=== PATIENT | female | born 1960 | race Hispanic/Latino ===

== ENCOUNTER 2018-08-13 17:45 | Emergency (ER) | payer MEDICAID, SELFPAY ==
[2018-08-13 17:45] VITALS: BP 135/81; PULSE 94; RESP 16; TEMP 36.8; O2SAT 97; BMI 43.4
[2018-08-13] MEDS: Mag Hydrox/Al Hydrox/Simeth 30 ML UDC PO (18:25)
[2018-08-13] MEDS: 0.9% Normal Saline 1,000 ML 1000 ML IV (18:25)
[2018-08-13] MEDS: Ondansetron 4 MG/2 ML Vial IV (18:25)
[2018-08-13 19:02] LABS: Absolute Lymphocyte Count 2.85 X10^3/ul (0.83-4.51); Absolute Neutrophil Count 4.1 X10^3/uL (2.0-7.7); Basophil# 0.02 X10^3/uL; Basophil% 0.3 % (0-1); Eosinophil# 0.27 X10^3/uL; Eosinophils% 3.4 % (0-5); Hemoglobin 14.2 g/dl (12.0-15.0); Lymphocyte # 2.85 X10^3/ul (4.0); Lymphocyte % 35.7 % (19-41); Mean Corp Hgb Conc 33.8 g/gl (32-36); Mean Corpuscular Hgb 29.7 pg (27.0-32.0); Mean Corpuscular Volume 87.9 fL (81-99); Mean Platelet Vol. 11.2 fl (6.2-12.0); Monocyte# 0.73 X10^3/uL; Monocyte% 9.1 % (0-10); Neutrophil % 51.2 % (47-70); Platelet Count 224 K/mm3 (150-450); RBC Distribution Width CV 13.9 % (11.6-14.6); RBC Distribution Width SD 44.6 fl (35.1-43.9); Red Blood Count 4.78 M/mm3 (4.2-5.4)
[2018-08-13 19:07] LABS: POSITIVE COUNT NO; POSITIVE DIFFERENTIAL NO; POSITIVE MORPHOLOGY NO
[2018-08-13 19:09] LABS: ALB/GLOB Ratio 0.8 RATIO (0.9-2.4); AST(SGOT) 16 U/L (15-37); Alanine Aminotransfer ALT/SGPT 21 U/L (13-56); Albumin, Serum 3.2 g/dL (3.2-5.0); Alkaline Phosphatase 148 U/L (45-117); Anion Gap 7 (5-15); BUN 11 mg/dL (7-18); BUN/Creat Ratio 10.3 RATIO (10-20); Calcium,Total 8.5 mg/dL (8.5-10.1); Chloride 110 mmol/L (98-107); Creatinine, Serum 1.07 mg/dL (0.55-1.02); EST Glomerular Filtration Rate 56 mL/min (>60); Est Glom Filt Rate - Afr Amer 68 mL/min (>60); Estimated Creatinine Clearance 42.67 ml/min; Globulin 4.1 g/dL (2.2-4.2); Glucose 97 mg/dL (74-106); Lipase 33 U/L (73-393); Potassium 3.8 mmol/L (3.5-5.1); Protein, Total 7.3 g/dL (6.4-8.2); Sodium Level 143 mmol/L (136-145)
[2018-08-13 19:56] VITALS: BP 120/68; PULSE 61; RESP 18; O2SAT 98
--- NOTE | 2018-09-17 06:56 | ED.DCSUM_ITS ---
- ER Visit Summary Date of Service: 08/13/18 Chief Complaint: Abdominal pain History of Present Illness: The patient is a 57 F with 3-month history of nausea vomiting, worse with foods and coffee. No fever or chills. No diarrhea or constipation. Physical Examination: She does not appear in significant distress, she has no respiratory distress with a regular rate. She has epigastric tenderness without any guarding or rebound no right upper quadrant pain. No CVA tenderness. Emergency Department Course and Treatment: Patient has an unremarkable work-up including CBC CMP. She received omeprazole and GI cocktail she is improved. We will discharge in stable condition. Disposition: Discharge stable condition Impression: [Gastritis] This note was generated with [facility] dictation software. It may contain incorrect words, spelling, and punctuation that were not noted in review of the chart prior to signing ED Disposition - Plan for ED Patient: Disposition: Home or Assisted Living Instructions: GASTRITIS (Adult) Prescriptions: Omeprazole 40 mg PO DAILY #30 capsule. Prescription Printed Referrals: Micki Seth MD [Primary Care Provider] - 3-5 Days
== END 2018-08-13 20:18 | disposition home or self-care (01) ==
PROVIDERS: Emergency Provider Emergency Medicine; Family Provider Internal Medicine; PCP Internal Medicine
DX: K29.70 Gastritis, unspecified, without bleeding (principal); R73.03 Prediabetes; F32.9 Major depressive disorder, single episode, unspecified; Z72.0 Tobacco use; Z79.899 Other long term (current) drug therapy
CPT/HCPCS: 80053; 83690; 85025; 96361; 96374; 99284; J7030; A4216; J2405

== ENCOUNTER → 2019-02-11 20:10 | Outpatient (CLI) | payer MEDICAID, SELFPAY | PROVIDERS: Family Provider Internal Medicine; PCP Internal Medicine | DX: G47.33 Obstructive sleep apnea (adult) (pediatric) (principal) | CPT/HCPCS: 95810 ==

== ENCOUNTER → 2019-04-09 20:00 | Outpatient (CLI) | payer MEDICAID, SELFPAY | PROVIDERS: Family Provider Internal Medicine; PCP Internal Medicine | DX: G47.33 Obstructive sleep apnea (adult) (pediatric) (principal) | CPT/HCPCS: 95811 ==

== ENCOUNTER 2019-04-10 08:23 | Emergency (ER) | payer MEDICAID, SELFPAY ==
[2019-04-10 08:24] VITALS: BP 128/80; PULSE 78; RESP 19; TEMP 36.6; O2SAT 97; BMI 46.8
--- NOTE | 2019-04-10 08:41 | CT_ITS ---
STUDY: CT ABDOMEN AND PELVIS WITHOUT CONTRAST REASON FOR EXAM: Female, 58 years old. Left flank pain, fever x 4 days. Prior hysterectomy, appendectomy, cholecystectomy. RADIATION DOSAGE (If Supplied By Facility): CTDIvol = ( 22.85 ) mGy, DLP = ( 1170.40 ) mGycm TECHNIQUE: Transaxial images were obtained from the dome of the diaphragm to the symphysis pubis without oral contrast, and without intravenous contrast. Sagittal and coronal images were reconstructed. Individualized dose optimization techniques were used for this CT. COMPARISON: Comparison is made with prior study dated March 24, 2015. FINDINGS: Calcified granuloma in the right lower lobe. Stable mild increased linear markings at the lung bases suggestive of linear atelectasis and/or scarring. The visualized portions of the heart are within normal limits. Normal liver. There are surgical clips in the gallbladder fossa consistent with a prior cholecystectomy. Normal spleen. Normal pancreas. Normal bilateral adrenal glands. Normal right kidney. Normal left kidney. Normal visualized stomach. Normal small intestine. There are multiple colonic diverticula consistent with diverticulosis. There are surgical clips in the region of the appendix consistent with a prior appendectomy. There is scattered atherosclerotic calcification of the abdominal aorta, without a demonstrated aneurysm. Normal inferior vena cava. Normal retroperitoneum. Normal urinary bladder. There is absence of the uterus consistent with a prior hysterectomy. There is evidence of prior anterior abdominal wall hernia repair utilizing mesh material. Mild degree of disc space narrowing at the L5-S1 level. CT/Abdomen/Pelvis without Cont IMPRESSION: No acute abnormality is seen. Electronically Signed: Kofi Venegas, at 9:58 EST , Service support ,
--- NOTE | 2019-04-10 08:42 | VDLE_ITS ---
Reason For Study: Pain Procedure LEFT Exam performed portable in ED. GSV is normal. A preliminary report was called and/or faxed CFV is compressible, spontaneous, phasic, to Fauzia. competent, and demonstrates normal augmentation. FV is compressible, spontaneous, phasic, competent and demonstrates normal augmentation. POP V is compressible, spontaneous, phasic, competent and demonstrates normal augmentation. T/P Trunk is compressible. PTV is compressible. LT PerV is compressible. Interpretation Summary There is no evidence of left lower extremity deep vein thrombosis. Left great saphenous vein appears patent and compressible segmentally. Ordering Physician: Dewey Cage Referring Physician: Leonid Rice M.D. Performed By: Delisa Jeong RVT
[2019-04-10 09:12] LABS: Absolute Lymphocyte Count 3.07 X10^3/uL (0.83-4.51); Basophil# 0.02 X10^3/uL; Basophil% 0.2 % (0-1); Eosinophil# 0.23 X10^3/uL; Eosinophils% 2.6 % (0-5); Hematocrit 43.4 % (37-47); Lymphocyte # 3.07 X10^3/ul (4.0); Lymphocyte % 34.3 % (19-41); Mean Corp Hgb Conc 32.3 g/dL (32-36); Mean Corpuscular Hgb 28.9 pg (27.0-32.0); Mean Corpuscular Volume 89.5 fL (81-99); Mean Platelet Vol. 10.7 fl (6.2-12.0); Monocyte# 0.61 X10^3/uL; Monocyte% 6.8 % (0-10); NRBC Flagged by Analyzer 0 % (0-5); Neutrophil # 4.96 X10^3/uL (2.7-7.7); Neutrophil % 55.5 % (47-70); Platelet Count 229 K/mm3 (150-450); RBC Distribution Width CV 13.4 % (11.6-14.6); RBC Distribution Width SD 43.8 fl (35.1-43.9); Red Blood Count 4.85 M/mm3 (4.2-5.4); White Blood Count 8.9 K/mm3 (4.4-11.0)
[2019-04-10 09:15] LABS: Glucose, Dipstick Normal (Normal); Ketone-Dipstick 5 mg/dl (Negative); Leukocyte Esterase-Dipstick 25 /ul (Negative); Nitrite-Dipstick Negative (Negative); Occult Blood-Urine Negative /ul (Negative); Protein-Dipstick 30 mg/dl (Negative); Specific Gravity, Urine 1.025 (1.002-1.030); Urine Urobilinogen 4 mg/dl (Normal)
[2019-04-10 09:16] LABS: Color, Urine Yellow (Yellow); Urine Bilirubin Dipstick 1 mg/dL (Negative); Urine Clarity Sl Cloudy (Clear)
[2019-04-10 09:21] LABS: Red Blood Cells-Urine 0-5 SEEN /hpf (0-5); Squamous Epithelial Cells - UA 0-5 SEEN /hpf (5-10); White Blood Cells 0-5 SEEN /hpf (0-5)
[2019-04-10 09:22] LABS: Bacteria RARE /hpf (None Seen); Calcium Oxalate Crystals Ur 1+ /hpf (<or=2+); Mucous, Urine 1+ /hpf (<or=2+)
[2019-04-10 09:24] LABS: Anion Gap 4 (5-15); BUN 12 mg/dL (7-18); BUN/Creat Ratio 11.2 RATIO (10-20); Calcium,Total 8.5 mg/dL (8.5-10.1); Chloride 111 mmol/L (98-107); Creatinine, Serum 1.07 mg/dL (0.55-1.02); EST Glomerular Filtration Rate 56 mL/min (>60); Est Glom Filt Rate - Afr Amer 68 mL/min (>60); Estimated Creatinine Clearance 42.17 ml/min; Glucose 124 mg/dL (74-106); Potassium 3.7 mmol/L (3.5-5.1); Sodium Level 139 mmol/L (136-145)
[2019-04-10] MEDS: 0.9% Normal Saline 1,000 ML 150 ML IV (09:59)
--- NOTE | 2019-04-10 10:23 | ED.DCSUM_ITS ---
- ER Visit Summary Date of Service: 04/10/19 Chief Complaint: [Left flank pain and left ankle pain] History of Present Illness: The patient is a 58 F [presents the emergency department complaint of left leg pain for about a week that she describes as painful and rates it a 9 out of 10. Patient states the pain is worse with movement. She denies any injury to her back. She denies any pain radiating down her legs. She denies any change in bowel or bladder function. Patient also complains of left ankle pain for about 5 days without any injury. She has had some chills at home and subjective fever. She denies any cough. She denies vomiting or diarrhea. She denies recent travel or surgery. Patient states that she had some blood work done on the of the month and was told that she had some kidney problems. Patient has history of asthma and history of being prediabetic. Patient has history of depression. Patient's had prior appendectomy, cholecystectomy, and hysterectomy.] Physical Examination: [HEENT-PERRLA, EOMI. Cranial nerves II through XII grossly intact. TMs clear. Mucous membranes moist. No adenopathy. Cardiovascular-regular rate and rhythm without murmur or ectopy Lungs-clear to auscultation, chest wall stable without crepitus or subcu emphysema Abdomen-normoactive bowel sounds, soft, nontender, no rebound or rigidity, no peritoneal signs. Patient does have some mild CVA tenderness on the left. Back exam-patient has no tenderness over the thoracic or lumbar spine. She has negative straight leg raises. Deep tendon reflexes are plus 2 out of 4 bilaterally at the patella and Achilles. Patient has normal 5 extension. Extremities-intact ?4, normal range of motion, normal pulses, atraumatic. Left ankle-there is no erythema or warmth. There is no ecchymosis or bruising. Patient has normal range of motion flexion extension of the ankle. She has some mild tenderness over the left calf with a positive Homans sign. No ropes or cords palpated.] Test Results: [CBC with differential obtained was normal. Chemistries unremarkable. Her BUN was 12 and creatinine 1.07. Urinalysis was normal. Patient had a venous duplex of the left lower extremity which showed no evidence for DVT. Patient is CT scan of the abdomen pelvis without contrast that showed nothing acute.] Emergency Department Course and Treatment: [] Treatment Plan: [She will be given a prescription for few [place] for severe pain. Patient advised to follow-up with her primary care physician in 5 to 7 days.] Disposition: [Discharged home in stable condition.] Impression: [Left flank pain-suspect musculoskeletal etiology Left ankle pain-etiology uncertain] This note was generated with [employer] dictation software. It may contain incorrect words, spelling, and punctuation that were not noted in review of the chart prior to signing ED Disposition - Plan for ED Patient: Referrals: Leonid Rice MD [Primary Care Provider] -
--- NOTE | 2019-04-10 10:26 | DCINST.ED_ITS ---
ED Disposition - Plan for ED Patient: Instructions: FLANK PAIN, Uncertain Cause Prescriptions: Hydrocodone Bitart/Apap 5-325 [[place] 5MG-325MG] 1 tablet PO Q4H PRN PRN 2 Days #10 tablet PRN Reason: Pain Transmission Status: Received by [facility] Referrals: Leonid Rice MD [Primary Care Provider] - 5-7 Days
--- NOTE | 2019-04-10 10:26 | ED.DEP ---
ED Disposition - Plan for ED Patient: Instructions: FLANK PAIN, Uncertain Cause Prescriptions: Hydrocodone Bitart/Apap 5-325 [[place] 5MG-325MG] 1 tablet PO Q4H PRN PRN 2 Days #10 tablet PRN Reason: Pain Transmission Status: Received by [facility] Referrals: Leonid Rice MD [Primary Care Provider] - 5-7 Days
[2019-04-10 10:31] VITALS: BP 122/70; O2SAT 98
== END 2019-04-10 10:38 | disposition home or self-care (01) ==
LOC: ED 09:11
PROVIDERS: Emergency Provider Emergency Medicine; PCP Internal Medicine
DX: R10.9 Unspecified abdominal pain (principal); M25.572 Pain in left ankle and joints of left foot; J45.909 Unspecified asthma, uncomplicated; R73.03 Prediabetes; F32.9 Major depressive disorder, single episode, unspecified; Z72.0 Tobacco use; Z79.899 Other long term (current) drug therapy; Z90.49 Acquired absence of other specified parts of digestive tract; Z90.710 Acquired absence of both cervix and uterus
CPT/HCPCS: 74176; 80048; 81001; 85025; 93971; 96360; 99284; J7030

== ENCOUNTER → 2019-04-25 10:48 | Outpatient (CLI) | payer MEDICAID, SELFPAY ==
[2019-04-10 08:24] VITALS: BMI 46.8
== END ==
PROVIDERS: PCP Internal Medicine
DX: Z46.89 Encounter for fitting and adjustment of other specified devices (principal)

== ENCOUNTER 2019-09-12 09:55 | Emergency (ER) | payer MEDICAID, SELFPAY ==
[2019-09-12 09:57] VITALS: BP 165/123; PULSE 121; RESP 18; TEMP 36.6; O2SAT 96; BMI 47.5
--- NOTE | 2019-09-12 10:27 | CT_ITS ---
STUDY: CT ABDOMEN AND PELVIS WITHOUT CONTRAST REASON FOR EXAM: Female, 58 years old. RECTAL PAIN/PRESSURE RADIATION DOSAGE (If Supplied By Facility): CTDIvol = ( 22.05 ) mGy, DLP = ( 1514.77 ) mGycm TECHNIQUE: Transaxial images were obtained from the dome of the diaphragm to the symphysis pubis without oral contrast, and without intravenous contrast. Sagittal and coronal images were reconstructed. Individualized dose optimization techniques were used for this CT. COMPARISON: Comparison is made with prior study dated April 10, 2019. FINDINGS: The visualized lung bases are unremarkable. The visualized portions of the heart are within normal limits. There is decreased attenuation of the liver consistent with steatosis. There are surgical clips in the gallbladder fossa consistent with a prior cholecystectomy. Normal spleen. Normal pancreas. Normal bilateral adrenal glands. Normal right kidney. Normal left kidney. Normal visualized stomach. Normal small intestine. There are scattered colonic diverticula consistent with diverticulosis. There are surgical clips in the region of the appendix consistent with a prior appendectomy. There is scattered atherosclerotic calcification of the abdominal aorta, without a demonstrated aneurysm. Normal inferior vena cava. Normal retroperitoneum. Normal urinary bladder. There is absence of the uterus consistent with a prior hysterectomy. Evidence of prior ventral hernia repair. Mild degree of disc space narrowing at the L5-S1 level. CT/Abdomen/Pelvis W IV Cont ONLY IMPRESSION: Fatty infiltration of the liver. Status post cholecystectomy and appendectomy. Electronically Signed: Kofi Venegas, at 12:35 EDT , Service support ,
[2019-09-12] MEDS: Morphine 4 MG/ML Syringe IV (10:46)
[2019-09-12] MEDS: Ondansetron 4 MG/2 ML Vial IV (10:46)
[2019-09-12 10:58] LABS: Mucous, Urine 0 SEEN /hpf (<or=2+)
[2019-09-12 11:02] LABS: Absolute Lymphocyte Count 3.12 X10^3/uL (0.83-4.51); Absolute Neutrophil Count 5.7 X10^3/uL (2.0-7.7); Basophil# 0.03 X10^3/uL; Basophil% 0.3 % (0-1); Eosinophil# 0.22 X10^3/uL; Eosinophils% 2.2 % (0-5); Hemoglobin 14.5 g/dL (12.0-15.0); Lymphocyte # 3.12 X10^3/ul (4.0); Lymphocyte % 31.5 % (19-41); Mean Corp Hgb Conc 32.2 g/dL (32-36); Mean Corpuscular Hgb 29.4 pg (27.0-32.0); Mean Corpuscular Volume 91.3 fL (81-99); Monocyte# 0.78 X10^3/uL; Monocyte% 7.9 % (0-10); NRBC Flagged by Analyzer 0 % (0-5); Neutrophil % 57.6 % (47-70); Platelet Count 237 K/mm3 (150-450); RBC Distribution Width CV 13.3 % (11.6-14.6); RBC Distribution Width SD 45.3 fl (35.1-43.9); Red Blood Count 4.93 M/mm3 (4.2-5.4); White Blood Count 9.9 K/mm3 (4.4-11.0)
[2019-09-12 11:24] LABS: Color, Urine Yellow (Yellow); Glucose, Dipstick Normal (Normal); Ketone-Dipstick 5 mg/dl (Negative); Leukocyte Esterase-Dipstick Negative /ul (Negative); Nitrite-Dipstick Negative (Negative); Occult Blood-Urine 10 /ul (Negative); Protein-Dipstick 15 mg/dl (Negative); Specific Gravity, Urine 1.025 (1.002-1.030); Urine Bilirubin Dipstick Negative (Negative); Urine Clarity Clear (Clear); Urine Urobilinogen 1 mg/dl (Normal)
[2019-09-12 11:28] LABS: ALB/GLOB Ratio 0.8 RATIO (0.9-2.4); AST(SGOT) 25 U/L (15-37); Alanine Aminotransfer ALT/SGPT 24 U/L (13-56); Albumin, Serum 3.4 g/dL (3.2-5.0); Alkaline Phosphatase 153 U/L (45-117); Anion Gap 5 (5-15); BUN 10 mg/dL (7-18); BUN/Creat Ratio 9.2 RATIO (10-20); Calcium,Total 8.8 mg/dL (8.5-10.1); Chloride 112 mmol/L (98-107); Creatinine, Serum 1.09 mg/dL (0.55-1.02); EST Glomerular Filtration Rate 55 mL/min (>60); Est Glom Filt Rate - Afr Amer 67 mL/min (>60); Globulin 4.2 g/dL (2.2-4.2); Glucose 146 mg/dL (74-106); Potassium 4.1 mmol/L (3.5-5.1); Protein, Total 7.6 g/dL (6.4-8.2); Sodium Level 141 mmol/L (136-145)
--- NOTE | 2019-09-12 11:48 | ED.VIS.GEN ---
History of Present Illness Chief Complaint: Other, Pain/Inj Detail of Chief Complaint: Rectal Pain Narrative: 58-year-old female with past medical history of COPD and GERD presents with concern for rectal pain. States is been present over the past 2 days. States has been sharp in nature. Denies any significant abdominal pain, nausea, vomiting. Having regular bowel movements as taking laxatives. Denies any hematochezia or melena. Denies any fever or chills. Denies any urinary symptoms or vaginal bleeding or discharge. Past Medical History - Allergies and Home Meds Allergies/Adverse Reactions: Allergies latex Allergy (Verified 09/12/19 09:59) Rash Primary Care Physician: Leonid Rice MD [Primary Care Provider] - Prior records reviewed: Yes Past Medical History: - - GERD and COPD Surgical History: appendectomy, cholecystectomy, hysterectomy Lives: With Family Smoking Status: Current every day smoker Alcohol: None Drugs: None Review of Systems General: Denies: Chills, Fever, Sweats Eyes: Denies: Visual changes - bilaterally, Diplopia ENT: Denies: Rhinorrhea, Sore throat Cardiovascular: Denies: Chest pain, Palpitations Respiratory: Denies: Dyspnea, Cough, Dyspnea on exertion Gastrointestinal: Reports: - - rectal pain. Denies: Abdominal pain, Nausea, Vomiting, Diarrhea, Melena, Hematochezia Genitourinary: Denies: Dysuria, Hematuria, Frequency Musculoskeletal: Denies: Back pain, Extremity Pain Skin: Denies: Rash, Wounds Neurological: Denies: Headache, Weakness, Numbness Physical Exam Vital Signs/Narrative: Vital Signs Temp Pulse Resp BP Pulse Ox 09/12/19 09:57 97.9 F 121 H 18 165/123 H 96 Inital Vital Signs reviewed: Yes General: Well nourished, Well developed, No Acute Distress Head: Normocephalic, Atraumatic Eyes: Perrl, EOMI ENT: Moist mucous membranes, No rhinorrhea Neck: Supple, Nontender Cardiovascular: Regular rate, Regular rhythm, No murmurs Respiratory: No distress, CTA bilaterally, Chest nontender Abdomen: Soft, Nontender, Nondistended, Normal bowel sounds Rectal: - - Tenderness to the perirectal area with multiple non-thrombosed hemmorhoids. No drainage or surrounding erythema. No rectal prolapse. Back: Nontender, Normal Inspection Extremities: Nontender, No edema Skin: Normal color, No rash Neurological: Alert, Oriented x3, Cranial nerves II-XII grossly intact, Normal Strength, Normal Sensation Psychological: Normal affect, Normal Mood Diagnostic/Tx/Re-eval Clinical Impression(s) from Imaging Studies Abdomen/Pelvis CT 09/12/19 10:27 IMPRESSION: Fatty infiltration of the liver. Status post cholecystectomy and appendectomy. Electronically Signed: Kofi Venegas, at 12:35 EDT , Service support , Laboratory Data 09/12/19 09/12/19 09/12/19 10:45 10:45 10:45 WBC 9.9 RBC 4.93 Hgb 14.5 Hct 45.0 MCV 91.3 MCH 29.4 MCHC 32.2 RDW Std Deviation 45.3 H RDW Coeff of Bhupendra 13.3 Plt Count 237 MPV 11.0 Immature Gran % (Auto) 0.500 Neut % (Auto) 57.6 Lymph % (Auto) 31.5 Coleman % (Auto) 7.9 Eos % (Auto) 2.2 Baso % (Auto) 0.3 Absolute Neuts (auto) 5.7 Absolute Lymphs (auto) 3.12 Nucleated RBC % 0 Sodium 141 Potassium 4.1 Chloride 112 H Carbon Dioxide 24.0 Anion Gap 5 BUN 10 Creatinine 1.09 H Estim Creat Clear Calc 41.40 Est GFR (MDRD) Af Amer 67 Est GFR (MDRD) Non-Af 55 L BUN/Creatinine Ratio 9.2 L Glucose 146 H Calcium 8.8 Total Bilirubin 0.30 AST 25 ALT 24 Alkaline Phosphatase 153 H Total Protein 7.6 Albumin 3.4 Globulin 4.2 Albumin/Globulin Ratio 0.8 L Urine Color Yellow Urine Clarity Clear Urine pH 5.0 Ur Specific [place] 1.025 Urine Protein 15 H Urine Glucose (UA) Normal Urine Ketones 5 H Urine Occult Blood 10 H Urine Nitrite Negative Urine Bilirubin Negative Urine Urobilinogen 1 H Ur Leukocyte Esterase Negative Urine RBC 0-5 SEEN Urine WBC 0-5 SEEN Ur Squamous Epith Cells 0-5 SEEN Urine Bacteria 2+ Urine Mucus 0 SEEN - Medical Decision Making Having mild to moderate rectal pain. On palpation of the area there is evidence of external hemorrhoids. Patient's lab work is fairly unremarkable. CT shows no acute process. Patient does follow with a medication administration professional. Patient's daughter arrived who was able to act as an intermediary helping with language barrier. They are working on whether to repeat a anoscopy or evaluate different surgical intervention. Patient will be given Anusol. She also be switched to Pepcid from Protonix given concern that this is constipating her. Advised to continue her stool softener. Asked to return for new or worsening symptoms. Patient voiced understanding as well as daughter. Discharged home in stable condition. ED Disposition - Plan for ED Patient: Disposition: Home or Assisted Living Diagnosis: Acute hemorrhoid Instructions: ED Hemorrhoids Prescriptions: Hydrocortisone Acetate Cream [Anusol Hc] 1 applic TOPICAL TID PRN PRN #1 tube PRN Reason: Rectal Discomfort Transmission Status: Pending to [facility] [address] Famotidine [Pepcid] 20 mg PO BID #20 tab Transmission Status: Pending to BRU[facility] Referrals: Leonid Rice MD [Primary Care Provider] -
[2019-09-12 11:49] LABS: Bacteria 2+ /hpf (None Seen); Red Blood Cells-Urine 0-5 SEEN /hpf (0-5); Squamous Epithelial Cells - UA 0-5 SEEN /hpf (5-10); White Blood Cells 0-5 SEEN /hpf (0-5)
[2019-09-12 12:49] VITALS: BP 126/84; PULSE 73; RESP 16; O2SAT 96
== END 2019-09-12 12:54 | disposition home or self-care (01) ==
PROVIDERS: Emergency Provider Emergency Medicine; PCP Internal Medicine
DX: K64.4 Residual hemorrhoidal skin tags (principal); J44.9 Chronic obstructive pulmonary disease, unspecified; K21.9 Gastro-esophageal reflux disease without esophagitis; F17.200 Nicotine dependence, unspecified, uncomplicated; Z91.040 Latex allergy status; Z79.899 Other long term (current) drug therapy
CPT/HCPCS: 74177; 80053; 81001; 85025; 96374; 96375; 99283; Q9967; J2405

== ENCOUNTER 2019-09-28 16:38 | Emergency (ER) | payer MEDICAID, SELFPAY ==
[2019-09-28 16:41] VITALS: BP 135/96; PULSE 92; RESP 18; TEMP 36.6; O2SAT 96; BMI 48.4
--- NOTE | 2019-09-28 16:50 | EKG12_ITS ---
Test Reason : LEFT-SIDED PAIN Blood Pressure : / mmHG Vent. Rate : 084 BPM Atrial Rate : 084 BPM P-R Int : 162 ms QRS Dur : 086 ms QT Int : 380 ms P-R-T Axes : 039 000 041 degrees QTc Int : 449 ms Normal sinus rhythm Normal ECG Confirmed by EULALIA MCCOY, DARRION ([id number]), video news editor FABIENNE PINEDA ([id number]) on 10/01/2019 9:27:26 AM Referred By: FREDRICK Confirmed By:DARRION ESTEBAN MD
--- NOTE | 2019-09-28 16:52 | ED.VIS.GEN ---
History of Present Illness Chief Complaint: Chest Pain Detail of Chief Complaint: Left arm pain, left lateral chest pain Informant: Patient Onset: Days - 3 to 4 days Context: Gradual Onset Timing: Waxes and wanes Current Severity: Moderate Maximum Severity: Moderate Narrative: Patient presents with a 3 to 4-day history of pain throughout her left arm and on the left lateral side of her chest. She denies any known injury. She denies shortness of breath or cough. She is right-hand dominant. No fevers or chills. - Past Medical History (1) Asthma Status: Chronic (2) Anxiety and depression Status: Chronic Past Medical History - Allergies and Home Meds Allergies/Adverse Reactions: Allergies latex Allergy (Verified 09/28/19 16:43) Rash Primary Care Physician: Leonid Rice MD [Primary Care Provider] - Surgical History: appendectomy, cholecystectomy, hysterectomy Lives: Alone Smoking Status: Current every day smoker Review of Systems General: Denies: Chills, Fever Eyes: Denies: Visual changes - bilaterally ENT: Denies: Bilateral ear pain Cardiovascular: Reports: Chest pain Respiratory: Denies: Dyspnea, Cough Gastrointestinal: Denies: Abdominal pain, Nausea, Vomiting, Diarrhea Genitourinary: Denies: Dysuria Musculoskeletal: Reports: Extremity Pain. Denies: Swelling Skin: Denies: Rash Neurological: Denies: Weakness, Parasthesia, Numbness Hematologic: Denies: Easy bruising, Easy bleeding Allergy: Denies: Uticaria Physical Exam Vital Signs/Narrative: Vital Signs Temp Pulse Resp BP Pulse Ox 09/28/19 16:41 97.9 F 92 18 135/96 H 96 Inital Vital Signs reviewed: Yes General: Well nourished, Well developed Head: Normocephalic ENT: Moist mucous membranes Neck: Supple Cardiovascular: Regular rate, Regular rhythm Respiratory: No distress, CTA bilaterally, Chest tenderness - Reproducible chest wall tenderness of the left lateral chest wall. No overlying skin changes. No crepitus. Abdomen: Soft, Nontender Extremities: - - Diffuse muscular tenderness throughout the left upper extremity. No significant edema. Strong distal pulses. Strong hand grasp. No erythema or overlying skin change. Skin: Normal color Neurological: Alert, Oriented x3, Normal Strength, Normal Sensation Psychological: Normal affect Diagnostic/Tx/Re-eval Impressions Chest X-Ray 09/28/19 17:50 IMPRESSION: Mild bilateral lower lobe pulmonary edema Electronically Signed: Mendel Hickey MD at 18:32 EDT , Service support , Forearm X-Ray 09/28/19 17:50 IMPRESSION: 1. small cortical spur of the olecranon process Electronically Signed: Mendel Hickey MD at 18:34 EDT , Service support , Humerus X-Ray 09/28/19 17:50 IMPRESSION: 1. Normal x-ray examination of the humerus. 2. The glenohumeral articulation is moderate narrowed. Electronically Signed: Mendel Hickey MD at 18:33 EDT , Service support , 09/28/19 17:50 Chest 1 View (Portable) [RAD] Stat Forearm 2 Views [RAD] Stat Humerus min 2 Views [RAD] Stat Laboratory Results 09/28/19 09/28/19 09/28/19 16:57 16:57 16:57 WBC 9.9 RBC 4.49 Hgb 13.4 Hct 40.9 MCV 91.1 MCH 29.8 MCHC 32.8 RDW Std Deviation 44.3 H RDW Coeff of Bhupendra 13.5 Plt Count 214 MPV 10.5 Immature Gran % (Auto) 0.500 Neut % (Auto) 57.9 Lymph % (Auto) 29.8 [place] % (Auto) 8.5 Eos % (Auto) 2.9 Baso % (Auto) 0.4 Absolute Neuts (auto) 5.8 Absolute Lymphs (auto) 2.96 Nucleated RBC % 0 D-Dimer Quant (PE/DVT) Sodium 141 Potassium 3.5 Chloride 110 H Carbon Dioxide 24.0 Anion Gap 7 BUN 12 Creatinine 1.13 H Estim Creat Clear Calc 39.93 Est GFR (MDRD) Af Amer 64 Est GFR (MDRD) Non-Af 53 L BUN/Creatinine Ratio 10.6 Glucose 131 H Calcium 8.5 Total Creatine Kinase 84 Troponin I < 0.015 09/28/19 17:15 WBC RBC Hgb Hct MCV MCH MCHC RDW Std Deviation RDW Coeff of Bhupendra Plt Count MPV Immature Gran % (Auto) Neut % (Auto) Lymph % (Auto) [place] % (Auto) Eos % (Auto) Baso % (Auto) Absolute Neuts (auto) Absolute Lymphs (auto) Nucleated RBC % D-Dimer Quant (PE/DVT) 0.38 Sodium Potassium Chloride Carbon Dioxide Anion Gap BUN Creatinine Estim Creat Clear Calc Est GFR (MDRD) Af Amer Est GFR (MDRD) Non-Af BUN/Creatinine Ratio Glucose Calcium Total Creatine Kinase Troponin I - EKG Initial EKG Interpretation: Sinus Rhythm - Sinus 84 with no acute ischemia. - Medical Decision Making Patient was given morphine and Zofran on arrival for pain. On repeat evaluation she is resting comfortably. Test results are discussed with her. Patient has reproducible tenderness over the left lateral chest and throughout her left arm. My suspicion is this is musculoskeletal in nature. Cardiac enzymes and d-dimer are both negative despite 3 to 4 days of pain. She be given anti-inflammatories will follow-up with her doctor on Monday as scheduled. ED Disposition - Plan for ED Patient: Disposition: Home or Assisted Living Diagnosis: Chest wall pain, Musculoskeletal arm pain Instructions: ED Strain Chest Wall Prescriptions: Naproxen [Naprosyn] 500 mg PO BID PRN #14 tab PRN Reason: Pain Score 4-10/10 Transmission Status: Pending to [facility] Referrals: Leonid Rice MD [Primary Care Provider] - Keep Sangeeta appointment
[2019-09-28 17:13] LABS: Absolute Lymphocyte Count 2.96 X10^3/uL (0.83-4.51); Absolute Neutrophil Count 5.8 X10^3/uL (2.0-7.7); Basophil# 0.04 X10^3/uL; Basophil% 0.4 % (0-1); Eosinophil# 0.29 X10^3/uL; Eosinophils% 2.9 % (0-5); Hematocrit 40.9 % (37-47); Hemoglobin 13.4 g/dL (12.0-15.0); Lymphocyte # 2.96 X10^3/ul (4.0); Lymphocyte % 29.8 % (19-41); Mean Corp Hgb Conc 32.8 g/dL (32-36); Mean Corpuscular Hgb 29.8 pg (27.0-32.0); Mean Corpuscular Volume 91.1 fL (81-99); Mean Platelet Vol. 10.5 fl (6.2-12.0); Monocyte# 0.84 X10^3/uL; Monocyte% 8.5 % (0-10); NRBC Flagged by Analyzer 0 % (0-5); Neutrophil # 5.76 X10^3/uL (2.7-7.7); Neutrophil % 57.9 % (47-70); Platelet Count 214 K/mm3 (150-450); RBC Distribution Width CV 13.5 % (11.6-14.6); RBC Distribution Width SD 44.3 fl (35.1-43.9); Red Blood Count 4.49 M/mm3 (4.2-5.4); White Blood Count 9.9 K/mm3 (4.4-11.0)
[2019-09-28 17:31] LABS: Anion Gap 7 (5-15); BUN 12 mg/dL (7-18); BUN/Creat Ratio 10.6 RATIO (10-20); Calcium,Total 8.5 mg/dL (8.5-10.1); Chloride 110 mmol/L (98-107); Creatinine, Serum 1.13 mg/dL (0.55-1.02); EST Glomerular Filtration Rate 53 mL/min (>60); Est Glom Filt Rate - Afr Amer 64 mL/min (>60); Estimated Creatinine Clearance 39.93 ml/min; Glucose 131 mg/dL (74-106); Potassium 3.5 mmol/L (3.5-5.1); Sodium Level 141 mmol/L (136-145)
[2019-09-28] MEDS: Ondansetron 4 MG/2 ML Vial IV (17:33)
[2019-09-28] MEDS: 0.9% Normal Saline 1,000 ML 150 ML IV (17:33)
[2019-09-28] MEDS: Morphine 4 MG/ML Syringe IV (17:33)
[2019-09-28 17:36] LABS: CPK Total, Creatine Kinase 84 U/L (26-192)
[2019-09-28 17:41] LABS: D-Dimer Quantitative (DVT/PE) 0.38 FEU/ug/m (0.27-0.49)
--- NOTE | 2019-09-28 17:50 | RAD_ITS ---
STUDY: X-RAY - LEFT HUMERUS REASON FOR EXAM: Female, 58 years old. Left arm pain x 4 days. Denies injury. TECHNIQUE: 2 view(s) of the humerus. COMPARISON: None. FINDINGS: Normal visualized humerus. There is no demonstrated fracture or osseous destructive process. The glenohumeral articulation is moderately narrowed. There is no demonstrated soft tissue abnormality. RAD/Humerus min 2 Views IMPRESSION: 1. Normal x-ray examination of the humerus. 2. The glenohumeral articulation is moderate narrowed. Electronically Signed: Mendel Hickey MD at 18:33 EDT , Service support ,
--- NOTE | 2019-09-28 17:50 | RAD_ITS ---
STUDY: X-RAY CHEST REASON FOR EXAM: Female, 58 years old. Left arm and breast pain x 4 days. Denies injury. TECHNIQUE: Single AP portable view of the chest. COMPARISON: March 24, 2015 FINDINGS: Mild pulmonary edema is seen in the bilateral lower lobes. No visualized consolidation. There is no demonstrated pleural abnormality. Normal size heart. Stable visualized osseous structures. RAD/Chest 1 View (Portable) IMPRESSION: Mild bilateral lower lobe pulmonary edema Electronically Signed: Mendel Hickey MD at 18:32 EDT , Service support ,
--- NOTE | 2019-09-28 17:50 | RAD_ITS ---
STUDY: X-RAY - LEFT RADIUS AND ULNA REASON FOR EXAM: Female, 58 years old. Left arm pain x 4 days. Denies injury. TECHNIQUE: 2 view(s) of the forearm. COMPARISON: None. FINDINGS: There is no demonstrated soft tissue swelling. Normal visualized radius. Normal visualized ulna. There is no demonstrated acute fracture. A small cortical spur of the olecranon process is present. RAD/Forearm 2 Views IMPRESSION: 1. small cortical spur of the olecranon process Electronically Signed: Mendel Hickey MD at 18:34 EDT , Service support ,
[2019-09-28 18:46] VITALS: BP 118/83; PULSE 69; PULSE 72; RESP 15; RESP 18; O2SAT 95
== END 2019-09-28 18:49 | disposition home or self-care (01) ==
PROVIDERS: Emergency Provider Emergency Medicine; PCP Internal Medicine
DX: R07.89 Other chest pain (principal); M79.602 Pain in left arm; J45.909 Unspecified asthma, uncomplicated; F32.9 Major depressive disorder, single episode, unspecified; F41.9 Anxiety disorder, unspecified; F17.200 Nicotine dependence, unspecified, uncomplicated; Z79.899 Other long term (current) drug therapy; Z90.49 Acquired absence of other specified parts of digestive tract; Z90.710 Acquired absence of both cervix and uterus
CPT/HCPCS: 36415; 71045; 73060; 73090; 80048; 82550; 84484; 85025; 85379; 93005; 96361; 96374; 96375; 99284; J7030; A4216; J2405

== ENCOUNTER 2020-07-28 14:51 | Emergency (ER) | payer MEDICAID, SELFPAY ==
[2020-07-28 14:51] VITALS: BP 147/82; PULSE 106; RESP 15; TEMP 35.7; O2SAT 96; BMI 46.8
--- NOTE | 2020-07-28 14:54 | RAD_ITS ---
STUDY: X-RAY - LEFT SCAPULA REASON FOR EXAM: Female, 59 years old. INJURY TECHNIQUE: 3 view(s) of the scapula were obtained. COMPARISON: None. FINDINGS: Unusual appearance to the body the scapula possibly from fracture. Correlation with CT would be useful Normal glenohumeral articulation. Normal acromioclavicular joint. Normal visualized humeral head. Normal visualized pulmonary apex. RAD/Scapula IMPRESSION: Questional fracture the body the scapula and correlation with CT would be useful. Electronically Signed: Kentrell Altman MD at 15:52 EDT Tel , Service support ,
--- NOTE | 2020-07-28 15:40 | EDS_ITS ---
HPI History of Present Illness Chief Complaint: Upper Extremity Injury Narrative Narrative: 59-year-old female presents with left posterior shoulder pain that is been present for approximately 1 month. States that she is visiting her daughter in [place] when she slipped off a step and went to catch herself. States she felt like she strained the back of her shoulder. Has been seen at [facility] with a negative x-ray. Has been taking Tylenol at home without relief. Denies any other injury to this area. Has an appointment with her primary care physician in 2 days. [facility] Medical History Anxiety Asthma Depression GERD (gastroesophageal reflux disease) Home Medications alprazolam [Xanax] 1 mg PO QHS 06/06/14 [History Last Taken 03/23/15] fluoxetine 40 mg PO QHS 03/24/15 [History Last Taken 03/23/15] topiramate [Topamax] 25 mg PO QHS 03/24/15 [History Last Taken 03/23/15] trazodone 200 mg PO QHS 03/24/15 [History Last Taken 03/23/15] albuterol sulfate [ProAir HFA] 2 puff INHALATION Q4H PRN PRN #1 inhaler 03/25/15 [Rx Last Taken Unknown] budesonide [Pulmicort Flexhaler] 1 puff INHALATION BID #1 inhaler 03/25/15 [Rx Last Taken Unknown] omeprazole 20 mg PO DAILY #30 capsule 03/25/15 [Rx Last Taken Unknown] omeprazole 40 mg PO DAILY #30 capsule. 08/13/18 [Rx Last Taken Unknown] famotidine 20 mg PO BID #20 tab 09/12/19 [Rx Last Taken Unknown] hydrocortisone 1 applic TOPICAL TID PRN PRN #1 tube 09/12/19 [Rx Last Taken Unknown] naproxen 500 mg PO BID PRN #14 tab 09/28/19 [Rx Last Taken Unknown] lidocaine [Lidoderm] 1 patch TOPICAL DAILY #7 ea 07/28/20 [Rx Last Taken Unknown] naproxen 500 mg PO BID PRN #14 tab 07/28/20 [Rx Last Taken Unknown] Allergy/AdvReac Type Severity Reaction Status Date / Time latex Allergy Rash Verified 09/28/19 16:43 Social History Smoking Status: Former smoker ROS ROS ED Constitutional Constitutional ED: Denies chills, fever(s) or sweats Eyes Eyes: Denies blurry vision, change in vision or diplopia ENT ENT ED: Denies rhinorrhea or sore throat Cardiovascular Cardiovascular: Denies chest pain, orthopnea, palpitations or racing heartbeat Respiratory/Chest Respiratory/Chest: Denies cough, dyspnea, dyspnea on exertion, orthopnea or sputum Gastrointestinal Gastrointestinal: Denies abdominal pain, constipation, diarrhea, melena, nausea or vomiting Genitourinary Genitourinary ED: Denies dysuria, hematuria or urinary frequency Musculoskeletal Musculoskeletal: Reports other Details: left shoulder pain ; Denies arthralgias, myalgias or neck pain Integumentary Denies rash Neurologic Neurologic: Denies headache(s), paresthesias or weakness Psychiatric Psychiatric: Denies anxiety or depression Hematologic/Lymphatic Hematologic/Lymphatic: Denies easy bleeding or easy bruising Allergic/Immunologic Allergic/Immunologic ED: Denies mouth swelling or tongue swelling EXAM Physical Exam Const Vital Signs: 07/28/20 14:51 Temperature 96.3 F L Temperature Source Temporal Pulse Rate 106 H Respiratory Rate 15 Blood Pressure 147/82 H Blood Pressure Mean 103 Pulse Ox 96 Oxygen Delivery Method Room Air Positive well nourished and well developed General Appearance ED: well developed HEENT Reports TM's clear and moist mucous membranes normocephalic and atraumatic Tympanic Membrane ED: Yes TM's clear Eyes PERRL and EOMs intact bilaterally Neck no lymphadenopathy, supple and no JVD Chest Wall inspection of chest normal Resp normal respiratory effort and clear to auscultation bilaterally Cardio regular rate, S1 normal heart sound, S2 normal heart sound and no murmurs Peripheral Pulses: pulses 2+ throughout GI soft to palpation, non-tender and non-distended Back/Spine no CVA tenderness and no thoracic nor lumbar tenderness Extremity normal to inspection Extremity Narrative: Tenderness to palpation over the posterior shoulder including the scapular region. No overlying skin changes. Strong and palpable radial and brachial pulses. Sensation intact. General Extremety ED: Negative for edema or tenderness General Extremity: Negative for edema Neuro oriented x3, CN's II-XII intact bilaterally and no sensory deficits noted Sensorium / Orientation: alert Motor Exam: strength 5/5 throughout Psych mental status grossly normal Skin no rashes or lesions noted MDM MDM MDM Narrative Medical decision making narrative: Patient appears well nontoxic. Given Toradol and Lidoderm patch for her pain. Scapular x-ray ordered in triage which showed a questionable fracture. CT of the chest was done which confirms no fracture. Patient be given Lidoderm and Naprosyn for home. Patient has appointment in 2 days with her primary care physician. Advised on possible PT as an outpatient. Stable at time of discharge. Lab Data Attestation: I reviewed the patient's lab results. Discharge Plan Triage Chief Complaint: Upper Extremity Injury ED Provider: Dread Hall Dx/Rx/DC Orders Clinical Impression: Left shoulder strain Instructions: ED Shoulder Pain, Uncertain Cause Prescriptions: New naproxen 500 mg tablet 500 mg PO BID PRN Qty: 14 RF: 0 lidocaine [Lidoderm] 5 % adhesive patch,medicated 1 patch topical DAILY Qty: 7 RF: 0 No Action alprazolam [Xanax] 2 MG tablet 1 mg PO QHS RF: 0 topiramate [Topamax] 25 MG tablet 25 mg PO QHS RF: 0 fluoxetine 20 MG capsule 40 mg PO QHS RF: 0 trazodone 100 MG tablet 200 mg PO QHS RF: 0 budesonide [Pulmicort Flexhaler] 1 PUFF inhaler 1 puff inhalation BID Qty: 1 RF: 0 omeprazole 20 MG capsule 20 mg PO DAILY Qty: 30 RF: 0 albuterol sulfate [ProAir HFA] 1 PUFF inhaler 2 puff inhalation Q4H PRN PRN (Reason: Sob &/Or Wheezing) Qty: 1 RF: 0 omeprazole 40 MG capsule,delayed release(DR/EC) 40 mg PO DAILY Qty: 30 RF: 0 hydrocortisone 1 APPLIC cream with perineal applicator 1 applic topical TID PRN PRN (Reason: Rectal Discomfort) Qty: 1 RF: 0 famotidine 20 MG tablet 20 mg PO BID Qty: 20 RF: 0 naproxen 500 MG tablet 500 mg PO BID PRN (Reason: Pain Score 4-10/10) Qty: 14 RF: 0 Primary Care Provider: Leonid Rice Referrals: Leonid Rice MD [Primary Care Provider] - 2 Days Disposition Disposition: Home, self care
[2020-07-28] MEDS: Lidocaine 5% Patch 1 PATCH TOPICAL (16:08)
[2020-07-28] MEDS: Ketorolac 15 MG/ML Vial IM (16:08)
--- NOTE | 2020-07-28 16:28 | CT_ITS ---
STUDY: CT CHEST WITHOUT CONTRAST REASON FOR EXAM: Female, 59 years old. left scapula pain RADIATION DOSAGE (If Supplied By Facility): CTDIvol = ( 19.65 ) mGy, DLP = ( 633.48 ) mGycm TECHNIQUE: Transaxial imaging was performed without the administration of intravenous contrast material. Individualized dose optimization techniques were used for this CT. COMPARISON: None. FINDINGS: The lungs are normal. There is no demonstrated pleural abnormality. Normal heart and pericardium. Normal mediastinum. Normal hilar regions. Normal unenhanced pulmonary arteries. Normal aorta arch and descending thoracic aorta. Normal osseous structures. There is no demonstrated abnormality of the visualized upper abdomen. CT/Chest without Contrast IMPRESSION: Normal unenhanced CT Chest examination. No left scapular fracture. Electronically Signed: Kentrell Altman MD at 17:03 EDT Tel , Service support ,
[2020-07-28 17:36] VITALS: BP 133/74; PULSE 86; RESP 16; O2SAT 95
== END 2020-07-28 17:37 | disposition home or self-care (01) ==
PROVIDERS: Emergency Provider Emergency Medicine; PCP Internal Medicine
DX: S46.912A Strain of unspecified muscle, fascia and tendon at shoulder and upper arm level, left arm, initial encounter (principal); W18.40XA Slipping, tripping and stumbling without falling, unspecified, initial encounter; Y93.9 Activity, unspecified; Y92.9 Unspecified place or not applicable; Y99.9 Unspecified external cause status; J45.909 Unspecified asthma, uncomplicated; K21.9 Gastro-esophageal reflux disease without esophagitis; F32.9 Major depressive disorder, single episode, unspecified; F41.9 Anxiety disorder, unspecified; Z79.51 Long term (current) use of inhaled steroids; Z79.899 Other long term (current) drug therapy; Z87.891 Personal history of nicotine dependence
CPT/HCPCS: 71250; 73010; 96372; 99282

== ENCOUNTER 2020-09-02 21:53 | Emergency (ER) | payer MEDICAID, SELFPAY ==
[2020-09-02 21:54] VITALS: BP 135/69; PULSE 84; RESP 18; TEMP 36.2; O2SAT 96; BMI 40.7
--- NOTE | 2020-09-02 21:57 | RAD_ITS ---
HISTORY: PAIN EXAMINATION/TECHNIQUE: XR Shoulder Min 2 Views: COMPARISON: None FINDINGS: BONES/JOINTS: No acute fracture or dislocation. Mild degenerative changes at the acromioclavicular joint. No sclerotic or destructive changes observed. SOFT TISSUES: No soft tissue swelling or gas. No radiopaque foreign body. RAD/Shoulder min 2 Views IMPRESSION: Degenerative changes without acute bony abnormality. at 2307 Reported and signed by: Ha Patel MD Electronically Signed: Ha Patel MD at 23:06 EDT Tel , Service support ,
--- NOTE | 2020-09-02 21:58 | RAD_ITS ---
HISTORY: PAIN COMPARISON: None FINDINGS: # of images incl. paperwork: 3 XR Elbow 2 Views: 3 views SOFT TISSUES: There is no displacement of the anterior or posterior fat pads. No radiopaque foreign body. BONES: No acute fracture or subluxation. Small osteophytes at the olecranon process and lateral radial head. JOINTS: Preservation of the joint spaces. RAD/Elbow min 3 Views IMPRESSION: No acute bony injury. at 2305 Reported and signed by: Ha Patel MD Electronically Signed: Ha Patel MD at 23:04 EDT Tel , Service support ,
--- NOTE | 2020-09-02 23:30 | EDS_ITS ---
HPI History of Present Illness HPI Narrative: [id number] presents with left shoulder and elbow pain for the past couple months. States that injury while she is in [place] when she was pulling stuff out of a dryer. Here with her friend that is translating. Patient does speak Citizen [place] also. Denies any new injuries. States all her PCP Dr. Rice was placed on the medication that she cannot recall however she stopped taking it. She is going through physical therapy due to pain she stopped going. She has a follow-up with the nurse practitioner in 5 days. She was not referred to orthopedics. Denies any previous similar incidents in the past. Denies history of gastric ulcers or kidney injury. Chief Complaint: Upper Extremity Injury Informant: patient and friend Narrative Prior similar symptoms: No PFSH PFSH Medical History Anxiety Asthma Depression GERD (gastroesophageal reflux disease) Home Medications alprazolam [Xanax] 1 mg PO QHS 06/06/14 [History Last Taken 03/23/15] fluoxetine 40 mg PO QHS 03/24/15 [History Last Taken 03/23/15] topiramate [Topamax] 25 mg PO QHS 03/24/15 [History Last Taken 03/23/15] trazodone 200 mg PO QHS 03/24/15 [History Last Taken 03/23/15] albuterol sulfate [ProAir HFA] 2 puff INHALATION Q4H PRN PRN #1 inhaler 03/25/15 [Rx Last Taken Unknown] budesonide [Pulmicort Flexhaler] 1 puff INHALATION BID #1 inhaler 03/25/15 [Rx Last Taken Unknown] omeprazole 20 mg PO DAILY #30 capsule 03/25/15 [Rx Last Taken Unknown] omeprazole 40 mg PO DAILY #30 capsule. 08/13/18 [Rx Last Taken Unknown] famotidine 20 mg PO BID #20 tab 09/12/19 [Rx Last Taken Unknown] hydrocortisone 1 applic TOPICAL TID PRN PRN #1 tube 09/12/19 [Rx Last Taken Unknown] naproxen 500 mg PO BID PRN #14 tab 09/28/19 [Rx Last Taken Unknown] lidocaine [Lidoderm] 1 patch TOPICAL DAILY #7 ea 07/28/20 [Rx Last Taken Unknown] naproxen 500 mg PO BID PRN #14 tab 07/28/20 [Rx Last Taken Unknown] ibuprofen 600 mg PO Q6H PRN PRN #20 tab 09/02/20 [Rx Last Taken Unknown] Allergy/AdvReac Type Severity Reaction Status Date / Time latex Allergy Rash Verified 09/02/20 21:56 Social History Smoking Status: Current every day smoker tobacco type: cigarettes ROS ROS ED Constitutional Constitutional ED: Denies chills, fever(s) or sweats Eyes Eyes: Denies change in vision ENT ENT ED: Denies dysphagia or sore throat Cardiovascular Cardiovascular: Denies chest pain, leg edema, palpitations or racing heartbeat Respiratory/Chest Respiratory/Chest: Denies cough, dyspnea or dyspnea on exertion Gastrointestinal Gastrointestinal: Denies abdominal pain, diarrhea, nausea or vomiting Genitourinary Genitourinary ED: Denies dysuria, hematuria or urinary frequency Musculoskeletal Musculoskeletal: Reports other Details: Left shoulder and elbow pain ; Denies back pain, extremity pain or neck pain Integumentary Denies rash or wounds Neurologic Neurologic: Denies headache(s), paresthesias or weakness EXAM Physical Exam Const Vital Signs: 09/02/20 21:54 Temperature 97.1 F L Temperature Source Temporal Pulse Rate 84 Respiratory Rate 18 Blood Pressure 135/69 H Blood Pressure Mean 91 Pulse Ox 96 Oxygen Delivery Method Room Air Positive well nourished and well developed General Appearance ED: well developed and NAD HEENT Reports moist mucous membranes normocephalic and atraumatic Eyes PERRL, EOMs intact bilaterally and conjunctivae normal General Eye ED: Yes normal appearance of both eyes Neck no lymphadenopathy and supple General: Negative for tenderness Chest Wall Chest: Negative for tenderness Resp normal respiratory effort and normal air movement Effort and Inspection: symmetric chest movement; Negative for respiratory distress Cardio regular rate, regular rhythm and no murmurs Peripheral Pulses: pulses 2+ throughout GI normal to inspection, nondistended, normoactive bowel sounds and non-tender Palpation: Negative for guarding or rebound tenderness present Back/Spine no CVA tenderness and no thoracic nor lumbar tenderness Extremity Extremity Narrative: Left upper extremity: Patient had active range of motion however pain with movement of the shoulder and the elbow. There is no redness or swelling. No deformities. Skin intact. Neurovascular intact distally. General Extremety ED: Negative for edema or tenderness General Extremity: Negative for edema Neuro oriented x3 and no sensory deficits noted Sensorium / Orientation: awake and alert Skin no rashes or lesions noted and no wounds MDM MDM MDM Narrative Medical decision making narrative: Triage orders obtain a shoulder and elbow film reviewed by myself also read by radiology with no acute fracture dislocation. Degenerative changes noted of the shoulder olecranon spur noted at the elbow. 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 Correlate with arthritic type pain. Discussed with her she did have an injury while pulling things out of the laundry possible rotator cuff injury. She will be given injection of NSAIDs in the ED along with the prescription for NSAIDs. She is given orthopedic follow-up. All questions were answered. Radiography Diagnostic Testing: Radiology Impression Shoulder X-Ray 09/02/20 21:57 IMPRESSION: Degenerative changes without acute bony abnormality. at 2307 Reported and signed by: Ha Patel MD Electronically Signed: Ha Patel MD at 23:06 EDT Tel , Service support , Elbow X-Ray 09/02/20 21:58 IMPRESSION: No acute bony injury. at 2305 Reported and signed by: Ha Patel MD Electronically Signed: Ha Patel MD at 23:04 EDT Tel , Service support , Discharge Plan Triage Chief Complaint: Upper Extremity Injury ED Provider: Ronak Marte Dx/Rx/DC Orders Clinical Impression: Left shoulder strain, Elbow pain, left Instructions: ED Arthralgia, ED Shoulder Pain, Uncertain Cause Prescriptions: New ibuprofen 600 mg tablet 600 mg PO Q6H PRN PRN (Reason: pain) Qty: 20 RF: 0 No Action alprazolam [Xanax] 2 MG tablet 1 mg PO QHS RF: 0 topiramate [Topamax] 25 MG tablet 25 mg PO QHS RF: 0 fluoxetine 20 MG capsule 40 mg PO QHS RF: 0 trazodone 100 MG tablet 200 mg PO QHS RF: 0 budesonide [Pulmicort Flexhaler] 1 PUFF inhaler 1 puff inhalation BID Qty: 1 RF: 0 omeprazole 20 MG capsule 20 mg PO DAILY Qty: 30 RF: 0 albuterol sulfate [ProAir HFA] 1 PUFF inhaler 2 puff inhalation Q4H PRN PRN (Reason: Sob &/Or Wheezing) Qty: 1 RF: 0 omeprazole 40 MG capsule,delayed release(DR/EC) 40 mg PO DAILY Qty: 30 RF: 0 hydrocortisone 1 APPLIC cream with perineal applicator 1 applic topical TID PRN PRN (Reason: Rectal Discomfort) Qty: 1 RF: 0 famotidine 20 MG tablet 20 mg PO BID Qty: 20 RF: 0 naproxen 500 MG tablet 500 mg PO BID PRN (Reason: Pain Score 4-10/10) Qty: 14 RF: 0 naproxen 500 mg tablet 500 mg PO BID PRN Qty: 14 RF: 0 lidocaine [Lidoderm] 5 % adhesive patch,medicated 1 patch topical DAILY Qty: 7 RF: 0 Primary Care Provider: Leonid Rice Referrals: Andreas Loya DO [STAFF PHYSICIAN] - 1 Week Leonid Rice MD [Primary Care Provider] - [facility] appointment Disposition Disposition: Home, Self Care
[2020-09-02] MEDS: Ketorolac 30 MG/ML Syringe IM (23:43)
[2020-09-02 23:52] VITALS: RESP 16
== END 2020-09-02 23:53 | disposition home or self-care (01) ==
PROVIDERS: Emergency Provider Emergency Medicine; PCP Internal Medicine
DX: S46.912A Strain of unspecified muscle, fascia and tendon at shoulder and upper arm level, left arm, initial encounter (principal); M25.522 Pain in left elbow; J45.909 Unspecified asthma, uncomplicated; K21.9 Gastro-esophageal reflux disease without esophagitis; F32.9 Major depressive disorder, single episode, unspecified; F41.9 Anxiety disorder, unspecified; F17.210 Nicotine dependence, cigarettes, uncomplicated; Z79.1 Long term (current) use of non-steroidal anti-inflammatories (NSAID); Z79.51 Long term (current) use of inhaled steroids; Z79.899 Other long term (current) drug therapy
CPT/HCPCS: 73030; 73070; 73080; 96372; 99282

== ENCOUNTER 2020-10-25 14:15 | Emergency (ER) | payer MEDICAID, SELFPAY ==
[2020-09-23 09:59] VITALS: BMI 45.7
[2020-10-25 14:16] VITALS: BP 140/81; PULSE 85; RESP 16; TEMP 36.2; O2SAT 99; BMI 39.0
[2020-10-25] MEDS: Clindamycin HCl 150 MG Capsule 300 MG PO (15:51)
[2020-10-25] MEDS: Lidocaine 2% /Epi 1:100 (20ml) 20 ML VIAL 10 ML INFILT (15:52)
--- NOTE | 2020-10-25 16:22 | EDS_ITS ---
HPI History of Present Illness Chief Complaint: Abscess Narrative Narrative: Patient is a 59-year-old female who presents with complaint of left gluteal abscess. She states she recently found out she is diabetic and has had redness swelling and pain to the area for approximately 1 week. She states her daughter was able to open and squeeze some of the material out but the area still swollen and painful and secondary to this presents for evaluation. [facility] Medical History Anxiety Asthma Depression GERD (gastroesophageal reflux disease) Home Medications alprazolam [Xanax] 1 mg PO QHS 06/06/14 [History Last Taken 03/23/15] fluoxetine 40 mg PO QHS 03/24/15 [History Last Taken 03/23/15] topiramate [Topamax] 25 mg PO QHS 03/24/15 [History Last Taken 03/23/15] trazodone 200 mg PO QHS 03/24/15 [History Last Taken 03/23/15] albuterol sulfate [ProAir HFA] 2 puff INHALATION Q4H PRN PRN #1 inhaler 03/25/15 [Rx Last Taken Unknown] budesonide [Pulmicort Flexhaler] 1 puff INHALATION BID #1 inhaler 03/25/15 [Rx Last Taken Unknown] omeprazole 40 mg PO DAILY #30 capsule. 08/13/18 [Rx Last Taken Unknown] famotidine 20 mg PO BID #20 tab 09/12/19 [Rx Last Taken Unknown] naproxen 500 mg PO BID PRN #14 tab 07/28/20 [Rx Last Taken Unknown] ibuprofen 600 mg PO Q6H PRN PRN #20 tab 09/02/20 [Rx Last Taken Unknown] methylprednisolone 4 mg tablets in a dose pack See Rx Instructions PO PER PKG DIR #21 tab 09/23/20 [Rx Last Taken Unknown] clindamycin HCl 300 mg PO .qid 10 Days #40 cap 10/25/20 [Rx Last Taken Unknown] Allergy/AdvReac Type Severity Reaction Status Date / Time latex Allergy Rash Verified 10/25/20 14:19 Family History (Updated 09/23/20 @ 10:04 by Celia Oliveros) Mother Myocardial infarction CVA (cerebral vascular accident) Diabetes Brother Asthma Myocardial infarction Father Hypertension Surgical History History of appendectomy History of cholecystectomy History of umbilical hernia repair Social History (Updated 09/23/20 @ 10:03 by Celia Oliveros) household members: none housing: house Smoking Status: Current every day smoker tobacco type: cigarettes alcohol intake: never what type of physical activity do you participate in: none do you feel safe at home: Yes ROS ROS ED Constitutional Constitutional ED: Denies chills or fever(s) ENT ENT ED: Denies sore throat Cardiovascular Cardiovascular: Denies chest pain Respiratory/Chest Respiratory/Chest: Denies cough Gastrointestinal Gastrointestinal: Denies nausea or vomiting Genitourinary Genitourinary ED: Denies dysuria Musculoskeletal Musculoskeletal: Reports other Details: Positive left gluteal pain Integumentary Reports abscess Neurologic Neurologic: Denies headache(s) Hematologic/Lymphatic Hematologic/Lymphatic: Denies easy bleeding or easy bruising EXAM Physical Exam Const Vital Signs: 10/25/20 14:16 Temperature 97.1 F L Temperature Source Temporal Pulse Rate 85 Respiratory Rate 16 Blood Pressure 140/81 H Blood Pressure Mean 100 Pulse Ox 99 Oxygen Delivery Method Room Air Positive well nourished and well developed General Appearance ED: well developed Eyes PERRL Neck supple Chest Wall inspection of chest normal Resp normal respiratory effort and clear to auscultation bilaterally Cardio regular rate, regular rhythm and no murmurs Extremity Extremity Narrative: Patient has area of erythema and mild induration to the left gluteal region with a open center area draining purulent material. No lymphangitic streaking Neuro oriented x3 and CN's II-XII intact bilaterally Sensorium / Orientation: alert Psych mental status grossly normal Skin Skin Narrative: Soft tissue changes to the left gluteal region consistent with abscess as documented above General Skin Exam: other MDM MDM MDM Narrative Medical decision making narrative: Patient presented afebrile and she did have soft tissue changes to the gluteal region consistent with abscess. The area was already open and draining but as its been there persistently for the past 5 to 7 days I did elect to perform an incision and drainage as documented in procedure section. Following this patient replaced on antibiotics and as she has no signs of systemic infection is safe for discharge Procedures Other Procedures Procedure(s): Patient had the left gluteal region cleaned with chlorhexidine. The wound was then anesthetized using 8 mL of 2% lidocaine with epinephrine local fashion. A #11 blade was used to make a 1 cm incision over top the area of induration. A small amount of purulent material was expressed. Loculations were dissected with a needle salazar. The wound was copiously irrigated with normal saline then 1 inch iodoform gauze was placed. Patient tolerated the procedure well without complication Discharge Plan Triage Chief Complaint: Abscess ED Provider: Lauri Fisher Dx/Rx/DC Orders Clinical Impression: Abscess Instructions: Abscess Drainage, ED Abscess Incision And Drainage Prescriptions: New clindamycin HCl 300 mg capsule 300 mg PO .qid 10 Days Qty: 40 RF: 0 No Action methylprednisolone [Medrol (Foreign)] 4 mg tablets,dose pack See Rx Instructions PO PER PKG DIR Qty: 21 RF: 0 alprazolam [Xanax] 2 MG tablet 1 mg PO QHS RF: 0 topiramate [Topamax] 25 MG tablet 25 mg PO QHS RF: 0 fluoxetine 20 MG capsule 40 mg PO QHS RF: 0 trazodone 100 MG tablet 200 mg PO QHS RF: 0 budesonide [Pulmicort Flexhaler] 1 PUFF inhaler 1 puff inhalation BID Qty: 1 RF: 0 albuterol sulfate [ProAir HFA] 1 PUFF inhaler 2 puff inhalation Q4H PRN PRN (Reason: Sob &/Or Wheezing) Qty: 1 RF: 0 omeprazole 40 MG capsule,delayed release(DR/EC) 40 mg PO DAILY Qty: 30 RF: 0 famotidine 20 MG tablet 20 mg PO BID Qty: 20 RF: 0 naproxen 500 mg tablet 500 mg PO BID PRN Qty: 14 RF: 0 ibuprofen 600 mg tablet 600 mg PO Q6H PRN PRN (Reason: pain) Qty: 20 RF: 0 Primary Care Provider: Leonid Rice Referrals: Leonid Rice MD [Primary Care Provider] - 3-5 Days Activity Restrictions/Additional Instructions: Please remove your packing in 48 to 72 hours Disposition Disposition: Home, Self Care
[2020-10-25 16:35] VITALS: BP 129/71; PULSE 75; RESP 16
== END 2020-10-25 16:42 | disposition home or self-care (01) ==
PROVIDERS: Emergency Provider Emergency Medicine; PCP Internal Medicine
DX: L02.31 Cutaneous abscess of buttock (principal); E11.9 Type 2 diabetes mellitus without complications; F41.9 Anxiety disorder, unspecified; F32.9 Major depressive disorder, single episode, unspecified; J45.909 Unspecified asthma, uncomplicated; K21.9 Gastro-esophageal reflux disease without esophagitis; Z79.51 Long term (current) use of inhaled steroids; Z79.899 Other long term (current) drug therapy; F17.210 Nicotine dependence, cigarettes, uncomplicated
CPT/HCPCS: 10060; 99283

== ENCOUNTER → 2020-11-30 11:51 | Outpatient (CLI) | payer MEDICAID, SELFPAY ==
[2020-09-23 09:59] VITALS: BMI 45.7
--- NOTE | 2020-11-30 13:38 | NEURO ---
NCS and/or EMG Patient Report Ordering Doctor: Houston Barrios DATE OF SERVICE: 11/30/20 Indication: Left elbow pain with intermittent radiation down the extremity. No significant neck pain. Limb is very sensitive to cold temperatures. Evaluate for nerve injury. Findings: Nerve conduction studies were performed in the left upper extremity. Some comparison studies were made on the right. The left median motor study recording the abductor pollicis brevis showed a normal amplitude, normal distal latency and normal conduction velocity. The left ulnar motor study recording the abductor digiti minimi showed a normal amplitude, normal distal latency and normal conduction velocity in the forearm segment. Across the elbow, no conduction block or focal slowing was present. The left median sensory response recording digit two showed a normal amplitude, latency and conduction velocity. The left ulnar sensory response recording digit five showed a reduced amplitude, normal latency and normal conduction velocity. The right ulnar sensory response recording digit five showed a normal amplitude, normal latency and normal conduction velocity. Comparing the left and right ulnar sensory amplitudes, they were significantly asymmetric. The left radial sensory response recording over the extensor snuff box showed a normal amplitude, latency and conduction velocity. Needle EMG of the left upper extremity muscles was performed. The cervical paraspinal muscles were not sampled due to the common presence of fibrillations in the diabetic population. No active denervation was present in any sampled muscle. A complex repetitive discharge was seen in the biceps. Motor units were long, large with reduced recruitment in the deltoid. Motor units were slightly large amplitude with normal recruitment in the biceps and first dorsal interosseous muscles. Impression: This is an abnormal study. 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 There was no focal slowing or conduction block across the elbow to localize the ulnar neuropathy to the elbow. A neuromuscular ultrasound of the ulnar nerve could be considered for further localization and characterization of the lesion. In addition, there was electrophysiologic evidence suggestive, but not diagnostic, of a mild, chronic, left C5/6 radiculopathy. No active denervation was present to suggest ongoing motor axon loss. Duc Wright D.O. Multi Select Codes Neurology Neurology Interp Codes: 40768-48 Musc test done w/n test comp (interp) and 52402-81 Nrv cndj test 9-10 studies (interp)
== END ==
PROVIDERS: PCP Internal Medicine; Referring Provider Physician Assistant; Visit Provider Physician Assistant
DX: R20.2 Paresthesia of skin (principal); M79.602 Pain in left arm
CPT/HCPCS: 95886; 95910

== ENCOUNTER 2022-02-14 15:25 | Emergency (ER) | payer MEDICAID, SELFPAY ==
[2022-02-14 15:26] VITALS: BP 152/128; PULSE 66; RESP 15; TEMP 36.8; O2SAT 98; BMI 43.1
--- NOTE | 2022-02-14 15:55 | CT_ITS ---
STUDY: CT Abdomen And Pelvis W/ Contrast Injection 02/14/2022 5:55 PM REASON FOR EXAM: Female, 61 years old. Umbilical PAIN abdominal pain TECHNIQUE: Transaxial images were obtained without oral contrast, and with IV 100mL Isovue-370 intravenous contrast. Individualized dose optimization techniques were used for this CT. COMPARISON: 7.2 FINDINGS: The visualized lung bases are unremarkable. The visualized portions of the heart are within normal limits. Unremarkable liver. There are surgical clips in the gallbladder fossa consistent with a prior cholecystectomy. Unremarkable spleen. Unremarkable pancreas. Unremarkable bilateral adrenal glands. No acute findings of the right kidney. No acute findings of the left kidney. Unremarkable visualized stomach. Unremarkable small intestine. Unremarkable colon. There is non-visualization of the appendix. There are no acute findings of the abdominal aorta. Unremarkable inferior vena cava. Subcentimeter mesenteric lymph nodes. Unremarkable urinary bladder. There is absence of the uterus consistent with a prior hysterectomy. There is an umbilical hernia containing fat. There are diffuse degenerative changes of the visualized lumbar spine. There is bilateral neural foraminal stenosis at L4-5 and L5-S1. CT/Abdomen/Pelvis W IV Cont ONLY IMPRESSION: (NOT LISTED IN ORDER OF SIGNIFICANCE) There is an umbilical hernia containing fat. There is no bowel involvement. There is no incarceration. There is no findings suggesting that this is causing a bowel obstruction. Other findings as above. Electronically Signed: Danny Hernadez MD at 18:05 EST ,
--- NOTE | 2022-02-14 15:56 | ED.VIS.GI ---
HPI HPI - GI History of Present Illness Chief Complaint: Abd Pain Narrative Narrative: 61-year-old female presenting with abdominal pain. She states she has had a hysterectomy, appendectomy, cholecystectomy, umbilical hernia repair. She reports pain just around her umbilicus. She states she has a small area that has drained intermittently for years. It currently is not draining. Seen as an outpatient by her primary care physician and is trying to get referred for surgery. She has not been able to get a surgeon yet. Patient does not have a history of bowel obstruction she states. She has not had a fever, nausea, vomiting, constipation, diarrhea. She denies urinary complaints. [facility] Medical History Anxiety Asthma Depression GERD (gastroesophageal reflux disease) Home Medications alprazolam 2 mg tablet (Xanax) 1 mg PO QHS 06/06/14 [History Last Taken 03/23/15] fluoxetine 20 mg capsule 40 mg PO QHS 03/24/15 [History Last Taken 03/23/15] topiramate 25 mg tablet (Topamax) 25 mg PO QHS 03/24/15 [History Last Taken 03/23/15] trazodone 100 mg tablet 200 mg PO QHS 03/24/15 [History Last Taken 03/23/15] albuterol sulfate 90 mcg/actuation aerosol inhaler (ProAir HFA) 2 puff inhalation Q4H PRN PRN Sob &/Or Wheezing ##1 03/25/15 [Rx Last Taken Unknown] budesonide 180 mcg/actuation breath activated powder inhaler (Pulmicort Flexhaler) 1 puff inhalation BID ##1 03/25/15 [Rx Last Taken Unknown] omeprazole 40 mg capsule,delayed release 40 mg PO DAILY ##30 08/13/18 [Rx Last Taken Unknown] famotidine 20 mg tablet 20 mg PO BID #20 tabs 09/12/19 [Rx Last Taken Unknown] naproxen 500 mg tablet 500 mg PO BID PRN #14 tabs 07/28/20 [Rx Last Taken Unknown] ibuprofen 600 mg tablet 600 mg PO Q6H PRN PRN pain #20 tabs 09/02/20 [Rx Last Taken Unknown] methylprednisolone 4 mg tablets in a dose pack (Medrol (Foreign)) See Rx Instructions PO PER PKG DIR #21 tabs 09/23/20 [Rx Last Taken Unknown] clindamycin HCl 300 mg capsule 300 mg PO .qid 10 days #40 caps 10/25/20 [Rx Last Taken Unknown] Allergy/AdvReac Type Severity Reaction Status Date / Time latex Allergy Rash Verified 10/25/20 14:19 Family History (Updated 09/23/20 @ 10:04 by Celia Oliveros) Mother Myocardial infarction CVA (cerebral vascular accident) Diabetes Brother Asthma Myocardial infarction Father Hypertension Surgical History History of appendectomy History of cholecystectomy History of umbilical hernia repair Social History (Updated 09/23/20 @ 10:03 by Celia Oliveros) household members: none housing: house Smoking Status: Current every day smoker tobacco type: cigarettes alcohol intake: never what type of physical activity do you participate in: none do you feel safe at home: Yes ROS ROS ED Constitutional Constitutional ED: Denies chills or fever(s) ENT ENT ED: Denies rhinorrhea or sore throat Cardiovascular Cardiovascular: Denies chest pain or palpitations Respiratory/Chest Respiratory/Chest: Denies cough or dyspnea Gastrointestinal Gastrointestinal: Reports abdominal pain; Denies constipation, diarrhea, melena, nausea or vomiting Genitourinary Genitourinary ED: Denies dysuria or hematuria Musculoskeletal Musculoskeletal: Denies arthralgias or back pain Integumentary Denies abscess or Abrasions Neurologic Neurologic: Denies headache(s) or paresthesias Psychiatric Psychiatric: Denies anxiety or depression EXAM Physical Exam Const Vital Signs: 02/14/22 15:26 Temperature 98.2 F Temperature Source Temporal Pulse Rate 66 Respiratory Rate 15 Blood Pressure 152/128 H Blood Pressure Mean 136 Pulse Ox 98 Oxygen Delivery Method Room Air Positive well nourished General Appearance ED: NAD; Negative for pallor HEENT Reports moist mucous membranes normocephalic Eyes PERRL and EOMs intact bilaterally Neck no lymphadenopathy Resp normal respiratory effort Cardio regular rate and regular rhythm GI GI Narrative: Diffusely tender. Small superficial excoriation below the umbilicus. No fluctuance. Extremity full ROM Neuro CN's II-XII intact bilaterally Sensorium / Orientation: alert Skin General Skin Exam: Negative for jaundice or pallor MDM MDM MDM Narrative Medical decision making narrative: Worsened.61-year-old female presenting with abdominal pain. This is a chronic condition which she is Faroese-speaking but her family interprets for her. She had multiple abdominal surgeries. There is some concern she might have developed an abscess on her abdomen however I do not see this on examination. She also has a history of hernia. Patient was medicated with morphine and Zofran. CBC and CMP are unremarkable. Lipase normal. Urinalysis was negative for infection. Obtained a CT of the abdomen pelvis with IV contrast shows a fat-containing umbilical hernia. There is no bowel involvement. There is no evidence of incarceration. There is no evidence of bowel obstruction. Given ultimately normal work-up I feel she is stable for discharge home. I counseled her to follow-up with her PCP who is going to refer her to general surgery. She is discharged home in stable condition. Impression: 1. Abdominal pain 2. Fat-containing umbilical hernia. Lab Data Attestation: I reviewed the patient's lab results. Labs: Laboratory Results - last 24 hr 02/14/22 02/14/22 02/14/22 15:58 15:58 16:50 WBC 10.0 RBC 4.95 Hgb 14.4 Hct 43.7 MCV 88.3 MCH 29.1 MCHC 33.0 RDW Std Deviation 42.4 RDW Coeff of Bhupendra 13.2 Plt Count 221 MPV 11.2 Immature Gran % (Auto) 0.600 Neut % (Auto) 52.7 Lymph % (Auto) 36.4 [place] % (Auto) 6.8 Eos % (Auto) 3.1 Baso % (Auto) 0.4 Absolute Neuts (auto) 5.3 Absolute Lymphs (auto) 3.64 Nucleated RBC % 0 Sodium 140 Potassium 3.8 Chloride 109 H Carbon Dioxide 27.0 Anion Gap 4 L BUN 10 Creatinine 0.96 Estim Creat Clear Calc 45.32 Est GFR (MDRD) Af Amer 76 Est GFR (MDRD) Non-Af 63 BUN/Creatinine Ratio 10.4 Glucose 118 H Calcium 9.1 Total Bilirubin 0.20 AST 15 ALT 21 Alkaline Phosphatase 132 H Total Protein 7.1 Albumin 3.1 L Globulin 4.0 Albumin/Globulin Ratio 0.8 L Lipase 38 L Urine Color Yellow Urine Clarity Clear Urine pH 6.5 Ur Specific [place] 1.020 Urine Protein Negative Urine Glucose (UA) Normal Urine Ketones Negative Urine Occult Blood Negative Urine Nitrite Negative Urine Bilirubin Negative Urine Urobilinogen Normal Ur Leukocyte Esterase Negative Urine RBC 0 SEEN Urine WBC 0 SEEN Ur Squamous Epith Cells 0-5 SEEN Amorphous Sediment 1+ Urine Bacteria 0 SEEN Urine Mucus 0 SEEN Radiography Diagnostic Testing: Clinical Impression(s) from Imaging Studies Abdomen/Pelvis CT 02/14/22 15:55 IMPRESSION: (NOT LISTED IN ORDER OF SIGNIFICANCE) There is an umbilical hernia containing fat. There is no bowel involvement. There is no incarceration. There is no findings suggesting that this is causing a bowel obstruction. Other findings as above. Electronically Signed: Danny Hernadez MD at 18:05 EST , Discharge Plan Triage Chief Complaint: Abd Pain ED Provider: Kavon Wells Dx/Rx/DC Orders Instructions: ED Abdominal Pain Unkn Cause Fem Prescriptions: No Action methylprednisolone [Medrol (Foreign)] 4 mg tablets,dose pack See Rx Instructions PO PER PKG DIR Qty: 21 0RF Rx Instructions: PO PER PKG DIR alprazolam [Xanax] 2 MG tablet 1 mg PO QHS Label Comments: anxiety topiramate [Topamax] 25 MG tablet 25 mg PO QHS Label Comments: seizures fluoxetine 20 MG capsule 40 mg PO QHS Label Comments: depression trazodone 100 MG tablet 200 mg PO QHS Label Comments: depression budesonide [Pulmicort Flexhaler] 1 PUFF inhaler 1 puff inhalation BID Qty: 1 0RF Label Comments: shortness of breath albuterol sulfate [ProAir HFA] 1 PUFF inhaler 2 puff inhalation Q4H PRN PRN (Reason: Sob &/Or Wheezing) Qty: 1 0RF Label Comments: shortness of breath omeprazole 40 MG capsule,delayed release(DR/EC) 40 mg PO DAILY Qty: 30 0RF famotidine 20 MG tablet 20 mg PO BID Qty: 20 0RF naproxen 500 mg tablet 500 mg PO BID PRN Qty: 14 0RF ibuprofen 600 mg tablet 600 mg PO Q6H PRN PRN (Reason: pain) Qty: 20 0RF clindamycin HCl 300 mg capsule 300 mg PO .qid 10 Days Qty: 40 0RF Primary Care Provider: Leonid Rice Referrals: Leonid Rice MD [Primary Care Provider] - Disposition Disposition: Home, Self Care
[2022-02-14 16:07] LABS: Absolute Lymphocyte Count 3.64 X10^3/uL (0.83-4.51); Absolute Neutrophil Count 5.3 X10^3/uL (2.0-7.7); Basophil# 0.04 X10^3/uL; Basophil% 0.4 % (0-1); Eosinophil# 0.31 X10^3/uL; Eosinophils% 3.1 % (0-5); Hematocrit 43.7 % (37-47); Hemoglobin 14.4 g/dL (12.0-15.0); Lymphocyte # 3.64 X10^3/ul (0.83-4.51); Lymphocyte % 36.4 % (19-41); Mean Corpuscular Hgb 29.1 pg (27.0-32.0); Mean Corpuscular Volume 88.3 fL (81-99); Mean Platelet Vol. 11.2 fl (6.2-12.0); Monocyte# 0.68 X10^3/uL; Monocyte% 6.8 % (0-10); NRBC Flagged by Analyzer 0 % (0-5); Neutrophil # 5.26 X10^3/uL (2.7-7.7); Neutrophil % 52.7 % (47-70); Platelet Count 221 K/mm3 (150-450); RBC Distribution Width CV 13.2 % (11.6-14.6); RBC Distribution Width SD 42.4 fl (35.1-43.9); Red Blood Count 4.95 M/mm3 (4.2-5.4)
[2022-02-14] MEDS: Ondansetron 4 MG/2 ML Vial IV (16:07)
[2022-02-14] MEDS: Morphine 4 MG/ML Syringe IV (16:08)
[2022-02-14 16:24] LABS: ALB/GLOB Ratio 0.8 RATIO (0.9-2.4); AST(SGOT) 15 U/L (15-37); Alanine Aminotransfer ALT/SGPT 21 U/L (13-56); Albumin, Serum 3.1 g/dL (3.2-5.0); Alkaline Phosphatase 132 U/L (45-117); Anion Gap 4 (5-15); BUN 10 mg/dL (7-18); BUN/Creat Ratio 10.4 RATIO (10-20); Calcium,Total 9.1 mg/dL (8.5-10.1); Chloride 109 mmol/L (98-107); Creatinine, Serum 0.96 mg/dL (0.55-1.02); EST Glomerular Filtration Rate 63 mL/min (>60); Est Glom Filt Rate - Afr Amer 76 mL/min (>60); Estimated Creatinine Clearance 45.32 ml/min; Glucose 118 mg/dL (74-106); Lipase 38 U/L (73-393); Potassium 3.8 mmol/L (3.5-5.1); Protein, Total 7.1 g/dL (6.4-8.2); Sodium Level 140 mmol/L (136-145)
[2022-02-14 16:59] LABS: Bacteria 0 SEEN /hpf (None Seen); Mucous, Urine 0 SEEN /hpf (<or=2+); Red Blood Cells-Urine 0 SEEN /hpf (0-5); White Blood Cells 0 SEEN /hpf (0-5)
[2022-02-14 17:42] LABS: Color, Urine Yellow (Yellow); Glucose, Dipstick Normal (Normal); Ketone-Dipstick Negative (Negative); Leukocyte Esterase-Dipstick Negative /ul (Negative); Nitrite-Dipstick Negative (Negative); Occult Blood-Urine Negative /ul (Negative); Protein-Dipstick Negative (Negative); Urine Bilirubin Dipstick Negative (Negative); Urine Clarity Clear (Clear); Urine Urobilinogen Normal (Normal); Urine pH 6.5 (5.0 - 8.0)
[2022-02-14 17:51] LABS: Amorphous Sediment 1+; Squamous Epithelial Cells - UA 0-5 SEEN /hpf (5-10)
[2022-02-14 18:33] VITALS: BP 132/74; PULSE 74; RESP 15; TEMP 36.7; O2SAT 99
== END 2022-02-14 18:40 | disposition home or self-care (01) ==
PROVIDERS: Emergency Provider Student in an Organized Health Care Education/Training Program; PCP Internal Medicine; Visit Provider Student in an Organized Health Care Education/Training Program
DX: K42.9 Umbilical hernia without obstruction or gangrene (principal); F17.210 Nicotine dependence, cigarettes, uncomplicated
CPT/HCPCS: 74177; 80053; 81001; 83690; 85025; 96374; 96375; 99284; Q9967; A4216; J2405

== ENCOUNTER 2023-01-26 11:19 | Emergency (ER) | payer MEDICAID, SELFPAY ==
[2023-01-26 11:20] VITALS: BP 122/73; PULSE 61; RESP 21; TEMP 36; O2SAT 97; BMI 42.4
--- NOTE | 2023-01-26 11:45 | EKG12_ITS ---
Test Reason : SOB Blood Pressure : / mmHG Vent. Rate : 056 BPM Atrial Rate : 056 BPM P-R Int : 162 ms QRS Dur : 078 ms QT Int : 454 ms P-R-T Axes : 030 021 048 degrees QTc Int : 438 ms Sinus bradycardia Otherwise normal ECG Confirmed by EULALIA MCCOY, DARRION ([id number]), development editor FABIENNE PINEDA ([id number]) on 02/01/2023 11:55:45 AM Referred By: Confirmed By:DARRION ESTEBAN MD
--- NOTE | 2023-01-26 11:45 | RAD_ITS ---
STUDY: X-RAY CHEST REASON FOR EXAM: Female, 62 years old. Chest pain TECHNIQUE: Single AP portable view of the chest. COMPARISON: Comparison is made with prior study dated September 28, 2019. FINDINGS: EKG electrodes are seen. The lungs are clear and expanded. There is no demonstrated pleural abnormality. Normal size heart. Normal mediastinum and janel. Normal visualized pulmonary arteries. Normal visualized aortic arch and descending thoracic aorta. Normal visualized thoracic spine. Normal visualized ribs, clavicles, and shoulders. There is no demonstrated abnormality of the visualized soft tissue structures of the upper abdomen. RAD/Chest 1 View (Portable) IMPRESSION: Normal x-ray examination of the chest. Electronically Signed: Kofi Venegas MD at 12:15 EST ,
--- NOTE | 2023-01-26 11:45 | ED.VIS.CHEST ---
HPI History of Present Illness Chief Complaint: Chest Pain Informant: patient Narrative Narrative: Brought in by EMS from home after patient called EMS with chest pressure. She states intermittent similar symptoms over the last 2 weeks with, last for few hours. No radicular symptoms. No recent cough. No recent travel. No history of PE or DVT. History of diabetes and hypertension. Quarter pack per day smoker. Denies any heart disease history no history of stress test or heart cath. EMS gave 324 mg aspirin went 1 nitroglycerin states initially helped however pain coming back. States pain currently a 9 out of 10. Prior Similar Symptoms: Yes CVD Risk Factors: Positive for Hypertension, Diabetes and Smoking PE Risk Factors: Negative for Recent Travel/Surgery, Recent Immobilization or Prior DVT or PE [facility] Medical History Anxiety Asthma Depression GERD (gastroesophageal reflux disease) Home Medications alprazolam 2 mg tablet (Xanax) 1 mg PO QHS 06/06/14 [History Last Taken 03/23/15] fluoxetine 20 mg capsule 20 mg PO QHS 03/24/15 [History Last Taken 03/23/15] topiramate 25 mg tablet (Topamax) 25 mg PO QHS 03/24/15 [History Last Taken 03/23/15] trazodone 100 mg tablet 200 mg PO QHS 03/24/15 [History Last Taken 03/23/15] albuterol sulfate 90 mcg/actuation aerosol inhaler (ProAir HFA) 2 puff inhalation Q4H PRN PRN Sob &/Or Wheezing ##1 03/25/15 [Rx Last Taken Unknown] budesonide 180 mcg/actuation breath activated powder inhaler (Pulmicort Flexhaler) 1 puff inhalation BID ##1 03/25/15 [Rx Last Taken Unknown] Allergy/AdvReac Type Severity Reaction Status Date / Time latex Allergy Rash Verified 01/26/23 11:23 Family History (Updated 09/23/20 @ 10:04 by Celia Oliveros) Mother Myocardial infarction CVA (cerebral vascular accident) Diabetes Brother Asthma Myocardial infarction Father Hypertension Surgical History History of appendectomy History of cholecystectomy History of umbilical hernia repair Social History (Updated 09/23/20 @ 10:03 by Celia Oliveros) household members: none housing: house Smoking Status: Current every day smoker tobacco type: cigarettes alcohol intake: never what type of physical activity do you participate in: none do you feel safe at home: Yes ROS ROS ED Constitutional Constitutional ED: Denies chills, fever(s) or sweats Eyes Eyes: Denies change in vision ENT ENT ED: Denies dysphagia or sore throat Cardiovascular Cardiovascular: Reports chest pain; Denies leg edema, palpitations or racing heartbeat Respiratory/Chest Respiratory/Chest: Denies cough, dyspnea or dyspnea on exertion Gastrointestinal Gastrointestinal: Denies abdominal pain, diarrhea, nausea or vomiting Genitourinary Genitourinary ED: Denies dysuria, hematuria or urinary frequency Musculoskeletal Musculoskeletal: Denies back pain, extremity pain or neck pain Integumentary Denies rash or wounds Neurologic Neurologic: Denies headache(s), paresthesias or weakness EXAM Physical Exam Const Vital Signs: 01/26/23 11:20 01/26/23 11:25 01/26/23 11:53 Temperature 96.8 F L Temperature Source Temporal Pulse Rate 61 Respiratory Rate 21 H Respiratory Effort Normal Non-Labored Blood Pressure 122/73 H Blood Pressure Mean 89 Pulse Ox 97 Oxygen Delivery Method Room Air Room Air 01/26/23 13:19 01/26/23 15:00 01/26/23 16:11 Temperature Temperature Source Pulse Rate 64 55 L 58 L Respiratory Rate 21 H 20 H 19 H Respiratory Effort Blood Pressure 149/84 H 127/62 H 124/89 H Blood Pressure Mean 105 83 100 Pulse Ox 96 97 97 Oxygen Delivery Method Room Air Room Air Positive well nourished and well developed General Appearance ED: well developed and NAD HEENT Reports moist mucous membranes normocephalic and atraumatic Eyes PERRL, EOMs intact bilaterally and conjunctivae normal General Eye ED: Yes normal appearance of both eyes Neck no lymphadenopathy and supple General: Negative for tenderness Chest Wall Chest: Negative for tenderness Resp normal respiratory effort and normal air movement Effort and Inspection: symmetric chest movement; Negative for respiratory distress Cardio regular rate, regular rhythm and no murmurs Peripheral Pulses: pulses 2+ throughout GI normal to inspection, nondistended, normoactive bowel sounds and non-tender Palpation: Negative for guarding or rebound tenderness present Back/Spine no CVA tenderness and no thoracic nor lumbar tenderness Extremity normal to inspection General Extremety ED: Negative for edema or tenderness General Extremity: Negative for edema Neuro oriented x3 and no sensory deficits noted Sensorium / Orientation: awake and alert Skin no rashes or lesions noted and no wounds Heart Score History: Slightly/Non-Suspicious ECG: Normal Age: >45 - <65 years Risk Factors: >/= 3 Risk Factors or History of CAD Troponin: </= Normal Limit Score: 3 MDM MDM MDM Narrative Medical decision making narrative: Interventions / MDM: Differential diagnosis: Diagnosis considered but do not suspect: N/A My EKG interpretation: Sinus rhythm 56, no ST or T wave changes. EKG #2 at 1359: Sinus rate of 52, no ST changes changes. Imaging independently reviewed and interpreted by myself: 1 view chest x-ray: No acute process. CTA chest: No PE or acute chest pathology. External documents reviewed: N/A Test considered but not ordered:N/A ED course: Presenting chest pains reporting transient improvement with 1 nitro. EKG with no acute findings. Cardiac work-up initiated, additional nitro series ordered for symptom control. Patient was reevaluated, reports pain is not improved with the nitroglycerin. Repeat EKG unchanged. Morphine ordered. CT angiogram ordered for further. 1545: CTA negative. Repeat troponin negative. Daughter currently present in the room. She had some improvement of symptoms. I discussed no clear etiology for symptoms at this time. She will follow-up with PCP for further testing with strict return precautions. All questions were answered. Re-evaluation: stable Disposition discussed with patient/family/significant other: Patient and daughter Case discussed with consulting clinician: N/A This note was generated with War[employer] dictation software. It may contain incorrect words, spelling, and punctuation that were not noted in checking the note before signing. Lab Data Attestation: I reviewed the patient's lab results. Labs: Laboratory Results - last 24 hr 01/26/23 01/26/23 11:10 14:00 WBC 7.9 RBC 4.96 Hgb 14.8 Hct 44.9 MCV 90.5 MCH 29.8 MCHC 33.0 RDW Std Deviation 43.3 RDW Coeff of Bhupendra 13.1 Plt Count 215 MPV 11.6 Immature Gran % (Auto) 0.300 Neut % (Auto) 50.0 Lymph % (Auto) 39.4 [place] % (Auto) 7.5 Eos % (Auto) 2.4 Baso % (Auto) 0.4 Absolute Neuts (auto) 3.9 Absolute Lymphs (auto) 3.09 Nucleated RBC % 0 Sodium 141 Potassium 3.6 Chloride 111 H Carbon Dioxide 26.0 Anion Gap 4 L BUN 12 Creatinine 1.11 H Estim Creat Clear Calc 38.71 Est GFR (MDRD) Af Amer 64 Est GFR (MDRD) Non-Af 53 L BUN/Creatinine Ratio 10.8 Glucose 147 H Calcium 9.2 Troponin I High Sens 6 5 Radiography Diagnostic Testing: Clinical Impression(s) from Imaging Studies Chest X-Ray 01/26/23 11:45 IMPRESSION: Normal x-ray examination of the chest. Electronically Signed: Kofi Venegas MD at 12:15 EST , Chest CTA 01/26/23 13:52 IMPRESSION: Normal CTA chest examination, without a demonstrated pulmonary embolism or arterial dissection. Electronically Signed: Kofi Venegas MD at 14:49 EST , Discharge Plan Triage Chief Complaint: Chest Pain ED Provider: Ronak Marte Dx/Rx/DC Orders Clinical Impression: Tobacco dependence, History of hypertension, Chest pain Instructions: ED Chest Pain, Uncertain Cause Prescriptions: No Action alprazolam [Xanax] 2 MG tablet 1 mg PO QHS Patient Comments: anxiety topiramate [Topamax] 25 MG tablet 25 mg PO QHS Patient Comments: seizures fluoxetine 20 MG capsule 20 mg PO QHS Patient Comments: depression trazodone 100 MG tablet 200 mg PO QHS Patient Comments: depression Pulmicort Flexhaler 1 PUFF inhaler 1 puff inhalation BID Qty: 1 0RF Patient Comments: shortness of breath albuterol sulfate [ProAir HFA] 1 PUFF inhaler 2 puff inhalation Q4H PRN PRN (Reason: Sob &/Or Wheezing) Qty: 1 0RF Patient Comments: shortness of breath Primary Care Provider: Leonid Rice Referrals: Leonid Rice MD [Primary Care Provider] - 3-5 Days Activity Restrictions/Additional Instructions: EKG x2 negative. Troponin negative x2. CTA chest negative for any PE or dissection. Follow-up with your doctor for further testing. Return if any worsening symptoms. Disposition Disposition: Home, Self Care Discharge Date/Time: 01/26/23 16:12
[2023-01-26 12:06] LABS: Absolute Lymphocyte Count 3.09 X10^3/uL (0.83-4.51); Absolute Neutrophil Count 3.9 X10^3/uL (2.0-7.7); Basophil# 0.03 X10^3/uL; Basophil% 0.4 % (0-1); Eosinophil# 0.19 X10^3/uL; Eosinophils% 2.4 % (0-5); Hematocrit 44.9 % (37-47); Hemoglobin 14.8 g/dL (12.0-15.0); Lymphocyte # 3.09 X10^3/ul (0.83-4.51); Lymphocyte % 39.4 % (19-41); Mean Corpuscular Hgb 29.8 pg (27.0-32.0); Mean Corpuscular Volume 90.5 fL (81-99); Mean Platelet Vol. 11.6 fl (6.2-12.0); Monocyte# 0.59 X10^3/uL; Monocyte% 7.5 % (0-10); NRBC Flagged by Analyzer 0 % (0-5); Neutrophil # 3.93 X10^3/uL (2.7-7.7); Platelet Count 215 K/mm3 (150-450); RBC Distribution Width CV 13.1 % (11.6-14.6); RBC Distribution Width SD 43.3 fl (35.1-43.9); Red Blood Count 4.96 M/mm3 (4.2-5.4); White Blood Count 7.9 K/mm3 (4.4-11.0)
[2023-01-26 12:13] LABS: Anion Gap 4 (5-15); BUN 12 mg/dL (7-18); BUN/Creat Ratio 10.8 RATIO (10-20); Calcium,Total 9.2 mg/dL (8.5-10.1); Chloride 111 mmol/L (98-107); Creatinine, Serum 1.11 mg/dL (0.55-1.02); EST Glomerular Filtration Rate 53 mL/min (>60); Est Glom Filt Rate - Afr Amer 64 mL/min (>60); Estimated Creatinine Clearance 38.71 ml/min; Glucose 147 mg/dL (74-106); Potassium 3.6 mmol/L (3.5-5.1); Sodium Level 141 mmol/L (136-145); Troponin-I HS (w/2H Reflex) 6 pg/mL (3.0-54.0)
[2023-01-26 13:19] VITALS: BP 149/84; PULSE 64; RESP 21; O2SAT 96
--- NOTE | 2023-01-26 13:51 | EKG12_ITS ---
Test Reason : REPEAT DR ORD Blood Pressure : / mmHG Vent. Rate : 052 BPM Atrial Rate : 052 BPM P-R Int : 182 ms QRS Dur : 084 ms QT Int : 466 ms P-R-T Axes : 030 015 037 degrees QTc Int : 433 ms Sinus bradycardia Otherwise normal ECG Confirmed by EULALIA MCCOY, DARRION ([id number]), photo editor FABIENNE PINEDA ([id number]) on 02/01/2023 11:55:56 AM Referred By: Confirmed By:DARRION ESTEBAN MD
--- NOTE | 2023-01-26 13:52 | CT_ITS ---
STUDY: CTA CHEST REASON FOR EXAM: Female, 62 years old. Chest pain. RADIATION DOSAGE (If Supplied By Facility): CTDIvol = ( 13.82 ) mGy, DLP = ( 423.70 ) mGycm TECHNIQUE: The examination was performed with the intravenous administration of IV 100mL Isovue-370. Post-processing of the angiographic images was performed, with multiplanar reformation and 3D reconstruction. Individualized dose optimization techniques were used for this CT. COMPARISON: Comparison is made with prior chest radiograph done earlier in the day as well as CT scan of the chest dated July 28, 2020. FINDINGS: Normal enhancement of the main pulmonary artery and right and left pulmonary arteries. Normal enhancement of the bilateral peripheral pulmonary arteries. There is no demonstrated pulmonary embolism. Normal thoracic aorta and visualized great vessels. There is no demonstrated aortic dissection. Normal heart and pericardium. Normal mediastinum. Normal hilar regions. Normal visualized trachea and bronchi. The lungs are well expanded. Normal pulmonary parenchyma. Calcified granuloma in the right lower lobe. Normal pleura. Normal chest wall structures. There are degenerative changes of thoracic spine. Normal visualized upper abdomen. CT/CTA Chest W/WO Contrast IMPRESSION: Normal CTA chest examination, without a demonstrated pulmonary embolism or arterial dissection. Electronically Signed: Kofi Venegas MD at 14:49 EST ,
[2023-01-26 13:53] LABS: Reflex Troponin-HS? (from REC) Y
[2023-01-26] MEDS: Morphine 4 MG/ML Syringe IV (13:59)
[2023-01-26] MEDS: 0.9% Normal Saline (500mL Bag) 500 ML 999 ML IV (14:00)
[2023-01-26 14:21] LABS: Troponin-I HS 5 pg/mL (3.0-54.0)
[2023-01-26 15:00] VITALS: BP 127/62; PULSE 55; RESP 20; O2SAT 97
[2023-01-26 16:11] VITALS: BP 124/89; PULSE 58; RESP 19; O2SAT 97
== END 2023-01-26 16:12 | disposition home or self-care (01) ==
PROVIDERS: Emergency Provider Emergency Medicine; PCP Internal Medicine; Visit Provider Emergency Medicine
DX: R07.89 Other chest pain (principal); E11.9 Type 2 diabetes mellitus without complications; I10 Essential (primary) hypertension; M54.9 Dorsalgia, unspecified; F17.210 Nicotine dependence, cigarettes, uncomplicated; Z79.899 Other long term (current) drug therapy
CPT/HCPCS: 71045; 71275; 80048; 84484; 85025; 93005; 96361; 96374; 99285; J7030; Q9967; A4216

== ENCOUNTER 2024-08-25 15:36 | Observation (INO) | payer MEDICAID, SELFPAY ==
[2024-08-25] VITALS (15 sets, daily range): BP systolic 127–163; BP diastolic 56–97; PULSE 60–103; RESP 16–32; TEMP 36.7–37.6; O2SAT 93–98; BMI 41.1; BMI 41.0
--- NOTE | 2024-08-25 16:00 | ED.RN ---
PT STATES THAT SHE HAS BEEN IN THE [facility] FOR 3 MONTHS D/T FAMILY . WHILE SHE WAS THERE SHE RAN OUT OF HER HOME MEDICATIONS, BELIEVES SHE HAS BEEN OUT OF MEDS FOR ABOUT 1 MONTH.
--- OUTSIDE RECORDS SUMMARY | 2024-08-25 16:34 | XMS RPT_ITS | CCD ---
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 unspecified; Translations: [Chest wall pain] Onset: 06-06-2017 Episodic Other circulatory disease (1 source) H/O: hypertension; Translations: [Personal history of other diseases of the circulatory system] 01-26-2023 Episodic Other connective tissue disease (2 sources) Pain in left arm; Translations: [Pain in left arm] 09-23-2020 Episodic Other connective tissue disease (2 sources) Pain in upper limb; Translations: [Pain in arm, unspecified] 09-29-2019 Episodic Other connective tissue disease (4 sources) Pain of left hand; Translations: [Pain in left hand] 11-18-2022 Episodic Other fractures (2 sources) Closed fracture of sternum; Translations: [Fracture of manubrium, initial encounter for closed fracture] Onset: 02-21-2023 Episodic Other injuries and conditions due to external causes (1 source) History of falling; Translations: [History of falling] Onset: 07-12-2020 Episodic Other injuries and conditions due to external causes (1 source) Contusion; Translations: [Unspecified multiple injuries, initial encounter] 12-01-2023 Episodic Other lower respiratory disease (1 source) Nodule of lung; Translations: [Solitary pulmonary nodule] 12-29-2023 Episodic Other nervous system disorders (20 sources) Chronic pain; Translations: [Other chronic pain] Onset: 07-31-2015 Resolved: 08-17-2018 08-17-2018 Chronic Other nervous system disorders (1 source) Other chronic pain; Translations: [Chronic pain of left knee] Onset: 12-27-2023 Chronic Other nervous system disorders (1 source) Taste sense altered; Translations: [Parageusia] Episodic Other nervous system disorders (2 sources) Paresthesia of upper limb; Translations: [Paresthesia of skin] 09-23-2020 Episodic Other non-traumatic joint disorders (10 sources) Pain in left knee; Translations: [Pain in joint, lower leg] Onset: 06-26-2018 12-01-2023 Episodic Other non-traumatic joint disorders (2 sources) Pain in elbow; Translations: [Pain in left elbow] 09-02-2020 Episodic Other non-traumatic joint disorders (2 sources) Chronic pain of left upper limb; Translations: [Pain in left shoulder] Episodic Other nutritional; endocrine; and metabolic disorders (20 sources) Body mass index 40+ - severely obese; Translations: [Morbid (severe) obesity due to excess calories] Onset: 04-03-2019 04-03-2019 Chronic Other nutritional; endocrine; and metabolic disorders (1 source) Morbid (severe) obesity due to excess calories; Translations: [Obesity, Class III, BMI 40-49.9 (morbid obesity) ([facility])] Onset: 04-03-2019 Chronic Other screening for suspected conditions (not mental disorders or infectious disease) (20 sources) Encounter for screening mammogram for malignant neoplasm of breast; Translations: [Patient encounter status] Onset: 11-20-2017 Episodic Other skin disorders (1 source) Sebaceous cyst of skin; Translations: [Sebaceous cyst] Episodic Residual codes; unclassified (20 sources) Obstructive sleep apnea syndrome; Translations: [Obstructive sleep apnea (adult) (pediatric)] Onset: 02-25-2019 02-25-2019 Chronic Residual codes; unclassified (1 source) Acquired absence of other genital organ(s); Translations: [Acquired absence of other genital organ(s)] Onset: 07-12-2020 Episodic Residual codes; unclassified (1 source) Acquired absence of other specified parts of digestive tract; Translations: [Acquired absence of other specified parts of digestive tract] Onset: 07-12-2020 Episodic Residual codes; unclassified (20 sources) Tobacco use and exposure - finding; Translations: [Tobacco use] 04-09-2014 Episodic Residual codes; unclassified (2 sources) History of repair of umbilical hernia; Translations: [Other specified postprocedural states] 09-23-2020 Episodic Skin and subcutaneous tissue infections (3 sources) Abscess; Translations: [Cutaneous abscess, unspecified] Episodic Spondylosis; intervertebral disc disorders; other back problems (20 sources) Degeneration of lumbar intervertebral disc; Translations: [Other intervertebral disc degeneration, lumbar region] Onset: 05-27-2014 06-06-2014 Chronic Sprains and strains (4 sources) Strain of muscle, fascia and tendon of lower back, initial encounter; Translations: [Sprain of unspecified site of left knee, initial encounter] Onset: 07-18-2017 09-02-2020 Episodic Substance-related disorders (8 sources) Nicotine dependence, unspecified, uncomplicated; Translations: [Smoker] Onset: 07-12-2020 Chronic Syncope (1 source) Syncope; Translations: [Syncope and collapse] Episodic Unclassified (2 sources) Oth fracture of left patella, init for clos fx / S82.092A(ICD-9) Onset: 07-11-2017 Unclassified (2 sources) Chest pain, unspecified / R07.9(ICD-9) Onset: 06-06-2017 Unclassified (1 source) Nicotine dependence, unspecified, uncomplicated / F17.200(ICD-9) Onset: 06-06-2017 Unclassified (1 source) Family hx of ischem heart dis and oth dis of the circ sys / Z82.49(ICD-9) Onset: 06-06-2017 Unclassified (1 source) Other specified anxiety disorders / F41.8(ICD-9) Onset: 06-06-2017 Unclassified (1 source) Morbid (severe) obesity due to excess calories / E66.01(ICD-9) Onset: 06-06-2017 Unclassified (2 sources) NAUSEA, EPIGASTRIC PAIN R11.0, R10.13 (CPT 81065); Translations: [NAUSEA, EPIGASTRIC PAIN R11.0, R10.13 (CPT 28265)] Onset: 04-10-2018 Unclassified (2 sources) LOSS OF APPETITIE, COLON CA SCREENING R63.0, Z12.11 (CPT G0121, 75091); Translations: [LOSS OF APPETITIE, COLON CA SCREENING R63.0, Z12.11 (CPT G0121, 71365)] Onset: 01-09-2018 Past or Other Problems Problem Classification Problem Date Documented Da te Episodic/Chronic Abdominal hernia (20 sources) Irreducible hernia of anterior abdominal wall; Translations: [Other and unspecified ventral hernia with obstruction, without gangrene] Onset: 03-02-2011 Resolved: 08-17-2018 08-17-2018 Episodic Abdominal pain (20 sources) Unspecified abdominal pain; Translations: [Epigastric pain] Onset: 01-28-2014 01-28-2014 Episodic Complications of surgical procedures or medical care (20 sources) Wound pain ; Translations: [Other postprocedural complications of skin and subcutaneous tissue] Onset: 02-06-2015 Resolved: 08-17-2018 03-08-2021 Episodic Diabetes mellitus without complication (20 sources) Prediabetes; Translations: [Hyperglycemia] Onset: 04-08-2019 Resolved: 10-28-2020 12-15-2018 Episodic Headache; including migraine (20 sources) Headache; Translations: [Posttraumatic headache] Onset: 01-16-2014 08-17-2018 Episodic Immunizations and screening for infectious disease (6 sources) Patient encounter status; Translations: [Encounter for immunization] Onset: 08-23-2023 Episodic Intestinal infection (20 sources) Infection caused by Helicobacter pylori; Translations: [Other specified bacterial intestinal infections] Onset: 09-12-2016 Resolved: 08-17-2018 08-17-2018 Episodic Other connective tissue disease (20 sources) Myofascial pain; Translations: [Myalgia, other site] Onset: 10-17-2014 Resolved: 08-17-2018 08-17-2018 Episodic Other connective tissue disease (1 source) Pain in left hand; Translations: [Left hand pain] Onset: 08-23-2023 Episodic Other gastrointestinal disorders (20 sources) Constipation; Translations: [Constipation, unspecified] Onset: 06-06-2014 Episodic Other nervous system disorders (20 sources) Abnormal gait; Translations: [Unspecified abnormalities of gait and mobility] Onset: 01-28-2014 Resolved: 04-02-2021 04-02-2021 Episodic Other non-traumatic joint disorders (20 sources) Pain in left shoulder; Translations: [Pain in joint, shoulder region] Onset: 07-12-2020 Resolved: 04-02-2021 04-02-2021 Episodic Other non-traumatic joint disorders (20 sources) Pain in unspecified knee; Translations: [Pain in joint, lower leg] Onset: 05-27-2014 Resolved: 08-17-2018 08-17-2018 Episodic Residual codes; unclassified (20 sources) Family history of cancer of colon; Translations: [Family history of malignant neoplasm of digestive organs] Onset: 01-28-2014 01-28-2014 Episodic Spondylosis; intervertebral disc disorders; other back problems (20 sources) Chronic low back pain; Translations: [Chronic low back pain] Onset: 04-09-2014 Resolved: 08-17-2018 05-27-2014 Episodic Unclassified (1 source) Oth fracture of left patella, init for clos fx; Translations: [Oth fracture of left patella, init for clos fx] Onset: 07-11-2017 Unclassified (20 sources) Intervertebral disc disorder; Translations: [Disc] Resolved: 08-17-2018 03-08-2021 Unclassified (20 sources) NEGATIVE MEDICAL HISTORY Resolved: 08-17-2018 03-08-2021 Results Test Name Value Interpretation Reference Range Facility [id number] 01-18-2024 [id number] HNO ID: [id number] Author: AMIRA WIGGINS RN Service: ? Author Type: Registered Nurse Type: [id number] Filed: 01/18/2024 09:27 Note Text: The patient received a copy of EGD discharge instructions that contain information for how to contact the physician who performed the procedure and when to seek medical care. Normal [facility] EGD Study observation [place] 01-18-2024 Vas[place] [facility] Gastrointestinal Endoscopy Patient Name: Jennifer Mcmullen Procedure Date: 01/18/2024 8:55 AM Date of : 1960 Admit Type: Outpatient Age: 63 Gender: Female Note Status: Finalized Procedure: Upper GI endoscopy Indications: Epigastric abdominal pain, Nausea Providers: Zachery Toussaint MD Patient Profile: This is a 63 year old female. Refer to note in patient chart for documentation of history and physical. Referring Physician: Zachery Toussaint MD (Referring MD), Marianna costello) Kaushal (Referring MD) Medicines: Fentanyl 50 micrograms IV, Midazolam 4 mg IV, Propofol per Anesthesia, Benzocaine spray Complications: No immediate complications. Estimated blood loss: Minimal. Requesting Provider: Procedure: Pre-Anesthesia Assessment: - Prior to the procedure, a History and Physical was performed, and patient medications and allergies were reviewed. The patient's tolerance of previous anesthesia was also reviewed. The risks and benefits of the procedure and the sedation options and risks were discussed with the patient. All questions were answered, and informed consent was obtained. Prior Anticoagulants: The patient has taken no anticoagulant or antiplatelet agents. ASA Grade Assessment: III - A patient with severe systemic disease. After reviewing the risks and benefits, the patient was deemed in satisfactory condition to undergo the procedure. After obtaining informed consent, the endoscope was passed under direct vision. Throughout the procedure, the patient's blood pressure, pulse, and oxygen saturations were monitored continuously. The Endosonoscope was introduced through the mouth, and advanced to the second part of duodenum. The upper GI endoscopy was accomplished without difficulty. The patient tolerated the procedure well. Moderate Sedation: The administration of moderate sedation was initiated at 09:03 AM. Moderate (conscious) sedation was personally administered by the endoscopist. The following parameters were monitored: oxygen saturation, heart rate, blood pressure, respiratory rate, EKG, adequacy of pulmonary ventilation, and response to care. Total physician intraservice time was 8 minutes. Findings: The Z-line was regular and was found 38 cm from the incisors. Biopsies were taken with a cold forceps for histology. The entire examined stomach was normal. Biopsies were taken with a cold forceps for Helicobacter pylori testing. The examined duodenum was normal. Biopsies for histology were taken with a cold forceps for evaluation of celiac disease. Impression: - Z-line regular, 38 cm from the incisors. Biopsied. - Normal stomach. Biopsied. - Normal examined duodenum. Biopsied. Recommendation: - Patient has a contact number available for emergencies. The signs and symptoms of potential delayed complications were discussed with the patient. Return to normal activities tomorrow. Written discharge instructions were provided to the patient. - Resume previous diet. - Continue present medications. - Await pathology results. - Repeat upper endoscopy PRN for surveillance. - Return to nurse practitioner at appointment to be scheduled. Procedure Code(s): --- Professional --- 66627, Esophagogastroduodenos copy, flexible, transoral; with biopsy, single or multiple Diagnosis Code(s): --- Professional --- R10.13, Epigastric pain R11.0, Nausea CPT copyright 2020 [employer]. All rights reserved. The codes documented in this report are preliminary and upon auto club travel counselor review may be revised to meet current compliance requirements. Attending Participation: I personally performed the entire procedure. Scope In: 9:07:47 AM Scope Out: 9:11:18 AM MD Zachery Lund MD 01/18/2024 9:15:51 AM This report has been sign (more content not included)... PROVATION [facility] Radiology Study observation (narrative) [facility] HISTORY PHYSICALon HISTORY PHYSICAL HNO ID: [id number] Author: ZACHERY TOUSSAINT MD Service: General Surgery Author Type: Physician Type: H&P Filed: 01/18/2024 09:12 Note Text: HISTORY AND PHYSICAL Jennifer Mcmullen 1960 REFERRING PHYSICIAN: Marianna Yap, APR* CHIEF COMPLAINT: New Patient HPI: The patient is a 63 year old female referred for endoscopy. Jennifer Mcmullen is a 63 year old female who presents today for above. She is here today for follow-up. She was last seen about one month ago, reported chronic left knee pain. She saw orthopedics 12/26 and will be starting PT. Taking naproxen as needed with minor relief. She reports chronic nausea, reflux, epigastric abdominal discomfort that is getting worse. States it is because of her hernia but no record of this. She was on Prilosec but felt it made her symptoms worse so she stopped taking. Jennifer has not undergone prior endoscopy. The patient is being seen by me today at the request of Dr. Yap for my opinion and advice regarding Epigastric abdominal pain Nausea. PAST MEDICAL HISTORY PAST MEDICAL HISTORY Diagnosis Date Arthritis Asthma Chronic low back pain 05/27/2014 Work injury 2006 Depression [facility] Diabetes mellitus (HCC) Disc slipped disc in back Fracture of right ankle Head injury Helicobacter pylori infection 09/12/2016 Hernia, hiatal Hyperglycemia 2010 Insomnia JOSSELIN (obstructive sleep apnea) 02/25/2019 Post-traumatic headache 01/16/2014 Postmenopausal Prediabetes 04/08/2019 PTSD (post-traumatic stress disorder) Tobacco use PAST SURGICAL HISTORY PAST SURGICAL HISTORY Procedure Laterality Date APPENDECTOMY 2012 Nydia SECTION HX 1980 x 2 CHOLECYSTECTOMY 1989 COLONOSCOPY 01/10/2018 Random bx neg. internal hemorrhoids. lax anal tone. [facility] COLONOSCOPY FLX DX W/COLLJ SPEC WHEN PFRMD 06/12/2014 Colonoscopy out pt [facility] EGD 04/10/2018 Hpylori negative - [facility] ESOPHAGOGASTRODUODENOS COPY TRANSORAL DIAGNOSTIC 06/12/2014 EGD outpt [facility] HERNIA REPAIR HX 12/01/2011 TOTAL ABDOMINAL HYSTERECT W/WO RMVL TUBE OVARY 1980 fibroid CURRENT MEDICATIONS Current Outpatient Medications Medication Sig topiramate (TOPAMAX) 50 mg tablet Take 1 tablet by mouth two times a day. albuterol HFA (PROVENTIL HFA, VENTOLIN HFA) 90 mcg/actuation inhaler Inhale 2 Puffs as instructed every 4 hours as needed for wheezing/shortness of breath. fluticasone-vilanterol (BREO ELLIPTA) 200-25 mcg/dose inhaler inhale 1 puff by mouth and INTO THE LUNGS once daily albuterol (PROVENTIL) 2.5 mg /3 mL (0.083 %) nebulizer solution Use 3 mL via nebulizer every 4 hours as needed for wheezing/shortness of breath. traZODone (DESYREL) 100 mg tablet Take 2 tablets by mouth daily at bedtime. Noble Gilbert CNP, [facility]. tiotropium bromide (SPIRIVA RESPIMAT) 2.5 mcg/actuation inhaler Inhale 2 Puffs as instructed once daily. naproxen (NAPROSYN) 500 mg tablet Take 1 tablet by mouth two times a day as needed for pain (for pain/inflammation). Take with food. (Patient not taking: Reported on 01/08/2024) blood sugar diagnostic (BLOOD GLUCOSE TEST) test strip Test blood sugar(s) 1 times daily. Dx: Type 2 DM - Controlled E11.9 Insulin: No Lancets Test blood sugar(s) 1 times daily. Dx: Type 2 DM - Controlled E11.9 Insulin: No FLUoxetine (PROZAC) 40 mg capsule Take 1 capsule by mouth once daily. Noble Gilbert CNP at [facility]. (Patient not taking: Reported on 01/08/2024) Nebulizer NEBULIZER FOR HOME USE. DX: J45.41. Nebulizer and supplies. Face mask preferred. No current facility-administered medications for this visit. ALLERGIES: Latex and Voltaren [Diclofenac Sodium] PERSONAL HISTORY: SOCIAL HISTORY Social History Tobacco Use Smoking status: Every Day Current packs/day: 0.50 Average packs/day: 0.5 packs/day for 43.8 years (21.9 ttl pk-yrs) Types: Cigarettes Start date: 03/1980 Smokeless tobacco: Never Vaping Use Vaping status: Never Used Substance Use Topics Alcohol use: No Drug use: No FAMILY HISTORY: FAMILY HISTORY FAMILY HISTORY Problem Relation Age of Onset Heart Mother 70 Diabetes Mother Hypertension Mother Asthma Mother Hypertension Father Diabetes Father Colon Cancer Father in his seventies Asthma Sister Asthma Brother Seizures Brother Coronary Artery Disease Brother [place] REVIEW OF SYMPTOMS: The review of systems data was entered by the nurse and reviewed by me There are no exam notes on file for this visit. PHYSICAL EXAMINATION: General: The patient is 63 year old female, well nourished, well hydrated in no acute distress. The patient is oriented to time, place, and person. VITALS: Blood pressure 116/72, pulse 80, resp. rate 16, height 152.4 cm (5'), weight 98.4 kg (217 lb), SpO2 97%. Body mass index is 42.38 kg/m?. HEENT: Normal cephalic, ataumatic, pupils are equally round, sclera are an (more content not included)... Normal [facility] NURSING PROGon 01-18-2024 NURSING PROG HNO ID: [id number] Author: AMIRA WIGGINS RN Service: ? Author Type: Registered Nurse Type: Nursing Progress Note Filed: 01/18/2024 09:25 Note Text: pt arrived to phase 2 resting on left side. Daughter at bedside. SR up x 2, call light in reach. Amira Wiggins RN Normal [facility] SURGICAL PATHOLOGYon 024 ADDENDUM 1: Normal [facility] Comment on above: Order Comment: Speci men Type: TISSUE SPECIMENOrdering Facility: [facility] Address: [address] [place] [address] Result Comment: Give n the background of chronic gastritis a Helicobacter pylori immunostain was performed on block A1 and is negative for Helicobacter pylori organisms. Laboratory Developed Test (LDT) Disclaimer: Performance characteristics of immunohistochemical, immunofluorescent and chromogenic in-situ hybridization tests have been determined by the performing laboratory within [facility]???s [facility] Pathology and Laboratory Medicine Department ([facility], [facility], [facility], [facility], [facility], [facility], or [facility]) in a manner consistent with CLIA requirements. One or more of these tests have not been cleared or approved by the FDA. [facility] is regulated under CLIA as qualified to perform high-complexity testing. These tests are used for clinical purposes. They should not be regarded as investigational or for research. Positive and negative controls stain appropriately. Addendum electronically signed by Sunshine Burdick MD on 01/23/2024 at 5:41 PM Performed By: #### S ####[facility] LABCLIA [id number] [address] LABCLIA [id number] [address] CASE REPORT Normal [facility] Comment on above: Order Comment: Speci men Type: TISSUE SPECIMENOrdering Facility: [facility] Address: [address] [place] [address] Result Comment: Surg [facility] Pathology Report Case: [id number] Authorizing Provider: aZchery Toussaint MD Collected: 01/18/2024 09:09 AM Ordering Location: Ambulatory Surgery Received: 01/18/2024 01:10 PM Pathologist: Sunshine Burdick MD Specimens: A) - Stomach, Antrum, Biopsy, Antral bx for H/H B) - Esophagogastric Junction, Biopsy C) - Esophagus, Mid, Biopsy D) - Small Bowel, Duodenum, Biopsy Performed By: #### S ####[facility] LABCLIA [id number] [address] LABCLIA [id number] [address] FINAL DIAGNOSIS Normal [facility] Comment on above: Order Comment: Speci men Type: TISSUE SPECIMENOrdering Facility: [facility] Address: [address] [place] [address] Result Comment: A. S tomach, antrum, biopsy: - Antral and oxyntic-type gastric mucosa with changes of chronic inactive gastritis. - An H. pylori immunohistochemical stain will be performed and reported as an addendum. B. Esophagogastric junction, biopsy: - Mildly inflamed cardiac type gastric mucosa and squamous mucosa with reactive epithelial changes. - No prominence in eosinophils or lymphocytes and no intestinal metaplasia. C. Esophagus, mid, biopsy: - Squamous mucosa with no diagnostic abnormalities. - No prominence in eosinophils or lymphocytes and no intestinal metaplasia. D. Small bowel, duodenum, biopsy: - Duodenal mucosa with no diagnostic abnormalities. Performed By: #### S ####[facility] LABCLIA [id number] [address] LABCLIA [id number] [address] FINAL PERFORMING LAB Normal [facility] Comment on above: Order Comment: Speci men Type: TISSUE SPECIMENOrdering Facility: [facility] Address: [address] [place] [address] Result Comment: Diag nostic interpretation performed at [facility], [address] [place] [address] CLIA# [id number] Chainman: Yimi Rossi M.D. Performed By: #### S ####[facility] LABCLIA [id number] [address] LABCLIA [id number] [address] GROSS DESCRIPTION Normal [facility] Comment on above: Order Comment: Speci men Type: TISSUE SPECIMENOrdering Facility: [facility] Address: [address] [place] [address] Result Comment: A. S tomach, Antrum, Biopsy Received in formalin is one piece of benito, soft tissue measuring 0.5 x 0.4 x 0.2 cm. Totally submitted in one cassette. B. Esophagogastric Junction, Biopsy Received in formalin are multiple pieces of benito-white, soft tissue aggregating to 1.4 x 0.3 x 0.2 cm. Totally submitted in one cassette. C. Esophagus, Mid, Biopsy Received in formalin is one piece of benito-white, soft tissue measuring 0.4 x 0.3 x 0.1 cm. Totally submitted in one cassette. D. Small Bowel, Duodenum, Biopsy Received in formalin are two pieces of bentio, soft tissue aggregating to 1.0 x 0.3 x 0.2 cm. Totally submitted in one cassette. Gross examination performed at [facility], [address] [place] [address] JT 01/18/2024 11:15 PM Performed By: #### S ####[facility] LABCLIA [id number] [address] LABCLIA [id number] [address] Upper GI endoscopyon 11-07-2 024 Upper GI endoscopy [place] [facility] Gastrointestinal Endoscopy Patient Name: Jennifer Mcmullen Procedure Date: 01/18/2024 8:55 AM Date of : 1960 Admit Type: Outpatient Age: 63 Gender: Female Note Status: Finalized Procedure: Upper GI endoscopy Indications: Epigastric abdominal pain, Nausea Providers: Zachery Toussaint MD Patient Profile: This is a 63 year old female. Refer to note in patient chart for documentation of history and physical. Referring Physician: Zachery Toussaint MD (Referring MD), Marianna Easley (Referring MD) Medicines: Fentanyl 50 micrograms IV, Midazolam 4 mg IV, Propofol per Anesthesia, Benzocaine spray Complications: No immediate complications. Estimated blood loss: Minimal. Requesting Provider: Procedure: Pre-Anesthesia Assessment: - Prior to the procedure, a History and Physical was performed, and patient medications and allergies were reviewed. The patient's tolerance of previous anesthesia was also reviewed. The risks and benefits of the procedure and the sedation options and risks were discussed with the patient. All questions were answered, and informed consent was obtained. Prior Anticoagulants: The patient has taken no anticoagulant or antiplatelet agents. ASA Grade Assessment: III - A patient with severe systemic disease. After reviewing the risks and benefits, the patient was deemed in satisfactory condition to undergo the procedure. After obtaining informed consent, the endoscope was passed under direct vision. Throughout the procedure, the patient's blood pressure, pulse, and oxygen saturations were monitored continuously. The Endosonoscope was introduced through the mouth, and advanced to the second part of duodenum. The upper GI endoscopy was accomplished without difficulty. The patient tolerated the procedure well. Moderate Sedation: The administration of moderate sedation was initiated at 09:03 AM. Moderate (conscious) sedation was personally administered by the endoscopist. The following parameters were monitored: oxygen saturation, heart rate, blood pressure, respiratory rate, EKG, adequacy of pulmonary ventilation, and response to care. Total physician intraservice time was 8 minutes. Findings: The Z-line was regular and was found 38 cm from the incisors. Biopsies were taken with a cold forceps for histology. The entire examined stomach was normal. Biopsies were taken with a cold forceps for Helicobacter pylori testing. The examined duodenum was normal. Biopsies for histology were taken with a cold forceps for evaluation of celiac disease. Impression: - Z-line regular, 38 cm from the incisors. Biopsied. - Normal stomach. Biopsied. - Normal examined duodenum. Biopsied. Recommendation: - Patient has a contact number available for emergencies. The signs and symptoms of potential delayed complications were discussed with the patient. Return to normal activities tomorrow. Written discharge instructions were provided to the patient. - Resume previous diet. - Continue present medications. - Await pathology results. - Repeat upper endoscopy PRN for surveillance. - Return to nurse practitioner at appointment to be scheduled. Procedure Code(s): --- Professional --- 65731, Esophagogastroduodenos copy, flexible, transoral; with biopsy, single or multiple Diagnosis Code(s): --- Professional --- R10.13, Epigastric pain R11.0, Nausea CPT copyright 2020 [employer]. All rights reserved. The codes documented in this report are preliminary and upon auto club travel counselor review may be revised to meet current compliance requirements. Attending Participation: I personally performed the entire procedure. Scope In: 9:07:47 AM Scope Out: 9:11:18 AM MD Zachery Lund MD 01/18/2024 9:15:51 AM This report has been signed electronically by Zachery Toussaint MD Number of Addenda: 0 Note Initiated On: 01/18/2024 8:55 AM Estimated Blood Loss: Estimated blood loss was minimal. Normal [facility] [id number] 01-16-2024 [id number] HNO ID: [id number] Author: RUBY KIRKPATRICK PT Service: ? Author Type: Physical Therapist Type: [id number] Filed: 01/16/2024 18:00 Note Text: [facility] Physical Therapy Plan of Care Certification Patient Name: Jennifer Mcmullen : 1960 [facility] #: [id number] Date: 01/16/2024 To: Smiley De La Paz,* From Therapist: Ruby Kirkpatrick PT RE: Patient Certification/ Recertification Your review, approval and electronic signature are required in order to comply with Payor: [facility] MEDICAID / Plan: [facility] MEDICAID / Product Type: Medicaid / regulations. The identified Physical Therapy PLAN OF CARE for the patient is as follows: S83.242D Acute medial meniscus tear of left knee, subsequent encounter (primary encounter diagnosis) M25.562, G89.29 Chronic pain of left knee S83.242A Tear of medial meniscus of left knee, current, unspecified tear type, initial encounter PLAN OF CARE: Assessment: Jennifer Mcmullen presents with chief complaint of L knee pain that interferes with standing, walking, rising from a chair . The patient presents with impairments in ADL's, gait, independence in exercise, overall function, strength, symptom management, and tissue tenderness. PROMIS? (Patient-Reported Outcomes Measurement Information System) scores were reviewed and identified as a rehabilitation concern. Prognosis for therapy is Fair due to: chronic nature of impairments, clinical presentation. The patient will benefit from skilled therapy services to meet the goals established for this plan of care as noted below. Goals for Episode of Care: established 01/16/24 [place] in home exercise program. Patient will decrease pain to 0/10 with functional activities to allow patient to improve ambulation, transfers, and standing tolerance for ADLs. Patient will demonstrate increase in L LE strength to WFL during manual muscle testing in order to improve function for prior functional tasks. Perform standing and walking tasks with decreased report of symptoms/pain in 4 weeks. Decrease 5 time sit to stand to 11.4 seconds to improve rising. Patient Goals: decrease pain Time Frame for Goals and Treatment : 02/13/24 Planned Interventions, Frequency, and Duration: Current Frequency: 1x/week Duration: 4 weeks Total Number of Visits Planned: 4 Planned Treatment Interventions: Therapeutic exercise (23627), Neuromuscular re-education (20204), Manual therapy (96393), Therapeutic activities (34659), Self-penitentiary management (27515), Gait Training (34520), Patient/Family/Caregiv er Education, Body Mechanics Training, General Conditioning PLAN FOR NEXT VISIT: Review, correct and progress HEP to tolerance. Continue with strengthening therex to provide additional stability to L knee and decrease functional limitations. Patient demonstrates good understanding of plan of care and treatment. The above goals and plan of care were discussed and agreed upon by patient/family. For further details regarding this patient refer to the Physical Therapy electronically documented visit dated 01/16/2024. Provider Attestation I have reviewed the treatment plan for Jennifer Mcmullen, [facility]# [id number] for the period of 01/16/24 -- 02/13/24, established on 01/16/2024. Signature certifies the need for therapy services. Normal [facility] CNTHERAPYon 01-16-2024 CNTHERAPY OT/PT/Speech Visit (PTWS) JENNIFER RAMIREZ ([id number]) 1960 F Date Time Provider Department 01/16/24 1:15 PM RUBY KIRKPATRICK PTWS Date Time Provider Department Center 01/16/2024 1:15 PM [id number], BRENT PTWS Vasquez Powell Reason for Visit: PT Eval [747] Primary Visit Diagnosis:Acute medial meniscus tear of left knee, subsequent encounter [S83.242D] Other Visit Diagnoses:Chronic pain of left knee [M25.562, G89.29] Tear of medial meniscus of left knee, current, unspecified tear type, initial encounter [S83.242A] Allergies As of Date: 01/16/2024 Noted Allergy Reaction LATEX 10/10/2013 9 - Itching VOLTAREN (DICLOFENAC SODIUM) 07/31/2015 14 - Other: See Comments Comments: voltaren gel causes burning sensation to area in which it is applied Date Reviewed: 01/08/2024 Reviewed by: Joellen Dennison, HEIDE - Fully Assessed Prescriptions as of 01/16/2024 - topiramate (TOPAMAX) 50 mg tablet Take 1 tablet by mouth two times a day. - naproxen (NAPROSYN) 500 mg tablet Take 1 tablet by mouth two times a day as needed for pain (for pain/inflammation). Take with food. - blood sugar diagnostic (BLOOD GLUCOSE TEST) test strip Test blood sugar(s) 1 times daily. Dx: Type 2 DM - Controlled E11.9 Insulin: No - Lancets Test blood sugar(s) 1 times daily. Dx: Type 2 DM - Controlled E11.9 Insulin: No - albuterol HFA (PROVENTIL HFA, VENTOLIN HFA) 90 mcg/actuation inhaler Inhale 2 Puffs as instructed every 4 hours as needed for wheezing/shortness of breath. - fluticasone-vilanterol (BREO ELLIPTA) 200-25 mcg/dose inhaler inhale 1 puff by mouth and INTO THE LUNGS once daily - FLUoxetine (PROZAC) 40 mg capsule Take 1 capsule by mouth once daily. [facility]. - albuterol (PROVENTIL) 2.5 mg /3 mL (0.083 %) nebulizer solution Use 3 mL via nebulizer every 4 hours as needed for wheezing/shortness of breath. - traZODone (DESYREL) 100 mg tablet Take 2 tablets by mouth daily at bedtime. [facility]. - tiotropium bromide (SPIRIVA RESPIMAT) 2.5 mcg/actuation inhaler Inhale 2 Puffs as instructed once daily. - Nebulizer NEBULIZER FOR HOME USE. DX: J45.41. Nebulizer and supplies. Face mask preferred. Primer Inserting Machine Adjuster: Addendum Therapy (PT/OT/Speech/Resp) ID: [id number] 01/16/2024 5:50 PM Author: RUBY KIRKPATRICK Signed by RUBY KIRKPATRICK PT on 01/16/2024 at 5:51 PM * * * This document replaces document [id number] * * * Document text: Program_ID:[id number] Access Code: [email or web address] URL: [email or web address] Date: 01-16-2024 Prepared By: Ruby Kirkpatrick Program Notes Exercises - Straight Leg Raise - 2-3 x daily - 7 x weekly - 2 sets - 10 reps - Sidelying Hip Abduction - 2-3 x daily - 7 x weekly - 2 sets - 10 reps - Seated Long Arc Quad - 2-3 x daily - 7 x weekly - 2 sets - 10 reps -- Normal [facility] THERAPY NTon 01-16-2024 THERAPY NT HNO ID: [id number] Author: RUBY KIRKPATRICK PT Service: ? Author Type: Physical Therapist Type: Therapy (PT/OT/Speech/Resp) Filed: 01/16/2024 17:51 Note Text: Program_ID:[id number] Access Code: [email or web address] URL: [email or web address] Date: 01-16-2024 Prepared By: Ruby Kirkpatrick Program Notes Exercises - Straight Leg Raise - 2-3 x daily - 7 x weekly - 2 sets - 10 reps - Sidelying Hip Abduction - 2-3 x daily - 7 x weekly - 2 sets - 10 reps - Seated Long Arc Quad - 2-3 x daily - 7 x weekly - 2 sets - 10 reps Normal [facility] CNOVon 01-08-2024 CNOV Office Visit (GENSWS ) JENNIFER RAMIREZ ([id number]) 1960 F Date Time Provider Department 01/08/24 2:45 PM ZACHERY TOUSSAINT During your visit today, we recorded the following information about you: Pulse Respiration Blood pressure Weight 80/minute 16/minute 116/72 98.4 kg Height 1.524 m Zachery Toussaint MD 01/09/2024 8:41 AM Signed HISTORY AND PHYSICAL Jennifer Mcmullen 1960 REFERRING PHYSICIAN: Marianna Yap, APR* CHIEF COMPLAINT: New Patient HPI: The patient is a 63 year old female referred for endoscopy. Jennifer Mcmullen is a 63 year old female who presents today for above. She is here today for follow-up. She was last seen about one month ago, reported chronic left knee pain. She saw orthopedics 12/26 and will be starting PT. Taking naproxen as needed with minor relief. She reports chronic nausea, reflux, epigastric abdominal discomfort that is getting worse. States it is because of her hernia but no record of this. She was on Prilosec but felt it made her symptoms worse so she stopped taking. Jennifer has not undergone prior endoscopy. The patient is being seen by me today at the request of Dr. Yap for my opinion and advice regarding Epigastric abdominal pain Nausea. PAST MEDICAL HISTORY Diagnosis Date Arthritis Asthma Chronic low back pain 05/27/2014 Work injury 2006 Depression [facility] Diabetes mellitus (HCC) Disc slipped disc in back Fracture of right ankle Head injury Helicobacter pylori infection 09/12/2016 Hernia, hiatal Hyperglycemia 2010 Insomnia JOSSELIN (obstructive sleep apnea) 02/25/2019 Post-traumatic headache 01/16/2014 Postmenopausal Prediabetes 04/08/2019 PTSD (post-traumatic stress disorder) Tobacco use PAST SURGICAL HISTORY Procedure Laterality Date APPENDECTOMY 2012 [place] SECTION HX 1980 x 2 CHOLECYSTECTOMY 1989 COLONOSCOPY 01/10/2018 Random bx neg. internal hemorrhoids. lax anal tone. Giovanna [facility] COLONOSCOPY FLX DX W/COLLJ SPEC WHEN PFRMD 06/12/2014 Colonoscopy out pt [facility] EGD 04/10/2018 Hpylori negative - Giovanna in [facility] ESOPHAGOGASTRODUODENOS COPY TRANSORAL DIAGNOSTIC 06/12/2014 EGD outpt [facility] HERNIA REPAIR HX 12/01/2011 TOTAL ABDOMINAL HYSTERECT W/WO RMVL TUBE OVARY 1979 fibroid Current Outpatient Medications Medication Sig topiramate (TOPAMAX) 50 mg tablet Take 1 tablet by mouth two times a day. albuterol HFA (PROVENTIL HFA, VENTOLIN HFA) 90 mcg/actuation inhaler Inhale 2 Puffs as instructed every 4 hours as needed for wheezing/shortness of breath. fluticasone-vilanterol (BREO ELLIPTA) 200-25 mcg/dose inhaler inhale 1 puff by mouth and INTO THE LUNGS once daily albuterol (PROVENTIL) 2.5 mg /3 mL (0.083 %) nebulizer solution Use 3 mL via nebulizer every 4 hours as needed for wheezing/shortness of breath. traZODone (DESYREL) 100 mg tablet Take 2 tablets by mouth daily at bedtime. [facility]. tiotropium bromide (SPIRIVA RESPIMAT) 2.5 mcg/actuation inhaler Inhale 2 Puffs as instructed once daily. naproxen (NAPROSYN) 500 mg tablet Take 1 tablet by mouth two times a day as needed for pain (for pain/inflammation). Take with food. (Patient not taking: Reported on 01/08/2024) blood sugar diagnostic (BLOOD GLUCOSE TEST) test strip Test blood sugar(s) 1 times daily. Dx: Type 2 DM - Controlled E11.9 Insulin: No Lancets Test blood sugar(s) 1 times daily. Dx: Type 2 DM - Controlled E11.9 Insulin: No FLUoxetine (PROZAC) 40 mg capsule Take 1 capsule by mouth once daily. [facility]. (Patient not taking: Reported on 01/08/2024) Nebulizer NEBULIZER FOR HOME USE. DX: J45.41. Nebulizer and supplies. Face mask preferred. No current facility-administered medications for this visit. ALLERGIES: Latex and Voltaren [Diclofenac Sodium] PERSONAL HISTORY: Social History Tobacco Use Smoking status: Every Day Current packs/day: 0.50 Average packs/day: 0.5 packs/day for 43.8 years (21.9 ttl pk-yrs) Types: Cigarettes Start date: 03/1980 Smokeless tobacco: Never Vaping Use Vaping status: Never Used Substance Use Topics Alcohol use: No Drug use: No FAMILY HISTORY: FAMILY HISTORY Problem Relation Age of Onset Heart Mother 70 Diabetes Mother Hypertension Mother Asthma Mother Hypertension Father Diabetes Father Colon Cancer Father in his seventies Asthma Sister Asthma Brother Seizures Brother Coronary Artery Disease Brother [place] REVIEW OF SYMPTOMS: The review of systems data was entered by the nurse and reviewed by me There are no exam notes on file for this visit. PHYSICAL EXAMINATION: General: The patient is 63 year old female, well nourished, well hydrated in no acute distress. The patient is oriented to time, place, and person. VITALS: Blood pressure 116 (more content not included)... Normal [facility] CNOV Office Visit (INTMWS ) JENNIFER RAMIREZ ([id number]) 1960 F Date Time Provider Department 01/08/24 11:00 AM MARIANNA YAP INTMWS During your visit today, we recorded the following information about you: Pulse Respiration Blood pressure Weight 76/minute 14/minute 124/82 96.6 kg Marianna Yap, 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.[facility] 01/08/2024 11:34 AM Signed CC: Patient presents with: Follow Up: [facility] Jennifer Mcmullen is a 63 year old female who presents today for above. She is here today for follow-up. She was last seen about one month ago, reported chronic left knee pain. She saw orthopedics 12/26 and will be starting PT. Taking naproxen as needed with minor relief. She reports chronic nausea, reflux, epigastric abdominal discomfort that is getting worse. States it is because of her hernia but no record of this. She was on Prilosec but felt it made her symptoms worse so she stopped taking. Review of Systems Constitutional: Negative for appetite change, chills, diaphoresis, fatigue, fever and unexpected weight change. HENT: Negative for trouble swallowing. Respiratory: Negative for cough, shortness of breath and wheezing. Cardiovascular: Negative for chest pain, palpitations and leg swelling. Gastrointestinal: Negative for blood in stool, constipation, diarrhea and vomiting. PAST MEDICAL HISTORY Diagnosis Date Arthritis Asthma Chronic low back pain 05/27/2014 Work injury 2006 Depression [facility] Diabetes mellitus (HCC) Disc slipped disc in back Fracture of right ankle Head injury Helicobacter pylori infection 09/12/2016 Hernia, hiatal Hyperglycemia 2010 Insomnia JOSSELIN (obstructive sleep apnea) 02/25/2019 Post-traumatic headache 01/16/2014 Postmenopausal Prediabetes 04/08/2019 PTSD (post-traumatic stress disorder) Tobacco use PAST SURGICAL HISTORY Procedure Laterality Date APPENDECTOMY 2012 [place] SECTION HX 1980 x 2 CHOLECYSTECTOMY 1989 COLONOSCOPY 01/10/2018 Random bx neg. internal hemorrhoids. lax anal tone. Giovanna in [facility] COLONOSCOPY FLX DX W/COLLJ SPEC WHEN PFRMD 06/12/2014 Colonoscopy out pt [facility] EGD 04/10/2018 Hpylori negative - Joseliney in [facility] ESOPHAGOGASTRODUODENOS COPY TRANSORAL DIAGNOSTIC 06/12/2014 EGD outpt [facility] HERNIA REPAIR HX 12/01/2011 TOTAL ABDOMINAL HYSTERECT W/WO RMVL TUBE OVARY 1979 fibroid ALLERGIES Latex and Voltaren [Diclofenac Sodium] MEDICATIONS topiramate (TOPAMAX) 50 mg tablet Take 1 tablet by mouth two times a day. naproxen (NAPROSYN) 500 mg tablet Take 1 tablet by mouth two times a day as needed for pain (for pain/inflammation). Take with food. blood sugar diagnostic (BLOOD GLUCOSE TEST) test strip Test blood sugar(s) 1 times daily. Dx: Type 2 DM - Controlled E11.9 Insulin: No Lancets Test blood sugar(s) 1 times daily. Dx: Type 2 DM - Controlled E11.9 Insulin: No albuterol HFA (PROVENTIL HFA, VENTOLIN HFA) 90 mcg/actuation inhaler Inhale 2 Puffs as instructed every 4 hours as needed for wheezing/shortness of breath. fluticasone-vilanterol (BREO ELLIPTA) 200-25 mcg/dose inhaler inhale 1 puff by mouth and INTO THE LUNGS once daily FLUoxetine (PROZAC) 40 mg capsule Take 1 capsule by mouth once daily. [facility]. albuterol (PROVENTIL) 2.5 mg /3 mL (0.083 %) nebulizer solution Use 3 mL via nebulizer every 4 hours as needed for wheezing/shortness of breath. traZODone (DESYREL) 100 mg tablet Take 2 tablets by mouth daily at bedtime. [facility]. tiotropium bromide (SPIRIVA RESPIMAT) 2.5 mcg/actuation inhaler Inhale 2 Puffs as instructed once daily. Nebulizer NEBULIZER FOR HOME USE. DX: J45.41. Nebulizer and supplies. Face mask preferred. FAMILY HISTORY Problem Relation Age of Onset Heart Mother 70 Diabetes Mother Hypertension Mother Asthma Mother Hypertension Father Diabetes Father Colon Cancer Father in his seventies Asthma Sister Asthma Brother Seizures Brother Coronary Artery Disease Brother [place] Social History Tobacco Use Smoking status: Every Day Current packs/day: 0.50 Average packs/day: 0.5 packs/day for 43.8 years (21.9 ttl pk-yrs) Types: Cigarettes Start date: 03/1980 Smokeless tobacco: Never Vaping Use Vaping status: Never Used Substance Use Topics Alcohol use: No Drug use: No BP 124/82 Pulse 76 Resp 14 Wt 96.6 kg (212 lb 15.4 oz) SpO2 96% BMI 38.95 kg/m? Physical Exam Vitals reviewed. Constitutional: Appearance: Normal appearance. Cardiovascular: Rate and Rhythm: Normal rate and regular rhythm. Pulmonary: Effort: Pulmonary effort is normal. Breath sounds: Normal breath sounds. Abdominal: General: Bowel sounds are normal. There is no distension. Palpations: Abdomen is soft. Tenderness: There is abdominal tenderness (epigastric, mild). There is no guarding or (more content not included)... [facility] HNO ID: [id number] Author: MARYBETH TY CT Service: Radiology Author Type: Technologist Type: Allied Health Filed: 12/27/2023 14:36 Note Text: Radiology Service Progress Note PATIENT NAME: Jennifer Mcmullen DATE OF SERVICE: December 27, 2023 TIME: 2:36 PM PATIENT IDENTITY VERIFICATION COMPLETED USING TWO (2) IDENTIFIERS: Name and Date of confirmed by patient verbally and Name and Date of confirmed by identification band. FALL SCREENING: Has the patient had 2 falls in the last year or 1 fall with injury or currently using an Ambulatory Assistive Device (Walker, Cane, Wheelchair, Crutches, etc.)? No PATIENT GENDER DATA: Female. status: : No status: NO. PATIENT RELEVANT IMPLANT DATA REVIEWED: Not Applicable PATIENT PRESENTS WITH AN IMPLANTABLE OR ATTACHED ASSISTANT PROGRAM MANAGER: No RADIOLOGY DEPARTMENT: CT; Exam(s) Completed: Lung Screening PERIPHERAL IV DATA: Not applicable SIGNED BY: CAMILLE Harley December 27, 2023 2:36 PM [facility] CNOVon 12-27-2023 CNOV Office Visit ([facility] ) JENNIFER RAMIREZ ([id number]) 1960 F Date Time Provider Department 12/27/23 2:30 PM TERRENCE FLORES [facility] During your visit today, we recorded the following information about you: Pulse Blood pressure Weight 90/minute 116/76 97.6 kg Terrence Flores APRN.[facility] 12/29/2023 10:23 AM Signed LUNG SCREENING ANNUAL VISIT PRIMARY CARE PHYSICIAN: Leonid Rice MD PULMONARY PROVIDER: Saw Dr. Hensley in the past. Last visit 2021. Results will be communicated via letter or electronic record if applicable. Visit Delivery: In Person Patient Visit Type: established Current or Ex-smoker? [Current Exam Type: annual LDCT Number of Pack Years: 22 Current smoker (=0) The patient's smoking history is similar to prior year shared decision visit. The reason for the discrepancy is NA Chief Complaint: Established patient in lung cancer screening program here for annual follow-up. Impression / Recommendations Jennifer Mcmullen presents for annual lung cancer screening annual exam and nodule evaluation. Plan: Indeterminate pulmonary nodules: No new nodules of concern were seen on the exam. Low dose CT Scan to be repeated in one year. Plan subject to change pending final radiology report and recommendations. Nature of the lung nodule(s) and the options for further evaluation discussed in detail with patient. Jennifer Mcmullen expressed understanding and is in agreement with plan. 2. Encounter for screening for malignant neoplasm of respiratory organs I have determined that the patient is eligible for continued low dose CT screening based on age, absence of signs or symptoms of lung cancer, smoking history and total pack years. The patient was counseled on the importance of adherence to annual LDCT lung cancer screening, impact of comorbidities and ability or willingness to undergo diagnosis and treatment. The patient understands and feels comfortable with it: Yes. 3. Nicotine Dependence The patient was counseled on the importance of smoking cessation if current smoker and, if appropriate, offered additional tobacco cessation counseling services - Smoking Cessation Counseling. SMOKING CESSATION COUNSELING Smoking cessation methods including Behavior Modification were discussed with the patient and assistance offered. The medical conditions adversely affected by cigarette use include:COPD, Emphysema, and Lung Cancer. Daughter reports she has tried in the past and will go back to smoking. Counseled on benefits of quitting smoking, recommended cessation or reduction to prevent development and/or progression of emphysema. The patient is currently not ready to quit. I personally spent 2 minutes in counseling. The time spent in smoking cessation counseling is exclusive of any other counseling during this visit. I spent a total of 30 minutes on the date of the service which included preparing to see the patient, [id number] patient care, completing clinical documentation, performing a medically appropriate examination, counseling and educating the patient/family/caregiv er, ordering medications, tests, or procedures, communicating with other HCPs (not separately reported), independently interpreting results (not separately reported), communicating results to the patient/family/caregiv er, and care coordination (not separately reported). Terrence Flores APRN.[facility] December 27, 2023 12:08 PM History of Present Illness: Jennifer Mcmullen is a 63 year old female who is presenting today for annual lung cancer screening LDCT and nodule surveillance/managemen t. Patient has no lung nodules found on previous lung cancer screening LDCT. Last LDCT was performed on 03/31/2022 and was LUNG RADS Category 1. Previous potentially significant incidental findings on imaging: None. Accompanied by her daughter and she interprets some things for her. Patient is a current smoker with a 22 pack year history. Patient is currently still smoking 1/2 pack cigarettes daily. Patient will continue to be eligible for lung cancer screening until age 79. The patient does not have any symptoms or signs of lung cancer. Patient has SOB with their daily activity, with stairs. No wheezing or dyspnea. Patient denies feeling of chest tightness/congestion in the chest. Patient does not have a new or concerning cough, and denies hemoptysis. Patient does not have a chronic daily cough. Denies regular or recent fevers/chills. Patient does not have any significant unintentional weight loss. Patient denies having any respiratory infections or COVID-19 in the past few months. Taking Breo and spiriva daily. Modified Medical Research [place] Dyspnea Scale (MMRC) (more content not included)... Normal [facility] Office Visit (ORMDNA ) JENNIFER RAMIREZ ([id number]) 1960 F Date Time Provider Department 12/27/23 1:30 PM SMILEY DE LA PAZ During your visit today, we recorded the following information about you: Smiley De La Paz DO 12/27/2023 1:43 PM Signed Reason for Visit/Chief Complaint Jennifer Mcmullen is a 63 year old female who presents today for a new evaluation of following complaint: Patient presents with: Left Knee - Knee Pain, New History of Present Illness: PAIN EVALUATION 12/27/2023 1316 Pain Level: 2 increases with activity Description: Sore;Aching;Throbbing gives out Duration Units: Years Frequency: Intermittent Intervention/Comfort measure: -- tylenol, HPI: Jennifer Mcmullen is a 63 year old female presenting today with left knee pain. Patient has been having knee pain for years. Had an injury in 2000, placed on disability. She is now starting to have similar pains where her knee will give out and she sustains falls. Pain history is noted as above. Denies calf pain, numbness, tingling, fever, chills or other constitutional symptoms. Previous Treatments: Ice: No Heat: No Brace: No NSAIDs: Yes, tylenol Injections: No Surgeries: No Physical Therapy: No Review of Systems: Patient did not have, and does not currently have, any weight loss, malaise, fever, chills, headache, chest pain, chest pressure, palpitations, cough, shortness of breath, orthopnea, paroxsymal nocturnal dyspnea, nausea, vomiting, diarrhea, constipation, melena, hematochezia, urinary difficulties, prolonged bleeding, easily bruising, heat or cold intolerance, new onset joint pain or swelling, new onset extremity weakness or numbness, new onset auditory or visual disturbances, lightheadedness, dizziness, partial loss of consciousness or full loss of consciousness. Current Outpatient Medications on File Prior to Visit Medication Sig omeprazole (PRILOSEC) 40 mg capsule Take 1 capsule by mouth once daily. topiramate (TOPAMAX) 50 mg tablet Take 1 tablet by mouth two times a day. naproxen (NAPROSYN) 500 mg tablet Take 1 tablet by mouth two times a day as needed for pain (for pain/inflammation). Take with food. cyclobenzaprine (FLEXERIL) 10 mg tablet Take 1 tablet by mouth at bedtime as needed for muscle spasm. blood sugar diagnostic (BLOOD GLUCOSE TEST) test strip Test blood sugar(s) 1 times daily. Dx: Type 2 DM - Controlled E11.9 Insulin: No Lancets Test blood sugar(s) 1 times daily. Dx: Type 2 DM - Controlled E11.9 Insulin: No albuterol HFA (PROVENTIL HFA, VENTOLIN HFA) 90 mcg/actuation inhaler Inhale 2 Puffs as instructed every 4 hours as needed for wheezing/shortness of breath. fluticasone-vilanterol (BREO ELLIPTA) 200-25 mcg/dose inhaler inhale 1 puff by mouth and INTO THE LUNGS once daily FLUoxetine (PROZAC) 40 mg capsule Take 1 capsule by mouth once daily. Noble Gilbert CNP at the [facility]. albuterol (PROVENTIL) 2.5 mg /3 mL (0.083 %) nebulizer solution Use 3 mL via nebulizer every 4 hours as needed for wheezing/shortness of breath. polyethylene glycol 3350 (MIRALAX) 17 gram/dose powder Take 17 g by mouth once daily as needed for constipation. traZODone (DESYREL) 100 mg tablet Take 2 tablets by mouth daily at bedtime. Noble Gilbert, [facility]. tiotropium bromide (SPIRIVA RESPIMAT) 2.5 mcg/actuation inhaler Inhale 2 Puffs as instructed once daily. Nebulizer NEBULIZER FOR HOME USE. DX: J45.41. Nebulizer and supplies. Face mask preferred. No current facility-administered medications on file prior to visit. ALLERGIES Allergen Reactions Latex Itching Voltaren [Diclofena* Other: See Comments voltaren gel causes burning sensation to area in which it is applied Physical Exam: Vitals: There were no vitals taken for this visit. Psych: Pleasant, good affect and mood General Appearance: Well appearing, alert, in no acute distress, well-hydrated, well nourished.. Skin: Skin color, texture, turgor normal, no suspicious rashes or lesions. Peripheral Pulses: Normal. Neurologic: Gait normal. Reflexes normal and symmetric. Sensation grossly intact.. Lymph Nodes: No cervical lymphadenopathy, No supraclavicular lymphadenopathy, No axillary lymphadenopathy., and No inguinal lymphadenopathy.. Respiratory: No recent pulmonary infection, hemoptysis, chronic cough, or shortness of breath at rest Rheumatologic: Joint deformities: left knee pain Right Knee Exam Right knee exam is normal. Muscle Strength The patient has normal right knee strength. Tenderness The patient is experiencing no tenderness. Range of Motion Extension: normal Flexion: normal Tests Gina: Anterior - negative Posterior - negative Drawer: Anterior - negative Posterior - negative Other Erythema: absent Sensation: normal Pulse: present Swel (more content not included)... Normal [facility] CT Chest for screening WO co ntraston 12-27-2023 IMPRESSION: LungRADS category: 1 LungRADS modifier: None LungRADS 0 reason: n/a Recommendations: Continue annual screening with LDCT in 12 months. Other actionable findings: - ========= Reference: [employer]. Lung CT Screening Reporting and Data System (Lung-RADS). Available at: http://[email or web address]/Andrew [email or web address]/ LungRADS Operational Communication Chief: AMADO Transcribe Date/Time: Dec 27 2023 4:14P Dictated by : ILEANA MARQUEZ MD This examination was interpreted and the report reviewed and electronically signed by: ILEANA MARQUEZ MD on Dec 27 2023 4:28PM [facility] * * *Final Report* * * DATE OF EXAM: Dec 27 2023 2:44PM [facility] 0562 - CT LUNG SCREEN WO IVCON / PROCEDURE REASON: multiple diagnoses * * * * Physician Interpretation * * * * EXAMINATION: CHEST CT WITHOUT CONTRAST (LOW-DOSE CT LUNG CANCER SCREENING PROTOCOL) CLINICAL HISTORY: Lung cancer LDCT screening ? absence of signs or symptoms of lung cancer. Technique: Spiral CT acquisition of the chest from the thoracic inlet to the upper abdomen without contrast. MQ: CTLCS_6 Patient characteristics: * Tgnt-dx-Ssxkj: 1960; Age at exam: 63 years * Gender: Female * Lung Disease: Asymptomatic (no signs or symptoms of lung disease) * Number of Pack Years: 21.9 * Current smoker (=0) or Number of Years since Quit: 0 * Ordering provider and NPI: ARCELIA GARCIA [id number] * Interpreting radiologist and NPI: John [id number] Exam acquisition parameters: * Exam Date: 12/27/2023 2:44 PM * Site: [facility] * * CT System [employer] Principal: [employer] * CT System Model: Kapow Events * Tube Current-Time (mA-sec): 60 * Peak Voltage (kV): 120V * Scan Time (sec): 4.56 * Scan Volume (z-length, cm): 31.30 * Pitch: .984 * Slice Thickness (mm): 1.25 * CT Dose-Length Product: 2.65 mGy*cm * CT Dose Index: 2.65mGy * CT Dose Reduction Method: Iterative recon and mAs-kVp adjusted using patient size-age COMPARISON: 03/31/2022 RESULT: Are nodules present? Yes, 1-5 nodules If No, go to IMPRESSION. If yes, proceed with characterization of the FIVE largest nodules. Nodule 1: This Calcified nodule is located in the Right Lower Lobe on slice number 136 with an average diameter of 4.5 mm (5.4 mm x 3.5 mm). This calcified nodule is unchanged and is consistent with a granuloma. If this is an ANNUAL LDCT for LCS, please ensure nodule number is the same as in the prior evaluation. Other lung nodule comments: Other findings: Linear atelectasis/scarring is noted in the lingula and the left lower lobe. No consolidation is noted. Central airways are patent. No pleural effusion. The thyroid gland is unremarkable. Few subcentimeter mediastinal and bilateral axillary lymph nodes are nonspecific. The esophagus is nondistended. The thoracic aorta are normal in caliber. The arch vessel branching pattern is bovine (i.e., common trunk of the innominate and left common carotid artery). Central pulmonary arteries are normal in size. Cardiac chambers are normal in size. Trace pericardial fluid is noted. The patient is status post cholecystectomy. Surgical material is noted in the anterior abdominal wall. Mild degenerative changes are noted in the thoracic spine. Emphysema: None Coronary Artery Calcifications: Circumflex None; Left Anterior Descending None; Right Coronary None Localizer images: No additional findings. - [facility] Provider, [facility] - 12/27/2023 * * *Final Report* * * DATE OF EXAM: Dec 27 2023 2:44PM [facility] 0562 - CT LUNG SCREEN WO IVCON / PROCEDURE REASON: multiple diagnoses * * * * Physician Interpretation * * * * EXAMINATION: CHEST CT WITHOUT CONTRAST (LOW-DOSE CT LUNG CANCER SCREENING PROTOCOL) CLINICAL HISTORY: Lung cancer LDCT screening ? absence of signs or symptoms of lung cancer. Technique: Spiral CT acquisition of the chest from the thoracic inlet to the upper abdomen without contrast. MQ: CTLCS_6 Patient characteristics: * Ntpu-yz-Hxomc: 1960; Age at exam: 63 years * Gender: Female * Lung Disease: Asymptomatic (no signs or symptoms of lung disease) * Number of Pack Years: 21.9 * Current smoker (=0) or Number of Years since Quit: 0 * Ordering provider and NPI: ARCELIA GARCIA [id number] * Interpreting radiologist and NPI: John [id number] Exam acquisition parameters: * Exam Date: 12/27/2023 2:44 PM * Site: [facility] * * CT System [employer] Principal: [employer] * CT System Model: Kapow Events * Tube Current-Time (mA-sec): 60 * Peak Voltage (kV): 120V * Scan Time (sec): 4.56 * Scan Volume (z-length, cm): 31.30 * Pitch: .984 * Slice Thickness (mm): 1.25 * CT Dose-Length Product: 2.65 mGy*cm * CT Dose Index: 2.65mGy * CT Dose Reduction Method: Iterative recon and mAs-kVp adjusted using patient size-age COMPARISON: 03/31/2022 RESULT: Are nodules present? Yes, 1-5 nodules If No, go to IMPRESSION. If yes, proceed with characterization of the FIVE largest nodules. Nodule 1: This Calcified nodule is located in the Right Lower Lobe on slice number 136 with an average diameter of 4.5 mm (5.4 mm x 3.5 mm). This calcified nodule is unchanged and is consistent with a granuloma. If this is an ANNUAL LDCT for LCS, please ensure nodule number is the same as in the prior evaluation. Other lung nodule comments: Other findings: Linear atelectasis/scarring is noted in the lingula and the left lower lobe. No consolidation is noted. Central airways are patent. No pleural effusion. The thyroid gland is unremarkable. Few subcentimeter mediastinal and bilateral axillary lymph nodes are nonspecific. The esophagus is nondistended. The thoracic aorta are normal in caliber. The arch vessel branching pattern is bovine (i.e., common trunk of the innominate and left common carotid artery). Central pulmonary arteries are normal in size. Cardiac chambers are normal in size. Trace pericardial fluid is noted. The patient is status post cholecystectomy. Surgical material is noted in the anterior abdominal wall. Mild degenerative changes are noted in the thoracic spine. Emphysema: None Coronary Artery Calcifications: Circumflex None; Left Anterior Descending None; Right Coronary None Localizer images: No additional findings. - IMPRESSION IMPRESSION: LungRADS category: 1 LungRADS modifier: None LungRADS 0 reason: n/a Recommendations: Continue annual screening with LDCT in 12 months. Other actionable findings: - ========= Reference: [employer]. Lung CT Screening Reporting and Data System (Lung-RADS). Available at: http://[email or web address]/[email or web address] [email or web address]/ LungRADS Operational Communication Chief: AMADO Transcribe Date/Time: Dec 27 2023 4:14P Dictated by : ILEANA MARQUEZ MD This examination was interpreted and the report reviewed and electronically signed by: ILEANA MARQUEZ MD on Dec 27 2023 4:28PM EST [facility] Radiology Study observation (narrative) [facility] CT Chest for screening WO co ntrastOrdered By: [facility] Provider on 12-27-[address] [facility] [address] LUNG SCREEN WO IVCONon CT LUNG SCREEN WO IVCON * * *Final Report* * * DATE OF EXAM: Dec 27 2023 2:44PM [facility] 0562 - CT LUNG SCREEN WO IVCON / PROCEDURE REASON: multiple diagnoses * * * * Physician Interpretation * * * * EXAMINATION: CHEST CT WITHOUT CONTRAST (LOW-DOSE CT LUNG CANCER SCREENING PROTOCOL) CLINICAL HISTORY: Lung cancer LDCT screening ? absence of signs or symptoms of lung cancer. Technique: Spiral CT acquisition of the chest from the thoracic inlet to the upper abdomen without contrast. MQ: CTLCS_6 Patient characteristics: * Tdnc-vp-Dsojh: 1960; Age at exam: 63 years * Gender: Female * Lung Disease: Asymptomatic (no signs or symptoms of lung disease) * Number of Pack Years: 21.9 * Current smoker (=0) or Number of Years since Quit: 0 * Ordering provider and NPI: ARCELIA GARCIA [id number] * Interpreting radiologist and NPI: John [id number] Exam acquisition parameters: * Exam Date: 12/27/2023 2:44 PM * Site: [facility] * * CT System [employer] Principal: [employer] * CT System Model: [employer] * Tube Current-Time (mA-sec): 60 * Peak Voltage (kV): 120V * Scan Time (sec): 4.56 * Scan Volume (z-length, cm): 31.30 * Pitch: .984 * Slice Thickness (mm): 1.25 * CT Dose-Length Product: 2.65 mGy*cm * CT Dose Index: 2.65mGy * CT Dose Reduction Method: Iterative recon and mAs-kVp adjusted using patient size-age COMPARISON: 03/31/2022 RESULT: Are nodules present? Yes, 1-5 nodules If No, go to IMPRESSION. If yes, proceed with characterization of the FIVE largest nodules. Nodule 1: This Calcified nodule is located in the Right Lower Lobe on slice number 136 with an average diameter of 4.5 mm (5.4 mm x 3.5 mm). This calcified nodule is unchanged and is consistent with a granuloma. If this is an ANNUAL LDCT for LCS, please ensure nodule number is the same as in the prior evaluation. Other lung nodule comments: Other findings: Linear atelectasis/scarring is noted in the lingula and the left lower lobe. No consolidation is noted. Central airways are patent. No pleural effusion. The thyroid gland is unremarkable. Few subcentimeter mediastinal and bilateral axillary lymph nodes are nonspecific. The esophagus is nondistended. The thoracic aorta are normal in caliber. The arch vessel branching pattern is bovine (i.e., common trunk of the innominate and left common carotid artery). Central pulmonary arteries are normal in size. Cardiac chambers are normal in size. Trace pericardial fluid is noted. The patient is status post cholecystectomy. Surgical material is noted in the anterior abdominal wall. Mild degenerative changes are noted in the thoracic spine. Emphysema: None Coronary Artery Calcifications: Circumflex None; Left Anterior Descending None; Right Coronary None Localizer images: No additional findings. - IMPRESSION: LungRADS category: 1 LungRADS modifier: None LungRADS 0 reason: n/a Recommendations: Continue annual screening with LDCT in 12 months. Other actionable findings: - ========= Reference: [employer]. Lung CT Screening Reporting and Data System (Lung-RADS). Available at: http://www.acr.org/Andrew lity-[email or web address]/ LungRADS Operational Communication Chief: AMADO Transcribe Date/Time: Dec 27 2023 4:14P Dictated by : ILEANA MARQUEZ MD This examination was interpreted and the report reviewed and electronically signed by: ILEANA MARQUEZ MD on Dec 27 2023 4:28PM EST [id number] [facility] 12-05-2023 CNP Telephone (INTMWS) JENNIFER RAMIREZ ([id number]) 1960 F Date Time Provider Department 12/05/23 EDDIE RODRÍGUEZ INTMWS During your visit today, we recorded the following information about you: Natividad Cortes LPN 12/05/2023 2:04 PM Signed ----- Message from Eddie Jarquin APRN.CNS sent at 12/05/2023 1:55 PM EDT ----- Please let her know that there is mild arthritic changes noted on knee x-ray. Mild medial compartment joint space narrowing. Natividad Cortes LPN 12/05/2023 2:08 PM Signed Phoned patient spoke to daughter Shanthi and went over results, notes from Eddie Rodríguez PRODUCTION CONSULTANT with understanding. Daughter asking what did PRODUCTION CONSULTANT want her to do next? See Ortho? Eddie Rodríguez APRN.CNS 12/05/2023 2:16 PM Signed Continue with current medicines, try walking a bit daily before bedtime. I placed a consult for orthopedics, she can make an appointment now if not noting improvement Faith Lanier LPN 12/05/2023 2:46 PM Signed Patients daughter notified of providers message and verbalized understanding. Nishi Maki would like to make an appointment with orthopedics. Encounter routed to PSS to assist patients daughter in scheduling [place] [facility], [place] 12/05/2023 3:37 PM Signed 1st attempt left daughter Shanthi message to return call to schedule ortho consult. Ligia Armijo LPN 12/07/2023 4:[address] Ligia Armijo LPN Allergies As of Date: 12/05/2023 Noted Allergy Reaction LATEX 10/10/2013 9 - Itching VOLTAREN (DICLOFENAC SODIUM) 07/31/2015 14 - Other: See Comments Comments: voltaren gel causes burning sensation to area in which it is applied Date Reviewed: 12/01/2023 Reviewed by: Willis Jacobo MA - Fully Assessed Reason for Visit: Results [95] Primary Visit Diagnosis:Chronic pain of left knee [M25.562, G89.29] Order(s):CONSULT TO ORTHOPAEDICS [9026] Order #: [id number]: 1 FUTURE Prescriptions as of 12/07/2023 - omeprazole (PRILOSEC) 40 mg capsule Take 1 capsule by mouth once daily. - topiramate (TOPAMAX) 50 mg tablet Take 1 tablet by mouth two times a day. - naproxen (NAPROSYN) 500 mg tablet Take 1 tablet by mouth two times a day as needed for pain (for pain/inflammation). Take with food. - cyclobenzaprine (FLEXERIL) 10 mg tablet Take 1 tablet by mouth at bedtime as needed for muscle spasm. - blood sugar diagnostic (BLOOD GLUCOSE TEST) test strip Test blood sugar(s) 1 times daily. Dx: Type 2 DM - Controlled E11.9 Insulin: No - Lancets Test blood sugar(s) 1 times daily. Dx: Type 2 DM - Controlled E11.9 Insulin: No - albuterol HFA (PROVENTIL HFA, VENTOLIN HFA) 90 mcg/actuation inhaler Inhale 2 Puffs as instructed every 4 hours as needed for wheezing/shortness of breath. - fluticasone-vilanterol (BREO ELLIPTA) 200-25 mcg/dose inhaler inhale 1 puff by mouth and INTO THE LUNGS once daily - FLUoxetine (PROZAC) 40 mg capsule Take 1 capsule by mouth once daily. Noble Gilbert CNP at the [facility]. - albuterol (PROVENTIL) 2.5 mg /3 mL (0.083 %) nebulizer solution Use 3 mL via nebulizer every 4 hours as needed for wheezing/shortness of breath. - polyethylene glycol 3350 (MIRALAX) 17 gram/dose powder Take 17 g by mouth once daily as needed for constipation. - traZODone (DESYREL) 100 mg tablet Take 2 tablets by mouth daily at bedtime. Noble Gilbert, [facility]. - tiotropium bromide (SPIRIVA RESPIMAT) 2.5 mcg/actuation inhaler Inhale 2 Puffs as instructed once daily. - Nebulizer NEBULIZER FOR HOME USE. DX: J45.41. Nebulizer and supplies. Face mask preferred. Problem List As Of Date 12/05/2023 Noted Resolved Irreducible ventral hernia [K43.6] 03/02/2011 08/17/2018 Depression [F32.A] Disc [MXG6020] 08/17/2018 Hyperglycemia [R73.9] 12/15/2018 NEGATIVE MEDICAL HISTORY [V999.96] 08/17/2018 Tobacco use [Z72.0] Family history of colon cancer [Z80.0] 01/28/2014 Epigastric abdominal pain [R10.13] 01/28/2014 Abnormality of gait [R26.9] 01/28/2014 04/02/2021 Anxiety [F41.9] 04/09/2014 Back ache [M54.9] 04/09/2014 08/17/2018 Knee pain [M25.569] 05/27/2014 08/17/2018 DDD (degenerative disc disease), lumbar [M51.36]05/27/2014 Chronic low back pain [M54.50, G89.29] 05/27/2014 Constipation [K59.00] 06/06/2014 Myofascial pain [M79.18] 10/17/2014 08/17/2018 Asthma [J45.909] 01/15/2015 Incisional pain [L76.82] 02/06/2015 08/17/2018 Bilateral low back pain without sciatica [M54.5*02/16/2015 08/17/2018 Chronic pain [G89.29] 07/31/2015 08/17/2018 Helicobacter pylori infection [A04.8] 09/12/2016 08/17/2018 Post-traumatic headache [G44.309] 01/16/2014 JOSSELIN (obstructive sleep apnea) [G47.33] 02/25/2019 Obesity, Class III, BMI >= 40 [E66.01] 04/03/2019 Prediabetes [R73.03] 04/08/2019 10/28/2020 Acute pain of left shoulder [M25.512] 08/06/2020 04/02/2021 Type 2 diabetes mellitus without complication, *09/30/2020 Screening for colon cancer [Z12 (more content not included)... Normal [facility] CNPN Telephone (INTMWS) JENNIFER RAMIREZ ([id number]) 1960 F Date Time Provider Department 12/05/23 EDDIE RODRÍGUEZ During your visit today, we recorded the following information about you: Faith Lanier LPN 12/05/2023 11:04 AM Signed ----- Message from Eddie Jarquin APRN.CNS sent at 12/05/2023 10:44 AM EDT ----- Please let her know that labs overall in acceptable range. .There are some arthritic changes noted on lumbar spine x-ray. X-ray knee result is still pending. She has not yet scheduled follow-up visit. Rejuliannad a 1 mo recheck DM, labs, pain with PCP or [facility]. Faith Lanier LPN 12/05/2023 11:05 AM Signed Patients daughter notified of providers message and verbalized understanding. Appointment scheduled with PRODUCTION CONSULTANT Allergies As of Date: 12/05/2023 Noted Allergy Reaction LATEX 10/10/2013 9 - Itching VOLTAREN (DICLOFENAC SODIUM) 07/31/2015 14 - Other: See Comments Comments: voltaren gel causes burning sensation to area in which it is applied Date Reviewed: 12/01/2023 Reviewed by: Donnell, Willis, MA - Fully Assessed Reason for Visit: Results [95] Prescriptions as of 12/05/2023 - omeprazole (PRILOSEC) 40 mg capsule Take 1 capsule by mouth once daily. - topiramate (TOPAMAX) 50 mg tablet Take 1 tablet by mouth two times a day. - naproxen (NAPROSYN) 500 mg tablet Take 1 tablet by mouth two times a day as needed for pain (for pain/inflammation). Take with food. - cyclobenzaprine (FLEXERIL) 10 mg tablet Take 1 tablet by mouth at bedtime as needed for muscle spasm. - blood sugar diagnostic (BLOOD GLUCOSE TEST) test strip Test blood sugar(s) 1 times daily. Dx: Type 2 DM - Controlled E11.9 Insulin: No - Lancets Test blood sugar(s) 1 times daily. Dx: Type 2 DM - Controlled E11.9 Insulin: No - albuterol HFA (PROVENTIL HFA, VENTOLIN HFA) 90 mcg/actuation inhaler Inhale 2 Puffs as instructed every 4 hours as needed for wheezing/shortness of breath. - fluticasone-vilanterol (BREO ELLIPTA) 200-25 mcg/dose inhaler inhale 1 puff by mouth and INTO THE LUNGS once daily - FLUoxetine (PROZAC) 40 mg capsule Take 1 capsule by mouth once daily. [facility]. - albuterol (PROVENTIL) 2.5 mg /3 mL (0.083 %) nebulizer solution Use 3 mL via nebulizer every 4 hours as needed for wheezing/shortness of breath. - polyethylene glycol 3350 (MIRALAX) 17 gram/dose powder Take 17 g by mouth once daily as needed for constipation. - traZODone (DESYREL) 100 mg tablet Take 2 tablets by mouth daily at bedtime. [facility] C[facility]. - tiotropium bromide (SPIRIVA RESPIMAT) 2.5 mcg/actuation inhaler Inhale 2 Puffs as instructed once daily. - Nebulizer NEBULIZER FOR HOME USE. DX: J45.41. Nebulizer and supplies. Face mask preferred. Problem List As Of Date 12/05/2023 Noted Resolved Irreducible ventral hernia [K43.6] 03/02/2011 08/17/2018 Depression [F32.A] Disc [VFP4649] 08/17/2018 Hyperglycemia [R73.9] 12/15/2018 NEGATIVE MEDICAL HISTORY [V999.96] 08/17/2018 Tobacco use [Z72.0] Family history of colon cancer [Z80.0] 01/28/2014 Epigastric abdominal pain [R10.13] 01/28/2014 Abnormality of gait [R26.9] 01/28/2014 04/02/2021 Anxiety [F41.9] 04/09/2014 Back ache [M54.9] 04/09/2014 08/17/2018 Knee pain [M25.569] 05/27/2014 08/17/2018 DDD (degenerative disc disease), lumbar [M51.36]05/27/2014 Chronic low back pain [M54.50, G89.29] 05/27/2014 Constipation [K59.00] 06/06/2014 Myofascial pain [M79.18] 10/17/2014 08/17/2018 Asthma [J45.909] 01/15/2015 Incisional pain [L76.82] 02/06/2015 08/17/2018 Bilateral low back pain without sciatica [M54.5*02/16/2015 08/17/2018 Chronic pain [G89.29] 07/31/2015 08/17/2018 Helicobacter pylori infection [A04.8] 09/12/2016 08/17/2018 Post-traumatic headache [G44.309] 01/16/2014 JOSSELIN (obstructive sleep apnea) [G47.33] 02/25/2019 Obesity, Class III, BMI >= 40 [E66.01] 04/03/2019 Prediabetes [R73.03] 04/08/2019 10/28/2020 Acute pain of left shoulder [M25.512] 08/06/2020 04/02/2021 Type 2 diabetes mellitus without complication, *09/30/2020 Screening for colon cancer [Z12.11] 09/13/2023 Encounter Status:Closed by FAITH LANIER on 12/05/23 Normal [facility] ALBUMIN/CREATININE RATIO, UR INEon 12-01-2023 Albumin DL <= 20 mg/L (U) [Mass/Vol] mg/dL Normal [facility] Comment on above: Order Comment: Speci men Type: URINE SPECIMENOrdering Facility: [facility] Address: [address] [place] [address] Performed By: #### U ACR ####[facility] LABCL[facility] [id number] [place] [address] [place] Albumin/Creatinine (U) [Mass ratio] <6 Normal <30 [facility] Comment on above: Order Comment: Speci men Type: URINE SPECIMENOrdering Facility: [facility] Address: [address] [place] [address] Result Comment: Adul t Male and Female Nephrotic Criteria: <30 mg/g is considered normal to mildly increased 30-300 mg/g is considered moderately increased >300 mg/g is considered severely increased KDIGO. (2013). KDIGO 2012 Clinical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 carefully reviewed the data and reached the following consensus: 1) All women should engage in shared decision-making with their providers to decide when to start and how often to screen; 2) All women should have the opportunity to start screening mammography at age 40; 3) For women ages 45-55, we recommend annual screening mammograms; 4) For women ages 55 and over, we support both the transition from an annual to a biennial interval if this aligns more with patient's values and preferences, or continuation with annual screening; 5) All women should discuss with their providers when to stop screening mammograms. [employer] Sales [employer] Service Rep(s): Haley Howard, [facility]; Naima Kowalski RT(R)(M), [facility] OVERALL STUDY BIRADS: PROBABLY BENIGN Operational Communication Chief: Aristides Transcribe Date/Time: Oct 03 2023 2:20P Dictated by : EVELIA IVERSON MD This examination was interpreted and the report reviewed and electronically signed by: EVELIA IVERSON MD on Oct 03 2023 3:16PM EST [facility] [id number] 09-13-2023 [id number] HNO ID: [id number] Author: CHARLEEN KRAMER RN Service: ? Author Type: Registered Nurse Type: [id number] Filed: 09/13/2023 08:13 Note Text: The patient received a copy of Colonoscopy discharge instructions that contain information for how to contact the physician who performed the procedure and when to seek medical care. Normal [facility] Colonoscopyon 09-13-2023 Colonoscopy [facility] Gastrointestinal Endoscopy Patient Name: Jennifer Mcmullen Procedure Date: 09/13/2023 7:18 AM Date of : 1960 Admit Type: Outpatient Age: 62 Gender: Female Note Status: Finalized Procedure: Colonoscopy Indications: Screening for colorectal malignant neoplasm Providers: Zachery Toussaint MD Patient Profile: This is a 62 year old female. Refer to note in patient chart for documentation of history and physical. Last Colonoscopy: 2017. Referring Physician: Marianna costello) Kaushal (Referring MD) Medicines: Fentanyl 75 micrograms IV, Midazolam 4 mg IV, Diphenhydramine 50 mg IV Complications: No immediate complications. Estimated blood loss: Minimal. Requesting Provider: Procedure: Pre-Anesthesia Assessment: - Prior to the procedure, a History and Physical was performed, and patient medications and allergies were reviewed. The patient's tolerance of previous anesthesia was also reviewed. The risks and benefits of the procedure and the sedation options and risks were discussed with the patient. All questions were answered, and informed consent was obtained. Prior Anticoagulants: The patient has taken no anticoagulant or antiplatelet agents. ASA Grade Assessment: III - A patient with severe systemic disease. After reviewing the risks and benefits, the patient was deemed in satisfactory condition to undergo the procedure. After I obtained informed consent, the scope was passed under direct vision. Throughout the procedure, the patient's blood pressure, pulse, and oxygen saturations were monitored continuously. The Colonoscope was introduced through the anus and advanced to the cecum, identified by appendiceal orifice and ileocecal valve. The colonoscopy was performed without difficulty. The patient tolerated the procedure well. The quality of the bowel preparation was poor. The ileocecal valve, appendiceal orifice, and rectum were photographed. Moderate Sedation: The administration of moderate sedation was initiated at 07:38 AM. Moderate (conscious) sedation was personally administered by the endoscopist. The following parameters were monitored: oxygen saturation, heart rate, blood pressure, respiratory rate, EKG, adequacy of pulmonary ventilation, and response to care. Total physician intraservice time was 22 minutes. Findings: The perianal and digital rectal examinations were normal. A small polyp was found in the ascending colon. The polyp was sessile. The polyp was removed with a jumbo cold forceps. Resection and retrieval were complete. Copious quantities of semi-liquid semi-solid stool was found in the entire colon, precluding visualization. Lavage of the area was performed using a large amount of normal saline, resulting in incomplete clearance with continued poor visualization. The colon (entire examined portion) appeared normal. Biopsies for histology were taken with a cold forceps from the entire colon for evaluation of microscopic colitis. The exam was otherwise without abnormality on direct and retroflexion views. Impression: - Preparation of the colon was poor. - One small polyp in the ascending colon, removed with a jumbo cold forceps. Resected and retrieved. - Stool in the entire examined colon. - The entire examined colon is normal. Biopsied. - The examination was otherwise normal on direct and retroflexion views. Recommendation: - Patient has a contact number available for emergencies. The signs and symptoms of potential delayed complications were discussed with the patient. Return to normal activities tomorrow. Written discharge instructions were provided to the patient. - Resume previous diet. - Continue present medications. - Await pathology results. - Repeat colonoscopy in 3 years for surveillance. Secondary to poor bowel prep! - Return to referring physician at appointment to be scheduled. Procedure Code(s): --- Professional --- 58852, Colonoscopy, flexible; with biopsy, single or multiple G0500, Moderate sedation services provided by the same physician or other qualified health personal caregiver performing a gastrointestinal endoscopic service that sedation supports, requiring the presence of an independent trained observer to assist in the monitoring of the patient's level of consciousness and physiological status; initial 15 minutes of intra-service time; patient age 5 years or older (additional time may be reported with 72262, as appropriate) Diagnosis Code(s): --- Professional --- Z12.11, Encounter for screening for malignant neoplasm of colon D12.2, Benign neoplasm of ascending colon CPT copyright 2020 [employer]. All rights reserved. The codes documented in this report are preliminary and upon auto club travel counselor review may be revised to meet current compliance requirements. Attending Participation: I personally performed the entire procedure. (more content not included)... Normal [facility] Colonoscopy Study observatio non 09-13-2023 [facility] Gastrointestinal Endoscopy Patient Name: Jennifer Mcmullen Procedure Date: 09/13/2023 7:18 AM Date of : 1960 Admit Type: Outpatient Age: 62 Gender: Female Note Status: Finalized Procedure: Colonoscopy Indications: Screening for colorectal malignant neoplasm Providers: Zachery Toussaint MD Patient Profile: This is a 62 year old female. Refer to note in patient chart for documentation of history and physical. Last Colonoscopy: 2017. Referring Physician: Marianna Easley (Referring MD) Medicines: Fentanyl 75 micrograms IV, Midazolam 4 mg IV, Diphenhydramine 50 mg IV Complications: No immediate complications. Estimated blood loss: Minimal. Requesting Provider: Procedure: Pre-Anesthesia Assessment: - Prior to the procedure, a History and Physical was performed, and patient medications and allergies were reviewed. The patient's tolerance of previous anesthesia was also reviewed. The risks and benefits of the procedure and the sedation options and risks were discussed with the patient. All questions were answered, and informed consent was obtained. Prior Anticoagulants: The patient has taken no anticoagulant or antiplatelet agents. ASA Grade Assessment: III - A patient with severe systemic disease. After reviewing the risks and benefits, the patient was deemed in satisfactory condition to undergo the procedure. After I obtained informed consent, the scope was passed under direct vision. Throughout the procedure, the patient's blood pressure, pulse, and oxygen saturations were monitored continuously. The Colonoscope was introduced through the anus and advanced to the cecum, identified by appendiceal orifice and ileocecal valve. The colonoscopy was performed without difficulty. The patient tolerated the procedure well. The quality of the bowel preparation was poor. The ileocecal valve, appendiceal orifice, and rectum were photographed. Moderate Sedation: The administration of moderate sedation was initiated at 07:38 AM. Moderate (conscious) sedation was personally administered by the endoscopist. The following parameters were monitored: oxygen saturation, heart rate, blood pressure, respiratory rate, EKG, adequacy of pulmonary ventilation, and response to care. Total physician intraservice time was 22 minutes. Findings: The perianal and digital rectal examinations were normal. A small polyp was found in the ascending colon. The polyp was sessile. The polyp was removed with a jumbo cold forceps. Resection and retrieval were complete. Copious quantities of semi-liquid semi-solid stool was found in the entire colon, precluding visualization. Lavage of the area was performed using a large amount of normal saline, resulting in incomplete clearance with continued poor visualization. The colon (entire examined portion) appeared normal. Biopsies for histology were taken with a cold forceps from the entire colon for evaluation of microscopic colitis. The exam was otherwise without abnormality on direct and retroflexion views. Impression: - Preparation of the colon was poor. - One small polyp in the ascending colon, removed with a jumbo cold forceps. Resected and retrieved. - Stool in the entire examined colon. - The entire examined colon is normal. Biopsied. - The examination was otherwise normal on direct and retroflexion views. Recommendation: - Patient has a contact number available for emergencies. The signs and symptoms of potential delayed complications were discussed with the patient. Return to normal activities tomorrow. Written discharge instructions were provided to the patient. - Resume previous diet. - Continue present medications. - Await pathology results. - Repeat colonoscopy in 3 years for surveillance. (more content not included)... [employer] Radiology Study observation (narrative) [facility] HISTORY PHYSICALon HISTORY PHYSICAL HNO ID: [id number] Author: ZACHERY TOUSSAINT MD Service: General Surgery Author Type: Physician Type: H&P Filed: 09/13/2023 07:21 Note Text: CC: Patient presents with: Physical: wants referral for left hand - cyst with decreased mobility x 7 months HPI Jennifer Mcmullen is a 62 year old female who presents today for above. Diabetes: Home blood sugar readings: fasting around 110 daily Hypoglycemia: No She is compliant with medication(s) and is tolerating med(s) without any side effects. Increased thirst: No Urinary frequency: No Nocturia: No Fatigue: No Unintentional weight loss: No Blurred vision: No Numbness, tingling or pain in extremities: No Ulcers or sores on feet: No Last Ophthalmology exam: over two years ago Patient's last HgA1C : Hemoglobin A1C (%) Date Value 05/31/2022 6.3 09/30/2021 6.3 08/21/2020 6.7 04/03/2019 6.4 Hemoglobin A1C (POCT) (%) Date Value 04/02/2021 6.5 GERD- Symptoms include nausea and sour taste in her mouth Symptoms are precipitated with nothing she can think of Alleviated with taking antacids. Denies epigastric abdominal pain, weight loss, dysphagia, black stools, diarrhea, constipation, and bloating. Alcohol, tobacco, significant amounts of caffeine or NSAIDS: No Previous studies include EGD in 2017 indicating hiatal hernia, otherwise normal. Left hand pain: since February. She has two small hard nodules in the palm of the hand that are very tender. She is unable to make a fist due to pain and stiffness in the 2nd through 4th fingers. Review of Systems Constitutional: Negative for chills, diaphoresis, fatigue and fever. HENT: Negative for sore throat. Respiratory: Negative for cough and wheezing. Genitourinary: Negative for decreased urine volume and dysuria. Neurological: Negative for dizziness, syncope, weakness and light-headedness. PAST MEDICAL HISTORY PAST MEDICAL HISTORY Diagnosis Date Asthma Chronic low back pain 05/27/2014 Work injury 2006 Depression [facility] Diabetes mellitus (HCC) Disc slipped disc in back Fracture of right ankle Head injury Helicobacter pylori infection 09/12/2016 Hernia, hiatal Hyperglycemia 2010 Insomnia JOSSELIN (obstructive sleep apnea) 02/25/2019 Post-traumatic headache 01/16/2014 Postmenopausal Prediabetes 04/08/2019 PTSD (post-traumatic stress disorder) Tobacco use PAST SURGICAL HISTORY PAST SURGICAL HISTORY Procedure Laterality Date APPENDECTOMY 2012 [facility] SECTION HX 1980 x 2 CHOLECYSTECTOMY 1989 COLONOSCOPY 01/10/2018 Random bx neg. internal hemorrhoids. lax anal tone. [facility] COLONOSCOPY FLX DX W/COLLJ SPEC WHEN PFRMD 06/12/2014 Colonoscopy out pt [facility] EGD 04/10/2018 Hpylori negative - [facility] ESOPHAGOGASTRODUODENOS COPY TRANSORAL DIAGNOSTIC 06/12/2014 EGD outpt [facility] HERNIA REPAIR HX 12/01/2011 TOTAL ABDOMINAL HYSTERECT W/WO RMVL TUBE OVARY 1979 fibroid ALLERGIES Latex and Voltaren [Diclofenac Sodium] MEDICATIONS CURRENT MEDICATIONS topiramate (TOPAMAX) 50 mg tablet Take 1 tablet by mouth two times a day. albuterol HFA (PROVENTIL HFA, VENTOLIN HFA) 90 mcg/actuation inhaler Inhale 2 Puffs as instructed every 4 hours as needed for wheezing/shortness of breath. fluticasone-vilanterol (BREO ELLIPTA) 200-25 mcg/dose inhaler inhale 1 puff by mouth and INTO THE LUNGS once daily naproxen (NAPROSYN) 500 mg tablet Take 1 tablet by mouth two times a day as needed for pain (for pain/inflammation). Take with food. FLUoxetine (PROZAC) 40 mg capsule Take 1 capsule by mouth once daily. Noble [facility]bert C[facility]. albuterol (PROVENTIL) 2.5 mg /3 mL (0.083 %) nebulizer solution Use 3 mL via nebulizer every 4 hours as needed for wheezing/shortness of breath. Lancets lancets Test blood sugar(s) 1 times daily. Dx: Type 2 DM - Controlled E11.9 Insulin: No blood sugar diagnostic (BLOOD GLUCOSE TEST) test strip Test blood sugar(s) 1 times daily. Dx: Type 2 DM - Controlled E11.9 Insulin: No polyethylene glycol 3350 (MIRALAX) 17 gram/dose powder Take 17 g by mouth once daily as needed for constipation. traZODone (DESYREL) 100 mg tablet Take 2 tablets by mouth daily at bedtime. Noble Gilbert CNP, [facility]. tiotropium bromide (SPIRIVA RESPIMAT) 2.5 mcg/actuation inhaler Inhale 2 Puffs as instructed once daily. Nebulizer NEBULIZER FOR HOME USE. DX: J45.41. Nebulizer and supplies. Face mask preferred. FAMILY HISTORY FAMILY HISTORY Problem Relation Age of Onset Heart Mother 70 Diabetes Mother Hypertension Mother Asthma Mother Hypertension Father Diabetes Father Colon Cancer Father in his seventies Asthma Sister Asthma Brother Seizures Brother Coronary Artery Disease Brother [place] SOCIAL HISTORY Social History Tobacco Use Smoking status: Every Day Packs/day: 1.50 Years: 50.00 Additional pack years: 0.00 Total pack years: 75.00 Types: C (more content not included)... Normal [facility] NURSING PROGon 09-13-2023 NURSING PROG HNO ID: [id number] Author: CHARLEEN KRAMER RN Service: ? Author Type: Registered Nurse Type: Nursing Progress Note Filed: 09/13/2023 08:31 Note Text: Spoke to patient and her eyes opened immediately, not ready to sit up and eat yet, will continue to let her rest for now. Daughter remains at bedside. Normal [facility] NURSING PROG HNO ID: [id number] Author: CHARLEEN KRAMER RN Service: ? Author Type: Registered Nurse Type: Nursing Progress Note Filed: 09/13/2023 08:12 Note Text: Patient received in phase II via cart in left lateral position, eyes closed but open to verbal stimuli, skin warm and dry , respirations regular and unlabored, abdomen soft and non distended. No grimacing with light palpation of abdomen. Resting comfortably on left side. Daughter, Wilfredo, brought to bedside to speak to Dr Toussaint, remains seated at bedside at this time. Normal [facility] SURGICAL PATHOLOGYon 024 CASE REPORT Normal [facility] Comment on above: Order Comment: Speci men Type: TISSUE SPECIMENOrdering Facility: [facility] Address: [address] [place] [address] Result Comment: Surg ica Pathology Report Case: [id number] Authorizing Provider: Zachery Toussaint MD Collected: 09/13/2023 07:48 AM Ordering Location: Ambulatory Surgery Received: 09/13/2023 01:51 PM Pathologist: Mohsen Bateman MD Specimens: A) - Colon, Biopsy, RANDOM bx of the colon B) - Colon, Ascending Polyp Performed By: #### S ####[facility] LABCLIA [id number] [address] [place] FINAL DIAGNOSIS Normal [facility] Comment on above: Order Comment: Speci herb Type: TISSUE SPECIMENOrdering Facility: [facility] Address: [address] [place] [address] Result Comment: A. R andom colon, biopsy: - Colonic mucosa with no significant diagnostic alteration. - No evidence of colitis. B. Ascending colon polyp, biopsy: - Tubular adenoma. Performed By: #### S ####[facility] [id number] [address] [place] FINAL PERFORMING LAB Normal [facility] Comment on above: Order Comment: Speci herb Type: TISSUE SPECIMENOrdering Facility: [facility] Address: [address] [place] [address] Result Comment: Diag nostic interpretation performed at [facility], [address] [place] [address] CLIA# [id number] Chainman: Reinaldo Zurita M.D. Performed By: #### S ####[facility] LABIA [id number] [place] [address] [place] GROSS DESCRIPTION [facility] Comment on above: Order Comment: Speci men Type: TISSUE SPECIMENOrdering Facility: [facility] Address: [address] [place] [address] Result Comment: A. C olon, Biopsy Received in formalin are multiple pieces of benito, soft tissue aggregating to 1.4 x 0.6 x 0.2 cm. Totally submitted in two cassettes. B. Colon, Ascending Polyp Received in formalin is one piece of benito, soft tissue measuring 0.3 x 0.3 x 0.2 cm. Totally submitted in one cassette. SS September 14, 2023 1:42 AM Gross examination performed at [facility], [address] [place] [address] Performed By: #### S ####[facility] LABIA [id number] [address] [place] CNPNon 09-11-2023 CNPN Telephone (INTMWS) JENNIFER RAMIREZ ([id number]) 1960 F Date Time Provider Department 09/11/23 LEONID RICE INTWS During your visit today, we recorded the following information about you: Ligia Armijo LPN 09/11/2023 1:59 PM Signed ----- Message from Leonid Rice MD sent at 09/11/2023 8:06 AM EDT ----- Abnormal mammogram left. Additional views ordered. Ligia Armijo LPN 09/11/2023 2:03 PM Signed Spoke Wilfredo, daughter and message below given. [place] number [phone] given. Ligia Armijo LPN Allergies As of Date: 09/11/2023 Noted Allergy Reaction LATEX 10/10/2013 9 - Itching VOLTAREN (DICLOFENAC SODIUM) 07/31/2015 14 - Other: See Comments Comments: voltaren gel causes burning sensation to area in which it is applied Date Reviewed: 09/07/2023 Reviewed by: Charleen Kramer RN - Fully Assessed Reason for Visit: Results [95] Prescriptions as of 09/11/2023 - blood sugar diagnostic (BLOOD GLUCOSE TEST) test strip Test blood sugar(s) 1 times daily. Dx: Type 2 DM - Controlled E11.9 Insulin: No - Lancets Test blood sugar(s) 1 times daily. Dx: Type 2 DM - Controlled E11.9 Insulin: No - omeprazole (PRILOSEC) 40 mg capsule Take 1 capsule by mouth once daily. - topiramate (TOPAMAX) 50 mg tablet Take 1 tablet by mouth two times a day. - albuterol HFA (PROVENTIL HFA, VENTOLIN HFA) 90 mcg/actuation inhaler Inhale 2 Puffs as instructed every 4 hours as needed for wheezing/shortness of breath. - fluticasone-vilanterol (BREO ELLIPTA) 200-25 mcg/dose inhaler inhale 1 puff by mouth and INTO THE LUNGS once daily - naproxen (NAPROSYN) 500 mg tablet Take 1 tablet by mouth two times a day as needed for pain (for pain/inflammation). Take with food. - FLUoxetine (PROZAC) 40 mg capsule Take 1 capsule by mouth once daily. [facility]. - albuterol (PROVENTIL) 2.5 mg /3 mL (0.083 %) nebulizer solution Use 3 mL via nebulizer every 4 hours as needed for wheezing/shortness of breath. - polyethylene glycol 3350 (MIRALAX) 17 gram/dose powder Take 17 g by mouth once daily as needed for constipation. - traZODone (DESYREL) 100 mg tablet Take 2 tablets by mouth daily at bedtime. [facility]. - tiotropium bromide (SPIRIVA RESPIMAT) 2.5 mcg/actuation inhaler Inhale 2 Puffs as instructed once daily. - Nebulizer NEBULIZER FOR HOME USE. DX: J45.41. Nebulizer and supplies. Face mask preferred. Problem List As Of Date 09/11/2023 Noted Resolved Irreducible ventral hernia [K43.6] 03/02/2011 08/17/2018 Depression [F32.A] Disc [ZTY6969] 08/17/2018 Hyperglycemia [R73.9] 12/15/2018 NEGATIVE MEDICAL HISTORY [V999.96] 08/17/2018 Tobacco use [Z72.0] Family history of colon cancer [Z80.0] 01/28/2014 Epigastric abdominal pain [R10.13] 01/28/2014 Abnormality of gait [R26.9] 01/28/2014 04/02/2021 Anxiety [F41.9] 04/09/2014 Back ache [M54.9] 04/09/2014 08/17/2018 Knee pain [M25.569] 05/27/2014 08/17/2018 DDD (degenerative disc disease), lumbar [M51.36]05/27/2014 Chronic low back pain [M54.50, G89.29] 05/27/2014 Constipation [K59.00] 06/06/2014 Myofascial pain [M79.18] 10/17/2014 08/17/2018 Asthma [J45.909] 01/15/2015 Incisional pain [L76.82] 02/06/2015 08/17/2018 Bilateral low back pain without sciatica [M54.5*02/16/2015 08/17/2018 Chronic pain [G89.29] 07/31/2015 08/17/2018 Helicobacter pylori infection [A04.8] 09/12/2016 08/17/2018 Post-traumatic headache [G44.309] 01/16/2014 JOSSELIN (obstructive sleep apnea) [G47.33] 02/25/2019 Obesity, Class III, BMI >= 40 [E66.01] 04/03/2019 Prediabetes [R73.03] 04/08/2019 10/28/2020 Acute pain of left shoulder [M25.512] 08/06/2020 04/02/2021 Type 2 diabetes mellitus without complication, *09/30/2020 Encounter Status:Closed by JAGDEEP LIGIA MER on 09/11/23 Normal [facility] NURSING PROGon 09-07-2023 NURSING PROG HNO ID: [id number] Author: CHARLEEN KRAMER, HEIDE Service: ? Author Type: Registered Nurse Type: Nursing Progress Note Filed: 09/07/2023 11:13 Note Text: Advanced call completed, has prescription for golytely per PCP but patient reports she is not able to take this, says she is 'allergic' to 'big jug'. Does not have access to [employer] at this time, will mail directions for Miralax/dulcolax prep to patient today, reviewed with her verbally as well 2 days of clear liquids 2 days prior to procedure. Normal [facility] CNCOon 08-30-2023 CNCO HNO ID: [id number] Author: COORDINATOR, MAMMOGRAPHY, ? Service: ? Author Type: Physician Type: Letter Filed: 08/30/2023 10:09 Note Text: August 30, 2023 PID: [id number] Jennifer Mcmullen [address] [place] [address] Dear Ms. Yajaira Mcmullen, Your recent breast imaging exam on 08/29/2023 showed a possible finding that requires additional imaging studies for a complete evaluation. Most such findings are probably benign (not cancer). If you have a healthcare provider who ordered/prescribed your screening mammogram: Please call [phone] or [phone]: [phone] to schedule an appointment for your additional imaging (if you have not already done so). If you DO NOT have a healthcare provider (ie you did not have an order/prescription for your screening mammogram): Please call to schedule an appointment for your additional imaging (if you have not already done so). You must have an order/prescription from your physician when calling to schedule your appointment. If your order/prescription is not electronic, you must bring the hard copy with you on the day of your exam to avoid delays. Your imaging studies and reports are kept on file at [facility] as part of your permanent medical record, and are available for your continuing care. Thank you for allowing us to help in meeting your health care needs. Sincerely, Dr. Yoon Interpreting Radiologist [facility] (Additional imaging) Normal [facility] CNPNon 08-30-2023 CNPN Telephone (GENSWS) JENNIFER RAMIREZ ([id number]) 1960 F Date Time Provider Department 08/30/23 ZACHERY TOUSSAINT During your visit today, we recorded the following information about you: Ligia Rondon MA 08/30/2023 3:23 PM Signed Pt calling to inform of previous allergic reaction to Golytely. She states that she had to cantu to the hospital with a rash last time she tried to take it. Asking for alternative. Has 09/[address] Toussaint Uses [facility]. Please review and advise. EUNICE Delarosa Kathy 08/30/2023 4:09 PM Signed Patient us allergic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 last for few hours. No radicular symptoms. No recent cough. No recent travel. No history of PE or DVT. History of diabetes and hypertension. Quarter pack per day smoker. Denies any heart disease history no history of stress test or heart cath. EMS gave 324 mg aspirin went 1 nitroglycerin states initially helped however pain coming back. States pain currently a 9 out of 10. Prior Similar Symptoms: Yes CVD Risk Factors: Positive for Hypertension, Diabetes and Smoking PE Risk Factors: Negative for Recent Travel/Surgery, Recent Immobilization or Prior DVT or PE PFSH [facility] Medical History Anxiety Asthma Depression GERD (gastroesophageal reflux disease) Home Medications alprazolam 2 mg tablet (Xanax) 1 mg PO QHS 06/06/14 [History Last Taken 03/23/15] fluoxetine 20 mg capsule 20 mg PO QHS 03/24/15 [History Last Taken 03/23/15] topiramate 25 mg tablet (Topamax) 25 mg PO QHS 03/24/15 [History Last Taken 03/23/15] trazodone 100 mg tablet 200 mg PO QHS 03/24/15 [History Last Taken 03/23/15] albuterol sulfate 90 mcg/actuation aerosol inhaler (ProAir HFA) 2 puff inhalation Q4H PRN PRN Sob /Or Wheezing ##1 03/25/15 [Rx Last Taken Unknown] budesonide 180 mcg/actuation breath activated powder inhaler (Pulmicort Flexhaler) 1 puff inhalation BID ##1 03/25/15 [Rx Last Taken Unknown] Allergy/AdvReac Type Severity Reaction Status Date / Time latex Allergy Rash Verified 01/26/23 11:23 Family History (Updated 09/23/20 @ 10:04 by Celia Oliveros) Mother Myocardial infarction CVA (cerebral vascular accident) Diabetes Brother Asthma Myocardial infarction Father Hypertension Surgical History History of appendectomy History of cholecystectomy History of umbilical hernia repair Social History (Updated 09/23/20 @ 10:03 by Celia Oliveros) household members: none housing: house Smoking Status: Current every day smoker tobacco type: cigarettes alcohol intake: never what type of physical activity do you participate in: none do you feel safe at home: Yes ROS ROS ED Constitutional Constitutional ED: Denies chills, fever(s) or sweats Eyes Eyes: Denies change in vision ENT ENT ED: Denies dysphagia or sore throat Cardiovascular Cardiovascular: Reports chest pain; Denies leg edema, palpitations or racing heartbeat Respiratory/Chest Respiratory/Chest: Denies cough, dyspnea or dyspnea on exertion Gastrointestinal Gastrointestinal: Denies abdominal pain, diarrhea, nausea or vomiting Genitourinary Genitourinary ED: Denies dysuria, hematuria or urinary frequency Musculoskeletal Musculoskeletal: Denies back pain, extremity pain or neck pain Integumentary Denies rash or wounds Neurologic Neurologic: Denies headache(s), paresthesias or weakness EXAM Physical Exam Const Vital Signs: 01/26/23 11:20 01/26/23 11:25 01/26/23 11:53 Temperature 96.8 F L Temperature Source Temporal Pulse Rate 61 Respiratory Rate 21 H Respiratory Effort Normal Non-Labored Blood Pressure 122/73 H Blood Pressure Mean 89 Pulse Ox 97 Oxygen Delivery Method Room Air Room Air 01/26/23 13:19 01/26/23 15:00 01/26/23 16:11 Temperature Temperature Source Pulse Rate 64 55 L 58 L Respiratory Rate 21 H 20 H 19 H Respiratory Effort Blood Pressure 149/84 H 127/62 H 124/89 H Blood Pressure Mean 105 83 100 Pulse Ox 96 97 97 Oxygen Delivery Method Room Air Room Air Positive well nourished and well developed General Appearance ED: well developed and NAD HEENT Reports moist mucous membranes normocephalic and atraumatic Eyes PERRL, EOMs intact bilaterally and conjunctivae normal General Eye ED: Yes normal appearance of both eyes Neck no lymphadenopathy and supple General: Negative for tenderness Chest Wall Chest: Negative for tenderness Resp normal respiratory effort and normal air movement Effort and Inspection: symmetric chest movement; Negative for respiratory distress Cardio regular rate, regular rhythm and no murmurs Peripheral Pulses: pulses 2+ throughout GI normal to inspection, nondistended, normoactive bowel sounds and non-tender Palpation: Negative f (more content not included)... Normal [facility] Hematocrit Auto (Bld) [Volum e fraction]Ordered By: Ronak Marte on 01-26-2023 Hematocrit (Bld) [Volume fraction] 44.9 % 37-47 [facility] L501.4020on 01-26-2023 TROPONIN-I HS 5 pg/mL Normal 3.0-54.0 [facility] Comment on above: Result Comment: Plea se Note: New Test Units and Gender Specific Reference Ranges. For more information see Policy Stat Procedure [place] High Sensitivity Troponin (TNIH) and attachments. Performed By: #### L 501.4020 ####[facility] [id number] [facility] [place], [place], [address] L501.5458on 01-26-2023 TROPONIN-I HS 6 pg/mL Normal 3.0-54.0 [facility] Comment on above: Order Comment: 1 Y Result Comment: Plea se Note: New Test Units and Gender Specific Reference Ranges. For more information see Policy Stat Procedure [place] High Sensitivity Troponin (TNIH) and attachments. Performed By: #### L 501.5425, L100.0100, L500.2500 #### [facility] [address] [facility] [place], [address] Laboratory - Chemistry and C hemistry - challengeOrdered By: Ronak Marte on 01-26-2023 CO2 [Moles/Vol] 26.0 mmol/L 21.0-32.0 [facility] Urea nitrogen/Creatinine [Mass ratio] 10.8 mg/mg 10-20 [facility] - Hematology and Cell countsOrdered By: Ronak Marte on 01-26-2023 Erythrocyte distribution width (RBC) [Entitic vol] 43.3 fL 35.1-43.9 [facility] Erythrocyte distribution width (RBC) [Ratio] 13.1 % 11.6-14.6 [facility] Immature granulocytes/100 WBC (Bld) 0.300 % 0.0-0.9 [facility] Comment on above: IG% - Immature Granu locytes (promyelocytes, myelocytes and metamyelocytes) > 1% indicates that a LEFT SHIFT is Present. MCH (RBC) [Entitic mass] 29.8 pg 27.0-32.0 [facility] Nucleated RBC/100 WBC (Bld) [Ratio] 0 % 0-5 [facility] MCHC Auto (RBC) [Mass/Vol]Or dered By: Rnoak Marte on 01-26-2023 MCHC (RBC) [Mass/Vol] 33.0 g/dL 32-36 [facility] No Panel InformationOrdered By: Ronak Marte on 01-26-2023 Troponin I High Sensitivity 5 pg/mL 3.0-54.0 [facility] Comment on above: Please Note: New Julianne t Units and Gender Specific Reference Ranges. For more information see Policy Stat Procedure [place] High Sensitivity Troponin (TNIH) and attachments. Estimated Creatinine Clearance Calc 38.71 ml/min [facility] Estimated GFR (MDRD) Amer 64 mL/min >60 [facility] Comment on above: GFR Calc Estimated GFR (MDRD) Non-Af Amer 53 mL/min >60 [facility] Comment on above: Non- GFR Calc Platelets bldOrdered By: Philip Marte on 01-26-2023 Platelets (Bld) [#/Vol] 215 10*3/uL 150-450 [facility] Serum or plasma calcium enedelia urement (mass/volume)Ordered By: Ronak Marte on 01-26-2023 Calcium [Mass/Vol] 9.2 mg/dL 8.5-10.1 [facility] Serum or plasma creatinine m easurement (mass/volume)Ordered By: Ronak Marte on 01-26-2023 Creatinine [Mass/Vol] 1.11 mg/dL 0.55-1.02 [facility] Comment on above: The validity of the calculated GFR & GFRAA in patients over 70 years has not been determined. Clinical correlation is essential. Serum or plasma urea nitroge n measurement (mass/volume)Ordered By: Ronak Marte on 01-26-2023 Urea nitrogen [Mass/Vol] 12 mg/dL 7-18 [facility] Thin prep Papanicolaou smear with manual screeningOrdered By: Ronak Marte on 01-26-2023 Thin prep Papanicolaou smear with manual screening 4 5-15 [facility] XR Hand - left PA and Latera l and Obliqueon 11-23-2022 IMPRESSION: No acute osseous findings. Operational Communication Chief: PSCBritton Transcribe Date/Time: Nov 23 2022 7:56A Dictated by : SUNSHINE VARGAS MD This examination was interpreted and the report reviewed and electronically signed by: SUNSHINE VARGAS MD on Nov 23 2022 7:57AM [facility] DIVISION OF RADIOLOGY * * *Final Report* * * DATE OF EXAM: Nov 18 2022 2:08PM WOX [id number] - XR HAND 3V PA/LAT/OBL LT / PROCEDURE REASON: Left hand pain * * * * Physician Interpretation * * * * EXAMINATION: XR HAND 3V PA/LAT/OBL LT HISTORY: Left hand pain with limited flexion x 2-3 weeks after a jamming injury. Left hand pain . TECHNIQUE: XR HAND 3V PA/LAT/OBL LT Laterality: LEFT Number of different views (projections): 3 M: XB_1 COMPARISON: RESULT: Scattered mild interphalangeal degenerative changes in the fingers and thumb and minimal first and second MCP degenerative change. Mild soft tissue swelling of the index finger and ring finger to a lesser extent. Carpal rows appear maintained. No acute fracture or dislocation. There are no bony erosions. DIVISION OF RADIOLOGY Provider, Brenna Hastings - 11/23/2022 * * *Final Report* * * DATE OF EXAM: Nov 18 2022 2:08PM WOX [id number] - XR HAND 3V PA/LAT/OBL LT / PROCEDURE REASON: Left hand pain * * * * Physician Interpretation * * * * EXAMINATION: XR HAND 3V PA/LAT/OBL LT HISTORY: Left hand pain with limited flexion x 2-3 weeks after a jamming injury. Left hand pain . TECHNIQUE: XR HAND 3V PA/LAT/OBL LT Laterality: LEFT Number of different views (projections): 3 M: XB_1 COMPARISON: RESULT: Scattered mild interphalangeal degenerative changes in the fingers and thumb and minimal first and second MCP degenerative change. Mild soft tissue swelling of the index finger and ring finger to a lesser extent. Carpal rows appear maintained. No acute fracture or dislocation. There are no bony erosions. IMPRESSION IMPRESSION: No acute osseous findings. Operational Communication Chief: PSCB Transcribe Date/Time: Nov 23 2022 7:56A Dictated by : SUNSHINE VARGAS MD This examination was interpreted and the report reviewed and electronically signed by: SUNSHINE VARGAS MD on Nov 23 2022 7:57AM EST [facility] XR Hand - left PA and Latera l and ObliqueOrdered By: [facility] Provider on 11-23-2022 [facility] CBC panel Auto (Bld)on 11-18 Erythrocyte distribution width (RBC) [Ratio] 13.0 % 11.5 - 15.0 % [facility] Hematocrit (Bld) [Volume fraction] 44.9 % 36.0 - 46.0 % [facility] Hemoglobin (Bld) [Mass/Vol] 15.0 g/dL 11.5 - 15.5 g/dL [facility] MCH (RBC) [Entitic mass] 30.1 pg 26.0 - 34.0 pg [facility] MCHC (RBC) [Mass/Vol] 33.4 g/dL 30.5 - 36.0 g/dL [facility] MCV (RBC) [Entitic vol] 90.0 fL 80.0 - 100.0 fL [facility] Nucleated RBC (Bld) [#/Vol] <0.01 k/uL [facility] Platelet mean volume (Bld) [Entitic vol] 11.3 fL 9.0 - 12.7 fL [facility] Platelets (Bld) [#/Vol] 214 10*3/uL 150 - 400 k/uL [facility] RBC (Bld) [#/Vol] 4.99 10*6/uL 3.90 - 5.2 0 m/uL [facility] WBC (Bld) [#/Vol] 10.10 10*3/uL 3.70 - 11 .00 k/uL [facility] ESR Westergren method (Bld) [Velocity]on 11-18-2022 ESR (Bld) [Velocity] 17 mm/h 0 - 20 mm/hr Cl [facility] XR Hand - left PA and Latera l and Obliqueon 11-18-2022 Radiology Study observation (narrative) [facility] CALVIN SCREENINGon 06-03-2022 [facility] XR Shoulder - left 3 Viewson 06-03-2022 IMPRESSION: No acute osseous abnormality Operational Communication Chief: AMADO Transcribe Date/Time: Jun 03 2022 3:21P Dictated by : MARCIA PURVIS MD This examination was interpreted and the report reviewed and electronically signed by: MARCIA PURVIS MD on Jun 03 2022 3:22PM [facility] DIVISION OF RADIOLOGY * * *Final Report* * * DATE OF EXAM: May 31 2022 11:46AM WOX 5252 - XR SHLDR >/=3V AP/AMADA AP/OTHR LT / PROCEDURE REASON: multiple diagnoses * * * * Physician Interpretation * * * * EXAMINATION: XR SHLDR >/=3V AP/AMADA AP/OTHR LT CLINICAL HISTORY: Chronic left shoulder pain Technique: XR SHLDR >/=3V AP/AMADA AP/OTHR LT -- LEFT with 3 views on 3 images Comparison: None RESULT: No acute fracture or dislocation. Left acromioclavicular degenerative disease. DIVISION OF RADIOLOGY Provider, [facility] - 06/03/2022 * * *Final Report* * * DATE OF EXAM: May 31 2022 11:46AM WOX 5252 - XR SHLDR >/=3V AP/AMADA AP/OTHR LT / PROCEDURE REASON: multiple diagnoses * * * * Physician Interpretation * * * * EXAMINATION: XR SHLDR >/=3V AP/AMADA AP/OTHR LT CLINICAL HISTORY: Chronic left shoulder pain Technique: XR SHLDR >/=3V AP/AMADA AP/OTHR LT -- LEFT with 3 views on 3 images Comparison: None RESULT: No acute fracture or dislocation. Left acromioclavicular degenerative disease. IMPRESSION IMPRESSION: No acute osseous abnormality Operational Communication Chief: AMADO Transcribe Date/Time: Jun 03 2022 3:21P Dictated by : MARCIA PURVIS MD This examination was interpreted and the report reviewed and electronically signed by: MARCIA PURVIS MD on Jun 03 2022 3:22PM EST [facility] XR Shoulder - left 3 ViewsOr dered By: [facility] Provider on 06-03-2022 [facility] XR SHOULDER GENERAL 3V OR MO RE AP/TRUE AP/OTHER LEFTon 05-31-2022 [facility] XR Shoulder - left 3 Viewson 05-31-2022 Radiology Study observation (narrative) [facility] CT LUNG SCREEN WO IVCONon [facility] Abdomen/Pelvis W IV Cont ONL Yon 02-14-2022 Abdomen/Pelvis W IV Cont ONLY [facility] Imaging Services [address] [place] [address] Abdomen/Pelvis W IV Cont ONLY MR#: [id number] Acct: [id number] Name: JENNIFER RAMIREZ Rep #: [id number] : 1960 F 61 From: Danny Stephens PCP: Dr. Leonid Rice MD Status: REG ER Study: Abdomen/Pelvis W IV Cont ONLY Date of Exam: Exam# [id number] Ordering Dr: Kavon Wells DO STUDY: CT Abdomen And Pelvis W/ Contrast Injection 02/14/2022 5:55 PM REASON FOR EXAM: Female, 61 years old. Umbilical PAIN abdominal pain TECHNIQUE: Transaxial images were obtained without oral contrast, and with IV 100mL Isovue-370 intravenous contrast. Individualized dose optimization techniques were used for this CT. COMPARISON: 7.2.20 FINDINGS: The visualized lung bases are unremarkable. The visualized portions of the heart are within normal limits. Unremarkable liver. There are surgical clips in the gallbladder fossa consistent with a prior cholecystectomy. Unremarkable spleen. Unremarkable pancreas. Unremarkable bilateral adrenal glands. No acute findings of the right kidney. No acute findings of the left kidney. Unremarkable visualized stomach. Unremarkable small intestine. Unremarkable colon. There is non-visualization of the appendix. There are no acute findings of the abdominal aorta. Unremarkable inferior vena cava. Subcentimeter mesenteric lymph nodes. Unremarkable urinary bladder. There is absence of the uterus consistent with a prior hysterectomy. There is an umbilical hernia containing fat. There are diffuse degenerative changes of the visualized lumbar spine. There is bilateral neural foraminal stenosis at L4-5 and L5-S1. CT/Abdomen/Pelvis W IV Cont ONLY IMPRESSION: (NOT LISTED IN ORDER OF SIGNIFICANCE) There is an umbilical hernia containing fat. There is no bowel involvement. There is no incarceration. There is no findings suggesting that this is causing a bowel obstruction. Other findings as above. Electronically Signed: Danny Hernadez MD at 18:05 EST Reading Location ID and State: [facility] / [place] , Service support , CC: Dr. Kavon Wells, DO; Dr. Leonid Rice MD Operational Communication Chief: Signed Normal [facility] Absolute lymphocyte counton 02-14-2022 Lymphocytes Auto (Unsp spec) [#/Vol] 3.64 10*3/uL 0.83-4.51 [facility] Work Phone: Amorphous sediment detection in urine sediment by light microscopyon 02-14-2022 Amorphous sediment LM Ql (Urine sed) 1+ [facility] Work Phone: Basophil percentageon 2021 Basophil percentage 0 SEEN /hpf 0-5 [facility] Work Phone: Basophils/100 WBC (Bld) 0.4 % 0-1 [facility] Work Phone: Bilirubin [Mass/Vol] 0.20 mg/dL 0.20-1.00 [facility] Work Phone: Comment on above: For patients on eltr ombopag therapy, use of Dimension [place] TBIL is not recommended. Chloride [Moles/Vol] 109 mmol/L 98-107 [facility] Work Phone: [phone] Eosinophils/100 WBC (Bld) 3.1 % 0-5 [facility] Work Phone: Glucose [Mass/Vol] 118 mg/dL 74-106 [facility] Work Phone: [phone] Comment on above: Fasting Glucose resu lt from 100 to 125 mg/dL suggests IMPAIRED HOMEOSTASIS per A.D.A. criteria. Neutrophils (Bld) [#/Vol] 5.3 10*3/uL 2.0-7.7 [facility] Work Phone: [phone] Neutrophils/100 WBC (Bld) 52.7 % 47-70 [facility] Work Phone: [phone] Potassium [Moles/Vol] 3.8 mmol/L 3.5-5.1 [facility] Work Phone: [phone] Protein [Mass/Vol] 7.1 g/dL 6.4-8.2 [facility] Work Phone: Sodium [Moles/Vol] 140 mmol/L 136-145 [facility] Work Phone: WBC (Bld) [#/Vol] 10.0 10*3/uL 4.4-11.0 [facility] Work Phone: Bilirubin Test strip Ql (U)o n 02-14-2022 Bilirubin Ql (U) Negative Negative [facility] Work Phone: Blood erythrocytes count (nu mber/volume)on 02-14-2022 RBC (Bld) [#/Vol] 4.95 10*6/uL 4.2-5.4 [facility] Work Phone: Blood hemoglobin measurement (mass/volume)on 02-14-2022 Hemoglobin (Bld) [Mass/Vol] 14.4 g/dL 12.0-15.0 [facility] Work Phone: Blood lymphocytes/100 leukoc yteson 02-14-2022 Lymphocytes/100 WBC (Bld) 36.4 % 19-41 [facility] Work Phone: Blood monocytes/100 leukocyt eson 02-14-2022 Monocytes/100 WBC (Bld) 6.8 % 0-10 [facility] Work Phone: Blood platelet mean volumeon 02-14-2022 Platelet mean volume (Bld) [Entitic vol] 11.2 fL 6.2-12.0 [facility] Work Phone: [phone] CBC W/Diff, Automatedon 0 Absolute Lymph 3.64 X10 3/uL Normal 0.83-4.51 [facility] Comment on above: Performed By: #### L 500.4050, L100.0100, L501.2450 ####[facility] [address] [place], [address] Absolute Neut 5.3 X10 3/uL Normal 2.0-7.7 [facility] Comment on above: Performed By: #### L 500.4050, L100.0100, L501.2450 ####[facility] [address] [place], [address] Basophils/100 WBC (Bld) 0.4 % Normal 0-1 [facility] Comment on above: Performed By: #### L 500.4050, L100.0100, L501.2450 ####[facility] [address] [place], [address] Eosinophils/100 WBC (Bld) 3.1 % Normal 0-5 [facility] Comment on above: Performed By: #### L 500.4050, L100.0100, L501.2450 ####[facility] [address] [place], [address] Erythrocyte distribution width (RBC) [Ratio] 13.2 % Normal 11.6-14.6 [facility] Comment on above: Performed By: #### L 500.4050, L100.0100, L501.2450 ####[facility] [address] [place], [address] Hematocrit (Bld) [Volume fraction] 43.7 % Normal 37-47 [facility] Comment on above: Performed By: #### L 500.4050, L100.0100, L501.2450 ####[facility] [address] [place], [address] Hemoglobin (Bld) [Mass/Vol] 14.4 g/dL Normal 12.0-15.0 [facility] Comment on above: Performed By: #### L 500.4050, L100.0100, L501.2450 ####[facility] [address] [place], [address] IG% 0.600 Normal 0.0-0.9 [facility] Comment on above: Result Comment: IG% - Immature Granulocytes (promyelocytes, myelocytes and metamyelocytes) > 1% indicates that a LEFT SHIFT is Present. Performed By: #### L 500.4050, L100.0100, L501.2450 ####[facility] [address] [place], [address] Lymphocytes/100 WBC (Bld) 36.4 % Normal 19-41 [facility] Comment on above: Performed By: #### L 500.4050, L100.0100, L501.2450 ####[facility] [address] [place], [address] MCH (RBC) [Entitic mass] 29.1 pg Normal 27.0-32.0 [facility] Comment on above: Performed By: #### L 500.4050, L100.0100, L501.2450 ####[facility] [address] [place], [address] MCHC (RBC) [Mass/Vol] 33.0 g/dL Normal 32-36 [facility] Comment on above: Performed By: #### L 500.4050, L100.0100, L501.2450 ####[facility] [address] [place], [id number] MCV (RBC) [Entitic vol] 88.3 fL Normal 81-99 [facility] Comment on above: Performed By: #### L 500.4050, L100.0100, L501.2450 ####[facility] [address] [place], [address] Monocytes/100 WBC (Bld) 6.8 % Normal 0-10 [facility] Comment on above: Performed By: #### L 500.4050, L100.0100, L501.2450 ####[facility] [address] [place], [address] Neutrophils/100 WBC (Bld) 52.7 % Normal 47-70 [facility] Comment on above: Performed By: #### L 500.4050, L100.0100, L501.2450 ####[facility] [address] [place], [address] Nucleated RBC (Bld) [#/Vol] 0 10*3/uL Normal 0-5 [facility] Comment on above: Performed By: #### L 500.4050, L100.0100, L501.2450 ####[facility] [address] [place], [address] Platelet mean volume (Bld) [Entitic vol] 11.2 fL Normal 6.2-12.0 [facility] Comment on above: Performed By: #### L 500.4050, L100.0100, L501.2450 ####[facility] [address] [place], [address] Platelets (Bld) [#/Vol] 221 10*3/uL Normal 150-450 [facility] Comment on above: Performed By: #### L 500.4050, L100.0100, L501.2450 ####[facility] [address] [place], [address] RBC (Bld) [#/Vol] 4.95 10*6/uL Normal 4.2-5.4 [facility] Comment on above: Performed By: #### L 500.4050, L100.0100, L501.2450 ####[facility] [address] [place], [address] RDW SD 42.4 fl Normal 35.1-43.9 [facility] Comment on above: Performed By: #### L 500.4050, L100.0100, L501.2450 ####[facility] [address] [place], [id number] WBC (Bld) [#/Vol] 10.0 10*3/uL Normal 4.4-11.0 [facility] Comment on above: Performed By: #### L 500.4050, L100.0100, L501.2450 ####[facility] [address] [place], [address] Comprehensive Metabolic Prof [facility] 02-14-2022 Albumin [Mass/Vol] 3.1 g/dL Low 3.2-5.0 [facility] Comment on above: Performed By: #### L 500.4050, L100.0100, L501.2450 ####[facility] [address] [place], [address] Albumin/Globulin [Mass ratio] 0.8 {ratio} Low 0.9-2.4 [facility] Comment on above: Performed By: #### L 500.4050, L100.0100, L501.2450 ####[facility] [address] [place], [address] ALK P 132 U/L High 45-117 [facility] Comment on above: Performed By: #### L 500.4050, L100.0100, L501.2450 ####[facility] [address] [place], [address] ALT [Catalytic activity/Vol] 21 U/L Normal 13-56 [facility] Comment on above: Performed By: #### L 500.4050, L100.0100, L501.2450 ####[facility] [address] [place], [address] AST [Catalytic activity/Vol] 15 U/L Normal 15-37 [facility] Comment on above: Performed By: #### L 500.4050, L100.0100, L5.2450 ####[facility] [address] [place], [address] Bilirubin [Mass/Vol] 0.20 mg/dL Normal 0.20-1.00 [facility] Comment on above: Result Comment: For patients on eltrombopag therapy, use of Dimension [place] TBIL is not recommended. Performed By: #### L 500.4050, L100.0100, L5.2450 ####[facility] [address] [place], [address] BUN/CRE 10.4 RATIO Normal 10-20 [facility] Comment on above: Performed By: #### L 500.4050, L100.0100, L5.2450 ####[facility] [address] [place], [address] CA,Total 9.1 mg/dL Normal 8.5-10.1 [facility] Comment on above: Performed By: #### L 500.4050, L100.0100, L501.2450 ####[facility] [address] [place], [address] Chloride [Moles/Vol] 109 mmol/L High 98-107 [facility] Comment on above: Performed By: #### L 500.4050, L100.0100, L501.2450 ####[facility] [address] [place], [address] CO2 [Moles/Vol] 27.0 mmol/L Normal 21.0-32.0 [facility] Comment on above: Performed By: #### L 500.4050, L100.0100, L501.2450 ####[facility] [address] [place], [address] Creatinine [Mass/Vol] 0.96 mg/dL Normal 0.55-1.02 [facility] Comment on above: Result Comment: The validity of the calculated GFR GFRAA in patients over 70 years has not been determined. Clinical correlation is essential. Performed By: #### L 500.4050, L100.0100, L501.2450 ####[facility] [address] [place], [address] ECRCL 45.32 ml/min Normal [facility] Comment on above: Performed By: #### L 500.4050, L100.0100, L501.2450 ####[facility] [address] [place], [address] EST GFR - AA 76 mL/min Normal >60 [facility] Comment on above: Result Comment: Afri can Togolese GFR Calc Performed By: #### L 500.4050, L100.0100, L501.2450 ####[facility] [address] [place], [address] GAP 4 Low 5-15 [facility] Comment on above: Performed By: #### L 500.4050, L100.0100, L501.2450 ####[facility] [address] [place], [address] GFR/1.73 sq M.predicted among non-blacks MDRD (S/P/Bld) [Vol rate/Area] 63 mL/min/{1.73_m2} Normal >60 [facility] Comment on above: Result Comment: Non- GFR Calc Performed By: #### L 500.4050, L100.0100, L501.2450 ####[facility] [address] [place], [address] Globulin (S) [Mass/Vol] 4.0 g/dL Normal 2.2-4.2 [facility] Comment on above: Performed By: #### L 500.4050, L100.0100, L501.2450 ####[facility] [address] [place], [address] Glucose [Mass/Vol] 118 mg/dL High 74-106 [facility] Comment on above: Result Comment: Fast ing Glucose result from 100 to 125 mg/dL suggests IMPAIRED HOMEOSTASIS per A.D.A. criteria. Performed By: #### L 500.4050, L100.0100, L501.2450 ####[facility] [address] [place], [address] Potassium [Moles/Vol] 3.8 mmol/L Normal 3.5-5.1 [facility] Comment on above: Performed By: #### L 500.4050, L100.0100, L501.2450 ####[facility] [address] [place], [address] Sodium [Moles/Vol] 140 mmol/L Normal 136-145 [facility] Comment on above: Performed By: #### L 500.4050, L100.0100, L501.2450 ####[facility] [address] [place], [address] T PROT 7.1 g/dL Normal 6.4-8.2 [facility] Comment on above: Performed By: #### L 500.4050, L100.0100, L501.2450 ####[facility] [address] [place], [address] Urea nitrogen [Mass/Vol] 10 mg/dL Normal 7-18 [facility] Comment on above: Performed By: #### L 500.4050, L100.0100, L501.2450 ####[facility] [address] [place], [address] Determination of erythrocyte mean corpuscular volume (MCV)on 02-14-2022 MCV (RBC) [Entitic vol] 88.3 fL 81-99 [facility] Work Phone: Emergency Department Summary on 02-14-2022 Emergency Department Summary [facility] Medical Records Department [address] [place] [address] Emergency Department Summary 02/14/22 MR#: [id number] Acct: [id number] Name: JENNIFER RAMIREZ Rep #: [id number] : 1960 61 From: Kavon Wells DO PCP: Dr. Leonid Rice MD Status:REG ER Location: ED HPI HPI - GI History of Present Illness Chief Complaint: Abd Pain Narrative Narrative: 61-year-old female presenting with abdominal pain. She states she has had a hysterectomy, appendectomy, cholecystectomy, umbilical hernia repair. She reports pain just around her umbilicus. She states she has a small area that has drained intermittently for years. It currently is not draining. Seen as an outpatient by her primary care physician and is trying to get referred for surgery. She has not been able to get a surgeon yet. Patient does not have a history of bowel obstruction she states. She has not had a fever, nausea, vomiting, constipation, diarrhea. She denies urinary complaints. [facility] Medical History Anxiety Asthma Depression GERD (gastroesophageal reflux disease) Home Medications alprazolam 2 mg tablet (Xanax) 1 mg PO QHS 06/06/14 [History Last Taken 03/23/15] fluoxetine 20 mg capsule 40 mg PO QHS 03/24/15 [History Last Taken 03/23/15] topiramate 25 mg tablet (Topamax) 25 mg PO QHS 03/24/15 [History Last Taken 03/23/15] trazodone 100 mg tablet 200 mg PO QHS 03/24/15 [History Last Taken 03/23/15] albuterol sulfate 90 mcg/actuation aerosol inhaler (ProAir HFA) 2 puff inhalation Q4H PRN PRN Sob /Or Wheezing ##1 03/25/15 [Rx Last Taken Unknown] budesonide 180 mcg/actuation breath activated powder inhaler (Pulmicort Flexhaler) 1 puff inhalation BID ##1 03/25/15 [Rx Last Taken Unknown] omeprazole 40 mg capsule,delayed release 40 mg PO DAILY ##30 08/13/18 [Rx Last Taken Unknown] famotidine 20 mg tablet 20 mg PO BID #20 tabs 09/12/19 [Rx Last Taken Unknown] naproxen 500 mg tablet 500 mg PO BID PRN #14 tabs 07/28/20 [Rx Last Taken Unknown] ibuprofen 600 mg tablet 600 mg PO Q6H PRN PRN pain #20 tabs 09/02/20 [Rx Last Taken Unknown] methylprednisolone 4 mg tablets in a dose pack (Medrol (Foreign)) See Rx Instructions PO PER PKG DIR #21 tabs 09/23/20 [Rx Last Taken Unknown] clindamycin HCl 300 mg capsule 300 mg PO .qid 10 days #40 caps 10/25/20 [Rx Last Taken Unknown] Allergy/AdvReac Type Severity Reaction Status Date / Time latex Allergy Rash Verified 10/25/20 14:19 Family History (Updated 09/23/20 @ 10:04 by Celia Oliveros) Mother Myocardial infarction CVA (cerebral vascular accident) Diabetes Brother Asthma Myocardial infarction Father Hypertension Surgical History History of appendectomy History of cholecystectomy History of umbilical hernia repair Social History (Updated 09/23/20 @ 10:03 by Celia Oliveros) household members: none housing: house Smoking Status: Current every day smoker tobacco type: cigarettes alcohol intake: never what type of physical activity do you participate in: none do you feel safe at home: Yes ROS ROS ED Constitutional Constitutional ED: Denies chills or fever(s) ENT ENT ED: Denies rhinorrhea or sore throat Cardiovascular Cardiovascular: Denies chest pain or palpitations Respiratory/Chest Respiratory/Chest: Denies cough or dyspnea Gastrointestinal Gastrointestinal: Reports abdominal pain; Denies constipation, diarrhea, melena, nausea or vomiting Genitourinary Genitourinary ED: Denies dysuria or hematuria Musculoskeletal Musculoskeletal: Denies arthralgias or back pain Integumentary Denies abscess or Abrasions Neurologic Neurologic: Denies headache(s) or paresthesias Psychiatric Psychiatric: Denies anxiety or depression EXAM Physical Exam Const Vital Signs: 02/14/22 15:26 Temperature 98.2 F Temperature Source Temporal Pulse Rate 66 Respiratory Rate 15 Blood Pressure 152/128 H Blood Pressure Mean 136 Pulse Ox 98 Oxygen Delivery Method Room Air Positive well nourished General Appearance ED: NAD; Negative for pallor HEENT Reports moist mucous membranes normocephalic Eyes PERRL and EOMs intact bilaterally Neck no lymphadenopathy Resp normal respiratory effort Cardio regular rate and regular rhythm GI GI Narrative: Diffusely tender. Small superficial excoriation below the umbilicus. No fluctuance. Extremity full ROM Neuro CN's II-XII intact bilaterally Sensorium / Orientation: alert Skin General Skin Exam: Negative for jaundice or pallor MDM MDM MDM Narrative Medical decision making narrative: Worsened.61-year-old female presenting with abdominal pain. This is a chronic condition which she is Welsh-speaking but her family (more content not included)... Normal [facility] Hematocrit Auto (Bld) [Volum e fraction]on 02-14-2022 Hematocrit (Bld) [Volume fraction] 43.7 % 37-47 [facility] Work Phone: Ketones Test strip Ql (U)on 02-14-2022 Ketones Ql (U) Negative Negative [facility] Work Phone: Laboratory - Chemistry and C hemistry - challengeon 02-14-2022 ALP [Catalytic activity/Vol] 132 U/L 45-117 [facility] Work Phone: ALT [Catalytic activity/Vol] 21 U/L 13-56 [facility] Work Phone: CO2 [Moles/Vol] 27.0 mmol/L 21.0-32.0 [facility] Work Phone: Globulin (S) [Mass/Vol] 4.0 g/dL 2.2-4.2 [facility] Work Phone: Lipase [Catalytic activity/Vol] 38 U/L 73-393 [facility] Work Phone: [phone] Urea nitrogen/Creatinine [Mass ratio] 10.4 mg/mg 10-20 [facility] Work Phone: Laboratory - Hematology and Cell countson 02-14-2022 Erythrocyte distribution width (RBC) [Entitic vol] 42.4 fL 35.1-43.9 [facility] Work Phone: Erythrocyte distribution width (RBC) [Ratio] 13.2 % 11.6-14.6 [facility] Work Phone: [phone] Immature granulocytes/100 WBC (Bld) 0.600 % 0.0-0.9 [facility] Work Phone: Comment on above: IG% - Immature Granu locytes (promyelocytes, myelocytes and metamyelocytes) > 1% indicates that a LEFT SHIFT is Present. MCH (RBC) [Entitic mass] 29.1 pg 27.0-32.0 [facility] Work Phone: Nucleated RBC/100 WBC (Bld) [Ratio] 0 % 0-5 [facility] Work Phone: Lipaseon 02-14-2022 Lipase [Catalytic activity/Vol] 38 U/L Low 73-393 [facility] Comment on above: Performed By: #### L 500.4050, L100.0100, L501.2450 ####[facility] [address] [place], [place], [id number] MCHC Auto (RBC) [Mass/Vol]on 02-14-2022 MCHC (RBC) [Mass/Vol] 33.0 g/dL 32-36 [facility] Work Phone: Mucus LM Ql (Urine sed)on Mucus Ql (Urine sed) 0 SEEN /hpf [facility] Work Phone: Nitrite Test strip Ql (U)on 02-14-2022 Nitrite Ql (U) Negative Negative [facility] Work Phone: No Panel Informationon 02-14 Estimated Creatinine Clearance Calc 45.32 ml/min [facility] Work Phone: Estimated GFR (MDRD) Amer 76 mL/min >60 [facility] Work Phone: Comment on above: GFR Calc Estimated GFR (MDRD) Non-Af Amer 63 mL/min >60 [facility] Work Phone: Comment on above: Non- GFR Calc Platelets bldon 02-14-2022 Platelets (Bld) [#/Vol] 221 10*3/uL 150-450 [facility] Work Phone: Protein Test strip Ql (U)on 02-14-2022 Protein Ql (U) Negative Negative [facility] Work Phone: Serum or plasma albumin enedelia urement (mass/volume)on 02-14-2022 Albumin [Mass/Vol] 3.1 g/dL 3.2-5.0 [facility] Work Phone: Serum or plasma albumin/glob ulin mass ratioon 02-14-2022 Albumin/Globulin [Mass ratio] 0.8 {ratio} 0.9-2.4 [facility] Work Phone: Serum or plasma calcium enedelia urement (mass/volume)on 02-14-2022 Calcium [Mass/Vol] 9.1 mg/dL 8.5-10.1 [facility] Work Phone: Serum or plasma creatinine m easurement (mass/volume)on 02-14-2022 Creatinine [Mass/Vol] 0.96 mg/dL 0.55-1.02 [facility] Work Phone: Comment on above: The validity of the calculated GFR & GFRAA in patients over 70 years has not been determined. Clinical correlation is essential. Serum or plasma urea nitroge n measurement (mass/volume)on 02-14-2022 Urea nitrogen [Mass/Vol] 10 mg/dL 7-18 [facility] Work Phone: Squamous epithelial cells de tection in urine sediment by light microscopyon 02-14-2022 Epithelial cells.squamous LM Ql (Urine sed) 0-5 SEEN /hpf 5-10 [facility] Work Phone: Thin prep Papanicolaou smear with manual screeningon 02-14-2022 Thin prep Papanicolaou smear with manual screening 15 U/L 15-37 [facility] Work Phone: Thin prep Papanicolaou smear with manual screening 4 5-15 [facility] Work Phone: Urinalysis, Completeon 02-14 AMORPHOUS 1+ Normal [facility] Comment on above: Order Comment: CLEAN CATCH Performed By: #### L 400.0001 #### [facility] [address] [place], [address] EPI,SQUAMOUS 0-5 SEEN Normal 5-10 [facility] Comment on above: Order Comment: CLEAN CATCH Performed By: #### L 400.0001 #### [facility] [address] [place], [address] BACTERIA 0 SEEN Normal None Seen [facility] Comment on above: Order Comment: CLEAN CATCH Performed By: #### L 400.0001 #### [facility] [address] [place], [address] Mucus Ql (Urine sed) 0 SEEN Normal [facility] Comment on above: Order Comment: CLEAN CATCH Performed By: #### L 400.0001 #### [facility] [address] [place], [address] RBC 0 SEEN Normal 0-5 [facility] Comment on above: Order Comment: CLEAN CATCH Performed By: #### L 400.0001 #### [facility] [address] [place], [address] WBC 0 SEEN Normal 0-5 [facility] Comment on above: Order Comment: CLEAN CATCH Performed By: #### L 400.0001 #### [facility] [place], [address] Urine blood detectionon - RBC Ql (U) Negative Negative [facility] Work Phone: RBC Ql (U) 0 SEEN /hpf 0-5 [facility] Work Phone: Urine clarityon 02-14-2022 Clarity (U) Clear Clear [facility] Work Phone: Urine color determinationon 02-14-2022 Color (U) Yellow Yellow [facility] Work Phone: Urine glucose detectionon Glucose Ql (U) Normal mg/dl Normal [facility] Work Phone: Urine leukocyte esterase det ection by dipstickon 02-14-2022 Leukocyte esterase Test strip Ql (U) Negative Negative [facility] Work Phone: Urine pHon 02-14-2022 pH (U) 6.5 [pH] 5.0 - 8.0 [facility] Work Phone: Urine sediment bacteria coun t by microscopy (number/high power field)on 02-14-2022 Bacteria LM.HPF (Urine sed) [#/Area] 0 /[HPF] None Seen [facility] Work Phone: Urine specific gravity measu rementon 02-14-2022 Specific gravity (U) [Rel density] 1.020 1.002-1.030 [facility] Work Phone: Urobilinogen Auto test strip Ql (U)on 02-14-2022 Urobilinogen Ql (U) Normal mg/dl Normal [facility] Work Phone: XR ABDOMEN 2V ROUTINE SUPINE W UPRIGHT/DECUB/CTLon 11-29-2021 [facility] XR Abdomen Supine and Uprigh ton 11-29-2021 IMPRESSION: Nonobstructive bowel gas pattern. Operational Communication Chief: AMADO Transcribe Date/Time: Nov 29 2021 2:59P Dictated by : DESMOND PÉREZ MD This examination was interpreted and the report reviewed and electronically signed by: DESMOND PÉREZ MD on Nov 29 2021 3:00PM EST DIVISION OF RADIOLOGY * * *Final Report* * * DATE OF EXAM: Nov 29 2021 2:45PM WOX 5356 - XR ABD 2V SUPINE W UPR/DECUB/CTL / PROCEDURE REASON: multiple diagnoses * * * * Physician Interpretation * * * * CLINICAL INDICATION: Lower abdominal pain and constipation TECHNIQUE: Upright and supine frontal radiographs of the abdomen COMPARISON: Correlation made to CT abdomen dated July 15, 2020 FINDINGS: Right upper and lower quadrant surgical clips. Nonobstructive bowel gas pattern. No gross pneumoperitoneum. Mesh seen projecting over the upper abdomen. Small stool burden. Degenerative changes in the lower lumbar spine. DIVISION OF RADIOLOGY Provider, [facility] Cher [facility] - 11/29/2021 * * *Final Report* * * DATE OF EXAM: Nov 29 2021 2:45PM WOX 5356 - XR ABD 2V SUPINE W UPR/DECUB/CTL / PROCEDURE REASON: multiple diagnoses * * * * Physician Interpretation * * * * CLINICAL INDICATION: Lower abdominal pain and constipation TECHNIQUE: Upright and supine frontal radiographs of the abdomen COMPARISON: Correlation made to CT abdomen dated July 15, 2020 FINDINGS: Right upper and lower quadrant surgical clips. Nonobstructive bowel gas pattern. No gross pneumoperitoneum. Mesh seen projecting over the upper abdomen. Small stool burden. Degenerative changes in the lower lumbar spine. IMPRESSION IMPRESSION: Nonobstructive bowel gas pattern. Operational Communication Chief: [facility] Transcribe Date/Time: Nov 29 2021 2:59P Dictated by : DESMOND PÉREZ MD This examination was interpreted and the report reviewed and electronically signed by: DESMOND PÉREZ MD on Nov 29 2021 3:00PM EST [facility] Radiology Study observation (narrative) [facility] XR Abdomen Supine and Uprigh tOrdered By: [facility] Provider on 11-29-2021 [facility] No Panel Informationon 10-06 [facility] EMERGENCY REPORTon 05-09-202 1 EMERGENCY REPORT [facility] EMERGENCY ROOM REPORT NAME ACCOUNT SEX AGE ADMIT DISCHARGE PT MED. RECORD# NUMBER DATE DATE TYPE YAJAIRA [id number] F 59 07/12/20 07/12/20 3 FRANCNEWTONJENNIFER [id number] ROOM: ER DATE OF : 1960 DICTATING PHYSICIAN: Mikael Pelletier HISTORY OF PRESENT ILLNESS: The patient fell 2 weeks ago. She was on a step, and then when she fell she fell into a dryer, and she has been getting pain on the left side of her chest/shoulder area. She says it is a 10 out of 10. It is better with Tylenol. It is worse when she sleeps and puts pressure on it. It is a constant pressure, and she presents to the emergency department. She denies any shortness of breath. She is here with her daughter. PAST MEDICAL HISTORY: She also has prediabetes, obesity. PAST SURGICAL HISTORY: She has had an appendectomy, cholecystectomy, and hysterectomy. SOCIAL HISTORY: She is a smoker, and was counseled to stop. She denies alcohol use. REVIEW OF SYSTEMS: Ten systems reviewed and negative except as mentioned above. PHYSICAL EXAMINATION: She is afebrile. Blood pressure 148/88, pulse 87, respirations 20, and pulse ox 93% on room air. Head is normocephalic and atraumatic. Eyes: Pupils are equal, round, and reactive to light. Extraocular muscles are intact. Nares are patent. Throat has adequate oral moisture. Uvula is midline. Neck is supple without petechiae or rash. Heart is regular rate and rhythm without murmur. S1 equals S2. No S3 or S4 appreciated. Lungs are clear to auscultation bilaterally. No rales, rhonchi, or retractions. Abdomen is soft, nontender, and nondistended. Skin is warm and dry. DIAGNOSTIC DATA: She had an EKG, which showed a normal sinus rhythm at a rate of 64. Normal axis. No obvious ST elevation or depression. The patient's white count was normal, H&H normal. The patient had an x-ray of the ribs, which were unremarkable per my interpretation. Her CAT scan was unremarkable other than she has atelectasis on the left side. Page 1 of 2 YAJAIRA MCMULLEN, Emergency Room Report JENNIEFR OLVERA : 1960 EMERGENCY DEPARTMENT COURSE AND TREATMENT: The patient did have tenderness with palpation along the chest wall. There is no discoloration. I do not suspect necrotizing fasciitis. She does have an inhaler, and she is told to take breaths. DIAGNOSES: 1. Right-sided chest pain. 2. Status post fall. 3. Pulmonary embolism ruled out. PLAN/DISPOSITION: I will write her for 3 Percocet for severe pain to take at night; otherwise, take Tylenol and Motrin for pain. She will be discharged in stable condition. Dictated By: Mikael Pelletier DO 07/12/20 12:25 JOB #: [id number] Transcribed By: am 07/12/20 18:16 Electronically signed by: JONO Pelletier D.O. 07/19/20 07:16 Page 2 of 2 YAJAIRA MCMULLEN, Emergency Room Report JENNIFER Normal [facility] CBC + DIFFon 07-12-2020 Baso # 0.00 x10EE3/UL Normal 0.00 - 0.10 [facility] Comment on above: Performed By: #### 2 68005 #### [facility],[address] [place] [address] Basophils/100 WBC (Bld) 0.7 % Normal 0.0 - 2.0 [facility] Comment on above: Performed By: #### 2 30841 #### [facility],[address] [place] [address]129 CBC + DIFF Normal [facility] Comment on above: Result Comment: CBC- COMPLETE BLOOD COUNT Performed By: #### 2 04113 #### [facility],[address] [place] [address] 33694 EO # 0.40 x10EE3/UL Normal 0.00 - 0.50 [facility] Comment on above: Performed By: #### 2 89154 #### [facility],[address] [place] [address]68 Eosinophils/100 WBC (Bld) 5.1 % Normal 0.0 - 7.0 [facility] Comment on above: Performed By: #### 2 61848 #### [facility],[address] [place] [address] Erythrocyte distribution width (RBC) [Ratio] 13.6 % Normal 12.0 - 15.6 [facility] Comment on above: Performed By: #### 2 99763 #### [facility],[address] [place] [address] Hematocrit (Bld) [Volume fraction] 42.2 % Normal 34.0 - 46.0 [facility] Comment on above: Performed By: #### 2 36140 #### [facility],[address] [place] [address] Hemoglobin (Bld) [Mass/Vol] 14.5 g/dL Normal 12.0 - 16.0 [facility] Comment on above: Performed By: #### 2 75968 #### [facility],[address] [place] [address] Lymph # 2.20 x10EE3/UL Normal 0.80 - 2.80 [facility] Comment on above: Performed By: #### 2 44321 #### [facility],[address] [place] [address] Lymphocytes/100 WBC (Bld) 29.0 % Normal 20.0 - 45.0 [facility] Comment on above: Performed By: #### 2 81110 #### [facility],[address] [place], [place] [id number] MANUAL DIFF N/A Normal [facility] Comment on above: Performed By: #### 2 64922 #### [facility],[address] [place], [place] [address] MCH (RBC) [Entitic mass] 30 pg Normal 27 - 33 [facility] Comment on above: Performed By: #### 2 88312 #### [place] [address] MCHC 34 X10 3 Normal 32 - 36 [facility] Comment on above: Performed By: #### 2 47834 #### [facility],[address] [place] [address] 40593 MCV (RBC) [Entitic vol] 87 fL Normal 80 - 99 [facility] Comment on above: Performed By: #### 2 21092 #### [facility],[address] [place] [address]58 [place] # 0.60 x10EE3/UL Normal 0.20 - 1.00 [facility] Comment on above: Performed By: #### 2 22641 #### [facility],[address] [place] [address] 36809 MONOS % 7.9 % Normal 0.0 - 10.0 [facility] Comment on above: Performed By: #### 2 62613 #### [facility],[address] [place] [address] 58427 Morphology Torres (Bld) [Interp] N/A Normal [facility] Comment on above: Result Comment: {CD] Performed By: #### 2 56231 #### [facility],[address] [place] [address] 20140 Neut # 4.30 x10EE3/UL Normal 1.50 - 7.10 [facility] Comment on above: Performed By: #### 2 01155 #### [facility],[address] [place] [address] 57643 Neutrophils/100 WBC (Bld) 57.3 % Normal 46.0 - 76.0 [facility] Comment on above: Performed By: #### 2 66656 #### [facility],[address] [place] [address] 97296 PLATELET 219 x10EE3/UL Normal 150 - 450 [facility] Comment on above: Performed By: #### 2 40760 #### [facility],[address] [place] [address] 30579 Platelet mean volume (Bld) [Entitic vol] 9.4 fL Normal 6.6 - 10.5 [facility] Comment on above: Result Comment: AUTO MATED DIFFERENTIAL Performed By: #### 2 10030 #### [facility],[address] [place] [address] 19725 RBC 4.86 x 10EE6/UL Normal 4.10 - 5.30 [facility] Comment on above: Performed By: #### 2 03811 #### [facility],[address] [place] [address] 55453 WBC 7.5 x 10EE3/UL Normal 4.5 - 10.8 [facility] Comment on above: Performed By: #### 2 68855 #### [facility],[address] [place] [address]1409 CMP with eGFRon 07-12-2020 AGE 59 years Normal [facility] Comment on above: Performed By: #### 2 11315 #### [facility],[address] [place] [address] 48414 Albumin [Mass/Vol] 3.2 g/dL Low 3.4 - 5.0 [facility] Comment on above: Performed By: #### 2 81938 #### [facility],[address] [place] [address] 79788 Albumin/Globulin [Mass ratio] 0.8 {ratio} Low 0.9 - 1.6 [facility] Comment on above: Performed By: #### 2 08480 #### [facility],[address] [place] [address] 08729 ALK PHOS 148 U/L High 46 - 116 [facility] Comment on above: Performed By: #### 2 66400 #### [address] [address] ALT [Catalytic activity/Vol] 29 U/L Normal 14 - 59 [facility] Comment on above: Performed By: #### 2 63081 #### [facility],[address] [place] [address] 58946 Anion gap [Moles/Vol] 15 mmol/L Normal 10 - 20 [facility] Comment on above: Performed By: #### 2 33606 #### [facility],[address] [place], [place] [address] AST [Catalytic activity/Vol] 16 U/L Normal 13 - 39 [facility] Comment on above: Performed By: #### 2 74070 #### [facility],[address] [place] [address] B/C RATIO 11 ratio Normal 0 - 30 [facility] Comment on above: Performed By: #### 2 64355 #### [facility],[address] [place] [address] Bilirubin [Mass/Vol] 0.4 mg/dL Normal 0.2 - 1.0 [facility] Comment on above: Performed By: #### 2 24178 #### [facility],[address] [place], [place] [address] Calcium [Mass/Vol] 8.8 mg/dL Normal 8.5 - 10.1 [facility] Comment on above: Performed By: #### 2 23050 #### [facility],[address] [place], [place] [address] Chloride [Moles/Vol] 104 mmol/L Normal 98 - 107 [facility] Comment on above: Performed By: #### 2 18665 #### [facility],[address] [place] [address] 79774 CMP with eGFR Normal [facility] Comment on above: Result Comment: COMP REHENSIVE METABOLIC PANEL Performed By: #### 2 75699 #### [facility],[address] [place] [address] 34378 CO2 [Moles/Vol] 24.6 mmol/L Normal 21.0 - 32.0 [facility] Comment on above: Performed By: #### 2 60545 #### [facility],[address] [place], [place] [address] Creatinine [Mass/Vol] 0.9 mg/dL Normal 0.5 - 1.0 [facility] Comment on above: Performed By: #### 2 80783 #### [facility],[address] [place], [place] [address] GFR/1.73 sq M.predicted among non-blacks MDRD (S/P/Bld) [Vol rate/Area] mL/min/{1.73_m2} Normal 60 - 999 [facility] Comment on above: Performed By: #### 2 32184 #### [facility],[address] [place] [address] Result Comment: ACCO RDING TO THE NATIONAL KIDNEY DISEASE EDUCATION PROGRAM(NKDE), A NORMAL eGFR IS A VALUE GREATER THAN OR EQUAL TO 60 ML/MIN/1.73 SQ METERS. CHRONIC KIDNEY DISEASE: <60mL/MIN/1.73 SQ METERS KIDNEY FAILURE: <15mL/MIN/1.73 SQ METERS THIS TEST SHOULD ONLY BE USED FOR PATIENTS 18 YEARS OF AGE AND OLDER. Globulin (S) [Mass/Vol] 4.1 g/dL High 1.5 - 3.8 [facility] Comment on above: Performed By: #### 2 57529 #### [facility],[address] [place] [address] 86592 Glucose [Mass/Vol] 168 mg/dL High 74 - 106 [facility] Comment on above: Performed By: #### 2 11443 #### [facility],[address] [place] [address] 26072 Potassium [Moles/Vol] 3.5 mmol/L Normal 3.5 - 5.1 [facility] Comment on above: Performed By: #### 2 00965 #### [facility],[address] [place] [address] 88132 Protein [Mass/Vol] 7.3 g/dL Normal 6.4 - 8.2 [facility] Comment on above: Performed By: #### 2 45988 #### [facility],[address] [place] [address] 52687 Sodium [Moles/Vol] 140 mmol/L Normal 136 - 145 [facility] Comment on above: Performed By: #### 2 82363 #### [facility],[address] [place] [address] 04160 Urea nitrogen [Mass/Vol] 10 mg/dL Normal 7 - 18 [facility] Comment on above: Performed By: #### 2 92437 #### [facility],[address] [place] [address] CHEST (PE PROTOCOL)on CT CHEST (PE PROTOCOL) [place] [address] Patient: JENNIFER RAMIREZ Phone#: : 1960 Age: 59 Gender: F Pt. Type: ER Account: [id number] Location: [facility] Ordering: MIKAEL PELLETIER Exam Date: 07/12/2020/11:09 Family Phys: Charge Code: [id number] Physician: Roberts Order #: [id number] DLP Dose#: PROCEDURE: CT CHEST WITH CONTRAST FOR PE COMPARISON: [facility], CT, CHEST PE W CON, 10/06/2018, 12:49. INDICATIONS: Chest pain. TECHNIQUE: After obtaining the patient's consent, CT images were obtained with non-ionic intravenous contrast material. Multi-planar images were created to optimize visualization of vascular anatomy with MPR/MIPS and 3D imaging. All CT scans at this facility use dose modulation, iterative reconstruction, and/or weight based dosing when appropriate to reduce radiation dose to as low as reasonably achievable. IV CONTRAST: Omnipaque 350,100ml TOTAL DOSE: 9.9 CTDIvol(mGy) FINDINGS: VASCULATURE: Normal. No visible pulmonary arterial thrombus or attenuation. AORTA: Normal. No aneurysm or dissection. LUNGS: Normal. No visible pulmonary disease. JANEL: Normal. No mass or adenopathy. MEDIASTINUM: Normal. No mass or adenopathy. CARDIAC: Normal. No enlargement, pericardial thickening, or significant calcification. PLEURA: Minimal bilateral pleural effusions are present. CHEST WALL: Normal. No mass or axillary adenopathy. LIMITED ABDOMEN: Anterior abdominal hernia repair is noted. Limited images of the upper abdomen are unremarkable. BONES: Degenerative changes of the spine are present. OTHER: Negative. CONCLUSION: 1. There is no evidence of pulmonary embolus. [address] [address] Patient: JENNIFER RAMIREZ Phone#: : 1960 Age: 59 Gender: F Pt. Type: ER Account: [id number] Location: 052 Ordering: [facility] Exam Date: 07/12/2020/11:09 Family Phys: Charge Code: [id number] Physician: Roberts Order #: [id number] DLP Dose#: Dictated by: Sheryl Sorensen MD on 07/12/2020 at 19:13 Approved by: Sheryl Sorensen MD on 07/12/2020 at 19:15 Normal [facility] RIBS LT UNILAT W/CHEST EXPIR ATIONon 07-12-2020 RIBS LT UNILAT W/CHEST EXPIRATION [address] [address] Patient: JENNIFER RAMIREZ Phone#: : 1960 Age: 59 Gender: F Pt. Type: ER Account: [id number] Location: 052 Ordering: [facility] Exam Date: 07/12/2020/9:58 Family Phys: Charge Code: [id number] Physician: Roberts Order #: [id number] DLP Dose#: PROCEDURE: X-RAY RIBS LT UNILAT WITH EXPIRATION CHEST COMPARISON: None. INDICATIONS: Trauma. FINDINGS: LUNGS: Degenerative changes are present at the acromioclavicular joint. There is no evidence of acute bone abnormality. There are no rib fractures identified. Degenerative changes of the spine are present. VASCULATURE: Normal. Unremarkable pulmonary vasculature. CARDIAC: Normal. No cardiac silhouette abnormality or cardiomegaly. MEDIASTINUM: Normal. No visible mass or adenopathy. PLEURA: Normal. No effusion or pleural thickening. BONES: Normal. No fracture or visible bony lesion. OTHER: Negative. CONCLUSION: No acute disease. Dictated by: Sheryl Sorensen MD on 07/12/2020 at 18:26 Approved by: Sheryl Sorensen MD on 07/12/2020 at 18:27 Normal [facility] TROPONIN I, HIGH SENSITIVITY on 07-12-2020 HS TROPONIN 6.1 pg/mL Normal 0.0 - 51.4 [facility] Comment on above: Performed By: #### 2 45514 #### [facility],[address] [place] [address] XR KNEE LEFT (3 VIEWS)on XR KNEE LEFT (3 VIEWS) EXAMINATION: XR KNEE LEFT (4 VIEWS) CLINICAL HISTORY: pain falling injuries last March and February COMPARISONS: 02/22/2018 FINDINGS: There is no fracture, periosteal reaction, or osteochondral defect. There are very minimal early degenerative changes. The joint spaces are maintained. There is no definite plain radiographic evidence of joint effusion. There is enthesophytosis of the lower pole of the patella. IMPRESSION: ESSENTIALLY NEGATIVE LEFT KNEE RADIOGRAPHS. Interpreted by: Imtiaz Aceves MD Signed by: Imtiaz Aceves MD 06/26/18 Final result Normal [facility] XR ABDOMEN (KUB) (SINGLE AP VIEW)on 04-25-2018 XR ABDOMEN (KUB) (SINGLE AP VIEW) EXAMINATION: KUB CLINICAL HISTORY: Abdominal pain COMPARISON : January 30, 2018 FINDINGS: Single view of the abdomen submitted. Surgical shubham in the rectal quadrant and right lower quadrant. Single view of the abdomen shows bowel gas in both large and small bowel. Bowel gas seen to the level of the rectum. The bowel gas pattern is nonspecific nonobstructive. There is stool scattered throughout the large bowel. IMPRESSION: NONSPECIFIC BOWEL GAS PATTERN Interpreted by: Juan Aguayo MD Signed by: Juan Aguayo MD 04/25/18 Final result Normal [facility] XR KNEE LEFT (3 VIEWS)on XR KNEE LEFT (3 VIEWS) EXAMINATION: XR KNEE LEFT (3 VIEWS) CLINICAL HISTORY: Jennifer Gates?is a 57 y.o.?female?who presents to the Emergency Department with L posterior knee pain after missing a step and landing on her L side [employer]. ?She denies any other injury. ?She is able to ambulate but it is painful to extend her L leg COMPARISONS: None available. FINDINGS: 4 views left knee were obtained. There is spurring along the inferior, lateral margin of the patella. There is no joint effusion. There is no soft tissue swelling. Contour of the femoral and tibial condyles is normal. CONCLUSION: NO ACUTE FRACTURE. NO DISLOCATION. NO JOINT EFFUSION. Interpreted by: Faiza Abrams MD Signed by: Faiza Abrams MD 02/22/18 Final result Normal [facility] CBC With Platelet and Differ entialon 01-30-2018 Basophils Auto #/vol (Bld) 0.0 10*3/uL Normal 0.0-0.2 [facility] Basophils/100 WBC Auto (Bld) 0.6 % Normal [facility] Eosinophils Auto #/vol (Bld) 0.2 10*3/uL Normal 0.0-0.7 [facility] Eosinophils/100 WBC Auto (Bld) 2.5 % Normal [facility] Erythrocyte distribution width Auto Ratio (RBC) 14.6 % Critically high 11.5-14.5 [facility] Hematocrit Auto Volume Fraction (Bld) 41.3 % Normal 37.0-47.0 [facility] Hemoglobin mass conc (Bld) 14.1 g/dL Normal 12.0-16.0 [facility] Lymphocytes Auto #/vol (Bld) 2.5 10*3/uL Normal 1.0-4.8 [facility] Lymphocytes/100 WBC Auto (Bld) 31.6 % Normal [facility] MCH Auto Entitic mass (RBC) 30.4 pg Normal 27.0-31.3 [facility] MCHC Auto mass conc (RBC) 34.1 % Normal 33.0-37.0 [facility] MCV Auto Entitic volume (RBC) 89.1 fL Normal 82.0-100.0 [facility] Monocytes Auto #/vol (Bld) 0.4 10*3/uL Normal 0.2-0.8 [facility] Monocytes/100 WBC Auto (Bld) 5.3 % Normal [facility] Neutrophils Auto #/vol (Bld) 4.8 10*3/uL Normal 1.4-6.5 [facility] Neutrophils/100 WBC Auto (Bld) 60.0 % Normal [facility] Platelets Auto #/vol (Bld) 211 10*3/uL Normal 130-400 [facility] RBC Auto #/vol (Bld) 4.64 10*6/uL Normal 4.20-5.40 [facility] WBC Auto #/vol (Bld) 7.9 10*3/uL Normal 4.8-10.8 [facility] Pane tina 01-30-2018 Albumin mass conc 3.9 g/dL Normal 3.9-4.9 [facility] ALP enzyme act/vol 137 U/L Critically high 40-130 [facility] ALT enzyme act/vol 15 U/L Normal 0-33 [facility] Comment on above: Result Comment: Spec imen hemolysis has exceeded the interference as definedby Prince. Result may be affected. Suggest recollection ifclinically indicated. Anion gap 3 molar conc 16 mmol/L Critically high 7-13 [facility] AST enzyme act/vol 18 U/L Normal 0-35 [facility] Comment on above: Result Comment: Spec imen hemolysis has exceeded the interference as definedby Prince. Value may be falsely increased. Suggestrecollection if clinically indicated. Bilirubin mass conc mg/dL Normal 0.0-1.2 [facility] Calcium mass conc 9.5 mg/dL Normal 8.6-10.2 [facility] Chloride molar conc 106 mmol/L Normal 98-107 [facility] CO2 molar conc 19 mmol/L Low 22-29 [facility] Creatinine mass conc 0.87 mg/dL Normal 0.50-0.90 [facility] GFR/1.73 sq M predicted among blacks MDRD vol rate/area (S/P/Bld) mL/min/{1.73_m2} Normal >60 [facility] Comment on above: Result Comment: >60 mL/min/1.73m2 EGFR, calc. for ages 18 and older using theMDRD formula (not corrected for weight), is valid for stablerenal function. GFR/1.73 sq M.predicted MDRD vol rate/area mL/min/{1.73_m2} Normal >60 [facility] Comment on above: Result Comment: >60 mL/min/1.73m2 EGFR, calc. for ages 18 and older using theMDRD formula (not corrected for weight), is valid for stablerenal function. Globulin Calculated mass conc (S) 3.5 g/dL Normal 2.3-3.5 [facility] Glucose mass conc 177 mg/dL Critically high 74-109 [facility] Potassium molar conc 4.0 mmol/L Normal 3.5-5.1 [facility] Comment on above: Result Comment: Spec imen hemolysis has exceeded the interference as definedby Prince. Value may be falsely increased. Suggestrecollection if clinically indicated. Protein mass conc 7.4 g/dL Normal 6.4-8.1 [facility] Sodium molar conc 141 mmol/L Normal 132-144 [facility] Urea nitrogen mass conc 15 mg/dL Normal 6-20 [facility] Urinalysis, reflex to micros copicon 01-30-2018 Bilirubin Ql (U) Negative Normal Negative [facility] Color Nom (U) Yellow Normal Straw/Schuyler [facility] Glucose Ql (U) Negative Normal Negative [facility] Hemoglobin Test strip Ql (U) Negative Normal Negative [facility] Ketones Ql (U) Negative Normal Negative [facility] Leukocyte esterase Test strip Ql (U) Negative Normal Negative [facility] Nitrite Test strip Ql (U) Negative Normal Negative [facility] pH Test strip (U) 5.0 [pH] Normal 5.0-9.0 [facility] Protein Test strip Ql (U) Negative Normal Negative [facility] Specific gravity Relative Density (U) 1.025 Normal 1.005-1.03 [facility] Urobilinogen Test strip Qn (U) 0.2 {Kieran'U}/dL Normal < 2.0 [facility] Clarity Nom (U) Clear Normal Clear [facility] XR ACUTE ABD SERIES CHEST 1 VWon 01-30-2018 XR ACUTE ABD SERIES CHEST 1 VW EXAMINATION: XR ACUTE ABD SERIES CHEST 1 VIEW: DATE AND TIME: 01/30/2018 at 9:33 AM. CLINICAL HISTORY: ABDOMINAL PAIN, UNSPECIFIED ABDOMINAL LOCATION. COMPARISONS: None. FINDINGS: Heart and mediastinum appear normal. Lung hernandez clear. Pleural surface is smooth. Bones intact. There is no sign of free air beneath the diaphragm. There are nondilated loops of large and small bowel identified, with normal solid organ outlines. There is no evidence of free air or significant air-fluid levels on the upright view. No signs of bowel obstruction. Clips in the gallbladder fossa as evidence of previous cholecystectomy noted. IMPRESSION: NORMAL GAS DISTRIBUTION IN A NONOBSTRUCTIVE PATTERN, DISCUSSED ABOVE. Interpreted by: Hola Alexandra MD Signed by: Hola Alexandra MD 01/30/18 Final result Normal [facility] Surgical Specimenon 01-11-20 Surgical Specimen Invalid Interpretation Code [facility] Comment on above: Result Comment: [place] [id number] [phone] SURGICAL PATHOLOGY REPORTPatient Name: JENNIFER GATES Accession No: [id number] Age Sex: 1960 Location: [facility] No: [id number] Collected: 01/10/2018[facility] Rec No: [id number] Received: 01/11/2018Attend Phys: FELIPA SHORT Completed: 01/12/2018Perform Phys: FELIPA HINESINFINAL DIAGNOSIS:A. RANDOM COLON BIOPSIES-COLONIC MUCOSAL FRAGMENTS WITH SMALL TUBULAR GLANDS SHOWING MILD CHRONIC,NONSPECIFIC INFLAMMATION IN THE LAMINA PROPRIA WITH FOCAL LYMPHOID CELLAGGREGATE.NOT SUGGESTIVE OF MICROSCOPIC COLITIS.NO EVIDENCE OF GRANULOMAS. SIVES/SIVESCLINICAL INFORMATION:Random colon bx.SPECIMEN:Random Colon BiopsiesGROSS DESCRIPTION:Specimen container is labeled with the patient's name and designatedrandom colon bx. In formalin are four fragments of benito tissue rangingfrom 0.2 to 0.4 cm in greatest dimension. Filtered, in toto, onecassette. OTTO/DEMARCUST: [id number] HOUSE M.D. 01/12/2018 Electronically signed out by Page 1 of 1 CBC With Platelet and Differ entialon 12-19-2017 Basophils #/vol (Bld) 0.1 10*3/uL Normal 0.0-0.2 [facility] Basophils/100 WBC (Bld) 0.6 % Normal [facility] Eosinophils #/vol (Bld) 0.1 10*3/uL Normal 0.0-0.7 [facility] Eosinophils/100 WBC (Bld) 1.4 % Normal [facility] Erythrocyte distribution width Ratio (RBC) 13.8 % Normal 11.5-14.5 [facility] Hematocrit Volume Fraction (Bld) 40.1 % Normal 37.0-47.0 [facility] Hemoglobin mass conc (Bld) 13.4 g/dL Normal 12.0-16.0 [facility] Lymphocytes #/vol (Bld) 2.7 10*3/uL Normal 1.0-4.8 [facility] Lymphocytes/100 WBC (Bld) 29.4 % Normal [facility] MCH Entitic mass (RBC) 29.8 pg Normal 27.0-31.3 [facility] MCHC mass conc (RBC) 33.5 % Normal 33.0-37.0 [facility] MCV Entitic volume (RBC) 89.1 fL Normal 82.0-100.0 [facility] Monocytes #/vol (Bld) 0.6 10*3/uL Normal 0.2-0.8 [facility] Monocytes/100 WBC (Bld) 6.6 % Normal [facility] Neutrophils #/vol (Bld) 5.7 10*3/uL Normal 1.4-6.5 [facility] Neutrophils/100 WBC (Bld) 62.0 % Normal [facility] Platelets #/vol (Bld) 214 10*3/uL Normal 130-400 [facility] RBC #/vol (Bld) 4.50 10*6/uL Normal 4.20-5.40 [facility] WBC #/vol (Bld) 9.3 10*3/uL Normal 4.8-10.[address] [facility] [address] ABDOMEN PELVIS WO CONTRAS Ton 12-19-2017 CT ABDOMEN PELVIS WO CONTRAST Examination: CT ABDOMEN PELVIS WO CONTRAST Indication: ABDOMINAL PAIN Technique: Multiple serial axial images was performed through the abdomen and pelvis without intravenous or oral administration contrast. Images were reconstructed in the axial and coronal and sagittal planes. Comparison: October 10, 2016 Findings: The visualized basal lungs show small areas of dependent atelectasis. There is a small calcified granuloma within the right lower lobe. The liver, spleen, pancreas, adrenals, kidneys are unremarkable. The gallbladder surgically absent. Large and small bowel show no sign of obstruction. The appendix is surgically absent.. No diverticulitis. There is a small umbilical hernia containing mesenteric fat. There is surgical mesh from prior herniorrhaphy in the upper abdomen. Correlate with patient surgical history. Uterus surgically absent. No free air. No free fluid. The visualized abdominal aorta is of normal size and caliber. No significant retroperitoneal adenopathy. Visualized osseous structures are grossly unremarkable. IMPRESSION: Impression: UNREMARKABLE CT SCAN OF THE ABDOMEN AND PELVIS All CT scans at this facility use dose modulation, iterative reconstruction, and/or weight based dosing when appropriate to reduce radiation dose to as low as reasonably achievable. Interpreted by: Juan Aguayo MD Signed by: Juan Aguayo MD 12/19/17 Final result Normal [facility] Comprehensive Metabolic Pane tina 12-19-2017 Albumin mass conc 4.0 g/dL Normal 3.9-4.9 [facility] ALP enzyme act/vol 129 U/L Normal 40-130 [facility] Comment on above: Result Comment: Spec imen hemolysis has exceeded the interference as defined by Prince. Value may be falsely decreased. Suggest recollection if clinically indicated. ALT enzyme act/vol 18 U/L Normal 0-33 [facility] Comment on above: Result Comment: Spec imen hemolysis has exceeded the interference as defined by Prince. Result may be affected. Suggest recollection if clinically indicated. Anion gap molar conc 13 mmol/L Normal 7-13 [facility] AST enzyme act/vol 25 U/L Normal 0-35 [facility] Comment on above: Result Comment: Spec imen hemolysis has exceeded the interference as defined by Prince. Value may be falsely increased. Suggest recollection if clinically indicated. Bilirubin mass conc mg/dL Normal 0.0-1.2 [facility] Calcium mass conc 9.1 mg/dL Normal 8.6-10.2 [facility] Chloride molar conc 108 mmol/L Critically high 98-107 [facility] CO2 molar conc 20 mmol/L Low 22-29 [facility] Creatinine mass conc 0.81 mg/dL Normal 0.50-0.90 [facility] GFR/1.73 sq M predicted among blacks MDRD vol rate/area (S/P/Bld) mL/min/{1.73_m2} Normal >60 [facility] Comment on above: Result Comment: >60 mL/min/1.73m2 EGFR, calc. for ages 18 and older using the MDRD formula (not corrected for weight), is valid for stable renal function. GFR/1.73 sq M.predicted MDRD vol rate/area mL/min/{1.73_m2} Normal >60 [facility] Comment on above: Result Comment: >60 mL/min/1.73m2 EGFR, calc. for ages 18 and older using the MDRD formula (not corrected for weight), is valid for stable renal function. Globulin mass conc (S) 3.6 g/dL Critically high 2.3-3.5 [facility] Glucose mass conc 80 mg/dL Normal 74-109 [facility] Potassium molar conc 4.4 mmol/L Normal 3.5-5.1 [facility] Comment on above: Result Comment: Spec imen hemolysis has exceeded the interference as defined by Prince. Value may be falsely increased. Suggest recollection if clinically indicated. Protein mass conc 7.6 g/dL Normal 6.4-8.1 [facility] Sodium molar conc 141 mmol/L Normal 132-144 [facility] Urea nitrogen mass conc 12 mg/dL Normal 6-20 [facility] Rejection Notificationon Rejected Test CBCWD Normal [facility] Urinalysis, reflex to micros copicon 12-19-2017 Bilirubin Ql (U) Negative Normal Negative [facility] Color Nom (U) Yellow Normal Straw/Schuyler [facility] Glucose Ql (U) Negative Normal Negative [facility] Hemoglobin Ql (U) Negative Normal Negative [facility] Ketones Ql (U) Negative Normal Negative [facility] Leukocyte esterase Test strip Ql (U) Negative Normal Negative [facility] Nitrite Ql (U) Negative Normal Negative [facility] pH (U) 6.5 [pH] Normal 5.0-9.0 [facility] Protein Ql (U) Negative Normal Negative [facility] Specific gravity Relative Density (U) 1.022 Normal 1.005-1.03 [facility] Urobilinogen Qn (U) 0.2 {Kieran'U}/dL Normal < 2.0 [facility] Clarity Nom (U) Clear Normal Clear [facility] CALVIN DIGITAL SCREEN W OR WO C AD BILATERALon 11-20-2017 CALVIN DIGITAL SCREEN W OR WO CAD BILATERAL BILATERAL DIGITAL SCREENING MAMMOGRAM: COMPARISONS: Dating back to 07/08/2011. CLINICAL HISTORY: Screening. FINDINGS: Routine two view mammography was performed and compared to previous study. No additional images were obtained There are scattered fibroglandular densities. No new masses, focal asymmetries, or suspicious microcalcifications are visualized to suggest malignancy. There are stable areas of asymmetry in both breasts. There are stable benign appearing calcifications in the left breast. No evidence of skin thickening. CAD analysis was performed and used in the interpretation. IMPRESSION: BI-RADS 2: BENIGN FINDINGS. Board Certified Radiologists. Accredited by the ACR and FDA. MAMMOGRAPHY IS VERY IMPORTANT TO YOUR HEALTH. THE [employer] [employer] GUIDELINES RECOMMEND THAT WOMEN 40 YEARS OF AGE AND OLDER SHOULD HAVE A MAMMOGRAM EVERY YEAR. A REMINDER LETTER WILL BE SENT AT THE APPROPRIATE TIME. Interpreted by: Negrita Aldridge MD Signed by: Negrita Aldridge MD 11/21/17 Final result Normal [facility] MRI BRAIN W WO CONTRASTon MRI BRAIN W WO CONTRAST MRI BRAIN WITH AND WITHOUT CONTRAST: COMPARISONS: NONE CLINICAL HISTORY: HISTORY OF TRAUMA IN 2012. FREQUENT FALLS. HEADACHES, SLURRED SPEECH, COGNITIVE IMPAIRMENT. DIZZINESS. TECHNIQUE: Multiplanar, multi-sequence MRI was performed on a 1.[employer]. 20 mL of of ProHance contrast was given intravenously. FINDINGS: There are no abnormal sites of restricted diffusion. The ventricles are normal in position and configuration. There is no evidence for intraaxial or extraaxial hemorrhage. There is no evidence for mass effect. There are no abnormal sites of enhancement. There is no shift of the midline structures. There are no definite areas of demyelination within the white matter Flow-voids in the major intracranial blood vessels are identified and are patent by spin-echo criteria. There is no significant atrophy. There is mucosal thickening and small retention cyst within the inferior left maxillary sinus. Mastoid air cells are clear. The corpus callosum has a normal appearance. The cerebellar tonsils are not ectopic . The seventh eighth nerve complexes are symmetrical. No evidence for mass in the cerebellopontine angle. There is hypertrophy of nasal turbinates, consistent with rhinitis. Optic nerves appear symmetrical. The calvarium and dura are unremarkable. IMPRESSION: NO EVIDENCE OF ACUTE CVA, HEMORRHAGE OR MASS EFFECT. MILD MUCOSAL THICKENING AND SMALL RETENTION CYST WITHIN THE INFERIOR LEFT MAXILLARY SINUS. RHINITIS. Interpreted by: Negrita Aldridge MD Signed by: Negrita Aldridge MD 09/14/17 Final result Normal [facility] CBC With Platelet and Differ entialon 09-09-2017 Basophils #/vol (Bld) 0.1 10*3/uL Normal 0.0-0.2 [facility] Basophils/100 WBC (Bld) 0.6 % Normal [facility] Eosinophils #/vol (Bld) 0.2 10*3/uL Normal 0.0-0.7 [facility] Eosinophils/100 WBC (Bld) 2.1 % Normal [facility] Erythrocyte distribution width Ratio (RBC) 14.3 % Normal 11.5-14.5 [facility] Hematocrit Volume Fraction (Bld) 42.0 % Normal 37.0-47.0 [facility] Hemoglobin mass conc (Bld) 14.4 g/dL Normal 12.0-16.0 [facility] Lymphocytes #/vol (Bld) 3.5 10*3/uL Normal 1.0-4.8 [facility] Lymphocytes/100 WBC (Bld) 34.2 % Normal [facility] MCH Entitic mass (RBC) 30.2 pg Normal 27.0-31.3 [facility] MCHC mass conc (RBC) 34.1 % Normal 33.0-37.0 [facility] MCV Entitic volume (RBC) 88.5 fL Normal 82.0-100.0 [facility] Monocytes #/vol (Bld) 0.7 10*3/uL Normal 0.2-0.8 [facility] Monocytes/100 WBC (Bld) 7.3 % Normal [facility] Neutrophils #/vol (Bld) 5.7 10*3/uL Normal 1.4-6.5 [facility] Neutrophils/100 WBC (Bld) 55.8 % Normal [facility] Platelets #/vol (Bld) 226 10*3/uL Normal 130-400 [facility] RBC #/vol (Bld) 4.75 10*6/uL Normal 4.20-5.40 [facility] WBC #/vol (Bld) 10.3 10*3/uL Normal 4.8-10.[address] [facility] [address] HEAD WO CONTRASTon 2017 CT HEAD WO CONTRAST EXAMINATION: CT BRAI N WITHOUT CONTRAST CLINICAL HISTORY: CONCUSSION MILD OR MODERATE ACUTE, NO NEUROLOGICAL DEFICIT Headache COMPARISONS: 08/13/2015 TECHNIQUE: Spiral scans without contrast. Multiplanar 2-D reconstructions. All CT scans at this facility use dose modulation, iterative reconstruction, and/or weight based dosing when appropriate to reduce radiation dose to as low as reasonably achievable. FINDINGS: The brain appears normal. There are no fractures or other skull lesions. The mastoids and middle ears are clear. The orbits and paranasal sinuses show no significant pathology. IMPRESSION: NORMAL CT BRAIN WITHOUT CONTRAST. Interpreted by: Imtiaz Aceves MD Signed by: Imtiaz Aceves MD 09/09/17 Final result Normal [facility] Comprehensive Metabolic Pane tina 09-09-2017 Albumin mass conc 4.0 g/dL Normal 3.9-4.9 [facility] ALP enzyme act/vol 128 U/L Normal 40-130 [facility] Comment on above: Result Comment: Spec imen hemolysis has exceeded the interference as defined by Prince. Value may be falsely decreased. Suggest recollection if clinically indicated. ALT enzyme act/vol 21 U/L Normal 0-33 [facility] Comment on above: Result Comment: Spec imen hemolysis has exceeded the interference as defined by Prince. Result may be affected. Suggest recollection if clinically indicated. Anion gap molar conc 17 mmol/L Critically high 7-13 [facility] AST enzyme act/vol 30 U/L Normal 0-35 [facility] Comment on above: Result Comment: Spec imen hemolysis has exceeded the interference as defined by Prince. Value may be falsely increased. Suggest recollection if clinically indicated. Bilirubin mass conc 0.6 mg/dL Normal 0.0-1.2 [facility] Calcium mass conc 8.8 mg/dL Normal 8.6-10.2 [facility] Chloride molar conc 101 mmol/L Normal 98-107 [facility] CO2 molar conc 22 mmol/L Normal 22-29 [facility] Creatinine mass conc 0.81 mg/dL Normal 0.50-0.90 [facility] GFR/1.73 sq M predicted among blacks MDRD vol rate/area (S/P/Bld) mL/min/{1.73_m2} Normal >60 [facility] Comment on above: Result Comment: >60 mL/min/1.73m2 EGFR, calc. for ages 18 and older using the MDRD formula (not corrected for weight), is valid for stable renal function. GFR/1.73 sq M.predicted MDRD vol rate/area mL/min/{1.73_m2} Normal >60 [facility] Comment on above: Result Comment: >60 mL/min/1.73m2 EGFR, calc. for ages 18 and older using the MDRD formula (not corrected for weight), is valid for stable renal function. Globulin mass conc (S) 3.4 g/dL Normal 2.3-3.5 [facility] Glucose mass conc 172 mg/dL Critically high 74-109 [facility] Potassium molar conc 4.1 mmol/L Normal 3.5-5.1 [facility] Comment on above: Result Comment: Spec imen hemolysis has exceeded the interference as defined by Prince. Value may be falsely increased. Suggest recollection if clinically indicated. Protein mass conc 7.4 g/dL Normal 6.4-8.1 [facility] Sodium molar conc 140 mmol/L Normal 132-144 [facility] Urea nitrogen mass conc 9 mg/dL Normal 6-20 [facility] Magnesiumon 09-09-2017 Magnesium mass conc 2.1 mg/dL Normal 1.7-2.3 [facility] Troponinon 09-09-2017 Troponin I.cardiac mass conc ng/mL Normal 0.000-0.01 [facility] Comment on above: Result Comment: Meth odology by Troponin T. Urinalysis, reflex to micros copicon 07-18-2017 Bilirubin Ql (U) Negative Normal Negative [facility] Clarity Nom (U) Clear Normal Clear [facility] Color Nom (U) Yellow Normal Straw/Schuyler [facility] Glucose Ql (U) Negative Normal Negative [facility] Hemoglobin Ql (U) Negative Normal Negative [facility] Ketones Ql (U) Negative Normal Negative [facility] Leukocyte esterase Test strip Ql (U) Negative Normal Negative [facility] Nitrite Ql (U) Negative Normal Negative [facility] pH (U) 6.5 [pH] Normal 5.0-9.0 [facility] Protein Ql (U) Negative Normal Negative [facility] Specific gravity Relative Density (U) 1.020 Normal 1.005-1.03 [facility] Urobilinogen Qn (U) 0.2 {Kieran'U}/dL Normal < 2.0 [facility] XR LUMBAR SPINE (MIN 4 VIEWS )on 07-18-2017 XR LUMBAR SPINE (MIN 4 VIEWS) EXAMINATION: XR LUMBAR SPINE (MIN 4 VIEWS) CLINICAL HISTORY: Back pain no history of trauma reported COMPARISON: none FINDINGS: Six views of the lumbar spine including oblique views are submitted. There are 5 lumbar type vertebrae. There is a diffuse generalized osteopenia No acute fractures. Disk spaces are narrowed at the L5-S1 disc space. No significant spondylolisthesis. There is multilevel degenerative changes of posterior facets of lower lumbar spine. The SI joints are unremarkable. IMPRESSION NO ACUTE FRACTURE. Interpreted by: Juan Aguayo MD Signed by: Juan Aguayo MD 07/18/17 Final result Normal [facility] VITAMIN Don 10-14-2016 VITAMIN D 25.3 ng/mL Low 30.0-100.0 [facility] Comment on above: Order Comment: adive d pt we only do H pylori for breathe or fecal. Gave her info AND shesaid she will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 Dx); Type 2 diabetes mellitus without complication, without long-term current use of insulin (HCC); Tobacco use Start: 12-31-2021 End: 12-31-2021 Patient encounter procedure Marianna Easley APRN.[employer] Work Phone: [facility] [place] Comment on above: Asthma with COPD (HC C) (Primary Dx); Type 2 diabetes mellitus without complication, without long-term current use of insulin (HCC); JOSSELIN (obstructive sleep apnea); Encounter for immunization; Tobacco use; Obesity, Class III, BMI >= 40; Severe episode of recurrent major depressive disorder, without psychotic features (HCC); Anxiety Start: 11-29-2021 End: 11-29-2021 Subsequent hospital visit by physician [facility] [place] Work Phone: Radiology Comment on above: Lower abdominal pain [R10.30] Start: 11-29-2021 End: 11-29-2021 Patient encounter procedure Marianna Kaushal NOVA Work Phone: Internal Medicine [place] Comment on above: Lower abdominal pain (Primary Dx); Constipation, unspecified constipation type; Type 2 diabetes mellitus without complication, without long-term current use of insulin (HCC) Start: 11-13-2021 End: 11-13-2021 Patient encounter procedure Terell Joseph MD Work Phone: [facility] Comment on above: Syncope, unspecified syncope type (Primary Dx) Start: 11-01-2021 Refill Leonid gonzalez MD Work Phone: [facility] [place] Comment on above: Refill Request Start: 10-14-2021 Telephone encounter Leonid mchugh MD Work Phone: [facility] [place] Comment on above: Results Start: 10-06-2021 End: 10-06-2021 Subsequent hospital visit by physician [facility] Work Phone: Radiology Comment on above: Epigastric abdominal pain [R10.13] Start: 09-30-2021 End: 09-30-2021 Patient encounter procedure Leonid Rice MD Work Phone: [facility] [place] Comment on above: Malaise (Primary Dx) ; Epigastric abdominal pain; Dysgeusia; Type 2 diabetes mellitus without complication, without long-term current use of insulin (HCC); Severe episode of recurrent major depressive disorder, without psychotic features (HCC) Start: 08-31-2021 Telephone encounter Dana Hensley MD Work Phone: Pulmonary Medicine Comment on above: FYI-No Action Needed Start: 08-09-2021 Refill Dana hickman MD Work Phone: Pulmonary Medicine Comment on above: Refill Request Start: 07-12-2020 End: 07-12-2020 Emergency department patient visit DR MIKAEL PELLETIER [facility] Start: 06-26-2018 End: 06-26-2018 Emergency department patient visit CHAYO Poon [facility] Start: 04-25-2018 End: 04-28-2018 Patient encounter procedure CHAYO Poon [facility] Start: 04-10-2018 End: 04-10-2018 Patient encounter procedure FELIPA K [facility] Start: 02-22-2018 End: 02-22-2018 Emergency department patient visit CHAYO L [facility] Start: 01-30-2018 End: 02-02-2018 Patient encounter procedure CHAYO L [facility] Start: 01-09-2018 End: 01-09-2018 Patient encounter procedure FELIPA K [facility] Start: 12-19-2017 End: 12-19-2017 [facility] Start: 11-20-2017 End: 11-23-2017 Patient encounter procedure JOSEMANUEL ROJAS [facility] Start: 09-14-2017 End: 09-17-2017 Patient encounter procedure CATA MCCARTHY [facility] Start: 09-09-2017 End: 09-09-2017 Emergency department patient visit [facility] Start: 08-29-2017 Ambulatory YANELIS A DOTTIE Facility :8 Start: 07-20-2017 End: 07-20-2017 Ambulatory YANELIS A DOTTIE Facility:8 Start: 07-18-2017 End: 07-18-2017 Emergency department patient visit [facility] Start: 07-11-2017 Ambulatory YANELIS A DOTTIE Facility :8 Start: 06-08-2017 Ambulatory KIARRA GARCIA Facility:1 [id number] Start: 06-06-2017 Ambulatory KIARRA GARCIA Facility:1 [id number] Start: 06-06-2017 Ambulatory Facility:9 [id number] Procedures Date Procedure Procedure Detail Performing Clinician Start: 01-18-2024 Esophagogastroduodenoscopy transoral diagnostic Zachery Toussaint MD Work Phone: Start: 12-27-2023 CT LUNG SCREEN WO BRAYDEN Lincoln Bossman Garcia 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.[employer] Work Phone: Start: 10-03-2023 Us breast uni real time with image limited Leonid Rice MD Work Phone: Start: 10-03-2023 Digital breast tomosynthesis unilateral Leonid Rice MD Work Phone: Start: 09-13-2023 Colonoscopy flx dx w/collj spec when pfrmd Mariannanarciso Yap 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.[employer] Work Phone: Start: 09-13-2023 Colonoscopy Zachery Toussaint MD Work Phone: Start: 01-26-2023 CT angiography of chest with contrast Start: 01-26-2023 Plain chest X-ray Start: 11-28-2022 INFLUENZA VACCINE, AGE 6 MO - 64 YR, QUADRIVALENT (AFLURIA, FLULAVAL, FLUZONE) Marianna Older 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.[employer] Work Phone: Start: 11-18-2022 Radex hand minimum 3 views Marianna loza 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.[employer] Work Phone: Start: 06-03-2022 End: 06-03-2022 Mammography Leonid Rice MD Work Phone: Start: 05-31-2022 Radex shoulder complete minimum 2 views Leonid Rice MD Work Phone: Start: 03-31-2022 CT LUNG SCREEN WO BRAYDEN Arcelia Garcia 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.[employer] Work Phone: Start: 02-16-2022 Cul bact xcpt urine blood/stool aerobic isol Fabienne Howard PA-C Work Phone: Start: 02-14-2022 Computed tomography of abdomen and pelvis with intravenous contrast Start: 11-29-2021 Radiologic exam abdomen 2 views Marianna norwood 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.[employer] Work Phone: Start: 10-06-2021 Us abdominal real time w/image limited Leonid Rice MD Work Phone: Start: 04-22-2021 Mammography Dana Hensley MD Work Phone: Start: 06-26-2018 Radiologic examination knee 3 views ESTELA SPRINGER Start: 04-25-2018 Radiologic exam abdomen 1 view ESTELA R EVELYN Start: 04-10-2018 INITIATE OXYGEN THERAPY PROTOCOL ESTELA SPRINGER Start: 04-10-2018 NOTIFY PHYSICIAN (SPECIFY) ESTELA SPRINGER Start: 04-10-2018 PULSE OXIMETRY SPOT CHECK ESTELA SPRINGER Start: 04-10-2018 VITAL SIGNS ESTELA SPRINGER Start: 02-22-2018 APPLY SHERIF WRAP ESTELA SPRINGER Start: 02-22-2018 Radiologic examination knee 3 views ESTELA SPRINGER Start: 01-30-2018 Radex abd compl aqt abd w/s/e/d views 1 view ch ESTELA SPRINGER Start: 01-09-2018 DISCHARGE PATIENT ESTELA SPRINGER Start: 01-09-2018 BEDREST ESTELA SPRINGER Start: 01-09-2018 Continuous pulse oximetry ESTELA SPRINGER Start: 01-09-2018 ENCOURAGE DEEP BREATHING AND COUGHING ESTELA SPRINGER Start: 01-09-2018 NURSING COMMUNICATION ESTELA SPRINGER Start: 01-09-2018 INITIATE OXYGEN THERAPY PROTOCOL ESTELA SPRINGER Start: 01-09-2018 NOTIFY PHYSICIAN (SPECIFY) ESTELA SPRINGER Start: 01-09-2018 PULSE OXIMETRY SPOT CHECK ESTELA SPRINGER Start: 01-09-2018 VITAL SIGNS ESTELA SPRINGER Start: 01-02-2018 Colonoscopy Dana Hensley MD Work Phone: Start: 12-19-2017 Blood count complete auto&auto difrntl wbc ESTELA SPRINGER Start: 12-19-2017 Ct abdomen & pelvis w/o contrast material ESTELA SPRINGER Start: 12-19-2017 Drug tst prsmv instrmnt chem analyzers pr date ESTELA SPRINGER Start: 12-19-2017 Comprehensive metabolic panel ESTELA RA MOS Start: 12-19-2017 Urnls dip stick/tablet rgnt auto w/o microscopy ESTELA SPRINGER Start: 11-20-2017 Screening mammography bi 2-view breast inc cad ESTELA SPRINGER Start: 09-14-2017 Mri brain brain stem w/o w/contrast material ESTELA SPRINGER Start: 09-09-2017 Ct head/brain w/o contrast material ESTELA SPRINGER Start: 09-09-2017 EKG 12-LEAD ESTELA SPRINGER Start: 09-09-2017 Assay of magnesium ESTELA SPRINGER Start: 09-09-2017 Blood count complete auto&auto difrntl wbc ESTELA HOODOS Start: 09-09-2017 Comprehensive metabolic panel ESTELA RA MOS Start: 09-09-2017 Troponin I.cardiac mass conc ESTELA ERWIN OS Start: 07-18-2017 Radex spine lumbosacral minimum 4 views ESTELA SPRINGER Start: 07-18-2017 Urnls dip stick/tablet rgnt auto w/o microscopy ESTELA SPRINGER History of appendectomy History of appendectomy History of cholecystectomy Histo ry of cholecystectomy Plan of Treatment Date Care Activity Detail Author Start: 05-06-2029 Urine microalbumin profile [facility] Start: 09-12-2028 Screening for malign ant neoplasm of colon [facility] Start: 01-07-2025 Annual PCP Team [facility] Care [facility] Director zeeshan Disease Visit Annual PCP Team Chronic Disease Visit [facility] Start: 01-07-2025 Covid-19 Vaccine ( season) Covid-19 Vaccine ( season) [facility] Comment on above: Postponed from 11/11 (Declined at this time) Start: 01-07-2025 RSV Vaccine (1 - Ris k 60-74 years 1-dose series) RSV Vaccine (1 - Risk 60-74 years 1-dose series) [facility] Comment on above: Postponed from 11/11 (Declined at this time) Start: 12-30-2024 End: 12-30-2024 Patient encounter procedure Cat Scan Comment on above: Encounter for screen ing for lung cancer [Z12.2] Start: 12-26-2024 Screening for malign ant neoplasm of lung Lung Cancer Screening [facility] Start: 11-30-2024 Hepatitis B screening Urine Albumin:Creatinine Ratio [facility] Start: 11-30-2024 Hepatitis B surface antibody level LDL Cholesterol [facility] Start: 08-28-2024 Screening for malign ant neoplasm of breast Mammogram Screening [facility] Start: 08-22-2024 Annual PCP Team Day Care Center Director zeeshan Disease Visit Annual PCP Team Chronic Disease Visit [facility] Start: 08-22-2024 Diabetic foot examination Diabetic Foot Exam [facility] Start: 07-08-2024 End: 07-08-2024 Patient encounter procedure 07/08/2024 11:00 AM EDT Office Visit [facility] [address] [place] [address] Marianna Yap, 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.[employer] [address] [place] [address] 6 month follow up [facility] Comment on above: 6 month follow up Start: 05-30-2024 Hemoglobin A1c measurement HbA1C [facility] Start: 03-02-2024 Annual PCP Team Day Care Center Director zeeshan Disease Visit Annual PCP Team Chronic Disease Visit [facility] Start: 02-15-2024 End: 02-15-2024 Patient encounter procedure 02/15/2024 10:00 AM EST Office Visit Orthopaedics [address] [place] [address] Smiley De La Paz DO [address] [place] [address] 4-6 week follow up Orthopaedics Comment on above: 4-6 week follow up Start: 01-30-2024 End: 01-30-2024 Patient encounter procedure 01/30/2024 9:30 AM EST Office Visit General Surgery [address] [place] [address] Jadyn Hough, MEÑO.[employer] [address] [place] [address] 01-17 EGD follow up General Surgery Comment on above: 01-17 EGD follow up Start: 01-18-2024 End: 01-18-2024 Patient encounter procedure Ambulatory Surgery Comment on above: call daughter wilfredo Start: 01-16-2024 End: 01-16-2024 ambulatory 01/16/2024 1:15 PM EST OT/PT/Speech Visit [facility] [address] [place] [address] Ruby Kirkpatrick, PT [address] [place] [address] Chronic pain of left knee [M25.562, G89.29] [facility] Comment on above: Chronic pain of left knee [M25.562, G89.29] Start: 01-08-2024 End: 01-08-2024 Patient encounter procedure 01/08/2024 11:00 AM EDT Office Visit [facility] [place] [address] [place] [address] Marianna Yap, 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.[employer] [address] [place] [address] follow up [facility] Comment on above: follow up Start: 01-04-2024 End: 11-02-2024 MG Breast - left Diagnostic for implant [facility] DIAGNOSTIC LEFT Radiology Routine Abnormal mammogram of left breast Expected: 01/04/2024, Expires: 11/02/2024 [facility] Work Phone: Comment on above: Expected: 01/04/2024 , Expires: 11/02/2024 Start: 12-27-2023 End: 12-27-2023 Patient encounter procedure Radiology Comment on above: Smoker [F17.200] Type 2 diabetes bear itus without complication, without long-term current use of insulin (HCC) [E11.9] Start: 12-04-2023 End: 12-04-2023 Patient encounter procedure 12/04/2023 9:30 AM EDT Office Visit Orthopaedics [address] [place] [address] Miranda Milner PA-C [address] [place] [address] Left hand pain [M79.642] Orthopaedics Comment on above: Left hand pain [M79. 642] Start: 12-01-2023 End: 03-01-2024 Comprehensive metabolic 2000 panel - Serum or Plasma [facility] Comment on above: Expected: 12/01/2023 , Expires: 03/01/2024 Start: 12-01-2023 End: 03-01-2024 Hemoglobin A1c in Blood [facility] Comment on above: Expected: 12/01/2023 , Expires: 03/01/2024 Start: 12-01-2023 End: 03-01-2024 Lipid 1996 panel - Serum or Plasma [facility] Comment on above: Expected: 12/01/2023 , Expires: 03/01/2024 Start: 12-01-2023 End: 03-01-2024 Microalbumin/Creatinine [Mass Ratio] in Urine [facility] Work Phone: Comment on above: Expected: 12/01/2023 , Expires: 03/01/2024 Start: 11-29-2023 Annual PCP Team Day Care Center Director zeeshan Disease Visit Annual PCP Team Chronic Disease Visit [facility] Start: 11-19-2023 ANNUAL PCP TEAM WARP STARTER ZEESHAN DISEASE VISIT ANNUAL PCP TEAM CHRONIC DISEASE VISIT [facility] Start: 11-12-2023 Covid-19 Vaccine ( season) Covid-19 Vaccine ( season) [facility] Start: 11-12-2023 Covid-19 Vaccine ( season) Covid-19 Vaccine ( season) [facility] Start: 11-12-2023 Influenza vaccination Influenza Vacc ine (#1) [facility] Start: 10-18-2023 Shingrix Vaccine (2 of 2) Shingrix Vaccine (2 of 2) [facility] Start: 10-03-2023 End: 10-03-2023 Patient encounter procedure Mammogram Comment on above: LEFT DIAGNOSTIC MAMM OGRAM CALLBACK COMP CB LT Start: 09-13-2023 End: 09-13-2023 Patient encounter procedure 09/13/2023 7:30 AM EDT Appointment Ambulatory Surgery [address] [place] [address] Zachery Toussaint MD [address] [place] [address] Screening for colon cancer [Z12.11] Ambulatory Surgery Comment on above: Screening for colon cancer [Z12.11] Start: 08-29-2023 End: 08-29-2023 Patient encounter procedure 08/29/2023 1:10 PM EDT Appointment [facility] [address] [facility] [address] CALVIN SCREENING W SUE Mammogram Comment on above: CALVIN SCREENING W SUE Start: 08-23-2023 End: 08-23-2023 Patient encounter procedure 08/23/2023 5:40 PM EDT Office Visit [facility] [address] [facility] [place] [id number] Marianna Yap, 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.[employer] [address] [facility] [place] [id number] Yearly w/3 month follow-up. patient overdue for colonoscopy [facility] Comment on above: Yearly w/3 month fol low-up. patient overdue for colonoscopy Start: 08-23-2023 End: 11-22-2023 Comprehensive metabolic 2000 panel - Serum or Plasma COMPREHENSIVE METABOLIC PANEL Lab Routine Type 2 diabetes mellitus without complication, without long-term current use of insulin (HCC) Expected: 08/23/2023, Expires: 11/22/2023 [facility] Work Phone: Comment on above: Expected: 08/23/2023 , Expires: 11/22/2023 Start: 08-23-2023 End: 11-22-2023 Hemoglobin A1c in Blood HEMOGLOBIN A1C Lab Routine Type 2 diabetes mellitus without complication, without long-term current use of insulin (HCC) Expected: 08/23/2023, Expires: 11/22/2023 [facility] Comment on above: Expected: 08/23/2023 , Expires: 11/22/2023 Start: 08-23-2023 End: 11-22-2023 Lipid 1996 panel - Serum or Plasma LIPID PANEL BASIC Lab Routine Type 2 diabetes mellitus without complication, without long-term current use of insulin (HCC) Expected: 08/23/2023, Expires: 11/22/2023 [facility] Comment on above: Expected: 08/23/2023 , Expires: 11/22/2023 Start: 08-23-2023 End: 11-22-2023 Microalbumin/Creatinine [Mass Ratio] in Urine ALBUMIN/CREATININE RATIO, URINE Lab Routine Type 2 diabetes mellitus without complication, without long-term current use of insulin (HCC) Expected: 08/23/2023, Expires: 11/22/2023 [facility] Comment on above: Expected: 08/23/2023 , Expires: 11/22/2023 Start: 08-12-2023 Glaucoma screening Dilated Retinal E xam [facility] Start: 08-12-2023 Hepatitis C antibody , confirmatory test DILATED RETINAL EXAM [facility] Start: 06-04-2023 Mammography [facility] Start: 06-04-2023 Screening for malign ant neoplasm of breast Mammogram Screening [facility] Start: 06-01-2023 ANNUAL PCP TEAM WARP STARTER ZEESHAN DISEASE VISIT ANNUAL PCP TEAM CHRONIC DISEASE VISIT [facility] Start: 03-31-2023 Influenza vaccination LUNG CANCER SC REENING [facility] Start: 03-31-2023 Screening for malign ant neoplasm of lung Lung Cancer Screening [facility] Start: 02-11-2023 ANNUAL PCP TEAM WARP STARTER ZEESHAN DISEASE VISIT ANNUAL PCP TEAM CHRONIC DISEASE VISIT [facility] Start: 01-26-2023 [facility] Start: 01-26-2023 [facility] Start: 01-02-2023 Colonoscopy COLONOSCOPY [facility] Start: 01-02-2023 COLORECTAL CANCER SCREENING COLORECTAL CANCER SCREENING [facility] Start: 01-02-2023 Screening for malign ant neoplasm of colon [facility] Start: 12-31-2022 ANNUAL PCP TEAM WARP STARTER ZEESHAN DISEASE VISIT ANNUAL PCP TEAM CHRONIC DISEASE VISIT [facility] Start: 12-31-2022 COVID-19 VACCINE (3 - Booster for Moderna series) COVID-19 VACCINE (3 - Booster for Moderna series) [facility] Comment on above: Postponed from 09/02 (Declined at this time) Start: 12-31-2022 COVID-19 VACCINE (3 - Moderna series) COVID-19 VACCINE (3 - Moderna series) [facility] Comment on above: Postponed from 09/02 (Declined at this time) Start: 12-31-2022 SHINGRIX VACCINE (1 of 2) SHINGRIX VACCINE (1 of 2) [facility] Comment on above: Postponed from 11/11 (Declined at this time) Start: 12-01-2022 Hemoglobin A1c measurement HbA1C [facility] Start: 12-01-2022 Hemoglobin A1c/Hemoglobin.total in Blood HBA1C [facility] Start: 11-29-2022 ANNUAL PCP TEAM WARP STARTER ZEESHAN DISEASE VISIT ANNUAL PCP TEAM CHRONIC DISEASE VISIT [facility] Start: 11-18-2022 End: 01-18-2023 C reactive protein [Mass/volume] in Serum or Plasma [facility] Work Phone: Comment on above: Expected: 11/18/2022 , Expires: 01/18/2023 Start: 11-18-2022 End: 01-18-2023 Urate [Mass/volume] in Serum or Plasma [facility] Work Phone: Comment on above: Expected: 11/18/2022 , Expires: 01/18/2023 Start: 2022 Covid-19 Vaccine (2022- season) Covid-19 Vaccine (2022- season) [facility] Start: 2022 Hepatitis B Vaccine (1 of 3 - Risk 3-dose series) Hepatitis B Vaccine (1 of 3 - Risk 3-dose series) [facility] Start: 2022 Influenza vaccination C [facility] Start: 2022 RSV Vaccine (1 - 1-d ose 60+ series) RSV Vaccine (1 - 1-dose 60+ series) [facility] Start: 2022 RSV Vaccine (1 - Ris k 60-74 years 1-dose series) RSV Vaccine (1 - Risk 60-74 years 1-dose series) [facility] Start: 09-30-2022 3 comp foot exam completed DIABETIC FOOT EXAM [facility] Start: 09-30-2022 ANNUAL PCP TEAM WARP STARTER ZEESHAN DISEASE VISIT ANNUAL PCP TEAM CHRONIC DISEASE VISIT [facility] Start: 09-30-2022 Diabetic foot examination Diabetic Foot Exam [facility] Start: 09-30-2022 Hepatitis B screening URINE ALBUMIN:CREATININE RATIO [facility] Start: 09-30-2022 Hepatitis B surface antibody level LDL CHOLESTEROL [facility] Start: 09-09-2022 Influenza vaccination INFLUENZA (#1) [facility] Comment on above: Postponed from 11/11 (Declined at this time) Start: 07-27-2022 End: 09-26-2022 Basic metabolic 2000 panel - Serum or Plasma BASIC METABOLIC PNL Lab Routine Hyperkalemia Expected: 07/27/2022, Expires: 09/26/2022 [facility] Work Phone: Comment on above: Expected: 07/27/2022 , Expires: 09/26/2022 Start: 06-18-2022 Hepatitis C antibody , confirmatory test DILATED RETINAL EXAM [facility] Start: 05-12-2022 End: 07-12-2022 Basic metabolic 2000 panel - Serum or Plasma BASIC METABOLIC PNL Lab Routine Type 2 diabetes mellitus without complication, without long-term current use of insulin (HCC) Expected: 05/12/2022, Expires: 07/12/2022 [facility] Work Phone: Comment on above: Expected: 05/12/2022 , Expires: 07/12/2022 Start: 05-12-2022 End: 07-12-2022 Hemoglobin A1c in Blood HGB A1C Lab Routine Type 2 diabetes mellitus without complication, without long-term current use of insulin (HCC) Expected: 05/12/2022, Expires: 07/12/2022 [facility] Work Phone: Comment on above: Expected: 05/12/2022 , Expires: 07/12/2022 Start: 04-22-2022 Mammography MAMMOGRAM [facility] Start: 04-02-2022 ANNUAL PCP TEAM WARP STARTER ZEESHAN DISEASE VISIT ANNUAL PCP TEAM CHRONIC DISEASE VISIT [facility] Start: 04-02-2022 Hemoglobin A1c/Hemoglobin.total in Blood HBA1C [facility] Start: 2021 Influenza vaccination INFLUENZA (#1) [facility] Start: 10-17-2021 Hepatitis B screening URINE ALBUMIN:CREATININE RATIO [facility] Start: 10-17-2021 Hepatitis B surface antibody level LDL CHOLESTEROL [facility] Start: 09-30-2021 3 comp foot exam completed DIABETIC FOOT EXAM [facility] Start: 07-21-2022 Hemoglobin A1c/Hemoglobin.total in Blood HBA1C [facility] Start: 05-20-2021 Influenza vaccination LUNG CANCER SC REENING [facility] Start: 12-08-2020 COVID-19 VACCINE (3 - Booster for Moderna series) COVID-19 VACCINE (3 - Booster for Moderna series) [facility] Start: 05-06-2020 PNEUMOCOCCAL (2 - PCV) PNEUMOCOCCAL (2 - PCV) [facility] Start: 2012 SHINGRIX VACCINE (1 of 2) SHINGRIX VACCINE (1 of 2) [facility] Start: 11-24-2011 FECAL OCCULT BLOOD FECAL OCCULT BLOO D [facility] Start: 11-24-2011 Screening for malign ant neoplasm of colon Fecal Occult Blood [facility] Start: 11-12-2007 COLOGUARD (FIT-DNA) COLOGUARD (FIT-D NA) [facility] Start: 11-12-[address] COLONOGRAPHY [facility] Start: 11-12-2007 Screening for malign ant neoplasm of colon [facility] Start: 11-12-2007 SIGMOIDOSCOPY SIGMOIDOSCOPY [facility] Start: 1981 HEPATITIS B (1 of 3 - Risk 3-dose series) HEPATITIS B (1 of 3 - Risk 3-dose series) [facility] Start: 1962 HEPATITIS B (1 of 3 - 3-dose series) HEPATITIS B (1 of 3 - 3-dose series) [facility] Bacteria identified in Wound by Culture WOUND CULTURE AND GRAM STAIN Microbiology Routine Abscess of skin of abdomen 02/16/2022 9:02 AM EST [facility] Work Phone: End: 10-16-2024 CT Chest for screening WO contrast CT LUNG SCREEN WO IVCON Radiology Routine Smoker Encounter for screening for malignant neoplasm of lung 1 Occurrences starting 12/05/2023 until 10/16/2024 [facility] Work Phone: Comment on above: 1 Occurrences starti ng 12/05/2023 until 10/16/2024 End: 01-25-2025 CT Chest for screening WO contrast CT LUNG SCREEN WO IVCON Radiology Routine Encounter for screening for lung cancer Smoker 1 Occurrences starting 12/27/2023 until 01/25/2025 [facility] Work Phone: Comment on above: 1 Occurrences starti ng 12/27/2023 until 01/25/2025 End: 03-17-2023 CT LUNG SCREEN WO IVCON CT LUNG SCREEN WO IVCON Radiology Routine Smoker Encounter for screening for lung cancer 1 Occurrences starting 02/15/2022 until 03/17/2023 [facility] Work Phone: Comment on above: 1 Occurrences starti ng 02/15/2022 until 03/17/2023 End: 07-02-2024 DBT Breast - bilateral screening CALVIN SCREENING W SUE Radiology Routine Encounter for screening mammogram for malignant neoplasm of breast 1 Occurrences starting 06/03/2023 until 07/02/2024 [facility] [facility] Work Phone: Comment on above: 1 Occurrences starti ng 06/03/2023 until 07/02/2024 DBT Breast - bilater al screening CALVIN SCREENING W SUE Radiology Routine Encounter for screening mammogram for malignant neoplasm of breast 08/29/2023 1:12 PM EDT [facility] Work Phone: End: 01-07-2025 EGD DIAGNOSTIC EGD DIAGNOSTIC Endoscopy Routine Epigastric abdominal pain Nausea 1 Occurrences starting 01/08/2024 until 01/07/2025 [facility] Work Phone: Comment on above: 1 Occurrences starti ng 01/08/2024 until 01/07/2025 End: 06-30-2023 CALVIN SCREENING CALVIN SCREENING Radiology Routine Encounter for screening mammogram for malignant neoplasm of breast 1 Occurrences starting 05/31/2022 until 06/30/2023 [facility] Work Phone: Comment on above: 1 Occurrences starti ng 05/31/2022 until 06/30/2023 End: 10-10-2024 MG Breast - left Diagnostic for implant CALVIN DIAGNOSTIC LEFT Radiology Routine Abnormal mammogram of left breast 1 Occurrences starting 09/11/2023 until 10/10/2024 [facility] Work Phone: Comment on above: 1 Occurrences starti ng 09/11/2023 until 10/10/2024 Patient Education [facility] Work Phone: Patient referral [facility] Work Phone: End: 08-22-2024 Screening colonoscopy COLONOSCOPY SCREENING Endoscopy Routine Screening for colon cancer 1 Occurrences starting 08/23/2023 until 08/22/2024 [facility] Comment on above: 1 Occurrences starti ng 08/23/2023 until 08/22/2024 SURGICAL PATHOLOGY [facility] Work Phone: Comment on above: Release Upon Orderin g for 1 Occurrences starting 09/13/2023, 1 completed SURGICAL PATHOLOGY [facility] Work Phone: Comment on above: Release Upon Orderin g for 1 Occurrences starting 01/18/2024, 1 completed End: 10-10-2024 US Breast - left limited US BREAST LTD LEFT Radiology Routine Abnormal mammogram of left breast 1 Occurrences starting 09/11/2023 until 10/10/2024 [facility] Comment on above: 1 Occurrences starti ng 09/11/2023 until 10/10/2024 End: 12-18-2023 XR HAND GENERAL 3V PA/LAT/OBL LEFT XR HAND GENERAL 3V PA/LAT/OBL LEFT Radiology Routine Left hand pain 1 Occurrences starting 11/18/2022 until 12/18/2023 [facility] Work Phone: Comment on above: 1 Occurrences starti ng 11/18/2022 until 12/18/2023 XR HAND GENERAL 3V PA/LAT/OBL LEFT XR HAND GENERAL 3V PA/LAT/OBL LEFT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 TOTAL ABDOMINAL HYSTERECT W/WO RMVL TUBE OVARY 1979 fibroid ALLERGIES Latex and Voltaren [Diclofenac Sodium] MEDICATIONS topiramate (TOPAMAX) 50 mg tablet Take 1 tablet by mouth two times a day. naproxen (NAPROSYN) 500 mg tablet Take 1 tablet by mouth two times a day as needed for pain (for pain/inflammation). Take with food. blood sugar diagnostic (BLOOD GLUCOSE TEST) test strip Test blood sugar(s) 1 times daily. Dx: Type 2 DM - Controlled E11.9 Insulin: No Lancets Test blood sugar(s) 1 times daily. Dx: Type 2 DM - Controlled E11.9 Insulin: No albuterol HFA (PROVENTIL HFA, VENTOLIN HFA) 90 mcg/actuation inhaler Inhale 2 Puffs as instructed every 4 hours as needed for wheezing/shortness of breath. fluticasone-vilanterol (BREO ELLIPTA) 200-25 mcg/dose inhaler inhale 1 puff by mouth and INTO THE LUNGS once daily FLUoxetine (PROZAC) 40 mg capsule Take 1 capsule by mouth once daily. [facility]. albuterol (PROVENTIL) 2.5 mg /3 mL (0.083 %) nebulizer solution Use 3 mL via nebulizer every 4 hours as needed for wheezing/shortness of breath. traZODone (DESYREL) 100 mg tablet Take 2 tablets by mouth daily at bedtime. Noble [facility] C[facility]. tiotropium bromide (SPIRIVA RESPIMAT) 2.5 mcg/actuation inhaler Inhale 2 Puffs as instructed once daily. Nebulizer NEBULIZER FOR HOME USE. DX: J45.41. Nebulizer and supplies. Face mask preferred. FAMILY HISTORY Problem Relation Age of Onset Heart Mother 70 Diabetes Mother Hypertension Mother Asthma Mother Hypertension Father Diabetes Father Colon Cancer Father in his seventies Asthma Sister Asthma Brother Seizures Brother Coronary Artery Disease Brother [place] Social History Tobacco Use Smoking status: Every Day Current packs/day: 0.50 Average packs/day: 0.5 packs/day for 43.8 years (21.9 ttl pk-yrs) Types: Cigarettes Start date: 03/1980 Smokeless tobacco: Never Vaping Use Vaping status: Never Used Substance Use Topics Alcohol use: No Drug use: No BP 124/82 Pulse 76 Resp 14 Wt 96.6 kg (212 lb 15.4 oz) SpO2 96% BMI 38.95 kg/m? Physical Exam Vitals reviewed. Constitutional: Appearance: Normal appearance. Cardiovascular: Rate and Rhythm: Normal rate and regular rhythm. Pulmonary: Effort: Pulmonary effort is normal. Breath sounds: Normal breath sounds. Abdominal: General: Bowel sounds are normal. There is no distension. Palpations: Abdomen is soft. Tenderness: There is abdominal tenderness (epigastric, mild). There is no guarding or rebound. Comments: Difficult exam due to body habitus Skin: General: Skin is warm and dry. Neurological: Mental Status: She is alert. Health maintenance reviewed with patient: Dilated Retinal Exam due on 08/12/2023 Shingrix Vaccine(2 of 2) due on 10/18/2023 RSV (more content not included)... [facility] 01-08-2024 History of Present illness Narrative CC: Patient presents with: Follow Up: JONAS Jennifer Mcmullen is a 63 year old female who presents today for above. She is here today for follow-up. She was last seen about one month ago, reported chronic left knee pain. She saw orthopedics 12/26 and will be starting PT. Taking naproxen as needed with minor relief. She reports chronic nausea, reflux, epigastric abdominal discomfort that is getting worse. States it is because of her hernia but no record of this. She was on Prilosec but felt it made her symptoms worse so she stopped taking. Review of Systems Constitutional: Negative for appetite change, chills, diaphoresis, fatigue, fever and unexpected weight change. HENT: Negative for trouble swallowing. Respiratory: Negative for cough, shortness of breath and wheezing. Cardiovascular: Negative for chest pain, palpitations and leg swelling. Gastrointestinal: Negative for blood in stool, constipation, diarrhea and vomiting. PAST MEDICAL HISTORY Diagnosis Date Arthritis Asthma Chronic low back pain 05/27/2014 Work injury 2006 Depression [facility] Diabetes mellitus (HCC) Disc slipped disc in back Fracture of right ankle Head injury Helicobacter pylori infection 09/12/2016 Hernia, hiatal Hyperglycemia 2010 Insomnia JOSSELIN (obstructive sleep apnea) 02/25/2019 Post-traumatic headache 01/16/2014 Postmenopausal Prediabetes 04/08/2019 PTSD (post-traumatic stress disorder) Tobacco use PAST SURGICAL HISTORY Procedure Laterality Date APPENDECTOMY 2012 [place] SECTION HX 1980 x 2 CHOLECYSTECTOMY 1989 COLONOSCOPY 01/10/2018 Random bx neg. internal hemorrhoids. lax anal tone. [facility] in [facility] COLONOSCOPY FLX DX W/COLLJ SPEC WHEN PFRMD 06/12/2014 Colonoscopy out pt [facility] EGD 04/10/2018 Hpylori negative - [facility] in [facility] ESOPHAGOGASTRODUODENOSCOPY TRANSORAL DIAGNOSTIC 06/12/2014 EGD outpt [facility] HERNIA REPAIR HX 12/01/2011 TOTAL ABDOMINAL HYSTERECT W/WO RMVL TUBE OVARY 1979 fibroid ALLERGIES Latex and Voltaren [Diclofenac Sodium] MEDICATIONS topiramate (TOPAMAX) 50 mg tablet Take 1 tablet by mouth two times a day. naproxen (NAPROSYN) 500 mg tablet Take 1 tablet by mouth two times a day as needed for pain (for pain/inflammation). Take with food. blood sugar diagnostic (BLOOD GLUCOSE TEST) test strip Test blood sugar(s) 1 times daily. Dx: Type 2 DM - Controlled E11.9 Insulin: No Lancets Test blood sugar(s) 1 times daily. Dx: Type 2 DM - Controlled E11.9 Insulin: No albuterol HFA (PROVENTIL HFA, VENTOLIN HFA) 90 mcg/actuation inhaler Inhale 2 Puffs as instructed every 4 hours as needed for wheezing/shortness of breath. fluticasone-vilanterol (BREO ELLIPTA) 200-25 mcg/dose inhaler inhale 1 puff by mouth and INTO THE LUNGS once daily FLUoxetine (PROZAC) 40 mg capsule Take 1 capsule by mouth once daily. [facility]. albuterol (PROVENTIL) 2.5 mg /3 mL (0.083 %) nebulizer solution Use 3 mL via nebulizer every 4 hours as needed for wheezing/shortness of breath. traZODone (DESYREL) 100 mg tablet Take 2 tablets by mouth daily at bedtime. Noble Gilbert C[facility], [facility]. tiotropium bromide (SPIRIVA RESPIMAT) 2.5 mcg/actuation inhaler Inhale 2 Puffs as instructed once daily. Nebulizer NEBULIZER FOR HOME USE. DX: J45.41. Nebulizer and supplies. Face mask preferred. FAMILY HISTORY Problem Relation Age of Onset Heart Mother 70 Diabetes Mother Hypertension Mother Asthma Mother Hypertension Father Diabetes Father Colon Cancer Father in his seventies Asthma Sister Asthma Brother Seizures Brother Coronary Artery Disease Brother [place] Social History Tobacco Use Smoking status: Every Day Current packs/day: 0.50 Average packs/day: 0.5 packs/day for 43.8 years (21.9 ttl pk-yrs) Types: Cigarettes Start date: 03/1980 Smokeless tobacco: Never Vaping Use Vaping status: Never Used Substance Use Topics Alcohol use: No Drug use: No BP 124/82 Pulse 76 Resp 14 Wt 96.6 kg (212 lb 15.4 oz) SpO2 96% BMI 38.95 kg/m Physical Exam Vitals reviewed. Constitutional: Appearance: Normal appearance. Cardiovascular: Rate and Rhythm: Normal rate and regular rhythm. Pulmonary: Effort: Pulmonary effort is normal. Breath sounds: Normal breath sounds. Abdominal: General: Bowel sounds are normal. There is no distension. Palpations: Abdomen is soft. Tenderness: There is abdominal tenderness (epigastric, mild). There is no guarding or rebound. Comments: Difficult exam due to body habitus Skin: General: Skin is warm and dry. Neurological: Mental Status: She is alert. Health maintenance reviewed with patient: Dilated Retinal Exam due on 08/12/2023 Shingrix Vaccine(2 of 2) due on 10/18/2023 RSV Vaccine(1 - Risk 60-74 years 1-dose series) due on 01/07/2025 Covid-19 Vaccine(3 - 2023- season) due on 01/07/2025 HbA1C due on 05/30/2024 Diabetic Foot Exam due on 08/22/2024 Mammogram Screening due on 08/28/2024 Urine Albumin:Creatinine Ratio due on 11/30/2024 LDL Cholesterol due on 11/30/2024 Lung Cancer Screening due on 12/26/2024 Annual PCP Team Chronic Disease Visit due on 01/07/2025 Colorectal Cancer Screening due on 09/12/2028 DTaP,Tdap,Td Vaccine(3 - Td or Tdap) due on 05/06/2029 Spirometry Completed Influenza Vaccine Completed Hepatitis C Screening Completed HIV Screening Completed Pneumococcal Vaccine Completed Cervical Cancer Screening Discontinued DATA REVIEWED: Most recent labs ASSESSMENT/PLAN: 1. Epigastric abdominal pain - ICD9: 789.06, ICD10: R10.13 (primary diagnosis) Differential Diagnosis includes GERD, PUD, and hernia - Discussed lifestyle modifications including losing weight, limiting caffeine, no meals three hours before sleep, and head of bed elevation - recommend switching to Protonix, patient declined. Does not wish to start any medications - CONSULT TO GENERAL SURGERY for further evaluation and recommendations, may need EGD 2. Nausea - ICD9: 787.02, ICD10: R11.0 As above - CONSULT TO GENERAL SURGERY 3. Encounter for immunization - ICD9: V03.89, ICD10: Z23 - ZOSTER VACCINE, RECOMBINANT (SHINGRIX) 4. Chronic pain of left knee - ICD9: 719.46, 338.29, ICD10: M25.562, G89.29 PT and orthopedics follow-up as instructed Prescription instructions reviewed with patient as applicable. Potential red flag symptoms discussed with the patient. Reviewed appropriate action plan to take if red flag symptoms occur. Patient agreeable to treatment plan. Marianna Yap APRN.RIGO documented in this encounter [facility] 12-27-2023 Instructions Terrence Flores APRN.CNP - 12/27/2023 3:34 PM EDT Lung nodule/s: no new nodules of concern. Please return in one year for the following 2 visits on the same day: Annual low-dose CT chest Lung cancer screening Provider visit. This recommendation is subject to change pending the final report from radiology. I will notify you of the final radiology report recommendations when available by Netaplanhart message, letter, or phone call. We will also notify your referring provider/PCP of the results and recommendations. If you didn t schedule this before you left the office or need to reschedule, you can call in to schedule it anytime: [facility] [place] [phone] [facility] [phone] All other [facility] locations [phone] Feel free to reach out for any questions or concerns, Terrence Flores APRN.CNP Lung Cancer Screening [phone] documented in this encounter [facility] 12-27-2023 History of Present illness Narrative Images from the original note were not included. LUNG SCREENING ANNUAL VISIT PRIMARY CARE PHYSICIAN: Leonid Rice MD PULMONARY PROVIDER: Saw Dr. Hensley in the past. Last visit 2021. Results will be communicated via letter or electronic record if applicable. Visit Delivery: In Person Patient Visit Type: established Current or Ex-smoker? [Current Exam Type: annual LDCT Number of Pack Years: 22 Current smoker (=0) The patient's smoking history is similar to prior year shared decision visit. The reason for the discrepancy is NA Chief Complaint: Established patient in lung cancer screening program here for annual follow-up. Impression / Recommendations Jennifer Mcmullen presents for annual lung cancer screening annual exam and nodule evaluation. Plan: Indeterminate pulmonary nodules: No new nodules of concern were seen on the exam. Low dose CT Scan to be repeated in one year. Plan subject to change pending final radiology report and recommendations. Nature of the lung nodule(s) and the options for further evaluation discussed in detail with patient. Jennifer Mcmullen expressed understanding and is in agreement with plan. 2. Encounter for screening for malignant neoplasm of respiratory organs I have determined that the patient is eligible for continued low dose CT screening based on age, absence of signs or symptoms of lung cancer, smoking history and total pack years. The patient was counseled on the importance of adherence to annual LDCT lung cancer screening, impact of comorbidities and ability or willingness to undergo diagnosis and treatment. The patient understands and feels comfortable with it: Yes. 3. Nicotine Dependence The patient was counseled on the importance of smoking cessation if current smoker and, if appropriate, offered additional tobacco cessation counseling services - Smoking Cessation Counseling. SMOKING CESSATION COUNSELING Smoking cessation methods including Behavior Modification were discussed with the patient and assistance offered. The medical conditions adversely affected by cigarette use include:COPD, Emphysema, and Lung Cancer. Daughter reports she has tried in the past and will go back to smoking. Counseled on benefits of quitting smoking, recommended cessation or reduction to prevent development and/or progression of emphysema. The patient is currently not ready to quit. I personally spent 2 minutes in counseling. The time spent in smoking cessation counseling is exclusive of any other counseling during this visit. I spent a total of 30 minutes on the date of the service which included preparing to see the patient, [id number] patient care, completing clinical documentation, performing a medically appropriate examination, counseling and educating the patient/family/caregiver, ordering medications, tests, or procedures, communicating with other HCPs (not separately reported), independently interpreting results (not separately reported), communicating results to the patient/family/caregiver, and care coordination (not separately reported). Terrence Flores APRN.[facility] December 27, 2023 12:08 PM History of Present Illness: Jennifer Mcmullen is a 63 year old female who is presenting today for annual lung cancer screening LDCT and nodule surveillance/management. Patient has no lung nodules found on previous lung cancer screening LDCT. Last LDCT was performed on 03/31/2022 and was LUNG RADS Category 1. Previous potentially significant incidental findings on imaging: None. Accompanied by her daughter and she interprets some things for her. Patient is a current smoker with a 22 pack year history. Patient is currently still smoking 1/2 pack cigarettes daily. Patient will continue to be eligible for lung cancer screening until age 79. The patient does not have any symptoms or signs of lung cancer. Patient has SOB with their daily activity, with stairs. No wheezing or dyspnea. Patient denies feeling of chest tightness/congestion in the chest. Patient does not have a new or concerning cough, and denies hemoptysis. Patient does not have a chronic daily cough. Denies regular or recent fevers/chills. Patient does not have any significant unintentional weight loss. Patient denies having any respiratory infections or COVID-19 in the past few months. Taking Breo and spiriva daily. Modified Medical Research [place] Dyspnea Scale (MMRC) I only get breathless with strenous exercise 0 Last 12 Encounter Wt Readings: Date: Wt: 12/01/2023 97.3 kg (214 lb 8.1 oz) 08/23/2023 97.1 kg (214 lb) 03/20/2023 95.2 kg (209 lb 12.8 oz) 03/02/2023 95.7 kg (211 lb) 12/15/2022 97.1 kg (214 lb) 11/28/2022 95.7 kg (211 lb) 11/18/2022 97.1 kg (214 lb) 05/31/2022 97.1 kg (214 lb) 02/16/2022 100.2 kg (221 lb) 02/15/2022 100.2 kg (221 lb) 02/11/2022 100.2 kg (220 lb 14.4 oz) 12/31/2021 100.2 kg (221 lb) Social History Tobacco Use: Types: Cigarettes Past Medical History: PAST MEDICAL HISTORY Diagnosis Date Arthritis Asthma Chronic low back pain 05/27/2014 Work injury 2006 Depression [facility] Diabetes mellitus (HCC) Disc slipped disc in back Fracture of right ankle Head injury Helicobacter pylori infection 09/12/2016 Hernia, hiatal Hyperglycemia 2010 Insomnia JOSSELIN (obstructive sleep apnea) 02/25/2019 Post-traumatic headache 01/16/2014 Postmenopausal Prediabetes 04/08/2019 PTSD (post-traumatic stress disorder) Tobacco use Family Hx: FAMILY HISTORY Problem Relation Age of Onset Heart Mother 70 Diabetes Mother Hypertension Mother Asthma Mother Hypertension Father Diabetes Father Colon Cancer Father in his seventies Asthma Sister Asthma Brother Seizures Brother Coronary Artery Disease Brother [place] Surgical Hx: PAST SURGICAL HISTORY Procedure Laterality Date APPENDECTOMY 2012 [facility] SECTION HX 1980 x 2 CHOLECYSTECTOMY 1989 COLONOSCOPY 01/10/2018 Random bx neg. internal hemorrhoids. lax anal tone. [facility] in [facility] COLONOSCOPY FLX DX W/COLLJ SPEC WHEN PFRMD 06/12/2014 Colonoscopy out pt [facility] EGD 04/10/2018 Hpylori negative - [facility] in [facility] ESOPHAGOGASTRODUODENOSCOPY TRANSORAL DIAGNOSTIC 06/12/2014 EGD outpt [facility] HERNIA REPAIR HX 12/01/2011 TOTAL ABDOMINAL HYSTERECT W/WO RMVL TUBE OVARY 1980 fibroid Allergies: ALLERGIES Allergen Reactions Latex Itching Voltaren [Diclofena* Other: See Comments voltaren gel causes burning sensation to area in which it is applied Review Of Systems: See HPI for ROS All of the remainder systems were reviewed and negative. PHYSICAL EXAMINATION: BP 116/76 Pulse 90 Wt 215 lb 2.7 oz (97.6kg) SpO2 98% General appearance: well appearing, in no acute distress, and alert Skin: skin color, texture, turgor normal, no rashes or lesions Neck: Supple, no adenopathy; thyroid symmetric, normal size, no bruits Respiratory: lungs clear to auscultation no wheezing or rhonchi Cardiovascular: Negative. RRR without murmur, gallop, or rubs. No ectopy Musculoskeletal: Extremities normal. No deformities, edema, or skin discoloration. Neuro: Oriented X 3 Data Review I have visually reviewed imaging and testing below CT imaging done today was reviewed and analyzed independently and compared to prior CT chest imaging by practitioner and awaiting radiology review. No lung nodules of concern noted. Imaging Last CT/CTA Chest/Lungs CT LUNG SCREEN WO IVCON Exam End: 03/31/2022 2:03 PM (Final result) Narrative: * * *Final Report* * * DATE OF EXAM: Mar 31 2022 2:03PM [facility] [id number] - CT LUNG SCREEN WO IVCON / PROCEDURE REASON: multiple diagnoses * * * * Physician Interpretation * * * * EXAMINATION: CHEST CT WITHOUT CONTRAST (LOW-DOSE CT LUNG CANCER SCREENING PROTOCOL) CLINICAL HISTORY: Lung cancer LDCT screening ? absence of signs or symptoms of lung cancer. Nicotine dependence (cigarettes). Subsequent (annual) Technique: Spiral CT acquisition of the chest from the thoracic inlet to the upper abdomen without contrast. MQ: [id number] Patient characteristics: * Sduh-oh-Lezgr: 1960; Age at exam: 61 years * Gender: Female * Lung Disease: Asymptomatic (no signs or symptoms of lung disease) * Number of Pack Years: 75 * Current smoker (=0) or Number of Years since Quit: 0 * Ordering provider and NPI: ARCELIA GARCIA [id number] * Interpreting radiologist and NPI: Jarad [id number] Exam acquisition parameters: * Exam Date: 03/31/2022 2:03 PM * Site: [facility] * * CT System [employer] Principal: [employer] * CT System Model: [employer] * Tube Current-Time (mA-sec): 60 * Peak Voltage (kV): 120V * Scan Time (sec): 5 * Scan Volume (z-length, cm): 28.00 * Pitch: 0.984 * Slice Thickness (mm): 1.25 * CT Dose-Length Product: 83.76 mGy*cm * CT Dose Index: 2.65mGy * CT Dose Reduction Method: mAs-kVp adjusted based on patient size-age COMPARISON: Chest CT dated 05/20/2020 RESULT: Are nodules present? Yes, 1-5 nodules Nodule 1: This Calcified nodule is located in the Right Lower Lobe on slice number 126 with an average diameter of 4.5 mm (5.4 mm x 3.5 mm). This calcified nodule is unchanged and is consistent with a granuloma. Other lung nodule comments: Other findings: Bronchial wall thickening is present bilaterally. Unchanged linear density in the left lower lobe, image 26, likely atelectasis or scar. No focal consolidation. No enlarged thoracic lymph nodes. No distinct coronary artery atherosclerotic calcifications however, this exam is not optimized for coronary artery assessment. Cholecystectomy clips are noted. No abnormality identified within the imaged solid abdominal organs on this noncontrast exam. Surgical material is present in the anterior abdominal wall. No destructive lytic or blastic bone lesion. Multilevel mild degenerative changes are present throughout the thoracic spine. Emphysema: None Coronary Artery Calcifications: Circumflex None; Left Anterior Descending None; Right Coronary None Procurement Intern (topogram) images: No additional findings. Impression: IMPRESSION: LungRADS category: 1 LungRADS modifier: None LungRADS 0 reason: n/a Recommendations: Continue annual screening with LDCT in 12 months. Other actionable findings: ======= Reference: [employer]. Lung CT Screening Reporting and Data System (Lung-RADS). Available at: http://www.acr.org/Quality-Safety/ Resources/LungRADS Operational Communication Chief: AMADO Transcribe Date/Time: Mar 31 2022 10:29P Dictated by : RENALDO ONEILL MD This examination was interpreted and the report reviewed and electronically signed by: RENALDO ONEILL MD on Mar 31 2022 10:49PM EST Last CT Chest - Impression Only No resulted procedures found. Last XR Chest - Impression Only XR CHEST 2V FRONTAL/LAT Exam End: 03/17/2017 1:22 PM (Final result) Impression: No acute cardiopulmonary disease. Pulmonary Function Testing: SPIROMETRY WITH DILATOR IF OBSTRUCTED ([id number]) - ordered on 10/18/18 [facility] [address] [place] [id number] Test Date: 2018-10-18 Pat Name: JENNIFER CAPUTOENTIN Department: Room: Gender: Female Residential Finish Carpenter: : 1960 Requested By: Order Number: [id number] Reading MD: Zack Walker Interpretive Statements ATS repeatability standards for spirometry met. Time to peak flow higher than lab standard, FEV1 may not be valid. ATS acceptability and repeatability standards for DLCO met. DLCO is not hemoglobin corrected. IMPRESSION: Spirometry shows no obstruction. The reduced FVC suggests moderate restriction. Recommend lung volumes if clinically indicated. The diffusi ng capacity is normal. Electronically Signed On 10-19-2018 7:37:30 EDT by Zack Walker [facility] [address] [place], [place] [address] PFT Lab Report Name: JENNIFER RAMIREZ ID: [id number] Date: 10/18/18 Physician: Genaro JACK Age: 57 Height(in): 60.0 Weight(lb): 234 Gender: Female Race: Diagnosis: Medication Set 1: Dyspnea Rest: No Dyspnea Exercise: No Cough: No Persistent: No Productive (cc): Smoker: No How Long: Stopped: Cigarettes: No Residential Finish Carpenter: Suha Dodson RCP Temp: 26 PBar: 734 PF Reference: ######## Spirometry Hb: gm/dL Ref Pre Pre Post Post Post Enedelia % Ref Enedelia % Ref % Chg FVC Liters 2.94 1.64 56 FEV1 Liters 2.30 1.33 58 FEV1/FVC % 79 81 TGJ19-91% L/sec 2.33 1.49 64 RapVZW50-44 L/sec 2.50 1.49 60 PEF L/sec 5.92 4.11 69 URM263% Sec 6.26 MVV L/min 92 f BPM Lung Volumes TLC Liters 4.43 VC Liters 2.94 IC Liters 1.77 FRC N2 Liters 2.46 ERV Liters 0.89 RV Liters 1.68 RV/TLC % 37 Diffusing Capacity DLCO mL/mmHg/min 20.5 15.7 77 DL Adj mL/mmHg/min 20.5 15.7 77 DLCO/VA mL/mHg/min/L 4.71 6.11 130 DL/VA Adj mL/mHg/min/L 4.71 6.11 130 VA Liters 4.36 2.58 59 IVC Liters 1.70 103 BHT Sec 10.65 Resistance Raw cmH2O/L/sec 2.68 sGaw L/s/cmH2O/L 0.240 Respiratory Muscle Force PI max cmH2O 76 PE max cmH2O 141 null documented in this encounter [facility] 12-27-2023 Note HNO ID: [id number] Author: TERRENCE FLORES APRN.CNP Service: ? Author Type: Nurse Practitioner Type: Progress Notes Filed: 12/29/2023 10:23 Note Text: LUNG SCREENING ANNUAL VISIT PRIMARY CARE PHYSICIAN: Leonid Rice MD PULMONARY PROVIDER: Saw Dr. Hensley in the past. Last visit 2021. Results will be communicated via letter or electronic record if applicable. Visit Delivery: In Person Patient Visit Type: established Current or Ex-smoker? [Current Exam Type: annual LDCT Number of Pack Years: 22 Current smoker (=0) The patient's smoking history is similar to prior year shared decision visit. The reason for the discrepancy is NA Chief Complaint: Established patient in lung cancer screening program here for annual follow-up. Impression / Recommendations Jennifer Mcmullen presents for annual lung cancer screening annual exam and nodule evaluation. Plan: Indeterminate pulmonary nodules: No new nodules of concern were seen on the exam. Low dose CT Scan to be repeated in one year. Plan subject to change pending final radiology report and recommendations. Nature of the lung nodule(s) and the options for further evaluation discussed in detail with patient. Jennifer Mcmullen expressed understanding and is in agreement with plan. 2. Encounter for screening for malignant neoplasm of respiratory organs I have determined that the patient is eligible for continued low dose CT screening based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 03/31/2023 Mammogram Screening due on 06/04/2023 Dilated Retinal Exam due on 08/12/2023 Annual PCP Team Chronic Disease Visit due on 08/22/2024 DTaP,Tdap,Td Vaccine(3 - Td or Tdap) due on 05/06/2029 Spirometry Completed Influenza Vaccine Completed Hepatitis C Screening Completed HIV Screening Completed Pneumococcal Vaccine Completed Alpha-1 Antitrypsin Deficiency Screening Discontinued Cervical Cancer Screening Discontinued DATA REVIEWED: Most recent labs ASSESSMENT/PLAN: 1. Type 2 diabetes mellitus without complication, without long-term current use of insulin (HCC) - ICD9: 250.00, ICD10: E11.9 (primary diagnosis) - Control undetermined, due for labs - Continue current medications - BLOOD SUGAR DIAGNOSTIC STRIPS - LANCETS - COMPREHENSIVE METABOLIC PANEL - HEMOGLOBIN A1C - LIPID PANEL BASIC - ALBUMIN/CREATININE RATIO, URINE - CONSULT TO OPHTHALMOLOGY 2. Left hand pain - ICD9: 729.5, ICD10: M79.642 Suspect dupuytren's contracture - CONSULT TO ORTHOPAEDICS 3. Moderate persistent asthma, unspecified whether complicated - ICD9: 493.90, ICD10: J45.40 stable 4. Obesity, Class III, BMI >= 40 - ICD9: 278.01, ICD10: E66.01 Weight increasing 5. Screening for colon cancer - ICD9: V76.51, ICD10: Z12.11 - PEG 3350-ELECTROLYTES 236 GRAM-22.74 GRAM-6.74 GRAM-5.86 GRAM SOLUTION - COLONOSCOPY SCREENING 6. Encounter for immunization - ICD9: V03.89, ICD10: Z23 - ZOSTER VACCINE, RECOMBINANT (SHINGRIX) Prescription instructions reviewed with patient as applicable. Potential red flag symptoms discussed with the patient. Reviewed appropriate action plan to take if red flag symptoms occur. Patient agreeable to treatment plan. Marianna Yap APRN.[facility] UPDATED HISTORY AND PHYSICAL EXAMINATION SERVICE DATE: 09/13/2023 SERVICE TIME: 7:20 AM PHYSICAL EXAM MUST BE COMPLETED ON ADMISSION The History and Physical (completed in the past 30 days) has been reviewed and the patient has been examined. The contents accurately reflect the patient's condition with the following additions or revisions since the H&P was completed. Examination indicates no changes. This H&P can be found in the attached. SIGNATURE: Zachery Toussaint III, MD PATIENT NAME: Jennifer Mcmullen DATE: September 13, 2023 TIME: 7:20 AM [facility] 09-13-2023 History and physical note CC: Patient presents with: Physical: wants referral for left hand - cyst with decreased mobility x 7 months HPI Jennifer Mcmullen is a 62 year old female who presents today for above. Diabetes: Home blood sugar readings: fasting around 110 daily Hypoglycemia: No She is compliant with medication(s) and is tolerating med(s) without any side effects. Increased thirst: No Urinary frequency: No Nocturia: No Fatigue: No Unintentional weight loss: No Blurred vision: No Numbness, tingling or pain in extremities: No Ulcers or sores on feet: No Last Ophthalmology exam: over two years ago Patient's last HgA1C : Hemoglobin A1C (%) Date Value 05/31/2022 6.3 09/30/2021 6.3 08/21/2020 6.7 04/03/2019 6.4 Hemoglobin A1C (POCT) (%) Date Value 04/02/2021 6.5 GERD- Symptoms include nausea and sour taste in her mouth Symptoms are precipitated with nothing she can think of Alleviated with taking antacids. Denies epigastric abdominal pain, weight loss, dysphagia, black stools, diarrhea, constipation, and bloating. Alcohol, tobacco, significant amounts of caffeine or NSAIDS: No Previous studies include EGD in 2017 indicating hiatal hernia, otherwise normal. Left hand pain: since February. She has two small hard nodules in the palm of the hand that are very tender. She is unable to make a fist due to pain and stiffness in the 2nd through 4th fingers. Review of Systems Constitutional: Negative for chills, diaphoresis, fatigue and fever. HENT: Negative for sore throat. Respiratory: Negative for cough and wheezing. Genitourinary: Negative for decreased urine volume and dysuria. Neurological: Negative for dizziness, syncope, weakness and light-headedness. PAST MEDICAL HISTORY PAST MEDICAL HISTORY Diagnosis Date Asthma Chronic low back pain 05/27/2014 Work injury 2006 Depression [facility] Diabetes mellitus (HCC) Disc slipped disc in back Fracture of right ankle Head injury Helicobacter pylori infection 09/12/2016 Hernia, hiatal Hyperglycemia 2010 Insomnia JOSSELIN (obstructive sleep apnea) 02/25/2019 Post-traumatic headache 01/16/2014 Postmenopausal Prediabetes 04/08/2019 PTSD (post-traumatic stress disorder) Tobacco use PAST SURGICAL HISTORY PAST SURGICAL HISTORY Procedure Laterality Date APPENDECTOMY 2012 [place] SECTION HX 1979 x 2 CHOLECYSTECTOMY 1989 COLONOSCOPY 01/10/2018 Random bx neg. internal hemorrhoids. lax anal tone. [facility] COLONOSCOPY FLX DX W/COLLJ SPEC WHEN PFRMD 06/12/2014 Colonoscopy out pt [facility] EGD 04/10/2018 Hpylori negative - [facility] ESOPHAGOGASTRODUODENOSCOPY TRANSORAL DIAGNOSTIC 06/12/2014 EGD outpt [facility] HERNIA REPAIR HX 12/01/2011 TOTAL ABDOMINAL HYSTERECT W/WO RMVL TUBE OVARY 1979 fibroid ALLERGIES Latex and Voltaren [Diclofenac Sodium] MEDICATIONS CURRENT MEDICATIONS topiramate (TOPAMAX) 50 mg tablet Take 1 tablet by mouth two times a day. albuterol HFA (PROVENTIL HFA, VENTOLIN HFA) 90 mcg/actuation inhaler Inhale 2 Puffs as instructed every 4 hours as needed for wheezing/shortness of breath. fluticasone-vilanterol (BREO ELLIPTA) 200-25 mcg/dose inhaler inhale 1 puff by mouth and INTO THE LUNGS once daily naproxen (NAPROSYN) 500 mg tablet Take 1 tablet by mouth two times a day as needed for pain (for pain/inflammation). Take with food. FLUoxetine (PROZAC) 40 mg capsule Take 1 capsule by mouth once daily. [facility] C[facility]. albuterol (PROVENTIL) 2.5 mg /3 mL (0.083 %) nebulizer solution Use 3 mL via nebulizer every 4 hours as needed for wheezing/shortness of breath. Lancets lancets Test blood sugar(s) 1 times daily. Dx: Type 2 DM - Controlled E11.9 Insulin: No blood sugar diagnostic (BLOOD GLUCOSE TEST) test strip Test blood sugar(s) 1 times daily. Dx: Type 2 DM - Controlled E11.9 Insulin: No polyethylene glycol 3350 (MIRALAX) 17 gram/dose powder Take 17 g by mouth once daily as needed for constipation. traZODone (DESYREL) 100 mg tablet Take 2 tablets by mouth daily at bedtime. Noble Gilbert CNP, [facility]. tiotropium bromide (SPIRIVA RESPIMAT) 2.5 mcg/actuation inhaler Inhale 2 Puffs as instructed once daily. Nebulizer NEBULIZER FOR HOME USE. DX: J45.41. Nebulizer and supplies. Face mask preferred. FAMILY HISTORY FAMILY HISTORY Problem Relation Age of Onset Heart Mother 70 Diabetes Mother Hypertension Mother Asthma Mother Hypertension Father Diabetes Father Colon Cancer Father in his seventies Asthma Sister Asthma Brother Seizures Brother Coronary Artery Disease Brother [place] SOCIAL HISTORY Social History Tobacco Use Smoking status: Every Day Packs/day: 1.50 Years: 50.00 Additional pack years: 0.00 Total pack years: 75.00 Types: Cigarettes Smokeless tobacco: Never Tobacco comments: Started as a teenager, can't remember. Down to about 1 pack every 3 days lately Vaping Use Vaping Use: Never used Substance Use Topics Alcohol use: No Drug use: No BP 134/74 (BP Site: Left Arm, BP Position: Sitting, BP Cuff Size: Large Adult) Pulse 86 Temp 37.2 C (98.9 F) Resp 14 Ht 157.5 cm (5' 2) Wt 97.1 kg (214 lb) SpO2 98% BMI 39.14 kg/m Physical Exam Vitals reviewed. Constitutional: Appearance: Normal appearance. Eyes: Conjunctiva/sclera: Conjunctivae normal. Neck: Thyroid: No thyroid mass, thyromegaly or thyroid tenderness. Cardiovascular: Rate and Rhythm: Normal rate and regular rhythm. Pulses: Normal pulses. Heart sounds: Normal heart sounds. No murmur heard. Pulmonary: Effort: Pulmonary effort is normal. Breath sounds: Normal breath sounds. No wheezing, rhonchi or rales. Musculoskeletal: Right hand: Normal. Left hand: No swelling or deformity. Normal capillary refill. Normal pulse. Comments: Left hand- palmar surface below 2nd and 3rd fingers- hard nodules x 2, very tender with palpation. Unable to curl fingers or make a fist with left hand Feet: Comments: Shoes and socks removed, No deformities, ulcers, calluses, normal distal pulses, sensitive to 10 gm monofilament, vibratory perception normal, and no edema. Skin to the bottom of both feet- dry and flaky Lymphadenopathy: Cervical: No cervical adenopathy. Upper Body: Right upper body: No supraclavicular adenopathy. Left upper body: No supraclavicular adenopathy. Skin: General: Skin is warm and dry. Neurological: Mental Status: She is alert. Psychiatric: Mood and Affect: Mood normal. Health maintenance reviewed with patient: Shingrix Vaccine(1 of 2) Never done Urine Albumin:Creatinine Ratio due on 09/30/2022 LDL Cholesterol due on 09/30/2022 Diabetic Foot Exam due on 09/30/2022 RSV Vaccine(1 - 1-dose 60+ series) Never done Covid-19 Vaccine( - season) due on 2022 HbA1C due on 12/01/2022 Colorectal Cancer Screening due on 01/02/2023 Lung Cancer Screening due on 03/31/2023 Mammogram Screening due on 06/04/2023 Dilated Retinal Exam due on 08/12/2023 Annual PCP Team Chronic Disease Visit due on 08/22/2024 DTaP,Tdap,Td Vaccine(3 - Td or Tdap) due on 05/06/2029 Spirometry Completed Influenza Vaccine Completed Hepatitis C Screening Completed HIV Screening Completed Pneumococcal Vaccine Completed Alpha-1 Antitrypsin Deficiency Screening Discontinued Cervical Cancer Screening Discontinued DATA REVIEWED: Most recent labs ASSESSMENT/PLAN: 1. Type 2 diabetes mellitus without complication, without long-term current use of insulin (HCC) - ICD9: 250.00, ICD10: E11.9 (primary diagnosis) - Control undetermined, due for labs - Continue current medications - BLOOD SUGAR DIAGNOSTIC STRIPS - LANCETS - COMPREHENSIVE METABOLIC PANEL - HEMOGLOBIN A1C - LIPID PANEL BASIC - ALBUMIN/CREATININE RATIO, URINE - CONSULT TO OPHTHALMOLOGY 2. Left hand pain - ICD9: 729.5, ICD10: M79.642 Suspect dupuytren's contracture - CONSULT TO ORTHOPAEDICS 3. Moderate persistent asthma, unspecified whether complicated - ICD9: 493.90, ICD10: J45.40 stable 4. Obesity, Class III, BMI >= 40 - ICD9: 278.01, ICD10: E66.01 Weight increasing 5. Screening for colon cancer - ICD9: V76.51, ICD10: Z12.11 - PEG 3350-ELECTROLYTES 236 GRAM-22.74 GRAM-6.74 GRAM-5.86 GRAM SOLUTION - COLONOSCOPY SCREENING 6. Encounter for immunization - ICD9: V03.89, ICD10: Z23 - ZOSTER VACCINE, RECOMBINANT (SHINGRIX) Prescription instructions reviewed with patient as applicable. Potential red flag symptoms discussed with the patient. Reviewed appropriate action plan to take if red flag symptoms occur. Patient agreeable to treatment plan. Marianna Yap, MEÑO.[facility] UPDATED HISTORY AND PHYSICAL EXAMINATION SERVICE DATE: 09/13/2023 SERVICE TIME: 7:20 AM PHYSICAL EXAM MUST BE COMPLETED ON ADMISSION The History and Physical (completed in the past 30 days) has been reviewed and the patient has been examined. The contents accurately reflect the patient's condition with the following additions or revisions since the H&P was completed. Examination indicates no changes. This H&P can be found in the attached. SIGNATURE: Zachery Toussaint III, MD PATIENT NAME: Jennifer Mcmullen DATE: September 13, 2023 TIME: 7:20 AM documented in this encounter [facility] 09-11-2023 Telephone encounter Note Spoke Wilfredo, daughter and message below given. [facility] number [phone] given. Ligia Armijo LPN [facility] 09-11-2023 Telephone encounter Note ----- Message from Leonid Rice MD sent at 09/11/2023 8:06 AM EDT ----- Abnormal mammogram left. Additional views ordered. [facility] 09-11-2023 Miscellaneous Notes Spoke Wilfredo, daughter and message below given. [facility] number [phone] given. Ligia Armijo LPN ----- Message from Leonid Rice MD sent at 09/11/2023 8:06 AM EDT ----- Abnormal mammogram left. Additional views ordered. documented in this encounter [facility] 08-31-2023 Telephone encounter Note Left message & mailed instructions for new prep [facility] 08-31-2023 Miscellaneous Notes Left message & mailed instructions for new prep yes Patient us allergic to Golytley, Miralax/Ducolax ok with you Dr Toussaint? Pt calling to inform of previous allergic reaction to Golytely. She states that she had to cantu to the hospital with a rash last time she tried to take it. Asking for alternative. Has 7/[address] Toussaint Uses [facility]. Please review and advise. Ligia Rondon MA documented in this encounter [facility] 08-31-2023 Telephone encounter Note yes [facility] Work Phone: 08-30-2023 Telephone encounter Note Patient us allergic to Golytley, Miralax/Ducolax ok with you Dr Toussaint? [facility] 08-30-2023 Telephone encounter Note Pt calling to inform of previous allergic reaction to Golytely. She states that she had to cantu to the hospital with a rash last time she tried to take it. Asking for alternative. Has 7/[address] Toussaint Uses [facility]. Please review and advise. Ligia Rondon MA [facility] 08-30-2023 Note Formatting of this n ote might be different from the original. August 30, 2023 PID: [id number] Jennifer Mcmullen [address] [place] [address] Dear Ms. Yajaira Franc, Your recent breast imaging exam on 08/29/2023 showed a possible finding that requires additional imaging studies for a complete evaluation. Most such findings are probably benign (not cancer). If you have a healthcare provider who ordered/prescribed your screening mammogram: Please call [phone] or EXT: [phone] to schedule an appointment for your additional imaging (if you have not already done so). If you DO NOT have a healthcare provider (ie you did not have an order/prescription for your screening mammogram): Please call to schedule an appointment for your additional imaging (if you have not already done so). You must have an order/prescription from your physician when calling to schedule your appointment. If your order/prescription is not electronic, you must bring the hard copy with you on the day of your exam to avoid delays. Your imaging studies and reports are kept on file at [facility] as part of your permanent medical record, and are available for your continuing care. Thank you for allowing us to help in meeting your health care needs. Sincerely, Dr. Yoon Interpreting Radiologist [facility] (Additional imaging) [facility] 08-30-2023 Miscellaneous Notes August 30, 2023 PID: [id number] Jennifer Mcmullen [address] [place] [address] Dear Ms. Yajaira Mcmullen, Your recent breast imaging exam on 08/29/2023 showed a possible finding that requires additional imaging studies for a complete evaluation. Most such findings are probably benign (not cancer). If you have a healthcare provider who ordered/prescribed your screening mammogram: Please call [phone] or EXT: [phone] to schedule an appointment for your additional imaging (if you have not already done so). If you DO NOT have a healthcare provider (ie you did not have an order/prescription for your screening mammogram): Please call to schedule an appointment for your additional imaging (if you have not already done so). You must have an order/prescription from your physician when calling to schedule your appointment. If your order/prescription is not electronic, you must bring the hard copy with you on the day of your exam to avoid delays. Your imaging studies and reports are kept on file at [facility] as part of your permanent medical record, and are available for your continuing care. Thank you for allowing us to help in meeting your health care needs. Sincerely, Dr. Yoon Interpreting Radiologist [facility] (Additional imaging) documented in this encounter [facility] 08-29-2023 History of Present illness Narrative Radiology Service Progress Note PATIENT NAME: Jennifer Mcmullen DATE OF SERVICE: August 29, 2023 TIME: 12:57 PM PATIENT IDENTITY VERIFICATION COMPLETED USING TWO (2) IDENTIFIERS: Name and Date of confirmed by patient verbally. FALL SCREENING: Has the patient had 2 falls in the last year or 1 fall with injury or currently using an Ambulatory Assistive Device (Walker, Cane, Wheelchair, Crutches, etc.)? No PATIENT GENDER DATA: Female. status: : No status: NO. PATIENT RELEVANT IMPLANT DATA REVIEWED: Not Applicable PATIENT PRESENTS WITH AN IMPLANTABLE OR ATTACHED ASSISTANT PROGRAM MANAGER: No RADIOLOGY DEPARTMENT: Mammography PERIPHERAL IV DATA: Not applicable SIGNED BY: RT Karlene(Axel) August 29, 2023 12:57 PM documented in this encounter [facility] 08-29-2023 Note HNO ID: [id number] Author: CLAUDIA CABALLERO RT(R) Service: ? Author Type: Technologist Type: Progress Notes Filed: 08/29/2023 12:57 Note Text: Radiology Service Progress Note PATIENT NAME: Jennifer Mcmullen DATE OF SERVICE: August 29, 2023 TIME: 12:57 PM PATIENT IDENTITY VERIFICATION COMPLETED USING TWO (2) IDENTIFIERS: Name and Date of confirmed by patient verbally. FALL SCREENING: Has the patient had 2 falls in the last year or 1 fall with injury or currently using an Ambulatory Assistive Device (Walker, Cane, Wheelchair, Crutches, etc.)? No PATIENT GENDER DATA: Female. status: : No status: NO. PATIENT RELEVANT IMPLANT DATA REVIEWED: Not Applicable PATIENT PRESENTS WITH AN IMPLANTABLE OR ATTACHED ASSISTANT PROGRAM MANAGER: No RADIOLOGY DEPARTMENT: Mammography PERIPHERAL IV DATA: Not applicable SIGNED BY: RT Karlene(R) August 29, 2023 12:57 PM [facility] 08-23-2023 Instructions Marianna Yap, MEÑO.[facility] - 08/23/2023 5:49 PM EDT Images from the original note were not included. I referred you to orthopedics for the hand pain and cysts. Please have your daughter call to schedule appointment Nausea and sour taste in mouth are likely due to gastric reflux: 1. start omeprazole 40 mg daily. Take once a day in the morning on an empty stomach and wait at least 30 minutes before eating 2. Eat 6 small meals a day instead of 2 or 3 big ones. This is to keep some food in your stomach so the acid has something to work on. Eat slowly. Don't lie down for 2 to 3 hours after eating. Avoid eating or drinking anything right before going to bed. 3. Elevate head of bed on blocks approximately 4-6 inches. It is not sufficient to just use a wedge pillow. Bending at waist increases intra-abdominal pressure, which will increase reflux. 4. Minimize/eliminate chocolate, coffee, peppermint, fruit juices, tomatoes, greasy and spicy foods. All of these either stimulate stomach acid production, or are acidic themselves. 5. Weight loss is always beneficial. Abdominal weight increases intra-abdominal pressure, which increases gastroesophageal reflux symptoms. 6. Don't smoke. This causes the stomach to make more acid. 7. Follow-up in 4 week(s) if symptoms do not improve or sooner if worsening For dry feet: start using a diabetic foot lotion such as Eucerin at least twice a day to prevent skin breakdown and infection Bowel Preparation Instructions for: Golytely, Nulytely, Trilyte or Colyte (polyethylene glycol 3350 and electrolytes) IF YOU DO NOT FOLLOW THESE DIRECTIONS, YOUR COLONOSCOPY WILL BE CANCELLED. Weir Instructions: Your bowel must be empty so that your doctor can clearly view your colon. Follow all of the instructions in this handout EXACTLY as they are written. Do NOT eat any solid food the ENTIRE day before your colonoscopy. Drink only clear liquids. Buy your bowel preparation at least 5 days before your colonoscopy. TRANSPORTATION on the Day of Your Exam A responsible person MUST be present with you at Check In prior to your colonoscopy and REMAIN in the endoscopy area until you are discharged. You are NOT ALLOWED to drive, take a taxi or bus, or leave the Endoscopy Center ALONE. If you do not have a responsible driver service technician (family member or friend) with you to take you home, your exam cannot be done with sedation and will be cancelled. Please bring a list of all of your current medications, including any Over-the Counter medications with you. Medications If you take insulin, diabetic medications or blood thinners such as Coumadin (warfarin), Plavix (clopidogrel), Ticlid (ticlopidine hydrochloride), Agrylin (anagrelide), Xarelto (Rivaroxaban), Pradaxa (Dabigatran), Eliquis (Apixaban), and Effient (Prasugrel). You MUST call the doctors who orders those medicines for instructions on altering the dosage before your colonoscopy. All other medications should be taken the day of the exam with a sip of water including ASPIRIN. Five (5) Days Before Your Colonoscopy Do NOT take medicines that stop diarrhea - such as Imodium, Kaopectate, or Pepto Bismol. Do NOT take fiber supplements - such as Metamucil, Citrucel, or Perdiem. Do NOT take products that contain iron - such as multi-vitamins (the label lists what is in the products). Do NOT take Vitamin E. Buy the prescription bowel preparation solution at your local pharmacy or drugstore pharmacy. 02/2019 Bowel Preparation Instructions for: Golytely, Nulytely, Trilyte or Colyte (polyethylene glycol 3350 and electrolytes) Three (3) Days Before Your Colonoscopy Do NOT eat high-fiber foods - such as popcorn, beans, seeds (flax, sunflower, quinoa), multigrain bread, nuts, salad/vegetables, or fresh and dried fruit. One (1) Day Before Your Colonoscopy Only drink clear liquids the ENTIRE DAY before your colonoscopy. Do NOT eat any solid foods. Drink at least 8 ounces of clear liquids every hour after waking up. The clear liquids you can drink include: Clear Liquid (NO RED LIQUIDS) DO NOT DRINK Gatorade, Pedialyte or Powerade Clear broth or bouillon Coffee or tea (no milk or non-dairy creamer) Carbonated and non-carbonated soft drinks Rene-Aid or other fruit flavored drinks Strained fruit juices (no pulp) Jell-O, popsicles, hard candy Water Alcohol Milk or non-dairy creamers Noodles or vegetables in soup Juice with pulp Liquid you cannot see through Do not use tobacco/vaping products The bowel preparation solution will be consumed in two parts. Mix the solution the evening before your colonoscopy and refrigerate before drinking. You may add the flavor pack that came with the bowel preparation. Do NOT add ice, sugar or any other flavorings to the solution. Part 1 At 6:00 PM - Evening before your colonoscopy Drink an 8-oz glass of bowel preparation every 10 minutes for a total of 8 glasses. You may continue to drink clear liquids until midnight. Part 2 On the day of your colonoscopy you may drink clear liquids up to (three) 3 hours before your procedure. 4 1/2 hours before your colonoscopy Drink an 8-oz glass of bowel preparation every 10 minutes for a total of 8 glasses. Fifteen (15) minutes later, drink an 8-oz glass of clear liquids every 15 minutes for a total of 2 glasses. You may continue to drink clear liquids up to (three) 3 hours before your exam. 2 02/2019 documented in this encounter [facility] 08-23-2023 Note HNO ID: [id number] Author: MARIANNA YAP APRN.RIGO Service: ? Author Type: Nurse Practitioner Type: Progress Notes Filed: 08/23/2023 18:15 Note Text: CC: Patient presents with: Physical: wants referral for left hand - cyst with decreased mobility x 7 months HPI Jennifer Mcmullen is a 62 year old female who presents today for above. Diabetes: Home blood sugar readings: fasting around 110 daily Hypoglycemia: No She is compliant with medication(s) and is tolerating med(s) without any side effects. Increased thirst: No Urinary frequency: No Nocturia: No Fatigue: No Unintentional weight loss: No Blurred vision: No Numbness, tingling or pain in extremities: No Ulcers or sores on feet: No Last Ophthalmology exam: over two years ago Patient's last HgA1C : Hemoglobin A1C (%) Date Value 05/31/2022 6.3 09/30/2021 6.3 08/21/2020 6.7 04/03/2019 6.4 Hemoglobin A1C (POCT) (%) Date Value 04/02/2021 6.5 GERD- Symptoms include nausea and sour taste in her mouth Symptoms are precipitated with nothing she can think of Alleviated with taking antacids. Denies epigastric abdominal pain, weight loss, dysphagia, black stools, diarrhea, constipation, and bloating. Alcohol, tobacco, significant amounts of caffeine or NSAIDS: No Previous studies include EGD in 2017 indicating hiatal hernia, otherwise normal. Left hand pain: since February. She has two small hard nodules in the palm of the hand that are very tender. She is unable to make a fist due to pain and stiffness in the 2nd through 4th fingers. Review of Systems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 MD Electronically signed By Marcello Benson MD Dictated Date: 02/21/2023 1:08:32 PM Prelim Date: 02/21/2023 1:12:11 PM Sign Date: 02/21/2023 1:12:11 PM Ordering Provider: [facility] 02-21-2023 Note ORIGINAL EXAMINATION: TWO XRAY VIEWS OF THE LEFT HUMERUS 02/21/2023 12:51 pm COMPARISON: None. HISTORY: ORDERING SYSTEM PROVIDED HISTORY: Reason for Exam: pain FINDINGS: There are minor degenerative changes present at the AC joint. There is minimal spurring at the triceps insertion. No fracture, dislocation, or other acute abnormality seen. IMPRESSION: No acute fracture seen. Interpreted by: Sunshine Masters MD Preliminary Report By: Sunshine Masters MD Electronically signed By Sunshine Masters MD Dictated Date: 02/21/2023 12:53:33 PM Prelim Date: 02/21/2023 12:54:24 PM Sign Date: 02/21/2023 12:54:24 PM Ordering Provider: [facility] 02-21-2023 Note ORIGINAL EXAMINATION: TWO XRAY VIEWS OF THE LEFT SHOULDER 02/21/2023 12:49 pm COMPARISON: None. HISTORY: ORDERING SYSTEM PROVIDED HISTORY: Reason for Exam: pain FINDINGS: Minor degenerative changes are present at the AC joint. No fracture, dislocation, or other acute finding seen. IMPRESSION: No acute fracture. Interpreted by: Sunshine Masters MD Preliminary Report By: Sunshine Masters MD Electronically signed By Sunshine Masters MD Dictated Date: 02/21/2023 12:52:57 PM Prelim Date: 02/21/2023 12:53:20 PM Sign Date: 02/21/2023 12:53:20 PM Ordering Provider: [facility] 02-21-2023 Note ORIGINAL EXAMINATION: ONE XRAY VIEW OF THE PELVIS 02/21/2023 12:48 pm COMPARISON: None. HISTORY: ORDERING SYSTEM PROVIDED HISTORY: Reason for Exam: pain; trauma patient FINDINGS: The film is difficult due to patient body habitus. There is no definite pelvic fracture identified. The hips are grossly intact. Degenerative changes are seen at the lower lumbar spine. IMPRESSION: No definite fracture seen. Interpreted by: Sunshine Masters MD Preliminary Report By: Sunshine Masters MD Electronically signed By Sunshine Masters MD Dictated Date: 02/21/2023 12:52:07 PM Prelim Date: 02/21/2023 12:52:43 PM Sign Date: 02/21/2023 12:52:43 PM Ordering Provider: [facility] 02-21-2023 Note ORIGINAL EXAMINATION: ONE XRAY VIEW OF THE CHEST 02/21/2023 12:46 pm COMPARISON: None. HISTORY: ORDERING SYSTEM PROVIDED HISTORY: Reason for Exam: pain; trauma patient FINDINGS: The projection is lordotic. Allowing for this, the heart and pulmonary vessels are unremarkable. No definite infiltrate or pleural fluid seen. No acute osseous abnormality seen. IMPRESSION: No acute finding seen. Interpreted by: Sunshine Masters MD Preliminary Report By: Sunshine Masters MD Electronically signed By Sunshine Masters MD Dictated Date: 02/21/2023 12:51:27 PM Prelim Date: 02/21/2023 12:51:57 PM Sign Date: 02/21/2023 12:51:57 PM Ordering Provider: [facility] 01-26-2023 Miscellaneous Notes Protocol recommends call 911 now. Pt is agreeable to plan, states she will be going to [facility] ER. Care plan reviewed with patient. Patient voices understanding. Pt reports she doesn't have any Aspirin at home to take. Reason for Disposition [1] Chest pain lasts > 5 minutes AND [2] age > 44 Answer Assessment - Initial Assessment Questions 1. LOCATION: It hurts from the sternum to the left side of the chest, all over. 2. RADIATION: The pain does not radiate into the neck, jaw, arms, or back. 3. ONSET: The chest pain began 2 weeks ago, but came and went. Now the pain is 8-9/10 and is constant. 4. PATTERN: The pain came and went at the beginning, but has it been constant since it started getting worse now. 5. DURATION: It is constant. 6. SEVERITY: - MILD (1-3): doesn't interfere with normal activities - MODERATE (4-7): interferes with normal activities or awakens from sleep - SEVERE (8-10): excruciating pain, unable to do any normal activities The pain is a constant sharp 8-9/10. 7. CARDIAC RISK FACTORS: Pt reports a history of diabetes, smoker, and maternal history of heart disease. 8. PULMONARY RISK FACTORS: Pt reports she has asthma. 9. CAUSE: Pt does not know what is causing the chest pain. 10. OTHER SYMPTOMS: Pt denies dizziness, nausea, vomiting, sweating, fever, difficulty breathing, or cough. 11. : Postmenopausal Protocols used: Chest [id number] documented in this encounter [facility] 12-15-2022 Instructions Meredith Jimenez APRN.RIGO - 12/15/2022 10:37 AM EDT Use the prescription cream twice a day to the affected area and also use coconut oil twice a day in between use of the prescription cream documented in this encounter [facility] 12-15-2022 History of Present illness Narrative Resident Care Associate offered: Patient declines. Jennifer Mcmullen is a 62 year old female who presents for problem visit irritation to the lower abd HPI: Patient states that in her lower abdomen/abdominal fold and groin area are very itchy and irritated. She states that this has been going on for several months, she has tried some other powders and creams that have not helped much. She does wear a depends day and night is the area covered by the depends that is irritated. OB History T3 L3 SAB1 IAB0 Ectopic0 Multiple0 Live Births0 Comment: lost during a TRAVIS performed in [place] per pt. [employer] History LMP: Hysterectomy Age at Menarche: Age at First : Age at Menopause: [employer] History Comments: Sexual Activity: Not Currently; No partner data on record Contraception: No contraception data on record PAST MEDICAL HISTORY Diagnosis Date Asthma Chronic low back pain 05/27/2014 Work injury 2006 Depression [facility] Diabetes mellitus (HCC) Disc slipped disc in back Fracture of right ankle Head injury Helicobacter pylori infection 09/12/2016 Hernia, hiatal Hyperglycemia 2010 Insomnia JOSSELIN (obstructive sleep apnea) 02/25/2019 Post-traumatic headache 01/16/2014 Postmenopausal Prediabetes 04/08/2019 PTSD (post-traumatic stress disorder) Tobacco use PAST SURGICAL HISTORY Procedure Laterality Date APPENDECTOMY 2012 Nydia SECTION HX 1980 x 2 CHOLECYSTECTOMY 1989 COLONOSCOPY 01/10/2018 Random bx neg. internal hemorrhoids. lax anal tone. Giovanna in [facility] COLONOSCOPY FLX DX W/COLLJ SPEC WHEN PFRMD 06/12/2014 Colonoscopy out pt [facility] EGD 04/10/2018 Hpylori negative - Giovanna in [facility] ESOPHAGOGASTRODUODENOSCOPY TRANSORAL DIAGNOSTIC 06/12/2014 EGD outpt [facility] HERNIA REPAIR HX 12/01/2011 TOTAL ABDOMINAL HYSTERECT W/WO RMVL TUBE OVARY 1980 fibroid FAMILY HISTORY Problem Relation Age of Onset Heart Mother 70 Diabetes Mother Hypertension Mother Asthma Mother Hypertension Father Diabetes Father Colon Cancer Father in his seventies Asthma Sister Asthma Brother Seizures Brother Coronary Artery Disease Brother [place] Social History Tobacco Use Smoking status: Every Day Packs/day: 1.50 Years: 50.00 Additional pack years: 0.00 Total pack years: 75.00 Types: Cigarettes Smokeless tobacco: Never Tobacco comments: Started as a teenager, can't remember. Down to about 1 pack every 3 days lately Vaping Use Vaping Use: Never used Substance Use Topics Alcohol use: No Drug use: No Current Outpatient Medications Medication Sig fluticasone-vilanterol (BREO ELLIPTA) 200-25 mcg/dose inhaler inhale 1 puff by mouth and INTO THE LUNGS once daily topiramate (TOPAMAX) 50 mg tablet Take 1 tablet by mouth twice daily. albuterol (PROVENTIL) 2.5 mg /3 mL (0.083 %) nebulizer solution Use 3 mL via nebulizer every 4 hours as needed for wheezing/shortness of breath. Lancets lancets Test blood sugar(s) 1 times daily. Dx: Type 2 DM - Controlled E11.9 Insulin: No blood sugar diagnostic (BLOOD GLUCOSE TEST) test strip Test blood sugar(s) 1 times daily. Dx: Type 2 DM - Controlled E11.9 Insulin: No polyethylene glycol 3350 (MIRALAX) 17 gram/dose powder Take 17 g by mouth once daily as needed for constipation. traZODone (DESYREL) 100 mg tablet Take 2 tablets by mouth daily at bedtime. Noble [facility] CNP[facility]. FLUoxetine (PROZAC) 20 mg capsule Take 20 mg by mouth once daily. tiotropium bromide (SPIRIVA RESPIMAT) 2.5 mcg/actuation inhaler Inhale 2 Puffs as instructed once daily. albuterol HFA (PROVENTIL HFA, VENTOLIN HFA) 90 mcg/actuation inhaler Inhale 2 Puffs as instructed every 4 hours as needed for wheezing/shortness of breath. Nebulizer NEBULIZER FOR HOME USE. DX: J45.41. Nebulizer and supplies. Face mask preferred. No current facility-administered medications for this visit. Allergies As of Date: 12/15/2022 Allergen Noted Reaction LATEX 10/10/2013 Itching VOLTAREN [DICLOFENAC SODIUM] 07/31/2015 Other: See Comments Fully Assessed 11/28/2022 REVIEW OF SYSTEMS Expanded ROS: N/A Allergies and current medication updated:Yes EXAM: There were no vitals taken for this visit. GENERAL: pleasant, female in no apparent distress HEENT: Normocephalic, atraumatic, mucus membranes moist, and no lesions CHEST: Normal inspiratory effort ABDOMEN: soft, non-tender, no masses, and discolor skin under abd fold with some slight redness PELVIC: external genitalia normal, normal Bartholin's glands, urethra, [place]'s glands, no vulvar lesions, physiologic discharge present, normal appearing perineal body and perianal region, skin discoloration to the groin area with some slight redness and extremely dry skin NEURO: alert and oriented x3,exam grossly non-focal EXTREMITIES: normal ASSESSMENT/PLAN: 1. Skin yeast infection - ICD9: 112.3, ICD10: B37.2 Lotrisone ordered Pt to also use coconut oil twice a day Follow up as needed Meredith Jimenez APRN.RIGO Medical Decision Making: Problems: Low: Acute, uncomplicated illness or injury Risk: Moderate: Drug management Medical Decision Making Level: 3 - Low documented in this encounter [facility] 12-04-2022 Miscellaneous Notes I will refill with one inhaler to give her time to find another doctor to refill her inhaler. JOJO 08/25/21, not on schedule, pended w/o refills, pt needs appt Pharmacy faxed requesting the following refill. Requested Prescriptions Pending Prescriptions Disp Refills fluticasone-vilanterol (BREO ELLIPTA) 200-25 mcg/dose inhaler 1 Each 0 Sig: inhale 1 puff by mouth and INTO THE LUNGS once daily Patient Phone numbers: [phone] (home) Request is for script(s) to be escript to pharmacy. Danielle Melendez documented in this encounter [facility] 11-28-2022 History of Present illness Narrative CC: Patient presents with: Follow Up Immunizations: Flu vaccination HPI Jennifer Mcmullen is a 62 year old female who presents today for above. She was seen 11/18 for sudden onset acute left hand pain. Sed rate, CRP and uric acid levels normal. X-ray showing arthritis otherwise normal. She was started on prednisone burst with taper. She reports no improvement in pain. There are no new or worsening symptoms. She is taking tylenol as needed which is not helping. States she is unable to tolerate topical medications. Review of Systems See HPI PAST MEDICAL HISTORY Diagnosis Date Asthma Chronic low back pain 05/27/2014 Work injury 2006 Depression [facility] Diabetes mellitus (HCC) Disc slipped disc in back Fracture of right ankle Head injury Helicobacter pylori infection 09/12/2016 Hernia, hiatal Hyperglycemia 2010 Insomnia JOSSELIN (obstructive sleep apnea) 02/25/2019 Post-traumatic headache 01/16/2014 Postmenopausal Prediabetes 04/08/2019 PTSD (post-traumatic stress disorder) Tobacco use PAST SURGICAL HISTORY Procedure Laterality Date APPENDECTOMY 2013 Goodell SECTION HX 1980 x 2 CHOLECYSTECTOMY 1990 COLONOSCOPY 01/10/2018 Random bx neg. internal hemorrhoids. lax anal tone. Giovanna in [facility] COLONOSCOPY FLX DX W/COLLJ SPEC WHEN PFRMD 06/12/2014 Colonoscopy out pt [facility] EGD 04/10/2018 Hpylori negative - Giovanna in [facility] ESOPHAGOGASTRODUODENOSCOPY TRANSORAL DIAGNOSTIC 06/12/2014 EGD outpt [facility] HERNIA REPAIR HX 12/01/2011 TOTAL ABDOMINAL HYSTERECT W/WO RMVL TUBE OVARY 1979 fibroid ALLERGIES Latex and Voltaren [Diclofenac Sodium] MEDICATIONS topiramate (TOPAMAX) 50 mg tablet Take 1 tablet by mouth twice daily. albuterol (PROVENTIL) 2.5 mg /3 mL (0.083 %) nebulizer solution Use 3 mL via nebulizer every 4 hours as needed for wheezing/shortness of breath. Lancets lancets Test blood sugar(s) 1 times daily. Dx: Type 2 DM - Controlled E11.9 Insulin: No blood sugar diagnostic (BLOOD GLUCOSE TEST) test strip Test blood sugar(s) 1 times daily. Dx: Type 2 DM - Controlled E11.9 Insulin: No polyethylene glycol 3350 (MIRALAX) 17 gram/dose powder Take 17 g by mouth once daily as needed for constipation. BREO ELLIPTA 200-25 mcg/dose inhaler inhale 1 puff by mouth and INTO THE LUNGS once daily traZODone (DESYREL) 100 mg tablet Take 2 tablets by mouth daily at bedtime. Noble Gilbert, [facility]. FLUoxetine (PROZAC) 20 mg capsule Take 20 mg by mouth once daily. tiotropium bromide (SPIRIVA RESPIMAT) 2.5 mcg/actuation inhaler Inhale 2 Puffs as instructed once daily. albuterol HFA (PROVENTIL HFA, VENTOLIN HFA) 90 mcg/actuation inhaler Inhale 2 Puffs as instructed every 4 hours as needed for wheezing/shortness of breath. Nebulizer NEBULIZER FOR HOME USE. DX: J45.41. Nebulizer and supplies. Face mask preferred. FAMILY HISTORY Problem Relation Age of Onset Heart Mother 70 Diabetes Mother Hypertension Mother Asthma Mother Hypertension Father Diabetes Father Colon Cancer Father in his seventies Asthma Sister Asthma Brother Seizures Brother Coronary Artery Disease Brother [place] Social History Tobacco Use Smoking status: Every Day Packs/day: 1.50 Years: 50.00 Additional pack years: 0.00 Total pack years: 75.00 Types: Cigarettes Smokeless tobacco: Never Tobacco comments: Started as a teenager, can't remember. Down to about 1 pack every 3 days lately Vaping Use Vaping Use: Never used Substance Use Topics Alcohol use: No Drug use: No BP 105/56 (BP Site: Right Arm, BP Position: Sitting, BP Cuff Size: Large Adult) Pulse 76 Temp 36.4 C (97.5 F) (Temporal) Wt 95.7 kg (211 lb) BMI 38.59 kg/m Physical Exam Constitutional: Appearance: She is not ill-appearing. Musculoskeletal: Left hand: Swelling and tenderness present. No deformity. Normal capillary refill. Normal pulse. Comments: Comfort hand/wrist splint applied. Patient reports mild improvement in pain with application. Neurological: Mental Status: She is alert. DATA REVIEWED: Most recent labs and imaging results. 11/18/22 EXAMINATION: XR HAND 3V PA/LAT/OBL LT HISTORY: Left hand pain with limited flexion x 2-3 weeks TECHNIQUE: XR HAND 3V PA/LAT/OBL LT Laterality: LEFT Number of different views (projections): 3 M: XB_1 COMPARISON: RESULT: Scattered mild interphalangeal degenerative changes in the fingers and thumb and minimal first and second MCP degenerative change. Mild soft tissue swelling of the index finger and ring finger to a lesser extent. Carpal rows appear maintained. No acute fracture or dislocation. There are no bony erosions. Component Latest Ref Rng & Units 11/18/2022 WBC 3.70 - 11.00 k/uL 10.10 RBC 3.90 - 5.20 m/uL 4.99 Hemoglobin 11.5 - 15.5 g/dL 15.0 Hematocrit 36.0 - 46.0 % 44.9 MCV 80.0 - 100.0 fL 90.0 MCH 26.0 - 34.0 pg 30.1 MCHC 30.5 - 36.0 g/dL 33.4 RDW-CV 11.5 - 15.0 % 13.0 Platelet Count 150 - 400 k/uL 214 MPV 9.0 - 12.7 fL 11.3 Absolute nRBC <0.01 k/uL <0.01 WSR 0 - 20 mm/hr 17 CRP <0.9 mg/dL 0.5 Uric Acid 2.5 - 6.6 mg/dL 5.3 ASSESSMENT/PLAN: 1. Left hand pain - ICD9: 729.5, ICD10: M79.642 (primary diagnosis) Suspect osteoarthritis. Labs and imaging normal. Instructed on use of hand/wrist splint Okay to continue with Tylenol as needed Follow-up if pain persists or worsening, will need to see orthopedics 2. Need for influenza vaccination - ICD9: V04.81, ICD10: Z23 - INFLUENZA VACCINE, AGE 6 MO - 64 YR, QUADRIVALENT (AFLURIA, FLULAVAL, FLUZONE) Prescription instructions reviewed with patient as applicable. Potential red flag symptoms discussed with the patient. Reviewed appropriate action plan to take if red flag symptoms occur. Patient agreeable to treatment plan. Marianna Easley APRN.CNP documented in this encounter [facility] 11-28-2022 Instructions Marianna Easley APRN.CNP - 11/28/2022 11:28 AM EDT Artrosis De [place] - Osteoarthritis La artritis (que literalmente significa articulaci n inflamada ) puede afectar cualquier articulaci n del cuerpo, incluidas las articulaciones entre los 29 huesos de la mu eca, la mano y los dedos. La artritis de la mano puede doler e impedirle hacer lo que desea o necesita. Las formas m s comunes de artritis en la mano son la artrosis, la artritis postraum neymar (despu s de kb lesi n) y la artritis reumatoide. La artrosis es kb enfermedad articular degenerativa en la que el cart rogelio liso que cubre las superficies seas de la articulaci n se lesionan o desgastan con el tiempo. [place] Kb articulaci n normal est compuesta de dos superficies seas cubiertas de cart rogelio liso que calzan chad entre s de modo marylou que se deslizan cuando los huesos se mueven. Si las superficies lisas se desgastan, ya no calzan y se desarrolla kb artrosis. Entras las afecciones que tambi n pueden causar artrosis en la mano se pueden citar lesiones, infecciones, gota, psoriasis, y otras Signos y s ntomas Los xena sitios m s comunes donde aparece la artrosis en la mano son (v ase la Figura 1): En la base del pulgar, donde se unen el pulgar y la mu eca (la articulaci n trapeciometacarpiana o basal) En la articulaci n m s cercana a la punta del dedo (la articulaci n distal interfal ngica o DIF [siglas en ingl s de distal interphalangeal]) En la articulaci n media de un dedo (la articulaci n proximal interfal ngica o PIF [siglas en ingl s de proximal interphalangeal]) Todas las formas de artrosis de la mano pueden causar rigidez, inflamaci n, dolor y deformidad. A veces, la artrosis causa n dulos seos en la articulaci n media de los dedos (n dulos de Norm) o en la articulaci n de la punta de los dedos (n dulos de [place]) (v ase la Figura 2). La artrosis en la articulaci n basal puede causar inflamaci n, un bulto y un dolor profundo y punzante en la base del pulgar. La debilidad al agarrar y pinzar pueden hacer que sea dif cil abrir un frasco o armani vuelta kb llave. Diagn stico Arredondo m dico le ylnda preguntas sobre las amos y otras articulaciones. Explique c mo afectan taqueria s ntomas lo que usted hace. Arredondo m dico entonces revisar el aspecto y el funcionamiento de las amos. Las radiograf as de las articulaciones con artrosis pueden revelar p rdida de espacio articular normal, espolones seos u otros cambios. Tratamiento Los objetivos del tratamiento son aliviar el dolor y restituir el funcionamiento. Un reposo breve, ya sea cambiando las actividades o usando un entablillado, puede ayudar. El uso de manguitos suaves y ajustados pueden ayudar a sostener kb articulaci n cuando los entablillados r gidos son demasiado restrictivos. El calor (por ejemplo ba os de parafina y compresas tibias) pueden aliviar las articulaciones y ayudar a mantener arredondo capacidad de movimiento. Es importante mantener tanto movimiento y funcionamiento en el dedo wilver sea posible. Los terapeutas de la mano pueden ense arle ejercicios de protecci n articular y modificaci n de actividad para ayudar a proteger las articulaciones. Los medicamentos antiinflamatorios o kb inyecci n de esteroides en la articulaci n pueden reducir el dolor, willis ninguna de estas opciones melba la artritis. La cirug a se considera cuando las opciones no quir rgicas antemencionadas no dieron resultado. En la mayor a de los casos debe informar a arredondo m dico cuando est listo para la cirug a. El objetivo es restituir tanto funcionamiento wilver sea posible y minimizar arredondo dolor. Un tipo de cirug a es la fusi n articular. Se extirpa el cart rogelio desgastado y se fusionan los huesos de cada lado de la articulaci n, lo que significa que la articulaci n no se house mover , willis tampoco doler . Otra opci n es la reconstrucci n articular, donde la superficie articular spera se extirpa y se reemplaza por arredondo propio tejido blando o por un implante. El tipo de cirug a depende de las articulaciones afectadas, arredondo anatom a y taqueria actividades. El cirujano especialista en la mano puede ayudarle a decidir qu tipo de cirug a es el mejor para usted. documented in this encounter [facility] 11-25-2022 Miscellaneous Notes Scheduled. Schedule follow-up for next week Marianna Easley APRN.CNP Phoned patient and went over results, notes from Marianna Easley PRODUCTION CONSULTANT with understanding. Patient said no improvement, her hands hurt a lot all the time. ----- Message from Marianna Easley APRN.CNP sent at 11/23/2022 2:12 PM EDT ----- Please let the patient know her labs were normal. 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 Has there been any improvement in pain? Marianna Easley APRN.CNP documented in this encounter [facility] 11-18-2022 History of Present illness Narrative Radiology Service Progress Note PATIENT NAME: Jennifer Mcmullen DATE OF SERVICE: November 18, 2022 TIME: 1:59 PM PATIENT IDENTITY VERIFICATION COMPLETED USING TWO (2) IDENTIFIERS: Name and Date of confirmed by patient verbally. FALL SCREENING: Has the patient had 2 falls in the last year or 1 fall with injury or currently using an Ambulatory Assistive Device (Walker, Cane, Wheelchair, Crutches, etc.)? No PATIENT GENDER DATA: Female. status: : No status: NO. PATIENT RELEVANT IMPLANT DATA REVIEWED: Yes RADIOLOGY DEPARTMENT: General X-ray: Exam(s) Completed: Upper Extremity X-Ray(s): Hand, left PERIPHERAL IV DATA: Not applicable SIGNED BY: RT Nadeem(R) November 18, 2022 1:59 PM documented in this encounter [facility] 11-18-2022 Instructions Marianna Easley APRN.CNP - 11/18/2022 1:37 PM EDT For hand pain: start prednisone, follow prescription instructions. This may cause your blood sugars to be higher than usual. Please call the office if your blood sugar is over 300. documented in this encounter [facility] 11-18-2022 History of Present illness Narrative CC: Patient presents with: left hand pain x 2 weeks HPI Jennifer Mcmullen is a 62 year old female who presents today for above. Patient reports acute onset left hand pain a few weeks ago. Pain is located mostly in the fingers of her hand but radiates down to her wrist. Unable to make a fist because of the pain. Denies swelling, redness, increased warmth, numbness, tingling, injury, history of gout, morning stiffness that improves with activity. She is right handed. She has not taken anything for the pain. Never had hand pain like this before. Denies any other joint pains except for chronic low back pain. REVIEW OF SYSTEMS See HPI PAST MEDICAL HISTORY Diagnosis Date Asthma Chronic low back pain 05/27/2014 Work injury 2006 Depression [facility] Diabetes mellitus (HCC) Disc slipped disc in back Fracture of right ankle Head injury Helicobacter pylori infection 09/12/2016 Hernia, hiatal Hyperglycemia 2010 Insomnia JOSSELIN (obstructive sleep apnea) 02/25/2019 Post-traumatic headache 01/16/2014 Postmenopausal Prediabetes 04/08/2019 PTSD (post-traumatic stress disorder) Tobacco use PAST SURGICAL HISTORY Procedure Laterality Date APPENDECTOMY 2012 [facility] SECTION HX 1979 x 2 CHOLECYSTECTOMY 1989 COLONOSCOPY 01/10/2018 Random bx neg. internal hemorrhoids. lax anal tone. Giovanna in [facility] COLONOSCOPY FLX DX W/COLLJ SPEC WHEN PFRMD 06/12/2014 Colonoscopy out pt [facility] EGD 04/10/2018 Hpylori negative - Giovanna in [facility] ESOPHAGOGASTRODUODENOSCOPY TRANSORAL DIAGNOSTIC 06/12/2014 EGD outpt [facility] HERNIA REPAIR HX 12/01/2011 TOTAL ABDOMINAL HYSTERECT W/WO RMVL TUBE OVARY 1979 fibroid ALLERGIES Latex and Voltaren [Diclofenac Sodium] MEDICATIONS topiramate (TOPAMAX) 50 mg tablet Take 1 tablet by mouth twice daily. albuterol (PROVENTIL) 2.5 mg /3 mL (0.083 %) nebulizer solution Use 3 mL via nebulizer every 4 hours as needed for wheezing/shortness of breath. Lancets lancets Test blood sugar(s) 1 times daily. Dx: Type 2 DM - Controlled E11.9 Insulin: No blood sugar diagnostic (BLOOD GLUCOSE TEST) test strip Test blood sugar(s) 1 times daily. Dx: Type 2 DM - Controlled E11.9 Insulin: No polyethylene glycol 3350 (MIRALAX) 17 gram/dose powder Take 17 g by mouth once daily as needed for constipation. meloxicam (MOBIC) 15 mg tablet Take 1 tablet by mouth once daily. With food. BREO ELLIPTA 200-25 mcg/dose inhaler inhale 1 puff by mouth and INTO THE LUNGS once daily traZODone (DESYREL) 100 mg tablet Take 2 tablets by mouth daily at bedtime. [facility], [facility]. FLUoxetine (PROZAC) 20 mg capsule Take 20 mg by mouth once daily. tiotropium bromide (SPIRIVA RESPIMAT) 2.5 mcg/actuation inhaler Inhale 2 Puffs as instructed once daily. albuterol HFA (PROVENTIL HFA, VENTOLIN HFA) 90 mcg/actuation inhaler Inhale 2 Puffs as instructed every 4 hours as needed for wheezing/shortness of breath. Nebulizer NEBULIZER FOR HOME USE. DX: J45.41. Nebulizer and supplies. Face mask preferred. FAMILY HISTORY Problem Relation Age of Onset Heart Mother 70 Diabetes Mother Hypertension Mother Asthma Mother Hypertension Father Diabetes Father Colon Cancer Father in his seventies Asthma Sister Asthma Brother Seizures Brother Coronary Artery Disease Brother [place] Social History Tobacco Use Smoking status: Every Day Packs/day: 1.50 Years: 50.00 Additional pack years: 0.00 Total pack years: 75.00 Types: Cigarettes Smokeless tobacco: Never Tobacco comments: Started as a teenager, can't remember. Down to about 1 pack every 3 days lately Vaping Use Vaping Use: Never used Substance Use Topics Alcohol use: No Drug use: No BP 110/64 Pulse 81 Resp 16 Wt 97.1 kg (214 lb) SpO2 97% BMI 39.14 kg/m Physical Exam Constitutional: General: She is not in acute distress. Appearance: She is not ill-appearing. Musculoskeletal: Left wrist: No swelling, deformity or tenderness. Normal range of motion. Left hand: No swelling or deformity. Normal sensation. Normal capillary refill. Normal pulse. Comments: Left hand- fingers tender with palpation and ROM. No locking or catching with ROM. Patient is unable to make a fist due to pain. No tenderness with palpation of thenar eminence. No erythema. Neurological: Mental Status: She is alert. ASSESSMENT/PLAN: 1. Left hand pain - ICD9: 729.5, ICD10: M79.642 Acute onset left hand pain. Differentials include osteoarthritis, gout, infection, tendonitis Evaluate further with: - XR HAND GENERAL 3V PA/LAT/OBL LEFT - SED RATE WESTERGREN - C-REACTIVE PROTEIN (CRP) - CBC - URIC ACID BLOOD Patient is unable to take NSAID's due to GI side effects. Start treatment with prednisone burst with taper. She is diabetic, cautioned about potential for hyperglycemia. Check blood sugars 1-2 times a day and call office for readings over 300 Prescription instructions reviewed with patient as applicable. Potential red flag symptoms discussed with the patient. Reviewed appropriate action plan to take if red flag symptoms occur. Patient agreeable to treatment plan. Marianna Easley APRN.CNP documented in this encounter [facility] 07-27-2022 Miscellaneous Notes Pt called and is notified of providers results and instructions. Pt voices understanding. Fabienne Babulski, RN Please let the patient know I reviewed her lab results from 05/31. HgbA1c 6.3, diabetes well controlled. Kidney function was stable. Potassium slightly elevated, recheck at her earliest convenience Marianna Easley APRN.[employer] documented in this encounter [facility] 06-13-2022 Miscellaneous Notes Patient notified of below results/recommendation, verbalized understanding. Sanam Aragon LPN ----- Message from Leonid Rice MD sent at 06/12/2022 12:11 PM EDT ----- Shoulder xray mild arthritis of acromioclavicular joint. Continue meloxicam. documented in this encounter [facility] 06-06-2022 Miscellaneous Notes June 07, 2022 PID: [id number] Jennifer Mcmullen [address] [place] [address] Dear Ms. Yajaira Mcmullen, We are pleased to inform you that the results of your recent breast imaging exam on 06/03/2022 are normal. Early detection of cancer is very important. We also understand recommendations regarding breast cancer screening are controversial. Please discuss with your primary care provider which strategy is best for you and whether a mammogram is right for you. Your imaging studies and report will be kept on file at [facility] as part of your permanent medical record and are available for your continuing care. Thank you for allowing us to help in meeting your health care needs. Sincerely, Dr. Mitchell Interpreting Radiologist [facility] (Normal over 40) documented in this encounter [facility] 06-03-2022 History of Present illness Narrative Radiology Service Progress Note PATIENT NAME: Jennifer Mcmullen DATE OF SERVICE: June 03, 2022 TIME: 12:33 PM PATIENT IDENTITY VERIFICATION COMPLETED USING TWO (2) IDENTIFIERS: Name and Date of confirmed by patient verbally. FALL SCREENING: Has the patient had 2 falls in the last year or 1 fall with injury or currently using an Ambulatory Assistive Device (Walker, Cane, Wheelchair, Crutches, etc.)? No PATIENT GENDER DATA: Female. status: : No status: NO. PATIENT RELEVANT IMPLANT DATA REVIEWED: Yes RADIOLOGY DEPARTMENT: Mammography PERIPHERAL IV DATA: Not applicable SIGNED BY: RT Sandor(R) June 03, 2022 12:33 PM documented in this encounter [facility] 05-31-2022 Instructions Leonid Rice MD - 05/31/2022 10:43 AM EDT BLOOD WORK TODAY. documented in this encounter [facility] 05-31-2022 History of Present illness Narrative This note was created using CGTraderter. Subjective Jennifer Mcmullen is a 61 year old female. She was doing well and had only concern about her left shoulder. She had left shoulder injury a few years ago, when she fell on her left arm. She was sent for physical therapy back then (07/2020) with worsening symptoms so she stopped the therapy and shoulder pain resolved. 1 month ago, her left shoulder started acting up, specially when driving and lifting her cigarrette out the window. No medications were taken for shoulder pain. Review of Systems Constitutional: Negative. Respiratory: Negative. Cardiovascular: Negative. Gastrointestinal: Negative. Genitourinary: Negative. Neurological: Negative. ACTIVE PROBLEM LIST Depression Tobacco Use Family History of Colon Cancer Epigastric Abdominal Pain Anxiety Ddd (Degenerative Disc Disease), Lumbar Chronic Low Back Pain Asthma Post-Traumatic Headache Josselin (Obstructive Sleep Apnea) Obesity, Class III, BMI >= 40 Type 2 Diabetes Mellitus Without Complication, Without Long-Term Current Use of Insulin ([facility]) Social History Tobacco Use Smoking status: Every Day Packs/day: 1.50 Years: 50.00 Pack years: 75.00 Types: Cigarettes Smokeless tobacco: Never Tobacco comments: Started as a teenager, can't remember. Down to about 1 pack every 3 days lately Vaping Use Vaping Use: Never used Substance Use Topics Alcohol use: No Drug use: No Current Outpatient Medications Medication Sig topiramate (TOPAMAX) 50 mg tablet Take 1 tablet by mouth twice daily. albuterol (PROVENTIL) 2.5 mg /3 mL (0.083 %) nebulizer solution Use 3 mL via nebulizer every 4 hours as needed for wheezing/shortness of breath. Lancets lancets Test blood sugar(s) 1 times daily. Dx: Type 2 DM - Controlled E11.9 Insulin: No blood sugar diagnostic (BLOOD GLUCOSE TEST) test strip Test blood sugar(s) 1 times daily. Dx: Type 2 DM - Controlled E11.9 Insulin: No polyethylene glycol 3350 (MIRALAX) 17 gram/dose powder Take once daily, mix in 4 to 8 ounces of water BREO ELLIPTA 200-25 mcg/dose inhaler inhale 1 puff by mouth and INTO THE LUNGS once daily traZODone (DESYREL) 100 mg tablet Take 2 tablets by mouth daily at bedtime. Noble Gilbert, [facility], [facility]. FLUoxetine (PROZAC) 20 mg capsule Take 20 mg by mouth once daily. tiotropium bromide (SPIRIVA RESPIMAT) 2.5 mcg/actuation inhaler Inhale 2 Puffs as instructed once daily. albuterol HFA (PROVENTIL HFA, VENTOLIN HFA) 90 mcg/actuation inhaler Inhale 2 Puffs as instructed every 4 hours as needed for wheezing/shortness of breath. Nebulizer NEBULIZER FOR HOME USE. DX: J45.41. Nebulizer and supplies. Face mask preferred. No current facility-administered medications for this visit. Objective BP 120/80 (BP Site: Left Arm, BP Position: Sitting, BP Cuff Size: Large Adult) Pulse 92 Temp 36.9 C (98.4 F) (Temporal) Resp 18 Wt 97.1 kg (214 lb) BMI 39.14 kg/m Physical Exam Constitutional: General: She is not in acute distress. Appearance: She is not ill-appearing. Cardiovascular: Rate and Rhythm: Normal rate and regular rhythm. Heart sounds: No murmur heard. No gallop. Pulmonary: Breath sounds: Normal breath sounds. Musculoskeletal: Right shoulder: Normal. Left shoulder: Tenderness and crepitus present. No swelling, deformity or bony tenderness. Normal range of motion. Normal strength. Right lower leg: No edema. Left lower leg: No edema. Neurological: Mental Status: She is alert. Assessment and Plan 1. Chronic left shoulder pain - ICD9: 719.41, 338.29, ICD10: M25.512, G89.29 (primary diagnosis) Rotator cuff syndrome. - XR SHOULDER GENERAL 3V OR MORE AP/TRUE AP/OTHER LEFT - MELOXICAM 15 MG TABLET - If not better, refer to orthopedics. 2. Asthma with COPD (HCC) - ICD9: 493.20, ICD10: J44.9 Stable. - ALBUTEROL SULFATE 2.5 MG/3 ML (0.083 %) SOLUTION FOR NEBULIZATION 3. Type 2 diabetes mellitus without complication, without long-term current use of insulin (HCC) - ICD9: 250.00, ICD10: E11.9 - Controlled - Continue current medications - LANCETS - BLOOD GLUCOSE TEST STRIPS - Do non fasting labs today. 4. Encounter for screening mammogram for malignant neoplasm of breast - ICD9: V76.12, ICD10: Z12.31 - CALVIN SCREENING 5. Constipation, unspecified constipation type - ICD9: 564.00, ICD10: K59.00 Controlled, refilled. - POLYETHYLENE GLYCOL 3350 17 GRAM/DOSE ORAL POWDER Leonid Rice MD documented in this encounter [facility] 05-25-2022 Miscellaneous Notes Patient has been identified by name and date of : Yes, Patient phones for refill(s): Requested Prescriptions Pending Prescriptions Disp Refills topiramate (TOPAMAX) 50 mg tablet 60 tablet 5 Sig: Take 1 tablet by mouth twice daily. Date of last office visit in primary care: 02/11/2022 8 month follow-up: 05/31/2022 Last 2 Encounter Wt Readings: Date: Wt: 02/16/2022 100.2 kg (221 lb) 02/15/2022 100.2 kg (221 lb) Previous labs/tests for medication: Not applicable Please advise. Thank you. Sanam Aragon LPN Patient has been identified by name and date of : Yes Requested Prescriptions Pending Prescriptions Disp Refills topiramate (TOPAMAX) 50 mg tablet 60 tablet 5 Sig: Take 1 tablet by mouth twice daily. RX INSTRUCTIONS: Patient aware RX will be sent to pharmacy. No need to notify patient. Christina Jeong Pss documented in this encounter [facility] 04-07-2022 Miscellaneous Notes All faxed to number on the form. Signed. Hever Cabral's note re: JOSSELIN. Fax rec'd for CPAP nasal mask and CPAP heated tubing. Sugar with [employer] called and reports she is going to fax a form for provider to sign and fax back for Pts Cpap and supplies. Faxing last OV note reporting Pt is using a Cpap to [phone]. documented in this encounter [facility] 04-01-2022 Miscellaneous Notes Spoke with patient's daughter listed as emergency contact lens curve grinder) regarding LDCT category 1 results with follow-up recommended in one year for annual LCS. She comprehend and agreeable with plan. Arcelia Garcia APRN.[facility] documented in this encounter [facility] 03-31-2022 Miscellaneous Notes Radiology Service Progress Note PATIENT NAME: Jennifer Mcmullen DATE OF SERVICE: March 31, 2022 TIME: 1:59 PM PATIENT IDENTITY VERIFICATION COMPLETED USING TWO (2) IDENTIFIERS: Name and Date of confirmed by patient verbally and Name and Date of confirmed by identification band. FALL SCREENING: Has the patient had 2 falls in the last year or 1 fall with injury or currently using an Ambulatory Assistive Device (Walker, Cane, Wheelchair, Crutches, etc.)? No PATIENT GENDER DATA: Female. status: : No status: NO. PATIENT RELEVANT IMPLANT DATA REVIEWED: Yes RADIOLOGY DEPARTMENT: CT; Exam(s) Completed: Chest PERIPHERAL IV DATA: Not applicable SIGNED BY: Leonor Santiago March 31, 2022 1:59 PM documented in this encounter [facility] 02-16-2022 Instructions Lakeisha Silva LPN - 02/16/2022 9:11 AM EST Instructions After I & D You are instructed to remove the packing in 1 day. If the dressing becomes soaked or had significant drainage, the dressing should be changed. If there is minor bleeding from this skin edge, you should hold pressure on the incision. If there is continued bleeding, you should contact our office immediately. Wash the wound with gentle soap and water. Keep bandage on wound until completely healed. You may shower, us a soap that does not have scent to it, scent is alcohol and it will burn. The wound should not be immersed in a pool, bathtub, or even hot tub. You may take Tylenol or Ibuprofen as needed for pain. If the wound shows signs of redness, inflammation, or purulent drainage, you should contact our office immediately. Call our office with any questions or concerns at and ask for General Surgery department. documented in this encounter [facility] 02-16-2022 History of Present illness Narrative UNIVERSAL PROTOCOL / SAFETY CHECKLIST Procedure to be Performed: Incision and drainage of abscess on mid abdomen Sign In: A Moment of CARE was completed. Personnel directly involved with the procedure wore the appropriate PPE (Personal Protective Equipment). No special equipment needed. Patient/Surrogate Stated/Verified: PATIENT VERIFIED(optional for EMERGENT procedures): Patient name, Date of , Relevant allergies, and The intended procedure Time Out Communication: Intended patient and procedure match the source documents. Consent documented and matches the intended procedure. No relevant labs, photos, and/or imaging studies were applicable for review. Correct side/site marked and visible. Medications required for procedure verified. No fire risk assessment and interventions applicable. No implant(s) inserted. Sign Out: SIGN OUT (optional for EMERGENT procedures): All specimen containers correctly labeled. No instruments, equipment or retained foreign bodies applicable. Post-procedure follow-up management communicated and Plan of Care Visit completed when applicable. Lakeisha Silva LPN HISTORY AND PHYSICAL Jennifer Mcmullen 1960 REFERRING PHYSICIAN: Leonid Rice MD CHIEF COMPLAINT: abscess/possible cyst HPI: Jennifer is a 61 year old female with a complaint of a painful reddened area on her lower abdomen x a few days. Denies noticing any previous nodule in this area. Denies fever, chills or drainage from the site. she denies a history of diabetes. The patient was seen by primary care and was referred for surgical evaluation. SIGNIFICANT MEDICAL PROBLEMS: PAST MEDICAL HISTORY Diagnosis Date Asthma Chronic low back pain 05/27/2014 Work injury 2006 Depression [facility] Diabetes mellitus (HCC) Disc slipped disc in back Fracture of right ankle Head injury Helicobacter pylori infection 09/12/2016 Hernia, hiatal Hyperglycemia 2010 Insomnia JOSSELIN (obstructive sleep apnea) 02/25/2019 Post-traumatic headache 01/16/2014 Postmenopausal Prediabetes 04/08/2019 PTSD (post-traumatic stress disorder) Tobacco use OPERATIONS: PAST SURGICAL HISTORY Procedure Laterality Date APPENDECTOMY 2012 [facility] SECTION HX 1980 x 2 CHOLECYSTECTOMY 1989 COLONOSCOPY 01/10/2018 Random bx neg. internal hemorrhoids. lax anal tone. Giovanna in [facility] COLONOSCOPY FLX DX W/COLLJ SPEC WHEN PFRMD 06/12/2014 Colonoscopy out pt [facility] EGD 04/10/2018 Hpylori negative - Giovanna in [facility] ESOPHAGOGASTRODUODENOSCOPY TRANSORAL DIAGNOSTIC 06/12/2014 EGD outpt [facility] HERNIA REPAIR HX 12/01/2011 TOTAL ABDOMINAL HYSTERECT W/WO RMVL TUBE OVARY 1980 fibroid CURRENT MEDICATIONS: Current Outpatient Medications Medication Sig Dispense Refill albuterol (PROVENTIL) 2.5 mg /3 mL (0.083 %) nebulizer solution Use 3 mL via nebulizer every 4 hours as needed for wheezing/shortness of breath. 3000 mL 5 Lancets lancets Test blood sugar(s) 1 times daily. Dx: Type 2 DM - Controlled E11.9 Insulin: No 100 Each 11 blood sugar diagnostic (BLOOD GLUCOSE TEST) test strip Test blood sugar(s) 1 times daily. Dx: Type 2 DM - Controlled E11.9 Insulin: No 50 Strip 11 polyethylene glycol 3350 (MIRALAX) 17 gram/dose powder Take once daily, mix in 4 to 8 ounces of water 235 g 2 BREO ELLIPTA 200-25 mcg/dose inhaler inhale 1 puff by mouth and INTO THE LUNGS once daily 1 Each 11 topiramate (TOPAMAX) 50 mg tablet Take 1 tablet by mouth twice daily. 60 tablet 5 traZODone (DESYREL) 100 mg tablet Take 2 tablets by mouth daily at bedtime. [facility], [facility]. FLUoxetine (PROZAC) 20 mg capsule Take 20 mg by mouth once daily. tiotropium bromide (SPIRIVA RESPIMAT) 2.5 mcg/actuation inhaler Inhale 2 Puffs as instructed once daily. 1 Each 5 albuterol HFA (PROVENTIL HFA, VENTOLIN HFA) 90 mcg/actuation inhaler Inhale 2 Puffs as instructed every 4 hours as needed for wheezing/shortness of breath. 1 Each 5 Nebulizer NEBULIZER FOR HOME USE. DX: J45.41. Nebulizer and supplies. Face mask preferred. 1 Each 0 No current facility-administered medications for this visit. ALLERGIES: Latex and Voltaren [Diclofenac Sodium] PERSONAL HISTORY: Social History Tobacco Use Smoking status: Every Day Packs/day: 1.50 Years: 50.00 Pack years: 75.00 Types: Cigarettes Smokeless tobacco: Never Tobacco comments: Started as a teenager, can't remember. Down to about 1 pack every 3 days lately Vaping Use Vaping Use: Never used Substance Use Topics Alcohol use: No Drug use: No FAMILY HISTORY: FAMILY HISTORY Problem Relation Age of Onset Heart Mother 70 Diabetes Mother Hypertension Mother Asthma Mother Hypertension Father Diabetes Father Colon Cancer Father in his seventies Asthma Sister Asthma Brother Seizures Brother Coronary Artery Disease Brother [place] REVIEW OF SYMPTOMS: The review of systems data was entered by the nurse and reviewed by dc Nursing Notes: Va Padilla LPN 02/16/2022 8:06 AM Signed REVIEW OF SYSTEMS: General: The patient notes fatigue, denies weight loss, denies weight gain, denies feeling hot, and denies feelings of cold. Eyes: The patient denies glaucoma, notes eye injury/surgery, does not wear glasses or contacts. Ear/Nose/Throat: The patient notes allergies, denies hayfever, denies ear infections, and denies bloody noses. Cardiovascular: The patient denies chest pain, denies heart disease, denies high blood pressure,denies cardiac stent, denies prior heart attack, denies irregular heart beat, denies high cholesterol, denies poor circulation, denies heart failure, other cardiac issues, denies claudication, denies cold feet, denies peripheral arterial stent. Respiratory: The patient denies tuberculosis, denies pneumonia, denies frequent cough, denies pulmonary embolism, notes shortness of breath, and denies coughing up blood. Gastrointestinal: The patient denies difficulty swallowing, denies acid reflux, denies ulcers, denies vomiting, denies jaundice/hepatitis, denies gallbladder problems, denies black or tarry stools, denies hemorrhoids, denies bleeding from rectum, denies diverticulitis, denies constipation, denies diarrhea, denies loss of stool control, and notes hernias. Kidney/Bladder: The patient denies kidney stones, denies urine infections, and denies bloody urine. Skin: The patient denies a history of skin cancer, denies bleeding/changing moles, and denies a history of skin rash. Neurologic: The patient denies a history of epilepsy/convulsions, denies headaches, denies head/spinal injuries, and denies stroke/TIA. Psychiatric: The patient denies psychiatric medications, notes depression, and denies voices, denies substance abuse. Endocrine: The patient denies thyroid disorders, denies diabetes, and denies hormonal problems. Hematologic: The patient denies a history of bruising, denies bleeding, and denies anemia, denies blood clots. Infections: The patient denies a history of measles and mumps, denies rheumatic fever, and denies sexually transmitted diseases. Musculoskeletal: The patient denies back pain/injury, notes back problems, denies sciatica, denies knee/foot trouble, notes arthritis, or denies gout. When was patient's last Mammogram screening? 04/2021 Last Colonoscopy: 2014 Va Padilla LPN I have confirmed and edited as necessary, the PFSH and ROS obtained by others. Fabienne Howard PA-C PHYSICAL EXAMINATION: General: The patient is 61 year old female, well nourished, well hydrated in no acute distress. The patient is oriented to time, place, and person. VITALS: Blood pressure 108/82, pulse 113, temperature 36.4 C (97.6 F), height 157.5 cm (5' 2), weight 100.2 kg (221 lb), SpO2 95 %. Body mass index is 40.42 kg/m . HEENT: exam deferred Extremities: no clubbing, cyanosis or edema. No adenopathy. Other: lower abdomen 1.5 cm area of fluctuance with overlying erythema and tenderness The skin overlying the point of maximal fluctance is viable. LABORATORY VALUES: As Noted RADIOLOGIC STUDIES: As Noted PROCEDURE: INCISION AND DRAINAGE OF abdominal skin ABSCESS After consent was obtained and the site, person, and procedure verified, the patient`s skin was prepped and draped in the usual fashion. A combination of Lidocaine and Marcaine was injected into the skin. A linear incision was made over the point of maximal fluctuance. A small amount of purulent material was drained. The abscess was then unroofed. The cavity was packed with plain gauze. The patient tolerated the procedure well. Assessment IMPRESSION: STATUS POST INCISION AND DRAINAGE OF abdominal skin ABSCESS PLAN: Jennifer is instructed to remove packing tomorrow and cover with bandaid. If the dressing becomes soaked or had significant drainage, the dressing should be changed. If there is minor bleeding from this skin edge, the patient should hold pressure on the incision. If there is continued bleeding, the patient should contact our office immediately. The patient should wash the wound with gentle soap and water. she may shower. The wound should not be immersed in a pool, bathtub, or even hot tub. Diagnoses: (L02.211) Abscess of skin of abdomen (primary encounter diagnosis) Return to Clinic: The patient is instructed to follow-up with me as needed. The patient verbalized understanding of all above and agreed with the plan Fabienne Howard PA-C documented in this encounter [facility] 02-16-2022 Nurse Note REVIEW OF SYSTEMS: General: The patient notes fatigue, denies weight loss, denies weight gain, denies feeling hot, and denies feelings of cold. Eyes: The patient denies glaucoma, notes eye injury/surgery, does not wear glasses or contacts. Ear/Nose/Throat: The patient notes allergies, denies hayfever, denies ear infections, and denies bloody noses. Cardiovascular: The patient denies chest pain, denies heart disease, denies high blood pressure,denies cardiac stent, denies prior heart attack, denies irregular heart beat, denies high cholesterol, denies poor circulation, denies heart failure, other cardiac issues, denies claudication, denies cold feet, denies peripheral arterial stent. Respiratory: The patient denies tuberculosis, denies pneumonia, denies frequent cough, denies pulmonary embolism, notes shortness of breath, and denies coughing up blood. Gastrointestinal: The patient denies difficulty swallowing, denies acid reflux, denies ulcers, denies vomiting, denies jaundice/hepatitis, denies gallbladder problems, denies black or tarry stools, denies hemorrhoids, denies bleeding from rectum, denies diverticulitis, denies constipation, denies diarrhea, denies loss of stool control, and notes hernias. Kidney/Bladder: The patient denies kidney stones, denies urine infections, and denies bloody urine. Skin: The patient denies a history of skin cancer, denies bleeding/changing moles, and denies a history of skin rash. Neurologic: The patient denies a history of epilepsy/convulsions, denies headaches, denies head/spinal injuries, and denies stroke/TIA. Psychiatric: The patient denies psychiatric medications, notes depression, and denies voices, denies substance abuse. Endocrine: The patient denies thyroid disorders, denies diabetes, and denies hormonal problems. Hematologic: The patient denies a history of bruising, denies bleeding, and denies anemia, denies blood clots. Infections: The patient denies a history of measles and mumps, denies rheumatic fever, and denies sexually transmitted diseases. Musculoskeletal: The patient denies back pain/injury, notes back problems, denies sciatica, denies knee/foot trouble, notes arthritis, or denies gout. When was patient's last Mammogram screening? 04/2021 Last Colonoscopy: 2014 Va Padilla LPN documented in this encounter [facility] 02-15-2022 Instructions Arcelia Garcia APRN.[facility] - 02/15/2022 11:[address] Lung Screen Results The CT scan that you will have done today will show if you have any nodules (small spots) in your lungs that are suspicious for cancer. Around 90% of the patients who have this scan done are found to have at least one nodule. Most nodules are benign (not cancer) and of no harm to you at all. A specialist will make a scientific evaluation about whether or not a nodule is worrisome based on its size and shape. The radiologist who will read your scan will put it into one of four categories: LUNG-RADS Category Description Overall Probability of Malignancy Recommended Follow-Up 1 Negative No nodules and definitely benign (non-cancerous nodules) Essentially 0. 1 Year - Follow-up Low dose CT 2 Benign Appearance or Behavior Nodules with a very low likelihood of becoming cancer due to size or lack of growth Less than 1% 1 Year - Follow-up Low dose CT 3 Probably Benign (new 4mm to 6mm nodule) Probably benign finding, short term follow-up recommended 1 to 2% 6 Months - Follow-up Low dose CT 4 Suspicious (new nodule >6mm, or a nodule that has grown by 1.5mm) Findings for which additional diagnostic testing and/or biopsy is recommended Will be calculated based on nodule characteristics. Dependent on what is seen on the exam. At times, we may see something outside of the lungs on the scan that could be a health concern. These will be indicated on the radiology report with an S modifier. S Clinically Significant or Potentially Clinically Significant Findings (non lung cancer) Referral or additional imaging/labs depending on result. Approximately 10% of people receive this result. Lung Cancer Screening hotline: [phone] Lung Cancer Screening [phone] Billing Questions: or [email or web address] Lung Cancer Screening Team: Fabienne Mcnair CNP; Bossman Garcia CNP; Colette Cornejo CNP; Elisa Lord CNP, SELVIN LevinC: [phone] Josemanuel Swanson PA-C Cigarette Logs : Record every single smoked cigarette on a cigarette log (either on their smartphone or with paper and pencil) contiguous to the smoking. Logging your smoked cigarettes in real-time (while smoking) helps quantify consumption accurately and helps you and your act of smoking become more mindful versus automatically, habitually without thought or cognizance. You can't change something if you can't measure the change. We discussed behavioral modification methods in order to unpair certain habits of smoking with specific activities and to help wean down the patient's smoking over time in order to minimize withdrawal effects of reduction in nicotine intake. Patient was instructed to smoke every hour on the hour during waking hours and not pair the cigarette with a normal activity such as coffee or driving as he or she normally would have. Patient was instructed to do this for a week and then cut back to smoking one cigarette every other hour for the second week, then cut back to smoking a cigarette every third hour on the third week, and quit on week 4. I instructed patient when starting this method to not smoke any more cigarettes than they normally would have smoked in a day and if they smoke less than 6 cigarettes per day to set those cigarettes out ahead of time and space them out evenly throughout the day to ensure they aren't increasing their cigarette consumption. Oral Substitutes/Hydration Drinking water is a superb coping technique. Snacking on crunchy, nutrient dense, low calorie foods such as chopped peppers, celery, or carrots can be extremely helpful. Using cinnamon sticks, plastic straws, and sugarless gum/ candy are also excellent oral substitutes. Phone [phone]-UWS ([phone]) as additional resource. documented in this encounter [facility] 02-15-2022 History of Present illness Narrative Images from the original note were not included. LUNG SCREENING VISIT PRIMARY CARE PHYSICIAN: Leonid Rice MD PULMONARY PROVIDER: Shellie Thompson MD Results will be communicated via letter or electronic record if applicable. Visit Delivery: In Person Patient Visit Type: Established Current Exam Type:annual LDCT Number of Pack Years: 75 pack years Current smoker (=0) The patient's smoking history is not similar to prior year shared decision visit. The reason for the discrepancy is packs/day used for the majority time of smoking was 1.5 Results will be communicated via letter or electronic record. REQUESTER: The referring provider advised the patient to have screening. HISTORY OF PRESENT ILLNESS: Jennifer Mcmullen is a 61 year old active smoker who presents for lung screening. Here with daughter who assisted with uzbek translation Respiratory symptoms include: SOB: Yes with ambulating < 0.5 mile, with bending. Has to take her time with routine ADLs. Has to take short frequent breaks between activities. Ongoing, unchanged. Chest tightness: Yes ongoing since 6 months. Coughing: Yes: With mucus Yellow and Thick at time greenish. Hemoptysis: No Wheezing: Yes on daily Bero Ellipta (advised to rinse mouth after each use) Spiriva resipmat and prn albuterol neb/rescue inhaler. Follows with general pulmonology at [facility]. Fever/Chills: No Recent Respiratory Infection: No Unintentional weight loss: No Appetite is fair since > 2 years. Last 6 Encounter Wt Readings: Date: Wt: 02/15/2022 100.2 kg (221 lb) 02/11/2022 100.2 kg (220 lb 14.4 oz) 12/31/2021 100.2 kg (221 lb) 11/29/2021 99.3 kg (219 lb) 11/13/2021 99.6 kg (219 lb 9.6 oz) 09/30/2021 95.7 kg (211 lb) ECOG PERFORMANCE STATUS: 2- Ambulatory and capable of all selfcare; unable to carry out work activities. Up and about > 50% of waking hrs. Modified Medical Research [place] Dyspnea Scale (MMRC) On level ground I walk slower than people of the same age because of breathlessness, or have to stop for breath when walking at my own pace 2 Lung Cancer Risk Factors: 1.Tobacco Use: Start Age 11, Quit Age N/A , Average packs per day 1.5, has cut down since past 2 years) now smokes 6 cigarettes, Pack Years 77. 2. Passive Smoke Exposure: Yes as an adult. 3. Personal hx of malignancy: No. 4. Significant exposures (1 year or more of exposure): None. 5. Race: . 6. Education:Less than highschool 7. BMI:Body mass index is 43.16 kg/m . 8. COPD: No 9. Pneumonia in the past 5 years: No 10. Is there a history of lung cancer in a first degree relative? No. 11. Is there a history of lung cancer in a non first degree relative? No 12. Is there a history of any other cancer in a first degree relative? Yes. Father colon cancer PAST MEDICAL HISTORY Diagnosis Date Asthma Chronic low back pain 05/27/2014 Work injury 2006 Depression [facility] Diabetes mellitus (HCC) Disc slipped disc in back Fracture of right ankle Head injury Helicobacter pylori infection 09/12/2016 Hernia, hiatal Hyperglycemia 2010 Insomnia JOSSELIN (obstructive sleep apnea) 02/25/2019 Post-traumatic headache 01/16/2014 Postmenopausal Prediabetes 04/08/2019 PTSD (post-traumatic stress disorder) Tobacco use PAST SURGICAL HISTORY Procedure Laterality Date APPENDECTOMY 2012 [facility] SECTION HX 1980 x 2 CHOLECYSTECTOMY 1989 COLONOSCOPY 01/10/2018 Random bx neg. internal hemorrhoids. lax anal tone. Giovanna in [facility] COLONOSCOPY FLX DX W/COLLJ SPEC WHEN PFRMD 06/12/2014 Colonoscopy out pt [facility] EGD 04/10/2018 Hpylori negative - Giovanna in [facility] ESOPHAGOGASTRODUODENOSCOPY TRANSORAL DIAGNOSTIC 06/12/2014 EGD outpt [facility] HERNIA REPAIR HX 12/01/2011 TOTAL ABDOMINAL HYSTERECT W/WO RMVL TUBE OVARY 1980 fibroid FAMILY HISTORY Problem Relation Age of Onset Heart Mother 70 Diabetes Mother Hypertension Mother Asthma Mother Hypertension Father Diabetes Father Colon Cancer Father in his seventies Asthma Sister Asthma Brother Seizures Brother Coronary Artery Disease Brother [place] albuterol (PROVENTIL) 2.5 mg /3 mL (0.083 %) nebulizer solution Use 3 mL via nebulizer every 4 hours as needed for wheezing/shortness of breath. Lancets lancets Test blood sugar(s) 1 times daily. Dx: Type 2 DM - Controlled E11.9 Insulin: No blood sugar diagnostic (BLOOD GLUCOSE TEST) test strip Test blood sugar(s) 1 times daily. Dx: Type 2 DM - Controlled E11.9 Insulin: No polyethylene glycol 3350 (MIRALAX) 17 gram/dose powder Take once daily, mix in 4 to 8 ounces of water BREO ELLIPTA 200-25 mcg/dose inhaler inhale 1 puff by mouth and INTO THE LUNGS once daily topiramate (TOPAMAX) 50 mg tablet Take 1 tablet by mouth twice daily. traZODone (DESYREL) 100 mg tablet Take 2 tablets by mouth daily at bedtime. [facility], [facility]. FLUoxetine (PROZAC) 20 mg capsule Take 20 mg by mouth once daily. tiotropium bromide (SPIRIVA RESPIMAT) 2.5 mcg/actuation inhaler Inhale 2 Puffs as instructed once daily. albuterol HFA (PROVENTIL HFA, VENTOLIN HFA) 90 mcg/actuation inhaler Inhale 2 Puffs as instructed every 4 hours as needed for wheezing/shortness of breath. Nebulizer NEBULIZER FOR HOME USE. DX: J45.41. Nebulizer and supplies. Face mask preferred. ALLERGIES Allergen Reactions Latex Itching Voltaren [Diclofena* Other: See Comments voltaren gel causes burning sensation to area in which it is applied The medications and allergies were reviewed and reconciled for this patient and deemed current. Health Maintenance Immunization History Administered Date(s) Administered COVID-19 original vaccine, full dose, monovalent (MODERNA) 05/28/2020 07/08/2020 Influenza 03/15/2016 Influenza Nasal, unspecified formulation 12/22/1995 Influenza Seasonal Inj Quad Age 6 Mo - 64 Yrs 12/15/2018 04/01/2020 04/02/2021 Influenza Seasonal Inj Quad Age 6 Mo-64 Yrs Pres Free 12/12/2013 05/06/2019 Influenza Seasonal Trivalent Inj Pres Free 01/11/2015 Influenza Vaccine, Split-Non Spec 12/31/2014 Pneumovax 02/16/2015 05/06/2019 Tdap (Age 7+) 11/02/2017 05/06/2019 influenza (ccIIV4) vaccine, age 6+ mo, quadrivalent (FLUCELVAX) 01/24/2018 pneumococcal (PCV20) vaccine, 20 valent (PREVNAR 20) 12/31/2021 Colonoscopy: 11/24/2010 Mammogram: 04/22/2021 DATA REVIEW I have directly visualized the testing documented: Prior Imaging: CT Chest 07/2020; pending images LDCT 05/2020 LungRADS category: 1 LungRADS modifier: None LungRADS 0 reason: n/a Recommendations: Continue annual screening with LDCT in 12 months. Other actionable findings: Nodule 1: This Calcified nodule is located in the Right Lower Lobe on slice number 170 with an average diameter of 5.0 mm (5.4 mm x 4.6 mm). Other lung nodule comments: None. Other findings: Linear atelectasis is present in the lingula and bilateral lower lobes. No focal consolidation is present. Mild diffuse bronchial wall thickening is noted. No thoracic lymphadenopathy. The thoracic aorta and main pulmonary artery are normal in caliber. The cardiac chambers are normal in size. No distinct coronary artery calcifications. Status post cholecystectomy. The imaged upper abdomen is otherwise stable without acute abnormality. There are degenerative changes of the thoracic spine. Last CT Chest - Impression Only No resulted procedures found. Last XR Chest - Impression Only No resulted procedures found. Pulmonary Function Testing: SPIROMETRY WITH DILATOR IF OBSTRUCTED ([id number]) - ordered on 10/18/18 [facility] [address] [place] [address] Test Date: 2018-10-18 Pat Name: JENNIFER MCMULLEN Department: Room: Gender: Female Residential Finish Carpenter: : 1960 Requested By: Order Number: [id number] Reading MD: Zack Walker Interpretive Statements ATS repeatability standards for spirometry met. Time to peak flow higher than lab standard, FEV1 may not be valid. ATS acceptability and repeatability standards for DLCO met. DLCO is not hemoglobin corrected. IMPRESSION: Spirometry shows no obstruction. The reduced FVC suggests moderate restriction. Recommend lung volumes if clinically indicated. The diffusi ng capacity is normal. Electronically Signed On 10-19-2018 7:37:30 EDT by Zack Walker [facility] [address] [place], [place] [address] PFT Lab Report Name: JENNIFER RAMIREZ ID: [id number] Date: 10/18/18 Physician: Genaro JACK Age: 57 Height(in): 60.0 Weight(lb): 234 Gender: Female Race: Diagnosis: Medication Set 1: Dyspnea Rest: No Dyspnea Exercise: No Cough: No Persistent: No Productive (cc): Smoker: No How Long: Stopped: Cigarettes: No Residential Finish Carpenter: Suha Dodson RCP Temp: 26 PBar: 734 PF Reference: ######## Spirometry Hb: gm/dL Ref Pre Pre Post Post Post Enedelia % Ref Enedelia % Ref % Chg FVC Liters 2.94 1.64 56 FEV1 Liters 2.30 1.33 58 FEV1/FVC % 79 81 LDU48-71% L/sec 2.33 1.49 64 [id number] L/sec 2.50 1.49 60 PEF L/sec 5.92 4.11 69 LAJ668% Sec 6.26 MVV L/min 92 f BPM Lung Volumes TLC Liters 4.43 VC Liters 2.94 IC Liters 1.77 FRC N2 Liters 2.46 ERV Liters 0.89 RV Liters 1.68 RV/TLC % 37 Diffusing Capacity DLCO mL/mmHg/min 20.5 15.7 77 DL Adj mL/mmHg/min 20.5 15.7 77 DLCO/VA mL/mHg/min/L 4.71 6.11 130 DL/VA Adj mL/mHg/min/L 4.71 6.11 130 VA Liters 4.36 2.58 59 IVC Liters 1.70 103 BHT Sec 10.65 Resistance Raw cmH2O/L/sec 2.68 sGaw L/s/cmH2O/L 0.240 Respiratory Muscle Force PI max cmH2O 76 PE max cmH2O 141 null PHYSICAL EXAM: BP 113/69 (BP Site: Left Arm, BP Position: Sitting, BP Cuff Size: Large Adult) Pulse 64 Wt 100.2 kg (221 lb) SpO2 98% BMI 43.16 kg/m Deferred ASSESSMENT and RECOMMENDATIONS: 1. Screening for lung cancer: Six year risk for lung cancer: 1.4 Source: [employer] [email or web address] I have determined that the patient is eligible for a low dose CT based on age, absence of signs or symptoms of lung cancer, and total pack years: Yes. The patient and I engaged in shared decision making, including the use of one or more decision aids, to include benefits, harms, follow-up diagnostic testing, over-diagnosis, false positive rate, and total radiation exposure. The patient understands and feels comfortable with it: Yes. The patient was counseled on the importance of adherence to annual LDCT lung cancer screening, impact of comorbidities and ability or willingness to undergo diagnosis and treatment. The patient understands and feels comfortable with it:Yes. 2. Nicotine dependence: The patient was counseled on the importance of smoking cessation if current smoker and, if appropriate, offered additional tobacco cessation counseling services - Smoking Cessation Counseling. SMOKING CESSATION COUNSELING Smoking cessation methods including Nicotine Replacement Therapies and Behavior Modification were discussed with the patient and assistance offered. Advised to set a quit date. now smokes 6 cigarettes, since past 2 years. Discussed NRTs nicotine lozenges/nicotine patch, side effects, dosage and administration. Declined Declined smoking cessation referral Was using Wellbutrin she later stop taking (per daughter). Not interested to resume. Cigarette Logs : Record every single smoked cigarette on a cigarette log (either on their smartphone or with paper and pencil) contiguous to the smoking. Logging your smoked cigarettes in real-time (while smoking) helps quantify consumption accurately and helps you and your act of smoking become more mindful versus automatically, habitually without thought or cognizance. You can't change something if you can't measure the change. Oral Substitutes/Hydration Drinking water is a superb coping technique. Snacking on crunchy, nutrient dense, low calorie foods such as chopped peppers, celery, or carrots can be extremely helpful. Using cinnamon sticks, plastic straws, and sugarless gum/ candy are also excellent oral substitutes. Phone [phone] ([phone]) as additional resource. The medical conditions adversely affected by cigarette use include:Diabetes. The patient is currently not ready to quit. I personally spent 6 minutes in counseling. The time spent in smoking cessation counseling is exclusive of any other counseling during this visit. I spent a total of 30 minutes on the date of the service which included preparing to see the patient, [id number] patient care, completing clinical documentation, obtaining and/or reviewing separately obtained history, counseling and educating the patient/family/caregiver, ordering medications, tests, or procedures, and communicating results to the patient/family/caregiver. Arcelia Garcia APRN.RIGO NPI #: February [id number] 11:11 AM documented in this encounter [facility] 02-11-2022 History of Present illness Narrative This note was created using [employer]. Subjective Jennifer Mcmullen is a 61 year old female. She noted a sore lump on her lower mid abdomen 5 days ago. This was tender, but with no drainage. She was planning to travel for [place] and was interested in having this drained or excised. She had no other symptoms. Her diabetes mellitus was controlled. She requested referral again to the Lung Cancer Screening program since she dropped out last year. Review of Systems Constitutional: Negative for fever. Respiratory: Negative. Gastrointestinal: Negative for abdominal pain, diarrhea, nausea and vomiting. ACTIVE PROBLEM LIST Depression Tobacco Use Family History of Colon Cancer Epigastric Abdominal Pain Anxiety Ddd (Degenerative Disc Disease), Lumbar Chronic Low Back Pain Asthma Post-Traumatic Headache Josselin (Obstructive Sleep Apnea) Obesity, Class III, BMI >= 40 Type 2 Diabetes Mellitus Without Complication, Without Long-Term Current Use of Insulin (Hcc) Current Outpatient Medications Medication Sig albuterol (PROVENTIL) 2.5 mg /3 mL (0.083 %) nebulizer solution Use 3 mL via nebulizer every 4 hours as needed for wheezing/shortness of breath. Lancets lancets Test blood sugar(s) 1 times daily. Dx: Type 2 DM - Controlled E11.9 Insulin: No blood sugar diagnostic (BLOOD GLUCOSE TEST) test strip Test blood sugar(s) 1 times daily. Dx: Type 2 DM - Controlled E11.9 Insulin: No polyethylene glycol 3350 (MIRALAX) 17 gram/dose powder Take once daily, mix in 4 to 8 ounces of water BREO ELLIPTA 200-25 mcg/dose inhaler inhale 1 puff by mouth and INTO THE LUNGS once daily topiramate (TOPAMAX) 50 mg tablet Take 1 tablet by mouth twice daily. traZODone (DESYREL) 100 mg tablet Take 2 tablets by mouth daily at bedtime. [facility] CNP[facility]. FLUoxetine (PROZAC) 20 mg capsule Take 20 mg by mouth once daily. tiotropium bromide (SPIRIVA RESPIMAT) 2.5 mcg/actuation inhaler Inhale 2 Puffs as instructed once daily. albuterol HFA (PROVENTIL HFA, VENTOLIN HFA) 90 mcg/actuation inhaler Inhale 2 Puffs as instructed every 4 hours as needed for wheezing/shortness of breath. Nebulizer NEBULIZER FOR HOME USE. DX: J45.41. Nebulizer and supplies. Face mask preferred. No current facility-administered medications for this visit. Objective BP 128/86 Pulse 80 Resp 16 Wt 100.2 kg (220 lb 14.4 oz) SpO2 97% BMI 43.14 kg/m Physical Exam Constitutional: Appearance: She is not ill-appearing. Abdominal: Palpations: Abdomen is soft. Comments: Tender 1.5 cm cyst infraumbilical area w/ no redness or pointing, along the previous midline incision scar. Neurological: Mental Status: She is alert. Assessment and Plan 1. Sebaceous cyst - ICD9: 706.2, ICD10: L72.3 (primary diagnosis) - CONSULT TO GENERAL SURGERY 2. Type 2 diabetes mellitus without complication, without long-term current use of insulin (HCC) - ICD9: 250.00, ICD10: E11.9 Controlled. - Continue current medications - BASIC METABOLIC PNL - HGB A1C 3. Tobacco use - ICD9: 305.1, ICD10: Z72.0 - CONSULT LUNG CANCER SCREENING CLINIC Leonid Rice MD documented in this encounter [facility] 12-31-2021 History of Present illness Narrative CC: Patient presents with: Follow Up HPI Jennifer Mcmullen is a 61 year old female who presents today for above. Asthma Patient currently using Spiriva, Breo Ellipta and albuterol as needed. Needs a new nebulizer machine. Denies frequent cough, wheezing or SOB. Tobacco use She was prescribed Wellbutrin in August for smoking cessation. Patient states she never had filled. She has decreased amount to about 1/2 PPD Type 2 diabetes mellitus without complication, without long-term current use of insulin ([facility]) Home blood sugar readings: daily, average around 120-140 Hypoglycemia: No She is compliant with medication(s) and is tolerating med(s) without any side effects. Denies increased thirst, urinary frequency, nocturia, fatigue, unintentional weight loss, blurred vision, numbness, tingling or pain in extremities, ulcers or sores on feet Patient's last HgA1C was Hemoglobin A1C (%) Date Value 09/30/2021 6.3 08/21/2020 6.7 04/03/2019 6.4 Hemoglobin A1C (POCT) (%) Date Value 04/02/2021 6.5 JOSSELIN (obstructive sleep apnea) Is compliant with CPAP. No changes in settings. Denies issues with mask. Denies snoring, un-refreshed sleep, insomnia, excessive daytime drowsiness. Depression/anxiety Medications managed by psychiatry at [facility]. Currently treated with Prozac, Topamax and Trazodone. REVIEW OF SYSTEMS See HPI PAST MEDICAL HISTORY Diagnosis Date Asthma Chronic low back pain 05/27/2014 Work injury 2006 Depression [facility] Diabetes mellitus (HCC) Disc slipped disc in back Fracture of right ankle Head injury Helicobacter pylori infection 09/12/2016 Hernia, hiatal Hyperglycemia 2010 Insomnia JOSSELIN (obstructive sleep apnea) 02/25/2019 Post-traumatic headache 01/16/2014 Postmenopausal Prediabetes 04/08/2019 PTSD (post-traumatic stress disorder) Tobacco use PAST SURGICAL HISTORY Procedure Laterality Date APPENDECTOMY 2012 Nydia SECTION HX 1980 x 2 CHOLECYSTECTOMY 1989 COLONOSCOPY 01/10/2018 Random bx neg. internal hemorrhoids. lax anal tone. [facility] in [facility] COLONOSCOPY FLX DX W/COLLJ SPEC WHEN PFRMD 06/12/2014 Colonoscopy out pt [facility] EGD 04/10/2018 Hpylori negative - [facility] in [facility] ESOPHAGOGASTRODUODENOSCOPY TRANSORAL DIAGNOSTIC 06/12/2014 EGD outpt [facility] HERNIA REPAIR HX 12/01/2011 TOTAL ABDOMINAL HYSTERECT W/WO RMVL TUBE OVARY 1980 fibroid ALLERGIES Latex and Voltaren [Diclofenac Sodium] MEDICATIONS Lancets lancets Test blood sugar(s) 1 times daily. Dx: Type 2 DM - Controlled E11.9 Insulin: No blood sugar diagnostic (BLOOD GLUCOSE TEST) test strip Test blood sugar(s) 1 times daily. Dx: Type 2 DM - Controlled E11.9 Insulin: No polyethylene glycol 3350 (MIRALAX) 17 gram/dose powder Take once daily, mix in 4 to 8 ounces of water BREO ELLIPTA 200-25 mcg/dose inhaler inhale 1 puff by mouth and INTO THE LUNGS once daily topiramate (TOPAMAX) 50 mg tablet Take 1 tablet by mouth twice daily. budesonide-formoterol (SYMBICORT) 160-4.5 mcg/actuation inhaler Inhale 2 Puffs as instructed twice daily. buPROPion SR (WELLBUTRIN SR) 150 mg 12 hr tablet Take 1 tablet by mouth twice daily. traZODone (DESYREL) 100 mg tablet Take 2 tablets by mouth daily at bedtime. Noble Gilbert, [facility]. FLUoxetine (PROZAC) 20 mg capsule Take 20 mg by mouth once daily. tiotropium bromide (SPIRIVA RESPIMAT) 2.5 mcg/actuation inhaler Inhale 2 Puffs as instructed once daily. albuterol (PROVENTIL) 2.5 mg /3 mL (0.083 %) nebulizer solution Use 3 mL via nebulizer every 4 hours as needed for wheezing/shortness of breath. albuterol HFA (PROVENTIL HFA, VENTOLIN HFA) 90 mcg/actuation inhaler Inhale 2 Puffs as instructed every 4 hours as needed for wheezing/shortness of breath. Nebulizer NEBULIZER FOR HOME USE. DX: J45.41. Nebulizer and supplies. Face mask preferred. FAMILY HISTORY Problem Relation Age of Onset Heart Mother 70 Diabetes Mother Hypertension Mother Asthma Mother Hypertension Father Diabetes Father Colon Cancer Father in his seventies Asthma Sister Asthma Brother Seizures Brother Coronary Artery Disease Brother [place] Social History Tobacco Use Smoking status: Every Day Packs/day: 1.00 Years: 50.00 Pack years: 50.00 Types: Cigarettes Smokeless tobacco: Never Tobacco comments: smokes one pack in a week Vaping Use Vaping Use: Never used Substance Use Topics Alcohol use: No Drug use: No PHYSICAL EXAM BP 106/72 Pulse 92 Resp 16 Wt 100.2 kg (221 lb) BMI 43.16 kg/m General Appearance: well appearing, in no acute distress, alert Pysch: mood and affect broad and appropriate Lungs: Lungs clear to auscultation. No wheezing, rhonchi, rales. Heart: RRR without murmur, gallop, or rubs. No ectopy Health maintenance reviewed with patient: SHINGRIX VACCINE(1 of 2) Never done PNEUMOCOCCAL(2 - PCV) due on 05/06/2020 LUNG CANCER SCREENING due on 05/20/2021 INFLUENZA(1) due on 09/09/2022 COVID-19 VACCINE(3 - Booster for Moderna series) due on 12/31/2022 HBA1C due on 04/02/2022 MAMMOGRAM due on 04/22/2022 DILATED RETINAL EXAM due on 06/18/2022 URINE ALBUMIN:CREATININE RATIO due on 09/30/2022 LDL CHOLESTEROL due on 09/30/2022 DIABETIC FOOT EXAM due on 09/30/2022 ANNUAL PCP TEAM CHRONIC DISEASE VISIT due on 11/29/2022 COLORECTAL CANCER SCREENING due on 01/02/2023 DTAP,TDAP,TD(3 - Td or Tdap) due on 05/06/2029 SPIROMETRY Completed HEPATITIS C SCREENING Completed HIV SCREENING Completed PAP TESTING Discontinued HPV TESTING Discontinued DATA REVIEWED: Most recent labs ASSESSMENT/PLAN: 1. Asthma with COPD (HCC) - ICD9: 493.20, ICD10: J44.9 (primary diagnosis) Stable Follow-up with pulmonology as advised - ALBUTEROL SULFATE 2.5 MG/3 ML (0.083 %) SOLUTION FOR NEBULIZATION - NEBULIZER 2. Type 2 diabetes mellitus without complication, without long-term current use of insulin (HCC) - ICD9: 250.00, ICD10: E11.9 Diet controlled 3. JOSSELIN (obstructive sleep apnea) - ICD9: 327.23, ICD10: G47.33 Compliant with CPAP 4. Tobacco use - ICD9: 305.1, ICD10: Z72.0 - Cessation encouraged. - Physiologic and physical aspects of tobacco addiction as well as strategies for quitting were discussed. - Counseling was given focusing on the harmful effects of this addiction especially given the patient's medical condition(s) which will be worsened because of the chemicals in tobacco. - declined assistance 7. Obesity, Class III, BMI >= 40 - ICD9: 278.01, ICD10: E66.01 Stable 8. Severe episode of recurrent major depressive disorder, without psychotic features (HCC) - ICD9: 296.33, ICD10: F33.2 Stable on medications 9. Anxiety - ICD9: 300.00, ICD10: F41.9 Stable on medications Prescription instructions reviewed with patient as applicable. Potential red flag symptoms discussed with the patient. Reviewed appropriate action plan to take if red flag symptoms occur. Patient agreeable to treatment plan. Marianna Easley APRN.CNP documented in this encounter [facility] 11-29-2021 History of Present illness Narrative Radiology Service Progress Note PATIENT NAME: Jennifer Mcmullen DATE OF SERVICE: November 29, 2021 TIME: 2:42 PM PATIENT IDENTITY VERIFICATION COMPLETED USING TWO (2) IDENTIFIERS: Name and Date of confirmed by patient verbally. FALL SCREENING: Has the patient had 2 falls in the last year or 1 fall with injury or currently using an Ambulatory Assistive Device (Walker, Cane, Wheelchair, Crutches, etc.)? No PATIENT GENDER DATA: Female. status: : No status: NO. PATIENT RELEVANT IMPLANT DATA REVIEWED: Not Applicable RADIOLOGY DEPARTMENT: General X-ray: Exam(s) Completed: Abdomen X-Ray: Abdomen PERIPHERAL IV DATA: Not applicable SIGNED BY: RT Nilda(R) November 29, 2021 2:42 PM documented in this encounter [facility] 11-29-2021 Instructions Marianna Easley APRN.CNP - 11/29/2021 2:34 PM EDT HOME INSTRUCTIONS FOR MANAGEMENT OF CONSTIPATION NON-MEDICATION MEASURES: 1. Increase your intake of fluids daily. Try to include 8 - 8 ounce glasses per day. Sip on fluids throughout the day. 2. Add more fiber to your diet. The recommended daily amount of fiber is 20 to 35 grams. If you are increasing your fiber intake do so slowly to avoid bloating and discomfort. The best source of fiber comes from foods. Examples of high fiber foods include whole grain breads and cereals, fruits (berries, prunes, oranges, etc) and vegetables (lettuce, broccoli, potato with skins, etc.). There are also fiber supplements available over the counter such as Metamucil or Benefiber 3. Increase your daily activity (walking, moving from bed to chair, or exercise in bed) 4. Set aside a time preferably around the same time each day (example: right after breakfast) to move bowels. MEDICATION MEASURES: (DO NOT START UNTIL INSTRUCTED) 1. Start Miralax This is a daily medication, can adjust how much you need over time depending on your stools. For example, decrease dose to half or every other day or so if stools become too loose. 2. Other treatments include using Milk of Magnesia 3 tablespoons at bedtime along with 8 ounces of water if above measures tried and no results. Call office if constipation does not resolve with above measures Go to ER if you develop severe abdominal pain, vomiting that won't stop, fever above 100.5, rigid/hard abdomen. documented in this encounter [facility] 11-29-2021 History of Present illness Narrative CC: Patient presents with: Abdominal Pain Constipation HPI Jennifer Mcmullen is a 61 year old female who presents today for above States she has been having lower abdominal pain with constipation for about a week now. Pain is constant and rated as an 8/10, pressure feeling. She has not attempted any medications to help her symptoms and nothing aggravates the pain. She has tried a heating pad with very little symptom relief. She reports straining with BM's. Small amount of blood on the toilet paper a couple times but resolved quickly. Last bowel movement was this morning. It was described as butterfield, hard, and small. States she last passed gas last night. She denies any difficulty in urinating, burning, frequency, or blood in her urine. No recent fever, chills, nausea or vomiting. Does endorse a foul taste in her mouth when she eats. No recent sick contacts. No change in eating habits and eats fairly healthy. States she drinks a cup of coffee in the morning and some water throughout the day. REVIEW OF SYSTEMS General: no fevers, no chills, no night sweats, no recurrent infections, no change in appetite, no change in energy, and no significant changes in weight Respiratory: no cough, no wheezing, no shortness of breath, no hemoptysis Cardiovascular: no chest pain, no chest pressure, no palpitations, and no swelling GI: See HPI : See HPI PAST MEDICAL HISTORY Diagnosis Date Asthma Chronic low back pain 05/27/2014 Work injury 2006 Diabetes mellitus (HCC) Disc slipped disc in back Fracture of right ankle Head injury Helicobacter pylori infection 09/12/2016 Hernia, hiatal Hyperglycemia 2010 Insomnia JOSSELIN (obstructive sleep apnea) 02/25/2019 Post-traumatic headache 01/16/2014 Postmenopausal Prediabetes 04/08/2019 PTSD (post-traumatic stress disorder) Tobacco use PAST SURGICAL HISTORY Procedure Laterality Date APPENDECTOMY 2012 Nydia SECTION HX 1979 x 2 CHOLECYSTECTOMY 1989 COLONOSCOPY 01/10/2018 Random bx neg. internal hemorrhoids. lax anal tone. Giovanna in [facility] COLONOSCOPY FLX DX W/COLLJ SPEC WHEN PFRMD 06/12/2014 Colonoscopy out pt [facility] EGD 04/10/2018 Hpylori negative - Gi[facility]anna in [facility] ESOPHAGOGASTRODUODENOSCOPY TRANSORAL DIAGNOSTIC 06/12/2014 EGD outpt [facility] HERNIA REPAIR HX 12/01/2011 TOTAL ABDOMINAL HYSTERECT W/WO RMVL TUBE OVARY 1979 fibroid ALLERGIES Latex and Voltaren [Diclofenac Sodium] MEDICATIONS BREO ELLIPTA 200-25 mcg/dose inhaler inhale 1 puff by mouth and INTO THE LUNGS once daily topiramate (TOPAMAX) 50 mg tablet Take 1 tablet by mouth twice daily. budesonide-formoterol (SYMBICORT) 160-4.5 mcg/actuation inhaler Inhale 2 Puffs as instructed twice daily. buPROPion SR (WELLBUTRIN SR) 150 mg 12 hr tablet Take 1 tablet by mouth twice daily. traZODone (DESYREL) 100 mg tablet Take 2 tablets by mouth daily at bedtime. Noble Gilbert, [facility], [facility]. FLUoxetine (PROZAC) 20 mg capsule Take 20 mg by mouth once daily. tiotropium bromide (SPIRIVA RESPIMAT) 2.5 mcg/actuation inhaler Inhale 2 Puffs as instructed once daily. albuterol (PROVENTIL) 2.5 mg /3 mL (0.083 %) nebulizer solution Use 3 mL via nebulizer every 4 hours as needed for wheezing/shortness of breath. albuterol HFA (PROVENTIL HFA, VENTOLIN HFA) 90 mcg/actuation inhaler Inhale 2 Puffs as instructed every 4 hours as needed for wheezing/shortness of breath. blood sugar diagnostic (BLOOD GLUCOSE TEST) test strip Test blood sugar(s) 1 times daily. Dx: Type 2 DM - Controlled E11.9 Insulin: No Lancets lancets Test blood sugar(s) 1 times daily. Dx: Type 2 DM - Controlled E11.9 Insulin: No Nebulizer NEBULIZER FOR HOME USE. DX: J45.41. Nebulizer and supplies. Face mask preferred. FAMILY HISTORY Problem Relation Age of Onset Heart Mother 70 Diabetes Mother Hypertension Mother Asthma Mother Hypertension Father Diabetes Father Colon Cancer Father in his seventies Asthma Sister Asthma Brother Seizures Brother Coronary Artery Disease Brother [place] Social History Tobacco Use Smoking status: Every Day Packs/day: 1.00 Years: 50.00 Pack years: 50.00 Types: Cigarettes Smokeless tobacco: Never Tobacco comments: smokes one pack in a week Vaping Use Vaping Use: Never used Substance Use Topics Alcohol use: No Drug use: No PHYSICAL EXAM BP 142/80 Pulse 80 Resp 16 Wt 99.3 kg (219 lb) BMI 42.77 kg/m General Appearance: well appearing, in no acute distress, alert Lungs: Lungs clear to auscultation. No wheezing, rhonchi, rales. Heart: RRR without murmur, gallop, or rubs. No ectopy Abdomen: Abdomen soft, non-tender. No masses, organomegaly. Positive findings: hypoactive bowel sounds ASSESSMENT/PLAN: 1. Lower abdominal pain - ICD9: 789.09, ICD10: R10.30 (primary diagnosis) Differential Diagnosis includes Constipation - XR ABDOMEN 2V ROUTINE SUPINE W UPRIGHT/DECUB/CTL rule out obstruction - Treatment for constipation discussed, see patient instructions. Instructed to wait to start Miralax until notified of x-ray results - follow-up on Monday if constipation or abdominal pain do not resolve 2. Constipation, unspecified constipation type - ICD9: 564.00, ICD10: K59.00 As above - XR ABDOMEN 2V ROUTINE SUPINE W UPRIGHT/DECUB/CTL 3. Type 2 diabetes mellitus without complication, without long-term current use of insulin ([facility]) - ICD9: 250.00, ICD10: E11.9 - LANCETS refilled - BLOOD GLUCOSE TEST STRIPS refilled Prescription instructions reviewed with patient as applicable. Potential red flag symptoms discussed with the patient. Reviewed appropriate action plan to take if red flag symptoms occur. Patient agreeable to treatment plan. Marianna Easley APRN.CNP documented in this encounter [facility] 11-13-2021 History of Present illness Narrative Patient presents with: Fatigue: Weak, dizziness, fatigue x 3 days HPI: Feeling bad for 3 days. Blood sugar feels low but was over 100 when checked. Positive symptoms: Weakness, dizziness, fatigue, sour taste in throat, syncope, ears hurt Negative symptoms: Cough, Shortness of breath, Chest pain, Sore throat, Nasal Congestion, Rhinorrhea, Fever, Chills, Headache, Nausea, Vomiting, Diarrhea, palpitations, OTC: none. Had second dose of Moderna COVID-19 vaccine June 2020. PAST MEDICAL HISTORY Diagnosis Date Asthma Chronic low back pain 05/27/2014 Work injury 2006 Depression [facility] Diabetes mellitus (HCC) Disc slipped disc in back Fracture of right ankle Head injury Helicobacter pylori infection 09/12/2016 Hernia, hiatal Hyperglycemia 2010 Insomnia JOSSELIN (obstructive sleep apnea) 02/25/2019 Post-traumatic headache 01/16/2014 Postmenopausal Prediabetes 04/08/2019 PTSD (post-traumatic stress disorder) Tobacco use MEDICATIONS: Current Outpatient Medications Medication Sig BREO ELLIPTA 200-25 mcg/dose inhaler inhale 1 puff by mouth and INTO THE LUNGS once daily topiramate (TOPAMAX) 50 mg tablet Take 1 tablet by mouth twice daily. budesonide-formoterol (SYMBICORT) 160-4.5 mcg/actuation inhaler Inhale 2 Puffs as instructed twice daily. buPROPion SR (WELLBUTRIN SR) 150 mg 12 hr tablet Take 1 tablet by mouth twice daily. traZODone (DESYREL) 100 mg tablet Take 2 tablets by mouth daily at bedtime. Noble Gilbert, [facility], [facility]. FLUoxetine (PROZAC) 20 mg capsule Take 20 mg by mouth once daily. tiotropium bromide (SPIRIVA RESPIMAT) 2.5 mcg/actuation inhaler Inhale 2 Puffs as instructed once daily. albuterol (PROVENTIL) 2.5 mg /3 mL (0.083 %) nebulizer solution Use 3 mL via nebulizer every 4 hours as needed for wheezing/shortness of breath. albuterol HFA (PROVENTIL HFA, VENTOLIN HFA) 90 mcg/actuation inhaler Inhale 2 Puffs as instructed every 4 hours as needed for wheezing/shortness of breath. blood sugar diagnostic (BLOOD GLUCOSE TEST) test strip Test blood sugar(s) 1 times daily. Dx: Type 2 DM - Controlled E11.9 Insulin: No Lancets lancets Test blood sugar(s) 1 times daily. Dx: Type 2 DM - Controlled E11.9 Insulin: No Nebulizer NEBULIZER FOR HOME USE. DX: J45.41. Nebulizer and supplies. Face mask preferred. No current facility-administered medications for this visit. ALLERGIES: ALLERGIES Allergen Reactions Latex Itching Voltaren [Diclofena* Other: See Comments voltaren gel causes burning sensation to area in which it is applied VITALS: BP 146/76 Pulse 73 Temp 36.8 C (98.2 F) Resp 18 Wt 99.6 kg (219 lb 9.6 oz) SpO2 97% BMI 42.89 kg/m PHYSICAL EXAM: GEN: Pleasant, in no acute distress. HEENT: PERRL, EOMI, conjunctiva clear Ears: canals clear. TMs without erythema, bulge, or effusion Sinuses: non-tender frontal sinus, non-tender maxillary sinuses Throat: moist mucous membranes, no erythema, no exudate Neck: supple, no thyromegaly, no lymphadenopathy HEART: regular rate and rhythm, no murmurs LUNGS: clear to auscultation, no wheezes or crackles, no increased WOB NEURO: Alert and oriented to person, place, and time. CN II-XII intact. DTR 2+/4. Normal strength. Normal gait. No tremor. ASSESSMENT/PLAN: 1. Syncope, unspecified syncope type - ICD9: 780.2, ICD10: R55 Patient admits she has passed out multiple times this week. Further evaluation recommended in the emergency room. Report sent to [facility] by ER passport. Terell Joseph MD documented in this encounter [facility] 11-01-2021 Miscellaneous Notes Patient has been identified by name and date of : Yes Patient phones for refill(s): Requested Prescriptions Pending Prescriptions Disp Refills topiramate (TOPAMAX) 50 mg tablet 60 tablet 5 Sig: Take 1 tablet by mouth twice daily. Date of last office visit in primary care: 09/30/2021 3 month follow-up: 12/31/2021 Last 2 Encounter Wt Readings: Date: Wt: 09/30/2021 95.7 kg (211 lb) 08/25/2021 98.2 kg (216 lb 6.4 oz) Previous labs/tests for medication: Not applicable Please advise. Thank you. Sanam Aragon LPN Pharmacy verified in [facility] Patient has been identified by name and date of : Yes Patient aware RX will be sent to pharmacy. No need to notify patient. Patient phones for refill(s): Requested Prescriptions Pending Prescriptions Disp Refills topiramate (TOPAMAX) 50 mg tablet 60 tablet 5 Sig: Take 1 tablet by mouth twice daily. Date of last office visit : 09/30/2021 Date of next office visit : 12/31/2021 Last 2 Encounter Wt Readings: Date: Wt: 09/30/2021 95.7 kg (211 lb) 08/25/2021 98.2 kg (216 lb 6.4 oz) Please advise. Chayo M Sim Pss documented in this encounter [facility] 10-14-2021 Miscellaneous Notes Patient returned call and given provider's message below and patient verbalized understanding. Nena Zuñiga RN Daughter/Shanthi Thompson notified of below results/recommendations. Sanam Aragon LPN ----- Message from Leonid Rice MD sent at 10/13/2021 11:36 PM EDT ----- Labs are okay. Diabetes and lipids controlled. Mild elevation of one liver enzyme consistent with fatty liver noted on ultrasound. Low carb diet and weight loss recommended for fatty liver. documented in this encounter [facility] 10-06-2021 History of Present illness Narrative Radiology Service Progress Note PATIENT NAME: Jennifer Mcmullen DATE OF SERVICE: October 06, 2021 TIME: 2:06 PM PATIENT IDENTITY VERIFICATION COMPLETED USING TWO (2) IDENTIFIERS: Name and Date of confirmed by patient verbally. FALL SCREENING: Has the patient had 2 falls in the last year or 1 fall with injury or currently using an Ambulatory Assistive Device (Walker, Cane, Wheelchair, Crutches, etc.)? Yes PATIENT GENDER DATA: Female. status: : No status: NO. PATIENT RELEVANT IMPLANT DATA REVIEWED: Not Applicable RADIOLOGY DEPARTMENT: Ultrasound PERIPHERAL IV DATA: Not applicable SIGNED BY: RT Jabier(R) October 06, 2021 2:06 PM documented in this encounter [facility] 09-30-2021 Instructions Leonid Rice MD - 09/30/2021 2:20 PM EDT DO ALL LABS TODAY. PATIENT FASTING. (CBC, CMP, LIPIDS, A1C, URINE ALBUMIN) SCHEDULE ULTRASOUND RIGHT UPPER QUADRANT ORDERED IN March. documented in this encounter [facility] 09-30-2021 History of Present illness Narrative This note was created using [employer]. Subjective Jennifer Mcmullen is a 60 year old female. She continued with malaise, poor appetite, upper abdominal pain, left flank pain. Somehow, she did not do her labs ordered for March or for today. She was not scheduled for the ultrasound, and she did not call back to schedule. She saw Dr. Hensley for pulmonary last month. She was scheduled to see her mental health provider next month. She stopped metformin months ago due to the large size of the tablet. Review of Systems Constitutional: Positive for appetite change. Negative for fever and unexpected weight change. HENT: Negative. Respiratory: Negative. Cardiovascular: Negative. Gastrointestinal: Positive for abdominal pain. Negative for constipation, diarrhea, nausea and vomiting. Genitourinary: Positive for flank pain. Negative for difficulty urinating and dysuria. Neurological: Negative. Psychiatric/Behavioral: Positive for dysphoric mood. ACTIVE PROBLEM LIST Depression Tobacco Use Family History of Colon Cancer Epigastric Abdominal Pain Anxiety Ddd (Degenerative Disc Disease), Lumbar Chronic Low Back Pain Asthma Post-Traumatic Headache Josselin (Obstructive Sleep Apnea) Obesity, Class III, BMI >= 40 Type 2 Diabetes Mellitus Without Complication, Without Long-Term Current Use of Insulin ([facility]) Current Outpatient Medications Medication Sig budesonide-formoterol (SYMBICORT) 160-4.5 mcg/actuation inhaler Inhale 2 Puffs as instructed twice daily. buPROPion SR (WELLBUTRIN SR) 150 mg 12 hr tablet Take 1 tablet by mouth twice daily. topiramate (TOPAMAX) 50 mg tablet Take 1 tablet by mouth twice daily. traZODone (DESYREL) 100 mg tablet Take 2 tablets by mouth daily at bedtime. Nbole Gilbert CNP, [facility]. FLUoxetine (PROZAC) 20 mg capsule Take 20 mg by mouth once daily. tiotropium bromide (SPIRIVA RESPIMAT) 2.5 mcg/actuation inhaler Inhale 2 Puffs as instructed once daily. albuterol (PROVENTIL) 2.5 mg /3 mL (0.083 %) nebulizer solution Use 3 mL via nebulizer every 4 hours as needed for wheezing/shortness of breath. albuterol HFA (PROVENTIL HFA, VENTOLIN HFA) 90 mcg/actuation inhaler Inhale 2 Puffs as instructed every 4 hours as needed for wheezing/shortness of breath. blood sugar diagnostic (BLOOD GLUCOSE TEST) test strip Test blood sugar(s) 1 times daily. Dx: Type 2 DM - Controlled E11.9 Insulin: No Lancets lancets Test blood sugar(s) 1 times daily. Dx: Type 2 DM - Controlled E11.9 Insulin: No montelukast (SINGULAIR) 10 mg tablet Take 1 tablet by mouth once daily. Nebulizer NEBULIZER FOR HOME USE. DX: J45.41. Nebulizer and supplies. Face mask preferred. metFORMIN ER (GLUCOPHAGE XR) 500 mg 24 hr tablet Take 1 tablet by mouth twice daily before meals. (Patient not taking: Reported on 09/30/2021 ) No current facility-administered medications for this visit. Objective BP 128/78 (BP Site: Right Arm, BP Position: Sitting, BP Cuff Size: Large Adult) Pulse 80 Temp 36.5 C (97.7 F) (Temporal Artery) Resp 24 Wt 95.7 kg (211 lb) BMI 41.21 kg/m Physical Exam Constitutional: General: She is not in acute distress. Appearance: She is not ill-appearing. HENT: Head: Normocephalic. Eyes: General: No scleral icterus. Conjunctiva/sclera: Conjunctivae normal. Cardiovascular: Rate and Rhythm: Normal rate and regular rhythm. Heart sounds: No murmur heard. No gallop. Pulmonary: Effort: Pulmonary effort is normal. Breath sounds: Normal breath sounds. Abdominal: Palpations: Abdomen is soft. There is no mass. Tenderness: There is abdominal tenderness in the epigastric area and left lower quadrant. There is no guarding or rebound. Musculoskeletal: Right lower leg: No edema. Left lower leg: No edema. Neurological: Mental Status: She is alert. Feet:Shoes and socks removed, No deformities, ulcers, calluses, normal distal pulses, sensitive to 10 gm monofilament and dry skin. Assessment and Plan 1. Malaise - ICD9: 780.79, ICD10: R53.81 (primary diagnosis) 2. Epigastric abdominal pain - ICD9: 789.06, ICD10: R10.13 Etiology unclear - Schedule US. 3. Dysgeusia - ICD9: 781.1, ICD10: R43.2 Do labs. 4. Type 2 diabetes mellitus without complication, without long-term current use of insulin (HCC) - ICD9: 250.00, ICD10: E11.9 Poor adherence to plan of care. Do labs. 5. Severe episode of recurrent major depressive disorder, without psychotic features (HCC) - ICD9: 296.33, ICD10: F33.2 See Noble Gilbert CNP next week. She declined vaccinations. Leonid Rice MD documented in this encounter [facility] 08-31-2021 Miscellaneous Notes Order for PAP supplies faxed to [employer]. Dionna Cervantes Adm Asst documented in this encounter [facility] 08-10-2021 Miscellaneous Notes I last Jennifer Mar 2019. Please let pt know refill requests should go to her dermatology procedural physician that she now sees in [place]. She saw Dr Colette Quarles. documented in this encounter [facility] 08-06-2020 History of Past i llness Narrative Problem Noted Date Resolved Date Acute pain of left shoulder 08/06/202003/14 Prediabetes 04/08/2019 10/28/2020 Helicobacter pylori infection 09/12/2016 Chronic pain 07/31/2015 08/17/2018 Bilateral low back pain without sciatica 015 08/17/2018 Incisional pain 02/06/2015 08/17/2018 Overview: Pain at the incisional hernia repair site. We had a CT scan done and sent to surgery, recommended pain management Last Assessment & Plan: Pain at the incisional hernia repair site. We had a CT scan done and sent to surgery, recommended pain management. She has an appointment. Myofascial pain 10/17/2014 08/17/2018 Constipation 06/06/2014 08/17/2018 Last Assessment & Plan: The patient has severe constipation, Is taking dulcolax and enema and it helps her some bit. But she is not evacuating completely. She is going for a colonoscopy on Monday. Knee pain 05/27/2014 08/17/2018 Back ache 04/09/2014 08/17/2018 Overview: She had a back injury at work, in 2005, She had not been able to work. It was a work related injury She is on disability. For her mental and back issues. Last Assessment & Plan: She had a back injury at work, in 2005, She had not been able to work. It was a work related injury She is on disability. For her mental and back issues. Abnormality of gait 01/28/2014 04/02/2021 Irreducible ventral hernia 03/02/201108/17 Disc 08/17/2018 Overview: slipped disc in back Hyperglycemia 12/15/2018 NEGATIVE MEDICAL HISTORY 019 Overview: PN, TB, HD, DM, CA documented as of this encounter (statuses as of 08/10/2021) [facility] History of Past illness Narrative* Problem Noted Date Resolved Date Acute pain of left shoulder 08/06/202003/14 Prediabetes 04/08/2019 10/28/2020 Helicobacter pylori infection 09/12/2016 Chronic pain 07/31/2015 08/17/2018 Bilateral low back pain without sciatica 015 08/17/2018 Incisional pain 02/06/2015 08/17/2018 Overview: Pain at the incisional hernia repair site. We had a CT scan done and sent to surgery, recommended pain management Last Assessment & Plan: Pain at the incisional hernia repair site. We had a CT scan done and sent to surgery, recommended pain management. She has an appointment. Myofascial pain 10/17/2014 08/17/2018 Constipation 06/06/2014 08/17/2018 Last Assessment & Plan: The patient has severe constipation, Is taking dulcolax and enema and it helps her some bit. But she is not evacuating completely. She is going for a colonoscopy on Monday. Knee pain 05/27/2014 08/17/2018 Back ache 04/09/2014 08/17/2018 Overview: She had a back injury at work, in 2005, She had not been able to work. It was a work related injury She is on disability. For her mental and back issues. Last Assessment & Plan: She had a back injury at work, in 2005, She had not been able to work. It was a work related injury She is on disability. For her mental and back issues. Abnormality of gait 01/28/2014 04/02/2021 Irreducible ventral hernia 03/02/201108/17 Disc 08/17/2018 Overview: slipped disc in back Hyperglycemia 12/15/2018 NEGATIVE MEDICAL HISTORY 019 Overview: PN, TB, HD, DM, CA documented as of this encounter (statuses as of 08/31/2021) [facility] History of Past illness Narrative* Problem Noted Date Resolved Date Acute pain of left shoulder 08/06/202003/14 Prediabetes 04/08/2019 10/28/2020 Helicobacter pylori infection 09/12/2016 Chronic pain 07/31/2015 08/17/2018 Bilateral low back pain without sciatica 015 08/17/2018 Incisional pain 02/06/2015 08/17/2018 Overview: Pain at the incisional hernia repair site. We had a CT scan done and sent to surgery, recommended pain management Last Assessment & Plan: Pain at the incisional hernia repair site. We had a CT scan done and sent to surgery, recommended pain management. She has an appointment. Myofascial pain 10/17/2014 08/17/2018 Constipation 06/06/2014 08/17/2018 Last Assessment & Plan: The patient has severe constipation, Is taking dulcolax and enema and it helps her some bit. But she is not evacuating completely. She is going for a colonoscopy on Monday. Knee pain 05/27/2014 08/17/2018 Back ache 04/09/2014 08/17/2018 Overview: She had a back injury at work, in 2005, She had not been able to work. It was a work related injury She is on disability. For her mental and back issues. Last Assessment & Plan: She had a back injury at work, in 2005, She had not been able to work. It was a work related injury She is on disability. For her mental and back issues. Abnormality of gait 01/28/2014 04/02/2021 Irreducible ventral hernia 03/02/201108/17 Disc 08/17/2018 Overview: slipped disc in back Hyperglycemia 12/15/2018 NEGATIVE MEDICAL HISTORY 019 Overview: PN, TB, HD, DM, CA documented as of this encounter (statuses as of 09/30/2021) [facility] History of Past illness Narrative* Problem Noted Date Resolved Date Acute pain of left shoulder 08/06/202003/14 Prediabetes 04/08/2019 10/28/2020 Helicobacter pylori infection 09/12/2016 Chronic pain 07/31/2015 08/17/2018 Bilateral low back pain without sciatica 015 08/17/2018 Incisional pain 02/06/2015 08/17/2018 Overview: Pain at the incisional hernia repair site. We had a CT scan done and sent to surgery, recommended pain management Last Assessment & Plan: Pain at the incisional hernia repair site. We had a CT scan done and sent to surgery, recommended pain management. She has an appointment. Myofascial pain 10/17/2014 08/17/2018 Constipation 06/06/2014 08/17/2018 Last Assessment & Plan: The patient has severe constipation, Is taking dulcolax and enema and it helps her some bit. But she is not evacuating completely. She is going for a colonoscopy on Monday. Knee pain 05/27/2014 08/17/2018 Back ache 04/09/2014 08/17/2018 Overview: She had a back injury at work, in 2005, She had not been able to work. It was a work related injury She is on disability. For her mental and back issues. Last Assessment & Plan: She had a back injury at work, in 2005, She had not been able to work. It was a work related injury She is on disability. For her mental and back issues. Abnormality of gait 01/28/2014 04/02/2021 Irreducible ventral hernia 03/02/201108/17 Disc 08/17/2018 Overview: slipped disc in back Hyperglycemia 12/15/2018 NEGATIVE MEDICAL HISTORY 019 Overview: PN, TB, HD, DM, CA documented as of this encounter (statuses as of 10/07/2021) [facility] History of Past illness Narrative* Problem Noted Date Resolved Date Acute pain of left shoulder 08/06/202003/14 Prediabetes 04/08/2019 10/28/2020 Helicobacter pylori infection 09/12/2016 Chronic pain 07/31/2015 08/17/2018 Bilateral low back pain without sciatica 015 08/17/2018 Incisional pain 02/06/2015 08/17/2018 Overview: Pain at the incisional hernia repair site. We had a CT scan done and sent to surgery, recommended pain management Last Assessment & Plan: Pain at the incisional hernia repair site. We had a CT scan done and sent to surgery, recommended pain management. She has an appointment. Myofascial pain 10/17/2014 08/17/2018 Constipation 06/06/2014 08/17/2018 Last Assessment & Plan: The patient has severe constipation, Is taking dulcolax and enema and it helps her some bit. But she is not evacuating completely. She is going for a colonoscopy on Monday. Knee pain 05/27/2014 08/17/2018 Back ache 04/09/2014 08/17/2018 Overview: She had a back injury at work, in 2005, She had not been able to work. It was a work related injury She is on disability. For her mental and back issues. Last Assessment & Plan: She had a back injury at work, in 2005, She had not been able to work. It was a work related injury She is on disability. For her mental and back issues. Abnormality of gait 01/28/2014 04/02/2021 Irreducible ventral hernia 03/02/201108/17 Disc 08/17/2018 Overview: slipped disc in back Hyperglycemia 12/15/2018 NEGATIVE MEDICAL HISTORY 019 Overview: PN, TB, HD, DM, CA documented as of this encounter (statuses as of 10/14/2021) [facility] History of Past illness Narrative* Problem Noted Date Resolved Date Acute pain of left shoulder 08/06/202003/14 Prediabetes 04/08/2019 10/28/2020 Helicobacter pylori infection 09/12/2016 Chronic pain 07/31/2015 08/17/2018 Bilateral low back pain without sciatica 015 08/17/2018 Incisional pain 02/06/2015 08/17/2018 Overview: Pain at the incisional hernia repair site. We had a CT scan done and sent to surgery, recommended pain management Last Assessment & Plan: Pain at the incisional hernia repair site. We had a CT scan done and sent to surgery, recommended pain management. She has an appointment. Myofascial pain 10/17/2014 08/17/2018 Constipation 06/06/2014 08/17/2018 Last Assessment & Plan: The patient has severe constipation, Is taking dulcolax and enema and it helps her some bit. But she is not evacuating completely. She is going for a colonoscopy on Monday. Knee pain 05/27/2014 08/17/2018 Back ache 04/09/2014 08/17/2018 Overview: She had a back injury at work, in 2005, She had not been able to work. It was a work related injury She is on disability. For her mental and back issues. Last Assessment & Plan: She had a back injury at work, in 2005, She had not been able to work. It was a work related injury She is on disability. For her mental and back issues. Abnormality of gait 01/28/2014 04/02/2021 Irreducible ventral hernia 03/02/201108/17 Disc 08/17/2018 Overview: slipped disc in back Hyperglycemia 12/15/2018 NEGATIVE MEDICAL HISTORY 019 Overview: PN, TB, HD, DM, CA documented as of this encounter (statuses as of 11/01/2021) [facility] History of Past illness Narrative* Problem Noted Date Resolved Date Acute pain of left shoulder 08/06/202003/14 Prediabetes 04/08/2019 10/28/2020 Helicobacter pylori infection 09/12/2016 Chronic pain 07/31/2015 08/17/2018 Bilateral low back pain without sciatica 015 08/17/2018 Incisional pain 02/06/2015 08/17/2018 Overview: Pain at the incisional hernia repair site. We had a CT scan done and sent to surgery, recommended pain management Last Assessment & Plan: Pain at the incisional hernia repair site. We had a CT scan done and sent to surgery, recommended pain management. She has an appointment. Myofascial pain 10/17/2014 08/17/2018 Constipation 06/06/2014 08/17/2018 Last Assessment & Plan: The patient has severe constipation, Is taking dulcolax and enema and it helps her some bit. But she is not evacuating completely. She is going for a colonoscopy on Monday. Knee pain 05/27/2014 08/17/2018 Back ache 04/09/2014 08/17/2018 Overview: She had a back injury at work, in 2005, She had not been able to work. It was a work related injury She is on disability. For her mental and back issues. Last Assessment & Plan: She had a back injury at work, in 2005, She had not been able to work. It was a work related injury She is on disability. For her mental and back issues. Abnormality of gait 01/28/2014 04/02/2021 Irreducible ventral hernia 03/02/201108/17 Disc 08/17/2018 Overview: slipped disc in back Hyperglycemia 12/15/2018 NEGATIVE MEDICAL HISTORY 019 Overview: PN, TB, HD, DM, CA documented as of this encounter (statuses as of 11/13/2021) [facility] History of Past illness Narrative* Problem Noted Date Resolved Date Acute pain of left shoulder 08/06/202003/14 Prediabetes 04/08/2019 10/28/2020 Helicobacter pylori infection 09/12/2016 Chronic pain 07/31/2015 08/17/2018 Bilateral low back pain without sciatica 015 08/17/2018 Incisional pain 02/06/2015 08/17/2018 Overview: Pain at the incisional hernia repair site. We had a CT scan done and sent to surgery, recommended pain management Last Assessment & Plan: Pain at the incisional hernia repair site. We had a CT scan done and sent to surgery, recommended pain management. She has an appointment. Myofascial pain 10/17/2014 08/17/2018 Constipation 06/06/2014 08/17/2018 Last Assessment & Plan: The patient has severe constipation, Is taking dulcolax and enema and it helps her some bit. But she is not evacuating completely. She is going for a colonoscopy on Monday. Knee pain 05/27/2014 08/17/2018 Back ache 04/09/2014 08/17/2018 Overview: She had a back injury at work, in 2005, She had not been able to work. It was a work related injury She is on disability. For her mental and back issues. Last Assessment & Plan: She had a back injury at work, in 2005, She had not been able to work. It was a work related injury She is on disability. For her mental and back issues. Abnormality of gait 01/28/2014 04/02/2021 Irreducible ventral hernia 03/02/201108/17 Disc 08/17/2018 Overview: slipped disc in back Hyperglycemia 12/15/2018 NEGATIVE MEDICAL HISTORY 019 Overview: PN, TB, HD, DM, CA documented as of this encounter (statuses as of 11/29/2021) [place] [address]-27-2021 History of Past illness Narrative* Problem Noted Date Resolved Date Acute pain of left shoulder 08/06/202003/14 Prediabetes 04/08/2019 10/28/2020 Helicobacter pylori infection 09/12/2016 Chronic pain 07/31/2015 08/17/2018 Bilateral low back pain without sciatica 015 08/17/2018 Incisional pain 02/06/2015 08/17/2018 Overview: Pain at the incisional hernia repair site. We had a CT scan done and sent to surgery, recommended pain management Last Assessment & Plan: Pain at the incisional hernia repair site. We had a CT scan done and sent to surgery, recommended pain management. She has an appointment. Myofascial pain 10/17/2014 08/17/2018 Constipation 06/06/2014 08/17/2018 Last Assessment & Plan: The patient has severe constipation, Is taking dulcolax and enema and it helps her some bit. But she is not evacuating completely. She is going for a colonoscopy on Monday. Knee pain 05/27/2014 08/17/2018 Back ache 04/09/2014 08/17/2018 Overview: She had a back injury at work, in 2005, She had not been able to work. It was a work related injury She is on disability. For her mental and back issues. Last Assessment & Plan: She had a back injury at work, in 2005, She had not been able to work. It was a work related injury She is on disability. For her mental and back issues. Abnormality of gait 01/28/2014 04/02/2021 Irreducible ventral hernia 03/02/201108/17 Disc 08/17/2018 Overview: slipped disc in back Hyperglycemia 12/15/2018 NEGATIVE MEDICAL HISTORY 019 Overview: PN, TB, HD, DM, CA documented as of this encounter (statuses as of 12/31/2021) [facility] of Past illness Narrative* Problem Noted Date Resolved Date Acute pain of left shoulder 08/06/202003/14 Prediabetes 04/08/2019 10/28/2020 Helicobacter pylori infection 09/12/2016 Chronic pain 07/31/2015 08/17/2018 Bilateral low back pain without sciatica 015 08/17/2018 Incisional pain 02/06/2015 08/17/2018 Overview: Pain at the incisional hernia repair site. We had a CT scan done and sent to surgery, recommended pain management Last Assessment & Plan: Pain at the incisional hernia repair site. We had a CT scan done and sent to surgery, recommended pain management. She has an appointment. Myofascial pain 10/17/2014 08/17/2018 Constipation 06/06/2014 08/17/2018 Last Assessment & Plan: The patient has severe constipation, Is taking dulcolax and enema and it helps her some bit. But she is not evacuating completely. She is going for a colonoscopy on Monday. Knee pain 05/27/2014 08/17/2018 Back ache 04/09/2014 08/17/2018 Overview: She had a back injury at work, in 2005, She had not been able to work. It was a work related injury She is on disability. For her mental and back issues. Last Assessment & Plan: She had a back injury at work, in 2005, She had not been able to work. It was a work related injury She is on disability. For her mental and back issues. Abnormality of gait 01/28/2014 04/02/2021 Irreducible ventral hernia 03/02/201108/17 Disc 08/17/2018 Overview: slipped disc in back Hyperglycemia 12/15/2018 NEGATIVE MEDICAL HISTORY 019 Overview: PN, TB, HD, DM, CA documented as of this encounter (statuses as of 02/12/2022) [facility] History of Past illness Narrative* Problem Noted Date Resolved Date Acute pain of left shoulder 08/06/202003/14 Prediabetes 04/08/2019 10/28/2020 Helicobacter pylori infection 09/12/2016 Chronic pain 07/31/2015 08/17/2018 Bilateral low back pain without sciatica 015 08/17/2018 Incisional pain 02/06/2015 08/17/2018 Overview: Pain at the incisional hernia repair site. We had a CT scan done and sent to surgery, recommended pain management Last Assessment & Plan: Pain at the incisional hernia repair site. We had a CT scan done and sent to surgery, recommended pain management. She has an appointment. Myofascial pain 10/17/2014 08/17/2018 Constipation 06/06/2014 08/17/2018 Last Assessment & Plan: The patient has severe constipation, Is taking dulcolax and enema and it helps her some bit. But she is not evacuating completely. She is going for a colonoscopy on Monday. Knee pain 05/27/2014 08/17/2018 Back ache 04/09/2014 08/17/2018 Overview: She had a back injury at work, in 2005, She had not been able to work. It was a work related injury She is on disability. For her mental and back issues. Last Assessment & Plan: She had a back injury at work, in 2005, She had not been able to work. It was a work related injury She is on disability. For her mental and back issues. Abnormality of gait 01/28/2014 04/02/2021 Irreducible ventral hernia 03/02/201108/17 Disc 08/17/2018 Overview: slipped disc in back Hyperglycemia 12/15/2018 NEGATIVE MEDICAL HISTORY 019 Overview: PN, TB, HD, DM, CA documented as of this encounter (statuses as of 02/15/2022) [facility] of Past illness Narrative* Problem Noted Date Resolved Date Acute pain of left shoulder 08/06/202003/14 Prediabetes 04/08/2019 10/28/2020 Helicobacter pylori infection 09/12/2016 Chronic pain 07/31/2015 08/17/2018 Bilateral low back pain without sciatica 015 08/17/2018 Incisional pain 02/06/2015 08/17/2018 Overview: Pain at the incisional hernia repair site. We had a CT scan done and sent to surgery, recommended pain management Last Assessment & Plan: Pain at the incisional hernia repair site. We had a CT scan done and sent to surgery, recommended pain management. She has an appointment. Myofascial pain 10/17/2014 08/17/2018 Constipation 06/06/2014 08/17/2018 Last Assessment & Plan: The patient has severe constipation, Is taking dulcolax and enema and it helps her some bit. But she is not evacuating completely. She is going for a colonoscopy on Monday. Knee pain 05/27/2014 08/17/2018 Back ache 04/09/2014 08/17/2018 Overview: She had a back injury at work, in 2005, She had not been able to work. It was a work related injury She is on disability. For her mental and back issues. Last Assessment & Plan: She had a back injury at work, in 2005, She had not been able to work. It was a work related injury She is on disability. For her mental and back issues. Abnormality of gait 01/28/2014 04/02/2021 Irreducible ventral hernia 03/02/201108/17 Disc 08/17/2018 Overview: slipped disc in back Hyperglycemia 12/15/2018 NEGATIVE MEDICAL HISTORY 019 Overview: PN, TB, HD, DM, CA documented as of this encounter (statuses as of 02/19/2022) [facility]05-27-2021 History of Past illness Narrative* Problem Noted Date Resolved Date Acute pain of left shoulder 08/06/202003/14 Prediabetes 04/08/2019 10/28/2020 Helicobacter pylori infection 09/12/2016 Chronic pain 07/31/2015 08/17/2018 Bilateral low back pain without sciatica 015 08/17/2018 Incisional pain 02/06/2015 08/17/2018 Overview: Pain at the incisional hernia repair site. We had a CT scan done and sent to surgery, recommended pain management Last Assessment & Plan: Pain at the incisional hernia repair site. We had a CT scan done and sent to surgery, recommended pain management. She has an appointment. Myofascial pain 10/17/2014 08/17/2018 Constipation 06/06/2014 08/17/2018 Last Assessment & Plan: The patient has severe constipation, Is taking dulcolax and enema and it helps her some bit. But she is not evacuating completely. She is going for a colonoscopy on Monday. Knee pain 05/27/2014 08/17/2018 Back ache 04/09/2014 08/17/2018 Overview: She had a back injury at work, in 2005, She had not been able to work. It was a work related injury She is on disability. For her mental and back issues. Last Assessment & Plan: She had a back injury at work, in 2005, She had not been able to work. It was a work related injury She is on disability. For her mental and back issues. Abnormality of gait 01/28/2014 04/02/2021 Irreducible ventral hernia 03/02/201108/17 Disc 08/17/2018 Overview: slipped disc in back Hyperglycemia 12/15/2018 NEGATIVE MEDICAL HISTORY 019 Overview: PN, TB, HD, DM, CA documented as of this encounter (statuses as of 04/01/2022) [facility]21 History of Past illness Narrative* Problem Noted Date Resolved Date Acute pain of left shoulder 08/06/202003/14 Prediabetes 04/08/2019 10/28/2020 Helicobacter pylori infection 09/12/2016 Chronic pain 07/31/2015 08/17/2018 Bilateral low back pain without sciatica 015 08/17/2018 Incisional pain 02/06/2015 08/17/2018 Overview: Pain at the incisional hernia repair site. We had a CT scan done and sent to surgery, recommended pain management Last Assessment & Plan: Pain at the incisional hernia repair site. We had a CT scan done and sent to surgery, recommended pain management. She has an appointment. Myofascial pain 10/17/2014 08/17/2018 Constipation 06/06/2014 08/17/2018 Last Assessment & Plan: The patient has severe constipation, Is taking dulcolax and enema and it helps her some bit. But she is not evacuating completely. She is going for a colonoscopy on Monday. Knee pain 05/27/2014 08/17/2018 Back ache 04/09/2014 08/17/2018 Overview: She had a back injury at work, in 2005, She had not been able to work. It was a work related injury She is on disability. For her mental and back issues. Last Assessment & Plan: She had a back injury at work, in 2005, She had not been able to work. It was a work related injury She is on disability. For her mental and back issues. Abnormality of gait 01/28/2014 04/02/2021 Irreducible ventral hernia 03/02/201108/17 Disc 08/17/2018 Overview: slipped disc in back Hyperglycemia 12/15/2018 NEGATIVE MEDICAL HISTORY 019 Overview: PN, TB, HD, DM, CA documented as of this encounter (statuses as of 04/01/2022) [facility] History of Past illness Narrative* Problem Noted Date Resolved Date Acute pain of left shoulder 08/06/202003/14 Prediabetes 04/08/2019 10/28/2020 Helicobacter pylori infection 09/12/2016 Chronic pain 07/31/2015 08/17/2018 Bilateral low back pain without sciatica 015 08/17/2018 Incisional pain 02/06/2015 08/17/2018 Overview: Pain at the incisional hernia repair site. We had a CT scan done and sent to surgery, recommended pain management Last Assessment & Plan: Pain at the incisional hernia repair site. We had a CT scan done and sent to surgery, recommended pain management. She has an appointment. Myofascial pain 10/17/2014 08/17/2018 Constipation 06/06/2014 08/17/2018 Last Assessment & Plan: The patient has severe constipation, Is taking dulcolax and enema and it helps her some bit. But she is not evacuating completely. She is going for a colonoscopy on Monday. Knee pain 05/27/2014 08/17/2018 Back ache 04/09/2014 08/17/2018 Overview: She had a back injury at work, in 2005, She had not been able to work. It was a work related injury She is on disability. For her mental and back issues. Last Assessment & Plan: She had a back injury at work, in 2005, She had not been able to work. It was a work related injury She is on disability. For her mental and back issues. Abnormality of gait 01/28/2014 04/02/2021 Irreducible ventral hernia 03/02/201108/17 Disc 08/17/2018 Overview: slipped disc in back Hyperglycemia 12/15/2018 NEGATIVE MEDICAL HISTORY 019 Overview: PN, TB, HD, DM, CA documented as of this encounter (statuses as of 04/07/2022) [facility] History of Past illness Narrative* Problem Noted Date Resolved Date Acute pain of left shoulder 08/06/202003/14 Prediabetes 04/08/2019 10/28/2020 Helicobacter pylori infection 09/12/2016 Chronic pain 07/31/2015 08/17/2018 Bilateral low back pain without sciatica 015 08/17/2018 Incisional pain 02/06/2015 08/17/2018 Overview: Pain at the incisional hernia repair site. We had a CT scan done and sent to surgery, recommended pain management Last Assessment & Plan: Pain at the incisional hernia repair site. We had a CT scan done and sent to surgery, recommended pain management. She has an appointment. Myofascial pain 10/17/2014 08/17/2018 Constipation 06/06/2014 08/17/2018 Last Assessment & Plan: The patient has severe constipation, Is taking dulcolax and enema and it helps her some bit. But she is not evacuating completely. She is going for a colonoscopy on Monday. Knee pain 05/27/2014 08/17/2018 Back ache 04/09/2014 08/17/2018 Overview: She had a back injury at work, in 2005, She had not been able to work. It was a work related injury She is on disability. For her mental and back issues. Last Assessment & Plan: She had a back injury at work, in 2005, She had not been able to work. It was a work related injury She is on disability. For her mental and back issues. Abnormality of gait 01/28/2014 04/02/2021 Irreducible ventral hernia 03/02/201108/17 Disc 08/17/2018 Overview: slipped disc in back Hyperglycemia 12/15/2018 NEGATIVE MEDICAL HISTORY 019 Overview: PN, TB, HD, DM, CA documented as of this encounter (statuses as of 05/25/2022) [facility] History of Past illness Narrative* Problem Noted Date Resolved Date Acute pain of left shoulder 08/06/202003/14 Prediabetes 04/08/2019 10/28/2020 Helicobacter pylori infection 09/12/2016 Chronic pain 07/31/2015 08/17/2018 Bilateral low back pain without sciatica 015 08/17/2018 Incisional pain 02/06/2015 08/17/2018 Overview: Pain at the incisional hernia repair site. We had a CT scan done and sent to surgery, recommended pain management Last Assessment & Plan: Pain at the incisional hernia repair site. We had a CT scan done and sent to surgery, recommended pain management. She has an appointment. Myofascial pain 10/17/2014 08/17/2018 Knee pain 05/27/2014 08/17/2018 Back ache 04/09/2014 08/17/2018 Overview: She had a back injury at work, in 2005, She had not been able to work. It was a work related injury She is on disability. For her mental and back issues. Last Assessment & Plan: She had a back injury at work, in 2005, She had not been able to work. It was a work related injury She is on disability. For her mental and back issues. Abnormality of gait 01/28/2014 04/02/2021 Irreducible ventral hernia 03/02/201108/17 Disc 08/17/2018 Overview: slipped disc in back Hyperglycemia 12/15/2018 NEGATIVE MEDICAL HISTORY 019 Overview: PN, TB, HD, DM, CA documented as of this encounter (statuses as of 05/31/2022) [facility] History of Past illness Narrative* Problem Noted Date Resolved Date Acute pain of left shoulder 08/06/202003/14 Prediabetes 04/08/2019 10/28/2020 Helicobacter pylori infection 09/12/2016 Chronic pain 07/31/2015 08/17/2018 Bilateral low back pain without sciatica 015 08/17/2018 Incisional pain 02/06/2015 08/17/2018 Overview: Pain at the incisional hernia repair site. We had a CT scan done and sent to surgery, recommended pain management Last Assessment & Plan: Pain at the incisional hernia repair site. We had a CT scan done and sent to surgery, recommended pain management. She has an appointment. Myofascial pain 10/17/2014 08/17/2018 Knee pain 05/27/2014 08/17/2018 Back ache 04/09/2014 08/17/2018 Overview: She had a back injury at work, in 2005, She had not been able to work. It was a work related injury She is on disability. For her mental and back issues. Last Assessment & Plan: She had a back injury at work, in 2005, She had not been able to work. It was a work related injury She is on disability. For her mental and back issues. Abnormality of gait 01/28/2014 04/02/2021 Irreducible ventral hernia 03/02/201108/17 Disc 08/17/2018 Overview: slipped disc in back Hyperglycemia 12/15/2018 NEGATIVE MEDICAL HISTORY 019 Overview: PN, TB, HD, DM, CA documented as of this encounter (statuses as of 06/08/2022) [facility] History of Past illness Narrative* Problem Noted Date Resolved Date Acute pain of left shoulder 08/06/202003/14 Prediabetes 04/08/2019 10/28/2020 Helicobacter pylori infection 09/12/2016 Chronic pain 07/31/2015 08/17/2018 Bilateral low back pain without sciatica 015 08/17/2018 Incisional pain 02/06/2015 08/17/2018 Overview: Pain at the incisional hernia repair site. We had a CT scan done and sent to surgery, recommended pain management Last Assessment & Plan: Pain at the incisional hernia repair site. We had a CT scan done and sent to surgery, recommended pain management. She has an appointment. Myofascial pain 10/17/2014 08/17/2018 Knee pain 05/27/2014 08/17/2018 Back ache 04/09/2014 08/17/2018 Overview: She had a back injury at work, in 2005, She had not been able to work. It was a work related injury She is on disability. For her mental and back issues. Last Assessment & Plan: She had a back injury at work, in 2005, She had not been able to work. It was a work related injury She is on disability. For her mental and back issues. Abnormality of gait 01/28/2014 04/02/2021 Irreducible ventral hernia 03/02/201108/17 Disc 08/17/2018 Overview: slipped disc in back Hyperglycemia 12/15/2018 NEGATIVE MEDICAL HISTORY 019 Overview: PN, TB, HD, DM, CA documented as of this encounter (statuses as of 06/13/2022) [facility] History of Past illness Narrative* Problem Noted Date Resolved Date Acute pain of left shoulder 08/06/202003/14 Prediabetes 04/08/2019 10/28/2020 Helicobacter pylori infection 09/12/2016 Chronic pain 07/31/2015 08/17/2018 Bilateral low back pain without sciatica 015 08/17/2018 Incisional pain 02/06/2015 08/17/2018 Overview: Pain at the incisional hernia repair site. We had a CT scan done and sent to surgery, recommended pain management Last Assessment & Plan: Pain at the incisional hernia repair site. We had a CT scan done and sent to surgery, recommended pain management. She has an appointment. Myofascial pain 10/17/2014 08/17/2018 Knee pain 05/27/2014 08/17/2018 Back ache 04/09/2014 08/17/2018 Overview: She had a back injury at work, in 2005, She had not been able to work. It was a work related injury She is on disability. For her mental and back issues. Last Assessment & Plan: She had a back injury at work, in 2005, She had not been able to work. It was a work related injury She is on disability. For her mental and back issues. Abnormality of gait 01/28/2014 04/02/2021 Irreducible ventral hernia 03/02/201108/17 Disc 08/17/2018 Overview: slipped disc in back Hyperglycemia 12/15/2018 NEGATIVE MEDICAL HISTORY 019 Overview: PN, TB, HD, DM, CA documented as of this encounter (statuses as of 07/27/2022) [facility] History of Past illness Narrative* Problem Noted Date Diagnosed Date Resolved Date Acute pain of left shoulder 08/06/2020 04/02/2021 Prediabetes 04/08/2019 10/28/2020 Helicobacter pylori infection 09/12/2016 08/17/2018 Chronic pain 07/31/2015 08/17/2018 Bilateral low back pain without sciatica 02/16/2015 08/17/2018 Incisional pain 02/06/2015 08/17/2018 Overview: Pain at the incisional hernia repair site. We had a CT scan done and sent to surgery, recommended pain management Last Assessment & Plan: Pain at the incisional hernia repair site. We had a CT scan done and sent to surgery, recommended pain management. She has an appointment. Myofascial pain 10/17/2014 08/17/2018 Knee pain 05/27/2014 08/17/2018 Back ache 04/09/2014 08/17/2018 Overview: She had a back injury at work, in 2005, She had not been able to work. It was a work related injury She is on disability. For her mental and back issues. Last Assessment & Plan: She had a back injury at work, in 2005, She had not been able to work. It was a work related injury She is on disability. For her mental and back issues. Abnormality of gait 01/28/2014 04/02/19 22 Irreducible ventral hernia 03/02/2011 0 08/17/2018 Disc 08/17/2018 Overview: slipped disc in back Hyperglycemia 12/15/2018 NEGATIVE MEDICAL HISTORY 09/2018 Overview: PN, TB, HD, DM, CA documented as of this encounter (statuses as of 11/18/2022) [facility] History of Past illness Narrative* Problem Noted Date Diagnosed Date Resolved Date Acute pain of left shoulder 08/06/2020 04/02/2021 Prediabetes 04/08/2019 10/28/2020 Helicobacter pylori infection 09/12/2016 08/17/2018 Chronic pain 07/31/2015 08/17/2018 Bilateral low back pain without sciatica 02/16/2015 08/17/2018 Incisional pain 02/06/2015 08/17/2018 Overview: Pain at the incisional hernia repair site. We had a CT scan done and sent to surgery, recommended pain management Last Assessment & Plan: Pain at the incisional hernia repair site. We had a CT scan done and sent to surgery, recommended pain management. She has an appointment. Myofascial pain 10/17/2014 08/17/2018 Knee pain 05/27/2014 08/17/2018 Back ache 04/09/2014 08/17/2018 Overview: She had a back injury at work, in 2005, She had not been able to work. It was a work related injury She is on disability. For her mental and back issues. Last Assessment & Plan: She had a back injury at work, in 2005, She had not been able to work. It was a work related injury She is on disability. For her mental and back issues. Abnormality of gait 01/28/2014 04/02/19 22 Irreducible ventral hernia 03/02/2011 0 08/17/2018 Disc 08/17/2018 Overview: slipped disc in back Hyperglycemia 12/15/2018 NEGATIVE MEDICAL HISTORY 09/2018 Overview: PN, TB, HD, DM, CA documented as of this encounter (statuses as of 11/25/2022) [facility] History of Past illness Narrative* Problem Noted Date Diagnosed Date Resolved Date Acute pain of left shoulder 08/06/2020 04/02/2021 Prediabetes 04/08/2019 10/28/2020 Helicobacter pylori infection 09/12/2016 08/17/2018 Chronic pain 07/31/2015 08/17/2018 Bilateral low back pain without sciatica 02/16/2015 08/17/2018 Incisional pain 02/06/2015 08/17/2018 Overview: Pain at the incisional hernia repair site. We had a CT scan done and sent to surgery, recommended pain management Last Assessment & Plan: Pain at the incisional hernia repair site. We had a CT scan done and sent to surgery, recommended pain management. She has an appointment. Myofascial pain 10/17/2014 08/17/2018 Knee pain 05/27/2014 08/17/2018 Back ache 04/09/2014 08/17/2018 Overview: She had a back injury at work, in 2005, She had not been able to work. It was a work related injury She is on disability. For her mental and back issues. Last Assessment & Plan: She had a back injury at work, in 2005, She had not been able to work. It was a work related injury She is on disability. For her mental and back issues. Abnormality of gait 01/28/2014 04/02/19 22 Irreducible ventral hernia 03/02/2011 0 08/17/2018 Disc 08/17/2018 Overview: slipped disc in back Hyperglycemia 12/15/2018 NEGATIVE MEDICAL HISTORY 09/2018 Overview: PN, TB, HD, DM, CA documented as of this encounter (statuses as of 11/28/2022) [facility] History of Past illness Narrative* Problem Noted Date Diagnosed Date Resolved Date Acute pain of left shoulder 08/06/2020 04/02/2021 Prediabetes 04/08/2019 10/28/2020 Helicobacter pylori infection 09/12/2016 08/17/2018 Chronic pain 07/31/2015 08/17/2018 Bilateral low back pain without sciatica 02/16/2015 08/17/2018 Incisional pain 02/06/2015 08/17/2018 Overview: Pain at the incisional hernia repair site. We had a CT scan done and sent to surgery, recommended pain management Last Assessment & Plan: Pain at the incisional hernia repair site. We had a CT scan done and sent to surgery, recommended pain management. She has an appointment. Myofascial pain 10/17/2014 08/17/2018 Knee pain 05/27/2014 08/17/2018 Back ache 04/09/2014 08/17/2018 Overview: She had a back injury at work, in 2005, She had not been able to work. It was a work related injury She is on disability. For her mental and back issues. Last Assessment & Plan: She had a back injury at work, in 2005, She had not been able to work. It was a work related injury She is on disability. For her mental and back issues. Abnormality of gait 01/28/2014 04/02/19 22 Irreducible ventral hernia 03/02/2011 0 08/17/2018 Disc 08/17/2018 Overview: slipped disc in back Hyperglycemia 12/15/2018 NEGATIVE MEDICAL HISTORY 09/2018 Overview: PN, TB, HD, DM, CA documented as of this encounter (statuses as of 12/04/2022) [facility] History of Past illness Narrative* Problem Noted Date Diagnosed Date Resolved Date Acute pain of left shoulder 08/06/2020 04/02/2021 Prediabetes 04/08/2019 10/28/2020 Helicobacter pylori infection 09/12/2016 08/17/2018 Chronic pain 07/31/2015 08/17/2018 Bilateral low back pain without sciatica 02/16/2015 08/17/2018 Incisional pain 02/06/2015 08/17/2018 Overview: Pain at the incisional hernia repair site. We had a CT scan done and sent to surgery, recommended pain management Last Assessment & Plan: Pain at the incisional hernia repair site. We had a CT scan done and sent to surgery, recommended pain management. She has an appointment. Myofascial pain 10/17/2014 08/17/2018 Knee pain 05/27/2014 08/17/2018 Back ache 04/09/2014 08/17/2018 Overview: She had a back injury at work, in 2005, She had not been able to work. It was a work related injury She is on disability. For her mental and back issues. Last Assessment & Plan: She had a back injury at work, in 2005, She had not been able to work. It was a work related injury She is on disability. For her mental and back issues. Abnormality of gait 01/28/2014 04/02/19 22 Irreducible ventral hernia 03/02/2011 0 08/17/2018 Disc 08/17/2018 Overview: slipped disc in back Hyperglycemia 12/15/2018 NEGATIVE MEDICAL HISTORY 09/2018 Overview: PN, TB, HD, DM, CA documented as of this encounter (statuses as of 12/16/2022) [facility] History of Past illness Narrative* Problem Noted Date Diagnosed Date Resolved Date Acute pain of left shoulder 08/06/2020 04/02/2021 Prediabetes 04/08/2019 10/28/2020 Helicobacter pylori infection 09/12/2016 08/17/2018 Chronic pain 07/31/2015 08/17/2018 Bilateral low back pain without sciatica 02/16/2015 08/17/2018 Incisional pain 02/06/2015 08/17/2018 Overview: Pain at the incisional hernia repair site. We had a CT scan done and sent to surgery, recommended pain management Last Assessment & Plan: Pain at the incisional hernia repair site. We had a CT scan done and sent to surgery, recommended pain management. She has an appointment. Myofascial pain 10/17/2014 08/17/2018 Knee pain 05/27/2014 08/17/2018 Back ache 04/09/2014 08/17/2018 Overview: She had a back injury at work, in 2005, She had not been able to work. It was a work related injury She is on disability. For her mental and back issues. Last Assessment & Plan: She had a back injury at work, in 2005, She had not been able to work. It was a work related injury She is on disability. For her mental and back issues. Abnormality of gait 01/28/2014 04/02/19 22 Irreducible ventral hernia 03/02/2011 0 08/17/2018 Disc 08/17/2018 Overview: slipped disc in back Hyperglycemia 12/15/2018 NEGATIVE MEDICAL HISTORY 09/2018 Overview: PN, TB, HD, DM, CA documented as of this encounter (statuses as of 01/16/2023) [facility] of Past illness Narrative* Problem Noted Date Diagnosed Date Resolved Date Acute pain of left shoulder 08/06/2020 04/02/2021 Prediabetes 04/08/2019 10/28/2020 Helicobacter pylori infection 09/12/2016 08/17/2018 Chronic pain 07/31/2015 08/17/2018 Bilateral low back pain without sciatica 02/16/2015 08/17/2018 Incisional pain 02/06/2015 08/17/2018 Overview: Pain at the incisional hernia repair site. We had a CT scan done and sent to surgery, recommended pain management Last Assessment & Plan: Pain at the incisional hernia repair site. We had a CT scan done and sent to surgery, recommended pain management. She has an appointment. Myofascial pain 10/17/2014 08/17/2018 Knee pain 05/27/2014 08/17/2018 Back ache 04/09/2014 08/17/2018 Overview: She had a back injury at work, in 2005, She had not been able to work. It was a work related injury She is on disability. For her mental and back issues. Last Assessment & Plan: She had a back injury at work, in 2005, She had not been able to work. It was a work related injury She is on disability. For her mental and back issues. Abnormality of gait 01/28/2014 04/02/19 22 Irreducible ventral hernia 03/02/2011 0 08/17/2018 Disc 08/17/2018 Overview: slipped disc in back Hyperglycemia 12/15/2018 NEGATIVE MEDICAL HISTORY 09/2018 Overview: PN, TB, HD, DM, CA documented as of this encounter (statuses as of 01/27/2023) [facility] of Past illness Narrative* Problem Noted Date Diagnosed Date Resolved Date Acute pain of left shoulder 08/06/2020 04/02/2021 Prediabetes 04/08/2019 10/28/2020 Helicobacter pylori infection 09/12/2016 08/17/2018 Chronic pain 07/31/2015 08/17/2018 Bilateral low back pain without sciatica 02/16/2015 08/17/2018 Incisional pain 02/06/2015 08/17/2018 Overview: Pain at the incisional hernia repair site. We had a CT scan done and sent to surgery, recommended pain management Last Assessment & Plan: Pain at the incisional hernia repair site. We had a CT scan done and sent to surgery, recommended pain management. She has an appointment. Myofascial pain 10/17/2014 08/17/2018 Knee pain 05/27/2014 08/17/2018 Back ache 04/09/2014 08/17/2018 Overview: She had a back injury at work, in 2005, She had not been able to work. It was a work related injury She is on disability. For her mental and back issues. Last Assessment & Plan: She had a back injury at work, in 2005, She had not been able to work. It was a work related injury She is on disability. For her mental and back issues. Abnormality of gait 01/28/2014 04/02/19 22 Irreducible ventral hernia 03/02/2011 0 08/17/2018 Disc 08/17/2018 Overview: slipped disc in back Hyperglycemia 12/15/2018 NEGATIVE MEDICAL HISTORY 09/2018 Overview: PN, TB, HD, DM, CA documented as of this encounter (statuses as of 06/02/2023) [facility] of Past illness Narrative* Problem Noted Date Diagnosed Date Resolved Date Acute pain of left shoulder 08/06/2020 04/02/2021 Prediabetes 04/08/2019 10/28/2020 Helicobacter pylori infection 09/12/2016 08/17/2018 Chronic pain 07/31/2015 08/17/2018 Bilateral low back pain without sciatica 02/16/2015 08/17/2018 Incisional pain 02/06/2015 08/17/2018 Overview: Pain at the incisional hernia repair site. We had a CT scan done and sent to surgery, recommended pain management Last Assessment & Plan: Pain at the incisional hernia repair site. We had a CT scan done and sent to surgery, recommended pain management. She has an appointment. Myofascial pain 10/17/2014 08/17/2018 Knee pain 05/27/2014 08/17/2018 Back ache 04/09/2014 08/17/2018 Overview: She had a back injury at work, in 2005, She had not been able to work. It was a work related injury She is on disability. For her mental and back issues. Last Assessment & Plan: She had a back injury at work, in 2005, She had not been able to work. It was a work related injury She is on disability. For her mental and back issues. Abnormality of gait 01/28/2014 04/02/19 22 Irreducible ventral hernia 03/02/2011 0 08/17/2018 Disc 08/17/2018 Overview: slipped disc in back Hyperglycemia 12/15/2018 NEGATIVE MEDICAL HISTORY 09/2018 Overview: PN, TB, HD, DM, CA documented as of this encounter (statuses as of 06/03/2023) [facility] No data available for this section Evaluation note* Diagnosis Moderate persistent asthma, unspecified whether complicated [facility] Diagnosis Malaise- Primary Other malaise and fatigue Epigastric abdominal pain Abdominal pain, epigastric Dysgeusia Disturbances of sensation of smell and taste Type 2 diabetes mellitus without complication, without long-term current use of insulin (HCC) Severe episode of recurrent major depressive disorder, without psychotic features (HCC) [facility] Diagnosis Epigastric abdominal pain Abdominal pain, epigastric [facility] Diagnosis Chronic post-traumatic headache, not intractable Chronic post-traumatic headache [facility]* Diagnosis Syncope, unspecified syncope type- Primary [facility]* Diagnosis Lower abdominal pain- Primary Abdominal pain, other specified site Constipation, unspecified constipation type Type 2 diabetes mellitus without complication, without long-term current use of insulin (HCC) [facility]* Diagnosis Asthma with COPD (HCC)- Primary Chronic obstructive asthma, unspecified Type 2 diabetes mellitus without complication, without long-term current use of insulin (HCC) JOSSELIN (obstructive sleep apnea) Obstructive sleep apnea (adult) (pediatric) Encounter for immunization Need for other specified prophylactic vaccination against single bacterial disease Tobacco use Tobacco use disorder Obesity, Class III, BMI >= 40 Morbid obesity Severe episode of recurrent major depressive disorder, without psychotic features (HCC) Anxiety Anxiety state, unspecified [facility]* Diagnosis Sebaceous cyst- Primary Type 2 diabetes mellitus without complication, without long-term current use of insulin (HCC) Tobacco use Tobacco use disorder [facility] noteNo assessment information availableWWright-[facility] Work Phone: Evaluation note* Diagnosis Encounter for screening for lung cancer- Primary Smoker Tobacco use disorder [facility] Diagnosis Abscess of skin of abdomen- Primary Cellulitis and abscess of trunk [facility]* Diagnosis Smoker Tobacco use disorder Encounter for screening for lung cancer [facility]* Diagnosis Chronic post-traumatic headache, not intractable Chronic post-traumatic headache [facility]* Diagnosis Chronic left shoulder pain- Primary Pain in joint, shoulder region Asthma with COPD (HCC) Chronic obstructive asthma, unspecified Type 2 diabetes mellitus without complication, without long-term current use of insulin (HCC) Encounter for screening mammogram for malignant neoplasm of breast Other screening mammogram Constipation, unspecified constipation type [facility] Diagnosis Hyperkalemia- Primary Hyperpotassemia [facility] Left hand pain- Primary Pain in limb [facility] Diagnosis Left hand pain- Primary Pain in limb Need for influenza vaccination Need for prophylactic vaccination and inoculation against influenza [facility] Diagnosis Moderate persistent asthma, unspecified whether complicated [facility]* Diagnosis Skin yeast infection- Primary Candidiasis of skin and nails [facility]* Diagnosis Encounter for screening mammogram for malignant neoplasm of breast Other screening mammogram [facility] Diagnosis Chronic left shoulder pain Pain in joint, shoulder region [facility]* Diagnosis Chronic post-traumatic headache, not intractable Chronic post-traumatic headache [facility]* Diagnosis Encounter for screening mammogram for malignant neoplasm of breast- Primary Other screening mammogram [facility]* Diagnosis Type 2 diabetes mellitus without complication, without long-term current use of insulin (HCC)- Primary Left hand pain Pain in limb Moderate persistent asthma, unspecified whether complicated Obesity, Class III, BMI >= 40 Morbid obesity Screening for colon cancer Special screening for malignant neoplasms, colon Encounter for immunization Need for other specified prophylactic vaccination against single bacterial disease [facility]* Diagnosis Encounter for screening mammogram for malignant neoplasm of breast Other screening mammogram [facility] Diagnosis Abnormal mammogram of left breast- Primary [facility] Diagnosis Encounter for screening colonoscopy- Primary Special screening for malignant neoplasms, colon Screening for colon cancer Special screening for malignant neoplasms, colon [facility] Diagnosis Abnormal mammogram of left breast- Primary [facility] Diagnosis Abnormal mammogram of left breast [facility]* Diagnosis Abnormal mammogram of left breast [facility] Diagnosis Anxiety- Primary Anxiety state, unspecified Depression Depressive disorder, not elsewhere classified Back ache Backache, unspecified Tobacco use Tobacco use disorder Routine health maintenance Routine general medical examination at a health care facility Constipation- Primary Unspecified constipation DDD (degenerative disc disease), lumbar Degeneration of lumbar or lumbosacral intervertebral disc Depression Depressive disorder, not elsewhere classified Anxiety Anxiety state, unspecified Palpitation Palpitations Mild persistent asthma without complication- Primary Unspecified asthma Other specified abdominal hernia with obstruction and without gangrene DDD (degenerative disc disease), lumbar Degeneration of lumbar or lumbosacral intervertebral disc Gastroesophageal reflux disease without esophagitis Esophageal reflux Epigastric pain Abdominal pain, epigastric Need for prophylactic vaccination against Streptococcus pneumoniae (pneumococcus)- Primary Need for prophylactic vaccination against streptococcus pneumoniae (pneumococcus) Incisional pain Disturbance of skin sensation Tobacco use Tobacco use disorder Left knee pain Pain in joint, lower leg Bilateral low back pain without sciatica Severe episode of recurrent major depressive disorder, without psychotic features (HCC)- Primary Anxiety Anxiety state, unspecified Gastroesophageal reflux disease without esophagitis Esophageal reflux Migraine without aura and without status migrainosus, not intractable Migraine without aura, without mention of intractable migraine without mention of status migrainosus Asthma with COPD (HCC)- Primary Chronic obstructive asthma, unspecified Type 2 diabetes mellitus without complication, without long-term current use of insulin (HCC) JOSSELIN (obstructive sleep apnea) Obstructive sleep apnea (adult) (pediatric) Encounter for immunization Need for other specified prophylactic vaccination against single bacterial disease Tobacco use Tobacco use disorder Obesity, Class III, BMI >= 40 Morbid obesity Severe episode of recurrent major depressive disorder, without psychotic features (HCC) Anxiety Anxiety state, unspecified Left hand pain Pain in limb [facility] Diagnosis Anxiety- Primary Anxiety state, unspecified Depression Depressive disorder, not elsewhere classified Back ache Backache, unspecified Tobacco use Tobacco use disorder Routine health maintenance Routine general medical examination at a health care facility Constipation- Primary Unspecified constipation DDD (degenerative disc disease), lumbar Degeneration of lumbar or lumbosacral intervertebral disc Depression Depressive disorder, not elsewhere classified Anxiety Anxiety state, unspecified Palpitation Palpitations Mild persistent asthma without complication- Primary Unspecified asthma Other specified abdominal hernia with obstruction and without gangrene DDD (degenerative disc disease), lumbar Degeneration of lumbar or lumbosacral intervertebral disc Gastroesophageal reflux disease without esophagitis Esophageal reflux Epigastric pain Abdominal pain, epigastric Need for prophylactic vaccination against Streptococcus pneumoniae (pneumococcus)- Primary Need for prophylactic vaccination against streptococcus pneumoniae (pneumococcus) Incisional pain Disturbance of skin sensation Tobacco use Tobacco use disorder Left knee pain Pain in joint, lower leg Bilateral low back pain without sciatica Severe episode of recurrent major depressive disorder, without psychotic features (HCC)- Primary Anxiety Anxiety state, unspecified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 Reason Start Date Expiration Date V isits Requested Visits Authorized [id number] Closed Auto-Generate d Referral 12/13/2023 02/11/2024 1 1 Specialty Diagnoses / Procedures Referred By Contac t Referred To Contact CT IMAGING Diagnoses Encounter for screening for lung cancer Smoker Procedures CT LUNG SCREEN WO IVCON COMPUTED TOMOGRAPHY THORAX LW DOSE LNG CA SCR Melony- Terrence Flores, 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.[employer] [address] [place] [address] [place] [id number] Referral ID Status Reason Start Date Expiration Date Visits Requested Visits Authorized [id number] Pending Review Auto-Generat ed Referral 01/25/2025 1 1 Specialty Diagnoses / Procedures Referred By Contac t Referred To Contact General Surgery Diagnoses Epigastric abdominal pain Nausea Procedures CONSULT TO GENERAL SURGERY OFFICE/OUTPATIENT [facility] 60 MINUTES Marianna Yap, 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.[employer] [address] [place] [address] Referral ID Status Reason Start Date Expiration Date V isits Requested Visits Authorized [id number] Closed PCP Requested Referral 01/08/2024 01/07/2025 1 1 Chief Complaint and Reason for Visit Chief Complaint abd pain Chief Complaint chest pain Additional Source Comments INFORMATION SOURCE (unrecogn ized section and content) DATE CREATED AUTHOR 08/30/2017 [facility] DATE CREATED AUTHOR AUTHOR'S ORGANIZ ATION 09/01/2017 [facility] DATE CREATED AUTHOR AUTHOR'S ORGANIZ ATION 09/06/2017 [facility] DATE CREATED AUTHOR AUTHOR'S ORGANIZ ATION 02/19/2018 [facility] DATE CREATED AUTHOR AUTHOR'S ORGANIZ ATION 06/27/2018 [facility] DATE CREATED AUTHOR AUTHOR'S ORGANIZ ATION 07/20/2020 [facility] DATE CREATED AUTHOR AUTHOR'S ORGANIZ ATION 02/03/2023 [facility] DATE CREATED AUTHOR AUTHOR'S ORGANIZ ATION 03/05/2023 [facility] ([facility]) DATE CREATED AUTHOR AUTHOR'S ORGANIZ ATION 12/30/2023 [facility] DATE CREATED AUTHOR AUTHOR'S ORGANIZ ATION 01/26/2024 [facility] Source Comments (unrecognize d section and content) In the event this informatio n is protected by the Federal Confidentiality of Alcohol and Drug Abuse Patient Records regulations: The Federal rules restrict any use of the information to criminally investigate or prosecute any alcohol or drug abuse patient.[facility] the event this information is protected by the Federal Confidentiality of Alcohol and Drug Abuse Patient Records regulations: The Federal rules restrict any use of the information to criminally investigate or prosecute any alcohol or drug abuse patient.[facility] CenterIn the event this information is protected by the Federal Confidentiality of Alcohol and Drug Abuse Patient Records regulations: The Federal rules restrict any use of the information to criminally investigate or prosecute any alcohol or drug abuse patient.[facility] CenterIn the event this information is protected by the Federal Confidentiality of Alcohol and Drug Abuse Patient Records regulations: The Federal rules restrict any use of the information to criminally investigate or prosecute any alcohol or drug abuse patient.[facility] CenterIn the event this information is protected by the Federal Confidentiality of Alcohol and Drug Abuse Patient Records regulations: The Federal rules restrict any use of the information to criminally investigate or prosecute any alcohol or drug abuse patient.[facility] CenterIn the event this information is protected by the Federal Confidentiality of Alcohol and Drug Abuse Patient Records regulations: The Federal rules restrict any use of the information to criminally investigate or prosecute any alcohol or drug abuse patient.[facility] CenterIn the event this information is protected by the Federal Confidentiality of Alcohol and Drug Abuse Patient Records regulations: The Federal rules restrict any use of the information to criminally investigate or prosecute any alcohol or drug abuse patient.[facility] CenterIn the event this information is protected by the Federal Confidentiality of Alcohol and Drug Abuse Patient Records regulations: The Federal rules restrict any use of the information to criminally investigate or prosecute any alcohol or drug abuse patient.[facility] CenterIn the event this information is protected by the Federal Confidentiality of Alcohol and Drug Abuse Patient Records regulations: The Federal rules restrict any use of the information to criminally investigate or prosecute any alcohol or drug abuse patient.[facility] CenterIn the event this information is protected by the Federal Confidentiality of Alcohol and Drug Abuse Patient Records regulations: The Federal rules restrict any use of the information to criminally investigate or prosecute any alcohol or drug abuse patient.[facility] CenterIn the event this information is protected by the Federal Confidentiality of Alcohol and Drug Abuse Patient Records regulations: The Federal rules restrict any use of the information to criminally investigate or prosecute any alcohol or drug abuse patient.[facility] CenterIn the event this information is protected by the Federal Confidentiality of Alcohol and Drug Abuse Patient Records regulations: The Federal rules restrict any use of the information to criminally investigate or prosecute any alcohol or drug abuse patient.[facility] CenterIn the event this information is protected by the Federal Confidentiality of Alcohol and Drug Abuse Patient Records regulations: The Federal rules restrict any use of the information to criminally investigate or prosecute any alcohol or drug abuse patient.[facility] CenterIn the event this information is protected by the Federal Confidentiality of Alcohol and Drug Abuse Patient Records regulations: The Federal rules restrict any use of the information to criminally investigate or prosecute any alcohol or drug abuse patient.[facility] CenterIn the event this information is protected by the Federal Confidentiality of Alcohol and Drug Abuse Patient Records regulations: The Federal rules restrict any use of the information to criminally investigate or prosecute any alcohol or drug abuse patient.[facility] CenterIn the event this information is protected by the Federal Confidentiality of Alcohol and Drug Abuse Patient Records regulations: The Federal rules restrict any use of the information to criminally investigate or prosecute any alcohol or drug abuse patient.[facility] CenterIn the event this information is protected by the Federal Confidentiality of Alcohol and Drug Abuse Patient Records regulations: The Federal rules restrict any use of the information to criminally investigate or prosecute any alcohol or drug abuse patient.[facility] CenterIn the event this information is protected by the Federal Confidentiality of Alcohol and Drug Abuse Patient Records regulations: The Federal rules restrict any use of the information to criminally investigate or prosecute any alcohol or drug abuse patient.[facility] CenterIn the event this information is protected by the Federal Confidentiality of Alcohol and Drug Abuse Patient Records regulations: The Federal rules restrict any use of the information to criminally investigate or prosecute any alcohol or drug abuse patient.[facility] CenterIn the event this information is protected by the Federal Confidentiality of Alcohol and Drug Abuse Patient Records regulations: The Federal rules restrict any use of the information to criminally investigate or prosecute any alcohol or drug abuse patient.[facility] CenterIn the event this information is protected by the Federal Confidentiality of Alcohol and Drug Abuse Patient Records regulations: The Federal rules restrict any use of the information to criminally investigate or prosecute any alcohol or drug abuse patient.[facility] CenterIn the event this information is protected by the Federal Confidentiality of Alcohol and Drug Abuse Patient Records regulations: The Federal rules restrict any use of the information to criminally investigate or prosecute any alcohol or drug abuse patient.[facility] CenterIn the event this information is protected by the Federal Confidentiality of Alcohol and Drug Abuse Patient Records regulations: The Federal rules restrict any use of the information to criminally investigate or prosecute any alcohol or drug abuse patient.[facility] CenterIn the event this information is protected by the Federal Confidentiality of Alcohol and Drug Abuse Patient Records regulations: The Federal rules restrict any use of the information to criminally investigate or prosecute any alcohol or drug abuse patient.[facility] CenterIn the event this information is protected by the Federal Confidentiality of Alcohol and Drug Abuse Patient Records regulations: The Federal rules restrict any use of the information to criminally investigate or prosecute any alcohol or drug abuse patient.[facility] CenterIn the event this information is protected by the Federal Confidentiality of Alcohol and Drug Abuse Patient Records regulations: The Federal rules restrict any use of the information to criminally investigate or prosecute any alcohol or drug abuse patient.[facility] CenterIn the event this information is protected by the Federal Confidentiality of Alcohol and Drug Abuse Patient Records regulations: The Federal rules restrict any use of the information to criminally investigate or prosecute any alcohol or drug abuse patient.[facility] CenterIn the event this information is protected by the Federal Confidentiality of Alcohol and Drug Abuse Patient Records regulations: The Federal rules restrict any use of the information to criminally investigate or prosecute any alcohol or drug abuse patient.[facility] CenterIn the event this information is protected by the Federal Confidentiality of Alcohol and Drug Abuse Patient Records regulations: The Federal rules restrict any use of the information to criminally investigate or prosecute any alcohol or drug abuse patient.[facility] CenterIn the event this information is protected by the Federal Confidentiality of Alcohol and Drug Abuse Patient Records regulations: The Federal rules restrict any use of the information to criminally investigate or prosecute any alcohol or drug abuse patient.[facility] CenterIn the event this information is protected by the Federal Confidentiality of Alcohol and Drug Abuse Patient Records regulations: The Federal rules restrict any use of the information to criminally investigate or prosecute any alcohol or drug abuse patient.[facility] CenterIn the event this information is protected by the Federal Confidentiality of Alcohol and Drug Abuse Patient Records regulations: The Federal rules restrict any use of the information to criminally investigate or prosecute any alcohol or drug abuse patient.[facility] CenterIn the event this information is protected by the Federal Confidentiality of Alcohol and Drug Abuse Patient Records regulations: The Federal rules restrict any use of the information to criminally investigate or prosecute any alcohol or drug abuse patient.[facility] CenterIn the event this information is protected by the Federal Confidentiality of Alcohol and Drug Abuse Patient Records regulations: The Federal rules restrict any use of the information to criminally investigate or prosecute any alcohol or drug abuse patient.[facility] CenterIn the event this information is protected by the Federal Confidentiality of Alcohol and Drug Abuse Patient Records regulations: The Federal rules restrict any use of the information to criminally investigate or prosecute any alcohol or drug abuse patient.[facility] CenterIn the event this information is protected by the Federal Confidentiality of Alcohol and Drug Abuse Patient Records regulations: The Federal rules restrict any use of the information to criminally investigate or prosecute any alcohol or drug abuse patient.[facility] CenterIn the event this information is protected by the Federal Confidentiality of Alcohol and Drug Abuse Patient Records regulations: The Federal rules restrict any use of the information to criminally investigate or prosecute any alcohol or drug abuse patient.[facility] CenterIn the event this information is protected by the Federal Confidentiality of Alcohol and Drug Abuse Patient Records regulations: The Federal rules restrict any use of the information to criminally investigate or prosecute any alcohol or drug abuse patient.[facility] CenterIn the event this information is protected by the Federal Confidentiality of Alcohol and Drug Abuse Patient Records regulations: The Federal rules restrict any use of the information to criminally investigate or prosecute any alcohol or drug abuse patient.[facility] CenterIn the event this information is protected by the Federal Confidentiality of Alcohol and Drug Abuse Patient Records regulations: The Federal rules restrict any use of the information to criminally investigate or prosecute any alcohol or drug abuse patient.[facility] CenterIn the event this information is protected by the Federal Confidentiality of Alcohol and Drug Abuse Patient Records regulations: The Federal rules restrict any use of the information to criminally investigate or prosecute any alcohol or drug abuse patient.[facility] CenterIn the event this information is protected by the Federal Confidentiality of Alcohol and Drug Abuse Patient Records regulations: The Federal rules restrict any use of the information to criminally investigate or prosecute any alcohol or drug abuse patient.[facility] CenterIn the event this information is protected by the Federal Confidentiality of Alcohol and Drug Abuse Patient Records regulations: The Federal rules restrict any use of the information to criminally investigate or prosecute any alcohol or drug abuse patient.[facility] CenterIn the event this information is protected by the Federal Confidentiality of Alcohol and Drug Abuse Patient Records regulations: The Federal rules restrict any use of the information to criminally investigate or prosecute any alcohol or drug abuse patient.[facility] CenterIn the event this information is protected by the Federal Confidentiality of Alcohol and Drug Abuse Patient Records regulations: The Federal rules restrict any use of the information to criminally investigate or prosecute any alcohol or drug abuse patient.[facility] CenterIn the event this information is protected by the Federal Confidentiality of Alcohol and Drug Abuse Patient Records regulations: The Federal rules restrict any use of the information to criminally investigate or prosecute any alcohol or drug abuse patient.[facility] CenterIn the event this information is protected by the Federal Confidentiality of Alcohol and Drug Abuse Patient Records regulations: The Federal rules restrict any use of the information to criminally investigate or prosecute any alcohol or drug abuse patient.[facility] CenterIn the event this information is protected by the Federal Confidentiality of Alcohol and Drug Abuse Patient Records regulations: The Federal rules restrict any use of the information to criminally investigate or prosecute any alcohol or drug abuse patient.[facility] CenterIn the event this information is protected by the Federal Confidentiality of Alcohol and Drug Abuse Patient Records regulations: The Federal rules restrict any use of the information to criminally investigate or prosecute any alcohol or drug abuse patient.[facility] CenterIn the event this information is protected by the Federal Confidentiality of Alcohol and Drug Abuse Patient Records regulations: The Federal rules restrict any use of the information to criminally investigate or prosecute any alcohol or drug abuse patient.[facility] CenterIn the event this information is protected by the Federal Confidentiality of Alcohol and Drug Abuse Patient Records regulations: The Federal rules restrict any use of the information to criminally investigate or prosecute any alcohol or drug abuse patient.[facility] CenterIn the event this information is protected by the Federal Confidentiality of Alcohol and Drug Abuse Patient Records regulations: The Federal rules restrict any use of the information to criminally investigate or prosecute any alcohol or drug abuse patient.[facility] CenterIn the event this information is protected by the Federal Confidentiality of Alcohol and Drug Abuse Patient Records regulations: The Federal rules restrict any use of the information to criminally investigate or prosecute any alcohol or drug abuse patient.[facility] CenterIn the event this information is protected by the Federal Confidentiality of Alcohol and Drug Abuse Patient Records regulations: The Federal rules restrict any use of the information to criminally investigate or prosecute any alcohol or drug abuse patient.[facility] CenterIn the event this information is protected by the Federal Confidentiality of Alcohol and Drug Abuse Patient Records regulations: The Federal rules restrict any use of the information to criminally investigate or prosecute any alcohol or drug abuse patient.[facility] CenterIn the event this information is protected by the Federal Confidentiality of Alcohol and Drug Abuse Patient Records regulations: The Federal rules restrict any use of the information to criminally investigate or prosecute any alcohol or drug abuse patient.[facility] CenterIn the event this information is protected by the Federal Confidentiality of Alcohol and Drug Abuse Patient Records regulations: The Federal rules restrict any use of the information to criminally investigate or prosecute any alcohol or drug abuse patient.[facility] Reason for Visit (unrecogniz ed section and content) Reason Comments Radiology US Specialty Diagnoses / Procedures Referred By Contac t Referred To Contact BR IMAGING Diagnoses Abnormal mammogram of left breast Procedures US BREAST LTD LEFT US BREAST UNI REAL TIME WITH IMAGE LIMITED Leonid Rice MD [address] [place] [address] Br Imaging [address] [place] [address] Referral ID Status Reason Start Date Expiration Date V isits Requested Visits Authorized [id number] Closed Auto-Generate d Referral 09/11/2023 10/10/2024 1 1 Reason Comments Refill Request Reason Comments FYI-No Action Needed Reason Comments F/U 6 months Specialty Diagnoses / Procedures Referred By Contac t Referred To Contact US IMAGING Diagnoses Epigastric abdominal pain Procedures US ABD RT UPPER QUADRANT US ABDOMINAL REAL TIME W/IMAGE LIMITED Leonid Rice MD [address] [place] [address] Us Imaging Referral ID Status Reason Start Date Expiration Date V isits Requested Visits Authorized [id number] Closed Auto-Generate d Referral 04/02/2021 05/02/2022 1 1 Reason Comments Results Reason Onset Date Comments Refill Request 11/01/2021 Reason Comments Fatigue Weak, dizziness, fat igue x 3 days Reason Comments Abdominal Pain Constipation Reason Comments Follow Up Reason Comments Derm Problem Irritation along yoselin gical line of abdomen from hysterectomy Reason Comments Counseling Reason Comments Consult Cyst on abdomen Specialty Diagnoses / Procedures Referred By Contac t Referred To Contact General Surgery Diagnoses Sebaceous cyst Procedures CONSULT TO GENERAL SURGERY OFFICE/OUTPATIENT [facility] 60-74 MINUTES Leonid Rice MD [address] [place] [address] Referral ID Status Reason Start Date Expiration Date V isits Requested Visits Authorized [id number] Closed PCP Requested Referral 02/11/2022 02/11/2023 1 1 Specialty Diagnoses / Procedures Referred By Contac t Referred To Contact CT IMAGING Diagnoses Smoker Encounter for screening for lung cancer Procedures CT LUNG SCREEN WO IVCON COMPUTED TOMOGRAPHY THORAX LW DOSE LNG CA SCR C- RadhaArcelia de la cruz, 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.[employer] [address] [place] [address] Ct Imaging Referral ID Status Reason Start Date Expiration Date V isits Requested Visits Authorized [id number] Closed Auto-Generate d Referral 02/28/2022 04/29/2022 1 1 Reason Comments Results LDCT Reason Comments Cpap Form Lat OV note Reason Onset Date Comments Refill Request 05/25/2022 Reason Comments 8 month follow-up Reason Comments left hand pain x 2 weeks Reason Onset Date Comments Follow Up Immunizations 11/28/2022 Flu vaccination Reason Onset Date Comments Refill Request 12/02/2022 Reason Comments Vaginal pain RLQ pain Reason Comments Chest Pain Reason Comments Orders Mammogram order mail ed to her home; I verified address as well. Reason Comments Physical wants referral for l eft hand - cyst with decreased mobility x 7 months Reason Comments Orders Patient Question Reason Comments Blood Pressure Reason Comments Results Reason Comments Knee Pain New Specialty Diagnoses / Procedures Referred By Contac t Referred To Contact Orthopedics Diagnoses Chronic pain of left knee Procedures CONSULT TO ORTHOPAEDICS OFFICE/OUTPATIENT NEW HIGH MDM 60 MINUTES Eddie Rodríguez, 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.[employer]PLICATION PACKAGER [address] [place] [address] Referral ID Status Reason Start Date Expiration Date V isits Requested Visits Authorized [id number] Closed PCP Requested Referral 12/05/2023 12/04/2024 1 1 Specialty Diagnoses / Procedures Referred By Contac t Referred To Contact CT IMAGING Diagnoses Smoker Encounter for screening for malignant neoplasm of lung Procedures CT LUNG SCREEN WO IVCON COMPUTED TOMOGRAPHY THORAX LW DOSE LNG CA SCR Melony- Arcelia Garcia, 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[employer] [address] [place] [address] [place] [id number] Referral ID Status Reason Start Date Expiration Date V isits Requested Visits Authorized [id number] Closed Auto-Generate d Referral 12/13/2023 02/11/2024 1 1 Reason Comments Follow Up ct scan Reason Comments Follow Up Reason Comments New Patient Specialty Diagnoses / Procedures Referred By Contac t Referred To Contact General Surgery Diagnoses Epigastric abdominal pain Nausea Procedures CONSULT TO GENERAL SURGERY OFFICE/OUTPATIENT NEW HIGH MDM 60 MINUTES Marianna Yap, 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.[employer] [address] [place] [address] Referral ID Status Reason Start Date Expiration Date V isits Requested Visits Authorized [id number] Closed PCP Requested Referral 01/08/2024 01/07/2025 1 1 Reason Comments PT Eval Specialty Diagnoses / Procedures Referred By Contac t Referred To Contact Physical Therapy / PHYSICAL THERAPY Diagnoses Chronic pain of left knee [M25.562, G89.29] Tear of medial meniscus of left knee, current, unspecified tear type, initial encounter [S83.242A] Procedures NEW RS PT ORTH MSK Smiley De La Paz, DO [address] [place] [address] Ruby Kirkpatrick, PT [address] [place] [address] Referral ID Status Reason Start Date Expiration Date V isits Requested Visits Authorized [id number] Authorized 03/13/2023 03/12/2024 99 99 Care Teams (unrecognized sec tion and content) Marking Clerk Relationship Specialty Start Date End Date Leonid Rice MD [address] [place] [address] PCP - General Internal Medicine 10/09/18 [facility] [address] [place] [address] Pharmacist Pharmacy 10/22/20 Marking Clerk Relationship Specialty Start Date End Date Leonid Rice MD [address] [place] [address] PCP - General Internal Medicine 10/09/18 [facility] [address] [place] [address] Pharmacist Pharmacy 10/22/20 Marking Clerk Relationship Specialty Start Date End Date Leonid Rice MD [address] [place] [address] PCP - General Internal Medicine 10/09/18 Devens Erica, [facility] [address] [place] [address] Pharmacist Pharmacy 10/22/20 Marking Clerk Relationship Specialty Start Date End Date Leonid Rice MD [address] [facility] [place] [address] PCP - General Internal Medicine 10/09/18 DevensAriaErica, [facility] [address] [facility] [place] [address] Pharmacist Pharmacy 10/22/20 Marking Clerk Relationship Specialty Start Date End Date Leonid Rice MD [address] [facility] [place] [address] PCP - General Internal Medicine 10/09/18 DevensAriaErica, [facility] [address] [facility] [place] [address] Pharmacist Pharmacy 10/22/20 Marking Clerk Relationship Specialty Start Date End Date Leonid Rice MD [address] [facility] [place] [address] PCP - General Internal Medicine 10/09/18 DevensErica, [facility] [address] [facility] [place] [address] Pharmacist Pharmacy 10/22/20 Marking Clerk Relationship Specialty Start Date End Date Leonid Rice MD [address] [facility] [place] [address] PCP - General Internal Medicine 10/09/18 DevensErica, [facility] [address] [facility] [place] [address] Pharmacist Pharmacy 10/22/20 Marking Clerk Relationship Specialty Start Date End Date Leonid Rice MD [address] [facility] [place] [address] PCP - General Internal Medicine 10/09/18 Devens, Erica, [facility] [address] [facility] [address] Pharmacist Pharmacy 10/22/20 Marking Clerk Relationship Specialty Start Date End Date Leonid Rice MD [address] [facility] [place] [address] PCP - General Internal Medicine 10/09/18 Erica Vicente, [facility] [address] [facility] [place] [address] Pharmacist Pharmacy 10/22/20 Marking Clerk Relationship Specialty Start Date End Date Leonid Rice MD [address] [facility] [place] [address] PCP - General Internal Medicine 10/09/18 DevensAriaErica, [facility] [address] [facility] [place] [address] Pharmacist Pharmacy 10/22/20 Marking Clerk Relationship Specialty Start Date End Date Leonid Rice MD [address] [facility] [place] [address] PCP - General Internal Medicine 10/09/18 Erica Vicente, [facility] [address] [facility] [place] [address] Pharmacist Pharmacy 10/22/20 Marking Clerk Relationship Specialty Start Date End Date Leonid Rice MD [address] [facility] [place] [address] PCP - General Internal Medicine 10/09/18 DevensErica, [facility] [address] [facility] [place] [address] Pharmacist Pharmacy 10/22/20 Marking Clerk Relationship Specialty Start Date End Date Leonid Rice MD [address] [facility] [place] [address] PCP - General Internal Medicine 10/09/18 DevensErica, [facility] [address] [place] [address] Pharmacist Pharmacy 10/22/20 Marking Clerk Relationship Specialty Start Date End Date Leonid Rice MD [address] [facility] [place] [address] PCP - General Internal Medicine 10/09/18 DevensErica, [facility] [address] [facility] [address] Pharmacist Pharmacy 10/22/20 Marking Clerk Relationship Specialty Start Date End Date Leonid Rice MD [address] [facility] [address] PCP - General Internal Medicine 10/09/18 DevensErica, [facility] [address] [place] [address] Pharmacist Pharmacy 10/22/20 Marking Clerk Relationship Specialty Start Date End Date Leonid Rice MD [address] [facility] [address] PCP - General Internal Medicine 10/09/18 Devens Erica, [facility] [address] [facility] [address] Pharmacist Pharmacy 10/22/20 Marking Clerk Relationship Specialty Start Date End Date Leonid Rice MD [address] [facility] [address] PCP - General Internal Medicine 10/09/18 Erica Vicente, [facility] [address] [place] [address] Pharmacist Pharmacy 10/22/20 Marking Clerk Relationship Specialty Start Date End Date Leonid Rice MD [address] [place] [address] PCP - General Internal Medicine 10/09/18 Devens Erica, [facility] [address] [place] [address] Pharmacist Pharmacy 10/22/20 Marking Clerk Relationship Specialty Start Date End Date Leonid Rice MD [address] [place] [address] PCP - General Internal Medicine 10/09/18 Devens Erica, [facility] [address] [place] [address] Pharmacist Pharmacy 10/22/20 Marking Clerk Relationship Specialty Start Date End Date Leonid Rice MD [address] [place] [address] PCP - General Internal Medicine 10/09/18 Devens Erica, [facility] [address] [place] [address] Pharmacist Pharmacy 10/22/20 Marking Clerk Relationship Specialty Start Date End Date Leonid Rice MD [address] [place] [address] PCP - General Internal Medicine 10/09/18 Devens Erica, [facility] [address] [place] [address] Pharmacist Pharmacy 10/22/20 Marking Clerk Relationship Specialty Start Date End Date Leonid Rice MD [address] [place] [address] PCP - General Internal Medicine 10/09/18 Jules Erica, [facility] [address] [place] [address] Pharmacist Pharmacy 10/22/20 Marking Clerk Relationship Specialty Start Date End Date Leonid Rice MD [address] [place] [address] PCP - General Internal Medicine 10/09/18 DevensErica, [facility] [address] [place] [address] Pharmacist Pharmacy 10/22/20 Team Status: Active Member Role Status Dates Dr. Micki Seth MD Family Provider Active Dr. Leonid Rice MD Primary Care Provider Active Team Status: Inactive Member Role Status Dates Dr. Leonid Rice MD Primary Care Provider Active Dr. Ronak Marte DO Emergency Provider Active Marking Clerk Relationship Specialty Start Date End Date Leonid Rice MD [address] [place] [address] PCP - General Internal Medicine 10/09/18 JulesAria roqueily, [facility] [address] [place] [address] Pharmacist Pharmacy 10/22/20 Marking Clerk Relationship Specialty Start Date End Date Leonid Rice MD [address] [place] [address] PCP - General Internal Medicine 10/09/18 Devens Erica, [facility] [address] [place] [address] Pharmacist Pharmacy 10/22/20 Marking Clerk Relationship Specialty Start Date End Date Leonid Rice MD [address] [place] [address] PCP - General Internal Medicine 10/09/18 Devens Erica, [facility] [address] [place] [address] Pharmacist Pharmacy 10/22/20 Marking Clerk Relationship Specialty Start Date End Date Leonid Rice MD [address] [place] [address] PCP - General Internal Medicine 10/09/18 DevensErica, [facility] [address] [place] [address] Pharmacist Pharmacy 10/22/20 Marking Clerk Relationship Specialty Start Date End Date Leonid Rice MD [address] [place] [address] PCP - General Internal Medicine 10/09/18 DevensErica, [facility] [address] [place] [address] Pharmacist Pharmacy 10/22/20 Marking Clerk Relationship Specialty Start Date End Date Leonid Rice MD [address] [place] [address] PCP - General Internal Medicine 10/09/18 DevensErica, [facility] [address] [place] [address] Pharmacist Pharmacy 10/22/20 Marking Clerk Relationship Specialty Start Date End Date Leonid Rice MD [address] [place] [address] PCP - General Internal Medicine 10/09/18 DevensErica, [facility] [address] [place] [address] Pharmacist Pharmacy 10/22/20 Marking Clerk Relationship Specialty Start Date End Date Leonid Rice MD [address] [place] [address] PCP - General Internal Medicine 10/09/18 DevensErica, [facility] [address] [place] [address] Pharmacist Pharmacy 10/22/20 Marking Clerk Relationship Specialty Start Date End Date Leonid Rice MD [address] [place] [address] PCP - General Internal Medicine 10/09/18 DevensAriaErica, [facility] [address] [place] [address] Pharmacist Pharmacy 10/22/20 Marking Clerk Relationship Specialty Start Date End Date Leonid Rice MD [address] [place] [address] PCP - General Internal Medicine 10/09/18 DevensErica, [facility] [address] [place] [address] Pharmacist Pharmacy 10/22/20 Marking Clerk Relationship Specialty Start Date End Date Leonid Rice MD [address] [place] [address] PCP - General Internal Medicine 10/09/18 DevensErica, [facility] [address] [place] [address] Pharmacist Pharmacy 10/22/20 Marking Clerk Relationship Specialty Start Date End Date Leonid Rice MD [address] [place] [address] PCP - General Internal Medicine 10/09/18 Devens Erica, [facility] [address] [place] [address] Pharmacist Pharmacy 10/22/20 Marking Clerk Relationship Specialty Start Date End Date Leonid Rice MD [address] [place] [address] PCP - General Internal Medicine 10/09/18 Devens Erica, [facility] [address] [place] [address] Pharmacist Pharmacy 10/22/20 Marking Clerk Relationship Specialty Start Date End Date Leonid Rice MD [address] [place] [address] PCP - General Internal Medicine 10/09/18 Devens Erica, [facility] [address] [place] [address] Pharmacist Pharmacy 10/22/20 Marking Clerk Relationship Specialty Start Date End Date Leonid Rice MD [address] [place] [address] PCP - General Internal Medicine 10/09/18 Devens Erica, [facility] [address] [place] [address] Pharmacist Pharmacy 10/22/20 Marking Clerk Relationship Specialty Start Date End Date Leonid Rice MD [address] [place] [address] PCP - General Internal Medicine 10/09/18 JulesErica, [facility] [address] [place] [address] Pharmacist Pharmacy 10/22/20 Marking Clerk Relationship Specialty Start Date End Date Leonid Rice MD [address] [place] [address] PCP - General Internal Medicine 10/09/18 Devens Erica, [facility] [address] [facility] [place] [address] Pharmacist Pharmacy 10/22/20 Marking Clerk Relationship Specialty Start Date End Date Leonid Rice MD [address] [place] [address] PCP - General Internal Medicine 10/09/18 Devens Erica, [facility] [address] [place] [address] Pharmacist Pharmacy 10/22/20 Marking Clerk Relationship Specialty Start Date End Date Leonid Rice MD [address] [place] [address] PCP - General Internal Medicine 10/09/18 Devens Erica, [facility] [address] [place] [address] Pharmacist Pharmacy 10/22/20 Marking Clerk Relationship Specialty Start Date End Date Leonid Rice MD [address] [place] [address] PCP - General Internal Medicine 10/09/18 Devens Erica, [facility] [address] [place] [address] Pharmacist Pharmacy 10/22/20 Marking Clerk Relationship Specialty Start Date End Date Leonid Rice MD [address] [place] [address] PCP - General Internal Medicine 10/09/18 DevensErica, [facility] [address] [place] [address] Pharmacist Pharmacy 10/22/20 Marking Clerk Relationship Specialty Start Date End Date Leonid Rice MD [address] [place] [address] PCP - General Internal Medicine 10/09/18 DevensErica, [facility] [address] [place] [address] Pharmacist Pharmacy 10/22/20 Marking Clerk Relationship Specialty Start Date End Date Leonid Rice MD [address] [place] [address] PCP - General Internal Medicine 10/09/18 DevensErica, [facility] [address] [place] [address] Pharmacist Pharmacy 10/22/20 Marking Clerk Relationship Specialty Start Date End Date Leonid Rice MD [address] [place] [address] PCP - General Internal Medicine 10/09/18 DevensErica, [facility] [address] [place] [address] Pharmacist Pharmacy 10/22/20 Goals (unrecognized section and content) Goals may be documented in a n alternate sectionGoals may be documented in an alternate section No data available for this section FOR RECORDS PERTAINING TO PATIENTS WHO ARE OR HAVE BEEN ENROLLED IN A CHEMICAL DEPENDENCY/SUBSTANCEABUSE PROGRAM, SOME INFORMATION MAY BE OMITTED. This clinical summary was aggregated from multiple sources. Caution should be exercised in using it in the provision of clinical care. This summary normalizes information from multiple sources, and as a consequence, information in this document may materially change the coding, format and clinical context of patient data. In addition, data may be omitted in some cases. CLINICAL DECISIONS SHOULD BE BASED ON THE PRIMARY CLINICAL RECORDS. [facility]. provides no warranty or guarantee of the accuracy or completeness of information in this document.
--- NOTE | 2024-08-25 16:47 | EKG12_ITS ---
Test Reason : SOB Blood Pressure : */* mmHG Vent. Rate : 80 BPM Atrial Rate : 80 BPM P-R Int : 158 ms QRS Dur : 78 ms QT Int : 378 ms P-R-T Axes : 56 22 47 degrees QTcB Int : 435 ms Normal sinus rhythm Normal ECG Confirmed by EULALIA MCCOY, DARRION ([id number]), script editor FABIENNE PINEDA ([id number]) on 08/27/2024 7:45:08 AM Referred By: Confirmed By: DARRION ESTEBAN MD
[2024-08-25 16:55] LABS: Absolute Lymphocyte Count 2.45 X10^3/uL (0.83-4.51); Absolute Neutrophil Count 5.1 X10^3/uL (2.0-7.7); Basophil# 0.04 X10^3/uL; Basophil% 0.5 % (0-1); Eosinophil# 0.31 X10^3/uL; Eosinophils% 3.5 % (0-5); Hematocrit 44.2 % (37-47); Hemoglobin 14.4 g/dL (12.0-15.0); Lymphocyte # 2.45 X10^3/ul (0.83-4.51); Lymphocyte % 27.7 % (19-41); Mean Corp Hgb Conc 32.6 g/dL (32-36); Mean Corpuscular Hgb 29.2 pg (27.0-32.0); Mean Corpuscular Volume 89.7 fL (81-99); Mean Platelet Vol. 11.8 fl (6.2-12.0); Monocyte# 0.95 X10^3/uL; Monocyte% 10.7 % (0-10); NRBC Flagged by Analyzer 0 % (0-5); Neutrophil # 5.06 X10^3/uL (2.7-7.7); Neutrophil % 57.1 % (47-70); Platelet Count 223 K/mm3 (150-450); RBC Distribution Width CV 13.2 % (11.6-14.6); RBC Distribution Width SD 43.5 fl (35.1-43.9); Red Blood Count 4.93 M/mm3 (4.2-5.4); White Blood Count 8.9 K/mm3 (4.4-11.0)
--- NOTE | 2024-08-25 16:55 | RAD_ITS ---
PROCEDURE: CHEST 1 VIEW (PORTABLE) 08/25/2024 REASON FOR EXAM: DYSPNEA TECHNIQUE: Frontal view of the chest. COMPARISON: 01/26/2023 FINDINGS: Mild pulmonary vascular congestion. No focal consolidations. No pleural effusion or pneumothorax. Cardiac silhouette is unchanged. No acute fractures. RAD/Chest 1 View (Portable) IMPRESSION: Mild pulmonary vascular congestion. No focal consolidations. Reading Location: [id number]
[2024-08-25] MEDS: MethylPREDNISolone 125 MG/2 ML Vial IV (17:01)
[2024-08-25] MEDS: Ipratropium/Albuterol Sulfate 3 ML AMPUL.NEB INHALATION ×2 (17:06→20:30)
[2024-08-25] MEDS: Albuterol 2.5 MG/3 ML VIAL.NEB. INHALATION ×3 (17:06→17:15)
[2024-08-25 17:10] LABS: AST(SGOT) 25 U/L (<=31); Alanine Aminotransfer ALT/SGPT 16 U/L (<=34); Alkaline Phosphatase 148 U/L (35-104); Anion Gap 13 (5-15); BUN 10 mg/dL (4-19); BUN/Creat Ratio 12.6 RATIO (10-20); Calcium,Total 9.4 mg/dL (7.6-11.0); Carbon Dioxide 22.2 mmol/L (21.0-32.0); Chloride 106 mmol/L (98-108); Creatinine, Serum 0.83 mg/dL (0.70-1.20); EST Glomerular Filtration Rate 80 (>60); Estimated Creatinine Clearance 73.59 ml/min (50-250); Globulin 3.3 g/dL (2.2-4.2); Glucose 107 mg/dL (70-99); Lipase 8 U/L (13-75); Potassium 3.8 mmol/L (3.3-5.1); Protein, Total 7.3 g/dL (5.9-8.4); Sodium Level 142 mmol/L (133-145); Total Bilirubin 0.34 mg/dL (0.00-1.30)
--- NOTE | 2024-08-25 17:17 | ED.VIS.DYS ---
HPI History of Present Illness Chief Complaint: Abd Pain Informant: patient Narrative Narrative: 63-year-old female presenting to the emergency room with chief complaint of shortness of breath. Patient states she has a history of asthma. She states she is not currently on any medications. She states that her father and then her brother was found in the home. She had to travel to [place] where she has been taking care of family affairs and the . She states that for the past week she has had a progressive worsening shortness of breath and intermittent fevers cough with occasional sputum production. She also notes an epigastric discomfort particularly with eating. She states that the hot weather in [place] does not agree with her health. She returned home today and came to the emergency department. She does not wear supplemental oxygen at home. She denies history of coronary artery disease or congestive heart failure. She is a smoker. [facility] Medical History Tobacco abuse GERD (gastroesophageal reflux disease) Asthma Depression Anxiety Home Medications ?Medication ?Instructions ?Recorded ?Last Taken ?Type fluoxetine 20 mg capsule 20 mg PO QHS 03/24/15 03/23/15 History topiramate 25 mg tablet (Topamax) 25 mg PO QHS 03/24/15 03/23/15 History trazodone 100 mg tablet 200 mg PO QHS 03/24/15 03/23/15 History albuterol sulfate 90 mcg/actuation 2 puff inhalation Q4H PRN PRN Sob 03/25/15 Unknown Rx aerosol inhaler (ProAir HFA) &/Or Wheezing ##1 budesonide 180 mcg/actuation 1 puff inhalation BID ##1 03/25/15 Unknown Rx breath activated powder inhaler (Pulmicort Flexhaler) Allergy/AdvReac Type Severity Reaction Status Date / Time latex Allergy Rash Verified 08/25/24 15:40 chocolate AdvReac Shortness Verified 08/25/24 22:52 of breath Family History Mother Myocardial infarction CVA (cerebral vascular accident) Diabetes Brother Asthma Myocardial infarction Father Hypertension Surgical History History of umbilical hernia repair History of cholecystectomy History of appendectomy Social History household members: none housing: house Smoking Status: Current every day smoker tobacco type: cigarettes alcohol intake: never what type of physical activity do you participate in: none do you feel safe at home: Yes ROS ROS ED Constitutional Constitutional ED: Reports chills and fever(s); Denies sweats or weight loss Eyes Eyes: Denies change in vision or diplopia ENT ENT ED: Denies ear pain, rhinorrhea or sore throat Cardiovascular Cardiovascular: Denies chest pain, orthopnea, palpitations or racing heartbeat Respiratory/Chest Respiratory/Chest: Reports cough, dyspnea and dyspnea on exertion; Denies orthopnea Gastrointestinal Gastrointestinal: Reports abdominal pain; Denies diarrhea, nausea or vomiting Genitourinary Genitourinary ED: Denies dysuria, hematuria or urinary frequency Musculoskeletal Musculoskeletal: Denies arthralgias or myalgias Integumentary Denies abscess or rash Neurologic Neurologic: Denies headache(s) or weakness Psychiatric Psychiatric: Denies anxiety, depression, suicidal ideation or suicidal thoughts Endocrine Endocrinology: Denies polydipsia, polyphagia or polyuria Allergic/Immunologic Allergic/Immunologic ED: Denies mouth swelling, tongue swelling or urticaria EXAM Physical Exam Const Vital Signs: 08/25/24 15:37 08/25/24 15:40 08/25/24 15:55 Temperature 99.7 F H 99.7 F H Temperature Source Oral Oral Pulse Rate 100 100 Respiratory Rate 22 H 22 H Respiratory Effort Short of Breath Labored Respiratory Depth Shallow Respiratory Pattern Tachypnea Blood Pressure 149/97 H 149/97 H Blood Pressure Mean 114 114 Pulse Ox 98 98 Oxygen Delivery Method Room Air Room Air Room Air 08/25/24 16:41 08/25/24 17:00 08/25/24 17:06 Temperature 99.7 F H 99.2 F H Temperature Source Oral Oral Pulse Rate 86 87 88 Respiratory Rate 25 H 26 H 28 H Respiratory Effort Respiratory Depth Respiratory Pattern Tachypnea Blood Pressure 163/86 H 148/93 H Blood Pressure Mean 111 111 Pulse Ox 96 95 Oxygen Delivery Method Room Air Room Air 08/25/24 17:45 08/25/24 18:00 08/25/24 19:00 Temperature 99.2 F H 99.3 F H Temperature Source Oral Oral Pulse Rate 89 98 99 Respiratory Rate 16 22 H 22 H Respiratory Effort Respiratory Depth Respiratory Pattern Blood Pressure 135/79 H 152/73 H 142/56 H Blood Pressure Mean 97 99 84 Pulse Ox 94 95 96 Oxygen Delivery Method Room Air Room Air Room Air 08/25/24 19:00 08/25/24 20:29 08/25/24 20:30 Temperature 99.3 F H Temperature Source Pulse Rate 99 93 102 H Respiratory Rate 21 H 25 H 24 H Respiratory Effort Respiratory Depth Respiratory Pattern Tachypnea Blood Pressure 142/56 H 156/63 H Blood Pressure Mean 84 94 Pulse Ox 97 95 Oxygen Delivery Method Room Air Positive well nourished, well developed and obese General Appearance ED: well developed Nutritional Appearance: obese HEENT Reports normocephalic, head/scalp atraumatic and moist mucous membranes Eyes PERRL and EOMs intact bilaterally Neck no lymphadenopathy, supple and no JVD Resp Resp Narrative: Mild conversational dyspnea. Patient has inspiratory expiratory wheezing. Rhonchi at the bases. Cardio regular rate, regular rhythm and no murmurs Rate: tachycardic GI normal to inspection, nondistended, normoactive bowel sounds and non-tender Palpation: soft Back/Spine no CVA tenderness and normal ROM Extremity normal to inspection General Extremety ED: Negative for edema General Extremity: Negative for edema Neuro oriented x3 and CN's II-XII intact bilaterally Sensorium / Orientation: alert Motor Exam: strength 5/5 throughout Psych mental status grossly normal Mood & Affect: Negative for depressed or tearful Skin no rashes or lesions noted and no wounds MDM MDM MDM Narrative Medical decision making narrative: Differential diagnosis includes but not limited to asthma exacerbation pulmonary embolism viral syndrome pneumonia pleural effusion pancreatitis biliary colic My independent interpretation of the chest x-ray is no acute process. A CTA of the chest was negative for pulmonary embolism or infiltrate. White count is 8.9 hemoglobin 14.4 platelet count of 223. Lipase is 8 alkaline phosphatase 148 glucose 107. Patient received breathing treatments. She also received a dose of Solu-Medrol. Repeat examination she still looks tachypneic around 25 to 30 breaths/min. She however is not hypoxic. We gave her additional DuoNeb and she continues to have expiratory wheezing and increased work of breathing. I spoke with the patient using shared decision making we will observe her in the hospital tonight for asthma exacerbation. Hospitalist was contacted for admission History & Record Review Discussion w/independent historian: Patient Additional record(s) reviewed:: Prior outpatient record, Prior ED visit and Prior labs Lab Data Attestation: I reviewed the patient's lab results. Labs: Laboratory Results - last 24 hr 08/25/24 15:53 WBC 8.9 RBC 4.93 Hgb 14.4 Hct 44.2 MCV 89.7 MCH 29.2 MCHC 32.6 RDW Std Deviation 43.5 RDW Coeff of Bhupendra 13.2 Plt Count 223 MPV 11.8 Immature Gran % (Auto) 0.500 Neut % (Auto) 57.1 Lymph % (Auto) 27.7 Dickenson % (Auto) 10.7 H Eos % (Auto) 3.5 Baso % (Auto) 0.5 Absolute Neuts (auto) 5.1 Absolute Lymphs (auto) 2.45 Nucleated RBC % 0 Sodium 142 Potassium 3.8 Chloride 106 Carbon Dioxide 22.2 Anion Gap 13 BUN 10 Creatinine 0.83 Estim Creat Clear Calc 73.59 Est GFR (MDRD) Non-Af 80 BUN/Creatinine Ratio 12.6 Glucose 107 H Calcium 9.4 Total Bilirubin 0.34 Direct Bilirubin 0.10 AST 25 ALT 16 Alkaline Phosphatase 148 H Total Protein 7.3 Albumin 4.0 Globulin 3.3 Lipase 8 L Radiography Diagnostic Testing: Clinical Impression(s) from Imaging Studies Chest X-Ray 08/25/24 16:55 IMPRESSION: Mild pulmonary vascular congestion. No focal consolidations. Reading Location: [facility] Chest CTA 08/25/24 17:40 IMPRESSION: No acute process. Reading Location: [facility] EKG Initial EKG: Attestation: I personally reviewed and interpreted this EKG as follows: Comments: Normal sinus rhythm ventricular rate of 80 bpm Management Discussion w/another healthcare provider: Hospitalist (Dr. Caro) Discharge Plan Dx/Rx/DC Orders Clinical Impression: Asthma exacerbation, Acute dyspnea Disposition Disposition: Acute Care Hospital [facility] Discharge Date/Time: 08/25/24 21:43
--- NOTE | 2024-08-25 17:40 | CT_ITS ---
PROCEDURE: CTA CHEST W/WO CONTRAST 08/25/2024 REASON FOR EXAM: PULMONARY EMBOLISM TECHNIQUE: CTA CHEST W/WO CONTRAST Multiplanar and multisequence images were obtained. One or more dose reduction techniques were used (e.g., Automated exposure control, adjustment of the mA and/or kV according to patient size, use of iterative reconstruction technique). COMPARISON: 01/26/2023 FINDINGS: Heart size is within normal limits. No significant pericardial effusion or coronary artery calcifications. Normal caliber thoracic aorta without dissection. Normal caliber pulmonary arteries without filling defects. No bulky adenopathy. No acute findings in the upper abdomen. Superficial soft tissues are within normal limits. Central airways are patent. No acute infiltrates, pleural effusion or pneumothorax. No pulmonary mass. No acute osseous abnormality. CT/CTA Chest W/WO Contrast IMPRESSION: No acute process. [facility]
--- NOTE | 2024-08-25 19:28 | ED.RN ---
Called CT regarding pt's CT scan results. Was informed they are in another chart and reading scans slow tonight
--- NOTE | 2024-08-25 20:32 | PCM.HP.STD ---
HPI - General General Date of Admission: 08/25/24 Date of Service: 08/25/24 Chief Complaint: Cough and shortness of breath HPI Narrative JENNIFER BRUNER, is a 63 F who presented to the emergency department at [facility] on 08/25/2024 due to chief complaint of cough and shortness of breath. Patient has a history of COPD and asthma and currently still smokes tobacco. She states her father and then her brother was found in his home. She has been traveling back and forth from [place] taking care of family affairs and the . She reported that for about a week prior to presentation she has had progressively worsening shortness of breath and intermittent fevers, cough, and intermittent clear sputum production. Given the fact that she has not been clinically improving she came to the emergency department. She does not wear oxygen at baseline but is on multiple inhalers consistent with COPD diagnosis. Patient states she is still having some congestion, decreased p.o. intake due to lack of appetite, and myalgias. Vital signs on presentation showed a temperature of 99.7, heart rate was 100, respiratory rate was 22, blood pressure was 149/97 and pulse ox is 98% on room air. CBC is unremarkable other than a monocytosis at 10.7%. Chemistry panel is unremarkable. Lipase is negative at 8. Chest x-ray showed mild pulmonary vascular congestion but no focal infiltrates and CTA of the chest was performed and shows no acute processes. She was given several rounds of nebulizers and IV Solu-Medrol in the emergency department however she remained tachypneic, mildly tachycardic, and dyspneic. She did not require oxygen at rest or with exertion but given her symptoms she will be admitted as observation with anticipated hospitalization less than 2 midnights. [facility] Medical History Tobacco abuse GERD (gastroesophageal reflux disease) Asthma Depression Anxiety Home Medications ?Medication ?Instructions ?Recorded ?Last Taken ?Type fluoxetine 20 mg capsule 20 mg PO QHS 03/24/15 03/23/15 History topiramate 25 mg tablet (Topamax) 25 mg PO QHS 03/24/15 03/23/15 History trazodone 100 mg tablet 200 mg PO QHS 03/24/15 03/23/15 History albuterol sulfate 90 mcg/actuation 2 puff inhalation Q4H PRN PRN Sob 03/25/15 Unknown Rx aerosol inhaler (ProAir HFA) &/Or Wheezing ##1 budesonide 180 mcg/actuation 1 puff inhalation BID ##1 03/25/15 Unknown Rx breath activated powder inhaler (Pulmicort Flexhaler) Allergy/AdvReac Type Severity Reaction Status Date / Time latex Allergy Rash Verified 08/25/24 15:40 Family History Mother Myocardial infarction CVA (cerebral vascular accident) Diabetes Brother Asthma Myocardial infarction Father Hypertension Surgical History History of umbilical hernia repair History of cholecystectomy History of appendectomy Social History household members: none housing: house Smoking Status: Current every day smoker tobacco type: cigarettes alcohol intake: never what type of physical activity do you participate in: none do you feel safe at home: Yes ROS Constitutional Constitutional: Reports anorexia, chills, fatigue and malaise; Denies change in weight, fever(s), night sweats, weakness or other Eyes Eyes: Reports other Details: Eye redness ; Denies blurry vision, change in eye color, change in vision, discharge from eye(s), double vision, erythema, eye pain or loss of vision ENT HEENT: Reports nasal congestion; Denies abnormal hearing, dysphagia, ear pain, epistaxis, headache(s), hearing loss, nasal discharge, post nasal drip, sinus pressure, sore throat or other Cardiovascular Cardiovascular: Reports dyspnea on exertion; Denies chest pain, claudication, edema, lightheadedness, orthopnea, palpitations, paroxysmal nocturnal dyspnea, rapid heart rate, syncope or other Respiratory/Chest Respiratory/Chest: Reports cough, dyspnea, shortness of breath at rest, shortness of breath with exertion and wheezing; Denies excessive phlegm production, hemoptysis, productive cough or other Gastrointestinal Gastrointestinal: Denies abdominal pain, coffee ground emesis, constipation, diarrhea, dyspepsia, hematemesis, hematochezia, loose stools, melena, nausea, vomiting or other Genitourinary Genitourinary: Denies burning urination, difficulty urinating, dysuria, hematuria, nocturia, urinary frequency, urinary hesitancy, urinary incontinence, urinary urgency or other Musculoskeletal Musculoskeletal: Reports myalgias; Denies arthralgias, back pain, joint pain, joint stiffness, joint swelling, neck pain or other Neurologic Neurologic: Denies abnormal gait, abnormal speech, confusion, disequilibrium, dizziness, focal weakness, headache(s), numbness, paresthesias, seizure-like activity, seizures, syncope, tingling, tremor(s) or other Psychiatric Psychiatric: Reports anxiety and depression; Denies homicidal ideation, suicidal ideation or other Endocrine Endocrinology: Denies change in body appearance, cold intolerance, excessive sweating, heat intolerance, polydipsia, polyuria or other Hematologic/Lymphatic Hematologic/Lymphatic: Denies anemia, easy bleeding, easy bruising, lymphadenopathy or other Allergic/Immunologic Allergic/Immunologic: Reports asthma; Denies rhinitis, hives, eczemia or other Vital Signs Vital Signs Vital Signs: 08/25/24 15:37 08/25/24 15:40 08/25/24 15:55 Temperature 99.7 F H 99.7 F H Temperature Source Oral Oral Pulse Rate 100 100 Respiratory Rate 22 H 22 H Respiratory Effort Short of Breath Labored Respiratory Depth Shallow Respiratory Pattern Tachypnea Blood Pressure 149/97 H 149/97 H Blood Pressure Mean 114 114 Pulse Ox 98 98 Oxygen Delivery Method Room Air Room Air Room Air 08/25/24 16:41 08/25/24 17:00 08/25/24 17:06 Temperature 99.7 F H 99.2 F H Temperature Source Oral Oral Pulse Rate 86 87 88 Respiratory Rate 25 H 26 H 28 H Respiratory Effort Respiratory Depth Respiratory Pattern Tachypnea Blood Pressure 163/86 H 148/93 H Blood Pressure Mean 111 111 Pulse Ox 96 95 Oxygen Delivery Method Room Air Room Air 08/25/24 17:45 08/25/24 18:00 08/25/24 19:00 Temperature 99.2 F H 99.3 F H Temperature Source Oral Oral Pulse Rate 89 98 99 Respiratory Rate 16 22 H 22 H Respiratory Effort Respiratory Depth Respiratory Pattern Blood Pressure 135/79 H 152/73 H 142/56 H Blood Pressure Mean 97 99 84 Pulse Ox 94 95 96 Oxygen Delivery Method Room Air Room Air Room Air 08/25/24 19:00 08/25/24 20:29 Temperature 99.3 F H Temperature Source Pulse Rate 99 93 Respiratory Rate 21 H 25 H Respiratory Effort Respiratory Depth Respiratory Pattern Blood Pressure 142/56 H 156/63 H Blood Pressure Mean 84 94 Pulse Ox 97 95 Oxygen Delivery Method Room Air Weight Weight: 95.481 kg Body Mass Index (BMI) 41.1 Physical Exam Const alert, oriented x3, no apparent distress and well nourished; Negative for average body habitus or healthy appearing Constitutional Narrative: Obese, upper middle-aged, female, lying in bed, appears comfortable, no signs of respiratory distress but she is a bit tachypneic, does not appear toxic General Appearance: cooperative HEENT normocephalic, head/scalp atraumatic, hearing grossly normal bilaterally and moist oral mucous membranes HEENT Narrative: Mallampati 3, no thrush Eyes conjunctivae normal Eyes Narrative: Injected sclera bilaterally Neck no lymphadenopathy and supple Neck Narrative: Trachea midline, neck is short and thick Resp No normal respiratory effort, no retractions, no use of accessory muscles and No clear to auscultation bilaterally Resp Narrative: Very coarse diffuse scattered end expiratory wheezes, tachypnea with no retractions or accessory muscle use Auscultation: wheezes; Negative for crackles or rhonchi Cardio regular rhythm, S1 normal heart sound, S2 normal heart sound, no rub, no gallops and no clicks; Negative for regular rate or no murmurs Cardio Narrative: Mild tachycardia, 3 out of 6 systolic murmur loudest at right upper sternal border GI normal to inspection, nondistended, normoactive bowel sounds, soft to palpation and non-tender GI Narrative: Protuberant abdomen Extremity no clubbing, cyanosis or edema Extremity Narrative: 2+ pedal and radial pulses Neuro oriented x3, moves all extremities and no focal motor deficits Speech: speech normal Psych Psych Narrative: Affect is flat mood seems depressed Results Lab / Micro Data 08/25/24 15:53 08/25/24 15:53 Labs: Laboratory Results - last 24 hr 08/25/24 15:53: WBC 8.9, RBC 4.93, Hgb 14.4, Hct 44.2, MCV 89.7, MCH 29.2, MCHC 32.6, RDW Std Deviation 43.5, RDW Coeff of Bhupendra 13.2, Plt Count 223, MPV 11.8, Immature Gran % (Auto) 0.500, Neut % (Auto) 57.1, Lymph % (Auto) 27.7, Bureau % (Auto) 10.7 H, Eos % (Auto) 3.5, Baso % (Auto) 0.5, Absolute Neuts (auto) 5.1, Absolute Lymphs (auto) 2.45, Nucleated RBC % 0, Sodium 142, Potassium 3.8, Chloride 106, Carbon Dioxide 22.2, Anion Gap 13, BUN 10, Creatinine 0.83, Estim Creat Clear Calc 73.59, Est GFR (MDRD) Non-Af 80, BUN/Creatinine Ratio 12.6, Glucose 107 H, Calcium 9.4, Total Bilirubin 0.34, Direct Bilirubin 0.10, AST 25, ALT 16, Alkaline Phosphatase 148 H, Total Protein 7.3, Albumin 4.0, Globulin 3.3, Lipase 8 L Micro: Microbiology 08/25/24 17:48 Mucosa - Nose SARS-CoV-2, Influenza & RSV (PCR) - Final Imaging Radiology Impression Chest X-Ray 08/25/24 16:55 IMPRESSION: Mild pulmonary vascular congestion. No focal consolidations. Reading Location: [id number] Chest CTA 08/25/24 17:40 IMPRESSION: No acute process. Reading Location: [facility] Assessment & Plan Assessment/Plan (1) Acute dyspnea: (2) Viral pneumonia: (3) Tachypnea: (4) Tobacco abuse: (5) COPD with acute exacerbation: PLAN: Plan Dyspnea, tachypnea, and Wheezing with COPD exacerbation 2/2 Viral Pneumonia - Patient not hypoxic and requiring oxygen at this point but is markedly tachypneic and having considerable wheezing therefore will admit as observation -Imaging is relatively unremarkable - Continue to monitor oxygen needs and would obtain ambulatory pulse ox prior to discharge - Check respiratory viral panel - COVID/flu/RSV is negative -While also getting give her check sputum culture - Start Solu-Medrol 40 every 8 - Scheduled and as needed nebulizers - Mucinex 1200 p.o. twice daily - I-S - Acapella COPD - Patient is not oxygen dependent at baseline - Will hold outpatient inhalers and restart at discharge - Recommend outpatient follow-up with pulmonary medicine - Patient would benefit from outpatient PFTs and 6-minute walk test GERD - Patient is currently not on any medication for acid reflux next-monitor for symptoms specially with steroid use Seizures -continue topamax Depression/anxiety - Continue home fluoxetine - Continue home trazodone next-continue as needed Xanax Morbid obesity - Recommend weight loss - Will monitor nocturnal pulse ox secondary to concern the patient may have obstructive sleep apnea baseline - BMI is 41.1 - Complicates treatment, prognosis, outcomes Tobacco abuse - Nicotine replacement therapy 21 mcg patch - Recommend cessation DVT prophylaxis - Subcu Lovenox 40 twice daily due to BMI greater than 40 CODE STATUS - Full code as verified prior to admission Charges/Coding Visit Charges Inpatient E&M: 47905 Init Hosp L2
--- OUTSIDE RECORDS SUMMARY | 2024-08-25 20:58 | XMS RPT_ITS | CCD ---
Author Organization [facility] Care Team Providers Care Motor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 Name Role Phone GARCIA, KIARRA Unavailable Unavailable NO FAMILY DOCTOR, NO FAMILY DOCTOR Unavailable Unavailable GARCIA, KIARRA Unavailable Unavailable NO FAMILY DOCTOR, NO FAMILY DOCTOR Unavailable Unavailable DOTTIE, YANELIS A Unavailable Unavailable MHNCKD-VU-PHVWTL-AND-DENTISTRY, DOCTOR Unavailab le Unavailable DOTTIE, YANELIS A Unavailable Unavailable FNRRCP-GI-IEHLQX-AND-DENTISTRY, DOCTOR Unavailab le Unavailable DOTTIE, YANELIS A Unavailable Unavailable ZGOSXD-IN-YEFTXG-AND-DENTISTRY, DOCTOR Unavailab le Unavailable SPRINGER, ESTELA Primary [...] Rice MD, Leonid Umaña Primary Care Provider [facility], Erica Unavailable Dwayne MCCOY, Leonid Umaña Primary Care Provider [facility], Erica Unavailable [facility], Erica Unavailable Dwayne MCCOY, Leonid Umaña Primary Care Provider [facility], Erica Unavailable Dwayne, Leonid Primary Care Unavailable [...] Latex; Translations: [LATEX] Substance Allergy 4 Itching [facility] Repository NSAIDs (4 sources) Diclofenac Drug Allergy 6 Other: See Comments [facility] (20 sources) Diclofenac; Translations: [DICLOFENAC SODIUM] Drug Allergy 6 Other: See Comments [facility] Work Phone: (20 sources) Latex; Translations: [LATEX] Drug Allergy 4 Itching [facility] (1 source) Latex Drug allergy (disorder) 3 [facility] Repository (1 source) Contrast media; Translations: [iodinated radiocontrast agents] Drug allergy [facility] Medications Current Medications Medication Drug Class(es) Dates Sig (Normalized) Sig (Original) [id number] 200 actuat albuterol 0.09 mg/actuat metered dose [...] once daily. Noble Gilbert CNP at the [facility]. 03/02/2023 Active Start: 03-24-2015 End: 03-02-2023 take [...] once daily. Noble Gilbert CNP at the [facility]. 30 actuat fluticasone furoate 0.2 mg/actuat / [...] on above: Take 2 tablets by mo [facility] daily at bedtime. Noble Gilbert CNP, Counseling [...] Chemical Allergen Start: 01-18-2024 End: 01-18-2024 1 Carlin, TOPICAL, DIRECTED, Starting on Divina 01/18/24 at [...] Comment on above: Take 1 tablet by [facility] twice daily. calcium chloride 0.0014 meq/ml / [...] on above: Take 1 capsule by mo [facility] daily before breakfast. polyethylene glycol 3350 87494 mg powder for oral solution (20 sources) Osmotic Laxative Start: 05-31-2022 End: 01-08-2024 polyethylene glycol 3350 (MIRALAX) 17 gram/dose powder Indications: Constipation, unspecified constipation type Take 17 g by mouth once daily as needed for constipation. 850 g 2 05/31/2022 01/08/2024 Discontinued (Discontinued by Patient) Start: 11-29-2021 End: 05-31-2022 polyethylene glycol 3350 ([place] RALAX) 17 gram/dose powder Take once daily, mix in 4 to 8 ounces of water 235 g 2 11/29/2021 05/31/2022 Discontinued Comment on above: Take once daily, mix in 4 to 8 ounces of water Take 17 g by mouth o nce daily as needed for constipation. polyethylene glycol 3350 292192 mg / potassium chloride 2970 mg / sodium bicarbonate 6740 mg / sodium chloride 5860 mg / sodium sulfate 48435 mg powder for oral solution (1 source) [...] [Obesity, Class III, BMI 40-49.9 (morbid obesity) ([facility])] Onset: 04-03-2019 Chronic Other screening for suspected [...] sources) NAUSEA, EPIGASTRIC PAIN R11.0, R10.13 (CPT 46658); Translations: [NAUSEA, EPIGASTRIC PAIN R11.0, R10.13 (CPT 40028)] Onset: 04-10-2018 Unclassified (2 sources) LOSS OF APPETITIE, COLON CA SCREENING R63.0, Z12.11 (CPT G0121, 24202); Translations: [LOSS OF APPETITIE, COLON CA SCREENING R63.0, Z12.11 (CPT G0121, 42862)] Onset: 01-09-2018 Past or Other Problems Problem [...] Test Name Value Interpretation Reference Range Facility [id number] 01-18-2024 [id number] HNO ID: [id number] Author: AMIRA WIGGINS RN Service: ? Author Type: Registered Nurse Type: [id number] Filed: 01/18/2024 09:27 Note Text: The patient received a copy of EGD discharge instructions that contain information for how to contact the physician who performed the procedure and when to seek medical care. Normal [facility] EGD Study observation [place] 01-18-2024 [facility] Gastrointestinal Endoscopy Patient Name: Jennifer Mcmullen Procedure [...] be scheduled. Procedure Code(s): --- Professional --- 10237, Esophagogastroduodenos copy, flexible, transoral; with biopsy, single or multiple Diagnosis Code(s): --- Professional --- R10.13, Epigastric pain R11.0, Nausea CPT copyright 2020 [employer]. All rights reserved. The codes documented in this report are preliminary and upon package collector review may be revised to meet current compliance requirements. Attending Participation: I personally performed the entire procedure. Scope In: 9:07:47 AM Scope Out: 9:11:18 AM MD Zachery Lund MD 01/18/2024 9:15:51 AM This report has been sign (more content not included)... PROVATION [facility] Radiology Study observation (narrative) [facility] HISTORY PHYSICALon HISTORY PHYSICAL HNO ID: [id number] Author: ZACHERY TOUSSAINT MD Service: General Surgery [...] back pain 05/27/2014 Work injury 2006 Depression [facility] Diabetes mellitus (HCC) Disc slipped disc in [...] neg. internal hemorrhoids. lax anal tone. Gi[facility]anna [facility] COLONOSCOPY FLX DX W/COLLJ SPEC WHEN PFRMD 06/12/2014 Colonoscopy out pt [facility] EGD 04/10/2018 Hpylori negative - Gi[facility]anna [facility] ESOPHAGOGASTRODUODENOS COPY TRANSORAL DIAGNOSTIC 06/12/2014 EGD outpt [facility] HERNIA REPAIR HX 12/01/2011 TOTAL ABDOMINAL [...] Brother Seizures Brother Coronary Artery Disease Brother [place] REVIEW OF SYMPTOMS: The review of systems [...] are an (more content not included)... Normal [facility] NURSING PROGon 01-18-2024 NURSING PROG HNO ID: [id number] Author: AMIRA WIGGINS RN Service: ? Author Type: Registered Nurse Type: Nursing Progress Note Filed: 01/18/2024 09:25 Note Text: pt arrived to phase 2 resting on left side. Daughter at bedside. SR up x 2, call light in reach. Amira Wiggins RN Normal [facility] SURGICAL PATHOLOGYon 024 ADDENDUM 1: Normal [facility] Comment on above: Order Comment: Speci men Type: TISSUE SPECIMENOrdering Facility: [facility] Address: [address] [place] [address] Result Comment: Give n the background of chronic gastritis a Helicobacter pylori immunostain was performed on block A1 and is negative for Helicobacter pylori organisms. Laboratory Developed Test (LDT) Disclaimer: Performance characteristics of immunohistochemical, immunofluorescent and chromogenic in-situ hybridization tests have been determined by the performing laboratory within [facility]???s Marcello Clark Pathology and Laboratory Medicine Department ([facility], [facility], [facility], [facility], [facility], or [facility]) in a manner consistent with CLIA requirements. [...] at 5:41 PM Performed By: #### S ####[facility] LABCLIA [id number] [address] LABCLIA [id number] [address] CASE REPORT Normal [facility] Comment on above: Order Comment: Speci men Type: TISSUE SPECIMENOrdering Facility: [facility] Address: [address] [place] [address] Result Comment: Surg [facility] Pathology Report Case: [id number] Authorizing Provider: Zachery Toussaint MD Collected: 01/18/2024 09:09 AM Ordering Location: Ambulatory Surgery Received: 01/18/2024 01:10 PM Pathologist: Sunshine Burdick MD Specimens: A) - Stomach, Antrum, Biopsy, Antral bx for H/H B) - Esophagogastric Junction, Biopsy C) - Esophagus, Mid, Biopsy D) - Small Bowel, Duodenum, Biopsy Performed By: #### S ####[facility] LABCLIA [id number] [address] LABCLIA [id number] [address] FINAL DIAGNOSIS Normal [facility] Comment on above: Order Comment: Speci men Type: TISSUE SPECIMENOrdering Facility: [facility] Address: [address] [place] [address] Result Comment: A. S tomach, antrum, biopsy: [...] no diagnostic abnormalities. Performed By: #### S ####[facility] LABCLIA [id number] [address] LABCLIA [id number] [address] FINAL PERFORMING LAB Normal [facility] Comment on above: Order Comment: Speci men Type: TISSUE SPECIMENOrdering Facility: [facility] Address: [address] [place] [address] Result Comment: Diag nostic interpretation performed at [facility], [address] [place] [address] CLIA# [id number] Supervisor Machining: Yimi Rossi M.D. Performed By: #### S ####[facility] LABCLIA [id number] [address] LABCLIA [id number] [address] GROSS DESCRIPTION Normal [facility] Comment on above: Order Comment: Speci men Type: TISSUE SPECIMENOrdering Facility: [facility] Address: [address] [place] [address] Result Comment: A. S tomach, Antrum, Biopsy [...] Received in formalin are two pieces of benito, soft tissue aggregating to 1.0 x 0.3 x 0.2 cm. Totally submitted in one cassette. Gross examination performed at [facility], [address] [place] [address] JT 01/18/2024 11:15 PM Performed By: #### S ####[facility] LABCLIA [id number] [address] LABCLIA [id number] [address] Upper GI endoscopyon 11-07-2 024 Upper GI endoscopy [place] [facility] Gastrointestinal Endoscopy Patient Name: Jennifer Mcmullen Procedure [...] be scheduled. Procedure Code(s): --- Professional --- 54025, Esophagogastroduodenos copy, flexible, transoral; with biopsy, single or multiple Diagnosis Code(s): --- Professional --- R10.13, Epigastric pain R11.0, Nausea CPT copyright 2020 [employer]. All rights reserved. The codes documented in this report are preliminary and upon package collector review may be revised to meet current compliance requirements. Attending Participation: I personally performed the entire procedure. Scope In: 9:07:47 AM Scope Out: 9:11:18 AM MD Zachery Lund MD 01/18/2024 9:15:51 AM This report has been signed electronically by Zachery Toussaint MD Number of Addenda: 0 Note Initiated On: 01/18/2024 8:55 AM Estimated Blood Loss: Estimated blood loss was minimal. Normal [facility] [id number] 01-16-2024 [id number] HNO ID: [id number] Author: RUBY KIRKPATRICK PT Service: ? Author Type: Physical Therapist Type: [id number] Filed: 01/16/2024 18:00 Note Text: [facility] Rehabilitation and Sports Therapy Physical Therapy Plan of Care Certification Patient Name: Jennifer Mcmullen : 1960 [facility] #: [id number] Date: 01/16/2024 To: Smiley De La Paz,* From Therapist: Ruby Kirkpatrick PT RE: Patient Certification/ Recertification Your review, approval and electronic signature are required in order to comply with Payor: [facility] MEDICAID / Plan: [facility] MEDICAID / Product Type: Medicaid / [...] Goals for Episode of Care: established 01/16/24 [place] in home exercise program. Patient will decrease [...] Planned: 4 Planned Treatment Interventions: Therapeutic exercise (67341), Neuromuscular re-education (54714), Manual therapy (62473), Therapeutic activities (42328), Self-senior care management (98279), Gait Training (86877), Patient/Family/Caregiv er Education, Body Mechanics Training, General [...] reviewed the treatment plan for Jennifer Mcmullen, [facility]# [id number] for the period of 01/16/24 -- 02/13/24, established on 01/16/2024. Signature certifies the need for therapy services. Normal [facility] CNTHERAPYon 01-16-2024 CNTHERAPY OT/PT/Speech Visit (PTWS) JENNIFER RAMIREZ ([id number]) 1960 F Date Time Provider Department 01/16/24 1:15 PM RUBY KIRKPATRICK PTWS Date Time Provider Department Center 01/16/2024 1:15 PM [id number], BRENT PTWS [facility] Reason for Visit: [...] J45.41. Nebulizer and supplies. Face mask preferred. Rn Surgical Pcu: Addendum Therapy (PT/OT/Speech/Resp) ID: [id number] 01/16/2024 5:50 PM Author: RUBY KIRKPATRICK Signed by RUBY KIRKPATRICK PT on 01/16/2024 at 5:51 PM * * * This document replaces document [id number] * * * Document text: Program_ID:[id number] Access Code: [email or web address] URL: [email or web address]/ Date: 01-16-2024 Prepared By: Ruby Kirkpatrick Program [...] 2 sets - 10 reps -- Normal [facility] THERAPY NTon 01-16-2024 THERAPY NT HNO ID: [id number] Author: RUBY KIRKPATRICK PT Service: ? Author Type: Physical Therapist Type: Therapy (PT/OT/Speech/Resp) Filed: 01/16/2024 17:51 Note Text: Program_ID:[id number] Access Code: [email or web address] URL: [email or web address] Date: 01-16-2024 Prepared By: Ruby Kirkpatrick Program [...] - 2 sets - 10 reps Normal [facility] CNOVon 01-08-2024 CNOV Office Visit (GENSWS ) JENNIFER RAMIREZ ([id number]) 1960 F Date Time Provider Department 01/08/24 [...] back pain 05/27/2014 Work injury 2006 Depression [facility] Diabetes mellitus (HCC) Disc slipped disc in [...] neg. internal hemorrhoids. lax anal tone. [facility] COLONOSCOPY FLX DX W/COLLJ SPEC WHEN PFRMD 06/12/2014 Colonoscopy out pt [facility] EGD 04/10/2018 Hpylori negative - Giovanna in [facility] ESOPHAGOGASTRODUODENOS COPY TRANSORAL DIAGNOSTIC 06/12/2014 EGD outpt [facility] HERNIA REPAIR HX 12/01/2011 TOTAL ABDOMINAL [...] Brother Seizures Brother Coronary Artery Disease Brother [place] REVIEW OF SYMPTOMS: The review of systems data was entered by the nurse and reviewed by me There are no exam notes on file for this visit. PHYSICAL EXAMINATION: General: The patient is 63 year old female, well nourished, well hydrated in no acute distress. The patient is oriented to time, place, and person. VITALS: Blood pressure 116 (more content not included)... Normal [facility] CNOV Office Visit (INTMWS ) JENNIFER RAMIREZ ([id number]) 1960 F Date Time Provider Department 01/08/24 11:00 AM MARIANNA YAP INTMWS During your visit today, we recorded the following information about you: Pulse Respiration Blood pressure Weight 76/minute 14/minute 124/82 96.6 kg Marianna Yap, FILTER WASHER AND PRESSER.BARREL INSPECTOR 01/08/2024 11:34 AM Signed CC: Patient presents with: Follow Up: [facility] Jennifer Mcmullen is a 63 year [...] back pain 05/27/2014 Work injury 2006 Depression [facility] Diabetes mellitus (HCC) Disc slipped disc in back Fracture of right ankle Head injury Helicobacter pylori infection 09/12/2016 Hernia, hiatal Hyperglycemia 2010 Insomnia JOSSELIN (obstructive sleep apnea) 02/25/2019 Post-traumatic headache 01/16/2014 Postmenopausal Prediabetes 04/08/2019 PTSD (post-traumatic stress disorder) Tobacco use PAST SURGICAL HISTORY Procedure Laterality Date APPENDECTOMY 2012 Home SECTION HX 1980 x 2 CHOLECYSTECTOMY 1989 COLONOSCOPY 01/10/2018 Random bx neg. internal hemorrhoids. lax anal tone. Giovanna in [facility] COLONOSCOPY FLX DX W/COLLJ SPEC WHEN PFRMD 06/12/2014 Colonoscopy out pt [facility] EGD 04/10/2018 Hpylori negative - Joseliney in [facility] ESOPHAGOGASTRODUODENOS COPY TRANSORAL DIAGNOSTIC 06/12/2014 EGD outpt [facility] HERNIA REPAIR HX 12/01/2011 TOTAL ABDOMINAL [...] Brother Seizures Brother Coronary Artery Disease Brother [place] Social History Tobacco Use Smoking status: Every [...] guarding or (more content not included)... [facility] [facility] HNO ID: [id number] Author: MARYBETH TY CT Service: Radiology Author [...] PATIENT PRESENTS WITH AN IMPLANTABLE OR ATTACHED LIBRARY CONSULTANT: No RADIOLOGY DEPARTMENT: CT; Exam(s) Completed: Lung Screening PERIPHERAL IV DATA: Not applicable SIGNED BY: CAMILLE Harley December 27, 2023 2:[address] [facility] CNOVon 12-27-2023 CNOV Office Visit ([facility] ) JENNIFER RAMIREZ ([id number]) 1960 F Date Time Provider Department 12/27/23 2:30 PM TERRENCE FLORES [facility] During your visit today, we recorded the following information about you: Pulse Blood pressure Weight 90/minute 116/76 97.6 kg Terrence Flores APRN.BARREL INSPECTOR 12/29/2023 10:23 AM Signed LUNG SCREENING ANNUAL [...] which included preparing to see the patient, [id number] patient care, completing clinical documentation, performing a medically appropriate examination, counseling and educating the patient/family/caregiv er, ordering medications, tests, or procedures, communicating with other HCPs (not separately reported), independently interpreting results (not separately reported), communicating results to the patient/family/caregiv er, and care coordination (not separately reported). Terrence Flores APRN.[facility] December 27, 2023 12:08 PM History [...] Breo and spiriva daily. Modified Medical Research [place] Dyspnea Scale (MMRC) (more content not included)... Normal [facility] Office Visit (ORMDNA ) JENNIFER RAMIREZ ([id number]) 1960 F Date Time Provider Department 12/27/23 [...] once daily. Noble Gilbert CNP at the [facility]. albuterol (PROVENTIL) 2.5 mg /3 mL (0.083 %) nebulizer solution Use 3 mL via nebulizer every 4 hours as needed for wheezing/shortness of breath. polyethylene glycol 3350 (MIRALAX) 17 gram/dose powder Take 17 g by mouth once daily as needed for constipation. traZODone (DESYREL) 100 mg tablet Take 2 tablets by mouth daily at bedtime. Noble Gilbert, BARREL INSPECTOR, [facility]. tiotropium bromide (SPIRIVA RESPIMAT) 2.5 [...] present Swel (more content not included)... Normal [facility] CT Chest for screening WO co ntraston 12-27-2023 IMPRESSION: LungRADS category: 1 LungRADS modifier: None LungRADS 0 reason: n/a Recommendations: Continue annual screening with LDCT in 12 months. Other actionable findings: - ========= Reference: [employer]. Lung CT Screening Reporting and Data System (Lung-RADS). Available at: http://www.acr.org/Andrew lity-Safety/Resources/ LungRADS Safety Glass Installer: AMADO Transcribe Date/Time: Dec 27 2023 4:14P Dictated by : ILEANA MARQUEZ MD This examination was interpreted and the report reviewed and electronically signed by: ILEANA MARQUEZ MD on Dec 27 2023 4:28PM [facility] RADIOLOGY * * *Final Report* * * DATE OF EXAM: Dec 27 2023 2:44PM [facility] [place] LUNG SCREEN WO IVCON [...] without contrast. MQ: CTLCS_6 Patient characteristics: * Qsxt-pg-Gmpvy: 1960; Age at exam: 63 years * Gender: Female * Lung Disease: Asymptomatic (no signs or symptoms of lung disease) * Number of Pack Years: 21.9 * Current smoker (=0) or Number of Years since Quit: 0 * Ordering provider and NPI: ARCELIA GARCIA [id number] * Interpreting radiologist and NPI: John [id number] Exam acquisition parameters: * Exam Date: 12/27/2023 2:44 PM * Site: [facility] * * CT System Milieu Therapist: 2 Minutes * CT System Model: Footbalistic * Tube Current-Time (mA-sec): 60 * Peak [...] None Localizer images: No additional findings. - [facility] Provider, [facility] - 12/27/2023 * * *Final Report* * * DATE OF EXAM: Dec 27 2023 2:44PM [facility] [place] LUNG SCREEN WO IVCON [...] without contrast. MQ: CTLCS_6 Patient characteristics: * Orkg-ob-Mdpcr: 1960; Age at exam: 63 years * Gender: Female * Lung Disease: Asymptomatic (no signs or symptoms of lung disease) * Number of Pack Years: 21.9 * Current smoker (=0) or Number of Years since Quit: 0 * Ordering provider and NPI: ARCELIA GARCIA [id number] * Interpreting radiologist and NPI: John [id number] Exam acquisition parameters: * Exam Date: 12/27/2023 2:44 PM * Site: [facility] * * CT System Milieu Therapist: 2 Minutes * CT System Model: Footbalistic * Tube Current-Time (mA-sec): 60 * Peak [...] months. Other actionable findings: - ========= Reference: [employer]. Lung CT Screening Reporting and Data System (Lung-RADS). Available at: http://www.acr.org/Andrew lity-Safety/Resources/ LungRADS Safety Glass Installer: AMADO Transcribe Date/Time: Dec 27 2023 4:14P Dictated by : ILEANA MARQUEZ MD This examination was interpreted and the report reviewed and electronically signed by: ILEANA MARQUEZ MD on Dec 27 2023 4:28PM EST [facility] Radiology Study observation (narrative) [facility] CT Chest for screening WO co ntrastOrdered By: [facility] Provider on 12-27-[address] [facility] [address] LUNG SCREEN WO IVCONon CT LUNG SCREEN WO IVCON * * *Final Report* * * DATE OF EXAM: Dec 27 2023 2:44PM [facility] [place] CT LUNG SCREEN WO IVCON [...] without contrast. MQ: CTLCS_6 Patient characteristics: * Gdjq-fu-Lpcvy: 1960; Age at exam: 63 years * Gender: Female * Lung Disease: Asymptomatic (no signs or symptoms of lung disease) * Number of Pack Years: 21.9 * Current smoker (=0) or Number of Years since Quit: 0 * Ordering provider and NPI: ARCELIA GARCIA [id number] * Interpreting radiologist and NPI: John [id number] Exam acquisition parameters: * Exam Date: 12/27/2023 2:44 PM * Site: [facility] * * CT System Milieu Therapist: 2 Minutes * CT System Model: [employer] Emmanuel * Tube Current-Time (mA-sec): 60 * [...] months. Other actionable findings: - ========= Reference: [employer]. Lung CT Screening Reporting and Data System (Lung-RADS). Available at: http://www.acr.org/Andrew lity-Safety/Resources/ LungRADS Safety Glass Installer: AMADO Transcribe Date/Time: Dec 27 2023 4:14P Dictated by : ILEANA MARQUEZ MD This examination was interpreted and the report reviewed and electronically signed by: ILEANA MARQUEZ MD on Dec 27 2023 4:28PM EST [id number] [facility] 12-05-2023 CNP Telephone (INTMWS) JENNIFER RAMIREZ ([id number]) 1960 F Date Time Provider Department 12/05/23 [...] went over results, notes from Eddie Rodríguez BACK SHOE WORKER with understanding. Daughter asking what did BACK SHOE WORKER want her to do next? See Ortho? [...] G89.29] Order(s):CONSULT TO ORTHOPAEDICS [9026] Order #: [id number]: 1 FUTURE Prescriptions as of 12/07/2023 - [...] once daily. Noble Gilbert CNP at the [facility]. - albuterol (PROVENTIL) 2.5 mg /3 mL (0.083 %) nebulizer solution Use 3 mL via nebulizer every 4 hours as needed for wheezing/shortness of breath. - polyethylene glycol 3350 (MIRALAX) 17 gram/dose powder Take 17 g by mouth once daily as needed for constipation. - traZODone (DESYREL) 100 mg tablet Take 2 tablets by mouth daily at bedtime. Noble Gilbert, [facility], [facility]. - tiotropium bromide (SPIRIVA RESPIMAT) 2.5 mcg/actuation inhaler Inhale 2 Puffs as instructed once daily. - Nebulizer NEBULIZER FOR HOME USE. DX: J45.41. Nebulizer and supplies. Face mask preferred. Problem List As Of Date 12/05/2023 Noted Resolved Irreducible ventral hernia [K43.6] 03/02/2011 08/17/2018 Depression [F32.A] Disc [VRF5650] 08/17/2018 Hyperglycemia [R73.9] 12/15/2018 NEGATIVE MEDICAL HISTORY [...] cancer [Z12 (more content not included)... Normal [facility] CNPN Telephone (INTMWS) JENNIFER RAMIREZ ([id number]) 1960 F Date Time Provider Department 12/05/23 [...] message and verbalized understanding. Appointment scheduled with BACK SHOE WORKER Allergies As of Date: 12/05/2023 Noted Allergy [...] hernia [K43.6] 03/02/2011 08/17/2018 Depression [F32.A] Disc [UBQ0397] 08/17/2018 Hyperglycemia [R73.9] 12/15/2018 NEGATIVE MEDICAL HISTORY [...] Status:Closed by FAITH LANIER on 12/05/23 Normal [facility] ALBUMIN/CREATININE RATIO, UR INEon 12-01-2023 Albumin DL <= 20 mg/L (U) [Mass/Vol] mg/dL Normal [facility] Comment on above: Order Comment: Speci men Type: URINE SPECIMENOrdering Facility: [facility] Address: [address] [place] [address] Performed By: #### U ACR ####[facility] [id number] [place] [address] [place] Albumin/Creatinine (U) [Mass ratio] <6 Normal <30 [facility] Comment on above: Order Comment: Speci men Type: URINE SPECIMENOrdering Facility: [facility] Address: [address] [place] [address] Result Comment: Adul t Male and Female Nephrotic Criteria: <30 mg/g is considered normal to mildly increased 30-300 mg/g is considered moderately increased >300 mg/g is considered severely increased KDIGO. (2013). KDIGO 2012 Clinical Practice Guideline for the Evaluation and Management of Chronic Kidney Disease. Official Journal of the International Society of Nephrology, 3(1), 1-150. Performed By: #### U ACR ####[facility] [id number] [place] [address] [place] Creatinine (U) [Mass/Vol] 189.3 mg/dL Normal 20.0-300.0 [facility] Comment on above: Order Comment: Speci men Type: URINE SPECIMENOrdering Facility: [facility] Address: [address] [place] [address] Performed By: #### U ACR ####[facility] [id number] [place] [address] [place] CBC W Auto Differential pane l (Bld)on 12-01-2023 Basophils (Bld) [#/Vol] 0.04 10*3/uL [facility] Basophils/100 WBC (Bld) 0.4 % [facility] Differential cell count method Nom (Bld) Auto [facility] Eosinophils (Bld) [#/Vol] 0.21 10*3/uL [facility] Eosinophils/100 WBC (Bld) 2.3 % [facility] Erythrocyte distribution width (RBC) [Ratio] 13.0 % 11.5 - 15.0 % [facility] Hematocrit (Bld) [Volume fraction] 45.8 % 36.0 - 46.0 % [facility] Hemoglobin (Bld)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 criteria. Neutrophils (Bld) [#/Vol] 3.9 10*3/uL 2.0-7.7 [facility] Neutrophils/100 WBC (Bld) 50.0 % 47-70 [facility] Potassium [Moles/Vol] 3.6 mmol/L 3.5-5.1 [facility] Sodium [Moles/Vol] 141 mmol/L 136-145 [facility] WBC (Bld) [#/Vol] 7.9 10*3/uL 4.4-11.0 [facility] Blood erythrocytes count (nu mber/volume)Ordered By: Ronak Marte on 01-26-2023 RBC (Bld) [#/Vol] 4.96 10*6/uL 4.2-5.4 [facility] Blood hemoglobin measurement (mass/volume)Ordered By: Ronak Marte on 01-26-2023 Hemoglobin (Bld) [Mass/Vol] 14.8 g/dL 12.0-15.0 [facility] Blood lymphocytes/100 leukoc ytesOrdered By: Ronak Marte on 01-26-2023 Lymphocytes/100 WBC (Bld) 39.4 % 19-41 [facility] Blood monocytes/100 leukocyt esOrdered By: Ronak Marte on 01-26-2023 Monocytes/100 WBC (Bld) 7.5 % 0-10 [facility] Blood platelet mean volumeOr dered By: Ronak Marte on 01-26-2023 Platelet mean volume (Bld) [Entitic vol] 11.6 fL 6.2-12.0 [facility] CBC W/Diff, Automatedon - Absolute Lymph 3.09 X10 3/uL Normal 0.83-4.51 [facility] Comment on above: Performed By: #### L 501.5425, L100.0100, L500.2500 #### [facility] Laboratory [address] [place], [address] Absolute Neut 3.9 X10 3/uL Normal 2.0-7.7 [facility] Comment on above: Performed By: #### L 501.5425, L100.0100, L500.2500 #### [facility] Laboratory [address] [place], [address] Basophils/100 WBC (Bld) 0.4 % Normal 0-1 [facility] Comment on above: Performed By: #### L 501.5425, L100.0100, L500.2500 #### [facility] Laboratory [address] [place], [address] Eosinophils/100 WBC (Bld) 2.4 % Normal 0-5 [facility] Comment on above: Performed By: #### L 501.5425, L100.0100, L500.2500 #### [facility] [address] [place], [address] Erythrocyte distribution width (RBC) [Ratio] 13.1 % Normal 11.6-14.6 [facility] Comment on above: Performed By: #### L 501.5425, L100.0100, L500.2500 #### [facility] Laboratory [address] [facility] [place], [address] Hematocrit (Bld) [Volume fraction] 44.9 % Normal 37-47 [facility] Comment on above: Performed By: #### L 501.5425, L100.0100, L500.2500 #### [facility] Laboratory [address] [place], [address] Hemoglobin (Bld) [Mass/Vol] 14.8 g/dL Normal 12.0-15.0 [facility] Comment on above: Performed By: #### L 501.5425, L100.0100, L500.2500 #### [facility] Laboratory [address] [place], [address] IG% 0.300 Normal 0.0-0.9 [facility] Comment on above: Result Comment: IG% - Immature Granulocytes (promyelocytes, myelocytes and metamyelocytes) > 1% indicates that a LEFT SHIFT is Present. Performed By: #### L 501.5425, L100.0100, L500.2500 #### [facility] [address] [place], [address] Lymphocytes/100 WBC (Bld) 39.4 % Normal 19-41 [facility] Comment on above: Performed By: #### L 501.5425, L100.0100, L500.2500 #### [facility] Laboratory [address] [place], [address] MCH (RBC) [Entitic mass] 29.8 pg Normal 27.0-32.0 [facility] Comment on above: Performed By: #### L 501.5425, L100.0100, L500.2500 #### [facility] Laboratory [address] [place], [address] MCHC (RBC) [Mass/Vol] 33.0 g/dL Normal 32-36 [facility] Comment on above: Performed By: #### L 501.5425, L100.0100, L500.2500 #### [facility] Laboratory [address] [place], [address] MCV (RBC) [Entitic vol] 90.5 fL Normal 81-99 [facility] Comment on above: Performed By: #### L 501.5425, L100.0100, L500.2500 #### [facility] Laboratory [address] [place], [address] Monocytes/100 WBC (Bld) 7.5 % Normal 0-10 [facility] Comment on above: Performed By: #### L 501.5425, L100.0100, L500.2500 #### [facility] Laboratory [address] [place], [address] Neutrophils/100 WBC (Bld) 50.0 % Normal 47-70 [facility] Comment on above: Performed By: #### L 501.5425, L100.0100, L500.2500 #### [facility] Laboratory [address] [place], [address] Nucleated RBC (Bld) [#/Vol] 0 10*3/uL Normal 0-5 [facility] Comment on above: Performed By: #### L 501.5425, L100.0100, L500.2500 #### [facility] Laboratory [address] [place], [address] Platelet mean volume (Bld) [Entitic vol] 11.6 fL Normal 6.2-12.0 [facility] Comment on above: Performed By: #### L 501.5425, L100.0100, L500.2500 #### [facility] Laboratory [address] [place], [address] Platelets (Bld) [#/Vol] 215 10*3/uL Normal 150-450 [facility] Comment on above: Performed By: #### L 501.5425, L100.0100, L500.2500 #### [facility] Laboratory [address] [place], [address] RBC (Bld) [#/Vol] 4.96 10*6/uL Normal 4.2-5.4 [facility] Comment on above: Performed By: #### L 501.5425, L100.0100, L500.2500 #### [facility] Laboratory [address] [place], [address] RDW SD 43.3 fl Normal 35.1-43.9 [facility] Comment on above: Performed By: #### L 501.5425, L100.0100, L500.2500 #### [facility] Laboratory [address] [place], [address] WBC (Bld) [#/Vol] 7.9 10*3/uL Normal 4.4-11.0 [facility] Comment on above: Performed By: #### L 501.5425, L100.0100, L500.2500 #### [facility] Laboratory [address] [place], [address] CTA Chest W/WO Contraston CTA Chest W/WO Contrast [facility] Imaging Services [address] [place] [address] CTA Chest W/WO Contrast MR#: [id number] Acct: [id number] Name: JENNIFER RAMIREZ Rep #: [id number] : 1960 F 62 From: Kofi padilla MD PCP: Dr. Leonid Rice MD Status: REG ER Study: CTA Chest W/WO Contrast Date of Exam: 01/26/23 Exam# [id number] Ordering Dr: Ronak Marte DO [id number] STUDY: CTA CHEST REASON FOR EXAM: Female, [...] Ronak Marte DO; Dr. Leonid Rice MD Safety Glass Installer: Signed Normal [facility] Chest 1 View (Portable)on Chest 1 View (Portable) [facility] Imaging Services [address] [place] [address] Chest 1 View (Portable) MR#: [id number] Acct: [id number] Name: JENNIFER RAMIREZ Rep #: [id number] : 1960 F 62 From: Kofi padilla MD PCP: Dr. Leonid Rice MD Status: REG ER Study: Chest 1 View (Portable) Date of Exam: 01/26/23 Exam# [id number] Ordering Dr: Ronak Marte DO [id number] STUDY: X-RAY CHEST REASON FOR EXAM: Female, [...] Ronak Marte DO; Dr. Leonid Rice MD Safety Glass Installer: Signed Normal [facility] Determination of erythrocyte mean corpuscular volume (MCV)Ordered By: Ronak Marte on 01-26-2023 MCV (RBC) [Entitic vol] 90.5 fL 81-99 [facility] Emergency Department Summary on 01-26-2023 Emergency Department Summary [facility] Medical Records Department [address] [place] [address] Emergency Department Summary 01/26/23 MR#: [id number] Acct: [id number] Name: JENNIFER RAMIREZ Rep #: [id number] : 1960 62 From: Ronak Anguiano PCP: [...] Immobilization or Prior DVT or PE [facility] Medical History Anxiety Asthma Depression GERD (gastroesophageal [...] Negative f (more content not included)... Normal [facility] Hematocrit Auto (Bld) [Volum e fraction]Ordered By: Ronak Marte on 01-26-2023 Hematocrit (Bld) [Volume fraction] 44.9 % 37-47 [facility] L501.4020on 01-26-2023 TROPONIN-I HS 5 pg/mL Normal 3.0-54.0 [facility] Comment on above: Result Comment: Plea se Note: New Test Units and Gender Specific Reference Ranges. For more information see Policy Stat Procedure [facility] High Sensitivity Troponin (TNIH) and attachments. Performed By: #### L 501.4020 ####[facility] [address] [facility] [place], [place], [address] L501.54on 01-26-2023 TROPONIN-I HS 6 pg/mL Normal 3.0-54.0 [facility] Comment on above: Order Comment: 1 Y Result Comment: Plea se Note: New Test Units and Gender Specific Reference Ranges. For more information see Policy Stat Procedure [facility] High Sensitivity Troponin (TNIH) and attachments. Performed By: #### L 501.5425, L100.0100, L500.2500 #### [facility] Laboratory [address] [facility] [place], [address] Laboratory - Chemistry and C hemistry - challengeOrdered By: Ronak Marte on 01-26-2023 CO2 [Moles/Vol] 26.0 mmol/L 21.0-32.0 [facility] Urea nitrogen/Creatinine [Mass ratio] 10.8 mg/mg 10-20 [facility] Laboratory - Hematology and Cell countsOrdered By: Ronak Marte on 01-26-2023 Erythrocyte distribution width (RBC) [Entitic vol] 43.3 fL 35.1-43.9 [facility] Erythrocyte distribution width (RBC) [Ratio] 13.1 % 11.6-14.6 [facility] Immature granulocytes/100 WBC (Bld) 0.300 % 0.0-0.9 [facility] Comment on above: IG% - Immature Granu locytes (promyelocytes, myelocytes and metamyelocytes) > 1% indicates that a LEFT SHIFT is Present. MCH (RBC) [Entitic mass] 29.8 pg 27.0-32.0 [facility] Nucleated RBC/100 WBC (Bld) [Ratio] 0 % 0-5 [facility] MCHC Auto (RBC) [Mass/Vol]Or dered By: Ronak Marte on 01-26-2023 MCHC (RBC) [Mass/Vol] 33.0 g/dL 32-36 [facility] No Panel InformationOrdered By: Ronak Marte on 01-26-2023 Troponin I High Sensitivity 5 pg/mL 3.0-54.0 [facility] Comment on above: Please Note: New Julianne t Units and Gender Specific Reference Ranges. For more information see Policy Stat Procedure [facility] High Sensitivity Troponin (TNIH) and attachments. Estimated Creatinine Clearance Calc 38.71 ml/min [facility] Estimated GFR (MDRD) Amer 64 mL/min >60 [facility] Comment on above: GFR Calc Estimated GFR (MDRD) Non-Af Amer 53 mL/min >60 [facility] Comment on above: Non- GFR Calc Platelets bldOrdered By: Philip Marte on 01-26-2023 Platelets (Bld) [#/Vol] 215 10*3/uL 150-450 [facility] Serum or plasma calcium enedelia urement (mass/volume)Ordered By: Ronak Marte on 01-26-2023 Calcium [Mass/Vol] 9.2 mg/dL 8.5-10.1 [facility] Serum or plasma creatinine m easurement (mass/volume)Ordered By: Ronak Marte on 01-26-2023 Creatinine [Mass/Vol] 1.11 mg/dL 0.55-1.02 [facility] Comment on above: The validity of the calculated GFR & GFRAA in patients over 70 years has not been determined. Clinical correlation is essential. Serum or plasma urea nitroge n measurement (mass/volume)Ordered By: Ronak Marte on 01-26-2023 Urea nitrogen [Mass/Vol] 12 mg/dL 7-18 [facility] Thin prep Papanicolaou smear with manual screeningOrdered By: Ronak Marte on 01-26-2023 Thin prep Papanicolaou smear with manual screening 4 5-15 [facility] XR Hand - left PA and Latera l and Obliqueon 11-23-2022 IMPRESSION: No acute osseous findings. Safety Glass Installer: PSCBritton Transcribe Date/Time: Nov 23 2022 7:56A Dictated by : SUNSHINE VARGAS MD This examination was interpreted and the report reviewed and electronically signed by: SUNSHINE VARGAS MD on Nov 23 2022 7:57AM [facility] DIV[facility] OF RADIOLOGY * * *Final [...] erosions. IMPRESSION IMPRESSION: No acute osseous findings. Safety Glass Installer: PSCB Transcribe Date/Time: Nov 23 2022 7:56A Dictated by : SUNSHINE VARGAS MD This examination was interpreted and the report reviewed and electronically signed by: SUNSHINE VARGAS MD on Nov 23 2022 7:57AM EST [facility] XR Hand - left PA and Latera l and ObliqueOrdered By: Ccf Provider on 11-23-2022 [facility] CBC panel Auto (Bld)on 11-18 Erythrocyte distribution width (RBC) [Ratio] 13.0 % 11.5 - 15.0 % [facility] Hematocrit (Bld) [Volume fraction] 44.9 % 36.0 - 46.0 % [facility] Hemoglobin (Bld) [Mass/Vol] 15.0 g/dL 11.5 - 15.5 g/dL [facility] MCH (RBC) [Entitic mass] 30.1 pg 26.0 - 34.0 pg [facility] MCHC (RBC) [Mass/Vol] 33.4 g/dL 30.5 - 36.0 g/dL [facility] MCV (RBC) [Entitic vol] 90.0 fL 80.0 - 100.0 fL [facility] Nucleated RBC (Bld) [#/Vol] <0.01 k/uL [facility] Platelet mean volume (Bld) [Entitic vol] 11.3 fL 9.0 - 12.7 fL [facility] Platelets (Bld) [#/Vol] 214 10*3/uL 150 - 400 k/uL [facility] [facility] RBC (Bld) [#/Vol] 4.99 10*6/uL 3.90 - 5.2 0 m/uL [facility] WBC (Bld) [#/Vol] 10.10 10*3/uL 3.70 - 11 .00 k/uL [facility] ESR Westergren method (Bld) [Velocity]on 11-18-2022 ESR (Bld) [Velocity] 17 mm/h 0 - 20 mm/hr Cl [facility] XR Hand - left PA and Latera l and Obliqueon 11-18-2022 Radiology Study observation (narrative) [facility] CALVIN SCREENINGon 06-03-2022 [facility] XR Shoulder - left 3 Viewson 06-03-2022 IMPRESSION: No acute osseous abnormality Safety Glass Installer: AMADO Transcribe Date/Time: Jun 03 2022 3:21P Dictated by : MARCIA PURVIS MD This examination was interpreted and the report reviewed and electronically signed by: MARCIA PURVIS MD on Jun 03 2022 3:22PM [facility] DIVISION OF RADIOLOGY * * *Final [...] acromioclavicular degenerative disease. DIVISION OF RADIOLOGY Provider, [facility] - 06/03/2022 * * *Final Report* * [...] disease. IMPRESSION IMPRESSION: No acute osseous abnormality Safety Glass Installer: AMADO Transcribe Date/Time: Jun 03 2022 3:21P Dictated by : MARCIA PURVIS MD This examination was interpreted and the report reviewed and electronically signed by: MARCIA PURVIS MD on Jun 03 2022 3:22PM EST [facility] XR Shoulder - left 3 ViewsOr dered By: [facility] Provider on 06-03-2022 [facility] XR SHOULDER GENERAL 3V OR MO RE AP/TRUE AP/OTHER LEFTon 05-31-2022 [facility] XR Shoulder - left 3 Viewson 05-31-2022 Radiology Study observation (narrative) [facility] CT LUNG SCREEN WO IVCONon [facility] Abdomen/Pelvis W IV Cont ONL Yon 02-14-2022 Abdomen/Pelvis W IV Cont ONLY [facility] Imaging Services [address] [place] [address] Abdomen/Pelvis W IV Cont ONLY MR#: [id number] Acct: [id number] Name: JENNIFER RAMIREZ Rep #: [id number] : 1960 F 61 From: Danny Stephens PCP: Dr. Leonid Rice MD Status: REG ER Study: Abdomen/Pelvis W IV Cont ONLY Date of Exam: Exam# [id number] Ordering Dr: Kavon Wells DO STUDY: CT [...] 18:05 EST Reading Location ID and State: [facility] / [place] , Service support , CC: Dr. Kavon Wells, DO; Dr. Leonid Rice MD Safety Glass Installer: Signed Normal [facility] Absolute lymphocyte counton 02-14-2022 Lymphocytes Auto (Unsp spec) [#/Vol] 3.64 10*3/uL 0.83-4.51 [facility] Work Phone: Amorphous sediment detection in urine sediment by light microscopyon 02-14-2022 Amorphous sediment LM Ql (Urine sed) 1+ [facility] Work Phone: Basophil percentageon 2021 Basophil percentage 0 SEEN /hpf 0-5 [facility] Work Phone: Basophils/100 WBC (Bld) 0.4 % 0-1 [facility] Work Phone: Bilirubin [Mass/Vol] 0.20 mg/dL 0.20-1.00 [facility] Work Phone: Comment on above: For patients on eltr ombopag therapy, use of Dimension [facility] TBIL is not recommended. Chloride [Moles/Vol] 109 mmol/L 98-107 [facility] Work Phone: [phone] Eosinophils/100 WBC (Bld) 3.1 % 0-5 [facility] Work Phone: Glucose [Mass/Vol] 118 mg/dL 74-106 [facility] Work Phone: [phone] Comment on above: Fasting Glucose resu lt from 100 to 125 mg/dL suggests IMPAIRED HOMEOSTASIS per A.D.A. criteria. Neutrophils (Bld) [#/Vol] 5.3 10*3/uL 2.0-7.7 [facility] Work Phone: [phone] Neutrophils/100 WBC (Bld) 52.7 % 47-70 [facility] Work Phone: [phone] Potassium [Moles/Vol] 3.8 mmol/L 3.5-5.1 [facility] Work Phone: [phone] Protein [Mass/Vol] 7.1 g/dL 6.4-8.2 [facility] Work Phone: Sodium [Moles/Vol] 140 mmol/L 136-145 [facility] Work Phone: WBC (Bld) [#/Vol] 10.0 10*3/uL 4.4-11.0 [facility] Work Phone: Bilirubin Test strip Ql (U)o n 02-14-2022 Bilirubin Ql (U) Negative Negative [facility] Work Phone: Blood erythrocytes count (nu mber/volume)on 02-14-2022 RBC (Bld) [#/Vol] 4.95 10*6/uL 4.2-5.4 [facility] Work Phone: Blood hemoglobin measurement (mass/volume)on 02-14-2022 Hemoglobin (Bld) [Mass/Vol] 14.4 g/dL 12.0-15.0 [facility] Work Phone: Blood lymphocytes/100 leukoc yteson 02-14-2022 Lymphocytes/100 WBC (Bld) 36.4 % 19-41 [facility] Work Phone: Blood monocytes/100 leukocyt eson 02-14-2022 Monocytes/100 WBC (Bld) 6.8 % 0-10 [facility] Work Phone: Blood platelet mean volumeon 02-14-2022 Platelet mean volume (Bld) [Entitic vol] 11.2 fL 6.2-12.0 [facility] Work Phone: [phone] CBC W/Diff, Automatedon 0 Absolute Lymph 3.64 X10 3/uL Normal 0.83-4.51 [facility] Comment on above: Performed By: #### L 500.4050, L100.0100, L501.2450 ####[facility] [address] [place], [address] Absolute Neut 5.3 X10 3/uL Normal 2.0-7.7 [facility] Comment on above: Performed By: #### L 500.4050, L100.0100, L501.2450 ####[facility] [address] [place], [address] Basophils/100 WBC (Bld) 0.4 % Normal 0-1 [facility] Comment on above: Performed By: #### L 500.4050, L100.0100, [id number] ####[facility] [address] [place], [address] Eosinophils/100 WBC (Bld) 3.1 % Normal 0-5 [facility] Comment on above: Performed By: #### L 500.4050, L100.0100, L501.2450 ####[facility] [address] [place], [address] Erythrocyte distribution width (RBC) [Ratio] 13.2 % Normal 11.6-14.6 [facility] Comment on above: Performed By: #### L 500.4050, L100.0100, [id number] ####[facility] [address] [place], [address] Hematocrit (Bld) [Volume fraction] 43.7 % Normal 37-47 [facility] Comment on above: Performed By: #### L 500.4050, L100.0100, [id number] ####[facility] [address] [place], [address] Hemoglobin (Bld) [Mass/Vol] 14.4 g/dL Normal 12.0-15.0 [facility] Comment on above: Performed By: #### L 500.4050, L100.0100, L501.2450 ####[facility] [address] [place], [address] IG% 0.600 Normal 0.0-0.9 [facility] Comment on above: Result Comment: IG% - Immature Granulocytes (promyelocytes, myelocytes and metamyelocytes) > 1% indicates that a LEFT SHIFT is Present. Performed By: #### L 500.4050, L100.0100, L501.2450 ####[facility] [address] [place], [address] Lymphocytes/100 WBC (Bld) 36.4 % Normal 19-41 [facility] Comment on above: Performed By: #### L 500.4050, L100.0100, L501.2450 ####[facility] [address] [place], [address] MCH (RBC) [Entitic mass] 29.1 pg Normal 27.0-32.0 [facility] Comment on above: Performed By: #### L 500.4050, L100.0100, L501.2450 ####[facility] [address] [place], [address] MCHC (RBC) [Mass/Vol] 33.0 g/dL Normal 32-36 [facility] Comment on above: Performed By: #### L 500.4050, L100.0100, L501.2450 ####[facility] [address] [place], [address] MCV (RBC) [Entitic vol] 88.3 fL Normal 81-99 [facility] Comment on above: Performed By: #### L 500.4050, L100.0100, L501.2450 ####[facility] [address] [place], [address] Monocytes/100 WBC (Bld) 6.8 % Normal 0-10 [facility] Comment on above: Performed By: #### L 500.4050, L100.0100, L501.2450 ####[facility] [address] [place], [address] Neutrophils/100 WBC (Bld) 52.7 % Normal 47-70 [facility] Comment on above: Performed By: #### L 500.4050, L100.0100, L501.2450 ####[facility] [address] [place], [address] Nucleated RBC (Bld) [#/Vol] 0 10*3/uL Normal 0-5 [facility] Comment on above: Performed By: #### L 500.4050, L100.0100, L501.2450 ####[facility] [address] [place], [address] Platelet mean volume (Bld) [Entitic vol] 11.2 fL Normal 6.2-12.0 [facility] Comment on above: Performed By: #### L 500.4050, L100.0100, L501.2450 ####[facility] [address] [place], [address] Platelets (Bld) [#/Vol] 221 10*3/uL Normal 150-450 [facility] Comment on above: Performed By: #### L 500.4050, L100.0100, L501.2450 ####[facility] [address] [place], [address] RBC (Bld) [#/Vol] 4.95 10*6/uL Normal 4.2-5.4 [facility] Comment on above: Performed By: #### L 500.4050, L100.0100, L501.2450 ####[facility] [address] [place], [address] RDW SD 42.4 fl Normal 35.1-43.9 [facility] Comment on above: Performed By: #### L 500.4050, L100.0100, L501.2450 ####[facility] [address] [place], [address] WBC (Bld) [#/Vol] 10.0 10*3/uL Normal 4.4-11.0 [facility] Comment on above: Performed By: #### L 500.4050, L100.0100, L501.2450 ####[facility] [address] [place], [address] Comprehensive Metabolic Prof [facility] 02-14-2022 Albumin [Mass/Vol] 3.1 g/dL Low 3.2-5.0 [facility] Comment on above: Performed By: #### L 500.4050, L100.0100, L501.2450 ####[facility] [address] [place], [address] Albumin/Globulin [Mass ratio] 0.8 {ratio} Low 0.9-2.4 [facility] Comment on above: Performed By: #### L 500.4050, L100.0100, L501.2450 ####[facility] [address] [place], [address] ALK P 132 U/L High 45-117 [facility] Comment on above: Performed By: #### L 500.4050, L100.0100, [id number] ####[facility] [address] [place], [address] ALT [Catalytic activity/Vol] 21 U/L Normal 13-56 [facility] Comment on above: Performed By: #### L 500.4050, L100.0100, L501.2450 ####[facility] [address] [place], [address] AST [Catalytic activity/Vol] 15 U/L Normal 15-37 [facility] Comment on above: Performed By: #### L 500.4050, L100.0100, L5.2450 ####[facility] [address] [place], [address] Bilirubin [Mass/Vol] 0.20 mg/dL Normal 0.20-1.00 [facility] Comment on above: Result Comment: For patients on eltrombopag therapy, use of Dimension [facility] TBIL is not recommended. Performed By: #### L 500.4050, L100.0100, L5.2450 ####[facility] [address] [place], [address] BUN/CRE 10.4 RATIO Normal 10-20 [facility] Comment on above: Performed By: #### L 500.4050, L100.0100, L5.2450 ####[facility] [address] [place], [address] CA,Total 9.1 mg/dL Normal 8.5-10.1 [facility] Comment on above: Performed By: #### L 500.4050, L100.0100, L501.2450 ####[facility] [address] [place], [address] Chloride [Moles/Vol] 109 mmol/L High 98-107 [facility] Comment on above: Performed By: #### L 500.4050, L100.0100, L501.2450 ####[facility] [address] [place], [address] CO2 [Moles/Vol] 27.0 mmol/L Normal 21.0-32.0 [facility] Comment on above: Performed By: #### L 500.4050, L100.0100, L501.2450 ####[facility] [address] [place], [address] Creatinine [Mass/Vol] 0.96 mg/dL Normal 0.55-1.02 [facility] Comment on above: Result Comment: The validity of the calculated GFR GFRAA in patients over 70 years has not been determined. Clinical correlation is essential. Performed By: #### L 500.4050, L100.0100, L501.2450 ####[facility] [address] [place], [address] ECRCL 45.32 ml/min Normal [facility] Comment on above: Performed By: #### L 500.4050, L100.0100, L501.2450 ####[facility] [address] [place], [address] EST GFR - AA 76 mL/min Normal >60 [facility] Comment on above: Result Comment: Afri can Ecuadorean GFR Calc Performed By: #### L 500.4050, L100.0100, L501.2450 ####[facility] [address] [place], [address] GAP 4 Low 5-15 [facility] Comment on above: Performed By: #### L 500.4050, L100.0100, L501.2450 ####[facility] [address] [place], [address] GFR/1.73 sq M.predicted among non-blacks MDRD (S/P/Bld) [Vol rate/Area] 63 mL/min/{1.73_m2} Normal >60 [facility] Comment on above: Result Comment: Non- GFR Calc Performed By: #### L 500.4050, L100.0100, L501.2450 ####[facility] [address] [place], [address] Globulin (S) [Mass/Vol] 4.0 g/dL Normal 2.2-4.2 [facility] Comment on above: Performed By: #### L 500.4050, L100.0100, L501.2450 ####[facility] [address] [place], [address] Glucose [Mass/Vol] 118 mg/dL High 74-106 [facility] Comment on above: Result Comment: Fast ing Glucose result from 100 to 125 mg/dL suggests IMPAIRED HOMEOSTASIS per A.D.A. criteria. Performed By: #### L 500.4050, L100.0100, L501.2450 ####[facility] [address] [place], [address] Potassium [Moles/Vol] 3.8 mmol/L Normal 3.5-5.1 [facility] Comment on above: Performed By: #### L 500.4050, L100.0100, L501.2450 ####[facility] [address] [place], [address] Sodium [Moles/Vol] 140 mmol/L Normal 136-145 [facility] Comment on above: Performed By: #### L 500.4050, L100.0100, L501.2450 ####[facility] [address] [place], [address] T PROT 7.1 g/dL Normal 6.4-8.2 [facility] Comment on above: Performed By: #### L 500.4050, L100.0100, L501.2450 ####[facility] [address] [place], [address] Urea nitrogen [Mass/Vol] 10 mg/dL Normal 7-18 [facility] Comment on above: Performed By: #### L 500.4050, L100.0100, L501.2450 ####[facility] [address] [place], [address] Determination of erythrocyte mean corpuscular volume (MCV)on 02-14-2022 MCV (RBC) [Entitic vol] 88.3 fL 81-99 [facility] Work Phone: Emergency Department Summary on 02-14-2022 Emergency Department Summary [facility] Medical Records Department [address] [place] [address] Emergency Department Summary 02/14/22 MR#: [id number] Acct: [id number] Name: JENNIFER RAMIREZ Rep #: [id number] : 1960 61 From: Kavon Wells DO [...] vomiting, constipation, diarrhea. She denies urinary complaints. [facility] Medical History Anxiety Asthma Depression GERD (gastroesophageal [...] is a chronic condition which she is Ukrainian-speaking but her family (more content not included)... Normal [facility] Hematocrit Auto (Bld) [Volum e fraction]on 02-14-2022 Hematocrit (Bld) [Volume fraction] 43.7 % 37-47 [facility] Work Phone: Ketones Test strip Ql (U)on 02-14-2022 Ketones Ql (U) Negative Negative [facility] Work Phone: Laboratory - Chemistry and C hemistry - challengeon 02-14-2022 ALP [Catalytic activity/Vol] 132 U/L 45-117 [facility] Work Phone: ALT [Catalytic activity/Vol] 21 U/L 13-56 [facility] Work Phone: CO2 [Moles/Vol] 27.0 mmol/L 21.0-32.0 [facility] Work Phone: Globulin (S) [Mass/Vol] 4.0 g/dL 2.2-4.2 [facility] Work Phone: Lipase [Catalytic activity/Vol] 38 U/L 73-393 [facility] Work Phone: [phone] Urea nitrogen/Creatinine [Mass ratio] 10.4 mg/mg 10-20 [facility] Work Phone: Laboratory - Hematology and Cell countson 02-14-2022 Erythrocyte distribution width (RBC) [Entitic vol] 42.4 fL 35.1-43.9 [facility] Work Phone: Erythrocyte distribution width (RBC) [Ratio] 13.2 % 11.6-14.6 [facility] Work Phone: [phone] Immature granulocytes/100 WBC (Bld) 0.600 % 0.0-0.9 [facility] Work Phone: Comment on above: IG% - Immature Granu locytes (promyelocytes, myelocytes and metamyelocytes) > 1% indicates that a LEFT SHIFT is Present. MCH (RBC) [Entitic mass] 29.1 pg 27.0-32.0 [facility] Work Phone: Nucleated RBC/100 WBC (Bld) [Ratio] 0 % 0-5 [facility] Work Phone: Lipaseon 02-14-2022 Lipase [Catalytic activity/Vol] 38 U/L Low 73-393 [facility] Comment on above: Performed By: #### L 500.4050, L100.0100, L501.2450 ####[facility] [address] [place], [place], [address] MCHC Auto (RBC) [Mass/Vol]on 02-14-2022 MCHC (RBC) [Mass/Vol] 33.0 g/dL 32-36 [facility] Work Phone: [phone] Mucus LM Ql (Urine sed)on Mucus Ql (Urine sed) 0 SEEN /hpf [facility] Work Phone: Nitrite Test strip Ql (U)on 02-14-2022 Nitrite Ql (U) Negative Negative [facility] Work Phone: No Panel Informationon 02-14 Estimated Creatinine Clearance Calc 45.32 ml/min [facility] Work Phone: Estimated GFR (MDRD) Amer 76 mL/min >60 [facility] Work Phone: Comment on above: GFR Calc Estimated GFR (MDRD) Non-Af Amer 63 mL/min >60 [facility] Work Phone: Comment on above: Non- GFR Calc Platelets bldon 02-14-2022 Platelets (Bld) [#/Vol] 221 10*3/uL 150-450 [facility] Work Phone: Protein Test strip Ql (U)on 02-14-2022 Protein Ql (U) Negative Negative [facility] Work Phone: Serum or plasma albumin enedelia urement (mass/volume)on 02-14-2022 Albumin [Mass/Vol] 3.1 g/dL 3.2-5.0 [facility] Work Phone: Serum or plasma albumin/glob ulin mass ratioon 02-14-2022 Albumin/Globulin [Mass ratio] 0.8 {ratio} 0.9-2.4 [facility] Work Phone: Serum or plasma calcium enedelia urement (mass/volume)on 02-14-2022 Calcium [Mass/Vol] 9.1 mg/dL 8.5-10.1 [facility] Work Phone: Serum or plasma creatinine m easurement (mass/volume)on 02-14-2022 Creatinine [Mass/Vol] 0.96 mg/dL 0.55-1.02 [facility] Work Phone: Comment on above: The validity of the calculated GFR & GFRAA in patients over 70 years has not been determined. Clinical correlation is essential. Serum or plasma urea nitroge n measurement (mass/volume)on 02-14-2022 Urea nitrogen [Mass/Vol] 10 mg/dL 7-18 [facility] Work Phone: Squamous epithelial cells de tection in urine sediment by light microscopyon 02-14-2022 Epithelial cells.squamous LM Ql (Urine sed) 0-5 SEEN /hpf 5-10 [facility] Work Phone: [phone] Thin prep Papanicolaou smear with manual screeningon 02-14-2022 Thin prep Papanicolaou smear with manual screening 15 U/L 15-37 [facility] Work Phone: Thin prep Papanicolaou smear with manual screening 4 5-15 [facility] Work Phone: Urinalysis, Completeon 02-14 AMORPHOUS 1+ Normal [facility] Comment on above: Order Comment: CLEAN CATCH Performed By: #### L 400.0001 #### [facility] Laboratory [address] [place], [address] EPI,SQUAMOUS 0-5 SEEN Normal 5-10 [facility] Comment on above: Order Comment: CLEAN CATCH Performed By: #### L 400.0001 #### [facility] [address] [place], [address] BACTERIA 0 SEEN Normal None Seen [facility] Comment on above: Order Comment: CLEAN CATCH Performed By: #### L 400.0001 #### [facility] [address] [place], [address] Mucus Ql (Urine sed) 0 SEEN Normal [facility] Comment on above: Order Comment: CLEAN CATCH Performed By: #### L 400.0001 #### [facility] [address] [place], [address] RBC 0 SEEN Normal 0-5 [facility] Comment on above: Order Comment: CLEAN CATCH Performed By: #### L 400.0001 #### [facility] [address] [place], [address] WBC 0 SEEN Normal 0-5 [facility] Comment on above: Order Comment: CLEAN CATCH Performed By: #### L 400.0001 #### [facility] [place], [address] Urine blood detectionon - RBC Ql (U) Negative Negative [facility] Work Phone: RBC Ql (U) 0 SEEN /hpf 0-5 [facility] Work Phone: Urine clarityon 02-14-2022 Clarity (U) Clear Clear [facility] Work Phone: Urine color determinationon 02-14-2022 Color (U) Yellow Yellow [facility] Work Phone: Urine glucose detectionon Glucose Ql (U) Normal mg/dl Normal [facility] Work Phone: Urine leukocyte esterase det ection by dipstickon 02-14-2022 Leukocyte esterase Test strip Ql (U) Negative Negative [facility] Work Phone: Urine pHon 02-14-2022 pH (U) 6.5 [pH] 5.0 - 8.0 [facility] Work Phone: Urine sediment bacteria coun t by microscopy (number/high power field)on 02-14-2022 Bacteria LM.HPF (Urine sed) [#/Area] 0 /[HPF] None Seen [facility] Work Phone: Urine specific gravity measu rementon 02-14-2022 Specific gravity (U) [Rel density] 1.020 1.002-1.030 [facility] Work Phone: Urobilinogen Auto test strip Ql (U)on 02-14-2022 Urobilinogen Ql (U) Normal mg/dl Normal [facility] Work Phone: XR ABDOMEN 2V ROUTINE SUPINE W UPRIGHT/DECUB/CTLon 11-29-2021 [facility] XR Abdomen Supine and Uprigh ton 11-29-2021 IMPRESSION: Nonobstructive bowel gas pattern. Safety Glass Installer: AMADO Transcribe Date/Time: Nov 29 2021 2:59P [...] lower lumbar spine. DIVISION OF RADIOLOGY Provider, [facility] - 11/29/2021 * * *Final Report* * [...] spine. IMPRESSION IMPRESSION: Nonobstructive bowel gas pattern. Safety Glass Install[facility]: [facility] Transcribe Date/Time: Nov 29 2021 2:59P Dictated by : DESMOND PÉREZ MD This examination was interpreted and the report reviewed and electronically signed by: DESMOND PÉREZ MD on Nov 29 2021 3:00PM EST [facility] Radiology Study observation (narrative) [facility] XR Abdomen Supine and Uprigh tOrdered By: [facility] Provider on 11-29-2021 [facility] No Panel Informationon 10-06 [facility] EMERGENCY REPORTon 05-09-[address] [facility] EMERGENCY ROOM REPORT NAME ACCOUNT SEX AGE ADMIT DISCHARGE PT MED. RECORD# NUMBER DATE DATE TYPE YAJAIRA [id number] F 59 07/12/20 07/12/20 3 FRANCNEWTONJENNIFER [id number] ROOM: ER DATE OF : 1960 DICTATING [...] 2 YAJAIRA MCMULLEN, Emergency Room Report JENNIFER OLVERA : 1960 EMERGENCY DEPARTMENT COURSE AND [...] Mikael Pelletier DO 07/12/20 12:25 JOB #: [id number] Transcribed By: am 07/12/20 18:16 Electronically signed by: JONO Pelletier D.O. 07/19/20 07:16 Page 2 of 2 YAJAIRA MCMULLEN, Emergency Room Report JENNIFER Normal [facility] CBC + DIFFon 07-12-2020 Baso # 0.00 x10EE3/UL Normal 0.00 - 0.10 [facility] Comment on above: Performed By: #### 2 [id number] #### [facility],[address] [place] [address] 24632 Basophils/100 WBC (Bld) 0.7 % Normal 0.0 - 2.0 [facility] Comment on above: Performed By: #### 2 72457 #### [facility],[address] [place] [address] 07124 CBC + DIFF Normal [facility] Comment on above: Result Comment: CBC- COMPLETE BLOOD COUNT Performed By: #### 2 03451 #### [facility],[address] [place] [address] 46934 EO # 0.40 x10EE3/UL Normal 0.00 - 0.50 [facility] Comment on above: Performed By: #### 2 99241 #### [facility],[address] [place] [address] 70896 Eosinophils/100 WBC (Bld) 5.1 % Normal 0.0 - 7.0 [facility] Comment on above: Performed By: #### 2 59205 #### [facility],[address] [place] [address] Erythrocyte distribution width (RBC) [Ratio] 13.6 % Normal 12.0 - 15.6 [facility] Comment on above: Performed By: #### 2 57377 #### [facility],[address] [place] [address] Hematocrit (Bld) [Volume fraction] 42.2 % Normal 34.0 - 46.0 [facility] Comment on above: Performed By: #### 2 58476 #### [facility],[address] [place] [address] Hemoglobin (Bld) [Mass/Vol] 14.5 g/dL Normal 12.0 - 16.0 [facility] Comment on above: Performed By: #### 2 58863 #### [facility],[address] [place] [address] Lymph # 2.20 x10EE3/UL Normal 0.80 - 2.80 [facility] Comment on above: Performed By: #### 2 78282 #### [facility],[address] [place] [address] Lymphocytes/100 WBC (Bld) 29.0 % Normal 20.0 - 45.0 [facility] Comment on above: Performed By: #### 2 84297 #### [facility],[address] [place], [place] [id number] MANUAL DIFF N/A Normal [facility] Comment on above: Performed By: #### 2 82110 #### [facility],[address] [place], [place] [id number] MCH (RBC) [Entitic mass] 30 pg Normal 27 - 33 [facility] Comment on above: Performed By: #### 2 51145 #### [place] [address] MCHC 34 X10 3 Normal 32 - 36 [facility] Comment on above: Performed By: #### 2 52194 #### [facility],[address] [place] [address] MCV (RBC) [Entitic vol] 87 fL Normal 80 - 99 [facility] Comment on above: Performed By: #### 2 90421 #### [facility],[address] [place] [address] 06367 [place] # 0.60 x10EE3/UL Normal 0.20 - 1.00 [facility] Comment on above: Performed By: #### 2 83554 #### [facility],[address] [place] [address] 01158 MONOS % 7.9 % Normal 0.0 - 10.0 [facility] Comment on above: Performed By: #### 2 08647 #### [facility],[address] [place] [address] 47521 Morphology Torres (Bld) [Interp] N/A Normal [facility] Comment on above: Result Comment: {CD] Performed By: #### 2 61584 #### [facility],[address] [place] [address]956 Neut # 4.30 x10EE3/UL Normal 1.50 - 7.10 [facility] Comment on above: Performed By: #### 2 71503 #### [facility],[address] [place] [address] 37443 Neutrophils/100 WBC (Bld) 57.3 % Normal 46.0 - 76.0 [facility] Comment on above: Performed By: #### 2 23050 #### [facility],[address] [place] [address] 27972 PLATELET 219 x10EE3/UL Normal 150 - 450 [facility] Comment on above: Performed By: #### 2 54659 #### [facility],[address] [place] [address] 20302 Platelet mean volume (Bld) [Entitic vol] 9.4 fL Normal 6.6 - 10.5 [facility] Comment on above: Result Comment: AUTO MATED DIFFERENTIAL Performed By: #### 2 15302 #### [facility],[address] [place] [address] 09833 RBC 4.86 x 10EE6/UL Normal 4.10 - 5.30 [facility] Comment on above: Performed By: #### 2 48181 #### [facility],[address] [place] [address] 98859 WBC 7.5 x 10EE3/UL Normal 4.5 - 10.8 [facility] Comment on above: Performed By: #### 2 45724 #### [facility],[address] [place] [address] 35830 CMP with eGFRon 07-12-2020 AGE 59 years Normal [facility] Comment on above: Performed By: #### 2 21098 #### [facility],[address] [place] [address] 71119 Albumin [Mass/Vol] 3.2 g/dL Low 3.4 - 5.0 [facility] Comment on above: Performed By: #### 2 89487 #### [facility],[address] [place] [address] 71076 Albumin/Globulin [Mass ratio] 0.8 {ratio} Low 0.9 - 1.6 [facility] Comment on above: Performed By: #### 2 72461 #### [facility],[address] [place] [address] 17182 ALK PHOS 148 U/L High 46 - 116 [facility] Comment on above: Performed By: #### 2 96211 #### [address] [address] ALT [Catalytic activity/Vol] 29 U/L Normal 14 - 59 [facility] Comment on above: Performed By: #### 2 91710 #### [facility],[address] [place] [address] 52220 Anion gap [Moles/Vol] 15 mmol/L Normal 10 - 20 [facility] Comment on above: Performed By: #### 2 75981 #### [facility],[address] [place], [place] [id number] AST [Catalytic activity/Vol] 16 U/L Normal 13 - 39 [facility] Comment on above: Performed By: #### 2 70232 #### [facility],[address] [place] [address] B/C RATIO 11 ratio Normal 0 - 30 [facility] Comment on above: Performed By: #### 2 08043 #### [facility],[address] [place] [address] Bilirubin [Mass/Vol] 0.4 mg/dL Normal 0.2 - 1.0 [facility] Comment on above: Performed By: #### 2 44718 #### [facility],[address] [place], [place] [address] Calcium [Mass/Vol] 8.8 mg/dL Normal 8.5 - 10.1 [facility] Comment on above: Performed By: #### 2 22868 #### [facility],[address] [place], [place] [address] Chloride [Moles/Vol] 104 mmol/L Normal 98 - 107 [facility] Comment on above: Performed By: #### 2 98078 #### [facility],[address] [place] [address] 13542 CMP with eGFR Normal [facility] Comment on above: Result Comment: COMP REHENSIVE METABOLIC PANEL Performed By: #### 2 31718 #### [facility],[address] [place] [address] 14412 CO2 [Moles/Vol] 24.6 mmol/L Normal 21.0 - 32.0 [facility] Comment on above: Performed By: #### 2 92035 #### [facility],[address] [place], [place] [address] Creatinine [Mass/Vol] 0.9 mg/dL Normal 0.5 - 1.0 [facility] Comment on above: Performed By: #### 2 96891 #### [facility],[address] [place], [place] [address] GFR/1.73 sq M.predicted among non-blacks MDRD (S/P/Bld) [Vol rate/Area] mL/min/{1.73_m2} Normal 60 - 999 [facility] Comment on above: Performed By: #### 2 32441 #### [facility],[address] [place] [address] Result Comment: ACCO RDING TO THE NATIONAL KIDNEY DISEASE EDUCATION PROGRAM(NKDE), A NORMAL eGFR IS A VALUE GREATER THAN OR EQUAL TO 60 ML/MIN/1.73 SQ METERS. CHRONIC KIDNEY DISEASE: <60mL/MIN/1.73 SQ METERS KIDNEY FAILURE: <15mL/MIN/1.73 SQ METERS THIS TEST SHOULD ONLY BE USED FOR PATIENTS 18 YEARS OF AGE AND OLDER. Globulin (S) [Mass/Vol] 4.1 g/dL High 1.5 - 3.8 [facility] Comment on above: Performed By: #### 2 77219 #### [facility],[address] [place] [address] 61898 Glucose [Mass/Vol] 168 mg/dL High 74 - 106 [facility] Comment on above: Performed By: #### 2 48097 #### [facility],[address] [place] [address] 46135 Potassium [Moles/Vol] 3.5 mmol/L Normal 3.5 - 5.1 [facility] Comment on above: Performed By: #### 2 97147 #### [facility],[address] [place] [address] 23031 Protein [Mass/Vol] 7.3 g/dL Normal 6.4 - 8.2 [facility] Comment on above: Performed By: #### 2 46821 #### [facility],[address] [place] [address] 87859 Sodium [Moles/Vol] 140 mmol/L Normal 136 - 145 [facility] Comment on above: Performed By: #### 2 45033 #### [facility],[address] [place] [address] 53868 Urea nitrogen [Mass/Vol] 10 mg/dL Normal 7 - 18 [facility] Comment on above: Performed By: #### 2 09165 #### [facility],[address] [place] [address] CHEST (PE PROTOCOL)on CT CHEST (PE PROTOCOL) [place] [address] Patient: JENNIFER RAMIREZ Phone#: : 1960 Age: 59 Gender: F Pt. Type: ER Account: [id number] Location: [facility] Ordering: MIKAEL PELLETIER Exam Date: 07/12/2020/11:09 Family Phys: Charge Code: [id number] Physician: [place] Order #: [id number] DLP Dose#: PROCEDURE: CT CHEST WITH CONTRAST FOR PE COMPARISON: [facility], CT, CHEST PE W CON, 10/06/2018, 12:49. [...] There is no evidence of pulmonary embolus. [address] [address] Patient: JENNIFER RAMIREZ Phone#: : 1960 Age: 59 Gender: F Pt. Type: ER Account: [id number] Location: 052 Ordering: [facility] Exam Date: 07/12/2020/11:09 Family Phys: Charge Code: [id number] Physician: [place] Order #: [id number] DLP Dose#: Dictated by: Sheryl Sorensen MD on 07/12/2020 at 19:13 Approved by: Sheryl Sorensen MD on 07/12/2020 at 19:15 Normal [facility] RIBS LT UNILAT W/CHEST EXPIR ATIONon 07-12-2020 RIBS LT UNILAT W/CHEST EXPIRATION [address] [address] Patient: JENNIFER RAMIREZ Phone#: : 1960 Age: 59 Gender: F Pt. Type: ER Account: [id number] Location: 052 Ordering: [facility] Exam Date: 07/12/2020/9:58 Family Phys: Charge Code: [id number] Physician: [place] Order #: [id number] DLP Dose#: PROCEDURE: X-RAY RIBS LT UNILAT [...] Sorensen MD on 07/12/2020 at 18:27 Normal [facility] TROPONIN I, HIGH SENSITIVITY on 07-12-2020 HS TROPONIN 6.1 pg/mL Normal 0.0 - 51.4 [facility] Comment on above: Performed By: #### 2 67426 #### [facility],[address] [place] [address] XR KNEE LEFT (3 VIEWS)on XR KNEE [...] Imtiaz Aceves MD 06/26/18 Final result Normal [facility] XR ABDOMEN (KUB) (SINGLE AP VIEW)on 04-25-2018 [...] Juan Aguayo MD 04/25/18 Final result Normal [facility] XR KNEE LEFT (3 VIEWS)on XR KNEE LEFT (3 VIEWS) EXAMINATION: XR KNEE LEFT (3 VIEWS) CLINICAL HISTORY: Jennifer Gates?is a 57 y.o.?female?who presents to the Emergency Department with L posterior knee pain 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 ?She denies any other injury. ?She is [...] Faiza Abrams MD 02/22/18 Final result Normal [facility] CBC With Platelet and Differ entialon 01-30-2018 Basophils Auto #/vol (Bld) 0.0 10*3/uL Normal 0.0-0.2 [facility] Basophils/100 WBC Auto (Bld) 0.6 % Normal [facility] Eosinophils Auto #/vol (Bld) 0.2 10*3/uL Normal 0.0-0.7 [facility] Eosinophils/100 WBC Auto (Bld) 2.5 % Normal [facility] Erythrocyte distribution width Auto Ratio (RBC) 14.6 % Critically high 11.5-14.5 [facility] Hematocrit Auto Volume Fraction (Bld) 41.3 % Normal 37.0-47.0 [facility] Hemoglobin mass conc (Bld) 14.1 g/dL Normal 12.0-16.0 [facility] Lymphocytes Auto #/vol (Bld) 2.5 10*3/uL Normal 1.0-4.8 [facility] Lymphocytes/100 WBC Auto (Bld) 31.6 % Normal [facility] MCH Auto Entitic mass (RBC) 30.4 pg Normal 27.0-31.3 [facility] MCHC Auto mass conc (RBC) 34.1 % Normal 33.0-37.0 [facility] MCV Auto Entitic volume (RBC) 89.1 fL Normal 82.0-100.0 [facility] Monocytes Auto #/vol (Bld) 0.4 10*3/uL Normal 0.2-0.8 [facility] Monocytes/100 WBC Auto (Bld) 5.3 % Normal [facility] Neutrophils Auto #/vol (Bld) 4.8 10*3/uL Normal 1.4-6.5 [facility] Neutrophils/100 WBC Auto (Bld) 60.0 % Normal [facility] Platelets Auto #/vol (Bld) 211 10*3/uL Normal 130-400 [facility] RBC Auto #/vol (Bld) 4.64 10*6/uL Normal 4.20-5.40 [facility] WBC Auto #/vol (Bld) 7.9 10*3/uL Normal 4.8-10.8 [facility] Comprehensive Metabolic Pane tina 01-30-2018 Albumin mass conc 3.9 g/dL Normal 3.9-4.9 [facility] ALP enzyme act/vol 137 U/L Critically high 40-130 [facility] ALT enzyme act/vol 15 U/L Normal 0-33 [facility] Comment on above: Result Comment: Spec imen hemolysis has exceeded the interference as definedby Prince. Result may be affected. Suggest recollection ifclinically indicated. Anion gap 3 molar conc 16 mmol/L Critically high 7-13 [facility] AST enzyme act/vol 18 U/L Normal 0-35 [facility] Comment on above: Result Comment: Spec imen hemolysis has exceeded the interference as definedby Prince. Value may be falsely increased. Suggestrecollection if clinically indicated. Bilirubin mass conc mg/dL Normal 0.0-1.2 [facility] Calcium mass conc 9.5 mg/dL Normal 8.6-10.2 [facility] Chloride molar conc 106 mmol/L Normal 98-107 [facility] CO2 molar conc 19 mmol/L Low 22-29 [facility] Creatinine mass conc 0.87 mg/dL Normal 0.50-0.90 [facility] GFR/1.73 sq M predicted among blacks MDRD vol rate/area (S/P/Bld) mL/min/{1.73_m2} Normal >60 [facility] Comment on above: Result Comment: >60 mL/min/1.73m2 EGFR, calc. for ages 18 and older using theMDRD formula (not corrected for weight), is valid for stablerenal function. GFR/1.73 sq M.predicted MDRD vol rate/area mL/min/{1.73_m2} Normal >60 [facility] Comment on above: Result Comment: >60 mL/min/1.73m2 EGFR, calc. for ages 18 and older using theMDRD formula (not corrected for weight), is valid for stablerenal function. Globulin Calculated mass conc (S) 3.5 g/dL Normal 2.3-3.5 [facility] Glucose mass conc 177 mg/dL Critically high 74-109 [facility] Potassium molar conc 4.0 mmol/L Normal 3.5-5.1 [facility] Comment on above: Result Comment: Spec imen hemolysis has exceeded the interference as definedby Prince. Value may be falsely increased. Suggestrecollection if clinically indicated. Protein mass conc 7.4 g/dL Normal 6.4-8.1 [facility] Sodium molar conc 141 mmol/L Normal 132-144 [facility] Urea nitrogen mass conc 15 mg/dL Normal 6-20 [facility] Urinalysis, reflex to micros copicon 01-30-2018 Bilirubin Ql (U) Negative Normal Negative [facility] Color Nom (U) Yellow Normal Straw/Corozal [facility] Glucose Ql (U) Negative Normal Negative [facility] Hemoglobin Test strip Ql (U) Negative Normal Negative [facility] Ketones Ql (U) Negative Normal Negative [facility] Leukocyte esterase Test strip Ql (U) Negative Normal Negative [facility] Nitrite Test strip Ql (U) Negative Normal Negative [facility] pH Test strip (U) 5.0 [pH] Normal 5.0-9.0 [facility] Protein Test strip Ql (U) Negative Normal Negative [facility] Specific gravity Relative Density (U) 1.025 Normal 1.005-1.03 [facility] Urobilinogen Test strip Qn (U) 0.2 {Kieran'U}/dL Normal < 2.0 [facility] Clarity Nom (U) Clear Normal Clear [facility] XR ACUTE ABD SERIES CHEST 1 VWon [...] Hola Alexandra MD 01/30/18 Final result Normal [facility] Surgical Specimenon 01-11-20 Surgical Specimen Invalid Interpretation Code [facility] Comment on above: Result Comment: [place] [id number] [phone] SURGICAL PATHOLOGY REPORTPatient Name: JENNIFER GATES Accession No: [id number] Age Sex: 1960 Location: [facility] No: [id number] Collected: 01/10/2018[facility] Rec No: [id number] Received: 01/11/2018Attend Phys: FELIPA SHORT Completed: 01/12/2018Perform [...] greatest dimension. Filtered, in toto, onecassette. OTTO/DEMARCUST: [id number] HOUSE M.D. 01/12/2018 Electronically signed out by Page 1 of 1 CBC With Platelet and Differ entialon 12-19-2017 Basophils #/vol (Bld) 0.1 10*3/uL Normal 0.0-0.2 [facility] Basophils/100 WBC (Bld) 0.6 % Normal [facility] Eosinophils #/vol (Bld) 0.1 10*3/uL Normal 0.0-0.7 [facility] Eosinophils/100 WBC (Bld) 1.4 % Normal [facility] Erythrocyte distribution width Ratio (RBC) 13.8 % Normal 11.5-14.5 [facility] Hematocrit Volume Fraction (Bld) 40.1 % Normal 37.0-47.0 [facility] Hemoglobin mass conc (Bld) 13.4 g/dL Normal 12.0-16.0 [facility] Lymphocytes #/vol (Bld) 2.7 10*3/uL Normal 1.0-4.8 [facility] Lymphocytes/100 WBC (Bld) 29.4 % Normal [facility] MCH Entitic mass (RBC) 29.8 pg Normal 27.0-31.3 [facility] MCHC mass conc (RBC) 33.5 % Normal 33.0-37.0 [facility] MCV Entitic volume (RBC) 89.1 fL Normal 82.0-100.0 [facility] Monocytes #/vol (Bld) 0.6 10*3/uL Normal 0.2-0.8 [facility] Monocytes/100 WBC (Bld) 6.6 % Normal [facility] Neutrophils #/vol (Bld) 5.7 10*3/uL Normal 1.4-6.5 [facility] Neutrophils/100 WBC (Bld) 62.0 % Normal [facility] Platelets #/vol (Bld) 214 10*3/uL Normal 130-400 [facility] RBC #/vol (Bld) 4.50 10*6/uL Normal 4.20-5.40 [facility] WBC #/vol (Bld) 9.3 10*3/uL Normal 4.8-10.[address] [facility] [address] ABDOMEN PELVIS WO CONTRAS Ton 12-19-2017 [...] Juan Aguayo MD 12/19/17 Final result Normal [facility] Comprehensive Metabolic Pane tina 12-19-2017 Albumin mass conc 4.0 g/dL Normal 3.9-4.9 [facility] ALP enzyme act/vol 129 U/L Normal 40-130 [facility] Comment on above: Result Comment: Spec imen hemolysis has exceeded the interference as defined by Prince. Value may be falsely decreased. Suggest recollection if clinically indicated. ALT enzyme act/vol 18 U/L Normal 0-33 [facility] Comment on above: Result Comment: Spec imen hemolysis has exceeded the interference as defined by Prince. Result may be affected. Suggest recollection if clinically indicated. Anion gap molar conc 13 mmol/L Normal 7-13 [facility] AST enzyme act/vol 25 U/L Normal 0-35 [facility] Comment on above: Result Comment: Spec imen hemolysis has exceeded the interference as defined by Prince. Value may be falsely increased. Suggest recollection if clinically indicated. Bilirubin mass conc mg/dL Normal 0.0-1.2 [facility] Calcium mass conc 9.1 mg/dL Normal 8.6-10.2 [facility] Chloride molar conc 108 mmol/L Critically high 98-107 [facility] CO2 molar conc 20 mmol/L Low 22-29 [facility] Creatinine mass conc 0.81 mg/dL Normal 0.50-0.90 [facility] GFR/1.73 sq M predicted among blacks MDRD vol rate/area (S/P/Bld) mL/min/{1.73_m2} Normal >60 [facility] Comment on above: Result Comment: >60 mL/min/1.73m2 EGFR, calc. for ages 18 and older using the MDRD formula (not corrected for weight), is valid for stable renal function. GFR/1.73 sq M.predicted MDRD vol rate/area mL/min/{1.73_m2} Normal >60 [facility] Comment on above: Result Comment: >60 mL/min/1.73m2 EGFR, calc. for ages 18 and older using the MDRD formula (not corrected for weight), is valid for stable renal function. Globulin mass conc (S) 3.6 g/dL Critically high 2.3-3.5 [facility] Glucose mass conc 80 mg/dL Normal 74-109 [facility] Potassium molar conc 4.4 mmol/L Normal 3.5-5.1 [facility] Comment on above: Result Comment: Spec imen hemolysis has exceeded the interference as defined by Prince. Value may be falsely increased. Suggest recollection if clinically indicated. Protein mass conc 7.6 g/dL Normal 6.4-8.1 [facility] Sodium molar conc 141 mmol/L Normal 132-144 [facility] Urea nitrogen mass conc 12 mg/dL Normal 6-20 [facility] Rejection Notificationon Rejected Test CBCWD Normal [facility] Urinalysis, reflex to micros copicon 12-19-2017 Bilirubin Ql (U) Negative Normal Negative [facility] Color Nom (U) Yellow Normal Straw/Corozal [facility] Glucose Ql (U) Negative Normal Negative [facility] Hemoglobin Ql (U) Negative Normal Negative [facility] Ketones Ql (U) Negative Normal Negative [facility] Leukocyte esterase Test strip Ql (U) Negative Normal Negative [facility] Nitrite Ql (U) Negative Normal Negative [facility] pH (U) 6.5 [pH] Normal 5.0-9.0 [facility] Protein Ql (U) Negative Normal Negative [facility] Specific gravity Relative Density (U) 1.022 Normal 1.005-1.03 [facility] Urobilinogen Qn (U) 0.2 {Kieran'U}/dL Normal < 2.0 [facility] Clarity Nom (U) Clear Normal Clear [facility] CALVIN DIGITAL SCREEN W OR WO C [...] IS VERY IMPORTANT TO YOUR HEALTH. THE [employer] GUIDELINES RECOMMEND THAT WOMEN 40 YEARS OF AGE AND OLDER SHOULD HAVE A MAMMOGRAM EVERY YEAR. A REMINDER LETTER WILL BE SENT AT THE APPROPRIATE TIME. Interpreted by: Negrita Aldridge MD Signed by: Negrita Aldridge MD 11/21/17 Final result Normal [facility] MRI BRAIN W WO CONTRASTon MRI BRAIN W WO CONTRAST MRI BRAIN WITH AND WITHOUT CONTRAST: COMPARISONS: NONE CLINICAL HISTORY: HISTORY OF TRAUMA IN 2012. FREQUENT FALLS. HEADACHES, SLURRED SPEECH, COGNITIVE IMPAIRMENT. DIZZINESS. TECHNIQUE: Multiplanar, multi-sequence MRI was performed on a 1[employer] [facility] magnet. 20 mL of of ProHance contrast [...] Negrita Aldridge MD 09/14/17 Final result Normal [facility] CBC With Platelet and Differ entialon 09-09-2017 Basophils #/vol (Bld) 0.1 10*3/uL Normal 0.0-0.2 [facility] Basophils/100 WBC (Bld) 0.6 % Normal [facility] Eosinophils #/vol (Bld) 0.2 10*3/uL Normal 0.0-0.7 [facility] Eosinophils/100 WBC (Bld) 2.1 % Normal [facility] Erythrocyte distribution width Ratio (RBC) 14.3 % Normal 11.5-14.5 [facility] Hematocrit Volume Fraction (Bld) 42.0 % Normal 37.0-47.0 [facility] Hemoglobin mass conc (Bld) 14.4 g/dL Normal 12.0-16.0 [facility] Lymphocytes #/vol (Bld) 3.5 10*3/uL Normal 1.0-4.8 [facility] Lymphocytes/100 WBC (Bld) 34.2 % Normal [facility] MCH Entitic mass (RBC) 30.2 pg Normal 27.0-31.3 [facility] MCHC mass conc (RBC) 34.1 % Normal 33.0-37.0 [facility] MCV Entitic volume (RBC) 88.5 fL Normal 82.0-100.0 [facility] Monocytes #/vol (Bld) 0.7 10*3/uL Normal 0.2-0.8 [facility] Monocytes/100 WBC (Bld) 7.3 % Normal [facility] Neutrophils #/vol (Bld) 5.7 10*3/uL Normal 1.4-6.5 [facility] Neutrophils/100 WBC (Bld) 55.8 % Normal [facility] Platelets #/vol (Bld) 226 10*3/uL Normal 130-400 [facility] RBC #/vol (Bld) 4.75 10*6/uL Normal 4.20-5.40 [facility] WBC #/vol (Bld) 10.3 10*3/uL Normal 4.8-10.[address] [facility] [address] HEAD WO CONTRASTon 2017 CT HEAD [...] Imtiaz Aceves MD 09/09/17 Final result Normal [facility] Comprehensive Metabolic Pane tina 09-09-2017 Albumin mass conc 4.0 g/dL Normal 3.9-4.9 [facility] ALP enzyme act/vol 128 U/L Normal 40-130 [facility] Comment on above: Result Comment: Spec imen hemolysis has exceeded the interference as defined by Prince. Value may be falsely decreased. Suggest recollection if clinically indicated. ALT enzyme act/vol 21 U/L Normal 0-33 [facility] Comment on above: Result Comment: Spec imen hemolysis has exceeded the interference as defined by Prince. Result may be affected. Suggest recollection if clinically indicated. Anion gap molar conc 17 mmol/L Critically high 7-13 [facility] AST enzyme act/vol 30 U/L Normal 0-35 [facility] Comment on above: Result Comment: Spec imen hemolysis has exceeded the interference as defined by Prince. Value may be falsely increased. Suggest recollection if clinically indicated. Bilirubin mass conc 0.6 mg/dL Normal 0.0-1.2 [facility] Calcium mass conc 8.8 mg/dL Normal 8.6-10.2 [facility] Chloride molar conc 101 mmol/L Normal 98-107 [facility] CO2 molar conc 22 mmol/L Normal 22-29 [facility] Creatinine mass conc 0.81 mg/dL Normal 0.50-0.90 [facility] GFR/1.73 sq M predicted among blacks MDRD vol rate/area (S/P/Bld) mL/min/{1.73_m2} Normal >60 [facility] Comment on above: Result Comment: >60 mL/min/1.73m2 EGFR, calc. for ages 18 and older using the MDRD formula (not corrected for weight), is valid for stable renal function. GFR/1.73 sq M.predicted MDRD vol rate/area mL/min/{1.73_m2} Normal >60 [facility] Comment on above: Result Comment: >60 mL/min/1.73m2 EGFR, calc. for ages 18 and older using the MDRD formula (not corrected for weight), is valid for stable renal function. Globulin mass conc (S) 3.4 g/dL Normal 2.3-3.5 [facility] Glucose mass conc 172 mg/dL Critically high 74-109 [facility] Potassium molar conc 4.1 mmol/L Normal 3.5-5.1 [facility] Comment on above: Result Comment: Spec imen hemolysis has exceeded the interference as defined by [facility]. Value may be falsely increased. Suggest recollection if clinically indicated. Protein mass conc 7.4 g/dL Normal 6.4-8.1 [facility] Sodium molar conc 140 mmol/L Normal 132-144 [facility] Urea nitrogen mass conc 9 mg/dL Normal 6-20 [facility] Magnesiumon 09-09-2017 Magnesium mass conc 2.1 mg/dL Normal 1.7-2.3 [facility] Troponinon 09-09-2017 Troponin I.cardiac mass conc ng/mL Normal 0.000-0.01 [facility] Comment on above: Result Comment: Meth odology by Troponin T. Urinalysis, reflex to micros copicon 07-18-2017 Bilirubin Ql (U) Negative Normal Negative [facility] Clarity Nom (U) Clear Normal Clear [facility] Color Nom (U) Yellow Normal Straw/[place] [facility] Glucose Ql (U) Negative Normal Negative [facility] Hemoglobin Ql (U) Negative Normal Negative [facility] Ketones Ql (U) Negative Normal Negative [facility] Leukocyte esterase Test strip Ql (U) Negative Normal Negative [facility] Nitrite Ql (U) Negative Normal Negative [facility] pH (U) 6.5 [pH] Normal 5.0-9.0 [facility] Protein Ql (U) Negative Normal Negative [facility] Specific gravity Relative Density (U) 1.020 Normal 1.005-1.03 [facility] Urobilinogen Qn (U) 0.2 {Kieran'U}/dL Normal < 2.0 [facility] XR LUMBAR SPINE (MIN 4 VIEWS )on [...] Juan Aguayo MD 07/18/17 Final result Normal [facility] VITAMIN Don 10-14-2016 VITAMIN D 25.3 ng/mL Low 30.0-100.0 [facility] Comment on above: Order Comment: adive d pt we only do H pylori for breathe or fecal. Gave her info AND shesaid she will advised the dr 10/10/2016 11:36 Result Comment: (20- 30 ng/mL) InsufficiencyThis assay accurately quantifies the sum of vitamin D3, 25-Hydroxy andvitamin D2, 25-Hyroxy. Thyroxine Freeon 10-11-2016 Thyroxine Free 0.89 ng/dL Low 0.93-1.70 [facility] Comment on above: Order Comment: adive d pt we only do H pylori for breathe or fecal. Gave her info AND shesaid she will advised the dr 10/10/2016 11:36 TSH w/out Reflexon 7 Thyroid stimulating hormone (TSH) 2.590 uIU/mL Normal 0.270-4.20 [facility] Comment on above: Order Comment: adive d pt we only do H pylori for breathe or fecal. Gave her info AND shesaid she will advised the dr 10/10/2016 11:36 Uric Acidon 10-10-2016 Urate 5.1 mg/dL Normal 2.4-5.7 [facility] Comment on above: Order Comment: adive d pt we only do H pylori for breathe or fecal. Gave her info AND shesaid she will advised the dr 10/10/2016 11:36 Vitamin B12 and Folateon Cobalamins (Vitamin B12) 224 pg/mL Normal 211-946 [facility] Comment on above: Order Comment: adive d pt we only do H pylori for breathe or fecal. Gave her info AND shesaid she will advised the dr 10/10/2016 11:36 Folate 11.6 ng/mL Normal 7.3-26.1 [facility] Comment on above: Order Comment: adive d [...] 57 mm[Hg] Zachery Toussaint MD Work Phone: [facility] 01-18-2024 09:48-0500 Heart rate 71 /min Zachery Toussaint MD Work Phone: [facility] 01-18-2024 09:48-0500 Respiratory rate 16 /min Zachery Toussaint MD Work Phone: [facility] 01-18-2024 09:48-0500 SaO2% (BldA) [Mass fraction] 97 % Zachery Toussaint MD Work Phone: [facility] 01-18-2024 09:48-0500 Systolic blood pressure 108 mm[Hg] Zachery Toussaint MD Work Phone: [facility] 01-18-2024 08:43-0500 Body mass index (BMI) [Ratio] 42.37 kg/m2 Zachery Toussaint MD Work Phone: [facility] 01-18-2024 08:43-0500 Body temperature 97.5 [degF] Zachery Toussaint MD Work Phone: [facility] 01-18-2024 08:43-0500 Body weight 98.4 kg Zachery Toussaint MD Work Phone: [facility] 01-16-2024 13:00-0500 Diastolic blood pressure 75 mm[Hg] Ruby Golias PT Work Phone: [facility] 01-16-2024 13:00-0500 Heart rate 77 /min Ruby Golias PT Work Phone: [facility] 01-16-2024 13:00-0500 Systolic blood pressure 123 mm[Hg] Ruby Golias PT Work Phone: [facility] 01-08-2024 14:44-0400 Body height 152.4 cm Zachery Toussaint MD Work Phone: [facility] 01-08-2024 14:44-0400 Body mass index (BMI) [Ratio] 42.38 kg/m2 Zachery Toussaint MD Work Phone: [facility] 01-08-2024 14:44-0400 Body weight 98.43 kg Zachery Toussaint MD Work Phone: [facility] 01-08-2024 14:44-0400 Diastolic blood pressure 72 mm[Hg] Zachery Toussaint MD Work Phone: [facility] 01-08-2024 14:44-0400 Heart rate 80 /min Zachery Toussaint MD Work Phone: [facility] 01-08-2024 14:44-0400 Respiratory rate 16 /min Zachery Toussaint MD Work Phone: [facility] 01-08-2024 14:44-0400 SaO2% (BldA) [Mass fraction] 97 % Zachery Toussaint MD Work Phone: [facility] 01-08-2024 14:44-0400 Systolic blood pressure 116 mm[Hg] Zachery Toussaint MD Work Phone: [facility] 01-08-2024 10:57-0400 Body mass index (BMI) [Ratio] 38.95 kg/m2 aMrianna Stef FILTER WASHER AND PRESSER.BARREL INSPECTOR Work Phone: [facility] 01-08-2024 10:57-0400 Body weight 96.6 kg Marianna AbrahamStef FILTER WASHER AND PRESSER.BARREL INSPECTOR Work Phone: [facility] 01-08-2024 10:57-0400 Diastolic blood pressure 82 mm[Hg] Marianna Stef FILTER WASHER AND PRESSER.BARREL INSPECTOR Work Phone: [facility] 01-08-2024 10:57-0400 Heart rate 76 /min Marianna EllisStef FILTER WASHER AND PRESSER.BARREL INSPECTOR Work Phone: [facility] 01-08-2024 10:57-0400 Respiratory rate 14 /min Marianna Stef FILTER WASHER AND PRESSER.BARREL INSPECTOR Work Phone: [facility] 01-08-2024 10:57-0400 SaO2% (BldA) [Mass fraction] 96 % Marianna EllisStef FILTER WASHER AND PRESSER.BARREL INSPECTOR Work Phone: [facility] 01-08-2024 10:57-0400 Systolic blood pressure 124 mm[Hg] Marianna EllisStef FILTER WASHER AND PRESSER.BARREL INSPECTOR Work Phone: [facility] 12-27-2023 14:58-0400 Body mass index (BMI) [Ratio] 39.35 kg/m2 Terrence Flores FIL[employer] WASHER [employer]ESSER.BARREL INSPECTOR Work Phone: [facility] 12-27-2023 14:58-0400 Body weight 97.6 kg Terrence Flores FILTER WASHER AND PRESSER.BARREL INSPECTOR Work Phone: [facility] 12-27-2023 14:58-0400 Diastolic blood pressure 76 mm[Hg] Terrence Grand Chenier FILTER WASHER AND PRESSER.BARREL INSPECTOR Work Phone: [facility] 12-27-2023 14:58-0400 Heart rate 90 /min Terrence Grand [place] FILTER WASHER AND PRESSER.BARREL INSPECTOR Work Phone: [facility] 12-27-2023 14:58-0400 SaO2% (BldA) [Mass fraction] 98 % Terrence Grand [place] FILTER WASHER AND PRESSER.BARREL INSPECTOR Work Phone: [facility] 12-27-2023 14:58-0400 Systolic blood pressure 116 mm[Hg] Terrence Grand [place] FILTER WASHER AND PRESSER.BARREL INSPECTOR Work Phone: [facility] 12-01-2023 09:49-0400 Body mass index (BMI) [Ratio] 39.23 kg/m2 Eddie Rodríguez FILTER WASHER AND PRESSER.ECONOMICS TEACHER Work Phone: [facility] 12-01-2023 09:49-0400 Body weight 97.3 kg Eddie Rodríguez FILTER WASHER AND PRESSER.ECONOMICS TEACHER Work Phone: [facility] 12-01-2023 09:49-0400 Diastolic blood pressure 83 mm[Hg] Eddie Rodríguez FILTER WASHER AND PRESSER.ECONOMICS TEACHER Work Phone: [facility] 12-01-2023 09:49-0400 Heart rate 71 /min Eddie Rodríguez FILTER WASHER AND PRESSER.ECONOMICS TEACHER Work Phone: [facility] 12-01-2023 09:49-0400 Respiratory rate 16 /min Eddie Rodríguez FILTER WASHER AND PRESSER.ECONOMICS TEACHER Work Phone: [facility] 12-01-2023 09:49-0400 Systolic blood pressure 135 mm[Hg] Eddie Rodríguez FILTER WASHER AND PRESSER.ECONOMICS TEACHER Work Phone: [facility] 09-13-2023 08:52-0400 Diastolic blood pressure 64 mm[Hg] Zachery Toussaint MD Work Phone: [facility] 09-13-2023 08:52-0400 Respiratory rate 16 /min Zachery Toussaint MD Work Phone: [facility] 09-13-2023 08:52-0400 SaO2% (BldA) [Mass fraction] 98 % Zachery Toussaint MD Work Phone: [facility] 09-13-2023 08:52-0400 Systolic blood pressure 92 mm[Hg] Zachery Toussaint MD Work Phone: [facility] 09-13-2023 08:42-0400 Heart rate 73 /min Zachery Toussaint MD Work Phone: [facility] 09-13-2023 07:15-0400 Body temperature 97.59 [degF] Zachery Toussaint MD Work Phone: [facility] 08-23-2023 17:01-0400 Body height 157.5 cm Marianna Yap APRN.BARREL INSPECTOR Work Phone: [facility] 08-23-2023 17:01-0400 Body mass index (BMI) [Ratio] 39.14 kg/m2 Marianna Yap APRN.BARREL INSPECTOR Work Phone: [facility] 08-23-2023 17:01-0400 Body temperature 98.91 [degF] Marianna Yap APRN.BARREL INSPECTOR Work Phone: [facility] 08-23-2023 17:01-0400 Body weight 97.07 kg Marianna Yap APRN.BARREL INSPECTOR Work Phone: [facility] 08-23-2023 17:01-0400 Diastolic blood pressure 74 mm[Hg] Marianna Yap APRN.BARREL INSPECTOR Work Phone: [facility] 08-23-2023 17:01-0400 Heart rate 86 /min aMrianna Yap APRN.BARREL INSPECTOR Work Phone: [facility] 08-23-2023 17:01-0400 Respiratory rate 14 /min Marianna Yap APRN.BARREL INSPECTOR Work Phone: [facility] 08-23-2023 17:01-0400 SaO2% (BldA) [Mass fraction] 98 % Marianna Yap APRN.BARREL INSPECTOR Work Phone: [facility] 08-23-2023 17:01-0400 Systolic blood pressure 134 mm[Hg] Marianna Yap APRN.BARREL INSPECTOR Work Phone: [facility] 02-21-2023 12:17-0500 Body temperature 96.98 [degF] MIKAEL PULIDO MD [facility] 02-21-2023 12:17-0500 Body weight 100.3 kg MIKAEL PULIDO MD [facility] 02-21-2023 12:17-0500 Diastolic Blood Pressure Non-Invasive 58 mm[Hg] MIKAEL PULIDO MD [facility] 02-21-2023 12:17-0500 Heart rate 73 /min MIKAEL PULIDO MD [facility] 02-21-2023 12:17-0500 Respiratory rate 16 /min MIKAEL PULIDO MD [facility] 02-21-2023 12:17-0500 Systolic Blood Pressure Non-Invasive 158 mm[Hg] MIKAEL PULIDO MD [facility] 01-26-2023 16:11-0500 Diastolic blood pressure 89 mm[Hg] [facility] 01-26-2023 16:11-0500 Heart rate 58 /min [facility] 01-26-2023 16:11-0500 Respiratory rate 19 /min [facility] 01-26-2023 16:11-0500 SaO2% (BldA) [Mass fraction] 97 % [facility] 01-26-2023 16:11-0500 Systolic blood pressure 124 mm[Hg] [facility] 01-26-2023 11:20-0500 Body height 152.4 cm [facility] 01-26-2023 11:20-0500 Body mass index (BMI) [Ratio] 42.4 kg/m2 [facility] 01-26-2023 11:20-0500 Body temperature 96.8 [degF] [facility] 01-26-2023 11:20-0500 Body weight 98.5 kg [facility] 12-15-2022 10:07-0400 Body weight 97.07 kg Meredith [place] FILTER WASHER AND PRESSER.BARREL INSPECTOR Work Phone: [facility] 12-15-2022 10:07-0400 Diastolic blood pressure 72 mm[Hg] Meredith Jeff FILTER WASHER AND PRESSER.BARREL INSPECTOR Work Phone: [facility] 12-15-2022 10:07-0400 Systolic blood pressure 106 mm[Hg] Meredith Jeff FILTER WASHER AND PRESSER.BARREL INSPECTOR Work Phone: [facility] 11-28-2022 11:00-0400 Body temperature 97.5 [degF] Marianna Older FILTER WASHER AND PRESSER.BARREL INSPECTOR Work Phone: [facility] 11-28-2022 11:00-0400 Body weight 95.71 kg Marianna Older FILTER WASHER AND PRESSER.BARREL INSPECTOR Work Phone: [facility] 11-28-2022 11:00-0400 Diastolic blood pressure 56 mm[Hg] Marianna Older FILTER WASHER AND PRESSER.BARREL INSPECTOR Work Phone: [facility] 11-28-2022 11:00-0400 Heart rate 76 /min Marianna Older FILTER WASHER AND PRESSER.BARREL INSPECTOR Work Phone: [facility] 11-28-2022 11:00-0400 Systolic blood pressure 105 mm[Hg] Marianna Older FILTER WASHER AND PRESSER.BARREL INSPECTOR Work Phone: [facility] 11-18-2022 13:12-0400 Body weight 97.07 kg Marianna Older FILTER WASHER AND PRESSER.BARREL INSPECTOR Work Phone: [facility] 11-18-2022 13:12-0400 Diastolic blood pressure 64 mm[Hg] Marianna Older FILTER WASHER AND PRESSER.BARREL INSPECTOR Work Phone: [facility] 11-18-2022 13:12-0400 Heart rate 81 /min Marianna Older FILTER WASHER AND PRESSER.BARREL INSPECTOR Work Phone: [facility] 11-18-2022 13:12-0400 Respiratory rate 16 /min Marianna Older FILTER WASHER AND PRESSER.BARREL INSPECTOR Work Phone: [facility] 11-18-2022 13:12-0400 SaO2% (BldA) [Mass fraction] 97 % Marianna Older FILTER WASHER AND PRESSER.BARREL INSPECTOR Work Phone: [facility] 11-18-2022 13:12-0400 Systolic blood pressure 110 mm[Hg] Marianna Older FILTER WASHER AND PRESSER.BARREL INSPECTOR Work Phone: [facility] 05-31-2022 10:14-0400 Body temperature 98.4 [degF] Leonid Rice MD Work Phone: [facility] 05-31-2022 10:14-0400 Body weight 97.07 kg Leonid Rice MD Work Phone: [facility] 05-31-2022 10:14-0400 Diastolic blood pressure 80 mm[Hg] Leonid Rice MD Work Phone: [facility] 05-31-2022 10:14-0400 Heart rate 92 /min Leonid Rice MD Work Phone: [facility] 05-31-2022 10:14-0400 Respiratory rate 18 /min Leonid Rice MD Work Phone: [facility] 05-31-2022 10:14-0400 Systolic blood pressure 120 mm[Hg] Leonid Rice MD Work Phone: [facility] 02-16-2022 08:02-0500 Body height 157.5 cm Fabiennesamreen Chenf PA-C Work Phone: [facility] 02-16-2022 08:02-0500 Body temperature 97.59 [degF] Fabienne [place] PA-C Work Phone: [facility] 02-16-2022 08:02-0500 Body weight 100.25 kg Fabienne Lee PA-C Work Phone: [facility] 02-16-2022 08:02-0500 Diastolic blood pressure 82 mm[Hg] Fabienne Lee PA-C Work Phone: [facility] 02-16-2022 08:02-0500 Heart rate 113 /min Fabienne Lee PA-C Work Phone: [facility] 02-16-2022 08:02-0500 SaO2% (BldA) [Mass fraction] 95 % Fabienne Chenf PA-C Work Phone: [facility] 02-16-2022 08:02-0500 Systolic blood pressure 108 mm[Hg] Fabienne Chenf PA-C Work Phone: [facility] 02-15-2022 11:03-0500 Body weight 100.25 kg Arcelia Garcia APRN.BARREL INSPECTOR Work Phone: [facility] 02-15-2022 11:03-0500 Diastolic blood pressure 69 mm[Hg] Arcelia Garcia APRN.BARREL INSPECTOR Work Phone: [facility] 02-15-2022 11:03-0500 Heart rate 64 /min Arcelia Garcia APRN.BARREL INSPECTOR Work Phone: [facility] 02-15-2022 11:03-0500 SaO2% (BldA) [Mass fraction] 98 % Arcelia Garcia APRN.BARREL INSPECTOR Work Phone: [facility] 02-15-2022 11:03-0500 Systolic blood pressure 113 mm[Hg] Arcelia Garcia APRN.BARREL INSPECTOR Work Phone: [facility] 02-14-2022 18:33-0500 Body temperature 98.1 [degF] [facility] Work Phone: 02-14-2022 18:33-0500 Diastolic blood pressure 74 mm[Hg] [facility] Work Phone: 02-14-2022 18:33-0500 Heart rate 74 /min [facility] Work Phone: 02-14-2022 18:33-0500 Respiratory rate 15 /min [facility] Work Phone: 02-14-2022 18:33-0500 SaO2% (BldA) [Mass fraction] 99 % [facility] Work Phone: 02-14-2022 18:33-0500 Systolic blood pressure 132 mm[Hg] [facility] Work Phone: 02-14-2022 15:26-0500 Body height 152.4 cm [facility] Work Phone: 02-14-2022 15:26-0500 Body mass index (BMI) [Ratio] 43.1 kg/m2 [facility] Work Phone: 02-14-2022 15:26-0500 Body weight 100.24 kg [facility] Work Phone: 02-11-2022 16:49-0500 Body weight 100.2 kg Leonid Rice MD Work Phone: [facility] 02-11-2022 16:49-0500 Diastolic blood pressure 86 mm[Hg] Leonid Rice MD Work Phone: [facility] 02-11-2022 16:49-0500 Heart rate 80 /min Leonid Rice MD Work Phone: [facility] 02-11-2022 16:49-0500 Respiratory rate 16 /min Leonid Rice MD Work Phone: [facility] 02-11-2022 16:49-0500 SaO2% (BldA) [Mass fraction] 97 % Leonid Rice MD Work Phone: [facility] 02-11-2022 16:49-0500 Systolic blood pressure 128 mm[Hg] Leonid Rice MD Work Phone: [facility] 12-31-2021 13:31-0400 Body weight 100.25 kg Marianna Older FILTER WASHER AND PRESSER.BARREL INSPECTOR Work Phone: [facility] 12-31-2021 13:31-0400 Diastolic blood pressure 72 mm[Hg] Marianna Older FILTER WASHER AND PRESSER.BARREL INSPECTOR Work Phone: [facility] 12-31-2021 13:31-0400 Heart rate 92 /min Marianna Older FILTER WASHER AND PRESSER.BARREL INSPECTOR Work Phone: [facility] 12-31-2021 13:31-0400 Respiratory rate 16 /min Marianna Older FILTER WASHER AND PRESSER.BARREL INSPECTOR Work Phone: [facility] 12-31-2021 13:31-0400 Systolic blood pressure 106 mm[Hg] Marianna Older FILTER WASHER AND PRESSER.BARREL INSPECTOR Work Phone: [facility] 11-29-2021 14:05-0400 Body weight 99.34 kg Marianna Older FILTER WASHER AND PRESSER.BARREL INSPECTOR Work Phone: [facility] 11-29-2021 14:05-0400 Diastolic blood pressure 80 mm[Hg] Marianna Older FILTER WASHER AND PRESSER.BARREL INSPECTOR Work Phone: [facility] 11-29-2021 14:05-0400 Heart rate 80 /min Marianna Older FILTER WASHER AND PRESSER.BARREL INSPECTOR Work Phone: [facility] 11-29-2021 14:05-0400 Respiratory rate 16 /min Marianna Older FILTER WASHER AND PRESSER.BARREL INSPECTOR Work Phone: [facility] 11-29-2021 14:05-0400 Systolic blood pressure 142 mm[Hg] Marianna Older FILTER WASHER AND PRESSER.BARREL INSPECTOR Work Phone: [facility] 11-13-2021 15:23-0400 Body temperature 98.2 [degF] Terell Joseph MD Work Phone: [facility] 11-13-2021 15:23-0400 Body weight 99.61 kg Terell Joseph MD Work Phone: [facility] 11-13-2021 15:23-0400 Diastolic blood pressure 76 mm[Hg] Terell Joseph MD Work Phone: [facility] 11-13-2021 15:23-0400 Heart rate 73 /min Terell Joseph MD Work Phone: [facility] 11-13-2021 15:23-0400 Respiratory rate 18 /min Terell Joseph MD Work Phone: [facility] 11-13-2021 15:23-0400 SaO2% (BldA) [Mass fraction] 97 % Terell Joseph MD Work Phone: [facility] 11-13-2021 15:23-0400 Systolic blood pressure 146 mm[Hg] Terell Joseph MD Work Phone: [facility] 09-30-2021 13:43-0400 Body temperature 97.7 [degF] Leonid Rice MD Work Phone: [facility] 09-30-2021 13:43-0400 Body weight 95.71 kg Leonid Rice MD Work Phone: [facility] 09-30-2021 13:43-0400 Diastolic blood pressure 78 mm[Hg] Leonid Rice MD Work Phone: [facility] 09-30-2021 13:43-0400 Heart rate 80 /min Leonid Rice MD Work Phone: [facility] 09-30-2021 13:43-0400 Respiratory rate 24 /min Leonid Rice MD Work Phone: [facility] 09-30-2021 13:43-0400 Systolic blood pressure 128 mm[Hg] Leonid Rice MD Work Phone: [facility] Encounters Encounter Date Encounter Type Care Provider Facility Start: 01-18-2024 End: 01-18-2024 ambulatory Zachery Toussaint Facility:[facility] Start: 01-18-2024 End: 01-18-2024 Subsequent hospital visit by physician Zachery Toussaint MD Work Phone: Ambulatory Surgery Comment on above: Epigastric abdominal pain [R10.13] Start: 01-16-2024 End: 01-16-2024 ambulatory Ruby Kirkpatrick PT Work Phone: [facility] Comment on above: Acute medial meniscu s tear of left knee, subsequent encounter (Primary Dx); Chronic pain of left knee; Tear of medial meniscus of left knee, current, unspecified tear type, initial encounter Start: 01-08-2024 End: 01-08-2024 ambulatory Zachery Toussaint Facility:[facility] Start: 01-08-2024 End: 01-08-2024 Patient encounter procedure Marianna Yap APRN.BARREL INSPECTOR Work Phone: Internal Medicine [place] Comment on above: Epigastric abdominal pain (Primary Dx); Nausea; Encounter for immunization; Chronic pain of left knee Epigastric abdominal pain; Nausea Start: 12-27-2023 End: 12-27-2023 Subsequent hospital visit by physician [facility] Radiology Comment on above: Smoker [F17.200] Start: 12-27-2023 End: 12-27-2023 ambulatory UNKNOWN PROVIDER Facility:[facility] Start: 12-27-2023 End: 12-27-2023 Patient encounter procedure Smiley Santosprinceabraham DO Work Phone: Orthopaedics Comment on above: Tear of medial menis cus of left knee, current, unspecified tear type, initial encounter (Primary Dx); Chronic pain of left knee Lung nodule (Primary Dx); Encounter for screening for lung cancer; Smoker Start: 12-05-2023 End: 12-07-2023 Orders Only Arcelia Garcia APRN.BARREL INSPECTOR Work Phone: Pulmonary Medicine Comment on above: Smoker (Primary Dx); Encounter for screening for malignant neoplasm of lung Results Start: 12-01-2023 End: 12-01-2023 Subsequent hospital visit by physician [facility] Work Phone: Radiology Comment on above: Chronic pain of left knee [M25.562, G89.29] Start: 12-01-2023 End: 12-01-2023 ambulatory LEONID RICE Facility:[facility] Start: 12-01-2023 End: 12-01-2023 Office outpatient visit 25 minutes Eddie Rodríguez APRN.ECONOMICS TEACHER Work Phone: [facility] [place] Comment on [...] Start: 10-03-2023 End: 10-03-2023 ambulatory LEONID RICE Facility:[facility] Start: 10-03-2023 End: 10-03-2023 Subsequent hospital visit by physician [facility] Work Phone: Radiology Comment on above: Abnormal mammogram o f left breast [R92.8] Start: 09-13-2023 End: 09-13-2023 ambulatory Zachery Toussaint Facility:[facility] Start: 09-13-2023 End: 09-13-2023 Subsequent hospital visit by physician Zachery Toussaint MD Work Phone: Ambulatory Surgery Comment on above: Screening for colon cancer [Z12.11] Start: 09-11-2023 Orders Only Leonid gonzalez MD Work Phone: Internal Medicine [place] Comment on above: Abnormal mammogram o f left breast (Primary Dx) Results Start: 08-30-2023 Documentation procedure Mammog mily Coordinator [facility] Department Start: 08-30-2023 Letter encounter Mammography Coordinator [facility] Department Start: 08-30-2023 Telephone encounter Zachery patton MD Work Phone: General Surgery Comment on above: Orders; Patient Ques tion Start: 08-29-2023 End: 08-29-2023 ambulatory LEONID RICE Facility:[facility] Start: 08-29-2023 End: 08-29-2023 Subsequent hospital visit by physician [facility] Comment on above: Encounter for screen ing mammogram for malignant neoplasm of breast [Z12.31] Start: 08-23-2023 End: 08-23-2023 Patient encounter procedure Marianna Yap APRN.CNP Work Phone: Internal Medicine [place] Comment on above: Type 2 diabetes bear itus without complication, without long- term current use of insulin (HCC) (Primary Dx); Left hand pain; Moderate persistent asthma, unspecified whether complicated; Obesity, Class III, BMI >= 40; Screening for colon cancer; Encounter for immunization Start: 08-23-2023 End: 08-23-2023 ambulatory LEONID RIEC Facility:[facility] Start: 07-12-2023 Admission to same day surgery center Leonid Rice MD Work Phone: Ambulatory Surgery Start: 07-12-2023 ambulatory Leonid gonzalez MD Work Phone: Ambulatory Surgery Start: 06-02-2023 Refill Leonid gonzalez MD Work Phone: Internal Medicine [place] Comment on above: Refill Request Orders (Mammogram or sharee mailed to her home; I verified address as well./) Start: 03-20-2023 End: 03-20-2023 ambulatory LEONID RICE Facility:[facility] Start: 03-02-2023 End: 03-02-2023 ambulatory LEONID RICE Facility:[facility] Start: 02-21-2023 End: 02-21-2023 Emergency department patient visit MIKAEL PULIDO MD Facility:A Start: 02-21-2023 End: 02-21-2023 Emergency department patient visit MIKAEL PULIDO MD [facility] Start: 01-26-2023 ambulatory Leonid gonzalez MD Work Phone: Internal Medicine [place] Comment on above: Chest Pain Start: 01-26-2023 End: 01-26-2023 Emergency department patient visit Leonid Rice Facility:[facility] Start: 01-26-2023 End: 01-26-2023 Emergency department patient visit [facility] Work Phone: Start: 12-15-2022 End: 12-15-2022 Patient encounter procedure Meredith Jimenez APRN.CNP Work Phone: OB/Gynecology Comment on above: Skin yeast infection (Primary Dx) Start: 12-02-2022 Refill Dana hickman MD Work Phone: Pulmonary Medicine Comment on above: Refill Request Start: 11-28-2022 End: 11-28-2022 Patient encounter procedure Marianna Older FILTER WASHER AND PRESSER.BARREL INSPECTOR Work Phone: [facility] [place] Comment on above: Left hand pain (Prim cheng Dx); Need for influenza vaccination Start: 11-23-2022 Telephone encounter Marianna Older FILTER WASHER AND PRESSER.BARREL INSPECTOR Work Phone: Internal Medicine [place] Comment on above: Results Start: 11-18-2022 End: 11-18-2022 Subsequent hospital visit by physician [facility] [place] Work Phone: Radiology Comment on above: Left hand pain [M79. 642] Start: 11-18-2022 End: 11-18-2022 Patient encounter procedure Marianna Older FILTER WASHER AND PRESSER.BARREL INSPECTOR Work Phone: Internal Medicine [place] Comment on above: Left hand pain (Prim cheng Dx) Start: 07-27-2022 Telephone encounter Marianna Older FILTER WASHER AND PRESSER.BARREL INSPECTOR Work Phone: [facility] [place] Comment on above: Results Start: 06-13-2022 Telephone encounter Leonid mchugh MD Work Phone: Internal Medicine [place] Comment on above: Results Start: 06-06-2022 Documentation procedure Mammog mily Coordinator [facility] Start: 06-06-2022 Letter encounter Mammography Coordinator [facility] Department Start: 06-03-2022 End: 06-03-2022 Subsequent hospital visit by physician [facility] Comment on above: Encounter for screen ing mammogram for malignant neoplasm of breast [Z12.31] Start: 05-31-2022 End: 05-31-2022 Subsequent hospital visit by physician [facility] Work Phone: Radiology Comment on above: Canceled (CC cx: Err or or Template Change) Chronic left shoulde r pain [M25.512, G89.29] Start: 05-31-2022 End: 05-31-2022 Patient encounter procedure Leonid Rice MD Work Phone: Internal Medicine [place] Comment on above: Chronic left shoulde r pain (Primary Dx); Asthma with COPD (HCC); Type 2 diabetes mellitus without complication, without long-term current use of insulin (HCC); Encounter for screening mammogram for malignant neoplasm of breast; Constipation, unspecified constipation type Start: 05-25-2022 Refill eLonid gonzalez MD Work Phone: Internal Medicine [place] Comment on above: Refill Request Start: 04-06-2022 Telephone encounter Leonid mchugh MD Work Phone: Internal Medicine [place] Comment on above: Cpap Form; Lat OV no te Start: 04-01-2022 Telephone encounter Arcelia Garcia APRN.BARREL INSPECTOR Work Phone: Pulmonary Medicine Comment on above: Results (LDCT ) Start: 03-31-2022 End: 03-31-2022 Subsequent hospital visit by physician [facility] Radiology Comment on above: Smoker [F17.200] Start: 02-16-2022 End: 02-16-2022 Patient encounter procedure Fabienne Howard PA-C Work Phone: General Surgery Comment on above: Abscess of skin of a bdomen (Primary Dx) Start: 02-15-2022 End: 02-15-2022 Patient encounter procedure Arcelia Garcia APRN.BARREL INSPECTOR Work Phone: Pulmonary Medicine Comment on above: Encounter for screen ing for lung cancer (Primary Dx); Smoker Start: 02-14-2022 End: 02-14-2022 Emergency department patient visit Leonid Rice Facility:[facility] Start: 02-14-2022 End: 02-14-2022 Emergency department patient visit [facility] Start: 02-11-2022 End: 02-11-2022 Patient encounter procedure Leonid Rice MD Work Phone: Internal Medicine [place] Comment on above: Sebaceous cyst (Prim cheng Dx); Type 2 diabetes mellitus without complication, without long-term current use of insulin (HCC); Tobacco use Start: 12-31-2021 End: 12-31-2021 Patient encounter procedure Marianna Easley APRN.BARREL INSPECTOR Work Phone: Internal Medicine [place] Comment on above: Asthma with COPD (HC C) (Primary Dx); Type 2 diabetes mellitus without complication, without long-term current use of insulin (HCC); JOSSELIN (obstructive sleep apnea); Encounter for immunization; Tobacco use; Obesity, Class III, BMI >= 40; Severe episode of recurrent major depressive disorder, without psychotic features (HCC); Anxiety Start: 11-29-2021 End: 11-29-2021 Subsequent hospital visit by physician [facility] Work Phone: Radiology Comment on above: [...] Leonid gonzalez MD Work Phone: Internal Medicine [place] Comment on above: Refill Request Start: 10-14-2021 Telephone encounter Leonid mchugh MD Work Phone: Internal Medicine [place] Comment on above: Results Start: 10-06-2021 End: 10-06-2021 Subsequent hospital visit by physician [facility] Work Phone: Radiology Comment on above: Epigastric abdominal pain [R10.13] Start: 09-30-2021 End: 09-30-2021 Patient encounter procedure Leonid Rice MD Work Phone: Internal Medicine [place] Comment on above: Malaise (Primary Dx) ; [...] Emergency department patient visit DR MIKAEL PELLETIER [facility] Start: 06-26-2018 End: 06-26-2018 Emergency department patient visit CHAYO Poon [facility] Start: 04-25-2018 End: 04-28-2018 Patient encounter procedure CHAYO Poon [facility] Start: 04-10-2018 End: 04-10-2018 Patient encounter procedure FELIPA K [facility] Start: 02-22-2018 End: 02-22-2018 Emergency department patient visit CHAYO L [facility] Start: 01-30-2018 End: 02-02-2018 Patient encounter procedure CHAYO L [facility] Start: 01-09-2018 End: 01-09-2018 Patient encounter procedure FELIPA K [facility] Start: 12-19-2017 End: 12-19-2017 [facility] Start: 11-20-2017 End: 11-23-2017 Patient encounter procedure JOSEMANUEL ROJAS [facility] Start: 09-14-2017 End: 09-17-2017 Patient encounter procedure CATA MCCARTHY [facility] Start: 09-09-2017 End: 09-09-2017 Emergency department patient visit [facility] Start: 08-29-2017 Ambulatory YANELIS A DOTTIE Facility :8 Start: 07-20-2017 End: 07-20-2017 Ambulatory YANELIS A DOTTIE Facility:8 Start: 07-18-2017 End: 07-18-2017 Emergency department patient visit [facility] Start: 07-11-2017 Ambulatory YANELIS A DOTTIE Facility :8 Start: 06-08-2017 Ambulatory KIARRA GARCIA Facility:1 [id number] Start: 06-06-2017 Ambulatory KIARRA GARCIA Facility:1 [id number] Start: 06-06-2017 Ambulatory Facility:9 [id number] Procedures Date Procedure Procedure Detail Performing Clinician Start: 01-18-2024 Esophagogastroduodenoscopy transoral diagnostic Zachery Toussaint MD Work Phone: Start: 12-27-2023 CT LUNG SCREEN WO BRAYDEN Linocln Bossman Garcia FILTER WASHER AND PRESSER.BARREL INSPECTOR Work Phone: Start: 10-03-2023 Us breast uni real time with image limited Leonid Rice MD Work Phone: Start: 10-03-2023 Digital breast tomosynthesis unilateral Leonid Rice MD Work Phone: Start: 09-13-2023 Colonoscopy flx dx w/collj spec when pfrmd Mariannanarciso Yap FILTER WASHER AND PRESSER.BARREL INSPECTOR Work Phone: Start: 09-13-2023 Colonoscopy Zachery Toussaint MD Work Phone: Start: 01-26-2023 CT angiography of chest with contrast Start: 01-26-2023 Plain chest X-ray Start: 11-28-2022 INFLUENZA VACCINE, AGE 6 MO - 64 YR, QUADRIVALENT (AFLURIA, FLULAVAL, FLUZONE) Marianna Older FILTER WASHER AND PRESSER.BARREL INSPECTOR Work Phone: Start: 11-18-2022 Radex hand minimum 3 views Marianna loza FILTER WASHER AND PRESSER.BARREL INSPECTOR Work Phone: Start: 06-03-2022 End: 06-03-2022 Mammography Leonid Rice MD Work Phone: Start: 05-31-2022 Radex shoulder complete minimum 2 views Leonid Rice MD Work Phone: Start: 03-31-2022 CT LUNG SCREEN WO BRAYDEN Arcelia Garcia FILTER WASHER AND PRESSER.BARREL INSPECTOR Work Phone: Start: 02-16-2022 Cul bact xcpt urine blood/stool aerobic isol Fabienne Howard PA-C Work Phone: Start: 02-14-2022 Computed tomography of abdomen and pelvis with intravenous contrast Start: 11-29-2021 Radiologic exam abdomen 2 views Marianna norwood FILTER WASHER AND PRESSER.BARREL INSPECTOR Work Phone: Start: 10-06-2021 Us abdominal real [...] Detail Author Start: 05-06-2029 Urine microalbumin profile [facility] Start: 09-12-2028 Screening for malign ant neoplasm of colon [facility] Start: 01-07-2025 Annual PCP Team Brass Reclaimer zeeshan Disease Visit Annual PCP Team Chronic Disease Visit [facility] Start: 01-07-2025 Covid-19 Vaccine ( season) Covid-19 Vaccine ( season) [facility] Comment on above: Postponed from 11/11 (Declined at this time) Start: 01-07-2025 RSV Vaccine (1 - Ris k 60-74 years 1-dose series) RSV Vaccine (1 - Risk 60-74 years 1-dose series) [facility] Comment on above: Postponed from 11/11 (Declined at this time) Start: 12-30-2024 End: 12-30-2024 Patient encounter procedure Cat Scan Comment on above: Encounter for screen ing for lung cancer [Z12.2] Start: 12-26-2024 Screening for malign ant neoplasm of lung Lung Cancer Screening [facility] Start: 11-30-2024 Hepatitis B screening Urine Albumin:Creatinine Ratio [facility] Start: 11-30-2024 Hepatitis B surface antibody level LDL Cholesterol [facility] Start: 08-28-2024 Screening for malign ant neoplasm of breast Mammogram Screening [facility] Start: 08-22-2024 Annual PCP Team Brass Reclaimer zeeshan Disease Visit Annual PCP Team Chronic Disease Visit [facility] Start: 08-22-2024 Diabetic foot examination Diabetic Foot Exam [facility] Start: 07-08-2024 End: 07-08-2024 Patient encounter procedure 07/08/2024 11:00 AM EDT Office Visit [facility] [address] [place] [address] Marianna Yap, FILTER WASHER AND PRESSER.BARREL INSPECTOR [address] [place] [address] 6 month follow up [facility] [place] Comment on above: 6 month follow up Start: 05-30-2024 Hemoglobin A1c measurement HbA1C [facility] Start: 03-02-2024 Annual PCP Team Brass Reclaimer zeeshan Disease Visit Annual PCP Team Chronic Disease Visit [facility] Start: 02-15-2024 End: 02-15-2024 Patient encounter procedure 02/15/2024 10:00 AM EST Office Visit Orthopaedics [address] [place] [address] Smiley De La Paz DO [address] [place] [address] 4-6 week follow up Orthopaedics Comment on above: 4-6 week follow up Start: 01-30-2024 End: 01-30-2024 Patient encounter procedure 01/30/2024 9:30 AM EST Office Visit General Surgery [address] [place] [address] Jadyn Hough, MEÑO.BARREL INSPECTOR [address] [place] [address] 01-17 EGD follow up General Surgery Comment on above: 01-17 EGD follow up Start: 01-18-2024 End: 01-18-2024 Patient encounter procedure Ambulatory Surgery Comment on above: call daughter wilfredo Start: 01-16-2024 End: 01-16-2024 ambulatory 01/16/2024 1:15 PM EST OT/PT/Speech Visit [facility] [address] [place] [address] Ruby Kirkpatrick, PT [address] [place] [place] [address] Chronic pain of left knee [M25.562, G89.29] [facility] Comment on above: Chronic pain of left knee [M25.562, G89.29] Start: 01-08-2024 End: 01-08-2024 Patient encounter procedure 01/08/2024 11:00 AM EDT Office Visit [facility] [place] [address] [place] [address] Marianna Yap, FILTER WASHER AND PRESSER.BARREL INSPECTOR [address] [place] [address] follow up [facility] [place] Comment on above: follow up Start: 01-04-2024 End: 11-02-2024 MG Breast - left Diagnostic for implant [facility] Radiology Routine Abnormal mammogram of left breast Expected: 01/04/2024, Expires: 11/02/2024 [facility] Work Phone: Comment on above: Expected: 01/04/2024 , Expires: 11/02/2024 Start: 12-27-2023 End: 12-27-2023 Patient encounter procedure Radiology Comment on above: Smoker [F17.200] Type 2 diabetes bear itus without complication, without long-term current use of insulin (HCC) [E11.9] Start: 12-04-2023 End: 12-04-2023 Patient encounter procedure 12/04/2023 9:30 AM EDT Office Visit Orthopaedics [address] [place] [address] Miranda Milner PA-C [address] [place] [address] Left hand pain [M79.642] Orthopaedics Comment on above: Left hand pain [M79. 642] Start: 12-01-2023 End: 03-01-2024 Comprehensive metabolic 2000 panel - Serum or Plasma [facility] Comment on above: Expected: 12/01/2023 , Expires: 03/01/2024 Start: 12-01-2023 End: 03-01-2024 Hemoglobin A1c in Blood [facility] Comment on above: Expected: 12/01/2023 , Expires: 03/01/2024 Start: 12-01-2023 End: 03-01-2024 Lipid 1996 panel - Serum or Plasma [facility] Comment on above: Expected: 12/01/2023 , Expires: 03/01/2024 Start: 12-01-2023 End: 03-01-2024 Microalbumin/Creatinine [Mass Ratio] in Urine [facility] Work Phone: Comment on above: Expected: 12/01/2023 , Expires: 03/01/2024 Start: 11-29-2023 Annual PCP Team Brass Reclaimer zeeshan Disease Visit Annual PCP Team Chronic Disease Visit [facility] Start: 11-19-2023 ANNUAL PCP TEAM INSPECTION ENGINEER ZEESHAN DISEASE VISIT ANNUAL PCP TEAM CHRONIC DISEASE VISIT [facility] Start: 11-12-2023 Covid-19 Vaccine ( season) Covid-19 Vaccine ( season) [facility] Start: 11-12-2023 Covid-19 Vaccine ( season) Covid-19 Vaccine ( season) [facility] Start: 11-12-2023 Influenza vaccination Influenza Vacc ine (#1) [facility] Start: 10-18-2023 Shingrix Vaccine (2 of 2) Shingrix Vaccine (2 of 2) [facility] Start: 10-03-2023 End: 10-03-2023 Patient encounter procedure Mammogram Comment on above: LEFT DIAGNOSTIC MAMM OGRAM CALLBACK COMP CB LT Start: 09-13-2023 End: 09-13-2023 Patient encounter procedure 09/13/2023 7:30 AM EDT Appointment Ambulatory Surgery [address] [place] [address] Zachery Toussaint MD [address] [place] [address] Screening for colon cancer [Z12.11] Ambulatory Surgery Comment on above: Screening for colon cancer [Z12.11] Start: 08-29-2023 End: 08-29-2023 Patient encounter procedure 08/29/2023 1:10 PM EDT Appointment [address] [address] [place] [address] CALVIN SCREENING W SUE Mammogram Comment on above: CALVIN SCREENING W SUE Start: 08-23-2023 End: 08-23-2023 Patient encounter procedure 08/23/2023 5:40 PM EDT Office Visit [facility] [place] [address] [facility] [place] [place] [address] Marianna Yap, FILTER WASHER AND PRESSER.BARREL INSPECTOR [address] [facility] [address] Yearly w/3 month follow-up. patient overdue for colonoscopy [facility] Comment on above: Yearly w/3 month fol low-up. patient overdue for colonoscopy Start: 08-23-2023 End: 11-22-2023 Comprehensive metabolic 2000 panel - Serum or Plasma COMPREHENSIVE METABOLIC PANEL Lab Routine Type 2 diabetes mellitus without complication, without long-term current use of insulin (HCC) Expected: 08/23/2023, Expires: 11/22/2023 [facility] Work Phone: Comment on above: Expected: 08/23/2023 , Expires: 11/22/2023 Start: 08-23-2023 End: 11-22-2023 Hemoglobin A1c in Blood HEMOGLOBIN A1C Lab Routine Type 2 diabetes mellitus without complication, without long-term current use of insulin (HCC) Expected: 08/23/2023, Expires: 11/22/2023 [facility] Comment on above: Expected: 08/23/2023 , Expires: 11/22/2023 Start: 08-23-2023 End: 11-22-2023 Lipid 1996 panel - Serum or Plasma LIPID PANEL BASIC Lab Routine Type 2 diabetes mellitus without complication, without long-term current use of insulin (HCC) Expected: 08/23/2023, Expires: 11/22/2023 [facility] Comment on above: Expected: 08/23/2023 , Expires: 11/22/2023 Start: 08-23-2023 End: 11-22-2023 Microalbumin/Creatinine [Mass Ratio] in Urine ALBUMIN/CREATININE RATIO, URINE Lab Routine Type 2 diabetes mellitus without complication, without long-term current use of insulin (HCC) Expected: 08/23/2023, Expires: 11/22/2023 [facility] Comment on above: Expected: 08/23/2023 , Expires: 11/22/2023 Start: 08-12-2023 Glaucoma screening Dilated Retinal E xam [facility] Start: 08-12-2023 Hepatitis C antibody , confirmatory test DILATED RETINAL EXAM [facility] Start: 06-04-2023 Mammography [facility] Start: 06-04-2023 Screening for malign ant neoplasm of breast Mammogram Screening [facility] Start: 06-01-2023 ANNUAL PCP TEAM INSPECTION ENGINEER ZEESHAN DISEASE VISIT ANNUAL PCP TEAM CHRONIC DISEASE VISIT [facility] Start: 03-31-2023 Influenza vaccination LUNG CANCER SC REENING [facility] Start: 03-31-2023 Screening for malign ant neoplasm of lung Lung Cancer Screening [facility] Start: 02-11-2023 ANNUAL PCP TEAM INSPECTION ENGINEER ZEESHAN DISEASE VISIT ANNUAL PCP TEAM CHRONIC DISEASE VISIT [facility] Start: 01-26-2023 [facility] Start: 01-26-2023 [facility] Start: 01-02-2023 Colonoscopy COLONOSCOPY [facility] Start: 01-02-2023 COLORECTAL CANCER SCREENING COLORECTAL CANCER SCREENING [facility] Start: 01-02-2023 Screening for malign ant neoplasm of colon [facility] Start: 12-31-2022 ANNUAL PCP TEAM INSPECTION ENGINEER ZEESHAN DISEASE VISIT ANNUAL PCP TEAM CHRONIC DISEASE VISIT [facility] Start: 12-31-2022 COVID-19 VACCINE (3 - Booster for Moderna series) COVID-19 VACCINE (3 - Booster for Moderna series) [facility] Comment on above: Postponed from 09/02 (Declined at this time) Start: 12-31-2022 COVID-19 VACCINE (3 - Moderna series) COVID-19 VACCINE (3 - Moderna series) [facility] Comment on above: Postponed from 09/02 (Declined at this time) Start: 12-31-2022 SHINGRIX VACCINE (1 of 2) SHINGRIX VACCINE (1 of 2) [facility] Comment on above: Postponed from 11/11 (Declined at this time) Start: 12-01-2022 Hemoglobin A1c measurement HbA1C [facility] Start: 12-01-2022 Hemoglobin A1c/Hemoglobin.total in Blood HBA1C [facility] Start: 11-29-2022 ANNUAL PCP TEAM INSPECTION ENGINEER ZEESHAN DISEASE VISIT ANNUAL PCP TEAM CHRONIC DISEASE VISIT [facility] Start: 11-18-2022 End: 01-18-2023 C reactive protein [Mass/volume] in Serum or Plasma [facility] Work Phone: Comment on above: Expected: 11/18/2022 , Expires: 01/18/2023 Start: 11-18-2022 End: 01-18-2023 Urate [Mass/volume] in Serum or Plasma [facility] Work Phone: Comment on above: Expected: 11/18/2022 , Expires: 01/18/2023 Start: 2022 Covid-19 Vaccine (2022- season) Covid-19 Vaccine (2022- season) [facility] Start: 2022 Hepatitis B Vaccine (1 of 3 - Risk 3-dose series) Hepatitis B Vaccine (1 of 3 - Risk 3-dose series) [facility] Start: 2022 Influenza vaccination [facility] Start: 2022 RSV Vaccine (1 - 1-d ose 60+ series) RSV Vaccine (1 - 1-dose 60+ series) [facility] Start: 2022 RSV Vaccine (1 - Ris k 60-74 years 1-dose series) RSV Vaccine (1 - Risk 60-74 years 1-dose series) [facility] Start: 09-30-2022 3 comp foot exam completed DIABETIC FOOT EXAM [facility] Start: 09-30-2022 ANNUAL PCP TEAM INSPECTION ENGINEER ZEESHAN DISEASE VISIT ANNUAL PCP TEAM CHRONIC DISEASE VISIT [facility] Start: 09-30-2022 Diabetic foot examination Diabetic Foot Exam [facility] Start: 09-30-2022 Hepatitis B screening URINE ALBUMIN:CREATININE RATIO [facility] Start: 09-30-2022 Hepatitis B surface antibody level LDL CHOLESTEROL [facility] Start: 09-09-2022 Influenza vaccination INFLUENZA (#1) [facility] Comment on above: Postponed from 11/11 (Declined at this time) Start: 07-27-2022 End: 09-26-2022 Basic metabolic 2000 panel - Serum or Plasma BASIC METABOLIC PNL Lab Routine Hyperkalemia Expected: 07/27/2022, Expires: 09/26/2022 [facility] Work Phone: Comment on above: Expected: 07/27/2022 , Expires: 09/26/2022 Start: 06-18-2022 Hepatitis C antibody , confirmatory test DILATED RETINAL EXAM [facility] Start: 05-12-2022 End: 07-12-2022 Basic metabolic 2000 panel - Serum or Plasma BASIC METABOLIC PNL Lab Routine Type 2 diabetes mellitus without complication, without long-term current use of insulin (HCC) Expected: 05/12/2022, Expires: 07/12/2022 [facility] Work Phone: Comment on above: Expected: 05/12/2022 , Expires: 07/12/2022 Start: 05-12-2022 End: 07-12-2022 Hemoglobin A1c in Blood HGB A1C Lab Routine Type 2 diabetes mellitus without complication, without long-term current use of insulin (HCC) Expected: 05/12/2022, Expires: 07/12/2022 [facility] Work Phone: Comment on above: Expected: 05/12/2022 , Expires: 07/12/2022 Start: 04-22-2022 Mammography MAMMOGRAM [facility] Start: 04-02-2022 ANNUAL PCP TEAM INSPECTION ENGINEER ZEESHAN DISEASE VISIT ANNUAL PCP TEAM CHRONIC DISEASE VISIT [facility] Start: 04-02-2022 Hemoglobin A1c/Hemoglobin.total in Blood HBA1C [facility] Start: 2021 Influenza vaccination INFLUENZA (#1) [facility] Start: 10-17-2021 Hepatitis B screening URINE ALBUMIN:CREATININE RATIO [facility] Start: 10-17-2021 Hepatitis B surface antibody level LDL CHOLESTEROL [facility] Start: 09-30-2021 3 comp foot exam completed DIABETIC FOOT EXAM [facility] Start: 07-21-2022 Hemoglobin A1c/Hemoglobin.total in Blood HBA1C [facility] Start: 05-20-2021 Influenza vaccination LUNG CANCER SC REENING [facility] Start: 12-08-2020 COVID-19 VACCINE (3 - Booster for Moderna series) COVID-19 VACCINE (3 - Booster for Moderna series) [facility] Start: 05-06-2020 PNEUMOCOCCAL (2 - PCV) PNEUMOCOCCAL (2 - PCV) [facility] Start: 2012 SHINGRIX VACCINE (1 of 2) SHINGRIX VACCINE (1 of 2) [facility] Start: 11-24-2011 FECAL OCCULT BLOOD FECAL OCCULT BLOO D [facility] Start: 11-24-2011 Screening for malign ant neoplasm of colon Fecal Occult Blood [facility] Start: 11-12-2007 COLOGUARD (FIT-DNA) COLOGUARD (FIT-D NA) [facility] Start: 11-12-[address] COLONOGRAPHY [facility] Start: 11-12-2007 Screening for malign ant neoplasm of colon [facility] Start: 11-12-2007 SIGMOIDOSCOPY SIGMOIDOSCOPY [facility] Start: 1981 HEPATITIS B (1 of 3 - Risk 3-dose series) HEPATITIS B (1 of 3 - Risk 3-dose series) [facility] Start: 1962 HEPATITIS B (1 of 3 - 3-dose series) HEPATITIS B (1 of 3 - 3-dose series) [facility] Bacteria identified in Wound by Culture WOUND CULTURE AND GRAM STAIN Microbiology Routine Abscess of skin of abdomen 02/16/2022 9:02 AM EST [facility] Work Phone: End: 10-16-2024 CT Chest for screening WO contrast CT LUNG SCREEN WO IVCON Radiology Routine Smoker Encounter for screening for malignant neoplasm of lung 1 Occurrences starting 12/05/2023 until 10/16/2024 [facility] Work Phone: Comment on above: 1 Occurrences starti ng 12/05/2023 until 10/16/2024 End: 01-25-2025 CT Chest for screening WO contrast CT LUNG SCREEN WO IVCON Radiology Routine Encounter for screening for lung cancer Smoker 1 Occurrences starting 12/27/2023 until 01/25/2025 [facility] Work Phone: Comment on above: 1 Occurrences starti ng 12/27/2023 until 01/25/2025 End: 03-17-2023 CT LUNG SCREEN WO IVCON CT LUNG SCREEN WO IVCON Radiology Routine Smoker Encounter for screening for lung cancer 1 Occurrences starting 02/15/2022 until 03/17/2023 [facility] Work Phone: Comment on above: 1 Occurrences starti ng 02/15/2022 until 03/17/2023 End: 07-02-2024 DBT Breast - bilateral screening CALVIN SCREENING W SUE Radiology Routine Encounter for screening mammogram for malignant neoplasm of breast 1 Occurrences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 Additional Information VACCINATE! IT SAVES LIVES! Members of the community who have not yet received the COVID-19 vaccine and would like to receive it can visit one of [facility] vaccine clinics. There are many vaccine clinic locations within the [facility]. For locations and available times, please visit [email or web address] It is important to note that some COVID mobile vaccine clinics are held outdoors and may be canceled in rainy or stormy conditions. To learn more about pediatric vaccinations (ages 5-11), we invite you to visit the [facility] webpage. [email or web address] To learn more about the COVID-19 vaccine, we invite you to visit the CDC website for a list of frequently asked questions. https://www.cdc.gov/coronavirus/-ncov/vaccines/faq.html [employer] Patient Portal Access Instructions: Stay connected with your healthcare team and access your personal medical information anytime with the [employer] Patient Portal. If you would like a full copy of your medical records please contact the [facility] Medical Records Department Monday through Monday between 8a.m. and 4:30p.m. Please follow the directions below to access the portal: 1.Access the email account you provided upon registration to the [facility].2.Look for an invitation email from [facility].3.Open the email and access the invitation link: Accept Invitation to [email or web address].Fill in the required hernandez to create your [...] you will allow to register on the [facility] Patient Portal for access to your information. You can also access the [email or web address] Patient Portal on the [employer] alisson. Simply click on Health Records under [...] Call your local pharmacy or go to [email or web address] to find one close to you.3.Make use of household items: Use cat litter or old coffee grounds to dispose medications if other options are not available. Mix your drugs with these household products, seal them in an airtight container and throw it into the garbage. Call [facility]: [phone] to be sure your drugs can be [...] aware that I should contact my doctor. 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 Signature: Date/Time: Relationship to Patient: ___ Witness Name/Signature: Date/Time: [facility] 02-21-2023 Note ORIGINAL EXAMINATION: CT OF [...] Sign Date: 02/21/2023 1:44:14 PM Ordering Provider: [facility] 02-21-2023 Note ORIGINAL EXAMINATION: CT OF THE CHEST WITH MRXUOFVH22/12/2023 1:18 pm TECHNIQUE: CT of the chest [...] Sign Date: 02/21/2023 1:39:30 PM Ordering Provider: [facility] 02-21-2023 Note ORIGINAL EXAMINATION: CT HEAD [...] Sign Date: 02/21/2023 1:12:11 PM Ordering Provider: [facility] 02-21-2023 Note ORIGINAL EXAMINATION: TWO XRAY [...] Sign Date: 02/21/2023 12:54:24 PM Ordering Provider: [facility] 02-21-2023 Note ORIGINAL EXAMINATION: TWO XRAY [...] Sign Date: 02/21/2023 12:53:20 PM Ordering Provider: [facility] 02-21-2023 Note ORIGINAL EXAMINATION: ONE XRAY [...] Sign Date: 02/21/2023 12:52:43 PM Ordering Provider: [facility] 02-21-2023 Note ORIGINAL EXAMINATION: ONE XRAY [...] Sign Date: 02/21/2023 12:51:57 PM Ordering Provider: [facility] 01-26-2023 Miscellaneous Notes Protocol recommends call 911 now. Pt is agreeable to plan, states she will be going to [facility] ER. Care plan reviewed with patient. [...] cough. 11. : Postmenopausal Protocols used: Chest [id number] documented in this encounter [facility] 12-15-2022 Instructions Meredith Jimenez APRN.RIGO - 12/15/2022 10:37 AM EDT Use the prescription cream twice a day to the affected area and also use coconut oil twice a day in between use of the prescription cream documented in this encounter [facility] 12-15-2022 History of Present illness Narrative Switchboard Manager offered: Patient declines. Jennifer Mcmullen is a [...] Comment: lost during a TRAVIS performed in [place] per pt. 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 lax anal tone. Giovanna in [facility] COLONOSCOPY FLX DX W/COLLJ SPEC WHEN PFRMD 06/12/2014 Colonoscopy out pt [facility] EGD 04/10/2018 Hpylori negative - Giovanna in [facility] ESOPHAGOGASTRODUODENOSCOPY TRANSORAL DIAGNOSTIC 06/12/2014 EGD outpt [facility] HERNIA REPAIR HX 12/01/2011 TOTAL ABDOMINAL HYSTERECT W/WO RMVL TUBE OVARY 1980 fibroid FAMILY HISTORY Problem Relation Age of Onset Heart Mother 70 Diabetes Mother Hypertension Mother Asthma Mother Hypertension Father Diabetes Father Colon Cancer Father in his seventies Asthma Sister Asthma Brother Seizures Brother Coronary Artery Disease Brother [place] Social History Tobacco Use Smoking status: Every [...] external genitalia normal, normal Bartholin's glands, urethra, Keefton's glands, no vulvar lesions, physiologic discharge present, [...] 3 - Low documented in this encounter [facility] 12-04-2022 Miscellaneous Notes I will refill with [...] THE LUNGS once daily Patient Phone numbers: [phone] (home) Request is for script(s) to be escript to pharmacy. Danielle Melendez documented in this encounter [facility] 11-28-2022 History of Present illness Narrative CC: [...] back pain 05/27/2014 Work injury 2006 Depression [facility] Diabetes mellitus (HCC) Disc slipped disc in back Fracture of right ankle Head injury Helicobacter pylori infection 09/12/2016 Hernia, hiatal Hyperglycemia 2010 Insomnia JOSSELIN (obstructive sleep apnea) 02/25/2019 Post-traumatic headache 01/16/2014 Postmenopausal Prediabetes 04/08/2019 PTSD (post-traumatic stress disorder) Tobacco use PAST SURGICAL HISTORY Procedure Laterality Date APPENDECTOMY 2013 Home SECTION HX 1980 x 2 CHOLECYSTECTOMY 1990 COLONOSCOPY 01/10/2018 Random bx neg. internal hemorrhoids. lax anal tone. Giovanna in [facility] COLONOSCOPY FLX DX W/COLLJ SPEC WHEN PFRMD 06/12/2014 Colonoscopy out pt [facility] EGD 04/10/2018 Hpylori negative - Giovanna in [facility] ESOPHAGOGASTRODUODENOSCOPY TRANSORAL DIAGNOSTIC 06/12/2014 EGD outpt [facility] HERNIA REPAIR HX 12/01/2011 TOTAL ABDOMINAL [...] by mouth daily at bedtime. Noble Gilbert, BARREL INSPECTOR[facility]. FLUoxetine (PROZAC) 20 mg capsule [...] Brother Seizures Brother Coronary Artery Disease Brother [place] Social History Tobacco Use Smoking status: Every [...] Marianna Easley APRN.CNP documented in this encounter [facility] 11-28-2022 Instructions Marianna Easley APRN.CNP - 11/28/2022 [...] llave. Diagn stico Arredondo m dico le lynda preguntas sobre las amos y otras articulaciones. [...] significa que la articulaci n no se grease maker head , willis tampoco doler . Otra opci [...] mejor para usted. documented in this encounter [facility] 11-25-2022 Miscellaneous Notes Scheduled. Schedule follow-up for next week Marianna Easley APRN.CNP Phoned patient and went over results, notes from Marianna Easley BACK SHOE WORKER with understanding. Patient said no improvement, her hands hurt a lot all the time. ----- Message from Marianna Easley APRN.CNP sent at 11/23/2022 2:12 PM EDT ----- Please let the patient know her labs were normal. 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 Has there been any improvement in pain? Marianna Easley APRN.CNP documented in this encounter [facility] 11-18-2022 History of Present illness Narrative Radiology [...] 2022 1:59 PM documented in this encounter [facility] 11-18-2022 Instructions Marianna Easley APRN.CNP - 11/18/2022 1:37 PM EDT For hand pain: start prednisone, follow prescription instructions. This may cause your blood sugars to be higher than usual. Please call the office if your blood sugar is over 300. documented in this encounter [facility] 11-18-2022 History of Present illness Narrative CC: [...] back pain 05/27/2014 Work injury 2006 Depression [facility] Diabetes mellitus (HCC) Disc slipped disc in back Fracture of right ankle Head injury Helicobacter pylori infection 09/12/2016 Hernia, hiatal Hyperglycemia 2010 Insomnia JOSSELIN (obstructive sleep apnea) 02/25/2019 Post-traumatic headache 01/16/2014 Postmenopausal Prediabetes 04/08/2019 PTSD (post-traumatic stress disorder) Tobacco use PAST SURGICAL HISTORY Procedure Laterality Date APPENDECTOMY 2012 Home SECTION HX 1979 x 2 CHOLECYSTECTOMY 1989 COLONOSCOPY 01/10/2018 Random bx neg. internal hemorrhoids. lax anal tone. Giovanna in [facility] COLONOSCOPY FLX DX W/COLLJ SPEC WHEN PFRMD 06/12/2014 Colonoscopy out pt [facility] EGD 04/10/2018 Hpylori negative - Giovanna in [facility] ESOPHAGOGASTRODUODENOSCOPY TRANSORAL DIAGNOSTIC 06/12/2014 EGD outpt [facility] HERNIA REPAIR HX 12/01/2011 TOTAL ABDOMINAL [...] Brother Seizures Brother Coronary Artery Disease Brother [place] Social History Tobacco Use Smoking status: Every [...] Marianna Easley APRN.CNP documented in this encounter [facility] 07-27-2022 Miscellaneous Notes Pt called and is notified of providers results and instructions. Pt voices understanding. Fabienne Babulski, RN Please let the patient know I reviewed her lab results from 05/31. HgbA1c 6.3, diabetes well controlled. Kidney function was stable. Potassium slightly elevated, recheck at her earliest convenience Marianna Easley APRN.BARREL INSPECTOR documented in this encounter [facility] 06-13-2022 Miscellaneous Notes Patient notified of below results/recommendation, verbalized understanding. Sanam Aragon LPN ----- Message from Leonid Rice MD sent at 06/12/2022 12:11 PM EDT ----- Shoulder xray mild arthritis of acromioclavicular joint. Continue meloxicam. documented in this encounter [facility] 06-06-2022 Miscellaneous Notes June 07, 2022 PID: [id number] Jennifer Mcmullen [address] [place] [address] Dear Ms. Yajaira Mcmullen, We are pleased [...] report will be kept on file at [facility] as part of your permanent medical record and are available for your continuing care. Thank you for allowing us to help in meeting your health care needs. Sincerely, Dr. Mitchell Interpreting Radiologist [facility] (Normal over 40) documented in this encounter [facility] 06-03-2022 History of Present illness Narrative Radiology [...] 2022 12:33 PM documented in this encounter [facility] 05-31-2022 Instructions Leonid Rice MD - 05/31/2022 10:43 AM EDT BLOOD WORK TODAY. documented in this encounter [facility] 05-31-2022 History of Present illness Narrative This note was created using [employer]. Subjective Jennifer Mcmullen is a 61 year [...] Complication, Without Long-Term Current Use of Insulin ([facility]) Social History Tobacco Use Smoking status: [...] by mouth daily at bedtime. Noble Gilbert, [facility], [facility]. FLUoxetine (PROZAC) 20 mg [...] Leonid Rice MD documented in this encounter [facility] 05-25-2022 Miscellaneous Notes Patient has been identified [...] Christina Jeong Pss documented in this encounter [facility] 04-07-2022 Miscellaneous Notes All faxed to number [...] reporting Pt is using a Cpap to [phone]. documented in this encounter [facility] 04-01-2022 Miscellaneous Notes Spoke with patient's daughter listed as emergency bus person dishwasher) regarding LDCT category 1 results with follow-up recommended in one year for annual LCS. She comprehend and agreeable with plan. Arcelia Garcia APRN.RIGO documented in this encounter [facility] 03-31-2022 Miscellaneous Notes Radiology Service Progress Note [...] 2022 1:59 PM documented in this encounter [facility] 02-16-2022 Instructions Lakeisha Silva LPN - 02/16/2022 [...] General Surgery department. documented in this encounter [facility] 02-16-2022 History of Present illness Narrative UNIVERSAL [...] back pain 05/27/2014 Work injury 2006 Depression [facility] Diabetes mellitus (HCC) Disc slipped disc in back Fracture of right ankle Head injury Helicobacter pylori infection 09/12/2016 Hernia, hiatal Hyperglycemia 2010 Insomnia JOSSELIN (obstructive sleep apnea) 02/25/2019 Post-traumatic headache 01/16/2014 Postmenopausal Prediabetes 04/08/2019 PTSD (post-traumatic stress disorder) Tobacco use OPERATIONS: PAST SURGICAL HISTORY Procedure Laterality Date APPENDECTOMY 2012 Home SECTION HX 1980 x 2 CHOLECYSTECTOMY 1989 COLONOSCOPY 01/10/2018 Random bx neg. internal hemorrhoids. lax anal tone. Giovanna in [facility] COLONOSCOPY FLX DX W/COLLJ SPEC WHEN PFRMD 06/12/2014 Colonoscopy out pt [facility] EGD 04/10/2018 Hpylori negative - Giovanna in [facility] ESOPHAGOGASTRODUODENOSCOPY TRANSORAL DIAGNOSTIC 06/12/2014 EGD outpt [facility] HERNIA REPAIR HX 12/01/2011 TOTAL ABDOMINAL [...] by mouth daily at bedtime. Noble Gilbert, [facility]. FLUoxetine (PROZAC) 20 mg capsule [...] Brother Seizures Brother Coronary Artery Disease Brother [place] REVIEW OF SYMPTOMS: The review of systems data was entered by the nurse and reviewed by md Nursing Notes: Va Padilla LPN 02/16/2022 8:06 [...] Fabienne Howard PA-C documented in this encounter [facility] 02-16-2022 Nurse Note REVIEW OF SYSTEMS: General: [...] Va Padilla LPN documented in this encounter [facility] 02-15-2022 Instructions Arcelia Garcia APRN.BARREL INSPECTOR - 02/15/2022 11:[address] Lung [...] receive this result. Lung Cancer Screening hotline: [phone] Lung Cancer Screening [phone] Billing Questions: or [email or web address] Lung Cancer Screening Team: Fabienne Mcnair CNP; Bossman Garcia CNP; Colette Cornejo CNP; Elisa Lord CNP, SELVIN LevinC: [phone] Josemanuel Swanson PA-C Cigarette Logs : Record [...] candy are also excellent oral substitutes. Phone [phone] ([phone]) as additional resource. documented in this encounter [facility] 02-15-2022 History of Present illness Narrative Images [...] screening. Here with daughter who assisted with polish translation Respiratory symptoms include: SOB: Yes with [...] neb/rescue inhaler. Follows with general pulmonology at [place]. Fever/Chills: No Recent Respiratory Infection: No Unintentional [...] 50% of waking hrs. Modified [employer] [place] Dyspnea Scale (MMRC) On level ground I [...] back pain 05/27/2014 Work injury 2006 Depression [facility] Diabetes mellitus (HCC) Disc slipped disc in back Fracture of right ankle Head injury Helicobacter pylori infection 09/12/2016 Hernia, hiatal Hyperglycemia 2010 Insomnia JOSSELIN (obstructive sleep apnea) 02/25/2019 Post-traumatic headache 01/16/2014 Postmenopausal Prediabetes 04/08/2019 PTSD (post-traumatic stress disorder) Tobacco use PAST SURGICAL HISTORY Procedure Laterality Date APPENDECTOMY 2012 Home SECTION HX 1980 x 2 CHOLECYSTECTOMY 1989 COLONOSCOPY 01/10/2018 Random bx neg. internal hemorrhoids. lax anal tone. Giovanna in [facility] COLONOSCOPY FLX DX W/COLLJ SPEC WHEN PFRMD 06/12/2014 Colonoscopy out pt [facility] EGD 04/10/2018 Hpylori negative - Giovanna in [facility] ESOPHAGOGASTRODUODENOSCOPY TRANSORAL DIAGNOSTIC 06/12/2014 EGD outpt [facility] HERNIA REPAIR HX 12/01/2011 TOTAL ABDOMINAL HYSTERECT W/WO RMVL TUBE OVARY 1980 fibroid FAMILY HISTORY Problem Relation Age of Onset Heart Mother 70 Diabetes Mother Hypertension Mother Asthma Mother Hypertension Father Diabetes Father Colon Cancer Father in his seventies Asthma Sister Asthma Brother Seizures Brother Coronary Artery Disease Brother [place] albuterol (PROVENTIL) 2.5 mg /3 mL (0.083 [...] by mouth daily at bedtime. Noble Gilbert, [facility]. FLUoxetine (PROZAC) 20 mg capsule [...] Function Testing: SPIROMETRY WITH DILATOR IF OBSTRUCTED ([id number]) - ordered on 10/18/18 [facility] [address] [facility] [place] [address] Test Date: 2018-10-18 Pat Name: JENNIFER MCMULLEN Department: Room: Gender: Female Consulting Utility Forester: : 1960 Requested By: Order Number: [id number] Reading MD: Zack Walker Interpretive Statements ATS [...] 7:37:30 EDT by Zack Walker [facility] [address] [place], [place] [address] PFT Lab Report Name: JENNIFER RAMIREZ ID: [id number] Date: 10/18/18 Physician: Genaro JACK Age: 57 Height(in): 60.0 Weight(lb): 234 Gender: Female Race: Diagnosis: Medication Set 1: Dyspnea Rest: No Dyspnea Exercise: No Cough: No Persistent: No Productive (cc): Smoker: No How Long: Stopped: Cigarettes: No Consulting Utility Forester: Suha Dodson RCP Temp: 26 PBar: 734 PF Reference: ######## Spirometry Hb: gm/dL Ref Pre Pre Post Post Post Enedelia % Ref Enedelia % Ref % Chg FVC Liters 2.94 1.64 56 FEV1 Liters 2.30 1.33 58 FEV1/FVC % 79 81 VYM42-33% L/sec 2.33 1.49 64 QldKNS67-63 L/sec 2.50 1.49 60 PEF L/sec 5.92 4.11 69 FEI888% Sec 6.26 MVV L/min 92 f BPM [...] year risk for lung cancer: 1.4 Source: SecureWaters [email or web address]://[email or web address]/ [email or web address] I have determined that the patient [...] candy are also excellent oral substitutes. Phone [phone] ([phone]) as additional resource. The medical conditions adversely affected by cigarette use include:Diabetes. The patient is currently not ready to quit. I personally spent 6 minutes in counseling. The time spent in smoking cessation counseling is exclusive of any other counseling during this visit. I spent a total of 30 minutes on the date of the service which included preparing to see the patient, [id number] patient care, completing clinical documentation, obtaining and/or reviewing separately obtained history, counseling and educating the patient/family/caregiver, ordering medications, tests, or procedures, and communicating results to the patient/family/caregiver. Arcelia Garcia APRN.RIGO NPI #: February 15, 2022 11:11 AM documented in this encounter [facility] 02-11-2022 History of Present illness Narrative This note was created using invi. Subjective Jennifer Mcmullen is a 61 year old female. She noted a sore lump on her lower mid abdomen 5 days ago. This was tender, but with no drainage. She was planning to travel for [place] and was interested in having this drained [...] Leonid Rice MD documented in this encounter [facility] 12-31-2021 History of Present illness Narrative CC: [...] complication, without long-term current use of insulin ([facility]) Home blood sugar readings: daily, average around [...] back pain 05/27/2014 Work injury 2006 Depression [facility] Diabetes mellitus (HCC) Disc slipped disc in [...] internal hemorrhoids. lax anal tone. Giovanna in [facility] COLONOSCOPY FLX DX W/COLLJ SPEC WHEN PFRMD 06/12/2014 Colonoscopy out pt [facility] EGD 04/10/2018 Hpylori negative - Giovanna in [facility] ESOPHAGOGASTRODUODENOSCOPY TRANSORAL DIAGNOSTIC 06/12/2014 EGD outpt [facility] HERNIA REPAIR HX 12/01/2011 TOTAL ABDOMINAL [...] by mouth daily at bedtime. Noble Gilbert, [facility]PECT[facility]. FLUoxetine (PROZAC) 20 mg capsule [...] Brother Seizures Brother Coronary Artery Disease Brother [place] Social History Tobacco Use Smoking status: Every [...] Marianna Easley APRN.CNP documented in this encounter [facility] 11-29-2021 History of Present illness Narrative Radiology [...] 2021 2:42 PM documented in this encounter [facility] 11-29-2021 Instructions Marianna Easley APRN.CNP - 11/29/2021 [...] 100.5, rigid/hard abdomen. documented in this encounter [facility] 11-29-2021 History of Present illness Narrative CC: [...] low back pain 05/27/2014 Work injury 2006 [facility] Diabetes mellitus (HCC) Disc slipped disc in [...] internal hemorrhoids. lax anal tone. Giovanna in [facility] COLONOSCOPY FLX DX W/COLLJ SPEC WHEN PFRMD 06/12/2014 Colonoscopy out pt [facility] EGD 04/10/2018 Hpylori negative - Giovanna in [facility] ESOPHAGOGASTRODUODENOSCOPY TRANSORAL DIAGNOSTIC 06/12/2014 EGD outpt [facility] HERNIA REPAIR HX 12/01/2011 TOTAL ABDOMINAL [...] by mouth daily at bedtime. Noble Gilbert, [facility], [facility]. FLUoxetine (PROZAC) 20 mg [...] Brother Seizures Brother Coronary Artery Disease Brother [place] Social History Tobacco Use Smoking status: Every [...] complication, without long-term current use of insulin ([facility]) - ICD9: 250.00, ICD10: E11.9 - LANCETS refilled - BLOOD GLUCOSE TEST STRIPS refilled Prescription instructions reviewed with patient as applicable. Potential red flag symptoms discussed with the patient. Reviewed appropriate action plan to take if red flag symptoms occur. Patient agreeable to treatment plan. Marianna Easley APRN.CNP documented in this encounter [facility] 11-13-2021 History of Present illness Narrative Patient [...] back pain 05/27/2014 Work injury 2006 Depression [facility] Diabetes mellitus (HCC) Disc slipped disc in [...] by mouth daily at bedtime. Noble Gilbert, [facility], [facility]. FLUoxetine (PROZAC) 20 mg capsule Take [...] in the emergency room. Report sent to [facility] by ER passport. Terell Joseph MD documented in this encounter [facility] 11-01-2021 Miscellaneous Notes Patient has been identified [...] you. Sanam Aragon LPN Pharmacy verified in [facility] Patient has been identified by name and [...] M Sim Pss documented in this encounter [facility] 10-14-2021 Miscellaneous Notes Patient returned call and [...] for fatty liver. documented in this encounter [facility] 10-06-2021 History of Present illness Narrative Radiology [...] 2021 2:06 PM documented in this encounter [facility] 09-30-2021 Instructions Leonid Rice MD - 09/30/2021 2:20 PM EDT DO ALL LABS TODAY. PATIENT FASTING. (CBC, CMP, LIPIDS, A1C, URINE ALBUMIN) SCHEDULE ULTRASOUND RIGHT UPPER QUADRANT ORDERED IN March. documented in this encounter [facility] 09-30-2021 History of Present illness Narrative This note was created using invi. Subjective Jennifer Mcmullen is a 60 year [...] Complication, Without Long-Term Current Use of Insulin ([facility]) Current Outpatient Medications Medication Sig budesonide-formoterol [...] Leonid Rice MD documented in this encounter [facility] 08-31-2021 Miscellaneous Notes Order for PAP supplies faxed to [employer]. Dionna Cervantes Adm Asst documented in this encounter [facility] 08-10-2021 Miscellaneous Notes I last Jennifer Mar 2019. Please let pt know refill requests should go to her jig and fixture repairer that she now sees in [place]. She saw Dr Colette Quarles. documented in this encounter [facility] 08-06-2020 History of Past i llness Narrative [...] of this encounter (statuses as of 08/10/2021) [facility] History of Past illness Narrative* Problem Noted [...] of this encounter (statuses as of 08/31/2021) [facility] History of Past illness Narrative* Problem Noted [...] of this encounter (statuses as of 09/30/2021) [facility] History of Past illness Narrative* Problem Noted [...] of this encounter (statuses as of 10/07/2021) [facility] History of Past illness Narrative* Problem Noted [...] of this encounter (statuses as of 10/14/2021) [facility] History of Past illness Narrative* Problem Noted [...] of this encounter (statuses as of 11/01/2021) [facility] of Past illness Narrative* Problem Noted [...] of this encounter (statuses as of 11/13/2021) [facility] History of Past illness Narrative* Problem Noted [...] of this encounter (statuses as of 11/29/2021) [place] [id number] History of Past illness Narrative* Problem Noted [...] of this encounter (statuses as of 12/31/2021) [facility] of Past illness Narrative* Problem Noted [...] of this encounter (statuses as of 02/12/2022) [facility] of Past illness Narrative* Problem Noted [...] of this encounter (statuses as of 02/15/2022) [facility] Narrative* Problem Noted [...] of this encounter (statuses as of 02/19/2022) [facility] Narrative* Problem Noted [...] of this encounter (statuses as of 04/01/2022) [facility] Narrative* Problem Noted [...] of this encounter (statuses as of 04/01/2022) [facility] Narrative* Problem Noted [...] of this encounter (statuses as of 04/07/2022) [facility] Narrative* Problem Noted [...] of this encounter (statuses as of 05/25/2022) [facility] Narrative* Problem Noted [...] of this encounter (statuses as of 05/31/2022) [facility] Narrative* Problem Noted [...] of this encounter (statuses as of 06/08/2022) [facility] Narrative* Problem Noted [...] of this encounter (statuses as of 06/13/2022) [facility] Narrative* Problem Noted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 60-74 MINUTES Leonid Rice MD [address] [place] [address] Referral ID Status Reason Start Date Expiration Date Visits Requested Visits Authorized [id number] Authorized PCP Requested Referral 02/11/2022 02/11/2023 1 1 Specialty Diagnoses / Procedures Referred By Contac t Referred To Contact CT IMAGING Diagnoses Smoker Encounter for screening for lung cancer Procedures CT LUNG SCREEN WO IVCON COMPUTED TOMOGRAPHY THORAX LW DOSE LNG CA SCR Arcelia Shah, FILTER WASHER AND PRESSER.BARREL INSPECTOR [address] [place] [address] Ct Imaging Referral ID Status Reason Start Date Expiration Date Visits Requested Visits Authorized [id number] Pending Review Auto-Generat ed Referral 02/15/2022 03/17/2023 1 1 Specialty Diagnoses / Procedures Referred By Contac t Referred To Contact CT IMAGING Diagnoses Smoker Encounter for screening for lung cancer Procedures CT LUNG SCREEN WO IVCON COMPUTED TOMOGRAPHY THORAX LW DOSE LNG CA SCR Arcelia Shah, FILTER WASHER AND PRESSER.BARREL INSPECTOR [address] [place] [address] Ct Imaging Referral ID Status Reason Start Date Expiration Date V isits Requested Visits Authorized [id number] Closed Auto-Generate d Referral 02/28/2022 04/29/2022 1 1 Specialty Diagnoses / Procedures Referred By Contac t Referred To Contact Diagnoses Moderate persistent asthma, unspecified whether complicated Dana Hensley MD [address] [place] [address] Referral ID Status Reason Start Date Expiration Date Visits Re quested Visits Authorized [id number] Closed 1 1 Specialty Diagnoses / Procedures Referred By Contac t Referred To Contact Orthopedics Diagnoses Left hand pain Procedures CONSULT TO ORTHOPAEDICS OFFICE/OUTPATIENT [facility] 60 MINUTES Marianna Yap, FILTER WASHER AND PRESSER.BARREL INSPECTOR [address] [place] [address] Referral ID Status Reason Start Date Expiration Date Visits Requested Visits Authorized [id number] Authorized PCP Requested Referral 08/23/2023 08/22/2024 1 1 Specialty Diagnoses / Procedures Referred By Contac t Referred To Contact [facility] Diagnoses Screening for colon cancer Procedures COLONOSCOPY SCREENING COLONOSCOPY FLX DX W/COLLJ SPEC WHEN PFRMD Marianna Yap FILTER WASHER AND PRESSER.BARREL INSPECTOR [address] [place] [address] [facility] [address] [place] [address] Referral ID Status Reason Start Date Expiration Date Visits Requested Visits Authorized [id number] Pending Review Auto-Generat ed Referral 08/23/2023 08/22/2024 1 1 Specialty Diagnoses / Procedures Referred By Contac t Referred To Contact Ophthalmology Diagnoses Type 2 diabetes mellitus without complication, without long-term current use of insulin (HCC) Procedures CONSULT TO OPHTHALMOLOGY OFFICE/OUTPATIENT [facility] 60 MINUTES Marianna Yap, FILTER WASHER AND PRESSER.BARREL INSPECTOR [address] [place] [address] Referral ID Status Reason Start Date Expiration Date Visits Requested Visits Authorized [id number] Authorized PCP Requested Referral 08/23/2023 08/22/2024 1 1 Specialty Diagnoses / Procedures Referred By Contac t Referred To Contact CT IMAGING Diagnoses Smoker Encounter for screening for malignant neoplasm of lung Procedures CT LUNG SCREEN WO IVCON COMPUTED TOMOGRAPHY THORAX LW DOSE LNG CA SCR Arcelia Shah, FILTER WASHER AND PRESSER.BARREL INSPECTOR [address] [place] [address] [place] [address] Referral ID Status Reason Start Date Expiration Date Visits Requested Visits Authorized [id number] Pending Review Auto-Generat ed Referral 12/05/2023 01/03/2025 1 1 Specialty Diagnoses / Procedures Referred By Contac t Referred To Contact Orthopedics Diagnoses Chronic pain of left knee Procedures CONSULT TO ORTHOPAEDICS OFFICE/OUTPATIENT [facility] 60 MINUTES Eddie Rodríguez, FILTER WASHER AND PRESSER.ECONOMICS TEACHER [address] [place] [address] Referral ID Status Reason Start Date Expiration Date Visits Requested Visits Authorized [id number] Authorized PCP Requested Referral 12/05/2023 12/04/2024 1 1 Specialty Diagnoses / Procedures Referred By Contac t Referred To Contact [facility] Diagnoses Chronic pain of left knee Tear of medial meniscus of left knee, current, unspecified tear type, initial encounter Procedures CONSULT TO PHYSICAL THERAPY PHYSICAL THERAPY EVALUATION HIGH COMPLEX 45 MINS Smiley De La Paz DO [address] [place] [address] [facility] [address] [place] [address] Referral ID Status Reason Start Date Expiration Date Visits Requested Visits Authorized [id number] Authorized Auto-Generat ed Referral 03/13/2023 03/12/2024 1 1 Referral ID Status Reason Start Date Expiration Date V isits Requested Visits Authorized [id number] Closed Auto-Generate d Referral 12/13/2023 02/11/2024 1 1 Specialty Diagnoses / Procedures Referred By Contac t Referred To Contact CT IMAGING Diagnoses Encounter for screening for lung cancer Smoker Procedures CT LUNG SCREEN WO IVCON COMPUTED TOMOGRAPHY THORAX LW DOSE LNG CA SCR Melony- Terrence Flores, FILTER WASHER AND PRESSER.BARREL INSPECTOR [address] [place] [address] [place] [address] Referral ID Status Reason Start Date Expiration Date Visits Requested Visits Authorized [id number] Pending Review Auto-Generat ed Referral 01/25/2025 1 1 Specialty Diagnoses / Procedures Referred By Contac t Referred To Contact General Surgery Diagnoses Epigastric abdominal pain Nausea Procedures CONSULT TO GENERAL SURGERY OFFICE/OUTPATIENT [facility] 60 MINUTES Marianna Yap, FILTER WASHER AND PRESSER.BARREL INSPECTOR [address] [place] [address] Referral ID Status Reason Start Date Expiration Date V isits Requested Visits Authorized [id number] Closed PCP Requested Referral 01/08/2024 01/07/2025 1 1 Chief Complaint and Reason for Visit Chief Complaint abd pain Chief Complaint chest pain Additional Source Comments INFORMATION SOURCE (unrecogn ized section and content) DATE CREATED AUTHOR 08/30/2017 [facility] DATE CREATED AUTHOR AUTHOR'S ORGANIZ ATION 09/01/2017 [facility] DATE CREATED AUTHOR AUTHOR'S ORGANIZ ATION [facility] DATE CREATED AUTHOR AUTHOR'S ORGANIZ ATION 02/19/2018 [facility] DATE CREATED AUTHOR AUTHOR'S ORGANIZ ATION 06/27/2018 [facility] DATE CREATED AUTHOR AUTHOR'S ORGANIZ ATION 07/20/2020 [facility] DATE CREATED AUTHOR AUTHOR'S ORGANIZ ATION 02/03/2023 [facility] DATE CREATED AUTHOR AUTHOR'S ORGANIZ ATION 03/05/2023 [facility] ([place]) DATE CREATED AUTHOR AUTHOR'S ORGANIZ ATION 12/30/2023 [facility] DATE CREATED AUTHOR AUTHOR'S ORGANIZ ATION 01/26/2024 [facility] Source Comments (unrecognize d section and content) In the event this informatio n is protected by the Federal Confidentiality of Alcohol and Drug Abuse Patient Records regulations: The Federal rules restrict any use of the information to criminally investigate or prosecute any alcohol or drug abuse patient.[facility] HospitalIn the event this information is protected by the Federal Confidentiality of Alcohol and Drug Abuse Patient Records regulations: The Federal rules restrict any use of the information to criminally investigate or prosecute any alcohol or drug abuse patient.[facility] HospitalIn the event this information is protected by the Federal Confidentiality of Alcohol and Drug Abuse Patient Records regulations: The Federal rules restrict any use of the information to criminally investigate or prosecute any alcohol or drug abuse patient.[facility] HospitalIn the event this information is protected by the Federal Confidentiality of Alcohol and Drug Abuse Patient Records regulations: The Federal rules restrict any use of the information to criminally investigate or prosecute any alcohol or drug abuse patient.[facility] HospitalIn the event this information is protected by the Federal Confidentiality of Alcohol and Drug Abuse Patient Records regulations: The Federal rules restrict any use of the information to criminally investigate or prosecute any alcohol or drug abuse patient.[facility] HospitalIn the event this information is protected by the Federal Confidentiality of Alcohol and Drug Abuse Patient Records regulations: The Federal rules restrict any use of the information to criminally investigate or prosecute any alcohol or drug abuse patient.[facility] HospitalIn the event this information is protected by the Federal Confidentiality of Alcohol and Drug Abuse Patient Records regulations: The Federal rules restrict any use of the information to criminally investigate or prosecute any alcohol or drug abuse patient.[facility] HospitalIn the event this information is protected by the Federal Confidentiality of Alcohol and Drug Abuse Patient Records regulations: The Federal rules restrict any use of the information to criminally investigate or prosecute any alcohol or drug abuse patient.[facility] HospitalIn the event this information is protected by the Federal Confidentiality of Alcohol and Drug Abuse Patient Records regulations: The Federal rules restrict any use of the information to criminally investigate or prosecute any alcohol or drug abuse patient.[facility] HospitalIn the event this information is protected by the Federal Confidentiality of Alcohol and Drug Abuse Patient Records regulations: The Federal rules restrict any use of the information to criminally investigate or prosecute any alcohol or drug abuse patient.[facility] HospitalIn the event this information is protected by the Federal Confidentiality of Alcohol and Drug Abuse Patient Records regulations: The Federal rules restrict any use of the information to criminally investigate or prosecute any alcohol or drug abuse patient.[facility] HospitalIn the event this information is protected by the Federal Confidentiality of Alcohol and Drug Abuse Patient Records regulations: The Federal rules restrict any use of the information to criminally investigate or prosecute any alcohol or drug abuse patient.[facility] HospitalIn the event this information is protected by the Federal Confidentiality of Alcohol and Drug Abuse Patient Records regulations: The Federal rules restrict any use of the information to criminally investigate or prosecute any alcohol or drug abuse patient.[facility] HospitalIn the event this information is protected by the Federal Confidentiality of Alcohol and Drug Abuse Patient Records regulations: The Federal rules restrict any use of the information to criminally investigate or prosecute any alcohol or drug abuse patient.[facility] HospitalIn the event this information is protected by the Federal Confidentiality of Alcohol and Drug Abuse Patient Records regulations: The Federal rules restrict any use of the information to criminally investigate or prosecute any alcohol or drug abuse patient.[facility] HospitalIn the event this information is protected by the Federal Confidentiality of Alcohol and Drug Abuse Patient Records regulations: The Federal rules restrict any use of the information to criminally investigate or prosecute any alcohol or drug abuse patient.[facility] HospitalIn the event this information is protected by the Federal Confidentiality of Alcohol and Drug Abuse Patient Records regulations: The Federal rules restrict any use of the information to criminally investigate or prosecute any alcohol or drug abuse patient.[facility] HospitalIn the event this information is protected by the Federal Confidentiality of Alcohol and Drug Abuse Patient Records regulations: The Federal rules restrict any use of the information to criminally investigate or prosecute any alcohol or drug abuse patient.[facility] HospitalIn the event this information is protected by the Federal Confidentiality of Alcohol and Drug Abuse Patient Records regulations: The Federal rules restrict any use of the information to criminally investigate or prosecute any alcohol or drug abuse patient.[facility] HospitalIn the event this information is protected by the Federal Confidentiality of Alcohol and Drug Abuse Patient Records regulations: The Federal rules restrict any use of the information to criminally investigate or prosecute any alcohol or drug abuse patient.[facility] HospitalIn the event this information is protected by the Federal Confidentiality of Alcohol and Drug Abuse Patient Records regulations: The Federal rules restrict any use of the information to criminally investigate or prosecute any alcohol or drug abuse patient.[facility] HospitalIn the event this information is protected by the Federal Confidentiality of Alcohol and Drug Abuse Patient Records regulations: The Federal rules restrict any use of the information to criminally investigate or prosecute any alcohol or drug abuse patient.[facility] HospitalIn the event this information is protected by the Federal Confidentiality of Alcohol and Drug Abuse Patient Records regulations: The Federal rules restrict any use of the information to criminally investigate or prosecute any alcohol or drug abuse patient.[facility] HospitalIn the event this information is protected by the Federal Confidentiality of Alcohol and Drug Abuse Patient Records regulations: The Federal rules restrict any use of the information to criminally investigate or prosecute any alcohol or drug abuse patient.[facility] HospitalIn the event this information is protected by the Federal Confidentiality of Alcohol and Drug Abuse Patient Records regulations: The Federal rules restrict any use of the information to criminally investigate or prosecute any alcohol or drug abuse patient.[facility] HospitalIn the event this information is protected by the Federal Confidentiality of Alcohol and Drug Abuse Patient Records regulations: The Federal rules restrict any use of the information to criminally investigate or prosecute any alcohol or drug abuse patient.[facility] HospitalIn the event this information is protected by the Federal Confidentiality of Alcohol and Drug Abuse Patient Records regulations: The Federal rules restrict any use of the information to criminally investigate or prosecute any alcohol or drug abuse patient.[facility] HospitalIn the event this information is protected by the Federal Confidentiality of Alcohol and Drug Abuse Patient Records regulations: The Federal rules restrict any use of the information to criminally investigate or prosecute any alcohol or drug abuse patient.[facility] HospitalIn the event this information is protected by the Federal Confidentiality of Alcohol and Drug Abuse Patient Records regulations: The Federal rules restrict any use of the information to criminally investigate or prosecute any alcohol or drug abuse patient.[facility] HospitalIn the event this information is protected by the Federal Confidentiality of Alcohol and Drug Abuse Patient Records regulations: The Federal rules restrict any use of the information to criminally investigate or prosecute any alcohol or drug abuse patient.[facility] HospitalIn the event this information is protected by the Federal Confidentiality of Alcohol and Drug Abuse Patient Records regulations: The Federal rules restrict any use of the information to criminally investigate or prosecute any alcohol or drug abuse patient.[facility] HospitalIn the event this information is protected by the Federal Confidentiality of Alcohol and Drug Abuse Patient Records regulations: The Federal rules restrict any use of the information to criminally investigate or prosecute any alcohol or drug abuse patient.[facility] HospitalIn the event this information is protected by the Federal Confidentiality of Alcohol and Drug Abuse Patient Records regulations: The Federal rules restrict any use of the information to criminally investigate or prosecute any alcohol or drug abuse patient.[facility] HospitalIn the event this information is protected by the Federal Confidentiality of Alcohol and Drug Abuse Patient Records regulations: The Federal rules restrict any use of the information to criminally investigate or prosecute any alcohol or drug abuse patient.[facility] HospitalIn the event this information is protected by the Federal Confidentiality of Alcohol and Drug Abuse Patient Records regulations: The Federal rules restrict any use of the information to criminally investigate or prosecute any alcohol or drug abuse patient.[facility] HospitalIn the event this information is protected by the Federal Confidentiality of Alcohol and Drug Abuse Patient Records regulations: The Federal rules restrict any use of the information to criminally investigate or prosecute any alcohol or drug abuse patient.[facility] HospitalIn the event this information is protected by the Federal Confidentiality of Alcohol and Drug Abuse Patient Records regulations: The Federal rules restrict any use of the information to criminally investigate or prosecute any alcohol or drug abuse patient.[facility] HospitalIn the event this information is protected by the Federal Confidentiality of Alcohol and Drug Abuse Patient Records regulations: The Federal rules restrict any use of the information to criminally investigate or prosecute any alcohol or drug abuse patient.[facility] HospitalIn the event this information is protected by the Federal Confidentiality of Alcohol and Drug Abuse Patient Records regulations: The Federal rules restrict any use of the information to criminally investigate or prosecute any alcohol or drug abuse patient.[facility] HospitalIn the event this information is protected by the Federal Confidentiality of Alcohol and Drug Abuse Patient Records regulations: The Federal rules restrict any use of the information to criminally investigate or prosecute any alcohol or drug abuse patient.[facility] HospitalIn the event this information is protected by the Federal Confidentiality of Alcohol and Drug Abuse Patient Records regulations: The Federal rules restrict any use of the information to criminally investigate or prosecute any alcohol or drug abuse patient.[facility] HospitalIn the event this information is protected by the Federal Confidentiality of Alcohol and Drug Abuse Patient Records regulations: The Federal rules restrict any use of the information to criminally investigate or prosecute any alcohol or drug abuse patient.[facility] HospitalIn the event this information is protected by the Federal Confidentiality of Alcohol and Drug Abuse Patient Records regulations: The Federal rules restrict any use of the information to criminally investigate or prosecute any alcohol or drug abuse patient.[facility] HospitalIn the event this information is protected by the Federal Confidentiality of Alcohol and Drug Abuse Patient Records regulations: The Federal rules restrict any use of the information to criminally investigate or prosecute any alcohol or drug abuse patient.[facility] HospitalIn the event this information is protected by the Federal Confidentiality of Alcohol and Drug Abuse Patient Records regulations: The Federal rules restrict any use of the information to criminally investigate or prosecute any alcohol or drug abuse patient.[facility] HospitalIn the event this information is protected by the Federal Confidentiality of Alcohol and Drug Abuse Patient Records regulations: The Federal rules restrict any use of the information to criminally investigate or prosecute any alcohol or drug abuse patient.[facility] HospitalIn the event this information is protected by the Federal Confidentiality of Alcohol and Drug Abuse Patient Records regulations: The Federal rules restrict any use of the information to criminally investigate or prosecute any alcohol or drug abuse patient.[facility] HospitalIn the event this information is protected by the Federal Confidentiality of Alcohol and Drug Abuse Patient Records regulations: The Federal rules restrict any use of the information to criminally investigate or prosecute any alcohol or drug abuse patient.[facility] HospitalIn the event this information is protected by the Federal Confidentiality of Alcohol and Drug Abuse Patient Records regulations: The Federal rules restrict any use of the information to criminally investigate or prosecute any alcohol or drug abuse patient.[facility] HospitalIn the event this information is protected by the Federal Confidentiality of Alcohol and Drug Abuse Patient Records regulations: The Federal rules restrict any use of the information to criminally investigate or prosecute any alcohol or drug abuse patient.[facility] HospitalIn the event this information is protected by the Federal Confidentiality of Alcohol and Drug Abuse Patient Records regulations: The Federal rules restrict any use of the information to criminally investigate or prosecute any alcohol or drug abuse patient.[facility] HospitalIn the event this information is protected by the Federal Confidentiality of Alcohol and Drug Abuse Patient Records regulations: The Federal rules restrict any use of the information to criminally investigate or prosecute any alcohol or drug abuse patient.[facility] HospitalIn the event this information is protected by the Federal Confidentiality of Alcohol and Drug Abuse Patient Records regulations: The Federal rules restrict any use of the information to criminally investigate or prosecute any alcohol or drug abuse patient.[facility] HospitalIn the event this information is protected by the Federal Confidentiality of Alcohol and Drug Abuse Patient Records regulations: The Federal rules restrict any use of the information to criminally investigate or prosecute any alcohol or drug abuse patient.[facility] HospitalIn the event this information is protected by the Federal Confidentiality of Alcohol and Drug Abuse Patient Records regulations: The Federal rules restrict any use of the information to criminally investigate or prosecute any alcohol or drug abuse patient.[facility] HospitalIn the event this information is protected by the Federal Confidentiality of Alcohol and Drug Abuse Patient Records regulations: The Federal rules restrict any use of the information to criminally investigate or prosecute any alcohol or drug abuse patient.[facility] HospitalIn the event this information is protected by the Federal Confidentiality of Alcohol and Drug Abuse Patient Records regulations: The Federal rules restrict any use of the information to criminally investigate or prosecute any alcohol or drug abuse patient.[facility] Reason for Visit (unrecogniz ed section and content) Reason Comments Radiology US Specialty Diagnoses / Procedures Referred By Contac t Referred To Contact [facility] Diagnoses Abnormal mammogram of left breast Procedures US BREAST LTD LEFT US BREAST UNI REAL TIME WITH IMAGE LIMITED Leonid Rice MD [address] [place] [address] [facility] [address] [place] [address] Referral ID Status Reason Start Date Expiration Date V isits Requested Visits Authorized [id number] Closed Auto-Generate d Referral 09/11/2023 10/10/2024 1 1 Reason Comments Refill Request Reason Comments FYI-No Action Needed Reason Comments F/U 6 months Specialty Diagnoses / Procedures Referred By Contac t Referred To Contact US IMAGING Diagnoses Epigastric abdominal pain Procedures US ABD RT UPPER QUADRANT US ABDOMINAL REAL TIME W/IMAGE LIMITED Leonid Rice MD [address] [place] [address] Us Imaging Referral ID Status Reason Start Date Expiration Date V isits Requested Visits Authorized [id number] Closed Auto-Generate d Referral 04/02/2021 05/02/2022 1 [...] cyst Procedures CONSULT TO GENERAL SURGERY OFFICE/OUTPATIENT [facility] 60-74 MINUTES Leonid Rice MD [address] [place] [address] Referral ID Status Reason Start Date Expiration Date V isits Requested Visits Authorized [id number] Closed PCP Requested Referral 02/11/2022 02/11/2023 1 1 Specialty Diagnoses / Procedures Referred By Contac t Referred To Contact CT IMAGING Diagnoses Smoker Encounter for screening for lung cancer Procedures CT LUNG SCREEN WO IVCON COMPUTED TOMOGRAPHY THORAX LW DOSE LNG CA SCR C- RadhaAcrelia de la cruz, FILTER WASHER AND PRESSER.BARREL INSPECTOR [address] [place] [address] Ct Imaging Referral ID Status Reason Start Date Expiration Date V isits Requested Visits Authorized [id number] Closed Auto-Generate d Referral 02/28/2022 04/29/2022 1 [...] NEW HIGH MDM 60 MINUTES Eddie Rodríguez, FILTER WASHER AND PRESSER.ECONOMICS TEACHER [address] [place] [address] Referral ID Status Reason Start Date Expiration Date V isits Requested Visits Authorized [id number] Closed PCP Requested Referral 12/05/2023 12/04/2024 1 1 Specialty Diagnoses / Procedures Referred By Contac t Referred To Contact CT IMAGING Diagnoses Smoker Encounter for screening for malignant neoplasm of lung Procedures CT LUNG SCREEN WO IVCON COMPUTED TOMOGRAPHY THORAX LW DOSE LNG CA SCR Melony- Arcelia Garcia, FILTER WASHER AND PRESSER.BARREL INSPECTOR [address] [place] [address] [place] [address] Referral ID Status Reason Start Date Expiration Date V isits Requested Visits Authorized [id number] Closed Auto-Generate d Referral 12/13/2023 02/11/2024 1 1 Reason Comments Follow Up ct scan Reason Comments Follow Up Reason Comments New Patient Specialty Diagnoses / Procedures Referred By Contac t Referred To Contact General Surgery Diagnoses Epigastric abdominal pain Nausea Procedures CONSULT TO GENERAL SURGERY OFFICE/OUTPATIENT NEW HIGH MDM 60 MINUTES Marianna Yap, FILTER WASHER AND PRESSER.BARREL INSPECTOR [address] [place] [address] Referral ID Status Reason Start Date Expiration Date V isits Requested Visits Authorized [id number] Closed PCP Requested Referral 01/08/2024 01/07/2025 1 1 Reason Comments PT Eval Specialty Diagnoses / Procedures Referred By Contac t Referred To Contact Physical Therapy / PHYSICAL THERAPY Diagnoses Chronic pain of left knee [M25.562, G89.29] Tear of medial meniscus of left knee, current, unspecified tear type, initial encounter [S83.242A] Procedures NEW RS PT ORTH MSK Smiley De La Paz, DO [address] [place] [address] Ruby Kirkpatrick, PT [address] [place] [address] Referral ID Status Reason Start Date Expiration Date V isits Requested Visits Authorized [id number] Authorized 03/13/2023 03/12/2024 99 99 Care Teams (unrecognized sec tion and content) 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 Start Date End Date Leonid Rice MD [address] [place] [address] PCP - General Internal Medicine 10/09/18 [facility] [address] [place] [address] 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 Start Date End Date Leonid Rice MD [address] [place] [address] PCP - General Internal Medicine 10/09/18 [facility] [address] [place] [address] 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 Start Date End Date Leonid Rice MD [address] [place] [address] PCP - General Internal Medicine 10/09/18 [place] [facility]a, [facility] [address] [place] [address] 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 Start Date End Date Leonid Rice MD [address] [facility] [place] [address] PCP - General Internal Medicine 10/09/18 [place], [facility] [address] [facility] [place] [address] 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 Start Date End Date Leonid Rice MD [address] [facility] [place] [address] PCP - General Internal Medicine 10/09/18 [place], [facility] [address] [facility] [place] [address] 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 Start Date End Date Leonid Rice MD [address] [facility] [place] [address] PCP - General Internal Medicine 10/09/18 [place], [facility] [address] [facility] [place] [address] 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 Start Date End Date Leonid Rice MD [address] [facility] [place] [address] PCP - General Internal Medicine 10/09/18 [place], [facility] [address] [facility] [place] [address] 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 Start Date End Date Leonid Rice MD [address] [facility] [place] [address] PCP - General Internal Medicine 10/09/18 [place], Erica, [facility] [address] [place] [address] 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 Start Date End Date Leonid Rice MD [address] [facility] [place] [address] PCP - General Internal Medicine 10/09/18 Erica Vicente, [facility] [address] [facility] [place] [address] 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 Start Date End Date Leonid Rice MD [address] [facility] [place] [address] PCP - General Internal Medicine 10/09/18 [place], [facility] [address] [facility] [place] [address] 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 Start Date End Date Leonid Rice MD [address] [facility] [place] [address] PCP - General Internal Medicine 10/09/18 Erica Vicente, [facility] [address] [facility] [place] [address] 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 Start Date End Date Leonid Rice MD [address] [facility] [place] [address] PCP - General Internal Medicine 10/09/18 [place], [facility] [address] [facility] [place] [address] 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 Start Date End Date Leonid Rice MD [address] [facility] [place] [address] PCP - General Internal Medicine 10/09/18 [place], [facility] [address] [place] [id number] 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 Start Date End Date Leonid Rice MD [address] [facility] [place] [address] PCP - General Internal Medicine 10/09/18 [facility] [address] [place] [address] 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 Start Date End Date Leonid Rice MD [address] [place] [address] PCP - General Internal Medicine 10/09/18 [facility] [address] [place] [address] 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 Start Date End Date Leonid Rice MD [address] [place] [address] PCP - General Internal Medicine 10/09/18 [facility] [address] [place] [address] 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 Start Date End Date Leonid Rice MD [address] [place] [address] PCP - General Internal Medicine 10/09/18 [facility], [facility] [address] [place] [address] 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 Start Date End Date Leonid Rice MD [address] [place] [address] PCP - General Internal Medicine 10/09/18 [facility] [address] [place] [address] 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 Start Date End Date Leonid Rice MD [address] [place] [address] PCP - General Internal Medicine 10/09/18 [facility] [address] [place] [address] 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 Start Date End Date Leonid Rice MD [address] [place] [address] PCP - General Internal Medicine 10/09/18 [facility] [address] [place] [address] 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 Start Date End Date Leonid Rice MD [address] [place] [address] PCP - General Internal Medicine 10/09/18 [facility] [place] [facility] [address] [place] [address] 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 Start Date End Date Leonid Rice MD [address] [place] [address] PCP - General Internal Medicine 10/09/18 [facility], [facility] [address] [place] [address] 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 Start Date End Date Leonid Rice MD [address] [place] [address] PCP - General Internal Medicine 10/09/18 [facility] [address] [place] [address] Pharmacist Pharmacy 10/22/20 Team Status: Active Member Role Status Dates Dr. Micki Seth MD Family Provider Active Dr. Leonid Rice MD Primary Care Provider Active Team Status: Inactive Member Role Status Dates Dr. Leonid Rice MD Primary Care Provider Active Dr. Ronak Marte DO Emergency Provider Active 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 Start Date End Date Leonid Rice MD [address] [place] [address] PCP - General Internal Medicine 10/09/18 [facility], [facility] [address] [place] [address] 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 Start Date End Date Leonid Rice MD [address] [place] [address] PCP - General Internal Medicine 10/09/18 [facility] [place] [facility] [address] [place] [address] 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 Start Date End Date Leonid Rice MD [address] [place] [address] PCP - General Internal Medicine 10/09/18 [facility] [place] [facility] [address] [place] [address] 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 Start Date End Date Leonid Rice MD [address] [place] [address] PCP - General Internal Medicine 10/09/18 [facility] [address] [place] [address] 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 Start Date End Date Leonid Rice MD [address] [place] [address] PCP - General Internal Medicine 10/09/18 [facility] [address] [place] [address] 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 Start Date End Date Leonid Rice MD [address] [place] [address] PCP - General Internal Medicine 10/09/18 [facility] [address] [place] [address] 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 Start Date End Date Leonid Rice MD [address] [place] [address] PCP - General Internal Medicine 10/09/18 [facility] [address] [place] [address] 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 Start Date End Date Leonid Rice MD [address] [place] [address] PCP - General Internal Medicine 10/09/18 [facility] [address] [place] [address] 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 Start Date End Date Leonid Rice MD [address] [place] [address] PCP - General Internal Medicine 10/09/18 [facility] [address] [place] [address] 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 Start Date End Date Leonid Rice MD [address] [place] [address] PCP - General Internal Medicine 10/09/18 [facility] [address] [place] [address] 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 Start Date End Date Leonid Rice MD [address] [place] [address] PCP - General Internal Medicine 10/09/18 [facility] [address] [place] [address] 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 Start Date End Date Leonid Rice MD [address] [place] [address] PCP - General Internal Medicine 10/09/18 [facility] [place] [facility] [address] [place] [address] 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 Start Date End Date Leonid Rice MD [address] [place] [address] PCP - General Internal Medicine 10/09/18 [place] [facility] [address] [place] [address] 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 Start Date End Date Leonid Rice MD [address] [place] [address] PCP - General Internal Medicine 10/09/18 [facility] [place] [facility] [address] [place] [address] 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 Start Date End Date Leonid Rice MD [address] [place] [address] PCP - General Internal Medicine 10/09/18 [facility] [place] [facility] [address] [place] [address] 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 Start Date End Date Leonid Rice MD [address] [place] [address] PCP - General Internal Medicine 10/09/18 [facility] [address] [place] [address] 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 Start Date End Date Leonid Rice MD [address] [place] [address] PCP - General Internal Medicine 10/09/18 [facility] [place] [facility] [address] [facility] [place] [address] 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 Start Date End Date Leonid Rice MD [address] [place] [address] PCP - General Internal Medicine 10/09/18 [facility] [place] [facility] [address] [place] [address] 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 Start Date End Date Leonid Rice MD [address] [place] [address] PCP - General Internal Medicine 10/09/18 [facility] [place] [facility] [address] [place] [address] 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 Start Date End Date Leonid Rice MD [address] [place] [address] PCP - General Internal Medicine 10/09/18 [place] [facility] [address] [place] [address] 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 Start Date End Date Leonid Rice MD [address] [place] [address] PCP - General Internal Medicine 10/09/18 [facility] [address] [place] [address] 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 Start Date End Date Leonid Rice MD [address] [place] [address] PCP - General Internal Medicine 10/09/18 [facility] [address] [place] [address] 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 Start Date End Date Leonid Rice MD [address] [place] [address] PCP - General Internal Medicine 10/09/18 [facility] [address] [place] [address] 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 Start Date End Date Leonid Rice MD [address] [place] [address] PCP - General Internal Medicine 10/09/18 [facility] [address] [place] [address] Pharmacist Pharmacy 10/22/20 Goals (unrecognized section and [...] BE BASED ON THE PRIMARY CLINICAL RECORDS. [facility] [employer] [facility]. provides no warranty or guarantee of the accuracy or completeness of information in this document.
--- OUTSIDE RECORDS SUMMARY | 2024-08-25 21:30 | XMS RPT_ITS | CCD ---
Author Organization [facility] Care Team Providers Care Vacuum System Tester Name Role Phone GARCIA, KIARRA Unavailable Unavailable NO FAMILY DOCTOR, NO FAMILY DOCTOR Unavailable Unavailable GARCIA, KIARRA Unavailable Unavailable NO FAMILY DOCTOR, NO FAMILY DOCTOR Unavailable Unavailable DOTTIE, YANELIS A Unavailable Unavailable [id number]-AND-DENTISTRY, DOCTOR Unavailab le Unavailable DOTTIE, YANELIS A Unavailable Unavailable [id number]-LI-JTHTOY-AND-DENTISTRY, DOCTOR Unavailab le Unavailable DOTTIE, YANELIS A Unavailable Unavailable [id number]-AU-[id number]-AND-DENTISTRY, DOCTOR Unavailab le Unavailable SPRINGER, ESTELA Primary [...] Rice MD, Leonid Umaña Primary Care Provider [facility], Erica Unavailable Dwayne MCCOY, Leonid Umaña Primary Care Provider [facility], Erica Unavailable [facility], Erica Unavailable Dwayne MCCOY, Leonid Umaña Primary Care Provider [facility], Erica Unavailable Dwayne, Leonid Primary Care Unavailable [...] SMILEY DE LA PAZ Attending Unavailab TERRENCE Priset Attending Unavailable ARCELIA GARCIA Referring Unavailabl e RICE, TONI Primary Care Unavailable KATTY, EDDIE Referring Unavailable OLDER, MARIANNA Attending Unavailable RICE, TONI Primary Care Unavailable RUBY KIRKPATRICK Attending Unavailable SMILEY DE LA PAZ Referring Unavailab le RICE, TONI Primary Care Unavailable Zachery Toussaint Attending Unavailable OLDER, MARIANNA Referring Unavailable RICE, TONI Primary Care Unavailable RIEC, TONI Primary Care Unavailable RICE, TONI Attending [...] Latex; Translations: [LATEX] Substance Allergy 4 Itching [facility] Repository NSAIDs (4 sources) Diclofenac Drug Allergy 6 Other: See Comments [facility] (20 sources) Diclofenac; Translations: [DICLOFENAC SODIUM] Drug Allergy 6 Other: See Comments [facility] Work Phone: (20 sources) Latex; Translations: [LATEX] Drug Allergy 4 Itching [facility] (1 source) Latex Drug allergy (disorder) 3 [facility] Repository (1 source) Contrast media; Translations: [iodinated radiocontrast agents] Drug allergy [facility] Medications Current Medications Medication Drug Class(es) Dates Sig (Normalized) Sig (Original) [id number] 200 actuat albuterol 0.09 mg/actuat metered dose [...] once daily. Noble Gilbert CNP at the [facility]. 03/02/2023 Active Start: 03-24-2015 End: 03-02-2023 [...] once daily. Noble Gilbert CNP at the [facility]. 30 actuat fluticasone furoate 0.2 mg/actuat [...] on above: Take 2 tablets by [facility] daily at bedtime. Noble Gilbert [...] Chemical Allergen Start: 01-18-2024 End: 01-18-2024 1 [place], TOPICAL, DIRECTED, Starting on Div[place] 01/18/24 at [...] Comment on above: Take 1 tablet by [facility] twice daily. calcium chloride 0.0014 meq/ml [...] on above: Take 1 capsule by mo [facility] daily before breakfast. polyethylene glycol 3350 23709 mg powder for oral solution (20 sources) Osmotic Laxative Start: 05-31-2022 End: 01-08-2024 polyethylene glycol 3350 (MIRALAX) 17 gram/dose powder Indications: Constipation, unspecified constipation type Take 17 g by mouth once daily as needed for constipation. 850 g 2 05/31/2022 01/08/2024 Discontinued (Discontinued by Patient) Start: 11-29-2021 End: 05-31-2022 polyethylene glycol 3350 (IN RALAX) 17 gram/dose powder Take once daily, mix in 4 to 8 ounces of water 235 g 2 11/29/2021 05/31/2022 Discontinued Comment on above: Take once daily, mix in 4 to 8 ounces of water Take 17 g by mouth o nce daily as needed for constipation. polyethylene glycol 3350 969205 mg / potassium chloride 2970 mg / sodium bicarbonate 6740 mg / sodium chloride 5860 mg / sodium sulfate 60667 mg powder for oral solution (1 source) [...] Class III, BMI 40-49.9 (morbid obesity) ([facility]LY [facility])] Onset: 04-03-2019 Chronic Other screening [...] sources) NAUSEA, EPIGASTRIC PAIN R11.0, R10.13 (CPT 20025); Translations: [NAUSEA, EPIGASTRIC PAIN R11.0, R10.13 (CPT 77209)] Onset: 04-10-2018 Unclassified (2 sources) LOSS OF APPETITIE, COLON CA SCREENING R63.0, Z12.11 (CPT G0121, 54057); Translations: [LOSS OF APPETITIE, COLON CA SCREENING R63.0, Z12.11 (CPT G0121, 11917)] Onset: 01-09-2018 Past or Other Problems Problem [...] Test Name Value Interpretation Reference Range Facility [id number] 01-18-2024 [id number] HNO ID: [id number] Author: AMIRA WIGGINS RN Service: ? Author Type: Registered Nurse Type: [id number] Filed: 01/18/2024 09:27 Note Text: The patient received a copy of EGD discharge instructions that contain information for how to contact the physician who performed the procedure and when to seek medical care. Normal [facility] EGD Study observation [place] 01-18-2024 Vas[facility] Gastrointestinal Endoscopy Patient Name: Jennifer Mcmullen Procedure [...] be scheduled. Procedure Code(s): --- Professional --- 26113, Esophagogastroduodenos copy, flexible, transoral; with biopsy, single or multiple Diagnosis Code(s): --- Professional --- R10.13, Epigastric pain R11.0, Nausea CPT copyright 2020 [employer]. All rights reserved. The codes documented in this report are preliminary and upon industrial editor review may be revised to meet current compliance requirements. Attending Participation: I personally performed the entire procedure. Scope In: 9:07:47 AM Scope Out: 9:11:18 AM MD Zachery Lund MD 01/18/2024 9:15:51 AM This report has been sign (more content not included)... PROVATION [facility] Radiology Study observation (narrative) [facility] HISTORY PHYSICALon HISTORY PHYSICAL HNO ID: [id number] Author: ZACHERY TOUSSAINT MD Service: General Surgery [...] back pain 05/27/2014 Work injury 2006 Depression [facility] Diabetes mellitus (HCC) Disc slipped disc in [...] neg. internal hemorrhoids. lax anal tone. [facility] COLONOSCOPY FLX DX W/COLLJ SPEC WHEN PFRMD 06/12/2014 Colonoscopy out pt [facility] EGD 04/10/2018 Hpylori negative - Gi[facility]anna [facility] ESOPHAGOGASTRODUODENOS COPY TRANSORAL DIAGNOSTIC 06/12/2014 EGD outpt [facility] HERNIA REPAIR HX 12/01/2011 TOTAL ABDOMINAL [...] Brother Seizures Brother Coronary Artery Disease Brother IN REVIEW OF SYMPTOMS: The review of systems [...] are an (more content not included)... Normal [facility] NURSING PROGon 01-18-2024 NURSING PROG HNO ID: [id number] Author: AMIRA WIGGINS RN Service: ? Author Type: Registered Nurse Type: Nursing Progress Note Filed: 01/18/2024 09:25 Note Text: pt arrived to phase 2 resting on left side. Daughter at bedside. SR up x 2, call light in reach. Amira Wiggins RN Normal [facility] SURGICAL PATHOLOGYon 024 ADDENDUM 1: Normal [facility] Comment on above: Order Comment: Speci men Type: TISSUE SPECIMENOrdering Facility: [facility] Address: [address] [place] [address] Result Comment: Give n the background of chronic gastritis a Helicobacter pylori immunostain was performed on block A1 and is negative for Helicobacter pylori organisms. Laboratory Developed Test (LDT) Disclaimer: Performance characteristics of immunohistochemical, immunofluorescent and chromogenic in-situ hybridization tests have been determined by the performing laboratory within [facility]???s Marcello Clark Pathology and Laboratory Medicine Department ([facility], [facility], [facility], [facility], [facility], [facility], or [facility]) in a manner consistent with CLIA [...] at 5:41 PM Performed By: #### S ####[facility] LABCLIA [id number] [address] LABCLIA [id number] [address] CASE REPORT Normal [facility] Comment on above: Order Comment: Speci men Type: TISSUE SPECIMENOrdering Facility: [facility] Address: [address] [place] [address] Result Comment: Surg [facility] Pathology Report Case: [id number] Authorizing Provider: Zachery Toussaint MD Collected: 01/18/2024 09:09 AM Ordering Location: Ambulatory Surgery Received: 01/18/2024 01:10 PM Pathologist: Sunshine Burdick MD Specimens: A) - Stomach, Antrum, Biopsy, Antral bx for H/H B) - Esophagogastric Junction, Biopsy C) - Esophagus, Mid, Biopsy D) - Small Bowel, Duodenum, Biopsy Performed By: #### S ####[facility] LABCLIA [id number] [address] LABCLIA [id number] [address] FINAL DIAGNOSIS Normal [facility] Comment on above: Order Comment: Speci men Type: TISSUE SPECIMENOrdering Facility: [facility] Address: [address] [place] [address] Result Comment: A. S tomach, antrum, biopsy: [...] no diagnostic abnormalities. Performed By: #### S ####[facility] LABCLIA [id number] [address] LABCLIA [id number] [address] FINAL PERFORMING LAB Normal [facility] Comment on above: Order Comment: Speci men Type: TISSUE SPECIMENOrdering Facility: [facility] Address: [address] [place] [address] Result Comment: Diag nostic interpretation performed at [facility], [address] [place] [address] CLIA# [id number] Frame Polisher: Yimi Rossi M.D. Performed By: #### S ####[facility] LABCLIA [id number] [address] LABCLIA [id number] [address] GROSS DESCRIPTION Normal [facility] Comment on above: Order Comment: Speci men Type: TISSUE SPECIMENOrdering Facility: [facility] Address: [address] [place] [address] Result Comment: A. S tomach, Antrum, Biopsy [...] in one cassette. Gross examination performed at [facility], [address] [place] [address] JT 01/18/2024 11:15 PM Performed By: #### S ####[facility] LABCLIA [id number] [address] LABCLIA [id number] [address] Upper GI endoscopyon 11-07-2 024 Upper GI endoscopy [place] [facility] Gastrointestinal Endoscopy Patient Name: Jennifer Mcmullen Procedure [...] be scheduled. Procedure Code(s): --- Professional --- 43444, Esophagogastroduodenos copy, flexible, transoral; with biopsy, single or multiple Diagnosis Code(s): --- Professional --- R10.13, Epigastric pain R11.0, Nausea CPT copyright 2020 [employer]. All rights reserved. The codes documented in this report are preliminary and upon industrial editor review may be revised to meet current compliance requirements. Attending Participation: I personally performed the entire procedure. Scope In: 9:07:47 AM Scope Out: 9:11:18 AM MD Zachery Lund MD 01/18/2024 9:15:51 AM This report has been signed electronically by Zachery Toussaint MD Number of Addenda: 0 Note Initiated On: 01/18/2024 8:55 AM Estimated Blood Loss: Estimated blood loss was minimal. Normal [facility] [id number] 01-16-2024 [id number] HNO ID: [id number] Author: RUBY KIRKPATRICK PT Service: ? Author Type: Physical Therapist Type: [id number] Filed: 01/16/2024 18:00 Note Text: [facility] Physical Therapy Plan of Care Certification Patient Name: Jennifer Mcmullen : 1960 [facility] #: [id number] Date: 01/16/2024 To: Smiley De La Paz,* From Therapist: Ruby Kirkpatrick PT RE: Patient Certification/ Recertification Your review, approval and electronic signature are required in order to comply with Payor: [facility] MEDICAID / Plan: [facility] MEDICAID / Product Type: Medicaid / [...] Goals for Episode of Care: established 01/16/24 [place] in home exercise program. Patient will decrease [...] Planned: 4 Planned Treatment Interventions: Therapeutic exercise (29349), Neuromuscular re-education (61484), Manual therapy (17627), Therapeutic activities (62234), Self-fpc management (78292), Gait Training (08671), Patient/Family/Caregiv er Education, Body Mechanics Training, General [...] reviewed the treatment plan for Jennifer Mcmullen, [facility]# [id number] for the period of 01/16/24 -- 02/13/24, established on 01/16/2024. Signature certifies the need for therapy services. Normal [facility] CNTHERAPYon 01-16-2024 CNTHERAPY OT/PT/Speech Visit (PTWS) JENNIFER RAMIREZ ([id number]) 1960 F Date Time Provider Department 01/16/24 1:15 PM RUBY KIRKPATRICK PTWS Date Time Provider Department Center 01/16/2024 1:15 PM [id number], BRENT PTWS [facility] Reason for Visit: [...] J45.41. Nebulizer and supplies. Face mask preferred. Extension Course Coordinator: Addendum Therapy (PT/OT/Speech/Resp) ID: [id number] 01/16/2024 5:50 PM Author: RUBY KIRKPATRICK Signed by RUBY KIRKPATRICK PT on 01/16/2024 at 5:51 PM * * * This document replaces document [id number] * * * Document text: Program_ID:[id number] Access Code: [email or web address] URL: [email or web address]/ Date: 01-16-2024 Prepared By: Ruby Kirkpatrick Program [...] 2 sets - 10 reps -- Normal [facility] THERAPY NTon 01-16-2024 THERAPY NT HNO ID: [id number] Author: RUBY KIRKPATRICK PT Service: ? Author Type: Physical Therapist Type: Therapy (PT/OT/Speech/Resp) Filed: 01/16/2024 17:51 Note Text: Program_ID:[id number] Access Code: [email or web address] URL: [email or web address] Date: 01-16-2024 Prepared By: Ruby Kirkpatrick Program [...] - 2 sets - 10 reps Normal [facility] CNOVon 01-08-2024 CNOV Office Visit (GENSWS ) JENNIFER RAMIREZ ([id number]) 1960 F Date Time Provider Department 01/08/24 [...] back pain 05/27/2014 Work injury 2006 Depression [facility] Diabetes mellitus (HCC) Disc slipped disc in [...] neg. internal hemorrhoids. lax anal tone. [facility] COLONOSCOPY FLX DX W/COLLJ SPEC WHEN PFRMD 06/12/2014 Colonoscopy out pt [facility] EGD 04/10/2018 Hpylori negative - Giovanna in [facility] ESOPHAGOGASTRODUODENOS COPY TRANSORAL DIAGNOSTIC 06/12/2014 EGD outpt [facility] HERNIA REPAIR HX 12/01/2011 TOTAL ABDOMINAL [...] Brother Seizures Brother Coronary Artery Disease Brother IN REVIEW OF SYMPTOMS: The review of systems data was entered by the nurse and reviewed by me There are no exam notes on file for this visit. PHYSICAL EXAMINATION: General: The patient is 63 year old female, well nourished, well hydrated in no acute distress. The patient is oriented to time, place, and person. VITALS: Blood pressure 116 (more content not included)... Normal [facility] CNOV Office Visit (INTMWS ) JENNIFER RAMIREZ ([id number]) 1960 F Date Time Provider Department 01/08/24 11:00 AM MARIANNA YAP INTMWS During your visit today, we recorded the following information about you: Pulse Respiration Blood pressure Weight 76/minute 14/minute 124/82 96.6 kg Marianna Yap, HOME SERVICE DEMONSTRATOR.TILE LAYER DRAINAGE 01/08/2024 11:34 AM Signed CC: Patient presents with: Follow Up: [facility] Jennifer Mcmullen is a 63 year [...] back pain 05/27/2014 Work injury 2006 Depression [facility] Diabetes mellitus (HCC) Disc slipped disc in back Fracture of right ankle Head injury Helicobacter pylori infection 09/12/2016 Hernia, hiatal Hyperglycemia 2010 Insomnia JOSSELIN (obstructive sleep apnea) 02/25/2019 Post-traumatic headache 01/16/2014 Postmenopausal Prediabetes 04/08/2019 PTSD (post-traumatic stress disorder) Tobacco use PAST SURGICAL HISTORY Procedure Laterality Date APPENDECTOMY 2012 [place] SECTION HX 1980 x 2 CHOLECYSTECTOMY 1989 COLONOSCOPY 01/10/2018 Random bx neg. internal hemorrhoids. lax anal tone. Giovanna in [facility] COLONOSCOPY FLX DX W/COLLJ SPEC WHEN PFRMD 06/12/2014 Colonoscopy out pt [facility] EGD 04/10/2018 Hpylori negative - Joseliney in [facility] ESOPHAGOGASTRODUODENOS COPY TRANSORAL DIAGNOSTIC 06/12/2014 EGD outpt [facility] HERNIA REPAIR HX 12/01/2011 TOTAL ABDOMINAL [...] Brother Seizures Brother Coronary Artery Disease Brother IN Social History Tobacco Use Smoking status: Every [...] guarding or (more content not included)... [facility] HNO ID: [id number] Author: MARYBETH TY CT Service: Radiology Author [...] PATIENT PRESENTS WITH AN IMPLANTABLE OR ATTACHED RICE CLEANING MACHINE TENDER: No RADIOLOGY DEPARTMENT: CT; Exam(s) Completed: Lung Screening PERIPHERAL IV DATA: Not applicable SIGNED BY: CAMILLE Harley December 27, 2023 2:36 PM [facility] CNOVon 12-27-2023 CNOV Office Visit ([facility] ) JENNIFER RAMIREZ ([id number]) 1960 F Date Time Provider Department 12/27/23 2:30 PM TERRENCE FLORES [facility] During your visit today, we recorded the following information about you: Pulse Blood pressure Weight 90/minute 116/76 97.6 kg Terrence Flores APRN.TILE LAYER DRAINAGE 12/29/2023 10:23 AM Signed LUNG SCREENING ANNUAL [...] which included preparing to see the patient, [id number] patient care, completing clinical documentation, performing a medically appropriate examination, counseling and educating the patient/family/caregiv er, ordering medications, tests, or procedures, communicating with other HCPs (not separately reported), independently interpreting results (not separately reported), communicating results to the patient/family/caregiv er, and care coordination (not separately reported). Terrence Flores APRN.[facility] December 27, 2023 12:08 PM History [...] Breo and spiriva daily. Modified Medical Research [place] Dyspnea Scale (MMRC) (more content not included)... Normal [facility] Office Visit ([facility] ) JENNIFER RAMIREZ ([id number]) 1960 F Date Time Provider Department 12/27/23 [...] once daily. Noble Gilbert CNP at the [facility]. albuterol (PROVENTIL) 2.5 mg /3 mL (0.083 %) nebulizer solution Use 3 mL via nebulizer every 4 hours as needed for wheezing/shortness of breath. polyethylene glycol 3350 (MIRALAX) 17 gram/dose powder Take 17 g by mouth once daily as needed for constipation. traZODone (DESYREL) 100 mg tablet Take 2 tablets by mouth daily at bedtime. Noble Gilbert, TILE LAYER DRAINAGE, [facility]. tiotropium bromide (SPIRIVA RESPIMAT) 2.5 [...] present [place] (more content not included)... Normal [facility] CT Chest for screening WO co ntraston 12-27-2023 IMPRESSION: LungRADS category: 1 LungRADS modifier: None LungRADS 0 reason: n/a Recommendations: Continue annual screening with LDCT in 12 months. Other actionable findings: - ========= Reference: [employer]. Lung CT Screening Reporting and Data System (Lung-RADS). Available at: http://www.acr.org/Andrew lity-Safety/Resources/ LungRADS Equities Analyst: AMADO Transcribe Date/Time: Dec 27 2023 4:14P Dictated by : ILEANA MARQUEZ MD This examination was interpreted and the report reviewed and electronically signed by: ILEANA MARQUEZ MD on Dec 27 2023 4:28PM [facility] RADIOLOG[facility] * * *Final Report* * * DATE OF EXAM: Dec 27 2023 2:44PM [place] [facility] - CT LUNG SCREEN WO IVCON [...] without contrast. MQ: CTLCS_6 Patient characteristics: * Cwdz-ov-Vtqkg: 1960; Age at exam: 63 years * Gender: Female * Lung Disease: Asymptomatic (no signs or symptoms of lung disease) * Number of Pack Years: 21.9 * Current smoker (=0) or Number of Years since Quit: 0 * Ordering provider and NPI: ARCELIA GARCIA [id number] * Interpreting radiologist and NPI: John [id number] Exam acquisition parameters: * Exam Date: 12/27/2023 2:44 PM * Site: [facility] * * CT System [employer] Salesperson: [employer] * CT System Model: [employer] (LGTmedical) * Tube Current-Time (mA-sec): 60 * Peak [...] None Localizer images: No additional findings. - [facility] Provider, [facility] - 12/27/2023 * * *Final Report* * * DATE OF EXAM: Dec 27 2023 2:44PM [place] [facility] - CT LUNG SCREEN WO IVCON [...] without contrast. MQ: CTLCS_6 Patient characteristics: * Uwbx-xo-Xfvgm: 1960; Age at exam: 63 years * Gender: Female * Lung Disease: Asymptomatic (no signs or symptoms of lung disease) * Number of Pack Years: 21.9 * Current smoker (=0) or Number of Years since Quit: 0 * Ordering provider and NPI: ARCELIA GARCIA [id number] * Interpreting radiologist and NPI: John [id number] Exam acquisition parameters: * Exam Date: 12/27/2023 2:44 PM * Site: [facility] * * CT System [employer] Salesperson: [employer] * CT System Model: [employer] (LGTmedical) * Tube Current-Time (mA-sec): 60 * Peak [...] months. Other actionable findings: - ========= Reference: [employer]. Lung CT Screening Reporting and Data System (Lung-RADS). Available at: http://www.acr.org/Andrew lity-Safety/Resources/ LungRADS Equities Analyst: AMADO Transcribe Date/Time: Dec 27 2023 4:14P Dictated by : ILEANA MARQUEZ MD This examination was interpreted and the report reviewed and electronically signed by: ILEANA MARQUEZ MD on Dec 27 2023 4:28PM EST [facility] Radiology Study observation (narrative) [facility] CT Chest for screening WO co ntrastOrdered By: [facility] Provider on 12-27-[address] [facility] [address] LUNG SCREEN WO IVCONon CT LUNG SCREEN WO IVCON * * *Final Report* * * DATE OF EXAM: Dec 27 2023 2:44PM [place] [facility] - CT LUNG SCREEN WO IVCON [...] without contrast. MQ: CTLCS_6 Patient characteristics: * Umwj-zb-Njhtm: 1960; Age at exam: 63 years * Gender: Female * Lung Disease: Asymptomatic (no signs or symptoms of lung disease) * Number of Pack Years: 21.9 * Current smoker (=0) or Number of Years since Quit: 0 * Ordering provider and NPI: ARCELIA GARCIA [id number] * Interpreting radiologist and NPI: John [id number] Exam acquisition parameters: * Exam Date: 12/27/2023 2:44 PM * Site: [facility] * * CT System [employer] Salesperson: [employer] * CT System Model: [employer] * Tube Current-Time (mA-sec): 60 * [...] months. Other actionable findings: - ========= Reference: [employer]. Lung CT Screening Reporting and Data System (Lung-RADS). Available at: http://www.acr.org/Andrew lity-Safety/Resources/ LungRADS Equities Analyst: AMADO Transcribe Date/Time: Dec 27 2023 4:14P Dictated by : ILEANA MARQUEZ MD This examination was interpreted and the report reviewed and electronically signed by: ILEANA MARQUEZ MD on Dec 27 2023 4:28PM EST [id number] [facility] 12-05-2023 CNP Telephone (INTMWS) JENNIFER RAMIREZ ([id number]) 1960 F Date Time Provider Department 12/05/23 [...] went over results, notes from Eddie Rodríguez JOURNEYMAN PIPEFITTER with understanding. Daughter asking what did JOURNEYMAN PIPEFITTER want her to do next? See Ortho? [...] LPN 12/07/2023 4:[address] Lgiia Armijo LPN Allergies As of Date: 12/05/2023 [...] G89.29] Order(s):CONSULT TO ORTHOPAEDICS [9026] Order #: [id number]: 1 FUTURE Prescriptions as of 12/07/2023 - [...] once daily. Noble Gilbert CNP at the [facility]. - albuterol (PROVENTIL) 2.5 mg /3 mL (0.083 %) nebulizer solution Use 3 mL via nebulizer every 4 hours as needed for wheezing/shortness of breath. - polyethylene glycol 3350 (MIRALAX) 17 gram/dose powder Take 17 g by mouth once daily as needed for constipation. - traZODone (DESYREL) 100 mg tablet Take 2 tablets by mouth daily at bedtime. Noble Gilbert, [facility]. - tiotropium bromide (SPIRIVA RESPIMAT) 2.5 mcg/actuation inhaler Inhale 2 Puffs as instructed once daily. - Nebulizer NEBULIZER FOR HOME USE. DX: J45.41. Nebulizer and supplies. Face mask preferred. Problem List As Of Date 12/05/2023 Noted Resolved Irreducible ventral hernia [K43.6] 03/02/2011 08/17/2018 Depression [F32.A] Disc [[id number]] 08/17/2018 Hyperglycemia [R73.9] 12/15/2018 NEGATIVE MEDICAL HISTORY [...] cancer [Z12 (more content not included)... Normal [facility] CNPN Telephone (INTMWS) JENNIFER RAMIREZ ([id number]) 1960 F Date Time Provider Department 12/05/23 [...] message and verbalized understanding. Appointment scheduled with JOURNEYMAN PIPEFITTER Allergies As of Date: 12/05/2023 Noted Allergy [...] hernia [K43.6] 03/02/2011 08/17/2018 Depression [F32.A] Disc [[id number]] 08/17/2018 Hyperglycemia [R73.9] 12/15/2018 NEGATIVE MEDICAL HISTORY [...] Status:Closed by FAITH LANIER on 12/05/23 Normal [facility] ALBUMIN/CREATININE RATIO, UR INEon 12-01-2023 Albumin DL <= 20 mg/L (U) [Mass/Vol] mg/dL Normal [facility] Comment on above: Order Comment: Speci men Type: URINE SPECIMENOrdering Facility: [facility] Address: [address] [place] [address] Performed By: #### U ACR ####[facility] LABCLIA [id number] [place] [address] [place] Albumin/Creatinine (U) [Mass ratio] <6 Normal <30 [facility] Comment on above: Order Comment: Speci men Type: URINE SPECIMENOrdering Facility: [facility] Address: [address] [place] [address] Result Comment: Adul t Male and Female Nephrotic Criteria: <30 mg/g is considered normal to mildly increased 30-300 mg/g is considered moderately increased >300 mg/g is considered severely increased KDIGO. (2013). KDIGO 2012 Clinical Practice Guideline for the Evaluation and Management of Chronic Kidney Disease. Official Journal of the International Society of Nephrology, 3(1), 1-150. Performed By: #### U ACR ####[facility] LABCLIA [id number] [place] [address] [place] Creatinine (U) [Mass/Vol] 189.3 mg/dL Normal 20.0-300.0 [facility] Comment on above: Order Comment: Speci men Type: URINE SPECIMENOrdering Facility: [facility] Address: [address] [place] [address]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 [address] Urea nitrogen [Mass/Vol] 12 mg/dL Normal 7-18 [facility] Comment on above: Order Comment: 1 Y Performed By: #### L 501.5425, L100.0100, L500.2500 #### [facility] [address] [place], [address] Basophil percentageOrdered B y: Ronak Marte on 01-26-2023 Basophils/100 WBC (Bld) 0.4 % 0-1 [facility] Chloride [Moles/Vol] 111 mmol/L 98-107 [facility] Eosinophils/100 WBC (Bld) 2.4 % 0-5 [facility] Glucose [Mass/Vol] 147 mg/dL 74-106 [facility] Comment on above: Fasting Glucose resu lt greater than or equal to 126 mg/dL suggests DIABETES MELLITUS per A.D.A. criteria. Neutrophils (Bld) [#/Vol] 3.9 10*3/uL 2.0-7.7 [facility] Neutrophils/100 WBC (Bld) 50.0 % 47-70 [facility] Potassium [Moles/Vol] 3.6 mmol/L 3.5-5.1 [facility] Sodium [Moles/Vol] 141 mmol/L 136-145 [facility] WBC (Bld) [#/Vol] 7.9 10*3/uL 4.4-11.0 [facility] Blood erythrocytes count (nu mber/volume)Ordered By: Ronak Marte on 01-26-2023 RBC (Bld) [#/Vol] 4.96 10*6/uL 4.2-5.4 [facility] Blood hemoglobin measurement (mass/volume)Ordered By: Ronak Marte on 01-26-2023 Hemoglobin (Bld) [Mass/Vol] 14.8 g/dL 12.0-15.0 [facility] Blood lymphocytes/100 leukoc ytesOrdered By: Ronak Marte on 01-26-2023 Lymphocytes/100 WBC (Bld) 39.4 % 19-41 [facility] Blood monocytes/100 leukocyt esOrdered By: Ronak Marte on 01-26-2023 Monocytes/100 WBC (Bld) 7.5 % 0-10 [facility] Blood platelet mean volumeOr dered By: Ronak Marte on 01-26-2023 Platelet mean volume (Bld) [Entitic vol] 11.6 fL 6.2-12.0 [facility] CBC W/Diff, Automatedon - Absolute Lymph 3.09 X10 3/uL Normal 0.83-4.51 [facility] Comment on above: Performed By: #### L 501.5425, L100.0100, L500.2500 #### [facility] [address] [place], [address] Absolute Neut 3.9 X10 3/uL Normal 2.0-7.7 [facility] Comment on above: Performed By: #### L 501.5425, L100.0100, L500.2500 #### [facility] [address] [place], [address] Basophils/100 WBC (Bld) 0.4 % Normal 0-1 [facility] Comment on above: Performed By: #### L 501.5425, L100.0100, L500.2500 #### [facility] [address] [place], [address] Eosinophils/100 WBC (Bld) 2.4 % Normal 0-5 [facility] Comment on above: Performed By: #### L 501.5425, L100.0100, L500.2500 #### [facility] [address] [place], [address] Erythrocyte distribution width (RBC) [Ratio] 13.1 % Normal 11.6-14.6 [facility] Comment on above: Performed By: #### L 501.5425, L100.0100, L500.2500 #### [facility] [address] [facility] [place], [address] Hematocrit (Bld) [Volume fraction] 44.9 % Normal 37-47 [facility] Comment on above: Performed By: #### L 501.5425, L100.0100, L500.2500 #### [facility] [address] [place], [address] Hemoglobin (Bld) [Mass/Vol] 14.8 g/dL Normal 12.0-15.0 [facility] Comment on above: Performed By: #### L 501.5425, L100.0100, L500.2500 #### [facility] [address] [place], [address] IG% 0.300 Normal 0.0-0.9 [facility] Comment on above: Result Comment: IG% - Immature Granulocytes (promyelocytes, myelocytes and metamyelocytes) > 1% indicates that a LEFT SHIFT is Present. Performed By: #### L 501.5425, L100.0100, L500.2500 #### [facility] [address] [place], [address] Lymphocytes/100 WBC (Bld) 39.4 % Normal 19-41 [facility] Comment on above: Performed By: #### L 501.5425, L100.0100, L500.2500 #### [facility] [address] [place], [address] MCH (RBC) [Entitic mass] 29.8 pg Normal 27.0-32.0 [facility] Comment on above: Performed By: #### L 501.5425, L100.0100, L500.2500 #### [facility] [address] [place], [address] MCHC (RBC) [Mass/Vol] 33.0 g/dL Normal 32-36 [facility] Comment on above: Performed By: #### L 501.5425, L100.0100, L500.2500 #### [facility] [address] [place], [address] MCV (RBC) [Entitic vol] 90.5 fL Normal 81-99 [facility] Comment on above: Performed By: #### L 501.5425, L100.0100, L500.2500 #### [facility] [address] [place], [address] Monocytes/100 WBC (Bld) 7.5 % Normal 0-10 [facility] Comment on above: Performed By: #### L 501.5425, L100.0100, L500.2500 #### [facility] [address] [place], [address] Neutrophils/100 WBC (Bld) 50.0 % Normal 47-70 [facility] Comment on above: Performed By: #### L 501.5425, L100.0100, L500.2500 #### [facility] [address] [place], [address] Nucleated RBC (Bld) [#/Vol] 0 10*3/uL Normal 0-5 [facility] Comment on above: Performed By: #### L 501.5425, L100.0100, L500.2500 #### [facility] [address] [place], [address] Platelet mean volume (Bld) [Entitic vol] 11.6 fL Normal 6.2-12.0 [facility] Comment on above: Performed By: #### L 501.5425, L100.0100, L500.2500 #### [facility] [address] [place], [address] Platelets (Bld) [#/Vol] 215 10*3/uL Normal 150-450 [facility] Comment on above: Performed By: #### L 501.5425, L100.0100, L500.2500 #### [facility] [address] [place], [address] RBC (Bld) [#/Vol] 4.96 10*6/uL Normal 4.2-5.4 [facility] Comment on above: Performed By: #### L 501.5425, L100.0100, L500.2500 #### [facility] [address] [place], [address] RDW SD 43.3 fl Normal 35.1-43.9 [facility] Comment on above: Performed By: #### L 501.5425, L100.0100, L500.2500 #### [facility] [address] [place], [address] WBC (Bld) [#/Vol] 7.9 10*3/uL Normal 4.4-11.0 [facility] Comment on above: Performed By: #### L 501.5425, L100.0100, L500.2500 #### [facility] [address] [place], [address] CTA Chest W/WO Contraston CTA Chest W/WO Contrast [facility] Imaging Services [address] [place] [address] CTA Chest W/WO Contrast MR#: [id number] Acct: [id number] Name: JENNIFER RAMIREZ Rep #: [id number] : 1960 F 62 From: Kofi padilla MD PCP: Dr. Leonid Rice MD Status: REG ER Study: CTA Chest W/WO Contrast Date of Exam: 01/26/23 Exam# [id number] Ordering Dr: Ronak Marte DO [id number] STUDY: CTA CHEST REASON FOR EXAM: Female, [...] Ronak Marte DO; Dr. Leonid Rice MD Equities Analyst: Signed Normal [facility] Chest 1 View (Portable)on Chest 1 View (Portable) [facility] Imaging Services [address] [place] [address] Chest 1 View (Portable) MR#: [id number] Acct: [id number] Name: JENNIFER RAMIREZ Rep #: [id number] : 1960 F 62 From: Kofi padilla MD PCP: Dr. Leonid Rice MD Status: REG ER Study: Chest 1 View (Portable) Date of Exam: 01/26/23 Exam# [id number] Ordering Dr: Ronak Marte DO [id number] STUDY: X-RAY CHEST REASON FOR EXAM: Female, [...] Ronak Marte DO; Dr. Leonid Rice MD Equities Analyst: Signed Normal [facility] Determination of erythrocyte mean corpuscular volume (MCV)Ordered By: Ronak Marte on 01-26-2023 MCV (RBC) [Entitic vol] 90.5 fL 81-99 [facility] Emergency Department Summary on 01-26-2023 Emergency Department Summary [facility] Medical Records Department [address] [place] [address] Emergency Department Summary 01/26/23 MR#: [id number] Acct: [id number] Name: JENNIFER RAMIREZ Rep #: [id number] : 1960 62 From: Ronak Anguiano PCP: [...] Immobilization or Prior DVT or PE PFSH [facility] Medical History Anxiety Asthma Depression GERD (gastroesophageal [...] Negative f (more content not included)... Normal [facility] Hematocrit Auto (Bld) [Volum e fraction]Ordered By: Ronak Marte on 01-26-2023 Hematocrit (Bld) [Volume fraction] 44.9 % 37-47 [facility] L501.4020on 01-26-2023 TROPONIN-I HS 5 pg/mL Normal 3.0-54.0 [facility] Comment on above: Result Comment: Plea se Note: New Test Units and Gender Specific Reference Ranges. For more information see Policy Stat Procedure [place] High Sensitivity Troponin (TNIH) and attachments. Performed By: #### L 501.4020 ####[facility] [address] [facility] [place], [place], [address] L501.5421on 01-26-2023 TROPONIN-I HS 6 pg/mL Normal 3.0-54.0 [facility] Comment on above: Order Comment: 1 Y Result Comment: Plea se Note: New Test Units and Gender Specific Reference Ranges. For more information see Policy Stat Procedure [place] High Sensitivity Troponin (TNIH) and attachments. Performed By: #### L 501.5425, L100.0100, L500.2500 #### [facility] [address] [place], [address] Laboratory - Chemistry and C hemistry - challengeOrdered By: Ronak Marte on 01-26-2023 CO2 [Moles/Vol] 26.0 mmol/L 21.0-32.0 [facility] Urea nitrogen/Creatinine [Mass ratio] 10.8 mg/mg 10-20 [facility] Laboratory - Hematology and Cell countsOrdered By: Ronak Marte on 01-26-2023 Erythrocyte distribution width (RBC) [Entitic vol] 43.3 fL 35.1-43.9 [facility] Erythrocyte distribution width (RBC) [Ratio] 13.1 % 11.6-14.6 [facility] Immature granulocytes/100 WBC (Bld) 0.300 % 0.0-0.9 [facility] Comment on above: IG% - Immature Granu locytes (promyelocytes, myelocytes and metamyelocytes) > 1% indicates that a LEFT SHIFT is Present. MCH (RBC) [Entitic mass] 29.8 pg 27.0-32.0 [facility] Nucleated RBC/100 WBC (Bld) [Ratio] 0 % 0-5 [facility] MCHC Auto (RBC) [Mass/Vol]Or dered By: Ronak Marte on 01-26-2023 MCHC (RBC) [Mass/Vol] 33.0 g/dL 32-36 [facility] No Panel InformationOrdered By: Ronak Marte on 01-26-2023 Troponin I High Sensitivity 5 pg/mL 3.0-54.0 [facility] Comment on above: Please Note: New Julianne t Units and Gender Specific Reference Ranges. For more information see Policy Stat Procedure [place] High Sensitivity Troponin (TNIH) and attachments. Estimated Creatinine Clearance Calc 38.71 ml/min [facility] Estimated GFR (MDRD) Amer 64 mL/min >60 [facility] Comment on above: GFR Calc Estimated GFR (MDRD) Non-Af Amer 53 mL/min >60 [facility] Comment on above: Non- GFR Calc Platelets bldOrdered By: Philip Marte on 01-26-2023 Platelets (Bld) [#/Vol] 215 10*3/uL 150-450 [facility] Serum or plasma calcium enedelia urement (mass/volume)Ordered By: Ronak Marte on 01-26-2023 Calcium [Mass/Vol] 9.2 mg/dL 8.5-10.1 [facility] Serum or plasma creatinine m easurement (mass/volume)Ordered By: Ronak Marte on 01-26-2023 Creatinine [Mass/Vol] 1.11 mg/dL 0.55-1.02 [facility] Comment on above: The validity of the calculated GFR & GFRAA in patients over 70 years has not been determined. Clinical correlation is essential. Serum or plasma urea nitroge n measurement (mass/volume)Ordered By: Ronak Marte on 01-26-2023 Urea nitrogen [Mass/Vol] 12 mg/dL 7-18 [facility] Thin prep Papanicolaou smear with manual screeningOrdered By: Ronak Marte on 01-26-2023 Thin prep Papanicolaou smear with manual screening 4 5-15 [facility] XR Hand - left PA and Latera l and Obliqueon 11-23-2022 IMPRESSION: No acute osseous findings. Equities Analyst: PSCBritton Transcribe Date/Time: Nov 23 2022 7:56A Dictated by : SUNSHINE VARGAS MD This examination was interpreted and the report reviewed and electronically signed by: SUNSHINE VARGAS MD on Nov 23 2022 7:57AM [facility] DIVISION OF RADIOLOGY * * [...] erosions. IMPRESSION IMPRESSION: No acute osseous findings. Equities Analyst: PSCB Transcribe Date/Time: Nov 23 2022 7:56A Dictated by : SUNSHINE VARGAS MD This examination was interpreted and the report reviewed and electronically signed by: SUNSHINE VARGAS MD on Nov 23 2022 7:57AM EST [facility] XR Hand - left PA and Latera l and ObliqueOrdered By: Ccf Provider on 11-23-2022 [facility] CBC panel Auto (Bld)on 11-18 Erythrocyte distribution width (RBC) [Ratio] 13.0 % 11.5 - 15.0 % [facility] Hematocrit (Bld) [Volume fraction] 44.9 % 36.0 - 46.0 % [facility] Hemoglobin (Bld) [Mass/Vol] 15.0 g/dL 11.5 - 15.5 g/dL [facility] MCH (RBC) [Entitic mass] 30.1 pg 26.0 - 34.0 pg [facility] MCHC (RBC) [Mass/Vol] 33.4 g/dL 30.5 - 36.0 g/dL [facility] MCV (RBC) [Entitic vol] 90.0 fL 80.0 - 100.0 fL [facility] Nucleated RBC (Bld) [#/Vol] <0.01 k/uL [facility] Platelet mean volume (Bld) [Entitic vol] 11.3 fL 9.0 - 12.7 fL [facility] Platelets (Bld) [#/Vol] 214 10*3/uL 150 - 400 k/uL [facility] RBC (Bld) [#/Vol] 4.99 10*6/uL 3.90 - 5.2 0 m/uL [facility] WBC (Bld) [#/Vol] 10.10 10*3/uL 3.70 - 11 .00 k/uL [facility] ESR Westergren method (Bld) [Velocity]on 11-18-2022 ESR (Bld) [Velocity] 17 mm/h 0 - 20 mm/hr Cl [facility] XR Hand - left PA and Latera l and Obliqueon 11-18-2022 Radiology Study observation (narrative) [facility] CALVIN SCREENINGon 06-03-2022 [facility] XR Shoulder - left 3 Viewson 06-03-2022 IMPRESSION: No acute osseous abnormality Equities Analyst: AMADO Transcribe Date/Time: Jun 03 2022 3:21P Dictated by : MARCIA PURVIS MD This examination was interpreted and the report reviewed and electronically signed by: MARCIA PURVIS MD on Jun 03 2022 3:22PM [facility] DIVISION OF RADIOLOGY * * [...] acromioclavicular degenerative disease. DIVISION OF RADIOLOGY Provider, [facility] - 06/03/2022 * * *Final Report* * [...] disease. IMPRESSION IMPRESSION: No acute osseous abnormality Equities Analyst: AMADO Transcribe Date/Time: Jun 03 2022 3:21P Dictated by : MARCIA PURVIS MD This examination was interpreted and the report reviewed and electronically signed by: MARCIA PURVIS MD on Jun 03 2022 3:22PM EST [facility] XR Shoulder - left 3 ViewsOr dered By: [facility] Provider on 06-03-2022 [facility] XR SHOULDER GENERAL 3V OR MO RE AP/TRUE AP/OTHER LEFTon 05-31-2022 [facility] XR Shoulder - left 3 Viewson 05-31-2022 Radiology Study observation (narrative) [facility] CT LUNG SCREEN WO IVCONon [facility] Abdomen/Pelvis W IV Cont ONL Yon 02-14-2022 Abdomen/Pelvis W IV Cont ONLY [facility] Imaging Services [address] [place] [address] Abdomen/Pelvis W IV Cont ONLY MR#: [id number] Acct: [id number] Name: JENNIFER RAMIREZ Rep #: [id number] : 1960 F 61 From: Danny Stephens PCP: Dr. Leonid Rice MD Status: REG ER Study: Abdomen/Pelvis W IV Cont ONLY Date of Exam: Exam# [id number] Ordering Dr: Kavon Wells DO STUDY: CT [...] 18:05 EST Reading Location ID and State: [facility] / [place] , Service support , CC: Dr. Kavon Wells, DO; Dr. Leonid Rice MD Equities Analyst: Signed Normal [facility] Absolute lymphocyte counton 02-14-2022 Lymphocytes Auto (Unsp spec) [#/Vol] 3.64 10*3/uL 0.83-4.51 [facility] Work Phone: Amorphous sediment detection in urine sediment by light microscopyon 02-14-2022 Amorphous sediment LM Ql (Urine sed) 1+ [facility] Work Phone: Basophil percentageon 2021 Basophil percentage 0 SEEN /hpf 0-5 [facility] Work Phone: Basophils/100 WBC (Bld) 0.4 % 0-1 [facility] Work Phone: Bilirubin [Mass/Vol] 0.20 mg/dL 0.20-1.00 [facility] Work Phone: Comment on above: For patients on eltr ombopag therapy, use of Dimension [place] TBIL is not recommended. Chloride [Moles/Vol] 109 mmol/L 98-107 [facility] Work Phone: [phone] Eosinophils/100 WBC (Bld) 3.1 % 0-5 [facility] Work Phone: Glucose [Mass/Vol] 118 mg/dL 74-106 [facility] Work Phone: [phone] Comment on above: Fasting Glucose resu lt from 100 to 125 mg/dL suggests IMPAIRED HOMEOSTASIS per A.D.A. criteria. Neutrophils (Bld) [#/Vol] 5.3 10*3/uL 2.0-7.7 [facility] Work Phone: [phone] Neutrophils/100 WBC (Bld) 52.7 % 47-70 [facility] Work Phone: [phone] Potassium [Moles/Vol] 3.8 mmol/L 3.5-5.1 [facility] Work Phone: [phone] Protein [Mass/Vol] 7.1 g/dL 6.4-8.2 [facility] Work Phone: Sodium [Moles/Vol] 140 mmol/L 136-145 [facility] Work Phone: WBC (Bld) [#/Vol] 10.0 10*3/uL 4.4-11.0 [facility] Work Phone: Bilirubin Test strip Ql (U)o n 02-14-2022 Bilirubin Ql (U) Negative Negative [facility] Work Phone: Blood erythrocytes count (nu mber/volume)on 02-14-2022 RBC (Bld) [#/Vol] 4.95 10*6/uL 4.2-5.4 [facility] Work Phone: Blood hemoglobin measurement (mass/volume)on 02-14-2022 Hemoglobin (Bld) [Mass/Vol] 14.4 g/dL 12.0-15.0 [facility] Work Phone: Blood lymphocytes/100 leukoc yteson 02-14-2022 Lymphocytes/100 WBC (Bld) 36.4 % 19-41 [facility] Work Phone: Blood monocytes/100 leukocyt eson 02-14-2022 Monocytes/100 WBC (Bld) 6.8 % 0-10 [facility] Work Phone: Blood platelet mean volumeon 02-14-2022 Platelet mean volume (Bld) [Entitic vol] 11.2 fL 6.2-12.0 [facility] Work Phone: [phone] CBC W/Diff, Automatedon 0 Absolute Lymph 3.64 X10 3/uL Normal 0.83-4.51 [facility] Comment on above: Performed By: #### L 500.4050, L100.0100, L501.2450 ####[facility] [address] [place], [address] Absolute Neut 5.3 X10 3/uL Normal 2.0-7.7 [facility] Comment on above: Performed By: #### L 500.4050, L100.0100, L501.2450 ####[facility] [address] [place], [address] Basophils/100 WBC (Bld) 0.4 % Normal 0-1 [facility] Comment on above: Performed By: #### L 500.4050, L100.0100, L501.2450 ####[facility] [address] [place], [address] Eosinophils/100 WBC (Bld) 3.1 % Normal 0-5 [facility] Comment on above: Performed By: #### L 500.4050, L100.0100, L501.2450 ####[facility] [address] [place], [address] Erythrocyte distribution width (RBC) [Ratio] 13.2 % Normal 11.6-14.6 [facility] Comment on above: Performed By: #### L 500.4050, L100.0100, L501.2450 ####[facility] [address] [place], [address] Hematocrit (Bld) [Volume fraction] 43.7 % Normal 37-47 [facility] Comment on above: Performed By: #### L 500.4050, L100.0100, L501.2450 ####[facility] [address] [place], [address] Hemoglobin (Bld) [Mass/Vol] 14.4 g/dL Normal 12.0-15.0 [facility] Comment on above: Performed By: #### L 500.4050, L100.0100, L501.2450 ####[facility] [address] [place], [address] IG% 0.600 Normal 0.0-0.9 [facility] Comment on above: Result Comment: IG% - Immature Granulocytes (promyelocytes, myelocytes and metamyelocytes) > 1% indicates that a LEFT SHIFT is Present. Performed By: #### L 500.4050, L100.0100, L501.2450 ####[facility] [address] [place], [address] Lymphocytes/100 WBC (Bld) 36.4 % Normal 19-41 [facility] Comment on above: Performed By: #### L 500.4050, L100.0100, L501.2450 ####[facility] [address] [place], [address] MCH (RBC) [Entitic mass] 29.1 pg Normal 27.0-32.0 [facility] Comment on above: Performed By: #### L 500.4050, L100.0100, L501.2450 ####[facility] [address] [place], [address] MCHC (RBC) [Mass/Vol] 33.0 g/dL Normal 32-36 [facility] Comment on above: Performed By: #### L 500.4050, L100.0100, L501.2450 ####[facility] [address] [place], [address] MCV (RBC) [Entitic vol] 88.3 fL Normal 81-99 [facility] Comment on above: Performed By: #### L 500.4050, L100.0100, L501.2450 ####[facility] [address] [place], [address] Monocytes/100 WBC (Bld) 6.8 % Normal 0-10 [facility] Comment on above: Performed By: #### L 500.4050, L100.0100, L501.2450 ####[facility] [address] [place], [address] Neutrophils/100 WBC (Bld) 52.7 % Normal 47-70 [facility] Comment on above: Performed By: #### L 500.4050, L100.0100, L501.2450 ####[facility] [address] [place], [address] Nucleated RBC (Bld) [#/Vol] 0 10*3/uL Normal 0-5 [facility] Comment on above: Performed By: #### L 500.4050, L100.0100, L501.2450 ####[facility] [address] [place], [address] Platelet mean volume (Bld) [Entitic vol] 11.2 fL Normal 6.2-12.0 [facility] Comment on above: Performed By: #### L 500.4050, L100.0100, L501.2450 ####[facility] [address] [place], [address] Platelets (Bld) [#/Vol] 221 10*3/uL Normal 150-450 [facility] Comment on above: Performed By: #### L 500.4050, L100.0100, L501.2450 ####[facility] [address] [place], [address] RBC (Bld) [#/Vol] 4.95 10*6/uL Normal 4.2-5.4 [facility] Comment on above: Performed By: #### L 500.4050, L100.0100, L501.2450 ####[facility] [address] [place], [address] RDW SD 42.4 fl Normal 35.1-43.9 [facility] Comment on above: Performed By: #### L 500.4050, L100.0100, L501.2450 ####[facility] [address] [place], [address] WBC (Bld) [#/Vol] 10.0 10*3/uL Normal 4.4-11.0 [facility] Comment on above: Performed By: #### L 500.4050, L100.0100, L501.2450 ####[facility] [address] [place], [address] Comprehensive Metabolic Prof [facility] 02-14-2022 Albumin [Mass/Vol] 3.1 g/dL Low 3.2-5.0 [facility] Comment on above: Performed By: #### L 500.4050, L100.0100, L501.2450 ####[facility] [address] [place], [address] Albumin/Globulin [Mass ratio] 0.8 {ratio} Low 0.9-2.4 [facility] Comment on above: Performed By: #### L 500.4050, L100.0100, L501.2450 ####[facility] [address] [place], [address] ALK P 132 U/L High 45-117 [facility] Comment on above: Performed By: #### L 500.4050, L100.0100, L501.2450 ####[facility] [address] [place], [address] ALT [Catalytic activity/Vol] 21 U/L Normal 13-56 [facility] Comment on above: Performed By: #### L 500.4050, L100.0100, L501.2450 ####[facility] [address] [place], [address] AST [Catalytic activity/Vol] 15 U/L Normal 15-37 [facility] Comment on above: Performed By: #### L 500.4050, L100.0100, L5.2450 ####[facility] [address] [place], [address] Bilirubin [Mass/Vol] 0.20 mg/dL Normal 0.20-1.00 [facility] Comment on above: Result Comment: For patients on eltrombopag therapy, use of Dimension [place] TBIL is not recommended. Performed By: #### L 500.4050, L100.0100, L5.2450 ####[facility] [address] [place], [address] BUN/CRE 10.4 RATIO Normal 10-20 [facility] Comment on above: Performed By: #### L 500.4050, L100.0100, L5.2450 ####[facility] [address] [place], [address] CA,Total 9.1 mg/dL Normal 8.5-10.1 [facility] Comment on above: Performed By: #### L 500.4050, L100.0100, L501.2450 ####[facility] [address] [place], [address] Chloride [Moles/Vol] 109 mmol/L High 98-107 [facility] Comment on above: Performed By: #### L 500.4050, L100.0100, L501.2450 ####[facility] [address] [place], [address] CO2 [Moles/Vol] 27.0 mmol/L Normal 21.0-32.0 [facility] Comment on above: Performed By: #### L 500.4050, L100.0100, L501.2450 ####[facility] [address] [place], [address] Creatinine [Mass/Vol] 0.96 mg/dL Normal 0.55-1.02 [facility] Comment on above: Result Comment: The validity of the calculated GFR GFRAA in patients over 70 years has not been determined. Clinical correlation is essential. Performed By: #### L 500.4050, L100.0100, L501.2450 ####[facility] [address] [place], [address] ECRCL 45.32 ml/min Normal [facility] Comment on above: Performed By: #### L 500.4050, L100.0100, L501.2450 ####[facility] [address] [place], [address] EST GFR - AA 76 mL/min Normal >60 [facility] Comment on above: Result Comment: Afri can Palestinian GFR Calc Performed By: #### L 500.4050, L100.0100, L501.2450 ####[facility] [address] [place], [address] GAP 4 Low 5-15 [facility] Comment on above: Performed By: #### L 500.4050, L100.0100, L501.2450 ####[facility] [address] [place], [address] GFR/1.73 sq M.predicted among non-blacks MDRD (S/P/Bld) [Vol rate/Area] 63 mL/min/{1.73_m2} Normal >60 [facility] Comment on above: Result Comment: Non- GFR Calc Performed By: #### L 500.4050, L100.0100, L501.2450 ####[facility] [address] [place], [address] Globulin (S) [Mass/Vol] 4.0 g/dL Normal 2.2-4.2 [facility] Comment on above: Performed By: #### L 500.4050, L100.0100, L501.2450 ####[facility] [address] [place], [address] Glucose [Mass/Vol] 118 mg/dL High 74-106 [facility] Comment on above: Result Comment: Fast ing Glucose result from 100 to 125 mg/dL suggests IMPAIRED HOMEOSTASIS per A.D.A. criteria. Performed By: #### L 500.4050, L100.0100, L501.2450 ####[facility] [address] [place], [address] Potassium [Moles/Vol] 3.8 mmol/L Normal 3.5-5.1 [facility] Comment on above: Performed By: #### L 500.4050, L100.0100, L501.2450 ####[facility] [address] [place], [address] Sodium [Moles/Vol] 140 mmol/L Normal 136-145 [facility] Comment on above: Performed By: #### L 500.4050, L100.0100, L501.2450 ####[facility] [address] [place], [address] T PROT 7.1 g/dL Normal 6.4-8.2 [facility] Comment on above: Performed By: #### L 500.4050, L100.0100, L501.2450 ####[facility] [address] [place], [address] Urea nitrogen [Mass/Vol] 10 mg/dL Normal 7-18 [facility] Comment on above: Performed By: #### L 500.4050, L100.0100, L501.2450 ####[facility] [address] [place], [address] Determination of erythrocyte mean corpuscular volume (MCV)on 02-14-2022 MCV (RBC) [Entitic vol] 88.3 fL 81-99 [facility] Work Phone: Emergency Department Summary on 02-14-2022 Emergency Department Summary [facility] Medical Records Department [address] [place] [address] Emergency Department Summary 02/14/22 MR#: [id number] Acct: [id number] Name: JENNIFER RAMIREZ Rep #: [id number] : 1960 61 From: Kavon Wells DO [...] vomiting, constipation, diarrhea. She denies urinary complaints. [facility] Medical History Anxiety Asthma Depression GERD (gastroesophageal [...] is a chronic condition which she is Kiswahili-speaking but her family (more content not included)... Normal [facility] Hematocrit Auto (Bld) [Volum e fraction]on 02-14-2022 Hematocrit (Bld) [Volume fraction] 43.7 % 37-47 [facility] Work Phone: Ketones Test strip Ql (U)on 02-14-2022 Ketones Ql (U) Negative Negative [facility] Work Phone: Laboratory - Chemistry and C hemistry - challengeon 02-14-2022 ALP [Catalytic activity/Vol] 132 U/L 45-117 [facility] Work Phone: ALT [Catalytic activity/Vol] 21 U/L 13-56 [facility] Work Phone: CO2 [Moles/Vol] 27.0 mmol/L 21.0-32.0 [facility] Work Phone: Globulin (S) [Mass/Vol] 4.0 g/dL 2.2-4.2 [facility] Work Phone: Lipase [Catalytic activity/Vol] 38 U/L 73-393 [facility] Work Phone: [phone] Urea nitrogen/Creatinine [Mass ratio] 10.4 mg/mg 10-20 [facility] Work Phone: [phone] Laboratory - Hematology and Cell countson 02-14-2022 Erythrocyte distribution width (RBC) [Entitic vol] 42.4 fL 35.1-43.9 [facility] Work Phone: Erythrocyte distribution width (RBC) [Ratio] 13.2 % 11.6-14.6 [facility] Work Phone: [phone] Immature granulocytes/100 WBC (Bld) 0.600 % 0.0-0.9 [facility] Work Phone: Comment on above: IG% - Immature Granu locytes (promyelocytes, myelocytes and metamyelocytes) > 1% indicates that a LEFT SHIFT is Present. MCH (RBC) [Entitic mass] 29.1 pg 27.0-32.0 [facility] Work Phone: Nucleated RBC/100 WBC (Bld) [Ratio] 0 % 0-5 [facility] Work Phone: Lipaseon 02-14-2022 Lipase [Catalytic activity/Vol] 38 U/L Low 73-393 [facility] Comment on above: Performed By: #### L 500.4050, L100.0100, L501.2450 ####[facility] [address] [place], [place], [address] MCHC Auto (RBC) [Mass/Vol]on 02-14-2022 MCHC (RBC) [Mass/Vol] 33.0 g/dL 32-36 [facility] Work Phone: Mucus LM Ql (Urine sed)on Mucus Ql (Urine sed) 0 SEEN /hpf [facility] Work Phone: Nitrite Test strip Ql (U)on 02-14-2022 Nitrite Ql (U) Negative Negative [facility] Work Phone: No Panel Informationon 02-14 Estimated Creatinine Clearance Calc 45.32 ml/min [facility] Work Phone: Estimated GFR (MDRD) Amer 76 mL/min >60 [facility] Work Phone: Comment on above: GFR Calc Estimated GFR (MDRD) Non-Af Amer 63 mL/min >60 [facility] Work Phone: Comment on above: Non- GFR Calc Platelets bldon 02-14-2022 Platelets (Bld) [#/Vol] 221 10*3/uL 150-450 [facility] Work Phone: Protein Test strip Ql (U)on 02-14-2022 Protein Ql (U) Negative Negative [facility] Work Phone: Serum or plasma albumin enedelia urement (mass/volume)on 02-14-2022 Albumin [Mass/Vol] 3.1 g/dL 3.2-5.0 [facility] Work Phone: Serum or plasma albumin/glob ulin mass ratioon 02-14-2022 Albumin/Globulin [Mass ratio] 0.8 {ratio} 0.9-2.4 [facility] Work Phone: Serum or plasma calcium enedelia urement (mass/volume)on 02-14-2022 Calcium [Mass/Vol] 9.1 mg/dL 8.5-10.1 [facility] Work Phone: Serum or plasma creatinine m easurement (mass/volume)on 02-14-2022 Creatinine [Mass/Vol] 0.96 mg/dL 0.55-1.02 [facility] Work Phone: Comment on above: The validity of the calculated GFR & GFRAA in patients over 70 years has not been determined. Clinical correlation is essential. Serum or plasma urea nitroge n measurement (mass/volume)on 02-14-2022 Urea nitrogen [Mass/Vol] 10 mg/dL 7-18 [facility] Work Phone: Squamous epithelial cells de tection in urine sediment by light microscopyon 02-14-2022 Epithelial cells.squamous LM Ql (Urine sed) 0-5 SEEN /hpf 5-10 [facility] Work Phone: Thin prep Papanicolaou smear with manual screeningon 02-14-2022 Thin prep Papanicolaou smear with manual screening 15 U/L 15-37 [facility] Work Phone: Thin prep Papanicolaou smear with manual screening 4 5-15 [facility] Work Phone: Urinalysis, Completeon 02-14 AMORPHOUS 1+ Normal [facility] Comment on above: Order Comment: CLEAN CATCH Performed By: #### L 400.0001 #### [facility] [address] [place], [address] EPI,SQUAMOUS 0-5 SEEN Normal 5-10 [facility] Comment on above: Order Comment: CLEAN CATCH Performed By: #### L 400.0001 #### [facility] [address] [place], [address] BACTERIA 0 SEEN Normal None Seen [facility] Comment on above: Order Comment: CLEAN CATCH Performed By: #### L 400.0001 #### [facility] [address] [place], [address] Mucus Ql (Urine sed) 0 SEEN Normal [facility] Comment on above: Order Comment: CLEAN CATCH Performed By: #### L 400.0001 #### [facility] [address] [place], [address] RBC 0 SEEN Normal 0-5 [facility] Comment on above: Order Comment: CLEAN CATCH Performed By: #### L 400.0001 #### [facility] [address] [place], [address] WBC 0 SEEN Normal 0-5 [facility] Comment on above: Order Comment: CLEAN CATCH Performed By: #### L 400.0001 #### [facility] [place], [address] Urine blood detectionon - RBC Ql (U) Negative Negative [facility] Work Phone: RBC Ql (U) 0 SEEN /hpf 0-5 [facility] Work Phone: Urine clarityon 02-14-2022 Clarity (U) Clear Clear [facility] Work Phone: Urine color determinationon 02-14-2022 Color (U) Yellow Yellow [facility] Work Phone: Urine glucose detectionon Glucose Ql (U) Normal mg/dl Normal [facility] Work Phone: Urine leukocyte esterase det ection by dipstickon 02-14-2022 Leukocyte esterase Test strip Ql (U) Negative Negative [facility] Work Phone: Urine pHon 02-14-2022 pH (U) 6.5 [pH] 5.0 - 8.0 [facility] Work Phone: Urine sediment bacteria coun t by microscopy (number/high power field)on 02-14-2022 Bacteria LM.HPF (Urine sed) [#/Area] 0 /[HPF] None Seen [facility] Work Phone: Urine specific gravity measu rementon 02-14-2022 Specific gravity (U) [Rel density] 1.020 1.002-1.030 [facility] Work Phone: Urobilinogen Auto test strip Ql (U)on 02-14-2022 Urobilinogen Ql (U) Normal mg/dl Normal [facility] Work Phone: XR ABDOMEN 2V ROUTINE SUPINE W UPRIGHT/DECUB/CTLon 11-29-2021 [facility] XR Abdomen Supine and Uprigh ton 11-29-2021 IMPRESSION: Nonobstructive bowel gas pattern. Equities Analyst: AMADO Transcribe Date/Time: Nov 29 2021 2:59P [...] lower lumbar spine. DIVISION OF RADIOLOGY Provider, [facility] - 11/29/2021 * * *Final Report* * [...] spine. IMPRESSION IMPRESSION: Nonobstructive bowel gas pattern. Equities Analyst: [facility] Transcribe Date/Time: Nov 29 2021 2:59P Dictated by : DESMOND PÉREZ MD This examination was interpreted and the report reviewed and electronically signed by: DESMOND PÉREZ MD on Nov 29 2021 3:00PM EST [facility] Radiology Study observation (narrative) [facility] XR Abdomen Supine and Uprigh tOrdered By: [facility] Provider on 11-29-2021 [facility] No Panel Informationon 10-06 [facility] EMERGENCY REPORTon 05-09-202 1 EMERGENCY REPORT [facility] EMERGENCY ROOM REPORT NAME ACCOUNT SEX AGE ADMIT DISCHARGE PT MED. RECORD# NUMBER DATE DATE TYPE YAJAIRA [id number] F 59 07/12/20 07/12/20 3 FRANCNEWTONJENNIFER [id number] ROOM: ER DATE OF : 1960 DICTATING [...] Mikael Pelletier DO 07/12/20 12:25 JOB #: [id number] Transcribed By: am 07/12/20 18:16 Electronically signed by: JONO Pelletier D.O. 07/19/20 07:16 Page 2 of 2 YAJAIRA MCMULLEN, Emergency Room Report JENNIFER Normal [facility] CBC + DIFFon 07-12-2020 Baso # 0.00 x10EE3/UL Normal 0.00 - 0.10 [facility] Comment on above: Performed By: #### 2 [id number] #### [facility],[address] [place] [address] Basophils/100 WBC (Bld) 0.7 % Normal 0.0 - 2.0 [facility] Comment on above: Performed By: #### 2 77629 #### [facility],[address] [place] [address] CBC + DIFF Normal [facility] Comment on above: Result Comment: CBC- COMPLETE BLOOD COUNT Performed By: #### 2 43679 #### [facility],[address] [place] [address] EO # 0.40 x10EE3/UL Normal 0.00 - 0.50 [facility] Comment on above: Performed By: #### 2 46105 #### [facility],[address] [place] [address] Eosinophils/100 WBC (Bld) 5.1 % Normal 0.0 - 7.0 [facility] Comment on above: Performed By: #### 2 72541 #### [facility],[address] [place] [address] Erythrocyte distribution width (RBC) [Ratio] 13.6 % Normal 12.0 - 15.6 [facility] Comment on above: Performed By: #### 2 96052 #### [facility],[address] [place] [address] Hematocrit (Bld) [Volume fraction] 42.2 % Normal 34.0 - 46.0 [facility] Comment on above: Performed By: #### 2 75473 #### [facility],[address] [place] [address] Hemoglobin (Bld) [Mass/Vol] 14.5 g/dL Normal 12.0 - 16.0 [facility] Comment on above: Performed By: #### 2 [id number] #### [facility],[address] [place] [address] Lymph # 2.20 x10EE3/UL Normal 0.80 - 2.80 [facility] Comment on above: Performed By: #### 2 76691 #### [facility],[address] [place] [address] Lymphocytes/100 WBC (Bld) 29.0 % Normal 20.0 - 45.0 [facility] Comment on above: Performed By: #### 2 77322 #### [facility],[address] [place], [place] [id number] MANUAL DIFF N/A Normal [facility] Comment on above: Performed By: #### 2 02509 #### [facility],[address] [place], [place] [id number] MCH (RBC) [Entitic mass] 30 pg Normal 27 - 33 [facility] Comment on above: Performed By: #### 2 77035 #### [place] [address] MCHC 34 X10 3 Normal 32 - 36 [facility] Comment on above: Performed By: #### 2 97821 #### [facility],[address] [place] [address] 24461 MCV (RBC) [Entitic vol] 87 fL Normal 80 - 99 [facility] Comment on above: Performed By: #### 2 92358 #### [facility],[address] [place] [address] 12770 Grimes # 0.60 x10EE3/UL Normal 0.20 - 1.00 [facility] Comment on above: Performed By: #### 2 67093 #### [facility],[address] [place] [address] 83080 MONOS % 7.9 % Normal 0.0 - 10.0 [facility] Comment on above: Performed By: #### 2 17580 #### [facility],[address] [place] [address] 32064 Morphology Torres (Bld) [Interp] N/A Normal [facility] Comment on above: Result Comment: {CD] Performed By: #### 2 96075 #### [facility],[address] [place] [address] 72979 Neut # 4.30 x10EE3/UL Normal 1.50 - 7.10 [facility] Comment on above: Performed By: #### 2 40243 #### [facility],[address] [place] [address] 23785 Neutrophils/100 WBC (Bld) 57.3 % Normal 46.0 - 76.0 [facility] Comment on above: Performed By: #### 2 96241 #### [facility],[address] [place] [address] 63920 PLATELET 219 x10EE3/UL Normal 150 - 450 [facility] Comment on above: Performed By: #### 2 66865 #### [facility],[address] [place] [address] 22397 Platelet mean volume (Bld) [Entitic vol] 9.4 fL Normal 6.6 - 10.5 [facility] Comment on above: Result Comment: AUTO MATED DIFFERENTIAL Performed By: #### 2 87586 #### [facility],[address] [place] [address] 43304 RBC 4.86 x 10EE6/UL Normal 4.10 - 5.30 [facility] Comment on above: Performed By: #### 2 64350 #### [facility],[address] [place] [address] 39217 WBC 7.5 x 10EE3/UL Normal 4.5 - 10.8 [facility] Comment on above: Performed By: #### 2 87314 #### [facility],[address] [place] [address] 62084 CMP with eGFRon 07-12-2020 AGE 59 years Normal [facility] Comment on above: Performed By: #### 2 15281 #### [facility],[address] [place] [address] 64715 Albumin [Mass/Vol] 3.2 g/dL Low 3.4 - 5.0 [facility] Comment on above: Performed By: #### 2 54523 #### [facility],[address] [place] [address] 63085 Albumin/Globulin [Mass ratio] 0.8 {ratio} Low 0.9 - 1.6 [facility] Comment on above: Performed By: #### 2 39590 #### [facility],[address] [place] [address] 08830 ALK PHOS 148 U/L High 46 - 116 [facility] Comment on above: Performed By: #### 2 89359 #### [address] [address] ALT [Catalytic activity/Vol] 29 U/L Normal 14 - 59 [facility] Comment on above: Performed By: #### 2 83384 #### [facility],[address] [place] [address] 16193 Anion gap [Moles/Vol] 15 mmol/L Normal 10 - 20 [facility] Comment on above: Performed By: #### 2 37286 #### [facility],[address] [place], [place] [id number] AST [Catalytic activity/Vol] 16 U/L Normal 13 - 39 [facility] Comment on above: Performed By: #### 2 73460 #### [facility],[address] [place] [address] B/C RATIO 11 ratio Normal 0 - 30 [facility] Comment on above: Performed By: #### 2 75958 #### [facility],[address] [place] [address] Bilirubin [Mass/Vol] 0.4 mg/dL Normal 0.2 - 1.0 [facility] Comment on above: Performed By: #### 2 11106 #### [facility],[address] [place], [place] [id number] Calcium [Mass/Vol] 8.8 mg/dL Normal 8.5 - 10.1 [facility] Comment on above: Performed By: #### 2 98726 #### [facility],[address] [place], [place] [address] Chloride [Moles/Vol] 104 mmol/L Normal 98 - 107 [facility] Comment on above: Performed By: #### 2 80601 #### [facility],[address] [place] [address] 58706 CMP with eGFR Normal [facility] Comment on above: Result Comment: COMP REHENSIVE METABOLIC PANEL Performed By: #### 2 92320 #### [facility],[address] [place] [address] 80469 CO2 [Moles/Vol] 24.6 mmol/L Normal 21.0 - 32.0 [facility] Comment on above: Performed By: #### 2 14595 #### [facility],[address] [place], [place] [address] Creatinine [Mass/Vol] 0.9 mg/dL Normal 0.5 - 1.0 [facility] Comment on above: Performed By: #### 2 00601 #### [facility],[address] [place], [place] [address] GFR/1.73 sq M.predicted among non-blacks MDRD (S/P/Bld) [Vol rate/Area] mL/min/{1.73_m2} Normal 60 - 999 [facility] Comment on above: Performed By: #### 2 12215 #### [facility],[address] [place] [address] Result Comment: ACCO RDING TO THE NATIONAL KIDNEY DISEASE EDUCATION PROGRAM(NKDE), A NORMAL eGFR IS A VALUE GREATER THAN OR EQUAL TO 60 ML/MIN/1.73 SQ METERS. CHRONIC KIDNEY DISEASE: <60mL/MIN/1.73 SQ METERS KIDNEY FAILURE: <15mL/MIN/1.73 SQ METERS THIS TEST SHOULD ONLY BE USED FOR PATIENTS 18 YEARS OF AGE AND OLDER. Globulin (S) [Mass/Vol] 4.1 g/dL High 1.5 - 3.8 [facility] Comment on above: Performed By: #### 2 47761 #### [facility],[address] [place] [address]106 Glucose [Mass/Vol] 168 mg/dL High 74 - 106 [facility] Comment on above: Performed By: #### 2 06467 #### [facility],[address] [place] [address] 02915 Potassium [Moles/Vol] 3.5 mmol/L Normal 3.5 - 5.1 [facility] Comment on above: Performed By: #### 2 33537 #### [facility],[address] [place] [address] 91096 Protein [Mass/Vol] 7.3 g/dL Normal 6.4 - 8.2 [facility] Comment on above: Performed By: #### 2 21172 #### [facility],[address] [place] [address] 08428 Sodium [Moles/Vol] 140 mmol/L Normal 136 - 145 [facility] Comment on above: Performed By: #### 2 39897 #### [facility],[address] [place] [address] 77947 Urea nitrogen [Mass/Vol] 10 mg/dL Normal 7 - 18 [facility] Comment on above: Performed By: #### 2 15835 #### [facility],[address] [place] [address] CHEST (PE PROTOCOL)on CT CHEST (PE PROTOCOL) [place] [address] Patient: JENNIFER RAMIREZ Phone#: : 1960 Age: 59 Gender: F Pt. Type: ER Account: [id number] Location: [facility] Ordering: MIKAEL PELLETIER Exam Date: 07/12/2020/11:09 Family Phys: Charge Code: [id number] Physician: [facility] Order #: [id number] DLP Dose#: PROCEDURE: CT CHEST WITH CONTRAST FOR PE COMPARISON: [facility], CT, CHEST PE W CON, [...] There is no evidence of pulmonary embolus. [address] [address] Patient: JENNIFER RAMIREZ Phone#: : 1960 Age: 59 Gender: F Pt. Type: ER Account: [id number] Location: 052 Ordering: [facility] Exam Date: 07/12/2020/11:09 Family Phys: Charge Code: [id number] Physician: [facility] Order #: [id number] DLP Dose#: Dictated by: Sheryl Sorensen MD on 07/12/2020 at 19:13 Approved by: Sheryl Sorensen MD on 07/12/2020 at 19:15 Normal [facility] RIBS LT UNILAT W/CHEST EXPIR ATIONon 07-12-2020 RIBS LT UNILAT W/CHEST EXPIRATION [address] [address] Patient: JENNIFER RAMIREZ Phone#: : 1960 Age: 59 Gender: F Pt. Type: ER Account: [id number] Location: 052 Ordering: [facility] Exam Date: 07/12/2020/9:58 Family Phys: Charge Code: [id number] Physician: [facility] Order #: [id number] DLP Dose#: PROCEDURE: X-RAY RIBS LT UNILAT [...] Sorensen MD on 07/12/2020 at 18:27 Normal [facility] TROPONIN I, HIGH SENSITIVITY on 07-12-2020 HS TROPONIN 6.1 pg/mL Normal 0.0 - 51.4 [facility] Comment on above: Performed By: #### 2 23261 #### [facility],[address] [place] [address] XR KNEE LEFT (3 VIEWS)on XR KNEE [...] Imtiaz Aceves MD 06/26/18 Final result Normal [facility] XR ABDOMEN (KUB) (SINGLE AP VIEW)on 04-25-2018 [...] Juan Aguayo MD 04/25/18 Final result Normal [facility] XR KNEE LEFT (3 VIEWS)on XR KNEE LEFT (3 VIEWS) EXAMINATION: XR KNEE LEFT (3 VIEWS) CLINICAL HISTORY: Jennifer Gates?is a 57 y.o.?female?who presents to the Emergency Department with L posterior knee pain after missing a step and landing on her L side [employer]. ?She denies any other injury. ?She is [...] Faiza Abrams MD 02/22/18 Final result Normal [facility] CBC With Platelet and Differ entialon 01-30-2018 Basophils Auto #/vol (Bld) 0.0 10*3/uL Normal 0.0-0.2 [facility] Basophils/100 WBC Auto (Bld) 0.6 % Normal [facility] Eosinophils Auto #/vol (Bld) 0.2 10*3/uL Normal 0.0-0.7 [facility] Eosinophils/100 WBC Auto (Bld) 2.5 % Normal [facility] Erythrocyte distribution width Auto Ratio (RBC) 14.6 % Critically high 11.5-14.5 [facility] Hematocrit Auto Volume Fraction (Bld) 41.3 % Normal 37.0-47.0 [facility] Hemoglobin mass conc (Bld) 14.1 g/dL Normal 12.0-16.0 [facility] Lymphocytes Auto #/vol (Bld) 2.5 10*3/uL Normal 1.0-4.8 [facility] Lymphocytes/100 WBC Auto (Bld) 31.6 % Normal [facility] MCH Auto Entitic mass (RBC) 30.4 pg Normal 27.0-31.3 [facility] MCHC Auto mass conc (RBC) 34.1 % Normal 33.0-37.0 [facility] MCV Auto Entitic volume (RBC) 89.1 fL Normal 82.0-100.0 [facility] Monocytes Auto #/vol (Bld) 0.4 10*3/uL Normal 0.2-0.8 [facility] Monocytes/100 WBC Auto (Bld) 5.3 % Normal [facility] Neutrophils Auto #/vol (Bld) 4.8 10*3/uL Normal 1.4-6.5 [facility] Neutrophils/100 WBC Auto (Bld) 60.0 % Normal [facility] Platelets Auto #/vol (Bld) 211 10*3/uL Normal 130-400 [facility] RBC Auto #/vol (Bld) 4.64 10*6/uL Normal 4.20-5.40 [facility] WBC Auto #/vol (Bld) 7.9 10*3/uL Normal 4.8-10.8 [facility] Comprehensive Metabolic Pane tina 01-30-2018 Albumin mass conc 3.9 g/dL Normal 3.9-4.9 [facility] ALP enzyme act/vol 137 U/L Critically high 40-130 [facility] ALT enzyme act/vol 15 U/L Normal 0-33 [facility] Comment on above: Result Comment: Spec imen hemolysis has exceeded the interference as definedby [facility]. Result may be affected. Suggest recollection ifclinically indicated. Anion gap 3 molar conc 16 mmol/L Critically high 7-13 [facility] AST enzyme act/vol 18 U/L Normal 0-35 [facility] Comment on above: Result Comment: Spec imen hemolysis has exceeded the interference as definedby [facility]. Value may be falsely increased. Suggestrecollection if clinically indicated. Bilirubin mass conc mg/dL Normal 0.0-1.2 [facility] Calcium mass conc 9.5 mg/dL Normal 8.6-10.2 [facility] Chloride molar conc 106 mmol/L Normal 98-107 [facility] CO2 molar conc 19 mmol/L Low 22-29 [facility] Creatinine mass conc 0.87 mg/dL Normal 0.50-0.90 [facility] GFR/1.73 sq M predicted among blacks MDRD vol rate/area (S/P/Bld) mL/min/{1.73_m2} Normal >60 [facility] Comment on above: Result Comment: >60 mL/min/1.73m2 EGFR, calc. for ages 18 and older using theMDRD formula (not corrected for weight), is valid for stablerenal function. GFR/1.73 sq M.predicted MDRD vol rate/area mL/min/{1.73_m2} Normal >60 [facility] Comment on above: Result Comment: >60 mL/min/1.73m2 EGFR, calc. for ages 18 and older using theMDRD formula (not corrected for weight), is valid for stablerenal function. Globulin Calculated mass conc (S) 3.5 g/dL Normal 2.3-3.5 [facility] Glucose mass conc 177 mg/dL Critically high 74-109 [facility] Potassium molar conc 4.0 mmol/L Normal 3.5-5.1 [facility] Comment on above: Result Comment: Spec imen hemolysis has exceeded the interference as definedby [facility]. Value may be falsely increased. Suggestrecollection if clinically indicated. Protein mass conc 7.4 g/dL Normal 6.4-8.1 [facility] Sodium molar conc 141 mmol/L Normal 132-144 [facility] Urea nitrogen mass conc 15 mg/dL Normal 6-20 [facility] Urinalysis, reflex to micros copicon 01-30-2018 Bilirubin Ql (U) Negative Normal Negative [facility] Color Nom (U) Yellow Normal Straw/Otter Tail [facility] Glucose Ql (U) Negative Normal Negative [facility] Hemoglobin Test strip Ql (U) Negative Normal Negative [facility] Ketones Ql (U) Negative Normal Negative [facility] Leukocyte esterase Test strip Ql (U) Negative Normal Negative [facility] Nitrite Test strip Ql (U) Negative Normal Negative [facility] pH Test strip (U) 5.0 [pH] Normal 5.0-9.0 [facility] Protein Test strip Ql (U) Negative Normal Negative [facility] Specific gravity Relative Density (U) 1.025 Normal 1.005-1.03 [facility] Urobilinogen Test strip Qn (U) 0.2 {Kieran'U}/dL Normal < 2.0 [facility] Clarity Nom (U) Clear Normal Clear [facility] XR ACUTE ABD SERIES CHEST 1 VWon [...] Hola Alexandra MD 01/30/18 Final result Normal [facility] Surgical Specimenon 01-11-20 Surgical Specimen Invalid Interpretation Code [facility] Comment on above: Result Comment: [place] [id number] [phone] SURGICAL PATHOLOGY REPORTPatient Name: JENNIFER GATES Accession No: [id number] Age Sex: 1960 Location: [facility] No: [id number] Collected: 01/10/2018[facility] Rec No: [id number] Received: 01/11/2018Attend Phys: FELIPA SHORT Completed: 01/12/2018Perform [...] greatest dimension. Filtered, in toto, onecassette. OTTO/DEMARCUST: [id number] HOUSE M.D. 01/12/2018 Electronically signed out by Page 1 of 1 CBC With Platelet and Differ entialon 12-19-2017 Basophils #/vol (Bld) 0.1 10*3/uL Normal 0.0-0.2 [facility] Basophils/100 WBC (Bld) 0.6 % Normal [facility] Eosinophils #/vol (Bld) 0.1 10*3/uL Normal 0.0-0.7 [facility] Eosinophils/100 WBC (Bld) 1.4 % Normal [facility] Erythrocyte distribution width Ratio (RBC) 13.8 % Normal 11.5-14.5 [facility] Hematocrit Volume Fraction (Bld) 40.1 % Normal 37.0-47.0 [facility] Hemoglobin mass conc (Bld) 13.4 g/dL Normal 12.0-16.0 [facility] Lymphocytes #/vol (Bld) 2.7 10*3/uL Normal 1.0-4.8 [facility] Lymphocytes/100 WBC (Bld) 29.4 % Normal [facility] MCH Entitic mass (RBC) 29.8 pg Normal 27.0-31.3 [facility] MCHC mass conc (RBC) 33.5 % Normal 33.0-37.0 [facility] MCV Entitic volume (RBC) 89.1 fL Normal 82.0-100.0 [facility] Monocytes #/vol (Bld) 0.6 10*3/uL Normal 0.2-0.8 [facility] Monocytes/100 WBC (Bld) 6.6 % Normal [facility] Neutrophils #/vol (Bld) 5.7 10*3/uL Normal 1.4-6.5 [facility] Neutrophils/100 WBC (Bld) 62.0 % Normal [facility] Platelets #/vol (Bld) 214 10*3/uL Normal 130-400 [facility] RBC #/vol (Bld) 4.50 10*6/uL Normal 4.20-5.40 [facility] WBC #/vol (Bld) 9.3 10*3/uL Normal 4.8-10.8 [facility] CT ABDOMEN PELVIS WO CONTRAS Ton 12-19-2017 [...] Juan Aguayo MD 12/19/17 Final result Normal [facility] Comprehensive Metabolic Pane tina 12-19-2017 Albumin mass conc 4.0 g/dL Normal 3.9-4.9 [facility] ALP enzyme act/vol 129 U/L Normal 40-130 [facility] Comment on above: Result Comment: Spec imen hemolysis has exceeded the interference as defined by [facility]. Value may be falsely decreased. Suggest recollection if clinically indicated. ALT enzyme act/vol 18 U/L Normal 0-33 [facility] Comment on above: Result Comment: Spec imen hemolysis has exceeded the interference as defined by [facility]. Result may be affected. Suggest recollection if clinically indicated. Anion gap molar conc 13 mmol/L Normal 7-13 [facility] AST enzyme act/vol 25 U/L Normal 0-35 [facility] Comment on above: Result Comment: Spec imen hemolysis has exceeded the interference as defined by [facility]. Value may be falsely increased. Suggest recollection if clinically indicated. Bilirubin mass conc mg/dL Normal 0.0-1.2 [facility] Calcium mass conc 9.1 mg/dL Normal 8.6-10.2 [facility] Chloride molar conc 108 mmol/L Critically high 98-107 [facility] CO2 molar conc 20 mmol/L Low 22-29 [facility] Creatinine mass conc 0.81 mg/dL Normal 0.50-0.90 [facility] GFR/1.73 sq M predicted among blacks MDRD vol rate/area (S/P/Bld) mL/min/{1.73_m2} Normal >60 [facility] Comment on above: Result Comment: >60 mL/min/1.73m2 EGFR, calc. for ages 18 and older using the MDRD formula (not corrected for weight), is valid for stable renal function. GFR/1.73 sq M.predicted MDRD vol rate/area mL/min/{1.73_m2} Normal >60 [facility] Comment on above: Result Comment: >60 mL/min/1.73m2 EGFR, calc. for ages 18 and older using the MDRD formula (not corrected for weight), is valid for stable renal function. Globulin mass conc (S) 3.6 g/dL Critically high 2.3-3.5 [facility] Glucose mass conc 80 mg/dL Normal 74-109 [facility] Potassium molar conc 4.4 mmol/L Normal 3.5-5.1 [facility] Comment on above: Result Comment: Spec imen hemolysis has exceeded the interference as defined by [facility]. Value may be falsely increased. Suggest recollection if clinically indicated. Protein mass conc 7.6 g/dL Normal 6.4-8.1 [facility] Sodium molar conc 141 mmol/L Normal 132-144 [facility] Urea nitrogen mass conc 12 mg/dL Normal 6-20 [facility] Rejection Notificationon Rejected Test CBCWD Normal [facility] Urinalysis, reflex to micros copicon 12-19-2017 Bilirubin Ql (U) Negative Normal Negative [facility] Color Nom (U) Yellow Normal Straw/Otter Tail [facility] Glucose Ql (U) Negative Normal Negative [facility] Hemoglobin Ql (U) Negative Normal Negative [facility] Ketones Ql (U) Negative Normal Negative [facility] Leukocyte esterase Test strip Ql (U) Negative Normal Negative [facility] Nitrite Ql (U) Negative Normal Negative [facility] pH (U) 6.5 [pH] Normal 5.0-9.0 [facility] Protein Ql (U) Negative Normal Negative [facility] Specific gravity Relative Density (U) 1.022 Normal 1.005-1.03 [facility] Urobilinogen Qn (U) 0.2 {Kieran'U}/dL Normal < 2.0 [facility] Clarity Nom (U) Clear Normal Clear [facility] CALVIN DIGITAL SCREEN W OR WO C [...] IS VERY IMPORTANT TO YOUR HEALTH. THE [employer] GUIDELINES RECOMMEND THAT WOMEN 40 YEARS OF AGE AND OLDER SHOULD HAVE A MAMMOGRAM EVERY YEAR. A REMINDER LETTER WILL BE SENT AT THE APPROPRIATE TIME. Interpreted by: Negrita Aldridge MD Signed by: Negrita Aldridge MD 11/21/17 Final result Normal [facility] MRI BRAIN W WO CONTRASTon MRI BRAIN W WO CONTRAST MRI BRAIN WITH AND WITHOUT CONTRAST: COMPARISONS: NONE CLINICAL HISTORY: HISTORY OF TRAUMA IN 2012. FREQUENT FALLS. HEADACHES, SLURRED SPEECH, COGNITIVE IMPAIRMENT. DIZZINESS. TECHNIQUE: Multiplanar, multi-sequence MRI was performed on a 1.[employer] magnet. 20 mL of of ProHance contrast [...] Negrita Aldridge MD 09/14/17 Final result Normal [facility] CBC With Platelet and Differ entialon 09-09-2017 Basophils #/vol (Bld) 0.1 10*3/uL Normal 0.0-0.2 [facility] Basophils/100 WBC (Bld) 0.6 % Normal [facility] Eosinophils #/vol (Bld) 0.2 10*3/uL Normal 0.0-0.7 [facility] Eosinophils/100 WBC (Bld) 2.1 % Normal [facility] Erythrocyte distribution width Ratio (RBC) 14.3 % Normal 11.5-14.5 [facility] Hematocrit Volume Fraction (Bld) 42.0 % Normal 37.0-47.0 [facility] [facility] Hem[facility] mass conc (Bld) 14.4 g/dL Normal 12.0-16.0 [facility] Lymphocytes #/vol (Bld) 3.5 10*3/uL Normal 1.0-4.8 [facility] Lymphocytes/100 WBC (Bld) 34.2 % Normal [facility] MCH Entitic mass (RBC) 30.2 pg Normal 27.0-31.3 [facility] MCHC mass conc (RBC) 34.1 % Normal 33.0-37.0 [facility] MCV Entitic volume (RBC) 88.5 fL Normal 82.0-100.0 [facility] Monocytes #/vol (Bld) 0.7 10*3/uL Normal 0.2-0.8 [facility] Monocytes/100 WBC (Bld) 7.3 % Normal [facility] Neutrophils #/vol (Bld) 5.7 10*3/uL Normal 1.4-6.5 [facility] Neutrophils/100 WBC (Bld) 55.8 % Normal [facility] Platelets #/vol (Bld) 226 10*3/uL Normal 130-400 [facility] RBC #/vol (Bld) 4.75 10*6/uL Normal 4.20-5.40 [facility] WBC #/vol (Bld) 10.3 10*3/uL Normal 4.8-10.8 [facility] CT HEAD WO CONTRASTon 2017 CT HEAD [...] Imtiaz Aceves MD 09/09/17 Final result Normal [facility] Comprehensive Metabolic Pane tina 09-09-2017 Albumin mass conc 4.0 g/dL Normal 3.9-4.9 [facility] ALP enzyme act/vol 128 U/L Normal 40-130 [facility] Comment on above: Result Comment: Spec imen hemolysis has exceeded the interference as defined by [facility]. Value may be falsely decreased. Suggest recollection if clinically indicated. ALT enzyme act/vol 21 U/L Normal 0-33 [facility] Comment on above: Result Comment: Spec imen hemolysis has exceeded the interference as defined by [facility]. Result may be affected. Suggest recollection if clinically indicated. Anion gap molar conc 17 mmol/L Critically high 7-13 [facility] AST enzyme act/vol 30 U/L Normal 0-35 [facility] Comment on above: Result Comment: Spec imen hemolysis has exceeded the interference as defined by Pric[facility]. Value may be falsely increased. Suggest recollection if clinically indicated. Bilirubin mass conc 0.6 mg/dL Normal 0.0-1.2 [facility] Calcium mass conc 8.8 mg/dL Normal 8.6-10.2 [facility] Chloride molar conc 101 mmol/L Normal 98-107 [facility] CO2 molar conc 22 mmol/L Normal 22-29 [facility] Creatinine mass conc 0.81 mg/dL Normal 0.50-0.90 [facility] GFR/1.73 sq M predicted among blacks MDRD vol rate/area (S/P/Bld) mL/min/{1.73_m2} Normal >60 [facility] Comment on above: Result Comment: >60 mL/min/1.73m2 EGFR, calc. for ages 18 and older using the MDRD formula (not corrected for weight), is valid for stable renal function. GFR/1.73 sq M.predicted MDRD vol rate/area mL/min/{1.73_m2} Normal >60 [facility] Comment on above: Result Comment: >60 mL/min/1.73m2 EGFR, calc. for ages 18 and older using the MDRD formula (not corrected for weight), is valid for stable renal function. Globulin mass conc (S) 3.4 g/dL Normal 2.3-3.5 [facility] Glucose mass conc 172 mg/dL Critically high 74-109 [facility] Potassium molar conc 4.1 mmol/L Normal 3.5-5.1 [facility] Comment on above: Result Comment: Spec imen hemolysis has exceeded the interference as defined by [facility]. Value may be falsely increased. Suggest recollection if clinically indicated. Protein mass conc 7.4 g/dL Normal 6.4-8.1 [facility] Sodium molar conc 140 mmol/L Normal 132-144 [facility] Urea nitrogen mass conc 9 mg/dL Normal 6-20 [facility] Magnesiumon 09-09-2017 Magnesium mass conc 2.1 mg/dL Normal 1.7-2.3 [facility] Troponinon 09-09-2017 Troponin I.cardiac mass conc ng/mL Normal 0.000-0.01 [facility] Comment on above: Result Comment: Meth odology by Troponin T. Urinalysis, reflex to micros copicon 07-18-2017 Bilirubin Ql (U) Negative Normal Negative [facility] Clarity Nom (U) Clear Normal Clear [facility] Color Nom (U) Yellow Normal Straw/Otter Tail [facility] Glucose Ql (U) Negative Normal Negative [facility] Hemoglobin Ql (U) Negative Normal Negative [facility] Ketones Ql (U) Negative Normal Negative [facility] Leukocyte esterase Test strip Ql (U) Negative Normal Negative [facility] Nitrite Ql (U) Negative Normal Negative [facility] pH (U) 6.5 [pH] Normal 5.0-9.0 [facility] Protein Ql (U) Negative Normal Negative [facility] Specific gravity Relative Density (U) 1.020 Normal 1.005-1.03 [facility] Urobilinogen Qn (U) 0.2 {Kieran'U}/dL Normal < 2.0 [facility] XR LUMBAR SPINE (MIN 4 VIEWS )on [...] Juan Aguayo MD 07/18/17 Final result Normal [facility] VITAMIN Don 10-14-2016 VITAMIN D 25.3 ng/mL Low 30.0-100.0 [facility] Comment on above: Order Comment: adive d pt we only do H pylori for breathe or fecal. Gave her info AND shesaid she will advised the dr 10/10/2016 11:36 Result Comment: (20- 30 ng/mL) InsufficiencyThis assay accurately quantifies the sum of vitamin D3, 25-Hydroxy andvitamin D2, 25-Hyroxy. Thyroxine Freeon 10-11-2016 Thyroxine Free 0.89 ng/dL Low 0.93-1.70 [facility] Comment on above: Order Comment: adive d pt we only do H pylori for breathe or fecal. Gave her info AND shesaid she will advised the dr 10/10/2016 11:36 TSH w/out Reflexon 7 Thyroid stimulating hormone (TSH) 2.590 uIU/mL Normal 0.270-4.20 [facility] Comment on above: Order Comment: adive d pt we only do H pylori for breathe or fecal. Gave her info AND shesaid she will advised the dr 10/10/2016 11:36 Uric Acidon 10-10-2016 Urate 5.1 mg/dL Normal 2.4-5.7 [facility] Comment on above: Order Comment: adive d pt we only do H pylori for breathe or fecal. Gave her info AND shesaid she will advised the dr 10/10/2016 11:36 Vitamin B12 and Folateon Cobalamins (Vitamin B12) 224 pg/mL Normal 211-946 [facility] Comment on above: Order Comment: adive d pt we only do H pylori for breathe or fecal. Gave her info AND shesaid she will advised the dr 10/10/2016 11:36 Folate 11.6 ng/mL Normal 7.3-26.1 [facility] Comment on above: Order Comment: adive d [...] 57 mm[Hg] Zachery Toussaint MD Work Phone: [facility] 01-18-2024 09:48-0500 Heart rate 71 /min Zachery Toussaint MD Work Phone: [facility] 01-18-2024 09:48-0500 Respiratory rate 16 /min Zachery Toussaint MD Work Phone: [facility] 01-18-2024 09:48-0500 SaO2% (BldA) [Mass fraction] 97 % Zachery Toussaint MD Work Phone: [facility] 01-18-2024 09:48-0500 Systolic blood pressure 108 mm[Hg] Zachery Toussaint MD Work Phone: [facility] 01-18-2024 08:43-0500 Body mass index (BMI) [Ratio] 42.37 kg/m2 Zachery Toussaint MD Work Phone: [facility] 01-18-2024 08:43-0500 Body temperature 97.5 [degF] Zachery Toussaint MD Work Phone: [facility] 01-18-2024 08:43-0500 Body weight 98.4 kg Zachery Toussaint MD Work Phone: [facility] 01-16-2024 13:00-0500 Diastolic blood pressure 75 mm[Hg] Ruby Golias PT Work Phone: [facility] 01-16-2024 13:00-0500 Heart rate 77 /min Ruby Golias PT Work Phone: [facility] 01-16-2024 13:00-0500 Systolic blood pressure 123 mm[Hg] Ruby Golias PT Work Phone: [facility] 01-08-2024 14:44-0400 Body height 152.4 cm Zachery Toussaint MD Work Phone: [facility] 01-08-2024 14:44-0400 Body mass index (BMI) [Ratio] 42.38 kg/m2 Zachery Toussaint MD Work Phone: [facility] 01-08-2024 14:44-0400 Body weight 98.43 kg Zachery Toussaint MD Work Phone: [facility] 01-08-2024 14:44-0400 Diastolic blood pressure 72 mm[Hg] Zachery Toussaint MD Work Phone: [facility] 01-08-2024 14:44-0400 Heart rate 80 /min Zachery Toussaint MD Work Phone: [facility] 01-08-2024 14:44-0400 Respiratory rate 16 /min Zachery Toussaint MD Work Phone: [facility] 01-08-2024 14:44-0400 SaO2% (BldA) [Mass fraction] 97 % Zachery Toussaint MD Work Phone: [facility] 01-08-2024 14:44-0400 Systolic blood pressure 116 mm[Hg] Zachery Toussaint MD Work Phone: [facility] 01-08-2024 10:57-0400 Body mass index (BMI) [Ratio] 38.95 kg/m2 Marianna Stef HOME SERVICE DEMONSTRATOR.[employer] Work Phone: [facility] 01-08-2024 10:57-0400 Body weight 96.6 kg Marianna AbrahamStef HOME SERVICE DEMONSTRATOR.[employer] Work Phone: [facility] 01-08-2024 10:57-0400 Diastolic blood pressure 82 mm[Hg] Marianna Stef HOME SERVICE DEMONSTRATOR.[employer] Work Phone: [facility] 01-08-2024 10:57-0400 Heart rate 76 /min Marianna EllisStef HOME SERVICE DEMONSTRATOR.[employer] Work Phone: [facility] 01-08-2024 10:57-0400 Respiratory rate 14 /min Marianna Stef HOME SERVICE DEMONSTRATOR.[employer] Work Phone: [facility] 01-08-2024 10:57-0400 SaO2% (BldA) [Mass fraction] 96 % Marianna EllisStef HOME SERVICE DEMONSTRATOR.[employer] Work Phone: [facility] 01-08-2024 10:57-0400 Systolic blood pressure 124 mm[Hg] Marianna EllisStef HOME SERVICE DEMONSTRATOR.[employer] Work Phone: [facility] 12-27-2023 14:58-0400 Body mass index (BMI) [Ratio] 39.35 kg/m2 Terrence Flores HOME SERVICE DEMONSTRATOR.[employer] Work Phone: [facility] 12-27-2023 14:58-0400 Body weight 97.6 kg Terrence Flores HOME SERVICE DEMONSTRATOR.[employer] Work Phone: [facility] 12-27-2023 14:58-0400 Diastolic blood pressure 76 mm[Hg] Terrence Capitola HOME SERVICE DEMONSTRATOR.[employer] Work Phone: [facility] 12-27-2023 14:58-0400 Heart rate 90 /min Terrence Capitola HOME SERVICE DEMONSTRATOR.[employer] Work Phone: [facility] 12-27-2023 14:58-0400 SaO2% (BldA) [Mass fraction] 98 % Terrence Capitola HOME SERVICE DEMONSTRATOR.[employer] Work Phone: [facility] 12-27-2023 14:58-0400 Systolic blood pressure 116 mm[Hg] Terrence Capitola HOME SERVICE DEMONSTRATOR.[employer] Work Phone: [facility] 12-01-2023 09:49-0400 Body mass index (BMI) [Ratio] 39.23 kg/m2 Eddie Rodríguez HOME SERVICE DEMONSTRATOR.[employer]OD [employer]EVERAGE ASSISTANT MANAGER Work Phone: [facility] 12-01-2023 09:49-0400 Body weight 97.3 kg Eddie Rodríguez HOME SERVICE DEMONSTRATOR.FOOD AND BEVERAGE ASSISTANT MANAGER Work Phone: [facility] 12-01-2023 09:49-0400 Diastolic blood pressure 83 mm[Hg] Eddie Rodríguez HOME SERVICE DEMONSTRATOR.FOOD AND BEVERAGE ASSISTANT MANAGER Work Phone: [facility] 12-01-2023 09:49-0400 Heart rate 71 /min Eddie Rodríguez HOME SERVICE DEMONSTRATOR.FOOD AND BEVERAGE ASSISTANT MANAGER Work Phone: [facility] 12-01-2023 09:49-0400 Respiratory rate 16 /min Eddie Rodríguez HOME SERVICE DEMONSTRATOR.FOOD AND BEVERAGE ASSISTANT MANAGER Work Phone: [facility] 12-01-2023 09:49-0400 Systolic blood pressure 135 mm[Hg] Eddie Rodríguez HOME SERVICE DEMONSTRATOR.FOOD AND BEVERAGE ASSISTANT MANAGER Work Phone: [facility] 09-13-2023 08:52-0400 Diastolic blood pressure 64 mm[Hg] Zachery Toussaint MD Work Phone: [facility] 09-13-2023 08:52-0400 Respiratory rate 16 /min Zachery Toussaint MD Work Phone: [facility] 09-13-2023 08:52-0400 SaO2% (BldA) [Mass fraction] 98 % Zachery Toussaint MD Work Phone: [facility] 09-13-2023 08:52-0400 Systolic blood pressure 92 mm[Hg] Zachery Toussaint MD Work Phone: [facility] 09-13-2023 08:42-0400 Heart rate 73 /min Zachery Toussaint MD Work Phone: [facility] 09-13-2023 07:15-0400 Body temperature 97.59 [degF] Zachery Toussaint MD Work Phone: [facility] 08-23-2023 17:01-0400 Body height 157.5 cm Marianna Yap APRN.[employer] Work Phone: [facility] 08-23-2023 17:01-0400 Body mass index (BMI) [Ratio] 39.14 kg/m2 Marianna Yap APRN.[employer] Work Phone: [facility] 08-23-2023 17:01-0400 Body temperature 98.91 [degF] Marianna Yap APRN.[employer] Work Phone: [facility] 08-23-2023 17:01-0400 Body weight 97.07 kg Marianna Yap APRN.[employer] Work Phone: [facility] 08-23-2023 17:01-0400 Diastolic blood pressure 74 mm[Hg] Marianna Yap APRN.[employer] Work Phone: [facility] 08-23-2023 17:01-0400 Heart rate 86 /min Marianna Yap APRN.[employer] Work Phone: [facility] 08-23-2023 17:01-0400 Respiratory rate 14 /min Marianna Yap APRN.[employer] Work Phone: [facility] 08-23-2023 17:01-0400 SaO2% (BldA) [Mass fraction] 98 % Marianna Yap APRN.[employer] Work Phone: [facility] 08-23-2023 17:01-0400 Systolic blood pressure 134 mm[Hg] Marianna Yap APRN.[employer] Work Phone: [facility] 02-21-2023 12:17-0500 Body temperature 96.98 [degF] MIKAEL PULIDO MD [facility] 02-21-2023 12:17-0500 Body weight 100.3 kg MIKAEL PULIDO MD [facility] 02-21-2023 12:17-0500 Diastolic Blood Pressure Non-Invasive 58 mm[Hg] MIKAEL PULIDO MD [facility] 02-21-2023 12:17-0500 Heart rate 73 /min MIKAEL PULIDO MD [facility] 02-21-2023 12:17-0500 Respiratory rate 16 /min MIKAEL PULIDO MD [facility] 02-21-2023 12:17-0500 Systolic Blood Pressure Non-Invasive 158 mm[Hg] MIKAEL PULIDO MD [facility] 01-26-2023 16:11-0500 Diastolic blood pressure 89 mm[Hg] [facility] 01-26-2023 16:11-0500 Heart rate 58 /min [facility] 01-26-2023 16:11-0500 Respiratory rate 19 /min [facility] 01-26-2023 16:11-0500 SaO2% (BldA) [Mass fraction] 97 % [facility] 01-26-2023 16:11-0500 Systolic blood pressure 124 mm[Hg] [facility] 01-26-2023 11:20-0500 Body height 152.4 cm [facility] 01-26-2023 11:20-0500 Body mass index (BMI) [Ratio] 42.4 kg/m2 [facility] 01-26-2023 11:20-0500 Body temperature 96.8 [degF] [facility] 01-26-2023 11:20-0500 Body weight 98.5 kg [facility] 12-15-2022 10:07-0400 Body weight 97.07 kg Meredith Littleton HOME SERVICE DEMONSTRATOR.[employer] Work Phone: [facility] 12-15-2022 10:07-0400 Diastolic blood pressure 72 mm[Hg] Meredith Jeff HOME SERVICE DEMONSTRATOR.[employer] Work Phone: [facility] 12-15-2022 10:07-0400 Systolic blood pressure 106 mm[Hg] Meredith Jeff HOME SERVICE DEMONSTRATOR.[employer] Work Phone: [facility] 11-28-2022 11:00-0400 Body temperature 97.5 [degF] Marianna Older HOME SERVICE DEMONSTRATOR.[employer] Work Phone: [facility] 11-28-2022 11:00-0400 Body weight 95.71 kg Marianna Older HOME SERVICE DEMONSTRATOR.[employer] Work Phone: [facility] 11-28-2022 11:00-0400 Diastolic blood pressure 56 mm[Hg] Marianna Older HOME SERVICE DEMONSTRATOR.[employer] Work Phone: [facility] 11-28-2022 11:00-0400 Heart rate 76 /min Marianna Older HOME SERVICE DEMONSTRATOR.[employer] Work Phone: [facility] 11-28-2022 11:00-0400 Systolic blood pressure 105 mm[Hg] Marianna Older HOME SERVICE DEMONSTRATOR.[employer] Work Phone: [facility] 11-18-2022 13:12-0400 Body weight 97.07 kg Marianna Older HOME SERVICE DEMONSTRATOR.[employer] Work Phone: [facility] 11-18-2022 13:12-0400 Diastolic blood pressure 64 mm[Hg] Marianna Older HOME SERVICE DEMONSTRATOR.[employer] Work Phone: [facility] 11-18-2022 13:12-0400 Heart rate 81 /min Marianna Older HOME SERVICE DEMONSTRATOR.[employer] Work Phone: [facility] 11-18-2022 13:12-0400 Respiratory rate 16 /min Marianna Older HOME SERVICE DEMONSTRATOR.[employer] Work Phone: [facility] 11-18-2022 13:12-0400 SaO2% (BldA) [Mass fraction] 97 % Marianna Older HOME SERVICE DEMONSTRATOR.[employer] Work Phone: [facility] 11-18-2022 13:12-0400 Systolic blood pressure 110 mm[Hg] Marianna Older HOME SERVICE DEMONSTRATOR.[employer] Work Phone: [facility] 05-31-2022 10:14-0400 Body temperature 98.4 [degF] Leonid Rice MD Work Phone: [facility] 05-31-2022 10:14-0400 Body weight 97.07 kg Leonid Rice MD Work Phone: [facility] 05-31-2022 10:14-0400 Diastolic blood pressure 80 mm[Hg] Leonid Rice MD Work Phone: [facility] 05-31-2022 10:14-0400 Heart rate 92 /min Leonid Rice MD Work Phone: [facility] 05-31-2022 10:14-0400 Respiratory rate 18 /min Leonid Rice MD Work Phone: [facility] 05-31-2022 10:14-0400 Systolic blood pressure 120 mm[Hg] Leonid Rice MD Work Phone: [facility] 02-16-2022 08:02-0500 Body height 157.5 cm Fabiennesamreen Chenf PA-C Work Phone: [facility] 02-16-2022 08:02-0500 Body temperature 97.59 [degF] Fabienne St. Bernice PA-C Work Phone: [facility] 02-16-2022 08:02-0500 Body weight 100.25 kg Fabienne Lee PA-C Work Phone: [facility] 02-16-2022 08:02-0500 Diastolic blood pressure 82 mm[Hg] Fabienne Lee PA-C Work Phone: [facility] 02-16-2022 08:02-0500 Heart rate 113 /min Fabienne Lee PA-C Work Phone: [facility] 02-16-2022 08:02-0500 SaO2% (BldA) [Mass fraction] 95 % Fabienne Chenf PA-C Work Phone: [facility] 02-16-2022 08:02-0500 Systolic blood pressure 108 mm[Hg] Fabienne Chenf PA-C Work Phone: [facility] 02-15-2022 11:03-0500 Body weight 100.25 kg Arcelia Garcia APRN.[employer] Work Phone: [facility] 02-15-2022 11:03-0500 Diastolic blood pressure 69 mm[Hg] Arcelia Garcia APRN.[employer] Work Phone: [facility] 02-15-2022 11:03-0500 Heart rate 64 /min Arcelia Garcia APRN.[employer] Work Phone: [facility] 02-15-2022 11:03-0500 SaO2% (BldA) [Mass fraction] 98 % Arcelia Garcia APRN.[employer] Work Phone: [facility] 02-15-2022 11:03-0500 Systolic blood pressure 113 mm[Hg] Arcelia Garcia APRN.[employer] Work Phone: [facility] 02-14-2022 18:33-0500 Body temperature 98.1 [degF] [facility] Work Phone: 02-14-2022 18:33-0500 Diastolic blood pressure 74 mm[Hg] [facility] Work Phone: 02-14-2022 18:33-0500 Heart rate 74 /min [facility] Work Phone: 02-14-2022 18:33-0500 Respiratory rate 15 /min [facility] Work Phone: 02-14-2022 18:33-0500 SaO2% (BldA) [Mass fraction] 99 % [facility] Work Phone: 02-14-2022 18:33-0500 Systolic blood pressure 132 mm[Hg] [facility] Work Phone: 02-14-2022 15:26-0500 Body height 152.4 cm [facility] Work Phone: 02-14-2022 15:26-0500 Body mass index (BMI) [Ratio] 43.1 kg/m2 [facility] Work Phone: 02-14-2022 15:26-0500 Body weight 100.24 kg [facility] Work Phone: 02-11-2022 16:49-0500 Body weight 100.2 kg Leonid Rice MD Work Phone: [facility] 02-11-2022 16:49-0500 Diastolic blood pressure 86 mm[Hg] Leonid Rice MD Work Phone: [facility] 02-11-2022 16:49-0500 Heart rate 80 /min Leonid Rice MD Work Phone: [facility] 02-11-2022 16:49-0500 Respiratory rate 16 /min Leonid Rice MD Work Phone: [facility] 02-11-2022 16:49-0500 SaO2% (BldA) [Mass fraction] 97 % Leonid Rice MD Work Phone: [facility] 02-11-2022 16:49-0500 Systolic blood pressure 128 mm[Hg] Leonid Rice MD Work Phone: [facility] 12-31-2021 13:31-0400 Body weight 100.25 kg Marianna Older HOME SERVICE DEMONSTRATOR.[employer] Work Phone: [facility] 12-31-2021 13:31-0400 Diastolic blood pressure 72 mm[Hg] Marianna Older HOME SERVICE DEMONSTRATOR.[employer] Work Phone: [facility] 12-31-2021 13:31-0400 Heart rate 92 /min Marianna Older HOME SERVICE DEMONSTRATOR.[employer] Work Phone: [facility] 12-31-2021 13:31-0400 Respiratory rate 16 /min Marianna Older HOME SERVICE DEMONSTRATOR.[employer] Work Phone: [facility] 12-31-2021 13:31-0400 Systolic blood pressure 106 mm[Hg] Marianna Older HOME SERVICE DEMONSTRATOR.[employer] Work Phone: [facility] 11-29-2021 14:05-0400 Body weight 99.34 kg Marianna Older HOME SERVICE DEMONSTRATOR.[employer] Work Phone: [facility] 11-29-2021 14:05-0400 Diastolic blood pressure 80 mm[Hg] Marianna Older HOME SERVICE DEMONSTRATOR.[employer] Work Phone: [facility] 11-29-2021 14:05-0400 Heart rate 80 /min Marianna Older HOME SERVICE DEMONSTRATOR.[employer] Work Phone: [facility] 11-29-2021 14:05-0400 Respiratory rate 16 /min Marianna Older HOME SERVICE DEMONSTRATOR.[employer] Work Phone: [facility] 11-29-2021 14:05-0400 Systolic blood pressure 142 mm[Hg] Marianna Older HOME SERVICE DEMONSTRATOR.[employer] Work Phone: [facility] 11-13-2021 15:23-0400 Body temperature 98.2 [degF] eTrell Joseph MD Work Phone: [facility] 11-13-2021 15:23-0400 Body weight 99.61 kg Terell Joseph MD Work Phone: [facility] 11-13-2021 15:23-0400 Diastolic blood pressure 76 mm[Hg] Terell Joseph MD Work Phone: [facility] 11-13-2021 15:23-0400 Heart rate 73 /min Terell Joseph MD Work Phone: [facility] 11-13-2021 15:23-0400 Respiratory rate 18 /min Terell Joseph MD Work Phone: [facility] 11-13-2021 15:23-0400 SaO2% (BldA) [Mass fraction] 97 % Terell Joseph MD Work Phone: [facility] 11-13-2021 15:23-0400 Systolic blood pressure 146 mm[Hg] Terell Joseph MD Work Phone: [facility] 09-30-2021 13:43-0400 Body temperature 97.7 [degF] Leoind Rice MD Work Phone: [facility] 09-30-2021 13:43-0400 Body weight 95.71 kg Leonid Rice MD Work Phone: [facility] 09-30-2021 13:43-0400 Diastolic blood pressure 78 mm[Hg] Leonid Rice MD Work Phone: [facility] 09-30-2021 13:43-0400 Heart rate 80 /min Leonid Rice MD Work Phone: [facility] 09-30-2021 13:43-0400 Respiratory rate 24 /min Leonid Rice MD Work Phone: [facility] 09-30-2021 13:43-0400 Systolic blood pressure 128 mm[Hg] Leonid Rice MD Work Phone: [facility] Encounters Encounter Date Encounter Type Care Provider Facility Start: 01-18-2024 End: 01-18-2024 ambulatory Zachery Toussaint Facility:[facility] Start: 01-18-2024 End: 01-18-2024 Subsequent hospital visit by physician Zachery Toussaint MD Work Phone: [facility] Comment on above: Epigastric abdominal pain [R10.13] Start: 01-16-2024 End: 01-16-2024 ambulatory Ruby Kirkpatrick PT Work Phone: [facility] Comment on above: Acute medial meniscu s tear of left knee, subsequent encounter (Primary Dx); Chronic pain of left knee; Tear of medial meniscus of left knee, current, unspecified tear type, initial encounter Start: 01-08-2024 End: 01-08-2024 ambulatory Zachery Toussaint Facility:[facility] Start: 01-08-2024 End: 01-08-2024 Patient encounter procedure Marianna Yap APRN.TILE LAYER DRAINAGE Work Phone: Internal Medicine [place] Comment on above: Epigastric abdominal pain (Primary Dx); Nausea; Encounter for immunization; Chronic pain of left knee Epigastric abdominal pain; Nausea Start: 12-27-2023 End: 12-27-2023 Subsequent hospital visit by physician [facility] Radiology Comment on above: Smoker [F17.200] Start: 12-27-2023 End: 12-27-2023 ambulatory UNKNOWN PROVIDER Facility:[facility] Start: 12-27-2023 End: 12-27-2023 Patient encounter procedure Smiley Santosprinceabraham DO Work Phone: Orthopaedics Comment on above: Tear of medial menis cus of left knee, current, unspecified tear type, initial encounter (Primary Dx); Chronic pain of left knee Lung nodule (Primary Dx); Encounter for screening for lung cancer; Smoker Start: 12-05-2023 End: 12-07-2023 Orders Only Arcelia Garcia APRN.TILE LAYER DRAINAGE Work Phone: Pulmonary Medicine Comment on above: Smoker (Primary Dx); Encounter for screening for malignant neoplasm of lung Results Start: 12-01-2023 End: 12-01-2023 Subsequent hospital visit by physician Bessie [facility] Work Phone: Radiology Comment on above: Chronic pain of left knee [M25.562, G89.29] Start: 12-01-2023 End: 12-01-2023 ambulatory LEONID RICE Facility:[facility] Start: 12-01-2023 End: 12-01-2023 Office outpatient visit 25 minutes Eddie Rodríguez APRN.FOOD AND BEVERAGE ASSISTANT MANAGER Work Phone: Internal Medicine [place] Comment on [...] Start: 10-03-2023 End: 10-03-2023 ambulatory LEONID RICE Facility:[facility] Start: 10-03-2023 End: 10-03-2023 Subsequent hospital visit by physician Us [facility] Work Phone: Radiology Comment on above: Abnormal mammogram o f left breast [R92.8] Start: 09-13-2023 End: 09-13-2023 ambulatory Zachery Toussaint Facility:[facility] Start: 09-13-2023 End: 09-13-2023 Subsequent hospital visit by physician Zachery Toussaint MD Work Phone: Ambulatory Surgery Comment on above: Screening for colon cancer [Z12.11] Start: 09-11-2023 Orders Only Leonid gonzalez MD Work Phone: Internal Medicine [place] Comment on above: Abnormal mammogram o f left breast (Primary Dx) Results Start: 08-30-2023 Documentation procedure Mammog mily Coordinator [facility] Department Start: 08-30-2023 Letter encounter Mammography Coordinator [facility] Department Start: 08-30-2023 Telephone encounter Zachery patton MD Work Phone: General Surgery Comment on above: Orders; Patient Ques tion Start: 08-29-2023 End: 08-29-2023 ambulatory LEONID RICE Facility:[facility] Start: 08-29-2023 End: 08-29-2023 Subsequent hospital visit by physician Screen Mammo [facility] Comment on above: Encounter for screen ing mammogram for malignant neoplasm of breast [Z12.31] Start: 08-23-2023 End: 08-23-2023 Patient encounter procedure Marianna Yap APRN.CNP Work Phone: Internal Medicine [place] Comment on above: Type 2 diabetes bear itus without complication, without long- term current use of insulin (HCC) (Primary Dx); Left hand pain; Moderate persistent asthma, unspecified whether complicated; Obesity, Class III, BMI >= 40; Screening for colon cancer; Encounter for immunization Start: 08-23-2023 End: 08-23-2023 ambulatory LEONID RICE Facility:[facility] Start: 07-12-2023 Admission to [facility] Leonid Rice MD Work Phone: Ambulatory Surgery Start: 07-12-2023 ambulatory Leonid gonzalez MD Work Phone: Ambulatory Surgery Start: 06-02-2023 Refill Leonid gonzalez MD Work Phone: Internal Medicine [place] Comment on above: Refill Request Orders (Mammogram or sharee mailed to her home; I verified address as well./) Start: 03-20-2023 End: 03-20-2023 ambulatory LEONID RICE Facility:[facility] Start: 03-02-2023 End: 03-02-2023 ambulatory LEONID RICE Facility:[facility] Start: 02-21-2023 End: 02-21-2023 Emergency department patient visit MIKAEL PULIDO MD Facility:A Start: 02-21-2023 End: 02-21-2023 Emergency department patient visit MIKAEL PULIDO MD [facility] Start: 01-26-2023 ambulatory Leonid gonzalez MD Work Phone: Internal Medicine [place] Comment on above: Chest Pain Start: 01-26-2023 End: 01-26-2023 Emergency department patient visit Leonid Rice Facility:[facility] Start: 01-26-2023 End: 01-26-2023 Emergency department patient visit [facility] Work Phone: Start: 12-15-2022 End: 12-15-2022 Patient encounter procedure Meredith Jimenez APRN.CNP Work Phone: OB/Gynecology Comment on above: Skin yeast infection (Primary Dx) Start: 12-02-2022 Refill Dana hickman MD Work Phone: Pulmonary Medicine Comment on above: Refill Request Start: 11-28-2022 End: 11-28-2022 Patient encounter procedure Marianna Older HOME SERVICE DEMONSTRATOR.TILE LAYER DRAINAGE Work Phone: [facility] [place] Comment on above: Left hand pain (Prim cheng Dx); Need for influenza vaccination Start: 11-23-2022 Telephone encounter Marianna Older HOME SERVICE DEMONSTRATOR.TILE LAYER DRAINAGE Work Phone: Internal Medicine [place] Comment on above: Results Start: 11-18-2022 End: 11-18-2022 Subsequent hospital visit by physician Xr [facility] [place] Work Phone: Radiology Comment on above: Left hand pain [M79. 642] Start: 11-18-2022 End: 11-18-2022 Patient encounter procedure Marianna Older HOME SERVICE DEMONSTRATOR.TILE LAYER DRAINAGE Work Phone: Internal Medicine [place] Comment on above: Left hand pain (Prim cheng Dx) Start: 07-27-2022 Telephone encounter Marianna Older HOME SERVICE DEMONSTRATOR.TILE LAYER DRAINAGE Work Phone: Internal Medicine [place] Comment on above: Results Start: 06-13-2022 Telephone encounter Leonid mchugh MD Work Phone: Internal Medicine [place] Comment on above: Results Start: 06-06-2022 Documentation procedure Mammog mily Coordinator [facility] Start: 06-06-2022 Letter encounter Mammography Coordinator [facility] Department Start: 06-03-2022 End: 06-03-2022 Subsequent hospital visit by physician Screen Mammo [facility] Comment on above: Encounter for screen ing mammogram for malignant neoplasm of breast [Z12.31] Start: 05-31-2022 End: 05-31-2022 Subsequent hospital visit by physician Bessie [facility] Work Phone: Radiology Comment on above: Canceled (CC cx: Err or or Template Change) Chronic left shoulde r pain [M25.512, G89.29] Start: 05-31-2022 End: 05-31-2022 Patient encounter procedure Leonid Rice MD Work Phone: Internal Medicine [place] Comment on above: Chronic left shoulde r pain (Primary Dx); Asthma with COPD (HCC); Type 2 diabetes mellitus without complication, without long-term current use of insulin (HCC); Encounter for screening mammogram for malignant neoplasm of breast; Constipation, unspecified constipation type Start: 05-25-2022 Refill Leonid gonzalez MD Work Phone: Internal Medicine [place] Comment on above: Refill Request Start: 04-06-2022 Telephone encounter Leonid mchugh MD Work Phone: Internal Medicine [place] Comment on above: Cpap Form; Lat OV no te Start: 04-01-2022 Telephone encounter Arcelia Garcia APRN.TILE LAYER DRAINAGE Work Phone: Pulmonary Medicine Comment on above: Results (LDCT ) Start: 03-31-2022 End: 03-31-2022 Subsequent hospital visit by physician [facility] Radiology Comment on above: Smoker [F17.200] Start: 02-16-2022 End: 02-16-2022 Patient encounter procedure Fabienne Howard PA-C Work Phone: General Surgery Comment on above: Abscess of skin of a bdomen (Primary Dx) Start: 02-15-2022 End: 02-15-2022 Patient encounter procedure Arcelia Garcia APRN.TILE LAYER DRAINAGE Work Phone: Pulmonary Medicine Comment on above: Encounter for screen ing for lung cancer (Primary Dx); Smoker Start: 02-14-2022 End: 02-14-2022 Emergency department patient visit Leonid Rice Facility:[facility] Start: 02-14-2022 End: 02-14-2022 Emergency department patient visit [facility] Start: 02-11-2022 End: 02-11-2022 Patient encounter procedure Leonid Rice MD Work Phone: Internal Medicine [place] Comment on above: Sebaceous cyst (Prim cheng Dx); Type 2 diabetes mellitus without complication, without long-term current use of insulin (HCC); Tobacco use Start: 12-31-2021 End: 12-31-2021 Patient encounter procedure Marianna Easley APRN.TILE LAYER DRAINAGE Work Phone: Internal Medicine [place] Comment on above: Asthma with COPD (HC C) (Primary Dx); Type 2 diabetes mellitus without complication, without long-term current use of insulin (HCC); JOSSELIN (obstructive sleep apnea); Encounter for immunization; Tobacco use; Obesity, Class III, BMI >= 40; Severe episode of recurrent major depressive disorder, without psychotic features (HCC); Anxiety Start: 11-29-2021 End: 11-29-2021 Subsequent hospital visit by physician [facility] Work Phone: Radiology Comment on [...] Leonid gonzalez MD Work Phone: Internal Medicine [place] Comment on above: Refill Request Start: 10-14-2021 Telephone encounter Leonid mchugh MD Work Phone: Internal Medicine [place] Comment on above: Results Start: 10-06-2021 End: 10-06-2021 Subsequent hospital visit by physician [facility] Work Phone: Radiology Comment on above: Epigastric abdominal pain [R10.13] Start: 09-30-2021 End: 09-30-2021 Patient encounter procedure Leonid Rice MD Work Phone: Internal Medicine [place] Comment on above: Malaise (Primary Dx) ; [...] Emergency department patient visit DR MIKAEL PELLETIER [facility] Start: 06-26-2018 End: 06-26-2018 Emergency department patient visit CHAYO Poon [facility] Start: 04-25-2018 End: 04-28-2018 Patient encounter procedure CHAYO Poon [facility] Start: 04-10-2018 End: 04-10-2018 Patient encounter procedure FELIPA K [facility] Start: 02-22-2018 End: 02-22-2018 Emergency department patient visit CHAYO L [facility] Start: 01-30-2018 End: 02-02-2018 Patient encounter procedure CHAYO L [facility] Start: 01-09-2018 End: 01-09-2018 Patient encounter procedure FELIPA K [facility] Start: 12-19-2017 End: 12-19-2017 [facility] Start: 11-20-2017 End: 11-23-2017 Patient encounter procedure JOSEMANUEL ROJAS [facility] Start: 09-14-2017 End: 09-17-2017 Patient encounter procedure CATA MCCARTHY [facility] Start: 09-09-2017 End: 09-09-2017 Emergency department patient visit [facility] Start: 08-29-2017 Ambulatory YANLEIS A DOTTIE Facility :8 Start: 07-20-2017 End: 07-20-2017 Ambulatory YANELIS A DOTTIE Facility:8 Start: 07-18-2017 End: 07-18-2017 Emergency department patient visit [facility] Start: 07-11-2017 Ambulatory YANELIS A DOTTIE Facility :8 Start: 06-08-2017 Ambulatory KIARRA GARCIA Facility:1 [id number] Start: 06-06-2017 Ambulatory KIARRA GARCIA Facility:1 [id number] Start: 06-06-2017 Ambulatory Facility:[id number] Procedures Date Procedure Procedure Detail Performing Clinician Start: 01-18-2024 Esophagogastroduodenoscopy transoral diagnostic Zachery Toussaint MD Work Phone: Start: 12-27-2023 CT LUNG SCREEN WO BRAYDEN Lincoln Bossman Garcia HOME SERVICE DEMONSTRATOR.TILE LAYER DRAINAGE Work Phone: Start: 10-03-2023 Us breast uni real time with image limited Leonid Rice MD Work Phone: Start: 10-03-2023 Digital breast tomosynthesis unilateral Leonid Rice MD Work Phone: Start: 09-13-2023 Colonoscopy flx dx w/collj spec when pfrmd Mariannanarciso Yap HOME SERVICE DEMONSTRATOR.TILE LAYER DRAINAGE Work Phone: Start: 09-13-2023 Colonoscopy Zachery Toussaint MD Work Phone: Start: 01-26-2023 CT angiography of chest with contrast Start: 01-26-2023 Plain chest X-ray Start: 11-28-2022 INFLUENZA VACCINE, AGE 6 MO - 64 YR, QUADRIVALENT (AFLURIA, FLULAVAL, FLUZONE) Marianna Older HOME SERVICE DEMONSTRATOR.TILE LAYER DRAINAGE Work Phone: Start: 11-18-2022 Radex hand minimum 3 views Marianna loza HOME SERVICE DEMONSTRATOR.TILE LAYER DRAINAGE Work Phone: Start: 06-03-2022 End: 06-03-2022 Mammography Leonid Rice MD Work Phone: Start: 05-31-2022 Radex shoulder complete minimum 2 views Leonid Rice MD Work Phone: Start: 03-31-2022 CT LUNG SCREEN WO BRAYDEN Arcelia Garcia HOME SERVICE DEMONSTRATOR.TILE LAYER DRAINAGE Work Phone: Start: 02-16-2022 Cul bact xcpt urine blood/stool aerobic isol Fabienne Howard PA-C Work Phone: Start: 02-14-2022 Computed tomography of abdomen and pelvis with intravenous contrast Start: 11-29-2021 Radiologic exam abdomen 2 views Marianna norwood HOME SERVICE DEMONSTRATOR.TILE LAYER DRAINAGE Work Phone: Start: 10-06-2021 Us abdominal real [...] Detail Author Start: 05-06-2029 Urine microalbumin profile [facility] Start: 09-12-2028 Screening for malign ant neoplasm of colon [facility] Start: 01-07-2025 Annual PCP Team Concrete Float Maker zeeshan Disease Visit Annual PCP Team Chronic Disease Visit [facility] Start: 01-07-2025 Covid-19 Vaccine ( season) Covid-19 Vaccine ( season) [facility] Comment on above: Postponed from 11/11 (Declined at this time) Start: 01-07-2025 RSV Vaccine (1 - Ris k 60-74 years 1-dose series) RSV Vaccine (1 - Risk 60-74 years 1-dose series) [facility] Comment on above: Postponed from 11/11 (Declined at this time) Start: 12-30-2024 End: 12-30-2024 Patient encounter procedure Cat Scan Comment on above: Encounter for screen ing for lung cancer [Z12.2] Start: 12-26-2024 Screening for malign ant neoplasm of lung Lung Cancer Screening [facility] Start: 11-30-2024 Hepatitis B screening Urine Albumin:Creatinine Ratio [facility] Start: 11-30-2024 Hepatitis B surface antibody level LDL Cholesterol [facility] Start: 08-28-2024 Screening for malign ant neoplasm of breast Mammogram Screening [facility] Start: 08-22-2024 Annual PCP Team Concrete Float Maker zeeshan Disease Visit Annual PCP Team Chronic Disease Visit [facility] Start: 08-22-2024 Diabetic foot examination Diabetic Foot Exam [facility] Start: 07-08-2024 End: 07-08-2024 Patient encounter procedure 07/08/2024 11:00 AM EDT Office Visit [facility] [address] [place] [address] Marianna Yap, HOME SERVICE DEMONSTRATOR.TILE LAYER DRAINAGE [address] [place] [address] 6 month follow up [facility] [place] Comment on above: 6 month follow up Start: 05-30-2024 Hemoglobin A1c measurement HbA1C [facility] Start: 03-02-2024 Annual PCP Team Concrete Float Maker zeeshan Disease Visit Annual PCP Team Chronic Disease Visit [facility] Start: 02-15-2024 End: 02-15-2024 Patient encounter procedure 02/15/2024 10:00 AM EST Office Visit Orthopaedics [address] [place] [address] Smiley De La Paz DO [address] [place] [address] 4-6 week follow up Orthopaedics Comment on above: 4-6 week follow up Start: 01-30-2024 End: 01-30-2024 Patient encounter procedure 01/30/2024 9:30 AM EST Office Visit General Surgery [address] [place] [address] Jadyn Hough, MEÑO.TILE LAYER DRAINAGE [address] [place] [address] 01-17 EGD follow up General Surgery Comment on above: 01-17 EGD follow up Start: 01-18-2024 End: 01-18-2024 Patient encounter procedure Ambulatory Surgery Comment on above: call daughter wilfredo Start: 01-16-2024 End: 01-16-2024 ambulatory 01/16/2024 1:15 PM EST OT/PT/Speech Visit [facility] [address] [place] [address] Ruby Kirkpatrick, PT [address] [place] [address] Chronic pain of left knee [M25.562, G89.29] [facility] Physical Therapy Comment on above: Chronic pain of left knee [M25.562, G89.29] Start: 01-08-2024 End: 01-08-2024 Patient encounter procedure 01/08/2024 11:00 AM EDT Office Visit [facility] [place] [address] [place] [address] Marianna Yap, HOME SERVICE DEMONSTRATOR.TILE LAYER DRAINAGE [address] [place] [address] follow up [facility] [place] Comment on above: follow up Start: 01-04-2024 End: 11-02-2024 MG Breast - left Diagnostic for implant [facility] Radiology Routine Abnormal mammogram of left breast Expected: 01/04/2024, Expires: 11/02/2024 [facility] Work Phone: Comment on above: Expected: 01/04/2024 , Expires: 11/02/2024 Start: 12-27-2023 End: 12-27-2023 Patient encounter procedure Radiology Comment on above: Smoker [F17.200] Type 2 diabetes bear itus without complication, without long-term current use of insulin (HCC) [E11.9] Start: 12-04-2023 End: 12-04-2023 Patient encounter procedure 12/04/2023 9:30 AM EDT Office Visit Orthopaedics [address] [place] [address] Miranda Milner PA-C [address] [place] [address] Left hand pain [M79.642] Orthopaedics Comment on above: Left hand pain [M79. 642] Start: 12-01-2023 End: 03-01-2024 Comprehensive metabolic 2000 panel - Serum or Plasma [facility] Comment on above: Expected: 12/01/2023 , Expires: 03/01/2024 Start: 12-01-2023 End: 03-01-2024 Hemoglobin A1c in Blood [facility] Comment on above: Expected: 12/01/2023 , Expires: 03/01/2024 Start: 12-01-2023 End: 03-01-2024 Lipid 1996 panel - Serum or Plasma [facility] Comment on above: Expected: 12/01/2023 , Expires: 03/01/2024 Start: 12-01-2023 End: 03-01-2024 Microalbumin/Creatinine [Mass Ratio] in Urine [facility] Work Phone: Comment on above: Expected: 12/01/2023 , Expires: 03/01/2024 Start: 11-29-2023 Annual PCP Team Concrete Float Maker zeeshan Disease Visit Annual PCP Team Chronic Disease Visit [facility] Start: 11-19-2023 ANNUAL PCP TEAM CHEMISTRY QUALITY CONTROL TECHNICIAN ZEESHAN DISEASE VISIT ANNUAL PCP TEAM CHRONIC DISEASE VISIT [facility] Start: 11-12-2023 Covid-19 Vaccine ( season) Covid-19 Vaccine ( season) [facility] Start: 11-12-2023 Covid-19 Vaccine ( season) Covid-19 Vaccine ( season) [facility] Start: 11-12-2023 Influenza vaccination Influenza Vacc ine (#1) [facility] Start: 10-18-2023 Shingrix Vaccine (2 of 2) Shingrix Vaccine (2 of 2) [facility] Start: 10-03-2023 End: 10-03-2023 Patient encounter procedure Mammogram Comment on above: LEFT DIAGNOSTIC MAMM OGRAM CALLBACK COMP CB LT Start: 09-13-2023 End: 09-13-2023 Patient encounter procedure 09/13/2023 7:30 AM EDT Appointment Ambulatory Surgery [address] [place] [address] Zachery Toussaint MD [address] [place] [address] Screening for colon cancer [Z12.11] Ambulatory Surgery Comment on above: Screening for colon cancer [Z12.11] Start: 08-29-2023 End: 08-29-2023 Patient encounter procedure 08/29/2023 1:10 PM EDT Appointment [facility] [address] [facility] [place] [address] CALVIN SCREENING W SUE Mammogram Comment on above: CALVIN SCREENING W SUE Start: 08-23-2023 End: 08-23-2023 Patient encounter procedure 08/23/2023 5:40 PM EDT Office Visit [facility] [place] [address] [place] [address] Marianna Yap, HOME SERVICE DEMONSTRATOR.TILE LAYER DRAINAGE [address] [place] [address] Yearly w/3 month follow-up. patient overdue for colonoscopy [facility] [place] Comment on above: Yearly w/3 month fol low-up. patient overdue for colonoscopy Start: 08-23-2023 End: 11-22-2023 Comprehensive metabolic 2000 panel - Serum or Plasma COMPREHENSIVE METABOLIC PANEL Lab Routine Type 2 diabetes mellitus without complication, without long-term current use of insulin (HCC) Expected: 08/23/2023, Expires: 11/22/2023 [facility] Work Phone: Comment on above: Expected: 08/23/2023 , Expires: 11/22/2023 Start: 08-23-2023 End: 11-22-2023 Hemoglobin A1c in Blood HEMOGLOBIN A1C Lab Routine Type 2 diabetes mellitus without complication, without long-term current use of insulin (HCC) Expected: 08/23/2023, Expires: 11/22/2023 [facility] Comment on above: Expected: 08/23/2023 , Expires: 11/22/2023 Start: 08-23-2023 End: 11-22-2023 Lipid 1996 panel - Serum or Plasma LIPID PANEL BASIC Lab Routine Type 2 diabetes mellitus without complication, without long-term current use of insulin (HCC) Expected: 08/23/2023, Expires: 11/22/2023 [facility] Comment on above: Expected: 08/23/2023 , Expires: 11/22/2023 Start: 08-23-2023 End: 11-22-2023 Microalbumin/Creatinine [Mass Ratio] in Urine ALBUMIN/CREATININE RATIO, URINE Lab Routine Type 2 diabetes mellitus without complication, without long-term current use of insulin (HCC) Expected: 08/23/2023, Expires: 11/22/2023 [facility] Comment on above: Expected: 08/23/2023 , Expires: 11/22/2023 Start: 08-12-2023 Glaucoma screening Dilated Retinal E xam [facility] Start: 08-12-2023 Hepatitis C antibody , confirmatory test DILATED RETINAL EXAM [facility] Start: 06-04-2023 Mammography [facility] Start: 06-04-2023 Screening for malign ant neoplasm of breast Mammogram Screening [facility] Start: 06-01-2023 ANNUAL PCP TEAM CHEMISTRY QUALITY CONTROL TECHNICIAN ZEESHAN DISEASE VISIT ANNUAL PCP TEAM CHRONIC DISEASE VISIT [facility] Start: 03-31-2023 Influenza vaccination LUNG CANCER SC REENING [facility] Start: 03-31-2023 Screening for malign ant neoplasm of lung Lung Cancer Screening [facility] Start: 02-11-2023 ANNUAL PCP TEAM CHEMISTRY QUALITY CONTROL TECHNICIAN ZEESHAN DISEASE VISIT ANNUAL PCP TEAM CHRONIC DISEASE VISIT [facility] Start: 01-26-2023 [facility] Start: 01-26-2023 [facility] Start: 01-02-2023 Colonoscopy COLONOSCOPY [facility] Start: 01-02-2023 COLORECTAL CANCER SCREENING COLORECTAL CANCER SCREENING [facility] Start: 01-02-2023 Screening for malign ant neoplasm of colon [facility] Start: 12-31-2022 ANNUAL PCP TEAM CHEMISTRY QUALITY CONTROL TECHNICIAN ZEESHAN DISEASE VISIT ANNUAL PCP TEAM CHRONIC DISEASE VISIT [facility] Start: 12-31-2022 COVID-19 VACCINE (3 - Booster for Moderna series) COVID-19 VACCINE (3 - Booster for Moderna series) [facility] Comment on above: Postponed from 09/02 (Declined at this time) Start: 12-31-2022 COVID-19 VACCINE (3 - Moderna series) COVID-19 VACCINE (3 - Moderna series) [facility] Comment on above: Postponed from 09/02 (Declined at this time) Start: 12-31-2022 SHINGRIX VACCINE (1 of 2) SHINGRIX VACCINE (1 of 2) [facility] Comment on above: Postponed from 11/11 (Declined at this time) Start: 12-01-2022 Hemoglobin A1c measurement HbA1C [facility] Start: 12-01-2022 Hemoglobin A1c/Hemoglobin.total in Blood HBA1C [facility] Start: 11-29-2022 ANNUAL PCP TEAM CHEMISTRY QUALITY CONTROL TECHNICIAN ZEESHAN DISEASE VISIT ANNUAL PCP TEAM CHRONIC DISEASE VISIT [facility] Start: 11-18-2022 End: 01-18-2023 C reactive protein [Mass/volume] in Serum or Plasma [facility] Work Phone: Comment on above: Expected: 11/18/2022 , Expires: 01/18/2023 Start: 11-18-2022 End: 01-18-2023 Urate [Mass/volume] in Serum or Plasma [facility] Work Phone: Comment on above: Expected: 11/18/2022 , Expires: 01/18/2023 Start: 2022 Covid-19 Vaccine (2022- season) Covid-19 Vaccine (2022- season) [facility] Start: 2022 Hepatitis B Vaccine (1 of 3 - Risk 3-dose series) Hepatitis B Vaccine (1 of 3 - Risk 3-dose series) [facility] Start: 2022 Influenza vaccination C [facility] Start: 2022 RSV Vaccine (1 - 1-d ose 60+ series) RSV Vaccine (1 - 1-dose 60+ series) [facility] Start: 2022 RSV Vaccine (1 - Ris k 60-74 years 1-dose series) RSV Vaccine (1 - Risk 60-74 years 1-dose series) [facility] [facility] Start: 09-30-2022 3 comp foot exam completed DIABETIC FOOT EXAM [facility] Start: 09-30-2022 ANNUAL PCP TEAM CHEMISTRY QUALITY CONTROL TECHNICIAN ZEESHAN DISEASE VISIT ANNUAL PCP TEAM CHRONIC DISEASE VISIT [facility] Start: 09-30-2022 Diabetic foot examination Diabetic Foot Exam [facility] Start: 09-30-2022 Hepatitis B screening URINE ALBUMIN:CREATININE RATIO [facility] Start: 09-30-2022 Hepatitis B surface antibody level LDL CHOLESTEROL [facility] Start: 09-09-2022 Influenza vaccination INFLUENZA (#1) [facility] Comment on above: Postponed from 11/11 (Declined at this time) Start: 07-27-2022 End: 09-26-2022 Basic metabolic 2000 panel - Serum or Plasma BASIC METABOLIC PNL Lab Routine Hyperkalemia Expected: 07/27/2022, Expires: 09/26/2022 [facility] Work Phone: Comment on above: Expected: 07/27/2022 , Expires: 09/26/2022 Start: 06-18-2022 Hepatitis C antibody , confirmatory test DILATED RETINAL EXAM [facility] Start: 05-12-2022 End: 07-12-2022 Basic metabolic 2000 panel - Serum or Plasma BASIC METABOLIC PNL Lab Routine Type 2 diabetes mellitus without complication, without long-term current use of insulin (HCC) Expected: 05/12/2022, Expires: 07/12/2022 [facility] Work Phone: Comment on above: Expected: 05/12/2022 , Expires: 07/12/2022 Start: 05-12-2022 End: 07-12-2022 Hemoglobin A1c in Blood HGB A1C Lab Routine Type 2 diabetes mellitus without complication, without long-term current use of insulin (HCC) Expected: 05/12/2022, Expires: 07/12/2022 [facility] Work Phone: Comment on above: Expected: 05/12/2022 , Expires: 07/12/2022 Start: 04-22-2022 Mammography MAMMOGRAM [facility] Start: 04-02-2022 ANNUAL PCP TEAM CHEMISTRY QUALITY CONTROL TECHNICIAN ZEESHAN DISEASE VISIT ANNUAL PCP TEAM CHRONIC DISEASE VISIT [facility] Start: 04-02-2022 Hemoglobin A1c/Hemoglobin.total in Blood HBA1C [facility] Start: 2021 Influenza vaccination INFLUENZA (#1) [facility] Start: 10-17-2021 Hepatitis B screening URINE ALBUMIN:CREATININE RATIO [facility] Start: 10-17-2021 Hepatitis B surface antibody level LDL CHOLESTEROL [facility] Start: 09-30-2021 3 comp foot exam completed DIABETIC FOOT EXAM [facility] Start: 07-21-2022 Hemoglobin A1c/Hemoglobin.total in Blood HBA1C [facility] Start: 05-20-2021 Influenza vaccination LUNG CANCER SC REENING [facility] Start: 12-08-2020 COVID-19 VACCINE (3 - Booster for Moderna series) COVID-19 VACCINE (3 - Booster for Moderna series) [facility] Start: 05-06-2020 PNEUMOCOCCAL (2 - PCV) PNEUMOCOCCAL (2 - PCV) [facility] Start: 2012 SHINGRIX VACCINE (1 of 2) SHINGRIX VACCINE (1 of 2) [facility] Start: 11-24-2011 FECAL OCCULT BLOOD FECAL OCCULT BLOO D [facility] Start: 11-24-2011 Screening for malign ant neoplasm of colon Fecal Occult Blood [facility] Start: 11-12-2007 COLOGUARD (FIT-DNA) COLOGUARD (FIT-D NA) [facility] Start: 11-12-[address] COLONOGRAPHY [facility] Start: 11-12-2007 Screening for malign ant neoplasm of colon [facility] Start: 11-12-2007 SIGMOIDOSCOPY SIGMOIDOSCOPY [facility] Start: 1981 HEPATITIS B (1 of 3 - Risk 3-dose series) HEPATITIS B (1 of 3 - Risk 3-dose series) [facility] Start: 1962 HEPATITIS B (1 of 3 - 3-dose series) HEPATITIS B (1 of 3 - 3-dose series) [facility] Bacteria identified in Wound by Culture WOUND CULTURE AND GRAM STAIN Microbiology Routine Abscess of skin of abdomen 02/16/2022 9:02 AM EST [facility] Work Phone: End: 10-16-2024 CT Chest for screening WO contrast CT LUNG SCREEN WO IVCON Radiology Routine Smoker Encounter for screening for malignant neoplasm of lung 1 Occurrences starting 12/05/2023 until 10/16/2024 [facility] Work Phone: Comment on above: 1 Occurrences starti ng 12/05/2023 until 10/16/2024 End: 01-25-2025 CT Chest for screening WO contrast CT LUNG SCREEN WO IVCON Radiology Routine Encounter for screening for lung cancer Smoker 1 Occurrences starting 12/27/2023 until 01/25/2025 [facility] Work Phone: Comment on above: 1 Occurrences starti ng 12/27/2023 until 01/25/2025 End: 03-17-2023 CT LUNG SCREEN WO IVCON CT LUNG SCREEN WO IVCON Radiology Routine Smoker Encounter for screening for lung cancer 1 Occurrences starting 02/15/2022 until 03/17/2023 [facility] Work Phone: Comment on above: 1 Occurrences starti ng 02/15/2022 until 03/17/2023 End: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 instructions Patient Education 02/21/2023 [...] swelling, or pus coming from any wound [phone] [employer] [place] [address]. All rights reserved. This information is not intended as a substitute for professional medical care. Always follow your healthcare professional's instructions. Follow Up Care 02/21/2023 12:16:04 With:FAMILY [facility] Address: [address] [place] [phone] When:2-4 days [facility] 02-21-2023 Emergency department Discharge summary Discharge [...] Following Appointments Follow Up with [facility], [facility] When Within 2-4 days Where: [address] [place] [phone] Allergies Contrast dye Medications Please ask your [...] swelling, or pus coming from any wound [phone] [employer]. [address] [place] [address]. All rights reserved. This information is not intended as a substitute for professional medical care. Always follow your healthcare professional's instructions. Additional Information VACCINATE! IT SAVES LIVES! Members of the community who have not yet received the COVID-19 vaccine and would like to receive it can visit one of [facility] vaccine clinics. There are many vaccine clinic locations within the [facility]. For locations and available times, please visit [email or web address] It is important to note that some COVID mobile vaccine clinics are held outdoors and may be canceled in rainy or stormy conditions. To learn more about pediatric vaccinations (ages 5-11), we invite you to visit the [facility] webpage. [email or web address] To learn more about the COVID-19 vaccine, we invite you to visit the CDC website for a list of frequently asked questions. https://www.cdc.gov/coronavirus/-ncov/vaccines/faq.html [facility] Patient Portal Access Instructions: Stay connected with your healthcare team and access your personal medical information anytime with the [employer] Patient Portal. If you would like a full copy of your medical records please contact the [facility] Medical Records Department Monday through Monday between 8a.m. and 4:30p.m. Please follow the directions below to access the portal: 1.Access the email account you provided upon registration to the [facility].2.Look for an invitation email from [facility].3.Open the email and access the invitation link: Accept Invitation to [employer]4.Fill in the required hernandez to create your [...] you will allow to register on the [facility] Patient Portal for access to your information. You can also access the [employer] Patient Portal on the [employer] alisson. Simply click on Health Records under [...] Call your local pharmacy or go to [email or web address] to find one close to you.3.Make use of household items: Use cat litter or old coffee grounds to dispose medications if other options are not available. Mix your drugs with these household products, seal them in an airtight container and throw it into the garbage. Call [facility]: [phone] to be sure your drugs can be [...] aware that I should contact my doctor. Patient/Tram Inspector Signature: Date/Time: Relationship to Patient: ___ Witness Name/Signature: Date/Time: [facility] 02-21-2023 Note ORIGINAL EXAMINATION: CT OF [...] Sign Date: 02/21/2023 1:44:14 PM Ordering Provider: [facility] 02-21-2023 Note ORIGINAL EXAMINATION: CT OF THE CHEST WITH FBGOTZTV88/12/2023 1:18 pm TECHNIQUE: CT of the chest [...] Sign Date: 02/21/2023 1:39:30 PM Ordering Provider: [facility] 02-21-2023 Note ORIGINAL EXAMINATION: CT HEAD [...] Sign Date: 02/21/2023 1:12:11 PM Ordering Provider: [facility] 02-21-2023 Note ORIGINAL EXAMINATION: TWO XRAY [...] Sign Date: 02/21/2023 12:54:24 PM Ordering Provider: [facility] 02-21-2023 Note ORIGINAL EXAMINATION: TWO XRAY [...] Sign Date: 02/21/2023 12:53:20 PM Ordering Provider: [facility] 02-21-2023 Note ORIGINAL EXAMINATION: ONE XRAY [...] Sign Date: 02/21/2023 12:52:43 PM Ordering Provider: [facility] 02-21-2023 Note ORIGINAL EXAMINATION: ONE XRAY [...] Sign Date: 02/21/2023 12:51:57 PM Ordering Provider: [facility] 01-26-2023 Miscellaneous Notes Protocol recommends call 911 now. Pt is agreeable to plan, states she will be going to [facility] ER. Care plan reviewed with patient. [...] cough. 11. : Postmenopausal Protocols used: Chest Ywsy-FHKVZ-WL documented in this encounter [facility] 12-15-2022 Instructions Meredith Jimenez APRN.RIGO - 12/15/2022 10:37 AM EDT Use the prescription cream twice a day to the affected area and also use coconut oil twice a day in between use of the prescription cream documented in this encounter [facility] 12-15-2022 History of Present illness Narrative Dining Room Host offered: Patient declines. Jennifer Mcmullen is a [...] Comment: lost during a TRAVIS performed in [place] per pt. Management Developer History LMP: Hysterectomy Age at Menarche: Age at First : Age at Menopause: Management Developer History Comments: Sexual Activity: Not Currently; No partner data on record Contraception: No contraception data on record PAST MEDICAL HISTORY Diagnosis Date Asthma Chronic low back pain 05/27/2014 Work injury 2006 Depression [facility] Diabetes mellitus (HCC) Disc slipped disc in [...] internal hemorrhoids. lax anal tone. Giovanna in [facility] COLONOSCOPY FLX DX W/COLLJ SPEC WHEN PFRMD 06/12/2014 Colonoscopy out pt [facility] EGD 04/10/2018 Hpylori negative - Giovanna in [facility] ESOPHAGOGASTRODUODENOSCOPY TRANSORAL DIAGNOSTIC 06/12/2014 EGD outpt [facility] HERNIA REPAIR HX 12/01/2011 TOTAL ABDOMINAL HYSTERECT W/WO RMVL TUBE OVARY 1980 fibroid FAMILY HISTORY Problem Relation Age of Onset Heart Mother 70 Diabetes Mother Hypertension Mother Asthma Mother Hypertension Father Diabetes Father Colon Cancer Father in his seventies Asthma Sister Asthma Brother Seizures Brother Coronary Artery Disease Brother [place] Social History Tobacco Use Smoking status: Every [...] external genitalia normal, normal Bartholin's glands, urethra, [place]'s glands, no vulvar lesions, physiologic discharge present, [...] 3 - Low documented in this encounter [facility] 12-04-2022 Miscellaneous Notes I will refill [...] THE LUNGS once daily Patient Phone numbers: [phone] (home) Request is for script(s) to be escript to pharmacy. Danielle Melendez documented in this encounter [facility] 11-28-2022 History of Present illness Narrative [...] back pain 05/27/2014 Work injury 2006 Depression [facility] Diabetes mellitus (HCC) Disc slipped disc in back Fracture of right ankle Head injury Helicobacter pylori infection 09/12/2016 Hernia, hiatal Hyperglycemia 2010 Insomnia JOSSELIN (obstructive sleep apnea) 02/25/2019 Post-traumatic headache 01/16/2014 Postmenopausal Prediabetes 04/08/2019 PTSD (post-traumatic stress disorder) Tobacco use PAST SURGICAL HISTORY Procedure Laterality Date APPENDECTOMY 2013 [place] SECTION HX 1980 x 2 CHOLECYSTECTOMY 1990 COLONOSCOPY 01/10/2018 Random bx neg. internal hemorrhoids. lax anal tone. Giovanna in [facility] COLONOSCOPY FLX DX W/COLLJ SPEC WHEN PFRMD 06/12/2014 Colonoscopy out pt [facility] EGD 04/10/2018 Hpylori negative - Giovanna in [facility] ESOPHAGOGASTRODUODENOSCOPY TRANSORAL DIAGNOSTIC 06/12/2014 EGD outpt [facility] HERNIA REPAIR HX 12/01/2011 TOTAL ABDOMINAL [...] by mouth daily at bedtime. Noble Gilbert, [employer] LAYER DRAINAGE, [facility]. FLUoxetine (PROZAC) 20 mg capsule [...] Brother Seizures Brother Coronary Artery Disease Brother [place] Social History Tobacco Use Smoking status: Every [...] Marianna Easley APRN.CNP documented in this encounter [facility] 11-28-2022 Instructions Marianna Easley APRN.CNP - [...] significa que la articulaci n no se aerospace stress engineer , willis tampoco doler . Otra opci [...] mejor para usted. documented in this encounter [facility] 11-25-2022 Miscellaneous Notes Scheduled. Schedule follow-up for next week Marianna Easley APRN.CNP Phoned patient and went over results, notes from Marianna Easley JOURNEYMAN PIPEFITTER with understanding. Patient said no improvement, her hands hurt a lot all the time. ----- Message from Marianna Easley APRN.CNP sent at 11/23/2022 2:12 PM EDT ----- Please let the patient know her labs were normal. 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 Has there been any improvement in pain? Marianna Easley APRN.CNP documented in this encounter [facility] 11-18-2022 History of Present illness Narrative [...] 2022 1:59 PM documented in this encounter [facility] 11-18-2022 Instructions Marianna Easley APRN.CNP - 11/18/2022 1:37 PM EDT For hand pain: start prednisone, follow prescription instructions. This may cause your blood sugars to be higher than usual. Please call the office if your blood sugar is over 300. documented in this encounter [facility] 11-18-2022 History of Present illness Narrative [...] back pain 05/27/2014 Work injury 2006 Depression [facility] Diabetes mellitus (HCC) Disc slipped disc in back Fracture of right ankle Head injury Helicobacter pylori infection 09/12/2016 Hernia, hiatal Hyperglycemia 2010 Insomnia JOSSELIN (obstructive sleep apnea) 02/25/2019 Post-traumatic headache 01/16/2014 Postmenopausal Prediabetes 04/08/2019 PTSD (post-traumatic stress disorder) Tobacco use PAST SURGICAL HISTORY Procedure Laterality Date APPENDECTOMY 2012 [place] SECTION HX 1979 x 2 CHOLECYSTECTOMY 1989 COLONOSCOPY 01/10/2018 Random bx neg. internal hemorrhoids. lax anal tone. Giovanna in [facility] COLONOSCOPY FLX DX W/COLLJ SPEC WHEN PFRMD 06/12/2014 Colonoscopy out pt [facility] EGD 04/10/2018 Hpylori negative - Giovanna in [facility] ESOPHAGOGASTRODUODENOSCOPY TRANSORAL DIAGNOSTIC 06/12/2014 EGD outpt [facility] HERNIA REPAIR HX 12/01/2011 TOTAL ABDOMINAL [...] Brother Seizures Brother Coronary Artery Disease Brother [place] Social History Tobacco Use Smoking status: Every [...] Marianna Easley APRN.CNP documented in this encounter [facility] 07-27-2022 Miscellaneous Notes Pt called and is notified of providers results and instructions. Pt voices understanding. Fabienne Babulski, RN Please let the patient know I reviewed her lab results from 05/31. HgbA1c 6.3, diabetes well controlled. Kidney function was stable. Potassium slightly elevated, recheck at her earliest convenience Marianna Easley APRN.TILE LAYER DRAINAGE documented in this encounter [facility] 06-13-2022 Miscellaneous Notes Patient notified of below results/recommendation, verbalized understanding. Sanam Aragon LPN ----- Message from Leonid Rice MD sent at 06/12/2022 12:11 PM EDT ----- Shoulder xray mild arthritis of acromioclavicular joint. Continue meloxicam. documented in this encounter [facility] 06-06-2022 Miscellaneous Notes June 07, 2022 PID: [id number] Jennifer Mcmullen [address] [place] [address] Dear Ms. Yajaira Mcmullen, We are pleased [...] report will be kept on file at [facility] as part of your permanent medical record and are available for your continuing care. Thank you for allowing us to help in meeting your health care needs. Sincerely, Dr. Mitchell Interpreting Radiologist [facility] (Normal over 40) documented in this encounter [facility] 06-03-2022 History of Present illness Narrative [...] 2022 12:33 PM documented in this encounter [facility] 05-31-2022 Instructions Leonid Rice MD - 05/31/2022 10:43 AM EDT BLOOD WORK TODAY. documented in this encounter [facility] 05-31-2022 History of Present illness Narrative This note was created using [employer]. Subjective Jennifer Mcmullen is a 61 year [...] Complication, Without Long-Term Current Use of Insulin ([facility]) Social History Tobacco Use Smoking status: Every [...] by mouth daily at bedtime. Noble Gilbert, [facility], [facility]. FLUoxetine (PROZAC) 20 mg [...] Leonid Rice MD documented in this encounter [facility] 05-25-2022 Miscellaneous Notes Patient has been [...] Christina Jeong Pss documented in this encounter [facility] 04-07-2022 Miscellaneous Notes All faxed to [...] reporting Pt is using a Cpap to [phone]. documented in this encounter [facility] 04-01-2022 Miscellaneous Notes Spoke with patient's daughter listed as emergency messenger floorperson) regarding LDCT category 1 results with follow-up recommended in one year for annual LCS. She comprehend and agreeable with plan. Arcelia Garcia APRN.RIGO documented in this encounter [facility] 03-31-2022 Miscellaneous Notes Radiology Service Progress [...] 2022 1:59 PM documented in this encounter [facility] 02-16-2022 Instructions Lakeisha Silva LPN - [...] General Surgery department. documented in this encounter [facility] 02-16-2022 History of Present illness Narrative [...] back pain 05/27/2014 Work injury 2006 Depression [facility] Diabetes mellitus (HCC) Disc slipped disc in back Fracture of right ankle Head injury Helicobacter pylori infection 09/12/2016 Hernia, hiatal Hyperglycemia 2010 Insomnia JOSSELIN (obstructive sleep apnea) 02/25/2019 Post-traumatic headache 01/16/2014 Postmenopausal Prediabetes 04/08/2019 PTSD (post-traumatic stress disorder) Tobacco use OPERATIONS: PAST SURGICAL HISTORY Procedure Laterality Date APPENDECTOMY 2012 [place] SECTION HX 1980 x 2 CHOLECYSTECTOMY 1989 COLONOSCOPY 01/10/2018 Random bx neg. internal hemorrhoids. lax anal tone. Gi[facility]anna in [facility] COLONOSCOPY FLX DX W/COLLJ SPEC WHEN PFRMD 06/12/2014 Colonoscopy out pt [facility] EGD 04/10/2018 Hpylori negative - Gi[facility]anna in [facility] ESOPHAGOGASTRODUODENOSCOPY TRANSORAL DIAGNOSTIC 06/12/2014 EGD outpt [facility] HERNIA REPAIR HX 12/01/2011 TOTAL ABDOMINAL [...] by mouth daily at bedtime. [facility], [employer] DRAIN[employer], [facility]. FLUoxetine (PROZAC) 20 mg capsule [...] Brother Seizures Brother Coronary Artery Disease Brother IN REVIEW OF SYMPTOMS: The review of systems data was entered by the nurse and reviewed by vt Nursing Notes: Va Padilla LPN 02/16/2022 8:06 [...] Fabienne Howard PA-C documented in this encounter [facility] 02-16-2022 Nurse Note REVIEW OF SYSTEMS: [...] Va Padilla LPN documented in this encounter [facility] 02-15-2022 Instructions Arcelia Garcia APRN.TILE LAYER DRAINAGE - 02/15/2022 11:[address] Lung [...] receive this result. Lung Cancer Screening hotline: [phone] Lung Cancer Screening [phone] Billing Questions: or [email or web address] Lung Cancer Screening Team: Fabienne Mcnair CNP; Bossman Garcia CNP; Colette Cornejo CNP; Elisa Lord CNP, SELVIN LevinC: [phone] Josemanuel Swanson PA-C Cigarette Logs : Record [...] candy are also excellent oral substitutes. Phone [phone] ([phone]) as additional resource. documented in this encounter [facility] 02-15-2022 History of Present illness Narrative [...] have screening. HISTORY OF PRESENT ILLNESS: Jennifer cMmullen is a 61 year old active smoker who presents for lung screening. Here with daughter who assisted with indonesian translation Respiratory symptoms include: SOB: Yes with [...] neb/rescue inhaler. Follows with general pulmonology at [place]. Fever/Chills: No Recent Respiratory Infection: No Unintentional [...] 50% of waking hrs. Modified [employer] [place] Dyspnea Scale (MMRC) On level ground I [...] back pain 05/27/2014 Work injury 2006 Depression [facility] Diabetes mellitus (HCC) Disc slipped disc in back Fracture of right ankle Head injury Helicobacter pylori infection 09/12/2016 Hernia, hiatal Hyperglycemia 2010 Insomnia JOSSELIN (obstructive sleep apnea) 02/25/2019 Post-traumatic headache 01/16/2014 Postmenopausal Prediabetes 04/08/2019 PTSD (post-traumatic stress disorder) Tobacco use PAST SURGICAL HISTORY Procedure Laterality Date APPENDECTOMY 2012 [place] SECTION HX 1980 x 2 CHOLECYSTECTOMY 1989 COLONOSCOPY 01/10/2018 Random bx neg. internal hemorrhoids. lax anal tone. Giovanna in [facility] COLONOSCOPY FLX DX W/COLLJ SPEC WHEN PFRMD 06/12/2014 Colonoscopy out pt [facility] EGD 04/10/2018 Hpylori negative - Giovanna in [facility] ESOPHAGOGASTRODUODENOSCOPY TRANSORAL DIAGNOSTIC 06/12/2014 EGD outpt [facility] HERNIA REPAIR HX 12/01/2011 TOTAL ABDOMINAL HYSTERECT W/WO RMVL TUBE OVARY 1980 fibroid FAMILY HISTORY Problem Relation Age of Onset Heart Mother 70 Diabetes Mother Hypertension Mother Asthma Mother Hypertension Father Diabetes Father Colon Cancer Father in his seventies Asthma Sister Asthma Brother Seizures Brother Coronary Artery Disease Brother [place] albuterol (PROVENTIL) 2.5 mg /3 mL (0.083 [...] by mouth daily at bedtime. Noble Gilbert, [facility], [facility]. FLUoxetine (PROZAC) 20 mg capsule [...] Function Testing: SPIROMETRY WITH DILATOR IF OBSTRUCTED ([id number]) - ordered on 10/18/18 [facility] [address] [place] [address] Test Date: 2018-10-18 Pat Name: JENNIFER MCMULLEN Department: Room: Gender: Female Furnace Firer: : 1960 Requested By: Order Number: [id number] Reading MD: Zack Walker Interpretive Statements ATS [...] 7:37:30 EDT by Zack Walker [facility] [address] [place], [place] [address] PFT Lab Report Name: JENNIFER RAMIREZ ID: [id number] Date: 10/18/18 Physician: Genaro JACK Age: 57 Height(in): 60.0 Weight(lb): 234 Gender: Female Race: Diagnosis: Medication Set 1: Dyspnea Rest: No Dyspnea Exercise: No Cough: No Persistent: No Productive (cc): Smoker: No How Long: Stopped: Cigarettes: No Furnace Firer: Suha Dodson RCP Temp: 26 PBar: 734 PF Reference: ######## Spirometry Hb: gm/dL Ref Pre Pre Post Post Post Enedelia % Ref Enedelia % Ref % Chg FVC Liters 2.94 1.64 56 FEV1 Liters 2.30 1.33 58 FEV1/FVC % 79 81 GYE26-31% L/sec 2.33 1.49 64 DkvGGK64-35 L/sec 2.50 1.49 60 PEF L/sec 5.92 4.11 69 QNE756% Sec 6.26 MVV L/min 92 f BPM [...] year risk for lung cancer: 1.4 Source: reQall [email or web address] [email or web address] I have determined that the patient [...] candy are also excellent oral substitutes. Phone [phone] ([phone]) as additional resource. The medical conditions adversely affected by cigarette use include:Diabetes. The patient is currently not ready to quit. I personally spent 6 minutes in counseling. The time spent in smoking cessation counseling is exclusive of any other counseling during this visit. I spent a total of 30 minutes on the date of the service which included preparing to see the patient, [id number] patient care, completing clinical documentation, obtaining and/or reviewing separately obtained history, counseling and educating the patient/family/caregiver, ordering medications, tests, or procedures, and communicating results to the patient/family/caregiver. Arcelia Garcia APRN.RIGO NPI #: February 15, 2022 11:11 AM documented in this encounter [facility] 02-11-2022 History of Present illness Narrative This note was created using [employer]. Subjective Jennifer Mcmullen is a 61 year old female. She noted a sore lump on her lower mid abdomen 5 days ago. This was tender, but with no drainage. She was planning to travel for [place] and was interested in having this drained [...] Leonid Rice MD documented in this encounter [facility] 12-31-2021 History of Present illness Narrative [...] without long-term current use of insulin ([facility]) Home blood sugar readings: daily, [...] back pain 05/27/2014 Work injury 2006 Depression [facility] Diabetes mellitus (HCC) Disc slipped disc in [...] internal hemorrhoids. lax anal tone. Giovanna in [facility] COLONOSCOPY FLX DX W/COLLJ SPEC WHEN PFRMD 06/12/2014 Colonoscopy out pt [facility] EGD 04/10/2018 Hpylori negative - Giovanna in [facility] ESOPHAGOGASTRODUODENOSCOPY TRANSORAL DIAGNOSTIC 06/12/2014 EGD outpt [facility] HERNIA REPAIR HX 12/01/2011 TOTAL ABDOMINAL [...] by mouth daily at bedtime. Noble Gilbert, [facility] [employer]. FLUoxetine (PROZAC) 20 mg capsule [...] Brother Seizures Brother Coronary Artery Disease Brother [place] Social History Tobacco Use Smoking status: Every [...] Marianna Easley APRN.CNP documented in this encounter [facility] 11-29-2021 History of Present illness Narrative [...] 2021 2:42 PM documented in this encounter [facility] 11-29-2021 Instructions Marianna Easley APRN.CNP - [...] 100.5, rigid/hard abdomen. documented in this encounter [facility] 11-29-2021 History of Present illness Narrative [...] internal hemorrhoids. lax anal tone. Giovanna in [facility] COLONOSCOPY FLX DX W/COLLJ SPEC WHEN PFRMD 06/12/2014 Colonoscopy out pt [facility] EGD 04/10/2018 Hpylori negative - Giovanna in [facility] ESOPHAGOGASTRODUODENOSCOPY TRANSORAL DIAGNOSTIC 06/12/2014 EGD outpt [facility] HERNIA REPAIR HX 12/01/2011 TOTAL ABDOMINAL [...] by mouth daily at bedtime. Noble Gilbert, [facility], [facility]. FLUoxetine (PROZAC) 20 mg [...] Brother Seizures Brother Coronary Artery Disease Brother [place] Social History Tobacco Use Smoking status: Every [...] without long-term current use of insulin ([facility]) - ICD9: 250.00, ICD10: E11.9 - LANCETS refilled - BLOOD GLUCOSE TEST STRIPS refilled Prescription instructions reviewed with patient as applicable. Potential red flag symptoms discussed with the patient. Reviewed appropriate action plan to take if red flag symptoms occur. Patient agreeable to treatment plan. Marianna Easley APRN.CNP documented in this encounter [facility] 11-13-2021 History of Present illness Narrative [...] back pain 05/27/2014 Work injury 2006 Depression [facility] Diabetes mellitus (HCC) Disc slipped disc in [...] by mouth daily at bedtime. Noble Gilbert, [facility], [facility]. FLUoxetine (PROZAC) 20 mg capsule [...] in the emergency room. Report sent to [facility] by ER passport. Terell Joseph MD documented in this encounter [facility] 11-01-2021 Miscellaneous Notes Patient has been [...] you. Sanam Aragon LPN Pharmacy verified in [facility] Patient has been identified by name [...] M Sim Pss documented in this encounter [facility] 10-14-2021 Miscellaneous Notes Patient returned call [...] for fatty liver. documented in this encounter [facility] 10-06-2021 History of Present illness Narrative [...] 2021 2:06 PM documented in this encounter [facility] 09-30-2021 Instructions Leonid Rice MD - 09/30/2021 2:20 PM EDT DO ALL LABS TODAY. PATIENT FASTING. (CBC, CMP, LIPIDS, A1C, URINE ALBUMIN) SCHEDULE ULTRASOUND RIGHT UPPER QUADRANT ORDERED IN March. documented in this encounter [facility] 09-30-2021 History of Present illness Narrative This note was created using [employer]. Subjective Jennifer Mcmullen is a 60 year [...] Complication, Without Long-Term Current Use of Insulin ([facility]) Current Outpatient Medications Medication Sig budesonide-formoterol (SYMBICORT) [...] Leonid Rice MD documented in this encounter [facility] 08-31-2021 Miscellaneous Notes Order for PAP supplies faxed to [employer]. Dionna Cervantes Adm Asst documented in this encounter [facility] 08-10-2021 Miscellaneous Notes I last Jennifer Mar 2019. Please let pt know refill requests should go to her client relationship executive that she now sees in [place]. She saw Dr Colette Quarles. documented in this encounter [facility] 08-06-2020 History of Past i llness [...] of this encounter (statuses as of 08/10/2021) [facility] History of Past illness Narrative* Problem [...] of this encounter (statuses as of 08/31/2021) [facility] History of Past illness Narrative* Problem [...] of this encounter (statuses as of 09/30/2021) [facility] History of Past illness Narrative* Problem [...] of this encounter (statuses as of 10/07/2021) [facility] History of Past illness Narrative* Problem [...] of this encounter (statuses as of 10/14/2021) [facility] History of Past illness Narrative* Problem [...] of this encounter (statuses as of 11/01/2021) [facility] History of Past illness Narrative* Problem [...] of this encounter (statuses as of 11/13/2021) [facility] History of Past illness Narrative* Problem [...] of this encounter (statuses as of 11/29/2021) [place] [address]-27-2021 History of Past illness Narrative* Problem Noted [...] of this encounter (statuses as of 12/31/2021) [facility] of Past illness Narrative* Problem [...] of this encounter (statuses as of 02/12/2022) [facility] of Past illness Narrative* Problem [...] of this encounter (statuses as of 02/15/2022) [facility] of Past illness Narrative* Problem [...] of this encounter (statuses as of 02/19/2022)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 anation Advance Directive(s) 10/27/2016 11:58 AM Advance Directive(s) 05/03/2016 8:27 AM Advance Directive(s) 04/26/2016 5:07 PM Advance Directive Response Recorded Date/ Time Advance Directives No March 24, 2015 3:41pm Living Will No February 14 4:11pm Power of Operations Support Analyst No February 14, 2022 4:11pm Advance Directive Response Recorded Date/ Time Advance Directives No March 24, 2015 3:41pm Living Will No January 26 023 11:25am Power of Operations Support Analyst No January 26, 2023 11:25am Reason for Referral Specialty Diagnoses / Procedures Referred By Contac t Referred To Contact General Surgery Diagnoses Sebaceous cyst Procedures CONSULT TO GENERAL SURGERY OFFICE/OUTPATIENT [facility] 60-74 MINUTES Leonid Rice MD [address] [place] [address] Referral ID Status Reason Start Date Expiration Date Visits Requested Visits Authorized [id number] Authorized PCP Requested Referral 02/11/2022 02/11/2023 1 1 Specialty Diagnoses / Procedures Referred By Contac t Referred To Contact CT IMAGING Diagnoses Smoker Encounter for screening for lung cancer Procedures CT LUNG SCREEN WO IVCON COMPUTED TOMOGRAPHY THORAX LW DOSE LNG CA SCR Arcelia Shah, HOME SERVICE DEMONSTRATOR.TILE LAYER DRAINAGE [address] [place] [address] Ct Imaging Referral ID Status Reason Start Date Expiration Date Visits Requested Visits Authorized [id number] Pending Review Auto-Generat ed Referral 02/15/2022 03/17/2023 1 1 Specialty Diagnoses / Procedures Referred By Contac t Referred To Contact CT IMAGING Diagnoses Smoker Encounter for screening for lung cancer Procedures CT LUNG SCREEN WO IVCON COMPUTED TOMOGRAPHY THORAX LW DOSE LNG CA SCR Arcelia Shah, HOME SERVICE DEMONSTRATOR.TILE LAYER DRAINAGE [address] [place] [address] Ct Imaging Referral ID Status Reason Start Date Expiration Date V isits Requested Visits Authorized [id number] Closed Auto-Generate d Referral 02/28/2022 04/29/2022 1 1 Specialty Diagnoses / Procedures Referred By Contac t Referred To Contact Diagnoses Moderate persistent asthma, unspecified whether complicated Dana Hensley MD [address] [place] [address] Referral ID Status Reason Start Date Expiration Date Visits Re quested Visits Authorized [id number] Closed 1 1 Specialty Diagnoses / Procedures Referred By Contac t Referred To Contact Orthopedics Diagnoses Left hand pain Procedures CONSULT TO ORTHOPAEDICS OFFICE/OUTPATIENT [facility] 60 MINUTES Marianna Yap, HOME SERVICE DEMONSTRATOR.TILE LAYER DRAINAGE [address] [place] [address] Referral ID Status Reason Start Date Expiration Date Visits Requested Visits Authorized [id number] Authorized PCP Requested Referral 08/23/2023 08/22/2024 1 1 Specialty Diagnoses / Procedures Referred By Contac t Referred To Contact [facility] Diagnoses Screening for colon cancer Procedures COLONOSCOPY SCREENING COLONOSCOPY FLX DX W/COLLJ SPEC WHEN PFRMD Marianna Yap HOME SERVICE DEMONSTRATOR.TILE LAYER DRAINAGE [address] [place] [address] [facility] [address] [place] [address] Referral ID Status Reason Start Date Expiration Date Visits Requested Visits Authorized [id number] Pending Review Auto-Generat ed Referral 08/23/2023 08/22/2024 1 1 Specialty Diagnoses / Procedures Referred By Contac t Referred To Contact Ophthalmology Diagnoses Type 2 diabetes mellitus without complication, without long-term current use of insulin (HCC) Procedures CONSULT TO OPHTHALMOLOGY OFFICE/OUTPATIENT [facility] 60 MINUTES Marianna Yap, HOME SERVICE DEMONSTRATOR.TILE LAYER DRAINAGE [address] [place] [address] Referral ID Status Reason Start Date Expiration Date Visits Requested Visits Authorized [id number] Authorized PCP Requested Referral 08/23/2023 08/22/2024 1 1 Specialty Diagnoses / Procedures Referred By Contac t Referred To Contact CT IMAGING Diagnoses Smoker Encounter for screening for malignant neoplasm of lung Procedures CT LUNG SCREEN WO IVCON COMPUTED TOMOGRAPHY THORAX LW DOSE LNG CA SCR Arcelia Shah, HOME SERVICE DEMONSTRATOR.TILE LAYER DRAINAGE [address] [place] [address] [place] [address] Referral ID Status Reason Start Date Expiration Date Visits Requested Visits Authorized [id number] Pending Review Auto-Generat ed Referral 12/05/2023 01/03/2025 1 1 Specialty Diagnoses / Procedures Referred By Contac t Referred To Contact Orthopedics Diagnoses Chronic pain of left knee Procedures CONSULT TO ORTHOPAEDICS OFFICE/OUTPATIENT [facility] 60 MINUTES Eddie Rodríguez, HOME SERVICE DEMONSTRATOR.FOOD AND BEVERAGE ASSISTANT MANAGER [address] [place] [address] Referral ID Status Reason Start Date Expiration Date Visits Requested Visits Authorized [id number] Authorized PCP Requested Referral 12/05/2023 12/04/2024 1 1 Specialty Diagnoses / Procedures Referred By Contac t Referred To Contact [facility] Diagnoses Chronic pain of left knee Tear of medial meniscus of left knee, current, unspecified tear type, initial encounter Procedures CONSULT TO PHYSICAL THERAPY PHYSICAL THERAPY EVALUATION HIGH COMPLEX 45 MINS Smiley De La Paz DO [address] [place] [address] [facility] [address] [place] [address] Referral ID Status Reason Start Date Expiration Date Visits Requested Visits Authorized [id number] Authorized Auto-Generat ed Referral 03/13/2023 03/12/2024 1 1 Referral ID Status Reason Start Date Expiration Date V isits Requested Visits Authorized [id number] Closed Auto-Generate d Referral 12/13/2023 02/11/2024 1 1 Specialty Diagnoses / Procedures Referred By Contac t Referred To Contact CT IMAGING Diagnoses Encounter for screening for lung cancer Smoker Procedures CT LUNG SCREEN WO IVCON COMPUTED TOMOGRAPHY THORAX LW DOSE LNG CA SCR Melony- Terrence Flores, HOME SERVICE DEMONSTRATOR.TILE LAYER DRAINAGE [address] [place] [address] [place] [address] Referral ID Status Reason Start Date Expiration Date Visits Requested Visits Authorized [id number] Pending Review Auto-Generat ed Referral 01/25/2025 1 1 Specialty Diagnoses / Procedures Referred By Contac t Referred To Contact General Surgery Diagnoses Epigastric abdominal pain Nausea Procedures CONSULT TO GENERAL SURGERY OFFICE/OUTPATIENT [facility] 60 MINUTES Marianna Yap, HOME SERVICE DEMONSTRATOR.TILE LAYER DRAINAGE [address] [place] [address] Referral ID Status Reason Start Date Expiration Date V isits Requested Visits Authorized [id number] Closed PCP Requested Referral 01/08/2024 01/07/2025 1 1 Chief Complaint and Reason for Visit Chief Complaint abd pain Chief Complaint chest pain Additional Source Comments INFORMATION SOURCE (unrecogn ized section and content) DATE CREATED AUTHOR 08/30/2017 [facility] DATE CREATED AUTHOR AUTHOR'S ORGANIZ ATION 09/01/2017 [facility] DATE CREATED AUTHOR AUTHOR'S ORGANIZ ATION [facility]2017 [facility] DATE CREATED AUTHOR AUTHOR'S ORGANIZ ATION 02/19/2018 [facility] DATE CREATED AUTHOR AUTHOR'S ORGANIZ ATION 06/27/2018 [facility] DATE CREATED AUTHOR AUTHOR'S ORGANIZ ATION 07/20/2020 [facility] DATE CREATED AUTHOR AUTHOR'S ORGANIZ ATION 02/03/2023 [facility] DATE CREATED AUTHOR AUTHOR'S ORGANIZ ATION 03/05/2023 [facility] ([place]) DATE CREATED AUTHOR AUTHOR'S ORGANIZ ATION 12/30/2023 [facility] DATE CREATED AUTHOR AUTHOR'S ORGANIZ ATION 01/26/2024 [facility] Source Comments (unrecognize d section and content) In the event this informatio n is protected by the Federal Confidentiality of Alcohol and Drug Abuse Patient Records regulations: The Federal rules restrict any use of the information to criminally investigate or prosecute any alcohol or drug abuse patient.[facility] the event this information is protected by the Federal Confidentiality of Alcohol and Drug Abuse Patient Records regulations: The Federal rules restrict any use of the information to criminally investigate or prosecute any alcohol or drug abuse patient.[facility] the event this information is protected by the Federal Confidentiality of Alcohol and Drug Abuse Patient Records regulations: The Federal rules restrict any use of the information to criminally investigate or prosecute any alcohol or drug abuse patient.[facility] the event this information is protected by the Federal Confidentiality of Alcohol and Drug Abuse Patient Records regulations: The Federal rules restrict any use of the information to criminally investigate or prosecute any alcohol or drug abuse patient.[facility] the event this information is protected by the Federal Confidentiality of Alcohol and Drug Abuse Patient Records regulations: The Federal rules restrict any use of the information to criminally investigate or prosecute any alcohol or drug abuse patient.[facility] HospitalIn the event this information is protected by the Federal Confidentiality of Alcohol and Drug Abuse Patient Records regulations: The Federal rules restrict any use of the information to criminally investigate or prosecute any alcohol or drug abuse patient.[facility] HospitalIn the event this information is protected by the Federal Confidentiality of Alcohol and Drug Abuse Patient Records regulations: The Federal rules restrict any use of the information to criminally investigate or prosecute any alcohol or drug abuse patient.[facility] HospitalIn the event this information is protected by the Federal Confidentiality of Alcohol and Drug Abuse Patient Records regulations: The Federal rules restrict any use of the information to criminally investigate or prosecute any alcohol or drug abuse patient.[facility] HospitalIn the event this information is protected by the Federal Confidentiality of Alcohol and Drug Abuse Patient Records regulations: The Federal rules restrict any use of the information to criminally investigate or prosecute any alcohol or drug abuse patient.[facility] HospitalIn the event this information is protected by the Federal Confidentiality of Alcohol and Drug Abuse Patient Records regulations: The Federal rules restrict any use of the information to criminally investigate or prosecute any alcohol or drug abuse patient.[facility] HospitalIn the event this information is protected by the Federal Confidentiality of Alcohol and Drug Abuse Patient Records regulations: The Federal rules restrict any use of the information to criminally investigate or prosecute any alcohol or drug abuse patient.[facility] HospitalIn the event this information is protected by the Federal Confidentiality of Alcohol and Drug Abuse Patient Records regulations: The Federal rules restrict any use of the information to criminally investigate or prosecute any alcohol or drug abuse patient.[facility] HospitalIn the event this information is protected by the Federal Confidentiality of Alcohol and Drug Abuse Patient Records regulations: The Federal rules restrict any use of the information to criminally investigate or prosecute any alcohol or drug abuse patient.[facility] HospitalIn the event this information is protected by the Federal Confidentiality of Alcohol and Drug Abuse Patient Records regulations: The Federal rules restrict any use of the information to criminally investigate or prosecute any alcohol or drug abuse patient.[facility] HospitalIn the event this information is protected by the Federal Confidentiality of Alcohol and Drug Abuse Patient Records regulations: The Federal rules restrict any use of the information to criminally investigate or prosecute any alcohol or drug abuse patient.[facility] HospitalIn the event this information is protected by the Federal Confidentiality of Alcohol and Drug Abuse Patient Records regulations: The Federal rules restrict any use of the information to criminally investigate or prosecute any alcohol or drug abuse patient.[facility] HospitalIn the event this information is protected by the Federal Confidentiality of Alcohol and Drug Abuse Patient Records regulations: The Federal rules restrict any use of the information to criminally investigate or prosecute any alcohol or drug abuse patient.[facility] HospitalIn the event this information is protected by the Federal Confidentiality of Alcohol and Drug Abuse Patient Records regulations: The Federal rules restrict any use of the information to criminally investigate or prosecute any alcohol or drug abuse patient.[facility] HospitalIn the event this information is protected by the Federal Confidentiality of Alcohol and Drug Abuse Patient Records regulations: The Federal rules restrict any use of the information to criminally investigate or prosecute any alcohol or drug abuse patient.[facility] HospitalIn the event this information is protected by the Federal Confidentiality of Alcohol and Drug Abuse Patient Records regulations: The Federal rules restrict any use of the information to criminally investigate or prosecute any alcohol or drug abuse patient.[facility] HospitalIn the event this information is protected by the Federal Confidentiality of Alcohol and Drug Abuse Patient Records regulations: The Federal rules restrict any use of the information to criminally investigate or prosecute any alcohol or drug abuse patient.[facility] HospitalIn the event this information is protected by the Federal Confidentiality of Alcohol and Drug Abuse Patient Records regulations: The Federal rules restrict any use of the information to criminally investigate or prosecute any alcohol or drug abuse patient.[facility] HospitalIn the event this information is protected by the Federal Confidentiality of Alcohol and Drug Abuse Patient Records regulations: The Federal rules restrict any use of the information to criminally investigate or prosecute any alcohol or drug abuse patient.[facility] HospitalIn the event this information is protected by the Federal Confidentiality of Alcohol and Drug Abuse Patient Records regulations: The Federal rules restrict any use of the information to criminally investigate or prosecute any alcohol or drug abuse patient.[facility] HospitalIn the event this information is protected by the Federal Confidentiality of Alcohol and Drug Abuse Patient Records regulations: The Federal rules restrict any use of the information to criminally investigate or prosecute any alcohol or drug abuse patient.[facility] HospitalIn the event this information is protected by the Federal Confidentiality of Alcohol and Drug Abuse Patient Records regulations: The Federal rules restrict any use of the information to criminally investigate or prosecute any alcohol or drug abuse patient.[facility] HospitalIn the event this information is protected by the Federal Confidentiality of Alcohol and Drug Abuse Patient Records regulations: The Federal rules restrict any use of the information to criminally investigate or prosecute any alcohol or drug abuse patient.[facility] HospitalIn the event this information is protected by the Federal Confidentiality of Alcohol and Drug Abuse Patient Records regulations: The Federal rules restrict any use of the information to criminally investigate or prosecute any alcohol or drug abuse patient.[facility] HospitalIn the event this information is protected by the Federal Confidentiality of Alcohol and Drug Abuse Patient Records regulations: The Federal rules restrict any use of the information to criminally investigate or prosecute any alcohol or drug abuse patient.[facility] HospitalIn the event this information is protected by the Federal Confidentiality of Alcohol and Drug Abuse Patient Records regulations: The Federal rules restrict any use of the information to criminally investigate or prosecute any alcohol or drug abuse patient.[facility] HospitalIn the event this information is protected by the Federal Confidentiality of Alcohol and Drug Abuse Patient Records regulations: The Federal rules restrict any use of the information to criminally investigate or prosecute any alcohol or drug abuse patient.[facility] HospitalIn the event this information is protected by the Federal Confidentiality of Alcohol and Drug Abuse Patient Records regulations: The Federal rules restrict any use of the information to criminally investigate or prosecute any alcohol or drug abuse patient.[facility] HospitalIn the event this information is protected by the Federal Confidentiality of Alcohol and Drug Abuse Patient Records regulations: The Federal rules restrict any use of the information to criminally investigate or prosecute any alcohol or drug abuse patient.[facility] HospitalIn the event this information is protected by the Federal Confidentiality of Alcohol and Drug Abuse Patient Records regulations: The Federal rules restrict any use of the information to criminally investigate or prosecute any alcohol or drug abuse patient.[facility] HospitalIn the event this information is protected by the Federal Confidentiality of Alcohol and Drug Abuse Patient Records regulations: The Federal rules restrict any use of the information to criminally investigate or prosecute any alcohol or drug abuse patient.[facility] HospitalIn the event this information is protected by the Federal Confidentiality of Alcohol and Drug Abuse Patient Records regulations: The Federal rules restrict any use of the information to criminally investigate or prosecute any alcohol or drug abuse patient.[facility] HospitalIn the event this information is protected by the Federal Confidentiality of Alcohol and Drug Abuse Patient Records regulations: The Federal rules restrict any use of the information to criminally investigate or prosecute any alcohol or drug abuse patient.[facility] HospitalIn the event this information is protected by the Federal Confidentiality of Alcohol and Drug Abuse Patient Records regulations: The Federal rules restrict any use of the information to criminally investigate or prosecute any alcohol or drug abuse patient.[facility] HospitalIn the event this information is protected by the Federal Confidentiality of Alcohol and Drug Abuse Patient Records regulations: The Federal rules restrict any use of the information to criminally investigate or prosecute any alcohol or drug abuse patient.[facility] HospitalIn the event this information is protected by the Federal Confidentiality of Alcohol and Drug Abuse Patient Records regulations: The Federal rules restrict any use of the information to criminally investigate or prosecute any alcohol or drug abuse patient.[facility] HospitalIn the event this information is protected by the Federal Confidentiality of Alcohol and Drug Abuse Patient Records regulations: The Federal rules restrict any use of the information to criminally investigate or prosecute any alcohol or drug abuse patient.[facility] HospitalIn the event this information is protected by the Federal Confidentiality of Alcohol and Drug Abuse Patient Records regulations: The Federal rules restrict any use of the information to criminally investigate or prosecute any alcohol or drug abuse patient.[facility] HospitalIn the event this information is protected by the Federal Confidentiality of Alcohol and Drug Abuse Patient Records regulations: The Federal rules restrict any use of the information to criminally investigate or prosecute any alcohol or drug abuse patient.[facility] HospitalIn the event this information is protected by the Federal Confidentiality of Alcohol and Drug Abuse Patient Records regulations: The Federal rules restrict any use of the information to criminally investigate or prosecute any alcohol or drug abuse patient.[facility] HospitalIn the event this information is protected by the Federal Confidentiality of Alcohol and Drug Abuse Patient Records regulations: The Federal rules restrict any use of the information to criminally investigate or prosecute any alcohol or drug abuse patient.[facility] HospitalIn the event this information is protected by the Federal Confidentiality of Alcohol and Drug Abuse Patient Records regulations: The Federal rules restrict any use of the information to criminally investigate or prosecute any alcohol or drug abuse patient.[facility] HospitalIn the event this information is protected by the Federal Confidentiality of Alcohol and Drug Abuse Patient Records regulations: The Federal rules restrict any use of the information to criminally investigate or prosecute any alcohol or drug abuse patient.[facility] HospitalIn the event this information is protected by the Federal Confidentiality of Alcohol and Drug Abuse Patient Records regulations: The Federal rules restrict any use of the information to criminally investigate or prosecute any alcohol or drug abuse patient.[facility] HospitalIn the event this information is protected by the Federal Confidentiality of Alcohol and Drug Abuse Patient Records regulations: The Federal rules restrict any use of the information to criminally investigate or prosecute any alcohol or drug abuse patient.[facility] HospitalIn the event this information is protected by the Federal Confidentiality of Alcohol and Drug Abuse Patient Records regulations: The Federal rules restrict any use of the information to criminally investigate or prosecute any alcohol or drug abuse patient.[facility] HospitalIn the event this information is protected by the Federal Confidentiality of Alcohol and Drug Abuse Patient Records regulations: The Federal rules restrict any use of the information to criminally investigate or prosecute any alcohol or drug abuse patient.[facility] HospitalIn the event this information is protected by the Federal Confidentiality of Alcohol and Drug Abuse Patient Records regulations: The Federal rules restrict any use of the information to criminally investigate or prosecute any alcohol or drug abuse patient.[facility] HospitalIn the event this information is protected by the Federal Confidentiality of Alcohol and Drug Abuse Patient Records regulations: The Federal rules restrict any use of the information to criminally investigate or prosecute any alcohol or drug abuse patient.[facility] HospitalIn the event this information is protected by the Federal Confidentiality of Alcohol and Drug Abuse Patient Records regulations: The Federal rules restrict any use of the information to criminally investigate or prosecute any alcohol or drug abuse patient.[facility] HospitalIn the event this information is protected by the Federal Confidentiality of Alcohol and Drug Abuse Patient Records regulations: The Federal rules restrict any use of the information to criminally investigate or prosecute any alcohol or drug abuse patient.[facility] HospitalIn the event this information is protected by the Federal Confidentiality of Alcohol and Drug Abuse Patient Records regulations: The Federal rules restrict any use of the information to criminally investigate or prosecute any alcohol or drug abuse patient.[facility] HospitalIn the event this information is protected by the Federal Confidentiality of Alcohol and Drug Abuse Patient Records regulations: The Federal rules restrict any use of the information to criminally investigate or prosecute any alcohol or drug abuse patient.[facility] Reason for Visit (unrecogniz ed section and content) Reason Comments Radiology US Specialty Diagnoses / Procedures Referred By Contac t Referred To Contact [facility] IM[facility] Diagnoses Abnormal mammogram of left breast Procedures US BREAST LTD LEFT US BREAST UNI REAL TIME WITH IMAGE LIMITED Leonid Rice MD [address] [place] [address] Br Imaging [address] [place] [address] Referral ID Status Reason Start Date Expiration Date V isits Requested Visits Authorized [id number] Closed Auto-Generate d Referral 09/11/2023 10/10/2024 1 1 Reason Comments Refill Request Reason Comments FYI-No Action Needed Reason Comments F/U 6 months Specialty Diagnoses / Procedures Referred By Contac t Referred To Contact US IMAGING Diagnoses Epigastric abdominal pain Procedures US ABD RT UPPER QUADRANT US ABDOMINAL REAL TIME W/IMAGE LIMITED Leonid Rice MD [address] [place] [address] Us Imaging Referral ID Status Reason Start Date Expiration Date V isits Requested Visits Authorized [id number] Closed Auto-Generate d Referral 04/02/2021 05/02/2022 1 [...] CENTER 60-74 MINUTES Leonid Rice MD [address] [place] [address] Referral ID Status Reason Start Date Expiration Date V isits Requested Visits Authorized [id number] Closed PCP Requested Referral 02/11/2022 02/11/2023 1 1 Specialty Diagnoses / Procedures Referred By Contac t Referred To Contact CT IMAGING Diagnoses Smoker Encounter for screening for lung cancer Procedures CT LUNG SCREEN WO IVCON COMPUTED TOMOGRAPHY THORAX LW DOSE LNG CA SCR C- RadhaArcelia de la cruz, HOME SERVICE DEMONSTRATOR.TILE LAYER DRAINAGE [address] [place] [address] Ct Imaging Referral ID Status Reason Start Date Expiration Date V isits Requested Visits Authorized [id number] Closed Auto-Generate d Referral 02/28/2022 04/29/2022 1 [...] NEW HIGH MDM 60 MINUTES Eddie Rodríguez, HOME SERVICE DEMONSTRATOR.FOOD AND BEVERAGE ASSISTANT MANAGER [address] [place] [address] Referral ID Status Reason Start Date Expiration Date V isits Requested Visits Authorized [id number] Closed PCP Requested Referral 12/05/2023 12/04/2024 1 1 Specialty Diagnoses / Procedures Referred By Contac t Referred To Contact CT IMAGING Diagnoses Smoker Encounter for screening for malignant neoplasm of lung Procedures CT LUNG SCREEN WO IVCON COMPUTED TOMOGRAPHY THORAX LW DOSE LNG CA SCR Melony- Arcelia Garcia, HOME SERVICE DEMONSTRATOR.TILE LAYER DRAINAGE [address] [place] [address] [place] [address] Referral ID Status Reason Start Date Expiration Date V isits Requested Visits Authorized [id number] Closed Auto-Generate d Referral 12/13/2023 02/11/2024 1 1 Reason Comments Follow Up ct scan Reason Comments Follow Up Reason Comments New Patient Specialty Diagnoses / Procedures Referred By Contac t Referred To Contact General Surgery Diagnoses Epigastric abdominal pain Nausea Procedures CONSULT TO GENERAL SURGERY OFFICE/OUTPATIENT NEW HIGH MDM 60 MINUTES Marianna Yap, HOME SERVICE DEMONSTRATOR.TILE LAYER DRAINAGE [address] [place] [address] Referral ID Status Reason Start Date Expiration Date V isits Requested Visits Authorized [id number] Closed PCP Requested Referral 01/08/2024 01/07/2025 1 1 Reason Comments PT Eval Specialty Diagnoses / Procedures Referred By Contac t Referred To Contact Physical Therapy / PHYSICAL THERAPY Diagnoses Chronic pain of left knee [M25.562, G89.29] Tear of medial meniscus of left knee, current, unspecified tear type, initial encounter [S83.242A] Procedures NEW RS PT ORTH MSK Smiley De La Paz, DO [address] [place] [address] Ruby Kirkpatrick, PT [address] [place] [address] Referral ID Status Reason Start Date Expiration Date V isits Requested Visits Authorized [id number] Authorized 03/13/2023 03/12/2024 99 99 Care Teams (unrecognized sec tion and content) Vacuum System Tester Relationship Specialty Start Date End Date Leonid Rice MD [address] [place] [address] PCP - General Internal Medicine 10/09/18 [facility] [address] [place] [address] Pharmacist Pharmacy 10/22/20 Vacuum System Tester Relationship Specialty Start Date End Date Leonid Rice MD [address] [place] [address] PCP - General Internal Medicine 10/09/18 [facility] [address] [place] [address] Pharmacist Pharmacy 10/22/20 Vacuum System Tester Relationship Specialty Start Date End Date Leonid Rice MD [address] [place] [address] PCP - General Internal Medicine 10/09/18 Cheshire Erica, [facility] [address] [place] [address] Pharmacist Pharmacy 10/22/20 Vacuum System Tester Relationship Specialty Start Date End Date Leonid Rice MD [address] [facility] [place] [address] PCP - General Internal Medicine 10/09/18 CheshireAriaErica, [facility] [address] [facility] [place] [address] Pharmacist Pharmacy 10/22/20 Vacuum System Tester Relationship Specialty Start Date End Date Leonid Rice MD [address] [facility] [place] [address] PCP - General Internal Medicine 10/09/18 CheshireAriaErica, [facility] [address] [facility] [place] [address] Pharmacist Pharmacy 10/22/20 Vacuum System Tester Relationship Specialty Start Date End Date Leonid Rice MD [address] [facility] [place] [address] PCP - General Internal Medicine 10/09/18 CheshireErica, [facility] [address] [facility] [place] [address] Pharmacist Pharmacy 10/22/20 Vacuum System Tester Relationship Specialty Start Date End Date Leonid Rice MD [address] [facility] [place] [address] PCP - General Internal Medicine 10/09/18 CheshireErica, [facility] [address] [facility] [place] [address] Pharmacist Pharmacy 10/22/20 Vacuum System Tester Relationship Specialty Start Date End Date Leonid Rice MD [address] [facility] [place] [address] PCP - General Internal Medicine 10/09/18 Cheshire, Erica, [facility] [address] [place] [address] Pharmacist Pharmacy 10/22/20 Vacuum System Tester Relationship Specialty Start Date End Date Leonid Rice MD [address] [facility] [place] [address] PCP - General Internal Medicine 10/09/18 Erica Vicente, [facility] [address] [facility] [place] [address] Pharmacist Pharmacy 10/22/20 Vacuum System Tester Relationship Specialty Start Date End Date Leonid Rice MD [address] [facility] [place] [address] PCP - General Internal Medicine 10/09/18 CheshireAriaErica, [facility] [address] [facility] [place] [address] Pharmacist Pharmacy 10/22/20 Vacuum System Tester Relationship Specialty Start Date End Date Leonid Rice MD [address] [facility] [place] [address] PCP - General Internal Medicine 10/09/18 Erica Vicente, [facility] [address] [facility] [place] [address] Pharmacist Pharmacy 10/22/20 Vacuum System Tester Relationship Specialty Start Date End Date Leonid Rice MD [address] [facility] [place] [address] PCP - General Internal Medicine 10/09/18 CheshireErica, [facility] [address] [facility] [place] [address] Pharmacist Pharmacy 10/22/20 Vacuum System Tester Relationship Specialty Start Date End Date Leonid Rice MD [address] [place] [address] PCP - General Internal Medicine 10/09/18 CheshireErica, [facility] [address] [place] [address] Pharmacist Pharmacy 10/22/20 Vacuum System Tester Relationship Specialty Start Date End Date Leonid Rice MD [address] [place] [address] PCP - General Internal Medicine 10/09/18 CheshireErica, [facility] [address] [place] [address] Pharmacist Pharmacy 10/22/20 Vacuum System Tester Relationship Specialty Start Date End Date Leonid Rice MD [address] [place] [address] PCP - General Internal Medicine 10/09/18 CheshireErica, [facility] [address] [place] [address] Pharmacist Pharmacy 10/22/20 Vacuum System Tester Relationship Specialty Start Date End Date Leonid Rice MD [address] [place] [address] PCP - General Internal Medicine 10/09/18 Cheshire Erica, [facility] [address] [place] [address] Pharmacist Pharmacy 10/22/20 Vacuum System Tester Relationship Specialty Start Date End Date Leonid Rice MD [address] [place] [address] PCP - General Internal Medicine 10/09/18 Erica Vicente, [facility] [address] [place] [address] Pharmacist Pharmacy 10/22/20 Vacuum System Tester Relationship Specialty Start Date End Date Leonid Rice MD [address] [place] [address] PCP - General Internal Medicine 10/09/18 Cheshire Erica, [facility] [address] [place] [address] Pharmacist Pharmacy 10/22/20 Vacuum System Tester Relationship Specialty Start Date End Date Leonid Rice MD [address] [place] [address] PCP - General Internal Medicine 10/09/18 Cheshire Erica, [facility] [address] [place] [address] Pharmacist Pharmacy 10/22/20 Vacuum System Tester Relationship Specialty Start Date End Date Leonid Rice MD [address] [place] [address] PCP - General Internal Medicine 10/09/18 Cheshire Erica, [facility] [address] [place] [address] Pharmacist Pharmacy 10/22/20 Vacuum System Tester Relationship Specialty Start Date End Date Leonid Rice MD [address] [place] [address] PCP - General Internal Medicine 10/09/18 Cheshire Erica, [facility] [address] [place] [address] Pharmacist Pharmacy 10/22/20 Vacuum System Tester Relationship Specialty Start Date End Date Leonid Rice MD [address] [place] [address] PCP - General Internal Medicine 10/09/18 Jules Erica, [facility] [address] [place] [address] Pharmacist Pharmacy 10/22/20 Vacuum System Tester Relationship Specialty Start Date End Date Leonid Rice MD [address] [place] [address] PCP - General Internal Medicine 10/09/18 CheshireErica, [facility] [address] [place] [address] Pharmacist Pharmacy 10/22/20 Team Status: Active Member Role Status Dates Dr. Micki Seth MD Family Provider Active Dr. Leonid Rice MD Primary Care Provider Active Team Status: Inactive Member Role Status Dates Dr. Leonid Rice MD Primary Care Provider Active Dr. Ronak Marte DO Emergency Provider Active Vacuum System Tester Relationship Specialty Start Date End Date Leonid Rice MD [address] [place] [address] PCP - General Internal Medicine 10/09/18 JulesAria roqueily, [facility] [address] [place] [address] Pharmacist Pharmacy 10/22/20 Vacuum System Tester Relationship Specialty Start Date End Date Leonid Rice MD [address] [place] [address] PCP - General Internal Medicine 10/09/18 Cheshire Erica, [facility] [address] [place] [address] Pharmacist Pharmacy 10/22/20 Vacuum System Tester Relationship Specialty Start Date End Date Leonid Rice MD [address] [place] [address] PCP - General Internal Medicine 10/09/18 Cheshire Erica, [facility] [address] [place] [address] Pharmacist Pharmacy 10/22/20 Vacuum System Tester Relationship Specialty Start Date End Date Leonid Rice MD [address] [place] [address] PCP - General Internal Medicine 10/09/18 CheshireErica, [facility] [address] [place] [address] Pharmacist Pharmacy 10/22/20 Vacuum System Tester Relationship Specialty Start Date End Date Leonid Rice MD [address] [place] [address] PCP - General Internal Medicine 10/09/18 CheshireErica, [facility] [address] [place] [address] Pharmacist Pharmacy 10/22/20 Vacuum System Tester Relationship Specialty Start Date End Date Leonid Rice MD [address] [place] [address] PCP - General Internal Medicine 10/09/18 CheshireErica, [facility] [address] [place] [address] Pharmacist Pharmacy 10/22/20 Vacuum System Tester Relationship Specialty Start Date End Date Leonid Rice MD [address] [place] [address] PCP - General Internal Medicine 10/09/18 CheshireErica, [facility] [address] [place] [address] Pharmacist Pharmacy 10/22/20 Vacuum System Tester Relationship Specialty Start Date End Date Leonid Rice MD [address] [place] [address] PCP - General Internal Medicine 10/09/18 CheshireErica, [facility] [address] [place] [address] Pharmacist Pharmacy 10/22/20 Vacuum System Tester Relationship Specialty Start Date End Date Leonid Rice MD [address] [place] [address] PCP - General Internal Medicine 10/09/18 CheshireAriaErica, [facility] [address] [place] [address] Pharmacist Pharmacy 10/22/20 Vacuum System Tester Relationship Specialty Start Date End Date Leonid Rice MD [address] [place] [address] PCP - General Internal Medicine 10/09/18 CheshireErica, [facility] [address] [place] [address] Pharmacist Pharmacy 10/22/20 Vacuum System Tester Relationship Specialty Start Date End Date Leonid Rice MD [address] [place] [address] PCP - General Internal Medicine 10/09/18 CheshireErica, [facility] [address] [place] [address] Pharmacist Pharmacy 10/22/20 Vacuum System Tester Relationship Specialty Start Date End Date Leonid Rice MD [address] [place] [address] PCP - General Internal Medicine 10/09/18 Cheshire Erica, [facility] [address] [place] [address] Pharmacist Pharmacy 10/22/20 Vacuum System Tester Relationship Specialty Start Date End Date Leonid Rice MD [address] [place] [address] PCP - General Internal Medicine 10/09/18 Cheshire Erica, [facility] [address] [place] [address] Pharmacist Pharmacy 10/22/20 Vacuum System Tester Relationship Specialty Start Date End Date Leonid Rice MD [address] [place] [address] PCP - General Internal Medicine 10/09/18 Cheshire Erica, [facility] [address] [place] [address] Pharmacist Pharmacy 10/22/20 Vacuum System Tester Relationship Specialty Start Date End Date Leonid Rice MD [address] [place] [address] PCP - General Internal Medicine 10/09/18 Cheshire Erica, [facility] [address] [place] [address] Pharmacist Pharmacy 10/22/20 Vacuum System Tester Relationship Specialty Start Date End Date Leonid Rice MD [address] [place] [address] PCP - General Internal Medicine 10/09/18 JulesErica, [facility] [address] [place] [address] Pharmacist Pharmacy 10/22/20 Vacuum System Tester Relationship Specialty Start Date End Date Leonid Rice MD [address] [place] [address] PCP - General Internal Medicine 10/09/18 Cheshire Erica, [facility] [address] [place] [address] Pharmacist Pharmacy 10/22/20 Vacuum System Tester Relationship Specialty Start Date End Date Leonid Rice MD [address] [place] [address] PCP - General Internal Medicine 10/09/18 Cheshire Erica, [facility] [address] [place] [address] Pharmacist Pharmacy 10/22/20 Vacuum System Tester Relationship Specialty Start Date End Date Leonid Rice MD [address] [place] [address] PCP - General Internal Medicine 10/09/18 Cheshire Erica, [facility] [address] [place] [address] Pharmacist Pharmacy 10/22/20 Vacuum System Tester Relationship Specialty Start Date End Date Leonid Rice MD [address] [place] [address] PCP - General Internal Medicine 10/09/18 Cheshire Erica, [facility] [address] [place] [address] Pharmacist Pharmacy 10/22/20 Vacuum System Tester Relationship Specialty Start Date End Date Leonid Rice MD [address] [place] [address] PCP - General Internal Medicine 10/09/18 CheshireErica, [facility] [address] [place] [address] Pharmacist Pharmacy 10/22/20 Vacuum System Tester Relationship Specialty Start Date End Date Leonid Rice MD [address] [place] [address] PCP - General Internal Medicine 10/09/18 CheshireErica, [facility] [address] [place] [address] Pharmacist Pharmacy 10/22/20 Vacuum System Tester Relationship Specialty Start Date End Date Leonid Rice MD [address] [place] [address] PCP - General Internal Medicine 10/09/18 CheshireErica, [facility] [address] [place] [address] Pharmacist Pharmacy 10/22/20 Vacuum System Tester Relationship Specialty Start Date End Date Leonid Rice MD [address] [place] [address] PCP - General Internal Medicine 10/09/18 CheshireErica, [facility] [address] [place] [address] Pharmacist Pharmacy 10/22/20 Goals (unrecognized section and [...] BE BASED ON THE PRIMARY CLINICAL RECORDS. [facility]. provides no warranty or guarantee of the accuracy or completeness of information in this document.
[2024-08-25] MEDS: Benzonatate 100 MG Capsule PO (23:02)
[2024-08-25] MEDS: Acetaminophen 325 MG Tablet 650 MG PO (23:02)
[2024-08-25] MEDS: guaiFENesin 1,200 MG Tablet 1200 MG PO (23:03)
[2024-08-25] MEDS: traZODone 100 MG Tablet 200 MG PO (23:03)
[2024-08-25] MEDS: FLUoxetine 20 MG Capsule PO (23:04)
[2024-08-25] MEDS: Topiramate 25 MG Tablet PO (23:04)
[2024-08-25] MEDS: Enoxaparin 40 MG/0.4 ML Syringe SC (23:04)
[2024-08-25] MEDS: Methylprednisolone Sod Succ 40 MG/ML VIAL IV (23:05)
[2024-08-25] MEDS: Furosemide 20 MG/2 ML VIAL IV (23:17)
[2024-08-25] MEDS: ALPRAZolam 0.5 MG Tablet 1 MG PO (23:17)
[2024-08-26] VITALS (10 sets, daily range): BP systolic 112–133; BP diastolic 57–71; PULSE 71–105; RESP 16–24; TEMP 36.6–36.9; O2SAT 93–98; BMI 40.8
[2024-08-26 05:27] LABS: Absolute Lymphocyte Count 1.17 X10^3/uL (0.83-4.51); Absolute Neutrophil Count 6.3 X10^3/uL (2.0-7.7); Basophil# 0.01 X10^3/uL; Basophil% 0.1 % (0-1); Hematocrit 41.7 % (37-47); Hemoglobin 13.9 g/dL (12.0-15.0); Lymphocyte # 1.17 X10^3/ul (0.83-4.51); Lymphocyte % 15.4 % (19-41); Mean Corp Hgb Conc 33.3 g/dL (32-36); Mean Corpuscular Volume 87.1 fL (81-99); Mean Platelet Vol. 11.3 fl (6.2-12.0); Monocyte# 0.08 X10^3/uL; Monocyte% 1.1 % (0-10); NRBC Flagged by Analyzer 0 % (0-5); Neutrophil # 6.26 X10^3/uL (2.7-7.7); Neutrophil % 82.5 % (47-70); Platelet Count 204 K/mm3 (150-450); RBC Distribution Width CV 13.1 % (11.6-14.6); RBC Distribution Width SD 41.5 fl (35.1-43.9); Red Blood Count 4.79 M/mm3 (4.2-5.4); White Blood Count 7.6 K/mm3 (4.4-11.0)
[2024-08-26] MEDS: Methylprednisolone Sod Succ 40 MG/ML VIAL IV ×3 (05:55→20:53)
[2024-08-26 06:00] LABS: ALB/GLOB Ratio 1.2 RATIO (0.9-2.4); AST(SGOT) 18 U/L (<=31); Alanine Aminotransfer ALT/SGPT 16 U/L (<=34); Albumin, Serum 3.8 g/dL (3.4-4.8); Alkaline Phosphatase 138 U/L (35-104); Anion Gap 11 (5-15); BUN 10 mg/dL (4-19); BUN/Creat Ratio 12.7 RATIO (10-20); Calcium,Total 9.2 mg/dL (7.6-11.0); Carbon Dioxide 23.6 mmol/L (21.0-32.0); Chloride 104 mmol/L (98-108); Creatinine, Serum 0.78 mg/dL (0.70-1.20); EST Glomerular Filtration Rate 86 (>60); Estimated Creatinine Clearance 77.79 ml/min (50-250); Globulin 3.1 g/dL (2.2-4.2); Glucose 256 mg/dL (70-99); Magnesium 2.2 mg/dL (1.5-2.2); Phosphorus 3.4 mg/dL (2.7-4.5); Potassium 3.7 mmol/L (3.3-5.1); Sodium Level 139 mmol/L (133-145); Total Bilirubin 0.27 mg/dL (0.00-1.30)
[2024-08-26] MEDS: guaiFENesin 1,200 MG Tablet 1200 MG PO ×2 (09:09→20:53)
[2024-08-26] MEDS: Enoxaparin 40 MG/0.4 ML Syringe SC ×2 (09:09→20:54)
[2024-08-26] MEDS: Acetaminophen 325 MG Tablet 650 MG PO ×2 (09:15→20:54)
[2024-08-26] MEDS: Ipratropium/Albuterol Sulfate 3 ML AMPUL.NEB INHALATION ×3 (11:18→20:15)
--- NOTE | 2024-08-26 11:31 | PCM.PN.HOSP ---
Reason for Visit Reason for Visit: Diagnoses Viral pneumonia, unspecified (08/25/24) Chronic obstructive pulmonary disease with (acute) exacerbation (08/25/24) Dyspnea, unspecified (08/25/24) Tachypnea, not elsewhere classified (08/25/24) Tobacco use (08/25/24) Objective Data Objective Data Vital Signs: Vital Signs Temp Pulse Resp BP Pulse Ox O2 Del Method O2 Flow Rate 97.8 F 71 18 133/58 H 98 Nasal Cannula 1 08/26/24 09:06 08/26/24 11:18 08/26/24 11:18 08/26/24 09:06 08/26/24 11:19 08/26/24 11:19 08/26/24 11:19 Oxygen Flow Rate (L/min) 1 Oxygen Delivery Method Nasal Cannula Weight: 208 lb 1.862 oz Body Mass Index (BMI) 40.8 Lab / Micro Data 08/26/24 05:16 08/26/24 05:16 Labs: Laboratory Results - last 24 hr 08/25/24 15:53: WBC 8.9, RBC 4.93, Hgb 14.4, Hct 44.2, MCV 89.7, MCH 29.2, MCHC 32.6, RDW Std Deviation 43.5, RDW Coeff of Bhupendra 13.2, Plt Count 223, MPV 11.8, Immature Gran % (Auto) 0.500, Neut % (Auto) 57.1, Lymph % (Auto) 27.7, Overton % (Auto) 10.7 H, Eos % (Auto) 3.5, Baso % (Auto) 0.5, Absolute Neuts (auto) 5.1, Absolute Lymphs (auto) 2.45, Nucleated RBC % 0, Sodium 142, Potassium 3.8, Chloride 106, Carbon Dioxide 22.2, Anion Gap 13, BUN 10, Creatinine 0.83, Estim Creat Clear Calc 73.59, Est GFR (MDRD) Non-Af 80, BUN/Creatinine Ratio 12.6, Glucose 107 H, Calcium 9.4, Total Bilirubin 0.34, Direct Bilirubin 0.10, AST 25, ALT 16, Alkaline Phosphatase 148 H, Total Protein 7.3, Albumin 4.0, Globulin 3.3, Lipase 8 L 08/26/24 05:16: WBC 7.6, RBC 4.79, Hgb 13.9, Hct 41.7, MCV 87.1, MCH 29.0, MCHC 33.3, RDW Std Deviation 41.5, RDW Coeff of Bhupendra 13.1, Plt Count 204, MPV 11.3, Immature Gran % (Auto) 0.900, Neut % (Auto) 82.5 H, Lymph % (Auto) 15.4 L, Overton % (Auto) 1.1, Eos % (Auto) 0.0, Baso % (Auto) 0.1, Absolute Neuts (auto) 6.3, Absolute Lymphs (auto) 1.17, Nucleated RBC % 0, Sodium 139, Potassium 3.7, Chloride 104, Carbon Dioxide 23.6, Anion Gap 11, BUN 10, Creatinine 0.78, Estim Creat Clear Calc 77.79, Est GFR (MDRD) Non-Af 86, BUN/Creatinine Ratio 12.7, Glucose 256 H, Calcium 9.2, Phosphorus 3.4, Magnesium 2.2, Total Bilirubin 0.27, AST 18, ALT 16, Alkaline Phosphatase 138 H, Total Protein 7.0, Albumin 3.8, Globulin 3.1, Albumin/Globulin Ratio 1.2 Micro: Microbiology 08/25/24 20:48 Mucosa - Nasopharyngeal Respiratory Panel (PCR) - Final 08/25/24 17:48 Mucosa - Nose SARS-CoV-2, Influenza & RSV (PCR) - Final Radiography Diagnostic Testing: Radiology Impression Chest X-Ray 08/25/24 16:55 IMPRESSION: Mild pulmonary vascular congestion. No focal consolidations. Reading Location: [id number] Chest CTA 08/25/24 17:40 IMPRESSION: No acute process. Reading Location: [facility] Physical Exam Narrative Seen and examined. History taken from the patient and her daughter who is bilingual. Patient is mainly Polish-speaking. She stated she is short of breath, wheezing for last couple days getting worse. She has cough which is predominantly dry but sometimes brings phlegm and congestion. Physical exam General: Alert, Oriented x3, Cooperative. Obesity grade 3 BMI 40.6 kg/m? HEENT: Atraumatic, PERRLA, EOMI, Normocephalic. Oral: No Gingival or Mucosal Lesions/ Ulcerations Neck: Supple, No JVD, Negative Carotid Bruits Chest wall/Lungs: Air entry severely diminished in all lung hernandez. Bilateral coarse wheezing and rhonchi. Cardiovascular: Regular rate and rhythm, Normal S1,S2, No M/G/R Abdomen: Bowel Sounds Present, Soft, Non Tender, Non-Distended : No dysuria. No renal angle tenderness. No suprapubic tenderness. Extremities: No edema, Capillary Refill Less than 3 Seconds Skin: No rashes, No breakdown Musculoskeletal: No Tenderness to Palpation of Joints or Extremities Neurological: Cranial nerves II-XII grossly intact, DTR 2+/4. No acute focal neurological deficit. Psych/Mental Status: Normal Affect, Appropriate. Assessment & Plan Assessment/Plan (1) Acute dyspnea: (2) Viral pneumonia: (3) Tachypnea: (4) Tobacco abuse: (5) COPD with acute exacerbation: PLAN: Plan Patient is 63-year-old female admitted for shortness of breath chest congestion/tightness and wheezing for last couple days. Denies fever. Consistent with COPD exacerbation Acute dyspnea due to COPD exacerbation 2/2 Viral Pneumonia: Patient is being admitted on MedSurg floor. Patient is being managed on scheduled bronchodilator, IV Solu-Medrol, Mucinex, incentive spirometry and Pep. - Patient not hypoxic and requiring oxygen at this point but is markedly tachypneic and having considerable wheezing therefore will admit as observation -Imaging is relatively unremarkable. CT head no acute process. Triple PCR is negative. Respiratory panel negative. LDL COPD - Patient is not oxygen dependent at baseline. Currently she not following neurologist - Recommend outpatient follow-up with pulmonary medicine - Patient would benefit from outpatient PFTs and 6-minute walk test GERD - Patient is currently not on any medication for acid reflux next-monitor for symptoms specially with steroid use Seizures -continue topamax Depression/anxiety - Continue home fluoxetine - Continue home trazodone next-continue as needed Xanax Morbid obesity - Recommend weight loss - Will monitor nocturnal pulse ox secondary to concern the patient may have obstructive sleep apnea baseline - BMI is 41.1 - Complicates treatment, prognosis, outcomes Tobacco abuse - Nicotine replacement therapy 21 mcg patch - Recommend cessation DVT prophylaxis - Subcu Lovenox 40 twice daily due to BMI greater than 40 CODE STATUS - Full code as verified prior to admission Charges/Coding Visit Charges Inpatient E&M: 89690 Subs Hosp L2
[2024-08-26] MEDS: 0.9% Saline Lock 10 ML Syringe IV ×2 (13:30→20:55)
--- NOTE | 2024-08-26 14:24 | CASEMGMT ---
Social Work- SW met with pt per pt request to complete directives. Pt named dtr Chela as primary agent. SW placed copy on chart. SW provided pt with original as well as copies for her agents. Pt states no other needs at this time. SW updated dtr address in chart. ANDRA Harris
[2024-08-26] MEDS: traZODone 100 MG Tablet 200 MG PO (20:53)
[2024-08-26] MEDS: ALPRAZolam 0.5 MG Tablet 1 MG PO (20:53)
[2024-08-26] MEDS: FLUoxetine 20 MG Capsule PO (20:54)
[2024-08-26] MEDS: Topiramate 25 MG Tablet PO (20:55)
[2024-08-26] MEDS: Benzonatate 100 MG Capsule PO (21:01)
[2024-08-27] VITALS (8 sets, daily range): BP systolic 130–153; BP diastolic 67–87; PULSE 76–107; RESP 18–20; TEMP 36.2–36.5; O2SAT 94–97; BMI 40.9
[2024-08-27] MEDS: 0.9% Saline Lock 10 ML Syringe IV ×3 (05:39→21:18)
[2024-08-27] MEDS: Benzonatate 100 MG Capsule PO (05:39)
[2024-08-27] MEDS: Acetaminophen 325 MG Tablet 650 MG PO (05:39)
[2024-08-27] MEDS: Methylprednisolone Sod Succ 40 MG/ML VIAL IV ×3 (05:39→21:18)
[2024-08-27] MEDS: Nystatin Powder 15gm Bottle 1 APPLIC TOPICAL ×3 (05:42→21:18)
[2024-08-27] MEDS: Menthol/Lanolin/Calamine/Znox 113 GM Tube 1 APPLIC TOPICAL ×3 (05:43→21:18)
[2024-08-27] MEDS: Ipratropium/Albuterol Sulfate 3 ML AMPUL.NEB INHALATION ×4 (06:56→19:54)
[2024-08-27] MEDS: Enoxaparin 40 MG/0.4 ML Syringe SC ×2 (09:18→21:20)
[2024-08-27] MEDS: guaiFENesin 1,200 MG Tablet 1200 MG PO ×2 (09:18→21:18)
--- NOTE | 2024-08-27 14:48 | PCM.PN.HOSP ---
Reason for Visit Reason for Visit: Diagnoses Viral pneumonia, unspecified (08/25/24) Chronic obstructive pulmonary disease with (acute) exacerbation (08/25/24) Dyspnea, unspecified (08/25/24) Tachypnea, not elsewhere classified (08/25/24) Tobacco use (08/25/24) Objective Data Objective Data Vital Signs: Vital Signs Temp Pulse Resp BP Pulse Ox O2 Del Method O2 Flow Rate 97.7 F L 84 18 130/67 H 95 Room Air 1 08/27/24 14:25 08/27/24 14:25 08/27/24 14:25 08/27/24 14:25 08/27/24 14:25 08/27/24 14:08/26/24 14:04 Oxygen Flow Rate (L/min) 1 Oxygen Delivery Method Room Air Weight: 208 lb 8.917 oz Body Mass Index (BMI) 40.9 Lab / Micro Data 08/26/24 05:16 08/26/24 05:16 Micro: Microbiology 08/26/24 21:00 Sputum, Expectorated/Coughed Gram Stain - Final 08/25/24 20:48 Mucosa - Nasopharyngeal Respiratory Panel (PCR) - Final 08/25/24 17:48 Mucosa - Nose SARS-CoV-2, Influenza & RSV (PCR) - Final Physical Exam Narrative Seen and examined. Shortness of breath is better. Still has mild cough and chest congestion and wheezing. Physical exam General: Alert, Oriented x3, Cooperative. Obesity grade 3 BMI 40.6 kg/m? HEENT: Atraumatic, PERRLA, EOMI, Normocephalic. Oral: No Gingival or Mucosal Lesions/ Ulcerations Neck: Supple, No JVD, Negative Carotid Bruits Chest wall/Lungs: Air entry severely diminished in all lung hernandez. Bilateral coarse wheezing and rhonchi, better than yesterday. Cardiovascular: Regular rate and rhythm, Normal S1,S2, No M/G/R Abdomen: Bowel Sounds Present, Soft, Non Tender, Non-Distended : No dysuria. No renal angle tenderness. No suprapubic tenderness. Extremities: No edema, Capillary Refill Less than 3 Seconds Skin: No rashes, No breakdown Musculoskeletal: No Tenderness to Palpation of Joints or Extremities Neurological: Cranial nerves II-XII grossly intact, DTR 2+/4. No acute focal neurological deficit. Psych/Mental Status: Normal Affect, Appropriate. Assessment & Plan Assessment/Plan (1) Acute dyspnea: (2) Viral pneumonia: (3) Tachypnea: (4) Tobacco abuse: (5) COPD with acute exacerbation: PLAN: Plan Patient is 63-year-old female admitted for shortness of breath chest congestion/tightness and wheezing for last couple days. Denies fever. Consistent with COPD exacerbation She stated she is short of breath, wheezing for last couple days getting worse. She has cough which is predominantly dry but sometimes brings phlegm and congestion. Acute dyspnea due to COPD exacerbation 2/2 Viral Pneumonia: Patient is being admitted on MedSur floor. Patient is being managed on scheduled bronchodilator, IV Solu-Medrol, Mucinex, incentive spirometry and Pep. - Patient not hypoxic and requiring oxygen at this point but is markedly tachypneic and having considerable wheezing therefore will admit as observation -Imaging is relatively unremarkable. CT head no acute process. Triple PCR is negative. Respiratory panel negative. LDL 08/27: Dyspnea has improved. Wheezing and chest congestion is also improving. On benzonatate and Mucinex. Continue above treatment. Pulse ox 95% on room air. COPD - Patient is not oxygen dependent at baseline. Currently she not following neurologist - Recommend outpatient follow-up with pulmonary medicine - Patient would benefit from outpatient PFTs and 6-minute walk test GERD - Patient is currently not on any medication for acid reflux next-monitor for symptoms specially with steroid use Seizures -continue topamax Depression/anxiety - Continue home fluoxetine - Continue home trazodone next-continue as needed Xanax Morbid obesity - Recommend weight loss - Will monitor nocturnal pulse ox secondary to concern the patient may have obstructive sleep apnea baseline - BMI is 41.1 - Complicates treatment, prognosis, outcomes Tobacco abuse - Nicotine replacement therapy 21 mcg patch - Recommend cessation DVT prophylaxis - Subcu Lovenox 40 twice daily due to BMI greater than 40 CODE STATUS - Full code as verified prior to admission Charges/Coding Visit Charges Inpatient E&M: 93155 Subs Hosp L2
[2024-08-27] MEDS: Benzonatate 100 MG Capsule 200 MG PO ×2 (15:10→21:18)
[2024-08-27] MEDS: FLUoxetine 20 MG Capsule PO (21:17)
[2024-08-27] MEDS: ALPRAZolam 0.5 MG Tablet 1 MG PO (21:17)
[2024-08-27] MEDS: Topiramate 25 MG Tablet PO (21:18)
[2024-08-27] MEDS: traZODone 100 MG Tablet 200 MG PO (21:19)
[2024-08-28] VITALS (7 sets, daily range): BP systolic 127–134; BP diastolic 76–83; PULSE 80–99; RESP 18–26; TEMP 36.1–36.7; O2SAT 91–98; BMI 40.6
[2024-08-28] MEDS: Benzonatate 100 MG Capsule 200 MG PO (05:00)
[2024-08-28] MEDS: 0.9% Saline Lock 10 ML Syringe IV (05:01)
[2024-08-28] MEDS: Methylprednisolone Sod Succ 40 MG/ML VIAL IV (05:01)
[2024-08-28] MEDS: Acetaminophen 325 MG Tablet 650 MG PO (05:01)
[2024-08-28] MEDS: Ipratropium/Albuterol Sulfate 3 ML AMPUL.NEB INHALATION ×3 (06:55→14:23)
[2024-08-28] MEDS: Enoxaparin 40 MG/0.4 ML Syringe SC (09:28)
[2024-08-28] MEDS: Menthol/Lanolin/Calamine/Znox 113 GM Tube 1 APPLIC TOPICAL (09:28)
[2024-08-28] MEDS: Nystatin Powder 15gm Bottle 1 APPLIC TOPICAL (09:29)
[2024-08-28] MEDS: guaiFENesin 1,200 MG Tablet 1200 MG PO (09:29)
--- NOTE | 2024-08-28 11:40 | PCM.DC ---
Discharge Instructions Diet Discharge Diet: Low fat / Low cholesterol and 2000 mg Sodium Diet DC O2, CPAP, BIPAP needs Home O2 Discharge instructions: No Dressing / Incision Discharge Activity: Return to Normal Activity Weight Bearing Status: Weight bearing as tolerated Dressing / Incision Call your doctor if you observe: Fever of 101 or Higher, Coldness, Increased Pain, Numbness or Tingling, Change in Color, Inability to urinate, Inability to have a bowel movement, Shortness of breath, Dizziness, Fainting spells, Swelling in the ankles, Chest pain, Prolonged hiccupping, Increased palpitations (irregular heartbeat) and Calf discomfort Follow Up Care When: IN 2 WEEKS Test Results: Test results from this visit will be discussed in further detail at your follow-up appointment, if applicable. Discharge Plan Admission Admit Date/Time: 08/25/24 20:53 Primary Reason for Your Visit: copd exacerbation Attending Provider: Alcon Cr Primary Care Provider: Leonid Rice Consulting Providers: Modesta Caro Instructions Additional Instructions / Restrictions: Patient needs to follow-up with the film processing utility worker for PFT and noninvasive pulmonary function test Discharge Orders/Prescriptions Prescriptions: New nicotine 21 mg/24 hr Patch 24 Hour 21 mg transdermal DAILY 28 Days Qty: 28 0RF guaifenesin [Mucus Relief ER] 1,200 mg Tablet Extended Release 12hr 1,200 mg PO BID 7 Days Qty: 14 0RF benzonatate 200 mg capsule 200 mg PO TID PRN (Reason: cough) Qty: 30 0RF prednisone 10 mg tablet 10 mg PO DAILY Qty: 30 0RF Rx Instructions: 40 mg for 3 days 30 mg for 3 days, 20 mg for 3 days,and 10 mg for 3 days Continued topiramate [Topamax] 25 MG tablet 25 mg PO QHS Patient Comments: seizures fluoxetine 20 MG capsule 20 mg PO QHS Patient Comments: depression trazodone 100 MG tablet 200 mg PO QHS Patient Comments: depression Pulmicort Flexhaler 1 PUFF inhaler 1 puff inhalation BID Qty: 1 0RF Patient Comments: shortness of breath albuterol sulfate [ProAir HFA] 1 PUFF inhaler 2 puff inhalation Q4H PRN PRN (Reason: Sob &/Or Wheezing) Qty: 1 0RF Patient Comments: shortness of breath Referrals / Follow Up: Leonid Rice MD [Primary Care Provider] - Within 2 Weeks Cole Silva DO [Med Staff - Active Staff] - Within 2 Weeks Disposition Disposition (needs filled in before D/C Order can be placed): Home, Self Care
--- NOTE | 2024-08-28 12:48 | PCM.DC.SUM ---
Providers Date of Admission: 08/25/24 Date of Discharge: 08/28/24 Primary Care Physician: Dr. Leonid Rice MD Reason For Visit: ACUTE EXACERBATION OF COPD Diagnosis Discharge Diagnosis (1) Acute dyspnea: Status: Acute Code(s): R06.00 - Dyspnea, unspecified (2) Viral pneumonia: Status: Acute Code(s): J12.9 - Viral pneumonia, unspecified (3) Tachypnea: Status: Acute Code(s): R06.82 - Tachypnea, not elsewhere classified (4) Tobacco abuse: Status: Inactive Code(s): Z72.0 - Tobacco use (5) COPD with acute exacerbation: Status: Chronic Code(s): J44.1 - Chronic obstructive pulmonary disease with (acute) exacerbation Plan Patient is 63-year-old female admitted for shortness of breath chest congestion/tightness and wheezing for last couple days. Denies fever. Consistent with COPD exacerbation She stated she is short of breath, wheezing for last couple days getting worse. She has cough which is predominantly dry but sometimes brings phlegm and congestion. Acute dyspnea due to COPD exacerbation 2/2 Viral Pneumonia: Patient is being admitted on MedSurg floor. Patient is being managed on scheduled bronchodilator, IV Solu-Medrol, Mucinex, incentive spirometry and Pep. - Patient not hypoxic and requiring oxygen at this point but is markedly tachypneic and having considerable wheezing therefore will admit as observation -Imaging is relatively unremarkable. CT head no acute process. Triple PCR is negative. Respiratory panel negative. LDL 08/27: Dyspnea has improved. Wheezing and chest congestion is also improving. On benzonatate and Mucinex. Continue above treatment. Pulse ox 95% on room air. 08/28: Patient currently on room air. Home oxygen qualification test ordered. Prescription given for tapering dose of prednisone, Mucinex and Tessalon Perles. Patient does not require oxygen. COPD - Patient is not oxygen dependent at baseline. Currently she not following neurologist - Recommend outpatient follow-up with pulmonary medicine - Patient would benefit from outpatient PFTs and 6-minute walk test 08/28, advised to follow with adult education professional for the reasons mentioned above. GERD - Patient is currently not on any medication for acid reflux next-monitor for symptoms specially with steroid use Seizures -continue topamax Depression/anxiety - Continue home fluoxetine - Continue home trazodone next-continue as needed Xanax Morbid obesity - Recommend weight loss - Will monitor nocturnal pulse ox secondary to concern the patient may have obstructive sleep apnea baseline - BMI is 41.1 - Complicates treatment, prognosis, outcomes Tobacco abuse - Nicotine replacement therapy 21 mcg patch - Recommend cessation DVT prophylaxis - Subcu Lovenox 40 twice daily due to BMI greater than 40 CODE STATUS - Full code as verified prior to admission Discharge medication reconciliation done. Discharge follow-up instructions completed. Discharge process discussed with the patient and all questions were answered to patient's satisfaction. Follow with PCP in 1 to 2 weeks Total time spent, exact 35 minutes on discharge meds reconciliation, examination, coordination of care with nurses and ancillary staff, review of imaging and blood test and discussion with the patient on follow-up instructions. Medications at Discharge Home Medications fluoxetine 20 mg capsule 20 mg PO QHS 03/24/15 topiramate 25 mg tablet (Topamax) 25 mg PO QHS 03/24/15 trazodone 100 mg tablet 200 mg PO QHS 03/24/15 albuterol sulfate 90 mcg/actuation aerosol inhaler (ProAir HFA) 2 puff inhalation Q4H PRN PRN Sob &/Or Wheezing ##1 03/25/15 budesonide 180 mcg/actuation breath activated powder inhaler (Pulmicort Flexhaler) 1 puff inhalation BID ##1 03/25/15 benzonatate 200 mg capsule 200 mg PO TID PRN cough #30 caps 08/28/24 guaifenesin 1,200 mg tablet, extended release 12 hr (Mucus Relief ER) 1,200 mg PO BID 7 days #14 tabs 08/28/24 nicotine 21 mg/24 hr daily transdermal patch 21 mg transdermal DAILY 28 days #28 ea 08/28/24 prednisone 10 mg tablet 10 mg PO DAILY #30 tabs 08/28/24 Physical Exam Narrative Seen and examined. Shortness of breath is better. Mild wheezing but cough is better. Physical exam General: Alert, Oriented x3, Cooperative. Obesity grade 3 BMI 40.6 kg/m? HEENT: Atraumatic, PERRLA, EOMI, Normocephalic. Oral: No Gingival or Mucosal Lesions/ Ulcerations Neck: Supple, No JVD, Negative Carotid Bruits Chest wall/Lungs: Air entry diminished in all lung hernandez. Bilateral coarse wheezing and rhonchi, improving. Cardiovascular: Regular rate and rhythm, Normal S1,S2, No M/G/R Abdomen: Bowel Sounds Present, Soft, Non Tender, Non-Distended : No dysuria. No renal angle tenderness. No suprapubic tenderness. Extremities: No edema, Capillary Refill Less than 3 Seconds Skin: No rashes, No breakdown Musculoskeletal: No Tenderness to Palpation of Joints or Extremities Neurological: Cranial nerves II-XII grossly intact, DTR 2+/4. No acute focal neurological deficit. Psych/Mental Status: Normal Affect, Appropriate. Weight / BMI Weight Weight: 207 lb 0.225 oz Body Mass Index (BMI) 40.6 ABG / Lab / Microbiology Data 08/26/24 05:16 08/26/24 05:16 Microbiology: Microbiology 08/26/24 21:00 Sputum, Expectorated/Coughed Gram Stain - Final 08/26/24 21:00 Sputum, Expectorated/Coughed Respiratory Culture - Preliminary 08/25/24 20:48 Mucosa - Nasopharyngeal Respiratory Panel (PCR) - Final 08/25/24 17:48 Mucosa - Nose SARS-CoV-2, Influenza & RSV (PCR) - Final D/C Instructions Discharge Diet: Low fat / Low cholesterol and 2000 mg Sodium Diet Weight Bearing Status: Weight bearing as tolerated Call your doctor if you observe: Fever of 101 or Higher, Coldness, Increased Pain, Numbness or Tingling, Change in Color, Inability to urinate, Inability to have a bowel movement, Shortness of breath, Dizziness, Fainting spells, Swelling in the ankles, Chest pain, Prolonged hiccupping, Increased palpitations (irregular heartbeat) and Calf discomfort DC O2, CPAP, BIPAP Needs Home O2 Discharge instructions: No When: IN 2 WEEKS Meaningful Use Info Meaningful Use Meaningful Use Diagnoses (Choose all that apply): None applicable Ischemic Stroke Statin Dosing Therapy Reference: STATIN DOSE THERAPY REFERENCE: * Patients > 75 years receive moderate or high dose statin therapy. * Patients 75 years or YOUNGER should receive HIGH intensity statin dose unless contraindicated. You will be required to document reason for non-treatment if statin daily dose does not meet guidelines. HIGH DOSE STATIN THERAPY DAILY Atorvastatin > than or = to 40 mg Rosuvastatin > than or = to 20 mg Amlodipine + Atorvastatin > than or = to 2.5/40 mg Ezetimibe + Simvastatin 10/80 mg Simvastatin 80mg Discharge Plan Admission Admit Date/Time: 08/25/24 20:53 Primary Reason for Your Visit: copd exacerbation Attending Provider: Alcon Cr Primary Care Provider: Leonid Rice Consulting Providers: Modesta Caro Instructions Additional Instructions / Restrictions: Patient needs to follow-up with the adult education professional for PFT and noninvasive pulmonary function test Discharge Orders/Prescriptions Prescriptions: New nicotine 21 mg/24 hr Patch 24 Hour 21 mg transdermal DAILY 28 Days Qty: 28 0RF guaifenesin [Mucus Relief ER] 1,200 mg Tablet Extended Release 12hr 1,200 mg PO BID 7 Days Qty: 14 0RF benzonatate 200 mg capsule 200 mg PO TID PRN (Reason: cough) Qty: 30 0RF prednisone 10 mg tablet 10 mg PO DAILY Qty: 30 0RF Rx Instructions: 40 mg for 3 days 30 mg for 3 days, 20 mg for 3 days,and 10 mg for 3 days Continued topiramate [Topamax] 25 MG tablet 25 mg PO QHS Patient Comments: seizures fluoxetine 20 MG capsule 20 mg PO QHS Patient Comments: depression trazodone 100 MG tablet 200 mg PO QHS Patient Comments: depression Pulmicort Flexhaler 1 PUFF inhaler 1 puff inhalation BID Qty: 1 0RF Patient Comments: shortness of breath albuterol sulfate [ProAir HFA] 1 PUFF inhaler 2 puff inhalation Q4H PRN PRN (Reason: Sob &/Or Wheezing) Qty: 1 0RF Patient Comments: shortness of breath Referrals / Follow Up: Cole Silva DO [Med Staff - Active Staff] - Within 2 Weeks Leonid Rice MD [Primary Care Provider] - Within 2 Weeks Disposition Disposition (needs filled in before D/C Order can be placed): Home, Self Care Charges/Coding Visit Charges Inpatient E&M: 41604 Disch Hosp >30min
--- NOTE | 2024-08-28 13:44 | CASEMGMT ---
Pt has an order for DC placed. Per the trucker hand, pt does not qualify for home oxygen. Pt states that she lives alone and that she is indep. 6-Click score is 24. Pt states that her daughter plans to pick her up today. Pt states that she feels safe returning home today and denies any further DC needs.
== END 2024-08-28 15:44 | disposition home or self-care (01) ==
LOC: ED 20:22 → MS3 21:27
PROVIDERS: Admitting Provider Internal Medicine; Emergency Provider Emergency Medicine; PCP Internal Medicine; Visit Provider Internal Medicine
DX: J12.9 Viral pneumonia, unspecified (principal); J44.1 Chronic obstructive pulmonary disease with (acute) exacerbation; G40.909 Epilepsy, unspecified, not intractable, without status epilepticus; E66.01 Morbid (severe) obesity due to excess calories; Z68.41 Body mass index [BMI] 40.0-44.9, adult; R10.13 Epigastric pain; K21.9 Gastro-esophageal reflux disease without esophagitis; F41.9 Anxiety disorder, unspecified; F32.A Depression, unspecified; Z79.899 Other long term (current) drug therapy; Z79.51 Long term (current) use of inhaled steroids; F17.210 Nicotine dependence, cigarettes, uncomplicated
CPT/HCPCS: 36415; 71045; 71275; 80048; 80053; 80076; 83690; 83735; 84100; 85025; 87070; 87205; 87631; 87633; 93005; 94640; 94668; 96372; 96374; 96376; 99221; 99252; 99285; 99406; Q9967; A4216; G0378; G0463; J1938

== ENCOUNTER 2024-08-29 01:09 | Emergency (ER) | payer MEDICAID, SELFPAY ==
[2024-08-29] VITALS (7 sets, daily range): BP systolic 99–142; BP diastolic 75–84; PULSE 83–99; RESP 20–25; TEMP 36.4–37.1; O2SAT 90–97; BMI 41.5
[2024-08-29 02:10] LABS: Absolute Lymphocyte Count 2.51 X10^3/uL (0.83-4.51); Absolute Neutrophil Count 10.5 X10^3/uL (2.0-7.7); Basophil# 0.07 X10^3/uL; Basophil% 0.5 % (0-1); Eosinophil# 0.02 X10^3/uL; Eosinophils% 0.1 % (0-5); Hematocrit 43.8 % (37-47); Hemoglobin 14.5 g/dL (12.0-15.0); Lymphocyte # 2.51 X10^3/ul (0.83-4.51); Mean Corp Hgb Conc 33.1 g/dL (32-36); Mean Corpuscular Hgb 29.8 pg (27.0-32.0); Mean Corpuscular Volume 89.9 fL (81-99); Mean Platelet Vol. 11.9 fl (6.2-12.0); Monocyte# 1.29 X10^3/uL; Monocyte% 8.7 % (0-10); NRBC Flagged by Analyzer 0 % (0-5); Neutrophil # 10.52 X10^3/uL (2.7-7.7); Neutrophil % 71.1 % (47-70); Platelet Count 209 K/mm3 (150-450); RBC Distribution Width CV 13.4 % (11.6-14.6); RBC Distribution Width SD 44.1 fl (35.1-43.9); Red Blood Count 4.87 M/mm3 (4.2-5.4); White Blood Count 14.8 K/mm3 (4.4-11.0)
[2024-08-29] MEDS: MethylPREDNISolone 125 MG/2 ML Vial IV (02:12)
[2024-08-29] MEDS: Ipratropium/Albuterol Sulfate 3 ML AMPUL.NEB INHALATION ×2 (02:12→03:34)
[2024-08-29] MEDS: Albuterol 2.5 MG/3 ML VIAL.NEB. INHALATION (02:13)
[2024-08-29] MEDS: Lorazepam 2 MG/ML WCH Syringe 0.5 MG IV (02:20)
--- NOTE | 2024-08-29 02:32 | RAD_ITS ---
PROCEDURE: CHEST PA AND LATERAL 08/29/2024 REASON FOR EXAM: DYSPNEA TECHNIQUE: CHEST PA AND LATERAL COMPARISON: CT scan on 08/25/2024. FINDINGS: Mild bilateral basilar atelectatic pulmonary changes. There is no demonstrated pleural abnormality. Enlarged cardiac silhouette. Normal mediastinum and janel. Normal visualized pulmonary arteries. Atheromatous plaques of the visualized aortic arch and descending thoracic aorta. Diffuse spondylosis of the visualized thoracic spine. Normal visualized ribs, clavicles. Degenerative joint disease. There is no demonstrated abnormality of the visualized soft tissue structures of the upper abdomen. RAD/Chest PA and Lateral IMPRESSION: Mild bilateral basilar atelectatic pulmonary changes. Reading Location: [place]
--- OUTSIDE RECORDS SUMMARY | 2024-08-29 02:32 | XMS RPT_ITS | CCD ---
Author Organization [facility] Care Team Providers Care Email Marketing Assistant Name Role Phone GARCIA, KIARRA Unavailable Unavailable NO FAMILY DOCTOR, NO FAMILY DOCTOR Unavailable Unavailable GARCIA, KIARRA Unavailable Unavailable NO FAMILY DOCTOR, NO FAMILY DOCTOR Unavailable Unavailable DOTTIE, YANELIS A Unavailable Unavailable [id number]-DENTISTRY, DOCTOR Unavailab le Unavailable DOTTIE, YANELIS A Unavailable Unavailable [id number]-DENTISTRY, DOCTOR Unavailab le Unavailable DOTTIE, YANELIS A Unavailable Unavailable [id number]-DENTISTRY, DOCTOR Unavailab le Unavailable SPRINGER, ESTELA Primary Care Unavailable RAKESH AVALOS Attending Unavailable SPRINGER, ESTELA Primary Care Unavailable RAKESH AVALOS Attending Unavailable FABIO, CATA Referring Unavailable SPRINGER, ESTELA Primary Care Unavailable TARKENTON, JOSEMANUEL Referring Unavailable YAHAIRA, NORBETO Primary Care Unavailable [...] Unavailable WADE, DR MIKAEL Clancy Attending Unavaila ble WADE, DR MIKAEL Clancy Primary Care Unavaila velma PELLETIER, DR MIKAEL Clancy Admitting Unavaila ble Leonid Rice MD Primary Care Provider [facility], Erica Unavailable Leonid Rice MD Primary Care Provider [facility], Erica Unavailable [facility], Erica Unavailable Herminio MCCOY, Leonid Umaña Primary Care Provider [facility], Erica Unavailable PHYSICIAN, NONE Primary Care Physician Unavailab gaurang Alvarado RN, Alysia Song Unavailable Unavailable TESS MCCOY, MIKAEL Pimentel Attending Unavailable MARCIE MCCOY, DR WYATT Consulting Unavailable PHYSICIAN, NONE Primary Care Unavailable Herminio MCCOY, Leonid Umaña Primary Care Provider PROVIDER, UNKNOWN Referring Unavailable RICE, TONI Primary Care Unavailable RICE, TONI Primary Care Unavailable RODRÍGUEZ, EDDIE Referring Unavailable RICE, TONI Primary Care Unavailable RICE, TONI Referring Unavailable RICE, TONI Primary Care Unavailable OLDER, MARIANNA Attending Unavailable RICE, OTNI Primary Care Unavailable RICE, TONI Referring Unavailable RICE, TONI Primary Care Unavailable EDDIE RODRÍGUEZ Attending Unavailable RICE, TONI Primary Care Unavailable RODRÍGUEZ, EDDIE Referring Unavailable SMILEY DE LA PAZ Attending Unavailab TERRENCE Priest Attending Unavailable ARCELIA GARCIA Referring Unavailabl e RICE, TONI Primary Care Unavailable KATTY, EDDIE Referring Unavailable OLDER, MARIANNA Attending Unavailable RICE, TONI Primary Care Unavailable RUBY KIRKPATRICK Attending Unavailable SMILEY DE LA PAZ Referring Unavailab le HERMINIO, TONI Primary Care Unavailable Zachery Toussaint Attending Unavailable OLDER, MARIANNA Referring Unavailable RICE, TONI Primary Care Unavailable RICE, TONI Primary Care Unavailable RICE, TONI Attending Unavailable RICE, TONI Primary Care Unavailable MEREDITH JIMENEZ Attending Unavailable Zachery Toussaint Attending Unavailable Zachery Toussaint Referring Unavailable RICE, TONI Primary Care Unavailable Zachery Toussaint Attending Unavailable RICE, TONI Primary Care Unavailable OLDER, MARIANNA Referring Unavailable RICE, TONI Primary Care Unavailable RICE, TONI Referring Unavailable RICE, TONI Primary Care Unavailable KATTY, EDDIE Referring Unavailable Herminio MCCOY, Dr. Jaquez Primary Care Provider Dr. Zachery Jesus DO Emergency Provider Dr. Modesta Caro DO Admit Provider Gordo VELASQUEZ, Dr. Byers Attending Provider Modesta Caro Admitting Unavailable Modesta Caro Attending Unavailable Leonid Rice Primary Care Unavailable Modesta Caro Consulting Unavailable Alcon Cr Attending Unavailable Alcon Cr Consulting Unavailable Gordo VELASQUEZ, Dr. Byers Other Provider Tayo MCCOY, Dr. Rondon Attending Provider Tayo MCCOY, Dr. Rondon Other Provider Allergies Allergy Classification Reported Allergen(s) Allergy Type Date of Onset Reaction(s) Facility Latex (5 sources) Latex; Translations: [LATEX] Substance Allergy 4 Itching [facility] Repository NSAIDs (4 sources) Diclofenac Drug Allergy 6 Other: See Comments [facility] (20 sources) Diclofenac; Translations: [DICLOFENAC SODIUM] Drug Allergy 6 Other: See Comments [facility] Work Phone: (20 sources) Latex; Translations: [LATEX] Drug Allergy 4 Itching [facility] (1 source) Contrast media; Translations: [iodinated radiocontrast agents] Drug allergy [facility] (2 sources) Chocolate Drug allergy (disorder) 5 Shortness of breath [facility] Repository Comment on above: chocolate causes ast hma exacerbation (1 source) Latex Drug allergy (disorder) 5 [facility] Repository Medications Current Medications Medication Drug Class(es) Dates Sig (Normalized) Sig (Original) [id number] 200 actuat albuterol 0.09 mg/actuat metered dose [...] (Sp)Vent Pts) 1 PUFF inhaler Discontinued 2 NMA INHALATION EVERY 4 HOURS NEEDED as needed for Wheezing June 12, 2014 12:00am March 25, 2015 3:41pm Start: 06-12-2014 End: 03-25-2015 take 1 puff(s) [...] Albuterol Sulfate (Proair Hfa) 1 PUFF inhaler (3 sources) Start: 03-25-2015 Albuterol Sulfate (Proair Hfa) 1 PUFF inhaler Active 2 NMA INHALATION EVERY 4 HOURS NEEDED as needed for Sob &/Or Wheezing March 25, 2015 3:41pm Start: 03-25-2015 take 1 puff(s) by in halation every four hours as needed Albuterol Sulfate (Proair Hfa) 1 PUFF inhaler Active 2 PUFF INHALATION EVERY 4 HOURS NEEDED March 25, 2015 2:41pm benzonatate 200 mg oral capsule (1 source) Non-narcotic Antitussive Start: 08-28-2024 take 1 capsule by mouth three times daily as needed for cough Benzonatate 200 mg capsule Active 200 mg PO THREE TIMES A DAY as needed for cough August 28, 2024 12:00am betamethasone 0.5 mg/ml / clotrimazole 10 mg/ml topical cream (1 source) Azole Antifungal, Corticosteroid Start: 12-15-2022 End: 12-22-2022 clotrimazole-bet amethasone (LOTRISONE) cream Apply 1 application to affected area two times a day for 7 days. 45 g 1 12/15/2022 12/22/2022 Active Comment on above: Apply 1 application to affected area two times a day for 7 days. Budesonide (4 sources) Corticosteroid Start: 03-25-2015 take 1 puff(s) by inhalation twice daily Budesonide (Pulmicort Flexhaler) 1 PUFF inhaler Active 1 NMA INHALATION TWICE A DAY March 25, 2015 1:00am Start: 03-25-2015 take 1 puff(s) by in halation twice daily Budesonide (Pulmicort Flexhaler) 1 PUFF inhaler Active 1 PUFF INHALATION TWICE A DAY March 25, 2015 12:00am FLUoxetine 40 mg oral capsule (20 sources) Serotonin Reuptake Inhibitor Start: 03-02-2023 take 1 capsule by mouth once daily FLUoxetine (PROZAC) 40 mg capsule Take 40 mg by mouth once daily. [facility]. 03/02/2023 Active Start: 03-24-2015 End: 03-02-2023 take 1 capsule by mouth at bedtime Fluoxetine 20 MG capsule Active 20 mg PO AT BEDTIME March 24, 2015 1:00am Start: 03-24-2015 take 40 mg by mouth at bedtime Fluoxetine Active 40 MG PO AT BEDTIME March 24, 2015 12:00am Comment on above: Take 20 mg by mouth once daily. Take 1 capsule by mo [facility] once daily. Nobel [facility]. 30 actuat fluticasone furoate 0.2 mg/actuat [...] Start: 10-08-2021 take 1 puff(s) by mo uth once daily BREO ELLIPTA 200-25 mcg/dose inhaler Indications: Moderate persistent asthma, unspecified whether complicated inhale 1 puff by mouth and INTO THE LUNGS once daily 60 Each 0 10/08/2021 Active fluticasone-kaushal nterol (BREO ELLIPTA) 200-25 mcg/dose inhaler Inhale 1 Inhalation as instructed once daily. 0 Active Comment on above: Inhale 1 Inhalation as instructed once daily. inhale 1 puff by felipe th and INTO THE LUNGS once daily 12 hr guaiFENesin 1200 mg extended release oral tablet (1 source) Start: 5 take 1 tablet by mouth twice daily, then take 1 tablet by mouth every twelve hours Guaifenesin (Mucus Relief Er) 1,200 mg Tablet Extended Release 12hr Active 1200 mg PO TWICE A DAY 14 August 28, 2024 12:00am naproxen 500 mg oral tablet (20 sources) Nonsteroidal Anti-inflammatory Drug Start: 3 End: 4 take 1 tablet by mouth twice daily [...] 12/01/2023 Active Start: 09-28-2019 End: 01-26-2023 take 1 tablet by mouth twice daily as needed Naproxen 500 mg tablet Discontinued 500 mg PO TWICE DAILY NEEDED July 28, 2020 12:00am January 26, 2023 12:24pm Comment on above: Take 1 tablet by [...] J45.41. Nebulizer and supplies. Face mask preferred. 24 hr nicotine 0.875 mg/hr transdermal system (3 sources) Cholinergic Nicotinic Agonist Start: apply 1 dose transdermal route every twenty-four hours Nicotine 21 mg/24 hr Patch 24 Hour Active 21 mg TD DAILY August 28, 2024 12:00am Start: 11-20-2020 Nicotine Polac rilex [address] 1 Lozenge between [...] use more than 20 lozenges per day. predniSONE 10 mg oral tablet (4 sources) Start: 08-28-2024 Prednisone 10 mg tablet Active 10 mg PO DAILY August 28, 2024 12:00am 40 mg for 3 days 30 mg for 3 days, 20 mg for 3 days,and 10 mg for 3 days Start: 11-18-2022 End: 11-30-2022 predniSONE (DELTASONE) 10 mg tablet Take 4 [...] then 1 tab x3 days with food. 10 actuat tiotropium 0.0025 mg/actuat inhalation spray [...] Topiramate (Topamax) 25 MG tablet Active 25 mg PO AT BEDTIME March 24, 2015 1:00am Comment on above: Take 1 tablet by felipe th twice daily. Take 1 tablet by felipe th two times a day. traZODone hydrochloride 100 mg oral tablet (20 sources) Serotonin Reuptake Inhibitor Start: 6 take 2 tablets by mouth at bedtime Trazodone 100 MG tablet Active 200 mg PO AT BEDTIME March 24, 2015 1:00am Start: 03-24-2015 take 200 mg by mouth at bedtim e Trazodone Active 200 MG PO AT BEDTIME March 24, 2015 12:00am Comment on above: Take 2 tablets by [facility] daily at bedtime. Noble Gilbert, LICENSED PROSTHETIST[facility] Completed/Discontinued Medications Medication Drug Class(es) Dates Sig (Normalized) Sig (Original) acetaminophen 325 mg / HYDROcodone bitartrate 5 mg oral tablet (4 sources) Opioid Agonist Start: 04-10-2019 End: 04-12-2019 Hydrocodone-Acetami nophen 1 TABLET tablet Discontinued 1 {tbl} PO EVERY 4 HOURS NEEDED as needed for Pain 10 April 10, 2019 April 11, 2019 1:00am April 12, 2019 1:08am Start: 04-10-2019 End: 04-12-2019 take 1 tablet by mouth every four hours as needed Hydrocodone-Acetaminophen Discontinued 1 TABLET PO EVERY 4 HOURS NEEDED 10 April 10, 2019 April 12, 2019 12:08am ALPRAZolam 2 mg oral tablet (4 sources) Benzodiazepine Start: 06-06-2014 End: 08-25-2024 take 1 mg by mouth at bedtime Alprazolam (Xanax) 2 MG tablet Discontinued 1 mg PO AT BEDTIME June 06, 2014 12:00am August 25, 2024 9:32pm Benzocaine (1 source) Standardized Chemical Allergen Start: 01-18-2024 End: 01-18-2024 1 [place], TOPICAL, DIRECTED, Starting on Divina 01/18/24 at [...] Comment on above: Take 1 tablet by [facility] twice daily. calcium chloride 0.0014 meq/ml / potassium chloride 0.004 meq/ml / sodium chloride 0.103 meq/ml / sodium lactate 0.028 meq/ml injectable solution (2 sources) Start: End: take 30 mL intravenously every hour 30 mL/hr, INTRAVENOUS, CONTINUOUS, Starting on Divina 01/18/24 at 0830, Until Divina 01/18/24 at 0921, Preprocedure Start: 09-13-2023 End: 09-13-2023 lactated ringers iv infusion clindamycin 300 mg oral capsule (4 sources) Lincosamide Antibacterial Start: 10-25-2020 End: 01-26-2023 take 1 capsule by mouth four times daily Clindamycin Hcl 300 mg capsule Discontinued 300 mg PO .qid 40 10 October 25, 2020 12:00am January 26, 2023 12:24pm cyclobenzaprine hydrochloride 10 mg oral tablet (9 [...] by Patient) famotidine 20 mg oral tablet (4 sources) Histamine-2 Receptor Antagonist Start: 09-12-2019 End: 01-26-2023 take 1 tablet by mouth twice daily Famotidine 20 MG tablet Discontinued 20 mg PO TWICE A DAY September 12, 2019 12:00am January 26, 2023 12:24pm 1 ml fentaNYL 0.05 mg/ml injection (2 sources) Opioid Agonist Start: 01-18-2024 End: 01-18-2024 25-100 mcg, INTRAVENOUS, DIRECTED, Starting on Divina 01/18/24 at 0930, Until Divina 01/18/24 at 1329, DOSING DIRECTED BY PHYSICIAN FOR PROCEDURAL SEDATION ONLY, Intraprocedure Start: 09-13-2023 End: 09-13-2023 fentaNYL 50 mcg/mL 25-100 mc g injection (SUBLIMAZE) hydrocortisone 25 mg/ml topical cream (4 sources) Corticosteroid Start: 09-12-2019 End: 09-23-2020 Hydrocortisone 1 APPLIC cream with perineal applicator Discontinued 1 NMA TOPICAL 3 TIMES DAILY NEEDED as needed for Rectal Discomfort September 12, 2019 12:00am September 23, 2020 10:01am Start: 09-12-2019 End: 09-23-2020 Hydrocortisone Discontinued 1 APPLIC TOPICAL 3 TIMES DAILY NEEDED September 11, 2019 11:00pm September 23, 2020 9:01am ibuprofen 600 mg oral tablet (4 sources) Nonsteroidal Anti-inflammatory Drug Start: 09-02-2020 End: 01-26-2023 take 1 tablet by mouth every six hours as needed for pain Ibuprofen 600 mg tablet Discontinued 600 mg PO EVERY 6 HOURS NEEDED as needed for pain September 02, 2020 12:00am January 26, 2023 12:24pm lactase 9000 unt oral tablet (1 source) Start: 09-30-2020 lactase (LACTAID) 9,000 unit tab Indications: Lactose intolerance in adult Take a tablet with any milk or ice cream. 125 tablet 5 09/30/2020 Active Comment on above: Take a tablet with a ny milk or ice cream. lidocaine 0.05 mg/mg medicated patch (4 sources) Antiarrhythmic, Amide Local Anesthetic Start: 07-28-2020 End: 09-23-2020 Lidocaine (Lidoderm) 5 % adhesive patch,medicated Discontinued 1 NMA TOPICAL DAILY July 28, 2020 12:00am September 23, 2020 10:01am leave on most painful area for up [...] before meals. methylPREDNISolone 4 mg oral tablet (4 sources) Corticosteroid Start: 09-23-2020 End: 01-26-2023 take 1 tablet by mouth once Methylprednisolone (Medrol (Foreign)) 4 mg tablets,dose pack Discontinued 0 PO per package directions September 23, 2020 12:00am January 26, 2023 12:24pm PO PER PKG DIR 5 ml midazolam [...] Comment on above: [facility] omeprazole 40 mg delayed release oral capsule (20 sources) Proton Pump Inhibitor Start: 08-23-2023 End: 01-08-2024 take 1 capsule by mouth once daily omeprazole (PRILOSEC) 40 mg capsule Take 1 capsule by mouth once daily. 30 capsule 5 12/01/2023 01/08/2024 Discontinued (Discontinued by Patient) Start: 08-13-2018 End: 01-26-2023 take 1 capsule by mouth once daily Omeprazole 40 MG capsule,delayed release(DR/EC) Discontinued 40 mg PO DAILY August 13, 2018 12:00am January 26, 2023 12:24pm Start: 03-24-2015 End: 09-23-2020 take 1 capsule by mouth once daily Omeprazole 20 MG capsule Discontinued 20 mg PO DAILY March 25, 2015 3:41pm September 23, 2020 10:01am Comment on above: Take 1 capsule by mo [facility] daily before breakfast. polyethylene glycol 3350 58621 mg powder for oral solution (20 sources) Osmotic Laxative Start: 05-31-2022 End: 01-08-2024 polyethylene glycol 3350 (MIRALAX) 17 gram/dose powder Indications: Constipation, unspecified constipation type Take 17 g by mouth once daily as needed for constipation. 850 g 2 05/31/2022 01/08/2024 Discontinued (Discontinued by Patient) Start: 11-29-2021 End: 05-31-2022 polyethylene glycol 3350 (PR RALAX) 17 gram/dose powder Take once daily, mix in 4 to 8 ounces of water 235 g 2 11/29/2021 05/31/2022 Discontinued Comment on above: Take once daily, mix in 4 to 8 ounces of water Take 17 g by mouth o nce daily as needed for constipation. polyethylene glycol 3350 959763 mg / potassium chloride 2970 mg / sodium bicarbonate 6740 mg / sodium chloride 5860 mg / sodium sulfate 52707 mg powder for oral solution (1 source) Osmotic Laxative Start: 08-23-2023 End: 08-23-2023 peg 3350-Electrolytes (GOLYTELY) 236-22.74-6.74 -5.86 gram suspension Indications: Screening for colon cancer Take 4,000 mL by mouth one time only for 1 dose. Refer to printed prep instructions from your provider. 4000 mL 0 08/23/2023 08/23/2023 sulfamethoxazole 800 mg / trimethoprim 160 mg oral tablet (4 sources) Dihydrofolate Reductase Inhibitor Antibacterial, Sulfonamide Antimicrobial Start: 03-25-2015 End: 03-26-2015 Sulfamethoxazole-Trime thoprim 1 TABLET tablet Discontinued 1 {tbl} PO TWICE A DAY 3 March 25, 2015 1:00am March 26, 2015 9:41am Start: 03-25-2015 End: 03-26-2015 take 1 tablet by mouth twice daily Sulfamethoxazole-Trimethoprim Discontinu ed 1 TABLET PO TWICE A DAY March 25, 2015 12:00am March 26, 2015 [...] Chronic Chronic obstructive pulmonary disease and bronchiectasis (7 sources) Asthma-chronic obstructive pulmonary disease overlap syndrome; Translations: [Chronic obstructive pulmonary disease, unspecified] Onset: 08-26-2024 Chronic Diabetes mellitus without complication (20 sources) [...] [Chronic post-traumatic headache, not intractable] Chronic Hemorrhoids (4 sources) Hemorrhoids; Translations: [Unspecified hemorrhoids] 09-13-2019 Episodic [...] brain] Onset: 09-14-2017 Chronic Nonspecific chest pain (11 sources) Chest pain, unspecified; Translations: [Chest wall pain] Onset: 06-06-2017 Episodic Other circulatory disease (3 sources) H/O: hypertension; Translations: [Personal history of other diseases of the circulatory system] 01-26-2023 Episodic Other connective tissue disease (4 sources) Pain in left arm; Translations: [Pain in left arm] 09-23-2020 Episodic Other connective tissue disease (4 sources) Pain in upper limb; Translations: [Pain [...] Translations: [Solitary pulmonary nodule] 12-29-2023 Episodic Other lower respiratory disease (4 sources) Tachypnea; Translations: [Tachypnea, not elsewhere classified] 08-25-2024 Episodic Other lower respiratory disease (4 sources) Dyspnea; Translations: [Dyspnea, unspecified] 08-25-2024 Episodic Other lower respiratory disease (1 source) Dyspnea, unspecified; Translations: [Dyspnea, unspecified] Onset: 08-26-2024 Episodic Other lower respiratory disease (1 source) Tachypnea, not elsewhere classified; Translations: [Tachypnea, not elsewhere classified] Onset: 08-26-2024 Episodic Other nervous system disorders (20 sources) Chronic pain; Translations: [Other chronic pain] Onset: 07-31-2015 Resolved: 08-17-2018 08-17-2018 Chronic Other nervous system disorders (1 source) Other chronic pain; Translations: [Chronic pain of left knee] Onset: 12-27-2023 Chronic Other nervous system disorders (1 source) Taste sense altered; Translations: [Parageusia] Episodic Other nervous system disorders (4 sources) Paresthesia of upper limb; Translations: [Paresthesia of skin] 09-23-2020 Episodic Other non-traumatic joint disorders (10 sources) Pain in left knee; Translations: [Pain in joint, lower leg] Onset: 06-26-2018 12-01-2023 Episodic Other non-traumatic joint disorders (4 sources) Pain in elbow; Translations: [Pain in [...] [Obesity, Class III, BMI 40-49.9 (morbid obesity) (HCC)] Onset: 04-03-2019 Chronic Other screening for suspected conditions (not mental disorders or infectious disease) (20 sources) Encounter for screening mammogram for malignant neoplasm of breast; Translations: [Patient encounter status] Onset: 11-20-2017 Episodic Other skin disorders (1 source) Sebaceous cyst of skin; Translations: [Sebaceous cyst] Episodic Pneumonia (except that caused by tuberculosis or sexually transmitted disease) (5 sources) Viral pneumonia; Translations: [Viral pneumonia, unspecified] Onset: 08-26-2024 08-25-2024 Episodic Residual codes; unclassified (20 sources) Obstructive [...] [Tobacco use] 04-09-2014 Episodic Residual codes; unclassified (4 sources) History of repair of umbilical hernia; Translations: [Other specified postprocedural states] 09-23-2020 Episodic Residual codes; unclassified (4 sources) Tobacco user; Translations: [Tobacco use] 08-25-2024 Episodic Residual codes; unclassified (1 source) Tobacco use; Translations: [Tobacco use] Onset: 08-26-2024 Episodic Skin and subcutaneous tissue infections (5 sources) Abscess; Translations: [Cutaneous abscess, unspecified] Episodic Spondylosis; intervertebral disc disorders; other back problems (20 sources) Degeneration of lumbar intervertebral disc; Translations: [Other intervertebral disc degeneration, lumbar region] Onset: 05-27-2014 06-06-2014 Chronic Sprains and strains (6 sources) Strain of muscle, fascia and tendon of lower back, initial encounter; Translations: [Sprain of unspecified site of left knee, initial encounter] Onset: 07-18-2017 09-02-2020 Episodic Substance-related disorders (10 sources) Nicotine dependence, unspecified, uncomplicated; Translations: [Smoker] [...] sources) NAUSEA, EPIGASTRIC PAIN R11.0, R10.13 (CPT 99881); Translations: [NAUSEA, EPIGASTRIC PAIN R11.0, R10.13 (CPT 21752)] Onset: 04-10-2018 Unclassified (2 sources) LOSS OF APPETITIE, COLON CA SCREENING R63.0, Z12.11 (CPT G0121, 50720); Translations: [LOSS OF APPETITIE, COLON CA SCREENING R63.0, Z12.11 (CPT G0121, 59150)] Onset: 01-09-2018 Past or Other Problems Problem [...] Test Name Value Interpretation Reference Range Facility Electrocardiogram reportOrde red By: Reagan Connell on 08-27-2024 EKG study [facility] Cardiovascular Services [address] [place] [address] 12 Lead EKG 08/25/24 1705 MR#: [id number] Acct: [id number] Name: JENNIFER RAMIREZ Rep #:[id number] : 1960 63 From: Reagan Connell MD Attending Dr: Dr. Alcon Cr MD Status: ADM SO Ordering Dr: Zachery Jesus DO Date: 0 08/25/24 [place] [facility] Sex: F H Admitted: 08/25/24 Test Reason : SOB Blood Pressure : */* mmHG Vent. Rate : 80 BPM Atrial Rate : 80 BPM P-R Int : 158 ms QRS Dur : 78 ms QT Int : 378 ms P-R-T Axes : 56 22 47 degrees QTcB Int : 435 ms Normal sinus rhythm Normal ECG Confirmed by REAGAN CONNELL MD ([id number]), newspaper managing editor FABIENNE PINEDA ([id number]) on 57:45:08 AM Referred By: Confirmed By: REAGAN CONNELL MD 08/27/24 0745 Date _ Reagan Connell MD CC: Dr. Zachery Jesus DO; Dr. Alcon Cr MD; Dr. Leonid Rice MD ~ Signed [facility] Other Phone: Absolute lymphocyte countOrd ered By: Modesta Caro on 08-26-2024 Lymphocytes Auto (Unsp spec) [#/Vol] 1.17 10*3/uL 0.83-4.51 [facility] Absolute neutrophil countOrd ered By: Modesta Caro on 08-26-2024 Neutrophils (Bld) [#/Vol] 6.3 10*3/uL 2.0-7.7 [facility] Anion gap in Serum or Plasma Ordered By: Modesta Caro on 08-26-2024 Anion gap [Moles/Vol] 11 mmol/L 5-15 [facility] Automated lymphocyte count a s percentage of total leukocytesOrdered By: Modesta Caro on 08-26-2024 Lymphocytes/100 WBC Auto (Unsp spec) 15.4 % Low 19-41 [facility] BUN/creatinine ratioOrdered By: Modesta Caro on 08-26-2024 Urea nitrogen/Creatinine [Mass ratio] 12.7 mg/mg 10- [facility] Basophil percentageOrdered B y: Modesta Caro on 08-26-2024 Basophils/100 WBC (Bld) 0.1 % 0-1 [facility] CBC W/Diff, Automatedon 08-11 Absolute Lymph 1.17 X10 3/uL Normal 0.83-4.51 [facility] Comment on above: Performed By: #### L 501.2300, L501.5200, L100.0100, L500.4050 #### [facility] [address] [place], [address] Absolute Neut 6.3 X10 3/uL Normal 2.0-7.7 [facility] Comment on above: Performed By: #### L 501.2300, L501.5200, L100.0100, L500.4050 #### [facility] [address] [place], [address] Basophils/100 WBC (Bld) 0.1 % Normal 0-1 [facility] Comment on above: Performed By: #### L 501.2300, L501.5200, L100.0100, L500.4050 #### [facility] [address] [place], [address] Eosinophils/100 WBC (Bld) 0.0 % Normal 0-5 [facility] Comment on above: Performed By: #### L 501.2300, L501.5200, L100.0100, L500.4050 #### [facility] [address] [place], [address] Erythrocyte distribution width (RBC) [Ratio] 13.1 % Normal 11.6-14.6 [facility] Comment on above: Performed By: #### L 501.2300, L501.5200, L100.0100, L500.4050 #### [facility] [address] [place], [address] Hematocrit (Bld) [Volume fraction] 41.7 % Normal 37-47 [facility] Comment on above: Performed By: #### L 501.2300, L501.5200, L100.0100, L500.4050 #### [facility] [address] [place], [address] Hemoglobin (Bld) [Mass/Vol] 13.9 g/dL Normal 12.0-15.0 [facility] Comment on above: Performed By: #### L 501.2300, L501.5200, L100.0100, L500.4050 #### [facility] [address] [place], [address] IG% 0.900 Normal 0.0-0.9 [facility] Comment on above: Result Comment: IG% - Immature Granulocytes (promyelocytes, myelocytes and metamyelocytes) > 1% indicates that a LEFT SHIFT is Present. Performed By: #### L 501.2300, L501.5200, L100.0100, L500.4050 #### [facility] [address] [place], [address] Lymphocytes/100 WBC (Bld) 15.4 % Low 19-41 [facility] Comment on above: Performed By: #### L 501.2300, L501.5200, L100.0100, L500.4050 #### [facility] [address] [place], [address] MCH (RBC) [Entitic mass] 29.0 pg Normal 27.0-32.0 [facility] Comment on above: Performed By: #### L 501.2300, L501.5200, L100.0100, L500.4050 #### [facility] [address] [place], [address] MCHC (RBC) [Mass/Vol] 33.3 g/dL Normal 32-36 [facility] Comment on above: Performed By: #### L 501.2300, L501.5200, L100.0100, L500.4050 #### [facility] [address] [place], [address] MCV (RBC) [Entitic vol] 87.1 fL Normal 81-99 [facility] Comment on above: Performed By: #### L 501.2300, L501.5200, L100.0100, L500.4050 #### [facility] [address] [place], [address] Monocytes/100 WBC (Bld) 1.1 % Normal 0-10 [facility] Comment on above: Performed By: #### L 501.2300, L501.5200, L100.0100, L500.4050 #### [facility] [address] [place], [address] Neutrophils/100 WBC (Bld) 82.5 % High 47-70 [facility] Comment on above: Performed By: #### L 501.2300, L501.5200, L100.0100, L500.4050 #### [facility] [address] [place], [address] Nucleated RBC (Bld) [#/Vol] 0 10*3/uL Normal 0-5 [facility] Comment on above: Performed By: #### L 501.2300, L501.5200, L100.0100, L500.4050 #### [facility] [address] [place], [address] Platelet mean volume (Bld) [Entitic vol] 11.3 fL Normal 6.2-12.0 [facility] Comment on above: Performed By: #### L 501.2300, L501.5200, L100.0100, L500.4050 #### [facility] [address] [place], [address] Platelets (Bld) [#/Vol] 204 10*3/uL Normal 150-450 [facility] Comment on above: Performed By: #### L 501.2300, L501.5200, L100.0100, L500.4050 #### [facility] [address] [place], [address] RBC (Bld) [#/Vol] 4.79 10*6/uL Normal 4.2-5.4 [facility] Comment on above: Performed By: #### L 501.2300, L501.5200, L100.0100, L500.4050 #### [facility] [address] [place], [address] RDW SD 41.5 fl Normal 35.1-43.9 [facility] Comment on above: Performed By: #### L 501.2300, L501.5200, L100.0100, L500.4050 #### [facility] [address] [place], [address] WBC (Bld) [#/Vol] 7.6 10*3/uL Normal 4.4-11.0 [facility] Comment on above: Performed By: #### L 501.2300, L501.5200, L100.0100, L500.4050 #### [facility] [address] [place], [address] Comprehensive Metabolic Prof ilon 08-26-2024 ALK PHOS 138 U/L High 35-104 [facility] Comment on above: Performed By: #### L 501.2300, L501.5200, L100.0100, L500.4050 #### [facility] [address] [place], [address] BUN/CRE 12.7 RATIO Normal 10-20 [facility] Comment on above: Performed By: #### L 501.2300, L501.5200, L100.0100, L500.4050 #### [facility] [address] [place], [address] ECRCL 77.79 ml/min Normal 50-250 [facility] Comment on above: Performed By: #### L 501.2300, L501.5200, L100.0100, L500.4050 #### [facility] [address] [place], [address] GAP 11 Normal 5-15 [facility] Comment on above: Performed By: #### L 501.2300, L501.5200, L100.0100, L500.4050 #### [facility] [address] [place], [address] Potassium [Moles/Vol] 3.7 mmol/L Normal 3.3-5.1 [facility] Comment on above: Performed By: #### L 501.2300, L501.5200, L100.0100, L500.4050 #### [facility] [address] [place], [address] T PROT 7.0 g/dL Normal 5.9-8.4 [facility] Comment on above: Performed By: #### L 501.2300, L501.5200, L100.0100, L500.4050 #### [facility] [address] [place], [address] Comprehensive Metabolic Prof ilOrdered By: Modesta Caro on 08-26-2024 Albumin [Mass/Vol] 3.8 g/dL 3.4-4.8 [facility] Comment on above: Performed By: #### L 501.2300, L501.5200, L100.0100, L500.4050 #### [facility] [address] [place], [address] Albumin/Globulin [Mass ratio] 1.2 {ratio} 0.9-2.4 [facility] Comment on above: Performed By: #### L 501.2300, L501.5200, L100.0100, L500.4050 #### [facility] [address] [place], [address] ALT [Catalytic activity/Vol] 16 U/L <35 [facility] Comment on above: Performed By: #### L 501.2300, L501.5200, L100.0100, L500.4050 #### [facility] [address] [place], [address] AST [Catalytic activity/Vol] 18 U/L <32 [facility] Comment on above: Performed By: #### L 501.2300, L501.5200, L100.0100, L500.4050 #### [facility] [address] [place], [address] Bilirubin [Mass/Vol] 0.27 mg/dL 0.00-1.30 [facility] Comment on above: Performed By: #### L 501.2300, L501.5200, L100.0100, L500.4050 #### [facility] [address] [place], [address] Calcium [Mass/Vol] 9.2 mg/dL 7.6-11.0 [facility] Comment on above: Performed By: #### L 501.2300, L501.5200, L100.0100, L500.4050 #### [facility] [address] [place], [address] Chloride [Moles/Vol] 104 mmol/L 98-108 [facility] Comment on above: Performed By: #### L 501.2300, L501.5200, L100.0100, L500.4050 #### [facility] [address] [place], [address] CO2 [Moles/Vol] 23.6 mmol/L 21.0-32.0 [facility] Comment on above: Performed By: #### L 501.2300, L501.5200, L100.0100, L500.4050 #### [facility] [address] [place], [address] Creatinine [Mass/Vol] 0.78 mg/dL 0.70-1.20 [facility] Comment on above: Performed By: #### L 501.2300, L501.5200, L100.0100, L500.4050 #### [facility] [address] [place], [address] GFR/1.73 sq M.predicted among non-blacks MDRD (S/P/Bld) [Vol rate/Area] 86 mL/min/{1.73_m2} >60 [facility] Comment on above: Result Comment: mL/m in/1.73m2 CKD-EPI Creatinine Equation (2020) Performed By: #### L 501.2300, L501.5200, L100.0100, L500.4050 #### [facility] [address] [place], [address] mL/min/1.73m2 CKD-EP I Creatinine Equation (2020) Globulin (S) [Mass/Vol] 3.1 g/dL 2.2-4.2 [facility] Comment on above: Performed By: #### L 501.2300, L501.5200, L100.0100, L500.4050 #### [facility] [address] [place], [address] Glucose [Mass/Vol] 256 mg/dL High 70-99 [facility] Comment on above: Performed By: #### L 501.2300, L501.5200, L100.0100, L500.4050 #### [facility] [address] [place], [address] Sodium [Moles/Vol] 139 mmol/L 133-145 [facility] Comment on above: Performed By: #### L 501.2300, L501.5200, L100.0100, L500.4050 #### [facility] [address] [place], [address] Urea nitrogen [Mass/Vol] 10 mg/dL 4-19 [facility] Comment on above: Performed By: #### L 501.2300, L501.5200, L100.0100, L500.4050 #### [facility] [address] [place], [address] Eosinophil percentageOrdered By: Modesta Caro on 08-26-2024 Eosinophils/100 WBC (Bld) 0.0 % 0-5 [facility] Erythrocyte distribution wid th ratioOrdered By: Modesta Caro on 08-26-2024 Erythrocyte distribution width (RBC) [Ratio] 13.1 % 11.6-14.6 [facility] Erythrocyte distribution wid th standard deviationOrdered By: Modesta Caro on 08-26-2024 Erythrocyte distribution width (RBC) [Ratio] 41.5 fl 35.1-43.9 [facility] Gram stainOrdered By: Bhupendra Caro on 08-26-2024 Microscopic observation Gram stain Nom (Unsp spec) [facility] Hematocrit Auto (Bld) [Volum e fraction]Ordered By: Modesta Caro on 08-26-2024 Hematocrit (Bld) [Volume fraction] 41.7 % 37-47 [facility] Hemoglobin measurementOrdere d By: Modesta Caro on 08-26-2024 Hemoglobin (Bld) [Mass/Vol] 13.9 g/dL 12.0-15.0 [facility] Immature granulocytes/100 WB C Auto (Bld)Ordered By: Modesta Caro on 08-26-2024 Immature granulocytes/100 WBC (Bld) 0.900 % 0.0-0.9 [facility] Comment on above: IG% - Immature Granu locytes (promyelocytes, myelocytes and metamyelocytes) > 1% indicates that a LEFT SHIFT is Present. MCV (mean corpuscular volume ) determinationOrdered By: Modesta Caro on 08-26-2024 MCV (RBC) [Entitic vol] 87.1 fL 81-99 [facility] Magnesiumon 08-26-2024 Magnesium [Mass/Vol] 2.2 mg/dL Normal 1.5-2.2 [facility] Comment on above: Performed By: #### L 501.2300, L501.5200, L100.0100, L500.4050 ####[facility] [address] [place], [place], [id number] Magnesium measurement (mass/ volume)Ordered By: Modesta Caro on 08-26-2024 Magnesium (Unsp spec) [Mass/Vol] 2.2 mg/dL 1.5-2.2 [facility] Mean corpuscular hemoglobin (MCH) determinationOrdered By: Modesta Caro on 08-26-2024 MCH (RBC) [Entitic mass] 29.0 pg 27.0-32.0 [facility] Mean corpuscular hemoglobin concentration (MCHC) determinationOrdered By: Modesta Caro on 08-26-2024 MCHC (RBC) [Mass/Vol] 33.3 g/dL 32-36 [facility] Mean platelet volume determi nationOrdered By: Modesta Caro on 08-26-2024 Platelet mean volume (Bld) [Entitic vol] 11.3 fL 6.2-12.0 [facility] Monocyte percentageOrdered B y: Modesta Caro on 08-26-2024 Monocytes/100 WBC (Bld) 1.1 % 0-10 [facility] Neutrophil percentageOrdered By: Modesta Caro on 08-26-2024 Neutrophils/100 WBC (Bld) 82.5 % High 47-70 [facility] Nucleated red blood cell per centageOrdered By: Modesta Caro on 08-26-2024 Nucleated RBC/100 WBC (Bld) [Ratio] 0 % 0-5 [facility] Phosphoruson 08-26-2024 Phosphate [Mass/Vol] 3.4 mg/dL Normal 2.7-4.5 [facility] Comment on above: Performed By: #### L 501.2300, L501.5200, L100.0100, L500.4050 #### [facility] [address] [place], [place], [address] Platelet countOrdered By: Hayley Caro on 08-26-2024 Platelets (Bld) [#/Vol] 204 10*3/uL 150-450 [facility] Potassium measurement (mass/ volume)Ordered By: Modesta Caro on 08-26-2024 Potassium (Unsp spec) [Mass/Vol] 3.7 mmol/L 3.3-5.1 [facility] RBC Auto (Bld) [#/Vol]Ordere d By: Modesta Caro on 08-26-2024 RBC (Bld) [#/Vol] 4.79 10*6/uL 4.2-5.4 [facility] RESPIRATORY PANEL MOLECULARo n 08-26-2024 RP PANEL ADENOVIRUS Not Detected INFLUENZA A Not Detected INFLUENZA A (SUBTYPE H1) Not Detected INFLUENZA A (SUBTYPE H3) Not Detected INFLUENZA B Not Detected HUMAN METAPHNEUMO Not Detected PARAINFLUENZA 1 Not Detected PARAINFLUENZA 2 Not Detected PARAINFLUENZA 3 Not Detected PARAINFLUENZA 4 Not Detected RHINOVIRUS Not Detected RSV A Not Detected RSV B Not Detected Normal [facility] Comment on above: Performed By: #### M 100.638 #### [facility] [address] [place], [address] Serum or plasma alkaline haley sphatase measurementOrdered By: Modesta Caro on 08-26-2024 ALP [Catalytic activity/Vol] 138 U/L High 35-104 [facility] Total proteinOrdered By: Adelina Caro on 08-26-2024 Protein [Mass/Vol] 7.0 g/dL 5.9-8.4 [facility] White blood cell (WBC) count Ordered By: Modesta Caro on 08-26-2024 WBC (Bld) [#/Vol] 7.6 10*3/uL 4.4-11.0 [facility] Absolute lymphocyte countOrd ered By: Zachery Jesus on 08-25-2024 Lymphocytes Auto (Unsp spec) [#/Vol] 2.45 10*3/uL 0.83-4.51 [facility] Absolute neutrophil countOrd ered By: Zachery Jesus on 08-25-2024 Neutrophils (Bld) [#/Vol] 5.1 10*3/uL 2.0-7.7 [facility] Anion gap in Serum or Plasma Ordered By: Zachery Jesus on 08-25-2024 Anion gap [Moles/Vol] 13 mmol/L 07-25 [facility] Automated lymphocyte count a s percentage of total leukocytesOrdered By: Zachery Jesus on 08-25-2024 Lymphocytes/100 WBC Auto (Unsp spec) 27.7 % [facility] BUN/creatinine ratioOrdered By: Zachery Jesus on 08-25-2024 Urea nitrogen/Creatinine [Mass ratio] 12.6 mg/mg 12-30 [facility] Basic Metabolic Profile (BMP )on 08-25-2024 BUN/CRE 12.6 RATIO Normal 12-30 [facility] Comment on above: Performed By: #### L 501.2450, L500.2500, L500.3400 ####[facility] [address] [place], [place], [id number] Calcium [Mass/Vol] 9.4 mg/dL Normal 7.6-11.0 [facility] Comment on above: Performed By: #### L 501.2450, L500.2500, L500.3400 ####[facility] [address] [place], [address] Chloride [Moles/Vol] 106 mmol/L Normal 98-108 [facility] Comment on above: Performed By: #### L 501.2450, L500.2500, L500.3400 ####[facility] [address] [place], [address] CO2 [Moles/Vol] 22.2 mmol/L Normal 21.0-32.0 [facility] Comment on above: Performed By: #### L 501.2450, L500.2500, L500.3400 ####[facility] [address] [place], [address] Creatinine [Mass/Vol] 0.83 mg/dL Normal 0.70-1.20 [facility] Comment on above: Performed By: #### L 501.2450, L500.2500, L500.3400 ####[facility] [address] [place], [address] ECRCL 73.59 ml/min Normal 50-250 [facility] Comment on above: Performed By: #### L 501.2450, L500.2500, L500.3400 ####[facility] [address] [place], [address] GAP 13 Normal 5-15 [facility] Comment on above: Performed By: #### L 501.2450, L500.2500, L500.3400 ####[facility] [address] [place], [address] GFR/1.73 sq M.predicted among non-blacks MDRD (S/P/Bld) [Vol rate/Area] 80 mL/min/{1.73_m2} Normal >60 [facility] Comment on above: Result Comment: mL/m in/1.73m2 CKD-EPI Creatinine Equation (2020) Performed By: #### L 501.2450, L500.2500, L500.3400 ####[facility] [address] [place], [address] Glucose [Mass/Vol] 107 mg/dL High 70-99 [facility] Comment on above: Performed By: #### L 501.2450, L500.2500, L500.3400 ####[facility] [address] [place], [address] Potassium [Moles/Vol] 3.8 mmol/L Normal 3.3-5.1 [facility] Comment on above: Result Comment: Hemo lysis present, Results??could be affected. ?? Performed By: #### L 501.2450, L500.2500, L500.3400 ####[facility] [address] [place], [address] Sodium [Moles/Vol] 142 mmol/L Normal 133-145 [facility] Comment on above: Performed By: #### L 501.2450, L500.2500, L500.3400 ####[facility] [address] [place], [address] Urea nitrogen [Mass/Vol] 10 mg/dL Normal 4-19 [facility] Comment on above: Performed By: #### L 501.2450, L500.2500, L500.3400 ####[facility] [address] [place], [address] Basophil percentageOrdered B y: Zachery Jesus on 08-25-2024 Basophils/100 WBC (Bld) 0.5 % 0-1 [facility] Bilirubin directOrdered By: Zachery Jesus on 08-25-2024 Bilirubin.direct [Mass/Vol] 0.10 mg/dL 0.00-0.30 [facility] Comment on above: Hemolysis present, R esults could be affected. Bilirubin, totalOrdered By: Zachery Jesus on 08-25-2024 Bilirubin [Mass/Vol] 0.34 mg/dL 0.00-1.30 [facility] CBC W/Diff, Automatedon 06-1 -2024 Absolute Lymph 2.45 X10 3/uL Normal 0.83-4.51 [facility] Comment on above: Performed By: #### L 100.0100 #### [facility] [address] [place], [address] Absolute Neut 5.1 X10 3/uL Normal 2.0-7.7 [facility] Comment on above: Performed By: #### L 100.0100 #### [facility] [address] [place], [address] Basophils/100 WBC (Bld) 0.5 % Normal 0-1 [facility] Comment on above: Performed By: #### L 100.0100 #### [facility] [address] [place], [address] Eosinophils/100 WBC (Bld) 3.5 % Normal 0-5 [facility] Comment on above: Performed By: #### L 100.0100 #### [facility] [address] [place], [address] Erythrocyte distribution width (RBC) [Ratio] 13.2 % Normal 11.6-14.6 [facility] Comment on above: Performed By: #### L 100.0100 #### [facility] [address] [place], [address] Hematocrit (Bld) [Volume fraction] 44.2 % Normal 37-47 [facility] Comment on above: Performed By: #### L 100.0100 #### [facility] [address] [place], [address] Hemoglobin (Bld) [Mass/Vol] 14.4 g/dL Normal 12.0-15.0 [facility] Comment on above: Performed By: #### L 100.0100 #### [facility] [address] [place], [address] IG% 0.500 Normal 0.0-0.9 [facility] Comment on above: Result Comment: IG% - Immature Granulocytes (promyelocytes, myelocytes and metamyelocytes) > 1% indicates that a LEFT SHIFT is Present. Performed By: #### L 100.0100 #### [facility] [address] [place], [address] Lymphocytes/100 WBC (Bld) 27.7 % Normal 19-41 [facility] Comment on above: Performed By: #### L 100.0100 #### [facility] [address] [place], [address] MCH (RBC) [Entitic mass] 29.2 pg Normal 27.0-32.0 [facility] Comment on above: Performed By: #### L 100.0100 #### [facility] [address] [place], [address] MCHC (RBC) [Mass/Vol] 32.6 g/dL Normal 32-36 [facility] Comment on above: Performed By: #### L 100.0100 #### [facility] [address] [place], [address] MCV (RBC) [Entitic vol] 89.7 fL Normal 81-99 [facility] Comment on above: Performed By: #### L 100.0100 #### [facility] [address] [place], [address] Monocytes/100 WBC (Bld) 10.7 % High 0-10 [facility] Comment on above: Performed By: #### L 100.0100 #### [facility] [address] [place], [address] Neutrophils/100 WBC (Bld) 57.1 % Normal 47-70 [facility] Comment on above: Performed By: #### L 100.0100 #### [facility] [address] [place], [address] Nucleated RBC (Bld) [#/Vol] 0 10*3/uL Normal 0-5 [facility] Comment on above: Performed By: #### L 100.0100 #### [facility] [address] [place], [address] Platelet mean volume (Bld) [Entitic vol] 11.8 fL Normal 6.2-12.0 [facility] Comment on above: Performed By: #### L 100.0100 #### [facility] [address] [place], [address] Platelets (Bld) [#/Vol] 223 10*3/uL Normal 150-450 [facility] Comment on above: Performed By: #### L 100.0100 #### [facility] [address] [place], [address] RBC (Bld) [#/Vol] 4.93 10*6/uL Normal 4.2-5.4 [facility] Comment on above: Performed By: #### L 100.0100 #### [facility] [address] [place] [place], [address] RDW SD 43.5 fl Normal 35.1-43.9 [facility] Comment on above: Performed By: #### L 100.0100 #### [facility] [address] [place], [address] WBC (Bld) [#/Vol] 8.9 10*3/uL Normal 4.4-11.0 [facility] Comment on above: Performed By: #### L 100.0100 #### [facility] [address] [place], [address] CTA Chest W/WO Contraston CTA Chest W/WO Contrast [facility] Imaging Services [address] [place] [address] CTA Chest W/WO Contrast MR#: [id number] Acct: [id number] Name: JENNIFER RAMIREZ Rep #: [id number] : 1960 F 63 From: Marcello Saavedra PCP: Dr. Leonid Rice MD Status: REG ER Study: CTA Chest W/WO Contrast Date of Exam: 08/25/24 Exam# [id number] Ordering Dr: Zachery Jesus DO PROCEDURE: CTA CHEST W/WO CONTRAST 08/25/2024 REASON FOR EXAM: PULMONARY EMBOLISM TECHNIQUE: CTA CHEST W/WO CONTRAST Multiplanar and multisequence images were obtained. One or more dose reduction techniques were used (e.g., Automated exposure control, adjustment of the mA and/or kV according to patient size, use of iterative reconstruction technique). COMPARISON: 01/26/2023 FINDINGS: Heart size is within normal limits. No significant pericardial effusion or coronary artery calcifications. Normal caliber thoracic aorta without dissection. Normal caliber pulmonary arteries without filling defects. No bulky adenopathy. No acute findings in the upper abdomen. Superficial soft tissues are within normal limits. Central airways are patent. No acute infiltrates, pleural effusion or pneumothorax. No pulmonary mass. No acute osseous abnormality. CT/CTA Chest W/WO Contrast IMPRESSION: No acute process. Reading [facility] CC: Dr. Zachery Jesus DO; Dr. Leonid Rice MD 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: Signed Normal [facility] Carbon dioxide, total [Moles /volume] in Central venous bloodOrdered By: Zachery Jesus on 08-25-2024 CO2 [Moles/Vol] 22.2 mmol/L 21.0-32.0 [facility] Chest 1 View (Portable)on Chest 1 View (Portable) [facility] Imaging Services [address] [place], [place] [address] Chest 1 View (Portable) MR#: [id number] Acct: [id number] Name: JENNIFER RAMIREZ Rep #: [id number] : 1960 F 63 From: Roberto Stephens PCP: Dr. Leonid Rice MD Status: REG ER Study: Chest 1 View (Portable) Date of Exam: 08/25/24 Exam# [id number] Ordering Dr: Zachery Jesus DO PROCEDURE: CHEST 1 VIEW (PORTABLE) 08/25/2024 REASON FOR EXAM: DYSPNEA TECHNIQUE: Frontal view of the chest. COMPARISON: 01/26/2023 FINDINGS: Mild pulmonary vascular congestion. No focal consolidations. No pleural effusion or pneumothorax. Cardiac silhouette is unchanged. No acute fractures. RAD/Chest 1 View (Portable) IMPRESSION: Mild pulmonary vascular congestion. No focal consolidations. Reading Location: [facility] CC: Dr. Zachery Jesus DO; Dr. Leonid Rice MD 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: Signed Normal [facility] Chloride assayOrdered By: Oscar Jesus on 08-25-2024 Chloride [Moles/Vol] 106 mmol/L 98-108 [facility] Emergency Department Summary on 08-25-2024 Emergency Department Summary [facility] Medical Records Department [address] [place] [address] Emergency Department Summary 08/25/24 MR#: [id number] Acct: [id number] Name: JENNIFER RAMIREZ Rep #: [id number] : 1960 63 From: Zachery Jesus DO PCP: Dr. Leonid Rice MD Status:ADM SO Location: [address] History of Present Illness Chief Complaint: Abd Pain Informant: patient Narrative Narrative: 63-year-old female presenting to the emergency room with chief complaint of shortness of breath. Patient states she has a history of asthma. She states she is not currently on any medications. She states that her father and then her brother was found in the home. She had to travel to [place] where she has been taking care of family affairs and the . She states that for the past week she has had a progressive worsening shortness of breath and intermittent fevers cough with occasional sputum production. She also notes an epigastric discomfort particularly with eating. She states that the hot weather in [place] does not agree with her health. She returned home today and came to the emergency department. She does not wear supplemental oxygen at home. She denies history of coronary artery disease or congestive heart failure. She is a smoker. [facility] Medical History Tobacco abuse GERD (gastroesophageal reflux disease) Asthma Depression Anxiety Home Medications ???Medication ???Instructions ???Recorded ???Last Taken ???Type fluoxetine 20 mg capsule 20 mg PO QHS 03/24/15 03/23/15 His tory topiramate 25 mg tablet (Topamax) 25 mg PO QHS 03/24/15 03/23/15 Hi story trazodone 100 mg tablet 200 mg PO QHS 03/24/15 03/23/15 Hi story albuterol sulfate 90 mcg/actuation 2 puff inhalation Q4H PRN PRN So b 03/25/15 Unknown Rx aerosol inhaler (ProAir HFA) /Or Wheezing ##1 budesonide 180 mcg/actuation 1 puff inhalation BID ##1 03/25/15 Unknown Rx breath activated powder inhaler (Pulmicort Flexhaler) Allergy/AdvReac Type Severity Reaction Status Date / Time latex Allergy Rash Verified 08/25/24 15:40 chocolate AdvReac Shortness Verified 08/25/24 22:52 of breath Family History Mother Myocardial infarction CVA (cerebral vascular accident) Diabetes Brother Asthma Myocardial infarction Father Hypertension Surgical History History of umbilical hernia repair History of cholecystectomy History of appendectomy Social History household members: none housing: house Smoking Status: Current every day smoker tobacco type: cigarettes alcohol intake: never what type of physical activity do you participate in: none do you feel safe at home: Yes ROS ROS ED Constitutional Constitutional ED: Reports chills and fever(s); Denies sweats or weight loss Eyes Eyes: Denies change in vision or diplopia ENT ENT ED: Denies ear pain, rhinorrhea or sore throat Cardiovascular Cardiovascular: Denies chest pain, orthopnea, palpitations or racing heartbeat Respiratory/Chest Respiratory/Chest: Reports cough, dyspnea and dyspnea on exertion; Denies orthopnea Gastrointestinal Gastrointestinal: Reports abdominal pain; Denies diarrhea, nausea or vomiting Genitourinary Genitourinary ED: Denies dysuria, hematuria or urinary frequency Musculoskeletal Musculoskeletal: Denies arthralgias or myalgias Integumentary Denies abscess or rash Neurologic Neurologic: Denies headache(s) or weakness Psychiatric Psychiatric: Denies anxiety, depression, suicidal ideation or suicidal thoughts Endocrine Endocrinology: Denies polydipsia, polyphagia or polyuria Allergic/Immunologic Allergic/Immunologic ED: Denies mouth swelling, tongue swelling or urticaria EXAM Physical Exam Const Vital Signs: 08/25/24 15:37 08/25/24 15:40 08/25/24 15:55 Temperature 99.7 F H 99.7 F H Temperature Source Oral Oral Pulse Rate 100 100 Respiratory Rate 22 H 22 H Respiratory Effort Short of Breath Labored Respiratory Depth Shallow Respiratory Pattern Tachypnea Blood Pressure 149/97 H 149/97 H Blood Pressure Mean 114 114 Pulse Ox 98 98 Oxygen Delivery Method Room Air Room Air Room Air 08/25/24 16:41 08/25/24 17:00 08/25/24 17:06 Temperature 99.7 F H 99.2 F H Temperature Source Oral Oral Pulse Rate 86 87 88 Respiratory Rate 25 H 26 H 28 H Respiratory Effort Respiratory Depth Respiratory Pattern Tachypnea Blood Pressure 163/86 H 148/93 H Blood Pressure Mean 111 111 Pulse Ox 96 95 Oxygen Delivery Method Room Air Room Air 08/25/24 17:45 (more content not included)... Normal [facility] Eosinophil percentageOrdered By: Zachery Jesus on 08-25-2024 Eosinophils/100 WBC (Bld) 3.5 % 0-5 [facility] Erythrocyte distribution wid th ratioOrdered By: Zachery Jesus on 08-25-2024 Erythrocyte distribution width (RBC) [Ratio] 13.2 % 11.6-14.6 [facility] Erythrocyte distribution wid th standard deviationOrdered By: Zachery Jesus on 08-25-2024 Erythrocyte distribution width (RBC) [Ratio] 43.5 fl 35.1-43.9 [facility] Glomerular filtration rate ( GFR) estimation/1.73 sq m using serum, plasma, or whole bOrdered By: Zachery Jesus on 08-25-2024 GFR/1.73 sq M.predicted among non-blacks MDRD (S/P/Bld) [Vol rate/Area] 80 mL/min/{1.73_m2} >60 [facility] Comment on above: mL/min/1.73m2 CKD-EP I Creatinine Equation (2020) H AND P Exam - [facility] 08-25-2024 H&P Exam - Hospitalist [facility] Medical Records Department [address] [place] [address] H P Exam - Hospitalist 08/25/242031 MR#: [id number] Acct: [id number] Name: JENNIFRE RAMIREZ Rep #: [id number] : 1960 63 From: Modesta Caro DO PCP: Dr. Leonid Rice MD Status:ADM SO Location: [id number] HPI - General General Date of Admission: 08/25/24 Date of Service: 08/25/24 Chief Complaint: Cough and shortness of breath HPI Narrative JENNIFER MCMULLEN, is a 63 F who presented to the emergency department at [facility] on 08/25/2024 due to chief complaint of cough and shortness of breath. Patient has a history of COPD and asthma and currently still smokes tobacco. She states her father and then her brother was found in his home. She has been traveling back and forth from [place] taking care of family affairs and the . She reported that for about a week prior to presentation she has had progressively worsening shortness of breath and intermittent fevers, cough, and intermittent clear sputum production. Given the fact that she has not been clinically improving she came to the emergency department. She does not wear oxygen at baseline but is on multiple inhalers consistent with COPD diagnosis. Patient states she is still having some congestion, decreased p.o. intake due to lack of appetite, and myalgias. Vital signs on presentation showed a temperature of 99.7, heart rate was 100, respiratory rate was 22, blood pressure was 149/97 and pulse ox is 98% on room air. CBC is unremarkable other than a monocytosis at 10.7%. Chemistry panel is unremarkable. Lipase is negative at 8. Chest x-ray showed mild pulmonary vascular congestion but no focal infiltrates and CTA of the chest was performed and shows no acute processes. She was given several rounds of nebulizers and IV Solu-Medrol in the emergency department however she remained tachypneic, mildly tachycardic, and dyspneic. She did not require oxygen at rest or with exertion but given her symptoms she will be admitted as observation with anticipated hospitalization less than 2 midnights. [facility] Medical History Tobacco abuse GERD (gastroesophageal reflux disease) Asthma Depression Anxiety Home Medications ???Medication ???Instructions ???Recorded ???Last Taken ???Type fluoxetine 20 mg capsule 20 mg PO QHS 03/24/15 03/23/15 His tory topiramate 25 mg tablet (Topamax) 25 mg PO QHS 03/24/15 03/23/15 Hi story trazodone 100 mg tablet 200 mg PO QHS 03/24/15 03/23/15 Hi story albuterol sulfate 90 mcg/actuation 2 puff inhalation Q4H PRN PRN So b 03/25/15 Unknown Rx aerosol inhaler (ProAir HFA) /Or Wheezing ##1 budesonide 180 mcg/actuation 1 puff inhalation BID ##1 03/25/15 Unknown Rx breath activated powder inhaler (Pulmicort Flexhaler) Allergy/AdvReac Type Severity Reaction Status Date / Time latex Allergy Rash Verified 08/25/24 15:40 Family History Mother Myocardial infarction CVA (cerebral vascular accident) Diabetes Brother Asthma Myocardial infarction Father Hypertension Surgical History History of umbilical hernia repair History of cholecystectomy History of appendectomy Social History household members: none housing: house Smoking Status: Current every day smoker tobacco type: cigarettes alcohol intake: never what type of physical activity do you participate in: none do you feel safe at home: Yes ROS Constitutional Constitutional: Reports anorexia, chills, fatigue and malaise; Denies change in weight, fever(s), night sweats, weakness or other Eyes Eyes: Reports other Details: Eye redness ; Denies blurry vision, change in eye color, change in vision, discharge from eye(s), double vision, erythema, eye pain or loss of vision ENT HEENT: Reports nasal congestion; Denies abnormal hearing, dysphagia, ear pain, epistaxis, headache(s), hearing loss, nasal discharge, post nasal drip, sinus pressure, sore throat or other Cardiovascular Cardiovascular: Reports dyspnea on exertion; Denies chest pain, claudication, edema, lightheadedness, orthopnea, palpitations, paroxysmal nocturnal dyspnea, rapid heart rate, syncope or other Respiratory/Chest Respiratory/Chest: Reports cough, dyspnea, shortness of breath at rest, shortness of breath with exertion and wheezing; Denies excessive phlegm production, hemoptysis, productive cough or other Gastrointestinal Gastrointestinal: Denies abdominal pain, coffee ground emesis, constipation, diarrhea, dyspepsia, hematemesis, hematochezia, loose stools, melena, nausea, vomiting or other Genito (more content not included)... Normal [facility] Hematocrit Auto (Bld) [Volum e fraction]Ordered By: Zachery Jesus on 08-25-2024 Hematocrit (Bld) [Volume fraction] 44.2 % 37-47 [facility] Hemoglobin measurementOrdere d By: Zachery Jesus on 08-25-2024 Hemoglobin (Bld) [Mass/Vol] 14.4 g/dL 12.0-15.0 [facility] Immature granulocytes/100 WB C Auto (Bld)Ordered By: Zachery Jesus on 08-25-2024 Immature granulocytes/100 WBC (Bld) 0.500 % 0.0-0.9 [facility] Comment on above: IG% - Immature Granu locytes (promyelocytes, myelocytes and metamyelocytes) > 1% indicates that a LEFT SHIFT is Present. Influenza virus A and B and SARS-CoV-2 (COVID-19) and Respiratory syncytial virus RNAOrdered By: Zachery Jesus on 08-25-2024 SARS-CoV-2 (COVID-19) RNA ZANA+probe Ql (Unsp spec) [facility] Laboratory - Chemistry and C hemistry - challengeOrdered By: Zachery Jesus on 08-25-2024 AST [Catalytic activity/Vol] 25 U/L <32 [facility] Comment on above: Hemolysis present, R esults could be affected. Lipaseon 08-25-2024 Lipase [Catalytic activity/Vol] 8 U/L Low 13-75 [facility] Comment on above: Result Comment: Plea se note: LIPASE revised reference range effective 22. New Lipase methodology. Expected to produce lower values than the previous assay method. NEW Reference Range: 13 - 75 U/L Performed By: #### L 501.2450, L500.2500, L500.3400 ####[facility] [address] [place], [address] Lipase measurementOrdered By : Zachery Jesus on 08-25-2024 Lipase [Catalytic activity/Vol] 8 U/L Low 13-75 [facility] Comment on above: Please note:LIPASE r evised reference range effective 22. New Lipase methodology. Expected to produce lower values than the previous assay method. NEW Reference Range: 13 - 75 U/L Liver Profileon 08-25-2024 Albumin [Mass/Vol] 4.0 g/dL Normal 3.4-4.8 [facility] Comment on above: Performed By: #### L 501.2450, L500.2500, L500.3400 ####[facility] [address] [place], [address] ALK PHOS 148 U/L High 35-104 [facility] Comment on above: Performed By: #### L 501.2450, L500.2500, L500.3400 ####[facility] [address] [place], [address] ALT [Catalytic activity/Vol] 16 U/L Normal <=34 [facility] Comment on above: Performed By: #### L 501.2450, L500.2500, L500.3400 ####[facility] [address] [place], [address] AST [Catalytic activity/Vol] 25 U/L Normal <=31 [facility] Comment on above: Result Comment: Hemo lysis present, Results??could be affected. ?? Performed By: #### L 501.2450, L500.2500, L500.3400 ####[facility] [address] [place], [address] Bilirubin [Mass/Vol] 0.34 mg/dL Normal 0.00-1.30 [facility] Comment on above: Performed By: #### L 501.2450, L500.2500, L500.3400 ####[facility] [address] [place], [address] Bilirubin.direct [Mass/Vol] 0.10 mg/dL Normal 0.00-0.30 [facility] Comment on above: Result Comment: Hemo lysis present, Results??could be affected. ?? Performed By: #### L 501.2450, L500.2500, L500.3400 ####[facility] [address] [place], [address] Globulin (S) [Mass/Vol] 3.3 g/dL Normal 2.2-4.2 [facility] Comment on above: Performed By: #### L 501.2450, L500.2500, L500.3400 ####[facility] [address] [place], [address] T PROT 7.3 g/dL Normal 5.9-8.4 [facility] Comment on above: Performed By: #### L 501.2450, L500.2500, L500.3400 ####[facility] [address] [place], [address] M100.678on 08-25-2024 M100.678 Pending SARS-CoV-2 (COVID 19) Negative INFLUENZA A Negative INFLUENZA B Negative RSV PCR Negative Normal [facility] Comment on above: Performed By: #### M 100.678 #### [facility] [address] [place], [address] MCV (mean corpuscular volume ) determinationOrdered By: Zachery Jesus on 08-25-2024 MCV (RBC) [Entitic vol] 89.7 fL 81-99 [facility] Mean corpuscular hemoglobin (MCH) determinationOrdered By: Zachery Jesus on 08-25-2024 MCH (RBC) [Entitic mass] 29.2 pg 27.0-32.0 [facility] Mean corpuscular hemoglobin concentration (MCHC) determinationOrdered By: Zachery Jesus on 08-25-2024 MCHC (RBC) [Mass/Vol] 32.6 g/dL 32-36 [facility] Mean platelet volume determi nationOrdered By: Zachery Jesus on 08-25-2024 Platelet mean volume (Bld) [Entitic vol] 11.8 fL 6.2-12.0 [facility] Monocyte percentageOrdered B y: Zachery Jesus on 08-25-2024 Monocytes/100 WBC (Bld) 10.7 % High 0-10 [facility] Neutrophil percentageOrdered By: Zachery Jesus on 08-25-2024 Neutrophils/100 WBC (Bld) 57.1 % 47-70 [facility] Nucleated red blood cell per centageOrdered By: Zachery Jesus on 08-25-2024 Nucleated RBC/100 WBC (Bld) [Ratio] 0 % 0-5 [facility] Platelet countOrdered By: Oscar Jesus on 08-25-2024 Platelets (Bld) [#/Vol] 223 10*3/uL 150-450 [facility] Potassium measurement (mass/ volume)Ordered By: Zachery Jesus on 08-25-2024 Potassium (Unsp spec) [Mass/Vol] 3.8 mmol/L 3.3-5.1 [facility] Comment on above: Hemolysis present, R esults could be affected. RBC Auto (Bld) [#/Vol]Ordere d By: Zachery Jesus on 08-25-2024 RBC (Bld) [#/Vol] 4.93 10*6/uL 4.2-5.4 [facility] Respiratory pathogens detect ion panel by molecular detection methodOrdered By: Modesta Caro on 08-25-2024 Respiratory pathogens DNA and RNA panel ZANA+probe (Resp) [facility] Serum creatinine measurement (mass/volume)Ordered By: Zachery Jesus on 08-25-2024 Creatinine [Mass/Vol] 0.83 mg/dL 0.70-1.20 [facility] Serum globulin measurementOr dered By: Zachery Jesus on 08-25-2024 Globulin (S) [Mass/Vol] 3.3 g/dL 2.2-4.2 [facility] Serum glucose measurement (m ass/volume)Ordered By: Zachery Jesus on 08-25-2024 Glucose [Mass/Vol] 107 mg/dL High 70-99 [facility] Serum or plasma alanine dye otransferase (ALT) measurementOrdered By: Zachery Jesus on 08-25-2024 ALT [Catalytic activity/Vol] 16 U/L <35 [facility] Serum or plasma albumin enedelia urement (mass/volume)Ordered By: Zachery eJsus on 08-25-2024 Albumin [Mass/Vol] 4.0 g/dL 3.4-4.8 [facility] Serum or plasma alkaline haley sphatase measurementOrdered By: Zachery Jesus on 08-25-2024 ALP [Catalytic activity/Vol] 148 U/L High 35-104 [facility] Serum or plasma calcium enedelia urement (mass/volume)Ordered By: Zachery Jesus on 08-25-2024 Calcium [Mass/Vol] 9.4 mg/dL 7.6-11.0 [facility] Serum or plasma urea nitroge n measurement (mass/volume)Ordered By: Zachery Jesus on 08-25-2024 Urea nitrogen [Mass/Vol] 10 mg/dL 4-19 [facility] Sodium levelOrdered By: Sanjay Jesus on 08-25-2024 Sodium [Moles/Vol] 142 mmol/L 133-145 [facility] Total proteinOrdered By: Demario Jesus on 08-25-2024 Protein [Mass/Vol] 7.3 g/dL 5.9-8.4 [facility] White blood cell (WBC) count Ordered By: Zachery Patinone on 08-25-2024 WBC (Bld) [#/Vol] 8.9 10*3/uL 4.4-11.0 [facility] [id number] 01-18-2024 [id number] HNO ID: [id number] Author: AMIRA WIGGINS RN Service: ? Author Type: Registered Nurse Type: [id number] Filed: 01/18/2024 09:27 Note Text: The patient received a copy of EGD discharge instructions that contain information for how to contact the physician who performed the procedure and when to seek medical care. Normal [facility] EGD Study observation Narrat iveon 01-18-2024 [facility] Gastrointestinal Endoscopy Patient Name: Jennifer Mcmullen [...] be scheduled. Procedure Code(s): --- Professional --- 49201, Esophagogastroduodenos copy, flexible, transoral; with biopsy, single or multiple Diagnosis Code(s): --- Professional --- R10.13, Epigastric pain R11.0, Nausea CPT copyright 2020 [employer]. All rights reserved. The codes documented in this report are preliminary and upon head of conservation review may be revised to meet current compliance requirements. Attending Participation: I personally performed the entire procedure. Scope In: 9:07:47 AM Scope Out: 9:11:18 AM MD Zachery Lund MD 01/18/2024 9:15:51 AM This report has been sign (more content not included)... PROVATION [facility] Radiology Study observation (narrative) [facility] HISTORY PHYSICALon HISTORY PHYSICAL HNO ID: [id number] Author: ZACHERY TOUSSAINT MD Service: General Surgery [...] back pain 05/27/2014 Work injury 2006 Depression [facility] Diabetes mellitus (HCC) Disc slipped disc in back Fracture of right ankle Head injury Helicobacter pylori infection 09/12/2016 Hernia, hiatal Hyperglycemia 2010 Insomnia JOSSELIN (obstructive sleep apnea) 02/25/2019 Post-traumatic headache 01/16/2014 Postmenopausal Prediabetes 04/08/2019 PTSD (post-traumatic stress disorder) Tobacco use PAST SURGICAL HISTORY PAST SURGICAL HISTORY Procedure Laterality Date APPENDECTOMY 2012 [place] SECTION HX 1979 x 2 CHOLECYSTECTOMY 1989 COLONOSCOPY 01/10/2018 Random bx neg. internal hemorrhoids. lax anal tone. [facility] in [facility] COLONOSCOPY FLX DX W/COLLJ SPEC WHEN PFRMD 06/12/2014 Colonoscopy out pt [facility] EGD 04/10/2018 Hpylori negative - Giovanna in [facility] ESOPHAGOGASTRODUODENOS COPY TRANSORAL DIAGNOSTIC 06/12/2014 EGD outpt [facility] HERNIA REPAIR HX 12/01/2011 TOTAL ABDOMINAL HYSTERECT [...] Brother Seizures Brother Coronary Artery Disease Brother [place] REVIEW OF SYMPTOMS: The review of systems [...] are an (more content not included)... Normal [facility] NURSING PROGon 01-18-2024 NURSING PROG HNO ID: [id number] Author: AMIRA WIGGINS RN Service: ? Author Type: Registered Nurse Type: Nursing Progress Note Filed: 01/18/2024 09:25 Note Text: pt arrived to phase 2 resting on left side. Daughter at bedside. SR up x 2, call light in reach. Amira Wiggins RN Normal [facility] SURGICAL PATHOLOGYon 024 ADDENDUM 1: Normal [facility] Comment on above: Order Comment: Speci men Type: TISSUE SPECIMENOrdering Facility: [facility] Address: [address] [place] [address] Result Comment: Give n the background of chronic gastritis a Helicobacter pylori immunostain was performed on block A1 and is negative for Helicobacter pylori organisms. Laboratory Developed Test (LDT) Disclaimer: Performance characteristics of immunohistochemical, immunofluorescent and chromogenic in-situ hybridization tests have been determined by the performing laboratory within [facility]???s [facility] Pathology and Laboratory Medicine Department ([facility], [facility], [facility], [facility], [facility], [facility], or [facility]) in a manner consistent with CLIA [...] at 5:41 PM Performed By: #### S ####[facility] LABCLIA [id number] [address] LABCLIA [id number] [address] CASE REPORT Normal [facility] Comment on above: Order Comment: Speci men Type: TISSUE SPECIMENOrdering Facility: [facility] Address: [address] [place] [address] Result Comment: [facility] Path[facility] Report Case: [id number] Authorizing Provider: Zachery Toussaint MD Collected: 01/18/2024 09:09 AM Ordering Location: Ambulatory Surgery Received: 01/18/2024 01:10 PM Pathologist: Sunshine Burdick MD Specimens: A) - Stomach, Antrum, Biopsy, Antral bx for H/H B) - Esophagogastric Junction, Biopsy C) - Esophagus, Mid, Biopsy D) - Small Bowel, Duodenum, Biopsy Performed By: #### S ####[facility] LABCLIA [id number] [address] LABCLIA [id number] [address] FINAL DIAGNOSIS Normal [facility] Comment on above: Order Comment: Speci men Type: TISSUE SPECIMENOrdering Facility: [facility] Address: [address] [place] [address] Result Comment: A. S tomach, antrum, biopsy: [...] no diagnostic abnormalities. Performed By: #### S ####[facility] LABCLIA [id number] [address] LABCLIA [id number] [address] FINAL PERFORMING LAB Normal [facility] Comment on above: Order Comment: Speci men Type: TISSUE SPECIMENOrdering Facility: [facility] Address: [address] [place] [address] Result Comment: Diag nostic interpretation performed at [facility], [address] [place] [address] CLIA# [id number] Film Sound Coordinator: Yimi Rossi M.D. Performed By: #### S ####[facility] LABCLIA [id number] [address] LABCLIA [id number] [address] GROSS DESCRIPTION Normal [facility] Comment on above: Order Comment: Speci men Type: TISSUE SPECIMENOrdering Facility: [facility] Address: [address] [place] [address] Result Comment: A. S tomach, Antrum, Biopsy [...] in one cassette. Gross examination performed at [facility], [address] [place] [address] JT 01/18/2024 11:15 PM Performed By: #### S ####[facility] LABCLIA [id number] [place] [id number] [facility] LABCLIA [id number] [address] Upper GI endoscopyon 11-07-2 024 Upper GI endoscopy [facility] Gastrointestinal Endoscopy Patient Name: Jennifer Mcmullen [...] be scheduled. Procedure Code(s): --- Professional --- 55298, Esophagogastroduodenos copy, flexible, transoral; with biopsy, single or multiple Diagnosis Code(s): --- Professional --- R10.13, Epigastric pain R11.0, Nausea CPT copyright 2020 [employer]. All rights reserved. The codes documented in this report are preliminary and upon head of conservation review may be revised to meet current compliance requirements. Attending Participation: I personally performed the entire procedure. Scope In: 9:07:47 AM Scope Out: 9:11:18 AM MD Zachery Lund MD 01/18/2024 9:15:51 AM This report has been signed electronically by Zachery Toussaint MD Number of Addenda: 0 Note Initiated On: 01/18/2024 8:55 AM Estimated Blood Loss: Estimated blood loss was minimal. Normal [facility] [id number] 01-16-2024 [id number] HNO ID: [id number] Author: RUBY KIRKPATRICK PT Service: ? Author Type: Physical Therapist Type: [id number] Filed: 01/16/2024 18:00 Note Text: [facility] Physical Therapy Plan of Care Certification Patient Name: Jennifer Mcmullen : 1960 [facility] #: [id number] Date: 01/16/2024 To: Smiley De La Paz,* From Therapist: Ruby Kirkpatrick PT RE: Patient Certification/ Recertification Your review, approval and electronic signature are required in order to comply with Payor: [facility] MEDICAID / Plan: [facility] MEDICAID / Product Type: Medicaid / regulations. [...] Goals for Episode of Care: established 01/16/24 [place] in home exercise program. Patient will decrease [...] Planned: 4 Planned Treatment Interventions: Therapeutic exercise (42566), Neuromuscular re-education (34145), Manual therapy (09429), Therapeutic activities (38191), Self-shelter management (54178), Gait Training (39711), Patient/Family/Caregiv er Education, Body Mechanics Training, General [...] reviewed the treatment plan for Jennifer Mcmullen, [facility]# [id number] for the period of 01/16/24 -- 02/13/24, established on 01/16/2024. Signature certifies the need for therapy services. Normal [facility] CNTHERAPYon 01-16-2024 CNTHERAPY OT/PT/Speech Visit (PTWS) EMILYJENNIFER RODRIGUEZ ([id number]) 1960 F Date Time Provider Department 01/16/24 1:15 PM RUBY KIRKPATRICK PTNAIF Date Time Provider Department Center 01/16/2024 1:15 PM [id number], BRENT PTWS Vasquez Powell Reason for Visit: [...] J45.41. Nebulizer and supplies. Face mask preferred. Auto Inspection Specialist: Addendum Therapy (PT/OT/Speech/Resp) ID: [id number] 01/16/2024 5:50 PM Author: RUBY KIRKPATRICK Signed by RUBY KIRKPATRICK PT on 01/16/2024 at 5:51 PM * * * This document replaces document [id number] * * * Document text: Program_ID:[id number] Access Code: [email or web address] URL: [email or web address] Date: 01-16-2024 Prepared By: Ruby Kirkpatrick Program [...] 2 sets - 10 reps -- Normal [facility] THERAPY NTon 01-16-2024 THERAPY NT HNO ID: [id number] Author: RUBY KIRKPATRICK PT Service: ? Author Type: Physical Therapist Type: Therapy (PT/OT/Speech/Resp) Filed: 01/16/2024 17:51 Note Text: Program_ID:[id number] Access Code: [email or web address] URL: [email or web address] Date: 01-16-2024 Prepared By: Ruby Kirkpatrick Program [...] - 2 sets - 10 reps Normal [facility] CNOVon 01-08-2024 CNOV Office Visit (GENSWS ) JENNIFER RAMIREZ ([id number]) 1960 F Date Time Provider Department 01/08/24 [...] back pain 05/27/2014 Work injury 2006 Depression [facility] Diabetes mellitus (HCC) Disc slipped disc [...] neg. internal hemorrhoids. lax anal tone. Giovanna [facility] COLONOSCOPY FLX DX W/COLLJ SPEC WHEN PFRMD 06/12/2014 Colonoscopy out pt [facility] EGD 04/10/2018 Hpylori negative - Givoanna in [facility] ESOPHAGOGASTRODUODENOS COPY TRANSORAL DIAGNOSTIC 06/12/2014 EGD outpt [facility] HERNIA REPAIR HX 12/01/2011 TOTAL ABDOMINAL HYSTERECT [...] Brother Seizures Brother Coronary Artery Disease Brother PR REVIEW OF SYMPTOMS: The review of systems data was entered by the nurse and reviewed by me There are no exam notes on file for this visit. PHYSICAL EXAMINATION: General: The patient is 63 year old female, well nourished, well hydrated in no acute distress. The patient is oriented to time, place, and person. VITALS: Blood pressure 116 (more content not included)... Normal [facility] CNOV Office Visit (INTMWS ) JENNIFER RAMIREZ ([id number]) 1960 F Date Time Provider Department 01/08/24 11:00 AM MARIANNA YAP INTMWS During your visit today, we recorded the following information about you: Pulse Respiration Blood pressure Weight 76/minute 14/minute 124/82 96.6 kg Marianna Yap, LAUNDRY MACHINE OPERATOR.LICENSED PROSTHETIST 01/08/2024 11:34 AM Signed CC: Patient presents with: Follow Up: [facility] Jennifer Mcmullen is a 63 year [...] back pain 05/27/2014 Work injury 2006 Depression [facility] Diabetes mellitus (HCC) Disc slipped disc in back Fracture of right ankle Head injury Helicobacter pylori infection 09/12/2016 Hernia, hiatal Hyperglycemia 2010 Insomnia JOSSELIN (obstructive sleep apnea) 02/25/2019 Post-traumatic headache 01/16/2014 Postmenopausal Prediabetes 04/08/2019 PTSD (post-traumatic stress disorder) Tobacco use PAST SURGICAL HISTORY Procedure Laterality Date APPENDECTOMY 2012 [place] SECTION HX 1980 x 2 CHOLECYSTECTOMY 1989 COLONOSCOPY 01/10/2018 Random bx neg. internal hemorrhoids. lax anal tone. Giovanna in [facility] COLONOSCOPY FLX DX W/COLLJ SPEC WHEN PFRMD 06/12/2014 Colonoscopy out pt [facility] EGD 04/10/2018 Hpylori negative - Joseliney in [facility] ESOPHAGOGASTRODUODENOS COPY TRANSORAL DIAGNOSTIC 06/12/2014 EGD outpt [facility] HERNIA REPAIR HX 12/01/2011 TOTAL ABDOMINAL HYSTERECT [...] daily. Nebulizer NEBULIZER FOR HOME USE. DX: Ar45.41. Nebulizer and supplies. Face mask preferred. FAMILY HISTORY Problem Relation Age of Onset Heart Mother 70 Diabetes Mother Hypertension Mother Asthma Mother Hypertension Father Diabetes Father Colon Cancer Father in his seventies Asthma Sister Asthma Brother Seizures Brother Coronary Artery Disease Brother PR Social History Tobacco Use Smoking status: Every [...] guarding or (more content not included)... Normal [facility] 12-27-2023 [facility] HNO ID: [id number] Author: MARYBETH TY CT Service: Radiology Author [...] PATIENT PRESENTS WITH AN IMPLANTABLE OR ATTACHED MARKETING INFORMATION MANAGER: No RADIOLOGY DEPARTMENT: CT; Exam(s) Completed: Lung Screening PERIPHERAL IV DATA: Not applicable SIGNED BY: ANA LAURA Harley December 27, 2023 2:36 PM [facility] CNOVon 12-27-2023 CNOV Office Visit ([facility] ) JENNIFER RAMIREZ ([id number]) 1960 F Date Time Provider Department 12/27/23 2:30 PM TERRENCE FLORES [facility] During your visit today, we recorded the following information about you: Pulse Blood pressure Weight 90/minute 116/76 97.6 kg Terrence Flores APRN.CNP 12/29/2023 10:23 AM Signed LUNG SCREENING ANNUAL [...] which included preparing to see the patient, [id number] patient care, completing clinical documentation, performing a medically appropriate examination, counseling and educating the patient/family/caregiv er, ordering medications, tests, or procedures, communicating with other HCPs (not separately reported), independently interpreting results (not separately reported), communicating results to the patient/family/caregiv er, and care coordination (not separately reported). Terrence Flores APRN.[facility] December 27, 2023 12:08 PM History [...] Breo and spiriva daily. Modified Medical Research [place] Dyspnea Scale (MMRC) (more content not included)... Normal [facility] CNOV Office Visit (ORMDNA ) JENNIFER RAMIREZ ([id number]) 1960 F Date Time Provider Department 12/27/23 [...] once daily. Noble Gilbert CNP at the [facility]. albuterol (PROVENTIL) 2.5 mg /3 mL [...] present Swel (more content not included)... Normal [facility] CT Chest for screening WO co ntraston 12-27-2023 IMPRESSION: LungRADS category: 1 LungRADS modifier: None LungRADS 0 reason: n/a Recommendations: Continue annual screening with LDCT in 12 months. Other actionable findings: - ========= Reference: [employer]. Lung CT Screening Reporting and Data System (Lung-RADS). Available at: http://www.acr.org/Andrew lity-Safety/Resources/ LungRADS 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: AMADO Transcribe Date/Time: Dec 27 2023 4:14P Dictated by : ILEANA MARQUEZ MD This examination was interpreted and the report reviewed and electronically signed by: ILEANA MARQUEZ MD on Dec 27 2023 4:28PM [facility] RADIOLOGY * * *Final Report* * * DATE OF EXAM: Dec 27 2023 2:44PM [facility] [place] LUNG SCREEN WO IVCON [...] without contrast. MQ: CTLCS_6 Patient characteristics: * Juvd-pk-Bjxnd: 1960; Age at exam: 63 years * Gender: Female * Lung Disease: Asymptomatic (no signs or symptoms of lung disease) * Number of Pack Years: 21.9 * Current smoker (=0) or Number of Years since Quit: 0 * Ordering provider and NPI: ARCELIA GARCIA [id number] * Interpreting radiologist and NPI: John [id number] Exam acquisition parameters: * Exam Date: 12/27/2023 2:44 PM * Site: [facility] * * CT System Asphalt Tamper: RebelMail * CT System Model: [employer] * Tube Current-Time (mA-sec): 60 * Peak [...] None Localizer images: No additional findings. - [facility] Provider, [facility] - 12/27/2023 * * *Final Report* * * DATE OF EXAM: Dec 27 2023 2:44PM [facility] [place] CT LUNG SCREEN WO IVCON [...] without contrast. MQ: CTLCS_6 Patient characteristics: * Fulr-tt-Ccntt: 1960; Age at exam: 63 years * Gender: Female * Lung Disease: Asymptomatic (no signs or symptoms of lung disease) * Number of Pack Years: 21.9 * Current smoker (=0) or Number of Years since Quit: 0 * Ordering provider and NPI: ARCELIA GARCIA [id number] * Interpreting radiologist and NPI: John [id number] Exam acquisition parameters: * Exam Date: 12/27/2023 2:44 PM * Site: [facility] * * CT System Asphalt Tamper: RebelMail * CT System Model: [employer] * Tube Current-Time (mA-sec): 60 * Peak [...] months. Other actionable findings: - ========= Reference: [employer]. Lung CT Screening Reporting and Data System (Lung-RADS). Available at: http://www.acr.org/Andrew lity-Safety/Resources/ LungRADS 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: AMADO Transcribe Date/Time: Dec 27 2023 4:14P Dictated by : ILEANA MARQUEZ MD This examination was interpreted and the report reviewed and electronically signed by: ILEANA MARQUEZ MD on Dec 27 2023 4:28PM EST [facility] Radiology Study observation (narrative) [facility] CT Chest for screening WO co ntrastOrdered By: Ccf Provider on 12-27-2023 [facility] CT LUNG SCREEN WO IVCONon CT LUNG SCREEN WO IVCON * * *Final Repor t* * * DATE OF EXAM: Dec 27 2023 2:44PM [facility] [place] LUNG SCREEN WO IVCON [...] without contrast. MQ: CTLCS_6 Patient characteristics: * Rjxr-jh-Vwwue: 1960; Age at exam: 63 years * Gender: Female * Lung Disease: Asymptomatic (no signs or symptoms of lung disease) * Number of Pack Years: 21.9 * Current smoker (=0) or Number of Years since Quit: 0 * Ordering provider and NPI: ARCELIA GARCIA [id number] * Interpreting radiologist and NPI: John [id number] Exam acquisition parameters: * Exam Date: 12/27/2023 2:44 PM * Site: [facility] * * CT System Asphalt Tamper: RebelMail * CT System Model: [employer] * Tube Current-Time (mA-sec): 60 * Peak [...] months. Other actionable findings: - ========= Reference: [employer]. Lung CT Screening Reporting and Data System (Lung-RADS). Available at: http://www.acr.org/Andrew lity-Safety/Resources/ LungRADS 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: AMADO Transcribe Date/Time: Dec 27 2023 4:14P Dictated by : ILEANA MARQUEZ MD This examination was interpreted and the report reviewed and electronically signed by: ILEANA MARQUEZ MD on Dec 27 2023 4:28PM EST [id number] [facility] 12-05-2023 [facility] Telephone (INTMWS) JENNIFER RAMIREZ ([id number]) 1960 F Date Time Provider Department 12/05/23 EDDIE RODRÍGUEZ INTWS During your visit today, we recorded [...] went over results, notes from Eddie Rodríguez MOTOR COACH DRIVER with understanding. Daughter asking what did MOTOR COACH DRIVER want her to do next? See Ortho? [...] PSS to assist patients daughter in scheduling damishin Ketty Sugar 12/05/2023 3:37 PM Signed 1st attempt [...] G89.29] Order(s):CONSULT TO ORTHOPAEDICS [9026] Order #: [id number]: 1 FUTURE Prescriptions as of 12/07/2023 - [...] once daily. Noble Gilbert CNP at the [facility]. - albuterol (PROVENTIL) 2.5 mg /3 mL (0.083 %) nebulizer solution Use 3 mL via nebulizer every 4 hours as needed for wheezing/shortness of breath. - polyethylene glycol 3350 (MIRALAX) 17 gram/dose powder Take 17 g by mouth once daily as needed for constipation. - traZODone (DESYREL) 100 mg tablet Take 2 tablets by mouth daily at bedtime. Noble Gilbert, [facility]. - tiotropium bromide (SPIRIVA RESPIMAT) 2.5 mcg/actuation inhaler Inhale 2 Puffs as instructed once daily. - Nebulizer NEBULIZER FOR HOME USE. DX: J45.41. Nebulizer and supplies. Face mask preferred. Problem List As Of Date 12/05/2023 Noted Resolved Irreducible ventral hernia [K43.6] 03/02/2011 08/17/2018 Depression [F32.A] Disc [[id number]] 08/17/2018 Hyperglycemia [R73.9] 12/15/2018 NEGATIVE MEDICAL HISTORY [...] cancer [Z12 (more content not included)... Normal [facility] CNPN Telephone (INTMWS) JENNIFER RAMIREZ ([id number]) 1960 F Date Time Provider Department 12/05/23 EDDIE RODRÍGUEZ INTDuncanWS During your visit today, we recorded the following information about you: Faith Lanier LPN 12/05/2023 11:04 AM Signed ----- Message from Eddie Jarquin APRN.FUN HOUSE ATTENDANT sent at 12/05/2023 10:44 AM EDT ----- Please let her know that labs overall in acceptable range. .There are some arthritic changes noted on lumbar spine x-ray. X-ray knee result is still pending. She has not yet scheduled follow-up visit. Reommend a 1 mo recheck DM, labs, pain with PCP or CHAD. Faith Lanier LPN 12/05/2023 11:05 AM Signed Patients daughter notified of providers message and verbalized understanding. Appointment scheduled with MOTOR COACH DRIVER Allergies As of Date: 12/05/2023 Noted Allergy [...] hernia [K43.6] 03/02/2011 08/17/2018 Depression [F32.A] Disc [VIJ8702] 08/17/2018 Hyperglycemia [R73.9] 12/15/2018 NEGATIVE MEDICAL HISTORY [...] Status:Closed by FAITH LANIER on 12/05/23 Normal [facility] ALBUMIN/CREATININE RATIO, UR INEon 12-01-2023 Albumin DL <= 20 mg/L (U) [Mass/Vol] mg/dL Normal [facility] Comment on above: Order Comment: Speci men Type: URINE SPECIMENOrdering Facility: [facility] Address: [address] [place] [address] Performed By: #### U ACR ####[facility] LABCLIA [id number] [place] [address] [place] Albumin/Creatinine (U) [Mass ratio] <6 Normal <30 [facility] Comment on above: Order Comment: Speci men Type: URINE SPECIMENOrdering Facility: [facility] Address: [address] [place] [address] Result Comment: Adul t Male and Female Nephrotic Criteria: <30 mg/g is considered normal to mildly increased 30-300 mg/g is considered moderately increased >300 mg/g is considered severely increased KDIGO. (2013). KDIGO 2012 Clinical Practice Guideline for the Evaluation and Management of Chronic Kidney Disease. Official Journal of the International Society of Nephrology, 3(1), 1-150. Performed By: #### U ACR ####[facility] LABCLIA [id number] [place] [address] [place] Creatinine (U) [Mass/Vol] 189.3 mg/dL Normal 20.0-300.0 [facility] Comment on above: Order Comment: Speci men Type: URINE SPECIMENOrdering Facility: [facility] Address: [address] [place] [address] Performed By: #### U ACR ####[facility] LABCLIA [id number] [place] [id number] [place] CBC W Auto Differential pane l (Bld)on 12-01-2023 Basophils (Bld) [#/Vol] 0.04 10*3/uL [facility] Basophils/100 WBC (Bld) 0.4 % C [facility] Differential cell count method Nom (Bld) Auto [facility] Eosinophils (Bld) [#/Vol] 0.21 10*3/uL [facility] Eosinophils/100 WBC (Bld) 2.3 % [facility] Erythrocyte distribution width (RBC) [Ratio] 13.0 % 11.5 - 15.0 % [facility] Hematocrit (Bld) [Volume fraction] 45.8 % 36.0 - 46.0 % [facility] Hemoglobin (Bld) [Mass/Vol] 14.7 g/dL 11.5 - 15.5 g/dL [facility] Immature granulocytes (Bld) [#/Vol] 0.04 10*3/uL [facility] Immature granulocytes/100 WBC (Bld) 0.4 % [facility] Lymphocytes (Bld) [#/Vol] 3.41 10*3/uL [facility] Lymphocytes/100 WBC (Bld) 37.9 % [facility] MCH (RBC) [Entitic mass] 29.1 pg 26.0 - 34.0 pg [facility] MCHC (RBC) [Mass/Vol] 32.1 g/dL 30.5 - 36.0 g/dL [facility] MCV (RBC) [Entitic vol] 90.7 fL 80.0 - 100.0 fL [facility] Monocytes (Bld) [#/Vol] 0.71 10*3/uL [facility] Monocytes/100 WBC (Bld) 7.9 % [facility] Neutrophils (Bld) [#/Vol] 4.58 10*3/uL [facility] Neutrophils/100 WBC (Bld) 51.1 % [facility] Nucleated RBC (Bld) [#/Vol] [facility] Nucleated RBC/100 WBC (Bld) [Ratio] 0.0 % /100 WBC [facility] Platelet mean volume (Bld) [Entitic vol] 11.3 fL 9.0 - 12.7 fL [facility] Platelets (Bld) [#/Vol] 221 10*3/uL [facility] RBC (Bld) [#/Vol] 5.05 10*6/uL 3.90 - 5.2 0 m/uL [facility] WBC (Bld) [#/Vol] 8.99 10*3/uL [facility] Basophils (Bld) [#/Vol] 0.04 10*3/uL Normal <0.11 [facility] Comment on above: Order Comment: Speci men Type: BLOOD SPECIMENOrdering Facility: [facility] Address: [address] [place] [address] Performed By: #### 5 7021-8 ####[facility] LABCLIA [id number] [place] [address] [place] Basophils/100 WBC (Bld) 0.4 % Normal [facility] Comment on above: Order Comment: Speci men Type: BLOOD SPECIMENOrdering Facility: [facility] Address: [address] [place] [address] Performed By: #### 5 7021-8 ####[facility] LABCLIA [id number] [place] [address] [place] Differential cell count method Nom (Bld) Auto Normal [facility] Comment on above: Order Comment: Speci men Type: BLOOD SPECIMENOrdering Facility: [facility] Address: [address] [place] [address] Performed By: #### 5 7021-8 ####[facility] LABCLIA [id number] [place] [address] [place] Eosinophils (Bld) [#/Vol] 0.21 10*3/uL Normal <0.46 [facility] Comment on above: Order Comment: Speci men Type: BLOOD SPECIMENOrdering Facility: [facility] Address: [address] [place] [address] Performed By: #### 5 7021-8 ####[facility] LABCLIA [id number] [place] [address] [place] Eosinophils/100 WBC (Bld) 2.3 % Normal [facility] Comment on above: Order Comment: Speci men Type: BLOOD SPECIMENOrdering Facility: [facility] Address: [address] [place] [address] Performed By: #### 5 7021-8 ####[facility] LABCLIA [id number] [place] [address] [place] Erythrocyte distribution width (RBC) [Ratio] 13.0 % Normal 11.5-15.0 [facility] Comment on above: Order Comment: Speci men Type: BLOOD SPECIMENOrdering Facility: [facility] Address: [address] [place] [address] Performed By: #### 5 7021-8 ####[facility] LABIA [id number] [place] [address] [place] Hematocrit (Bld) [Volume fraction] 45.8 % Normal 36.0-46.0 [facility] Comment on above: Order Comment: Speci men Type: BLOOD SPECIMENOrdering Facility: [facility] Address: [address] [place] [address] Performed By: #### 5 7021-8 ####[facility] LABIA [id number] [place] [address] [place] Hemoglobin (Bld) [Mass/Vol] 14.7 g/dL Normal 11.5-15.5 [facility] Comment on above: Order Comment: Speci men Type: BLOOD SPECIMENOrdering Facility: [facility] Address: [address] [place] [address] Performed By: #### 5 7021-8 ####[facility] LABIA [id number] [place] [address] [place] Immature granulocytes (Bld) [#/Vol] 0.04 10*3/uL Normal <0.10 [facility] Comment on above: Order Comment: Speci men Type: BLOOD SPECIMENOrdering Facility: [facility] Address: [address] [place] [address] Performed By: #### 5 7021-8 ####[facility] LABIA [id number] [place] [address] [place] Immature granulocytes/100 WBC (Bld) 0.4 % Normal [facility] Comment on above: Order Comment: Speci men Type: BLOOD SPECIMENOrdering Facility: [facility] Address: [address] [place] [address] Performed By: #### 5 7021-8 ####[facility] LABCLIA [id number] [place] [address] [place] Lymphocytes (Bld) [#/Vol] 3.41 10*3/uL Normal 1.00-4.00 [facility] Comment on above: Order Comment: Speci men Type: BLOOD SPECIMENOrdering Facility: [facility] Address: [address] [place] [address] Performed By: #### 5 7021-8 ####[facility] LABCLIA [id number] [place] [address] [place] Lymphocytes/100 WBC (Bld) 37.9 % Normal [facility] Comment on above: Order Comment: Speci men Type: BLOOD SPECIMENOrdering Facility: [facility] Address: [address] [place] [address] Performed By: #### 5 7021-8 ####[facility] LABCLIA [id number] [place] [address] [place] MCH (RBC) [Entitic mass] 29.1 pg Normal 26.0-34.0 [facility] Comment on above: Order Comment: Speci men Type: BLOOD SPECIMENOrdering Facility: [facility] Address: [address] [place] [address] Performed By: #### 5 7021-8 ####[facility] LABCLIA [id number] [place] [address] [place] MCHC (RBC) [Mass/Vol] 32.1 g/dL Normal 30.5-36.0 [facility] Comment on above: Order Comment: Speci men Type: BLOOD SPECIMENOrdering Facility: [facility] Address: [address] [place] [address] Performed By: #### 5 7021-8 ####[facility] LABCLIA [id number] [place] [id number] [place] MCV (RBC) [Entitic vol] 90.7 fL Normal 80.0-100.0 [facility] Comment on above: Order Comment: Speci men Type: BLOOD SPECIMENOrdering Facility: [facility] Address: [address] [place] [address] Performed By: #### 5 7021-8 ####[facility] LABCLIA [id number] [place] [address] [place] Monocytes (Bld) [#/Vol] 0.71 10*3/uL Normal <0.87 [facility] Comment on above: Order Comment: Speci men Type: BLOOD SPECIMENOrdering Facility: [facility] Address: [address] [place] [address] Performed By: #### 5 7021-8 ####[facility] LABCLIA [id number] [place] [id number] [place] Monocytes/100 WBC (Bld) 7.9 % Normal [facility] Comment on above: Order Comment: Speci men Type: BLOOD SPECIMENOrdering Facility: [facility] Address: [address] [place] [address] Performed By: #### 5 7021-8 ####[facility] LABCLIA [id number] [place] [address] [place] Neutrophils (Bld) [#/Vol] 4.58 10*3/uL Normal 1.45-7.50 [facility] Comment on above: Order Comment: Speci men Type: BLOOD SPECIMENOrdering Facility: [facility] Address: [address] [place] [address] Performed By: #### 5 7021-8 ####[facility] LABCLIA [id number] [place] [address] [place] Neutrophils/100 WBC (Bld) 51.1 % Normal [facility] Comment on above: Order Comment: Speci men Type: BLOOD SPECIMENOrdering Facility: [facility] Address: [address] [place] [address] Performed By: #### 5 7021-8 ####[facility] LABCLIA [id number] [place] [address] [place] Nucleated RBC (Bld) [#/Vol] 10*3/uL Normal <0.01 [facility] Comment on above: Order Comment: Speci men Type: BLOOD SPECIMENOrdering Facility: [facility] Address: [address] [place] [address] Performed By: #### 5 7021-8 ####[facility] LABCLIA [id number] [place] [address] [place] Nucleated RBC/100 WBC (Bld) [Ratio] 0.0 /100 WBC Normal [facility] Comment on above: Order Comment: Speci men Type: BLOOD SPECIMENOrdering Facility: [facility] Address: [address] [place] [address] Performed By: #### 5 7021-8 ####[facility] LABIA [id number] [place] [address] [place] Platelet mean volume (Bld) [Entitic vol] 11.3 fL Normal 9.0-12.7 [facility] Comment on above: Order Comment: Speci men Type: BLOOD SPECIMENOrdering Facility: [facility] Address: [address] [place] [address] Performed By: #### 5 7021-8 ####[facility] LABCLIA [id number] [place] [address] [place] Platelets (Bld) [#/Vol] 221 10*3/uL Normal 150-400 [facility] Comment on above: Order Comment: Speci men Type: BLOOD SPECIMENOrdering Facility: [facility] Address: [address] [place] [address] Performed By: #### 5 7021-8 ####[facility] LABCLIA [id number] [place] [address] [place] RBC (Bld) [#/Vol] 5.05 10*6/uL Normal 3.90-5.20 [facility] Comment on above: Order Comment: Speci men Type: BLOOD SPECIMENOrdering Facility: [facility] Address: [address] [place] [address] Performed By: #### 5 7021-8 ####[facility] LABCLIA [id number] [place] [address] [place] WBC (Bld) [#/Vol] 8.99 10*3/uL Normal 3.70-11.00 [facility] Comment on above: Order Comment: Speci men Type: BLOOD SPECIMENOrdering Facility: [facility] Address: [address] [place] [address] Performed By: #### 5 7021-8 ####[facility] LABCLIA [id number] [address] [place] CNOVon 12-01-2023 CNOV Office Visit (INTMWS ) JENNIFER RAMIREZ ([id number]) 1960 F Date Time Provider Department 12/01/23 10:00 AM EDDIE RODRÍGUEZ INTMWS During your visit today, we recorded the following information about you: Pulse Respiration Blood pressure Weight 71/minute 16/minute 135/83 97.3 kg Eddie Rodríguez APRN.[employer] HOUSE ATTENDANT 12/05/2023 10:42 AM Addendum SUBJECTIVE: Urine Albumin:Creatinine Ratio due on 09/30/2022 LDL Cholesterol due on 09/30/2022 RSV Vaccine(1 - 1-dose 60+ series) Never done HbA1C due on 12/01/2022 Lung Cancer Screening due on 03/31/2023 Dilated Retinal Exam due on 08/12/2023 Shingrix Vaccine(2 of 2) due on 10/18/2023 Covid-19 Vaccine(3 - 2022- season) due on 11/12/2023 Influenza Vaccine(1) due [...] Without Long-Term Current Use of Insulin (Hcc) Screening for Colon Cancer PCP: Leonid Rice [...] a heating pad. Does not take anything fgge-vvo-vvrprte such as Tylenol ibuprofen or naproxen. Review [...] Left lower leg: No edema. Comments: absent insurance defense attorney left hand Skin: General: Skin is warm [...] supplies. Face (more content not included)... Normal [facility] Comprehensive metabolic 2000 panelon 12-01-2023 Albumin [Mass/Vol] 4.0 g/dL Normal 3.9-4.9 [facility] Comment on above: Order Comment: Speci men Type: BLOOD SPECIMENOrdering Facility: [facility] Address: [address] [place] [address] Performed By: #### 2 4323-8, 87761-2 ####[facility] LABCLIA [id number] [place] [address] [place] ALP [Catalytic activity/Vol] 145 U/L High 34-123 [facility] Comment on above: Order Comment: Speci men Type: BLOOD SPECIMENOrdering Facility: [facility] Address: [address] [place] [address] Performed By: #### 2 4323-8, 76193-0 ####[facility] LABCLIA [id number] [place] [address] [place] ALT [Catalytic activity/Vol] 17 U/L Normal 7-38 [facility] Comment on above: Order Comment: Speci men Type: BLOOD SPECIMENOrdering Facility: [facility] Address: [address] [place] [address] Performed By: #### 2 4323-8, 08201-0 ####[facility] LABCLIA [id number] [place] [address] [place] Anion gap [Moles/Vol] 10 mmol/L Normal 8-15 [facility] Comment on above: Order Comment: Speci men Type: BLOOD SPECIMENOrdering Facility: [facility] Address: [address] [place] [address] Performed By: #### 2 4323-8, 00511-7 ####[facility] LABCLIA [id number] [place] [id number] [place] AST [Catalytic activity/Vol] 21 U/L Normal 13-35 [facility] Comment on above: Order Comment: Speci men Type: BLOOD SPECIMENOrdering Facility: [facility] Address: [address] [place] [address] Performed By: #### 2 4323-8, 14868-6 ####[facility] LABCLIA [id number] [place] [address] [place] Bilirubin [Mass/Vol] 0.3 mg/dL Normal 0.2-1.3 [facility] Comment on above: Order Comment: Speci men Type: BLOOD SPECIMENOrdering Facility: [facility] Address: [address] [place] [address] Performed By: #### 2 4323-8, 78094-3 ####[facility] LABCLIA [id number] [place] [address] [place] Calcium [Mass/Vol] 9.6 mg/dL Normal 8.5-10.2 [facility] Comment on above: Order Comment: Speci men Type: BLOOD SPECIMENOrdering Facility: [facility] Address: [address] [place] [address] Performed By: #### 2 4323-8, 29097-1 ####[facility] LABCLIA [id number] [place] [address] [place] Chloride [Moles/Vol] 105 mmol/L Normal 98-107 [facility] Comment on above: Order Comment: Speci men Type: BLOOD SPECIMENOrdering Facility: [facility] Address: [address] [place] [address] Performed By: #### 2 4323-8, 47761-5 ####[facility] LABCLIA [id number] [place] [address] [place] CO2 [Moles/Vol] 25 mmol/L Normal 22-30 [facility] Comment on above: Order Comment: Speci men Type: BLOOD SPECIMENOrdering Facility: [facility] Address: [address] [place] [id number] Performed By: #### 2 4323-8, 51025-5 ####[facility] LABIA [id number] [place] [id number] [place] Creatinine [Mass/Vol] 0.96 mg/dL Normal 0.58-0.96 [facility] Comment on above: Order Comment: Alma estevez Type: BLOOD SPECIMENOrdering Facility: [facility] Address: [address] [place] [address] Performed By: #### 2 4323-8, 35918-2 ####[facility] [id number] [place] [address] [place] Creatinine and Glomerular filtration rate.predicted panel (S/P/Bld) 67 mL/min/1.73m??? Normal >=60 [facility] Comment on above: Order Comment: Alma estevez Type: BLOOD SPECIMENOrdering Facility: [facility] Address: [address] [place] [address] Result Comment: Susie mated Glomerular Filtration Rate [...] actual GFR. Performed By: #### 2 4323-8, 94155-0 ####[facility] [id number] [place] [id number] [place] Glucose [Mass/Vol] 131 mg/dL High 74-99 [facility] Comment on above: Order Comment: Alma estevez Type: BLOOD SPECIMENOrdering Facility: [facility] Address: [address] [place] [address] Result Comment: The [place] Diabetes Association (ADA) provides guidance for cutoff [...] Standards of Medical Care in Diabetes 2016, [place] [employer] Association. Diabetes Care. 2016.39(Suppl 1). Performed By: #### 2 4323-8, 70811-6 ####[facility] LABCLIA [id number] [address] [address] [place] Potassium [Moles/Vol] 4.4 mmol/L Normal 3.7-5.1 [facility] Comment on above: Order Comment: Speci men Type: BLOOD SPECIMENOrdering Facility: [facility] Address: [address] [place] [address] Performed By: #### 2 4328, ####[facility] LABIA [id number] [place] [address] [place] Protein [Mass/Vol] 7.2 g/dL Normal 6.3-8.0 [facility] Comment on above: Order Comment: Speci men Type: BLOOD SPECIMENOrdering Facility: [facility] Address: [address] [place] [address] Performed By: #### 2 4328, ####[facility] LABCLIA [id number] [place] [id number] [place] Sodium [Moles/Vol] 140 mmol/L Normal 136-144 [facility] Comment on above: Order Comment: Speci men Type: BLOOD SPECIMENOrdering Facility: [facility] Address: [address] [place] [address] Performed By: #### 2 4323-8, 45447-4 ####[facility] LABCLIA [id number] [address] [address] [place] Urea nitrogen [Mass/Vol] 16 mg/dL Normal 7-21 [facility] Comment on above: Order Comment: Alma estevez Type: BLOOD SPECIMENOrdering Facility: [facility] Address: [address] [place] [address] Performed By: #### 2 4323-8, 18938-8 ####[facility] LABCLIA [id number] [place] [address] [place] HbA1c (Bld)on 12-01-2023 Average glucose Estimated from glycated hemoglobin (Bld) [Mass/Vol] 140 mg/dL Normal [facility] Comment on above: Order Comment: Alma estevez Type: BLOOD SPECIMENOrdering Facility: [facility] Address: [address] [place] [address] Result Comment: eAG: (Estimated average glucose) is a calculated value from HgbA1c and is insurance representative of the average blood glucose level in the last 2-3 month period. Performed By: #### 5 5454-3 ####[facility] LABCLIA [id number] [place] [address] [place] HbA1c (Bld) [Mass fraction] 6.5 % High 4.3-5.6 [facility] Comment on above: Order Comment: Alma estevez Type: BLOOD SPECIMENOrdering Facility: [facility] Address: [address] [place] [address] Result Comment: [place] Diabetes Association guidelines indicate that patients with HgbA1c in the range 5.7-6.4% are at increased risk for development of diabetes, and intervention by lifestyle modification may be beneficial. HgbA1c greater or equal to 6.5% is considered diagnostic of diabetes. Performed By: #### 5 5454-3 ####[facility] LABCLIA [id number] [place] [id number] [place] Lipid 1996 panelon 4 Cholesterol [Mass/Vol] 131 mg/dL Normal <200 [facility] Comment on above: Order Comment: Alma men Type: BLOOD SPECIMENOrdering Facility: [facility] Address: [address] [place] [address] Result Comment: <200 mg/dL, Desirable 200-239 mg/dL, Borderline high >239 mg/dL, High Performed By: #### 2 4323-8, 51067-4 ####[facility] LABCLIA [id number] [place] [address] [place] Cholesterol in HDL [Mass/Vol] 37 mg/dL Low >39 [facility] Comment on above: Order Comment: Speci men Type: BLOOD SPECIMENOrdering Facility: [facility] Address: [address] [place] [address] Result Comment: 40-5 9 mg/dL, Acceptable >59 mg/dL, High: Negative risk factor for coronary heart disease <40 mg/dL, Low: Positive risk factor for coronary heart disease Performed By: #### 2 4323-8, 97525-2 ####[facility] LABCLIA [id number] [place] [address] [place] Cholesterol in LDL [Mass/Vol] 76 mg/dL Normal <100 [facility] Comment on above: Order Comment: Speci men Type: BLOOD SPECIMENOrdering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 above: Result Comment: COMP REHENSIVE METABOLIC PANEL Performed By: #### 2 99734 #### [facility],[address] [place] [address] CO2 [Moles/Vol] 24.6 mmol/L Normal 21.0 - 32.0 [facility] Comment on above: Performed By: #### 2 41322 #### [facility],[address] [place] [address] Creatinine [Mass/Vol] 0.9 mg/dL Normal 0.5 - 1.0 [facility] Comment on above: Performed By: #### 2 19022 #### [facility],[address] [place] [address] GFR/1.73 sq M.predicted among non-blacks MDRD (S/P/Bld) [Vol rate/Area] mL/min/{1.73_m2} Normal 60 - 999 [facility] Comment on above: Performed By: #### 2 10794 #### [facility],[address] [place] [address] Result Comment: ACCO RDING TO THE NATIONAL KIDNEY DISEASE EDUCATION PROGRAM(NKDE), A NORMAL eGFR IS A VALUE GREATER THAN OR EQUAL TO 60 ML/MIN/1.73 SQ METERS. CHRONIC KIDNEY DISEASE: <60mL/MIN/1.73 SQ METERS KIDNEY FAILURE: <15mL/MIN/1.73 SQ METERS THIS TEST SHOULD ONLY BE USED FOR PATIENTS 18 YEARS OF AGE AND OLDER. Globulin (S) [Mass/Vol] 4.1 g/dL High 1.5 - 3.8 [facility] Comment on above: Performed By: #### 2 54657 #### [address] [address] Glucose [Mass/Vol] 168 mg/dL High 74 - 106 [facility] Comment on above: Performed By: #### 2 13011 #### [address] [address] Potassium [Moles/Vol] 3.5 mmol/L Normal 3.5 - 5.1 [facility] Comment on above: Performed By: #### 2 95191 #### [address] [address] Protein [Mass/Vol] 7.3 g/dL Normal 6.4 - 8.2 [facility] Comment on above: Performed By: #### 2 43725 #### [facility],[address] [place] [address] Sodium [Moles/Vol] 140 mmol/L Normal 136 - 145 [facility] Comment on above: Performed By: #### 2 96587 #### [address] [address] Urea nitrogen [Mass/Vol] 10 mg/dL Normal 7 - 18 [facility] Comment on above: Performed By: #### 2 43118 #### [address] [address] [address] CHEST (PE PROTOCOL)on CT CHEST (PE PROTOCOL) [address] [address] Patient: JENNIFER RAMIREZ Phone#: : 1960 Age: 59 Gender: F Pt. Type: ER Account: [id number] Location: [id number] Ordering: MIKAEL PELLETIER Exam Date: 07/12/2020/11:09 Family Phys: Charge Code: [id number] Physician: [place] Order #: [id number] DLP Dose#: PROCEDURE: CT CHEST WITH CONTRAST FOR PE COMPARISON: [facility], CT, CHEST PE W CON, 10/06/2018, 12:49. [...] dissection. LUNGS: Normal. No visible pulmonary disease. KATINA: Normal. No mass or adenopathy. MEDIASTINUM: Normal. [...] There is no evidence of pulmonary embolus. [address] [address] Patient: JENNIFER RAMIREZ Phone#: : 1960 Age: 59 Gender: F Pt. Type: ER Account: [id number] Location: 052 [facility] Ex[facility] Date: 07/12/2020/11:09 Family Phys: Charge Code: [id number] Physician: [place]ara Order #: [id number] [id number] Dose#: Dictated by: Sheryl Sorensen MD on 07/12/2020 at 19:13 Approved by: Sheryl Sorensen MD on 07/12/2020 at 19:15 Normal [facility] RIBS LT UNILAT W/CHEST EXPIR ATIONon 07-12-2020 RIBS LT UNILAT W/CHEST EXPIRATION [place] [address] Patient: JENNIFER RAMIREZ Phone#: : 1960 Age: 59 Gender: F Pt. Type: ER Account: [id number] Location: [facility] Ordering: [facility] Exam Date: 07/12/2020/9:58 Family Phys: Charge Code: [id number] Physician: Niobrara Order #: [id number] DLP Dose#: PROCEDURE: X-RAY RIBS LT UNILAT [...] Sorensen MD on 07/12/2020 at 18:27 Normal [facility] TROPONIN I, HIGH SENSITIVITY on 07-12-2020 HS TROPONIN 6.1 pg/mL Normal 0.0 - 51.4 [facility] Comment on above: Performed By: #### 2 [id number] #### [facility],[address] [facility] [address] XR KNEE LEFT (3 VIEWS)on XR KNEE LEFT (3 VIEWS) EXAMINATION: XR K NEE LEFT (4 VIEWS) CLINICAL HISTORY: pain falling [...] Imtiaz Aceves MD 06/26/18 Final result Normal [facility] XR ABDOMEN (KUB) (SINGLE AP [...] Juan Aguayo MD 04/25/18 Final result Normal [facility] XR KNEE LEFT (3 VIEWS)on XR KNEE LEFT (3 VIEWS) EXAMINATION: XR K NEE LEFT (3 VIEWS) CLINICAL HISTORY: Jennifer Gates?is a 57 y.o.?female?who presents to the Emergency Department with L posterior knee pain after missing a step and 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 ?She denies any other injury. ?She is [...] Faiza Abrams MD 02/22/18 Final result Normal [facility] CBC With Platelet and Differ entialon 01-30-2018 Basophils Auto #/vol (Bld) 0.0 10*3/uL Normal 0.0-0.2 [facility] Basophils/100 WBC Auto (Bld) 0.6 % Normal [facility] Eosinophils Auto #/vol (Bld) 0.2 10*3/uL Normal 0.0-0.7 [facility] Eosinophils/100 WBC Auto (Bld) 2.5 % Normal [facility] Erythrocyte distribution width Auto Ratio (RBC) 14.6 % Critically high 11.5-14.5 [facility] Hematocrit Auto Volume Fraction (Bld) 41.3 % Normal 37.0-47.0 [facility] Hemoglobin mass conc (Bld) 14.1 g/dL Normal 12.0-16.0 [facility] Lymphocytes Auto #/vol (Bld) 2.5 10*3/uL Normal 1.0-4.8 [facility] Lymphocytes/100 WBC Auto (Bld) 31.6 % Normal [facility] MCH Auto Entitic mass (RBC) 30.4 pg Normal 27.0-31.3 [facility] MCHC Auto mass conc (RBC) 34.1 % Normal 33.0-37.0 [facility] MCV Auto Entitic volume (RBC) 89.1 fL Normal 82.0-100.0 [facility] Monocytes Auto #/vol (Bld) 0.4 10*3/uL Normal 0.2-0.8 [facility] Monocytes/100 WBC Auto (Bld) 5.3 % Normal [facility] Neutrophils Auto #/vol (Bld) 4.8 10*3/uL Normal 1.4-6.5 [facility] Neutrophils/100 WBC Auto (Bld) 60.0 % Normal [facility] Platelets Auto #/vol (Bld) 211 10*3/uL Normal 130-400 [facility] RBC Auto #/vol (Bld) 4.64 10*6/uL Normal 4.20-5.40 [facility] WBC Auto #/vol (Bld) 7.9 10*3/uL Normal 4.8-10.8 [facility] Comprehensive Metabolic Pane tina 01-30-2018 Albumin mass conc 3.9 g/dL Normal 3.9-4.9 [facility] ALP enzyme act/vol 137 U/L Critically high 40-130 [facility] ALT enzyme act/vol 15 U/L Normal 0-33 [facility] Comment on above: Result Comment: Spec imen hemolysis has exceeded the interference as definedby Prince. Result may be affected. Suggest recollection ifclinically indicated. Anion gap 3 molar conc 16 mmol/L Critically high 7-13 [facility] AST enzyme act/vol 18 U/L Normal 0-35 [facility] Comment on above: Result Comment: Spec imen hemolysis has exceeded the interference as definedby Prince. Value may be falsely increased. Suggestrecollection if clinically indicated. Bilirubin mass conc mg/dL Normal 0.0-1.2 [facility] Calcium mass conc 9.5 mg/dL Normal 8.6-10.2 [facility] Chloride molar conc 106 mmol/L Normal 98-107 [facility] CO2 molar conc 19 mmol/L Low 22-29 [facility] Creatinine mass conc 0.87 mg/dL Normal 0.50-0.90 [facility] GFR/1.73 sq M predicted among blacks MDRD vol rate/area (S/P/Bld) mL/min/{1.73_m2} Normal >60 [facility] Comment on above: Result Comment: >60 mL/min/1.73m2 EGFR, calc. for ages 18 and older using theMDRD formula (not corrected for weight), is valid for stablerenal function. GFR/1.73 sq M.predicted MDRD vol rate/area mL/min/{1.73_m2} Normal >60 [facility] Comment on above: Result Comment: >60 mL/min/1.73m2 EGFR, calc. for ages 18 and older using theMDRD formula (not corrected for weight), is valid for stablerenal function. Globulin Calculated mass conc (S) 3.5 g/dL Normal 2.3-3.5 [facility] Glucose mass conc 177 mg/dL Critically high 74-109 [facility] Potassium molar conc 4.0 mmol/L Normal 3.5-5.1 [facility] Comment on above: Result Comment: Spec imen hemolysis has exceeded the interference as definedby Prince. Value may be falsely increased. Suggestrecollection if clinically indicated. Protein mass conc 7.4 g/dL Normal 6.4-8.1 [facility] Sodium molar conc 141 mmol/L Normal 132-144 [facility] Urea nitrogen mass conc 15 mg/dL Normal 6-20 [facility] Urinalysis, reflex to micros copicon 01-30-2018 Bilirubin Ql (U) Negative Normal Negative [facility] Color Nom (U) Yellow Normal [place] [facility] Glucose Ql (U) Negative Normal Negative [facility] Hemoglobin Test strip Ql (U) Negative Normal Negative [facility] Ketones Ql (U) Negative Normal Negative [facility] Leukocyte esterase Test strip Ql (U) Negative Normal Negative [facility] Nitrite Test strip Ql (U) Negative Normal Negative [facility] pH Test strip (U) 5.0 [pH] Normal 5.0-9.0 [facility] Protein Test strip Ql (U) Negative Normal Negative [facility] Specific gravity Relative Density (U) 1.025 Normal 1.005-1.03 [facility] Urobilinogen Test strip Qn (U) 0.2 {Kieran'U}/dL Normal < 2.0 [facility] Clarity Nom (U) Clear Normal Clear [facility] XR ACUTE ABD SERIES CHEST [...] Hola Alexandra MD 01/30/18 Final result Normal [facility] Surgical Specimenon 01-11-20 Surgical Specimen Invalid Interpretation Code [facility] Comment on above: Result Comment: [facility] [address] [place] [address] BPFRN SURGICAL PATHOLOGY REPORTPatient Name: JENNIFER GATES Accession No: [id number] Age Sex: 1960 Location: [facility] No: [id number] Collected: 01/10/2018[facility] Rec No: [id number] Received: 01/11/2018Attend Phys: FELIPA SHORT Completed: 01/12/2018Perform Phys: FELIPA VALDEZINAL DIAGNOSIS:A. RANDOM COLON BIOPSIES-COLONIC MUCOSAL FRAGMENTS WITH [...] in greatest dimension. Filtered, in toto, onecassette. OTTO/MACI: [id number] HOUSE M.D. 01/12/2018 Electronically signed out by Page 1 of 1 CBC With Platelet and Differ entialon 12-19-2017 Basophils #/vol (Bld) 0.1 10*3/uL Normal 0.0-0.2 [facility] Basophils/100 WBC (Bld) 0.6 % Normal [facility] Eosinophils #/vol (Bld) 0.1 10*3/uL Normal 0.0-0.7 [facility] Eosinophils/100 WBC (Bld) 1.4 % Normal [facility] Erythrocyte distribution width Ratio (RBC) 13.8 % Normal 11.5-14.5 [facility] Hematocrit Volume Fraction (Bld) 40.1 % Normal 37.0-47.0 [facility] Hemoglobin mass conc (Bld) 13.4 g/dL Normal 12.0-16.0 [facility] Lymphocytes #/vol (Bld) 2.7 10*3/uL Normal 1.0-4.8 [facility] Lymphocytes/100 WBC (Bld) 29.4 % Normal [facility] MCH Entitic mass (RBC) 29.8 pg Normal 27.0-31.3 [facility] MCHC mass conc (RBC) 33.5 % Normal 33.0-37.0 [facility] MCV Entitic volume (RBC) 89.1 fL Normal 82.0-100.0 [facility] Monocytes #/vol (Bld) 0.6 10*3/uL Normal 0.2-0.8 [facility] Monocytes/100 WBC (Bld) 6.6 % Normal [facility] Neutrophils #/vol (Bld) 5.7 10*3/uL Normal 1.4-6.5 [facility] Neutrophils/100 WBC (Bld) 62.0 % Normal [facility] Platelets #/vol (Bld) 214 10*3/uL Normal 130-400 [facility] RBC #/vol (Bld) 4.50 10*6/uL Normal 4.20-5.40 [facility] WBC #/vol (Bld) 9.3 10*3/uL Normal 4.8-10.[address] [facility] [address] ABDOMEN PELVIS WO CONTRAS [...] Juan Aguayo MD 12/19/17 Final result Normal [facility] Comprehensive Metabolic Pane tina 12-19-2017 Albumin mass conc 4.0 g/dL Normal 3.9-4.9 [facility] ALP enzyme act/vol 129 U/L Normal 40-130 [facility] Comment on above: Result Comment: Spec imen hemolysis has exceeded the interference as defined by Prince. Value may be falsely decreased. Suggest recollection if clinically indicated. ALT enzyme act/vol 18 U/L Normal 0-33 [facility] Comment on above: Result Comment: Spec imen hemolysis has exceeded the interference as defined by Prince. Result may be affected. Suggest recollection if clinically indicated. Anion gap molar conc 13 mmol/L Normal 7-13 [facility] AST enzyme act/vol 25 U/L Normal 0-35 [facility] Comment on above: Result Comment: Spec imen hemolysis has exceeded the interference as defined by Prince. Value may be falsely increased. Suggest recollection if clinically indicated. Bilirubin mass conc mg/dL Normal 0.0-1.2 [facility] Calcium mass conc 9.1 mg/dL Normal 8.6-10.2 [facility] Chloride molar conc 108 mmol/L Critically high 98-107 [facility] CO2 molar conc 20 mmol/L Low 22-29 [facility] Creatinine mass conc 0.81 mg/dL Normal 0.50-0.90 [facility] GFR/1.73 sq M predicted among blacks MDRD vol rate/area (S/P/Bld) mL/min/{1.73_m2} Normal >60 [facility] Comment on above: Result Comment: >60 mL/min/1.73m2 EGFR, calc. for ages 18 and older using the MDRD formula (not corrected for weight), is valid for stable renal function. GFR/1.73 sq M.predicted MDRD vol rate/area mL/min/{1.73_m2} Normal >60 [facility] Comment on above: Result Comment: >60 mL/min/1.73m2 EGFR, calc. for ages 18 and older using the MDRD formula (not corrected for weight), is valid for stable renal function. Globulin mass conc (S) 3.6 g/dL Critically high 2.3-3.5 [facility] Glucose mass conc 80 mg/dL Normal 74-109 [facility] Potassium molar conc 4.4 mmol/L Normal 3.5-5.1 [facility] Comment on above: Result Comment: Spec imen hemolysis has exceeded the interference as defined by Prince. Value may be falsely increased. Suggest recollection if clinically indicated. Protein mass conc 7.6 g/dL Normal 6.4-8.1 [facility] Sodium molar conc 141 mmol/L Normal 132-144 [facility] Urea nitrogen mass conc 12 mg/dL Normal 6-20 [facility] Rejection Notificationon Rejected Test CBCWD Normal [facility] Urinalysis, reflex to micros copicon 12-19-2017 Bilirubin Ql (U) Negative Normal Negative [facility] Color Nom (U) Yellow Normal [place] [facility] Glucose Ql (U) Negative Normal Negative [facility] Hemoglobin Ql (U) Negative Normal Negative [facility] Ketones Ql (U) Negative Normal Negative [facility] Leukocyte esterase Test strip Ql (U) Negative Normal Negative [facility] Nitrite Ql (U) Negative Normal Negative [facility] pH (U) 6.5 [pH] Normal 5.0-9.0 [facility] Protein Ql (U) Negative Normal Negative [facility] Specific gravity Relative Density (U) 1.022 Normal 1.005-1.03 [facility] Urobilinogen Qn (U) 0.2 {Kieran'U}/dL Normal < 2.0 [facility] Clarity Nom (U) Clear Normal Clear [facility] CALVIN DIGITAL SCREEN W OR [...] IS VERY IMPORTANT TO YOUR HEALTH. THE [employer] GUIDELINES RECOMMEND THAT WOMEN 40 YEARS OF AGE AND OLDER SHOULD HAVE A MAMMOGRAM EVERY YEAR. A REMINDER LETTER WILL BE SENT AT THE APPROPRIATE TIME. Interpreted by: Negrita Aldridge MD Signed by: Negrita Aldridge MD 11/21/17 Final result Normal [facility] MRI BRAIN W WO CONTRASTon MRI BRAIN W WO CONTRAST MRI BRAIN WITH A ND WITHOUT CONTRAST: COMPARISONS: NONE CLINICAL HISTORY: HISTORY OF TRAUMA IN 2012. FREQUENT FALLS. HEADACHES, SLURRED SPEECH, COGNITIVE IMPAIRMENT. DIZZINESS. TECHNIQUE: Multiplanar, multi-sequence MRI was performed on a 1.5Tesla closed magnet. 20 mL of of ProHance contrast [...] Negrita Aldridge MD 09/14/17 Final result Normal [facility] CBC With Platelet and Differ entialon 09-09-2017 Basophils #/vol (Bld) 0.1 10*3/uL Normal 0.0-0.2 [facility] Basophils/100 WBC (Bld) 0.6 % Normal [facility] Eosinophils #/vol (Bld) 0.2 10*3/uL Normal 0.0-0.7 [facility] Eosinophils/100 WBC (Bld) 2.1 % Normal [facility] Erythrocyte distribution width Ratio (RBC) 14.3 % Normal 11.5-14.5 [facility] Hematocrit Volume Fraction (Bld) 42.0 % Normal 37.0-47.0 [facility] Hemoglobin mass conc (Bld) 14.4 g/dL Normal 12.0-16.0 [facility] Lymphocytes #/vol (Bld) 3.5 10*3/uL Normal 1.0-4.8 [facility] Lymphocytes/100 WBC (Bld) 34.2 % Normal [facility] MCH Entitic mass (RBC) 30.2 pg Normal 27.0-31.3 [facility] MCHC mass conc (RBC) 34.1 % Normal 33.0-37.0 [facility] MCV Entitic volume (RBC) 88.5 fL Normal 82.0-100.0 [facility] Monocytes #/vol (Bld) 0.7 10*3/uL Normal 0.2-0.8 [facility] Monocytes/100 WBC (Bld) 7.3 % Normal [facility] Neutrophils #/vol (Bld) 5.7 10*3/uL Normal 1.4-6.5 [facility] Neutrophils/100 WBC (Bld) 55.8 % Normal [facility] Platelets #/vol (Bld) 226 10*3/uL Normal 130-400 [facility] RBC #/vol (Bld) 4.75 10*6/uL Normal 4.20-5.40 [facility] WBC #/vol (Bld) 10.3 10*3/uL Normal 4.8-10.[address] [facility] [address] HEAD WO CONTRASTon 2017 [...] Imtiaz Aceves MD 09/09/17 Final result Normal [facility] Comprehensive Metabolic Pane tina 09-09-2017 Albumin mass conc 4.0 g/dL Normal 3.9-4.9 [facility] ALP enzyme act/vol 128 U/L Normal 40-130 [facility] Comment on above: Result Comment: Spec imen hemolysis has exceeded the interference as defined by Prince. Value may be falsely decreased. Suggest recollection if clinically indicated. ALT enzyme act/vol 21 U/L Normal 0-33 [facility] Comment on above: Result Comment: Spec imen hemolysis has exceeded the interference as defined by Prince. Result may be affected. Suggest recollection if clinically indicated. Anion gap molar conc 17 mmol/L Critically high 7-13 [facility] AST enzyme act/vol 30 U/L Normal 0-35 [facility] Comment on above: Result Comment: Spec imen hemolysis has exceeded the interference as defined by Prince. Value may be falsely increased. Suggest recollection if clinically indicated. Bilirubin mass conc 0.6 mg/dL Normal 0.0-1.2 [facility] Calcium mass conc 8.8 mg/dL Normal 8.6-10.2 [facility] Chloride molar conc 101 mmol/L Normal 98-107 [facility] CO2 molar conc 22 mmol/L Normal 22-29 [facility] Creatinine mass conc 0.81 mg/dL Normal 0.50-0.90 [facility] GFR/1.73 sq M predicted among blacks MDRD vol rate/area (S/P/Bld) mL/min/{1.73_m2} Normal >60 [facility] Comment on above: Result Comment: >60 mL/min/1.73m2 EGFR, calc. for ages 18 and older using the MDRD formula (not corrected for weight), is valid for stable renal function. GFR/1.73 sq M.predicted MDRD vol rate/area mL/min/{1.73_m2} Normal >60 [facility] Comment on above: Result Comment: >60 mL/min/1.73m2 EGFR, calc. for ages 18 and older using the MDRD formula (not corrected for weight), is valid for stable renal function. Globulin mass conc (S) 3.4 g/dL Normal 2.3-3.5 [facility] Glucose mass conc 172 mg/dL Critically high 74-109 [facility] Potassium molar conc 4.1 mmol/L Normal 3.5-5.1 [facility] Comment on above: Result Comment: Spec imen hemolysis has exceeded the interference as defined by Prince. Value may be falsely increased. Suggest recollection if clinically indicated. Protein mass conc 7.4 g/dL Normal 6.4-8.1 [facility] Sodium molar conc 140 mmol/L Normal 132-144 [facility] Urea nitrogen mass conc 9 mg/dL Normal 6-20 [facility] Magnesiumon 09-09-2017 Magnesium mass conc 2.1 mg/dL Normal 1.7-2.3 [facility] Troponinon 09-09-2017 Troponin I.cardiac mass conc ng/mL Normal 0.000-0.01 [facility] Comment on above: Result Comment: Meth odology by Troponin T. Urinalysis, reflex to micros copicon 07-18-2017 Bilirubin Ql (U) Negative Normal Negative [facility] Clarity Nom (U) Clear Normal Clear [facility] Color Nom (U) Yellow Normal [place] [facility] Glucose Ql (U) Negative Normal Negative [facility] Hemoglobin Ql (U) Negative Normal Negative [facility] Ketones Ql (U) Negative Normal Negative [facility] Leukocyte esterase Test strip Ql (U) Negative Normal Negative [facility] Nitrite Ql (U) Negative Normal Negative [facility] pH (U) 6.5 [pH] Normal 5.0-9.0 [facility] Protein Ql (U) Negative Normal Negative [facility] Specific gravity Relative Density (U) 1.020 Normal 1.005-1.03 [facility] Urobilinogen Qn (U) 0.2 {Kieran'U}/dL Normal < 2.0 [facility] XR LUMBAR SPINE (MIN 4 [...] Juan Aguayo MD 07/18/17 Final result Normal [facility] VITAMIN Don 10-14-2016 VITAMIN D 25.3 ng/mL Low 30.0-100.0 [facility] Comment on above: Order Comment: adive d pt we only do H pylori for breathe or fecal. Gave her info AND shesaid she will advised the dr 10/10/2016 11:36 Result Comment: (20- 30 ng/mL) InsufficiencyThis assay accurately quantifies the sum of vitamin D3, 25-Hydroxy andvitamin D2, 25-Hyroxy. Thyroxine Freeon 10-11-2016 Thyroxine Free 0.89 ng/dL Low 0.93-1.70 [facility] Comment on above: Order Comment: adive d pt we only do H pylori for breathe or fecal. Gave her info AND shesaid she will advised the dr 10/10/2016 11:36 TSH w/out Reflexon 7 Thyroid stimulating hormone (TSH) 2.590 uIU/mL Normal 0.270-4.20 [facility] Comment on above: Order Comment: adive d pt we only do H pylori for breathe or fecal. Gave her info AND shesaid she will advised the dr 10/10/2016 11:36 Uric Acidon 10-10-2016 Urate 5.1 mg/dL Normal 2.4-5.7 [facility] Comment on above: Order Comment: adive d pt we only do H pylori for breathe or fecal. Gave her info AND shesaid she will advised the 10/10/2016 11:36 Vitamin B12 and Folateon Cobalamins (Vitamin B12) 224 pg/mL Normal 211-946 [facility] Comment on above: Order Comment: adive d pt we only do H pylori for breathe or fecal. Gave her info AND shesaid she will advised the 10/10/2016 11:36 Folate 11.6 ng/mL Normal 7.3-26.1 [facility] Comment on above: Order Comment: adive d pt we only do H pylori for breathe or fecal. Gave her info AND shesaid she will advised the 10/10/2016 11:36 Result Comment: As o f 15, the methodology has changed. Results fromthis methodology should not be compared with results fromprevious methodology. Vital Signs Date Time Vital Sign Value Performing Clinician Faci lity 08-28-2024 14:23-0400 Heart rate 84 /min Dr. Leonid Rice MD Work Phone: [facility] 08-28-2024 14:23-0400 Respiratory rate 22 /min Dr. Leonid Rice MD Work Phone: [facility] 08-28-2024 12:46-0400 Body temperature 98 [degF] Dr. Leonid Rice MD Work Phone: [facility] 08-28-2024 12:46-0400 Diastolic blood pressure 77 mm[Hg] Dr. Leonid Rice MD Work Phone: [facility] 08-28-2024 12:46-0400 SaO2% (BldA) [Mass fraction] 91 % Dr. Leonid Rice MD Work Phone: [facility] 08-28-2024 12:46-0400 Systolic blood pressure 127 mm[Hg] Dr. Leonid Rice MD Work Phone: [facility] 08-28-2024 03:54-0400 Body mass index (BMI) [Ratio] 40.6 kg/m2 Dr. Leonid Rice MD Work Phone: [phone](235)120-941725 [address] 08-28-2024 03:54-0400 Body weight 93.[address] Leonid Rice MD Work Phone: 6(310)106-738460 [place] [address] 08-26-2024 14:04-0400 Inhaled oxygen flow rate 1 L/min Dr. Leonid Rice MD Work Phone: 3(234)027-195660 [place] [address] 08-25-2024 21:53-0400 Body height 152.[address] Leonid Rice MD Work Phone: 4(348)479-058460 [place] [address] 08-25-2024 21:00-0400 Diastolic blood pressure 80 mm[Hg] Dr. Leonid Rice MD Work Phone: 8(388)329-800560 [place] [address] 08-25-2024 21:00-0400 Heart rate 103 /min Dr. Leonid Rice MD Work Phone: 1(626)990-601560 [place] [address] 08-25-2024 21:00-0400 Respiratory rate 32 /min Dr. Leonid Rice MD Work Phone: 7(810)031-522760 [place] [address] 08-25-2024 21:00-0400 SaO2% (BldA) [Mass fraction] 96 % Dr. Leonid Rice MD Work Phone: 3(832)255-75[address] [place] [address] 08-25-2024 21:00-0400 Systolic blood pressure 136 mm[Hg] Dr. Leonid Rice MD Work Phone: 6(034)274-39[address] [place] [address] 08-25-2024 20:29-0400 Body temperature 99.3 [degF] Dr. Leonid Rice MD Work Phone: 5(085)760-262260 [place] [address] 08-25-2024 15:37-0400 Body height 152.[address] Leonid Rice MD Work Phone: 4(944)372-691060 [place] [address] 08-25-2024 15:37-0400 Body mass index (BMI) [Ratio] 41.1 kg/m2 Dr. Leonid Rice MD Work Phone: 8(588)619-733960 [place] [address] 08-25-2024 15:37-0400 Body weight 95.[address] Leonid Rcie MD Work Phone: [facility] 01-18-2024 09:48-0500 Diastolic blood pressure 57 mm[Hg] Zachery Toussaint MD Work Phone: [facility] 01-18-2024 09:48-0500 Heart rate 71 /min Zachery Toussaint MD Work Phone: [facility] 01-18-2024 09:48-0500 Respiratory rate 16 /min Zachery Toussaint MD Work Phone: [facility] 01-18-2024 09:48-0500 SaO2% (BldA) [Mass fraction] 97 % Zachery Toussaint MD Work Phone: [facility] 01-18-2024 09:48-0500 Systolic blood pressure 108 mm[Hg] Zachery Toussaint MD Work Phone: [facility] 01-18-2024 08:43-0500 Body mass index (BMI) [Ratio] 42.37 kg/m2 Zachery Toussaint MD Work Phone: [facility] 01-18-2024 08:43-0500 Body temperature 97.5 [degF] Zachery Toussaint MD Work Phone: [facility] 01-18-2024 08:43-0500 Body weight 98.4 kg Zachery Toussaint MD Work Phone: [facility] 01-16-2024 13:00-0500 Diastolic blood pressure 75 mm[Hg] Ruby Golias PT Work Phone: [facility] 01-16-2024 13:00-0500 Heart rate 77 /min Ruby Golias PT Work Phone: [facility] 01-16-2024 13:00-0500 Systolic blood pressure 123 mm[Hg] Ruby Golias PT Work Phone: [facility] 01-08-2024 14:44-0400 Body height 152.4 cm Zachery Toussaint MD Work Phone: [facility] 01-08-2024 14:44-0400 Body mass index (BMI) [Ratio] 42.38 kg/m2 Zachery Toussaint MD Work Phone: [facility] 01-08-2024 14:44-0400 Body weight 98.43 kg Zachery Toussaint MD Work Phone: [facility] 01-08-2024 14:44-0400 Diastolic blood pressure 72 mm[Hg] Zachery Toussaint MD Work Phone: [facility] 01-08-2024 14:44-0400 Heart rate 80 /min Zachery Toussaint MD Work Phone: [facility] 01-08-2024 14:44-0400 Respiratory rate 16 /min Zachery Toussaint MD Work Phone: [facility] 01-08-2024 14:44-0400 SaO2% (BldA) [Mass fraction] 97 % Zachery Toussaint MD Work Phone: [facility] 01-08-2024 14:44-0400 Systolic blood pressure 116 mm[Hg] Zachery Toussaint MD Work Phone: [facility] 01-08-2024 10:57-0400 Body mass index (BMI) [Ratio] 38.95 kg/m2 Marianna Stef LAUNDRY MACHINE OPERATOR.LICENSED PROSTHETIST Work Phone: [facility] 01-08-2024 10:57-0400 Body weight 96.6 kg Marianna Stef LAUNDRY MACHINE OPERATOR.LICENSED PROSTHETIST Work Phone: [facility] 01-08-2024 10:57-0400 Diastolic blood pressure 82 mm[Hg] Marianna Stef LAUNDRY MACHINE OPERATOR.LICENSED PROSTHETIST Work Phone: [facility] 01-08-2024 10:57-0400 Heart rate 76 /min Marianna Stef LAUNDRY MACHINE OPERATOR.LICENSED PROSTHETIST Work Phone: [facility] 01-08-2024 10:57-0400 Respiratory rate 14 /min Marianna Stef LAUNDRY MACHINE OPERATOR.LICENSED PROSTHETIST Work Phone: [facility] 01-08-2024 10:57-0400 SaO2% (BldA) [Mass fraction] 96 % Marianna Stef LAUNDRY MACHINE OPERATOR.LICENSED PROSTHETIST Work Phone: [facility] 01-08-2024 10:57-0400 Systolic blood pressure 124 mm[Hg] Marianna Stef LAUNDRY MACHINE OPERATOR.LICENSED PROSTHETIST Work Phone: [facility] 12-27-2023 14:58-0400 Body mass index (BMI) [Ratio] 39.35 kg/m2 Terrence Ball LAUNDRY MACHINE OPERATOR.LICENSED PROSTHETIST Work Phone: [facility] 12-27-2023 14:58-0400 Body weight 97.6 kg Terrence Ball LAUNDRY MACHINE OPERATOR.LICENSED PROSTHETIST Work Phone: [facility] 12-27-2023 14:58-0400 Diastolic blood pressure 76 mm[Hg] Terrence Ball LAUNDRY MACHINE OPERATOR.LICENSED PROSTHETIST Work Phone: [facility] 12-27-2023 14:58-0400 Heart rate 90 /min Terrence Ball LAUNDRY MACHINE OPERATOR.LICENSED PROSTHETIST Work Phone: [facility] 12-27-2023 14:58-0400 SaO2% (BldA) [Mass fraction] 98 % Terrence Ball LAUNDRY MACHINE OPERATOR.LICENSED PROSTHETIST Work Phone: [facility] 12-27-2023 14:58-0400 Systolic blood pressure 116 mm[Hg] Terrence Ball LAUNDRY MACHINE OPERATOR.LICENSED PROSTHETIST Work Phone: [facility] 12-01-2023 09:49-0400 Body mass index (BMI) [Ratio] 39.23 kg/m2 Eddie Rodríguez LAUNDRY MACHINE OPERATOR.FUN HOUSE ATTENDANT Work Phone: [facility] 12-01-2023 09:49-0400 Body weight 97.3 kg Eddie Rodríguez LAUNDRY MACHINE OPERATOR.FUN HOUSE ATTENDANT Work Phone: [facility] 12-01-2023 09:49-0400 Diastolic blood pressure 83 mm[Hg] Eddie Rodríguez LAUNDRY MACHINE OPERATOR.FUN HOUSE ATTENDANT Work Phone: [facility] 12-01-2023 09:49-0400 Heart rate 71 /min Eddie Rodríguez LAUNDRY MACHINE OPERATOR.FUN HOUSE ATTENDANT Work Phone: [facility] 12-01-2023 09:49-0400 Respiratory rate 16 /min Eddie Jensens LAUNDRY MACHINE OPERATOR.FUN HOUSE ATTENDANT Work Phone: [facility] 12-01-2023 09:49-0400 Systolic blood pressure 135 mm[Hg] Eddie Jensens LAUNDRY MACHINE OPERATOR.FUN HOUSE ATTENDANT Work Phone: [facility] 09-13-2023 08:52-0400 Diastolic blood pressure 64 mm[Hg] Zachery Toussaint MD Work Phone: [facility] 09-13-2023 08:52-0400 Respiratory rate 16 /min Zachery Toussaint MD Work Phone: [facility] 09-13-2023 08:52-0400 SaO2% (BldA) [Mass fraction] 98 % Zachery Toussaint MD Work Phone: [facility] 09-13-2023 08:52-0400 Systolic blood pressure 92 mm[Hg] Zachery Toussaint MD Work Phone: [facility] 09-13-2023 08:42-0400 Heart rate 73 /min Zachery Toussaint MD Work Phone: [facility] 09-13-2023 07:15-0400 Body temperature 97.59 [degF] Zachery Toussaint MD Work Phone: [facility] 08-23-2023 17:01-0400 Body height 157.5 cm Marianna Yap APRN.LICENSED PROSTHETIST Work Phone: [facility] 08-23-2023 17:01-0400 Body mass index (BMI) [Ratio] 39.14 kg/m2 Marianna Yap LAUNDRY MACHINE OPERATOR.LICENSED PROSTHETIST Work Phone: [facility] 08-23-2023 17:01-0400 Body temperature 98.91 [degF] Marianna Yap LAUNDRY MACHINE OPERATOR.LICENSED PROSTHETIST Work Phone: [facility] 08-23-2023 17:01-0400 Body weight 97.07 kg Marianna Stef LAUNDRY MACHINE OPERATOR.LICENSED PROSTHETIST Work Phone: [facility] 08-23-2023 17:01-0400 Diastolic blood pressure 74 mm[Hg] Marianna Stef LAUNDRY MACHINE OPERATOR.LICENSED PROSTHETIST Work Phone: [facility] 08-23-2023 17:01-0400 Heart rate 86 /min Marianna EllisStef LAUNDRY MACHINE OPERATOR.LICENSED PROSTHETIST Work Phone: [facility] 08-23-2023 17:01-0400 Respiratory rate 14 /min Marianna EllisStef LAUNDRY MACHINE OPERATOR.LICENSED PROSTHETIST Work Phone: [facility] 08-23-2023 17:01-0400 SaO2% (BldA) [Mass fraction] 98 % Marianna EllisStef LAUNDRY MACHINE OPERATOR.LICENSED PROSTHETIST Work Phone: [facility] 08-23-2023 17:01-0400 Systolic blood pressure 134 mm[Hg] Marianna AbrahamStef LAUNDRY MACHINE OPERATOR.LICENSED PROSTHETIST Work Phone: [facility] 02-21-2023 12:17-0500 Body temperature 96.98 [degF] MIKAEL PULIDO MD [facility] 02-21-2023 12:17-0500 Body weight 100.3 kg MIKAEL PULIDO MD [facility] 02-21-2023 12:17-0500 Diastolic Blood Pressure Non-Invasive 58 mm[Hg] MIKAEL PULIDO MD [facility] 02-21-2023 12:17-0500 Heart rate 73 /min MIKAEL PULIDO MD [facility] 02-21-2023 12:17-0500 Respiratory rate 16 /min MIKAEL PULIDO MD [facility] 02-21-2023 12:17-0500 Systolic Blood Pressure Non-Invasive 158 mm[Hg] MIKAEL PULIDO MD [facility] 01-26-2023 16:11-0500 Diastolic blood pressure 89 mm[Hg] [facility] 01-26-2023 16:11-0500 Heart rate 58 /min [facility] 01-26-2023 16:11-0500 Respiratory rate 19 /min [facility] 01-26-2023 16:11-0500 SaO2% (BldA) [Mass fraction] 97 % [facility] 01-26-2023 16:11-0500 Systolic blood pressure 124 mm[Hg] [facility] 01-26-2023 11:20-0500 Body height 152.4 cm [facility] 01-26-2023 11:20-0500 Body mass index (BMI) [Ratio] 42.4 kg/m2 [facility] 01-26-2023 11:20-0500 Body temperature 96.8 [degF] [facility] 01-26-2023 11:20-0500 Body weight 98.5 kg [facility] 12-15-2022 10:07-0400 Body weight 97.07 kg Meredith Jeff LAUNDRY MACHINE OPERATOR.LICENSED PROSTHETIST Work Phone: [facility] 12-15-2022 10:07-0400 Diastolic blood pressure 72 mm[Hg] Meredith Catlett LAUNDRY MACHINE OPERATOR.LICENSED PROSTHETIST Work Phone: [facility] 12-15-2022 10:07-0400 Systolic blood pressure 106 mm[Hg] Meredith Catlett LAUNDRY MACHINE OPERATOR.LICENSED PROSTHETIST Work Phone: [facility] 11-28-2022 11:00-0400 Body temperature 97.5 [degF] Marianna Older LAUNDRY MACHINE OPERATOR.LICENSED PROSTHETIST Work Phone: [facility] 11-28-2022 11:00-0400 Body weight 95.71 kg Marianna Older LAUNDRY MACHINE OPERATOR.LICENSED PROSTHETIST Work Phone: [facility] 11-28-2022 11:00-0400 Diastolic blood pressure 56 mm[Hg] Marianna Older LAUNDRY MACHINE OPERATOR.LICENSED PROSTHETIST Work Phone: [facility] 11-28-2022 11:00-0400 Heart rate 76 /min Marianna Older LAUNDRY MACHINE OPERATOR.LICENSED PROSTHETIST Work Phone: [facility] 11-28-2022 11:00-0400 Systolic blood pressure 105 mm[Hg] Marianna Older LAUNDRY MACHINE OPERATOR.LICENSED PROSTHETIST Work Phone: [facility] 11-18-2022 13:12-0400 Body weight 97.07 kg Marianna Older LAUNDRY MACHINE OPERATOR.LICENSED PROSTHETIST Work Phone: [facility] 11-18-2022 13:12-0400 Diastolic blood pressure 64 mm[Hg] Marianna Older LAUNDRY MACHINE OPERATOR.LICENSED PROSTHETIST Work Phone: [facility] 11-18-2022 13:12-0400 Heart rate 81 /min Marianna Older LAUNDRY MACHINE OPERATOR.LICENSED PROSTHETIST Work Phone: [facility] 11-18-2022 13:12-0400 Respiratory rate 16 /min Marianna Older LAUNDRY MACHINE OPERATOR.LICENSED PROSTHETIST Work Phone: [facility] 11-18-2022 13:12-0400 SaO2% (BldA) [Mass fraction] 97 % Marianna Older LAUNDRY MACHINE OPERATOR.LICENSED PROSTHETIST Work Phone: [facility] 11-18-2022 13:12-0400 Systolic blood pressure 110 mm[Hg] Marianna Older LAUNDRY MACHINE OPERATOR.LICENSED PROSTHETIST Work Phone: [facility] 05-31-2022 10:14-0400 Body temperature 98.4 [degF] Leonid Rice MD Work Phone: [facility] 05-31-2022 10:14-0400 Body weight 97.07 kg Leonid Rice MD Work Phone: [facility] 05-31-2022 10:14-0400 Diastolic blood pressure 80 mm[Hg] Leonid Rice MD Work Phone: [facility] 05-31-2022 10:14-0400 Heart rate 92 /min Leonid Rice MD Work Phone: [facility] 05-31-2022 10:14-0400 Respiratory rate 18 /min Leonid Rice MD Work Phone: [facility] 05-31-2022 10:14-0400 Systolic blood pressure 120 mm[Hg] Leonid Rice MD Work Phone: [facility] 02-16-2022 08:02-0500 Body height 157.5 cm Fabienne Lee PA-C Work Phone: [facility] 02-16-2022 08:02-0500 Body temperature 97.59 [degF] Fabienne Lee PA-C Work Phone: [facility] 02-16-2022 08:02-0500 Body weight 100.25 kg Fabienne Lee PA-C Work Phone: [facility] 02-16-2022 08:02-0500 Diastolic blood pressure 82 mm[Hg] Fabienne Lee PA-C Work Phone: [facility] 02-16-2022 08:02-0500 Heart rate 113 /min Fabienne [place] PA-C Work Phone: [facility] 02-16-2022 08:02-0500 SaO2% (BldA) [Mass fraction] 95 % Fabienne [place] PA-C Work Phone: [facility] 02-16-2022 08:02-0500 Systolic blood pressure 108 mm[Hg] Fabienne Lee PA-C Work Phone: [facility] 02-15-2022 11:03-0500 Body weight 100.25 kg Arcelia Garcia APRN.LICENSED PROSTHETIST Work Phone: [facility] 02-15-2022 11:03-0500 Diastolic blood pressure 69 mm[Hg] Arcelia Garcia APRN.LICENSED PROSTHETIST Work Phone: [facility] 02-15-2022 11:03-0500 Heart rate 64 /min Arcelia Garcia APRN.LICENSED PROSTHETIST Work Phone: [facility] 02-15-2022 11:03-0500 SaO2% (BldA) [Mass fraction] 98 % Arcelia Garcia APRN.LICENSED PROSTHETIST Work Phone: [facility] 02-15-2022 11:03-0500 Systolic blood pressure 113 mm[Hg] Arcelia Garcia APRN.LICENSED PROSTHETIST Work Phone: [facility] 02-14-2022 18:33-0500 Body temperature 98.1 [degF] [facility] Work Phone: 02-14-2022 18:33-0500 Diastolic blood pressure 74 mm[Hg] [facility] Work Phone: 02-14-2022 18:33-0500 Heart rate 74 /min [facility] Work Phone: 02-14-2022 18:33-0500 Respiratory rate 15 /min [facility] Work Phone: 02-14-2022 18:33-0500 SaO2% (BldA) [Mass fraction] 99 % [facility] Work Phone: 02-14-2022 18:33-0500 Systolic blood pressure 132 mm[Hg] [facility] Work Phone: 02-14-2022 15:26-0500 Body height 152.4 cm [facility] Work Phone: 02-14-2022 15:26-0500 Body mass index (BMI) [Ratio] 43.1 kg/m2 [facility] Work Phone: 02-14-2022 15:26-0500 Body weight 100.24 kg [facility] Work Phone: 02-11-2022 16:49-0500 Body weight 100.2 kg Leonid Rice MD Work Phone: [facility] 02-11-2022 16:49-0500 Diastolic blood pressure 86 mm[Hg] Leonid Rice MD Work Phone: [facility] 02-11-2022 16:49-0500 Heart rate 80 /min Leonid Rice MD Work Phone: [facility] 02-11-2022 16:49-0500 Respiratory rate 16 /min Leonid Rice MD Work Phone: [facility] 02-11-2022 16:49-0500 SaO2% (BldA) [Mass fraction] 97 % Leonid Rice MD Work Phone: [facility] 02-11-2022 16:49-0500 Systolic blood pressure 128 mm[Hg] Leonid Rice MD Work Phone: [facility] 12-31-2021 13:31-0400 Body weight 100.25 kg Marianna Older LAUNDRY MACHINE OPERATOR.LICENSED PROSTHETIST Work Phone: [facility] 12-31-2021 13:31-0400 Diastolic blood pressure 72 mm[Hg] Marianna Older LAUNDRY MACHINE OPERATOR.LICENSED PROSTHETIST Work Phone: [facility] 12-31-2021 13:31-0400 Heart rate 92 /min Marianna Older LAUNDRY MACHINE OPERATOR.LICENSED PROSTHETIST Work Phone: [facility] 12-31-2021 13:31-0400 Respiratory rate 16 /min Marianna Older LAUNDRY MACHINE OPERATOR.LICENSED PROSTHETIST Work Phone: [facility] 12-31-2021 13:31-0400 Systolic blood pressure 106 mm[Hg] Marianna Older LAUNDRY MACHINE OPERATOR.LICENSED PROSTHETIST Work Phone: [facility] 11-29-2021 14:05-0400 Body weight 99.34 kg Marianna Older LAUNDRY MACHINE OPERATOR.LICENSED PROSTHETIST Work Phone: [facility] 11-29-2021 14:05-0400 Diastolic blood pressure 80 mm[Hg] Marianna Older LAUNDRY MACHINE OPERATOR.LICENSED PROSTHETIST Work Phone: [facility] 11-29-2021 14:05-0400 Heart rate 80 /min Marianna Older LAUNDRY MACHINE OPERATOR.LICENSED PROSTHETIST Work Phone: [facility] 11-29-2021 14:05-0400 Respiratory rate 16 /min Marianna Older LAUNDRY MACHINE OPERATOR.LICENSED PROSTHETIST Work Phone: [facility] 11-29-2021 14:05-0400 Systolic blood pressure 142 mm[Hg] Marianna Older LAUNDRY MACHINE OPERATOR.LICENSED PROSTHETIST Work Phone: [facility] 11-13-2021 15:23-0400 Body temperature 98.2 [degF] Terell Joseph MD Work Phone: [facility] 11-13-2021 15:23-0400 Body weight 99.61 kg Terell Joseph MD Work Phone: [facility] 11-13-2021 15:23-0400 Diastolic blood pressure 76 mm[Hg] Terell Joseph MD Work Phone: [facility] 11-13-2021 15:23-0400 Heart rate 73 /min Terell Joseph MD Work Phone: [facility] 11-13-2021 15:23-0400 Respiratory rate 18 /min Terell Joseph MD Work Phone: [facility] 11-13-2021 15:23-0400 SaO2% (BldA) [Mass fraction] 97 % Terell Joseph MD Work Phone: [facility] 11-13-2021 15:23-0400 Systolic blood pressure 146 mm[Hg] Terell Joseph MD Work Phone: [facility] 09-30-2021 13:43-0400 Body temperature 97.7 [degF] Leonid Rice MD Work Phone: [facility] 09-30-2021 13:43-0400 Body weight 95.71 kg Leonid Rice MD Work Phone: [facility] 09-30-2021 13:43-0400 Diastolic blood pressure 78 mm[Hg] Leonid Rice MD Work Phone: [facility] 09-30-2021 13:43-0400 Heart rate 80 /min Leonid Rice MD Work Phone: [facility] 09-30-2021 13:43-0400 Respiratory rate 24 /min Leonid Rice MD Work Phone: [facility] 09-30-2021 13:43-0400 Systolic blood pressure 128 mm[Hg] Leonid Rice MD Work Phone: [facility] Encounters Encounter Date Encounter Type Care Provider Facility Start: 08-27-2024 Non-patient / Non-visit Dr. Alcon Cr MD -[facility] Work Phone: Start: 08-26-2024 Non-patient / Non-visit Dr. Alcon Cr MD -[place] [facility] Work Phone: Start: 08-25-2024 ambulatory Modesta Caro Facility:[facility] Start: 08-25-2024 End: 08-28-2024 Evaluation and management of inpatient Dr. Modesta Caro DO -[facility] Work Phone: Start: 08-25-2024 End: 08-28-[address] Leonid Rice MD Work Phone: [facility] Work Phone: Start: 01-18-2024 End: 01-18-2024 ambulatory Zachery Toussaint Facility:[facility] Start: 01-18-2024 End: 01-18-2024 Subsequent hospital visit by physician Zachery Toussaint MD Work Phone: Ambulatory Surgery Comment on above: Epigastric abdominal pain [R10.13] Start: 01-16-2024 End: 01-16-2024 ambulatory Ruby Golias PT Work Phone: [facility] Physical Therapy Comment on above: Acute medial meniscu s tear of left knee, subsequent encounter (Primary Dx); Chronic pain of left knee; Tear of medial meniscus of left knee, current, unspecified tear type, initial encounter Start: 01-08-2024 End: 01-08-2024 ambulatory Zachery Toussaint Facility:[facility] Start: 01-08-2024 End: 01-08-2024 Patient encounter procedure Marianna Yap APRN.CNP Work Phone: Internal Medicine [place] Comment on above: Epigastric abdominal pain (Primary Dx); Nausea; Encounter for immunization; Chronic pain of left knee Epigastric abdominal pain; Nausea Start: 12-27-2023 End: 12-27-2023 Subsequent hospital visit by physician Ana Laura [facility] Radiology Comment on above: Smoker [F17.200] Start: 12-27-2023 End: 12-27-2023 ambulatory UNKNOWN PROVIDER Facility:[facility] Start: 12-27-2023 End: 12-27-2023 Patient encounter procedure Smiley De La Paz DO Work Phone: Orthopaedics Comment on above: Tear of medial menis cus of left knee, current, unspecified tear type, initial encounter (Primary Dx); Chronic pain of left knee Lung nodule (Primary Dx); Encounter for screening for lung cancer; Smoker Start: 12-05-2023 End: 12-07-2023 Orders Only Arcelia Garcia APRN.LICENSED PROSTHETIST Work Phone: Pulmonary Medicine Comment on above: Smoker (Primary Dx); Encounter for screening for malignant neoplasm of lung Results Start: 12-01-2023 End: 12-01-2023 Subsequent hospital visit by physician [facility] [place] Work Phone: Radiology Comment on above: Chronic pain of left knee [M25.562, G89.29] Start: 12-01-2023 End: 12-01-2023 ambulatory LEONID RICE Facility:[facility] Start: 12-01-2023 End: 12-01-2023 Office outpatient visit 25 minutes Eddie Rodríguez APRN.FUN HOUSE ATTENDANT Work Phone: [facility] [place] Comment on above: Chronic pain of left [...] Start: 10-03-2023 End: 10-03-2023 ambulatory LEONID RICE Facility:[facility] Start: 10-03-2023 End: 10-03-2023 Subsequent hospital visit by physician [facility] Work Phone: Radiology Comment on above: Abnormal mammogram o f left breast [R92.8] Start: 09-13-2023 End: 09-13-2023 ambulatory Zachery Toussaint Facility:[facility] Start: 09-13-2023 End: 09-13-2023 Subsequent hospital visit by physician Zachery Toussaint MD Work Phone: Ambulatory Surgery Comment on above: Screening for colon cancer [Z12.11] Start: 09-11-2023 Orders Only Leonid gonzalez MD Work Phone: Internal Medicine [place] Comment on above: Abnormal mammogram o f left breast (Primary Dx) Results Start: 08-30-2023 Documentation procedure Mammog mily Coordinator [facility] Department Start: 08-30-2023 Letter encounter Mammography Coordinator [facility] Department Start: 08-30-2023 Telephone encounter Zachery patton MD Work Phone: General Surgery Comment on above: Orders; Patient Ques tion Start: 08-29-2023 End: 08-29-2023 ambulatory LEONID RICE Facility:[facility] Start: 08-29-2023 End: 08-29-2023 Subsequent hospital visit by physician [facility] Comment on above: Encounter for screen ing mammogram for malignant neoplasm of breast [Z12.31] Start: 08-23-2023 End: 08-23-2023 Patient encounter procedure Marianna Yap APRN.CNP Work Phone: [facility] [place] Comment on above: Type 2 diabetes bear itus without complication, without long- term current use of insulin (HCC) (Primary Dx); Left hand pain; Moderate persistent asthma, unspecified whether complicated; Obesity, Class III, BMI >= 40; Screening for colon cancer; Encounter for immunization Start: 08-23-2023 End: 08-23-2023 ambulatory LEONID RICE Facility:[facility] Start: 07-12-2023 Admission to [facility] Leonid Rice MD Work Phone: Ambulatory Surgery Start: 07-12-2023 ambulatory Leonid gonzalez MD Work Phone: Ambulatory Surgery Start: 06-02-2023 Refill Leonid gonzalez MD Work Phone: [facility] [place] Comment on above: Refill Request Orders (Mammogram or sharee mailed to her home; I verified address as well./) Start: 03-20-2023 End: 03-20-2023 ambulatory LEONID RICE Facility:[facility] Start: 03-02-2023 End: 03-02-2023 ambulatory LEONID RICE Facility:[facility] Start: 02-21-2023 End: 02-21-2023 Emergency department patient visit MIKAEL PULIDO MD Facility:[facility] Start: 02-21-2023 End: 02-21-2023 Emergency department patient visit MIKAEL PULIDO MD [facility] Start: 01-26-2023 ambulatory Leonid gonzalez MD Work Phone: Internal [facility] [place] Comment on above: Chest Pain Start: 01-26-2023 End: 01-26-2023 Emergency department patient visit [facility] Work Phone: Start: 12-15-2022 End: 12-15-2022 Patient encounter procedure Meredith Jimenez LAUNDRY MACHINE OPERATOR.LICENSED PROSTHETIST Work Phone: OB/Gynecology Comment on above: Skin yeast infection (Primary Dx) Start: 12-02-2022 Refill Dana saavedra MD Work Phone: Pulmonary Medicine Comment on above: Refill Request Start: 11-28-2022 End: 11-28-2022 Patient encounter procedure Marianna Older LAUNDRY MACHINE OPERATOR.LICENSED PROSTHETIST Work Phone: Internal [facility] [place] Comment on above: Left hand pain (Prim cheng Dx); Need for influenza vaccination Start: 11-23-2022 Telephone encounter Marianna Older LAUNDRY MACHINE OPERATOR.LICENSED PROSTHETIST Work Phone: Internal [facility] [place] Comment on above: Results Start: 11-18-2022 End: 11-18-2022 Subsequent hospital visit by physician [facility] Work Phone: Radiology Comment on above: Left hand pain [M79. 642] Start: 11-18-2022 End: 11-18-2022 Patient encounter procedure Marianna Older LAUNDRY MACHINE OPERATOR.LICENSED PROSTHETIST Work Phone: [facility] [place] Comment on above: Left hand pain (Prim cheng Dx) Start: 07-27-2022 Telephone encounter Marianna Easley APRN.LICENSED PROSTHETIST Work Phone: [facility] [place] Comment on above: Results Start: 06-13-2022 Telephone encounter Leonid mchugh MD Work Phone: [facility] [place] Comment on above: Results Start: 06-06-2022 Documentation procedure Mammog mily Coordinator [facility] Start: 06-06-2022 Letter encounter Mammography Coordinator [facility] Department Start: 06-03-2022 End: 06-03-2022 Subsequent hospital visit by physician Screen Mammo [facility] Mammogram Comment on above: Encounter for screen ing mammogram for malignant neoplasm of breast [Z12.31] Start: 05-31-2022 End: 05-31-2022 Subsequent hospital visit by physician Xr [facility] [place] [facility] Work Phone: Radiology Comment on above: Canceled (CC cx: Err or or Template Change) Chronic left shoulde r pain [M25.512, G89.29] Start: 05-31-2022 End: 05-31-2022 Patient encounter procedure Leonid Rice MD Work Phone: [facility] [place] Comment on above: Chronic left shoulde r pain (Primary Dx); Asthma with COPD (HCC); Type 2 diabetes mellitus without complication, without long-term current use of insulin (HCC); Encounter for screening mammogram for malignant neoplasm of breast; Constipation, unspecified constipation type Start: 05-25-2022 Refill Leonid gonzalez MD Work Phone: [facility] [place] Comment on above: Refill Request Start: 04-06-2022 Telephone encounter Leonid mchugh MD Work Phone: [facility] [place] Comment on above: Cpap Form; Lat OV no te Start: 04-01-2022 Telephone encounter Arcelia Garcia APRN.LICENSED PROSTHETIST Work Phone: Pulmonary Medicine Comment on above: Results (LDCT ) Start: 03-31-2022 End: 03-31-2022 Subsequent hospital visit by physician [facility] Radiology Comment on above: Smoker [F17.200] Start: 02-16-2022 End: 02-16-2022 Patient encounter procedure Fabienne Howard PA-C Work Phone: General Surgery Comment on above: Abscess of skin of a bdomen (Primary Dx) Start: 02-15-2022 End: 02-15-2022 Patient encounter procedure Arcelia Garcia APRN.LICENSED PROSTHETIST Work Phone: Pulmonary Medicine Comment on above: Encounter for screen ing for lung cancer (Primary Dx); Smoker Start: 02-14-2022 End: 02-14-2022 Emergency department patient visit [facility] Start: 02-11-2022 End: 02-11-2022 Patient encounter procedure Leonid Rice MD Work Phone: [facility] [place] Comment on above: Sebaceous cyst (Prim cheng Dx); Type 2 diabetes mellitus without complication, without long-term current use of insulin (HCC); Tobacco use Start: 12-31-2021 End: 12-31-2021 Patient encounter procedure Marianna Easley APRN.LICENSED PROSTHETIST Work Phone: [facility] [place] Comment on above: Asthma with COPD (HC C) (Primary Dx); Type 2 diabetes mellitus without complication, without long-term current use of insulin (HCC); JOSSELIN (obstructive sleep apnea); Encounter for immunization; Tobacco use; Obesity, Class III, BMI >= 40; Severe episode of recurrent major depressive disorder, without psychotic features (HCC); Anxiety Start: 11-29-2021 End: 11-29-2021 Subsequent hospital visit by physician Xr [facility] Work Phone: Radiology Comment on above: Lower abdominal pain [R10.30] Start: 11-29-2021 End: 11-29-2021 Patient encounter procedure Marianna Easley APRN.LICENSED PROSTHETIST Work Phone: Internal [facility] [place] Comment on above: Lower abdominal pain (Primary Dx); Constipation, unspecified constipation type; Type 2 diabetes mellitus without complication, without long-term current use of insulin (HCC) Start: 11-13-2021 End: 11-13-2021 Patient encounter procedure Terell Joseph MD Work Phone: [facility] [place] [facility] Comment on above: Syncope, unspecified syncope type (Primary Dx) Start: 11-01-2021 Refill Leonid gonzalez MD Work Phone: [facility] [place] Comment on above: Refill Request Start: 10-14-2021 Telephone encounter Leonid mchugh MD Work Phone: [facility] [place] Comment on above: Results Start: 10-06-2021 End: 10-06-2021 Subsequent hospital visit by physician [facility] Work Phone: Radiology Comment on above: Epigastric abdominal pain [R10.13] Start: 09-30-2021 End: 09-30-2021 Patient encounter procedure Leonid Rice MD Work Phone: [facility] [place] Comment on above: Malaise (Primary Dx) ; Epigastric abdominal pain; Dysgeusia; Type 2 diabetes mellitus without complication, without long-term current use of insulin (HCC); Severe episode of recurrent major depressive disorder, without psychotic features (HCC) Start: 08-31-2021 Telephone encounter Dana Hensley MD Work Phone: Pulmonary Medicine Comment on above: FYI-No Action Needed Start: 08-09-2021 Refill Dana saavedra MD Work Phone: Pulmonary Medicine Comment on above: Refill Request Start: 07-12-2020 End: 07-12-2020 Emergency department patient visit DR MIKAEL PELLETIER [facility] Start: 06-26-2018 End: 06-26-2018 Emergency department patient visit CHAYO Poon [facility] Start: 04-25-2018 End: 04-28-2018 Patient encounter procedure CHAYO Poon [facility] Start: 04-10-2018 End: 04-10-2018 Patient encounter procedure FELIPA Hubbard [facility] Start: 02-22-2018 End: 02-22-2018 Emergency department patient visit CHAYO Poon [facility] Start: 01-30-2018 End: 02-02-2018 Patient encounter procedure CHAYO CROSS [facility] Start: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 preservative Dana Hensley MD Work Phone: [facility] Work Phone: 05-06-2019 influenza, injectabl e, quadrivalent, preservative free Dana Hensley MD Work Phone: [facility] Work Phone: 05-06-2019 pneumococcal polysaccharide vaccine, 23 valent Dana Hensley MD Work Phone: [facility] Work Phone: 05-06-2019 tetanus toxoid, redu manjeet diphtheria toxoid, and acellular pertussis vaccine, adsorbed Dana Hensley MD Work Phone: [facility] Work Phone: 12-15-2018 influenza, injectabl e, quadrivalent, contains preservative Dana Hensley MD Work Phone: [facility] Work Phone: 01-24-2018 Influenza, injectabl e, Madin Hollsopple Canine Kidney, quadrivalent with preservative Dana Hensley MD Work Phone: [facility] Work Phone: 11-02-2017 tetanus toxoid, redu manjeet diphtheria toxoid, and acellular pertussis vaccine, adsorbed Dana Hensley MD Work Phone: [facility] Work Phone: 03-15-2016 influenza, seasonal, injectable Dana Hensley MD Work Phone: [facility] Work Phone: 02-16-2015 pneumococcal polysaccharide vaccine, 23 valent Dana Hensley MD Work Phone: [facility] 01-11-2015 Influenza virus vaccine [facility] 01-11-2015 influenza, seasonal, injectable, preservative free Dana Hensley MD Work Phone: [facility] Work Phone: 12-31-2014 influenza virus vaccine, unspecified formulation Dana Hensley MD Work Phone: [facility] Work Phone: 12-12-2013 influenza, injectabl e, quadrivalent, preservative free Dana Hensley MD Work Phone: [facility] Work Phone: 12-22-1995 influenza nasal, unspecified formulation Dana Hensley MD Work Phone: [facility] Work Phone: Payers Date Payer Category Payer Self-pay [id number] 2023 Unknown [id number] 2023 Unknown [id number] 2016 Medicaid [facility] MEDICAID [id number] 2016-Present [phone] [address] [place] [address] Medicaid [id number] 2016 Medicaid [id number] 2013 Unknown [id number] 2013 Unknown [id number] 2005 Unknown [facility] [id number] 2005-Present [phone] [place] [address] [facility] [id number] 1962 Unknown [id number] 1962 Unknown [id number] 1962 Unknown [id number] [id number] 1962 Unknown [id number] [id number] 1962 Unknown [id number] 1962 Unknown [id number] [id number] 1962 Unknown [id number] [id number] 1962 Unknown [id number] [id number] 1962 Unknown [id number] [id number] 1962 Unknown [id number] [id number] 1962 Unknown [id number] [id number] 1962 Unknown [id number] [id number] 1962 Unknown [id number] [id number] Unknown [id number] [id number] Unknown [id number] Unknown [id number] Social History Date Type Detail Facility Start: 09-23-2010 End: 08-28-2024 Tobacco smoking status MDIS Smokes tobacco daily [facility] Work Phone: Start: 03-13-1980 History of tobacco use Cigarette Smo ker [facility] Work Phone: Start: 09-23-2010 End: 11-18-2022 Cigarettes smoked current (pack per day) - Reported 0.5 [facility] Start: 09-23-2010 End: 12-27-2023 Tobacco use and exposure Smokeless tobacco non-user [facility] Work Phone: Start: 10-28-2020 End: 01-08-2024 Alcohol intake Current non-drinker of alcohol (finding) [facility] Start: 10-21-2020 History SDOH Social Connections Phone 4 [facility] Start: 10-21-2020 History SDOH Social Connections Anglican 1 [facility] Start: 10-21-2020 History SDOH Social Connections Membership 2 [facility] Start: 10-21-2020 History SDOH Social Connections Living 5 [facility] Start: 04-09-2014 End: 11-13-2021 Tobacco Comment smokes one pack in a week [facility] Start: 1960 Sex Assigned At Not on file C [facility] Start: 08-15-2021 End: 02-11-2022 Exposure to SARS-CoV-2 (event) Not sure [facility] Start: 02-14-2022 End: 01-26-2023 Tobacco smoking status NHIS Unknown if ever smoked [facility] Start: 09-12-2019 None [facility] Start: 09-28-2019 Alone [facility] Start: 07-28-2020 Non-smoker [facility] Start: 1960 Sex Assigned At Female W [facility] Start: 02-15-2022 Tobacco Comment Started as a teenager, can't remember. Down to about 1 pack every 3 days lately [facility] Start: 10-21-2020 End: 11-18-2022 Social connection and isolation panel [facility] Do you belong to any clubs or organizations such as sabianist groups, unions, fraternal or athletic groups, or school groups? No [facility] Are you now , , , , never or living with a partner? [facility] How hard is it for y ou to pay for the very basics like food, housing, medical care, and heating Not hard at all [facility] (I/We) worried wheth er (my/our) food would run out before (I/we) got money to buy more. Never true [facility] Tobacco smoking status No Smokin g Status Entered [facility] Medical Equipment Procedure Code Equipment Code Equipment Origin al Text Equipment Identifier Dates Mesh Srg Dlmsh [id number] - [id number] Start: 11-29-2011 Test blood sugar(s) 1 times daily. Dx: Type 2 DM - Controlled E11.9 Insulin: No [id number], [id number], [id number], [id number], [id number], [id number] Start: 09-30-2020 End: 08-23-2023 Comment on above: Test blood sugar(s) 1 times daily. Dx: Type 2 DM - Controlled E11.9 Insulin: No Goals Date Patient Goal Desired Activity /State Functional Status Date Assessment Result Facility 08-28-2024 Functional status Bedrest [facility] Work Phone: 08-27-2024 Functional status Assistive Santa kaylen Rolling Walker [facility] Work Phone: Mental Status Date Assessment Result Facility 08-28-2024 Cognitive function Appropriate;Cooperativ [facility] Work Phone: 08-27-2024 Cognitive function Arousable To Voice/Nam [facility] Work Phone: 02-21-2023 Mental Status Orientation Oriented x 4 [facility] 01-26-2023 Cognitive function Voice/Name [facility] Work Phone: Clinical Notes 08-06-2020 to 08-28-2024 Note Date & Type Note Facility 08-28-2024 Discharge summary Note Date/Time August 28, 2024 12:48pm [facility] Medical Records Department [address] [place] [address] Instructions for Home/Discharge Instructions 08/28/24 1140 MR#: [id number] Acct: [id number] Name: JENNIFER RAMIREZ Rep #:[id number] : 1960 63 From: Alcon Stephens PCP: Dr. Leonid Rice MD Status:A DM SO Discharge Instructions Diet Discharge Diet: Low fat / Low cholesterol and 2000 mg Sodium Diet DC O2, CPAP, BIPAP needs Home O2 Discharge instructions: No Dressing / Incision Discharge Activity: Return to Normal Activity Weight Bearing Status: Weight bearing as tolerated Dressing / Incision Call your doctor if you observe: Fever of 101 or Higher, Coldness, Increased Pain, Numbness or Tingling, Change in Color, Inability to urinate, Inability to have a bowel movement, Shortness of breath, Dizziness, Fainting spells, Swellingin the ankles, Chest pain, Prolonged hiccupping, Increased palpitations (irregular heartbeat) and Calf discomfort Follow Up Care When: IN 2 WEEKS Test Results: Test results from this visit will be discussed in further detail at your follow-up appointment, if applicable. Discharge Plan Admission Admit Date/Time: 08/25/24 20:53 Primary Reason for Your Visit: copd exacerbation Attending Provider: Alcon Cr Primary Care Provider: Leonid Rice Consulting Providers: Modesta Caro Instructions Additional Instructions / Restrictions: Patient needs to follow-up with the genetics physician for PFT and noninvasive pulmonary function test Discharge Orders/Prescriptions Prescriptions: New nicotine 21 mg/24 hr Patch 24 Hour 21 mg transdermal DAILY 28 Days Qty: 28 0RF guaifenesin [Mucus Relief ER] 1,200 mg Tablet Extended Release 12hr 1,200 mg PO BID 7 Days Qty: 14 0RF benzonatate 200 mg capsule 200 mg PO TID PRN (Reason: cough) Qty: 30 0RF prednisone 10 mg tablet 10 mg PO DAILY Qty: 30 0RF Rx Instructions: 40 mg for 3 days 30 mg for 3 days, 20 mg for 3 days,and 10 mg for 3 days Continued topiramate [Topamax] 25 MG tablet 25 mg PO QHS Patient Comments: seizures fluoxetine 20 MG capsule 20 mg PO QHS Patient Comments: depression trazodone 100 MG tablet 200 mg PO QHS Patient Comments: depression Pulmicort Flexhaler 1 PUFF inhaler 1 puff inhalation BID Qty: 1 0RF Patient Comments: shortness of breath albuterol sulfate [ProAir HFA] 1 PUFF inhaler 2 puff inhalation Q4H PRN PRN (Reason: Sob &/Or Wheezing) Qty: 1 0RF Patient Comments: shortness of breath Referrals / Follow Up: Leonid Rice MD [Primary Care Provider] - Within 2 Weeks Cole Silva DO [Med Staff - Active Staff] - Within 2 Weeks Disposition Disposition (needs filled in before D/C Order can be placed): Home, Self Care 08/28/24 1248<Electronically signed by Alcon Cr MD>Alcon Cr MD CC: Dr. Modesta Caro DO; Dr. Leonid Rice MD ~ Signed [facility] Work Phone: [phone]) 513-483506-18-2025 Discharge summary [facility] Medical Records Department [address] [place] [address] Instructions for Home/Discharge Instructions 08/28/24 1140 MR#: [id number] Acct: [id number] Name: JENNIFER RAMIREZ Rep #:[id number] : 1960 63 From: Alcon Stephens PCP: Dr. Leonid Rice MD Status:A DM SO Discharge Instructions Diet Discharge Diet: Low fat / Low cholesterol and 2000 mg Sodium Diet DC O2, CPAP, BIPAP needs Home O2 Discharge instructions: No Dressing / Incision Discharge Activity: Return to Normal Activity Weight Bearing Status: Weight bearing as tolerated Dressing / Incision Call your doctor if you observe: Fever of 101 or Higher, Coldness, Increased Pain, Numbness or Tingling, Change in Color, Inability to urinate, Inability to have a bowel movement, Shortness of breath, Dizziness, Fainting spells, Swellingin the ankles, Chest pain, Prolonged hiccupping, Increased palpitations (irregular heartbeat) and Calf discomfort Follow Up Care When: IN 2 WEEKS Test Results: Test results from this visit will be discussed in further detail at your follow- up appointment, if applicable. Discharge Plan Admission Admit Date/Time: 08/25/24 20:53 Primary Reason for Your Visit: copd exacerbation Attending Provider: Alcon Cr Primary Care Provider: Leonid Rice Consulting Providers: Modesta Caro Instructions Additional Instructions / Restrictions: Patient needs to follow-up with the genetics physician for PFT and noninvasive pulmonary function test Discharge Orders/Prescriptions Prescriptions: New nicotine 21 mg/24 hr Patch 24 Hour 21 mg transdermal DAILY 28 Days Qty: 28 0RF guaifenesin [Mucus Relief ER] 1,200 mg Tablet Extended Release 12hr 1,200 mg PO BID 7 Days Qty: 14 0RF benzonatate 200 mg capsule 200 mg PO TID PRN (Reason: cough) Qty: 30 0RF prednisone 10 mg tablet 10 mg PO DAILY Qty: 30 0RF Rx Instructions: 40 mg for 3 days 30 mg for 3 days, 20 mg for 3 days,and 10 mg for 3 days Continued topiramate [Topamax] 25 MG tablet 25 mg PO QHS Patient Comments: seizures fluoxetine 20 MG capsule 20 mg PO QHS Patient Comments: depression trazodone 100 MG tablet 200 mg PO QHS Patient Comments: depression Pulmicort Flexhaler 1 PUFF inhaler 1 puff inhalation BID Qty: 1 0RF Patient Comments: shortness of breath albuterol sulfate [ProAir HFA] 1 PUFF inhaler 2 puff inhalation Q4H PRN PRN (Reason: Sob &/Or Wheezing) Qty: 1 0RF Patient Comments: shortness of breath Referrals / Follow Up: Leonid Rice MD [Primary Care Provider] - Within 2 Weeks Cole Silva DO [Med Staff - Active Staff] - Within 2 Weeks Disposition Disposition (needs filled in before D/C Order can be placed): Home, Self Care 08/28/24 1248Alcon Cr MD CC: Dr. Modesta Caro DO; Dr. Leonid Rice MD ~ Signed [facility]06-17-2025 Progress note Author Alcon Cr [facility] Note Date/Time August 27, 2024 2:51 pm [facility] Medical Records Department [address] [place] [address] Progress Note - Hospitalist 08/27/24 1448 MR#: [id number] Acct: [id number] Name: EMILY MCMULLENJENNIFER Rep #:[id number] : 1960 63 From: Alcon Stephens PCP: Dr. Leonid Rice MD Status:A DM SO Location: [place] [address] Reason for Visit Reason for Visit: Diagnoses Viral pneumonia, unspecified (08/25/24) Chronic obstructive pulmonary disease with (acute) exacerbation (08/25/24) Dyspnea, unspecified (08/25/24) Tachypnea, not elsewhere classified (08/25/24) Tobacco use (08/25/24) Objective Data Objective Data Vital Signs: Vital Signs Temp Pulse Resp BP Pulse Ox O2 Del Method O2 Flow Rate 97.7 F L 84 18 130/67 H 95 Room Air 1 08/27/24 14:25 08/27/24 14:25 08/27/24 14:25 08/27/24 14:25 08/27/24 14:25 08/27/24 14:25 08/26/24 14:04 Oxygen Flow Rate (L/min) 1 Oxygen Delivery Method Room Air Weight: 208 lb 8.917 oz Body Mass Index (BMI) 40.9 Lab / Micro Data 08/26/24 05:16 08/26/24 05:16 Micro: Microbiology 08/26/24 21:00 Sputum, Expectorated/Coughed Gram Stain - Final 08/25/24 20:48 Mucosa - Nasopharyngeal Respiratory Panel (PCR) - Final 08/25/24 17:48 Mucosa - Nose SARS-CoV-2, Influenza & RSV (PCR) - Final Physical Exam Narrative Seen and examined. Shortness of breath is better. Still has mild cough and chest congestion and wheezing. Physical exam General: Alert, Oriented x3, Cooperative. Obesity grade 3 BMI 40.6 kg/m? HEENT: Atraumatic, PERRLA, EOMI, Normocephalic. Oral: No Gingival or Mucosal Lesions/ Ulcerations Neck: Supple, No JVD, Negative Carotid Bruits Chest wall/Lungs: Air entry severely diminished in all lung hernandez. Bilateral coarse wheezing and rhonchi, better than yesterday. Cardiovascular: Regular rate and rhythm, Normal S1,S2, No M/G/R Abdomen: Bowel Sounds Present, Soft, Non Tender, Non-Distended : No dysuria. No renal angle tenderness. No suprapubic tenderness. Extremities: No edema, Capillary Refill Less than 3 Seconds Skin: No rashes, No breakdown Musculoskeletal: No Tenderness to Palpation of Joints or Extremities Neurological: Cranial nerves II-XII grossly intact, DTR 2+/4. No acute focal neurological deficit. Psych/Mental Status: Normal Affect, Appropriate. Assessment & Plan Assessment/Plan (1) Acute dyspnea: (2) Viral pneumonia: (3) Tachypnea: (4) Tobacco abuse: (5) COPD with acute exacerbation: PLAN: Plan Patient is 63-year-old female admitted for shortness of breath chest congestion/tightness and wheezing for last couple days. Denies fever. Consistent with COPD exacerbation She stated she is short of breath, wheezing for last couple days getting worse. She has cough which is predominantly dry but sometimes brings phlegm and congestion. Acute dyspnea due to COPD exacerbation 2/2 Viral Pneumonia: Patient is being admitted on MedSurg floor. Patient is being managed on scheduled bronchodilator, IV Solu-Medrol, Mucinex, incentive spirometry and Pep. - Patient not hypoxic and requiring oxygen at this point but is markedly tachypneic and having considerable wheezing therefore will admit as observation -Imaging is relatively unremarkable. CT head no acute process. Triple PCR is negative. Respiratory panel negative. LDL 08/27: Dyspnea has improved. Wheezing and chest congestion is also improving. On benzonatate and Mucinex. Continue above treatment. Pulse ox 95% on room air. COPD - Patient is not oxygen dependent at baseline. Currently she not following neurologist - Recommend outpatient follow-up with pulmonary medicine - Patient would benefit from outpatient PFTs and 6-minute walk test GERD - Patient is currently not on any medication for acid reflux next-monitor for symptoms specially with steroid use Seizures -continue topamax Depression/anxiety - Continue home fluoxetine - Continue home trazodone next-continue as needed Xanax Morbid obesity - Recommend weight loss - Will monitor nocturnal pulse ox secondary to concern the patient may have obstructive sleep apnea baseline - BMI is 41.1 - Complicates treatment, prognosis, outcomes Tobacco abuse - Nicotine replacement therapy 21 mcg patch - Recommend cessation DVT prophylaxis - Subcu Lovenox 40 twice daily due to BMI greater than 40 CODE STATUS - Full code as verified prior to admission Charges/Coding Visit Charges Inpatient E&M: 46140 Subs Hosp L2 08/27/24 9452 <Electronically signed by Alcon Cr MD> Cosigner Signature (if applicable): CC: ~ Signed [facility] Work Phone: [phone] 443-742906-17-2025 Progress note [facility] Medical Records Department [address] [place] [address] Progress Note - Hospitalist 08/27/24 0445 MR#: [id number] Acct: [id number] Name: JENNIFER RAMIREZ Rep #:[id number] : 1960 63 From: Alcon Stephens PCP: Dr. Leonid Rice MD Status:A DM SO Location: [place] [address]-1 Reason for Visit Reason for Visit: Diagnoses Viral pneumonia, unspecified (08/25/24) Chronic obstructive pulmonary disease with (acute) exacerbation (08/25/24) Dyspnea, unspecified (08/25/24) Tachypnea, not elsewhere classified (08/25/24) Tobacco use (08/25/24) Objective Data Objective Data Vital Signs: Vital Signs Temp Pulse Resp BP Pulse Ox O2 Del Method O2 Flow Rate 97.7 F L 84 18 130/67 H 95 Room Air 1 08/27/24 14:25 08/27/24 14:25 08/27/24 14:25 08/27/24 14:25 08/27/24 14:25 08/27/24 14:25 08/26/24 14:04 Oxygen Flow Rate (L/min) 1 Oxygen Delivery Method Room Air Weight: 208 lb 8.917 oz Body Mass Index (BMI) 40.9 Lab / Micro Data 08/26/24 05:16 08/26/24 05:16 Micro: Microbiology 08/26/24 21:00 Sputum, Expectorated/Coughed Gram Stain - Final 08/25/24 20:48 Mucosa - Nasopharyngeal Respiratory Panel (PCR) - Final 08/25/24 17:48 Mucosa - Nose SARS-CoV-2, Influenza & RSV (PCR) - Final Physical Exam Narrative Seen and examined. Shortness of breath is better. Still has mild cough and chest congestion and wheezing. Physical exam General: Alert, Oriented x3, Cooperative. Obesity grade 3 BMI 40.6 kg/m? HEENT: Atraumatic, PERRLA, EOMI, Normocephalic. Oral: No Gingival or Mucosal Lesions/ Ulcerations Neck: Supple, No JVD, Negative Carotid Bruits Chest wall/Lungs: Air entry severely diminished in all lung hernandez. Bilateral coarse wheezing and rhonchi, better than yesterday. Cardiovascular: Regular rate and rhythm, Normal S1,S2, No M/G/R Abdomen: Bowel Sounds Present, Soft, Non Tender, Non-Distended : No dysuria. No renal angle tenderness. No suprapubic tenderness. Extremities: No edema, Capillary Refill Less than 3 Seconds Skin: No rashes, No breakdown Musculoskeletal: No Tenderness to Palpation of Joints or Extremities Neurological: Cranial nerves II-XII grossly intact, DTR 2+/4. No acute focal neurological deficit. Psych/Mental Status: Normal Affect, Appropriate. Assessment & Plan Assessment/Plan (1) Acute dyspnea: (2) Viral pneumonia: (3) Tachypnea: (4) Tobacco abuse: (5) COPD with acute exacerbation: PLAN: Plan Patient is 63-year-old female admitted for shortness of breath chest congestion/tightness and wheezing for last couple days. Denies fever. Consistent with COPD exacerbation She stated she is short of breath, wheezing for last couple days getting worse. She has cough whichis predominantly dry but sometimes brings phlegm and congestion. Acute dyspnea due to COPD exacerbation 2/2 Viral Pneumonia: Patient is being admitted on MedSurg floor. Patient is being managed on scheduled bronchodilator, IV Solu-Medrol, Mucinex, incentive spirometry and Pep. - Patient not hypoxic and requiring oxygen at this point but is markedly tachypneic and having considerable wheezing therefore will admit as observation -Imaging is relatively unremarkable. CT head no acute process. Triple PCR is negative. Respiratory panel negative. LDL 08/27: Dyspnea has improved. Wheezing and chest congestion is also improving. On benzonatate and Mucinex. Continue above treatment. Pulse ox 95% on room air. COPD - Patient is not oxygen dependent at baseline. Currently she not following neurologist - Recommend outpatient follow-up with pulmonary medicine - Patient would benefit from outpatient PFTs and 6-minute walk test GERD - Patient is currently not on any medication for acid reflux next-monitor for symptoms specially with steroid use Seizures -continue topamax Depression/anxiety - Continue home fluoxetine - Continue home trazodone next-continue as needed Xanax Morbid obesity - Recommend weight loss - Will monitor nocturnal pulse ox secondary to concern the patient may have obstructive sleep apneabaseline - BMI is 41.1 - Complicates treatment, prognosis, outcomes Tobacco abuse - Nicotine replacement therapy 21 mcg patch - Recommend cessation DVT prophylaxis - Subcu Lovenox 40 twice daily due to BMI greater than 40 CODE STATUS - Full code as verified prior to admission Charges/Coding Visit Charges Inpatient E&M: 05221 Subs Hosp L2 08/27/24 1451 Cosigner Signature (if applicable): CC: ~ Signed [facility]06-16-2025 Progress note Author Alcon Cr [facility] Note Date/Time August 26, 2024 4:28 pm [facility] Medical Records Department [address] [place] [address] Progress Note - Hospitalist 08/26/24 1131 MR#: [id number] Acct: [id number] Name: JENNIFER RAMIREZ Rep #:[id number] : 1960 63 From: Alcon Stephens PCP: Dr. Leonid Rice MD Status:A DM SO Location: [place] [address] Reason for Visit Reason for Visit: Diagnoses Viral pneumonia, unspecified (08/25/24) Chronic obstructive pulmonary disease with (acute) exacerbation (08/25/24) Dyspnea, unspecified (08/25/24) Tachypnea, not elsewhere classified (08/25/24) Tobacco use (08/25/24) Objective Data Objective Data Vital Signs: Vital Signs Temp Pulse Resp BP Pulse Ox O2 Del Method O2 Flow Rate 97.8 F 71 18 133/58 H 98 Nasal Cannula 1 08/26/24 09:06 08/26/24 11:18 08/26/24 11:18 08/26/24 09:06 08/26/24 11:19 08/26/24 11:19 08/26/24 11:19 Oxygen Flow Rate (L/min) 1 Oxygen Delivery Method Nasal Cannula Weight: 208 lb 1.862 oz Body Mass Index (BMI) 40.8 Lab / Micro Data 08/26/24 05:16 08/26/24 05:16 Labs: Laboratory Results - last 24 hr 08/25/24 15:53: WBC 8.9, RBC 4.93, Hgb 14.4, Hct 44.2, MCV 89.7, MCH 29.2, MCHC 32.6, RDW Std Deviation 43.5, RDW Coeff of Bhupendra 13.2, Plt Count 223, MPV 11.8, Immature Gran % (Auto) 0.500, Neut % (Auto) 57.1, Lymph % (Auto) 27.7, Todd % (Auto) 10.7 H, Eos % (Auto) 3.5, Baso % (Auto) 0.5, Absolute Neuts (auto) 5.1, Absolute Lymphs (auto) 2.45, Nucleated RBC % 0, Sodium 142, Potassium 3.8, Chloride 106, Carbon Dioxide 22.2, Anion Gap 13, BUN 10, Creatinine 0.83, Estim Creat Clear Calc 73.59, Est GFR (MDRD) Non-Af 80, BUN/Creatinine Ratio 12.6, Glucose 107 H, Calcium 9.4, Total Bilirubin 0.34, Direct Bilirubin 0.10, AST 25, ALT 16, Alkaline Phosphatase 148 H, Total Protein 7.3, Albumin 4.0, Globulin 3.3, Lipase 8 L 08/26/24 05:16: WBC 7.6, RBC 4.79, Hgb 13.9, Hct 41.7, MCV 87.1, MCH 29.0, MCHC 33.3, RDW Std Deviation 41.5, RDW Coeff of Bhupendra 13.1, Plt Count 204, MPV 11.3, Immature Gran % (Auto) 0.900, Neut % (Auto) 82.5 H, Lymph % (Auto) 15.4 L, Todd % (Auto) 1.1, Eos % (Auto) 0.0, Baso % (Auto) 0.1, Absolute Neuts (auto) 6.3, Absolute Lymphs (auto) 1.17, Nucleated RBC % 0, Sodium 139, Potassium 3.7, Chloride 104, Carbon Dioxide 23.6, Anion Gap 11, BUN 10, Creatinine 0.78, Estim Creat Clear Calc 77.79, Est GFR (MDRD) Non-Af 86, BUN/Creatinine Ratio 12.7, Glucose 256 H, Calcium 9.2, Phosphorus 3.4, Magnesium 2.2, Total Bilirubin 0.27, AST 18, ALT 16, Alkaline Phosphatase 138 H, Total Protein 7.0, Albumin 3.8, Globulin 3.1, Albumin/Globulin Ratio 1.2 Micro: Microbiology 08/25/24 20:48 Mucosa - Nasopharyngeal Respiratory Panel (PCR) - Final 08/25/24 17:48 Mucosa - Nose SARS-CoV-2, Influenza & RSV (PCR) - Final Radiography Diagnostic Testing: Radiology Impression Chest X-Ray 08/25/24 16:55 IMPRESSION: Mild pulmonary vascular congestion. No focal consolidations. Reading Location: [id number] Chest CTA 08/25/24 17:40 IMPRESSION: No acute process. Reading Location: [facility] Physical Exam Narrative Seen and examined. History taken from the patient and her daughter who is bilingual. Patient is mainly Senegalese-speaking. She stated she is short of breath, wheezing for last couple days getting worse. She has cough which is predominantly dry but sometimes brings phlegm and congestion. Physical exam General: Alert, Oriented x3, Cooperative. Obesity grade 3 BMI 40.6 kg/m? HEENT: Atraumatic, PERRLA, EOMI, Normocephalic. Oral: No Gingival or Mucosal Lesions/ Ulcerations Neck: Supple, No JVD, Negative Carotid Bruits Chest wall/Lungs: Air entry severely diminished in all lung hernandez. Bilateral coarse wheezing and rhonchi. Cardiovascular: Regular rate and rhythm, Normal S1,S2, No M/G/R Abdomen: Bowel Sounds Present, Soft, Non Tender, Non-Distended : No dysuria. No renal angle tenderness. No suprapubic tenderness. Extremities: No edema, Capillary Refill Less than 3 Seconds Skin: No rashes, No breakdown Musculoskeletal: No Tenderness to Palpation of Joints or Extremities Neurological: Cranial nerves II-XII grossly intact, DTR 2+/4. No acute focal neurological deficit. Psych/Mental Status: Normal Affect, Appropriate. Assessment & Plan Assessment/Plan (1) Acute dyspnea: (2) Viral pneumonia: (3) Tachypnea: (4) Tobacco abuse: (5) COPD with acute exacerbation: PLAN: Plan Patient is 63-year-old female admitted for shortness of breath chest congestion/tightness and wheezing for last couple days. Denies fever. Consistent with COPD exacerbation Acute dyspnea due to COPD exacerbation 2/2 Viral Pneumonia: Patient is being admitted on MedSurg floor. Patient is being managed on scheduled bronchodilator, IV Solu-Medrol, Mucinex, incentive spirometry and Pep. - Patient not hypoxic and requiring oxygen at this point but is markedly tachypneic and having considerable wheezing therefore will admit as observation -Imaging is relatively unremarkable. CT head no acute process. Triple PCR is negative. Respiratory panel negative. LDL COPD - Patient is not oxygen dependent at baseline. Currently she not following neurologist - Recommend outpatient follow-up with pulmonary medicine - Patient would benefit from outpatient PFTs and 6-minute walk test GERD - Patient is currently not on any medication for acid reflux next-monitor for symptoms specially with steroid use Seizures -continue topamax Depression/anxiety - Continue home fluoxetine - Continue home trazodone next-continue as needed Xanax Morbid obesity - Recommend weight loss - Will monitor nocturnal pulse ox secondary to concern the patient may have obstructive sleep apnea baseline - BMI is 41.1 - Complicates treatment, prognosis, outcomes Tobacco abuse - Nicotine replacement therapy 21 mcg patch - Recommend cessation DVT prophylaxis - Subcu Lovenox 40 twice daily due to BMI greater than 40 CODE STATUS - Full code as verified prior to admission Charges/Coding Visit Charges Inpatient E&M: 41079 Subs Hosp L2 08/26/24 1628 <Electronically signed by Alcon Cr MD> Cosigner Signature (if applicable): CC: ~ Signed [facility] Work Phone: [phone] 900-716606-16-2025 Progress note [facility] Medical Records Department [address] [place] [address] Progress Note - Hospitalist 08/26/24 1131 MR#: [id number] Acct: [id number] Name: JENNIFER RAMIREZ Rep #:[id number] : 1960 63 From: Alcon Stephens PCP: Dr. Leonid Rice MD Status:A DM [facility] Location: [place] [address] Reason for Visit Reason for Visit: Diagnoses Viral pneumonia, unspecified (08/25/24) Chronic obstructive pulmonary disease with (acute) exacerbation (08/25/24) Dyspnea, unspecified (08/25/24) Tachypnea, not elsewhere classified (08/25/24) Tobacco use (08/25/24) Objective Data Objective Data Vital Signs: Vital Signs Temp Pulse Resp BP Pulse Ox O2 Del Method O2 Flow Rate 97.8 F 71 18 133/58 H 98 Nasal Cannula 1 08/26/24 09:06 08/26/24 11:18 08/26/24 11:18 08/26/24 09:06 08/26/24 11:19 08/26/24 11:19 08/26/24 11:19 Oxygen Flow Rate (L/min) 1 Oxygen Delivery Method Nasal Cannula Weight: 208 lb 1.862 oz Body Mass Index (BMI) 40.8 Lab / Micro Data 08/26/24 05:16 08/26/24 05:16 Labs: Laboratory Results - last 24 hr 08/25/24 15:53: WBC 8.9, RBC 4.93, Hgb 14.4, Hct 44.2, MCV 89.7, MCH 29.2, MCHC 32.6, RDW Std Deviation 43.5, RDW Coeff of Bhupendra 13.2, Plt Count 223, MPV 11.8, Immature Gran % (Auto) 0.500, Neut % (Auto) 57.1, Lymph % (Auto) 27.7, Todd % (Auto) 10.7 H, Eos % (Auto) 3.5, Baso % (Auto) 0.5, Absolute Neuts (auto) 5.1, Absolute Lymphs (auto) 2.45, Nucleated RBC % 0, Sodium 142, Potassium 3.8, Chloride 106, Carbon Dioxide 22.2, Anion Gap 13, BUN 10, Creatinine 0.83, Estim Creat Clear Calc 73.59, Est GFR (MDRD) Non-Af 80, BUN/Creatinine Ratio 12.6, Glucose 107 H, Calcium 9.4, Total Bilirubin 0.34, Direct Bilirubin 0.10, AST 25, ALT 16, Alkaline Phosphatase 148 H, Total Protein 7.3, Albumin 4.0, Globulin 3.3, Lipase 8 L 08/26/24 05:16: WBC 7.6, RBC 4.79, Hgb 13.9, Hct 41.7, MCV 87.1, MCH 29.0, MCHC 33.3, RDW Std Deviation 41.5, RDW Coeff of Bhupendra 13.1, Plt Count 204, MPV 11.3, Immature Gran % (Auto) 0.900, Neut % (Auto) 82.5 H, Lymph % (Auto) 15.4 L, Todd % (Auto) 1.1, Eos % (Auto) 0.0, Baso % (Auto) 0.1, Absolute Neuts (auto) 6.3, Absolute Lymphs (auto) 1.17, Nucleated RBC % 0, Sodium 139, Potassium 3.7, [id number], Carbon Dioxide 23.6, Anion Gap 11, BUN 10, Creatinine 0.78, Estim Creat Clear Calc 77.79, Est GFR (MDRD) Non-Af 86, BUN/Creatinine Ratio 12.7, Glucose 256 H, Calcium 9.2, Phosphorus 3.4, Magnesium 2.2, Total Bilirubin 0.27, AST 18, ALT 16, Alkaline Phosphatase 138 H, Total Protein 7.0, Albumin3.8, Globulin 3.1, Albumin/Globulin Ratio 1.2 Micro: Microbiology 08/25/24 20:48 Mucosa - Nasopharyngeal Respiratory Panel (PCR) - Final 08/25/24 17:48 Mucosa - Nose SARS-CoV-2, Influenza & RSV (PCR) - Final Radiography Diagnostic Testing: Radiology Impression Chest X-Ray 08/25/24 16:55 IMPRESSION: Mild pulmonary vascular congestion. No focal consolidations. Reading Location: [facility] Chest CTA 08/25/24 17:40 IMPRESSION: No acute process. Reading Location: [facility] Physical Exam Narrative Seen and examined. History taken from the patient and her daughter who is bilingual. Patient is mainly Senegalese-speaking. She stated she is short of breath, wheezing for last couple days getting worse. She has cough whichis predominantly dry but sometimes brings phlegm and congestion. Physical exam General: Alert, Oriented x3, Cooperative. Obesity grade 3 BMI 40.6 kg/m? HEENT: Atraumatic, PERRLA, EOMI, Normocephalic. Oral: No Gingival or Mucosal Lesions/ Ulcerations Neck: Supple, No JVD, Negative Carotid Bruits Chest wall/Lungs: Air entry severely diminished in all lung hernandez. Bilateral coarse wheezing and rhonchi. Cardiovascular: Regular rate and rhythm, Normal S1,S2, No M/G/R Abdomen: Bowel Sounds Present, Soft, Non Tender, Non-Distended : No dysuria. No renal angle tenderness. No suprapubic tenderness. Extremities: No edema, Capillary Refill Less than 3 Seconds Skin: No rashes, No breakdown Musculoskeletal: No Tenderness to Palpation of Joints or Extremities Neurological: Cranial nerves II-XII grossly intact, DTR 2+/4. No acute focal neurological deficit. Psych/Mental Status: Normal Affect, Appropriate. Assessment & Plan Assessment/Plan (1) Acute dyspnea: (2) Viral pneumonia: (3) Tachypnea: (4) Tobacco abuse: (5) COPD with acute exacerbation: PLAN: Plan Patient is 63-year-old female admitted for shortness of breath chest congestion/tightness and wheezing for last couple days. Denies fever. Consistent with COPD exacerbation Acute dyspnea due to COPD exacerbation 2/2 Viral Pneumonia: Patient is being admitted on MedSurg floor. Patient is being managed on scheduled bronchodilator, IV Solu-Medrol, Mucinex, incentive spirometry and Pep. - Patient not hypoxic and requiring oxygen at this point but is markedly tachypneic and having considerable wheezing therefore will admit as observation -Imaging is relatively unremarkable. CT head no acute process. Triple PCR is negative. Respiratory panel negative. LDL COPD - Patient is not oxygen dependent at baseline. Currently she not following neurologist - Recommend outpatient follow-up with pulmonary medicine - Patient would benefit from outpatient PFTs and 6-minute walk test GERD - Patient is currently not on any medication for acid reflux next-monitor for symptoms specially with steroid use Seizures -continue topamax Depression/anxiety - Continue home fluoxetine - Continue home trazodone next-continue as needed Xanax Morbid obesity - Recommend weight loss - Will monitor nocturnal pulse ox secondary to concern the patient may have obstructive sleep apneabaseline - BMI is 41.1 - Complicates treatment, prognosis, outcomes Tobacco abuse - Nicotine replacement therapy 21 mcg patch - Recommend cessation DVT prophylaxis - Subcu Lovenox 40 twice daily due to BMI greater than 40 CODE STATUS - Full code as verified prior to admission Charges/Coding Visit Charges Inpatient E&M: 53225 Subs Hosp L2 08/26/24 1628 Cosigner Signature (if applicable): CC: ~ Signed [facility]06-16-2025 Discharge summary Author Zachery Jesus [facility] Note Date/Time August 26, 2024 12:1 3am [facility] Medical Records Department [address] [address] Emergency Department Summary 08/25/24 MR#: [id number] Acct: [id number] Name: JENNIFER RAMIREZ Rep #:[id number] : 1960 63 From: Zachery Saavedra PCP: Dr. Leonid Rice MD Status:A DM SO Location: [facility] [id number] HPI History of Present Illness Chief Complaint: Abd Pain Informant: patient Narrative Narrative: 63-year-old female presenting to the emergency room with chief complaint of shortness of breath. Patient states she has a history of asthma. She states she is not currently on any medications. She states that her father and then her brother was found in the home. She had to travel to [place] where she has been taking care of family affairs and the . She states that for the past week she has had a progressive worsening shortness of breath and intermittent fevers cough with occasional sputum production. She also notesan epigastric discomfort particularly with eating. She states that the hot weather in [place] does not agree with her health. She returned home today and came to the emergency department. She does not wear supplemental oxygen at home. She denies history of coronary artery disease or congestive heart failure. She is a smoker. [facility] Medical History Tobacco abuse GERD (gastroesophageal reflux disease) Asthma Depression Anxiety Home Medications ?Medication ?Instructions ?Recorded ?Last Taken ?Type fluoxetine 20 mg capsule 20 mg PO QHS 03/24/15 History topiramate 25 mg tablet (Topamax) 25 mg PO QHS 6 03/23/15 History trazodone 100 mg tablet 200 mg PO QHS 03/24/1503/23 History albuterol sulfate 90 mcg/actuation 2 puff inhalation Q 4H PRN PRN Sob 03/25/15 Unknown Rx aerosol inhaler (ProAir HFA) &/Or Wheezing ##1 budesonide 180 mcg/actuation 1 puff inhalation BID ##1 03/25/15 Unknown Rx breath activated powder inhaler (Pulmicort Flexhaler) Allergy/AdvReac Type Severity Reaction Status Date / Time latex Allergy Rash Verified 08/25/24 15:40 chocolate AdvReac Shortness Verified 08/25/24 22:52 of breath Family History Mother Myocardial infarction CVA (cerebral vascular accident) Diabetes Brother Asthma Myocardial infarction Father Hypertension Surgical History History of umbilical hernia repair History of cholecystectomy History of appendectomy Social History household members: none housing: house Smoking Status: Current every day smoker tobacco type: cigarettes alcohol intake: never what type of physical activity do you participate in: none do you feel safe at home: Yes ROS ROS ED Constitutional Constitutional ED: Reports chills and fever(s); Denies sweats or weight loss Eyes Eyes: Denies change in vision or diplopia ENT ENT ED: Denies ear pain, rhinorrhea or sore throat Cardiovascular Cardiovascular: Denies chest pain, orthopnea, palpitations or racing heartbeat Respiratory/Chest Respiratory/Chest: Reports cough, dyspnea and dyspnea on exertion; Denies orthopnea Gastrointestinal Gastrointestinal: Reports abdominal pain; Denies diarrhea, nausea or vomiting Genitourinary Genitourinary ED: Denies dysuria, hematuria or urinary frequency Musculoskeletal Musculoskeletal: Denies arthralgias or myalgias Integumentary Denies abscess or rash Neurologic Neurologic: Denies headache(s) or weakness Psychiatric Psychiatric: Denies anxiety, depression, suicidal ideation or suicidal thoughts Endocrine Endocrinology: Denies polydipsia, polyphagia or polyuria Allergic/Immunologic Allergic/Immunologic ED: Denies mouth swelling, tongue swelling or urticaria EXAM Physical Exam Const Vital Signs: 08/25/24 15:37 08/25/24 15:40 08/25/24 15:55 Temperature 99.7 F H 99.7 F H Temperature Source Oral Oral Pulse Rate 100 100 Respiratory Rate 22 H 22 H Respiratory Effort Short of Breath Labored Respiratory Depth Shallow Respiratory Pattern Tachypnea Blood Pressure 149/97 H 149/97 H Blood Pressure Mean 114 114 Pulse Ox 98 98 Oxygen Delivery Method Room Air Room Air Room Air 08/25/24 16:41 08/25/24 17:00 08/25/24 17:06 Temperature 99.7 F H 99.2 F H Temperature Source Oral Oral Pulse Rate 86 87 88 Respiratory Rate 25 H 26 H 28 H Respiratory Effort Respiratory Depth Respiratory Pattern Tachypnea Blood Pressure 163/86 H 148/93 H Blood Pressure Mean 111 111 Pulse Ox 96 95 Oxygen Delivery Method Room Air Room Air 08/25/24 17:45 08/25/24 18:00 08/25/24 19:00 Temperature 99.2 F H 99.3 F H Temperature Source Oral Oral Pulse Rate 89 98 99 Respiratory Rate 16 22 H 22 H Respiratory Effort Respiratory Depth Respiratory Pattern Blood Pressure 135/79 H 152/73 H 142/56 H Blood Pressure Mean 97 99 84 Pulse Ox 94 95 96 Oxygen Delivery Method Room Air Room Air Room Air 08/25/24 19:00 08/25/24 20:29 08/25/24 20:30 Temperature 99.3 F H Temperature Source Pulse Rate 99 93 102 H Respiratory Rate 21 H 25 H 24 H Respiratory Effort Respiratory Depth Respiratory Pattern Tachypnea Blood Pressure 142/56 H 156/63 H Blood Pressure Mean 84 94 Pulse Ox 97 95 Oxygen Delivery Method Room Air Positive well nourished, well developed and obese General Appearance ED: well developed Nutritional Appearance: obese HEENT Reports normocephalic, head/scalp atraumatic and moist mucous membranes Eyes PERRL and EOMs intact bilaterally Neck no lymphadenopathy, supple and no JVD Resp Resp Narrative: Mild conversational dyspnea. Patient has inspiratory expiratory wheezing. Rhonchi at the bases. Cardio regular rate, regular rhythm and no murmurs Rate: tachycardic GI normal to inspection, nondistended, normoactive bowel sounds and non-tender Palpation: soft Back/Spine no CVA tenderness and normal ROM Extremity normal to inspection General Extremety ED: Negative for edema General Extremity: Negative for edema Neuro oriented x3 and CN's II-XII intact bilaterally Sensorium / Orientation: alert Motor Exam: strength 5/5 throughout Psych mental status grossly normal Mood & Affect: Negative for depressed or tearful Skin no rashes or lesions noted and no wounds MDM MDM MDM Narrative Medical decision making narrative: Differential diagnosis includes but not limited to asthma exacerbation pulmonaryembolism viral syndrome pneumonia pleural effusion pancreatitis biliary colic My independent interpretation of the chest x-ray is no acute process. A CTA of the chest was negative for pulmonary embolism or infiltrate. White count is 8.9hemoglobin 14.4 platelet count of 223. Lipase is 8 alkaline phosphatase 148 glucose 107. Patient received breathing treatments. She also received a dose of Solu-Medrol. Repeat examination she still looks tachypneic around 25 to 30 breaths/min. Shehowever is not hypoxic. We gave her additional DuoNeb and she continues to haveexpiratory wheezing and increased work of breathing. I spoke with the patient using shared decision making we will observe her in the hospital tonight for asthma exacerbation. Hospitalist was contacted for admission History & Record Review Discussion w/independent historian: Patient Additional record(s) reviewed:: Prior outpatient record, Prior ED visit and Prior labs Lab Data Attestation: I reviewed the patient's lab results. Labs: Laboratory Results - last 24 hr 08/25/24 15:53 WBC 8.9 RBC 4.93 Hgb 14.4 Hct 44.2 MCV 89.7 MCH 29.2 MCHC 32.6 RDW Std Deviation 43.5 RDW Coeff of Bhupendra 13.2 Plt Count 223 MPV 11.8 Immature Gran % (Auto) 0.500 Neut % (Auto) 57.1 Lymph % (Auto) 27.7 Todd % (Auto) 10.7 H Eos % (Auto) 3.5 Baso % (Auto) 0.5 Absolute Neuts (auto) 5.1 Absolute Lymphs (auto) 2.45 Nucleated RBC % 0 Sodium 142 Potassium 3.8 Chloride 106 Carbon Dioxide 22.2 Anion Gap 13 BUN 10 Creatinine 0.83 Estim Creat Clear Calc 73.59 Est GFR (MDRD) Non-Af 80 BUN/Creatinine Ratio 12.6 Glucose 107 H Calcium 9.4 Total Bilirubin 0.34 Direct Bilirubin 0.10 AST 25 ALT 16 Alkaline Phosphatase 148 H Total Protein 7.3 Albumin 4.0 Globulin 3.3 Lipase 8 L Radiography Diagnostic Testing: Clinical Impression(s) from Imaging Studies Chest X-Ray 08/25/24 16:55 IMPRESSION: Mild pulmonary vascular congestion. No focal consolidations. Reading Location: [id number] Chest CTA 08/25/24 17:40 IMPRESSION: No acute process. Reading Location: [facility] EKG Initial EKG: Attestation: I personally reviewed and interpreted this EKG as follows: Comments: Normal sinus rhythm ventricular rate of 80 bpm Management Discussion w/another healthcare provider: Hospitalist (Dr. Caro) Discharge Plan Dx/Rx/DC Orders Clinical Impression: Asthma exacerbation, Acute dyspnea Disposition Disposition: Acute Care [facility] Discharge Date/Time: 08/25/24 21:43 What to do if you have Problems For any increased pain, shortness of breath, bleeding, nausea or vomiting, chestpain, or any unexpected problems, contact your Primary Care Provider. Call [facility] ([phone]) or report to the closest Emergency Room. Call 911 if necessary. 08/26/24 0013 <Electronically signed by Zachery Jesus DO> Cosigner Signature (if applicable): CC: Dr. Leonid Rice MD ~ Signed [facility] Work Phone: [phone] Discharge summary [facility] Medical Records Department [address] [place] [address] Emergency Department Summary 08/25/24 MR#: [id number] Acct: [id number] Name: JENNIFER RAMIREZ Rep #:[id number] : 1960 63 From: Zachery Saavedra PCP: Dr. Leonid Rice MD Status:A DM SO Location: [address] History of Present Illness Chief Complaint: Abd Pain Informant: patient Narrative Narrative: 63-year-old female presenting to the emergency room with chief complaint of shortness of breath. Patient states she has a history of asthma. She states she is not currently on any medications. She states that her father and then her brother was found in the home. She had to travel to [place] where she has been taking care of family affairs and the . She states that for the past week she has had a progressive worsening shortness of breath and intermittent fevers cough with occasional sputum production. She also notesan epigastric discomfort particularly with eating. She states that the hot weather in [place] does not agree with her health. She returned home today andcame to the emergency department. She does not wear supplemental oxygen at home. She denies historyof coronary artery disease or congestive heart failure. She is a smoker. [facility] Medical History Tobacco abuse GERD (gastroesophageal reflux disease) Asthma Depression Anxiety Home Medications ?Medication ?Instructions ?Recorded ?Last Taken ?Type fluoxetine 20 mg capsule 20 mg PO QHS 03/24/15 History topiramate 25 mg tablet (Topamax) 25 mg PO QHS 6 03/23/15 History trazodone 100 mg tablet 200 mg PO QHS 03/24/1503/23 History albuterol sulfate 90 mcg/actuation 2 puff inhalation Q 4H PRN PRN Sob 03/25/15 Unknown Rx aerosol inhaler (ProAir HFA) &/Or Wheezing ##1 budesonide 180 mcg/actuation 1 puff inhalation BID ##1 03/25/15 Unknown Rx breath activated powder inhaler (Pulmicort Flexhaler) Allergy/AdvReac Type Severity Reaction Status Date / Time latex Allergy Rash Verified 08/25/24 15:40 chocolate AdvReac Shortness Verified 08/25/24 22:52 of breath Family History Mother Myocardial infarction CVA (cerebral vascular accident) Diabetes Brother Asthma Myocardial infarction Father Hypertension Surgical History History of umbilical hernia repair History of cholecystectomy History of appendectomy Social History household members: none housing: house Smoking Status: Current every day smoker tobacco type: cigarettes alcohol intake: never what type of physical activity do you participate in: none do you feel safe at home: Yes ROS ROS ED Constitutional Constitutional ED: Reports chills and fever(s); Denies sweats or weight loss Eyes Eyes: Denies change in vision or diplopia ENT ENT ED: Denies ear pain, rhinorrhea or sore throat Cardiovascular Cardiovascular: Denies chest pain, orthopnea, palpitations or racing heartbeat Respiratory/Chest Respiratory/Chest: Reports cough, dyspnea and dyspnea on exertion; Denies orthopnea Gastrointestinal Gastrointestinal: Reports abdominal pain; Denies diarrhea, nausea or vomiting Genitourinary Genitourinary ED: Denies dysuria, hematuria or urinary frequency Musculoskeletal Musculoskeletal: Denies arthralgias or myalgias Integumentary Denies abscess or rash Neurologic Neurologic: Denies headache(s) or weakness Psychiatric Psychiatric: Denies anxiety, depression, suicidal ideation or suicidal thoughts Endocrine Endocrinology: Denies polydipsia, polyphagia or polyuria Allergic/Immunologic Allergic/Immunologic ED: Denies mouth swelling, tongue swelling or urticaria EXAM Physical Exam Const Vital Signs: 08/25/24 15:37 08/25/24 15:40 08/25/24 15:55 Temperature 99.7 F H 99.7 F H Temperature Source Oral Oral Pulse Rate 100 100 Respiratory Rate 22 H 22 H Respiratory Effort Short of Breath Labored Respiratory Depth Shallow Respiratory Pattern Tachypnea Blood Pressure 149/97 H 149/97 H Blood Pressure Mean 114 114 Pulse Ox 98 98 Oxygen Delivery Method Room Air Room Air Room Air 08/25/24 16:41 08/25/24 17:00 08/25/24 17:06 Temperature 99.7 F H 99.2 F H Temperature Source Oral Oral Pulse Rate 86 87 88 Respiratory Rate 25 H 26 H 28 H Respiratory Effort Respiratory Depth Respiratory Pattern Tachypnea Blood Pressure 163/86 H 148/93 H Blood Pressure Mean 111 111 Pulse Ox 96 95 Oxygen Delivery Method Room Air Room Air 08/25/24 17:45 08/25/24 18:00 08/25/24 19:00 Temperature 99.2 F H 99.3 F H Temperature Source Oral Oral Pulse Rate 89 98 99 Respiratory Rate 16 22 H 22 H Respiratory Effort Respiratory Depth Respiratory Pattern Blood Pressure 135/79 H 152/73 H 142/56 H Blood Pressure Mean 97 99 84 Pulse Ox 94 95 96 Oxygen Delivery Method Room Air Room Air Room Air 08/25/24 19:00 08/25/24 20:29 08/25/24 20:30 Temperature 99.3 F H Temperature Source Pulse Rate 99 93 102 H Respiratory Rate 21 H 25 H 24 H Respiratory Effort Respiratory Depth Respiratory Pattern Tachypnea Blood Pressure 142/56 H 156/63 H Blood Pressure Mean 84 94 Pulse Ox 97 95 Oxygen Delivery Method Room Air Positive well nourished, well developed and obese General Appearance ED: well developed Nutritional Appearance: obese HEENT Reports normocephalic, head/scalp atraumatic and moist mucous membranes Eyes PERRL and EOMs intact bilaterally Neck no lymphadenopathy, supple and no JVD Resp Resp Narrative: Mild conversational dyspnea. Patient has inspiratory expiratory wheezing. Rhonchi at the bases. Cardio regular rate, regular rhythm and no murmurs Rate: tachycardic GI normal to inspection, nondistended, normoactive bowel sounds and non-tender Palpation: soft Back/Spine no CVA tenderness and normal ROM Extremity normal to inspection General Extremety ED: Negative for edema General Extremity: Negative for edema Neuro oriented x3 and CN's II-XII intact bilaterally Sensorium / Orientation: alert Motor Exam: strength 5/5 throughout Psych mental status grossly normal Mood & Affect: Negative for depressed or tearful Skin no rashes or lesions noted and no wounds MDM MDM MDM Narrative Medical decision making narrative: Differential diagnosis includes but not limited to asthma exacerbation pulmonaryembolism viral syndrome pneumonia pleural effusion pancreatitis biliary colic My independent interpretation of the chest x-ray is no acute process. A CTA of the chest was negative for pulmonary embolism or infiltrate. White count is 8.9hemoglobin 14.4 platelet count of 223. Lipase is 8 alkaline phosphatase 148 glucose 107. Patient received breathing treatments. She also received a dose of Solu-Medrol. Repeat examination she still looks tachypneic around 25 to 30 breaths/min. Shehowever is not hypoxic. We gave her additional DuoNeb and she continues to haveexpiratory wheezing and increased work of breathing. I spoke with the patient using shared decision making we will observe her in the hospital [facility] for asthma exacerbation. Hospitalist was contacted for admission History & Record Review Discussion w/independent historian: Patient Additional record(s) reviewed:: Prior outpatient record, Prior ED visit and Prior labs Lab Data Attestation: I reviewed the patient's lab results. Labs: Laboratory Results - last 24 hr 08/25/24 15:53 WBC 8.9 RBC 4.93 Hgb 14.4 Hct 44.2 MCV 89.7 MCH 29.2 MCHC 32.6 RDW Std Deviation 43.5 RDW Coeff of Bhupendra 13.2 Plt Count 223 MPV 11.8 Immature Gran % (Auto) 0.500 Neut % (Auto) 57.1 Lymph % (Auto) 27.7 Todd % (Auto) 10.7 H Eos % (Auto) 3.5 Baso % (Auto) 0.5 Absolute Neuts (auto) 5.1 Absolute Lymphs (auto) 2.45 Nucleated RBC % 0 Sodium 142 Potassium 3.8 Chloride 106 Carbon Dioxide 22.2 Anion Gap 13 BUN 10 Creatinine 0.83 Estim Creat Clear Calc 73.59 Est GFR (MDRD) Non-Af 80 BUN/Creatinine Ratio 12.6 Glucose 107 H Calcium 9.4 Total Bilirubin 0.34 Direct Bilirubin 0.10 AST 25 ALT 16 Alkaline Phosphatase 148 H Total Protein 7.3 Albumin 4.0 Globulin 3.3 Lipase 8 L Radiography Diagnostic Testing: Clinical Impression(s) from Imaging Studies Chest X-Ray 08/25/24 16:55 IMPRESSION: Mild pulmonary vascular congestion. No focal consolidations. Reading Location: [facility] Chest CTA 08/25/24 17:40 IMPRESSION: No acute process. Reading [facility] Initial EKG: Attestation: I personally reviewed and interpreted this EKG as follows: Comments: Normal sinus rhythm ventricular rate of 80 bpm Management Discussion w/another healthcare provider: Hospitalist (Dr. Caro) Discharge Plan Dx/Rx/DC Orders Clinical Impression: Asthma exacerbation, Acute dyspnea Disposition Disposition: Acute Care Hospital [facility] Discharge Date/Time: 08/25/24 21:43 What to do if you have Problems For any increased pain, shortness of breath, bleeding, nausea or vomiting, chestpain, or any unexpected problems, contact your Primary Care Provider. Call [facility] ([phone]) or report tothe closest Emergency Room. Call 911 if necessary. 08/26/24 0013 Cosigner Signature (if applicable): CC: Dr. Leonid Rice MD ~ Signed [facility]06-15-2025 History and physical note Author Modesta Caro [facility] Note Date/Time August 25, 2024 9:34 pm [facility] Medical Records Department [address] [place] [address] H&P Exam - Hospitalist 08/25/242031 MR#: [id number] Acct: [id number] Name: JENNIFER RAMIREZ Rep #:[id number] : 1960 63 From: Modesta Caro DO PCP: Dr. Leonid Rice MD Status:A DM SO Location: [id number] HPI - General General Date of Admission: 08/25/24 Date of Service: 08/25/24 Chief Complaint: Cough and shortness of breath HPI Narrative JENNIFER MCMULLEN, is a 63 F who presented to the emergency department at [facility] on 08/25/2024 due to chief complaint of cough and shortness of breath. Patient has a history of COPD and asthma and currently still smokes tobacco. She states her father and then her brother was founddead in his home. She has been traveling back and forth from [place] takingcare of family affairs and the . She reported that for about a week prior to presentation she has had progressively worsening shortness of breath and intermittent fevers, cough, and intermittent clear sputum production. Giventhe fact that she has not been clinically improving she came to the emergency department. She does not wear oxygen at baseline but is on multiple inhalers consistent with COPD diagnosis. Patient states she is still having some congestion, decreased p.o. intake due to lack of appetite, and myalgias. Vital signs on presentation showed a temperature of 99.7, heart rate was 100, respiratory rate was 22, blood pressure was 149/97 and pulse ox is 98% on room air. CBC is unremarkable other than a monocytosis at 10.7%. Chemistry panel isunremarkable. Lipase is negative at 8. Chest x-ray showed mild pulmonary vascular congestion but no focal infiltrates and CTA of the chest was performed and shows no acute processes. She was given several rounds of nebulizers and IV Solu-Medrol in the emergency department however she remained tachypneic, mildly tachycardic, and dyspneic. She did not require oxygen at rest or with exertion but given her symptoms she will be admitted as observation with anticipated hospitalization less than 2 midnights. [facility] Medical History Tobacco abuse GERD (gastroesophageal reflux disease) Asthma Depression Anxiety Home Medications ?Medication ?Instructions ?Recorded ?Last Taken ?Type fluoxetine 20 mg capsule 20 mg PO QHS 03/24/15 History topiramate 25 mg tablet (Topamax) 25 mg PO QHS 6 03/23/15 History trazodone 100 mg tablet 200 mg PO QHS 03/24/1503/23 History albuterol sulfate 90 mcg/actuation 2 puff inhalation Q 4H PRN PRN Sob 03/25/15 Unknown Rx aerosol inhaler (ProAir HFA) &/Or Wheezing ##1 budesonide 180 mcg/actuation 1 puff inhalation BID ##1 03/25/15 Unknown Rx breath activated powder inhaler (Pulmicort Flexhaler) Allergy/AdvReac Type Severity Reaction Status Date / Time latex Allergy Rash Verified 08/25/24 15:40 Family History Mother Myocardial infarction CVA (cerebral vascular accident) Diabetes Brother Asthma Myocardial infarction Father Hypertension Surgical History History of umbilical hernia repair History of cholecystectomy History of appendectomy Social History household members: none housing: house Smoking Status: Current every day smoker tobacco type: cigarettes alcohol intake: never what type of physical activity do you participate in: none do you feel safe at home: Yes ROS Constitutional Constitutional: Reports anorexia, chills, fatigue and malaise; Denies change in weight, fever(s), night sweats, weakness or other Eyes Eyes: Reports other Details: Eye redness ; Denies blurry vision, change in eye color, change in vision, discharge from eye(s), double vision, erythema, eye pain or loss of vision ENT HEENT: Reports nasal congestion; Denies abnormal hearing, dysphagia, ear pain, epistaxis, headache(s), hearing loss, nasal discharge, post nasal drip, sinus pressure, sore throat or other Cardiovascular Cardiovascular: Reports dyspnea on exertion; Denies chest pain, claudication, edema, lightheadedness, orthopnea, palpitations, paroxysmal nocturnal dyspnea, rapid heart rate, syncope or other Respiratory/Chest Respiratory/Chest: Reports cough, dyspnea, shortness of breath at rest, shortness of breath with exertion and wheezing; Denies excessive phlegm production, hemoptysis, productive cough or other Gastrointestinal Gastrointestinal: Denies abdominal pain, coffee ground emesis, constipation, diarrhea, dyspepsia, hematemesis, hematochezia, loose stools, melena, nausea, vomiting or other Genitourinary Genitourinary: Denies burning urination, difficulty urinating, dysuria, hematuria, nocturia, urinary frequency, urinary hesitancy, urinary incontinence,urinary urgency or other Musculoskeletal Musculoskeletal: Reports myalgias; Denies arthralgias, back pain, joint pain, joint stiffness, joint swelling, neck pain or other Neurologic Neurologic: Denies abnormal gait, abnormal speech, confusion, disequilibrium, dizziness, focal weakness, headache(s), numbness, paresthesias, seizure-like activity, seizures, syncope, tingling, tremor(s) or other Psychiatric Psychiatric: Reports anxiety and depression; Denies homicidal ideation, suicidalideation or other Endocrine Endocrinology: Denies change in body appearance, cold intolerance, excessive sweating, heat intolerance, polydipsia, polyuria or other Hematologic/Lymphatic Hematologic/Lymphatic: Denies anemia, easy bleeding, easy bruising, lymphadenopathy or other Allergic/Immunologic Allergic/Immunologic: Reports asthma; Denies rhinitis, hives, eczemia or other Vital Signs Vital Signs Vital Signs: 08/25/24 15:37 08/25/24 15:40 08/25/24 15:55 Temperature 99.7 F H 99.7 F H Temperature Source Oral Oral Pulse Rate 100 100 Respiratory Rate 22 H 22 H Respiratory Effort Short of Breath Labored Respiratory Depth Shallow Respiratory Pattern Tachypnea Blood Pressure 149/97 H 149/97 H Blood Pressure Mean 114 114 Pulse Ox 98 98 Oxygen Delivery Method Room Air Room Air Room Air 08/25/24 16:41 08/25/24 17:00 08/25/24 17:06 Temperature 99.7 F H 99.2 F H Temperature Source Oral Oral Pulse Rate 86 87 88 Respiratory Rate 25 H 26 H 28 H Respiratory Effort Respiratory Depth Respiratory Pattern Tachypnea Blood Pressure 163/86 H 148/93 H Blood Pressure Mean 111 111 Pulse Ox 96 95 Oxygen Delivery Method Room Air Room Air 08/25/24 17:45 08/25/24 18:00 08/25/24 19:00 Temperature 99.2 F H 99.3 F H Temperature Source Oral Oral Pulse Rate 89 98 99 Respiratory Rate 16 22 H 22 H Respiratory Effort Respiratory Depth Respiratory Pattern Blood Pressure 135/79 H 152/73 H 142/56 H Blood Pressure Mean 97 99 84 Pulse Ox 94 95 96 Oxygen Delivery Method Room Air Room Air Room Air 08/25/24 19:00 08/25/24 20:29 Temperature 99.3 F H Temperature Source Pulse Rate 99 93 Respiratory Rate 21 H 25 H Respiratory Effort Respiratory Depth Respiratory Pattern Blood Pressure 142/56 H 156/63 H Blood Pressure Mean 84 94 Pulse Ox 97 95 Oxygen Delivery Method Room Air Weight Weight: 95.481 kg Body Mass Index (BMI) 41.1 Physical Exam Const alert, oriented x3, no apparent distress and well nourished; Negative for average body habitus or healthy appearing Constitutional Narrative: Obese, upper middle-aged, female, lying in bed, appears comfortable, no signs of respiratory distress but she is a bit tachypneic, does not appear toxic General Appearance: cooperative HEENT normocephalic, head/scalp atraumatic, hearing grossly normal bilaterally and moist oral mucous membranes HEENT Narrative: Mallampati 3, no thrush Eyes conjunctivae normal Eyes Narrative: Injected sclera bilaterally Neck no lymphadenopathy and supple Neck Narrative: Trachea midline, neck is short and thick Resp No normal respiratory effort, no retractions, no use of accessory muscles and Noclear to auscultation bilaterally Resp Narrative: Very coarse diffuse scattered end expiratory wheezes, tachypnea with no retractions or accessory muscle use Auscultation: wheezes; Negative for crackles or rhonchi Cardio regular rhythm, S1 normal heart sound, S2 normal heart sound, no rub, no gallopsand no clicks; Negative for regular rate or no murmurs Cardio Narrative: Mild tachycardia, 3 out of 6 systolic murmur loudest at right upper sternal border GI normal to inspection, nondistended, normoactive bowel sounds, soft to palpation and non-tender GI Narrative: Protuberant abdomen Extremity no clubbing, cyanosis or edema Extremity Narrative: 2+ pedal and radial pulses Neuro oriented x3, moves all extremities and no focal motor deficits Speech: speech normal Psych Psych Narrative: Affect is flat mood seems depressed Results Lab / Micro Data 08/25/24 15:53 08/25/24 15:53 Labs: Laboratory Results - last 24 hr 08/25/24 15:53: WBC 8.9, RBC 4.93, Hgb 14.4, Hct 44.2, MCV 89.7, MCH 29.2, MCHC 32.6, RDW Std Deviation 43.5, RDW Coeff of Bhupendra 13.2, Plt Count 223, MPV 11.8, Immature Gran % (Auto) 0.500, Neut % (Auto) 57.1, Lymph % (Auto) 27.7, Todd % (Auto) 10.7 H, Eos % (Auto) 3.5, Baso % (Auto) 0.5, Absolute Neuts (auto) 5.1, Absolute Lymphs (auto) 2.45, Nucleated RBC % 0, Sodium 142, Potassium 3.8, Chloride 106, Carbon Dioxide 22.2, Anion Gap 13, BUN 10, Creatinine 0.83, Estim Creat Clear Calc 73.59, Est GFR (MDRD) Non-Af 80, BUN/Creatinine Ratio 12.6, Glucose 107 H, Calcium 9.4, Total Bilirubin 0.34, Direct Bilirubin 0.10, AST 25, ALT 16, Alkaline Phosphatase 148 H, Total Protein 7.3, Albumin 4.0, Globulin 3.3, Lipase 8 L Micro: Microbiology 08/25/24 17:48 Mucosa - Nose SARS-CoV-2, Influenza & RSV (PCR) - Final Imaging Radiology Impression Chest X-Ray 08/25/24 16:55 IMPRESSION: Mild pulmonary vascular congestion. No focal consolidations. Reading Location: [id number] Chest CTA 08/25/24 17:40 IMPRESSION: No acute process. Reading Location: [facility] Assessment & Plan Assessment/Plan (1) Acute dyspnea: (2) Viral pneumonia: (3) Tachypnea: (4) Tobacco abuse: (5) COPD with acute exacerbation: PLAN: Plan Dyspnea, tachypnea, and Wheezing with COPD exacerbation 2/2 Viral Pneumonia - Patient not hypoxic and requiring oxygen at this point but is markedly tachypneic and having considerable wheezing therefore will admit as observation -Imaging is relatively unremarkable - Continue to monitor oxygen needs and would obtain ambulatory pulse ox prior todischarge - Check respiratory viral panel - COVID/flu/RSV is negative -While also getting give her check sputum culture - Start Solu-Medrol 40 every 8 - Scheduled and as needed nebulizers - Mucinex 1200 p.o. twice daily - I-S - Acapella COPD - Patient is not oxygen dependent at baseline - Will hold outpatient inhalers and restart at discharge - Recommend outpatient follow-up with pulmonary medicine - Patient would benefit from outpatient PFTs and 6-minute walk test GERD - Patient is currently not on any medication for acid reflux next-monitor for symptoms specially with steroid use Seizures -continue topamax Depression/anxiety - Continue home fluoxetine - Continue home trazodone next-continue as needed Xanax Morbid obesity - Recommend weight loss - Will monitor nocturnal pulse ox secondary to concern the patient may have obstructive sleep apnea baseline - BMI is 41.1 - Complicates treatment, prognosis, outcomes Tobacco abuse - Nicotine replacement therapy 21 mcg patch - Recommend cessation DVT prophylaxis - Subcu Lovenox 40 twice daily due to BMI greater than 40 CODE STATUS - Full code as verified prior to admission Charges/Coding Visit Charges Inpatient E&M: 64692 Init Hosp L2 08/25/242133 <Electronically signed by Modesta Caro DO> Cosigner Signature (if applicable): CC: Dr. Modesta Caro DO; Dr. Leonid Rice MD~ Signed [facility] Work Phone: 1(247) 920-704706-15-2025 Evaluation note* Diagnosis Onset Date Resolution Status Admit Date Acute dyspnea acute August 25, 2024 8:53pm Asthma exacerbation acute August 25, 2024 8:53pm Tachypnea acute August 25 8:53pm Viral pneumonia acute August 8:53pm COPD with acute exacerbation chronic August 25, 2024 8:53pm Tobacco abuse inactive August 25, 2024 8:53pm [facility] Work Phone: 1(413) 450-204706-15-2025 History and physical note [facility] Medical Records Department [address] [place] [address] H&P Exam - Hospitalist 08/25/242031 MR#: [id number] Acct: [id number] Name: JENNIFER RAMIREZ Rep #:[id number] : 1960 63 From: Modesta Caro DO PCP: Dr. Leonid Rice MD Status:A DM [facility] Location: [id number] HPI - General General Date of Admission: 08/25/24 Date of Service: 08/25/24 Chief Complaint: Cough and shortness of breath HPI Narrative JENNIFER MCMULLEN, is a 63 F who presented to the emergency department at [facility] on 08/25/2024 due to chief complaint of cough and shortness of breath. Patient has a history of COPD and asthma and currently still smokes tobacco. She states her father and then her brother was founddead in his home. She has been traveling back and forth from [place] takingcare of family affairs and the . She reported that for about a week prior to presentation she has had progressively worsening shortness of breath and intermittent fevers, cough, and intermittent clear sputum production. Giventhe fact that she has not been clinically improving she came to the emergencydepartment. She does not wear oxygen at baseline but is on multiple inhalers consistent with COPD diagnosis. Patient states she is still having some congestion, decreased p.o. intake due to lack of appetite, and myalgias. Vital signs on presentation showed a temperature of 99.7, heart rate was 100, respiratory rate was 22, blood pressure was 149/97 and pulse ox is 98% on room air. CBC is unremarkable other than a monocytosis at 10.7%. Chemistry panel isunremarkable. Lipase is negative at 8. Chest x-ray showed mild pulmonary vascular congestion but no focal infiltrates and CTA of the chest was performed and shows no acute processes. She was given several rounds of nebulizers and IV Solu-Medrol in the emergency department however she remained tachypneic, mildly tachycardic, and dyspneic. She did not require oxygen at rest or withexertion but given her symptoms she will be admitted as observation with anticipated hospitalization less than 2 midnights. [facility] Medical History Tobacco abuse GERD (gastroesophageal reflux disease) Asthma Depression Anxiety Home Medications ?Medication ?Instructions ?Recorded ?Last Taken ?Type fluoxetine 20 mg capsule 20 mg PO QHS 03/24/15 History topiramate 25 mg tablet (Topamax) 25 mg PO QHS 6 03/23/15 History trazodone 100 mg tablet 200 mg PO QHS 03/24/1503/23 History albuterol sulfate 90 mcg/actuation 2 puff inhalation Q 4H PRN PRN Sob 03/25/15 Unknown Rx aerosol inhaler (ProAir HFA) &/Or Wheezing ##1 budesonide 180 mcg/actuation 1 puff inhalation BID ##1 03/25/15 Unknown Rx breath activated powder inhaler (Pulmicort Flexhaler) Allergy/AdvReac Type Severity Reaction Status Date / Time latex Allergy Rash Verified 08/25/24 15:40 Family History Mother Myocardial infarction CVA (cerebral vascular accident) Diabetes Brother Asthma Myocardial infarction Father Hypertension Surgical History History of umbilical hernia repair History of cholecystectomy History of appendectomy Social History household members: none housing: house Smoking Status: Current every day smoker tobacco type: cigarettes alcohol intake: never what type of physical activity do you participate in: none do you feel safe at home: Yes ROS Constitutional Constitutional: Reports anorexia, chills, fatigue and malaise; Denies change in weight, fever(s), night sweats, weakness or other Eyes Eyes: Reports other Details: Eye redness ; Denies blurry vision, change in eye color, change in vision, discharge from eye(s), double vision, erythema, eye pain or loss of vision ENT HEENT: Reports nasal congestion; Denies abnormal hearing, dysphagia, ear pain, epistaxis, headache(s), hearing loss, nasal discharge, post nasal drip, sinus pressure, sore throat or other Cardiovascular Cardiovascular: Reports dyspnea on exertion; Denies chest pain, claudication, edema, lightheadedness, orthopnea, palpitations, paroxysmal nocturnal dyspnea, rapid heart rate, syncope or other Respiratory/Chest Respiratory/Chest: Reports cough, dyspnea, shortness of breath at rest, shortness of breath with exertion and wheezing; Denies excessive phlegm production, hemoptysis, productive cough or other Gastrointestinal Gastrointestinal: Denies abdominal pain, coffee ground emesis, constipation, diarrhea, dyspepsia, hematemesis, hematochezia, loose stools, melena, nausea, vomiting or other Genitourinary Genitourinary: Denies burning urination, difficulty urinating, dysuria, hematuria, nocturia, urinary frequency, urinary hesitancy, urinary incontinence,urinary urgency or other Musculoskeletal Musculoskeletal: Reports myalgias; Denies arthralgias, back pain, joint pain, joint stiffness, joint swelling, neck pain or other Neurologic Neurologic: Denies abnormal gait, abnormal speech, confusion, disequilibrium, dizziness, focal weakness, headache(s), numbness, paresthesias, seizure-like activity, seizures, syncope, tingling, tremor(s) or other Psychiatric Psychiatric: Reports anxiety and depression; Denies homicidal ideation, suicidalideation or other Endocrine Endocrinology: Denies change in body appearance, cold intolerance, excessive sweating, heat intolerance, polydipsia, polyuria or other Hematologic/Lymphatic Hematologic/Lymphatic: Denies anemia, easy bleeding, easy bruising, lymphadenopathy or other Allergic/Immunologic Allergic/Immunologic: Reports asthma; Denies rhinitis, hives, eczemia or other Vital Signs Vital Signs Vital Signs: 08/25/24 15:37 08/25/24 15:40 08/25/24 15:55 Temperature 99.7 F H 99.7 F H Temperature Source Oral Oral Pulse Rate 100 100 Respiratory Rate 22 H 22 H Respiratory Effort Short of Breath Labored Respiratory Depth Shallow Respiratory Pattern Tachypnea Blood Pressure 149/97 H 149/97 H Blood Pressure Mean 114 114 Pulse Ox 98 98 Oxygen Delivery Method Room Air Room Air Room Air 08/25/24 16:41 08/25/24 17:00 08/25/24 17:06 Temperature 99.7 F H 99.2 F H Temperature Source Oral Oral Pulse Rate 86 87 88 Respiratory Rate 25 H 26 H 28 H Respiratory Effort Respiratory Depth Respiratory Pattern Tachypnea Blood Pressure 163/86 H 148/93 H Blood Pressure Mean 111 111 Pulse Ox 96 95 Oxygen Delivery Method Room Air Room Air 08/25/24 17:45 08/25/24 18:00 08/25/24 19:00 Temperature 99.2 F H 99.3 F H Temperature Source Oral Oral Pulse Rate 89 98 99 Respiratory Rate 16 22 H 22 H Respiratory Effort Respiratory Depth Respiratory Pattern Blood Pressure 135/79 H 152/73 H 142/56 H Blood Pressure Mean 97 99 84 Pulse Ox 94 95 96 Oxygen Delivery Method Room Air Room Air Room Air 08/25/24 19:00 08/25/24 20:29 Temperature 99.3 F H Temperature Source Pulse Rate 99 93 Respiratory Rate 21 H 25 H Respiratory Effort Respiratory Depth Respiratory Pattern Blood Pressure 142/56 H 156/63 H Blood Pressure Mean 84 94 Pulse Ox 97 95 Oxygen Delivery Method Room Air Weight Weight: 95.481 kg Body Mass Index (BMI) 41.1 Physical Exam Const alert, oriented x3, no apparent distress and well nourished; Negative for average body habitus or healthy appearing Constitutional Narrative: Obese, upper middle-aged, female, lying in bed, appears comfortable, no signs of respiratorydistress but she is a bit tachypneic, does not appear toxic General Appearance: cooperative HEENT normocephalic, head/scalp atraumatic, hearing grossly normal bilaterally and moist oral mucous membranes HEENT Narrative: Mallampati 3, no thrush Eyes conjunctivae normal Eyes Narrative: Injected sclera bilaterally Neck no lymphadenopathy and supple Neck Narrative: Trachea midline, neck is short and thick Resp No normal respiratory effort, no retractions, no use of accessory muscles and Noclear to auscultation bilaterally Resp Narrative: Very coarse diffuse scattered end expiratory wheezes, tachypnea with no retractions or accessory muscle use Auscultation: wheezes; Negative for crackles or rhonchi Cardio regular rhythm, S1 normal heart sound, S2 normal heart sound, no rub, no gallopsand no clicks; Negative for regular rate or no murmurs Cardio Narrative: Mild tachycardia, 3 out of 6 systolic murmur loudest at right upper sternal border GI normal to inspection, nondistended, normoactive bowel sounds, soft to palpation and non-tender GI Narrative: Protuberant abdomen Extremity no clubbing, cyanosis or edema Extremity Narrative: 2+ pedal and radial pulses Neuro oriented x3, moves all extremities and no focal motor deficits Speech: speech normal Psych Psych Narrative: Affect is flat mood seems depressed Results Lab / Micro Data 08/25/24 15:53 08/25/24 15:53 Labs: Laboratory Results - last 24 hr 08/25/24 15:53: WBC 8.9, RBC 4.93, Hgb 14.4, Hct 44.2, MCV 89.7, MCH 29.2, MCHC 32.6, RDW Std Deviation 43.5, RDW Coeff of Bhupendra 13.2, Plt Count 223, MPV 11.8, Immature Gran % (Auto) 0.500, Neut % (Auto) 57.1, Lymph % (Auto) 27.7, Todd % (Auto) 10.7 H, Eos % (Auto) 3.5, Baso % (Auto) 0.5, Absolute Neuts (auto) 5.1, Absolute Lymphs (auto) 2.45, Nucleated RBC % 0, Sodium 142, Potassium 3.8, Chloride 106, Carbon Dioxide 22.2, Anion Gap 13, BUN 10, Creatinine 0.83, Estim Creat Clear Calc 73.59, Est GFR (MDRD) Non-Af 80, BUN/Creatinine Ratio 12.6, Glucose 107 H, Calcium 9.4, Total Bilirubin 0.34, Direct Bilirubin 0.10, AST 25, ALT 16, Alkaline Phosphatase 148 H, Total Protein 7.3, Albumin 4.0, Globulin 3.3, Lipase 8 L Micro: Microbiology 08/25/24 17:48 Mucosa - Nose SARS-CoV-2, Influenza & RSV (PCR) - Final Imaging Radiology Impression Chest X-Ray 08/25/24 16:55 IMPRESSION: Mild pulmonary vascular congestion. No focal consolidations. Reading Location: [id number] Chest CTA 08/25/24 17:40 IMPRESSION: No acute process. Reading Location: [facility] Assessment & Plan Assessment/Plan (1) Acute dyspnea: (2) Viral pneumonia: (3) Tachypnea: (4) Tobacco abuse: (5) COPD with acute exacerbation: PLAN: Plan Dyspnea, tachypnea, and Wheezing with COPD exacerbation 2/2 Viral Pneumonia - Patient not hypoxic and requiring oxygen at this point but is markedly tachypneic and having considerable wheezing therefore will admit as observation -Imaging is relatively unremarkable - Continue to monitor oxygen needs and would obtain ambulatory pulse ox prior todischarge - Check respiratory viral panel - COVID/flu/RSV is negative -While also getting give her check sputum culture - Start Solu-Medrol 40 every 8 - Scheduled and as needed nebulizers - Mucinex 1200 p.o. twice daily - I-S - Acapella COPD - Patient is not oxygen dependent at baseline - Will hold outpatient inhalers and restart at discharge - Recommend outpatient follow-up with pulmonary medicine - Patient would benefit from outpatient PFTs and 6-minute walk test GERD - Patient is currently not on any medication for acid reflux next-monitor for symptoms specially with steroid use Seizures -continue topamax Depression/anxiety - Continue home fluoxetine - Continue home trazodone next-continue as needed Xanax Morbid obesity - Recommend weight loss - Will monitor nocturnal pulse ox secondary to concern the patient may have obstructive sleep apneabaseline - BMI is 41.1 - Complicates treatment, prognosis, outcomes Tobacco abuse - Nicotine replacement therapy 21 mcg patch - Recommend cessation DVT prophylaxis - Subcu Lovenox 40 twice daily due to BMI greater than 40 CODE STATUS - Full code as verified prior to admission Charges/Coding Visit Charges Inpatient E&M: 40194 Init Hosp L2 08/25/244 Cosigner Signature (if applicable): CC: Dr. Modesta Caro DO; Dr. Leonid Rice MD~ Signed [facility]06-15-2025 Radiology Diagnostic study note [facility] Imaging Services [address] [place] [address] CTA Chest W/WO Contrast MR#: [id number] Acct: [id number] Name: JENNIFER RAMIREZ Rep #: [id number] : 1960 F 63 From: Rm Orellana DO PCP: Dr. Leonid Rice MD Status: R ER Study:CTA Chest W/WO Contrast Date of Exam: 08/25/24 Exam# [id number] Ordering Dr: Angelo Jesus DO PROCEDURE: CTA CHEST W/WO CONTRAST 08/25/2024 REASON FOR EXAM: PULMONARY EMBOLISM TECHNIQUE: CTA CHEST W/WO CONTRAST Multiplanar and multisequence images were obtained. One or more dose reduction techniques were used (e.g., Automated exposure control, adjustment of the mA and/or kV according to patient size, use of iterative reconstruction technique). COMPARISON: 01/26/2023 FINDINGS: Heart size is within normal limits. No significant pericardial effusion or coronary artery calcifications. Normal caliber thoracic aorta without dissection. Normal caliber pulmonary arteries without filling defects. No bulky adenopathy. No acute findings in the upper abdomen. Superficial soft tissues are within normal limits. Central airways are patent. No acute infiltrates, pleural effusion or pneumothorax. No pulmonary mass. No acute osseous abnormality. CT/CTA Chest W/WO Contrast IMPRESSION: No acute process. [facility] CC: Dr. Zachery Jesus DO; Dr. Leonid Rice MD ~ 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: Signed [facility]06-15-2025 Radiology Diagnostic study note [facility] Imaging Services [address] [place], [place] [address] Chest 1 View (Portable) MR#: [id number] Acct: [id number] Name: JENNIFER RAMIREZ Rep #: [id number] : 1960 F 63 From: Araceli Yeh MD PCP: Dr. Leonid Rice MD Status: R EG ER Study:Chest 1 View (Portable) Date of Exam: 08/25/24 Exam# [id number] Ordering Dr: Angelo Jesus DO PROCEDURE: CHEST 1 VIEW (PORTABLE) 08/25/2024 REASON FOR EXAM: DYSPNEA TECHNIQUE: Frontal view of the chest. COMPARISON: 01/26/2023 FINDINGS: Mild pulmonary vascular congestion. No focal consolidations. No pleural effusion or pneumothorax. Cardiac silhouette is unchanged. No acute fractures. RAD/Chest 1 View (Portable) IMPRESSION: Mild pulmonary vascular congestion. No focal consolidations. Reading Location: [facility] CC: Dr. Zachery Jesus DO; Dr. Leonid Rice MD ~ 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: Signed [facility]06-15-2025 Evaluation note* Diagnosis Onset Date Resolution Status Admit Date Acute dyspnea acute August 25, 2024 8:53pm Asthma exacerbation acute August 25, 2024 8:53pm Tachypnea acute August 25 8:53pm Viral pneumonia acute August 8:53pm COPD with acute exacerbation chronic August 25, 2024 8:53pm Tobacco abuse inactive August 25, 2024 8:53pm [facility] Work Phone: 1(243) 305-939311-07-2024 Note* Discharge Instr - Nursing - Amira Wiggins RN - 01/18/2024 9:27 AM EST The patient received a copy of EGD discharge instructions that contain information for how to contact the physician who performed the procedure and when to seek medical care. [facility]11-07-2024 Miscellaneous Notes* Discharge Instr - Nursing - Amira Wiggins RN - 01/18/2024 9:27 AM EST The patient received a copy of EGD discharge instructions that contain information for how to contact the physician who performed the procedure and when to seek medical care. documented in this [facility] Nurse Note* Amira Wiggins RN - 01/18/2024 9:24 AM EST pt arrived to phase 2 resting on left side. Daughter at bedside. SR up x 2, call light in reach. Amira Wiggins RN [facility]11-07-2024 Nurse Note* Amira Wiggins RN - 01/18/2024 9:24 AM EST pt arrived to phase 2 resting on left side. Daughter at bedside. SR up x 2, call light in reach. Amira Wiggins RN documented in this [facility]King[facility] [place] History and physical note * Zachery Toussaint MD - 01/18/2024 9:15 AM EST HISTORY AND PHYSICAL Jennifer Mcmullen 1960 REFERRING PHYSICIAN: Marianna Yap, APR* CHIEF COMPLAINT: New Patient HPI: The patient is a 63 year old female referred for endoscopy. Jennifer Mcmullen is a 63 year old female who presents today for above. She is here today for follow-up. She was last seen aboutone month ago, reported chronic left knee pain. [...] back pain 05/27/2014 Work injury 2006 Depression [facility] Diabetes mellitus (HCC) Disc slipped disc [...] bx neg. internal hemorrhoids. lax anal tone. [facility] COLONOSCOPY FLX DX W/COLLJ SPEC WHEN PFRMD 06/12/2014 Colonoscopy out pt [facility] EGD 04/10/2018 Hpylori negative - [facility] ESOPHAGOGASTRODUODENOSCOPY TRANSORAL DIAGNOSTIC 06/12/2014 EGD outpt [facility] HERNIA REPAIR HX 12/01/2011 TOTAL ABDOMINAL HYSTERECT [...] Brother Seizures Brother Coronary Artery Disease Brother PR REVIEW OF SYMPTOMS: The review of systems data was entered by the nurse and reviewed by me There are no exam notes on file for this visit. PHYSICAL EXAMINATION: General: The patient is 63 year old female, well nourished, well hydrated in no acute distress. Thepatient is oriented to time, place, and person. VITALS: Blood pressure 116/72, pulse 80, resp. rate 16, height 152.4 cm (5'), weight 98.4 kg (217 lb), SpO2 97%. Body mass index is 42.38 kg/m . HEENT: Normal cephalic, ataumatic, pupils are equally round, sclera are anicteric, mucous membranesare moist, oropharynx is clear. Neck has no [...] discussed with the Patient or Patient's Authorized Integration Architect. Asapplicable, any other physician, advance practice provider, medical student, or other health professional student that will be observing or involved in the sensitive examination for educational or training purposes was discussed with the Patient or Authorized Integration Architect. The Patient or Authorized Integration Architect has agreed to proceed with the sensitive examination. (Sensitive examination includes inspection and/or palpation of the breasts, pelvis, prostate and anorectal regions) PHYSICAL EXAM MUST BE COMPLETED ON ADMISSION The History and Physical (completed in the past 30 days) has been reviewed and the patient has beenexamined. The contents accurately reflect the patient's condition with the following additions or revisions since the H&P was completed. Examination indicates no changes. This H&P can be found in the attached. SIGNATURE: Zachery Toussaint III, MD PATIENT NAME: Jennifer Mcmullen DATE: January 18, 2024 TIME: 9:11 AM [facility]11-07-2024 History and physical note* Zachery Toussaint MD - 01/18/2024 9:15 AM EST HISTORY AND PHYSICAL Jennifer Mcmullen 1960 REFERRING PHYSICIAN: Marianna Yap, APR* CHIEF COMPLAINT: New Patient HPI: The patient is a 63 year old female referred for endoscopy. Jennifer Mcmullen is a 63 year old female who presents today for above. She is here today for follow-up. She was last seen aboutone month ago, reported chronic left knee pain. [...] back pain 05/27/2014 Work injury 2006 Depression [facility] Diabetes mellitus (HCC) Disc slipped disc in back Fracture of right ankle Head injury Helicobacter pylori infection 09/12/2016 Hernia, hiatal Hyperglycemia 2010 Insomnia JOSSELIN (obstructive sleep apnea) 02/25/2019 Post-traumatic headache 01/16/2014 Postmenopausal Prediabetes 04/08/2019 PTSD (post-traumatic stress disorder) Tobacco use PAST SURGICAL HISTORY PAST SURGICAL HISTORY Procedure Laterality Date APPENDECTOMY 2012 [place] SECTION HX 1980 x 2 CHOLECYSTECTOMY 1989 COLONOSCOPY 01/10/2018 Random bx neg. internal hemorrhoids. lax anal tone. [facility] COLONOSCOPY FLX DX W/COLLJ SPEC WHEN PFRMD 06/12/2014 Colonoscopy out pt [facility] EGD 04/10/2018 Hpylclementine gauthier - [facility] ESOPHAGOGASTRODUODENOSCOPY TRANSORAL DIAGNOSTIC 06/12/2014 EGD outpt [facility] HERNIA REPAIR HX 12/01/2011 TOTAL ABDOMINAL HYSTERECT [...] Brother Seizures Brother Coronary Artery Disease Brother PR REVIEW OF SYMPTOMS: The review of systems data was entered by the nurse and reviewed by me There are no exam notes on file for this visit. PHYSICAL EXAMINATION: General: The patient is 63 year old female, well nourished, well hydrated in no acute distress. Thepatient is oriented to time, place, and person. VITALS: Blood pressure 116/72, pulse 80, resp. rate 16, height 152.4 cm (5'), weight 98.4 kg (217 lb), SpO2 97%. Body mass index is 42.38 kg/m . HEENT: Normal cephalic, ataumatic, pupils are equally round, sclera are anicteric, mucous membranesare moist, oropharynx is clear. Neck has no [...] discussed with the Patient or Patient's Authorized Integration Architect. Asapplicable, any other physician, advance practice provider, medical student, or other health professional student that will be observing or involved in the sensitive examination for educational or training purposes was discussed with the Patient or Authorized Integration Architect. The Patient or Authorized Integration Architect has agreed to proceed with the sensitive examination. (Sensitive examination includes inspection and/or palpation of the breasts, pelvis, prostate and anorectal regions) PHYSICAL EXAM MUST BE COMPLETED ON ADMISSION The History and Physical (completed in the past 30 days) has been reviewed and the patient has beenexamined. The contents accurately reflect the patient's condition with the following additions or revisions since the H&P was completed. Examination indicates no changes. This H&P can be found in the attached. SIGNATURE: Zachery Toussaint III, MD PATIENT NAME: Jennifer Mcmullen DATE: January 18, 2024 TIME: 9:11 AM documented in this encounterKing[facility] NoteHNO ID: [id number] Author: RUBY KIRKPATRICK PT Service: ? Author [...] Goals for Episode of Care: established 01/16/24 [place] in home exercise program. Patient will decrease [...] Planned: 4 Planned Treatment Interventions: Therapeutic exercise (64201), Neuromuscular re-education (92300), Manual therapy (06162), Therapeutic activities (25551), Self-shelter management (10435), Gait Training (30334), Patient/Family/Caregiver Education, Body Mechanics Training, General Conditioning [...] Stand Test : 13.67 (more content not included)...[facility]11-05-2024 History of Present illness Narrative* Ruby Kirkpatrick PT - 01/16/2024 5:55 PM EST Images from the original note were not [...] strength, symptom management, and tissue tenderness. PROMIS (Patient- Reported Outcomes Measurement Information System) scores were reviewed and identified as a rehabilitation concern. Prognosis for therapy is Fair due to: chronic nature of impairments, clinical presentation. The patient will benefit from skilled therapy services to meet the goals established for this plan of care as noted below. Goals for Episode of Care: established 01/16/24 [place] in home exercise program. Patient will decrease [...] Planned: 4 Planned Treatment Interventions: Therapeutic exercise (72269), Neuromuscular re- education (28674), Manual therapy (06688), Therapeutic activities (76821), Self- shelter management ([id number]), Gait Training ([id number]), Patient/Family/Caregiver Education, Body Mechanics Training, General Conditioning [...] Stop Time : 1400 Ruby Kirkpatrick PT * Ruby Kirkpatrick PT - 01/16/2024 5:50 PM EST Program_ID:[id number] Access Code: [email or web address] URL: [email or web address] Date: 01-16-2024 Prepared By: Ruby Kirkpatrick Program [...] sets - 10 reps documented in this encounterKing'S [facility] [place]10-29-2024 NoteHNO ID: [id number] Author: ZACHERY TOUSSAINT MD Service: ? Author [...] back pain 05/27/2014 Work injury 2006 Depression [facility] Diabetes mellitus (HCC) Disc slipped disc in back Fracture of right ankle Head injury Helicobacter pylori infection 09/12/2016 Hernia, hiatal Hyperglycemia 2010 Insomnia JOSSELIN (obstructive sleep apnea) 02/25/2019 Post-traumatic headache 01/16/2014 Postmenopausal Prediabetes 04/08/2019 PTSD (post-traumatic stress disorder) Tobacco use PAST SURGICAL HISTORY Procedure Laterality Date APPENDECTOMY 2012 [place] SECTION HX 1980 x 2 CHOLECYSTECTOMY 1989 COLONOSCOPY 01/10/2018 Random bx neg. internal hemorrhoids. lax anal tone. [facility] COLONOSCOPY FLX DX W/COLLJ SPEC WHEN PFRMD 06/12/2014 Colonoscopy out pt [facility] EGD 04/10/2018 Hpylori negative - [facility] ESOPHAGOGASTRODUODENOSCOPY TRANSORAL DIAGNOSTIC 06/12/2014 EGD outpt [facility] HERNIA REPAIR HX 12/01/2011 TOTAL ABDOMINAL HYSTERECT [...] once daily. Noble Gilbert CNP at the [facility]. (Patient not taking: Reported on [...] Brother Seizures Brother Coronary Artery Disease Brother PR REVIEW OF SYMPTOMS: The review of systems [...] masses, asymmetry or lymphadenopat (more content not included)...[facility]10-29-2024 History of Present illness Narrative* Zachery Toussaint MD - 01/09/2024 8:38 AM EDT HISTORY AND PHYSICAL Jennifer Mcmullen 1960 REFERRING PHYSICIAN: Marianna Yap, APR* CHIEF COMPLAINT: New Patient HPI: The patient is a 63 year old female referred for endoscopy. Jennifer Mcmullen is a 63 year old female who presents today for above. She is here today for follow-up. She was last seen aboutone month ago, reported chronic left knee pain. [...] back pain 05/27/2014 Work injury 2006 Depression [facility] Diabetes mellitus (HCC) Disc slipped disc [...] bx neg. internal hemorrhoids. [facility] W/COLLJ SPEC WHEN PFRMD 06/12/2014 Colonoscopy out pt [facility] EGD 04/10/2018 Hpylori negative - [facility] ESOPHAGOGASTRODUODENOSCOPY TRANSORAL DIAGNOSTIC 06/12/2014 EGD outpt [facility] HERNIA REPAIR HX 12/01/2011 TOTAL ABDOMINAL HYSTERECT [...] Brother Seizures Brother Coronary Artery Disease Brother PR REVIEW OF SYMPTOMS: The review of systems data was entered by the nurse and reviewed by me There are no exam notes on file for this visit. PHYSICAL EXAMINATION: General: The patient is 63 year old female, well nourished, well hydrated in no acute distress. Thepatient is oriented to time, place, and person. VITALS: Blood pressure 116/72, pulse 80, resp. rate 16, height 152.4 cm (5'), weight 98.4 kg (217 lb), SpO2 97%. Body mass index is 42.38 kg/m . HEENT: Normal cephalic, ataumatic, pupils are equally round, sclera are anicteric, mucous membranesare moist, oropharynx is clear. Neck has no [...] Zachery Toussaint III, MD documented in this encounterKing'S Daughters [facility] [place]10-28-2024 NoteHNO ID: [id number] Author: MARIANNA YAP APRN.LICENSED PROSTHETIST Service: ? Author Type: Nurse Practitioner Type: [...] back pain 05/27/2014 Work injury 2006 Depression [facility] Diabetes mellitus (HCC) Disc slipped disc in back Fracture of right ankle Head injury Helicobacter pylori infection 09/12/2016 Hernia, hiatal Hyperglycemia 2010 Insomnia JOSSELIN (obstructive sleep apnea) 02/25/2019 Post-traumatic headache 01/16/2014 Postmenopausal Prediabetes 04/08/2019 PTSD (post-traumatic stress disorder) Tobacco use PAST SURGICAL HISTORY Procedure Laterality Date APPENDECTOMY 2012 [place] SECTION HX 1980 x 2 CHOLECYSTECTOMY 1989 COLONOSCOPY 01/10/2018 Random bx neg. internal hemorrhoids. lax anal tone. [facility] COLONOSCOPY FLX DX W/COLLJ SPEC WHEN PFRMD 06/12/2014 Colonoscopy out pt [facility] EGD 04/10/2018 Hpylori negative - [facility] ESOPHAGOGASTRODUODENOSCOPY TRANSORAL DIAGNOSTIC 06/12/2014 EGD outpt [facility] HERNIA REPAIR HX 12/01/2011 TOTAL ABDOMINAL HYSTERECT [...] Brother Seizures Brother Coronary Artery Disease Brother PR Social History Tobacco Use Smoking status: Every [...] due on 10/18/2023 RSV (more content not included)...[facility]10-28-2024 History of Present illness Narrative* Marianna Yap, LAUNDRY MACHINE OPERATOR.LICENSED PROSTHETIST - 01/08/2024 11:06 AM EDT CC: Patient presents with: Follow Up: [facility] Jennifer Mcmullen is a 63 year old female who presents today for above. She is here today forfollow-up. She was last seen about one month [...] back pain 05/27/2014 Work injury 2006 Depression [facility] Diabetes mellitus (HCC) Disc slipped disc in back Fracture of right ankle Head injury Helicobacter pylori infection 09/12/2016 Hernia, hiatal Hyperglycemia 2010 Insomnia JOSSELIN (obstructive sleep apnea) 02/25/2019 Post-traumatic headache 01/16/2014 Postmenopausal Prediabetes 04/08/2019 PTSD (post-traumatic stress disorder) Tobacco use PAST SURGICAL HISTORY Procedure Laterality Date APPENDECTOMY 2012 [place] SECTION HX 1980 x 2 CHOLECYSTECTOMY 1989 COLONOSCOPY 01/10/2018 Random bx neg. internal hemorrhoids. lax anal tone. [facility] COLONOSCOPY FLX DX W/COLLJ SPEC WHEN PFRMD 06/12/2014 Colonoscopy out pt [facility] EGD 04/10/2018 Hpylori negative - [facility] ESOPHAGOGASTRODUODENOSCOPY TRANSORAL DIAGNOSTIC 06/12/2014 EGD outpt [facility] HERNIA REPAIR HX 12/01/2011 TOTAL ABDOMINAL HYSTERECT [...] Brother Seizures Brother Coronary Artery Disease Brother PR Social History Tobacco Use Smoking status: Every [...] Patient agreeable to treatment plan. Marianna Yap APRN.CNP documented in this encounterKing'S Daughters [facility] [place]10-16-2024 Instructions* Patient Instructions* Terrence Flores APRN.CNP - 12/27/2023 3:34 PM EDT Lung nodule/s: no new nodules of concern. Please return in one year for the following 2 visits on the same day: Annual low-dose CT chest Lung cancer screening Provider visit. This recommendation is subject to change pending the final report from radiology. I will notify you of the final radiology report recommendations when available by Optasitehart message, letter, or phone call. We will also notify your referring provider/PCP of the results and recommendations. If you didn t schedule this before you left the office or need to reschedule, you can call in to schedule it anytime: [facility] [place] [phone] [facility] [phone] All other [facility] [place] locations [phone] Feel free to reach out for any questions or concerns, Terrence Flores APRN.CNP Lung Cancer Screening [phone] documented in this encounterKing'S Daughters [facility] [place]10-16-2024 History of Present illness Narrative* Terrence Flores APRN.CNP - 12/27/2023 2:30 PM EDT Images from the original note [...] which included preparing to see the patient, ntkp-ye-hygb patient care, completing clinical documentation, performing a medically appropriate examination, counseling and educating the patient/family/caregiver, ordering medications, tests, or p rocedures, communicating with other HCPs (not separately reported), independently interpreting results (not separately reported), communicating results to the patient/family/caregiver, and care coordination (not separately reported). Terrence Flores APRN.[facility] December 27, 2023 12:08 PM History [...] dyspnea. Patient denies feeling of chest tightness/congestion inthe chest. Patient does not have a new or concerning cough, and denies hemoptysis. Patient does nothave a chronic daily cough. Denies regular or recent fevers/chills. Patient does not have any signif icant unintentional weight loss. Patient denies having any respiratory infections or COVID-19 in the past few months. Taking Breo and spiriva daily. Modified Medical Research [place] Dyspnea Scale (MMRC) I only get breathless [...] back pain 05/27/2014 Work injury 2006 Depression [facility] Diabetes mellitus (HCC) Disc slipped disc [...] Brother Seizures Brother Coronary Artery Disease Brother PR Surgical Hx: PAST SURGICAL HISTORY Procedure Laterality Date APPENDECTOMY 2012 [place] SECTION HX 1980 x 2 CHOLECYSTECTOMY 1989 COLONOSCOPY 01/10/2018 Random bx neg. internal hemorrhoids. lax anal tone. [facility] COLONOSCOPY FLX DX W/COLLJ SPEC WHEN PFRMD 06/12/2014 Colonoscopy out pt [facility] EGD 04/10/2018 Hpylori negative - [facility] ESOPHAGOGASTRODUODENOSCOPY TRANSORAL DIAGNOSTIC 06/12/2014 EGD outpt [facility] HERNIA REPAIR HX 12/01/2011 TOTAL ABDOMINAL HYSTERECT [...] DATE OF EXAM: Mar 31 2022 2:03PM [facility] [place] LUNG SCREEN WO IVCON [...] without contrast. MQ: CTLCS_6 Patient characteristics: * Hmyq-za-Qpsta: 1960; Age at exam: 61 years * Gender: Female * Lung Disease: Asymptomatic (no signs or symptoms of lung disease) * Number of Pack Years: 75 * Current smoker (=0) or Number of Years since Quit: 0 * Ordering provider and NPI: ARCELIA GARCIA [id number] * Interpreting radiologist and NPI: Jarad [id number] Exam acquisition parameters: * Exam Date: 03/31/2022 2:03 PM * Site: [facility] * * CT System Asphalt Tamper: RebelMail * CT System Model: AMRAS Ventureo * Tube Current-Time (mA-sec): 60 * Peak [...] Left Anterior Descending None; Right Coronary None Wood Form Builder (topogram) images: No additional findings. Impression: IMPRESSION: LungRADS category: 1 LungRADS modifier: None LungRADS 0 reason: n/a Recommendations: Continue annual screening with LDCT in 12 months. Other actionable findings: Reference: [employer]. Lung CT Screening Reporting and Data System (Lung-RADS). Available at: http://www.acr.org/Quality-Safety/Resources/LungRADS 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: AMADO Transcribe Date/Time: Mar 31 2022 10:29P [...] Function Testing: SPIROMETRY WITH DILATOR IF OBSTRUCTED ([id number]) - ordered on 10/18/18 Formerly [facility] [address] [facility] [address] [place] [address] Test Date: 2018-10-18 Pat Name: JENNIFER MCMULLEN Department: Room: Gender: Female County Attorney: : 1960 Requested By: Order Number: [id number] Reading MD: Zack Walker Interpretive Statements ATS [...] 7:37:30 EDT by Zack Walker [facility] [address] [place], [place] [address] PFT Lab Report Name: JENNIFER RAMIREZ ID: [id number] Date: 10/18/18 Physician: Genaro JACK Age: 57 Height(in): 60.0 Weight(lb): 234 Gender: Female Race: Diagnosis: Medication Set 1: Dyspnea Rest: No Dyspnea Exercise: No Cough: No Persistent: No Productive (cc): Smoker: No How Long: Stopped: Cigarettes: No County Attorney: Suha Dodson RCP Temp: 26 PBar: 734 PF Reference: ######## Spirometry Hb: gm/dL Ref Pre Pre Post Post Post Enedelia % Ref Enedelia % Ref % Chg FVC Liters 2.94 1.64 56 FEV1 Liters 2.30 1.33 58 FEV1/FVC % 79 81 TAJ75-29% L/sec 2.33 1.49 64 NftNFQ12-10 L/sec 2.50 1.49 60 PEF L/sec 5.92 4.11 69 AYC134% Sec 6.26 MVV L/min 92 f BPM [...] max cmH2O 141 null documented in this encounterKing'S Daughters [facility] [place]10-16-2024 NoteHNO ID: [id number] Author: TERRENCE FLORES APRN.RIGO Service: ? Author Type: Nurse Practitioner [...] which included preparing to see the patient, nsfg-sy-aafv patient care, completing clinical documentation, performing a medically appropriate examination, counseling and educating the patient/family/caregiver, ordering medications, tests, or procedures, communicating with other HCPs (not separately reported), independently interpreting results (not separately reported), communicating results to the patient/family/caregiver, and care coordination (not separately reported). Terrence Flores APRN.[facility] December 27, 2023 12:08 PM History [...] Breo and spiriva daily. Modified Medical Research [place] Dyspnea Scale (MMRC) I only get breathless with strenous exercise 0 Last 12 Encounter Wt Readings: Date: Wt: 12/01/2023 97.3 kg (214 lb 8.1 oz) 08/23/2023 97.1 kg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 Marianna Easley APRN.CNP - 11/28/2022 11:28 AM EDT Artrosis De [place] - Osteoarthritis La artritis (que literalmente significa articulaci n inflamada ) puede afectar cualquier articulacin del cuerpo, incluidas las articulaciones entre los [...] en la que el cart rogelio liso quecubre las superficies seas de la articulaci n [...] punta de los dedos (n dulos de [place]) (v ase la Figura 2). La artrosis enla articulaci n basal puede causar inflamaci n, [...] en la articulaci n pueden reducir el dolor,willis ninguna de estas opciones melba la artritis. La cirug a se considera cuando las opciones no quir rgicas antemencionadas no dieron resultado. En la mayor a de los casos debe informar a arredondo m dico cuando est listo para la cirug a. El objetivo es restituir tanto funcionamiento wilver sea posible y minimizar arredondo dolor. Un tipo de cirug a es la fusi narticular. Se extirpa el cart rogelio desgastado y se fusionan los huesos de cada lado de la articulaci n, lo que significa que la articulaci n no se residential builder , willis tampoco doler . Otra opci n es la reconstrucci n articular, donde la superficie articular spera se extirpa y se reemplaza por arredondo propio tejido blando o por un implante. El tipo de cirug a depende de las articulaciones afectadas, arredondo anatom a y taqueria actividades. El cirujano especialista en la mano puede ayudarle a decidir qu tipo de cirug aes el mejor para usted. documented in this encounterKing'S [facility] [place]09-15-2023 Miscellaneous Notes* Telephone Encounter - Willis Jacobo Ma - 11/25/2022 2:42 PM EDT Scheduled. * Telephone Encounter - Marianna Easley APRN.CNP - 11/25/2022 2:06 PM EDT Schedule follow-up for next week Marianna Easley APRN.CNP * Telephone Encounter - Natividad Cortes LPN - 11/23/2022 3:11 PM EDT Phoned patient and went over results, notes from Marianna Easley MOTOR COACH DRIVER with understanding. Patient said no improvement, her hands hurt a lot all the time. * Telephone Encounter - Natividad Cortes LPN - 11/23/2022 3:09 PM EDT ----- Message from Marianna Easley APRN.CNP sent at 11/23/2022 2:12 PM EDT ----- Please let the patient know her labs were normal. 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 Has there been any improvement in pain? Marianna Easley APRN.CNP documented in this encounterKing'S [facility] [place]09-08-2023 History of Present illness Narrative* Jossie Daniel RT(R) - 11/18/2022 2:20 PM EDT Radiology Service Progress Note PATIENT NAME: Jennifer Mcmullen DATE OF SERVICE: November 18, 2022 TIME: 1:59 PM PATIENT IDENTITY VERIFICATION COMPLETED USING TWO (2) IDENTIFIERS: Name and Date of confirmedby patient verbally. FALL SCREENING: Has the patient had 2 falls in the last year or 1 fall with injury or currently using an Ambulatory Assistive Device (Walker, Cane, Wheelchair, Crutches, etc.)? No PATIENT GENDER DATA: Female. status: : No status: NO. PATIENT RELEVANT IMPLANT DATA REVIEWED: Yes RADIOLOGY DEPARTMENT: General X-ray: Exam(s) Completed: Upper Extremity X- Ray(s): Hand, left PERIPHERAL IV DATA: Not applicable SIGNED BY: RT Nadeem(R) November 18, 2022 1:59 PM documented in this encounterKing'S [facility] [place]09-08-2023 Instructions* Patient Instructions* Marianna Easley APRN.CNP - 11/18/2022 1:37 PM EDT For hand pain: start prednisone, follow prescription instructions. This may cause your blood sugarsto be higher than usual. Please call the office if your blood sugar is over 300. documented in this encounterKing'S [facility] [place]09-08-2023 History of Present illness Narrative* Marianna Easley APRN.CNP - 11/18/2022 1:17 PM EDT CC: Patient presents with: left hand pain x 2 weeks HPI Jennifer Mcmullen is a 62 year old female who presents today for above. Patient reports acuteonset left hand pain a few weeks ago. [...] back pain 05/27/2014 Work injury 2006 Depression [facility] Diabetes mellitus (HCC) Disc slipped disc [...] bx neg. internal hemorrhoids. lax anal tone. [facility] COLONOSCOPY FLX DX W/COLLJ SPEC WHEN PFRMD 06/12/2014 Colonoscopy out pt [facility] EGD 04/10/2018 Hpylori negative - [facility] ESOPHAGOGASTRODUODENOSCOPY TRANSORAL DIAGNOSTIC 06/12/2014 EGD outpt [facility] HERNIA REPAIR HX 12/01/2011 TOTAL ABDOMINAL HYSTERECT [...] Brother Seizures Brother Coronary Artery Disease Brother PR Social History Tobacco Use Smoking status: Every [...] plan. Marianna Easley APRN.CNP documented in this encounterKing'S [facility] [place]05-17-2023 Miscellaneous Notes* Telephone Encounter - Fabienne Sun RN - 07/27/2022 11:44 AM EDT Pt called and is notified of providers results and instructions. Pt voices understanding. Fabienne Sun RN * Telephone Encounter - Marianna Easley APRN.CNP - 07/27/2022 11:18 AM EDT Please let the patient know I reviewed her lab results from 05/31. HgbA1c 6.3, diabetes well controlled. Kidney function was stable. Potassium slightly elevated, recheck at her earliest convenience Marianna Easley APRN.CNP documented in this encounterKing'S [facility]aughters [facility] [place]04-03-2023 Miscellaneous Notes* Telephone Encounter - Sanam Aragon LPN - 06/13/2022 1:42 PM EDT Patient notified of below results/recommendation, verbalized understanding. Sanam Aragon LPN * Telephone Encounter - Sanam Aragon LPN - 06/13/2022 1:41 PM EDT ----- Message from Leonid Rice MD sent at 06/12/2022 12:11 PM EDT ----- Shoulder xray mild arthritis of acromioclavicular joint. Continue meloxicam. documented in this encounterKing'S [facility] [place]03-27-2023 Miscellaneous Notes* Letter - Mammography Coordinator - 06/06/2022 11:21 AM EDT June 07, 2022 PID: [id number] Jennifer Mcmullen [address] [place] [address] Dear Ms. Emily Mcmullen, We are pleased to inform you [...] report will be kept on file at [facility] as part of your permanent medical record and are available for your continuing care. Thank you for allowing us to help in meeting your health care needs. Sincerely, Dr. Mitchell Interpreting Radiologist [facility] (Normal over 40) documented in this encounterKing'S Daughters [facility] [place]03-24-2023 History of Present illness Narrative* Chayo Krishnamurthy RT(R) - 06/03/2022 12:30 PM EDT Radiology Service Progress Note PATIENT NAME: Jennifer Mcmullen DATE OF SERVICE: June 03, 2022 TIME: 12:33 PM PATIENT IDENTITY VERIFICATION COMPLETED USING TWO (2) IDENTIFIERS: Name and Date of confirmedby patient verbally. FALL SCREENING: Has the patient [...] 03, 2022 12:33 PM documented in this encounterKing'S [facility] [place]03-21-2023 Instructions* Patient Instructions* Leonid Rice MD - 05/31/2022 10:43 AM EDT BLOOD WORK TODAY. documented in this encounterKing'S [facility]aughters [facility] [place]03-21-2023 History of Present illness Narrative* Leonid Rice MD - 05/31/2022 10:29 AM EDT This note was created using [employer]. Subjective Jennifer Mcmullen is a 61 year old female. She was doing well and had only concern about her left shoulder. She had left shoulder injury a fewyears ago, when she fell on her left arm. She was sent for physical therapy back then (07/2020) withworsening symptoms so she stopped the therapy and [...] Complication, Without Long-Term Current Use of Insulin ([facility]) Social History Tobacco Use Smoking status: Every [...] by mouth daily at bedtime. [facility], [facility], [facility]. FLUoxetine (PROZAC) 20 mg [...] POWDER Leonid Rice MD documented in this encounterKing'S [facility]aughters [facility] [place]03-15-2023 Miscellaneous Notes* Telephone Encounter - Sanam Aragon LPN - 05/25/2022 3:24 PM EDT Patient has been identified by name and [...] Please advise. Thank you. Sanam Aragon LPN * Telephone Encounter - Christina Hdez - 05/25/2022 2:47 PM EDT Patient has been identified by name and date of : Yes Requested Prescriptions Pending Prescriptions Disp Refills topiramate (TOPAMAX) 50 mg tablet 60 tablet 5 Sig: Take 1 tablet by mouth twice daily. RX INSTRUCTIONS: Patient aware RX will be sent to pharmacy. No need to notify patient. Christina Jeong Pss documented in this encounterKing'S Daughters [facility] [place]01-26-2023 Miscellaneous Notes* Telephone Encounter - Charlene Downey LPN - 04/07/2022 1:31 PM EST All faxed to number on the form. * Telephone Encounter - Leonid Rice MD - 04/07/2022 12:58 PM EST Signed. Fax Marianna's note re: JOSSELIN. * Telephone Encounter - Charlene Downey LPN - 04/07/2022 9:10 AM EST Fax rec'd for CPAP nasal mask and CPAP heated tubing. * Telephone Encounter - Fabienne Sun RN - 04/06/2022 9:29 AM EST Sugar with [employer] called and reports she is going to fax a form for provider to sign and fax back for Pts Cpap and supplies. Faxing last OV note reporting Pt is using a Cpap to [phone]. documented in this encounterKing'S [facility] [place]01-20-2023 Miscellaneous Notes* Telephone Encounter - Arcelia Garcia APRN.LICENSED PROSTHETIST - 04/01/2022 5:42 PM EST Spoke with patient's daughter listed as emergency manager contact) regarding LDCT category 1 resultswith follow-up recommended in one year for annual LCS. She comprehend and agreeable with plan. Arcelia Garcia APRN.RIGO documented in this encounterKing'S [facility] [place]01-19-2023 Miscellaneous Notes* Allied [facility] - Leonor Santiago - 03/31/2022 1:30 PM EST Radiology Service Progress Note PATIENT NAME: Jennifer Mcmullen DATE OF SERVICE: March 31, 2022 TIME: 1:59 PM PATIENT IDENTITY VERIFICATION COMPLETED USING TWO (2) IDENTIFIERS: Name and Date of confirmedby patient verbally and Name and Date of [...] 31, 2022 1:59 PM documented in this encounterKing'S [facility] [place]12-07-2022 Instructions* Patient Instructions* Lakeisha Silva LPN - 02/16/2022 9:11 AM [...] alcohol and it will burn. The wound shouldnot be immersed in a pool, bathtub, or even hot tub. You may take Tylenol or Ibuprofen as needed for pain. If the wound shows signs of redness, inflammation, or purulent drainage, you should contact our office immediately. Call our office with any questions or concerns at and ask for General Surgery department. documented in this encounterKing'S [facility]aughters [facility] [place]12-07-2022 History of Present illness Narrative* Lakeisha Silva LPN - 02/16/2022 8:50 AM EST UNIVERSAL PROTOCOL / SAFETY CHECKLIST Procedure to [...] Visit completed when applicable. Lakeisha Silva LPN * Fabienne Howard PA-C - 02/16/2022 8:23 AM EST HISTORY AND PHYSICAL Jennifer Mcmullen 1960 REFERRING [...] back pain 05/27/2014 Work injury 2006 Depression [facility] Diabetes mellitus (HCC) Disc slipped disc in back Fracture of right ankle Head injury Helicobacter pylori infection 09/12/2016 Hernia, hiatal Hyperglycemia 2010 Insomnia JOSSELIN (obstructive sleep apnea) 02/25/2019 Post-traumatic headache 01/16/2014 Postmenopausal Prediabetes 04/08/2019 PTSD (post-traumatic stress disorder) Tobacco use OPERATIONS: PAST SURGICAL HISTORY Procedure Laterality Date APPENDECTOMY 2012 [place] SECTION HX 1980 x 2 CHOLECYSTECTOMY 1989 COLONOSCOPY 01/10/2018 Random bx neg. internal hemorrhoids. lax anal tone. Giovanna in [facility] COLONOSCOPY FLX DX W/COLLJ SPEC WHEN PFRMD 06/12/2014 Colonoscopy out pt [facility] EGD 04/10/2018 Hpylori negative - Giovanna in [facility] ESOPHAGOGASTRODUODENOSCOPY TRANSORAL DIAGNOSTIC 06/12/2014 EGD outpt [facility] HERNIA REPAIR HX 12/01/2011 TOTAL ABDOMINAL HYSTERECT [...] 2 DM - Controlled E11.9 Insulin: No 100Each 11 blood sugar diagnostic (BLOOD GLUCOSE TEST) [...] Brother Seizures Brother Coronary Artery Disease Brother PR REVIEW OF SYMPTOMS: The review of systems data was entered by the nurse and reviewed by vt Nursing Notes: Va Padilla LPN 02/16/2022 8:06 AM Signed REVIEW OF SYSTEMS: General: The patient notes fatigue, denies weight loss, denies weight gain, denies feeling hot, anddenies feelings of cold. Eyes: The patient denies [...] nourished, well hydrated in no acute distress. Thepatient is oriented to time, place, and person. [...] on the incision. If there is continued bleeding,the patient should contact our office immediately. The [...] plan Fabienne Howard PA-C documented in this encounterKing'S Daughters [facility] [place]12-07-2022 Nurse Note* Va Padilla LPN - 02/16/2022 8:04 AM EST REVIEW OF SYSTEMS: General: The patient notes fatigue, denies weight loss, denies weight gain, denies feeling hot, anddenies feelings of cold. Eyes: The patient denies [...] 2014 Va Padilla LPN documented in this encounterKing'S Daughters [facility] [place]12-06-2022 Instructions* Patient Instructions* Arcelia Garcia APRN.[facility] - 02/15/2022 11:[address] Lung Screen Results The CT scan that you will have done today will show if you have any nodules (small spots) in your lungs that are suspicious for cancer. Around 90% of the patients who have this scan done are found tohave at least one nodule. Most nodules are [...] receive this result. Lung Cancer Screening hotline: [phone] Lung Cancer Screening [phone] Billing Questions: or [email or web address] Lung Cancer Screening Team: Fabienne Mcnair CNP; Bossman Garcia CNP; Colette Cornejo CNP; Elisa Lord CNP, SELVIN LevinC: [phone] Josemanuel Swanson PA-C Cigarette Logs : Record [...] Snacking on crunchy, nutrient dense, low calorie foodssuch as chopped peppers, celery, or carrots can be extremely helpful. Using cinnamon sticks, plastic straws, and sugarless gum/ candy are also excellent oral substitutes. Phone [phone] ([phone]) as additional resource. documented in this encounterKing'S [facility] [place]12-06-2022 History of Present illness Narrative* Arcelia Garcia APRN.LICENSED PROSTHETIST - 02/15/2022 11:10 AM EST Images from the original note were not [...] screening. Here with daughter who assisted with ghanaian translation Respiratory symptoms include: SOB: Yes with [...] neb/rescue inhaler. Follows with general pulmonology at [facility]. Fever/Chills: No Recent Respiratory Infection: No Unintentional [...] 50% of waking hrs. Modified Medical Research [place] Dyspnea Scale (MMRC) On level ground I [...] back pain 05/27/2014 Work injury 2006 Depression [facility] Diabetes mellitus (HCC) Disc slipped disc in back Fracture of right ankle Head injury Helicobacter pylori infection 09/12/2016 Hernia, hiatal Hyperglycemia 2010 Insomnia JOSSELIN (obstructive sleep apnea) 02/25/2019 Post-traumatic headache 01/16/2014 Postmenopausal Prediabetes 04/08/2019 PTSD (post-traumatic stress disorder) Tobacco use PAST SURGICAL HISTORY Procedure Laterality Date APPENDECTOMY 2012 [place] SECTION HX 1980 x 2 CHOLECYSTECTOMY 1989 COLONOSCOPY 01/10/2018 Random bx neg. internal hemorrhoids. lax anal tone. Gi[facility]anna in [facility] COLONOSCOPY FLX DX W/COLLJ SPEC WHEN PFRMD 06/12/2014 Colonoscopy out pt [facility] EGD 04/10/2018 Hpylori negative - Joseliney in [facility] ESOPHAGOGASTRODUODENOSCOPY TRANSORAL DIAGNOSTIC 06/12/2014 EGD outpt [facility] HERNIA REPAIR HX 12/01/2011 TOTAL ABDOMINAL HYSTERECT W/WO RMVL TUBE OVARY 1980 fibroid FAMILY HISTORY Problem Relation Age of Onset Heart Mother 70 Diabetes Mother Hypertension Mother Asthma Mother Hypertension Father Diabetes Father Colon Cancer Father in his seventies Asthma Sister Asthma Brother Seizures Brother Coronary Artery Disease Brother PR albuterol (PROVENTIL) 2.5 mg /3 mL (0.083 [...] by mouth daily at bedtime. [facility]. FLUoxetine (PROZAC) 20 mg [...] Function Testing: SPIROMETRY WITH DILATOR IF OBSTRUCTED ([id number]) - ordered on 10/18/18 [facility] [address] [place] [address] Test Date: 2018-10-18 Pat Name: JENNIFER MCMULLEN Department: Room: Gender: Female County Attorney: : 1960 Requested By: Order Number: [id number] Reading MD: Zack Walker Interpretive Statements ATS [...] 7:37:30 EDT by Zack Walker [facility] [address] [place], [place] [address] PFT Lab Report Name: JENNIFER RAMIREZ ID: [id number] Date: 10/18/18 Physician: Genaro JACK Age: 57 Height(in): 60.0 Weight(lb): 234 Gender: Female Race: Diagnosis: Medication Set 1: Dyspnea Rest: No Dyspnea Exercise: No Cough: No Persistent: No Productive (cc): Smoker: No How Long: Stopped: Cigarettes: No County Attorney: Suha Dodson RCP Temp: 26 PBar: 734 PF Reference: ######## Spirometry Hb: gm/dL Ref Pre Pre Post Post Post Enedelia % Ref Enedelia % Ref % Chg FVC Liters 2.94 1.64 56 FEV1 Liters 2.30 1.33 58 FEV1/FVC % 79 81 XNC68-82% L/sec 2.33 1.49 64 GsfPMG91-57 L/sec 2.50 1.49 60 PEF L/sec 5.92 4.11 69 TGT375% Sec 6.26 MVV L/min 92 f BPM [...] year risk for lung cancer: 1.4 Source: [employer] https://[email or web address]/[email or web address] I have determined that the patient is eligible for a low dose CT based on age, absence of signs or symptoms of lung cancer, and total pack years: Yes. The patient and I engaged in shared decision making, including the use of one or more decision aids, to include benefits, harms, follow-up diagnostic testing, over-diagnosis, false positive rate, andtotal radiation exposure. The patient understands and feels comfortable with it: Yes. The patient was counseled on the importance of adherence to annual LDCT lung cancer screening, impact of comorbidities and ability or willingness to undergo diagnosis and treatment. The patient understands and feels comfortable with it:Yes. 2. Nicotine dependence: The patient was counseled on the importance of smoking cessation if currentsmoker and, if appropriate, offered additional tobacco cessation [...] Snacking on crunchy, nutrient dense, low calorie foodssuch as chopped peppers, celery, or carrots can be extremely helpful. Using cinnamon sticks, plastic straws, and sugarless gum/ candy are also excellent oral substitutes. Phone [phone] ([phone]) as additional resource. The medical conditions adversely affected by cigarette use include:Diabetes. The patient is currently not ready to quit. I personally spent 6 minutes in counseling. The time spent in smoking cessation counseling is exclusive of any other counseling during this visit. I spent a total of 30 minutes on the date of the service which included preparing to see the patient, [id number] patient care, completing clinical documentation, obtaining and/or reviewing separately obtained history, counseling and educating the patient/family/caregiver, ordering medications, manjula ts, or procedures, and communicating results to the patient/family/caregiver. Arcelia Garcia APRN.RIGO NPI #: February 15, 2022 11:11 AM documented in this encounterKing'S [facility] [place]12-02-2022 History of Present illness Narrative* Leonid Rice MD - 02/11/2022 10:14 PM EST This note was created using [employer]. Subjective Jennifer Mcmullen is a 61 year old female. She noted a sore lump on her lower mid abdomen 5 days ago. This was tender, but with no drainage. She was planning to travel for [place] and was interested in having this drained [...] Complication, Without Long-Term Current Use of Insulin ([facility]) Current Outpatient Medications Medication Sig albuterol (PROVENTIL) [...] CLINIC Leonid Rice MD documented in this encounterKing'S [facility] [place]10-21-2022 History of Present illness Narrative* Marianna Easley, LAUNDRY MACHINE OPERATOR.LICENSED PROSTHETIST - 12/31/2021 1:48 PM EDT CC: Patient presents with: Follow Up HPI [...] without long-term current use of insulin (HCC) Home blood sugar readings: daily, average around [...] back pain 05/27/2014 Work injury 2006 Depression [facility] Diabetes mellitus (HCC) Disc slipped disc [...] internal hemorrhoids. lax anal tone. Giovanna in [facility] COLONOSCOPY FLX DX W/COLLJ SPEC WHEN PFRMD 06/12/2014 Colonoscopy out pt [facility] EGD 04/10/2018 Hpylori negative - Giovanna in [facility] ESOPHAGOGASTRODUODENOSCOPY TRANSORAL DIAGNOSTIC 06/12/2014 EGD outpt [facility] HERNIA REPAIR HX 12/01/2011 TOTAL ABDOMINAL HYSTERECT [...] Brother Seizures Brother Coronary Artery Disease Brother PR Social History Tobacco Use Smoking status: Every [...] plan. Marianna Easley APRN.CNP documented in this encounterKing'S [facility]aughters [facility] [place]09-19-2022 History of Present illness Narrative* Rachel Johnson RT(R) - 11/29/2021 2:50 PM EDT Radiology Service Progress Note PATIENT NAME: Jennifer Mcmullen DATE OF SERVICE: November 29, 2021 TIME: 2:42 PM PATIENT IDENTITY VERIFICATION COMPLETED USING TWO (2) IDENTIFIERS: Name and Date of confirmedby patient verbally. FALL SCREENING: Has the patient [...] 29, 2021 2:42 PM documented in this encounterKing'S [facility]aughters [facility] [place]09-19-2022 Instructions* Patient Instructions* Marianna Easley APRN.LICENSED PROSTHETIST - 11/29/2021 2:34 PM EDT HOME INSTRUCTIONS FOR MANAGEMENT OF CONSTIPATION NON-MEDICATION MEASURES: 1. Increase your intake of fluids daily. Try to include 8 - 8 ounce glasses per day. Sip on fluids throughout the day. 2. Add more fiber to your diet. The recommended daily amount of fiber is 20 to 35 grams. If you areincreasing your fiber intake do so slowly to [...] above 100.5, rigid/hard abdomen. documented in this encounterKing'S [facility]aughters [facility] [place]09-19-2022 History of Present illness Narrative* Marianna Easley APRN.CNP - 11/29/2021 2:28 PM EDT CC: Patient presents with: Abdominal Pain Constipation [...] was described as butterfield, hard, and small. Statesshe last passed gas last night. She denies any difficulty in urinating, burning, frequency, or blood in her urine. No recent fever, chills, nausea or vomiting. Does endorse a foul taste in her mouth when she eats. No recent sick contacts. No change in eating habits and eats fairly healthy. States she drinks a cupof coffee in the morning and some water [...] back pain 05/27/2014 Work injury 2006 Depression [facility] Diabetes mellitus (HCC) Disc slipped disc [...] internal hemorrhoids. lax anal tone. Giovanna in [facility] COLONOSCOPY FLX DX W/COLLJ SPEC WHEN PFRMD 06/12/2014 Colonoscopy out pt [facility] EGD 04/10/2018 Hpylori negative - Giovanna in [facility] ESOPHAGOGASTRODUODENOSCOPY TRANSORAL DIAGNOSTIC 06/12/2014 EGD outpt [facility] HERNIA REPAIR HX 12/01/2011 TOTAL ABDOMINAL HYSTERECT [...] Brother Seizures Brother Coronary Artery Disease Brother PR Social History Tobacco Use Smoking status: Every [...] (HCC) - ICD9: 250.00, ICD10: E11.9 - LANCETS refilled - BLOOD GLUCOSE TEST STRIPS refilled Prescription instructions reviewed with patient as applicable. Potential red flag symptoms discussed with the patient. Reviewed appropriate action plan to take if red flag symptoms occur. Patient agreeable to treatment plan. Marianna Easley APRN.CNP documented in this encounterKing'S [facility]aughters [facility] [place]09-03-2022 History of Present illness Narrative* Terell Joseph MD - 11/13/2021 3:24 PM EDT Patient presents with: Fatigue: Weak, dizziness, fatigue [...] back pain 05/27/2014 Work injury 2006 Depression [facility] Diabetes mellitus ([facility]) Disc slipped disc in back [...] by mouth daily at bedtime. [facility]. FLUoxetine (PROZAC) 20 mg [...] kg (219 lb 9.6 oz) SpO2 97% BMI42.89 kg/m PHYSICAL EXAM: GEN: Pleasant, in no [...] in the emergency room. Report sent to [facility] by ER passport. Terell Joseph MD documented in this encounterKing'S Daughters [facility] [place]08-22-2022 Miscellaneous Notes* Telephone Encounter - Sanam Aragon ANN - 11/01/2021 3:57 PM EDT Patient has been identified by name and [...] Please advise. Thank you. Sanam Aragon LPN * Telephone Encounter - Chayo Soto Pss - 11/01/2021 1:22 PM EDT Pharmacy verified in Epic Patient has been identified by name and [...] (216 lb 6.4 oz) Please advise. Chayo Soto Pss documented in this encounterKing'S Daughters [facility] [place]08-04-2022 Miscellaneous Notes* Telephone Encounter - Sugar Zuñiga RN - 10/14/2021 2:11 PM EDT Patient returned call and given provider's message below and patient verbalized understanding. Nena Zuñiga RN * Telephone Encounter - Sanam Aragon LPN - 10/14/2021 1:39 PM EDT Daughter/Shanthi Thompson notified of below results/recommendations. Sanam Aragon LPN * Telephone Encounter - Sanam Aragon LPN - 10/14/2021 1:36 PM EDT ----- Message from Leonid Rice MD sent at 10/13/2021 11:36 PM EDT ----- Labs are okay. Diabetes and lipids controlled. Mild elevation of one liver enzyme consistent with fatty liver noted on ultrasound. Low carb diet and weight loss recommended for fatty liver. documented in this encounterKing'S [facility]aughters [facility] [place]07-27-2022 History of Present illness Narrative* RT Jabier(R) - 10/06/2021 1:45 PM EDT Radiology Service Progress Note PATIENT NAME: Jennifer Mcmullen DATE OF SERVICE: October 06, 2021 TIME: 2:06 PM PATIENT IDENTITY VERIFICATION COMPLETED USING TWO (2) IDENTIFIERS: Name and Date of confirmedby patient verbally. FALL SCREENING: Has the patient [...] 06, 2021 2:06 PM documented in this encounterKing'S [facility]aughters [facility] [place]07-21-2022 Instructions* Patient Instructions* Leonid Riec MD - 09/30/2021 2:20 PM EDT DO ALL LABS TODAY. PATIENT FASTING. (CBC, CMP, LIPIDS, A1C, URINE ALBUMIN) SCHEDULE ULTRASOUND RIGHT UPPER QUADRANT ORDERED IN March. documented in this encounterKing'S [facility]aughters [facility] [place]07-21-2022 History of Present illness Narrative* Leonid Rice MD - 09/30/2021 2:06 PM EDT This note was created using [employer]. Subjective Jennifer Mcmullen is a 60 year [...] Complication, Without Long-Term Current Use of Insulin ([facility]) Current Outpatient Medications Medication Sig budesonide-formoterol (SYMBICORT) 160-4.5 mcg/actuation inhaler Inhale 2 Puffs as instructed twice daily. buPROPion SR (WELLBUTRIN SR) 150 mg 12 hr tablet Take 1 tablet by mouth twice daily. topiramate (TOPAMAX) 50 mg tablet Take 1 tablet by mouth twice daily. traZODone (DESYREL) 100 mg tablet Take 2 tablets by mouth daily at bedtime. [facility]. FLUoxetine (PROZAC) 20 mg [...] vaccinations. Leonid Rice MD documented in this encounterKing'S [facility]aughters [facility] [place]06-21-2022 Miscellaneous Notes* Telephone Encounter - Dionna Cervantes Adm Asst - 08/31/2021 8:52 AM EDT Order for PAP supplies faxed to [facility]. Dionna Cervantes Adm Asst documented in this encounterKing'S Daughters [facility] [place]05-31-2022 Miscellaneous Notes* Telephone Encounter - Dana Hensley MD - 08/10/2021 6:07 PM EDT I last Jennifer Mar 2019. Please let pt know refill requests should go to her genetics physician that she now sees in [place]. She saw Dr Colette Quarles. documented in this encounterKing'S Daughters [facility] [place]05-27-2021 History of Past illness Narrative* Problem Noted [...] of this encounter (statuses as of 08/10/2021) [facility] [place] History of Past illness Narrative* Problem Noted [...] of this encounter (statuses as of 08/31/2021) [facility] [place] History of Past illness Narrative* Problem Noted [...] of this encounter (statuses as of 09/30/2021) [facility] [place] History of Past illness Narrative* Problem Noted [...] of this encounter (statuses as of 10/07/2021) [facility] [place] History of Past illness Narrative* Problem Noted [...] of this encounter (statuses as of 10/14/2021) [facility] [place] History of Past illness Narrative* Problem Noted [...] of this encounter (statuses as of 11/01/2021) [facility] [place] History of Past illness Narrative* Problem Noted [...] of this encounter (statuses as of 11/13/2021) [facility] [place] History of Past illness Narrative* Problem Noted [...] of this encounter (statuses as of 11/29/2021) [facility] [place] History of Past illness Narrative* Problem Noted [...] of this encounter (statuses as of 12/31/2021) [facility] [place] of Past illness Narrative* Problem Noted [...] of this encounter (statuses as of 02/12/2022) [facility] [place] of Past illness Narrative* Problem Noted [...] of this encounter (statuses as of 02/15/2022) [facility] [place] of Past illness Narrative* Problem Noted [...] of this encounter (statuses as of 02/19/2022) [facility] [place] of Past illness Narrative* Problem Noted [...] of this encounter (statuses as of 04/01/2022) [facility] [place] of Past illness Narrative* Problem Noted [...] of this encounter (statuses as of 04/01/2022) [facility] [place] of Past illness Narrative* Problem Noted [...] of this encounter (statuses as of 04/07/2022) [facility] [place] of Past illness Narrative* Problem Noted [...] of this encounter (statuses as of 05/25/2022) [facility] [place] of Past illness Narrative* Problem Noted [...] of this encounter (statuses as of 05/31/2022) [facility] [place] of Past illness Narrative* Problem Noted [...] of this encounter (statuses as of 06/08/2022) [facility] [place] of Past illness Narrative* Problem Noted [...] of this encounter (statuses as of 06/13/2022) [facility] [place] of Past illness Narrative* Problem Noted [...] of this encounter (statuses as of 07/27/2022) [facility] [place] of Past illness Narrative* Problem Noted [...] of this encounter (statuses as of 11/18/2022) [facility] [place] of Past illness Narrative* Problem Noted [...] of this encounter (statuses as of 11/25/2022) [facility] [place] of Past illness Narrative* Problem Noted [...] of this encounter (statuses as of 11/28/2022) [facility] [place] of Past illness Narrative* Problem Noted [...] of this encounter (statuses as of 12/04/2022) [facility] [place] of Past illness Narrative* Problem Noted [...] of this encounter (statuses as of 12/16/2022) [facility] [place] of [facility] illness Narrative* Problem Noted [...] of this encounter (statuses as of 01/16/2023) [facility] [place] of Past illness Narrative* Problem Noted [...] of this encounter (statuses as of 01/27/2023) [facility] [place] of [facility] illness Narrative* Problem Noted [...] of this encounter (statuses as of 06/02/2023) [facility] [place] of Past illness Narrative* Problem Noted [...] of this encounter (statuses as of 06/03/2023) [facility] [place] [facility] No data available for this section [facility] Evaluation note* Diagnosis Moderate persistent asthma, unspecified whether complicated documented in this encounter [facility] [place] [place] [facility]* Diagnosis Malaise- Primary Other malaise and fatigue Epigastric abdominal pain Abdominal pain, epigastric Dysgeusia Disturbances of sensation of smell and taste Type 2 diabetes mellitus without complication, without long-term current use of insulin (HCC) Severe episode of recurrent major depressive disorder, without psychotic features (HCC) documented in this encounter [facility] [place] [place] [facility]* Diagnosis Epigastric abdominal pain Abdominal pain, epigastric documented in this encounter [facility] note* Diagnosis Chronic post-traumatic headache, not intractable Chronic post-traumatic headache documented in this encounter [facility] [place] [place] [facility]* Diagnosis Syncope, unspecified syncope type- Primary documented in [facility] encounter [facility] [place] [facility]* Diagnosis Lower abdominal pain- Primary Abdominal pain, other specified site Constipation, unspecified constipation type Type 2 diabetes mellitus without complication, without long-term current use of insulin (HCC) documented [facility] this encounter [facility] [place] [facility]* Diagnosis Asthma with COPD (HCC)- Primary [...] recurrent major depressive disorder, without psychotic features ([facility]) Anxiety Anxiety state, unspecified [facility] [place] [facility]* Diagnosis Sebaceous cyst- Primary Type 2 diabetes mellitus without complication, without long-term current use of insulin ([facility]) Tobacco use Tobacco use disorder documented in this encounter [facility] noteNo assessment information [facility] Work Phone: Evaluation note* Diagnosis Encounter for screening for lung cancer- Primary Smoker Tobacco use disorder [facility] [place] [facility]* Diagnosis Abscess of skin of abdomen- Primary Cellulitis and abscess of trunk documented in this encounter [facility] note* Diagnosis Smoker Tobacco use disorder Encounter for screening for lung cancer documented [facility] [place] [facility]* Diagnosis Chronic post-traumatic headache, not intractable Chronic post-traumatic headache [facility] [place] [facility]* Diagnosis Chronic left shoulder pain- Primary Pain in joint, shoulder region Asthma with COPD (HCC) Chronic obstructive asthma, unspecified Type 2 diabetes mellitus without complication, without long-term current use of insulin (HCC) Encounter for screening mammogram for malignant neoplasm of breast Other screening mammogram Constipation, unspecified constipation type [facility] [place] [facility]* Diagnosis Hyperkalemia- Primary Hyperpotassemia documented [facility] [place] [facility]* Diagnosis Left hand pain- Primary Pain in limb [facility] [place] [facility]* Diagnosis Left hand pain- Primary Pain in limb Need for influenza vaccination Need for prophylactic vaccination and inoculation against influenza [facility] [place] [facility]* Diagnosis Moderate persistent asthma, unspecified whether complicated documented [facility] [place] [facility]* Diagnosis Skin yeast infection- Primary Candidiasis of skin and nails documented in this encounter [facility] note* Diagnosis Encounter for screening mammogram for malignant neoplasm of breast Other screening mammogram [facility] [place] [facility]* Diagnosis Chronic left shoulder pain Pain in joint, shoulder region documented [facility] [place] [facility]* Diagnosis Chronic post-traumatic headache, not intractable Chronic post-traumatic headache documented [facility] this [facility] [place] [facility]* Diagnosis Encounter for screening mammogram for malignant neoplasm of breast- Primary Other screening mammogram documented [facility] this [facility] [place] [facility]* Diagnosis Type 2 diabetes mellitus without complication, without long-term current use of insulin (HCC)- Primary Left hand pain Pain in limb Moderate persistent asthma, unspecified whether complicated Obesity, Class III, BMI >= 40 Morbid obesity Screening for colon cancer Special screening for malignant neoplasms, colon Encounter for immunization Need for other specified prophylactic vaccination against single bacterial disease documented in this encounter [facility] note* Diagnosis Encounter for screening mammogram for malignant neoplasm of breast Other screening mammogram documented [facility] [place] [facility]* Diagnosis Abnormal mammogram of left breast- Primary documented in this [facility] [place] [facility]* Diagnosis Encounter for screening colonoscopy- Primary Special screening for malignant neoplasms, colon Screening for colon cancer Special screening for malignant neoplasms, colon documented [facility] [place] [facility]* Diagnosis Abnormal mammogram of left breast- Primary documented in this [facility] [place] [facility]* Diagnosis Abnormal mammogram of left breast documented [facility] [place] [facility]* Diagnosis Abnormal mammogram of left breast documented [facility] [place] [facility]* Diagnosis Anxiety- Primary Anxiety state, unspecified [...] complication, without long-term current use of insulin ([facility]) JOSSELIN (obstructive sleep apnea) Obstructive sleep apnea (adult) (pediatric) Encounter for immunization Need for other specified prophylactic vaccination against single bacterial disease Tobacco use Tobacco use disorder Obesity, Class III, BMI >= 40 Morbid obesity Severe episode of recurrent major depressive disorder, without psychotic features ([facility]) Anxiety Anxiety state, unspecified Left hand pain Pain in limb documented [facility] this [facility] [place] [facility]* Diagnosis Anxiety- Primary Anxiety state, unspecified [...] complication, without long-term current use of insulin ([facility]) Encounter for screening for lung [...] accident, subsequent encounter documented [facility]* Diagnosis Anxiety- Primary Anxiety state, unspecified [...] complication, without long-term current use of insulin ([facility]) JOSSELIN (obstructive sleep apnea) Obstructive [...] back pain laterality documented in this [facility] [place] [facility]* Diagnosis Anxiety- Primary Anxiety state, unspecified [...] neoplasm of lung [facility]* Diagnosis Anxiety- Primary Anxiety state, unspecified [...] mention of status migrainosus Asthma with COPD ([facility])- Primary Chronic obstructive asthma, unspecified Type 2 diabetes mellitus without complication, without long-term current use of insulin ([facility]) JOSSELIN (obstructive sleep apnea) Obstructive [...] joint, lower leg documented [facility] [place] [facility]* Diagnosis Anxiety- Primary Anxiety state, unspecified [...] Constipation, unspecified constipation type Asthma with COPD (HCC)- Primary Chronic obstructive [...] Anxiety state, unspecified documented [facility] [place] [facility]* Diagnosis Anxiety- Primary Anxiety state, unspecified [...] joint, lower leg documented in this encounter [facility] note* Diagnosis Anxiety- Primary Anxiety [...] neoplasm of lung documented in this [facility] [place] [facility]* Diagnosis Anxiety- Primary Anxiety state, unspecified [...] complication, without long-term current use of insulin ([facility]) JOSSELIN (obstructive sleep apnea) Obstructive [...] Tobacco use disorder [facility]* Diagnosis Anxiety- Primary Anxiety state, unspecified [...] complication, without long-term current use of insulin ([facility]) JOSSELIN (obstructive sleep apnea) Obstructive [...] joint, lower leg documented [facility] this [facility] [place] [facility]* Diagnosis Anxiety- Primary Anxiety state, unspecified [...] Nausea Nausea alone documented in this encounter [facility] note* Diagnosis Anxiety- Primary Anxiety [...] type, initial encounter documented in this encounter [facility] note* Diagnosis Anxiety- Primary Anxiety [...] Nausea Nausea alone documented [facility] this [facility] Author Modesta Caro [facility] Note Date/Time August 25, 2024 9:34 pm [facility] Medical Records Department [address] [place] [address] H&P Exam - Hospitalist 08/25/242031 MR#: [id number] Acct: [id number] Name: JENNIFER RAMIREZ Rep #:[id number] : 1960 63 From: Modesta Caro DO PCP: Dr. Leonid Rice MD Status:A DM SO Location: HI3 [id number] HPI - General General Date of Admission: 08/25/24 Date of Service: 08/25/24 Chief Complaint: Cough and shortness of breath HPI Narrative JENNIFER MCMULLEN, is a 63 F who presented to the emergency department at [facility] on 08/25/2024 due to chief complaint of cough and shortness of breath. Patient has a history of COPD and asthma and currently still smokes tobacco. She states her father and then her brother was founddead in his home. She has been traveling back and forth from [place] takingcare of family affairs and the . She reported that for about a week prior to presentation she has had progressively worsening shortness of breath and intermittent fevers, cough, and intermittent clear sputum production. Giventhe fact that she has not been clinically improving she came to the emergency department. She does not wear oxygen at baseline but is on multiple inhalers consistent with COPD diagnosis. Patient states she is still having some congestion, decreased p.o. intake due to lack of appetite, and myalgias. Vital signs on presentation showed a temperature of 99.7, heart rate was 100, respiratory rate was 22, blood pressure was 149/97 and pulse ox is 98% on room air. CBC is unremarkable other than a monocytosis at 10.7%. Chemistry panel isunremarkable. Lipase is negative at 8. Chest x-ray showed mild pulmonary vascular congestion but no focal infiltrates and CTA of the chest was performed and shows no acute processes. She was given several rounds of nebulizers and IV Solu-Medrol in the emergency department however she remained tachypneic, mildly tachycardic, and dyspneic. She did not require oxygen at rest or with exertion but given her symptoms she will be admitted as observation with anticipated hospitalization less than 2 midnights. [facility] Medical History Tobacco abuse GERD (gastroesophageal reflux disease) Asthma Depression Anxiety Home Medications ?Medication ?Instructions ?Recorded ?Last Taken ?Type fluoxetine 20 mg capsule 20 mg PO QHS 03/24/15 History topiramate 25 mg tablet (Topamax) 25 mg PO QHS 6 03/23/15 History trazodone 100 mg tablet 200 mg PO QHS 03/24/1503/23 History albuterol sulfate 90 mcg/actuation 2 puff inhalation Q 4H PRN PRN Sob 03/25/15 Unknown Rx aerosol inhaler (ProAir HFA) &/Or Wheezing ##1 budesonide 180 mcg/actuation 1 puff inhalation BID ##1 03/25/15 Unknown Rx breath activated powder inhaler (Pulmicort Flexhaler) Allergy/AdvReac Type Severity Reaction Status Date / Time latex Allergy Rash Verified 08/25/24 15:40 Family History Mother Myocardial infarction CVA (cerebral vascular accident) Diabetes Brother Asthma Myocardial infarction Father Hypertension Surgical History History of umbilical hernia repair History of cholecystectomy History of appendectomy Social History household members: none housing: house Smoking Status: Current every day smoker tobacco type: cigarettes alcohol intake: never what type of physical activity do you participate in: none do you feel safe at home: Yes ROS Constitutional Constitutional: Reports anorexia, chills, fatigue and malaise; Denies change in weight, fever(s), night sweats, weakness or other Eyes Eyes: Reports other Details: Eye redness ; Denies blurry vision, change in eye color, change in vision, discharge from eye(s), double vision, erythema, eye pain or loss of vision ENT HEENT: Reports nasal congestion; Denies abnormal hearing, dysphagia, ear pain, epistaxis, headache(s), hearing loss, nasal discharge, post nasal drip, sinus pressure, sore throat or other Cardiovascular Cardiovascular: Reports dyspnea on exertion; Denies chest pain, claudication, edema, lightheadedness, orthopnea, palpitations, paroxysmal nocturnal dyspnea, rapid heart rate, syncope or other Respiratory/Chest Respiratory/Chest: Reports cough, dyspnea, shortness of breath at rest, shortness of breath with exertion and wheezing; Denies excessive phlegm production, hemoptysis, productive cough or other Gastrointestinal Gastrointestinal: Denies abdominal pain, coffee ground emesis, constipation, diarrhea, dyspepsia, hematemesis, hematochezia, loose stools, melena, nausea, vomiting or other Genitourinary Genitourinary: Denies burning urination, difficulty urinating, dysuria, hematuria, nocturia, urinary frequency, urinary hesitancy, urinary incontinence,urinary urgency or other Musculoskeletal Musculoskeletal: Reports myalgias; Denies arthralgias, back pain, joint pain, joint stiffness, joint swelling, neck pain or other Neurologic Neurologic: Denies abnormal gait, abnormal speech, confusion, disequilibrium, dizziness, focal weakness, headache(s), numbness, paresthesias, seizure-like activity, seizures, syncope, tingling, tremor(s) or other Psychiatric Psychiatric: Reports anxiety and depression; Denies homicidal ideation, suicidalideation or other Endocrine Endocrinology: Denies change in body appearance, cold intolerance, excessive sweating, heat intolerance, polydipsia, polyuria or other Hematologic/Lymphatic Hematologic/Lymphatic: Denies anemia, easy bleeding, easy bruising, lymphadenopathy or other Allergic/Immunologic Allergic/Immunologic: Reports asthma; Denies rhinitis, hives, eczemia or other Vital Signs Vital Signs Vital Signs: 08/25/24 15:37 08/25/24 15:40 08/25/24 15:55 Temperature 99.7 F H 99.7 F H Temperature Source Oral Oral Pulse Rate 100 100 Respiratory Rate 22 H 22 H Respiratory Effort Short of Breath Labored Respiratory Depth Shallow Respiratory Pattern Tachypnea Blood Pressure 149/97 H 149/97 H Blood Pressure Mean 114 114 Pulse Ox 98 98 Oxygen Delivery Method Room Air Room Air Room Air 08/25/24 16:41 08/25/24 17:00 08/25/24 17:06 Temperature 99.7 F H 99.2 F H Temperature Source Oral Oral Pulse Rate 86 87 88 Respiratory Rate 25 H 26 H 28 H Respiratory Effort Respiratory Depth Respiratory Pattern Tachypnea Blood Pressure 163/86 H 148/93 H Blood Pressure Mean 111 111 Pulse Ox 96 95 Oxygen Delivery Method Room Air Room Air 08/25/24 17:45 08/25/24 18:00 08/25/24 19:00 Temperature 99.2 F H 99.3 F H Temperature Source Oral Oral Pulse Rate 89 98 99 Respiratory Rate 16 22 H 22 H Respiratory Effort Respiratory Depth Respiratory Pattern Blood Pressure 135/79 H 152/73 H 142/56 H Blood Pressure Mean 97 99 84 Pulse Ox 94 95 96 Oxygen Delivery Method Room Air Room Air Room Air 08/25/24 19:00 08/25/24 20:29 Temperature 99.3 F H Temperature Source Pulse Rate 99 93 Respiratory Rate 21 H 25 H Respiratory Effort Respiratory Depth Respiratory Pattern Blood Pressure 142/56 H 156/63 H Blood Pressure Mean 84 94 Pulse Ox 97 95 Oxygen Delivery Method Room Air Weight Weight: 95.481 kg Body Mass Index (BMI) 41.1 Physical Exam Const alert, oriented x3, no apparent distress and well nourished; Negative for average body habitus or healthy appearing Constitutional Narrative: Obese, upper middle-aged, female, lying in bed, appears comfortable, no signs of respiratory distress but she is a bit tachypneic, does not appear toxic General Appearance: cooperative HEENT normocephalic, head/scalp atraumatic, hearing grossly normal bilaterally and moist oral mucous membranes HEENT Narrative: Mallampati 3, no thrush Eyes conjunctivae normal Eyes Narrative: Injected sclera bilaterally Neck no lymphadenopathy and supple Neck Narrative: Trachea midline, neck is short and thick Resp No normal respiratory effort, no retractions, no use of accessory muscles and Noclear to auscultation bilaterally Resp Narrative: Very coarse diffuse scattered end expiratory wheezes, tachypnea with no retractions or accessory muscle use Auscultation: wheezes; Negative for crackles or rhonchi Cardio regular rhythm, S1 normal heart sound, S2 normal heart sound, no rub, no gallopsand no clicks; Negative for regular rate or no murmurs Cardio Narrative: Mild tachycardia, 3 out of 6 systolic murmur loudest at right upper sternal border GI normal to inspection, nondistended, normoactive bowel sounds, soft to palpation and non-tender GI Narrative: Protuberant abdomen Extremity no clubbing, cyanosis or edema Extremity Narrative: 2+ pedal and radial pulses Neuro oriented x3, moves all extremities and no focal motor deficits Speech: speech normal Psych Psych Narrative: Affect is flat mood seems depressed Results Lab / Micro Data 08/25/24 15:53 08/25/24 15:53 Labs: Laboratory Results - last 24 hr 08/25/24 15:53: WBC 8.9, RBC 4.93, Hgb 14.4, Hct 44.2, MCV 89.7, MCH 29.2, MCHC 32.6, RDW Std Deviation 43.5, RDW Coeff of Bhupendra 13.2, Plt Count 223, MPV 11.8, Immature Gran % (Auto) 0.500, Neut % (Auto) 57.1, Lymph % (Auto) 27.7, Todd % (Auto) 10.7 H, Eos % (Auto) 3.5, Baso % (Auto) 0.5, Absolute Neuts (auto) 5.1, Absolute Lymphs (auto) 2.45, Nucleated RBC % 0, Sodium 142, Potassium 3.8, Chloride 106, Carbon Dioxide 22.2, Anion Gap 13, BUN 10, Creatinine 0.83, Estim Creat Clear Calc 73.59, Est GFR (MDRD) Non-Af 80, BUN/Creatinine Ratio 12.6, Glucose 107 H, Calcium 9.4, Total Bilirubin 0.34, Direct Bilirubin 0.10, AST 25, ALT 16, Alkaline Phosphatase 148 H, Total Protein 7.3, Albumin 4.0, Globulin 3.3, Lipase 8 L Micro: Microbiology 08/25/24 17:48 Mucosa - Nose SARS-CoV-2, Influenza & RSV (PCR) - Final Imaging Radiology Impression Chest X-Ray 08/25/24 16:55 IMPRESSION: Mild pulmonary vascular congestion. No focal consolidations. Reading Location: [id number] Chest CTA 08/25/24 17:40 IMPRESSION: No acute process. Reading Location: [facility] Assessment & Plan Assessment/Plan (1) Acute dyspnea: (2) Viral pneumonia: (3) Tachypnea: (4) Tobacco abuse: (5) COPD with acute exacerbation: PLAN: Plan Dyspnea, tachypnea, and Wheezing with COPD exacerbation 2/2 Viral Pneumonia - Patient not hypoxic and requiring oxygen at this point but is markedly tachypneic and having considerable wheezing therefore will admit as observation -Imaging is relatively unremarkable - Continue to monitor oxygen needs and would obtain ambulatory pulse ox prior todischarge - Check respiratory viral panel - COVID/flu/RSV is negative -While also getting give her check sputum culture - Start Solu-Medrol 40 every 8 - Scheduled and as needed nebulizers - Mucinex 1200 p.o. twice daily - I-S - Acapella COPD - Patient is not oxygen dependent at baseline - Will hold outpatient inhalers and restart at discharge - Recommend outpatient follow-up with pulmonary medicine - Patient would benefit from outpatient PFTs and 6-minute walk test GERD - Patient is currently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 isits Requested Visits Authorized [id number] Closed PCP Requested Referral 01/08/2024 01/07/2025 1 1 Chief Complaint and Reason for Visit Chief Complaint abd pain Chief Complaint chest pain Chief Complaint Admit Date ACUTE EXACERBATION OF COPD August 25 8:53pm Reason for Visit Admit Date Acute dyspnea August 25, 2024 8:53 pm Asthma exacerbation August 25, 2024 8:53 pm Tachypnea August 25, 2024 8:53 pm Viral pneumonia August 25, 2024 8:53 pm COPD with acute exacerbation August 25, 2024 8:53pm Tobacco abuse August 25, 2024 8:53 pm Chief Complaint Admit Date ACUTE EXACERBATION OF COPD August 25 8:53pm ACUTE EXACERBATION OF COPD August 26 11:31am ACUTE EXACERBATION OF COPD August 27 2:48pm Additional Source Comments INFORMATION SOURCE (unrecogn ized section and content) DATE CREATED AUTHOR 08/30/2017 [facility] DATE CREATED AUTHOR AUTHOR'S ORGANIZ ATION 09/01/2017 [facility] DATE CREATED AUTHOR AUTHOR'S ORGANIZ ATION 09/06/2017 [facility] DATE CREATED AUTHOR AUTHOR'S ORGANIZ ATION 02/19/2018 [facility] DATE CREATED AUTHOR AUTHOR'S ORGANIZ ATION 06/27/2018 [facility] DATE CREATED AUTHOR AUTHOR'S ORGANIZ ATION 07/20/2020 [facility] DATE CREATED AUTHOR AUTHOR'S ORGANIZ ATION 03/05/2023 [facility] ([place]) DATE CREATED AUTHOR AUTHOR'S ORGANIZ ATION 12/30/2023 [facility] DATE CREATED AUTHOR AUTHOR'S ORGANIZ ATION 01/26/2024 [facility] DATE CREATED AUTHOR AUTHOR'S ORGANIZ ATION 08/27/2024 [facility] Source Comments (unrecognize d section and content) In the event this informatio n is protected by the Federal Confidentiality of Alcohol and Drug Abuse Patient Records regulations: The Federal rules restrict any use of the information to criminally investigate or prosecute any alcohol or drug abuse patient.[facility] [place] the event this information is protected by the Federal Confidentiality of Alcohol and Drug Abuse Patient Records regulations: The Federal rules restrict any use of the information to criminally investigate or prosecute any alcohol or drug abuse patient.[facility] [place] the event this information is protected by the Federal Confidentiality of Alcohol and Drug Abuse Patient Records regulations: The Federal rules restrict any use of the information to criminally investigate or prosecute any alcohol or drug abuse patient.[facility] [place] the event this information is protected by the Federal Confidentiality of Alcohol and Drug Abuse Patient Records regulations: The Federal rules restrict any use of the information to criminally investigate or prosecute any alcohol or drug abuse patient.[facility] [place] the event this information is protected by the Federal Confidentiality of Alcohol and Drug Abuse Patient Records regulations: The Federal rules restrict any use of the information to criminally investigate or prosecute any alcohol or drug abuse patient.[facility] [place] the event this information is protected by the Federal Confidentiality of Alcohol and Drug Abuse Patient Records regulations: The Federal rules restrict any use of the information to criminally investigate or prosecute any alcohol or drug abuse patient.[facility] [place]In the event this information is protected by the Federal Confidentiality of Alcohol and Drug Abuse Patient Records regulations: The Federal rules restrict any use of the information to criminally investigate or prosecute any alcohol or drug abuse patient.[facility] [place]In the event this information is protected by the Federal Confidentiality of Alcohol and Drug Abuse Patient Records regulations: The Federal rules restrict any use of the information to criminally investigate or prosecute any alcohol or drug abuse patient.[facility] [place]In the event this information is protected by the Federal Confidentiality of Alcohol and Drug Abuse Patient Records regulations: The Federal rules restrict any use of the information to criminally investigate or prosecute any alcohol or drug abuse patient.[facility] [place]In the event this information is protected by the Federal Confidentiality of Alcohol and Drug Abuse Patient Records regulations: The Federal rules restrict any use of the information to criminally investigate or prosecute any alcohol or drug abuse patient.[facility] [place]In the event this information is protected by the Federal Confidentiality of Alcohol and Drug Abuse Patient Records regulations: The Federal rules restrict any use of the information to criminally investigate or prosecute any alcohol or drug abuse patient.[facility] [place]In the event this information is protected by the Federal Confidentiality of Alcohol and Drug Abuse Patient Records regulations: The Federal rules restrict any use of the information to criminally investigate or prosecute any alcohol or drug abuse patient.[facility] [place]In the event this information is protected by the Federal Confidentiality of Alcohol and Drug Abuse Patient Records regulations: The Federal rules restrict any use of the information to criminally investigate or prosecute any alcohol or drug abuse patient.[facility] [place]In the event this information is protected by the Federal Confidentiality of Alcohol and Drug Abuse Patient Records regulations: The Federal rules restrict any use of the information to criminally investigate or prosecute any alcohol or drug abuse patient.[facility] [place]In the event this information is protected by the Federal Confidentiality of Alcohol and Drug Abuse Patient Records regulations: The Federal rules restrict any use of the information to criminally investigate or prosecute any alcohol or drug abuse patient.[facility] [place]In the event this information is protected by the Federal Confidentiality of Alcohol and Drug Abuse Patient Records regulations: The Federal rules restrict any use of the information to criminally investigate or prosecute any alcohol or drug abuse patient.[facility] [place]In the event this information is protected by the Federal Confidentiality of Alcohol and Drug Abuse Patient Records regulations: The Federal rules restrict any use of the information to criminally investigate or prosecute any alcohol or drug abuse patient.[facility] [place]In the event this information is protected by the Federal Confidentiality of Alcohol and Drug Abuse Patient Records regulations: The Federal rules restrict any use of the information to criminally investigate or prosecute any alcohol or drug abuse patient.[facility] [place]In the event this information is protected by the Federal Confidentiality of Alcohol and Drug Abuse Patient Records regulations: The Federal rules restrict any use of the information to criminally investigate or prosecute any alcohol or drug abuse patient.[facility] [place]In the event this information is protected by the Federal Confidentiality of Alcohol and Drug Abuse Patient Records regulations: The Federal rules restrict any use of the information to criminally investigate or prosecute any alcohol or drug abuse patient.[facility] [place]In the event this information is protected by the Federal Confidentiality of Alcohol and Drug Abuse Patient Records regulations: The Federal rules restrict any use of the information to criminally investigate or prosecute any alcohol or drug abuse patient.[facility] [place]In the event this information is protected by the Federal Confidentiality of Alcohol and Drug Abuse Patient Records regulations: The Federal rules restrict any use of the information to criminally investigate or prosecute any alcohol or drug abuse patient.[facility] [place]In the event this information is protected by the Federal Confidentiality of Alcohol and Drug Abuse Patient Records regulations: The Federal rules restrict any use of the information to criminally investigate or prosecute any alcohol or drug abuse patient.[facility] [place]In the event this information is protected by the Federal Confidentiality of Alcohol and Drug Abuse Patient Records regulations: The Federal rules restrict any use of the information to criminally investigate or prosecute any alcohol or drug abuse patient.[facility] [place]In the event this information is protected by the Federal Confidentiality of Alcohol and Drug Abuse Patient Records regulations: The Federal rules restrict any use of the information to criminally investigate or prosecute any alcohol or drug abuse patient.[facility] [place]In the event this information is protected by the Federal Confidentiality of Alcohol and Drug Abuse Patient Records regulations: The Federal rules restrict any use of the information to criminally investigate or prosecute any alcohol or drug abuse patient.[facility] [place]In the event this information is protected by the Federal Confidentiality of Alcohol and Drug Abuse Patient Records regulations: The Federal rules restrict any use of the information to criminally investigate or prosecute any alcohol or drug abuse patient.[facility] [place]In the event this information is protected by the Federal Confidentiality of Alcohol and Drug Abuse Patient Records regulations: The Federal rules restrict any use of the information to criminally investigate or prosecute any alcohol or drug abuse patient.[facility] [place]In the event this information is protected by the Federal Confidentiality of Alcohol and Drug Abuse Patient Records regulations: The Federal rules restrict any use of the information to criminally investigate or prosecute any alcohol or drug abuse patient.[facility] [place]In the event this information is protected by the Federal Confidentiality of Alcohol and Drug Abuse Patient Records regulations: The Federal rules restrict any use of the information to criminally investigate or prosecute any alcohol or drug abuse patient.[facility] [place]In the event this information is protected by the Federal Confidentiality of Alcohol and Drug Abuse Patient Records regulations: The Federal rules restrict any use of the information to criminally investigate or prosecute any alcohol or drug abuse patient.[facility] [place]In the event this information is protected by the Federal Confidentiality of Alcohol and Drug Abuse Patient Records regulations: The Federal rules restrict any use of the information to criminally investigate or prosecute any alcohol or drug abuse patient.[facility] [place]In the event this information is protected by the Federal Confidentiality of Alcohol and Drug Abuse Patient Records regulations: The Federal rules restrict any use of the information to criminally investigate or prosecute any alcohol or drug abuse patient.[facility] [place]In the event this information is protected by the Federal Confidentiality of Alcohol and Drug Abuse Patient Records regulations: The Federal rules restrict any use of the information to criminally investigate or prosecute any alcohol or drug abuse patient.[facility] [place]In the event this information is protected by the Federal Confidentiality of Alcohol and Drug Abuse Patient Records regulations: The Federal rules restrict any use of the information to criminally investigate or prosecute any alcohol or drug abuse patient.[facility] [place]In the event this information is protected by the Federal Confidentiality of Alcohol and Drug Abuse Patient Records regulations: The Federal rules restrict any use of the information to criminally investigate or prosecute any alcohol or drug abuse patient.[facility] [place]In the event this information is protected by the Federal Confidentiality of Alcohol and Drug Abuse Patient Records regulations: The Federal rules restrict any use of the information to criminally investigate or prosecute any alcohol or drug abuse patient.[facility] [place]In the event this information is protected by the Federal Confidentiality of Alcohol and Drug Abuse Patient Records regulations: The Federal rules restrict any use of the information to criminally investigate or prosecute any alcohol or drug abuse patient.[facility] [place]In the event this information is protected by the Federal Confidentiality of Alcohol and Drug Abuse Patient Records regulations: The Federal rules restrict any use of the information to criminally investigate or prosecute any alcohol or drug abuse patient.[facility] [place]In the event this information is protected by the Federal Confidentiality of Alcohol and Drug Abuse Patient Records regulations: The Federal rules restrict any use of the information to criminally investigate or prosecute any alcohol or drug abuse patient.[facility] [place]In the event this information is protected by the Federal Confidentiality of Alcohol and Drug Abuse Patient Records regulations: The Federal rules restrict any use of the information to criminally investigate or prosecute any alcohol or drug abuse patient.[facility] [place]In the event this information is protected by the Federal Confidentiality of Alcohol and Drug Abuse Patient Records regulations: The Federal rules restrict any use of the information to criminally investigate or prosecute any alcohol or drug abuse patient.[facility] [place]In the event this information is protected by the Federal Confidentiality of Alcohol and Drug Abuse Patient Records regulations: The Federal rules restrict any use of the information to criminally investigate or prosecute any alcohol or drug abuse patient.[facility] [place]In the event this information is protected by the Federal Confidentiality of Alcohol and Drug Abuse Patient Records regulations: The Federal rules restrict any use of the information to criminally investigate or prosecute any alcohol or drug abuse patient.[facility] [place]In the event this information is protected by the Federal Confidentiality of Alcohol and Drug Abuse Patient Records regulations: The Federal rules restrict any use of the information to criminally investigate or prosecute any alcohol or drug abuse patient.[facility] [place]In the event this information is protected by the Federal Confidentiality of Alcohol and Drug Abuse Patient Records regulations: The Federal rules restrict any use of the information to criminally investigate or prosecute any alcohol or drug abuse patient.[facility] [place]In the event this information is protected by the Federal Confidentiality of Alcohol and Drug Abuse Patient Records regulations: The Federal rules restrict any use of the information to criminally investigate or prosecute any alcohol or drug abuse patient.[facility] [place]In the event this information is protected by the Federal Confidentiality of Alcohol and Drug Abuse Patient Records regulations: The Federal rules restrict any use of the information to criminally investigate or prosecute any alcohol or drug abuse patient.[facility] [place]In the event this information is protected by the Federal Confidentiality of Alcohol and Drug Abuse Patient Records regulations: The Federal rules restrict any use of the information to criminally investigate or prosecute any alcohol or drug abuse patient.[facility] [place]In the event this information is protected by the Federal Confidentiality of Alcohol and Drug Abuse Patient Records regulations: The Federal rules restrict any use of the information to criminally investigate or prosecute any alcohol or drug abuse patient.[facility] [place]In the event this information is protected by the Federal Confidentiality of Alcohol and Drug Abuse Patient Records regulations: The Federal rules restrict any use of the information to criminally investigate or prosecute any alcohol or drug abuse patient.[facility] [place]In the event this information is protected by the Federal Confidentiality of Alcohol and Drug Abuse Patient Records regulations: The Federal rules restrict any use of the information to criminally investigate or prosecute any alcohol or drug abuse patient.[facility] [place]In the event this information is protected by the Federal Confidentiality of Alcohol and Drug Abuse Patient Records regulations: The Federal rules restrict any use of the information to criminally investigate or prosecute any alcohol or drug abuse patient.[facility] [place]In the event this information is protected by the Federal Confidentiality of Alcohol and Drug Abuse Patient Records regulations: The Federal rules restrict any use of the information to criminally investigate or prosecute any alcohol or drug abuse patient.[facility] [place]In the event this information is protected by the Federal Confidentiality of Alcohol and Drug Abuse Patient Records regulations: The Federal rules restrict any use of the information to criminally investigate or prosecute any alcohol or drug abuse patient.[facility] [place]In the event this information is protected by the Federal Confidentiality of Alcohol and Drug Abuse Patient Records regulations: The Federal rules restrict any use of the information to criminally investigate or prosecute any alcohol or drug abuse patient.[facility] [place]In the event this information is protected by the Federal Confidentiality of Alcohol and Drug Abuse Patient Records regulations: The Federal rules restrict any use of the information to criminally investigate or prosecute any alcohol or drug abuse patient.[facility] [place] Reason for Visit (unrecogniz ed section and content) Reason Comments Radiology US Specialty Diagnoses / Procedures Referred By Contac t Referred To Contact [facility] Diagnoses Abnormal mammogram of left breast Procedures US BREAST LTD LEFT US BREAST UNI [place] [address] [place] [address] [facility] [address] [place] [address] Referral ID Status Reason Start Date Expiration Date V isits Requested Visits Authorized [id number] Closed Auto-Generate d Referral 09/11/2023 10/10/2024 1 1 Reason Comments Refill Request Reason Comments FYI-No Action Needed Reason Comments F/U 6 months Specialty Diagnoses / Procedures Referred By Contac t Referred To Contact US IMAGING Diagnoses Epigastric abdominal pain Procedures US ABD RT UPPER QUADRANT US ABDOMINAL REAL TIME W/IMAGE LIMITED Leonid Rice MD [facility] [place] [address] Us Imaging Referral ID Status Reason Start Date Expiration Date V isits Requested Visits Authorized [id number] Closed Auto-Generate d Referral 04/02/2021 05/02/2022 1 [...] cyst Procedures CONSULT TO GENERAL SURGERY OFFICE/OUTPATIENT [facility] MDM 60-74 MINUTES Leonid Rice MD [address] [place] [address] Referral ID Status Reason Start Date Expiration Date V isits Requested Visits Authorized [id number] Closed PCP Requested Referral 02/11/2022 02/11/2023 1 1 Specialty Diagnoses / Procedures Referred By Contac t Referred To Contact CT IMAGING Diagnoses Smoker Encounter for screening for lung cancer Procedures CT LUNG SCREEN WO IVCON COMPUTED TOMOGRAPHY THORAX LW DOSE LNG CA SCR Arcelia Shah, LAUNDRY MACHINE OPERATOR.LICENSED PROSTHETIST [address] [place] [address] Ct Imaging Referral ID Status Reason Start Date Expiration Date V isits Requested Visits Authorized [id number] Closed Auto-Generate d Referral 02/28/2022 04/29/2022 1 [...] NEW HIGH MDM 60 MINUTES Eddie Rodríguez, LAUNDRY MACHINE OPERATOR.[facility] [address] [place] [address] Referral ID Status Reason Start Date Expiration Date V isits Requested Visits Authorized [id number] Closed PCP Requested Referral 12/05/2023 12/04/2024 1 1 Specialty Diagnoses / Procedures Referred By Contac t Referred To Contact CT IMAGING Diagnoses Smoker Encounter for screening for malignant neoplasm of lung Procedures CT LUNG SCREEN WO IVCON COMPUTED TOMOGRAPHY THORAX LW DOSE LNG CA SCR Arcelia Shah, LAUNDRY MACHINE OPERATOR.LICENSED PROSTHETIST [address] [place] [address] [place] [address] Referral ID Status Reason Start Date Expiration Date V isits Requested Visits Authorized [id number] Closed Auto-Generate d Referral 12/13/2023 02/11/2024 1 1 Reason Comments Follow Up ct scan Reason Comments Follow Up Reason Comments New Patient Specialty Diagnoses / Procedures Referred By Contac t Referred To Contact General Surgery Diagnoses Epigastric abdominal pain Nausea Procedures CONSULT TO GENERAL SURGERY OFFICE/OUTPATIENT NEW HIGH MDM 60 MINUTES Marianna Yap M, LAUNDRY MACHINE OPERATOR.LICENSED PROSTHETIST [address] [place] [address] Referral ID Status Reason Start Date Expiration Date V isits Requested Visits Authorized [id number] Closed PCP Requested Referral 01/08/2024 01/07/2025 1 1 Reason Comments PT Eval Specialty Diagnoses / Procedures Referred By Contac t Referred To Contact Physical Therapy / PHYSICAL THERAPY Diagnoses Chronic pain of left knee [M25.562, G89.29] Tear of medial meniscus of left knee, current, unspecified tear type, initial encounter [S83.242A] Procedures NEW RS PT ORTH K Smiley De La Paz, DO [address] [place] [address] Ruby Kirkpatrick, PT [address] [place] [address] Referral ID Status Reason Start Date Expiration Date V isits Requested Visits Authorized [id number] Authorized 03/13/2023 03/12/2024 99 99 Care Teams (unrecognized sec tion and content) Team Status: Active Member Role Status Dates Dr. Leonid Rice MD Primary Care Provider Active Team Status: Inactive Member Role Status Dates Dr. Leonid Rice MD Primary Care Provider Active Start: August 25, 2024 End: August 28, 2024 Dr. Zachery Jesus DO Emergency Provider Active Start: August 25, 2024 End: August 28, 2024 Dr. Modesta Caro DO Admit Provider Active Start : August 25, 2024 End: August 28, 2024 Dr. Modesta Caro DO Other Provider Active Start : August 25, 2024 End: August 28, 2024 Dr. Alcon Cr MD Attending Provider Active Start: August 25, 2024 End: August 28, 2024 Team Status: Active Member Role Status Dates Dr. Leonid Rice MD Primary Care Provider Active Start: August 26, 2024 Dr. Zachery Jesus DO Emergency Provider Active Start: August 26, 2024 Dr. Modesta Caro DO Admit Provider Active Start : August 26, 2024 Dr. Modesta Caro DO Other Provider Active Start : August 26, 2024 Dr. Alcon Cr MD Attending Provider Active Start: August 26, 2024 Dr. Alcon Cr MD Other Provider Active Sta rt: August 26, 2024 Team Status: Active Member Role Status Dates Dr. Leonid Rice MD Primary Care Provider Active Start: August 27, 2024 Dr. Zachery Jesus DO Emergency Provider Active Start: August 27, 2024 Dr. Modesta Caro DO Admit Provider Active Start : August 27, 2024 Dr. Modesta Caro DO Other Provider Active Start : August 27, 2024 Dr. Alcon Cr MD Attending Provider Active Start: August 27, 2024 Dr. Alcon Cr MD Other Provider Active Sta rt: August 27, 2024 Email Marketing Assistant Relationship Specialty Start Date End Date Leonid Rice MD [address] [place] [address] PCP - General Internal Medicine 10/09/18 [place] [address] [place] [address] Pharmacist Pharmacy 10/22/20 Email Marketing Assistant Relationship Specialty Start Date End Date Leonid Rice MD [address] [place] [address] PCP - General Internal Medicine 10/09/18 [place], [facility] [address] [place] [address] Pharmacist Pharmacy 10/22/20 Email Marketing Assistant Relationship Specialty Start Date End Date Leonid Rice MD [address] [place] [address] PCP - General Internal Medicine 10/09/18 [place] Erica, [facility] [address] [facility] [place] [address] Pharmacist Pharmacy 10/22/20 Email Marketing Assistant Relationship Specialty Start Date End Date Leonid Rice MD [address] [facility] [place] [address] PCP - General Internal Medicine 10/09/18 [place] Erica, [facility] [address] [facility] [place] [address] Pharmacist Pharmacy 10/22/20 Email Marketing Assistant Relationship Specialty Start Date End Date Leonid Rice MD [address] [facility] [place] [address] PCP - General Internal Medicine 10/09/18 [place] Erica, [facility] [address] [facility] [place] [address] Pharmacist Pharmacy 10/22/20 Email Marketing Assistant Relationship Specialty Start Date End Date Leonid Rice MD [address] [facility] [place] [address] PCP - General Internal Medicine 10/09/18 [place] Erica, [facility] [address] [facility] [place] [address] Pharmacist Pharmacy 10/22/20 Email Marketing Assistant Relationship Specialty Start Date End Date Leonid Rice MD [address] [facility] [place] [address] PCP - General Internal Medicine 10/09/18 [place] Erica, [facility] [address] [facility] [place] [address] Pharmacist Pharmacy 10/22/20 Email Marketing Assistant Relationship Specialty Start Date End Date Leonid Rice MD [address] [place] [address] PCP - General Internal Medicine 10/09/18 [place], Erica, [facility] [address] [place] [address] Pharmacist Pharmacy 10/22/20 Email Marketing Assistant Relationship Specialty Start Date End Date Leonid Rice MD [address] [place] [address] PCP - General Internal Medicine 10/09/18 [place], Erica, [facility] [address] [place] [address] Pharmacist Pharmacy 10/22/20 Email Marketing Assistant Relationship Specialty Start Date End Date Leonid Rice MD [address] [facility] [place] [place] [address] PCP - General Internal Medicine 10/09/18 [place], Erica, [facility] [address] [place] [address] Pharmacist Pharmacy 10/22/20 Email Marketing Assistant Relationship Specialty Start Date End Date Leonid Rice MD [address] [place] [address] PCP - General Internal Medicine 10/09/18 [place], [facility] [address] [place] [address] Pharmacist Pharmacy 10/22/20 Email Marketing Assistant Relationship Specialty Start Date End Date Leonid Rice MD [address] [place] [address] PCP - General Internal Medicine 10/09/18 [place] Erica, [facility] [address] [place] [address] Pharmacist Pharmacy 10/22/20 Email Marketing Assistant Relationship Specialty Start Date End Date Leonid Rice MD [address] [place] [address] PCP - General Internal Medicine 10/09/18 [place] Erica, [facility] [address] [place] [address] Pharmacist Pharmacy 10/22/20 Email Marketing Assistant Relationship Specialty Start Date End Date Leonid Rice MD [address] [place] [address] PCP - General Internal Medicine 10/09/18 [place], [facility] [address] [place] [address] Pharmacist Pharmacy 10/22/20 Email Marketing Assistant Relationship Specialty Start Date End Date Leonid Rice MD [address] [place] [address] PCP - General Internal Medicine 10/09/18 [place], [facility] [address] [place] [address] Pharmacist Pharmacy 10/22/20 Email Marketing Assistant Relationship Specialty Start Date End Date Leonid Rice MD [address] [place] [address] PCP - General Internal Medicine 10/09/18 [place], [facility] [address] [place] [address] Pharmacist Pharmacy 10/22/20 Email Marketing Assistant Relationship Specialty Start Date End Date Leonid Rice MD [address] [place] [address] PCP - General Internal Medicine 10/09/18 [place], [facility] [address] [place] [address] Pharmacist Pharmacy 10/22/20 Email Marketing Assistant Relationship Specialty Start Date End Date Leonid Rice MD [address] [place] [address] PCP - General Internal Medicine 10/09/18 [place], [facility] [address] [place] [address] Pharmacist Pharmacy 10/22/20 Email Marketing Assistant Relationship Specialty Start Date End Date Leonid Rice MD [address] [place] [address] PCP - General Internal Medicine 10/09/18 [place], [facility] [address] [place] [address] Pharmacist Pharmacy 10/22/20 Email Marketing Assistant Relationship Specialty Start Date End Date Leonid Rice MD [address] [place] [address] PCP - General Internal Medicine 10/09/18 [place], [facility] [address] [place] [address] Pharmacist Pharmacy 10/22/20 Email Marketing Assistant Relationship Specialty Start Date End Date Leonid Rice MD [address] [place] [address] PCP - General Internal Medicine 10/09/18 [place], [facility] [address] [place] [address] Pharmacist Pharmacy 10/22/20 Email Marketing Assistant Relationship Specialty Start Date End Date Leonid Rice MD [address] [facility] [place] [place] [address] PCP - General Internal Medicine 10/09/18 Jules, Erica, [facility] [address] [place] [address] Pharmacist Pharmacy 10/22/20 Email Marketing Assistant Relationship Specialty Start Date End Date Leonid Rice MD [address] [place] [address] PCP - General Internal Medicine 10/09/18 [place] ro[place], [facility] [address] [facility] [place] [place] [address] Pharmacist Pharmacy 10/22/20 Team Status: Active Member Role Status Dates Dr. Micki Seth MD Family Provider Active Dr. Leonid Rice MD Primary Care Provider Active Team Status: Inactive Member Role Status Dates Dr. Leonid Rice MD Primary Care Provider Active Dr. Ronak Marte DO Emergency Provider Active Email Marketing Assistant Relationship Specialty Start Date End Date Leonid Rice MD [address] [facility] [place] [place] [address] PCP - General Internal Medicine 10/09/18 Erica Vicente, [facility] [address] [facility] [place] [place] [address] Pharmacist Pharmacy 10/22/20 Email Marketing Assistant Relationship Specialty Start Date End Date Leonid Rice MD [address] [facility] [place] [place] [address] PCP - General Internal Medicine 10/09/18 [place], Erica, [facility] [address] [facility] [place] [place] [address] Pharmacist Pharmacy 10/22/20 Email Marketing Assistant Relationship Specialty Start Date End Date Leonid Rice MD [address] [place] [address] PCP - General Internal Medicine 10/09/18 Jules Erica, [facility] [address] [place] [address] Pharmacist Pharmacy 10/22/20 Email Marketing Assistant Relationship Specialty Start Date End Date Leonid Rice MD [address] [place] [address] PCP - General Internal Medicine 10/09/18 [place] Erica, [facility] [address] [place] [address] Pharmacist Pharmacy 10/22/20 Email Marketing Assistant Relationship Specialty Start Date End Date Leonid Rice MD [address] [place] [address] PCP - General Internal Medicine 10/09/18 [place] Erica, [facility] [address] [place] [address] Pharmacist Pharmacy 10/22/20 Email Marketing Assistant Relationship Specialty Start Date End Date Leonid Rice MD [address] [place] [address] PCP - General Internal Medicine 10/09/18 [place] Erica, [facility] [address] [place] [address] Pharmacist Pharmacy 10/22/20 Email Marketing Assistant Relationship Specialty Start Date End Date Leonid Rice MD [address] [place] [address] PCP - General Internal Medicine 10/09/18 [place], Erica, [facility] [address] [place] [address] Pharmacist Pharmacy 10/22/20 Email Marketing Assistant Relationship Specialty Start Date End Date Leonid Rice MD [address] [place] [address] PCP - General Internal Medicine 10/09/18 [place] Erica, [facility] [address] [place] [address] Pharmacist Pharmacy 10/22/20 Email Marketing Assistant Relationship Specialty Start Date End Date Leonid Rice MD [address] [place] [address] PCP - General Internal Medicine 10/09/18 [place] Erica, [facility] [address] [place] [address] Pharmacist Pharmacy 10/22/20 Email Marketing Assistant Relationship Specialty Start Date End Date Leonid Rice MD [address] [place] [address] PCP - General Internal Medicine 10/09/18 Jules, Erica, [facility] [address] [place] [address] Pharmacist Pharmacy 10/22/20 Email Marketing Assistant Relationship Specialty Start Date End Date Leonid Rice MD [address] [place] [address] PCP - General Internal Medicine 10/09/18 [place] Erica, [facility] [address] [place] [address] Pharmacist Pharmacy 10/22/20 Email Marketing Assistant Relationship Specialty Start Date End Date Leonid Rice MD [address] [place] [address] PCP - General Internal Medicine 10/09/18 [place] Erica, [facility] [address] [place] [address] Pharmacist Pharmacy 10/22/20 Email Marketing Assistant Relationship Specialty Start Date End Date Leonid Rice MD [address] [place] [address] PCP - General Internal Medicine 10/09/18 [place], [facility] [address] [place] [address] Pharmacist Pharmacy 10/22/20 Email Marketing Assistant Relationship Specialty Start Date End Date Leonid Rice MD [address] [place] [address] PCP - General Internal Medicine 10/09/18 [place], [facility] [address] [place] [address] Pharmacist Pharmacy 10/22/20 Email Marketing Assistant Relationship Specialty Start Date End Date Leonid Rice MD [address] [place] [address] PCP - General Internal Medicine 10/09/18 [place], [facility] [address] [place] [address] Pharmacist Pharmacy 10/22/20 Email Marketing Assistant Relationship Specialty Start Date End Date Leonid Rice MD [address] [place] [address] PCP - General Internal Medicine 10/09/18 [place], [facility] [address] [place] [address] Pharmacist Pharmacy 10/22/20 Email Marketing Assistant Relationship Specialty Start Date End Date Leonid Rice MD [address] [place] [address] PCP - General Internal Medicine 10/09/18 [place], [facility] [address] [place] [address] Pharmacist Pharmacy 10/22/20 Email Marketing Assistant Relationship Specialty Start Date End Date Leonid Rice MD [address] [place] [address] PCP - General Internal Medicine 10/09/18 [place], [facility] [address] [place] [address] Pharmacist Pharmacy 10/22/20 Email Marketing Assistant Relationship Specialty Start Date End Date Leonid Rice MD [address] [place] [address] PCP - General Internal Medicine 10/09/18 [place], [facility] [address] [place] [address] Pharmacist Pharmacy 10/22/20 Email Marketing Assistant Relationship Specialty Start Date End Date Leonid Rice MD [address] [place] [address] PCP - General Internal Medicine 10/09/18 [place], [facility] [address] [place] [address] Pharmacist Pharmacy 10/22/20 Email Marketing Assistant Relationship Specialty Start Date End Date Leonid Rice MD [address] [place] [address] PCP - General Internal Medicine 10/09/18 [place], [facility] [address] [place] [address] Pharmacist Pharmacy 10/22/20 Email Marketing Assistant Relationship Specialty Start Date End Date Leonid Rice MD [address] [place] [address] PCP - General Internal Medicine 10/09/18 [place] Erica, [facility] [address] [place] [address] Pharmacist Pharmacy 10/22/20 Email Marketing Assistant Relationship Specialty Start Date End Date Leonid Rice MD [address] [place] [address] PCP - General Internal Medicine 10/09/18 [place], [facility] [address] [place] [address] Pharmacist Pharmacy 10/22/20 Email Marketing Assistant Relationship Specialty Start Date End Date Leonid Rice MD [address] [place] [address] PCP - General Internal Medicine 10/09/18 [place], [facility] [address] [place] [address] Pharmacist Pharmacy 10/22/20 Team Status: Active Member Role Status Dates Dr. Leonid Rice MD Primary Care Provider Active Team Status: Active Member Role Status Dates Dr. Leonid Rice MD Primary Care Provider Active Start: August 25, 2024 Dr. Zachery Jesus DO Emergency Provider Active Start: August 25, 2024 Dr. Modesta Caro DO Admit Provider Active Start : August 25, 2024 Dr. Modesta Caro DO Attending Provider Active S tart: August 25, 2024 Dr. Modesta Caro DO Other Provider Active Start : August 25, 2024 Team Status: Inactive Member Role Status Dates Dr. Leonid Rice MD Primary Care Provider Active Start: August 25, 2024 End: August 28, 2024 Dr. Zachery Jesus DO Emergency Provider Active Start: August 25, 2024 End: August 28, 2024 Dr. Modesta Caro DO Admit Provider Active Start : August 25, 2024 End: August 28, 2024 Dr. Modesta Caro DO Other Provider Active Start : August 25, 2024 End: August 28, 2024 Dr. Alcon Cr MD Attending Provider Active Start: August 25, 2024 End: August 28, 2024 Team Status: Active Member Role Status Dates Dr. Leonid Rice MD Primary Care Provider Active Start: August 26, 2024 Dr. Zachery Jesus DO Emergency Provider Active Start: August 26, 2024 Dr. Modesta Caro DO Admit Provider Active Start : August 26, 2024 Dr. Modesta Caro DO Other Provider Active Start : August 26, 2024 Dr. Alcon Cr MD Attending Provider Active Start: August 26, 2024 Dr. Alcon Cr MD Other Provider Active Sta rt: August 26, 2024 Team Status: Active Member Role Status Dates Dr. Leonid Rice MD Primary Care Provider Active Start: August 27, 2024 Dr. Zachery Jesus DO Emergency Provider Active Start: August 27, 2024 Dr. Modesta Caro DO Admit Provider Active Start : August 27, 2024 Dr. Modesta Caro DO Other Provider Active Start : August 27, 2024 Dr. Alcon Cr MD Attending Provider Active Start: August 27, 2024 Dr. Alcon Cr MD Other Provider Active Sta rt: August 27, 2024 Goals (unrecognized section and content) Goals may be documented in a n alternate sectionGoals may be documented in an alternate section No data available for this sectionGoals may be documented in an alternate section FOR RECORDS PERTAINING TO PATIENTS WHO [...] BE BASED ON THE PRIMARY CLINICAL RECORDS. [facility] [employer] [facility]. provides no warranty or guarantee of the accuracy or completeness of information in this document.
[2024-08-29 02:41] LABS: Pro- Brain NATRIURETIC PEPTIDE 126 pg/mL (<=900)
[2024-08-29 02:59] LABS: Anion Gap 11 (5-15); BUN 23 mg/dL (4-19); BUN/Creat Ratio 23.1 RATIO (10-20); Carbon Dioxide 25.5 mmol/L (21.0-32.0); Chloride 102 mmol/L (98-108); EST Glomerular Filtration Rate 64 (>60); Estimated Creatinine Clearance 61.46 ml/min (50-250); Glucose 180 mg/dL (70-99); Potassium 4.1 mmol/L (3.3-5.1); Sodium Level 138 mmol/L (133-145)
[2024-08-29 03:12] LABS: Magnesium 2.2 mg/dL (1.5-2.2)
--- NOTE | 2024-08-29 03:28 | EX.ED.DYSGE1 ---
HPI History of Present Illness Chief Complaint: Shortness of Breath Informant: patient Narrative Narrative: Patient is a 63-year-old female with past medical history of tobacco abuse and COPD as well as anxiety. She was recently admitted to the hospital secondary to COPD exacerbation. She was placed on steroids benzo Steven inhaler and discharged home recently. She states that she does not require supplemental oxygen at baseline. She reports she awoke this evening with increased shortness of breath which concerned her especially because of her recent admission and with this presents for evaluation [facility] Medical History Tobacco abuse GERD (gastroesophageal reflux disease) Asthma Depression Anxiety Home Medications ?Medication ?Instructions ?Recorded ?Last Taken ?Type fluoxetine 20 mg capsule 20 mg PO QHS 03/24/15 03/23/15 History topiramate 25 mg tablet (Topamax) 25 mg PO QHS 03/24/15 03/23/15 History trazodone 100 mg tablet 200 mg PO QHS 03/24/15 03/23/15 History albuterol sulfate 90 mcg/actuation 2 puff inhalation Q4H PRN PRN Sob 03/25/15 Unknown Rx aerosol inhaler (ProAir HFA) &/Or Wheezing ##1 budesonide 180 mcg/actuation 1 puff inhalation BID ##1 03/25/15 Unknown Rx breath activated powder inhaler (Pulmicort Flexhaler) benzonatate 200 mg capsule 200 mg PO TID PRN cough #30 caps 08/28/24 Unknown Rx guaifenesin 1,200 mg tablet, 1,200 mg PO BID 7 days #14 tabs 08/28/24 Unknown Rx extended release 12 hr (Mucus Relief ER) nicotine 21 mg/24 hr daily 21 mg transdermal DAILY 28 days 08/28/24 Unknown Rx transdermal patch #28 ea prednisone 10 mg tablet 10 mg PO DAILY #30 tabs 08/28/24 Unknown Rx Allergy/AdvReac Type Severity Reaction Status Date / Time latex Allergy Rash Verified 08/29/24 01:15 chocolate AdvReac Shortness Verified 08/29/24 01:15 of breath Family History Mother Myocardial infarction CVA (cerebral vascular accident) Diabetes Brother Asthma Myocardial infarction Father Hypertension Surgical History History of umbilical hernia repair History of cholecystectomy History of appendectomy Social History household members: none housing: house Smoking Status: Current every day smoker tobacco type: cigarettes alcohol intake: never what type of physical activity do you participate in: none do you feel safe at home: Yes ROS ROS ED Constitutional Constitutional ED: Denies chills or fever(s) Eyes Eyes: Denies change in vision ENT ENT ED: Denies sore throat Cardiovascular Cardiovascular: Denies chest pain, palpitations or racing heartbeat Respiratory/Chest Respiratory/Chest: Reports cough and dyspnea Gastrointestinal Gastrointestinal: Denies abdominal pain, diarrhea, nausea or vomiting Genitourinary Genitourinary ED: Denies dysuria Musculoskeletal Musculoskeletal: Denies back pain Integumentary Denies rash Neurologic Neurologic: Denies headache(s) Hematologic/Lymphatic Hematologic/Lymphatic: Denies easy bleeding or easy bruising Allergic/Immunologic Allergic/Immunologic ED: Denies mouth swelling or tongue swelling EXAM Physical Exam Const Vital Signs: 08/29/24 01:10 08/29/24 01:14 08/29/24 02:12 Temperature 97.6 F L Temperature Source Oral Pulse Rate 96 91 Respiratory Rate 25 H 20 H Respiratory Effort Short of Breath Respiratory Depth Shallow Respiratory Pattern Tachypnea Normal Blood Pressure 139/82 H Blood Pressure Mean 101 Pulse Ox 97 Oxygen Delivery Method Room Air Room Air 08/29/24 02:45 08/29/24 03:00 08/29/24 03:34 Temperature 98.7 F 98.7 F Temperature Source Oral Oral Pulse Rate 99 83 85 Respiratory Rate 21 H 25 H 20 H Respiratory Effort Respiratory Depth Respiratory Pattern Normal Blood Pressure 142/81 H 99/75 Blood Pressure Mean 101 83 Pulse Ox 97 94 Oxygen Delivery Method Room Air Room Air 08/29/24 03:48 Temperature 98.3 F Temperature Source Pulse Rate 83 Respiratory Rate 24 H Respiratory Effort Respiratory Depth Respiratory Pattern Blood Pressure 139/84 H Blood Pressure Mean 102 Pulse Ox 94 Oxygen Delivery Method Positive well nourished, well developed and obese General Appearance ED: well developed; Negative for pallor Nutritional Appearance: obese HEENT Reports moist mucous membranes HEENT Narrative: No tongue or lip swelling no oral lesions no airway edema or compromise No secondary findings in the posterior pharynx to suggest infection Eyes PERRL and EOMs intact bilaterally General Eye ED: Negative for scleral icterus Neck supple and no JVD Neck Narrative: No nuchal rigidity or meningeal signs Chest Wall palpation of chest normal Chest Narrative: No bony deformity or crepitus noted Resp Resp Narrative: Patient is tachypneic and breath sounds are diminished throughout with diffuse expiratory wheeze However no nasal flaring or retractions or accessory muscle use. No dyspnea with speech Cardio regular rate and regular rhythm Extremity normal to inspection Extremity Narrative: No asymmetric edema no pitting edema negative Homans' sign bilaterally Neuro oriented x3, CN's II-XII intact bilaterally and no sensory deficits noted Sensorium / Orientation: alert Motor Exam: strength 5/5 throughout Psych Mood & Affect: anxious Skin no rashes or lesions noted General Skin Exam: Negative for jaundice or pallor MDM MDM MDM Narrative Medical decision making narrative: Patient presented to the ER mildly tachypneic but otherwise with stable vitals and pulse ox was in the mid to high 90s on room air. She has a known history of COPD and continues to smoke and based on her exam she is most likely having a COPD exacerbation. However in order to ensure that this is not related to acute blood loss anemia electrolyte abnormality or CHF or potential pneumonia or pneumothorax basic blood work and a chest x-ray were obtained. Labs revealed no clinically significant findings and chest x-ray revealed no acute lung pathology. After receiving IV Solu-Medrol as well as breathing medication the patient was able to fall asleep. On reevaluation there is been improvement in her work of breathing as well as breath sounds and she is not hypoxic. Therefore she is not in respiratory distress or having need for supplemental oxygen and there is no signs of secondary infection I do not feel patient needs to be admitted to the hospital and she is otherwise safe for discharge. History & Record Review Discussion w/independent historian: Patient Lab Data Attestation: I reviewed the patient's lab results. Labs: Laboratory Results - last 24 hr 08/29/24 01:33 WBC 14.8 H RBC 4.87 Hgb 14.5 Hct 43.8 MCV 89.9 MCH 29.8 MCHC 33.1 RDW Std Deviation 44.1 H RDW Coeff of Bhupendra 13.4 Plt Count 209 MPV 11.9 Immature Gran % (Auto) 2.600 H Neut % (Auto) 71.1 H Lymph % (Auto) 17.[address] [place] % (Auto) 8.7 Eos % (Auto) 0.1 Baso % (Auto) 0.5 Absolute Neuts (auto) 10.5 H Absolute Lymphs (auto) 2.51 Nucleated RBC % 0 Sodium 138 Potassium 4.1 Chloride 102 Carbon Dioxide 25.5 Anion Gap 11 BUN 23 H Creatinine 1.00 Estim Creat Clear Calc 61.46 Est GFR (MDRD) Non-Af 64 BUN/Creatinine Ratio 23.1 H Glucose 180 H Calcium 9.0 Magnesium 2.2 NT pro BNP II 126 Radiography Diagnostic Testing: Clinical Impression(s) from Imaging Studies Chest X-Ray 08/29/24 02:32 IMPRESSION: Mild bilateral basilar atelectatic pulmonary changes. Reading Location: [place] [id number] Chest x-ray as interpreted by the emergency medicine physician reveals mild atelectasis without acute infiltrate pneumothorax or pleural effusion Discharge Plan Triage Chief Complaint: Shortness of Breath ED Provider: Lauri Fisher Dx/Rx/DC Orders Clinical Impression: COPD with acute exacerbation, Anxiety and depression, Tobacco abuse Instructions: COPD: Wheezing and Chest Tightness Prescriptions: No Action topiramate [Topamax] 25 MG tablet 25 mg PO QHS Patient Comments: seizures fluoxetine 20 MG capsule 20 mg PO QHS Patient Comments: depression trazodone 100 MG tablet 200 mg PO QHS Patient Comments: depression Pulmicort Flexhaler 1 PUFF inhaler 1 puff inhalation BID Qty: 1 0RF Patient Comments: shortness of breath albuterol sulfate [ProAir HFA] 1 PUFF inhaler 2 puff inhalation Q4H PRN PRN (Reason: Sob &/Or Wheezing) Qty: 1 0RF Patient Comments: shortness of breath nicotine 21 mg/24 hr Patch 24 Hour 21 mg transdermal DAILY 28 Days Qty: 28 0RF guaifenesin [Mucus Relief ER] 1,200 mg Tablet Extended Release 12hr 1,200 mg PO BID 7 Days Qty: 14 0RF benzonatate 200 mg capsule 200 mg PO TID PRN (Reason: cough) Qty: 30 0RF prednisone 10 mg tablet 10 mg PO DAILY Qty: 30 0RF Rx Instructions: 40 mg for 3 days 30 mg for 3 days, 20 mg for 3 days,and 10 mg for 3 days Primary Care Provider: Leonid Rice Referrals: Leonid Rice MD [Primary Care Provider] - Activity Restrictions/Additional Instructions: Your x-ray showed no sign of pneumonia. Your labs revealed no clinically significant abnormalities. Your oxygen level is normal in the ER at approximately 96%. Please continue all the medications prescribed to you at your recent hospital stay and return to the ER should you have any further concerns Print Language: Chinese Disposition Disposition: Home, Self Care Discharge Date/Time: 08/29/24 03:48
[2024-08-29] MEDS: Albuterol Sulfate 8 gm Inhaler (60 puffs) 2 PUFF INHALATION (03:45)
== END 2024-08-29 03:48 | disposition home or self-care (01) ==
PROVIDERS: Emergency Provider Emergency Medicine; PCP Internal Medicine; Visit Provider Emergency Medicine
DX: J44.1 Chronic obstructive pulmonary disease with (acute) exacerbation (principal); F32.A Depression, unspecified; F41.9 Anxiety disorder, unspecified; K21.9 Gastro-esophageal reflux disease without esophagitis; F17.210 Nicotine dependence, cigarettes, uncomplicated; Z79.899 Other long term (current) drug therapy
CPT/HCPCS: 71046; 80048; 83735; 83880; 85025; 94640; 96374; 96375; 99284; A4216

== ENCOUNTER 2024-11-23 09:51 | Emergency (ER) | payer MEDICAID, SELFPAY ==
[2024-11-23 09:51] VITALS: BP 146/82; PULSE 81; RESP 14; TEMP 36.7; O2SAT 96; BMI 41.3
--- NOTE | 2024-11-23 10:06 | CT_ITS ---
PROCEDURE: ABDOMEN/PELVIS W IV CONT ONLY 11/23/2024 REASON FOR EXAM: LEFT SIDED ABD PAIN TECHNIQUE: Procedure Code: [id number] Modality: CT Procedure: ABDOMEN/PELVIS W IV CONT ONLY Coronal and Sagittal reconstruction series were provided. CONTRAST: Isovue 370 VOLUME: 1 mL One or more dose reduction techniques were used (e.g., Automated exposure control, adjustment of the mA and/or kV according to patient size, use of iterative reconstruction technique. RADIATION DOSE SUMMARY: CTDlvol: 21 mGy DLP: 1050 mGycm COMPARISON: August 2024. FINDINGS: Lung bases: Calcified granuloma in the right. No new pulmonary nodules or masses. ABDOMEN Liver: Liver negative. No focal mass or lesion. Biliary system: Negative. Negative for intrahepatic or extrahepatic ductal dilatation. Gallbladder: Removed . Spleen: Negative. Pancreas: Negative. Adrenals: Negative. Kidneys: Negative. Negative for kidney stones, cysts or masses. Bowel: Diffuse diverticulosis. Mild increased stool throughout the colon. Negative for small or large-bowel obstruction. Appendix: Removed. Vasculature: Negative for atherosclerotic vascular calcifications of the abdominal aorta and its branches. Peritoneum / Retroperitoneum: Negative. PELVIS Lymph nodes: Negative for inguinal or iliac adenopathy. Bladder: Negative Reproductive Organs: Hysterectomy Bones and Soft Tissues: Age appropriate degenerative changes of the lumbar spine hips and pelvis. CT/Abdomen/Pelvis W IV Cont ONLY IMPRESSION: Negative for acute intra-abdominal o pelvic pathology. Reading Location: [id number]
--- NOTE | 2024-11-23 10:07 | ED.VIS.GI ---
HPI HPI - GI History of Present Illness Chief Complaint: Flank Pain Informant: patient Narrative Narrative: 64-year-old female states has been having left low back and left flank pain for the past approximately 2 weeks. Was not sudden onset. Has been persistent. Is the first time she has seen somebody for this. Never had a before. No recent falls or injuries. No nausea, vomiting, diarrhea, bright red blood per rectum. No urinary symptoms. No fevers or chills. Denies any cough or dyspnea or other systemic symptoms. She states it is not worse to move around or anything else that she can think of makes it worse or better. She states it has not gone away. [facility] Medical History (Updated 11/23/24 @ 12:[address] Brice Horne MD) JOSSELIN (obstructive sleep apnea) Tobacco abuse GERD (gastroesophageal reflux disease) Asthma Depression Anxiety Home Medications ?Medication ?Instructions ?Recorded ?Last Taken ?Type fluoxetine 20 mg capsule 20 mg PO QHS 03/24/15 03/23/15 History topiramate 25 mg tablet (Topamax) 25 mg PO QHS 03/24/15 03/23/15 History trazodone 100 mg tablet 200 mg PO QHS 03/24/15 03/23/15 History albuterol sulfate 90 mcg/actuation 2 puff inhalation Q4H PRN PRN Sob 03/25/15 Unknown Rx aerosol inhaler (ProAir HFA) &/Or Wheezing ##1 budesonide 180 mcg/actuation 1 puff inhalation BID ##1 03/25/15 Unknown Rx breath activated powder inhaler (Pulmicort Flexhaler) benzonatate 200 mg capsule 200 mg PO TID PRN cough #30 caps 08/28/24 Unknown Rx guaifenesin 1,200 mg tablet, 1,200 mg PO BID 7 days #14 tabs 08/28/24 Unknown Rx extended release 12 hr (Mucus Relief ER) nicotine 21 mg/24 hr daily 21 mg transdermal DAILY 28 days 08/28/24 Unknown Rx transdermal patch #28 ea prednisone 10 mg tablet 10 mg PO DAILY #30 tabs 08/28/24 Unknown Rx meloxicam 7.5 mg tablet 7.5 mg PO DAILY PRN pain #10 tabs 11/23/24 Unknown Rx orphenadrine citrate 100 mg 100 mg PO Q12H PRN muscle pain #14 11/23/24 Unknown Rx tablet,extended release tabs Allergy/AdvReac Type Severity Reaction Status Date / Time latex Allergy Rash Verified 11/23/24 09:52 chocolate AdvReac Shortness Verified 11/23/24 09:52 of breath Family History Mother Myocardial infarction CVA (cerebral vascular accident) Diabetes Brother Asthma Myocardial infarction Father Hypertension Surgical History History of hysterectomy History of umbilical hernia repair History of cholecystectomy History of appendectomy Social History household members: none housing: house Smoking Status: Current every day smoker tobacco type: cigarettes alcohol intake: never what type of physical activity do you participate in: none do you feel safe at home: Yes ROS ROS ED Constitutional Constitutional ED: Denies chills or fever(s) Eyes Eyes: Denies change in vision or diplopia ENT ENT ED: Denies rhinorrhea or sore throat Cardiovascular Cardiovascular: Denies chest pain or palpitations Respiratory/Chest Respiratory/Chest: Denies cough or dyspnea Gastrointestinal Gastrointestinal: Reports as per HPI and abdominal pain; Denies diarrhea, hematemesis, hematochezia, melena, nausea or vomiting Genitourinary Genitourinary ED: Reports as per HPI and flank pain; Denies dysuria or hematuria Musculoskeletal Musculoskeletal: Reports back pain; Denies neck pain Integumentary Denies abscess or rash Neurologic Neurologic: Denies headache(s), paresthesias or weakness Psychiatric Psychiatric: Denies suicidal thoughts EXAM Physical Exam Const Vital Signs: 11/23/24 09:51 Temperature 98.1 F Temperature Source Temporal Pulse Rate 81 Respiratory Rate 14 Blood Pressure 146/82 H Blood Pressure Mean 103 Pulse Ox 96 Oxygen Delivery Method Room Air Positive well nourished and well developed Constitutional Narrative: Well-appearing in no distress General Appearance ED: well developed and NAD HEENT Reports moist mucous membranes normocephalic and atraumatic Eyes PERRL and EOMs intact bilaterally Neck full ROM and supple Resp normal respiratory effort and clear to auscultation bilaterally Cardio regular rate, regular rhythm and no murmurs GI non-distended GI Narrative: Mild diffuse left-sided abdominal tenderness without pulsatile mass, guarding, rebound. No other abdominal tenderness. Auscultation: normoactive bowel sounds Palpation: soft Back/Spine no CVA tenderness Back/Spine Narrative: Mild diffuse left lumbar paraspinal tenderness, normal inspection. No midline bony tenderness. Patient able to range her low back without limitation or apparent major discomfort. General Back: other FROM Extremity normal to inspection and full ROM General Extremety ED: Negative for edema, pulses abnormal or tenderness General Extremity: Negative for edema or pulses abnormal Neuro oriented x3, CN's II-XII intact bilaterally, no sensory deficits noted and gait normal Sensorium / Orientation: awake and alert Motor Exam: strength 5/5 throughout Skin no rashes or lesions noted and no wounds MDM MDM MDM Narrative Medical decision making narrative: Differential including urinary infection, kidney stone, pyelonephritis, AAA, diverticulitis or other GI-related etiology. Blood work, urinalysis, CT obtained. I reviewed the images and report of the CT which I agree with. Everything basically normal/negative for anything acute. She does have diverticulosis and we discussed that and the fact that she does not have diverticulitis tells me that it is likely unrelated to her current pain. Given how tender she is in her back and the lateral aspect of the back, I think this may be musculoskeletal. I am going to prescribe her Norflex and a short course of Hannah 2 inhibitor and encouraged her to follow-up with her doctor she does have 1, discussed with patient and family they are comfortable with that overall plan. History & Record Review Discussion w/independent historian: Patient and Family Lab Data Attestation: I reviewed the patient's lab results. Labs: Laboratory Results - last 24 hr 11/23/24 11/23/24 10:18 12:00 WBC 7.8 RBC 4.88 Hgb 14.3 Hct 42.4 MCV 86.9 MCH 29.3 MCHC 33.7 RDW Std Deviation 42.5 RDW Coeff of Bhupendra 13.3 Plt Count 258 MPV 11.3 Immature Gran % (Auto) 0.300 Neut % (Auto) 53.4 Lymph % (Auto) 36.8 [place] % (Auto) 6.6 Eos % (Auto) 2.3 Baso % (Auto) 0.6 Absolute Neuts (auto) 4.2 Absolute Lymphs (auto) 2.88 Nucleated RBC % 0 Sodium 141 Potassium 3.8 Chloride 106 Carbon Dioxide 23.3 Anion Gap 12 BUN 9 Creatinine 0.93 Estim Creat Clear Calc 65.09 Est GFR (MDRD) Non-Af 70 BUN/Creatinine Ratio 10.0 Glucose 205 H Calcium 9.3 Urine Color Yellow Urine Clarity Clear Urine pH 6.5 Ur Specific [place] 1.010 Urine Protein 30 H Urine Glucose (UA) Normal Urine Ketones Negative Urine Occult Blood 10 H Urine Nitrite Negative Urine Bilirubin Negative Urine Urobilinogen Normal Ur Leukocyte Esterase Negative Urine RBC 0 SEEN Urine WBC 0 SEEN Ur Squamous Epith Cells 0 SEEN Urine Bacteria 0 SEEN Urine Mucus 0 SEEN Radiography Diagnostic Testing: Clinical Impression(s) from Imaging Studies Abdomen/Pelvis CT 11/23/24 10:06 IMPRESSION: Negative for acute intra-abdominal o pelvic pathology. Reading Location: [id number] Discharge Plan Triage Chief Complaint: Flank Pain ED Provider: Brice Horne Dx/Rx/DC Orders Clinical Impression: Acute lumbar myofascial strain, Muscular abdominal pain in left flank Instructions: ED Back Sprain/Strain Prescriptions: New orphenadrine citrate 100 mg tablet extended release 100 mg PO Q12H PRN (Reason: muscle pain) Qty: 14 0RF meloxicam 7.5 mg tablet 7.5 mg PO DAILY PRN (Reason: pain) Qty: 10 0RF No Action topiramate [Topamax] 25 MG tablet 25 mg PO QHS Patient Comments: seizures fluoxetine 20 MG capsule 20 mg PO QHS Patient Comments: depression trazodone 100 MG tablet 200 mg PO QHS Patient Comments: depression Pulmicort Flexhaler 1 PUFF inhaler 1 puff inhalation BID Qty: 1 0RF Patient Comments: shortness of breath albuterol sulfate [ProAir HFA] 1 PUFF inhaler 2 puff inhalation Q4H PRN PRN (Reason: Sob &/Or Wheezing) Qty: 1 0RF Patient Comments: shortness of breath nicotine 21 mg/24 hr Patch 24 Hour 21 mg transdermal DAILY 28 Days Qty: 28 0RF guaifenesin [Mucus Relief ER] 1,200 mg Tablet Extended Release 12hr 1,200 mg PO BID 7 Days Qty: 14 0RF benzonatate 200 mg capsule 200 mg PO TID PRN (Reason: cough) Qty: 30 0RF prednisone 10 mg tablet 10 mg PO DAILY Qty: 30 0RF Rx Instructions: 40 mg for 3 days 30 mg for 3 days, 20 mg for 3 days,and 10 mg for 3 days Primary Care Provider: Leonid Rice Referrals: Leonid Rice MD [Primary Care Provider] - 1 Week if not improving Print Language: Israeli Disposition Disposition: Home, Self Care
[2024-11-23 10:44] LABS: Hematocrit 42.4 % (37-47); Hemoglobin 14.3 g/dL (12.0-15.0); Immature Granulocytes Count 0.020 X10^3/uL (0.0-0.0); Mean Corp Hgb Conc 33.7 g/dL (32-36); Mean Corpuscular Volume 86.9 fL (81-99); Mean Platelet Vol. 11.3 fl (6.2-12.0); NRBC Flagged by Analyzer 0 % (0-5); Platelet Count 258 K/mm3 (150-450); RBC Distribution Width CV 13.3 % (11.6-14.6); RBC Distribution Width SD 42.5 fl (35.1-43.9); Red Blood Count 4.88 M/mm3 (4.2-5.4); White Blood Count 7.8 K/mm3 (4.4-11.0)
--- OUTSIDE RECORDS SUMMARY | 2024-11-23 11:10 | XMS RPT_ITS | CCD ---
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 (17 sources) Tear of medial meniscus of knee; Translations: [Other tear of medial meniscus, current injury, left knee, initial encounter] Onset: 01-16-2024 Resolved: 08-30-2024 12-27-2023 Episodic Nausea and vomiting (16 sources) Nausea; Translations: [Nausea] Onset: 01-08-2024 01-08-2024 Episodic Other connective tissue disease (20 sources) Myofascial pain; Translations: [Myalgia, other site] Onset: 10-17-2014 Resolved: 08-17-2018 08-17-2018 Episodic Other gastrointestinal disorders (20 sources) Constipation; Translations: [Constipation, unspecified] Onset: 06-06-2014 Episodic Other nervous system disorders (20 sources) Abnormal gait; Translations: [Unspecified abnormalities of gait and mobility] Onset: 01-28-2014 Resolved: 04-02-2021 04-02-2021 Episodic Other non-traumatic joint disorders (20 sources) Pain in left knee; Translations: [Pain in joint, lower leg] Onset: 06-26-2018 12-01-2023 Episodic Other non-traumatic joint disorders (20 sources) Pain in left shoulder; Translations: [Pain in joint, shoulder region] Onset: 07-12-2020 Resolved: 04-02-2021 04-02-2021 Episodic Other non-traumatic joint disorders (20 sources) Pain in unspecified knee; Translations: [Pain in joint, lower leg] Onset: 05-27-2014 Resolved: 08-17-2018 08-17-2018 Episodic Other screening for suspected conditions (not mental disorders or infectious disease) (20 sources) Encounter for screening mammogram for malignant neoplasm of breast; Translations: [Patient encounter status] Onset: 11-20-2017 Episodic Residual codes; unclassified (20 sources) Family history of cancer of colon; Translations: [Family history of malignant neoplasm of digestive organs] Onset: 01-28-2014 01-28-2014 Episodic Residual codes; unclassified (2 sources) Tobacco use; Translations: [Tobacco use] Onset: 04-09-2014 Episodic Spondylosis; intervertebral disc disorders; other back [...] sources) NEGATIVE MEDICAL HISTORY Resolved: 08-17-2018 03-08-2021 Unclassified (1 source) Patient encounter status 10-22-2024 Results Test Name Value Interpretation Reference Range Facility [facility] 10-30-2024 CNOV Office Visit (PULMWS ) JENNIFER RIVAS ([id number]) 1960 F Date Time Provider Department 10/30/24 11:30 AM SASKIA JOINER PULDuncanWS During your visit today, we recorded the following information about you: Pulse Respiration Blood pressure Weight 74/minute 16/minute 114/74 96.2 kg Height 1.525 m Alina Bloom LPN 10/30/2024 12:26 PM Signed Offered interpretor- declined. States reads bolivian okay but does understand bolivian verbally well. ANN Gardner Christine M, APRN.ETL TESTER 10/30/2024 12:26 PM Signed Pulmonary Medicine Patients name: Jennifer Mcmullen PCP: Leonid Rice MD CC: follow-up HPI: Jennifer Mcmullen is a 63 year old female current 5 cigarette a day smoker, 22 pack year history, with a PMH of Asthma and COPD overlap, Depression/Anxiety, DM, JOSSELIN, Chronic pain, Lung nodule. Previously seen by Dr. Hensley in [place] with JOJO 08/[address] Hampton for COPD exacerbation. Had been in the ED twice in August and hospitalized for COPD exacerbation. Transferring care to [place] [facility] home. Current inhaled therapy with Wixela and PRN Albuterol, Duoneb. She presents today for updated testing and follow-up. Since her last visit, she reports doing well. Using Nicotine patches for smoking cessation which she has found to be helpful. She wants to quit smoking. She reports compliance with her ICS/LABA but does not like the powder. Makes it hard to be compliant with the inhaler. Currently uses Albuterol at least once a week. Today, patient denies cough, wheezing, and chest tightness. Denies significant shortness of breath at rest or with exertion. No nocturnal symptoms. No fevers, chills, or night sweats. No recent hospitalizations or ED visits or upper respiratory infections. Heat/humidity exacerbates her breathing. She has JOSSELIN but does not wear CPAP. Does not like the mask and would like to know of other options. PAST MEDICAL HISTORY Diagnosis Date Acute medial meniscus tear of left knee 01/16/2024 Arthritis Asthma Asthma ([facility]) 01/15/2015 Asthma with chronic obstructive pulmonary disease (COPD) ([facility]) 12/31/2021 Chronic low back pain 05/27/2014 Work injury 2006 Depression [facility] Diabetes mellitus ([facility]) Disc slipped disc in back Fracture of right ankle Head injury Helicobacter pylori infection 09/12/2016 Hernia, hiatal Hyperglycemia 2010 Insomnia JOSSELIN (obstructive sleep apnea) 02/25/2019 Post-traumatic headache 01/16/2014 Postmenopausal Prediabetes 04/08/2019 PTSD (post-traumatic stress disorder) Tobacco use Allergies: Latex Itching Voltaren [Diclofena* Other: See Comments Comment:voltaren gel causes burning sensation to area in which it is applied Medication List Accurate as of October 30, 2024 8:40 AM. If you have any questions, ask your nurse or doctor. CONTINUE taking these medications * albuterol 2.5 mg /3 mL (0.083 %) nebulizer solution Commonly known as: PROVENTIL Use 3 mL via nebulizer every 4 hours as needed for wheezing/shortness of breath. * albuterol HFA 90 mcg/actuation inhaler Commonly known as: PROVENTIL HFA, VENTOLIN HFA Inhale 2 Puffs as instructed every 4 hours as needed for wheezing/shortness of breath. blood sugar diagnostic test strip Commonly known as: BLOOD GLUCOSE TEST Test blood sugar(s) 1 times daily. Dx: Type 2 DM - Controlled E11.9 Insulin: No COMPOUNDED PRESCRIPTION NEBULIZER FOR HOME USE. DX: J45.41. Nebulizer and supplies. Face mask preferred. FLUoxetine 20 mg capsule Commonly known as: PROzac Take 1 capsule by mouth once daily. fluticasone-salmeterol 250-50 mcg/dose inhaler Commonly known as: WIXELA INHUB Inhale 1 puff as instructed two times a day. guaiFENesin 600 mg 12 hr tablet Commonly known as: MUCINEX ipratropium-albuterol 0.5 mg-3 mg(2.5 mg base)/3 mL Nebu Commonly known as: DUONEB Inhale 3 mL as instructed every 6 hours as needed for wheezing/shortness of breath. Lancets Test blood sugar(s) 1 times daily. Dx: Type 2 DM - Controlled E11.9 Insulin: No naproxen 500 mg tablet Commonly known as: NAPROSYN Take 1 tablet by mouth two times a day as needed for pain (for pain/inflammation). Take with food. * nicotine 21 mg/24 hr Commonly known as: NICODERM * nicotine 14 mg/24 hr Commonly known as: NICODERM CQ Apply 1 patch as directed every 24 hours for 28 days. Patient should start on September 25, 2024. * nicotine 7 mg/24 hr Commonly known as: NICODERM CQ Apply 1 patch as directed every 24 hours for 28 days. Patient should start on October 28, 2024. predniSONE 10 mg tablet Commonly known as: DELTASONE topiramate 50 mg tablet Commonly known as: TOPAMAX Take 1 tablet by mouth once daily. * This list has 5 medication(s) that are the same as other medications prescribed for you. Read the directions carefully, and ask (more content not included)... Normal [facility] LUNG DIFFUSION CAPACITY (LIZ O)on 10-30-2024 LUNG DIFFUSION CAPACITY (DLCO) [facility] [place] [address] [place] [address] Test Date: 2024-10-30 Pat Name: JENNIFER MCMULLEN Department: Room: Gender: Female Chief Scientific Officer: : 1960 Requested By: Order Number: [id number] Reading MD: Dayna Silva MD Interpretive Statements Medications and Allergies were reviewed for possible drug interactions per policy. No contraindications or sensitivities were noted. Meds taken: Advair 12 hours before testing. 2 puffs Albuterol (180 mcg) delivered by MDI via holding chamber. HR pre = 74/min, HR post = 74/min. Current ATS/ERS acceptability and repeatability standards for DLCO met with 2 acceptable maneuvers. Lung volumes are repeatable x 3. Current ATS/ERS acceptability and repeatability standards for spirometry met. Start of test and EOFE criteria met. IMPRESSION: Spirometry indicates no obstruction. The reduced FVC could indicate restriction, recommend lung volumes for definitive determination. Negative bronchodilator response. Decrease in TLC indicates restriction. The diffusion capacity (uncorrected for hemoglobin) is normal. Electronically Signed On 10-30-2024 17:10:19 EDT by Dayna Silva MD ID: [id number] Name: JENNIFER RIVAS Race: White Ht: 60.04 in Wt: 212.00 lbs Age: 63 Gender: Female : 1960 Dx: COPD_ Smoking Hx: Non-smoker Doctor: KADIE HAMPTON Test Date: 10/30/2024 Site: [facility] Galvez: Suha Dodson PRE-BRONCH POST-BRONCH Enedelia LLN Pred ULN %Pred ZScore Enedelia %Pred %Chg ZScore SPIROMETRY FVC 1.43 1.80 2.48 3.19 57 -2.55 1.45 58 0 -2.50 FEV1 1.14 1.43 2.00 2.54 56 -2.43 1.21 60 3 -2.23 FEV1/FVC 0.80 0.68 0.81 0.91 99 -0.11 0.84 104 5 0.51 FEFMax 3.30 4.09 5.59 7.10 58 -2.51 4.28 76 29 -1.43 FEF50 1.71 1.36 2.97 4.58 57 -1.29 2.03 68 18 -0.96 FIF50 2.02 2.73 35 FEF50/FIF50 0.85 90-100 0.74 -12 FIVC 1.18 1.21 2 AQG30-03 1.18 1.01 2.00 3.35 59 -1.31 1.55 77 31 -0.67 ExpiredTime 5.29 4.51 -14 TimeToFEFMax 0.13 0.09 -31 JOBY 0.08 0.07 -11 VolExtrap% 6 5 -12 LUNG VOLUMES FRC(Pleth) 1.65 1.64 2.31 3.15 71 -1.61 ERV 0.30 0.83 36 RV(Pleth) 1.35 0.94 1.54 2.31 87 -0.46 SVC 1.46 1.80 2.48 3.19 58 -2.47 IC 1.06 1.66 63 TLC(Pleth) 2.71 3.55 4.41 5.37 61 -3.50 RV/TLC(Pleth) 50 23 34 46 145 2.16 LUNG DIFFUSION DLCOunc 14.07 13.51 17.67 22.75 79 -1.40 DLCOStdPB 13.80 13.51 17.67 22.75 78 -1.52 VA 2.44 3.28 4.06 4.92 60 -3.64 Kco 5.66 3.38 4.38 5.52 129 1.84 Comments: Medications and Allergies were reviewed for possible drug interactions per policy. No contraindications or sensitivities were noted. Meds taken: Advair 12 hours before testing. 2 puffs Albuterol (180 mcg) delivered by MDI via holding chamber. HR pre = 74/min, HR post = 74/min. Current ATS/ERS acceptability and repeatability standards for DLCO met with 2 acceptable maneuvers. Lung volumes are repeatable x 3. Current ATS/ERS acceptability and repeatability standards for spirometry met. Start of test and EOFE criteria met. Normal [facility] LUNG VOLUMESon 10-30-2024 LUNG VOLUMES [facility] [place] [address] [place] [address] Test Date: 2024-10-30 Pat Name: JENNIFER MCMULLEN Department: Room: Gender: Female Chief Scientific Officer: : 1960 Requested By: Order Number: [id number] Reading MD: Dayna Silva MD Interpretive Statements Medications and Allergies were reviewed for possible drug interactions per policy. No contraindications or sensitivities were noted. Meds taken: Advair 12 hours before testing. 2 puffs Albuterol (180 mcg) delivered by MDI via holding chamber. HR pre = 74/min, HR post = 74/min. Current ATS/ERS acceptability and repeatability standards for DLCO met with 2 acceptable maneuvers. Lung volumes are repeatable x 3. Current ATS/ERS acceptability and repeatability standards for spirometry met. Start of test and EOFE criteria met. IMPRESSION: Spirometry indicates no obstruction. The reduced FVC could indicate restriction, recommend lung volumes for definitive determination. Negative bronchodilator response. Decrease in TLC indicates restriction. The diffusion capacity (uncorrected for hemoglobin) is normal. Electronically Signed On 10-30-2024 17:10:19 EDT by Dayna Silva MD ID: [id number] Name: JENNIFER RIVAS Race: White Ht: 60.04 in Wt: 212.00 lbs Age: 63 Gender: Female : 1960 Dx: COPD_ Smoking Hx: Non-smoker Doctor: KADIE HAMPTON Test Date: 10/30/2024 Site: [facility] Tech: Suha Dodson PRE-BRONCH POST-BRONCH Enedelia LLN Pred ULN %Pred ZScore Enedelia %Pred %Chg ZScore SPIROMETRY FVC 1.43 1.80 2.48 3.19 57 -2.55 1.45 58 0 -2.50 FEV1 1.14 1.43 2.00 2.54 56 -2.43 1.21 60 3 -2.23 FEV1/FVC 0.80 0.68 0.81 0.91 99 -0.11 0.84 104 5 0.51 FEFMax 3.30 4.09 5.59 7.10 58 -2.51 4.28 76 29 -1.43 FEF50 1.71 1.36 2.97 4.58 57 -1.29 2.03 68 18 -0.96 FIF50 2.02 2.73 35 FEF50/FIF50 0.85 90-100 0.74 -12 FIVC 1.18 1.21 2 EPM01-87 1.18 1.01 2.00 3.35 59 -1.31 1.55 77 31 -0.67 ExpiredTime 5.29 4.51 -14 TimeToFEFMax 0.13 0.09 -31 JOBY 0.08 0.07 -11 VolExtrap% 6 5 -12 LUNG VOLUMES FRC(Pleth) 1.65 1.64 2.31 3.15 71 -1.61 ERV 0.30 0.83 36 RV(Pleth) 1.35 0.94 1.54 2.31 87 -0.46 SVC 1.46 1.80 2.48 3.19 58 -2.47 IC 1.06 1.66 63 TLC(Pleth) 2.71 3.55 4.41 5.37 61 -3.50 RV/TLC(Pleth) 50 23 34 46 145 2.16 LUNG DIFFUSION DLCOunc 14.07 13.51 17.67 22.75 79 -1.40 DLCOStdPB 13.80 13.51 17.67 22.75 78 -1.52 VA 2.44 3.28 4.06 4.92 60 -3.64 Kco 5.66 3.38 4.38 5.52 129 1.84 Comments: Medications and Allergies were reviewed for possible drug interactions per policy. No contraindications or sensitivities were noted. Meds taken: Advair 12 hours before testing. 2 puffs Albuterol (180 mcg) delivered by MDI via holding chamber. HR pre = 74/min, HR post = 74/min. Current ATS/ERS acceptability and repeatability standards for DLCO met with 2 acceptable maneuvers. Lung volumes are repeatable x 3. Current ATS/ERS acceptability and repeatability standards for spirometry met. Start of test and EOFE criteria met. Normal [facility] NITRIC OXIDE, EXHALEDon 08-2 Suha Dodson RPTristin T 10/30/2024 10:33 AM RESPIRATORY THERAPY ORAL EXHALED NITRIC OXIDE SERVICE DATE: 10/30/2024 SERVICE TIME: 10:19 AM Oral Exhaled Nitric Oxide measurement: <5.0 (ppb) Normal: Adult <25 ppb, pediatric (<12 years) <20 ppb High Normal / Increased: Adult 25-50 ppb, pediatric (<12 years) 20-35 ppb Moderately raised exhaled Nitric Oxide may indicate underlying inflammation, but note that: Cold and influenza can raise exhaled Nitric Oxide and some patients have higher baseline exhaled Nitric Oxide levels than others. High: Adult >50 ppb, pediatric (<12 years) >35 ppb Indicative of ongoing eosinophilic inflammation. Symptomatic patient likely to respond to steroids. Possible causes (if already on steroids): Poor compliance, recent allergen exposure, steroid dose inadequate, and steroid resistance. Note that not all patients with high exhaled nitric oxide levels display symptoms. Oral Exhaled Nitric Oxide measurement (Previous Encounters) Test Date Oral Exhaled Nitric Oxide (ppb) 10/30/2024 <5.0 01/22/2019 6.0 NAME: Suha RussvangieNITIN PATIENT NAME: Jennifer Mcmullen DATE: October 30, 2024 TIME: 10:19 AM [facility] NITRIC OXIDE, EXHALEDOrdered By: Suha Dodson on 10-30-2024 [facility] No Panel Informationon 10-30 [facility] [address] [address] Test Date: 2024-10-30 Pat Name: JENNIFER MCMULLEN Department: Room: Gender: Female Chief Scientific Officer: : 1960 Requested By: Order Number: [id number] Reading MD: Dayna Silva MD Interpretive Statements Medications and Allergies were reviewed for possible drug interactions per policy. No contraindications or sensitivities were noted. Meds taken: Advair 12 hours before testing. 2 puffs Albuterol (180 mcg) delivered by MDI via holding chamber. HR pre = 74/min, HR post = 74/min. Current ATS/ERS acceptability and repeatability standards for DLCO met with 2 acceptable maneuvers. Lung volumes are repeatable x 3. Current ATS/ERS acceptability and repeatability standards for spirometry met. Start of test and EOFE criteria met. IMPRESSION: Spirometry indicates no obstruction. The reduced FVC could indicate restriction, recommend lung volumes for definitive determination. Negative bronchodilator response. Decrease in TLC indicates restriction. The diffusion capacity (uncorrected for hemoglobin) is normal. Electronically Signed On 10-30-2024 17:10:19 EDT by Dayna Silva MD ID: [id number] Name: JENNIFER RIVAS Race: White Ht: 60.04 in Wt: 212.00 lbs Age: 63 Gender: Female : 1960 Dx: COPD_ Smoking Hx: Non-smoker Doctor: KADIE HAMPTON Test Date: 10/30/2024 Site: Tech: Suha Dodson PRE-BRONCH POST-BRONCH Enedelia LLN Pred ULN %Pred ZScore Enedelia %Pred %Chg ZScore SPIROMETRY FVC 1.43 1.80 2.48 3.19 57 -2.55 1.45 58 0 -2.50 FEV1 1.14 1.43 2.00 2.54 56 -2.43 1.21 60 3 -2.23 FEV1/FVC 0.80 0.68 0.81 0.91 99 -0.11 0.84 104 5 0.51 FEFMax 3.30 4.09 5.59 7.10 58 -2.51 4.28 76 29 -1.43 FEF50 1.71 1.36 2.97 4.58 57 -1.29 2.03 68 18 -0.96 FIF50 2.02 2.73 35 FEF50/FIF50 0.85 90-100 0.74 -12 FIVC 1.18 1.21 2 DTU97-87 1.18 1.01 2.00 3.35 59 -1.31 1.55 77 31 -0.67 ExpiredTime 5.29 4.51 -14 TimeToFEFMax 0.13 0.09 -31 JOBY 0.08 0.07 -11 VolExtrap% 6 5 -12 LUNG VOLUMES FRC(Pleth) 1.65 1.64 2.31 3.15 71 -1.61 ERV 0.30 0.83 36 RV(Pleth) 1.35 0.94 1.54 2.31 87 -0.46 SVC 1.46 1.80 2.48 3.19 58 -2.47 IC 1.06 1.66 63 TLC(Pleth) 2.71 3.55 4.41 5.37 61 -3.50 RV/TLC(Pleth) 50 23 34 46 145 2.16 LUNG DIFFUSION DLCOunc 14.07 13.51 17.67 22.75 79 -1.40 DLCOStdPB 13.80 13.51 17.67 22.75 78 -1.52 VA 2.44 3.28 4.06 4.92 60 -3.64 Kco 5.66 3.38 4.38 5.52 129 1.84 Comments: Medications and Allergies were reviewed for possible drug interactions per policy. No contraindications or sensitivities were noted. Meds taken: Advair 12 hours before testing. 2 puffs Albuterol (180 mcg) delivered by MDI via holding chamber. HR pre = 74/min, HR post = 74/min. Current ATS/ERS acceptability and repeatability standards for DLCO met with 2 acceptable maneuvers. Lung volumes are repeatable x 3. Current ATS/ERS acceptability and repeatability standards for spirometry met. Start of test and EOFE criteria met. PULMONARY FUNCTION LAB [facility] OXIMETRY WITH AMBULATIONon 0 10-30-2024 Suha Dodson RPF T 10/30/2024 10:33 AM RESPIRATORY THERAPY OXIMETRY WITH AMBULATION Oximetry with Ambulation Test for This Encounter O2 Device O2 Adapter NC O2 Flow SpO2% HR Activity Ft Walked (ft) Time (min) Avg Speed (MPH) R/A 97 74 Resting R/A 97 103 Walking, usual pace 350 3 1.33 R/A 96 106 Walking, fastest pace 360 3 1.36 General Information Pulse Oximetry Site Total Time Spent Walking Assistance/O2 Supply Carrier Forehead 30 None NAME: NITIN Coleman PATIENT NAME: Jennifer Mcmullen DATE: October 30, 2024 TIME: 10:33 AM Comment: [facility] OXIMETRY WITH AMBULATIONOrde red By: Suha Dodson on 10-30-2024 [facility] SPIROMETRY - BASELINE AND PO ST DILATORon 10-30-2024 DLCO (ml/min/mmHg) 14.07 ml/min/mmHg [facility] DLCO LLN (ml/min/mmHg) 13.51 ml/min/mmHg C [facility] DLCO PREDICTED (ml/min/mmHg) 17.67 ml/min/mmHg [facility] DLCO ULN (ml/min/mmHg) 22.75 ml/min/mmHg C [facility] DLCO/VA (ml/min/mmHg/L) 0.06 ml/m in/mmHg /[facility] PREDICTED (ml/min/mmHg/L) 0.05 ml/min/mmHg /L [facility] DLCO/VAcor (ml/min/mmHg/L) 0.06 ml/min/mmHg /L [facility] DLCOcor (ml/min/mmHg) 13.80 ml/min/mmHg Cl [facility] DLCOcor PREDICTED (ml/min/mmHg) 17.67 ml/min/mmHg [facility] ERV BOX (L) 0.30 L [facility] ERV PREDICTED (L) 0.83 L/S [facility] FEF25% POST (L/S) 4.27 L/S [facility] FEF25% PRE (L/S) 3.05 L/S [facility] TTA46-70% LLN (L/S) 1.01 L/S [place] [facility] KLI92-94% POST (L/S) 1.55 L/S [facility] YXO77-04% PRE (L/S) 1.18 L/S [facility] IKR00-04% PREDICTED (L/S) 2.00 L/S [place] [facility] FEF75% LLN (L/S) 0.21 L/S [facility] FEF75% POST (L/S) 0.53 L[facility] FEF75% PRE (L/S0 0.35 L[facility] FEF75% PREDICTED (L/S) 0.53 L/S [facility] FEF75% ULN (L/S) 1.27 L/S [facility] FET POST (S) 4.51 S [facility] FET PRE (S) 5.29 S [facility] FEV1 LLN (L) 1.43 L [facility] FEV1 PRE (L) 1.14 L [facility] FEV1 PREDICTED (L) 2.00 L [facility] FEV1 ULN (L) 2.54 L [facility] FEV1/FVC LLN (%) 68 % [facility] FEV1/FVC POST (%) 84 % [facility] FEV1/FVC PRE (%) 80 % [facility] FEV1/FVC PREDICTED (%) 81 % Cl [facility] FEV1_POST (L) 1.21 L [facility] FRC Box (L) 1.65 L [facility] FVC LLN (L) 1.80 L [facility] FVC POST (L) 1.45 L [facility] FVC PRE (L) 1.43 L [facility] FVC PREDICTED (L) 2.48 L [facility] FVC ULN (L) 3.19 L [facility] IC BOX (L) 1.06 L [facility] IC PREDICTED (L) 1.66 L/S [facility] PEF LLN (L/S) 4.09 L/S [facility] PEF POST (L/S) 4.28 L/S [facility] PEF PRE (L/S) 3.30 L/S [facility] PEF ULN (L/S) 7.10 L/S [facility] RV Box (L) 1.35 L [facility] RV Box PREDICTED (L) 1.54 L [facility] RV/TLC Box (%) 50 % [facility] RV/TLC Box PREDICTED (%) 34 % [facility] SVC LLN (L) 1.80 L/S [facility] SVC PREDICTED (L) 2.48 L/S [facility] SVC ULN (L) 3.19 L/S [facility] TLC Box (L) 2.71 L [facility] TLC Box PREDICTED (L) 4.41 L [facility] (L) 2.44 L [facility] VA PREDICTED (L) 4.06 L [facility] VC (L) BOX 1.46 L [facility] SPIROMETRY - BASELINE AND POST DILATOR [facility] [place] [address] [address] [place] [address] Test Date: 2024-10-30 Pat Name: JENNIFER MCMULLEN Department: Room: Gender: Female Chief Scientific Officer: : 1960 Requested By: Order Number: [id number] Reading MD: Dayna Silva MD Interpretive Statements Medications and Allergies were reviewed for possible drug interactions per policy. No contraindications or sensitivities were noted. Meds taken: Advair 12 hours before testing. 2 puffs Albuterol (180 mcg) delivered by MDI via holding chamber. HR pre = 74/min, HR post = 74/min. Current ATS/ERS acceptability and repeatability standards for DLCO met with 2 acceptable maneuvers. Lung volumes are repeatable x 3. Current ATS/ERS acceptability and repeatability standards for spirometry met. Start of test and EOFE criteria met. IMPRESSION: Spirometry indicates no obstruction. The reduced FVC could indicate restriction, recommend lung volumes for definitive determination. Negative bronchodilator response. Decrease in TLC indicates restriction. The diffusion capacity (uncorrected for hemoglobin) is normal. Electronically Signed On 10-30-2024 17:10:19 EDT by Dayna Silva MD ID: [id number] Name: JENNIFER RIVAS Race: White Ht: 60.04 in Wt: 212.00 lbs Age: 63 Gender: Female : 1960 Dx: COPD_ Smoking Hx: Non-smoker Doctor: KADIE HAMPTON Test Date: 10/30/2024 Site: Tech: Suha Dodson PRE-BRONCH POST-BRONCH Enedelia LLN Pred ULN %Pred ZScore Enedelia %Pred %Chg ZScore SPIROMETRY FVC 1.43 1.80 2.48 3.19 57 -2.55 1.45 58 0 -2.50 FEV1 1.14 1.43 2.00 2.54 56 -2.43 1.21 60 3 -2.23 FEV1/FVC 0.80 0.68 0.81 0.91 99 -0.11 0.84 104 5 0.51 FEFMax 3.30 4.09 5.59 7.10 58 -2.51 4.28 76 29 -1.43 FEF50 1.71 1.36 2.97 4.58 57 -1.29 2.03 68 18 -0.96 FIF50 2.02 2.73 35 FEF50/FIF50 0.85 90-100 0.74 -12 FIVC 1.18 1.21 2 HKQ71-19 1.18 1.01 2.00 3.35 59 -1.31 1.55 77 31 -0.67 ExpiredTime 5.29 4.51 -14 TimeToFEFMax 0.13 0.09 -31 JOBY 0.08 0.07 -11 VolExtrap% 6 5 -12 LUNG VOLUMES FRC(Pleth) 1.65 1.64 2.31 3.15 71 -1.61 ERV 0.30 0.83 36 RV(Pleth) 1.35 0.94 1.54 2.31 87 -0.46 SVC 1.46 1.80 2.48 3.19 58 -2.47 IC 1.06 1.66 63 TLC(Pleth) 2.71 3.55 4.41 5.37 61 -3.50 RV/TLC(Pleth) 50 23 34 46 145 2.16 LUNG DIFFUSION DLCOunc 14.07 13.51 17.67 22.75 79 -1.40 DLCOStdPB 13.80 13.51 17.67 22.75 78 -1.52 VA 2.44 3.28 4.06 4.92 60 -3.64 Kco 5.66 3.38 4.38 5.52 129 1.84 Comments: Medications and Allergies were reviewed for possible drug interactions per policy. No contraindications or sensitivities were noted. Meds taken: Advair 12 hours before testing. 2 puffs Albuterol (180 mcg) delivered by MDI via holding chamber. HR pre = 74/min, HR post = 74/min. Current ATS/ERS acceptability and repeatability standards for DLCO met with 2 acceptable maneuvers. Lung volumes are repeatable x 3. Current ATS/ERS acceptability and repeatability standards for spirometry met. Start of test and EOFE criteria met. FVC_PRE (L) : 1.43 L FVC_POST (L) : 1.45 L FVC_PRED (L) : 2.48 L FVC_LLN (L) : 1.80 L FVC_ULN (L) : 3.19 L FEV1_PRE (L) : 1.14 L FEV1_POST (L) : 1.21 L FEV1_PRED (L) : 2.00 L FEV1_LLN (L) : 1.43 L FEV1_ULN (L) : 2.54 L FEV1/FVC_PRE (%) : 80 % FEV1/FVC_POST (%) : 84 % FEV1/FVC_PRED (%) : 81 % FEV1/FVC_LLN (%) : 68 % NON56_NGH (L/S) : 3.05 L/S CPA27_QFYA (L/S) : 4.27 L/S WWD59_JBF (L/S) : 0.35 L/S YAM31_JTPB (L/S) : 0.53 L/S MHD11_EIVQ (L/S) : 0.53 L/S HKI78_IBX (L/S) : 0.21 L/S UIE07_ZZH (L/S) : 1.27 L/S OTS44-63%_PRE (L/S) : 1.18 L/S WSG40-62%_POST (L/S) : 1.55 L/S BXS72-00%_PRED (L/S) : 2.00 L/S BGK71-64%_LLN (L/S) : 1.01 L/S PEF_PRE (L/S) : 3.30 L/S PEF_POST (L/S) : 4.28 L/S PEFMAX_LLN (L/S) : 4.09 L/S PEFMAX_ULN (L/S) : 7.10 L/S VC BOX (L) : 1.46 L SVC_PRED (L) : 2.48 L/S SVC_LLN (L) : 1.80 L/S SVC_ULN (L/S) : 3.19 L/S IC BOX (L) : 1.06 L IC_PRED (L) : 1.66 L/S ERV BOX (L) : 0.30 L ERV_PREDICTED (L) : 0.83 L/S DLCO (ML/MIN/MMHG) : 14.07 ml/min/mmHg DLCO_PRED (ML/MIN/MMHG) : 17.67 ml/min/mmHg DLCO_LLN(ML/MIN/MMHG) : 13.51 ml/min/mmHg DLCO_ULN (ML/MIN/MMHG) : 22.75 ml/min/mmHg FET_PRE (S) : 5.29 S FET_POST (S) : 4.51 S FRC BOX (L) : 1.65 L RV BOX (L) : 1.35 L RV_PLETH_PRED (L) : 1.54 L TLC BOX (L) : 2.71 L TLC_PLETH_PRED (L) : 4.41 L RV/TLC BOX (%) : 50 % RV_TLC_PLETH_PRED (%) : 34 % VA (L) : 2.44 L VA_PRD (L) : 4.06 L DLCO/VA (ML/MIN/MMHG/L) : 0.06 ml/min/mmHg/L DLCO_VA_PRED (L) : 0.05 ml/min/mmHg/L DLCOCOR (ML/MIN/MMHG) : 13.80 ml/min/mmHg DLCOCOR_PRED (ML/MIN/MMHG) : 17.67 ml/min/mmHg DLCO/VACOR (ML/MIN/MMHG/L) : 0.06 ml/min/mmHg/L Normal [facility] CNOVon 09-02-2024 CNOV Office Visit (INTMWS ) JENNIFER RIVAS ([id number]) 1960 F Date Time Provider Department 09/02/24 4:20 PM LEONID RICE INTMWS During your visit today, we recorded the following information about you: Temperature Pulse Blood pressure Weight 98 degrees 80/minute 108/70 94.4 kg Leonid Rice MD 09/02/2024 4:57 PM Signed This note was created using [employer]. Subjective Jennifer Mcmullen is a 63 year old female here with her daughter. She had been out of fluxoetine, trazodone, and topiramate for months. [facility] and was told she had not been seen recently so she was wait listed. She was here to get medication refills. Her headaches were stable. Review of Systems Psychiatric/Behavioral : Positive for dysphoric mood. The patient is nervous/anxious. ACTIVE PROBLEM LIST Depression Tobacco Use Family History of Colon Cancer Epigastric Abdominal Pain Anxiety Ddd (Degenerative Disc Disease), Lumbar Chronic Low Back Pain Constipation Post-Traumatic Headache Josselin (Obstructive Sleep Apnea) Obesity, Class III, BMI >= 40 Type 2 Diabetes Mellitus Without Complication, Without Long-Term Current Use of Insulin ([facility]) Screening for Colon Cancer Chronic Pain of Left Knee Nausea Copd With Acute Exacerbation ([facility]) Asthma With Chronic Obstructive Pulmonary Disease (Copd) ([facility]) Social History Tobacco Use Smoking status: Every Day Current packs/day: 0.50 Average packs/day: 0.5 packs/day for 44.5 years (22.2 ttl pk-yrs) Types: Cigarettes Start date: 03/1980 Smokeless tobacco: Never Vaping Use Vaping status: Never Used Substance Use Topics Alcohol use: No Drug use: No Current Outpatient Medications Medication Sig [START ON 10/28/2024] nicotine (NICODERM CQ) 7 mg/24 hr Apply 1 patch as directed every 24 hours for 28 days. Patient should start on October 28, 2024. guaiFENesin (MUCINEX) 600 mg 12 hr tablet Take 1,200 mg by mouth two times a day as needed for cold/allergy symptoms. predniSONE (DELTASONE) 10 mg tablet 10 mg once daily. ipratropium-albuterol (DUONEB) 0.5 mg-3 mg(2.5 mg base)/3 mL nebu Inhale 3 mL as instructed every 6 hours as needed for wheezing/shortness of breath. fluticasone-salmeterol (WIXELA INHUB) 250-50 mcg/dose inhaler Inhale 1 puff as instructed two times a day. topiramate (TOPAMAX) 50 mg tablet Take 1 tablet by mouth two times a day. (Patient taking differently: Take 25 mg by mouth two times a day.) naproxen (NAPROSYN) 500 mg tablet Take 1 [...] hours as needed for wheezing/shortness of breath. FLUoxetine (PROZAC) 40 mg capsule Take 40 mg by mouth once daily. Noble [facility] C[facility]. (Patient taking differently: Take 20 mg by mouth once daily. [facility] C[facility].) albuterol (PROVENTIL) 2.5 mg /3 mL (0.083 %) nebulizer solution Use 3 mL via nebulizer every 4 hours as needed for wheezing/shortness of breath. traZODone (DESYREL) 100 mg tablet Take 2 tablets by mouth daily at bedtime. [facility] C[facility]. Nebulizer NEBULIZER FOR HOME USE. DX: J45.41. Nebulizer and supplies. Face mask preferred. [START ON 09/25/2024] nicotine (NICODERM CQ) 14 mg/24 hr Apply 1 patch as directed every 24 hours for 28 days. Patient should start on September 25, 2024. benzonatate (TESSALON PERLE) 100 mg capsule 200 mg. (Patient not taking: Reported on 09/02/2024) nicotine (NICODERM) 21 mg/24 hr once daily. No current facility-administered medications for this visit. Objective BP 108/70 Pulse 80 Temp 36.7 ?C (98 ?F) (Temporal) Wt 94.4 kg (208 lb 1.8 oz) BMI 40.64 kg/m? Physical Exam Constitutional: General: She is not in acute distress. Appearance: She is not ill-appearing. Neurological: Mental Status: She is alert. Psychiatric: Mood and Affect: Mood normal. Behavior: Behavior normal. Assessment and Plan 1. Severe episode of recurrent major depressive disorder, without psychotic features (HCC) - ICD9: 296.33, ICD10: F33.2 (primary diagnosis) Shared medical decision making was done. I agreed to refill one medication. She recalled her dose of fluoxetine was reduced to 20 mg. - FLUOXETINE 20 MG CAPSULE 2. Anxiety - ICD9: 300.00, ICD10: F41.9 See above. She will wait for her appointment at the [facility] for reevaluation of her management. - FLUOXETINE 20 MG CAPSULE 3. Chronic post-traumatic headache, not intractable - ICD (more content not included)... [facility] JENNIFER RIVAS ([id number]) 1960 F Date Time Provider Department 09/02/24 LEONID RICE INTMWS During your visit today, we recorded the following information about you: Greer Nielsen RN 09/02/2024 11:16 AM Signed Patient calls and states that she is needing alprazolam. Patient reports that she was given this medication while she was was in hospital. Patient also states that she is needing trazodone and fluoxetine. Advised patient that PCP does not prescribed this medication and she needs to call counseling center. [place] and she was unable to see provider at counseling center. Patient states that she made an appointment but it is far out and she is needing medication now. Patient states that she does not want to go back into hospital and is requesting appointment to see PCP. Patient scheduled today to see Dr. Rice. Greer Nielsen RN Allergies As of Date: 09/02/2024 Noted Allergy Reaction LATEX 10/10/2013 9 - Itching VOLTAREN (DICLOFENAC SODIUM) 07/31/2015 14 - Other: See Comments Comments: voltaren gel causes burning sensation to area in which it is applied Date Reviewed: 08/30/2024 Reviewed by: Tita Interiano MA - Fully Assessed Reason for Visit: Patient Update [1234] Prescriptions as of 09/02/2024 - nicotine (NICODERM CQ) 14 mg/24 hr Apply 1 patch as directed every 24 hours for 28 days. Patient should start on September 25, 2024. - nicotine (NICODERM CQ) 7 mg/24 hr Apply 1 patch as directed every 24 hours for 28 days. Patient should start on October 28, 2024. - benzonatate (TESSALON PERLE) 100 mg capsule 200 mg. - guaiFENesin (MUCINEX) 600 mg 12 hr tablet Take 1,200 mg by mouth two times a day as needed for cold/allergy symptoms. - nicotine (NICODERM) 21 mg/24 hr once daily. - predniSONE (DELTASONE) 10 mg tablet 10 mg once daily. - ipratropium-albuterol (DUONEB) 0.5 mg-3 mg(2.5 mg base)/3 mL nebu Inhale 3 mL as instructed every 6 hours as needed for wheezing/shortness of breath. - fluticasone-salmeterol (WIXELA INHUB) 250-50 mcg/dose inhaler Inhale 1 puff as instructed two times a day. - topiramate (TOPAMAX) 50 mg tablet Take [...] as needed for wheezing/shortness of breath. - FLUoxetine (PROZAC) 40 mg capsule Take 40 [...] bedtime. [facility] C[facility]. - Nebulizer NEBULIZER FOR HOME USE. DX: J45.41. Nebulizer and supplies. Face mask preferred. Problem List As Of Date 09/02/2024 Noted Resolved Irreducible ventral hernia [K43.6] 03/02/2011 08/17/2018 Depression [F32.A] Disc [HAH9124] 08/17/2018 Hyperglycemia [R73.9] 12/15/2018 NEGATIVE MEDICAL HISTORY [V999.96] 08/17/2018 Tobacco use [Z72.0] Family history of colon cancer [Z80.0] 01/28/2014 Epigastric abdominal pain [R10.13] 01/28/2014 Abnormality of gait [R26.9] 01/28/2014 04/02/2021 Anxiety [F41.9] 04/09/2014 Back ache [M54.9] 04/09/2014 08/17/2018 Knee pain [M25.569] 05/27/2014 08/17/2018 DDD (degenerative disc disease), lumbar [M51.36*05/27/2014 Chronic low back pain [M54.50, G89.29] 05/27/2014 Constipation [K59.00] 06/06/2014 Myofascial pain [M79.18] 10/17/2014 08/17/2018 Asthma (HCC) [J45.909] 01/15/2015 08/30/2024 Incisional pain [L76.82] 02/06/2015 08/17/2018 Bilateral low back pain without sciatica [M54.5*02/16/2015 08/17/2018 Chronic pain [G89.29] 07/31/2015 08/17/2018 Helicobacter pylori infection [A04.8] 09/12/2016 08/17/2018 Post-traumatic headache [G44.309] 01/16/2014 JOSSELIN (obstructive sleep apnea) [G47.33] 02/25/2019 Obesity, Class III, BMI >= 40 [E66.813] 04/03/2019 Prediabetes [R73.03] 04/08/2019 10/28/2020 Acute pain of left shoulder [M25.512] 08/06/2020 04/02/2021 Type 2 diabetes mellitus without complication, *09/30/2020 Screening for colon cancer [Z12.11] 09/13/2023 Chronic pain of left knee [M25.562, G89.29] 01/16/2024 Acute medial meniscus tear of left knee [S83.24*01/16/2024 08/30/2024 Nausea [R11.0] 01/18/2024 COPD with acute exacerbation (HCC) [J44.1] 08/30/2024 Asthma with chronic obstructi (more content not included)... Normal [facility] CNOVon 08-30-2024 CNOV Office Visit (INTMWS ) JENNIFER RIVAS ([id number]) 1960 F Date Time Provider Department 08/30/24 1:40 PM LEONID RICE INTMWS During your visit today, we recorded the following information about you: Pulse Blood pressure Weight 83/minute 124/70 94.7 kg Leonid Rice MD 08/30/2024 2:42 PM Signed This note was created using [employer]. Subjective Jennifer Mcmullen is a 63 year old female. Patient/Patient Air Filler refused site surveyor services. Her family member helped translate. She had been staying in [place] for several months due to deaths in the family. On her return, she was admitted for COPD exacarbation 08/25 to 08/28. She was discharged, but returned to the ER 08/29 for dyspnea, where she improved with nebulizers and IV Medrol. She was better, and saw pulmonary yesterday. She is trying to quit smoking. Diabetes was diet controlled. Review of Systems Constitutional: Negative for fever. Respiratory: Positive for shortness of breath. Cardiovascular: Negative for chest pain. Gastrointestinal: Negative. Neurological: Negative. Psychiatric/Behavioral : Negative. ACTIVE PROBLEM LIST Depression Tobacco Use Family History of Colon Cancer Epigastric Abdominal Pain Anxiety Ddd (Degenerative Disc Disease), Lumbar Chronic Low Back Pain Constipation Asthma (Hcc) Post-Traumatic Headache Josselin (Obstructive Sleep Apnea) Obesity, Class III, BMI >= 40 Type 2 Diabetes Mellitus Without Complication, Without Long-Term Current Use of Insulin (Hcc) Screening for Colon Cancer Chronic Pain of Left Knee Acute Medial Meniscus Tear of Left Knee Nausea Social History Tobacco Use Smoking status: Every Day Current packs/day: 0.50 Average packs/day: 0.5 packs/day for 44.5 years (22.2 ttl pk-yrs) Types: Cigarettes Start date: 03/1980 Smokeless tobacco: Never Vaping Use Vaping status: Never Used Substance Use Topics Alcohol use: No Drug use: No Current Outpatient Medications Medication Sig benzonatate (TESSALON PERLE) 100 mg capsule 200 mg. guaiFENesin (MUCINEX) 600 mg 12 hr tablet Take 1,200 mg by mouth two times a day as needed for cold/allergy symptoms. nicotine (NICODERM) 21 mg/24 hr once daily. predniSONE (DELTASONE) 10 mg tablet 10 mg once daily. ipratropium-albuterol (DUONEB) 0.5 mg-3 mg(2.5 mg base)/3 mL nebu Inhale 3 mL as instructed every 6 hours as needed for wheezing/shortness of breath. fluticasone-salmeterol (WIXELA INHUB) 250-50 mcg/dose inhaler Inhale 1 puff as instructed two times a day. topiramate (TOPAMAX) 50 mg tablet Take 1 [...] hours as needed for wheezing/shortness of breath. FLUoxetine (PROZAC) 40 mg capsule Take 40 mg by mouth once daily. [facility]. albuterol (PROVENTIL) 2.5 mg /3 mL (0.083 %) nebulizer solution Use 3 mL via nebulizer every 4 hours as needed for wheezing/shortness of breath. traZODone (DESYREL) 100 mg tablet Take 2 tablets by mouth daily at bedtime. [facility] C[facility]. Nebulizer NEBULIZER FOR HOME USE. DX: J45.41. Nebulizer and supplies. Face mask preferred. [START ON 09/25/2024] nicotine (NICODERM CQ) 14 mg/24 hr Apply 1 patch as directed every 24 hours for 28 days. Patient should start on September 25, 2024. [START ON 10/28/2024] nicotine (NICODERM CQ) 7 mg/24 hr Apply 1 patch as directed every 24 hours for 28 days. Patient should start on October 28, 2024. No current facility-administered medications for this visit. Objective BP 124/70 (BP Site: Right Arm, BP Position: Sitting, BP Cuff Size: Regular Adult) Pulse 83 Wt 94.7 kg (208 lb 12.4 oz) SpO2 95% BMI 40.77 kg/m? Physical Exam Constitutional: General: She is not in acute distress. Appearance: She is not diaphoretic. Cardiovascular: Rate and Rhythm: Normal rate and regular rhythm. Heart sounds: No murmur heard. No gallop. Pulmonary: Effort: No respiratory distress. Breath sounds: Wheezing present. No rhonchi or rales. Musculoskeletal: Right lower leg: No edema. Left lower leg: No edema. Neurological: General: No focal deficit present. Mental Status: She is alert. Assessment and Plan 1. COPD with acute exacerbation (HCC) - ICD9: 491.21, ICD10: J44.1 (primary diagnosis) - Acute exacerbation - Continue current medications - Handicap parking permit. 2. Tobacco use - ICD9: 3 (more content not included)... Normal [facility] Absolute lymphocyte countOrd ered By: Lauri Fisher on 08-29-2024 Lymphocytes Auto (Unsp spec) [#/Vol] 2.51 10*3/uL 0.83-4.51 [facility] Absolute neutrophil countOrd ered By: Lauri Fisher on 08-29-2024 Neutrophils (Bld) [#/Vol] 10.5 10*3/uL High 2.0-7.7 [facility] Anion gap in Serum or Plasma Ordered By: Lauri Fisher on 08-29-2024 Anion gap [Moles/Vol] 11 mmol/L 5-15 [facility] Automated lymphocyte count a s percentage of total leukocytesOrdered By: Lauri Fisher on 08-29-2024 Lymphocytes/100 WBC Auto (Unsp spec) 17.0 % Low 19-41 [facility] BUN/creatinine ratioOrdered By: Lauri Fisher on 08-29-2024 Urea nitrogen/Creatinine [Mass ratio] 23.1 mg/mg High 10- [facility] Basic Metabolic Profile (BMP )on 08-29-2024 BUN/CRE 23.1 RATIO High - [facility] Comment on above: Performed By: #### M , #### [facility] [address] [place], [address] Calcium [Mass/Vol] 9.0 mg/dL Normal 7.6-11.0 [facility] Comment on above: Performed By: #### M , #### [facility] [address] [place], [address] Chloride [Moles/Vol] 102 mmol/L Normal 98-[address] [facility] Comment on above: Performed By: #### M , #### [facility] [address] [place], [address] CO2 [Moles/Vol] 25.5 mmol/L Normal 21.0-32.0 [facility] Comment on above: Performed By: #### M , #### [facility] [address] [place], [address] Creatinine [Mass/Vol] 1.00 mg/dL Normal 0.70-1.20 [facility] Comment on above: Performed By: #### M , #### [facility] [address] [place], [address] ECRCL 61.46 ml/min Normal 50-250 [facility] Comment on above: Performed By: #### M , #### [facility] [address] [place], [address] GAP 11 Normal 5-15 [facility] Comment on above: Performed By: #### M , #### [facility] [address] [place], [address] GFR/1.73 sq M.predicted among non-blacks MDRD (S/P/Bld) [Vol rate/Area] 64 mL/min/{1.73_m2} Normal >60 [facility] Comment on above: Result Comment: mL/m in/1.73m2 CKD-EPI Creatinine Equation (2020) Performed By: #### M , #### [facility] [address] [place], [address] Glucose [Mass/Vol] 180 mg/dL High 70-99 [facility] Comment on above: Performed By: #### M , #### [facility] [address] [place], [address] Potassium [Moles/Vol] 4.1 mmol/L Normal 3.3-5.1 [facility] Comment on above: Result Comment: Hemo lysis present, Results??could be affected. ?? Performed By: #### M , #### [facility] [address] [place], [address] Sodium [Moles/Vol] 138 mmol/L Normal 133-145 [facility] Comment on above: Performed By: #### M , #### [facility] [address] [place], [address] Urea nitrogen [Mass/Vol] 23 mg/dL High 4-19 [facility] Comment on above: Performed By: #### M , #### [facility] [address] [place], [address] Basophil percentageOrdered B y: Lauri Fisher on 08-29-2024 Basophils/100 WBC (Bld) 0.5 % 0-1 [facility] CBC W/Diff, Automatedon 08-11 Absolute Lymph 2.51 X10 3/uL Normal 0.83-4.51 [facility] Comment on above: Performed By: #### M , .2399 #### [facility] [address] [place], [address] Absolute Neut 10.5 X10 3/uL High 2.0-7.7 [facility] Comment on above: Performed By: #### M , #### [facility] [address] [place], [address] Basophils/100 WBC (Bld) 0.5 % Normal 0-1 [facility] Comment on above: Performed By: #### M , #### [facility] [address] [place], [address] Eosinophils/100 WBC (Bld) 0.1 % Normal 0-5 [facility] Comment on above: Performed By: #### M , .240 #### [facility] [address] [place], [address] Erythrocyte distribution width (RBC) [Ratio] 13.4 % Normal 11.6-14.6 [facility] Comment on above: Performed By: #### M , .2400 #### [facility] [address] [place], [address] Hematocrit (Bld) [Volume fraction] 43.8 % Normal 37-47 [facility] Comment on above: Performed By: #### M , 240 #### [facility] [address] [place], [address] Hemoglobin (Bld) [Mass/Vol] 14.5 g/dL Normal 12.0-15.0 [facility] Comment on above: Performed By: #### M , #### [facility] [address] [place], [address] IG% 2.600 High 0.0-0.9 [facility] Comment on above: Result Comment: IG% - Immature Granulocytes (promyelocytes, myelocytes and metamyelocytes) > 1% indicates that a LEFT SHIFT is Present. Performed By: #### M , #### [facility] [address] [place], [address] Lymphocytes/100 WBC (Bld) 17.0 % Low 19-41 [facility] Comment on above: Performed By: #### M , #### [facility] [address] [place], [address] MCH (RBC) [Entitic mass] 29.8 pg Normal 27.0-32.0 [facility] Comment on above: Performed By: #### M , #### [facility] [address] [place], [address] MCHC (RBC) [Mass/Vol] 33.1 g/dL Normal 32-36 [facility] Comment on above: Performed By: #### M , #### [facility] [address] [place], [address] MCV (RBC) [Entitic vol] 89.9 fL Normal 81-99 [facility] Comment on above: Performed By: #### M , #### [facility] [address] [place], [address] Monocytes/100 WBC (Bld) 8.7 % Normal 0-10 [facility] Comment on above: Performed By: #### M , #### [facility] [address] [place], [address] Neutrophils/100 WBC (Bld) 71.1 % High 47-70 [facility] Comment on above: Performed By: #### M , #### [facility] [address] [place], [address] Nucleated RBC (Bld) [#/Vol] 0 10*3/uL Normal 0-5 [facility] Comment on above: Performed By: #### M , #### [facility] [address] [place], [address] Platelet mean volume (Bld) [Entitic vol] 11.9 fL Normal 6.2-12.0 [facility] Comment on above: Performed By: #### M , #### [facility] [address] [place], [address] Platelets (Bld) [#/Vol] 209 10*3/uL Normal 150-450 [facility] Comment on above: Performed By: #### M , #### [facility] [address] [place], [address] RBC (Bld) [#/Vol] 4.87 10*6/uL Normal 4.2-5.4 [facility] Comment on above: Performed By: #### M , #### [facility] [address] [place], [address] RDW SD 44.1 fl High 35.1-43.9 [facility] Comment on above: Performed By: #### M , #### [facility] [address] [place], [place], [address] WBC (Bld) [#/Vol] 14.8 10*3/uL High 4.4-11.0 [facility] Comment on above: Performed By: #### M 100.2000, M100.2400 #### [facility] [address] [place], [address] CNOVon 08-29-2024 CNOV Office Visit (PULMJM ) JENNIFER RIVAS ([id number]) 1960 F Date Time Provider Department 08/29/24 1:10 PM KADIE HAMPTON PULJM During your visit today, we recorded the following information about you: Pulse Blood pressure Weight Height 81/minute 115/76 95.3 kg 1.524 m Kadie Hampton MD 08/29/2024 2:43 PM Signed [facility] New Patient Consult Note Patient Name: Jennifer Mcmullen PRIMARY CARE PHYSICIAN: Leonid Rice MD REFERRING PHYSICIAN: No ref. provider found Recording using [employer] software for draft documentation of the visit was discussed with the patient/authorized field support representative; all questions welcomed and answered. Patient/authorized field support representative agreed to proceed CHIEF COMPLAINT: Bronchial asthma exacerbation HISTORY OF PRESENT ILLNESS: Jennifer Mcmullen is a 63 year old female with a history of Asthma. This patient is here for first Pulmonary office visit and consultation. I reviewed available objective data including imaging as available. Patient was last seen by Dr. Henry in August 2021. Jennifer Mcmullen is a 63-year-old female with a history of asthma and DM, presenting with dyspnea and cough. She is accompanied by her daughter, who is providing additional history. Jennifer reports a 2-week history of dyspnea and cough, which has led to two recent hospital visits, including one this morning at [facility]. Patient was a recently admitted to [facility] last week with asthma/COPD exacerbation and was discharged on Monday. And also went to emergency room today morning with the worsening of shortness of breath. During her hospital visit, she was prescribed a 10-day course of prednisone. She has taken 2 doses of prednisone so far. She was also given an albuterol inhaler. She denies current production of phlegm, but notes a previous episode of phlegm production. She reports experiencing dyspnea both at rest and with ambulation, and occasionally experiences fever, but denies chills, night sweats, chest pain, palpitations, or lower extremity swelling. She has a nebulizer at home but lacks the medication for it. Jennifer has a significant smoking history, having started at the age of 10-13 years old. She recently quit smoking 3 days ago, coinciding with her hospital admission. She denies any known allergies. Gives history of obstructive sleep apnea and is on CPAP. Is compliant with CPAP PAST MEDICAL HISTORY Diagnosis Date Arthritis Asthma Chronic low back pain 05/27/2014 Work injury 2006 Depression [facility] Diabetes mellitus (HCC) Disc slipped disc in back Fracture of right ankle Head injury Helicobacter pylori infection 09/12/2016 Hernia, hiatal Hyperglycemia 2010 Insomnia JOSSELIN (obstructive sleep apnea) 02/25/2019 Post-traumatic headache 01/16/2014 Postmenopausal Prediabetes 04/08/2019 PTSD (post-traumatic stress disorder) Tobacco use PAST SURGICAL HISTORY Procedure Laterality Date APPENDECTOMY 2012 [place] SECTION HX 1980 x 2 CHOLECYSTECTOMY 1989 COLONOSCOPY 01/10/2018 Random bx neg. internal hemorrhoids. lax anal tone. Giovanna [facility] COLONOSCOPY FLX DX W/COLLJ SPEC WHEN PFRMD 06/12/2014 Colonoscopy out pt [facility] EGD 04/10/2018 Hpylori negative - Giovanna in [facility] ESOPHAGOGASTRODUODENOS COPY TRANSORAL DIAGNOSTIC 06/12/2014 EGD outpt [facility] HERNIA REPAIR HX 12/01/2011 TOTAL ABDOMINAL HYSTERECT W/WO RMVL TUBE OVARY 1980 fibroid FAMILY HISTORY Problem Relation Age of Onset Heart Mother 70 Diabetes Mother Hypertension Mother Asthma Mother Hypertension Father Diabetes Father Colon Cancer Father in his seventies Asthma Sister Asthma Brother Seizures Brother Coronary Artery Disease Brother [place] No reported family hx of ILD fibrosis, PAH, Tb, lung cancer, A1AT deficiency Social History Tobacco Use Smoking status: Every Day Current packs/day: 0.50 Average packs/day: 0.5 packs/day for 44.5 years (22.2 ttl pk-yrs) Types: Cigarettes Start date: 03/1980 Smokeless tobacco: Never Vaping Use Vaping status: Never Used Substance Use Topics Alcohol use: No Drug use: No Ambulatory, see vaccine HX, 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 guaiFENesin (MUCINEX) 600 mg 12 hr tablet Take 1,200 mg by mouth two times a day as needed for cold/allergy symptoms. ALPRAZolam (XANAX) 2 mg tablet Take by mouth. nicotine (NICODERM) 21 mg/24 hr once daily. predniSONE (DELTASONE) 10 mg tablet 10 mg once daily. topiramate (TOPAMAX) 50 mg tablet Take 1 tablet by felipe (more content not included)... Normal [facility] Carbon dioxide, total [Moles /volume] in Central venous bloodOrdered By: Lauri Fisher on 08-29-2024 CO2 [Moles/Vol] 25.5 mmol/L 21.0-32.0 [facility] Chest PA and Lateralon 08-29 Chest PA and Lateral [facility] Imaging Services [address] [place] [address] [id number] Chest PA and Lateral MR#: [id number] Acct: [id number] Name: JENNIFER RIVAS Rep #: [id number] : 1960 F 63 From: Radha bernal MD PCP: Dr. Leonid Rice MD Status: [facility] ER Study: Chest PA and Lateral Date of Exam: 08/29/24 Exam# [id number] Ordering Dr: Lauri Fisher DO PROCEDURE: CHEST PA AND LATERAL 08/29/2024 REASON FOR EXAM: DYSPNEA TECHNIQUE: CHEST PA AND LATERAL COMPARISON: CT scan on 08/25/2024. FINDINGS: Mild bilateral basilar atelectatic pulmonary changes. There is no demonstrated pleural abnormality. Enlarged cardiac silhouette. Normal mediastinum and janel. Normal visualized pulmonary arteries. Atheromatous plaques of the visualized aortic arch and descending thoracic aorta. Diffuse spondylosis of the visualized thoracic spine. Normal visualized ribs, clavicles. Degenerative joint disease. There is no demonstrated abnormality of the visualized soft tissue structures of the upper abdomen. RAD/Chest PA and Lateral IMPRESSION: Mild bilateral basilar atelectatic pulmonary changes. Reading Location: [place] [address] CC: Dr. eLonid Rice MD; Lauri Fisher DO Drafter Patent: Signed Normal [facility] Chloride assayOrdered By: Falguni Fisher on 08-29-2024 Chloride [Moles/Vol] 102 mmol/L 98-[address] [facility] Emergency Department Summary on 08-29-2024 Emergency Department Summary [facility] Medical Records Department [address] [place] [address] Emergency Department Summary 08/29/24 MR#: [id number] Acct: [id number] Name: JENNIFER RIVAS Rep #: [id number] : 1960 63 From: Lauri Fisher DO PCP: Dr. Leonid Rice MD Status:DEP ER Location: ED HPI History of Present Illness Chief Complaint: Shortness of Breath Informant: patient Narrative Narrative: Patient is a 63-year-old female with past medical history of tobacco abuse and COPD as well as anxiety. She was recently admitted to the hospital secondary to COPD exacerbation. She was placed on steroids benzo Steven inhaler and discharged home recently. She states that she does not require supplemental oxygen at baseline. She reports she awoke this evening with increased shortness of breath which concerned her especially because of her recent admission and with this presents for evaluation [facility] Medical History Tobacco abuse GERD (gastroesophageal reflux [...] Rx breath activated powder inhaler (Pulmicort Flexhaler) benzonatate 200 mg capsule 200 mg PO TID PRN cough #30 caps 0 08/28/24 Unknown Rx guaifenesin 1,200 mg tablet, 1,200 mg PO BID 7 days #14 tabs Unknown Rx extended release 12 hr (Mucus Relief ER) nicotine 21 mg/24 hr daily 21 mg transdermal DAILY 28 days Unknown Rx transdermal patch #28 ea prednisone 10 mg tablet 10 mg PO DAILY #30 tabs 08/28/24 U nknown Rx Allergy/AdvReac Type Severity Reaction Status Date / Time latex Allergy Rash Verified 08/29/24 01:15 chocolate AdvReac Shortness Verified 08/29/24 01:15 of breath Family History Mother Myocardial infarction [...] Constitutional Constitutional ED: Denies chills or fever(s) Eyes Eyes: Denies change in vision ENT ENT ED: Denies sore throat Cardiovascular Cardiovascular: Denies chest pain, palpitations or racing heartbeat Respiratory/Chest Respiratory/Chest: Reports cough and dyspnea Gastrointestinal Gastrointestinal: Denies abdominal pain, diarrhea, nausea or vomiting Genitourinary Genitourinary ED: Denies dysuria Musculoskeletal Musculoskeletal: Denies back pain Integumentary Denies rash Neurologic Neurologic: Denies headache(s) Hematologic/Lymphatic Hematologic/Lymphatic: Denies easy bleeding or easy bruising Allergic/Immunologic Allergic/Immunologic ED: Denies mouth swelling or tongue swelling EXAM Physical Exam Const Vital Signs: 08/29/24 01:10 08/29/24 01:14 08/29/24 02:12 Temperature 97.6 F L Temperature Source Oral Pulse Rate 96 91 Respiratory Rate 25 H 20 H Respiratory Effort Short of Breath Respiratory Depth Shallow Respiratory Pattern Tachypnea Normal Blood Pressure 139/82 H Blood Pressure Mean 101 Pulse Ox 97 Oxygen Delivery Method Room Air Room Air 08/29/24 02:45 08/29/24 03:00 08/29/24 03:34 Temperature 98.7 F 98.7 F Temperature Source Oral Oral Pulse Rate 99 83 85 Respiratory Rate 21 H 25 H 20 H Respiratory Effort Respiratory Depth Respiratory Pattern Normal Blood Pressure 142/81 H 99/75 Blood Pressure Mean 101 83 Pulse Ox 97 94 Oxygen Delivery Method Room Air Room Air 08/29/24 03:48 Temperature 98.3 F Temperature Source Pulse Rate 83 Respiratory Rate 24 H Respiratory Effort Respiratory Depth Respiratory Pattern Blood Pressure 139/84 H Blood Pressure Mean 102 Pulse Ox 94 Oxygen Delivery Method Positive well nourished, well developed and obese (more content not included)... Normal [facility] Eosinophil percentageOrdered By: Lauri Fisher on 08-29-2024 Eosinophils/100 WBC (Bld) 0.1 % 0-5 [facility] Erythrocyte distribution wid th ratioOrdered By: Lauri Fisher on 08-29-2024 Erythrocyte distribution width (RBC) [Ratio] 13.4 % 11.6-14.6 [facility] Erythrocyte distribution wid th standard deviationOrdered By: Lauri Fisher on 08-29-2024 Erythrocyte distribution width (RBC) [Ratio] 44.1 fl High 35.1-43.9 [facility] Glomerular filtration rate ( GFR) estimation/1.73 sq m using serum, plasma, or whole bOrdered By: Lauri Fisher on 08-29-2024 GFR/1.73 sq M.predicted among non-blacks MDRD (S/P/Bld) [Vol rate/Area] 64 mL/min/{1.73_m2} >60 [facility] Comment on above: mL/min/1.73m2 CKD-EP I Creatinine Equation (2020) Hematocrit Auto (Bld) [Volum e fraction]Ordered By: Lauri Fisher on 08-29-2024 Hematocrit (Bld) [Volume fraction] 43.8 % 37-47 [facility] Hemoglobin measurementOrdere d By: Lauri Fisher on 08-29-2024 Hemoglobin (Bld) [Mass/Vol] 14.5 g/dL 12.0-15.0 [facility] Immature granulocytes/100 WB C Auto (Bld)Ordered By: Lauri Fisher on 08-29-2024 Immature granulocytes/100 WBC (Bld) 2.600 % High 0.0-0.9 [facility] Comment on above: IG% - Immature Granu locytes (promyelocytes, myelocytes and metamyelocytes) > 1% indicates that a LEFT SHIFT is Present. L503.7505on 08-29-2024 Natriuretic peptide B (Bld) [Mass/Vol] 126 pg/mL Normal <=900 [facility] Comment on above: Result Comment: Hear t Failure Unlikely: < 300 pg/mL Heart Failure Likely < 50 Years: > 450 pg/mL 50-75 Years: > 900 pg/mL >75 Years: > 1800 pg/mL Performed By: #### M , #### [facility] Laboratory [address] [facility]. [place], [place], [id number] MCV (mean corpuscular volume ) determinationOrdered By: Lauri Fisher on 08-29-2024 MCV (RBC) [Entitic vol] 89.9 fL 81-99 [facility] Magnesiumon 08-29-2024 Magnesium [Mass/Vol] 2.2 mg/dL Normal 1.5-2.[address] [facility] Comment on above: Performed By: #### M , #### [facility] Laboratory [address] [facility] [place], [place], [id number] Magnesium measurement (mass/ volume)Ordered By: Lauri Fisher on 08-29-2024 Magnesium (Unsp spec) [Mass/Vol] 2.2 mg/dL 1.5-2.2 [facility] Mean corpuscular hemoglobin (MCH) determinationOrdered By: Lauri Fisher on 08-29-2024 MCH (RBC) [Entitic mass] 29.8 pg 27.0-32.0 [facility] Mean corpuscular hemoglobin concentration (MCHC) determinationOrdered By: Lauri Fisehr on 08-29-2024 MCHC (RBC) [Mass/Vol] 33.1 g/dL 32-36 [facility] Mean platelet volume determi nationOrdered By: Lauri Fisher on 08-29-2024 Platelet mean volume (Bld) [Entitic vol] 11.9 fL 6.2-12.0 [facility] Monocyte percentageOrdered B y: Lauri Fisher on 08-29-2024 Monocytes/100 WBC (Bld) 8.7 % 0-10 [facility] Natriuretic peptide.B prohor lizz N-Terminal [Mass/volume] in Serum or PlasmaOrdered By: Lauri Fisher on 08-29-2024 Natriuretic peptide.B prohormone N-Terminal [Mass/Vol] 126 pg/mL <900 [facility] Comment on above: Heart Failure Unlike ly: < 300 pg/mLHeart Failure Likely< 50 Years: > 450 pg/mL50-75 Years: > 900 pg/mL>75 Years: > 1800 pg/mL Neutrophil percentageOrdered By: Lauri Fisher on 08-29-2024 Neutrophils/100 WBC (Bld) 71.1 % High 47-70 [facility] Nucleated red blood cell per centageOrdered By: Lauri Fisher on 08-29-2024 Nucleated RBC/100 WBC (Bld) [Ratio] 0 % 0-5 [facility] Platelet countOrdered By: Falguni Fisher on 08-29-2024 Platelets (Bld) [#/Vol] 209 10*3/uL 150-450 [facility] Potassium measurement (mass/ volume)Ordered By: Lauri Fisher on 08-29-2024 Potassium (Unsp spec) [Mass/Vol] 4.1 mmol/L 3.3-5.1 [facility] Comment on above: Hemolysis present, R esults could be affected. RBC Auto (Bld) [#/Vol]Ordere d By: Lauri Fisher on 08-29-2024 RBC (Bld) [#/Vol] 4.87 10*6/uL 4.2-5.4 [facility] Serum creatinine measurement (mass/volume)Ordered By: Lauri Fisher on 08-29-2024 Creatinine [Mass/Vol] 1.00 mg/dL 0.70-1.20 [facility] Serum glucose measurement (m ass/volume)Ordered By: Lauri Fisher on 08-29-2024 Glucose [Mass/Vol] 180 mg/dL High 70-99 [facility] Serum or plasma calcium enedelia urement (mass/volume)Ordered By: Lauri Fisher on 08-29-2024 Calcium [Mass/Vol] 9.0 mg/dL 7.6-11.0 [facility] Serum or plasma urea nitroge n measurement (mass/volume)Ordered By: Lauri Fisher on 08-29-2024 Urea nitrogen [Mass/Vol] 23 mg/dL High 4-19 [facility] Sodium levelOrdered By: Wilmer Fisher on 08-29-2024 Sodium [Moles/Vol] 138 mmol/L 133-145 [facility] White blood cell (WBC) count Ordered By: Lauri Fisher on 08-29-2024 WBC (Bld) [#/Vol] 14.8 10*3/uL High 4.4-11.0 [facility] Discharge Instructionon 08-11 Discharge Instruction [facility] Medical Records Department [address] [place] [address] Instructions for Home/Discharge Instructions 08/28/24 1140 MR#: [id number] Acct: [id number] Name: JENNIFER RIVAS Rep #: [id number] : 1960 63 From: Alcon Cr MD PCP: Dr. Leonid Rice MD Status:ADM SO Discharge Instructions Diet Discharge Diet: Low [...] movement, Shortness of breath, Dizziness, Fainting spells, Swelling in the ankles, Chest pain, Prolonged hiccupping, Increased [...] Restrictions: Patient needs to follow-up with the sugar cane planter for PFT and noninvasive pulmonary function test [...] puff inhalation Q4H PRN PRN (Reason: Sob /Or Wheezing) Qty: 1 0RF Patient Comments: shortness of breath Referrals / Follow Up: Leonid Rice MD [Primary Care Provider] - Within 2 Weeks Cole Silva DO [Med Staff - Active Staff] - Within 2 Weeks Disposition Disposition (needs filled in before D/C Order can be placed): Home, Self Care 08/28/24 3369 Alcon Cr MD CC: Dr. Modesta Caro DO; Dr. Leonid Rice MD Signed Normal [facility] Respiratory Cultureon 2024 RESPC Mixed normal respiratory zenaida. No Haemophilus, Streptococcus pneumoniae, beta-hemolytic Streptococcus or Staphylococcus aureus isolated. Normal [facility] Comment on above: Performed By: #### M 100.2000, M100.2400 #### [facility] Laboratory [address] [facility] [place], [address] Electrocardiogram reportOrde red By: Reagan Connell on 08-27-2024 EKG study [facility] Cardiovascular Services [address] [place] [address] 12 Lead EKG 08/25/24 1705 MR#: [id number] Acct: [id number] Name: JENNIFER RIVAS Rep #:[id number] : 1960 63 From: Reagan Connell MD Attending Dr: Dr. Alcon Cr MD Status: ADM SO Ordering Dr: Zachery Jesus DO Date: 0 08/25/24 [place] [facility] [place]: F H Admitted: 08/25/24 Test Reason : SOB Blood Pressure : */* mmHG Vent. Rate : 80 BPM Atrial Rate : 80 BPM P-R Int : 158 ms QRS Dur : 78 ms QT Int : 378 ms P-R-T Axes : 56 22 47 degrees QTcB Int : 435 ms Normal sinus rhythm Normal ECG Confirmed by REAGAN CONNELL MD ([id number]), school photograph editor FABIENNE PINEDA ([id number]) on 57:45:08 AM Referred By: Confirmed By: REAGAN CONNELL MD 08/27/24 0745 Date _ Reagan Connell MD CC: Dr. Zachery Jesus DO; Dr. Alcon Cr MD; Dr. Leonid Rice MD ~ Signed [facility] Other Phone: Gram Stainon 08-27-2024 GS Acceptable Specimen? Yes (<25 Epithelial cells per/lpf) Gram Stain 2+ Gram positive cocci 4+ Gram positive rods Rare Gram negative rods 1+ White Blood Cells No Epithelial cells Normal [facility] Comment on above: Performed By: #### M 100.2000, M100.2400 #### [facility] Laboratory [address] [facility]. [place], [place], [id number] Absolute lymphocyte countOrd ered By: Modesta Caro on 08-26-2024 Lymphocytes Auto (Unsp spec) [#/Vol] 1.17 10*3/uL 0.83-4.51 [facility] Absolute neutrophil countOrd ered By: Modesta Caro on 08-26-2024 Neutrophils (Bld) [#/Vol] 6.3 10*3/uL 2.0-7.7 [facility] Anion gap in Serum or Plasma Ordered By: Modesta Caro on 08-26-2024 Anion gap [Moles/Vol] 11 mmol/L 5-15 [facility] Automated lymphocyte count a s percentage of total leukocytesOrdered By: Modesta Caro on 08-26-2024 Lymphocytes/100 WBC Auto (Unsp spec) 15.4 % Low 19-41 [facility] BUN/creatinine ratioOrdered By: Modesta Caro on 08-26-2024 Urea nitrogen/Creatinine [Mass ratio] 12.7 mg/mg 10-20 [facility] Basophil percentageOrdered B y: Modesta Crao on 08-26-2024 Basophils/100 WBC (Bld) 0.1 % 0-1 [facility] Bilirubin, totalOrdered By: Modesta Caro on 08-26-2024 Bilirubin [Mass/Vol] 0.27 mg/dL Normal 0.00-1.[address] [facility] Comment on above: Performed By: #### L 501.2300, L501.5200, L100.0100, L500.4050 #### [facility] Laboratory [address] [facility] [place], [place], [id number] CBC W/Diff, Automatedon 08-11 Absolute Lymph 1.17 X10 3/uL Normal 0.83-4.51 [facility] Comment on above: Performed By: #### L 501.2300, L501.5200, L100.0100, L500.4050 #### [facility] Laboratory [address] [place], [address] Absolute Neut 6.3 X10 3/uL Normal 2.0-7.7 [facility] Comment on above: Performed By: #### L 501.2300, L501.5200, L100.0100, L500.4050 #### [facility] Laboratory [address] [place], [address] Basophils/100 WBC (Bld) 0.1 % Normal 0-1 [facility] Comment on above: Performed By: #### L 501.2300, L501.5200, L100.0100, L500.4050 #### [facility] Laboratory [address] [place], [address] Eosinophils/100 WBC (Bld) 0.0 % Normal 0-5 [facility] Comment on above: Performed By: #### L 501.2300, L501.5200, L100.0100, L500.4050 #### [facility] Laboratory [address] [place], [address] Erythrocyte distribution width (RBC) [Ratio] 13.1 % Normal 11.6-14.6 [facility] Comment on above: Performed By: #### L 501.2300, L501.5200, L100.0100, L500.4050 #### [facility] Laboratory [address] [place], [address] Hematocrit (Bld) [Volume fraction] 41.7 % Normal 37-47 [facility] Comment on above: Performed By: #### L 501.2300, L501.5200, L100.0100, L500.4050 #### [facility] Laboratory [address] [place], [address] Hemoglobin (Bld) [Mass/Vol] 13.9 g/dL Normal 12.0-15.0 [facility] Comment on above: Performed By: #### L 501.2300, L501.5200, L100.0100, L500.4050 #### [facility] Laboratory [address] [place], [address] IG% 0.900 Normal 0.0-0.9 [facility] Comment on above: Result Comment: IG% - Immature Granulocytes (promyelocytes, myelocytes and metamyelocytes) > 1% indicates that a LEFT SHIFT is Present. Performed By: #### L 501.2300, L501.5200, L100.0100, L500.4050 #### [facility] Laboratory [address] [place], [address] Lymphocytes/100 WBC (Bld) 15.4 % Low 19-41 [facility] Comment on above: Performed By: #### L 501.2300, L501.5200, L100.0100, L500.4050 #### [facility] Laboratory [address] [place], [address] MCH (RBC) [Entitic mass] 29.0 pg Normal 27.0-32.0 [facility] Comment on above: Performed By: #### L 501.2300, L501.5200, L100.0100, L500.4050 #### [facility] Laboratory [address] [place], [address] MCHC (RBC) [Mass/Vol] 33.3 g/dL Normal 32-36 [facility] Comment on above: Performed By: #### L 501.2300, L501.5200, L100.0100, L500.4050 #### [facility] Laboratory [address] [place], [address] MCV (RBC) [Entitic vol] 87.1 fL Normal 81-99 [facility] Comment on above: Performed By: #### L 501.2300, L501.5200, L100.0100, L500.4050 #### [facility] Laboratory [address] [place], [address] Monocytes/100 WBC (Bld) 1.1 % Normal 0-10 [facility] Comment on above: Performed By: #### L 501.2300, L501.5200, L100.0100, L500.4050 #### [facility] Laboratory [address] [place], [address] Neutrophils/100 WBC (Bld) 82.5 % High 47-70 [facility] Comment on above: Performed By: #### L 501.2300, L501.5200, L100.0100, L500.4050 #### [facility] Laboratory [address] [place], [address] Nucleated RBC (Bld) [#/Vol] 0 10*3/uL Normal 0-5 [facility] Comment on above: Performed By: #### L 501.2300, L501.5200, L100.0100, L500.4050 #### [facility] Laboratory [address] [place], [address] Platelet mean volume (Bld) [Entitic vol] 11.3 fL Normal 6.2-12.0 [facility] Comment on above: Performed By: #### L 501.2300, L501.5200, L100.0100, L500.4050 #### [facility] Laboratory [address] [place], [address] Platelets (Bld) [#/Vol] 204 10*3/uL Normal 150-450 [facility] Comment on above: Performed By: #### L 501.2300, L501.5200, L100.0100, L500.4050 #### [facility] Laboratory [address] [place], [address] RBC (Bld) [#/Vol] 4.79 10*6/uL Normal 4.2-5.4 [facility] Comment on above: Performed By: #### L 501.2300, L501.5200, L100.0100, L500.4050 #### [facility] Laboratory [address] [place], [address] RDW SD 41.5 fl Normal 35.1-43.9 [facility] Comment on above: Performed By: #### L 501.2300, L501.5200, L100.0100, L500.4050 #### [facility] Laboratory [address] [place], [address] WBC (Bld) [#/Vol] 7.6 10*3/uL Normal 4.4-11.0 [facility] Comment on above: Performed By: #### L 501.2300, L501.5200, L100.0100, L500.4050 #### [facility] Laboratory [address] [place], [address] Carbon dioxide, total [Moles /volume] in Central venous bloodOrdered By: Modesta Caro on 08-26-2024 CO2 [Moles/Vol] 23.6 mmol/L Normal 21.0-32.0 [facility] Comment on above: Performed By: #### L 501.2300, L501.5200, L100.0100, L500.4050 #### [facility] Laboratory [address] [place], [address] Chloride assayOrdered By: Hayley Caro on 08-26-2024 Chloride [Moles/Vol] 104 mmol/L Normal 98-[address] [facility] Comment on above: Performed By: #### L 501.2300, L501.5200, L100.0100, L500.4050 #### [facility] Laboratory [address] [place], [address] Comprehensive Metabolic Prof ilon 08-26-2024 ALK PHOS 138 U/L High 35-104 [facility] Comment on above: Performed By: #### L 501.2300, L501.5200, L100.0100, L500.4050 #### [facility] Laboratory [address] [place], [address] BUN/CRE 12.7 RATIO Normal 10-20 [facility] Comment on above: Performed By: #### L 501.2300, L501.5200, L100.0100, L500.4050 #### [facility] Laboratory [address] [place], [address] ECRCL 77.79 ml/min Normal 50-250 [facility] Comment on above: Performed By: #### L 501.2300, L501.5200, L100.0100, L500.4050 #### [facility] Laboratory [address] [place], [address] GAP 11 Normal 5-15 [facility] Comment on above: Performed By: #### L 501.2300, L501.5200, L100.0100, L500.4050 #### [facility] [address] [place], [address] Potassium [Moles/Vol] 3.7 mmol/L Normal 3.3-5.1 [facility] Comment on above: Performed By: #### L 501.2300, L501.5200, L100.0100, L500.4050 #### [facility] [address] [place], [address] T PROT 7.0 g/dL Normal 5.9-8.4 [facility] Comment on above: Performed By: #### L 501.2300, L501.5200, L100.0100, L500.4050 #### [facility] [address] [place], [address] Comprehensive Metabolic Prof ilOrdered By: Modesta Caro on 08-26-2024 AST [Catalytic activity/Vol] 18 U/L Normal <=31 [facility] Comment on above: Performed By: #### L 501.2300, L501.5200, L100.0100, L500.4050 #### [facility] [address] [place], [address] Eosinophil percentageOrdered By: Modesta Caro on 08-26-2024 Eosinophils/100 WBC (Bld) 0.0 % 0-5 [facility] Erythrocyte distribution wid th ratioOrdered By: Modesta Caro on 08-26-2024 Erythrocyte distribution width (RBC) [Ratio] 13.1 % 11.6-14.6 [facility] Erythrocyte distribution wid th standard deviationOrdered By: Modesta Caro on 08-26-2024 Erythrocyte distribution width (RBC) [Ratio] 41.5 fl 35.1-43.9 [facility] Glomerular filtration rate ( GFR) estimation/1.73 sq m using serum, plasma, or whole bOrdered By: Modesta Caro on 08-26-2024 GFR/1.73 sq M.predicted among non-blacks MDRD (S/P/Bld) [Vol rate/Area] 86 mL/min/{1.73_m2} Normal >60 [facility] Comment on above: mL/min/1.73m2 CKD-EP I Creatinine Equation (2020) Result Comment: mL/m in/1.73m2 CKD-EPI Creatinine Equation (2020) Performed By: #### L 501.2300, L501.5200, L100.0100, L500.4050 #### [facility] [address] [place], [address] Gram stainOrdered By: Bhupendra Caro on 08-26-2024 Microscopic observation Gram stain Nom (Unsp spec) [facility] Hematocrit Auto (Bld) [Volum e fraction]Ordered By: Modesta Caro on 08-26-2024 Hematocrit (Bld) [Volume fraction] 41.7 % 37-47 [facility] Hemoglobin measurementOrdere d By: Modesta Caro on 08-26-2024 Hemoglobin (Bld) [Mass/Vol] 13.9 g/dL 12.0-15.0 [facility] Immature granulocytes/100 WB C Auto (Bld)Ordered By: Modesta Caro on 08-26-2024 Immature granulocytes/100 WBC (Bld) 0.900 % 0.0-0.9 [facility] Comment on above: IG% - Immature Granu locytes (promyelocytes, myelocytes and metamyelocytes) > 1% indicates that a LEFT SHIFT is Present. MCV (mean corpuscular volume ) determinationOrdered By: Modesta Caro on 08-26-2024 MCV (RBC) [Entitic vol] 87.1 fL 81-99 [facility] Magnesiumon 08-26-2024 Magnesium [Mass/Vol] 2.2 mg/dL Normal 1.5-2.[address] [facility] Comment on above: Performed By: #### L 501.2300, L501.5200, L100.0100, L500.4050 #### [facility] [address] [place] [address], [address] Magnesium measurement (mass/ volume)Ordered By: Modesta Caro on 08-26-2024 Magnesium (Unsp spec) [Mass/Vol] 2.2 mg/dL 1.5-2.2 [facility] Mean corpuscular hemoglobin (MCH) determinationOrdered By: Modesta Caro on 08-26-2024 MCH (RBC) [Entitic mass] 29.0 pg 27.0-32.0 [facility] Mean corpuscular hemoglobin concentration (MCHC) determinationOrdered By: Modesta Caro on 08-26-2024 MCHC (RBC) [Mass/Vol] 33.3 g/dL 32-36 [facility] Mean platelet volume determi nationOrdered By: Modesta Caro on 08-26-2024 Platelet mean volume (Bld) [Entitic vol] 11.3 fL 6.2-12.0 [facility] Monocyte percentageOrdered B y: Modesta Caro on 08-26-2024 Monocytes/100 WBC (Bld) 1.1 % 0-10 [facility] Neutrophil percentageOrdered By: Modesta Caro on 08-26-2024 Neutrophils/100 WBC (Bld) 82.5 % High 47-70 [facility] Nucleated red blood cell per centageOrdered By: Modesta Caro on 08-26-2024 Nucleated RBC/100 WBC (Bld) [Ratio] 0 % 0-5 [facility] Phosphoruson 08-26-2024 Phosphate [Mass/Vol] 3.4 mg/dL Normal 2.7-4.[address] [facility] Comment on above: Performed By: #### L 501.2300, L501.5200, L100.0100, L500.4050 #### [facility] [address] [place], [address] Platelet countOrdered By: Hayley Caro on 08-26-2024 Platelets (Bld) [#/Vol] 204 10*3/uL 150-450 [facility] Potassium measurement (mass/ volume)Ordered By: Modesta Caro on 08-26-2024 Potassium (Unsp spec) [Mass/Vol] 3.7 mmol/L 3.3-5.1 [facility] RBC Auto (Bld) [#/Vol]Ordere d By: Modesta Caro on 08-26-2024 RBC (Bld) [#/Vol] 4.79 10*6/uL 4.2-5.4 [facility] RESPIRATORY PANEL MOLECULARo n 08-26-2024 [...] Not Detected RSV B Not Detected Normal [facility] Comment on above: Performed By: #### M 100.638 ####[facility] [address] [place], [address] Serum creatinine measurement (mass/volume)Ordered By: Modesta Caro on 08-26-2024 Creatinine [Mass/Vol] 0.78 mg/dL Normal 0.70-1.20 [facility] Comment on above: Performed By: #### L 501.2300, L501.5200, L100.0100, L500.4050 #### [facility] [address] [place], [address] Serum globulin measurementOr dered By: Modesta Caro on 08-26-2024 Globulin (S) [Mass/Vol] 3.1 g/dL Normal 2.2-4.2 [facility] Comment on above: Performed By: #### L 501.2300, L501.5200, L100.0100, L500.4050 #### [facility] [address] [place], [address] Serum glucose measurement (m ass/volume)Ordered By: Modesta Caro on 08-26-2024 Glucose [Mass/Vol] 256 mg/dL High 70-99 [facility] Comment on above: Performed By: #### L 501.2300, L501.5200, L100.0100, L500.4050 #### [facility] [address] [place], [address] Serum or plasma alanine dye otransferase (ALT) measurementOrdered By: Modesta Caro on 08-26-2024 ALT [Catalytic activity/Vol] 16 U/L Normal <=34 [facility] Comment on above: Performed By: #### L 501.2300, L501.5200, L100.0100, L500.4050 #### [facility] [address] [place], [address] Serum or plasma albumin enedelia urement (mass/volume)Ordered By: Modesta Caro on 08-26-2024 Albumin [Mass/Vol] 3.8 g/dL Normal 3.4-4.8 [facility] Comment on above: Performed By: #### L 501.2300, L501.5200, L100.0100, L500.4050 #### [facility] [address] [place], [address] Serum or plasma albumin/glob ulin mass ratioOrdered By: Modesta Caro on 08-26-2024 Albumin/Globulin [Mass ratio] 1.2 {ratio} Normal 0.9-2.4 [facility] Comment on above: Performed By: #### L 501.2300, L501.5200, L100.0100, L500.4050 #### [facility] [address] [place], [address] Serum or plasma alkaline haley sphatase measurementOrdered By: Modesta Caro on 08-26-2024 ALP [Catalytic activity/Vol] 138 U/L High 35-104 [facility] Serum or plasma calcium enedelia urement (mass/volume)Ordered By: Modesta Caro on 08-26-2024 Calcium [Mass/Vol] 9.2 mg/dL Normal 7.6-11.0 [facility] Comment on above: Performed By: #### L 501.2300, L501.5200, L100.0100, L500.4050 #### [facility] [address] [place], [address] Serum or plasma urea nitroge n measurement (mass/volume)Ordered By: Modesta Caro on 08-26-2024 Urea nitrogen [Mass/Vol] 10 mg/dL Normal 4-19 [facility] Comment on above: Performed By: #### L 501.2300, L501.5200, L100.0100, L500.4050 #### [facility] [address] [place], [address] Sodium levelOrdered By: Radha Caro on 08-26-2024 Sodium [Moles/Vol] 139 mmol/L Normal 133-145 [facility] Comment on above: Performed By: #### L 501.2300, L501.5200, L100.0100, L500.4050 #### [facility] [address] [place], [place], [address] Total proteinOrdered By: Adelina Caro on 08-26-2024 Protein [Mass/Vol] 7.0 g/dL 5.9-8.4 [facility] White blood cell (WBC) count Ordered By: Modesta Caro on 08-26-2024 WBC (Bld) [#/Vol] 7.6 10*3/uL 4.4-11.0 [facility] 12 Lead EKGon 08-25-2024 12 Lead EKG [facility] Cardiovascular Services [address] [place] [address] 12 Lead EKG 08/25/24 1705 MR#: [id number] Acct: [id number] Name: JENNIFER RIVAS Rep #: [id number] : 1960 63 From: Reagan Connell MD Attending Dr: Dr. Alcon Cr MD Status: ADM SO Ordering Dr: Zachery Jesus DO Date: 08/25/24 [place] [facility] Sex: F H Admitted: 08/25/24 Test Reason : SOB Blood Pressure : */* mmHG Vent. Rate : 80 BPM Atrial Rate : 80 BPM P-R Int : 158 ms QRS Dur : 78 ms QT Int : 378 ms P-R-T Axes : 56 22 47 degrees QTcB Int : 435 ms Normal sinus rhythm Normal ECG Confirmed by REAGAN CONNELL MD ([id number]), school photograph editor FABIENNE PINEDA ([id number]) on 08/27/2024 7:45:08 AM Referred By: Confirmed By: REAGAN CONNELL MD 08/27/24 0745 Date Reagan Connell MD CC: Dr. Zachery Jesus DO; Dr. Alcon Cr MD; Dr. Leonid Rice MD Signed Normal [facility] Absolute lymphocyte countOrd ered By: Zachery Jesus on 08-25-2024 Lymphocytes Auto (Unsp spec) [#/Vol] 2.45 10*3/uL 0.83-4.51 [facility] Absolute neutrophil countOrd ered By: Zachery Jesus on 08-25-2024 Neutrophils (Bld) [#/Vol] 5.1 10*3/uL 2.0-7.7 [facility] Anion gap in Serum or Plasma Ordered By: Zachery Jesus on 08-25-2024 Anion gap [Moles/Vol] 13 mmol/L 07-25 [facility] Automated lymphocyte count a s percentage of total leukocytesOrdered By: Zachery Jesus on 08-25-2024 Lymphocytes/100 WBC Auto (Unsp spec) 27.7 % [facility] BUN/creatinine ratioOrdered By: Zachery Jesus on 08-25-2024 Urea nitrogen/Creatinine [Mass ratio] 12.6 mg/mg 12-30 [facility] Basic Metabolic Profile (BMP )on 08-25-2024 BUN/CRE 12.6 RATIO Normal 12-30 [facility] Comment on above: Performed By: #### M , #### [facility] [address] [place], [address] Calcium [Mass/Vol] 9.4 mg/dL Normal 7.6-11.0 [facility] Comment on above: Performed By: #### M , #### [facility] [address] [place], [address] Chloride [Moles/Vol] 106 mmol/L Normal 98-[address] [facility] Comment on above: Performed By: #### M , #### [facility] [address] [place], [address] CO2 [Moles/Vol] 22.2 mmol/L Normal 21.0-32.0 [facility] Comment on above: Performed By: #### M , #### [facility] [address] [place], [address] Creatinine [Mass/Vol] 0.83 mg/dL Normal 0.70-1.20 [facility] Comment on above: Performed By: #### M , #### [facility] [address] [place], [address] ECRCL 73.59 ml/min Normal 50-250 [facility] Comment on above: Performed By: #### M , #### [facility] [address] [place], [address] GAP 13 Normal 5-15 [facility] Comment on above: Performed By: #### M , #### [facility] [address] [place], [address] GFR/1.73 sq M.predicted among non-blacks MDRD (S/P/Bld) [Vol rate/Area] 80 mL/min/{1.73_m2} Normal >60 [facility] Comment on above: Result Comment: mL/m in/1.73m2 CKD-EPI Creatinine Equation (2020) Performed By: #### M , #### [facility] [address] [place], [address] Glucose [Mass/Vol] 107 mg/dL High 70-99 [facility] Comment on above: Performed By: #### M , #### [facility] [address] [place], [address] Potassium [Moles/Vol] 3.8 mmol/L Normal 3.3-5.1 [facility] Comment on above: Result Comment: Hemo lysis present, Results??could be affected. ?? Performed By: #### M , #### [facility] [address] [place], [address] Sodium [Moles/Vol] 142 mmol/L Normal 133-145 [facility] Comment on above: Performed By: #### M 100.1999, M100.2400 #### [facility] [address] [place], [address] Urea nitrogen [Mass/Vol] 10 mg/dL Normal 4-19 [facility] Comment on above: Performed By: #### M 100.1999, M100.2400 #### [facility] [address] [place], [address] Basophil percentageOrdered B y: Zachery Jesus on 08-25-2024 Basophils/100 WBC (Bld) 0.5 % 0-1 [facility] Bilirubin directOrdered By: Zachery Jesus on 08-25-2024 Bilirubin.direct [Mass/Vol] 0.10 mg/dL 0.00-0.30 [facility] Comment on above: Hemolysis present, R esults could be affected. Bilirubin, totalOrdered By: Zachery Jesus on 08-25-2024 Bilirubin [Mass/Vol] 0.34 mg/dL 0.00-1.[address] [facility] CBC W/Diff, Automatedon 08-11-2024 Absolute Lymph 2.45 X10 3/uL Normal 0.83-4.51 [facility] Comment on above: Performed By: #### L 100.0100 #### [facility] [address] [place], [address] Absolute Neut 5.1 X10 3/uL Normal 2.0-7.7 [facility] Comment on above: Performed By: #### L 100.0100 #### [facility] [address] [place], [address] Basophils/100 WBC (Bld) 0.5 % Normal 0-1 [facility] Comment on above: Performed By: #### L 100.0100 #### [facility] [address] [place], [address] Eosinophils/100 WBC (Bld) 3.5 % Normal 0-5 [facility] Comment on above: Performed By: #### L 100.0100 #### [facility] [address] [place], [address] Erythrocyte distribution width (RBC) [Ratio] 13.2 % Normal 11.6-14.6 [facility] Comment on above: Performed By: #### L 100.0100 #### [facility] [address] [place], [address] Hematocrit (Bld) [Volume fraction] 44.2 % Normal 37-47 [facility] Comment on above: Performed By: #### L 100.0100 #### [facility] [address] [place], [address] Hemoglobin (Bld) [Mass/Vol] 14.4 g/dL Normal 12.0-15.0 [facility] Comment on above: Performed By: #### L 100.0100 #### [facility] [address] [place], [address] IG% 0.500 Normal 0.0-0.9 [facility] Comment on above: Result Comment: IG% - Immature Granulocytes (promyelocytes, myelocytes and metamyelocytes) > 1% indicates that a LEFT SHIFT is Present. Performed By: #### L 100.0100 #### [facility] [address] [place], [address] Lymphocytes/100 WBC (Bld) 27.7 % Normal 19-41 [facility] Comment on above: Performed By: #### L 100.0100 #### [facility] [address] [place], [address] MCH (RBC) [Entitic mass] 29.2 pg Normal 27.0-32.0 [facility] Comment on above: Performed By: #### L 100.0100 #### [facility] [address] [place], [address] MCHC (RBC) [Mass/Vol] 32.6 g/dL Normal 32-36 [facility] Comment on above: Performed By: #### L 100.0100 #### [facility] [address] [place], [address] MCV (RBC) [Entitic vol] 89.7 fL Normal 81-99 [facility] Comment on above: Performed By: #### L 100.0100 #### [facility] [address] [place], [address] Monocytes/100 WBC (Bld) 10.7 % High 0-10 [facility] Comment on above: Performed By: #### L 100.0100 #### [facility] [address] [place], [address] Neutrophils/100 WBC (Bld) 57.1 % Normal 47-70 [facility] Comment on above: Performed By: #### L 100.0100 #### [facility] [address] [place], [address] Nucleated RBC (Bld) [#/Vol] 0 10*3/uL Normal 0-5 [facility] Comment on above: Performed By: #### L 100.0100 #### [facility] [address] [place], [address] Platelet mean volume (Bld) [Entitic vol] 11.8 fL Normal 6.2-12.0 [facility] Comment on above: Performed By: #### L 100.0100 #### [facility] [address] [place], [address] Platelets (Bld) [#/Vol] 223 10*3/uL Normal 150-450 [facility] Comment on above: Performed By: #### L 100.0100 #### [facility] [address] [place], [address] RBC (Bld) [#/Vol] 4.93 10*6/uL Normal 4.2-5.4 [facility] Comment on above: Performed By: #### L 100.0100 #### [facility] [address] [place], [address] RDW SD 43.5 fl Normal 35.1-43.9 [facility] Comment on above: Performed By: #### L 100.0100 #### [facility] [address] [place], [address] WBC (Bld) [#/Vol] 8.9 10*3/uL Normal 4.4-11.0 [facility] Comment on above: Performed By: #### L 100.0100 #### [facility] [address] [place], [address] CTA Chest W/WO Contraston CTA Chest W/WO Contrast [facility] Imaging Services [address] [place] [address] CTA Chest W/WO Contrast MR#: [id number] Acct: [id number] Name: JENNIFER RIVAS Rep #: [id number] : 1960 F 63 From: Marcello Saavedra PCP: Dr. Leonid Rice MD Status: [facility] Study: CTA Chest W/WO Contrast Date of Exam: 08/25/24 Exam# [id number] Ordering Dr: Zachery Jesus DO PROCEDURE: CTA [...] Contrast IMPRESSION: No acute process. Reading Location: [facility] CC: Dr. Zachery Jesus DO; Dr. Leonid Rice MD Drafter Patent: Signed Normal [facility] Carbon dioxide, total [Moles /volume] in Central venous bloodOrdered By: Zachery Jesus on 08-25-2024 CO2 [Moles/Vol] 22.2 mmol/L 21.0-32.0 [facility] Chest 1 View (Portable)on Chest 1 View (Portable) [facility] Imaging Services [address] [place] [address] Chest 1 View (Portable) MR#: [id number] Acct: [id number] Name: JENNIFER RIVAS Rep #: [id number] : 1960 F 63 From: Roberto Stephens PCP: Dr. Leonid Rice MD Status: REG ER Study: Chest 1 View (Portable) Date of Exam: 08/25/24 Exam# [id number] Ordering Dr: Zachery Jesus DO PROCEDURE: CHEST 1 VIEW (PORTABLE) 08/25/2024 REASON FOR EXAM: DYSPNEA TECHNIQUE: Frontal view of the chest. COMPARISON: 01/26/2023 FINDINGS: Mild pulmonary vascular congestion. No focal consolidations. No pleural effusion or pneumothorax. Cardiac silhouette is unchanged. No acute fractures. RAD/Chest 1 View (Portable) IMPRESSION: Mild pulmonary vascular congestion. No focal consolidations. Reading Location: [id number] CC: Dr. Zachery Jesus DO; Dr. Leonid Rice MD Drafter Patent: Signed Normal [facility] Chloride assayOrdered By: Oscar Jesus on 08-25-2024 Chloride [Moles/Vol] 106 mmol/L 98-[address] [facility] Emergency Department Summary on 08-25-2024 Emergency Department Summary [facility] Medical Records Department [address] [place] [address] Emergency Department Summary 08/25/24 MR#: [id number] Acct: [id number] Name: JENNIFER RIVAS Rep #: [id number] : 1960 63 From: Zachery Jesus DO PCP: Dr. Leonid Rice MD Status:ADM SO Location: NM3 BL293-7 HPI History of Present Illness Chief Complaint: Abd Pain Informant: patient Narrative Narrative: 63-year-old female presenting to the emergency room with chief complaint of shortness of breath. Patient states she has a history of asthma. She states she is not currently on any medications. She states that her father and then her brother was found in the home. She had to travel to [place] where she has been taking care of family affairs and the . She states that for the past week she has had a progressive worsening shortness of breath and intermittent fevers cough with occasional sputum production. She also notes an epigastric discomfort particularly with eating. She states that the hot weather in [place] does not agree with her health. She returned home today and came to the emergency department. She does not wear supplemental oxygen at home. She denies history of coronary artery disease or congestive heart failure. She is a smoker. [facility] Medical History Tobacco abuse GERD (gastroesophageal reflux [...] 180 mcg/actuation 1 puff inhalation BID ##1 01/13/16 Unknown Rx breath activated powder inhaler (Pulmicort [...] 08/25/24 17:45 (more content not included)... Normal [facility] Eosinophil percentageOrdered By: Zachery Jesus on 08-25-2024 Eosinophils/100 WBC (Bld) 3.5 % 0-5 [facility] Erythrocyte distribution wid th ratioOrdered By: Zachery Jesus on 08-25-2024 Erythrocyte distribution width (RBC) [Ratio] 13.2 % 11.6-14.6 [facility] Erythrocyte distribution wid th standard deviationOrdered By: Zachery Jesus on 08-25-2024 Erythrocyte distribution width (RBC) [Ratio] 43.5 fl 35.1-43.9 [facility] Glomerular filtration rate ( GFR) estimation/1.73 sq m using serum, plasma, or whole bOrdered By: Zachery Jesus on 08-25-2024 GFR/1.73 sq M.predicted among non-blacks MDRD (S/P/Bld) [Vol rate/Area] 80 mL/min/{1.73_m2} >60 [facility] Comment on above: mL/min/1.73m2 CKD-EP I Creatinine Equation (2020) H AND P Exam - [facility] 08-25-2024 H&P Exam - Hospitalist [facility] Medical Records Department [address] [place] [address] H P Exam - Hospitalist 08/25/242031 MR#: [id number] Acct: [id number] Name: JENNIFER RIVAS Rep #: [id number] : 1960 63 From: Modesta Caro DO PCP: Dr. Leonid Rice MD Status:ADM SO Location: [place] [address]-1 HPI - General General Date of Admission: 08/25/24 Date of Service: 08/25/24 Chief Complaint: Cough and shortness of breath HPI Narrative JENNIFER MCMULLEN, is a 63 F who presented to the emergency department at [facility] on 08/25/2024 due to chief complaint of cough and shortness of breath. Patient has a history of COPD and asthma and currently still smokes tobacco. She states her father and then her brother was found in his home. She has been traveling back and forth from [place] taking care of family affairs and the [...] with anticipated hospitalization less than 2 midnights. [facility] Medical History Tobacco abuse GERD (gastroesophageal [...] other Genito (more content not included)... Normal [facility] [facility] Hematocrit Auto (Bld) [Volum e fraction]Ordered By: Zachery Jesus on 08-25-2024 Hematocrit (Bld) [Volume fraction] 44.2 % 37-47 [facility] Hemoglobin measurementOrdere d By: Zachery Jesus on 08-25-2024 Hemoglobin (Bld) [Mass/Vol] 14.4 g/dL 12.0-15.0 [facility] Immature granulocytes/100 WB C Auto (Bld)Ordered By: Zachery Jesus on 08-25-2024 Immature granulocytes/100 WBC (Bld) 0.500 % 0.0-0.9 [facility] Comment on above: IG% - Immature Granu locytes (promyelocytes, myelocytes and metamyelocytes) > 1% indicates that a LEFT SHIFT is Present. Influenza virus A and B and SARS-CoV-2 (COVID-19) and Respiratory syncytial virus RNAOrdered By: Zachery Jesus on 08-25-2024 SARS-CoV-2 (COVID-19) RNA ZANA+probe Ql (Unsp spec) [facility] - Chemistry and C hemistry - challengeOrdered By: Zachery Jesus on 08-25-2024 AST [Catalytic activity/Vol] 25 U/L <32 [facility] Comment on above: Hemolysis present, R esults could be affected. Lipaseon 08-25-2024 Lipase [Catalytic activity/Vol] 8 U/L Low 13-75 [facility] Comment on above: Result Comment: Plea se note: LIPASE revised reference range effective 22. New Lipase methodology. Expected to produce lower values than the previous assay method. NEW Reference Range: 13 - 75 U/L Performed By: #### M 100.2000, M100.2400 #### [facility] [address] [place], [place], [id number] Lipase measurementOrdered By : Zachery Jesus on 08-25-2024 Lipase [Catalytic activity/Vol] 8 U/L Low 13-75 [facility] Comment on above: Please note:LIPASE r evised reference range effective 22. New Lipase methodology. Expected to produce lower values than the previous assay method. NEW Reference Range: 13 - 75 U/L Liver Profileon 08-25-2024 Albumin [Mass/Vol] 4.0 g/dL Normal 3.4-4.8 [facility] Comment on above: Performed By: #### M , #### [facility] [address] [place], [address] ALK PHOS 148 U/L High 35-104 [facility] Comment on above: Performed By: #### M , #### [facility] [address] [place], [address] ALT [Catalytic activity/Vol] 16 U/L Normal <=34 [facility] Comment on above: Performed By: #### M , #### [facility] [address] [place], [address] AST [Catalytic activity/Vol] 25 U/L Normal <=31 [facility] Comment on above: Result Comment: Hemo lysis present, Results??could be affected. ?? Performed By: #### M , #### [facility] [address] [place], [address] Bilirubin [Mass/Vol] 0.34 mg/dL Normal 0.00-1.[address] [facility] Comment on above: Performed By: #### M , #### [facility] [address] [place], [address] Bilirubin.direct [Mass/Vol] 0.10 mg/dL Normal 0.00-0.30 [facility] Comment on above: Result Comment: Hemo lysis present, Results??could be affected. ?? Performed By: #### M , #### [facility] [address] [place], [address] Globulin (S) [Mass/Vol] 3.3 g/dL Normal 2.2-4.2 [facility] Comment on above: Performed By: #### M 100.1999, M100.2400 #### [facility] [address] [place], [address] T PROT 7.3 g/dL Normal 5.9-8.4 [facility] Comment on above: Performed By: #### M 100.1999, M100.2400 #### [facility] [address] [place], [address] M100.678on 08-25-2024 M100.678 Pending SARS-CoV-2 (COVID 19) Negative INFLUENZA A Negative INFLUENZA B Negative RSV PCR Negative Normal [facility] Comment on above: Performed By: #### M 100.678 ####[facility] [address] [place], [address] MCV (mean corpuscular volume ) determinationOrdered By: Zachery Jesus on 08-25-2024 MCV (RBC) [Entitic vol] 89.7 fL 81-99 [facility] Mean corpuscular hemoglobin (MCH) determinationOrdered By: Zachery Jesus on 08-25-2024 MCH (RBC) [Entitic mass] 29.2 pg 27.0-32.0 [facility] Mean corpuscular hemoglobin concentration (MCHC) determinationOrdered By: Zachery Jesus on 08-25-2024 MCHC (RBC) [Mass/Vol] 32.6 g/dL 32-36 [facility] Mean platelet volume determi nationOrdered By: Zachery Jesus on 08-25-2024 Platelet mean volume (Bld) [Entitic vol] 11.8 fL 6.2-12.0 [facility] Monocyte percentageOrdered B y: Zachery Jesus on 08-25-2024 Monocytes/100 WBC (Bld) 10.7 % High 0-10 [facility] Neutrophil percentageOrdered By: Zachery Jesus on 08-25-2024 Neutrophils/100 WBC (Bld) 57.1 % 47-70 [facility] Nucleated red blood cell per centageOrdered By: Zachery Jesus on 08-25-2024 Nucleated RBC/100 WBC (Bld) [Ratio] 0 % 0-5 [facility] Platelet countOrdered By: Oscar Jesus on 08-25-2024 Platelets (Bld) [#/Vol] 223 10*3/uL 150-450 [facility] Potassium measurement (mass/ volume)Ordered By: Zachery Jesus on 08-25-2024 Potassium (Unsp spec) [Mass/Vol] 3.8 mmol/L 3.3-5.1 [facility] Comment on above: Hemolysis present, R esults could be affected. RBC Auto (Bld) [#/Vol]Ordere d By: Zachery Jesus on 08-25-2024 RBC (Bld) [#/Vol] 4.93 10*6/uL 4.2-5.4 [facility] Respiratory pathogens detect ion panel by molecular detection methodOrdered By: Modesta Caro on 08-25-2024 Respiratory pathogens DNA and RNA panel ZANA+probe (Resp) [facility] Serum creatinine measurement (mass/volume)Ordered By: Zachery Jesus on 08-25-2024 Creatinine [Mass/Vol] 0.83 mg/dL 0.70-1.20 [facility] Serum globulin measurementOr dered By: Zachery Jesus on 08-25-2024 Globulin (S) [Mass/Vol] 3.3 g/dL 2.2-4.2 [facility] Serum glucose measurement (m ass/volume)Ordered By: Zachery Jesus on 08-25-2024 Glucose [Mass/Vol] 107 mg/dL High 70-99 [facility] Serum or plasma alanine dye otransferase (ALT) measurementOrdered By: Zachery Jesus on 08-25-2024 ALT [Catalytic activity/Vol] 16 U/L <35 [facility] Serum or plasma albumin enedelia urement (mass/volume)Ordered By: Zachery Jesus on 08-25-2024 Albumin [Mass/Vol] 4.0 g/dL 3.4-4.8 [facility] Serum or plasma alkaline haley sphatase measurementOrdered By: Zachery Jesus on 08-25-2024 ALP [Catalytic activity/Vol] 148 U/L High 35-104 [facility] Serum or plasma calcium enedelia urement (mass/volume)Ordered By: Zachery Jesus on 08-25-2024 Calcium [Mass/Vol] 9.4 mg/dL 7.6-11.0 [facility] Serum or plasma urea nitroge n measurement (mass/volume)Ordered By: Zachery Jessu on 08-25-2024 Urea nitrogen [Mass/Vol] 10 mg/dL 4-19 [facility] Sodium levelOrdered By: Sanjay Jesus on 08-25-2024 Sodium [Moles/Vol] 142 mmol/L 133-145 [facility] Total proteinOrdered By: Demario Jesus on 08-25-2024 Protein [Mass/Vol] 7.3 g/dL 5.9-8.4 [facility] White blood cell (WBC) count Ordered By: Zachery Jesus on 08-25-2024 WBC (Bld) [#/Vol] 8.9 10*3/uL 4.4-11.0 [facility] [id number] 01-18-2024 [id number] HNO ID: [id number] Author: AMIRA WIGGINS RN Service: ? Author Type: Registered Nurse Type: [id number] Filed: 01/18/2024 09:27 Note Text: The patient received a copy of EGD discharge instructions that contain information for how to contact the physician who performed the procedure and when to seek medical care. Normal [facility] EGD Study observation Narrat ivgerardoon 01-18-2024 [facility] Gastrointestinal Endoscopy Patient Name: Jennifer Mcmullen [...] Physician: Zachery Toussaint MD (Referring MD), Marianna (clinical staff educator) Kaushal (Referring MD) Medicines: Fentanyl 50 micrograms [...] be scheduled. Procedure Code(s): --- Professional --- 80185, Esophagogastroduodenos copy, flexible, transoral; with biopsy, single or multiple Diagnosis Code(s): --- Professional --- R10.13, Epigastric pain R11.0, Nausea CPT copyright 2020 [employer]. All rights reserved. The codes documented in this report are preliminary and upon front loader residential driver review may be revised to meet current compliance requirements. Attending Participation: I personally performed the entire procedure. Scope In: 9:07:47 AM Scope Out: 9:11:18 AM MD Zacheyr Lund MD 01/18/2024 9:15:51 AM This report has been sign (more content not included)... PROVATION [facility] Radiology Study observation (narrative) [facility] HISTORY PHYSICALon HISTORY PHYSICAL HNO ID: [id number] Author: ZACHERY TOUSSAINT MD Service: General Surgery [...] back pain 05/27/2014 Work injury 2006 Depression [facility] Diabetes mellitus (HCC) Disc slipped disc [...] internal hemorrhoids. lax anal tone. Giovanna in [facility] COLONOSCOPY FLX DX W/COLLJ SPEC WHEN PFRMD 06/12/2014 Colonoscopy out pt [facility] EGD 04/10/2018 Hpylori negative - Giovanna in [facility] ESOPHAGOGASTRODUODENOS COPY TRANSORAL DIAGNOSTIC 06/12/2014 EGD outpt [facility] HERNIA REPAIR HX 12/01/2011 TOTAL ABDOMINAL [...] Brother Seizures Brother Coronary Artery Disease Brother [place] REVIEW OF SYMPTOMS: The review of systems [...] are an (more content not included)... Normal [facility] NURSING PROGon 01-18-2024 NURSING PROG HNO ID: [id number] Author: AMIRA WIGGINS RN Service: ? Author Type: Registered Nurse Type: Nursing Progress Note Filed: 01/18/2024 09:25 Note Text: pt arrived to phase 2 resting on left side. Daughter at bedside. SR up x 2, call light in reach. Amira Wiggins RN Normal [facility] SURGICAL PATHOLOGYon 024 ADDENDUM 1: Normal [facility] Comment on above: Order Comment: Speci men Type: BLOOD SPECIMEN Ordering Facility: [facility] Address: [address] [place] [address] Result Comment: Give n the background of chronic gastritis a Helicobacter pylori immunostain was performed on block A1 and is negative for Helicobacter pylori organisms. Laboratory Developed Test (LDT) Disclaimer: Performance characteristics of immunohistochemical, immunofluorescent and chromogenic in-situ hybridization tests have been determined by the performing laboratory within [facility]???s Marcello Brannon Pathology and Laboratory Medicine Department ([facility], [facility], [facility], [facility], [facility], [facility], or [facility]) in a manner consistent with CLIA [...] 01/23/2024 at 5:41 PM Performed By: #### 5 5454-3 #### [facility] CLIA [id number] [address] [place] [address] [place] CASE REPORT Normal [facility] Comment on above: Order Comment: Speci men Type: BLOOD SPECIMEN Ordering Facility: [facility] Address: [address] [place] [address] Result Comment: [facility] Pathology Report Case: [id number] Authorizing Provider: Zachery Toussaint MD Collected: 01/18/2024 09:09 AM Ordering Location: Ambulatory Surgery Received: 01/18/2024 01:10 PM Pathologist: Sunshine Burdick MD Specimens: A) - Stomach, Antrum, Biopsy, Antral bx for H/H B) - Esophagogastric Junction, Biopsy C) - Esophagus, Mid, Biopsy D) - Small Bowel, Duodenum, Biopsy Performed By: #### 5 5454-3 #### [facility] CLIA [id number] [address] [place] [address] [place] FINAL DIAGNOSIS Normal [facility] Comment on above: Order Comment: Speci men Type: BLOOD SPECIMEN Ordering Facility: [facility] Address: [address] [place] [address] Result Comment: A. S tomach, antrum, biopsy: [...] with no diagnostic abnormalities. Performed By: #### 5 5454-3 #### [facility] CLIA [id number] [address] [place] [address] [place] FINAL PERFORMING LAB Normal [facility] Comment on above: Order Comment: Speci men Type: BLOOD SPECIMEN Ordering Facility: [facility] Address: [address] [place] [address] Result Comment: Diag nostic interpretation performed at [facility], [address] [place] [address] CLIA# [id number] Certified Pathology Assistant: Yimi Rossi M.D. Performed By: #### 5 5454-3 #### [facility] CLIA [id number] [address] [place] [address] [place] GROSS DESCRIPTION Normal [facility] Comment on above: Order Comment: Speci men Type: BLOOD SPECIMEN Ordering Facility: [facility] Address: [address] [place] [address] Result Comment: A. S tomach, Antrum, Biopsy [...] in one cassette. Gross examination performed at [facility], [address] [place], [place] [id number] JT 01/18/2024 11:15 PM Performed By: #### 5 5454-3 #### [facility] CLIA [id number] [address] [place] [address] [id number] [id number] [facility] Upper GI endoscopyon 024 Upper GI endoscopy [facility] Gastrointestinal Endoscopy Patient Name: Jennifer Mcmullen [...] be scheduled. Procedure Code(s): --- Professional --- 21468, Esophagogastroduodenos copy, flexible, transoral; with biopsy, single or multiple Diagnosis Code(s): --- Professional --- R10.13, Epigastric pain R11.0, Nausea CPT copyright 2020 [employer]. All rights reserved. The codes documented in this report are preliminary and upon front loader residential driver review may be revised to meet current compliance requirements. Attending Participation: I personally performed the entire procedure. Scope In: 9:07:47 AM Scope Out: 9:11:18 AM MD Zachery Lund MD 01/18/2024 9:15:51 AM This report has been signed electronically by Zachery Toussaint MD Number of Addenda: 0 Note Initiated On: 01/18/2024 8:55 AM Estimated Blood Loss: Estimated blood loss was minimal. Normal [facility] [id number] 01-16-2024 [id number] HNO ID: [id number] Author: RUBY KIRKPATRICK, PT Service: ? Author Type: Physical Therapist Type: [id number] Filed: 01/16/2024 18:00 Note Text: [facility] Physical Therapy Plan of Care Certification Patient Name: Jennifer Mcmullen : 1960 [facility] #: [id number] Date: 01/16/2024 To: Smiley De La Paz,* From Therapist: Ruby Kirkpatrick PT RE: Patient Certification/ Recertification Your review, approval and electronic signature are required in order to comply with Payor: [employer] MEDICAID / Plan: [facility] / Product Type: Medicaid / [...] Goals for Episode of Care: established 01/16/24 [place] in home exercise program. Patient will decrease [...] Planned: 4 Planned Treatment Interventions: Therapeutic exercise (88894), Neuromuscular re-education (24174), Manual therapy (43431), Therapeutic activities (89435), Self-[place] [facility] management (47800), Gait Training (67467), Patient/Family/Caregiv er Education, Body Mechanics Training, General [...] have reviewed the treatment plan for Jennifer Yajaira Mcmullen, [facility]# [id number] for the period of 01/16/24 -- 02/13/24, established on 01/16/2024. Signature certifies the need for therapy services. Normal [facility] CNTHERAPYon 01-16-2024 CNTHERAPY OT/PT/Speech Visit (PTWS) JENNIFER RIVAS ([id number]) 1960 F Date Time Provider Department 01/16/24 1:15 PM RUBY KIRKPATRICK PTNAIF Date Time Provider Department Center 01/16/2024 1:15 PM [id number], BRENT PTNAIF Powell Reason for Visit: PT Eval [747] [...] J45.41. Nebulizer and supplies. Face mask preferred. Coat Maker: Addendum Therapy (PT/OT/Speech/Resp) ID: [id number] 01/16/2024 5:50 PM Author: RUBY KIRKPATRICK Signed by RUBY KIRKPATRICK PT on 01/16/2024 at 5:51 PM * * * This document replaces document [id number] * * * Document text: Program_ID:[id number] Access Code: [email or web address] URL: [email or web address] Date: 01-16-2024 Prepared By: Ruby Kirkpatrick Program [...] 2 sets - 10 reps -- Normal [facility] THERAPY NTon 01-16-2024 THERAPY NT HNO ID: [id number] Author: RUBY KIRKPATRICK, DOMINICK Service: ? Author Type: Physical Therapist Type: Therapy (PT/OT/Speech/Resp) Filed: 01/16/2024 17:51 Note Text: Program_ID:[id number] Access Code: [email or web address] URL: [email or web address] Date: 01-16-2024 Prepared By: Ruby Kirkpatrick Program [...] - 2 sets - 10 reps Normal [facility] CNOVon 01-08-2024 CNOV Office Visit (GENSWS ) JENNIFER RIVAS ([id number]) 1960 F Date Time Provider Department 01/08/24 [...] back pain 05/27/2014 Work injury 2006 Depression [facility] Diabetes mellitus (HCC) Disc slipped disc [...] internal hemorrhoids. lax anal tone. Giovanna in [facility] COLONOSCOPY FLX DX W/COLLJ SPEC WHEN PFRMD 06/12/2014 Colonoscopy out pt [facility] EGD 04/10/2018 Hpylori negative - Giovanan in [facility] ESOPHAGOGASTRODUODENOS COPY TRANSORAL DIAGNOSTIC 06/12/2014 EGD outpt [facility] HERNIA REPAIR HX 12/01/2011 TOTAL ABDOMINAL [...] Brother Seizures Brother Coronary Artery Disease Brother [place] REVIEW OF SYMPTOMS: The review of systems data was entered by the nurse and reviewed by me There are no exam notes on file for this visit. PHYSICAL EXAMINATION: General: The patient is 63 year old female, well nourished, well hydrated in no acute distress. The patient is oriented to time, place, and person. VITALS: Blood pressure 116 (more content not included)... Normal [facility] Office Visit (INTMWS ) JENNIFER RIVAS ([id number]) 1960 F Date Time Provider Department 01/08/24 11:00 AM MARIANNA YAP INTMWS During your visit today, we recorded the following information about you: Pulse Respiration Blood pressure Weight 76/minute 14/minute 124/82 96.6 kg Marianna Yap, FULLERETTE.ETL TESTER 01/08/2024 11:34 AM Signed CC: Patient presents with: Follow Up: JONAS [...] back pain 05/27/2014 Work injury 2006 Depression [facility] Diabetes mellitus (HCC) Disc slipped disc in back Fracture of right ankle Head injury Helicobacter pylori infection 09/12/2016 Hernia, hiatal Hyperglycemia 2010 Insomnia JOSSELIN (obstructive sleep apnea) 02/25/2019 Post-traumatic headache 01/16/2014 Postmenopausal Prediabetes 04/08/2019 PTSD (post-traumatic stress disorder) Tobacco use PAST SURGICAL HISTORY Procedure Laterality Date APPENDECTOMY 2012 [place] SECTION HX 1980 x 2 CHOLECYSTECTOMY 1989 COLONOSCOPY 01/10/2018 Random bx neg. internal hemorrhoids. lax anal tone. Giovanna in [facility] COLONOSCOPY FLX DX W/COLLJ SPEC WHEN PFRMD 06/12/2014 Colonoscopy out pt [facility] EGD 04/10/2018 Hpylori negative - Giovanna in [facility] ESOPHAGOGASTRODUODENOS COPY TRANSORAL DIAGNOSTIC 06/12/2014 EGD outpt [facility] HERNIA REPAIR HX 12/01/2011 TOTAL ABDOMINAL [...] once daily. Noble Gilbert, RIGO at [facility]. albuterol (PROVENTIL) 2.5 mg /3 [...] Brother Seizures Brother Coronary Artery Disease Brother [place] Social History Tobacco Use Smoking status: Every [...] guarding or (more content not included)... [facility] HNO ID: [id number] Author: MARYBETH TY, CAMILLE Service: Radiology Author Type: Technologist Type: Allied [...] PATIENT PRESENTS WITH AN IMPLANTABLE OR ATTACHED MILLINERY WORKER: No RADIOLOGY DEPARTMENT: CT; Exam(s) Completed: Lung Screening PERIPHERAL IV DATA: Not applicable SIGNED BY: CAMILLE Harley December 27, 2023 2:36 PM [facility] 12-27-2023 CN Office Visit ([facility] ) JENNIFER RIVAS ([id number]) 1960 F Date Time Provider Department 12/27/23 2:30 PM TERRENCE FLORES [facility] During your visit today, we recorded the following information about you: Pulse Blood pressure Weight 90/minute 116/76 97.6 kg Terrence Flores APRN.ETL TESTER 12/29/2023 10:23 AM Signed LUNG SCREENING ANNUAL [...] evaluation discussed in detail with patient. Jennifer Coxmarilu Mcmullen expressed understanding and is in agreement [...] which included preparing to see the patient, gaii-le-wgjl patient care, completing clinical documentation, performing a medically appropriate examination, counseling and educating the patient/family/caregiv er, ordering medications, tests, or procedures, communicating with other HCPs (not separately reported), independently interpreting results (not separately reported), communicating results to the patient/family/caregiv er, and care coordination (not separately reported). Terrence Flores APRN.[facility] December 27, 2023 12:08 PM History [...] Breo and spiriva daily. Modified Medical Research [place] Dyspnea Scale (MMRC) (more content not included)... Normal [facility] CNOV Office Visit (ORMDNA ) JENNIFER RIVAS ([id number]) 1960 F Date Time Provider Department 12/27/23 [...] tablets by mouth daily at bedtime. Noble Glibert CNP, [facility]. tiotropium bromide (SPIRIVA RESPIMAT) [...] present Swel (more content not included)... Normal [facility] CT Chest for screening WO co ntraston 12-27-2023 IMPRESSION: LungRADS category: 1 LungRADS modifier: None LungRADS 0 reason: n/a Recommendations: Continue annual screening with LDCT in 12 months. Other actionable findings: - ========= Reference: [employer]. Lung CT Screening Reporting and Data System (Lung-RADS). Available at: http://www.acr.org/Andrew lity-Safety/Resources/ LungRADS Drafter Patent: [id number] Transcribe Date/Time: Dec 27 2023 4:14P Dictated by : ILEANA MARQUEZ MD This examination was interpreted and the report reviewed and electronically signed by: ILEANA MARQUEZ MD on Dec 27 2023 4:28PM [facility] * * *Final Report* * * DATE OF EXAM: Dec 27 2023 2:44PM [facility] 0562 - CT LUNG SCREEN WO IVCON [...] without contrast. MQ: CTLCS_6 Patient characteristics: * Mcaa-mt-Lbqxo: 1960; Age at exam: 63 years * Gender: Female * Lung Disease: Asymptomatic (no signs or symptoms of lung disease) * Number of Pack Years: 21.9 * Current smoker (=0) or Number of Years since Quit: 0 * Ordering provider and NPI: ARCELIA GARCIA [id number] * Interpreting radiologist and NPI: John [id number] Exam acquisition parameters: * Exam Date: 12/27/2023 2:44 PM * Site: [facility] * * CT System Graphic Design Specialist: [employer] * CT System Model: [employer] * Tube Current-Time (mA-sec): 60 * Peak [...] None Localizer images: No additional findings. - [facility] Provider, [facility] - 12/27/2023 * * *Final Report* * * DATE OF EXAM: Dec 27 2023 2:44PM [facility] 0562 - CT LUNG SCREEN WO IVCON [...] without contrast. MQ: CTLCS_6 Patient characteristics: * Swkb-pq-Ilklr: 1960; Age at exam: 63 years * Gender: Female * Lung Disease: Asymptomatic (no signs or symptoms of lung disease) * Number of Pack Years: 21.9 * Current smoker (=0) or Number of Years since Quit: 0 * Ordering provider and NPI: ARCELIA GARCIA [id number] * Interpreting radiologist and NPI: John [id number] Exam acquisition parameters: * Exam Date: 12/27/2023 2:44 PM * Site: [facility] * * CT System Graphic Design Specialist: [employer] * CT System Model: [employer] * Tube Current-Time (mA-sec): 60 * Peak [...] months. Other actionable findings: - ========= Reference: [employer]. Lung CT Screening Reporting and Data System (Lung-RADS). Available at: http://www.acr.org/Andrew lity-Safety/Resources/ LungRADS Drafter Patent: [id number] Transcribe Date/Time: Dec 27 2023 4:14P Dictated by : ILEANA MARQUEZ MD This examination was interpreted and the report reviewed and electronically signed by: ILEANA MARQUEZ MD on Dec 27 2023 4:28PM [facility] Study observation (narrative) [facility] CT Chest for screening WO co ntrastOrdered By: Ccf Provider on 12-27-[address] [facility] [address] LUNG SCREEN WO IVCONon CT LUNG SCREEN WO IVCON * * *Final Repor t* * * DATE OF EXAM: Dec 27 2023 2:44PM [facility] 0562 - CT LUNG SCREEN WO IVCON [...] without contrast. MQ: CTLCS_6 Patient characteristics: * Psdr-hi-Uhuwi: 1960; Age at exam: 63 years * Gender: Female * Lung Disease: Asymptomatic (no signs or symptoms of lung disease) * Number of Pack Years: 21.9 * Current smoker (=0) or Number of Years since Quit: 0 * Ordering provider and NPI: ARCELIA GARCIA [id number] * Interpreting radiologist and NPI: John [id number] Exam acquisition parameters: * Exam Date: 12/27/2023 2:44 PM * Site: [facility] * * CT System Graphic Design Specialist: [employer] * CT System Model: [employer] * Tube Current-Time (mA-sec): 60 * Peak [...] months. Other actionable findings: - ========= Reference: [employer]. Lung CT Screening Reporting and Data System (Lung-RADS). Available at: http://www.acr.org/Andrew lity-Safety/Resources/ LungRADS Drafter Patent: [email or web address] Transcribe Date/Time: Dec 27 2023 4:14P Dictated by : ILEANA MARQUEZ MD This examination was interpreted and the report reviewed and electronically signed by: ILEANA MARQUEZ MD on Dec 27 2023 4:28PM EST [id number] [facility] 12-05-2023 [facility] Telephone (INTMWS) JENNIFER RIVAS ([id number]) 1960 F Date Time Provider Department 12/05/23 EDDIE RODRÍGUEZ INTWS During your visit today, we recorded the following information about you: Marlys Cortes LPN 12/05/2023 2:04 PM Signed ----- Message from Eddie Jarquin APRN.CNS sent at 12/05/2023 1:55 PM EDT ----- Please let her know that there is mild arthritic changes noted on knee x-ray. Mild medial compartment joint space narrowing. Marlys Cortes LPN 12/05/2023 2:08 PM Signed Phoned patient spoke to daughter Shanthi and went over results, notes from Eddie Rodríguez FLOOR ASSOCIATE with understanding. Daughter asking what did FLOOR ASSOCIATE want her to do next? See Ortho? Eddie Rodríguez APRN.CNS 12/05/2023 2:16 PM Signed Continue with current medicines, try walking a bit daily before bedtime. I placed a consult for orthopedics, she can make an appointment now if not noting improvement Yolande FaithANN 12/05/2023 2:46 PM Signed Patients daughter notified of providers message and verbalized understanding. Daughter Shanthi would like to make an appointment with orthopedics. Encounter routed to PSS to assist patients daughter in scheduling Yurive Sugar Hdez 12/05/2023 3:37 PM Signed 1st attempt left [...] G89.29] Order(s):CONSULT TO ORTHOPAEDICS [9026] Order #: [id number]: 1 FUTURE Prescriptions as of 12/07/2023 - [...] hernia [K43.6] 03/02/2011 08/17/2018 Depression [F32.A] Disc [[id number]] 08/17/2018 Hyperglycemia [R73.9] 12/15/2018 NEGATIVE MEDICAL HISTORY [...] cancer [Z12 (more content not included)... [facility] ([id number]) 1960 F Date Time Provider Department 12/05/23 EDDIE RODRÍGUEZ INTDuncanWS During your visit today, we recorded the following information about you: Faith Lanier LPN 12/05/2023 11:04 AM Signed ----- Message from Eddie Jarquin APRN.OCC THERAPIST sent at 12/05/2023 10:44 AM EDT ----- [...] message and verbalized understanding. Appointment scheduled with FLOOR ASSOCIATE Allergies As of Date: 12/05/2023 Noted Allergy [...] hernia [K43.6] 03/02/2011 08/17/2018 Depression [F32.A] Disc [[id number]] 08/17/2018 Hyperglycemia [R73.9] 12/15/2018 NEGATIVE MEDICAL HISTORY [...] Status:Closed by FAITH LANIER on 12/05/23 Normal [facility] ALBUMIN/CREATININE RATIO, UR INEon 12-01-2023 Albumin DL <= 20 mg/L (U) [Mass/Vol] mg/dL Normal [facility] Comment on above: Order Comment: Speci men Type: URINE SPECIMENOrdering Facility: [facility] Address: [address] [place] [address] Performed By: #### U ACR ####[facility] [id number] [place] [address] [place] Albumin/Creatinine (U) [Mass ratio] <6 Normal <30 [facility] Comment on above: Order Comment: Speci men Type: URINE SPECIMENOrdering Facility: [facility] Address: [address] [place] [address] Result Comment: Adul t Male and Female Nephrotic Criteria: <30 mg/g is considered normal to mildly increased 30-300 mg/g is considered moderately increased >300 mg/g is considered severely increased KDIGO. (2013). KDIGO 2012 Clinical Practice Guideline for the Evaluation and Management of Chronic Kidney Disease. Official Journal of the International Society of Nephrology, 3(1), 1-150. Performed By: #### U ACR ####[facility] [id number] [place] [id number] [place] Creatinine (U) [Mass/Vol] 189.3 mg/dL Normal 20.0-300.0 [facility] Comment on above: Order Comment: Speci men Type: URINE SPECIMENOrdering Facility: [facility] Address: [address] [place] [address] Performed By: #### U ACR ####[facility] [id number] [place] [id number] [place] CBC W Auto Differential pane l (Bld)on 12-01-2023 Basophils (Bld) [#/Vol] 0.04 10*3/uL NINF [facility] Basophils/100 WBC (Bld) 0.4 % C [facility] Differential cell count method Nom (Bld) Auto [facility] Eosinophils (Bld) [#/Vol] 0.21 10*3/uL [facility] Eosinophils/100 WBC (Bld) 2.3 % [facility] Erythrocyte distribution width (RBC) [Ratio] 13.0 % 11.5 - 15.0 % [facility] Hematocrit (Bld) [Volume fraction] 45.8 % 36.0 - 46.0 % [facility] Hemoglobin (Bld) [Mass/Vol] 14.7 g/dL 11.5 - 15.5 g/dL [facility] Immature granulocytes (Bld) [#/Vol] 0.04 10*3/uL [facility] Immature granulocytes/100 WBC (Bld) 0.4 % [facility] Lymphocytes (Bld) [#/Vol] 3.41 10*3/uL [facility] Lymphocytes/100 WBC (Bld) 37.9 % [facility] MCH (RBC) [Entitic mass] 29.1 pg 26.0 - 34.0 pg [facility] MCHC (RBC) [Mass/Vol] 32.1 g/dL 30.5 - 36.0 g/dL [facility] MCV (RBC) [Entitic vol] 90.7 fL 80.0 - 100.0 fL [facility] Monocytes (Bld) [#/Vol] 0.71 10*3/uL [facility] Monocytes/100 WBC (Bld) 7.9 % [facility] Neutrophils (Bld) [#/Vol] 4.58 10*3/uL [facility] Neutrophils/100 WBC (Bld) 51.1 % [facility] Nucleated RBC (Bld) [#/Vol] [facility] Nucleated RBC/100 WBC (Bld) [Ratio] 0.0 % /100 WBC [facility] Platelet mean volume (Bld) [Entitic vol] 11.3 fL 9.0 - 12.7 fL [facility] Platelets (Bld) [#/Vol] 221 10*3/uL [facility] RBC (Bld) [#/Vol] 5.05 10*6/uL 3.90 - 5.2 0 m/uL [facility] WBC (Bld) [#/Vol] 8.99 10*3/uL [facility] Basophils (Bld) [#/Vol] 0.04 10*3/uL Normal <0.11 [facility] Comment on above: Order Comment: Speci men Type: BLOOD SPECIMEN [facility] Address: [address] [place] [address] Performed By: #### 5 7021-8 #### [facility] CLIA [id number] [place] [address] [place] Basophils/100 WBC (Bld) 0.4 % Normal [facility] Comment on above: Order Comment: Speci men Type: BLOOD SPECIMEN Ordering Facility: [facility] Address: [address] [place] [address] Performed By: #### 5 7021-8 #### [facility] CLIA [id number] [address] [place] [address] [place] Differential cell count method Nom (Bld) Auto Normal [facility] Comment on above: Order Comment: Speci men Type: BLOOD SPECIMEN Ordering Facility: [facility] Address: [address] [place] [address] Performed By: #### 5 7021-8 #### [facility] CLIA [id number] [address] [place] [address] [place] Eosinophils (Bld) [#/Vol] 0.21 10*3/uL Normal <0.46 [facility] Comment on above: Order Comment: Speci men Type: BLOOD SPECIMEN [facility]ing [facility]: [facility] Address: [address] [place] [address] Performed By: #### 5 7021-8 #### [facility] CLIA [id number] [address] [place] [address] [place] Eosinophils/100 WBC (Bld) 2.3 % Normal [facility] Comment on above: Order Comment: Speci men Type: BLOOD SPECIMEN Ordering Facility: [facility] Address: [address] [place] [address] Performed By: #### 5 7021-8 #### [facility] CLIA [id number] [address] [place] [address] [place] Erythrocyte distribution width (RBC) [Ratio] 13.0 % Normal 11.5-15.0 [facility] Comment on above: Order Comment: Speci men Type: BLOOD SPECIMEN Ordering Facility: [facility] Address: [address] [place] [address] Performed By: #### 5 7021-8 #### [facility] CLIA [id number] [address] [place] [address] [place] Hematocrit (Bld) [Volume fraction] 45.8 % Normal 36.0-46.0 [facility] Comment on above: Order Comment: Speci men Type: BLOOD SPECIMEN [facility]ing [facility]: [facility] Address: [address] [place] [address] Performed By: #### 5 7021-8 #### [facility] CLIA [id number] [address] [place] [address] [place] Hemoglobin (Bld) [Mass/Vol] 14.7 g/dL Normal 11.5-15.5 [facility] Comment on above: Order Comment: Speci men Type: BLOOD SPECIMEN [facility]ing Facility: [facility] Address: [address] [place] [address] Performed By: #### 5 7021-8 #### [facility] CLIA [id number] [address] [place] [address] [place] Immature granulocytes (Bld) [#/Vol] 0.04 10*3/uL Normal <0.10 [facility] Comment on above: Order Comment: Speci men Type: BLOOD SPECIMEN [facility]ing [facility]: [facility] Address: [address] [place] [address] Performed By: #### 5 7021-8 #### [facility] CLIA [id number] [address] [place] [address] [place] Immature granulocytes/100 WBC (Bld) 0.4 % Normal [facility] Comment on above: Order Comment: Speci men Type: BLOOD SPECIMEN [facility]ing [facility]: [facility] Address: [address] [place] [address] Performed By: #### 5 7021-8 #### [facility] CLIA [id number] [address] [place] [address] [place] Lymphocytes (Bld) [#/Vol] 3.41 10*3/uL Normal 1.00-4.00 [facility] Comment on above: Order Comment: Speci men Type: BLOOD SPECIMEN [facility]ing [facility]: [facility] Address: [address] [place] [address] Performed By: #### 5 7021-8 #### [facility] CLIA [id number] [address] [place] [address] [place] Lymphocytes/100 WBC (Bld) 37.9 % Normal [facility] Comment on above: Order Comment: Speci men Type: BLOOD SPECIMEN Ordering [facility]: [facility] Address: [address] [place] [address] Performed By: #### 5 7021-8 #### [facility] CLIA [id number] [address] [place] [address] [place] MCH (RBC) [Entitic mass] 29.1 pg Normal 26.0-34.0 [facility] Comment on above: Order Comment: Speci men Type: BLOOD SPECIMEN Ordering Facility: [facility] Address: [address] [place] [address] Performed By: #### 5 7021-8 #### [facility] CLIA [id number] [address] [place] [address] [place] MCHC (RBC) [Mass/Vol] 32.1 g/dL Normal 30.5-36.0 [facility] Comment on above: Order Comment: Speci men Type: BLOOD SPECIMEN Ordering [facility]: [facility] Address: [address] [place] [address] Performed By: #### 5 7021-8 #### [facility] CLIA [id number] [address] [place] [address] [place] MCV (RBC) [Entitic vol] 90.7 fL Normal 80.0-100.0 [facility] Comment on above: Order Comment: Speci men Type: BLOOD SPECIMEN Ordering Facility: [facility] Address: [address] [place] [address] Performed By: #### 5 7021-8 #### [facility] CLIA [id number] [address] [place] [address] [place] Monocytes (Bld) [#/Vol] 0.71 10*3/uL Normal <0.87 [facility] Comment on above: Order Comment: Speci men Type: BLOOD SPECIMEN Ordering [facility]: [facility] Address: [address] [place] [address] Performed By: #### 5 7021-8 #### [facility] CLIA [id number] [address] [place] [address] [place] Monocytes/100 WBC (Bld) 7.9 % Normal [facility] Comment on above: Order Comment: Speci men Type: BLOOD SPECIMEN Ordering Facility: [facility] Address: [address] [place] [address] Performed By: #### 5 7021-8 #### [facility] CLIA [id number] [address] [place] [address] [place] Neutrophils (Bld) [#/Vol] 4.58 10*3/uL Normal 1.45-7.50 [facility] Comment on above: Order Comment: Speci men Type: BLOOD SPECIMEN Ordering [facility]: [facility] Address: [address] [place] [address] Performed By: #### 5 7021-8 #### [facility] CLIA [id number] [address] [place] [address] [place] Neutrophils/100 WBC (Bld) 51.1 % Normal [facility] Comment on above: Order Comment: Speci men Type: BLOOD SPECIMEN Ordering [facility]: [facility] Address: [address] [place] [address] Performed By: #### 5 7021-8 #### [facility] CLIA [id number] [address] [place] [address] [place] Nucleated RBC (Bld) [#/Vol] 10*3/uL Normal <0.01 [facility] Comment on above: Order Comment: Speci men Type: BLOOD SPECIMEN Ordering [facility]: [facility] Address: [address] [place] [address] Performed By: #### 5 7021-8 #### [facility] CLIA [id number] [address] [place] [address] [place] Nucleated RBC/100 WBC (Bld) [Ratio] 0.0 /100 WBC Normal [facility] Comment on above: Order Comment: Speci men Type: BLOOD SPECIMEN Ordering [facility]: [facility] Address: [address] [place] [address] Performed By: #### 5 7021-8 #### [facility] CLIA [id number] [address] [place] [address] [place] Platelet mean volume (Bld) [Entitic vol] 11.3 fL Normal 9.0-12.7 [facility] Comment on above: Order Comment: Speci men Type: BLOOD SPECIMEN [facility]: [facility] Address: [address] [place] [address] Performed By: #### 5 7021-8 #### [facility] CLIA [id number] [address] [place] [address] [place] Platelets (Bld) [#/Vol] 221 10*3/uL Normal 150-400 [facility] Comment on above: Order Comment: Speci men Type: BLOOD SPECIMEN [facility]ing [facility]: [facility] Address: [address] [place] [address] Performed By: #### 5 7021-8 #### [facility] CLIA [id number] [address] [place] [address] [place] RBC (Bld) [#/Vol] 5.05 10*6/uL Normal 3.90-5.20 [facility] Comment on above: Order Comment: Speci men Type: BLOOD SPECIMEN [facility]ing [facility]: [facility] Address: [address] [place] [address] Performed By: #### 5 7021-8 #### [facility] CLIA [id number] [address] [place] [address] [place] WBC (Bld) [#/Vol] 8.99 10*3/uL Normal 3.70-11.00 [facility] Comment on above: Order Comment: Speci men Type: BLOOD SPECIMEN Ordering [facility]: [facility] Address: [address] [place] [address] Performed By: #### 5 7021-8 #### [facility] CLIA [id number] [address] [place] [address] [place] CNOVon 12-01-2023 CNOV Office Visit (INTMWS ) JENNIFER RIVAS ([id number]) 1960 F Date Time Provider Department 12/01/23 10:00 AM EDDIE RODRÍGUEZ INTMWS During your visit today, we recorded the following information about you: Pulse Respiration Blood pressure Weight 71/minute 16/minute 135/83 97.3 kg Eddie Rodríguez, [place].OCC THERAPIST 12/05/2023 10:42 AM Addendum SUBJECTIVE: Urine Albumin:Creatinine [...] a heating pad. Does not take anything efjn-mai-pcgfoik such as Tylenol ibuprofen or naproxen. Review [...] Left lower leg: No edema. 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 Noble Gilbert CNP at [facility]. albuterol (PROVENTIL) 2.5 mg /3 [...] supplies. Face (more content not included)... Normal [facility] Comprehensive metabolic 2000 panelon 12-01-2023 Albumin [Mass/Vol] 4.0 g/dL Normal 3.9-4.9 [facility] Comment on above: Order Comment: Speci men Type: BLOOD SPECIMEN [facility] Address: [address] [place] [address] Performed By: #### 5 5454-3 #### [facility] CLIA [id number] [address] [place] [address] [place] ALP [Catalytic activity/Vol] 145 U/L High 34-123 [facility] Comment on above: Order Comment: Speci men Type: BLOOD SPECIMEN Ordering [facility]: [facility] Address: [address] [place] [address] Performed By: #### 5 5454-3 #### [facility] CLIA [id number] [address] [place] [address] [place] ALT [Catalytic activity/Vol] 17 U/L Normal 7-38 [facility] Comment on above: Order Comment: Speci men Type: BLOOD SPECIMEN [facility]ing [facility]: [facility] Address: [address] [place] [address] Performed By: #### 5 5454-3 #### [facility] CLIA [id number] [address] [place] [address] [place] Anion gap [Moles/Vol] 10 mmol/L Normal 8-15 [facility] Comment on above: Order Comment: Speci men Type: BLOOD SPECIMEN [facility]ing [facility]: [facility] Address: [address] [place] [address] Performed By: #### 5 5454-3 #### [facility] CLIA [id number] [address] [place] [address] [place] AST [Catalytic activity/Vol] 21 U/L Normal 13-35 [facility] Comment on above: Order Comment: Speci men Type: BLOOD SPECIMEN [facility]ing [facility]: [facility] Address: [address] [place] [address] Performed By: #### 5 5454-3 #### [facility] CLIA [id number] [address] [place] [address] [place] Bilirubin [Mass/Vol] 0.3 mg/dL Normal 0.2-1.3 [facility] Comment on above: Order Comment: Speci men Type: BLOOD SPECIMEN Ordering [facility]: [facility] Address: [address] [place] [address] Performed By: #### 5 5454-3 #### [facility] CLIA [id number] [address] [place] [address] [place] Calcium [Mass/Vol] 9.6 mg/dL Normal 8.5-10.2 [facility] Comment on above: Order Comment: Speci men Type: BLOOD SPECIMEN [facility]ing Facility: [facility] Address: [address] [place] [address] Performed By: #### 5 5454-3 #### [facility] CLIA [id number] [address] [place] [address] [place] Chloride [Moles/Vol] 105 mmol/L Normal 98-107 [facility] Comment on above: Order Comment: Speci men Type: BLOOD SPECIMEN [facility]ing [facility]: [facility] Address: [address] [place] [address] Performed By: #### 5 5454-3 #### [facility] CLIA [id number] [address] [place] [address] [place] CO2 [Moles/Vol] 25 mmol/L Normal 22-30 [facility] Comment on above: Order Comment: Speci men Type: BLOOD SPECIMEN Ordering [facility]: [facility] Address: [address] [place] [address] Performed By: #### 5 5454-3 #### [facility] CLIA [id number] [address] [place] [address] [place] Creatinine [Mass/Vol] 0.96 mg/dL Normal 0.58-0.96 [facility] Comment on above: Order Comment: Meghnai men Type: BLOOD SPECIMEN Ordering Facility: [facility] Address: [address] [place] [address] Performed By: #### 5 5454-3 #### [facility] CLIA [id number] [address] [place] [address] [place] Creatinine and Glomerular filtration rate.predicted panel (S/P/Bld) 67 mL/min/1.73m??? Normal >=60 [facility] Comment on above: Order Comment: Alma men Type: BLOOD SPECIMEN Ordering [facility]: [facility] Address: [address] [place] [address] Result Comment: Susie mated Glomerular Filtration Rate [...] accurately reflect actual GFR. Performed By: #### 5 5454-3 #### [facility] CLIA [id number] [address] [place] [address] [place] Glucose [Mass/Vol] 131 mg/dL High 74-99 [facility] Comment on above: Order Comment: Alma men Type: BLOOD SPECIMEN Ordering [facility]: [facility] Address: [address] [place] [address] Result Comment: The [place] [employer] (ADA) provides guidance for cutoff [...] Standards of Medical Care in Diabetes 2016, [place] [employer]. Diabetes Care. 2016.39(Suppl 1). Performed By: #### 5 5454-3 #### [facility] CLIA [id number] [address] [place] [address] [place] Potassium [Moles/Vol] 4.4 mmol/L Normal 3.7-5.1 [facility] Comment on above: Order Comment: Speci men Type: BLOOD SPECIMEN Ordering [facility]: [facility] Address: [address] [place] [address] Performed By: #### 5 5454-3 #### [facility] CLIA [id number] [address] [place] [address] [place] Protein [Mass/Vol] 7.2 g/dL Normal 6.3-8.0 [facility] Comment on above: Order Comment: Meghnai herb Type: BLOOD SPECIMEN [facility]ing Facility[facility] Address: [address] [place] [address] Performed By: #### 5 5454-3 #### [facility] CLIA [id number] [address] [place] [address] [place] Sodium [Moles/Vol] 140 mmol/L Normal 136-144 [facility] Comment on above: Order Comment: Speci men Type: BLOOD SPECIMEN Ordering Facility: [facility] Address: [address] [place] [address] Performed By: #### 5 5454-3 #### [facility] CLIA [id number] [address] [place] [address] [place] Urea nitrogen [Mass/Vol] 16 mg/dL Normal 7-21 [facility] Comment on above: Order Comment: Alma estevez Type: BLOOD SPECIMEN Ordering Facility: [facility] Address: [address] [place] [address] Performed By: #### 5 5454-3 #### [facility] CLIA [id number] [address] [place] [address] [place] HbA1c (Bld)on 12-01-2023 Average glucose Estimated from glycated hemoglobin (Bld) [Mass/Vol] 140 mg/dL Normal [facility] Comment on above: Order Comment: Alma estevez Type: BLOOD SPECIMEN Ordering Facility: [facility] Address: [address] [place] [address] Result Comment: eAG: (Estimated average glucose) is a calculated value from HgbA1c and is field support representative of the average blood glucose level in the last 2-3 month period. Performed By: #### 5 5454-3 #### [facility] CLIA [id number] [address] [place] [address] [place] [facility] HbA1c (Bld) [Mass fraction] 6.5 % High 4.3-5.6 [facility] Comment on above: Order Comment: Alma estevez Type: BLOOD SPECIMEN Ordering Facility: [facility] Address: [address] [place] [address] Result Comment: Amer ican Diabetes Association guidelines indicate that patients with HgbA1c in the range 5.7-6.4% are at increased risk for development of diabetes, and intervention by lifestyle modification may be beneficial. HgbA1c greater or equal to 6.5% is considered diagnostic of diabetes. Performed By: #### 5 5454-3 #### [facility] CLIA [id number] [address] [place] [address] [place] Lipid 1996 panelon 4 Cholesterol [Mass/Vol] 131 mg/dL Normal <200 [facility] Comment on above: Order Comment: Alma estevez Type: BLOOD SPECIMEN Ordering Facility: [facility] Address: [address] [place] [address] Result Comment: <200 mg/dL, Desirable 200-239 mg/dL, Borderline high >239 mg/dL, High Performed By: #### 5 5454-3 #### [facility] CLIA [id number] [address] [place] [address] [place] Cholesterol in HDL [Mass/Vol] 37 mg/dL Low >39 [facility] Comment on above: Order Comment: Alma estevez Type: BLOOD SPECIMEN Ordering Facility: [facility] Address: [address] [place] [address] Result Comment: 40-5 9 mg/dL, Acceptable >59 mg/dL, High: Negative risk factor for coronary heart disease <40 mg/dL, Low: Positive risk factor for coronary heart disease Performed By: #### 5 5454-3 #### [facility] CLIA [id number] [address] [place] [address] [place] Cholesterol in LDL [Mass/Vol] 76 mg/dL Normal <100 [facility] Comment on above: Order Comment: Alma estevez Type: BLOOD SPECIMEN Ordering Facility: [facility] Address: [address] [place] [address] Result Comment: <100 mg/dL, Optimal 100-129 mg/dL, Near optimal/above optimal 130-159 mg/dL, Borderline high 160-189 mg/dL, High >189 mg/dL, Very high Secondary prevention optimal LDL Cholesterol levels are recommended to be < 70 mg/dL Performed By: #### 5 5454-3 #### [facility] CLIA [id number] [address] [place] [address] [place] Cholesterol in LDL/Cholesterol in HDL [Mass ratio] 2.05 {ratio} Normal <2.54 [facility] Comment on above: Order Comment: Alma men Type: BLOOD SPECIMEN Ordering Facility: [facility] Address: [address] [place] [address] Result Comment: Refe rence: 1. National Cholesterol Education Program ATP III Guideline At-A-Glance Quick Desk Reference: National Heart, Lung, and Blood [place]. National Institutes of Health. 2001: NIH Publication No. 01-3305. 2. An International Atherosclerosis Society position paper: global recommendations for the management of dyslipidemia: executive summary, Atherosclerosis. 2014: 232(2):410-413. Performed By: #### 5 5454-3 #### [facility] CLIA [id number] [address] [place] [address] [place] Cholesterol in VLDL [Mass/Vol] 18 mg/dL Normal <30 [facility] Comment on above: Order Comment: Alma estevez Type: BLOOD SPECIMEN Ordering Facility: [facility] Address: [address] [place] [address] Performed By: #### 5 5454-3 #### [facility] CLIA [id number] [address] [place] [address] [place] Cholesterol non HDL [Mass/Vol] 94 mg/dL Normal <130 [facility] Comment on above: Order Comment: Alma estevez Type: BLOOD SPECIMEN Ordering Facility: [facility] Address: [address] [place] [address] Result Comment: <130 mg/dL, Optimal 130-159 mg/dL, Near optimal/above optimal 160-189 mg/dL, Borderline high 190-219 mg/dL, High >219 mg/dL, Very high Secondary prevention optimal non HDL Cholesterol levels are recommended to be <100 mg/dL Performed By: #### 5 5454-3 #### [facility] CLIA [id number] [address] [place] [address] [place] Cholesterol.total/Terrie sterol in HDL [Mass ratio] 3.54 {ratio} Normal <5.10 [facility] Comment on above: Order Comment: Alma estevez Type: BLOOD SPECIMEN Ordering Facility: [facility] Address: [address] [place] [address] Performed By: #### 5 5454-3 #### [facility] CLIA [id number] [address] [place] [address] [place] FASTING TIME 16 hrs Normal [facility] Comment on above: Order Comment: Speci men Type: BLOOD SPECIMEN Ordering Facility: [facility] Address: [address] [place] [address] Performed By: #### 5 5454-3 #### [facility] CLIA [id number] [address] [place] [address] [place] Triglyceride [Mass/Vol] 90 mg/dL Normal <150 [facility] Comment on above: Order Comment: Speci men Type: BLOOD SPECIMEN Ordering Facility: [facility] Address: [address] [place] [address] Result Comment: <150 mg/dL, Normal 150-199 mg/dL, Borderline high 200-499 mg/dL, High >499 mg/dL, Very high Performed By: #### 5 5454-3 #### [facility] CLIA [id number] [address] [place] [address] [place] XR KNEE 4V [...] space narrowing. IMPRESSION: No acute osseous abnormality Drafter Patent: PSCB Transcribe Date/Time: Dec 05 2023 12:21P Dictated by : MARCIA PURVIS MD This examination was interpreted and the report reviewed and electronically signed by: MARCIA PURVIS MD on Dec 05 2023 12:22PM EST [id number] Normal [facility] XR LUMBAR 3V AP/LAT/L5-S1on 12-01-2023 XR LUMBAR [...] spine are presented. FINDINGS: There are five [id number] lumbar vertebrae. No acute fractures demonstrated. There is grade 1 L5 on S1 anterolisthesis. There appears L5-S1 disc space narrowing. There is moderate osteophyte formation, with facet arthrosis. Multilevel kissing spine seen on lateral view. IMPRESSION: Lumbar spine degenerative changes as described above. Drafter Patent: [facility] Transcribe Date/Time: Dec 05 2023 8:34A Dictated by : PEPE VELASQUEZ MD This examination was interpreted and the report reviewed and electronically signed by: PEPE VELASQUEZ MD on Dec 05 2023 8:37AM EST [id number] Normal [facility] DBT Breast - left diagnostic for implanton 10-03-2023 * * *Final Report* * * DATE OF EXAM: Oct 03 2023 2:40PM [id number] - [facility] DIAG W SUE LT / PROCEDURE REASON: Abnormal mammogram of left breast * * * * Physician Interpretation * * * * RESULT: #[id number] - [facility] DIAG W SUE LT #[id number] - [facility] appCREAR BREAST LTD LT UNILATERAL LEFT DIGITAL DIAGNOSTIC [...] in the breast. DIVISION OF RADIOLOGY Provider, [facility] - 10/03/2023 * * *Final Report* * * DATE OF EXAM: Oct 03 2023 2:40PM [id number] [id number] - [facility] JOHNSON Valencia SUE LT / PROCEDURE REASON: Abnormal mammogram of left breast * * * * Physician Interpretation * * * * RESULT: #[id number] - [facility] DIAG W SUE LT #[id number] - [facility] US BREAST LTD LT UNILATERAL [...] Health, Family Medicine, and Medical/Surgical Oncology, the [facility] has carefully reviewed the data and [...] their providers when to stop screening mammograms. Rocket Engine Tester(s): Haley Walls, [facility]; Naima Vogel RT(R)(M), [facility] OVERALL STUDY BIRADS: PROBABLY BENIGN Drafter Patent: Aristides Transcribe Date/Time: Oct 03 2023 2:20P Dictated by: EVELIA IVERSON MD This examination was interpreted and the report reviewed and electronically signed by: EVELIA IVERSON MD on Oct 03 2023 3:16PM EST [facility] No Panel Informationon 10-02 IMPRESSION: PROBABLY [...] Health, Family Medicine, and Medical/Surgical Oncology, the [facility] has carefully reviewed the data and [...] their providers when to stop screening mammograms. Rocket Engine Tester(s): Haley Walls, [facility]; RT Marimar(R)(M), [facility] OVERALL STUDY BIRADS: PROBABLY BENIGN Drafter Patent: Aristides Transcribe Date/Time: Oct 03 2023 2:20P Dictated by : EVELIA IVERSON MD This examination was interpreted and the report reviewed and electronically signed by: EVELIA IVERSON MD on Oct 03 2023 3:16PM [facility] DIVISION OF RADIOLOGY Radiology Study observation (narrative) [facility] No Panel InformationOrdered By: Cc Provider on 10-03-2023 [facility] US Breast - left limitedon 0 10-03-2023 * * *Final Report* * * DATE OF EXAM: Oct 03 2023 2:53PM [id number] - [facility] appCREAR BREAST LTD LT / PROCEDURE REASON: Abnormal mammogram of left breast * * * * Physician Interpretation * * * * #[id number] - [facility] DIAG W SUE LT #[id number] - [facility] US BREAST LTD LT UNILATERAL [...] in the breast. DIVISION OF RADIOLOGY Provider, [facility] - 10/03/2023 * * *Final Report* * * DATE OF EXAM: Oct 03 2023 2:53PM WRU 0593 - [facility] appCREAR BREAST LTD LT / PROCEDURE REASON: Abnormal mammogram of left breast * * * * Physician Interpretation * * * * #[id number] - [facility] DIAG W SUE LT #[id number] - [facility] appCREAR BREAST LTD LT UNILATERAL LEFT DIGITAL DIAGNOSTIC [...] Health, Family Medicine, and Medical/Surgical Oncology, the [facility] has carefully reviewed the data and [...] their providers when to stop screening mammograms. Rocket Engine Tester(s): Haley Walls, [facility]; RT Marimar(R)(M), [facility] OVERALL STUDY BIRADS: PROBABLY BENIGN Drafter Patent: Aristides Transcribe Date/Time: Oct 03 2023 2:20P Dictated by : EVELIA IVERSON MD This examination was interpreted and the report reviewed and electronically signed by: EVELIA IVERSON MD on Oct 03 2023 3:16PM [facility] Colonoscopy Study observatio non 09-13-2023 [facility] G[facility] Patient Name: Jennifer Mcmullen [...] for surveillance. (more content not included)... [employer] [facility] Radiology Study observation (narrative) [facility] Shantal 02-21-2023 Ethanol Level <10.0 Normal [facility] ([place]) Comment on above: Performed By: #### A #### [place] [address] [address] HEAD OR BRAIN W/O CONTRAS Ton [...] 1:12:11 PM Ordering Provider: RAYMOND Lubin [facility] ([place]) CT SPINE CERVICAL W/O CONTRA STon 02-21-2023 CT SPINE CERVICAL W/O CONTRAST ORIGINAL [...] 1:44:14 PM Ordering Provider: RAYMOND Lubin [facility] ([place] THORAX W/ CONTRASTon 02-10 CT THORAX W/ CONTRAST ORIGINAL EXAMINATION: CT OF THE CHEST WITH [id number]/12/2023 1:18 pm TECHNIQUE: CT of the chest [...] 02/21/2023 1:39:30 PM Ordering Provider: RAYMOND Lubin [facility]) LABORATORYOrdered By: SYSTEM SYSTEM on 02-21-2023 Ethanol [Mass/Vol] mg/dL Invalid [...] 02/21/2023 12:51:57 PM Ordering Provider: RAYMOND Lubin [facility]) XR HUMERUS MINIMUM 2 VIEWS L [facility] 02-21-2023 XR HUMERUS MINIMUM 2 VIEWS LEFT [...] 12:54:24 PM Ordering Provider: RAYMOND Lubin [facility] ([place]) XR PELVIS 1 OR 2 VIEWSon XR [...] Date: 02/21/2023 12:52:43 PM Ordering Provider: RAYMOND MASHA Tristian [facility]) XR SHOULDER MINIMUM 2 VIEWS LEFTon 02-21-2023 [...] 12:53:20 PM Ordering Provider: RAYMOND Lubin [facility] ([place]) Absolute lymphocyte countOrd ered By: Ronak Marte on 01-26-2023 Lymphocytes Auto (Unsp spec) [#/Vol] 3.09 10*3/uL 0.83-4.51 [facility] Basophil percentageOrdered B y: Ronak Marte on 01-26-2023 Basophils/100 WBC (Bld) 0.4 % 0-1 [facility] Chloride [Moles/Vol] 111 mmol/L 98-107 [facility] Eosinophils/100 WBC (Bld) 2.4 % 0-5 [facility] Glucose [Mass/Vol] 147 mg/dL 74-106 [facility] Comment on above: Fasting Glucose resu lt greater than or equal to 126 mg/dL suggests DIABETES MELLITUS per A.D.A. criteria. Neutrophils (Bld) [#/Vol] 3.9 10*3/uL 2.0-7.7 [facility] Neutrophils/100 WBC (Bld) 50.0 % 47-70 [facility] Potassium [Moles/Vol] 3.6 mmol/L 3.5-5.1 [facility] Sodium [Moles/Vol] 141 mmol/L 136-145 [facility] WBC (Bld) [#/Vol] 7.9 10*3/uL 4.4-11.0 [facility] Blood erythrocytes count (nu mber/volume)Ordered By: Ronak Marte on 01-26-2023 RBC (Bld) [#/Vol] 4.96 10*6/uL 4.2-5.4 [facility] Blood hemoglobin measurement (mass/volume)Ordered By: Ronak Marte on 01-26-2023 Hemoglobin (Bld) [Mass/Vol] 14.8 g/dL 12.0-15.0 [facility] Blood lymphocytes/100 leukoc ytesOrdered By: Ronak Marte on 01-26-2023 Lymphocytes/100 WBC (Bld) 39.4 % 19-41 [facility] Blood monocytes/100 leukocyt esOrdered By: Ronak Marte on 01-26-2023 Monocytes/100 WBC (Bld) 7.5 % 0-10 [facility] Blood platelet mean volumeOr dered By: Ronak Marte on 01-26-2023 Platelet mean volume (Bld) [Entitic vol] 11.6 fL 6.2-12.0 [facility] Determination of erythrocyte mean corpuscular volume (MCV)Ordered By: Ronak Marte on 01-26-2023 MCV (RBC) [Entitic vol] 90.5 fL 81-99 [facility] Hematocrit Auto (Bld) [Volum e fraction]Ordered By: Ronak Marte on 01-26-2023 Hematocrit (Bld) [Volume fraction] 44.9 % 37-47 [facility] Laboratory - Chemistry and C hemistry - challengeOrdered By: Ronak Marte on 01-26-2023 CO2 [Moles/Vol] 26.0 mmol/L 21.0-32.0 [facility] Urea nitrogen/Creatinine [Mass ratio] 10.8 mg/mg 10-20 [facility] Laboratory - Hematology and Cell countsOrdered By: Ronak Marte on 01-26-2023 Erythrocyte distribution width (RBC) [Entitic vol] 43.3 fL 35.1-43.9 [facility] Erythrocyte distribution width (RBC) [Ratio] 13.1 % 11.6-14.6 [facility] Immature granulocytes/100 WBC (Bld) 0.300 % 0.0-0.9 [facility] Comment on above: IG% - Immature Granu locytes (promyelocytes, myelocytes and metamyelocytes) > 1% indicates that a LEFT SHIFT is Present. MCH (RBC) [Entitic mass] 29.8 pg 27.0-32.0 [facility] Nucleated RBC/100 WBC (Bld) [Ratio] 0 % 0-5 [facility] MCHC Auto (RBC) [Mass/Vol]Or dered By: Ronak Marte on 01-26-2023 MCHC (RBC) [Mass/Vol] 33.0 g/dL 32-36 [facility] No Panel InformationOrdered By: Ronak Marte on 01-26-2023 Troponin I High Sensitivity 5 pg/mL 3.0-54.0 [facility] Comment on above: Please Note: New Manjula t Units and Gender Specific Reference Ranges. For more information see Policy Stat Procedure [place] High Sensitivity Troponin (TNIH) and attachments. Estimated Creatinine Clearance Calc 38.71 ml/min [facility] Estimated GFR (MDRD) Amer 64 mL/min >60 [facility] Comment on above: GFR Calc Estimated GFR (MDRD) Non-Af Amer 53 mL/min >60 [facility] Comment on above: Non- GFR Calc Platelets bldOrdered By: Philip Marte on 01-26-2023 Platelets (Bld) [#/Vol] 215 10*3/uL 150-450 [facility] Serum or plasma calcium enedelia urement (mass/volume)Ordered By: Ronak Marte on 01-26-2023 Calcium [Mass/Vol] 9.2 mg/dL 8.5-10.1 [facility] Serum or plasma creatinine m easurement (mass/volume)Ordered By: Ronak Marte on 01-26-2023 Creatinine [Mass/Vol] 1.11 mg/dL 0.55-1.02 [facility] Comment on above: The validity of the calculated GFR & GFRAA in patients over 70 years has not been determined. Clinical correlation is essential. Serum or plasma urea nitroge n measurement (mass/volume)Ordered By: Ronak Marte on 01-26-2023 Urea nitrogen [Mass/Vol] 12 mg/dL -18 [facility] Thin prep Papanicolaou smear with manual screeningOrdered By: Ronak Marte on 01-26-2023 Thin prep Papanicolaou smear with manual screening 4 - [facility] XR Hand - left PA and Latera l and Obliqueon 11-23-2022 IMPRESSION: No acute osseous findings. Drafter Patent: [email or web address] Transcribe Date/Time: Nov 23 2022 7:56A Dictated by : SUNSHINE VARGAS MD This examination was interpreted and the report reviewed and electronically signed by: SUNSHINE VARGAS MD on Nov 23 2022 7:57AM [facility] DIVISION OF RADIOLOGY * * *Final Report* [...] no bony erosions. DIVISION OF RADIOLOGY Provider, [facility]c [facility] - 11/23/2022 * * *Final Report* [...] erosions. IMPRESSION IMPRESSION: No acute osseous findings. Drafter Patent: [email or web address] Transcribe Date/Time: Nov 23 2022 7:56A Dictated by : SUNSHINE VARGAS MD This examination was interpreted and the report reviewed and electronically signed by: SUNSHINE VARGAS MD on Nov 23 2022 7:57AM EST [facility] XR Hand - left PA and Latera l and ObliqueOrdered By: Ccf Provider on 11-23-2022 [facility] CBC panel Auto (Bld)on 11-18 Erythrocyte distribution width (RBC) [Ratio] 13.0 % 11.5 - 15.0 % [facility] Hematocrit (Bld) [Volume fraction] 44.9 % 36.0 - 46.0 % [facility] Hemoglobin (Bld) [Mass/Vol] 15.0 g/dL 11.5 - 15.5 g/dL [facility] MCH (RBC) [Entitic mass] 30.1 pg 26.0 - 34.0 pg [facility] MCHC (RBC) [Mass/Vol] 33.4 g/dL 30.5 - 36.0 g/dL [facility] MCV (RBC) [Entitic vol] 90.0 fL 80.0 - 100.0 fL [facility] Nucleated RBC (Bld) [#/Vol] <0.01 k/uL [facility] Platelet mean volume (Bld) [Entitic vol] 11.3 fL 9.0 - 12.7 fL [facility] Platelets (Bld) [#/Vol] 214 10*3/uL 150 - 400 k/uL [facility] RBC (Bld) [#/Vol] 4.99 10*6/uL 3.90 - 5.2 0 m/uL [facility] WBC (Bld) [#/Vol] 10.10 10*3/uL 3.70 - 11.00 k/uL [facility] ESR Westergren method (Bld) [Velocity]on 11-18-2022 ESR (Bld) [Velocity] 17 mm/h 0 - 20 mm/hr [facility] XR Hand - left PA and Latera l and Obliqueon 11-18-2022 [facility]-03-2022 [facility] XR Shoulder - left 3 Viewson 06-03-2022 IMPRESSION: No acute osseous abnormality Drafter Patent: [facility] Transcribe Date/Time: Jun 03 2022 3:21P Dictated by : MARCIA PURVIS MD This examination was interpreted and the report reviewed and electronically signed by: MARCIA PURVIS MD on Jun 03 2022 3:22PM [facility] DIVISION OF RADIOLOGY * * *Final Report* [...] acromioclavicular degenerative disease. DIVISION OF RADIOLOGY Provider, [facility] - 06/03/2022 * * *Final Report* * [...] disease. IMPRESSION IMPRESSION: No acute osseous abnormality Drafter Patent: [email or web address] Transcribe Date/Time: Jun 03 2022 3:21P Dictated by : MARCIA PURVIS MD This examination was interpreted and the report reviewed and electronically signed by: MARCIA PURVIS MD on Jun 03 2022 3:22PM EST [facility] XR Shoulder - left 3 ViewsOr dered By: Ccf Provider on 06-03-2022 [facility] XR SHOULDER GENERAL 3V OR MO RE AP/TRUE AP/OTHER LEFTon 05-31-2022 [facility] XR Shoulder - left 3 Viewson 05-31-2022 Radiology Study observation (narrative) [facility] CT LUNG SCREEN WO IVCONon [facility] Absolute lymphocyte counton 02-14-2022 Lymphocytes Auto (Unsp spec) [#/Vol] 3.64 10*3/uL 0.83-4.51 [facility] Work Phone: Amorphous sediment detection in urine sediment by light microscopyon 02-14-2022 Amorphous sediment LM Ql (Urine sed) 1+ [facility] Work Phone: Basophil percentageon 2021 Basophil percentage 0 SEEN /hpf 0-[address] [facility] Work Phone: Basophils/100 WBC (Bld) 0.4 % 0-1 [facility] Work Phone: Bilirubin [Mass/Vol] 0.20 mg/dL 0.20-1.[address] [facility] Work Phone: Comment on above: For patients on eltr ombopag therapy, use of Dimension [place] TBIL is not recommended. Chloride [Moles/Vol] 109 mmol/L 98-[address] [facility] Work Phone: Eosinophils/100 WBC (Bld) 3.1 % 0-5 [facility] Work Phone: Glucose [Mass/Vol] 118 mg/dL 74-106 [facility] Work Phone: Comment on above: Fasting Glucose resu lt from 100 to 125 mg/dL suggests IMPAIRED HOMEOSTASIS per A.D.A. criteria. Neutrophils (Bld) [#/Vol] 5.3 10*3/uL 2.0-7.7 [facility] Work Phone: Neutrophils/100 WBC (Bld) 52.7 % 47-70 [facility] Work Phone: [phone] Potassium [Moles/Vol] 3.8 mmol/L 3.5-5.1 [facility] Work Phone: [phone] Protein [Mass/Vol] 7.1 g/dL 6.4-8.2 [facility] Work Phone: [phone] Sodium [Moles/Vol] 140 mmol/L 136-145 [facility] Work Phone: WBC (Bld) [#/Vol] 10.0 10*3/uL 4.4-11.0 [facility] Work Phone: Bilirubin Test strip Ql (U)o n 02-14-2022 Bilirubin Ql (U) Negative Negative [facility] Work Phone: [phone] Blood erythrocytes count (nu mber/volume)on 02-14-2022 RBC (Bld) [#/Vol] 4.95 10*6/uL 4.2-5.4 [facility] Work Phone: Blood hemoglobin measurement (mass/volume)on 02-14-2022 Hemoglobin (Bld) [Mass/Vol] 14.4 g/dL 12.0-15.0 [facility] Work Phone: Blood lymphocytes/100 leukoc yteson 02-14-2022 Lymphocytes/100 WBC (Bld) 36.4 % 19-41 [facility] Work Phone: Blood monocytes/100 leukocyt eson 02-14-2022 Monocytes/100 WBC (Bld) 6.8 % 0-10 [facility] Work Phone: Blood platelet mean volumeon 02-14-2022 Platelet mean volume (Bld) [Entitic vol] 11.2 fL 6.2-12.0 [facility] Work Phone: [phone] Determination of erythrocyte mean corpuscular volume (MCV)on 02-14-2022 MCV (RBC) [Entitic vol] 88.3 fL 81-99 [facility] Work Phone: [phone] Hematocrit Auto (Bld) [Volum e fraction]on 02-14-2022 Hematocrit (Bld) [Volume fraction] 43.7 % 37-47 [facility] Work Phone: [phone] Ketones Test strip Ql (U)on 02-14-2022 Ketones Ql (U) Negative Negative [facility] Work Phone: [phone] Laboratory - Chemistry and C hemistry - challengeon 02-14-2022 ALP [Catalytic activity/Vol] 132 U/L 45-117 [facility] Work Phone: ALT [Catalytic activity/Vol] 21 U/L 13-56 [facility] Work Phone: [phone] CO2 [Moles/Vol] 27.0 mmol/L 21.0-32.0 [facility] Work Phone: Globulin (S) [Mass/Vol] 4.0 g/dL 2.2-4.2 [facility] Work Phone: Lipase [Catalytic activity/Vol] 38 U/L 73-393 [facility] Work Phone: [phone] Urea nitrogen/Creatinine [Mass ratio] 10.4 mg/mg 10-20 [facility] Work Phone: [phone] Laboratory - Hematology and Cell countson 02-14-2022 Erythrocyte distribution width (RBC) [Entitic vol] 42.4 fL 35.1-43.9 [facility] Work Phone: [phone] Erythrocyte distribution width (RBC) [Ratio] 13.2 % 11.6-14.6 [facility] Work Phone: Immature granulocytes/100 WBC (Bld) 0.600 % 0.0-0.9 [facility] Work Phone: [phone] Comment on above: IG% - Immature Granu locytes (promyelocytes, myelocytes and metamyelocytes) > 1% indicates that a LEFT SHIFT is Present. MCH (RBC) [Entitic mass] 29.1 pg 27.0-32.0 [facility] Work Phone: [phone] Nucleated RBC/100 WBC (Bld) [Ratio] 0 % 0-5 [facility] Work Phone: [phone] MCHC Auto (RBC) [Mass/Vol]on 02-14-2022 MCHC (RBC) [Mass/Vol] 33.0 g/dL 32-36 [facility] Work Phone: [phone] Mucus LM Ql (Urine sed)on Mucus Ql (Urine sed) 0 SEEN /hpf [facility] Work Phone: [phone] Nitrite Test strip Ql (U)on 02-14-2022 Nitrite Ql (U) Negative Negative [facility] Work Phone: [phone] Panel Informationon 02-14 Estimated Creatinine Clearance Calc 45.32 ml/min [facility] Work Phone: [phone] Estimated GFR (MDRD) Amer 76 mL/min >60 [facility] Work Phone: [phone] Comment on above: GFR Calc Estimated GFR (MDRD) Non-Af Amer 63 mL/min >60 [facility] Work Phone: [phone] Comment on above: Non- GFR Calc Platelets bldon 02-14-2022 Platelets (Bld) [#/Vol] 221 10*3/uL 150-450 [facility] Work Phone: [phone] Protein Test strip Ql (U)on 02-14-2022 Protein Ql (U) Negative Negative [facility] Work Phone: [phone] Serum or plasma albumin enedelia urement (mass/volume)on 02-14-2022 Albumin [Mass/Vol] 3.1 g/dL 3.2-5.0 [facility] Work Phone: [phone] Serum or plasma albumin/glob ulin mass ratioon 02-14-2022 Albumin/Globulin [Mass ratio] 0.8 {ratio} 0.9-2.4 [facility] Work Phone: Serum or plasma calcium enedelia urement (mass/volume)on 02-14-2022 Calcium [Mass/Vol] 9.1 mg/dL 8.5-10.1 [facility] Work Phone: Serum or plasma creatinine m easurement (mass/volume)on 02-14-2022 Creatinine [Mass/Vol] 0.96 mg/dL 0.55-1.02 [facility] Work Phone: Comment on above: The validity of the calculated GFR & GFRAA in patients over 70 years has not been determined. Clinical correlation is essential. Serum or plasma urea nitroge n measurement (mass/volume)on 02-14-2022 Urea nitrogen [Mass/Vol] 10 mg/dL 7-18 [facility] Work Phone: Squamous epithelial cells de tection in urine sediment by light microscopyon 02-14-2022 Epithelial cells.squamous LM Ql (Urine sed) 0-5 SEEN /hpf 5-10 [facility] Work Phone: Thin prep Papanicolaou smear with manual screeningon 02-14-2022 Thin prep Papanicolaou smear with manual screening 15 U/L 15-37 [facility] Work Phone: Thin prep Papanicolaou smear with manual screening 4 5-15 [facility] Work Phone: Urine blood detectionon 12- RBC Ql (U) Negative Negative [facility] Work Phone: [phone] RBC Ql (U) 0 SEEN /hpf 0-5 [facility] Work Phone: Urine clarityon 02-14-2022 Clarity (U) Clear Clear [facility] Work Phone: [phone] Urine color determinationon 02-14-2022 Color (U) Yellow Yellow [facility] Work Phone: [phone] Urine glucose detectionon Glucose Ql (U) Normal mg/dl Normal [facility] Work Phone: [phone] Urine leukocyte esterase det ection by dipstickon 02-14-2022 Leukocyte esterase Test strip Ql (U) Negative Negative [facility] Work Phone: Urine pHon 02-14-2022 pH (U) 6.5 [pH] 5.0 - 8.0 [facility] Work Phone: Urine sediment bacteria coun t by microscopy (number/high power field)on 02-14-2022 Bacteria LM.HPF (Urine sed) [#/Area] 0 /[HPF] None Seen [facility] Work Phone: Urine specific gravity measu rementon 02-14-2022 Specific gravity (U) [Rel density] 1.020 1.002-1.030 [facility] Work Phone: Urobilinogen Auto test strip Ql (U)on 02-14-2022 Urobilinogen Ql (U) Normal mg/dl Normal [facility] Work Phone: XR ABDOMEN 2V ROUTINE SUPINE W UPRIGHT/DECUB/CTLon 11-29-2021 [facility] XR Abdomen Supine and Uprigh ton 11-29-2021 IMPRESSION: Nonobstructive bowel gas pattern. Drafter Patent: [id number] Transcribe Date/Time: Nov 29 2021 2:59P Dictated by : DESMOND PÉREZ MD This examination was interpreted and the report reviewed and electronically signed by: DESMOND PÉREZ MD on Nov 29 2021 3:00PM [facility] DIVISION OF RADIOLOGY * * *Final Report* [...] lower lumbar spine. DIVISION OF RADIOLOGY Provider, [facility] Cher Hastings - 11/29/2021 * * *Final Report* [...] spine. IMPRESSION IMPRESSION: Nonobstructive bowel gas pattern. Drafter Patent: [facility] Transcribe Date/Time: Nov 29 2021 2:59P Dictated by : DESMOND PÉREZ MD This examination was interpreted and the report reviewed and electronically signed by: DESMOND PÉREZ MD on Nov 29 2021 3:00PM EST [facility] Radiology Study observation (narrative) [facility] XR Abdomen Supine and Uprigh tOrdered By: [facility] Provider on 11-29-2021 [facility] No Panel Informationon 10-06 [facility] EMERGENCY REPORTon EMERGENCY REPORT [facility] EMERGENCY ROOM REPORT NAME ACCOUNT SEX AGE ADMIT DISCHARGE PT MED. RECORD# NUMBER DATE DATE TYPE YAJAIRA [id number] F 59 07/12/20 07/12/20 3 JENNIFER MCMULLEN [id number] ROOM: ER DATE OF : 1960 DICTATING [...] Mikael Pelletier DO 07/12/20 12:25 JOB #: [id number] Transcribed By: am 07/12/20 18:16 Electronically signed by: JONO Pelletier D.O. 07/19/20 07:16 Page 2 of 2 YAJAIRA MCMULLEN, Emergency Room Report JENNIFER Lubin [facility] CBC + DIFFon 07-12-2020 Baso # 0.00 x10EE3/UL Normal 0.00 - 0.10 [facility] Comment on above: Performed By: #### 2 [id number] #### [facility],[address] [place] [address] Basophils/100 WBC (Bld) 0.7 % Normal 0.0 - 2.0 [facility] Comment on above: Performed By: #### 2 25135 #### [facility],[address] [place] [address] CBC + DIFF Normal [facility] Comment on above: Result Comment: CBC- COMPLETE BLOOD COUNT Performed By: #### 2 71952 #### [place] [address] EO # 0.40 x10EE3/UL Normal 0.00 - 0.50 [facility] Comment on above: Performed By: #### 2 04534 #### [facility],[address] [place] [address] Eosinophils/100 WBC (Bld) 5.1 % Normal 0.0 - 7.0 [facility] Comment on above: Performed By: #### 2 98547 #### [place] [address] Erythrocyte distribution width (RBC) [Ratio] 13.6 % Normal 12.0 - 15.6 [facility] Comment on above: Performed By: #### 2 55239 #### [facility],[address] [place] [address] Hematocrit (Bld) [Volume fraction] 42.2 % Normal 34.0 - 46.0 [facility] Comment on above: Performed By: #### 2 42032 #### [place] [address] Hemoglobin (Bld) [Mass/Vol] 14.5 g/dL Normal 12.0 - 16.0 [facility] Comment on above: Performed By: #### 2 92034 #### [facility],[address] [place] [address] Lymph # 2.20 x10EE3/UL Normal 0.80 - 2.80 [facility] Comment on above: Performed By: #### 2 15747 #### [facility],[address] [place] [address] Lymphocytes/100 WBC (Bld) 29.0 % Normal 20.0 - 45.0 [facility] Comment on above: Performed By: #### 2 34728 #### [facility],[address] [place] [address] MANUAL DIFF N/A Normal [facility] Comment on above: Performed By: #### 2 47921 #### [facility],[address] [place] [address] MCH (RBC) [Entitic mass] 30 pg Normal 27 - 33 [facility] Comment on above: Performed By: #### 2 07863 #### [facility],[address] [place] [address] MCHC 34 X10 3 Normal 32 - 36 [facility] Comment on above: Performed By: #### 2 38218 #### [facility],[address] [place] [address] MCV (RBC) [Entitic vol] 87 fL Normal 80 - 99 [facility] Comment on above: Performed By: #### 2 74364 #### [facility],[address] [place] [address] [place] # 0.60 x10EE3/UL Normal 0.20 - 1.00 [facility] Comment on above: Performed By: #### 2 65944 #### [facility],[address] [place] [address] MONOS % 7.9 % Normal 0.0 - 10.0 [facility] Comment on above: Performed By: #### 2 41942 #### [facility],[address] [place] [address] Morphology Torres (Bld) [Interp] N/A Normal [facility] Comment on above: Result Comment: {CD] Performed By: #### 2 24762 #### [facility],[address] [place], [place] [address] Neut # 4.30 x10EE3/UL Normal 1.50 - 7.10 [facility] Comment on above: Performed By: #### 2 70815 #### [facility],[address] [place] [address] Neutrophils/100 WBC (Bld) 57.3 % Normal 46.0 - 76.0 [facility] Comment on above: Performed By: #### 2 41358 #### [facility],[address] [place] [address] PLATELET 219 x10EE3/UL Normal 150 - 450 [facility] Comment on above: Performed By: #### 2 86099 #### [facility],[address] [place] [address] Platelet mean volume (Bld) [Entitic vol] 9.4 fL Normal 6.6 - 10.5 [facility] Comment on above: Result Comment: AUTO MATED DIFFERENTIAL Performed By: #### 2 87022 #### [facility],[address] [place], [place] [address] RBC 4.86 x 10EE6/UL Normal 4.10 - 5.30 [facility] Comment on above: Performed By: #### 2 53604 #### [facility],[address] [place], [place] [address] WBC 7.5 x 10EE3/UL Normal 4.5 - 10.8 [facility] Comment on above: Performed By: #### 2 91149 #### [facility],[address] [place], [place] [address] CMP with eGFRon 07-12-2020 AGE 59 years Normal [facility] Comment on above: Performed By: #### 2 31049 #### [facility],[address] [place] [address] 70501 Albumin [Mass/Vol] 3.2 g/dL Low 3.4 - 5.0 [facility] Comment on above: Performed By: #### 2 40021 #### [facility],[address] [place] [address] 12018 Albumin/Globulin [Mass ratio] 0.8 {ratio} Low 0.9 - 1.6 [facility] Comment on above: Performed By: #### 2 26286 #### [facility],[address] [place] [address] 59746 ALK PHOS 148 U/L High 46 - 116 [facility] Comment on above: Performed By: #### 2 12888 #### [facility],[address] [place] [address] 60031 ALT [Catalytic activity/Vol] 29 U/L Normal 14 - 59 [facility] Comment on above: Performed By: #### 2 88287 #### [facility],[address] [place] [address] 39824 Anion gap [Moles/Vol] 15 mmol/L Normal 10 - 20 [facility] Comment on above: Performed By: #### 2 43811 #### [facility],[address] [place] [address] 53383 AST [Catalytic activity/Vol] 16 U/L Normal 13 - 39 [facility] Comment on above: Performed By: #### 2 43579 #### [facility],[address] [place] [address] 68468 B/C RATIO 11 ratio Normal 0 - 30 [facility] Comment on above: Performed By: #### 2 07377 #### [facility],[address] [place] [address] 16108 Bilirubin [Mass/Vol] 0.4 mg/dL Normal 0.2 - 1.0 [facility] Comment on above: Performed By: #### 2 46637 #### [facility],[address] [place] [address] 28726 Calcium [Mass/Vol] 8.8 mg/dL Normal 8.5 - 10.1 [facility] Comment on above: Performed By: #### 2 46449 #### [facility],[address] [place] [address] 07538 Chloride [Moles/Vol] 104 mmol/L Normal 98 - 107 [facility] Comment on above: Performed By: #### 2 24031 #### [facility],[address] [place] [address] 39380 CMP with eGFR Normal [facility] Comment on above: Result Comment: COMP REHENSIVE METABOLIC PANEL Performed By: #### 2 41264 #### [facility],[address] [place] [address] 61212 CO2 [Moles/Vol] 24.6 mmol/L Normal 21.0 - 32.0 [facility] Comment on above: Performed By: #### 2 52230 #### [facility],[address] [place] [address] 96987 Creatinine [Mass/Vol] 0.9 mg/dL Normal 0.5 - 1.0 [facility] Comment on above: Performed By: #### 2 92070 #### [facility],[address] [place] [address] 41432 GFR/1.73 sq M.predicted among non-blacks MDRD (S/P/Bld) [Vol rate/Area] mL/min/{1.73_m2} Normal 60 - 999 [facility] Comment on above: Performed By: #### 2 82652 #### [facility],[address] [place] [address] 61305 Result Comment: ACCO RDING TO THE NATIONAL KIDNEY DISEASE EDUCATION PROGRAM(NKDE), A NORMAL eGFR IS A VALUE GREATER THAN OR EQUAL TO 60 ML/MIN/1.73 SQ METERS. CHRONIC KIDNEY DISEASE: <60mL/MIN/1.73 SQ METERS KIDNEY FAILURE: <15mL/MIN/1.73 SQ METERS THIS TEST SHOULD ONLY BE USED FOR PATIENTS 18 YEARS OF AGE AND OLDER. Globulin (S) [Mass/Vol] 4.1 g/dL High 1.5 - 3.8 [facility] Comment on above: Performed By: #### 2 83433 #### [facility],[address] [place] [address] 91362 Glucose [Mass/Vol] 168 mg/dL High 74 - 106 [facility] Comment on above: Performed By: #### 2 09522 #### [facility],[address] [place] [address] 87273 Potassium [Moles/Vol] 3.5 mmol/L Normal 3.5 - 5.1 [facility] Comment on above: Performed By: #### 2 33238 #### [facility],[address] [place] [address] 35825 Protein [Mass/Vol] 7.3 g/dL Normal 6.4 - 8.2 [facility] Comment on above: Performed By: #### 2 67634 #### [facility],[address] [place] [address] 98453 Sodium [Moles/Vol] 140 mmol/L Normal 136 - 145 [facility] Comment on above: Performed By: #### 2 07823 #### [facility],[address] [place] [address] 99872 Urea nitrogen [Mass/Vol] 10 mg/dL Normal 7 - 18 [facility] Comment on above: Performed By: #### 2 27645 #### [facility],[address] [place] [address] CHEST (PE PROTOCOL)on CT CHEST (PE PROTOCOL) [place] [address] Patient: JENNIFER RIVAS Phone#: : 1960 Age: 59 Gender: F Pt. Type: ER Account: [id number] Location: 052 Ordering: [facility] Exam Date: 07/12/2020/11:09 Family Phys: Charge Code: [id number] Physician: Morrill Order #: [id number] DLP Dose#: PROCEDURE: CT CHEST WITH CONTRAST FOR PE COMPARISON: [facility], CT, CHEST PE W CON, 10/06/2018, [...] There is no evidence of pulmonary embolus. [place] [address] Patient: JENNIFER RIVAS Phone#: : 1960 Age: 59 Gender: F Pt. Type: ER Account: [id number] Location: 052 Ordering: [facility] Exam Date: 07/12/2020/11:09 Family Phys: Charge Code: [id number] Physician: Morrill Order #: [id number] DLP Dose#: Dictated by: Sheryl Sorensen MD on 07/12/2020 at 19:13 Approved by: Sheryl Sorensen MD on 07/12/2020 at 19:15 Normal [facility] RIBS LT UNILAT W/CHEST EXPIR ATIONon 07-12-2020 RIBS LT UNILAT W/CHEST EXPIRATION [address] [address] Patient: JENNIFER RIVAS Phone#: : 1960 Age: 59 Gender: F Pt. Type: ER Account: [id number] Location: 052 Ordering: MIKAEL PELLETIER Exam Date: 07/12/2020/9:58 Family Phys: Charge Code: [id number] Physician: Morrill Order #: [id number] DLP Dose#: PROCEDURE: X-RAY RIBS LT UNILAT [...] Sorensen MD on 07/12/2020 at 18:27 Normal [facility] TROPONIN I, HIGH SENSITIVITY on 07-12-2020 HS TROPONIN 6.1 pg/mL Normal 0.0 - 51.4 [facility] Comment on above: Performed By: #### 2 48963 #### [facility],[address] [place] [address] 02074 XR KNEE LEFT (3 VIEWS)on XR KNEE [...] Imtiaz Aceves MD 06/26/18 Final result Normal [facility] XR ABDOMEN (KUB) (SINGLE AP VIEW)on 04-25-2018 [...] Juan Aguayo MD 04/25/18 Final result Normal [facility] XR KNEE LEFT (3 VIEWS)on XR KNEE LEFT (3 VIEWS) EXAMINATION: XR K NEE LEFT (3 VIEWS) CLINICAL HISTORY: Jennifer Gates?is a 57 y.o.?female?who presents to the Emergency Department with L posterior knee pain after missing a step and landing on her L side [employer]. ?She denies any other injury. ?She is [...] Faiza Abrams MD 02/22/18 Final result Normal [facility] CBC With Platelet and Differ entialon 01-30-2018 Basophils Auto #/vol (Bld) 0.0 10*3/uL Normal 0.0-0.2 [facility] Basophils/100 WBC Auto (Bld) 0.6 % Normal [facility] Eosinophils Auto #/vol (Bld) 0.2 10*3/uL Normal 0.0-0.7 [facility] Eosinophils/100 WBC Auto (Bld) 2.5 % Normal [facility] Erythrocyte distribution width Auto Ratio (RBC) 14.6 % Critically high 11.5-14.5 [facility] Hematocrit Auto Volume Fraction (Bld) 41.3 % Normal 37.0-47.0 [facility] Hemoglobin mass conc (Bld) 14.1 g/dL Normal 12.0-16.0 [facility] Lymphocytes Auto #/vol (Bld) 2.5 10*3/uL Normal 1.0-4.8 [facility] Lymphocytes/100 WBC Auto (Bld) 31.6 % Normal [facility] MCH Auto Entitic mass (RBC) 30.4 pg Normal 27.0-31.3 [facility] MCHC Auto mass conc (RBC) 34.1 % Normal 33.0-37.0 [facility] MCV Auto Entitic volume (RBC) 89.1 fL Normal 82.0-100.0 [facility] Monocytes Auto #/vol (Bld) 0.4 10*3/uL Normal 0.2-0.8 [facility] Monocytes/100 WBC Auto (Bld) 5.3 % Normal [facility] Neutrophils Auto #/vol (Bld) 4.8 10*3/uL Normal 1.4-6.5 [facility] Neutrophils/100 WBC Auto (Bld) 60.0 % Normal [facility] Platelets Auto #/vol (Bld) 211 10*3/uL Normal 130-400 [facility] RBC Auto #/vol (Bld) 4.64 10*6/uL Normal 4.20-5.40 [facility] WBC Auto #/vol (Bld) 7.9 10*3/uL Normal 4.8-10.8 [facility] Comprehensive Metabolic Pane tina 01-30-2018 Albumin mass conc 3.9 g/dL Normal 3.9-4.9 [facility] ALP enzyme act/vol 137 U/L Critically high 40-[address] [facility] ALT enzyme act/vol 15 U/L Normal 0-33 [facility] Comment on above: Result Comment: Spec imen hemolysis has exceeded the interference as definedby [place]. Result may be affected. Suggest recollection ifclinically indicated. Anion gap 3 molar conc 16 mmol/L Critically high 7-13 [facility] AST enzyme act/vol 18 U/L Normal 0-35 [facility] Comment on above: Result Comment: Spec imen hemolysis has exceeded the interference as definedby [facility]. Value may be falsely increased. Suggestrecollection if clinically indicated. Bilirubin mass conc mg/dL Normal 0.0-1.2 [facility] Calcium mass conc 9.5 mg/dL Normal 8.6-10.2 [facility] Chloride molar conc 106 mmol/L Normal 98-107 [facility] CO2 molar conc 19 mmol/L Low 22-29 [facility] Creatinine mass conc 0.87 mg/dL Normal 0.50-0.90 [facility] GFR/1.73 sq M predicted among blacks MDRD vol rate/area (S/P/Bld) mL/min/{1.73_m2} Normal >60 [facility] Comment on above: Result Comment: >60 mL/min/1.73m2 EGFR, calc. for ages 18 and older using theMDRD formula (not corrected for weight), is valid for stablerenal function. GFR/1.73 sq M.predicted MDRD vol rate/area mL/min/{1.73_m2} Normal >60 [facility] Comment on above: Result Comment: >60 mL/min/1.73m2 EGFR, calc. for ages 18 and older using theMDRD formula (not corrected for weight), is valid for stablerenal function. Globulin Calculated mass conc (S) 3.5 g/dL Normal 2.3-3.5 [facility] Glucose mass conc 177 mg/dL Critically high 74-109 [facility] Potassium molar conc 4.0 mmol/L Normal 3.5-5.1 [facility] Comment on above: Result Comment: Spec imen hemolysis has exceeded the interference as definedby Prince. Value may be falsely increased. Suggestrecollection if clinically indicated. Protein mass conc 7.4 g/dL Normal 6.4-8.1 [facility] Sodium molar conc 141 mmol/L Normal 132-144 [facility] Urea nitrogen mass conc 15 mg/dL Normal 6-[address] [facility] Urinalysis, reflex to micros copicon 01-30-2018 Bilirubin Ql (U) Negative Normal Negative [facility] Color Nom (U) Yellow Normal Straw/Caldwell [facility] Glucose Ql (U) Negative Normal Negative [facility] Hemoglobin Test strip Ql (U) Negative Normal Negative [facility] Ketones Ql (U) Negative Normal Negative [facility] Leukocyte esterase Test strip Ql (U) Negative Normal Negative [facility] Nitrite Test strip Ql (U) Negative Normal Negative [facility] pH Test strip (U) 5.0 [pH] Normal 5.0-9.0 [facility] Protein Test strip Ql (U) Negative Normal Negative [facility] Specific gravity Relative Density (U) 1.025 Normal 1.005-1.03 [facility] Urobilinogen Test strip Qn (U) 0.2 {Kieran'U}/dL Normal < 2.0 [facility] Clarity Nom (U) Clear Normal Clear [facility] XR ACUTE ABD SERIES CHEST 1 VWon [...] Hola Alexandra MD 01/30/18 Final result Normal [facility] Surgical Specimenon 01-11-20 Surgical Specimen Invalid Interpretation Code [facility] Comment on above: Result Comment: [place] [id number] [phone] SURGICAL PATHOLOGY REPORTPatient Name: JENNIFER GATES Accession No: [id number] Age Sex: 1960 Location: [facility] No: [id number] Collected: 01/10/2018[facility] Rec No: [id number] Received: 01/11/2018Attend Phys: FELIPA SHORT Completed: 01/12/2018Perform [...] in greatest dimension. Filtered, in toto, onecassette. OTTO/TAMMYT: [id number] HOUSE M.D. 01/12/2018 Electronically signed out by Page 1 of 1 CBC With Platelet and Differ entialon 12-19-2017 Basophils #/vol (Bld) 0.1 10*3/uL Normal 0.0-0.2 [facility] Basophils/100 WBC (Bld) 0.6 % Normal [facility] Eosinophils #/vol (Bld) 0.1 10*3/uL Normal 0.0-0.7 [facility] Eosinophils/100 WBC (Bld) 1.4 % Normal [facility] Erythrocyte distribution width Ratio (RBC) 13.8 % Normal 11.5-14.5 [facility] Hematocrit Volume Fraction (Bld) 40.1 % Normal 37.0-47.0 [facility] Hemoglobin mass conc (Bld) 13.4 g/dL Normal 12.0-16.0 [facility] Lymphocytes #/vol (Bld) 2.7 10*3/uL Normal 1.0-4.8 [facility] Lymphocytes/100 WBC (Bld) 29.4 % Normal [facility] MCH Entitic mass (RBC) 29.8 pg Normal 27.0-31.3 [facility] mass conc (RBC) 33.5 % Normal 33.0-37.0 [facility] MCV Entitic volume (RBC) 89.1 fL Normal 82.0-100.0 [facility] Monocytes #/vol (Bld) 0.6 10*3/uL Normal 0.2-0.8 [facility] Monocytes/100 WBC (Bld) 6.6 % Normal [facility] Neutrophils #/vol (Bld) 5.7 10*3/uL Normal 1.4-6.5 [facility] Neutrophils/100 WBC (Bld) 62.0 % Normal [facility] Platelets #/vol (Bld) 214 10*3/uL Normal 130-400 [facility] RBC #/vol (Bld) 4.50 10*6/uL Normal 4.20-5.40 [facility] WBC #/vol (Bld) 9.3 10*3/uL Normal 4.8-10.8 [facility] CT ABDOMEN PELVIS WO CONTRAS Ton 12-19-2017 [...] Juan Aguayo MD 12/19/17 Final result Normal [facility] Comprehensive Metabolic Pane tina 12-19-2017 Albumin mass conc 4.0 g/dL Normal 3.9-4.9 [facility] ALP enzyme act/vol 129 U/L Normal 40-130 [facility] Comment on above: Result Comment: Spec imen hemolysis has exceeded the interference as defined by Prince. Value may be falsely decreased. Suggest recollection if clinically indicated. ALT enzyme act/vol 18 U/L Normal 0-33 [facility] Comment on above: Result Comment: Spec imen hemolysis has exceeded the interference as defined by Prince. Result may be affected. Suggest recollection if clinically indicated. Anion gap molar conc 13 mmol/L Normal 7-13 [facility] AST enzyme act/vol 25 U/L Normal 0-35 [facility] Comment on above: Result Comment: Spec imen hemolysis has exceeded the interference as defined by Prince. Value may be falsely increased. Suggest recollection if clinically indicated. Bilirubin mass conc mg/dL Normal 0.0-1.2 [facility] Calcium mass conc 9.1 mg/dL Normal 8.6-10.2 [facility] Chloride molar conc 108 mmol/L Critically high 98-107 [facility] CO2 molar conc 20 mmol/L Low 22-29 [facility] Creatinine mass conc 0.81 mg/dL Normal 0.50-0.90 [facility] GFR/1.73 sq M predicted among blacks MDRD vol rate/area (S/P/Bld) mL/min/{1.73_m2} Normal >60 [facility] Comment on above: Result Comment: >60 mL/min/1.73m2 EGFR, calc. for ages 18 and older using the MDRD formula (not corrected for weight), is valid for stable renal function. GFR/1.73 sq M.predicted MDRD vol rate/area mL/min/{1.73_m2} Normal >60 [facility] Comment on above: Result Comment: >60 mL/min/1.73m2 EGFR, calc. for ages 18 and older using the MDRD formula (not corrected for weight), is valid for stable renal function. Globulin mass conc (S) 3.6 g/dL Critically high 2.3-3.5 [facility] Glucose mass conc 80 mg/dL Normal 74-109 [facility] Potassium molar conc 4.4 mmol/L Normal 3.5-5.1 [facility] Comment on above: Result Comment: Spec imen hemolysis has exceeded the interference as defined by Prince. Value may be falsely increased. Suggest recollection if clinically indicated. Protein mass conc 7.6 g/dL Normal 6.4-8.1 [facility] Sodium molar conc 141 mmol/L Normal 132-144 [facility] Urea nitrogen mass conc 12 mg/dL Normal 6-[address] [facility] Rejection Notificationon Rejected Test CBCWD Normal [facility] Urinalysis, reflex to micros copicon 12-19-2017 Bilirubin Ql (U) Negative Normal Negative [facility] Color Nom (U) Yellow Normal Straw/Caldwell [facility] Glucose Ql (U) Negative Normal Negative [facility] Hemoglobin Ql (U) Negative Normal Negative [facility] Ketones Ql (U) Negative Normal Negative [facility] Leukocyte esterase Test strip Ql (U) Negative Normal Negative [facility] Nitrite Ql (U) Negative Normal Negative [facility] pH (U) 6.5 [pH] Normal 5.0-9.0 [facility] Protein Ql (U) Negative Normal Negative [facility] Specific gravity Relative Density (U) 1.022 Normal 1.005-1.03 [facility] Urobilinogen Qn (U) 0.2 {Kieran'U}/dL Normal < 2.0 [facility] Clarity Nom (U) Clear Normal Clear [facility] CALVIN DIGITAL SCREEN W OR WO C [...] IS VERY IMPORTANT TO YOUR HEALTH. THE [place] [employer] GUIDELINES RECOMMEND THAT WOMEN 40 YEARS OF AGE AND OLDER SHOULD HAVE A MAMMOGRAM EVERY YEAR. A REMINDER LETTER WILL BE SENT AT THE APPROPRIATE TIME. Interpreted by: Negrita Aldridge MD Signed by: Negrita Aldridge MD 11/21/17 Final result Normal [facility] MRI BRAIN W WO CONTRASTon MRI BRAIN [...] Negrita Aldridge MD 09/14/17 Final result Normal [facility] CBC With Platelet and Differ entialon 09-09-2017 Basophils #/vol (Bld) 0.1 10*3/uL Normal 0.0-0.2 [facility] Basophils/100 WBC (Bld) 0.6 % Normal [facility] Eosinophils #/vol (Bld) 0.2 10*3/uL Normal 0.0-0.7 [facility] Eosinophils/100 WBC (Bld) 2.1 % Normal [facility] Erythrocyte distribution width Ratio (RBC) 14.3 % Normal 11.5-14.5 [facility] Hematocrit Volume Fraction (Bld) 42.0 % Normal 37.0-47.0 [facility] Hemoglobin mass conc (Bld) 14.4 g/dL Normal 12.0-16.0 [facility] Lymphocytes #/vol (Bld) 3.5 10*3/uL Normal 1.0-4.8 [facility] Lymphocytes/100 WBC (Bld) 34.2 % Normal [facility] MCH Entitic mass (RBC) 30.2 pg Normal 27.0-31.3 [facility] MCHC mass conc (RBC) 34.1 % Normal 33.0-37.0 [facility] MCV Entitic volume (RBC) 88.5 fL Normal 82.0-100.0 [facility] Monocytes #/vol (Bld) 0.7 10*3/uL Normal 0.2-0.8 [facility] Monocytes/100 WBC (Bld) 7.3 % Normal [facility] Neutrophils #/vol (Bld) 5.7 10*3/uL Normal 1.4-6.5 [facility] Neutrophils/100 WBC (Bld) 55.8 % Normal [facility] Platelets #/vol (Bld) 226 10*3/uL Normal 130-400 [facility] RBC #/vol (Bld) 4.75 10*6/uL Normal 4.20-5.40 [facility] WBC #/vol (Bld) 10.3 10*3/uL Normal 4.8-10.8 [facility] CT HEAD WO CONTRASTon 2017 CT HEAD [...] Imtiaz Aceves MD 09/09/17 Final result Normal [facility] Comprehensive Metabolic Pane tina 09-09-2017 Albumin mass conc 4.0 g/dL Normal 3.9-4.9 [facility] ALP enzyme act/vol 128 U/L Normal 40-130 [facility] Comment on above: Result Comment: Spec imen hemolysis has exceeded the interference as defined by Prince. Value may be falsely decreased. Suggest recollection if clinically indicated. ALT enzyme act/vol 21 U/L Normal 0-33 [facility] Comment on above: Result Comment: Spec imen hemolysis has exceeded the interference as defined by Prince. Result may be affected. Suggest recollection if clinically indicated. Anion gap molar conc 17 mmol/L Critically high 7-13 [facility] AST enzyme act/vol 30 U/L Normal 0-35 [facility] Comment on above: Result Comment: Spec imen hemolysis has exceeded the interference as defined by Prince. Value may be falsely increased. Suggest recollection if clinically indicated. Bilirubin mass conc 0.6 mg/dL Normal 0.0-1.2 [facility] Calcium mass conc 8.8 mg/dL Normal 8.6-10.2 [facility] Chloride molar conc 101 mmol/L Normal 98-107 [facility] CO2 molar conc 22 mmol/L Normal 22-29 [facility] Creatinine mass conc 0.81 mg/dL Normal 0.50-0.90 [facility] GFR/1.73 sq M predicted among blacks MDRD vol rate/area (S/P/Bld) mL/min/{1.73_m2} Normal >60 [facility] Comment on above: Result Comment: >60 mL/min/1.73m2 EGFR, calc. for ages 18 and older using the MDRD formula (not corrected for weight), is valid for stable renal function. GFR/1.73 sq M.predicted MDRD vol rate/area mL/min/{1.73_m2} Normal >60 [facility] Comment on above: Result Comment: >60 mL/min/1.73m2 EGFR, calc. for ages 18 and older using the MDRD formula (not corrected for weight), is valid for stable renal function. Globulin mass conc (S) 3.4 g/dL Normal 2.3-3.5 [facility] Glucose mass conc 172 mg/dL Critically high 74-109 [facility] Potassium molar conc 4.1 mmol/L Normal 3.5-5.1 [facility] Comment on above: Result Comment: Spec imen hemolysis has exceeded the interference as defined by Rpince. Value may be falsely increased. Suggest recollection if clinically indicated. Protein mass conc 7.4 g/dL Normal 6.4-8.1 [facility] Sodium molar conc 140 mmol/L Normal 132-144 [facility] Urea nitrogen mass conc 9 mg/dL Normal 6-[address] [facility] Magnesiumon 09-09-2017 Magnesium mass conc 2.1 mg/dL Normal 1.7-2.3 [facility] Troponinon 09-09-2017 Troponin I.cardiac mass conc ng/mL Normal 0.000-0.01 [facility] Comment on above: Result Comment: Meth odology by Troponin T. Urinalysis, reflex to micros copicon 07-18-2017 Bilirubin Ql (U) Negative Normal Negative [facility] Clarity Nom (U) Clear Normal Clear [facility] Color Nom (U) Yellow Normal Straw/Caldwell [facility] Glucose Ql (U) Negative Normal Negative [facility] Hemoglobin Ql (U) Negative Normal Negative [facility] Ketones Ql (U) Negative Normal Negative [facility] Leukocyte esterase Test strip Ql (U) Negative Normal Negative [facility] Nitrite Ql (U) Negative Normal Negative [facility] pH (U) 6.5 [pH] Normal 5.0-9.0 [facility] Protein Ql (U) Negative Normal Negative [facility] Specific gravity Relative Density (U) 1.020 Normal 1.005-1.03 [facility] Urobilinogen Qn (U) 0.2 {Kieran'U}/dL Normal < 2.0 [facility] XR LUMBAR SPINE (MIN 4 VIEWS )on [...] Juan Aguayo MD 07/18/17 Final result Normal [facility] VITAMIN Don 10-14-2016 VITAMIN D 25.3 ng/mL Low 30.0-100.0 [facility] Comment on above: Order Comment: adive d pt we only do H pylori for breathe or fecal. Gave her info AND shesaid she will advised the dr 10/10/2016 11:36 Result Comment: (20- 30 ng/mL) InsufficiencyThis assay accurately quantifies the sum of vitamin D3, 25-Hydroxy andvitamin D2, 25-Hyroxy. Thyroxine Freeon 10-11-2016 Thyroxine Free 0.89 ng/dL Low 0.93-1.70 [facility] Comment on above: Order Comment: adive d pt we only do H pylori for breathe or fecal. Gave her info AND shesaid she will advised the 10/10/2016 11:36 TSH w/out Reflexon 7 Thyroid stimulating hormone (TSH) 2.590 uIU/mL Normal 0.270-4.20 [facility] Comment on above: Order Comment: adive d pt we only do H pylori for breathe or fecal. Gave her info AND shesaid she will advised the dr 10/10/2016 11:36 Uric Acidon 10-10-2016 Urate 5.1 mg/dL Normal 2.4-5.7 [facility] Comment on above: Order Comment: adive d pt we only do H pylori for breathe or fecal. Gave her info AND shesaid she will advised the dr 10/10/2016 11:36 Vitamin B12 and Folateon Cobalamins (Vitamin B12) 224 pg/mL Normal 211-946 [facility] Comment on above: Order Comment: adive d pt we only do H pylori for breathe or fecal. Gave her info AND shesaid she will advised the 10/10/2016 11:36 Folate 11.6 ng/mL Normal 7.3-26.1 [facility] Comment on above: Order Comment: adive d pt we only do H pylori for breathe or fecal. Gave her info AND shesaid she will advised the 10/10/2016 11:36 Result Comment: As o f 15, the methodology has changed. Results fromthis methodology should not be compared with results fromprevious methodology. Vital Signs Date Time Vital Sign Value Performing Clinician Faci lity 10-30-2024 11:11-0400 Body height 152.5 cm Saskia Click FULLERETTE[employer]ETL TESTER Work Phone: [facility] 10-30-2024 11:11-0400 Body mass index (BMI) [Ratio] 41.35 kg/m2 Saskia Click [employer] Work Phone: [facility] 10-30-2024 11:11-0400 Body weight 96.16 kg Saskia Click [employer] TE[employer] Work Phone: [facility] 10-30-2024 11:11-0400 Diastolic blood pressure 74 mm[Hg] Saskia Click [employer] TE[employer] Work Phone: [facility] 10-30-2024 11:11-0400 Heart rate 74 /min Saskia Click [employer] Work Phone: [facility] 10-30-2024 11:11-0400 Respiratory rate 16 /min Saskia Click [employer] Work Phone: [facility] 10-30-2024 11:11-0400 SaO2% (BldA) [Mass fraction] 97 % Saskia Click [employer] Work Phone: [facility] 10-30-2024 11:11-0400 Systolic blood pressure 114 mm[Hg] Saskia Click [employer]ER[employer]TE[employer] TESTER Work Phone: [facility] 10-30-2024 10:17-0400 Body height 152.5 cm Pulm Wstr Work Phone: [facility] 08-20-2025 10:17-0400 Body mass index (BMI) [Ratio] 41.35 kg/m2 Pulm Wstr Work Phone: [facility] 10-30-2024 10:17-0400 Body weight 96.16 kg Pulm Wstr Work Phone: [facility] 10-30-2024 10:17-0400 Heart rate 74 /min Pulm Wstr Work Phone: [facility] 10-30-2024 10:17-0400 Respiratory rate 16 /min Pulm Wstr Work Phone: [facility] 10-30-2024 10:17-0400 SaO2% (BldA) [Mass fraction] 97 % Pulm Wstr Work Phone: [facility] 09-02-2024 16:30-0400 Body mass index (BMI) [Ratio] 40.64 kg/m2 Leonid Rice MD Work Phone: [facility] 09-02-2024 16:30-0400 Body temperature 98.01 [degF] Leonid Rice MD Work Phone: [facility] 09-02-2024 16:30-0400 Body weight 94.4 kg Leonid Rice MD Work Phone: [facility] 09-02-2024 16:30-0400 Diastolic blood pressure 70 mm[Hg] Leonid Rice MD Work Phone: [facility] 09-02-2024 16:30-0400 Heart rate 80 /min Leonid Rice MD Work Phone: [facility] 09-02-2024 16:30-0400 Systolic blood pressure 108 mm[Hg] Leonid Rice MD Work Phone: [facility] 08-30-2024 13:45-0400 Body mass index (BMI) [Ratio] 40.77 kg/m2 Leonid Rice MD Work Phone: [facility] 08-30-2024 13:45-0400 Body weight 94.7 kg Leonid Rice MD Work Phone: [facility] 08-30-2024 13:45-0400 Diastolic blood pressure 70 mm[Hg] Leonid Rice MD Work Phone: [facility] 08-30-2024 13:45-0400 Heart rate 83 /min Leonid Rice MD Work Phone: [facility] 08-30-2024 13:45-0400 SaO2% (BldA) [Mass fraction] 95 % Leonid Rice MD Work Phone: [facility] 08-30-2024 13:45-0400 Systolic blood pressure 124 mm[Hg] Leonid Rice MD Work Phone: [facility] 08-29-2024 13:24-0400 Body height 152.4 cm Kadie Hampton MD Work Phone: [facility] 08-29-2024 13:24-0400 Body mass index (BMI) [Ratio] 41.01 kg/m2 Kadie Hampton MD Work Phone: [facility] 08-29-2024 13:24-0400 Body weight 95.25 kg Kadie Hampton MD Work Phone: [facility] 08-29-2024 13:24-0400 Diastolic blood pressure 76 mm[Hg] Kadie Hampton MD Work Phone: [facility] 08-29-2024 13:24-0400 Heart rate 81 /min Kadie Hampton MD Work Phone: [facility] 08-29-2024 13:24-0400 SaO2% (BldA) [Mass fraction] 65 % Kadie Hampton MD Work Phone: [facility] 08-29-2024 13:24-0400 Systolic blood pressure 115 mm[Hg] Kadie Hampton MD Work Phone: [facility] 08-29-2024 03:48-0400 Body temperature 98.3 [degF] Dr. Lenoid Rice MD Work Phone: 1(022)547-230709 [place] [address] 08-29-2024 03:48-0400 Diastolic blood pressure 84 mm[Hg] Dr. Leonid Rice MD Work Phone: 0(569)400-800909 [place] [address] 08-29-2024 03:48-0400 Heart rate 83 /min Dr. Leonid Rice MD Work Phone: 3(297)488-092409 [place] [address] 08-29-2024 03:48-0400 Respiratory rate 24 /min Dr. Leonid Rice MD Work Phone: 6(921)733-821109 [place] [address] 08-29-2024 03:48-0400 SaO2% (BldA) [Mass fraction] 94 % Dr. Leonid Rice MD Work Phone: 9(495)579-140109 [place] [address] 08-29-2024 03:48-0400 Systolic blood pressure 139 mm[Hg] Dr. Leonid Rice MD Work Phone: 1(633)149-439709 [place] [address] 08-29-2024 01:10-0400 Body height 152.[address] Leonid Rice MD Work Phone: 3(034)529-283409 [place] [address] 08-29-2024 01:10-0400 Body mass index (BMI) [Ratio] 41.5 kg/m2 Dr. Leonid Rice MD Work Phone: 9(922)098-230109 [place] [address] 08-29-2024 01:10-0400 Body weight 96.[address] Leonid Rice MD Work Phone: 4(677)915-413009 [place] [address] 08-28-2024 14:23-0400 Heart rate 84 /min Dr. Leonid Rice MD Work Phone: 7(275)218-615009 [place] [address] 08-28-2024 14:23-0400 Respiratory rate 22 /min Dr. Leonid Rice MD Work Phone: 0(755)028-160509 [place] [address] 08-28-2024 12:46-0400 Body temperature 98 [degF] Dr. Leonid Rice MD Work Phone: 1(013)578-614409 [place] [address] 08-28-2024 12:46-0400 Diastolic blood pressure 77 mm[Hg] Dr. Leonid Rice MD Work Phone: 4(018)[phone] [place] [address] 08-28-2024 12:46-0400 SaO2% (BldA) [Mass fraction] 91 % Dr. Leonid Rice MD Work Phone: 6(907)884-742309 [place] [address] 08-28-2024 12:46-0400 Systolic blood pressure 127 mm[Hg] Dr. Leonid Rice MD Work Phone: 3(128)991-666709 [place] [address] 08-28-2024 03:54-0400 Body mass index (BMI) [Ratio] 40.6 kg/m2 Dr. Leonid Rice MD Work Phone: 4(712)089-868909 [place] [address] 08-28-2024 03:54-0400 Body weight 93.[address] Leonid Rice MD Work Phone: 3(669)038-735909 [place] [address] 08-26-2024 14:04-0400 Inhaled oxygen flow rate 1 L/min Dr. Leonid Rice MD Work Phone: 9(286)783-159909 [place] [address] 08-25-2024 21:53-0400 Body height 152.[address] Leonid Rice MD Work Phone: 4(487)887-059909 [place] [address] 08-25-2024 21:00-0400 Diastolic blood pressure 80 mm[Hg] Dr. Leonid Rice MD Work Phone: 8(695)910-001709 [place] [address] 08-25-2024 21:00-0400 Heart rate 103 /min Dr. Leonid Rice MD Work Phone: 3(254)844-527209 [place] [address] 08-25-2024 21:00-0400 Respiratory rate 32 /min Dr. Leonid Rice MD Work Phone: [phone] [place] [address] 08-25-2024 21:00-0400 SaO2% (BldA) [Mass fraction] 96 % Dr. Leonid Rice MD Work Phone: [phone] [place] [address] 08-25-2024 21:00-0400 Systolic blood pressure 136 mm[Hg] Dr. Leonid Rice MD Work Phone: [phone] [place] [address] 08-25-2024 20:29-0400 Body temperature 99.3 [degF] Dr. Leonid Rice MD Work Phone: [facility] 08-25-2024 15:37-0400 Body height 152.[address] Leonid Rice MD Work Phone: [facility] 08-25-2024 15:37-0400 Body mass index (BMI) [Ratio] 41.1 kg/m2 Dr. Leonid Rice MD Work Phone: [facility] 08-25-2024 15:37-0400 Body weight 95.[address] Leonid Rice MD Work Phone: [facility] 01-18-2024 09:48-0500 Diastolic blood pressure 57 mm[Hg] Zachery Toussaint MD Work Phone: [facility] 01-18-2024 09:48-0500 Heart rate 71 /min Zachery Toussaint MD Work Phone: [facility] 01-18-2024 09:48-0500 Respiratory rate 16 /min Zachery Toussaint MD Work Phone: [facility] 01-18-2024 09:48-0500 SaO2% (BldA) [Mass fraction] 97 % Zachery Toussaint MD Work Phone: [facility] 01-18-2024 09:48-0500 Systolic blood pressure 108 mm[Hg] Zachery Toussaint MD Work Phone: [facility] 01-18-2024 08:43-0500 Body mass index (BMI) [Ratio] 42.37 kg/m2 Zachery Toussaint MD Work Phone: [facility] 01-18-2024 08:43-0500 Body temperature 97.5 [degF] Zachery Toussaint MD Work Phone: [facility] 01-18-2024 08:43-0500 Body weight 98.4 kg Zachery Toussaint MD Work Phone: [facility] 01-16-2024 13:00-0500 Diastolic blood pressure 75 mm[Hg] Ruby Golias PT Work Phone: [facility] 01-16-2024 13:00-0500 Heart rate 77 /min Ruby Golias PT Work Phone: [facility] 01-16-2024 13:00-0500 Systolic blood pressure 123 mm[Hg] Ruby Golias PT Work Phone: [facility] 01-08-2024 14:44-0400 Body height 152.4 cm Zachery Toussaint MD Work Phone: [facility] 01-08-2024 14:44-0400 Body mass index (BMI) [Ratio] 42.38 kg/m2 Zachery Toussaint MD Work Phone: [facility] 01-08-2024 14:44-0400 Body weight 98.43 kg Zachery Tosusaint MD Work Phone: [facility] 01-08-2024 14:44-0400 Diastolic blood pressure 72 mm[Hg] Zachery Toussaint MD Work Phone: [facility] 01-08-2024 14:44-0400 Heart rate 80 /min Zachery Toussaint MD Work Phone: [facility] 01-08-2024 14:44-0400 Respiratory rate 16 /min Zachery Toussaint MD Work Phone: [facility] 01-08-2024 14:44-0400 SaO2% (BldA) [Mass fraction] 97 % Zachery Toussaint MD Work Phone: [facility] 01-08-2024 14:44-0400 Systolic blood pressure 116 mm[Hg] Zachery Toussaint MD Work Phone: [facility] 01-08-2024 10:57-0400 Body mass index (BMI) [Ratio] 38.95 kg/m2 Marianna Yap FULLERETTE.ETL TESTER Work Phone: [facility] 01-08-2024 10:57-0400 Body weight 96.6 kg Marianna Yap FULLERETTE.ETL TESTER Work Phone: [facility] 01-08-2024 10:57-0400 Diastolic blood pressure 82 mm[Hg] Marianna Stef FULLERETTE.ETL TESTER Work Phone: [facility] 01-08-2024 10:57-0400 Heart rate 76 /min Marianna Stef F[employer]ERETTE.ETL TESTER Work Phone: [facility] 01-08-2024 10:57-0400 Respiratory rate 14 /min Marianna Stef F[employer]ERETTE.ETL TESTER Work Phone: [facility] 01-08-2024 10:57-0400 SaO2% (BldA) [Mass fraction] 96 % Marianna Stef FULLERETTE.ETL TESTER Work Phone: [facility] 01-08-2024 10:57-0400 Systolic blood pressure 124 mm[Hg] Marianna Stef FULLERETTE.ETL TESTER Work Phone: [facility] 12-27-2023 14:58-0400 Body mass index (BMI) [Ratio] 39.35 kg/m2 Terrence Flores F[employer]ERETTE[employer]ETL TESTER Work Phone: [facility] 12-27-2023 14:58-0400 Body weight 97.6 kg Terrence Flores [employer]ERETTE[employer]ETL TESTER Work Phone: [facility] 12-27-2023 14:58-0400 Diastolic blood pressure 76 mm[Hg] Terrence Dalyter [employer]ERETTE[employer]ETL TESTER Work Phone: [facility] 12-27-2023 14:58-0400 Heart rate 90 /min Terrence Flores [employer]ER[employer]ETL TESTER Work Phone: [facility] 12-27-2023 14:58-0400 SaO2% (BldA) [Mass fraction] 98 % Terrence Flores [employer]ERETTE.ETL TESTER Work Phone: [facility] 12-27-2023 14:58-0400 Systolic blood pressure 116 mm[Hg] Terrence Payanpster FULLERETTE.ETL TESTER Work Phone: [facility] 12-01-2023 09:49-0400 Body mass index (BMI) [Ratio] 39.23 kg/m2 Eddie Rodríguez FULLERETTE.OCC THERAPIST Work Phone: [facility] 12-01-2023 09:49-0400 Body weight 97.3 kg Eddie Rodríguez FULLERETTE.OCC THERAPIST Work Phone: [facility] 12-01-2023 09:49-0400 Diastolic blood pressure 83 mm[Hg] Eddie Rodríguez FULLERETTE.OCC THERAPIST Work Phone: [facility] 12-01-2023 09:49-0400 Heart rate 71 /min Eddie Rodríguez FULLERETTE.OCC THERAPIST Work Phone: [facility] 12-01-2023 09:49-0400 Respiratory rate 16 /min Eddie Rodríguez FULLERETTE.OCC THERAPIST Work Phone: [facility] 12-01-2023 09:49-0400 Systolic blood pressure 135 mm[Hg] Eddie Rodríguez FULLERETTE.OCC THERAPIST Work Phone: [facility] 09-13-2023 08:52-0400 Diastolic blood pressure 64 mm[Hg] Zachery Toussaint MD Work Phone: [facility] 09-13-2023 08:52-0400 Respiratory rate 16 /min Zachery Toussaint MD Work Phone: [facility] 09-13-2023 08:52-0400 SaO2% (BldA) [Mass fraction] 98 % Zachery Toussaint MD Work Phone: [facility] 09-13-2023 08:52-0400 Systolic blood pressure 92 mm[Hg] Zachery Toussaint MD Work Phone: [facility] 09-13-2023 08:42-0400 Heart rate 73 /min Zachery Toussaint MD Work Phone: [facility] 09-13-2023 07:15-0400 Body temperature 97.59 [degF] Zachery Toussaint MD Work Phone: [facility] 08-23-2023 17:01-0400 Body height 157.5 cm Marianna AbrahamStef FULLERETTE.ETL TESTER Work Phone: [facility] 08-23-2023 17:01-0400 Body mass index (BMI) [Ratio] 39.14 kg/m2 Marianna AbrahamStef FULLERETTE.ETL TESTER Work Phone: [facility] 08-23-2023 17:01-0400 Body temperature 98.91 [degF] Marianna AbrahamStef FULLERETTE.ETL TESTER Work Phone: [facility] 08-23-2023 17:01-0400 Body weight 97.07 kg Marianna Stef FULLERETTE.ETL TESTER Work Phone: [facility] 08-23-2023 17:01-0400 Diastolic blood pressure 74 mm[Hg] Marianna AbrahamStef FULLERETTE.ETL TESTER Work Phone: [facility] 08-23-2023 17:01-0400 Heart rate 86 /min Marianna Yap FULLERETTE.ETL TESTER Work Phone: [facility] 08-23-2023 17:01-0400 Respiratory rate 14 /min Marianna Stef FULLERETTE.ETL TESTER Work Phone: [facility] 08-23-2023 17:01-0400 SaO2% (BldA) [Mass fraction] 98 % Marianna Yap FULLERETTE.ETL TESTER Work Phone: [facility] 08-23-2023 17:01-0400 Systolic blood pressure 134 mm[Hg] Marianna AbrahamStef FULLERETTE.ETL TESTER Work Phone: [facility] 02-21-2023 12:17-0500 Body temperature 96.98 [degF] MIKAEL PULIDO MD [facility] 02-21-2023 12:17-0500 Body weight 100.3 kg MIKAEL PULIDO MD [facility] 02-21-2023 12:17-0500 Diastolic Blood Pressure Non-Invasive 58 mm[Hg] MIKAEL PULIDO MD [facility] 02-21-2023 12:17-0500 Heart rate 73 /min MIKAEL PULIDO MD [facility] 02-21-2023 12:17-0500 Respiratory rate 16 /min MIKAEL PULIDO MD [facility] 02-21-2023 12:17-0500 Systolic Blood Pressure Non-Invasive 158 mm[Hg] MIKAEL PULIDO MD [facility] 01-26-2023 16:11-0500 Diastolic blood pressure 89 mm[Hg] [facility] 01-26-2023 16:11-0500 Heart rate 58 /min [facility] 01-26-2023 16:11-0500 Respiratory rate 19 /min [facility] 01-26-2023 16:11-0500 SaO2% (BldA) [Mass fraction] 97 % [facility] 01-26-2023 16:11-0500 Systolic blood pressure 124 mm[Hg] [facility] 01-26-2023 11:20-0500 Body height 152.4 cm [facility] 01-26-2023 11:20-0500 Body mass index (BMI) [Ratio] 42.4 kg/m2 [facility] 01-26-2023 11:20-0500 Body temperature 96.8 [degF] [facility] 01-26-2023 11:20-0500 Body weight 98.5 kg [facility] 12-15-2022 10:07-0400 Body weight 97.07 kg Meredith Jeff FULLERETTE.ETL TESTER Work Phone: [facility] 12-15-2022 10:07-0400 Diastolic blood pressure 72 mm[Hg] Meredith Beaufort FULLERETTE.ETL TESTER Work Phone: [facility] 12-15-2022 10:07-0400 Systolic blood pressure 106 mm[Hg] Meredith Jeff FULLERETTE.ETL TESTER Work Phone: [facility] 11-28-2022 11:00-0400 Body temperature 97.5 [degF] Marianna Kaushal FULLERETTE.ETL TESTER Work Phone: [facility] 11-28-2022 11:00-0400 Body weight 95.71 kg Marianna Older FULLERETTE.ETL TESTER Work Phone: [facility] 11-28-2022 11:00-0400 Diastolic blood pressure 56 mm[Hg] Marianna Older FULLERETTE.ETL TESTER Work Phone: [facility] 11-28-2022 11:00-0400 Heart rate 76 /min Marianna Older FULLERETTE.ETL TESTER Work Phone: [facility] 11-28-2022 11:00-0400 Systolic blood pressure 105 mm[Hg] Marianna Older FULLERETTE.ETL TESTER Work Phone: [facility] 11-18-2022 13:12-0400 Body weight 97.07 kg Marianna Older FULLERETTE.ETL TESTER Work Phone: [facility] 11-18-2022 13:12-0400 Diastolic blood pressure 64 mm[Hg] Marianna Older FULLERETTE.ETL TESTER Work Phone: [facility] 11-18-2022 13:12-0400 Heart rate 81 /min Marianna Older FULLERETTE.ETL TESTER Work Phone: [facility] 11-18-2022 13:12-0400 Respiratory rate 16 /min Marianna Older FULLERETTE.ETL TESTER Work Phone: [facility] 11-18-2022 13:12-0400 SaO2% (BldA) [Mass fraction] 97 % Marianna Older FULLERETTE.ETL TESTER Work Phone: [facility] 11-18-2022 13:12-0400 Systolic blood pressure 110 mm[Hg] Marianna Older FULLERETTE.ETL TESTER Work Phone: [facility] 05-31-2022 10:140400 Body temperature 98.4 [degF] Leonid Rice MD Work Phone: [facility] 05-31-2022 10:140400 Body weight 97.07 kg Leonid Rice MD Work Phone: [facility] 05-31-2022 10:14-0400 Diastolic blood pressure 80 mm[Hg] Leonid Rice MD Work Phone: [facility] 05-31-2022 10:14-0400 Heart rate 92 /min Leonid Rice MD Work Phone: [facility] 05-31-2022 10:14-0400 Respiratory rate 18 /min Leonid Rice MD Work Phone: [facility] 05-31-2022 10:14-0400 Systolic blood pressure 120 mm[Hg] Leonid Rice MD Work Phone: [facility] 02-16-2022 08:02-0500 Body height 157.5 cm Fabienne Lee PA-C Work Phone: [facility] 02-16-2022 08:02-0500 Body temperature 97.59 [degF] Fabienne Lee PA-C Work Phone: [facility] 02-16-2022 08:02-0500 Body weight 100.25 kg Fabienne Lee PA-C Work Phone: [facility] 02-16-2022 08:02-0500 Diastolic blood pressure 82 mm[Hg] Fabienne Lee PA-C Work Phone: [facility] 02-16-2022 08:02-0500 Heart rate 113 /min Fabienne Grayslake PA-C Work Phone: [facility] 02-16-2022 08:02-0500 SaO2% (BldA) [Mass fraction] 95 % Fabienne Grayslake PA-C Work Phone: [facility] 02-16-2022 08:02-0500 Systolic blood pressure 108 mm[Hg] Fabienne Grayslake PA-C Work Phone: [facility] 02-15-2022 11:03-0500 Body weight 100.25 kg Arcelia Garcia APRN.ETL TESTER Work Phone: [facility] 02-15-2022 11:03-0500 Diastolic blood pressure 69 mm[Hg] Arcelia Garcia APRN.ETL TESTER Work Phone: [facility] 02-15-2022 11:03-0500 Heart rate 64 /min Arcelia Garcia APRN.ETL TESTER Work Phone: [facility] 02-15-2022 11:03-0500 SaO2% (BldA) [Mass fraction] 98 % Arcelia Garcia APRN.ETL TESTER Work Phone: [facility] 02-15-2022 11:03-0500 Systolic blood pressure 113 mm[Hg] Arcelia Garcia APRN.ETL TESTER Work Phone: [facility] 02-14-2022 18:33-0500 Body temperature 98.1 [degF] [facility] Work Phone: 02-14-2022 18:33-0500 Diastolic blood pressure 74 mm[Hg] [facility] Work Phone: 02-14-2022 18:33-0500 Heart rate 74 /min [facility] Work Phone: 02-14-2022 18:33-0500 Respiratory rate 15 /min [facility] Work Phone: 02-14-2022 18:33-0500 SaO2% (BldA) [Mass fraction] 99 % [facility] Work Phone: 02-14-2022 18:33-0500 Systolic blood pressure 132 mm[Hg] [facility] Work Phone: 02-14-2022 15:26-0500 Body height 152.4 cm [facility] Work Phone: 02-14-2022 15:26-0500 Body mass index (BMI) [Ratio] 43.1 kg/m2 [facility] Work Phone: 02-14-2022 15:26-0500 Body weight 100.24 kg [facility] Work Phone: 02-11-2022 16:49-0500 Body weight 100.2 kg Leonid Rice MD Work Phone: [facility] 02-11-2022 16:49-0500 Diastolic blood pressure 86 mm[Hg] Leonid Rice MD Work Phone: [facility] 02-11-2022 16:49-0500 Heart rate 80 /min Leonid Rice MD Work Phone: [facility] 02-11-2022 16:49-0500 Respiratory rate 16 /min Leonid Rice MD Work Phone: [facility] 02-11-2022 16:49-0500 SaO2% (BldA) [Mass fraction] 97 % Leonid Rice MD Work Phone: [facility] 02-11-2022 16:49-0500 Systolic blood pressure 128 mm[Hg] Leonid Rice MD Work Phone: [facility] 12-31-2021 13:31-0400 Body weight 100.25 kg Marianna Older FULLERETTE.ETL TESTER Work Phone: [facility] 12-31-2021 13:31-0400 Diastolic blood pressure 72 mm[Hg] Marianna Older FULLERETTE.ETL TESTER Work Phone: [facility] 12-31-2021 13:31-0400 Heart rate 92 /min Marianna Older FULLERETTE.ETL TESTER Work Phone: [facility] 12-31-2021 13:31-0400 Respiratory rate 16 /min Marianna Older FULLERETTE.ETL TESTER Work Phone: [facility] 12-31-2021 13:31-0400 Systolic blood pressure 106 mm[Hg] Marianna Older FULLERETTE.ETL TESTER Work Phone: [facility] 11-29-2021 14:05-0400 Body weight 99.34 kg Marianna Older FULLERETTE.ETL TESTER Work Phone: [facility] 11-29-2021 14:05-0400 Diastolic blood pressure 80 mm[Hg] Marianna Older FULLERETTE.ETL TESTER Work Phone: [facility] 11-29-2021 14:05-0400 Heart rate 80 /min Marianna Older FULLERETTE.ETL TESTER Work Phone: [facility] 11-29-2021 14:05-0400 Respiratory rate 16 /min Marianna Older FULLERETTE.ETL TESTER Work Phone: [facility] 11-29-2021 14:05-0400 Systolic blood pressure 142 mm[Hg] Marianna Older FULLERETTE.ETL TESTER Work Phone: [facility] 11-13-2021 15:23-0400 Body temperature 98.2 [degF] Terell Joseph MD Work Phone: [facility] 11-13-2021 15:23-0400 Body weight 99.61 kg Terell Joseph MD Work Phone: [facility] 11-13-2021 15:23-0400 Diastolic blood pressure 76 mm[Hg] Terell Joseph MD Work Phone: [facility] 11-13-2021 15:23-0400 Heart rate 73 /min Terell Joseph MD Work Phone: [facility] 11-13-2021 15:23-0400 Respiratory rate 18 /min Terell Joseph MD Work Phone: [facility] 11-13-2021 15:23-0400 SaO2% (BldA) [Mass fraction] 97 % Terell Joseph MD Work Phone: [facility] 11-13-2021 15:23-0400 Systolic blood pressure 146 mm[Hg] Terell Joseph MD Work Phone: [facility] 09-30-2021 13:43-0400 Body temperature 97.7 [degF] Leonid Rice MD Work Phone: [facility] 09-30-2021 13:43-0400 Body weight 95.71 kg Leonid Rice MD Work Phone: [facility] 09-30-2021 13:43-0400 Diastolic blood pressure 78 mm[Hg] Leonid Rice MD Work Phone: [facility] 09-30-2021 13:43-0400 Heart rate 80 /min Leonid Rice MD Work Phone: [facility] 09-30-2021 13:43-0400 Respiratory rate 24 /min Leonid Rice MD Work Phone: [facility] 09-30-2021 13:43-0400 Systolic blood pressure 128 mm[Hg] Leonid Rice MD Work Phone: [facility] Encounters Encounter Date Encounter Type Care Provider Facility Start: 10-30-2024 End: 10-30-2024 Office outpatient visit 25 minutes Saskia Joiner APRN.CNP Work Phone: Pulmonary Medicine Comment on above: Asthma-COPD overlap syndrome (HCC) (Primary Dx); Current smoker; Restrictive lung disease; Obesity, Class III, BMI >= 40; JOSSELIN (obstructive sleep apnea) Start: 10-30-2024 End: 10-30-2024 ambulatory [facility] Work Phone: [facility] Comment on above: Spirometry Start: 10-30-2024 End: 10-30-2024 Patient encounter procedure [facility] Work Phone: [facility] Start: 10-30-2024 End: 10-30-2024 ambulatory [facility] Work Phone: [facility] Comment on above: Spirometry Start: 10-30-2024 End: 10-30-2024 Patient encounter procedure [facility] Work Phone: [facility] Start: 10-01-2024 End: 11-01-2024 ambulatory Leonid Rice MD Work Phone: [facility] [place] Start: 09-02-2024 End: 09-02-2024 Patient encounter procedure Leonid Rice MD Work Phone: [facility] [place] Comment on above: Severe episode of re current major depressive disorder, without psychotic features (HCC) (Primary Dx); Anxiety; Chronic post-traumatic headache, not intractable Start: 09-02-2024 End: 09-02-2024 ambulatory LEONID RICE Facility:[facility] Start: 09-02-2024 End: 09-02-2024 Telephone encounter Leonid Rice MD Work Phone: [facility] [place] Comment on above: Patient Update Start: 08-30-2024 End: 08-30-2024 Patient encounter procedure Leonid Rice MD Work Phone: [facility] [place] Comment on above: COPD with acute exac erbation (HCC) (Primary Dx); Tobacco use; Type 2 diabetes mellitus without complication, without long-term current use of insulin (HCC); Asthma with chronic obstructive pulmonary disease (COPD) (HCC) Start: 08-30-2024 End: 08-30-2024 ambulatory LEONID RICE Facility:[facility] Start: 08-29-2024 End: 08-29-2024 Patient encounter procedure Kadie Hampton MD Work Phone: [facility] Comment on above: Asthma with COPD wit h exacerbation (HCC) (Primary Dx); Moderate smoker (20 or less per day); JOSSELIN on CPAP Start: 08-29-2024 End: 08-29-2024 ambulatory KADIE HAMPTON Facility:[id number] Start: 08-29-2024 End: 08-29-2024 Emergency department patient visit Dr. Leonid Rice MD Work Phone: -Emergency Department Work Phone: Start: 08-28-2024 Non-patient / Non-visit Dr. Alcon Cr MD -[facility] Work Phone: Start: 08-27-2024 Non-patient / Non-visit Dr. Alcon Cr MD -[facility] Work Phone: Start: 08-26-2024 Non-patient / Non-visit Dr. Alcon Cr MD -[facility] Work Phone: Start: 08-25-2024 End: 08-28-2024 ambulatory Modesta Caro Facility:[facility] Start: 08-25-2024 End: 08-28-2024 Evaluation and management of inpatient Dr. Modesta Caro DO -Medical Surgical 3 Work Phone: Start: 08-25-2024 End: 08-28-[address] Leonid Rice MD Work Phone: [facility] Work Phone: Start: 01-18-2024 End: 01-18-2024 ambulatory ZACHERY TOUSSAINT Facility:[facility] Start: 01-18-2024 End: 01-18-2024 Subsequent hospital visit by physician Zachery Toussaint MD Work Phone: Ambulatory Surgery Comment on above: Epigastric abdominal pain [R10.13] Start: 01-16-2024 End: 01-16-2024 ambulatory Ruby Golias PT Work Phone: [facility] Physical Therapy Comment on above: Acute medial meniscu s tear of left knee, subsequent encounter (Primary Dx); Chronic pain of left knee; Tear of medial meniscus of left knee, current, unspecified tear type, initial encounter Start: 01-08-2024 End: 01-08-2024 ambulatory ZACHERY TOUSSAINT Facility:[facility] Start: 01-08-2024 End: 01-08-2024 Patient encounter procedure Marianna Yap APRN.CNP Work Phone: [facility] [place] Comment on above: Epigastric abdominal pain (Primary Dx); Nausea; Encounter for immunization; Chronic pain of left knee Epigastric abdominal pain; Nausea Start: 12-27-2023 End: 12-27-2023 Subsequent hospital visit by physician [facility] Radiology Comment on above: Smoker [F17.200] Start: 12-27-2023 End: 12-27-2023 ambulatory UNKNOWN PROVIDER Facility:[facility] Start: 12-27-2023 End: 12-27-2023 Patient encounter procedure Smiley De La Paz DO Work Phone: Orthopaedics Comment on above: Tear of medial menis cus of left knee, current, unspecified tear type, initial encounter (Primary Dx); Chronic pain of left knee Lung nodule (Primary Dx); Encounter for screening for lung cancer; Smoker Start: 12-05-2023 End: 12-07-2023 Orders Only Arcelia Garcia F[employer]ERETTE.ETL TESTER Work Phone: Pulmonary Medicine Comment on above: Smoker (Primary Dx); Encounter for screening for malignant neoplasm of lung Results Start: 12-01-2023 End: 12-01-2023 Subsequent hospital visit by physician [facility] [place] Work Phone: Radiology Comment on above: Chronic pain of left knee [M25.562, G89.29] Start: 12-01-2023 End: 12-01-2023 ambulatory [facility] Facility:[facility] Start: 12-01-2023 End: 12-01-2023 Office outpatient visit 25 minutes Eddie Rodríguez APRN.OCC THERAPIST Work Phone: [facility] [place] Comment on [...] (Primary Dx) Results Start: 10-03-2023 End: 10-03-2023 Subsequent hospital visit by physician [facility] Work Phone: Radiology Comment on above: Abnormal mammogram o f left breast [R92.8] Start: 09-13-2023 End: 09-13-2023 Subsequent hospital visit by physician Zachery Toussaint MD Work Phone: Ambulatory Surgery Comment on above: Screening for colon cancer [Z12.11] Start: 09-11-2023 Orders Only Leonid gonzalez MD Work Phone: [facility] [place] Comment on above: Abnormal mammogram o f left breast (Primary Dx) Results Start: 08-30-2023 Documentation procedure Mammog mily Coordinator [facility] Department Start: 08-30-2023 Letter encounter Mammography Coordinator [facility] Department Start: 08-30-2023 Telephone encounter Zachery patton MD Work Phone: General Surgery Comment on above: Orders; Patient Ques tion Start: 08-29-2023 End: 08-29-2023 Subsequent hospital visit by physician [facility] Comment on above: Encounter for screen ing mammogram for malignant neoplasm of breast [Z12.31] Start: 08-23-2023 End: 08-23-2023 Patient encounter procedure Marianna Song Stef F[employer]ERETTE.ETL TESTER Work Phone: [facility] [place] Comment on above: Type 2 diabetes bear itus without complication, without long- term current use of insulin (HCC) (Primary Dx); Left hand pain; Moderate persistent asthma, unspecified whether complicated; Obesity, Class III, BMI >= 40; Screening for colon cancer; Encounter for immunization Start: 07-12-2023 Admission to [facility] Leonid Rice MD Work Phone: Ambulatory Surgery Start: 07-12-2023 ambulatory Leonid gonzalez MD Work Phone: Ambulatory Surgery Start: 06-02-2023 Refill Leonid gonzalez MD Work Phone: [facility] [place] Comment on above: Refill Request Orders (Mammogram or sharee mailed to her home; I verified address as well./) Start: 02-21-2023 End: 02-21-2023 Emergency department patient visit MIKAEL PULIDO MD Facility:[facility] Start: 02-21-2023 End: 02-21-2023 Emergency department patient visit MIKAEL PULIDO MD [facility] Start: 01-26-2023 ambulatory Leonid gonzalez MD Work Phone: [facility] [place] Comment on above: Chest Pain Start: 01-26-2023 End: 01-26-2023 Emergency department patient visit [facility] Work Phone: Start: 12-15-2022 End: 12-15-2022 Patient encounter procedure Meredith Aguilar F[employer]ERETTE.ETL TESTER Work Phone: OB/Gynecology Comment on above: Skin yeast infection (Primary Dx) Start: 12-02-2022 Refill Dana saavedra MD Work Phone: Pulmonary Medicine Comment on above: Refill Request Start: 11-28-2022 End: 11-28-2022 Patient encounter procedure Marianna Older FULLERETTE.ETL TESTER Work Phone: [facility] [place] Comment on above: Left hand pain (Prim cheng Dx); Need for influenza vaccination Start: 11-23-2022 Telephone encounter Marianna Older FULLERETTE.ETL TESTER Work Phone: Internal Medicine [place] Comment on above: Results Start: 11-18-2022 End: 11-18-2022 Subsequent hospital visit by physician [facility] [place] Work Phone: Radiology Comment on above: Left hand pain [M79. 642] Start: 11-18-2022 End: 11-18-2022 Patient encounter procedure Marianna Older FULLERETTE.ETL TESTER Work Phone: Internal Medicine [place] Comment on above: Left hand pain (Prim cheng Dx) Start: 07-27-2022 Telephone encounter Marianna Older FULLERETTE.ETL TESTER Work Phone: Internal Medicine [place] Comment on above: Results Start: 06-13-2022 Telephone encounter Leonid mchugh MD Work Phone: Internal Medicine [place] Comment on above: Results Start: 06-06-2022 Documentation procedure Mammog mily Coordinator [facility] Start: 06-06-2022 Letter encounter Mammography Coordinator [facility] Department Start: 06-03-2022 End: 06-03-2022 Subsequent [...] Leonid Rice MD Work Phone: Internal Medicine [place] Comment on above: Chronic left shoulde r pain (Primary Dx); Asthma with COPD (HCC); Type 2 diabetes mellitus without complication, without long-term current use of insulin (HCC); Encounter for screening mammogram for malignant neoplasm of breast; Constipation, unspecified constipation type Start: 05-25-2022 Refill Leonid gonzalez MD Work Phone: Internal Medicine [place] Comment on above: Refill Request Start: 04-06-2022 Telephone encounter Leonid mchugh MD Work Phone: Internal Medicine [place] Comment on above: Cpap Form; Lat OV no te Start: 04-01-2022 Telephone encounter Arcelia Garcia APRN.ETL TESTER Work Phone: Pulmonary Medicine Comment on above: Results (LDCT ) Start: 03-31-2022 End: 03-31-2022 Subsequent hospital visit by physician [facility] Radiology Comment on above: Smoker [F17.200] Start: 02-16-2022 End: 02-16-2022 Patient encounter procedure Fabienne Howard PA-C Work Phone: General Surgery Comment on above: Abscess of skin of a bdomen (Primary Dx) Start: 02-15-2022 End: 02-15-2022 Patient encounter procedure Arcelia Garcia APRN.ETL TESTER Work Phone: Pulmonary Medicine Comment on above: Encounter for screen ing for lung cancer (Primary Dx); Smoker Start: 02-14-2022 End: 02-14-2022 Emergency department patient visit [facility] Start: 02-11-2022 End: 02-11-2022 Patient encounter procedure Leonid Rice MD Work Phone: Internal Medicine [place] Comment on above: Sebaceous cyst (Prim cheng Dx); Type 2 diabetes mellitus without complication, without long-term current use of insulin (HCC); Tobacco use Start: 12-31-2021 End: 12-31-2021 Patient encounter procedure Marianna Easley FULLERETTE.ETL TESTER Work Phone: Internal Medicine [place] Comment on above: Asthma with COPD (HC C) (Primary Dx); Type 2 diabetes mellitus without complication, without long-term current use of insulin (HCC); JOSSELIN (obstructive sleep apnea); Encounter for immunization; Tobacco use; Obesity, Class III, BMI >= 40; Severe episode of recurrent major depressive disorder, without psychotic features (HCC); Anxiety Start: 11-29-2021 End: 11-29-2021 Subsequent hospital visit by physician [facility] [place] Work Phone: Radiology Comment on above: Lower abdominal pain [R10.30] Start: 11-29-2021 End: 11-29-2021 Patient encounter procedure Marianna Kaushal FULLERETTE.ETL TESTER Work Phone: Internal Medicine [place] Comment on [...] Leonid gonzalez MD Work Phone: Internal Medicine [place] Comment on above: Refill Request Start: 10-14-2021 Telephone encounter Leonid mchugh MD Work Phone: Internal Medicine [place] Comment on above: Results Start: 10-06-2021 End: 10-06-2021 Subsequent hospital visit by physician [facility] [employer] 2 Work Phone: Radiology Comment on above: Epigastric abdominal pain [R10.13] Start: 09-30-2021 End: 09-30-2021 Patient encounter procedure Leonid Rice MD Work Phone: Internal Medicine [place] Comment on above: Malaise (Primary Dx) ; Epigastric abdominal pain; Dysgeusia; Type 2 diabetes mellitus without complication, without long-term current use of insulin ([facility]); Severe episode of recurrent major depressive disorder, without psychotic features (HCC) Start: 08-31-2021 Telephone encounter Dana Hensley MD Work Phone: Pulmonary Medicine Comment on above: FYI-No Action Needed Start: 08-09-2021 Refill Dana saavedra MD Work Phone: Pulmonary Medicine Comment on above: Refill Request Start: 07-12-2020 End: 07-12-2020 Emergency department patient visit DR MIKAEL PELLETIER [facility] Start: 06-26-2018 End: 06-26-2018 Emergency department patient visit CHAYO Cleve [facility] Start: 04-25-2018 End: 04-28-2018 Patient encounter procedure CHAYO L [facility] Start: 04-10-2018 End: 04-10-2018 Patient encounter procedure [facility] Start: 02-22-2018 End: 02-22-2018 Emergency department patient visit CHAYO L [facility] Start: 01-30-2018 End: 02-02-2018 Patient encounter procedure CHAYO L [facility] Start: 01-09-2018 End: 01-09-2018 Patient encounter procedure FELIPA Stevie [facility] Start: 12-19-2017 End: 12-19-2017 Emergency department patient visit ERENDIRA [facility] Start: 11-20-2017 End: 11-23-2017 Patient encounter procedure JOSEMANUEL ROJAS [facility] Start: 09-14-2017 End: 09-17-2017 Patient encounter procedure CATA MCCARTHY [facility] Start: 09-09-2017 End: 09-09-2017 Emergency department patient visit [facility] Start: 08-29-2017 Ambulatory YANELIS A [place] Facility :8 Start: 07-20-2017 End: 07-20-2017 Ambulatory YANELIS A DOTTIE Facility:8 Start: 07-18-2017 End: 07-18-2017 Emergency department patient visit [facility] Start: 07-11-2017 Ambulatory YANELIS A DOTTIE Facility :8 Start: 06-08-2017 Ambulatory KIARRA GARCIA Facility:1 [id number] Start: 06-06-2017 Ambulatory KIARRA GARCIA Facility:1 528 Start: 06-06-2017 Ambulatory Facility:9 [id number] Procedures Date Procedure Procedure Detail Performing Clinician Start: 10-30-2024 Noninvasive ear/pulse oximetry multiple deter Kadie Hampton MD Work Phone: Start: 10-30-2024 Nitric oxide gas determination Kadie Hampton MD Work Phone: Start: 10-30-2024 Brncdilat rspse spmtry pre&post-brncdilat admn Kadie Hampton MD Work Phone: Start: 08-29-2024 X-ray of chest, PA and lateral views Dr. Leonid Rice MD Work Phone: Start: 08-29-[address] Reed Rice MD Work Phone: Start: 08-26-[address] Leonid [...] Phone: Start: 08-25-[address] Leonid Rice MD Work Phone: Start: 08-25-2024 SARS-CoV-2, Influenza & RSV (PCR) Dr. Kristal Rice MD Work Phone: Start: 01-18-2024 Esophagogastroduodenoscopy transoral diagnostic Zachery Toussaint MD Work Phone: Start: 12-27-2023 CT LUNG SCREEN WO [place] Arcelia Garcia FULLERETTE.ETL TESTER Work Phone: Start: 10-03-2023 Us breast uni real time with image limited Leonid Rice MD Work Phone: Start: 10-03-2023 Digital breast tomosynthesis unilateral Leonid Rice MD Work Phone: Start: 09-13-2023 Colonoscopy flx dx w/collj spec when pfrmd Marianna M Stef FULLERETTE.ETL TESTER Work Phone: Start: 09-13-2023 Colonoscopy Zachery Toussaint MD Work Phone: Start: 01-26-2023 CT angiography of chest with contrast Start: 01-26-2023 Plain chest X-ray Start: 11-28-2022 INFLUENZA VACCINE, AGE 6 MO - 64 YR, QUADRIVALENT (AFLURIA, FLULAVAL, FLUZONE) Marianna Older FULLERETTE.ETL TESTER Work Phone: Start: 11-18-2022 Radex hand minimum 3 views Mariannanarciso loza FULLERETTE.ETL TESTER Work Phone: Start: 06-03-2022 End: 06-03-2022 Mammography Leonid Rice MD Work Phone: Start: 05-31-2022 Radex shoulder complete minimum 2 views Leonid Rice MD Work Phone: Start: 03-31-2022 CT LUNG SCREEN WO [place] Arcelia Garcia FULLERETTE.ETL TESTER Work Phone: Start: 02-16-2022 Cul bact xcpt urine blood/stool aerobic isol Fabienne Howard PA-C Work Phone: Start: 02-14-2022 Computed tomography of abdomen and pelvis with intravenous contrast Start: 11-29-2021 Radiologic exam abdomen 2 views Mariannanarciso norwood FULLERETTE.ETL TESTER Work Phone: Start: 10-06-2021 Us abdominal real [...] ESTELA SPRINGER Start: 09-09-2017 EKG 12-LEAD ESTELA HOODOS Start: 09-09-2017 Assay of magnesium ESTELA SPRINGER [...] Detail Author Start: 05-06-2029 Urine microalbumin profile [facility] Start: 09-12-2028 Screening for malign ant neoplasm of colon [facility] Start: 09-02-2025 Annual PCP Team [employer] zeeshan Disease Visit Annual PCP Team Chronic Disease Visit [facility] Start: 08-30-2025 Annual PCP Team [employer] zeeshan Disease Visit Annual PCP Team Chronic Disease Visit [facility] Start: 05-06-2025 End: 05-06-2025 Patient encounter procedure 05/06/2025 10:30 AM EST Office Visit Pulmonary Medicine [address] [place], [place] [id number] Dayna Silva MD [address] [place], [place] [id number] 6 MO OV Pulmonary Medicine Comment on above: 6 MO OV Start: 01-07-2025 Annual PCP Team [employer] zeeshan Disease Visit Annual PCP Team Chronic Disease Visit [facility] Start: 01-07-2025 Covid-19 Vaccine ( season) Covid-19 Vaccine () [facility] Comment on above: Postponed from 11/11 (Declined at this time) Start: 01-07-2025 RSV Vaccine (1 - Ris k 60-74 years 1-dose series) RSV Vaccine (1 - Risk 60-74 years 1-dose series) [facility] Comment on above: Postponed from 11/11 (Declined at this time) Start: 12-30-2024 End: 12-30-2024 Patient encounter procedure Cat Scan Comment on above: Encounter for screen ing for lung cancer [Z12.2] Start: 12-26-2024 Screening for malign ant neoplasm of lung Lung Cancer Screening [facility] Start: 12-02-2024 End: 12-02-2024 Patient encounter procedure 12/02/2024 2:30 PM EDT Office Visit Neurology [address] [place] [address] Amisha Decker APRN.ETL TESTER [address] [place] [address] JOSSELIN (obstructive sleep apnea) [G47.33 Neurology Comment on above: JOSSELIN (obstructive sle ep apnea) [G47.33 Start: 11-30-2024 End: 03-01-2025 Basic metabolic 2000 panel - Serum or Plasma BASIC METABOLIC PANEL Lab Routine Type 2 diabetes mellitus without complication, without long-term current use of insulin (HCC) Expected: 11/30/2024, Expires: 03/01/2025 [facility] Work Phone: Comment on above: Expected: 11/30/2024 , Expires: 03/01/2025 Start: 11-30-2024 End: 03-01-2025 Hemoglobin A1c in Blood HEMOGLOBIN A1C Lab Routine Type 2 diabetes mellitus without complication, without long-term current use of insulin (HCC) Expected: 11/30/2024, Expires: 03/01/2025 [facility] Comment on above: Expected: 11/30/2024 , Expires: 03/01/2025 Start: 11-30-2024 Hepatitis B screening Urine Albumin:Creatinine Ratio [facility] Start: 11-30-2024 Hepatitis B surface antibody level LDL Cholesterol [facility] Start: 11-30-2024 End: 03-01-2025 Microalbumin/Creatinine [Mass Ratio] in Urine ALBUMIN/CREATININE RATIO, URINE Lab Routine Type 2 diabetes mellitus without complication, without long-term current use of insulin (HCC) Expected: 11/30/2024, Expires: 03/01/2025 [facility] Comment on above: Expected: 11/30/2024 , Expires: 03/01/2025 Start: 11-29-2024 End: 11-29-2024 Patient encounter procedure 11/29/2024 12:00 PM EDT Office Visit Internal Medicine [place] [address] [facility] [place] [address] Marianna Yap, FULLERETTE.ETL TESTER [address] [facility] [place] [address] 3 month Internal Medicine [place] Comment on above: 3 month Start: 2024 Influenza vaccination Influenza Vacc ine (#1) [facility] Start: 10-30-2024 End: 10-30-2024 Patient encounter procedure 10/30/2024 11:30 AM EDT Office Visit [facility] [address] [facility] [place] [address] Saskia Joiner, FULLERETTE.ETL TESTER [address] [place] [address] follow up Pulmonary Medicine Comment on above: follow up Start: 10-30-2024 End: 10-30-2024 Follow-up encounter 10/30/2024 10:45 AM EDT Procedure [facility] [address] [facility] [place] [address] [facility]str, [facility] [address] [facility] [place] [address] follow up [facility] Comment on above: follow up Start: 10-30-2024 End: 10-30-2024 Follow-up encounter [facility] Comment on above: follow up Start: 08-30-2024 End: 08-30-2024 Patient encounter procedure 08/30/2024 1:40 PM EDT Office Visit Internal Medicine [place] [address] [place] [address] Leonid Rice MD [address] [place] [address] Hospital follow up [facility] 08/26-08/28 Wheezing, COPD Internal Medicine [place] Comment on above: Hospital follow up W 08/26-08/28 Wheezing, COPD Start: 08-29-2024 [facility] Start: 08-28-2024 Screening for malign ant neoplasm of breast Mammogram Screening [facility] Start: 08-28-2024 Patient discharge [facility] Start: 08-26-2024 Respiratory microbia l culture Respiratory Culture [facility] Start: 08-26-2024 Inhalation therapy procedure [facility] Start: 08-25-2024 Ambulation without limitation [facility] Start: 08-25-2024 Assessment of risk o f venous thromboembolism [facility] Start: 08-25-2024 Catheterization of vein [facility] Start: 08-25-2024 Insertion of cathete r into peripheral vein [facility] Start: 08-25-2024 Measuring intake and output [facility] Start: 08-25-2024 Oxygen therapy [facility] Start: 08-25-2024 Physiotherapy of chest [facility] Start: 08-25-2024 Providing care accor ding to standard [facility] Start: 08-25-2024 Tobacco use cessatio n education [facility] Start: 08-25-2024 [facility] Start: 08-25-2024 Following clinical pathway protocol [facility] Start: 08-25-2024 Verification routine [facility] Start: 08-25-2024 Admission procedure [facility] Start: 08-25-2024 Hospital admission, emergency, from emergency room, medical nature [facility] Start: 08-25-2024 Respiratory Panel (PCR) Respir atory Panel (PCR) [facility] Start: 08-22-2024 Annual PCP Team [employer] zeeshan Disease Visit Annual PCP Team Chronic Disease Visit [facility] Start: 08-22-2024 Diabetic foot examination Diabetic F oot Exam [facility] Start: 07-08-2024 End: 07-08-2024 Patient encounter procedure 07/08/2024 11:00 AM EDT Office Visit Internal Medicine [place] [address] [place] [address] Marianna Yap FULLERETTE.ETL TESTER [address]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 [facility] Start: 09-28-2019 Alone [facility] Start: 07-28-2020 Non-smoker [facility] Start: 1960 Sex Assigned At Female W [facility] Start: 02-15-2022 Tobacco Comment Started as a teenager, can't remember. Down to about 1 pack every 3 days lately [facility] Start: 10-21-2020 End: 11-18-2022 Social connection and isolation panel [facility] Do you belong to any clubs or organizations such as yazidi groups, unions, fraternal or athletic groups, or school groups? No [facility] Are you now , , , , never or living with a partner? [facility] Start: 05-27-2014 How hard is it for y ou to pay for the very basics like food, housing, medical care, and heating Not hard at all [facility] (I/We) worried shine esparza (my/our) food would run out before (I/we) got money to buy more. Never true [facility] Tobacco smoking status No Smokin g Status Entered [facility] Start: 10-30-2024 Alcoholic beverage intake Ex-drinker (finding) [facility] Medical Equipment Procedure Code Equipment Code Equipment Origin al Text Equipment Identifier Dates [facility] [id number] - [id number] Start: 11-29-2011 Test blood sugar(s) 1 times daily. Dx: Type 2 DM - Controlled E11.9 Insulin: No [id number], [id number], [id number], [id number], [id number], [id number] Start: 09-30-2020 End: 08-23-2023 Comment on above: Test blood sugar(s) 1 times daily. Dx: Type 2 DM - Controlled E11.9 Insulin: No Goals Date Patient Goal Desired Activity /State Functional Status Date Assessment Result Facility 08-28-2024 Functional status Bedrest [facility] Work Phone: 08-27-2024 Functional status Assistive [place] kaylen Rolling Walker [facility] Work Phone: 10-17-2014 Are you deaf, or do you have serious difficulty hearing No 10/17/2014 2:15 PM EDT Jenelle Keen Ma [facility] 10-17-2014 Are you blind, or do you have serious difficulty seeing, even when wearing glasses No 10/17/2014 2:15 PM EDJenelle Gordon Ma [facility] 10-17-2014 Do you have serious difficulty walking or climbing stairs No 10/17/2014 2:15 PM EDJenelle Gordon Ma [facility] 10-17-2014 Do you have difficul ty dressing or bathing No 10/17/2014 2:15 PM Jenelle Mijares Ma [facility] 10-17-2014 Because of a physica l, mental, or emotional condition, do you have difficulty doing errands alone such as visiting a physician's office or shopping No 10/17/2014 2:15 PM EDT Jenelle Keen Ma [facility] Mental Status Date Assessment Result Facility 08-28-2024 Cognitive function Appropriate;Cooperativ [facility] Work Phone: 08-27-2024 Cognitive function Arousable To Voice/Nam [facility] Work Phone: 02-21-2023 Mental Status Orientation Oriented x 4 [facility] 01-26-2023 Cognitive function Voice/Name [facility] Work Phone: 10-17-2014 Because of a physica l, mental, or emotional condition, do you have serious difficulty concentrating, remembering, or making decisions No 10/17/2014 2:15 PM EDT Jenelle Keen Ma No [facility] Clinical Notes 08-06-2020 to 10-30-2024 Patient InstructionsSaskia Joiner APRN.ETL TESTER - 10/30/2024 11:30 AM Alina Morgan LPN - 10/30/2024 11:08 AM Suha Olguin RPFT - 10/30/2024 10:33 AM EDTPatient Instructions Note Date & Type Note Facility 10-30-2024 Instructions Saskia Joiner APRN.CNP - 10/30/2024 11:37 AM EDT Your breathing tests today look unchanged from 2020. You have small airway obstruction which responds well to using the inhaler. The testing shows you have restriction which was noted back in 2019 when you had lung function tests. The restriction at that time was attributed to your weight. You do not seem to have symptoms related to the restriction but making efforts towards losing weight is recommended. Other testing today shows you do not need supplemental oxygen. Continue the nicotine patches as they have helped you cut back on smoking. We are switching your inhaler since you do not like the powder of the Advair/Wixela inhaler. You will stop that inhaler and start Symbicort, 2 puffs twice a day. Remember to rinse your mouth out after use. Try using with the spacer provided. Continue Albuterol as needed. I placed a referral to sleep medicine to help with the management of your sleep apnea and provide you with options for your CPAP. documented in this encounter [facility] 10-30-2024 History of Presen t illness Narrative Images from the original note were not included. Pulmonary Medicine Patients name: Jennifer Mcmullen PCP: Leonid Rice MD CC: follow-up HPI: Jennifer Mcmullen is a 63 year old female current 5 cigarette a day smoker, 22 pack year history, with a PMH of Asthma and COPD overlap, Depression/Anxiety, DM, JOSSELIN, Chronic pain, Lung nodule. Previously seen by Dr. Hensley in [place] with JOJO 08/[address] Hampton for COPD exacerbation. Had been in the ED twice in August and hospitalized for COPD exacerbation. Transferring care to [place] d/t proximity to home. Current inhaled therapy with Wixela and PRN Albuterol, Duoneb. She presents today for updated testing and follow-up. Since her last visit, she reports doing well. Using Nicotine patches for smoking cessation which she has found to be helpful. She wants to quit smoking. She reports compliance with her ICS/LABA but does not like the powder. Makes it hard to be compliant with the inhaler. Currently uses Albuterol at least once a week. Today, patient denies cough, wheezing, and chest tightness. Denies significant shortness of breath at rest or with exertion. No nocturnal symptoms. No fevers, chills, or night sweats. No recent hospitalizations or ED visits or upper respiratory infections. Heat/humidity exacerbates her breathing. She has JOSSELIN but does not wear CPAP. Does not like the mask and would like to know of other options. PAST MEDICAL HISTORY Diagnosis Date Acute medial meniscus tear of left knee 01/16/2024 Arthritis Asthma Asthma ([facility]) 01/15/2015 Asthma with chronic obstructive pulmonary disease (COPD) ([facility]) 12/31/2021 Chronic low back pain 05/27/2014 Work injury 2006 Depression [facility] Diabetes mellitus ([facility]) Disc slipped disc in back Fracture of right ankle Head injury Helicobacter pylori infection 09/12/2016 Hernia, hiatal Hyperglycemia 2010 Insomnia JOSSELIN (obstructive sleep apnea) 02/25/2019 Post-traumatic headache 01/16/2014 Postmenopausal Prediabetes 04/08/2019 PTSD (post-traumatic stress disorder) Tobacco use Allergies: Latex Itching Voltaren [Diclofena* Other: See Comments Comment:voltaren gel causes burning sensation to area in which it is applied Medication List Accurate as of October 30, 2024 8:40 AM. If you have any questions, ask your nurse or doctor. CONTINUE taking these medications * albuterol 2.5 mg /3 mL (0.083 %) nebulizer solution Commonly known as: PROVENTIL Use 3 mL via nebulizer every 4 hours as needed for wheezing/shortness of breath. * albuterol HFA 90 mcg/actuation inhaler Commonly known as: PROVENTIL HFA, VENTOLIN HFA Inhale 2 Puffs as instructed every 4 hours as needed for wheezing/shortness of breath. blood sugar diagnostic test strip Commonly known as: BLOOD GLUCOSE TEST Test blood sugar(s) 1 times daily. Dx: Type 2 DM - Controlled E11.9 Insulin: No COMPOUNDED PRESCRIPTION NEBULIZER FOR HOME USE. DX: J45.41. Nebulizer and supplies. Face mask preferred. FLUoxetine 20 mg capsule Commonly known as: PROzac Take 1 capsule by mouth once daily. fluticasone-salmeterol 250-50 mcg/dose inhaler Commonly known as: WIXELA INHUB Inhale 1 puff as instructed two times a day. guaiFENesin 600 mg 12 hr tablet Commonly known as: MUCINEX ipratropium-albuterol 0.5 mg-3 mg(2.5 mg base)/3 mL Nebu Commonly known as: DUONEB Inhale 3 mL as instructed every 6 hours as needed for wheezing/shortness of breath. Lancets Test blood sugar(s) 1 times daily. Dx: Type 2 DM - Controlled E11.9 Insulin: No naproxen 500 mg tablet Commonly known as: NAPROSYN Take 1 tablet by mouth two times a day as needed for pain (for pain/inflammation). Take with food. * nicotine 21 mg/24 hr Commonly known as: NICODERM * nicotine 14 mg/24 hr Commonly known as: NICODERM CQ Apply 1 patch as directed every 24 hours for 28 days. Patient should start on September 25, 2024. * nicotine 7 mg/24 hr Commonly known as: NICODERM CQ Apply 1 patch as directed every 24 hours for 28 days. Patient should start on October 28, 2024. predniSONE 10 mg tablet Commonly known as: DELTASONE topiramate 50 mg tablet Commonly known as: TOPAMAX Take 1 tablet by mouth once daily. * This list has 5 medication(s) that are the same as other medications prescribed for you. Read the directions carefully, and ask your doctor or other care provider to review them with you. DATA: I personally reviewed and analyzed all labs, radiographs and available pulmonary function testing PFT: 10/30/2024 CT Chest: 12/2023 IMPRESSION: LungRADS category: 1 LungRADS modifier: None LungRADS 0 reason: n/a Recommendations: Continue annual screening with LDCT in 12 months. COMPARISON: 03/31/2022 RESULT: Are nodules present? Yes, [...] changes are noted in the thoracic spine. Review of Systems Constitutional: Negative for activity change, appetite change and unexpected weight change. HENT: Negative for congestion, mouth sores, postnasal drip and sinus pain. Respiratory: Negative for cough, chest tightness, shortness of breath and wheezing. Cardiovascular: Negative for chest pain, palpitations and leg swelling. Allergic/Immunologic: Negative for environmental allergies. Neurological: Negative for dizziness and weakness. BP 114/74 (BP Site: Right Arm, BP Position: Sitting, BP Cuff Size: Large Adult) Pulse 74 Resp 16 Ht 152.5 cm (5' 0.04) Wt 96.2 kg (212 lb) SpO2 97% BMI 41.35 kg/m Physical Exam Vitals reviewed. Constitutional: General: She is not in acute distress. Appearance: Normal appearance. She is not ill-appearing. HENT: Head: Normocephalic. Mouth/Throat: Mouth: Mucous membranes are moist. Pharynx: No oropharyngeal exudate. Cardiovascular: Rate and Rhythm: Normal rate and regular rhythm. Heart sounds: Normal heart sounds. Pulmonary: Effort: Pulmonary effort is normal. No respiratory distress. Breath sounds: No wheezing or rhonchi. Musculoskeletal: Right lower leg: No edema. Left lower leg: No edema. Lymphadenopathy: Cervical: No cervical adenopathy. Skin: General: Skin is warm and dry. Capillary Refill: Capillary refill takes less than 2 seconds. Neurological: General: No focal deficit present. Mental Status: She is alert. ASSESSMENT/PLAN: 1. Asthma-COPD overlap syndrome (HCC) - ICD9: 493.20, ICD10: J44.89 (primary diagnosis) - Symptoms controlled - PFT today without large airway obstruction. Small airway obstruction which improved post bronchodilator noted. - Switch Wixela to Symbicort d/t not tolerating dry powder. Provided with spacer. - Continue Albuterol as needed. - BUDESONIDE-FORMOTEROL HFA 160 MCG-4.5 MCG/ACTUATION AEROSOL INHALER 2. Current smoker - ICD9: 305.1, ICD10: F17.200 - Cessation encouraged and she is motivated to quit. - Continue Nicotine patches. - Physiologic and physical aspects of tobacco addiction as well as strategies for quitting were discussed. - follows with [facility], scheduled for December. 3. Restrictive lung disease - ICD9: 518.89, ICD10: J98.4 4. Obesity, Class III, BMI >= 40 - ICD9: 278.01, ICD10: E66.813 - BMI 41 - restriction and reduced TLC on PFT. No previous sign of - discussed obesity contributing to pulmonary restriction. - weight loss recommended. 5. JOSSELIN (obstructive sleep apnea) - ICD9: 327.23, ICD10: G47.33 - noncompliant with CPAP d/t not tolerating the mask. Would like to know other options. Previous sleep study from 2019 at [facility]. - CONSULT TO SLEEP MEDICINE - ADULT F/u 6 months Portions of this documentation were copied and pasted from previous office visit notes in order to provide a cohesive continuity of the history. The note has been reviewed and edited and updated as necessary. Saskia Joiner, MEÑO.RIGO I spent a total of 37 minutes on the date of the service which included preparing to see the patient, [id number] patient care, completing clinical documentation, performing a medically appropriate examination, counseling and educating the patient/family/caregiver, ordering medications, tests, or procedures, and communicating results to the patient/family/caregiver. Offered interpretor- declined. States reads bolivian okay but does understand bolivian verbally well. Alina Bloom LPN documented in this encounter [facility] 10-30-2024 Note HNO ID: [id number] Author: SASKIA JOINER APRN.RIGO Service: ? Author Type: Nurse Practitioner Type: Progress Notes Filed: 10/30/2024 12:26 Note Text: Pulmonary Medicine Patients name: Jennifer Mcmullen PCP: Leonid Rice MD CC: follow-up HPI: Jennifer Mcmullen is a 63 year old female current 5 cigarette a day smoker, 22 pack year history, with a PMH of Asthma and COPD overlap, Depression/Anxiety, DM, JOSSELIN, Chronic pain, Lung nodule. Previously seen by Dr. Hensley in [place] with JOJO 08/[address] Hampton for COPD exacerbation. Had been in the ED twice in August and hospitalized for COPD exacerbation. Transferring care to [facility] to home. Current inhaled therapy with Wixela and PRN Albuterol, Duoneb. She presents today for updated testing and follow-up. Since her last visit, she reports doing well. Using Nicotine patches for smoking cessation which she has found to be helpful. She wants to quit smoking. She reports compliance with her ICS/LABA but does not like the powder. Makes it hard to be compliant with the inhaler. Currently uses Albuterol at least once a week. Today, patient denies cough, wheezing, and chest tightness. Denies significant shortness of breath at rest or with exertion. No nocturnal symptoms. No fevers, chills, or night sweats. No recent hospitalizations or ED visits or upper respiratory infections. Heat/humidity exacerbates her breathing. She has JOSSELIN but does not wear CPAP. Does not like the mask and would like to know of other options. PAST MEDICAL HISTORY Diagnosis Date Acute medial meniscus tear of left knee 01/16/2024 Arthritis Asthma Asthma (HCC) 01/15/2015 Asthma with chronic obstructive pulmonary disease (COPD) ([facility]) 12/31/2021 Chronic low back pain 05/27/2014 Work injury 2006 Depression [facility] Diabetes mellitus ([facility]) Disc slipped disc in back Fracture of right ankle Head injury Helicobacter pylori infection 09/12/2016 Hernia, hiatal Hyperglycemia 2010 Insomnia JOSSELIN (obstructive sleep apnea) 02/25/2019 Post-traumatic headache 01/16/2014 Postmenopausal Prediabetes 04/08/2019 PTSD (post-traumatic stress disorder) Tobacco use Allergies: Latex Itching Voltaren [Diclofena* Other: See Comments Comment:voltaren gel causes burning sensation to area in which it is applied Medication List Accurate as of October 30, 2024 8:40 AM. If you have any questions, ask your nurse or doctor. CONTINUE taking these medications * albuterol 2.5 mg /3 mL (0.083 %) nebulizer solution Commonly known as: PROVENTIL Use 3 mL via nebulizer every 4 hours as needed for wheezing/shortness of breath. * albuterol HFA 90 mcg/actuation inhaler Commonly known as: PROVENTIL HFA, VENTOLIN HFA Inhale 2 Puffs as instructed every 4 hours as needed for wheezing/shortness of breath. blood sugar diagnostic test strip Commonly known as: BLOOD GLUCOSE TEST Test blood sugar(s) 1 times daily. Dx: Type 2 DM - Controlled E11.9 Insulin: No COMPOUNDED PRESCRIPTION NEBULIZER FOR HOME USE. DX: J45.41. Nebulizer and supplies. Face mask preferred. FLUoxetine 20 mg capsule Commonly known as: PROzac Take 1 capsule by mouth once daily. fluticasone-salmeterol 250-50 mcg/dose inhaler Commonly known as: WIXELA INHUB Inhale 1 puff as instructed two times a day. guaiFENesin 600 mg 12 hr tablet Commonly known as: MUCINEX ipratropium-albuterol 0.5 mg-3 mg(2.5 mg base)/3 mL Nebu Commonly known as: DUONEB Inhale 3 mL as instructed every 6 hours as needed for wheezing/shortness of breath. Lancets Test blood sugar(s) 1 times daily. Dx: Type 2 DM - Controlled E11.9 Insulin: No naproxen 500 mg tablet Commonly known as: NAPROSYN Take 1 tablet by mouth two times a day as needed for pain (for pain/inflammation). Take with food. * nicotine 21 mg/24 hr Commonly known as: NICODERM * nicotine 14 mg/24 hr Commonly known as: NICODERM CQ Apply 1 patch as directed every 24 hours for 28 days. Patient should start on September 25, 2024. * nicotine 7 mg/24 hr Commonly known as: NICODERM CQ Apply 1 patch as directed every 24 hours for 28 days. Patient should start on October 28, 2024. predniSONE 10 mg tablet Commonly known as: DELTASONE topiramate 50 mg tablet Commonly known as: TOPAMAX Take 1 tablet by mouth once daily. * This list has 5 medication(s) that are the same as other medications prescribed for you. Read the directions carefully, and ask your doctor or other care provider to review them with you. DATA: I personally reviewed and analyzed all labs, radiographs and available pulmonary function testing PFT: 10/30/2024 CT Chest: 12/2023 IMPRESSION: LungRADS category: 1 LungRADS modifier: None LungRADS 0 reason: n/a Recommendations: Continue annual screening with LDCT in 12 months. COMPARISON: 03/31/2022 RESULT: Are nodules present? Yes, 1-5 nodules If No, go to IMPRESSION. If (more content not included)... [facility] 10-30-2024 Note HNO ID: [id number] Author: ALINA BLOOM LPN Service: ? Author Type: Licensed Nurse Type: Progress Notes Filed: 10/30/2024 12:26 Note Text: Offered interpretor- declined. States reads bolivian okay but does understand bolivian verbally well. Alina Bloom LPN [facility] 10-30-2024 Note HNO ID: [id number] Author: SUHA DODSON RPFT Service: ? Author Type: Respiratory Therapist Type: Procedures Filed: 10/30/2024 10:33 Note Text: RESPIRATORY THERAPY OXIMETRY WITH AMBULATION Oximetry with Ambulation Test for This Encounter O2 Device O2 Adapter NC O2 Flow SpO2% HR Activity Ft Walked (ft) Time (min) Avg Speed (MPH) R/A 97 74 Resting R/A 97 103 Walking, usual pace 350 3 1.33 R/A 96 106 Walking, fastest pace 360 3 1.36 General Information Pulse Oximetry Site Total Time Spent Walking Assistance/O2 Supply Carrier Forehead 30 None NAME: NITIN Coleman PATIENT NAME: Jennifer Mcmullen DATE: October 30, 2024 TIME: 10:33 AM Comment: [facility] 10-30-2024 Procedure note Associated Ord er(s): OXIMETRY WITH AMBULATION RESPIRATORY THERAPY OXIMETRY WITH AMBULATION Oximetry with Ambulation Test for This Encounter O2 Device O2 Adapter NC O2 Flow SpO2% HR Activity Ft Walked (ft) Time (min) Avg Speed (MPH) R/A 97 74 Resting R/A 97 103 Walking, usual pace 350 3 1.33 R/A 96 106 Walking, fastest pace 360 3 1.36 General Information Pulse Oximetry Site Total Time Spent Walking Assistance/O2 Supply Carrier Forehead 30 None NAME: NITIN Coleman PATIENT NAME: Jennifer Mcmullen DATE: October 30, 2024 TIME: 10:33 AM Comment: [facility] 10-30-2024 Procedure note Associated Ord er(s): OXIMETRY WITH AMBULATION RESPIRATORY THERAPY OXIMETRY WITH AMBULATION Oximetry with Ambulation Test for This Encounter O2 Device O2 Adapter NC O2 Flow SpO2% HR Activity Ft Walked (ft) Time (min) Avg Speed (MPH) R/A 97 74 Resting R/A 97 103 Walking, usual pace 350 3 1.33 R/A 96 106 Walking, fastest pace 360 3 1.36 General Information Pulse Oximetry Site Total Time Spent Walking Assistance/O2 Supply Carrier Forehead 30 None NAME: Suha DodsonNITIN PATIENT NAME: Jennifer Mcmullen DATE: October 30, 2024 TIME: 10:33 AM Comment: Associated Order(s): NITRIC OXIDE, EXHALED RESPIRATORY THERAPY ORAL EXHALED NITRIC OXIDE SERVICE DATE: 10/30/2024 SERVICE TIME: 10:19 AM Oral Exhaled Nitric Oxide measurement: <5.0 (ppb) Normal: Adult <25 ppb, pediatric (<12 years) <20 ppb High Normal / Increased: Adult 25-50 ppb, pediatric (<12 years) 20-35 ppb Moderately raised exhaled Nitric Oxide may indicate underlying inflammation, but note that: Cold and influenza can raise exhaled Nitric Oxide and some patients have higher baseline exhaled Nitric Oxide levels than others. High: Adult >50 ppb, pediatric (<12 years) >35 ppb Indicative of ongoing eosinophilic inflammation. Symptomatic patient likely to respond to steroids. Possible causes (if already on steroids): Poor compliance, recent allergen exposure, steroid dose inadequate, and steroid resistance. Note that not all patients with high exhaled nitric oxide levels display symptoms. Oral Exhaled Nitric Oxide measurement (Previous Encounters) Test Date Oral Exhaled Nitric Oxide (ppb) 10/30/2024 <5.0 01/22/2019 6.0 NAME: NITIN Coleman PATIENT NAME: Jennifer Mcmullen DATE: October 30, 2024 TIME: 10:19 AM documented in this encounter [facility] 10-30-2024 Note HNO ID: [id number] Author: SUHA DODSON RPFT Service: ? Author Type: Respiratory Therapist Type: Procedures Filed: 10/30/2024 10:33 Note Text: RESPIRATORY THERAPY ORAL EXHALED NITRIC OXIDE SERVICE DATE: 10/30/2024 SERVICE TIME: 10:19 AM Oral Exhaled Nitric Oxide measurement: <5.0 (ppb) Normal: Adult <25 ppb, pediatric (<12 years) <20 ppb High Normal / Increased: Adult 25-50 ppb, pediatric (<12 years) 20-35 ppb Moderately raised exhaled Nitric Oxide may indicate underlying inflammation, but note that: Cold and influenza can raise exhaled Nitric Oxide and some patients have higher baseline exhaled Nitric Oxide levels than others. High: Adult >50 ppb, pediatric (<12 years) >35 ppb Indicative of ongoing eosinophilic inflammation. Symptomatic patient likely to respond to steroids. Possible causes (if already on steroids): Poor compliance, recent allergen exposure, steroid dose inadequate, and steroid resistance. Note that not all patients with high exhaled nitric oxide levels display symptoms. Oral Exhaled Nitric Oxide measurement (Previous Encounters) Test Date Oral Exhaled Nitric Oxide (ppb) 10/30/2024 <5.0 01/22/2019 6.0 NAME: NITIN Coleman PATIENT NAME: Jennifer Mcmullen DATE: October 30, 2024 TIME: 10:19 AM [facility] 10-30-2024 Procedure note Associated Ord er(s): NITRIC OXIDE, EXHALED RESPIRATORY THERAPY ORAL EXHALED NITRIC OXIDE SERVICE DATE: 10/30/2024 SERVICE TIME: 10:19 AM Oral Exhaled Nitric Oxide measurement: <5.0 (ppb) Normal: Adult <25 ppb, pediatric (<12 years) <20 ppb High Normal / Increased: Adult 25-50 ppb, pediatric (<12 years) 20-35 ppb Moderately raised exhaled Nitric Oxide may indicate underlying inflammation, but note that: Cold and influenza can raise exhaled Nitric Oxide and some patients have higher baseline exhaled Nitric Oxide levels than others. High: Adult >50 ppb, pediatric (<12 years) >35 ppb Indicative of ongoing eosinophilic inflammation. Symptomatic patient likely to respond to steroids. Possible causes (if already on steroids): Poor compliance, recent allergen exposure, steroid dose inadequate, and steroid resistance. Note that not all patients with high exhaled nitric oxide levels display symptoms. Oral Exhaled Nitric Oxide measurement (Previous Encounters) Test Date Oral Exhaled Nitric Oxide (ppb) 10/30/2024 <5.0 01/22/2019 6.0 NAME: NITIN Coleman PATIENT NAME: Jennifer Mcmullen DATE: October 30, 2024 TIME: 10:19 AM [facility] 10-01-2024 Note Patient Outreach (IN TMWS) YAJAIRA MCMULLENJENNIFER ([id number]) 1960 F Date Time Provider Department 10/01/24 LEONID RICE During your visit today, we recorded the following information about you: Allergies As of Date: 10/01/2024 Noted Allergy Reaction LATEX 10/10/2013 9 - Itching VOLTAREN (DICLOFENAC SODIUM) 07/31/2015 14 - Other: See Comments Comments: voltaren gel causes burning sensation to area in which it is applied Date Reviewed: 09/02/2024 Reviewed by: Sanam Aragon LPN - Fully Assessed Visit Diagnosis:Encounter for screening mammogram for breast cancer [Z12.31] Order(s):[facility] SCREENING W SUE [[id number]] Order #: [id number] FUTURE Prescriptions as of 11/01/2024 - budesonide-formoterol (SYMBICORT) 160-4.5 mcg/actuation inhaler Inhale 2 puffs as instructed two times a day. - FLUoxetine (PROZAC) 20 mg capsule Take 1 capsule by mouth once daily. - topiramate (TOPAMAX) 50 mg tablet Take 1 tablet by mouth once daily. - nicotine (NICODERM CQ) 14 mg/24 hr Apply 1 patch as directed every 24 hours for 28 days. Patient should start on September 25, 2024. - nicotine (NICODERM CQ) 7 mg/24 hr Apply 1 patch as directed every 24 hours for 28 days. Patient should start on October 28, 2024. - guaiFENesin (MUCINEX) 600 mg 12 hr tablet Take 1,200 mg by mouth two times a day as needed for cold/allergy symptoms. - nicotine (NICODERM) 21 mg/24 hr once daily. - predniSONE (DELTASONE) 10 mg tablet 10 mg once daily. - ipratropium-albuterol (DUONEB) 0.5 mg-3 mg(2.5 mg base)/3 mL nebu Inhale 3 mL as instructed every 6 hours as needed for wheezing/shortness of breath. - naproxen (NAPROSYN) 500 mg tablet Take [...] as needed for wheezing/shortness of breath. - albuterol (PROVENTIL) 2.5 mg /3 mL (0.083 %) nebulizer solution Use 3 mL via nebulizer every 4 hours as needed for wheezing/shortness of breath. - Nebulizer NEBULIZER FOR HOME USE. DX: J45.41. Nebulizer and supplies. Face mask preferred. Problem List As Of Date 10/01/2024 Noted Resolved Irreducible ventral hernia [K43.6] 03/02/2011 08/17/2018 Depression [F32.A] Disc [UBB6351] 08/17/2018 Hyperglycemia [R73.9] 12/15/2018 NEGATIVE MEDICAL HISTORY [V999.96] 08/17/2018 Tobacco use [Z72.0] Family history of colon cancer [Z80.0] 01/28/2014 Epigastric abdominal pain [R10.13] 01/28/2014 Abnormality of gait [R26.9] 01/28/2014 04/02/2021 Anxiety [F41.9] 04/09/2014 Back ache [M54.9] 04/09/2014 08/17/2018 Knee pain [M25.569] 05/27/2014 08/17/2018 DDD (degenerative disc disease), lumbar [M51.36*05/27/2014 Chronic low back pain [M54.50, G89.29] 05/27/2014 Constipation [K59.00] 06/06/2014 Myofascial pain [M79.18] 10/17/2014 08/17/2018 Asthma (HCC) [J45.909] 01/15/2015 08/30/2024 Incisional pain [L76.82] 02/06/2015 08/17/2018 Bilateral low back pain without sciatica [M54.5*02/16/2015 08/17/2018 Chronic pain [G89.29] 07/31/2015 08/17/2018 Helicobacter pylori infection [A04.8] 09/12/2016 08/17/2018 Post-traumatic headache [G44.309] 01/16/2014 JOSSELIN (obstructive sleep apnea) [G47.33] 02/25/2019 Obesity, Class III, BMI >= 40 [E66.813] 04/03/2019 Prediabetes [R73.03] 04/08/2019 10/28/2020 Acute pain of left shoulder [M25.512] 08/06/2020 04/02/2021 Type 2 diabetes mellitus without complication, *09/30/2020 Screening for colon cancer [Z12.11] 09/13/2023 Chronic pain of left knee [M25.562, G89.29] 01/16/2024 Acute medial meniscus tear of left knee [S83.24*01/16/2024 08/30/2024 Nausea [R11.0] 01/18/2024 COPD with acute exacerbation (HCC) [J44.1] 08/30/2024 Asthma with chronic obstructive pulmonary disea*12/31/2021 Encounter Status:Closed by OraMetrixUSER on 11/01/24 [facility] 09-02-2024 Note HNO ID: [id number] Author: LEONID RICE MD Service: ? Author Type: Physician Type: Progress Notes Filed: 09/02/2024 16:57 Note Text: This note was created using Parallel Enginesriter. Subjective Jennifer Mcmullen is a 63 year old female here with her daughter. She had been out of fluxoetine, trazodone, and topiramate for months. [facility] and was told she had not been seen recently so she was wait listed. She was here to get medication refills. Her headaches were stable. Review of Systems Psychiatric/Behavioral: Positive for dysphoric mood. The patient is nervous/anxious. ACTIVE PROBLEM LIST Depression Tobacco Use Family History of Colon Cancer Epigastric Abdominal Pain Anxiety Ddd (Degenerative Disc Disease), Lumbar Chronic Low Back Pain Constipation Post-Traumatic Headache Josselin (Obstructive Sleep Apnea) Obesity, Class III, BMI >= 40 Type 2 Diabetes Mellitus Without Complication, Without Long-Term Current Use of Insulin (Hcc) Screening for Colon Cancer Chronic Pain of Left Knee Nausea Copd With Acute Exacerbation (Hcc) Asthma With Chronic Obstructive Pulmonary Disease (Copd) (Hcc) Social History Tobacco Use Smoking status: Every Day Current packs/day: 0.50 Average packs/day: 0.5 packs/day for 44.5 years (22.2 ttl pk-yrs) Types: Cigarettes Start date: 03/1980 Smokeless tobacco: Never Vaping Use Vaping status: Never Used Substance Use Topics Alcohol use: No Drug use: No Current Outpatient Medications Medication Sig [START ON 10/28/2024] nicotine (NICODERM CQ) 7 mg/24 hr Apply 1 patch as directed every 24 hours for 28 days. Patient should start on October 28, 2024. guaiFENesin (MUCINEX) 600 mg 12 hr tablet Take 1,200 mg by mouth two times a day as needed for cold/allergy symptoms. predniSONE (DELTASONE) 10 mg tablet 10 mg once daily. ipratropium-albuterol (DUONEB) 0.5 mg-3 mg(2.5 mg base)/3 mL nebu Inhale 3 mL as instructed every 6 hours as needed for wheezing/shortness of breath. fluticasone-salmeterol (WIXELA INHUB) 250-50 mcg/dose inhaler Inhale 1 puff as instructed two times a day. topiramate (TOPAMAX) 50 mg tablet Take 1 tablet by mouth two times a day. (Patient taking differently: Take 25 mg by mouth two times a day.) naproxen (NAPROSYN) 500 mg tablet Take 1 [...] hours as needed for wheezing/shortness of breath. FLUoxetine (PROZAC) 40 mg capsule Take 40 mg by mouth once daily. Noble Gilbert CNP at [facility]. (Patient taking differently: Take 20 mg by mouth once daily. Nolbe Gilbert CNP at the [facility].) albuterol (PROVENTIL) 2.5 mg /3 mL (0.083 %) nebulizer solution Use 3 mL via nebulizer every 4 hours as needed for wheezing/shortness of breath. traZODone (DESYREL) 100 mg tablet Take 2 tablets by mouth daily at bedtime. Noble Gilbert CNP, [facility]. Nebulizer NEBULIZER FOR HOME USE. DX: J45.41. Nebulizer and supplies. Face mask preferred. [START ON 09/25/2024] nicotine (NICODERM CQ) 14 mg/24 hr Apply 1 patch as directed every 24 hours for 28 days. Patient should start on September 25, 2024. benzonatate (TESSALON PERLE) 100 mg capsule 200 mg. (Patient not taking: Reported on 09/02/2024) nicotine (NICODERM) 21 mg/24 hr once daily. No current facility-administered medications for this visit. Objective BP 108/70 Pulse 80 Temp 36.7 ?C (98 ?F) (Temporal) Wt 94.4 kg (208 lb 1.8 oz) BMI 40.64 kg/m? Physical Exam Constitutional: General: She is not in acute distress. Appearance: She is not ill-appearing. Neurological: Mental Status: She is alert. Psychiatric: Mood and Affect: Mood normal. Behavior: Behavior normal. Assessment and Plan 1. Severe episode of recurrent major depressive disorder, without psychotic features (HCC) - ICD9: 296.33, ICD10: F33.2 (primary diagnosis) Shared medical decision making was done. I agreed to refill one medication. She recalled her dose of fluoxetine was reduced to 20 mg. - FLUOXETINE 20 MG CAPSULE 2. Anxiety - ICD9: 300.00, ICD10: F41.9 See above. She will [facility] of her management. - FLUOXETINE 20 MG CAPSULE 3. Chronic post-traumatic headache, not intractable - ICD9: 339.22, ICD10: G44.329 Stable. We agreed to reduce dose to once daily. - TOPIRAMATE 50 MG TABLET Leonid Rice MD [facility] 09-02-2024 History of Presen t illness Narrative This note was created using NoteWriter. Subjective Jennifer Mcmullen is a 63 year old female here with her daughter. She had been out of fluxoetine, trazodone, and topiramate for months. [facility] the [facility] for [facility] and was told she had not been seen recently so she was wait listed. She was here to get medication refills. Her headaches were stable. Review of Systems Psychiatric/Behavioral: Positive for dysphoric mood. The patient is nervous/anxious. ACTIVE PROBLEM LIST Depression Tobacco Use Family History of Colon Cancer Epigastric Abdominal Pain Anxiety Ddd (Degenerative Disc Disease), Lumbar Chronic Low Back Pain Constipation Post-Traumatic Headache Josselin (Obstructive Sleep Apnea) Obesity, Class III, BMI >= 40 Type 2 Diabetes Mellitus Without Complication, Without Long-Term Current Use of Insulin ([facility]) Screening for Colon Cancer Chronic Pain of Left Knee Nausea Copd With Acute Exacerbation ([facility]) Asthma With Chronic Obstructive Pulmonary Disease (Copd) ([facility]) Social History Tobacco Use Smoking status: Every Day Current packs/day: 0.50 Average packs/day: 0.5 packs/day for 44.5 years (22.2 ttl pk-yrs) Types: Cigarettes Start date: 03/1980 Smokeless tobacco: Never Vaping Use Vaping status: Never Used Substance Use Topics Alcohol use: No Drug use: No Current Outpatient Medications Medication Sig [START ON 10/28/2024] nicotine (NICODERM CQ) 7 mg/24 hr Apply 1 patch as directed every 24 hours for 28 days. Patient should start on October 28, 2024. guaiFENesin (MUCINEX) 600 mg 12 hr tablet Take 1,200 mg by mouth two times a day as needed for cold/allergy symptoms. predniSONE (DELTASONE) 10 mg tablet 10 mg once daily. ipratropium-albuterol (DUONEB) 0.5 mg-3 mg(2.5 mg base)/3 mL nebu Inhale 3 mL as instructed every 6 hours as needed for wheezing/shortness of breath. fluticasone-salmeterol (WIXELA INHUB) 250-50 mcg/dose inhaler Inhale 1 puff as instructed two times a day. topiramate (TOPAMAX) 50 mg tablet Take 1 tablet by mouth two times a day. (Patient taking differently: Take 25 mg by mouth two times a day.) naproxen (NAPROSYN) 500 mg tablet Take 1 [...] hours as needed for wheezing/shortness of breath. FLUoxetine (PROZAC) 40 mg capsule Take 40 mg by mouth once daily. Noble [facility]betr C[facility]. (Patient taking differently: Take 20 mg by mouth once daily. Noble Gilbert C[facility].) albuterol (PROVENTIL) 2.5 mg /3 mL (0.083 %) nebulizer solution Use 3 mL via nebulizer every 4 hours as needed for wheezing/shortness of breath. traZODone (DESYREL) 100 mg tablet Take 2 tablets by mouth daily at bedtime. Noble Glibert CNP, [facility]. Nebulizer NEBULIZER FOR HOME USE. DX: J45.41. Nebulizer and supplies. Face mask preferred. [START ON 09/25/2024] nicotine (NICODERM CQ) 14 mg/24 hr Apply 1 patch as directed every 24 hours for 28 days. Patient should start on September 25, 2024. benzonatate (TESSALON PERLE) 100 mg capsule 200 mg. (Patient not taking: Reported on 09/02/2024) nicotine (NICODERM) 21 mg/24 hr once daily. No current facility-administered medications for this visit. Objective BP 108/70 Pulse 80 Temp 36.7 C (98 F) (Temporal) Wt 94.4 kg (208 lb 1.8 oz) BMI 40.64 kg/m Physical Exam Constitutional: General: She is not in acute distress. Appearance: She is not ill-appearing. Neurological: Mental Status: She is alert. Psychiatric: Mood and Affect: Mood normal. Behavior: Behavior normal. Assessment and Plan 1. Severe episode of recurrent major depressive disorder, without psychotic features (HCC) - ICD9: 296.33, ICD10: F33.2 (primary diagnosis) Shared medical decision making was done. I agreed to refill one medication. She recalled her dose of fluoxetine was reduced to 20 mg. - FLUOXETINE 20 MG CAPSULE 2. Anxiety - ICD9: 300.00, ICD10: F41.9 See above. She will wait for her appointment [facility] for reevaluation of her management. - FLUOXETINE 20 MG CAPSULE 3. Chronic post-traumatic headache, not intractable - ICD9: 339.22, ICD10: G44.329 Stable. We agreed to reduce dose to once daily. - TOPIRAMATE 50 MG TABLET Leonid Rice MD documented in this encounter [facility] 09-02-2024 Telephone encounter Note Patient calls and states that she is needing alprazolam. Patient reports that she was given this medication while she was was in hospital. Patient also states that she is needing trazodone and fluoxetine. Advised patient that PCP does not prescribed this medication and she needs to call counseling center. [place] and she was unable to see provider at counseling center. Patient states that she made an appointment but it is far out and she is needing medication now. Patient states that she does not want to go back into hospital and is requesting appointment to see PCP. Patient scheduled today to see Dr. Rice. Greer Nielsen RN [facility] 09-02-2024 Miscellaneous Notes Patient calls and states that she is needing alprazolam. Patient reports that she was given this medication while she was was in hospital. Patient also states that she is needing trazodone and fluoxetine. Advised patient that PCP does not prescribed this medication and she needs to call counseling center. Patient states that she was [place] country and she was unable to see provider at counseling center. Patient states that she made an appointment but it is far out and she is needing medication now. Patient states that she does not want to go back into hospital and is requesting appointment to see PCP. Patient scheduled today to see Dr. Rice. Greer Nielsen RN documented in this encounter [facility] 08-30-2024 Note HNO ID: [id number] Author: LEONID RICE MD Service: ? Author Type: Physician Type: Progress Notes Filed: 08/30/2024 14:42 Note Text: This note was created using Parallel Enginesriter. Subjective Jennifer Mcmullen is a 63 year old female. Patient/Patient Air Filler refused site surveyor services. Her family member helped translate. She had been staying in [place] for several months due to deaths in the family. On her return, she was admitted for COPD exacarbation 08/25 to 08/28. She was discharged, but returned to the ER 08/29 for dyspnea, where she improved with nebulizers and IV Medrol. She was better, and saw pulmonary yesterday. She is trying to quit smoking. Diabetes was diet controlled. Review of Systems Constitutional: Negative for fever. Respiratory: Positive for shortness of breath. Cardiovascular: Negative for chest pain. Gastrointestinal: Negative. Neurological: Negative. Psychiatric/Behavioral: Negative. ACTIVE PROBLEM LIST Depression Tobacco Use Family History of Colon Cancer Epigastric Abdominal Pain Anxiety Ddd (Degenerative Disc Disease), Lumbar Chronic Low Back Pain Constipation Asthma (Hcc) Post-Traumatic Headache Josselin (Obstructive Sleep Apnea) Obesity, Class III, BMI >= 40 Type 2 Diabetes Mellitus Without Complication, Without Long-Term Current Use of Insulin (Hcc) Screening for Colon Cancer Chronic Pain of Left Knee Acute Medial Meniscus Tear of Left Knee Nausea Social History Tobacco Use Smoking status: Every Day Current packs/day: 0.50 Average packs/day: 0.5 packs/day for 44.5 years (22.2 ttl pk-yrs) Types: Cigarettes Start date: 03/1980 Smokeless tobacco: Never Vaping Use Vaping status: Never Used Substance Use Topics Alcohol use: No Drug use: No Current Outpatient Medications Medication Sig benzonatate (TESSALON PERLE) 100 mg capsule 200 mg. guaiFENesin (MUCINEX) 600 mg 12 hr tablet Take 1,200 mg by mouth two times a day as needed for cold/allergy symptoms. nicotine (NICODERM) 21 mg/24 hr once daily. predniSONE (DELTASONE) 10 mg tablet 10 mg once daily. ipratropium-albuterol (DUONEB) 0.5 mg-3 mg(2.5 mg base)/3 mL nebu Inhale 3 mL as instructed every 6 hours as needed for wheezing/shortness of breath. fluticasone-salmeterol (WIXELA INHUB) 250-50 mcg/dose inhaler Inhale 1 puff as instructed two times a day. topiramate (TOPAMAX) 50 mg tablet Take 1 [...] hours as needed for wheezing/shortness of breath. FLUoxetine (PROZAC) 40 mg capsule Take 40 mg by mouth once daily. [facility]. albuterol (PROVENTIL) 2.5 mg /3 mL (0.083 %) nebulizer solution Use 3 mL via nebulizer every 4 hours as needed for wheezing/shortness of breath. traZODone (DESYREL) 100 mg tablet Take 2 tablets by mouth daily at bedtime. [facility] C[facility]. Nebulizer NEBULIZER FOR HOME USE. DX: J45.41. Nebulizer and supplies. Face mask preferred. [START ON 09/25/2024] nicotine (NICODERM CQ) 14 mg/24 hr Apply 1 patch as directed every 24 hours for 28 days. Patient should start on September 25, 2024. [START ON 10/28/2024] nicotine (NICODERM CQ) 7 mg/24 hr Apply 1 patch as directed every 24 hours for 28 days. Patient should start on October 28, 2024. No current facility-administered medications for this visit. Objective BP 124/70 (BP Site: Right Arm, BP Position: Sitting, BP Cuff Size: Regular Adult) Pulse 83 Wt 94.7 kg (208 lb 12.4 oz) SpO2 95% BMI 40.77 kg/m? Physical Exam Constitutional: General: She is not in acute distress. Appearance: She is not diaphoretic. Cardiovascular: Rate and Rhythm: Normal rate and regular rhythm. Heart sounds: No murmur heard. No gallop. Pulmonary: Effort: No respiratory distress. Breath sounds: Wheezing present. No rhonchi or rales. Musculoskeletal: Right lower leg: No edema. Left lower leg: No edema. Neurological: General: No focal deficit present. Mental Status: She is alert. Assessment and Plan 1. COPD with acute exacerbation (HCC) - ICD9: 491.21, ICD10: J44.1 (primary diagnosis) - Acute exacerbation - Continue current medications - Handicap parking permit. 2. Tobacco use - ICD9: 305.1, ICD10: Z72.0 - Cessation encouraged. - NICOTINE 14 MG/24 HR DAILY TRANSDERMAL PATCH - NICOTINE 7 MG/24 HR DAILY TRANSDERMAL PATCH 3. Type 2 diabetes mellitus without complication, without long-term current use of insulin (HCC) - ICD9: 250.00, ICD10: (more content not included)... [facility] 08-30-2024 History of Presen t illness Narrative This note was created using [employer]. Subjective Jennifer Mcmullen is a 63 year old female. Patient/Patient Air Filler refused site surveyor services. Her family member helped translate. She had been staying in [place] for several months due to deaths in the family. On her return, she was admitted for COPD exacarbation 08/25 to 08/28. She was discharged, but returned to the ER 08/29 for dyspnea, where she improved with nebulizers and IV Medrol. She was better, and saw pulmonary yesterday. She is trying to quit smoking. Diabetes was diet controlled. Review of Systems Constitutional: Negative for fever. Respiratory: Positive for shortness of breath. Cardiovascular: Negative for chest pain. Gastrointestinal: Negative. Neurological: Negative. Psychiatric/Behavioral: Negative. ACTIVE PROBLEM LIST Depression Tobacco Use Family History of Colon Cancer Epigastric Abdominal Pain Anxiety Ddd (Degenerative Disc Disease), Lumbar Chronic Low Back Pain Constipation Asthma (Hcc) Post-Traumatic Headache Josselin (Obstructive Sleep Apnea) Obesity, Class III, BMI >= 40 Type 2 Diabetes Mellitus Without Complication, Without Long-Term Current Use of Insulin ([facility]) Screening for Colon Cancer Chronic Pain of Left Knee Acute Medial Meniscus Tear of Left Knee Nausea Social History Tobacco Use Smoking status: Every Day Current packs/day: 0.50 Average packs/day: 0.5 packs/day for 44.5 years (22.2 ttl pk-yrs) Types: Cigarettes Start date: 03/1980 Smokeless tobacco: Never Vaping Use Vaping status: Never Used Substance Use Topics Alcohol use: No Drug use: No Current Outpatient Medications Medication Sig benzonatate (TESSALON PERLE) 100 mg capsule 200 mg. guaiFENesin (MUCINEX) 600 mg 12 hr tablet Take 1,200 mg by mouth two times a day as needed for cold/allergy symptoms. nicotine (NICODERM) 21 mg/24 hr once daily. predniSONE (DELTASONE) 10 mg tablet 10 mg once daily. ipratropium-albuterol (DUONEB) 0.5 mg-3 mg(2.5 mg base)/3 mL nebu Inhale 3 mL as instructed every 6 hours as needed for wheezing/shortness of breath. fluticasone-salmeterol (WIXELA INHUB) 250-50 mcg/dose inhaler Inhale 1 puff as instructed two times a day. topiramate (TOPAMAX) 50 mg tablet Take 1 [...] hours as needed for wheezing/shortness of breath. FLUoxetine (PROZAC) 40 mg capsule Take 40 mg by mouth once daily. Noble [facility] C[facility]. albuterol (PROVENTIL) 2.5 mg /3 mL (0.083 %) nebulizer solution Use 3 mL via nebulizer every 4 hours as needed for wheezing/shortness of breath. traZODone (DESYREL) 100 mg tablet Take 2 tablets by mouth daily at bedtime. Noble Gilbert ETL TESTER, [facility]. Nebulizer NEBULIZER FOR HOME USE. DX: J45.41. Nebulizer and supplies. Face mask preferred. [START ON 09/25/2024] nicotine (NICODERM CQ) 14 mg/24 hr Apply 1 patch as directed every 24 hours for 28 days. Patient should start on September 25, 2024. [START ON 10/28/2024] nicotine (NICODERM CQ) 7 mg/24 hr Apply 1 patch as directed every 24 hours for 28 days. Patient should start on October 28, 2024. No current facility-administered medications for this visit. Objective BP 124/70 (BP Site: Right Arm, BP Position: Sitting, BP Cuff Size: Regular Adult) Pulse 83 Wt 94.7 kg (208 lb 12.4 oz) SpO2 95% BMI 40.77 kg/m Physical Exam Constitutional: General: She is not in acute distress. Appearance: She is not diaphoretic. Cardiovascular: Rate and Rhythm: Normal rate and regular rhythm. Heart sounds: No murmur heard. No gallop. Pulmonary: Effort: No respiratory distress. Breath sounds: Wheezing present. No rhonchi or rales. Musculoskeletal: Right lower leg: No edema. Left lower leg: No edema. Neurological: General: No focal deficit present. Mental Status: She is alert. Assessment and Plan 1. COPD with acute exacerbation (HCC) - ICD9: 491.21, ICD10: J44.1 (primary diagnosis) - Acute exacerbation - Continue current medications - Handicap parking permit. 2. Tobacco use - ICD9: 305.1, ICD10: Z72.0 - Cessation encouraged. - NICOTINE 14 MG/24 HR DAILY TRANSDERMAL PATCH - NICOTINE 7 MG/24 HR DAILY TRANSDERMAL PATCH 3. Type 2 diabetes mellitus without complication, without long-term current use of insulin (HCC) - ICD9: 250.00, ICD10: E11.9 - Diet Controlled - BASIC METABOLIC PANEL - HEMOGLOBIN A1C - ALBUMIN/CREATININE RATIO, URINE 4. Asthma with chronic obstructive pulmonary disease (COPD) ([facility]) - ICD9: 493.20, ICD10: J44.89 - Continue current medications - Continue current medications Leonid Rice MD documented in this encounter [facility] 08-29-2024 Instructions Kadie Hampton MD - 08/29/2024 2:08 PM EDT We discussed your breathing difficulties and COPD: - Continue taking the prednisone as prescribed: - 4 tablets daily for 3 days. - 3 tablets daily for 3 days. - 2 tablets daily for 3 days. - 1 tablet daily for 3 days. - I sent a prescription for nebulizer medication to your pharmacy. Use the nebulizer 4 times a day (morning, afternoon, evening, and night) until your symptoms improve. After that, you can use it on an as-needed basis. - I also prescribed an inhaler called [employer]. Use 1 puff in the morning and 1 puff in the evening. Be sure to rinse your mouth after each use. - Avoid smoking entirely to help improve your breathing and overall lung health. We discussed follow-up care: - I will schedule a follow-up appointment for you in 2 months with a doctor closer to [place]. - If your symptoms do not improve or worsen, please call our office. We discussed your asthma: - You have a history of asthma since your teenage years. The nebulizer and inhaler treatments should help manage your symptoms. If you have any questions or concerns, please contact our office. documented in this encounter [facility] 08-29-2024 Note HNO ID: [id number] Author: KADIE HAMPTON MD Service: ? Author Type: Physician Type: Progress Notes Filed: 08/29/2024 14:43 Note Text: [facility] New Patient Consult Note Patient Name: Jennifer Mcmullen PRIMARY CARE PHYSICIAN: Leonid Rice MD REFERRING PHYSICIAN: No ref. provider found Recording using [employer] software for draft documentation of the visit was discussed with the patient/authorized field support representative; all questions welcomed and answered. Patient/authorized field support representative agreed to proceed CHIEF COMPLAINT: Bronchial asthma exacerbation HISTORY OF PRESENT ILLNESS: Jennifer Mcmullen is a 63 year old female with a history of Asthma. This patient is here for first Pulmonary office visit and consultation. I reviewed available objective data including imaging as available. Patient was last seen by Dr. Henry in August 2021. Jennifer Mcmullen is a 63-year-old female with a history of asthma and DM, presenting with dyspnea and cough. She is accompanied by her daughter, who is providing additional history. Jennifer reports a 2-week history of dyspnea and cough, which has led to two recent hospital visits, including one this morning at [facility]. Patient was a recently admitted to [facility] last week with asthma/COPD exacerbation and was discharged on Monday. And also went to emergency room today morning with the worsening of shortness of breath. During her hospital visit, she was prescribed a 10-day course of prednisone. She has taken 2 doses of prednisone so far. She was also given an albuterol inhaler. She denies current production of phlegm, but notes a previous episode of phlegm production. She reports experiencing dyspnea both at rest and with ambulation, and occasionally experiences fever, but denies chills, night sweats, chest pain, palpitations, or lower extremity swelling. She has a nebulizer at home but lacks the medication for it. Jennifer has a significant smoking history, having started at the age of 10-13 years old. She recently quit smoking 3 days ago, coinciding with her hospital admission. She denies any known allergies. Gives history of obstructive sleep apnea and is on CPAP. Is compliant with CPAP PAST MEDICAL HISTORY Diagnosis Date Arthritis Asthma Chronic low back pain 05/27/2014 Work injury 2006 Depression [facility] Diabetes mellitus (HCC) Disc slipped disc [...] internal hemorrhoids. lax anal tone. Giovanna in [facility] COLONOSCOPY FLX DX W/COLLJ SPEC WHEN PFRMD 06/12/2014 Colonoscopy out pt [facility] EGD 04/10/2018 Hpylori negative - Giovanna in [facility] ESOPHAGOGASTRODUODENOSCOPY TRANSORAL DIAGNOSTIC 06/12/2014 EGD outpt [facility] HERNIA REPAIR HX 12/01/2011 TOTAL ABDOMINAL HYSTERECT W/WO RMVL TUBE OVARY 1979 fibroid FAMILY HISTORY Problem Relation Age of Onset Heart Mother 70 Diabetes Mother Hypertension Mother Asthma Mother Hypertension Father Diabetes Father Colon Cancer Father in his seventies Asthma Sister Asthma Brother Seizures Brother Coronary Artery Disease Brother [place] No reported family hx of ILD fibrosis, PAH, Tb, lung cancer, A1AT deficiency Social History Tobacco Use Smoking status: Every Day Current packs/day: 0.50 Average packs/day: 0.5 packs/day for 44.5 years (22.2 ttl pk-yrs) Types: Cigarettes Start date: 03/1980 Smokeless tobacco: Never Vaping Use Vaping status: Never Used Substance Use Topics Alcohol use: No Drug use: No Ambulatory, see vaccine HX, 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 guaiFENesin (MUCINEX) 600 mg 12 hr tablet Take 1,200 mg by mouth two times a day as needed for cold/allergy symptoms. ALPRAZolam (XANAX) 2 mg tablet Take by mouth. nicotine (NICODERM) 21 mg/24 hr once daily. predniSONE (DELTASONE) 10 mg tablet 10 mg once daily. topiramate (TOPAMAX) 50 mg tablet Take 1 tablet by mouth two times a day. naproxen (NAPROSYN) 500 mg tablet Take 1 tablet by mouth two times a day as needed for pain (for pain/inflammation). Take with food. blood sugar diagnostic (BLOOD GLUCOSE TEST) test strip Test blood sugar(s) 1 times daily. Dx: Type 2 DM - Cont (more content not included)... [facility] 08-29-2024 History of Presen t illness Narrative Images from the original note were not included. [facility] New Patient Consult Note Patient Name: Jennifer Mcmullen PRIMARY CARE PHYSICIAN: Leonid Rice MD REFERRING PHYSICIAN: No ref. provider found Recording using ambient AI software for draft documentation of the visit was discussed with the patient/authorized field support representative; all questions welcomed and answered. Patient/authorized field support representative agreed to proceed CHIEF COMPLAINT: Bronchial asthma exacerbation HISTORY OF PRESENT ILLNESS: Jennifer Mcmullen is a 63 year old female with a history of Asthma. This patient is here for first Pulmonary office visit and consultation. I reviewed available objective data including imaging as available. Patient was last seen by Dr. Henry in August 2021. Jennifer Mcmullen is a 63-year-old female with a history of asthma and DM, presenting with dyspnea and cough. She is accompanied by her daughter, who is providing additional history. Jennifer reports a 2-week history of dyspnea and cough, which has led to two recent hospital visits, including one this morning at [facility]. Patient was a recently admitted to [facility] last week with asthma/COPD exacerbation and was discharged on Monday. And also went to emergency room today morning with the worsening of shortness of breath. During her hospital visit, she was prescribed a 10-day course of prednisone. She has taken 2 doses of prednisone so far. She was also given an albuterol inhaler. She denies current production of phlegm, but notes a previous episode of phlegm production. She reports experiencing dyspnea both at rest and with ambulation, and occasionally experiences fever, but denies chills, night sweats, chest pain, palpitations, or lower extremity swelling. She has a nebulizer at home but lacks the medication for it. Jennifer has a significant smoking history, having started at the age of 10-13 years old. She recently quit smoking 3 days ago, coinciding with her hospital admission. She denies any known allergies. Gives history of obstructive sleep apnea and is on CPAP. Is compliant with CPAP PAST MEDICAL HISTORY Diagnosis Date Arthritis Asthma Chronic low back pain 05/27/2014 Work injury 2006 Depression [facility] Diabetes mellitus (HCC) Disc slipped disc in back Fracture of right ankle Head injury Helicobacter pylori infection 09/12/2016 Hernia, hiatal Hyperglycemia 2010 Insomnia JOSSELIN (obstructive sleep apnea) 02/25/2019 Post-traumatic headache 01/16/2014 Postmenopausal Prediabetes 04/08/2019 PTSD (post-traumatic stress disorder) Tobacco use PAST SURGICAL HISTORY Procedure Laterality Date APPENDECTOMY 2012 [place] SECTION HX 1980 x 2 CHOLECYSTECTOMY 1989 COLONOSCOPY 01/10/2018 Random bx neg. internal hemorrhoids. lax anal tone. Giovanna in [facility] COLONOSCOPY FLX DX W/COLLJ SPEC WHEN PFRMD 06/12/2014 Colonoscopy out pt [facility] EGD 04/10/2018 Hpylclementine negative - [facility] ESOPHAGOGASTRODUODENOSCOPY TRANSORAL DIAGNOSTIC 06/12/2014 EGD outpt [facility] HERNIA REPAIR HX 12/01/2011 TOTAL ABDOMINAL HYSTERECT W/WO RMVL TUBE OVARY 1980 fibroid FAMILY HISTORY Problem Relation Age of Onset Heart Mother 70 Diabetes Mother Hypertension Mother Asthma Mother Hypertension Father Diabetes Father Colon Cancer Father in his seventies Asthma Sister Asthma Brother Seizures Brother Coronary Artery Disease Brother [place] No reported family hx of ILD fibrosis, PAH, Tb, lung cancer, A1AT deficiency Social History Tobacco Use Smoking status: Every Day Current packs/day: 0.50 Average packs/day: 0.5 packs/day for 44.5 years (22.2 ttl pk-yrs) Types: Cigarettes Start date: 03/1980 Smokeless tobacco: Never Vaping Use Vaping status: Never Used Substance Use Topics Alcohol use: No Drug use: No Ambulatory, see vaccine HX, 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 guaiFENesin (MUCINEX) 600 mg 12 hr tablet Take 1,200 mg by mouth two times a day as needed for cold/allergy symptoms. ALPRAZolam (XANAX) 2 mg tablet Take by mouth. nicotine (NICODERM) 21 mg/24 hr once daily. predniSONE (DELTASONE) 10 mg tablet 10 mg once daily. topiramate (TOPAMAX) 50 mg tablet [...] J45.41. Nebulizer and supplies. Face mask preferred. PHYSICAL EXAMINATION: VITAL SIGNS: BP 115/76 Pulse 81 Ht 5' 0 (1.52m) Wt 210 lb (95.3kg) SpO2 65% BMI 41.01 kg/(m^2). General appearance: well appearing, alert, and in no acute distress Skin: skin color, texture, turgor normal, no rashes or lesions Eyes: Anicteric sclera. Pupils are equally round and reactive to light. Extraocular movements are intact. ENT: No oral or nasal erythema, bleeding, lesions, striae Heme/Lymph:Negative Lungs: Bilateral diminished breath sounds and wheezing Heart: RRR without murmur, gallop, or rubs. No ectopy GI: Normal abdominal exam Extremities: No deformities, edema, skin discoloration, clubbing or cyanosis. Good capillary refill. Neuro: Gait normal. Reflexes normal and symmetric. Sensation grossly intact. LAST LAB RESULTS: Labs: CBC with diff: WBC 8.99 12/01/2023 RBC 5.05 12/01/2023 Hemoglobin 14.7 12/01/2023 Hematocrit 45.8 12/01/2023 MCV 90.7 12/01/2023 MCH 29.1 12/01/2023 MCHC 32.1 12/01/2023 RDW-CV 13.0 12/01/2023 Platelet Count 221 12/01/2023 MPV 11.3 12/01/2023 Neut% 51.1 12/01/2023 Lymph% 37.9 12/01/2023 [place]% 7.9 12/01/2023 Eosin% 2.3 12/01/2023 Baso% 0.4 12/01/2023 Abs Neut (ANC) 4.58 12/01/2023 Abs [place] 0.71 12/01/2023 Abs Eosin 0.21 12/01/2023 Abs Baso 0.04 12/01/2023 DATA: Diagnostic tests reviewed for today's visit, films/specimens were personally reviewed by me: OTHER TESTING: Echo: Chest xray:08/25/2024: Mild bilateral basilar atelectatic pulmonary changes. There is no demonstrated pleural abnormality. Enlarged cardiac silhouette. Normal mediastinum and janel. Normal visualized pulmonary arteries. Atheromatous plaques of the visualized aortic arch and descending thoracic aorta. Diffuse spondylosis of the visualized thoracic spine. Normal visualized ribs, clavicles. Degenerative joint disease. There is no demonstrated abnormality of the visualized soft tissue structures ofthe upper abdomen. RAD/Chest PA and Lateral IMPRESSION: Mild bilateral basilar atelectatic pulmonary changes. Reading [facility] CC: Dr. Leonid Rice MD; Lauri Fisher DO ~ Drafter Patent: Signed CT CHEST:12/2023: LungRADS category: 1 LungRADS modifier: None LungRADS 0 reason: n/a Recommendations: Continue annual screening with LDCT in 12 months. PFT:2019: IMPRESSION: Spirometry shows no obstruction. The reduced FVC suggests moderate restriction. Recommend lung volumes if clinically indicated. The diffusing capacity is normal. The TLC is moderately reduced indicating restriction. Sleep study:2019: IMPRESSIONS: 1. Asthma with COPD with exacerbation ([facility]) (J44.1) Recent exacerbation with dyspnea, wheezing, and cough. Hospitalized at [facility]; chest X-ray and labs showed no significant abnormalities. Discharged home on 25 August and went back to the emergency room today with worsening of shortness of breath.. Currently on a prednisone taper and using albuterol inhaler. Has a history of asthma diagnosed in adolescence. - Educated patient on prednisone taper: 4 tablets daily for 3 days, 3 tablets daily for 3 days, 2 tablets daily for 3 days, and 1 tablet daily for 3 days. - Prescribed nebulizer medication to be used QID until symptoms improve, then PRN. -Was on Breo in the past but stopped using it as she did not notice any improvement. - Prescribed wixela inhaler, 1 puff BID; instructed to rinse mouth after use. - Ordered pulmonary function tests. - Follow-up appointment scheduled in 2 months with a sugar cane planter in [place]. 2. Moderate smoker (20 or less per day) (F17.210) Recently quit smoking 3 days ago after hospitalization. Has a long history of smoking, starting at age 10-13, with a previous consumption of up to one pack per day. - Advised to continue abstaining from smoking. 3.JOSSELIN on CPAP [G47.33] : Is on CPAP and is compliant with CPAP Kadie Hampton MD Medications reviewed Education provided today regarding the stated disease states Patient Instructions: See AVS Written and verbal health teaching given to patient, patient verbalizes understanding and agrees with treatment plan. Followup discussed. Electronically Signed: Kadie Hampton MD August 29, 2024 documented in this encounter [facility] 08-29-2024 Radiology Diagnostic study note [facility] Imaging Services [address] [place], [place] [address] Chest PA and Lateral MR#: [id number] Acct: [id number] Name: JENNIFER RIVAS Rep #: [id number] : 1960 F 63 From: Brennon Clement MD PCP: Dr. Leonid Rice MD Status: R EG ER Study:Chest PA and Lateral Date of Exam: 08/29/24 Exam# [id number] Ordering Dr: Falguni Fisher DO PROCEDURE: CHEST PA AND LATERAL 08/29/2024 REASON FOR EXAM: DYSPNEA TECHNIQUE: CHEST PA AND LATERAL COMPARISON: CT scan on 08/25/2024. FINDINGS: Mild bilateral basilar atelectatic pulmonary changes. There is no demonstrated pleural abnormality. Enlarged cardiac silhouette. Normal mediastinum and janel. Normal visualized pulmonary arteries. Atheromatous plaques of the visualized aortic arch and descending thoracic aorta. Diffuse spondylosis of the visualized thoracic spine. Normal visualized ribs, clavicles. Degenerative joint disease. There is no demonstrated abnormality of the visualized soft tissue structures ofthe upper abdomen. RAD/Chest PA and Lateral IMPRESSION: Mild bilateral basilar atelectatic pulmonary changes. Reading Location: [place] [address] CC: Dr. Leonid Rice MD; DO Sapphire Toro Drafter Patent: Signed [facility] 08-28-2024 Discharge summary Note Date/Time August 28, 2024 12:48pm [facility] Medical Records Department [address] [place] [address] Instructions for Home/Discharge Instructions 08/28/24 1140 MR#: [id number] Acct: [id number] Name: JENNIFER RIVAS Rep #:[id number] : 1960 63 From: Aclon Stephens PCP: Dr. Leonid Rice MD Status:A [...] Restrictions: Patient needs to follow-up with the sugar cane planter for PFT and noninvasive pulmonary function test [...] DO; Dr. Leonid Rice MD ~ Signed [facility] Work Phone: 1(986) 228-976206-18-[address] [facility] Medical Records Department [address] [place] [address] Instructions for Home/Discharge Instructions 08/28/24 1140 MR#: [id number] Acct: [id number] Name: JENNIFER RIVAS Rep #:[id number] : 1960 63 From: Alcon Stephens PCP: [...] Restrictions: Patient needs to follow-up with the sugar cane planter for PFT and noninvasive pulmonary function test [...] DO; Dr. Leonid Rice MD ~ Signed [facility]06-18-2025 [facility] Medical Records Department [address] [place] [address] Discharge Summary 08/28/24 1248 MR#: [id number] Acct: [id number] Name: JENNIFER RIVAS Rep #: [id number] : 1960 63 From: Alcon Cr MD PCP: Dr. Leonid Rice MD Status:DIS SO Location: [place] [address] Providers Date of Admission: 08/25/24 Date of Discharge: 08/28/24 Primary Care Physician: Dr. Leonid Rice MD Reason For Visit: ACUTE EXACERBATION OF COPD Diagnosis Discharge Diagnosis (1) Acute dyspnea: Status: Acute Code(s): R06.00 - Dyspnea, unspecified (2) Viral pneumonia: Status: Acute Code(s): J12.9 - Viral pneumonia, unspecified (3) Tachypnea: Status: Acute Code(s): R06.82 - Tachypnea, not elsewhere classified (4) Tobacco abuse: Status: Inactive Code(s): Z72.0 - Tobacco use (5) COPD with acute exacerbation: Status: Chronic Code(s): J44.1 - Chronic obstructive pulmonary disease with (acute) exacerbation Plan Patient is 63-year-old female admitted for [...] treatment. Pulse ox 95% on room air. 08/28: Patient currently on room air. Home oxygen qualification test ordered. Prescription given for tapering dose of prednisone, Mucinex and Tessalon Perles. Patient does not require oxygen. COPD - Patient is not oxygen dependent at baseline. Currently she not following neurologist - Recommend outpatient follow-up with pulmonary medicine - Patient would benefit from outpatient PFTs and 6-minute walk test 08/28, advised to follow with sugar cane planter for the reasons mentioned above. GERD - Patient is currently not on [...] Full code as verified prior to admission Discharge medication reconciliation done. Discharge follow-up instructions completed. Discharge process discussed with the patient and all questions were answered to patient's satisfaction. Follow with PCP in 1 to 2 weeks Total time spent, exact 35 minutes on discharge meds reconciliation, examination, coordination of care with nurses and ancillary staff, review of imaging and blood test and discussion with the patient on follow-up instructions. Medications at Discharge Home Medications fluoxetine 20 mg capsule 20 mg PO QHS 03/24/15 topiramate 25 mg tablet (Topamax) 25 mg PO QHS 03/24/15 trazodone 100 mg tablet 200 mg PO QHS 03/24/15 albuterol sulfate 90 mcg/actuation aerosol inhaler (ProAir HFA) 2 puff inhalation Q4H PRN PRN Sob /Or Wheezing ##1 03/25/15 budesonide 180 mcg/actuation breath activated powder inhaler (Pulmicort Flexhaler) 1 puff inhalation BID ##1 03/25/15 benzonatate 200 mg capsule 200 mg PO TID PRN cough #30 caps 08/28/24 guaifenesin 1,200 mg tablet, extended release 12 hr (Mucus Relief ER) 1,200 mg PO BID 7 days #14 tabs 08/28/24 nicotine 21 mg/24 hr daily transdermal patch 21 mg transdermal DAILY 28 days #28 ea 08/28/24 prednisone 10 mg tablet 10 mg PO DAILY #30 tabs 08/28/24 Physical Exam Narrative Seen and examined. Shortness of breath is better. Mild wheezing but cough is better. Physical exam General: Alert, Oriented x3, Cooperative. Obesity grade 3 BMI 40.6 kg/m??? HEENT: Atraumatic, PERRLA, EOMI, Normocephalic. Oral: No Gingival or Mucosal Lesions/ Ulcerations Neck: Supple, No JVD, Negative Carotid Bruits Chest wall/Lungs: Air entry diminished in all lung hernandez. Bilateral coarse wheezing and rho (more content not included)...[facility] 08-27-2024 Progress note Author Alcon Cr [facility] Note Date/Time August 27, 2024 2:[address] [facility] Medical Records Department [address] [place] [address] Progress Note - Hospitalist 08/27/24 1448 MR#: [id number] Acct: [id number] Name: JENNIFER RIVAS Rep #:[id number] : 1960 63 From: Alcon Stephens PCP: Dr. Leonid Rice MD Status:A DM SO Location: [place] [address] Reason for Visit Reason for Visit: Diagnoses [...] 95 Room Air 1 08/27/24 14:25 08/27/24 14:08/27/24 14:25 08/27/24 14:25 08/27/24 14:25 08/27/24 14:08/26/24 14:04 Oxygen Flow Rate (L/min) 1 Oxygen [...] to admission Charges/Coding Visit Charges Inpatient E&M: 59484 Subs Hosp L2 08/27/24 1451 <Electronically signed by Alcon Cr MD> Cosigner Signature (if applicable): CC: ~ Signed [facility] Work Phone: 1([phone]) 305-448106-17-[address] [facility] Medical Records Department [address] [place] [address] Progress Note - Hospitalist 08/27/24 1448 MR#: [id number] Acct: [id number] Name: JENNIFER RIVAS Rep #:[id number] : 1960 63 From: Alcon Stephens PCP: Dr. Leonid Rice MD Status:A DM SO Location: [place]3 IV469-8 Reason for Visit Reason for Visit: Diagnoses [...] 08/27/24 14:25 08/27/24 14:25 08/27/24 14:25 08/27/24 14:08/26/24 14:04 Oxygen Flow Rate (L/min) 1 Oxygen [...] to admission Charges/Coding Visit Charges Inpatient E&M: 33432 Subs Hosp L2 08/27/24 1458 Cosigner Signature (if applicable): CC: ~ Signed [facility]06-16-2025 Progress note Author Alcon Cr [facility] Note Date/Time August 26, 2024 4:28 pm [facility] Medical Records Department [address] [place] [address] Progress Note - Hospitalist 08/26/24 1131 MR#: [id number] Acct: [id number] Name: JENNIFER RIVAS Rep #:[id number] : 1960 63 From: Alcon Stephens PCP: Dr. Leonid Rice MD Status:A DM SO Location: [place]3 NP671-6 Reason for Visit Reason for Visit: Diagnoses [...] % (Auto) 57.1, Lymph % (Auto) 27.7, [place] % (Auto) 10.7 H, Eos % (Auto) [...] 82.5 H, Lymph % (Auto) 15.4 L, [place] % (Auto) 1.1, Eos % (Auto) 0.0, [...] vascular congestion. No focal consolidations. Reading Location: [id number] Chest CTA 08/25/24 17:40 IMPRESSION: No acute process. Reading Location: [facility] Physical Exam Narrative Seen and examined. History taken from the patient and her daughter who is bilingual. Patient is mainly Serbian-speaking. She stated she is short of breath, [...] to admission Charges/Coding Visit Charges Inpatient E&M: 06889 Subs Hosp L2 08/26/24 1628 <Electronically signed by Alcon Cr MD> Cosigner Signature (if applicable): CC: ~ Signed [facility] Work Phone: 1(347) 449-734606-16-[address] [facility] Medical Records Department [address] [place] [address] Progress Note - Hospitalist 08/26/24 1131 MR#: [id number] Acct: [id number] Name: JENNIFER RIVAS Rep #:[id number] : 1960 63 From: Alcon Stephens PCP: Dr. Leonid Rice MD Status:A DM SO Location: [place] [address] Reason for Visit Reason for Visit: Diagnoses [...] % (Auto) 57.1, Lymph % (Auto) 27.7, [place] % (Auto) 10.7 H, Eos % (Auto) [...] 82.5 H, Lymph % (Auto) 15.4 L, [place] % (Auto) 1.1, Eos % (Auto) 0.0, Baso % (Auto) 0.1, Absolute Neuts (auto) 6.3, Absolute Lymphs (auto) 1.17, Nucleated RBC % 0, Sodium 139, Potassium 3.7, [id number], Carbon Dioxide 23.6, Anion Gap 11, BUN [...] vascular congestion. No focal consolidations. Reading Location: [id number] Chest CTA 08/25/24 17:40 IMPRESSION: No acute process. Reading Location: [facility] Physical Exam Narrative Seen and examined. History taken from the patient and her daughter who is bilingual. Patient is mainly Serbian-speaking. She stated she is short of breath, [...] to admission Charges/Coding Visit Charges Inpatient E&M: 17556 Subs Hosp L2 08/26/24 1628 Cosigner Signature (if applicable): CC: ~ Signed [facility]06-16-2025 Discharge summary Author Zachery Jesus [facility] Note Date/Time August 26, 2024 12:1 3am [facility] Medical Records Department [address] [place] [address] Emergency Department Summary 08/25/24 MR#: [id number] Acct: [id number] Name: JENNIFER RIVAS Rep #:[id number] : 1960 63 From: Zachery Saavedra PCP: Dr. Leonid Rice MD Status:A DM SO Location: [place]3 [id number] HPI History of Present Illness Chief Complaint: Abd Pain Informant: patient Narrative Narrative: 63-year-old female presenting to the emergency room with chief complaint of shortness of breath. Patient states she has a history of asthma. She states she is not currently on any medications. She states that her father and then her brother was found in the home. She had to travel to [place] where she has been taking care of family affairs and the . She states that for the past week she has had a progressive worsening shortness of breath and intermittent fevers cough with occasional sputum production. She also notesan epigastric discomfort particularly with eating. She states that the hot weather in [place] does not agree with her health. She returned home today and came to the emergency department. She does not wear supplemental oxygen at home. She denies history of coronary artery disease or congestive heart failure. She is a smoker. [facility] Medical History Tobacco abuse GERD (gastroesophageal reflux [...] we will observe her in the hospital [facility] for asthma exacerbation. Hospitalist was contacted [...] % (Auto) 57.1 Lymph % (Auto) 27.7 [place] % (Auto) 10.7 H Eos % (Auto) [...] vascular congestion. No focal consolidations. Reading Location: [facility] Chest CTA 08/25/24 17:40 IMPRESSION: No acute process. Reading [facility] Initial EKG: Attestation: I personally reviewed and interpreted this EKG as follows: Comments: Normal sinus rhythm ventricular rate of 80 bpm Management Discussion w/another healthcare provider: Hospitalist (Dr. Caro) Discharge Plan Dx/Rx/DC Orders Clinical Impression: Asthma exacerbation, Acute dyspnea Disposition Disposition: Acute Care Hospital [facility] Discharge Date/Time: 08/25/24 21:43 What to do if you have Problems For any increased pain, shortness of breath, bleeding, nausea or vomiting, chestpain, or any unexpected problems, contact your Primary Care Provider. Call [facility] ([phone]) or report to the closest Emergency Room. Call 911 if necessary. 08/26/24 0013 <Electronically signed by Zachery Jesus DO> Cosigner Signature (if applicable): CC: Dr. Leondi Rice MD ~ Signed [facility] Work Phone: 1([phone]) 430-592606-16-[address] [facility] Medical Records Department [address] [place] [address] Emergency Department Summary 08/25/24 MR#: [id number] Acct: [id number] Name: JENNIFER RIVAS Rep #:[id number] : 1960 63 From: Zachery Saavedra PCP: Dr. Leonid Rice MD Status:A DM SO Location: [place] [address] HPI History of Present Illness Chief Complaint: Abd Pain Informant: patient Narrative Narrative: 63-year-old female presenting to the emergency room with chief complaint of shortness of breath. Patient states she has a history of asthma. She states she is not currently on any medications. She states that her father and then her brother was found in the home. She had to travel to [place] where she has been taking care of family affairs and the . She states that for the past week she has had a progressive worsening shortness of breath and intermittent fevers cough with occasional sputum production. She also notesan epigastric discomfort particularly with eating. She states that the hot weather in [place] does not agree with her health. She returned home today andcame to the emergency department. She does not wear supplemental oxygen at home. She denies historyof coronary artery disease or congestive heart failure. She is a smoker. [facility] Medical History Tobacco abuse GERD (gastroesophageal reflux [...] % (Auto) 57.1 Lymph % (Auto) 27.7 [place] % (Auto) 10.7 H Eos % (Auto) [...] vascular congestion. No focal consolidations. Reading Location: [id number] Chest CTA 08/25/24 17:40 IMPRESSION: No acute process. Reading Location: [facility] EKG Initial EKG: Attestation: I personally reviewed and interpreted this EKG as follows: Comments: Normal sinus rhythm ventricular rate of 80 bpm Management Discussion w/another healthcare provider: Hospitalist (Dr. Caro) Discharge Plan Dx/Rx/DC Orders Clinical Impression: Asthma exacerbation, Acute dyspnea Disposition Disposition: Acute Care Hospital [facility] Discharge Date/Time: 08/25/24 21:43 What to do if you have Problems For any increased pain, shortness of breath, bleeding, nausea or vomiting, chestpain, or any unexpected problems, contact your Primary Care Provider. Call [facility] ([phone]) or report tothe closest Emergency Room. Call 911 if necessary. 08/26/24 0013 Cosigner Signature (if applicable): CC: Dr. Leonid Rice MD ~ Signed [facility]06-15-2025 History and physical note Author Modesta Caro [facility] Note Date/Time August 25, 2024 9:[address] [facility] Medical Records Department [address] [place] [address] H&P Exam - Hospitalist 08/25/242031 MR#: [id number] Acct: [id number] Name: JENNIFER RIVAS Rep #:[id number] : 1960 63 From: Modesta Caro DO PCP: Dr. Leonid Rice MD Status:A DM SO Location: [address] HPI - General General Date of Admission: 08/25/24 Date of Service: 08/25/24 Chief Complaint: Cough and shortness of breath HPI Narrative JENNIFER MCMULLEN, is a 63 F who presented to the emergency department at [facility] on 08/25/2024 due to chief complaint of cough and shortness of breath. Patient has a history of COPD and asthma and currently still smokes tobacco. She states her father and then her brother was founddead in his home. She has been traveling back and forth from [place] takingcare of family affairs and the . [...] with anticipated hospitalization less than 2 midnights. [facility] Medical History Tobacco abuse GERD (gastroesophageal [...] % (Auto) 57.1, Lymph % (Auto) 27.7, [place] % (Auto) 10.7 H, Eos % (Auto) [...] vascular congestion. No focal consolidations. Reading Location: [id number] Chest CTA 08/25/24 17:40 IMPRESSION: No acute process. Reading [facility] Assessment & Plan Assessment/Plan (1) Acute dyspnea: [...] to admission Charges/Coding Visit Charges Inpatient E&M: 63752 Init Hosp L2 08/25/24 2134 <Electronically signed by Modesta Caro DO> Cosigner Signature (if applicable): CC: Dr. Modesta Caro DO; Dr. Leonid Rice MD~ Signed [facility] Work Phone: 1([phone]) [phone] Evaluation note* Diagnosis Onset Date Resolution Status Admit Date Acute dyspnea acute August 25, 2024 8:53pm Asthma exacerbation acute August 25, 2024 8:53pm Tachypnea acute August 25 8:53pm Viral pneumonia acute August 8:53pm COPD with acute exacerbation chronic August 25, 2024 8:53pm Tobacco abuse inactive August 25, 2024 8:53pm [facility] Work Phone: 1(446) 593-469706-15-[address] [facility] Medical Records Department [address] [place] [address] H&P Exam - Hospitalist 08/25/242031 MR#: [id number] Acct: [id number] Name: JENNIFER RIVAS Rep #:[id number] : 1960 63 From: Modesta Caro DO PCP: Dr. Leonid Rice MD Status:A DM SO Location: [place] [address] HPI - General General Date of Admission: 08/25/24 Date of Service: 08/25/24 Chief Complaint: Cough and shortness of breath HPI Narrative JENNIFER MCMULLEN, is a 63 F who presented to the emergency department at [facility] on 08/25/2024 due to chief complaint of cough and shortness of breath. Patient has a history of COPD and asthma and currently still smokes tobacco. She states her father and then her brother was founddead in his home. She has been traveling back and forth from [place] takingcare of family affairs and the . [...] with anticipated hospitalization less than 2 midnights. [facility] Medical History Tobacco abuse GERD (gastroesophageal [...] % (Auto) 57.1, Lymph % (Auto) 27.7, [place] % (Auto) 10.7 H, Eos % (Auto) [...] vascular congestion. No focal consolidations. Reading Location: [id number] Chest CTA 08/25/24 17:40 IMPRESSION: No acute process. Reading [facility] Assessment & Plan Assessment/Plan (1) Acute dyspnea: [...] to admission Charges/Coding Visit Charges Inpatient E&M: 60948 Init Hosp L2 08/25/24 2137 Cosigner Signature (if applicable): CC: Dr. Modesta Caro DO; Dr. Leonid Rice MD~ Signed [facility]06-15-2025 Radiology Diagnostic study note [facility] Imaging Services [address] [place], [place] [address] CTA Chest W/WO Contrast MR#: [id number] Acct: [id number] Name: JENNIFER RIVAS Rep #: [id number] : 1960 F 63 From: Rm Orellana DO PCP: Dr. Leonid Rice MD Status: R EG ER Study:CTA Chest W/WO Contrast Date of Exam: 08/25/24 Exam# [id number] Ordering Dr: Angelo Jesus DO PROCEDURE: CTA [...] Contrast IMPRESSION: No acute process. Reading Location: JOEL CC: Dr. Zachery Jesus DO; Dr. Leonid Rice MD ~ Drafter Patent: Signed [facility]06-15-2025 Radiology Diagnostic study note [facility] Imaging Services [address] [place], [place] [id number] Chest 1 View (Portable) MR#: [id number] Acct: [id number] Name: JENNIFER RIVAS Rep #: [id number] : 1960 F 63 From: Araceli Yeh MD PCP: Dr. Leonid Rice MD Status: R EG ER Study:Chest 1 View (Portable) Date of Exam: 08/25/24 Exam# [id number] Ordering Dr: Angelo Jesus DO PROCEDURE: CHEST 1 VIEW (PORTABLE) 08/25/2024 REASON FOR EXAM: DYSPNEA TECHNIQUE: Frontal view of the chest. COMPARISON: 01/26/2023 FINDINGS: Mild pulmonary vascular congestion. No focal consolidations. No pleural effusion or pneumothorax. Cardiac silhouette is unchanged. No acute fractures. RAD/Chest 1 View (Portable) IMPRESSION: Mild pulmonary vascular congestion. No focal consolidations. Reading Location: [id number] CC: Dr. Zachery Jesus DO; Dr. Leonid Rice MD ~ Drafter Patent: Signed [facility]06-15-2025 Evaluation note* Diagnosis Onset Date Resolution Status Admit Date Acute dyspnea acute August 25, 2024 8:53pm Asthma exacerbation acute August 25, 2024 8:53pm Tachypnea acute August 25 8:53pm Viral pneumonia acute August 8:53pm COPD with acute exacerbation chronic August 25, 2024 8:53pm Tobacco abuse inactive August 25, 2024 8:53pm [facility] Work Phone: 1(417) 124-916611-07-2024 Note* Discharge Instr - Nursing - Amira Wiggins RN - 01/18/2024 9:27 AM EST The patient received a copy of EGD discharge instructions that contain information for how to contact the physician who performed the procedure and when to seek medical care. [facility]11-07-2024 Miscellaneous Notes* Discharge Instr - Nursing - Amira Wiggins, HEIDE - 01/18/2024 9:27 AM EST The patient received a copy of EGD discharge instructions that contain information for how to contact the physician who performed the procedure and when to seek medical care. documented in this encounterSalem [facility]11-07-[facility]24 Nurse Note* Amira Wiggins RN - 01/18/2024 9:24 AM EST pt arrived to phase 2 resting on left side. Daughter at bedside. SR up x 2, call light in reach. Amira Wiggins RN [facility]11-07-2024 Nurse Note* Amira Wigigns RN - 01/18/2024 9:24 AM EST pt arrived to phase 2 resting on left side. Daughter at bedside. SR up x 2, call light in reach. Amira Wiggins RN documented in this encounterSalem City Hospital11-07-2024 History and physical note * Zachery Toussaint [...] back pain 05/27/2014 Work injury 2006 Depression [facility] Diabetes mellitus (HCC) Disc slipped disc in back Fracture of right ankle Head injury Helicobacter pylori infection 09/12/2016 Hernia, hiatal Hyperglycemia 2010 Insomnia JOSSELIN (obstructive sleep apnea) 02/25/2019 Post-traumatic headache 01/16/2014 Postmenopausal Prediabetes 04/08/2019 PTSD (post-traumatic stress disorder) Tobacco use PAST SURGICAL HISTORY PAST SURGICAL HISTORY Procedure Laterality Date APPENDECTOMY 2012 [place] SECTION HX 1980 x 2 CHOLECYSTECTOMY 1989 COLONOSCOPY 01/10/2018 Random bx neg. internal hemorrhoids. lax anal tone. Giovanna in [facility] COLONOSCOPY FLX DX W/COLLJ SPEC WHEN PFRMD 06/12/2014 Colonoscopy out pt [facility] EGD 04/10/2018 Hpylori negative - [facility] in [facility] ESOPHAGOGASTRODUODENOSCOPY TRANSORAL DIAGNOSTIC 06/12/2014 EGD outpt [facility] HERNIA REPAIR HX 12/01/2011 TOTAL ABDOMINAL [...] by mouth daily at bedtime. Noble Gilbert, ETL TESTER[facility]. tiotropium bromide (SPIRIVA RESPIMAT) 2.5 [...] once daily. Noble Gilbert CNP at the [facility]. (Patient not taking: Reported on [...] Brother Seizures Brother Coronary Artery Disease Brother [place] REVIEW OF SYMPTOMS: The review of systems [...] discussed with the Patient or Patient's Authorized Air Filler. Asapplicable, any other physician, advance practice provider, medical student, or other health professional student that will be observing or involved in the sensitive examination for educational or training purposes was discussed with the Patient or Authorized Air Filler. The Patient or Authorized Air Filler has agreed to proceed with the sensitive [...] Zachery Toussaint III, MD PATIENT NAME: Jennifer Kearneyentin DATE: January 18, 2024 TIME: 9:11 AM [facility]11-07-2024 History and physical note* Zachery Toussaint MD [...] back pain 05/27/2014 Work injury 2006 Depression [facility] Diabetes mellitus (HCC) Disc slipped disc in back Fracture of right ankle Head injury Helicobacter pylori infection 09/12/2016 Hernia, hiatal Hyperglycemia 2010 Insomnia JOSSELIN (obstructive sleep apnea) 02/25/2019 Post-traumatic headache 01/16/2014 Postmenopausal Prediabetes 04/08/2019 PTSD (post-traumatic stress disorder) Tobacco use PAST SURGICAL HISTORY PAST SURGICAL HISTORY Procedure Laterality Date APPENDECTOMY 2012 [place] SECTION HX 1979 x 2 CHOLECYSTECTOMY 1989 COLONOSCOPY 01/10/2018 Random bx neg. internal hemorrhoids. lax anal tone. [facility] COLONOSCOPY FLX DX W/COLLJ SPEC WHEN PFRMD 06/12/2014 Colonoscopy out pt [facility] EGD 04/10/2018 Hpylori negative - [facility] ESOPHAGOGASTRODUODENOSCOPY TRANSORAL DIAGNOSTIC 06/12/2014 EGD outpt [facility] HERNIA REPAIR HX 12/01/2011 TOTAL ABDOMINAL [...] Brother Seizures Brother Coronary Artery Disease Brother [place] REVIEW OF SYMPTOMS: The review of systems [...] discussed with the Patient or Patient's Authorized Air Filler. Asapplicable, any other physician, advance practice provider, medical student, or other health professional student that will be observing or involved in the sensitive examination for educational or training purposes was discussed with the Patient or Authorized Air Filler. The Patient or Authorized Air Filler has agreed to proceed with the sensitive [...] 2024 TIME: 9:11 AM documented in this encounterSalem City Hospital11-05-2024 NoteHNO ID: [id number] Author: RUBY KIRKPATRICK PT Service: ? Author [...] Goals for Episode of Care: established 01/16/24 [place] in home exercise program. Patient will decrease [...] Planned: 4 Planned Treatment Interventions: Therapeutic exercise (09817), Neuromuscular re-education (08793), Manual therapy (66727), Therapeutic activities (33359), Self-[place] health [place] management (78242), Gait Training (17958), Patient/Family/Caregiver Education, Body Mechanics Training, General Conditioning [...] Stand Test : 13.67 (more content not included)...[facility]11-05-2024 History of Present illness Narrative* Ruby Kirkpatrick, PT - 01/16/2024 5:55 PM EST Images [...] Goals for Episode of Care: established 01/16/24 [place] in home exercise program. Patient will decrease [...] Planned: 4 Planned Treatment Interventions: Therapeutic exercise (64311), Neuromuscular re- education (64108), Manual therapy (49286), Therapeutic activities (55371), Self- [place] management (48281), Gait Training (97281), Patient/Family/Caregiver Education, Body Mechanics Training, General Conditioning [...] Kirkpatrick PT - 01/16/2024 5:50 PM EST Program_ID:[id number] Access Code: [email or web address] URL: [email or web address] Date: 01-16-2024 Prepared By: Ruby Kirkpatrick Program [...] sets - 10 reps documented in this encounterSalem City Hospital10-29-2024 NoteHNO ID: [id number] Author: ZACHERY TOUSSAINT MD Service: ? Author [...] back pain 05/27/2014 Work injury 2006 Depression [facility] Diabetes mellitus (HCC) Disc slipped disc in back Fracture of right ankle Head injury Helicobacter pylori infection 09/12/2016 Hernia, hiatal Hyperglycemia 2010 Insomnia JOSSELIN (obstructive sleep apnea) 02/25/2019 Post-traumatic headache 01/16/2014 Postmenopausal Prediabetes 04/08/2019 PTSD (post-traumatic stress disorder) Tobacco use PAST SURGICAL HISTORY Procedure Laterality Date APPENDECTOMY 2013 [place] SECTION HX 1980 x 2 CHOLECYSTECTOMY 1989 COLONOSCOPY 01/10/2018 Random bx neg. internal hemorrhoids. lax anal tone. Giovanna in [facility] COLONOSCOPY FLX DX W/COLLJ SPEC WHEN PFRMD 06/12/2014 Colonoscopy out pt [facility] EGD 04/10/2018 Hpylori negative - [facility] in [facility] ESOPHAGOGASTRODUODENOSCOPY TRANSORAL DIAGNOSTIC 06/12/2014 EGD outpt [facility] HERNIA REPAIR HX 12/01/2011 TOTAL ABDOMINAL [...] Brother Seizures Brother Coronary Artery Disease Brother [place] REVIEW OF SYMPTOMS: The review of systems [...] masses, asymmetry or lymphadenopat (more content not included)...[facility]10-29-2024 History of Present illness Narrative* Zachery Toussaint [...] back pain 05/27/2014 Work injury 2006 Depression [facility] Diabetes mellitus (HCC) Disc slipped disc in back Fracture of right ankle Head injury Helicobacter pylori infection 09/12/2016 Hernia, hiatal Hyperglycemia 2010 Insomnia JOSSELIN (obstructive sleep apnea) 02/25/2019 Post-traumatic headache 01/16/2014 Postmenopausal Prediabetes 04/08/2019 PTSD (post-traumatic stress disorder) Tobacco use PAST SURGICAL HISTORY Procedure Laterality Date APPENDECTOMY 2012 [place] SECTION HX 1980 x 2 CHOLECYSTECTOMY 1989 COLONOSCOPY 01/10/2018 Random bx neg. internal hemorrhoids. lax anal tone. [facility] in [facility] COLONOSCOPY FLX DX W/COLLJ SPEC WHEN PFRMD 06/12/2014 Colonoscopy out pt [facility] EGD 04/10/2018 Hpylori negative - [facility] in [facility] ESOPHAGOGASTRODUODENOSCOPY TRANSORAL DIAGNOSTIC 06/12/2014 EGD outpt [facility] HERNIA REPAIR HX 12/01/2011 TOTAL ABDOMINAL [...] once daily. Noble Gilbert CNP at the [facility]. (Patient not taking: Reported on [...] Brother Seizures Brother Coronary Artery Disease Brother [place] REVIEW OF SYMPTOMS: The review of systems [...] Zachery Toussaint III, MD documented in this encounterSalem City Hospital10-28-2024 NoteHNO ID: [id number] Author: MARIANNA YAP APRN.ETL TESTER Service: ? Author Type: Nurse Practitioner Type: Progress Notes Filed: 01/08/2024 11:34 Note Text: CC: Patient presents with: Follow Up: [facility] Jennifer Mcmullen is a 63 year old [...] back pain 05/27/2014 Work injury 2006 Depression [facility] Diabetes mellitus (HCC) Disc slipped disc in back Fracture of right ankle Head injury Helicobacter pylori infection 09/12/2016 Hernia, hiatal Hyperglycemia 2010 Insomnia JOSSELIN (obstructive sleep apnea) 02/25/2019 Post-traumatic headache 01/16/2014 Postmenopausal Prediabetes 04/08/2019 PTSD (post-traumatic stress disorder) Tobacco use PAST SURGICAL HISTORY Procedure Laterality Date APPENDECTOMY 2012 [place] SECTION HX 1980 x 2 CHOLECYSTECTOMY 1989 COLONOSCOPY 01/10/2018 Random bx neg. internal hemorrhoids. lax anal tone. [facility] in [facility] COLONOSCOPY FLX DX W/COLLJ SPEC WHEN PFRMD 06/12/2014 Colonoscopy out pt [facility] EGD 04/10/2018 Hpylori negative - [facility] in [facility] ESOPHAGOGASTRODUODENOSCOPY TRANSORAL DIAGNOSTIC 06/12/2014 EGD outpt [facility] HERNIA REPAIR HX 12/01/2011 TOTAL ABDOMINAL [...] Brother Seizures Brother Coronary Artery Disease Brother [place] Social History Tobacco Use Smoking status: Every [...] due on 10/18/2023 RSV (more content not included)...[facility]10-28-2024 History of Present illness Narrative* Marianna Yap, FULLERETTE.RIGO - 01/08/2024 11:06 AM EDT CC: Patient presents with: Follow Up: [facility] Jennifer Mcmullen is a 63 year old [...] back pain 05/27/2014 Work injury 2006 Depression [facility] Diabetes mellitus (HCC) Disc slipped disc in back Fracture of right ankle Head injury Helicobacter pylori infection 09/12/2016 Hernia, hiatal Hyperglycemia 2010 Insomnia JOSSELIN (obstructive sleep apnea) 02/25/2019 Post-traumatic headache 01/16/2014 Postmenopausal Prediabetes 04/08/2019 PTSD (post-traumatic stress disorder) Tobacco use PAST SURGICAL HISTORY Procedure Laterality Date APPENDECTOMY 2012 [place] SECTION HX 1979 x 2 CHOLECYSTECTOMY 1989 COLONOSCOPY 01/10/2018 Random bx neg. internal hemorrhoids. lax anal tone. [facility] COLONOSCOPY FLX DX W/COLLJ SPEC WHEN PFRMD 06/12/2014 Colonoscopy out pt [facility] EGD 04/10/2018 Hpylori negative - [facility] ESOPHAGOGASTRODUODENOSCOPY TRANSORAL DIAGNOSTIC 06/12/2014 EGD outpt [facility] HERNIA REPAIR HX 12/01/2011 TOTAL ABDOMINAL [...] Brother Seizures Brother Coronary Artery Disease Brother [place] Social History Tobacco Use Smoking status: Every [...] series) due on 01/07/2025 Covid-19 Vaccine(3 - season) due on 01/07/2025 HbA1C due on [...] Patient agreeable to treatment plan. Marianna Yap APRN.ETL TESTER documented in this encounterSalem City Hospital10-16-2024 Instructions* Patient Instructions* Terrence Flores APRN.CNP - [...] final radiology report recommendations when available by [employer] message, letter, or phone call. We will also notify your referring provider/PCP of the results and recommendations. If you didn t schedule this before you left the office or need to reschedule, you can call in to schedule it anytime: [facility] [phone] [facility] [phone] All other [facility] locations [phone] Feel free to reach out for any questions or concerns, Terrence Flores APRN.CNP Lung Cancer Screening [phone] documented in this encounterSalem City Hospital10-16-2024 History of Present illness Narrative* Terrence Flores [...] which included preparing to see the patient, [id number] patient care, completing clinical documentation, performing a medically appropriate examination, counseling and educating the patient/family/caregiver, ordering medications, tests, or p rocedures, communicating with other HCPs (not separately reported), independently interpreting results (not separately reported), communicating results to the patient/family/caregiver, and care coordination (not separately reported). Terrence Flores APRN.[facility] December 27, 2023 12:08 PM History [...] Breo and spiriva daily. Modified Medical Research [place] Dyspnea Scale (MMRC) I only get breathless [...] back pain 05/27/2014 Work injury 2006 Depression [facility] Diabetes mellitus (HCC) Disc slipped disc [...] Brother Seizures Brother Coronary Artery Disease Brother [place] Surgical Hx: PAST SURGICAL HISTORY Procedure Laterality Date APPENDECTOMY 2012 [place] SECTION HX 1980 x 2 CHOLECYSTECTOMY 1989 COLONOSCOPY 01/10/2018 Random bx neg. internal hemorrhoids. lax anal tone. [facility] in [facility] COLONOSCOPY FLX DX W/COLLJ SPEC WHEN PFRMD 06/12/2014 Colonoscopy out pt [facility] EGD 04/10/2018 Hpylori negative - [facility] in [facility] ESOPHAGOGASTRODUODENOSCOPY TRANSORAL DIAGNOSTIC 06/12/2014 EGD outpt [facility] HERNIA REPAIR HX 12/01/2011 TOTAL ABDOMINAL HYSTERECT W/WO RMVL TUBE OVARY 1979 fibroid Allergies: ALLERGIES Allergen Reactions Latex Itching [...] OF EXAM: Mar 31 2022 2:03PM [facility] 0562 - CT LUNG SCREEN WO IVCON [...] without contrast. MQ: CTLCS_6 Patient characteristics: * Hebd-nc-Ampto: 1960; Age at exam: 61 years * Gender: Female * Lung Disease: Asymptomatic (no signs or symptoms of lung disease) * Number of Pack Years: 75 * Current smoker (=0) or Number of Years since Quit: 0 * Ordering provider and NPI: ARCELIA GARCIA [id number] * Interpreting radiologist and NPI: Jarad [id number] Exam acquisition parameters: * Exam Date: 03/31/2022 2:03 PM * Site: [facility] * * CT System Graphic Design Specialist: [employer] * CT System Model: [employer] * Tube Current-Time (mA-sec): 60 * Peak [...] Left Anterior Descending None; Right Coronary None Cooker Tender (topogram) images: No additional findings. Impression: IMPRESSION: LungRADS category: 1 LungRADS modifier: None LungRADS 0 reason: n/a Recommendations: Continue annual screening with LDCT in 12 months. Other actionable findings: Reference: [employer]. Lung CT Screening Reporting and Data System (Lung-RADS). Available at: http://www.acr.org/Quality-Safety/Resources/LungRADS Drafter Patent: AMADO Transcribe Date/Time: Mar 31 2022 10:29P [...] Function Testing: SPIROMETRY WITH DILATOR IF OBSTRUCTED ([id number]) - ordered on 10/18/18 [facility] [address] [place] [place] [address] Test Date: 2018-10-18 Pat Name: JENNIFER MCMULLEN Department: Room: Gender: Female Chief Scientific Officer: : 1960 Requested By: Order Number: [id number] Reading MD: Zack Walker Interpretive Statements ATS [...] 7:37:30 EDT by Zack Walker [facility] [address] [place], [place] [address] PFT Lab Report Name: YAJAIRA MCMULLEN JENNIFER ID: [id number] Date: 10/18/18 Physician: Genaro JACK Age: 57 Height(in): 60.0 Weight(lb): 234 Gender: Female Race: Diagnosis: Medication Set 1: Dyspnea Rest: No Dyspnea Exercise: No Cough: No Persistent: No Productive (cc): Smoker: No How Long: Stopped: Cigarettes: No Chief Scientific Officer: Suha Dodson RCP Temp: 26 PBar: 734 PF Reference: ######## Spirometry Hb: gm/dL Ref Pre Pre Post Post Post Enedelia % Ref Enedelia % Ref % Chg FVC Liters 2.94 1.64 56 FEV1 Liters 2.30 1.33 58 FEV1/FVC % 79 81 QAG96-53% L/sec 2.33 1.49 64 BetJMJ54-45 L/sec 2.50 1.49 60 PEF L/sec 5.92 4.11 69 UVJ114% Sec 6.26 MVV L/min 92 f BPM [...] max cmH2O 141 null documented in this encounterSalem City Hospital10-16-2024 NoteHNO ID: [id number] Author: TERRENCE FLORES APRN.RIGO Service: ? Author [...] which included preparing to see the patient, qliy-cp-awaq patient care, completing clinical documentation, performing a medically appropriate examination, counseling and educating the patient/family/caregiver, ordering medications, tests, or procedures, communicating with other HCPs (not separately reported), independently interpreting results (not separately reported), communicating results to the patient/family/caregiver, and care coordination (not separately reported). Terrence Flores APRN.[facility] December 27, 2023 12:08 PM History [...] Breo and spiriva daily. Modified [employer] [place] Dyspnea Scale (MMRC) I only get breathless with strenous exercise 0 Last 12 Encounter Wt Readings: Date: Wt: 12/01/2023 97.3 kg (214 lb 8.1 oz) 08/23/2023 97.1 kg (214 lb) 03/20/2023 95.2 kg (209 lb 12.8 oz) 03/02/2023 95.7 kg (211 lb) 12/15/2022 97.1 kg (214 lb (more content not included)...[facility]10-16-2024 Miscellaneous Notes* [facility] - [place] CT - 12/27/2023 2:00 [...] PATIENT PRESENTS WITH AN IMPLANTABLE OR ATTACHED MILLINERY WORKER: No RADIOLOGY DEPARTMENT: CT; Exam(s) Completed: Lung Screening PERIPHERAL IV DATA: Not applicable SIGNED BY: CAMILLE Harley December 27, 2023 2:36 PM documented in this encounterSalem City Hospital10-16-2024 Progress note* [facility] - [place] CT - 12/27/2023 2:00 [...] PATIENT PRESENTS WITH AN IMPLANTABLE OR ATTACHED MILLINERY WORKER: No RADIOLOGY DEPARTMENT: CT; Exam(s) Completed: Lung Screening PERIPHERAL IV DATA: Not applicable SIGNED BY: CAMILLE Harley December 27, 2023 2:36 PM [facility]10-16-2024 NoteHNO ID: [id number] Author: SMILEY DE LA PAZ DO Service: ? Author Type: Physician Type: [...] - positive Gina: A (more content not included)...[facility]10-16-2024 History of Present illness Narrative* Smiely De La Paz DO - 12/27/2023 1:19 PM EDT Images [...] result) Impression: IMPRESSION: No acute osseous abnormality Drafter Patent: AMADO Transcribe Date/Time: Dec 05 2023 12:21P [...] with the treatment plan as discussed. Smiley HunterP.HLuis Carlos documented in this encounterSalem City Hospital09-26-2024 Telephone encounter Note * Telephone Encounter - Ligia Armijo LPN - 12/07/2023 4:[address] Ligia Armijo LPN [facility]09-26-2024 Miscellaneous Notes* Telephone Encounter - Ligia Armijo LPN - 12/07/2023 4:[address] Ligia Armijo LPN * Telephone Encounter - Sugar Saunders - 12/05/2023 3:37 PM EDT 1st attempt left nishi Maki message to return call to schedule ortho consult. * Telephone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 declines. 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 Comments: Sexual Activity: Not Currently; No partner data on record Contraception: No contraception data on record PAST MEDICAL HISTORY Diagnosis Date Asthma Chronic low back pain 05/27/2014 Work injury 2006 Depression [facility] Diabetes mellitus (HCC) Disc slipped disc in back Fracture of right ankle Head injury Helicobacter pylori infection 09/12/2016 Hernia, hiatal Hyperglycemia 2010 Insomnia JOSSELIN (obstructive sleep apnea) 02/25/2019 Post-traumatic headache 01/16/2014 Postmenopausal Prediabetes 04/08/2019 PTSD (post-traumatic stress disorder) Tobacco use PAST SURGICAL HISTORY Procedure Laterality Date APPENDECTOMY 2012 [place] SECTION HX 1979 x 2 CHOLECYSTECTOMY 1989 COLONOSCOPY 01/10/2018 Random bx neg. internal hemorrhoids. lax anal tone. Giovanna in [facility] COLONOSCOPY FLX DX W/COLLJ SPEC WHEN PFRMD 06/12/2014 Colonoscopy out pt [facility] EGD 04/10/2018 Hpylori negative - Giovanna in [facility] ESOPHAGOGASTRODUODENOSCOPY TRANSORAL DIAGNOSTIC 06/12/2014 EGD outpt [facility] HERNIA REPAIR HX 12/01/2011 TOTAL ABDOMINAL HYSTERECT W/WO RMVL TUBE OVARY 1980 fibroid FAMILY HISTORY Problem Relation Age of Onset Heart Mother 70 Diabetes Mother Hypertension Mother Asthma Mother Hypertension Father Diabetes Father Colon Cancer Father in his seventies Asthma Sister Asthma Brother Seizures Brother Coronary Artery Disease Brother [place] Social History Tobacco Use Smoking status: Every [...] by mouth daily at bedtime. Noble Gilbert, [facility]. FLUoxetine (PROZAC) 20 mg capsule [...] external genitalia normal, normal Bartholin's glands, urethra, Sugar Notch's glands, no vulvar lesions, physiologic discharge present, normal appearing perineal body and perianal region, skin discoloration to the groin area with some slight redness and extremely dry skin NEURO: alert and oriented x3,exam grossly non-focal EXTREMITIES: normal ASSESSMENT/PLAN: 1. Skin yeast infection - ICD9: 112.3, ICD10: B37.2 Lotrisone ordered Pt to also use coconut oil twice a day Follow up as needed Meredith Aguilar APRN.ETL TESTER Medical Decision Making: Problems: Low: Acute, uncomplicated illness or injury Risk: Moderate: Drug management Medical Decision Making Level: 3 - Low documented in this encounterSalem [facility]09-24-2023 Miscellaneous Notes* Telephone Encounter - Dana Hensley [...] THE LUNGS once daily Patient Phone numbers: [phone] (home) Request is for script(s) to be escript to pharmacy. Danielle Melendez documented in this encounterSalem City Hospital09-18-2023 History of Present illness Narrative* Kaushal, Marianna, FULLERETTE.ETL TESTER - 11/28/2022 11:39 AM EDT CC: Patient [...] back pain 05/27/2014 Work injury 2006 Depression [facility] Diabetes mellitus (HCC) Disc slipped disc [...] internal hemorrhoids. lax anal tone. Giovanna in [facility] COLONOSCOPY FLX DX W/COLLJ SPEC WHEN PFRMD 06/12/2014 Colonoscopy out pt [facility] EGD 04/10/2018 Hpylori negative - Giovanna in [facility] ESOPHAGOGASTRODUODENOSCOPY TRANSORAL DIAGNOSTIC 06/12/2014 EGD outpt [facility] HERNIA REPAIR HX 12/01/2011 TOTAL ABDOMINAL [...] by mouth daily at bedtime. Noble Gilbert, [facility]. FLUoxetine (PROZAC) 20 mg [...] Brother Seizures Brother Coronary Artery Disease Brother [place] Social History Tobacco Use Smoking status: Every [...] Patient agreeable to treatment plan. Marianna Easley APRN.ETL TESTER documented in this encounterSalem City Hospital09-18-2023 Instructions* Patient Instructions* Older, Marianna, FULLERETTE.ETL TESTER - 11/28/2022 11:28 AM EDT Artrosis De [...] significa que la articulaci n no se bung remover , willis tampoco doler . Otra opci [...] el mejor para usted. documented in this encounterSalem City Hospital09-15-2023 Miscellaneous Notes* Telephone Encounter - Willis Jacobo Ma - 11/25/2022 2:42 PM EDT Scheduled. * Telephone Encounter - Marianna Easley APRN.CNP - 11/25/2022 2:06 PM EDT Schedule follow-up for next week Marianna Easley APRN.CNP * Telephone Encounter - Marlys Cortes LPN - 11/23/2022 3:11 PM EDT Phoned patient and went over results, notes from Marianna Easley FLOOR ASSOCIATE with understanding. Patient said no improvement, her hands hurt a lot all the time. * Telephone Encounter - Marlys Cortes LPN - 11/23/2022 3:09 PM EDT ----- Message from Marianna Easley APRN.CNP sent at 11/23/2022 2:12 PM EDT ----- Please let the patient know her labs were normal. 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 Has there been any improvement in pain? Marianna Easley APRN.CNP documented in this encounterSalem City Hospital09-08-2023 History of Present illness Narrative* Jossie Daniel, RT(R) - 11/18/2022 2:20 PM EDT Radiology [...] 18, 2022 1:59 PM documented in this encounterSalem City Hospital09-08-2023 Instructions* Patient Instructions* Marianna Easley APRN.CNP - 11/18/2022 1:37 PM EDT For hand pain: start prednisone, follow prescription instructions. This may cause your blood sugarsto be higher than usual. Please call the office if your blood sugar is over 300. documented in this encounterSalem City Hospital09-08-2023 History of Present illness Narrative* Marianna Easley [...] back pain 05/27/2014 Work injury 2006 Depression [facility] Diabetes mellitus (HCC) Disc slipped disc in back Fracture of right ankle Head injury Helicobacter pylori infection 09/12/2016 Hernia, hiatal Hyperglycemia 2011 Insomnia JOSSELIN (obstructive sleep apnea) 02/25/2019 Post-traumatic headache 01/16/2014 Postmenopausal Prediabetes 04/08/2019 PTSD (post-traumatic stress disorder) Tobacco use PAST SURGICAL HISTORY Procedure Laterality Date APPENDECTOMY 2013 [place] SECTION HX 1980 x 2 CHOLECYSTECTOMY 1990 COLONOSCOPY 01/10/2018 Random bx neg. internal hemorrhoids. lax anal tone. Giovanna in [facility] COLONOSCOPY FLX DX W/COLLJ SPEC WHEN PFRMD 06/12/2014 Colonoscopy out pt [facility] EGD 04/10/2018 Hpylori negative - Giovanna in [facility] ESOPHAGOGASTRODUODENOSCOPY TRANSORAL DIAGNOSTIC 06/12/2014 EGD outpt [facility] HERNIA REPAIR HX 12/01/2011 TOTAL ABDOMINAL [...] by mouth daily at bedtime. Noble Gilbert, [facility]. FLUoxetine (PROZAC) 20 mg capsule [...] Brother Seizures Brother Coronary Artery Disease Brother [place] Social History Tobacco Use Smoking status: Every [...] plan. Marianna Easley APRN.CNP documented in this encounterSalem City Hospital05-17-2023 Miscellaneous Notes* Telephone Encounter - Fabienne Sun [...] recheck at her earliest convenience Marianna Easley APRN.RIGO documented in this encounterSalem City Hospital04-03-2023 Miscellaneous Notes* Telephone Encounter - Sanam Aragon LPN - 06/13/2022 1:42 PM EDT Patient notified of below results/recommendation, verbalized understanding. Sanam Aragon LPN * Telephone Encounter - Sanam Aragon LPN - 06/13/2022 1:41 PM EDT ----- Message from Leonid Rice MD sent at 06/12/2022 12:11 PM EDT ----- Shoulder xray mild arthritis of acromioclavicular joint. Continue meloxicam. documented in this encounterSalem City Hospital03-27-2023 Miscellaneous Notes* Letter - Mammography Coordinator - 06/06/2022 11:21 AM EDT June 07, 2022 PID: [id number] Jennifer Mcmullen [address] [place] [address] Dear Ms. Yajaira Mcmullen, We are pleased [...] report will be [facility] as part of your permanent medical record and are available for your continuing care. Thank you for allowing us to help in meeting your health care needs. Sincerely, Dr. Mitchell Interpreting Radiologist [facility] (Normal over 40) documented in this encounterSalem City Hospital03-24-2023 History of Present illness Narrative* Chayo Krishnamurthy [...] 03, 2022 12:33 PM documented in this encounterSalem City Hospital03-21-2023 Instructions* Patient Instructions* Leonid Rice MD - 05/31/2022 10:43 AM EDT BLOOD WORK TODAY. documented in this encounterSalem City Hospital03-21-2023 History of Present illness Narrative* Leonid Rice MD - 05/31/2022 10:29 AM EDT This note was created using Parallel Enginesriter. Subjective Jennifer Mcmullen is a 61 year [...] by mouth daily at bedtime. Noble Gilbert, [facility]. FLUoxetine (PROZAC) 20 mg [...] POWDER Leonid Rice MD documented in this encounterSalem City Hospital03-15-2023 Miscellaneous Notes* Telephone Encounter - Sanam Aragon [...] Aragon LPN * Telephone Encounter - Christina Jeong Pss - 05/25/2022 2:47 PM EDT Patient has been identified by name and date of : Yes Requested Prescriptions Pending Prescriptions Disp Refills topiramate (TOPAMAX) 50 mg tablet 60 tablet 5 Sig: Take 1 tablet by mouth twice daily. RX INSTRUCTIONS: Patient aware RX will be sent to pharmacy. No need to notify patient. Christina Jeong Pss documented in this encounterSalem City Hospital01-26-2023 Miscellaneous Notes* Telephone Encounter - Charlene Downey [...] reporting Pt is using a Cpap to [phone]. documented in this encounterSalem City Hospital01-20-2023 Miscellaneous Notes* Telephone Encounter - Arcelia Garcia APRN.CNP - 04/01/2022 5:42 PM EST Spoke with patient's daughter listed as emergency manager personnel selection) regarding LDCT category 1 resultswith follow-up recommended in one year for annual LCS. She comprehend and agreeable with plan. Arcelia Garcia APRN.RIGO documented in this encounterSalem City Hospital01-19-2023 Miscellaneous Notes* Allied Health - Leonor Santiago [...] 31, 2022 1:59 PM documented in this encounterSalem City Hospital12-07-2022 Instructions* Patient Instructions* Lakeisha Silva LPN - [...] for General Surgery department. documented in this encounterSalem City Hospital12-07-2022 History of Present illness Narrative* Lakeisha Silva [...] back pain 05/27/2014 Work injury 2006 Depression [facility] Diabetes mellitus (HCC) Disc slipped disc [...] internal hemorrhoids. lax anal tone. Joseline in [facility] COLONOSCOPY FLX DX W/COLLJ SPEC WHEN PFRMD 06/12/2014 Colonoscopy out pt [facility] EGD 04/10/2018 Hpylori negative - [facility] in [facility] ESOPHAGOGASTRODUODENOSCOPY TRANSORAL DIAGNOSTIC 06/12/2014 EGD outpt [facility] HERNIA REPAIR HX 12/01/2011 TOTAL ABDOMINAL [...] by mouth daily at bedtime. Noble Gilbert, [facility]. FLUoxetine (PROZAC) 20 mg capsule [...] Brother Seizures Brother Coronary Artery Disease Brother [place] REVIEW OF SYMPTOMS: The review of systems data was entered by the nurse and reviewed by me Nursing Notes: Va PadillaANN 02/16/2022 8:06 AM Signed REVIEW OF SYSTEMS: [...] plan Fabienne Howard PA-C documented in this encounterSalem City Hospital12-07-2022 Nurse Note* Va Padilla, ANN - 02/16/2022 8:04 AM EST REVIEW OF [...] 2014 Va Padilla LPN documented in this encounterSalem City Hospital12-06-2022 Instructions* Patient Instructions* Arcelia Garcia APRN.ETL TESTER - 02/15/2022 11:[address] Lung [...] receive this result. Lung Cancer Screening hotline: [phone] Lung Cancer Screening [phone] Billing Questions: or [email or web address] Lung Cancer Screening Team: Fabienne Mcnair CNP; Bossman Garcia CNP; Alina Cornejo CNP; Elisa Lord CNP, SELVIN LevinC: [phone] Josemanuel Swanson PA-C Cigarette Logs : Record [...] candy are also excellent oral substitutes. Phone [phone] ([phone]) as additional resource. documented in this encounterSalem City Hospital12-06-2022 History of Present illness Narrative* Arcelia Garcia APRN.RIGO - 02/15/2022 11:10 AM EST Images from [...] screening. Here with daughter who assisted with guinean translation Respiratory symptoms include: SOB: Yes with [...] neb/rescue inhaler. Follows with general pulmonology at [facility]. Fever/Chills: No Recent Respiratory Infection: No Unintentional [...] 50% of waking hrs. Modified Medical Research [place] Dyspnea Scale (MMRC) On level ground I [...] low back pain 05/27/[address] [facility] Diabetes mellitus (HCC) Disc slipped disc in back Fracture of right ankle Head injury Helicobacter pylori infection 09/12/2016 Hernia, hiatal Hyperglycemia 2010 Insomnia JOSSELIN (obstructive sleep apnea) 02/25/2019 Post-traumatic headache 01/16/2014 Postmenopausal Prediabetes 04/08/2019 PTSD (post-traumatic stress disorder) Tobacco use PAST SURGICAL HISTORY Procedure Laterality Date APPENDECTOMY 2012 [place] SECTION HX 1979 x 2 CHOLECYSTECTOMY 1989 COLONOSCOPY 01/10/2018 Random bx neg. internal hemorrhoids. lax anal tone. Giovanna in [facility] COLONOSCOPY FLX DX W/COLLJ SPEC WHEN PFRMD 06/12/2014 Colonoscopy out pt [facility] EGD 04/10/2018 Hpylori negative - Giovanna in [facility] ESOPHAGOGASTRODUODENOSCOPY TRANSORAL DIAGNOSTIC 06/12/2014 EGD outpt [facility] HERNIA REPAIR HX 12/01/2011 TOTAL ABDOMINAL HYSTERECT W/WO RMVL TUBE OVARY 1980 fibroid FAMILY HISTORY Problem Relation Age of Onset Heart Mother 70 Diabetes Mother Hypertension Mother Asthma Mother Hypertension Father Diabetes Father Colon Cancer Father in his seventies Asthma Sister Asthma Brother Seizures Brother Coronary Artery Disease Brother [place] albuterol (PROVENTIL) 2.5 mg /3 mL (0.083 [...] by mouth daily at bedtime. Noble Gilbert, [facility]. FLUoxetine (PROZAC) 20 mg capsule [...] Function Testing: SPIROMETRY WITH DILATOR IF OBSTRUCTED ([id number]) - ordered on 10/18/18 [facility] [address] [facility] [facility], [place] [address] Test Date: 2018-10-18 Pat Name: JENNIFER MCMULLEN Department: Room: Gender: Female Chief Scientific Officer: : 1960 Requested By: Order Number: [id number] Reading MD: Zack Walker Interpretive Statements ATS [...] 7:37:30 EDT by Zack Walker [facility] [address] [place], [place] [address] PFT Lab Report Name: JENNIFER RIVAS ID: [id number] Date: 10/18/18 Physician: Genaro JACK Age: 57 Height(in): 60.0 Weight(lb): 234 Gender: Female Race: Diagnosis: Medication Set 1: Dyspnea Rest: No Dyspnea Exercise: No Cough: No Persistent: No Productive (cc): Smoker: No How Long: Stopped: Cigarettes: No Chief Scientific Officer: Suha Dodson RCP Temp: 26 PBar: 734 PF Reference: ######## Spirometry Hb: gm/dL Ref Pre Pre Post Post Post Enedelia % Ref Enedelia % Ref % Chg FVC Liters 2.94 1.64 56 FEV1 Liters 2.30 1.33 58 FEV1/FVC % 79 81 YNJ43-21% L/sec 2.33 1.49 64 DjfRGN70-55 L/sec 2.50 1.49 60 PEF L/sec 5.92 4.11 69 VDN223% Sec 6.26 MVV L/min 92 f BPM [...] year risk for lung cancer: 1.4 Source: [employer] [email or web address]://[email or web address]/[email or web address] I have determined that the patient is [...] candy are also excellent oral substitutes. Phone [phone] ([phone]) as additional resource. The medical conditions adversely affected by cigarette use include:Diabetes. The patient is currently not ready to quit. I personally spent 6 minutes in counseling. The time spent in smoking cessation counseling is exclusive of any other counseling during this visit. I spent a total of 30 minutes on the date of the service which included preparing to see the patient, hvry-bo-tmgh patient care, completing clinical documentation, obtaining and/or reviewing separately obtained history, counseling and educating the patient/family/caregiver, ordering medications, manjula ts, or procedures, and communicating results to the patient/family/caregiver. Arcelia Garcia APRN.RIGO NPI #: February 15, 2022 11:11 AM documented in this encounterSalem City Hospital12-02-2022 History of Present illness Narrative* Leonid Rice MD - 02/11/2022 10:14 PM EST This note was created using [employer]. Subjective Jennifer Mcmullen is a 61 year old female. She noted a sore lump on her lower mid abdomen 5 days ago. This was tender, but with no drainage. She was planning to travel for [place] and was interested in having this drained [...] by mouth daily at bedtime. Noble Gilbert [facility], [facility]. FLUoxetine (PROZAC) 20 mg [...] CLINIC Leonid Rice MD documented in this encounterSalem City Hospital10-21-2022 History of Present illness Narrative* Marianna Older, FULLERETTE.ETL TESTER - 12/31/2021 1:48 PM EDT CC: Patient presents with: Follow Up HPI Jennifer Yajaira Mcmullen is a 61 year old female [...] complication, without long-term current use of insulin ([facility]) Home blood sugar readings: daily, average around [...] back pain 05/27/2014 Work injury 2006 Depression [facility] Diabetes mellitus (HCC) Disc slipped disc in back Fracture of right ankle Head injury Helicobacter pylori infection 09/12/2016 Hernia, hiatal Hyperglycemia 2010 Insomnia JOSSELIN (obstructive sleep apnea) 02/25/2019 Post-traumatic headache 01/16/2014 Postmenopausal Prediabetes 04/08/2019 PTSD (post-traumatic stress disorder) Tobacco use PAST SURGICAL HISTORY Procedure Laterality Date APPENDECTOMY 2012 [place] SECTION HX 1980 x 2 CHOLECYSTECTOMY 1989 COLONOSCOPY 01/10/2018 Random bx neg. internal hemorrhoids. lax anal tone. [facility] COLONOSCOPY FLX DX W/COLLJ SPEC WHEN PFRMD 06/12/2014 Colonoscopy out pt [facility] EGD 04/10/2018 Hpylclementine negative - Joseliney in [facility] ESOPHAGOGASTRODUODENOSCOPY TRANSORAL DIAGNOSTIC 06/12/2014 EGD outpt [facility] HERNIA REPAIR HX 12/01/2011 TOTAL ABDOMINAL [...] by mouth daily at bedtime. Noble Gilbert, [facility]. FLUoxetine (PROZAC) 20 mg [...] Brother Seizures Brother Coronary Artery Disease Brother [place] Social History Tobacco Use Smoking status: Every [...] plan. Marianna Easley APRN.CNP documented in this encounterSalem City Hospital09-19-2022 History of Present illness Narrative* Rachel Johnson [...] 29, 2021 2:42 PM documented in this encounterSalem City Hospital09-19-2022 Instructions* Patient Instructions* Marianna Easley APRN.CNP - 11/29/2021 2:34 PM [...] above 100.5, rigid/hard abdomen. documented in this encounterSalem City Hospital09-19-2022 History of Present illness Narrative* Marianna Easley [...] low back pain 05/27/[address] [facility] Diabetes mellitus (HCC) Disc slipped disc in back Fracture of right ankle Head injury Helicobacter pylori infection 09/12/2016 Hernia, hiatal Hyperglycemia 2010 Insomnia JOSSELIN (obstructive sleep apnea) 02/25/2019 Post-traumatic headache 01/16/2014 Postmenopausal Prediabetes 04/08/2019 PTSD (post-traumatic stress disorder) Tobacco use PAST SURGICAL HISTORY Procedure Laterality Date APPENDECTOMY 2012 [place] SECTION HX 1979 x 2 CHOLECYSTECTOMY 1989 COLONOSCOPY 01/10/2018 Random bx neg. internal hemorrhoids. lax anal tone. Giovanna in [facility] COLONOSCOPY FLX DX W/COLLJ SPEC WHEN PFRMD 06/12/2014 Colonoscopy out pt [facility] EGD 04/10/2018 Hpylori negative - Giovanna in [facility] ESOPHAGOGASTRODUODENOSCOPY TRANSORAL DIAGNOSTIC 06/12/2014 EGD outpt [facility] HERNIA REPAIR HX 12/01/2011 TOTAL ABDOMINAL [...] by mouth daily at bedtime. Noble Gilbert, [facility]. FLUoxetine (PROZAC) 20 mg [...] Brother Seizures Brother Coronary Artery Disease Brother [place] Social History Tobacco Use Smoking status: Every [...] plan. Marianna Easley APRN.CNP documented in this encounterSalem City Hospital09-03-2022 History of Present illness Narrative* Terell Joseph [...] back pain 05/27/2014 Work injury 2006 Depression [facility] Diabetes mellitus (HCC) Disc slipped disc [...] by mouth daily at bedtime. Noble Gilbert, [facility]. FLUoxetine (PROZAC) 20 mg [...] in the emergency room. Report sent to [facility] by ER passport. Terell Joseph MD documented in this encounterSalem City Hospital08-22-2022 Miscellaneous Notes* Telephone Encounter - Sanam Aragon LPN - 11/01/2021 3:57 PM EDT Patient has [...] Aragon LPN * Telephone Encounter - Chayo Hdez - 11/01/2021 1:22 PM EDT Pharmacy verified in [facility] Patient has been identified by name [...] advise. Chayo Soto Pss documented in this encounterSalem City Hospital08-04-2022 Miscellaneous Notes* Telephone Encounter - Sugar Zuñiga [...] recommended for fatty liver. documented in this encounterSalem City Hospital07-27-2022 History of Present illness Narrative* RT Jabier(R) [...] 06, 2021 2:06 PM documented in this encounterSalem City Hospital07-21-2022 Instructions* Patient Instructions* Leonid Rice MD - 09/30/2021 2:20 PM EDT DO ALL LABS TODAY. PATIENT FASTING. (CBC, CMP, LIPIDS, A1C, URINE ALBUMIN) SCHEDULE ULTRASOUND RIGHT UPPER QUADRANT ORDERED IN March. documented in this encounterSalem City Hospital07-21-2022 History of Present illness Narrative* Leonid Rice MD - 09/30/2021 2:06 PM EDT This note was created using [employer]. Subjective Jennifer Mcmullen is a 60 year [...] by mouth daily at bedtime. Noble Gilbert, [facility]. FLUoxetine (PROZAC) 20 mg [...] vaccinations. Leonid Rice MD documented in this encounterSalem City Hospital06-21-2022 Miscellaneous Notes* Telephone Encounter - Dionna Helen Adm Asst - 08/31/2021 8:52 AM EDT Order for PAP supplies faxed to [employer]. Dionna Cervantes Adm Asst documented in this encounterSalem City Hospital05-31-2022 Miscellaneous Notes* Telephone Encounter - Dana Hensley MD - 08/10/2021 6:07 PM EDT I last Ejnnifer Mar 2019. 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 She saw Dr Alina Quarles. documented in this encounterSalem City Hospital05-27-2021 History of Past illness Narrative* Problem [...] of this encounter (statuses as of 08/10/2021) [facility] of Past illness Narrative* Problem [...] of this encounter (statuses as of 08/31/2021) [facility] of Past illness Narrative* Problem [...] of this encounter (statuses as of 09/30/2021) [facility] of [facility] illness Narrative* Problem [...] of this encounter (statuses as of 10/07/2021) [facility] of Past illness Narrative* Problem [...] of this encounter (statuses as of 10/14/2021) [facility] of [facility] illness Narrative* Problem [...] of this encounter (statuses as of 11/01/2021) [facility] of [facility] illness Narrative* Problem [...] of this encounter (statuses as of 11/13/2021) [facility] of Past illness Narrative* Problem [...] of this encounter (statuses as of 11/29/2021) [facility] of [facility] illness Narrative* Problem [...] of this encounter (statuses as of 12/31/2021) [facility] illness Narrative* Problem [...] of this encounter (statuses as of 02/12/2022) [facility] Narrative* Problem [...] of this encounter (statuses as of 02/15/2022) [facility] Narrative* Problem [...] of this encounter (statuses as of 02/19/2022) [facility] Narrative* Problem [...] of this encounter (statuses as of 04/01/2022) [facility] Narrative* Problem [...] of this encounter (statuses as of 04/01/2022) [facility] Narrative* Problem [...] of this encounter (statuses as of 04/07/2022) [facility] Narrative* Problem [...] of this encounter (statuses as of 05/25/2022) [facility] Narrative* Problem [...] of this encounter (statuses as of 05/31/2022) [facility] Narrative* Problem [...] of this encounter (statuses as of 06/08/2022) [facility] Narrative* Problem [...] of this encounter (statuses as of 06/13/2022) [facility] Narrative* Problem [...] of this encounter (statuses as of 07/27/2022) [facility] Narrative* Problem [...] of this encounter (statuses as of 11/18/2022) [facility] Narrative* Problem [...] of this encounter (statuses as of 11/25/2022) [facility] Narrative* Problem [...] of this encounter (statuses as of 11/28/2022) [facility] Narrative* Problem [...] of this encounter (statuses as of 12/04/2022) [facility] Narrative* Problem [...] of this encounter (statuses as of 12/16/2022) [facility] Narrative* Problem [...] of this encounter (statuses as of 01/16/2023) [facility] Narrative* Problem [...] of this encounter (statuses as of 01/27/2023) [facility] Narrative* Problem [...] back issues. Abnormality of gait 01/28/2014 04/02/19 Irreducible ventral hernia 03/02/2011 0 08/17/2018 Disc 08/17/2018 Overview: slipped disc in back Hyperglycemia 12/15/2018 NEGATIVE MEDICAL HISTORY 09/2018 Overview: PN, TB, HD, DM, CA documented as of this encounter (statuses as of 06/02/2023) [facility] of [facility] illness Narrative* Problem [...] of this encounter (statuses as of 06/03/2023) [facility] No data available for this section [facility] Evaluation note* Diagnosis Moderate persistent asthma, unspecified whether complicated documented [facility] this encounter [facility]* Diagnosis Malaise- Primary Other malaise and fatigue Epigastric abdominal pain Abdominal pain, epigastric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 protected by the Federal Confidentiality of Alcohol and Drug Abuse Patient Records regulations: The Federal rules restrict any use of the information to criminally investigate or prosecute any alcohol or drug abuse patient.[facility] HospitalIn the event this information is protected by the Federal Confidentiality of Alcohol and Drug Abuse Patient Records regulations: The Federal rules restrict any use of the information to criminally investigate or prosecute any alcohol or drug abuse patient.[facility] HospitalIn the event this information is protected by the Federal Confidentiality of Alcohol and Drug Abuse Patient Records regulations: The Federal rules restrict any use of the information to criminally investigate or prosecute any alcohol or drug abuse patient.[facility] HospitalIn the event this information is protected by the Federal Confidentiality of Alcohol and Drug Abuse Patient Records regulations: The Federal rules restrict any use of the information to criminally investigate or prosecute any alcohol or drug abuse patient.[facility] HospitalIn the event this information is protected by the Federal Confidentiality of Alcohol and Drug Abuse Patient Records regulations: The Federal rules restrict any use of the information to criminally investigate or prosecute any alcohol or drug abuse patient.[facility] HospitalIn the event this information is protected by the Federal Confidentiality of Alcohol and Drug Abuse Patient Records regulations: The Federal rules restrict any use of the information to criminally investigate or prosecute any alcohol or drug abuse patient.[facility] HospitalIn the event this information is protected by the Federal Confidentiality of Alcohol and Drug Abuse Patient Records regulations: The Federal rules restrict any use of the information to criminally investigate or prosecute any alcohol or drug abuse patient.[facility] HospitalIn the event this information is protected by the Federal Confidentiality of Alcohol and Drug Abuse Patient Records regulations: The Federal rules restrict any use of the information to criminally investigate or prosecute any alcohol or drug abuse patient.[facility] HospitalIn the event this information is protected by the Federal Confidentiality of Alcohol and Drug Abuse Patient Records regulations: The Federal rules restrict any use of the information to criminally investigate or prosecute any alcohol or drug abuse patient.[facility] HospitalIn the event this information is protected by the Federal Confidentiality of Alcohol and Drug Abuse Patient Records regulations: The Federal rules restrict any use of the information to criminally investigate or prosecute any alcohol or drug abuse patient.[facility] HospitalIn the event this information is protected by the Federal Confidentiality of Alcohol and Drug Abuse Patient Records regulations: The Federal rules restrict any use of the information to criminally investigate or prosecute any alcohol or drug abuse patient.[facility] HospitalIn the event this information is protected by the Federal Confidentiality of Alcohol and Drug Abuse Patient Records regulations: The Federal rules restrict any use of the information to criminally investigate or prosecute any alcohol or drug abuse patient.[facility] HospitalIn the event this information is protected by the Federal Confidentiality of Alcohol and Drug Abuse Patient Records regulations: The Federal rules restrict any use of the information to criminally investigate or prosecute any alcohol or drug abuse patient.[facility] the event this information is protected by the Federal Confidentiality of Alcohol and Drug Abuse Patient Records regulations: The Federal rules restrict any use of the information to criminally investigate or prosecute any alcohol or drug abuse patient.[facility] HospitalIn the event this information is protected by the Federal Confidentiality of Alcohol and Drug Abuse Patient Records regulations: The Federal rules restrict any use of the information to criminally investigate or prosecute any alcohol or drug abuse patient.[facility] HospitalIn the event this information is protected by the Federal Confidentiality of Alcohol and Drug Abuse Patient Records regulations: The Federal rules restrict any use of the information to criminally investigate or prosecute any alcohol or drug abuse patient.[facility]In the event this information is protected by the Federal Confidentiality of Alcohol and Drug Abuse Patient Records regulations: The Federal rules restrict any use of the information to criminally investigate or prosecute any alcohol or drug abuse patient.[facility] HospitalIn the event this information is protected by the Federal Confidentiality of Alcohol and Drug Abuse Patient Records regulations: The Federal rules restrict any use of the information to criminally investigate or prosecute any alcohol or drug abuse patient.[facility] HospitalIn the event this information is protected by the Federal Confidentiality of Alcohol and Drug Abuse Patient Records regulations: The Federal rules restrict any use of the information to criminally investigate or prosecute any alcohol or drug abuse patient.[facility] HospitalIn the event this information is protected by the Federal Confidentiality of Alcohol and Drug Abuse Patient Records regulations: The Federal rules restrict any use of the information to criminally investigate or prosecute any alcohol or drug abuse patient.[facility] HospitalIn the event this information is protected by the Federal Confidentiality of Alcohol and Drug Abuse Patient Records regulations: The Federal rules restrict any use of the information to criminally investigate or prosecute any alcohol or drug abuse patient.[facility] HospitalIn the event this information is protected by the Federal Confidentiality of Alcohol and Drug Abuse Patient Records regulations: The Federal rules restrict any use of the information to criminally investigate or prosecute any alcohol or drug abuse patient.[facility] HospitalIn the event this information is protected by the Federal Confidentiality of Alcohol and Drug Abuse Patient Records regulations: The Federal rules restrict any use of the information to criminally investigate or prosecute any alcohol or drug abuse patient.[facility] HospitalIn the event this information is protected by the Federal Confidentiality of Alcohol and Drug Abuse Patient Records regulations: The Federal rules restrict any use of the information to criminally investigate or prosecute any alcohol or drug abuse patient.[facility] HospitalIn the event this information is protected by the Federal Confidentiality of Alcohol and Drug Abuse Patient Records regulations: The Federal rules restrict any use of the information to criminally investigate or prosecute any alcohol or drug abuse patient.[facility] HospitalIn the event this information is protected by the Federal Confidentiality of Alcohol and Drug Abuse Patient Records regulations: The Federal rules restrict any use of the information to criminally investigate or prosecute any alcohol or drug abuse patient.[facility] HospitalIn the event this information is protected by the Federal Confidentiality of Alcohol and Drug Abuse Patient Records regulations: The Federal rules restrict any use of the information to criminally investigate or prosecute any alcohol or drug abuse patient.[facility] HospitalIn the event this information is protected by the Federal Confidentiality of Alcohol and Drug Abuse Patient Records regulations: The Federal rules restrict any use of the information to criminally investigate or prosecute any alcohol or drug abuse patient.[facility] HospitalIn the event this information is protected by the Federal Confidentiality of Alcohol and Drug Abuse Patient Records regulations: The Federal rules restrict any use of the information to criminally investigate or prosecute any alcohol or drug abuse patient.[facility] HospitalIn the event this information is protected by the Federal Confidentiality of Alcohol and Drug Abuse Patient Records regulations: The Federal rules restrict any use of the information to criminally investigate or prosecute any alcohol or drug abuse patient.[facility] HospitalIn the event this information is protected by the Federal Confidentiality of Alcohol and Drug Abuse Patient Records regulations: The Federal rules restrict any use of the information to criminally investigate or prosecute any alcohol or drug abuse patient.[facility] HospitalIn the event this information is protected by the Federal Confidentiality of Alcohol and Drug Abuse Patient Records regulations: The Federal rules restrict any use of the information to criminally investigate or prosecute any alcohol or drug abuse patient.[facility] HospitalIn the event this information is protected by the Federal Confidentiality of Alcohol and Drug Abuse Patient Records regulations: The Federal rules restrict any use of the information to criminally investigate or prosecute any alcohol or drug abuse patient.[facility] HospitalIn the event this information is protected by the Federal Confidentiality of Alcohol and Drug Abuse Patient Records regulations: The Federal rules restrict any use of the information to criminally investigate or prosecute any alcohol or drug abuse patient.[facility] HospitalIn the event this information is protected by the Federal Confidentiality of Alcohol and Drug Abuse Patient Records regulations: The Federal rules restrict any use of the information to criminally investigate or prosecute any alcohol or drug abuse patient.[facility] Reason for Visit (unrecogniz ed section and content) Reason Comments Radiology US Specialty Diagnoses / Procedures Referred By Contac t Referred To Contact [facility] Diagnoses Abnormal mammogram of left breast Procedures US BREAST LTD LEFT US BREAST UNI REAL TIME WITH IMAGE LIMITED Leonid Rice MD [address] [place] [address] [facility] [address] [place] [address] Referral ID Status Reason Start Date Expiration Date V isits Requested Visits Authorized [id number] Closed Auto-Generate d Referral 09/11/2023 10/10/2024 1 1 Reason Comments Refill Request Reason Comments FYI-No Action Needed Reason Comments F/U 6 months Specialty Diagnoses / Procedures Referred By Contac t Referred To Contact US IMAGING Diagnoses Epigastric abdominal pain Procedures US ABD RT UPPER QUADRANT US ABDOMINAL REAL TIME W/IMAGE LIMITED Leonid Rice MD [address] [place] [id number] [facility] Referral ID Status Reason Start Date Expiration Date V isits Requested Visits Authorized [id number] Closed Auto-Generate d Referral 04/02/2021 05/02/2022 1 [...] cyst Procedures CONSULT TO GENERAL SURGERY OFFICE/OUTPATIENT NEW HIGH MDM 60-74 MINUTES Leonid Rice MD [address] [place] [address] Referral ID Status Reason Start Date Expiration Date V isits Requested Visits Authorized [id number] Closed PCP Requested Referral 02/11/2022 02/11/2023 1 1 Specialty Diagnoses / Procedures Referred By Contac t Referred To Contact CT IMAGING Diagnoses Smoker Encounter for screening for lung cancer Procedures CT LUNG SCREEN WO IVCON COMPUTED TOMOGRAPHY THORAX LW DOSE LNG CA SCR Arcelia Shah, [place]ETL TESTER [address] [place] [address] Ct Imaging Referral ID Status Reason Start Date Expiration Date V isits Requested Visits Authorized [id number] Closed Auto-Generate d Referral 02/28/2022 04/29/2022 1 [...] NEW HIGH MDM 60 MINUTES Eddie Rodríguez, [place].OCC THERAPIST [address] [place] [address] Referral ID Status Reason Start Date Expiration Date V isits Requested Visits Authorized [id number] Closed PCP Requested Referral 12/05/2023 12/04/2024 1 1 Specialty Diagnoses / Procedures Referred By Contac t Referred To Contact CT IMAGING Diagnoses Smoker Encounter for screening for malignant neoplasm of lung Procedures CT LUNG SCREEN WO IVCON COMPUTED TOMOGRAPHY THORAX LW DOSE LNG CA SCR Arcelia Shah, [place]ETL TESTER [address] [place] [id number] [facility] [place] [address] Referral ID Status Reason Start Date Expiration Date V isits Requested Visits Authorized [id number] Closed Auto-Generate d Referral 12/13/2023 02/11/2024 1 1 Reason Comments Follow Up ct scan Reason Comments Follow Up Reason Comments New Patient Specialty Diagnoses / Procedures Referred By Contac t Referred To Contact General Surgery Diagnoses Epigastric abdominal pain Nausea Procedures CONSULT TO GENERAL SURGERY OFFICE/OUTPATIENT NEW HIGH MDM 60 MINUTES Marianna Yap, [place]ET[employer] TESTER [address] [place] [address] Referral ID Status Reason Start Date Expiration Date V isits Requested Visits Authorized [id number] Closed PCP Requested Referral 01/08/2024 01/07/2025 1 1 Reason Comments PT Eval Specialty Diagnoses / Procedures Referred By Contac t Referred To Contact Physical Therapy / PHYSICAL THERAPY Diagnoses Chronic pain of left knee [M25.562, G89.29] Tear of medial meniscus of left knee, current, unspecified tear type, initial encounter [S83.242A] Procedures NEW RS PT ORTH MSK Smiley De La Paz, DO [address] [place] [address] Ruyb Kirkpatrick, PT [address] [place] [address] Referral ID Status Reason Start Date Expiration Date V isits Requested Visits Authorized [id number] Authorized 03/13/2023 03/12/2024 99 99 Reason Comments COPD Reason Comments Hospital F/U [facility] 08/25-08/28 Exacer bation of COPD Reason Comments Patient Update Reason Comments Medication Follow-up Reason Comments Spirometry Specialty Diagnoses / Procedures Referred By Contac t Referred To Contact [facility] Diagnoses Chronic obstructive pulmonary disease, unspecified COPD type (HCC) Procedures SPIROMETRY - BASELINE AND POST DILATOR BRNCDILAT RSPSE SPMTRY PRE&POST-BRNCDILAT ADMN Kadie Hampton MD [address] [facility] [address] [place] [address] Phone: tel: fax: [facility] [address] [place] [address] Referral ID Status Reason Start Date Expiration Date V isits Requested Visits Authorized [id number] Closed Auto-Generated Referral Financial Clearance Required - [employer] 10/17/2024 03/12/2025 1 1 Specialty Diagnoses / Procedures Referred By Contac t Referred To Contact [facility] Diagnoses Chronic obstructive pulmonary disease, unspecified COPD type (HCC) Procedures LUNG VOLUMES PLETHYSMOGRAPHY LUNG VOLUMES W/WO AIRWAY RESIST Kadie Hampton MD [address] [facility] [address] [place] [address] Phone: tel: fax: [facility] [address] [place] [phone] Referral ID Status Reason Start Date Expiration Date V isits Requested Visits Authorized [id number] Closed Auto-Generate d Referral 10/17/2024 03/12/2025 1 1 Specialty Diagnoses / Procedures Referred By Contac t Referred To [facility] Diagnoses Chronic obstructive pulmonary disease, unspecified COPD type (HCC) Procedures LUNG DIFFUSION CAPACITY (DLCO) DIFFUSING CAPACITY Kadie Hampton MD [address] [facility] [address] [place] [address] Phone: tel: fax: [facility] [address] [place] [address] Referral ID Status Reason Start Date Expiration Date V isits Requested Visits Authorized [id number] Closed Auto-Generated Referral Financial Clearance Required - [employer] 08/29/2024 09/28/2025 1 1 Specialty Diagnoses / Procedures Referred By Contac t Referred To [facility] Diagnoses Chronic obstructive pulmonary disease, unspecified COPD type (HCC) Procedures NITRIC OXIDE, EXHALED NITRIC OXIDE GAS DETERMINATION Kadie Hampton MD [address] [facility] [address] [place] [address] Phone: tel: fax: [facility] [address] [place] [address] Referral ID Status Reason Start Date Expiration Date V isits Requested Visits Authorized [id number] Closed Auto-Generated Referral Financial Clearance Required - [employer] 10/17/2024 03/12/2025 1 1 Specialty Diagnoses / Procedures Referred By Contac t Referred To [facility] Diagnoses Asthma with COPD with exacerbation (HCC) Procedures OXIMETRY WITH AMBULATION NONINVASIVE EAR/PULSE OXIMETRY MULTIPLE DETER Kadie Hampton MD [address] [facility] [address] [place] [address] Phone: tel: fax: [facility] [address] [place] [phone] Referral ID Status Reason Start Date Expiration Date V isits Requested Visits Authorized [id number] Closed Auto-Generated Referral Financial Clearance Required - [employer] 10/17/2024 03/12/2025 1 1 Reason Comments Asthma COPD Care Teams (unrecognized sec tion and content) [...] Provider Active Sta rt: August 27, 2024 Accounting Professor Relationship Specialty Start Date End Date Leonid Rice MD [address] [place] [address] PCP - General Internal Medicine 10/09/18 [place], [facility] [address] [place] [address] Pharmacist Pharmacy 10/22/20 Accounting Professor Relationship Specialty Start Date End Date Leonid Rice MD [address] [place] [address] PCP - General Internal Medicine 10/09/18 [place], [facility] [address] [place] [address] Pharmacist Pharmacy 10/22/20 Accounting Professor Relationship Specialty Start Date End Date Leonid Rice MD [address] [place] [address] PCP - General Internal Medicine 10/09/18 [place] Erica, [facility] [address] [place] [address] Pharmacist Pharmacy 10/22/20 Accounting Professor Relationship Specialty Start Date End Date Leonid Rice MD [address] [place] [address] PCP - General Internal Medicine 10/09/18 [place], [facility] [address] [place] [address] Pharmacist Pharmacy 10/22/20 Accounting Professor Relationship Specialty Start Date End Date Leonid Rice MD [address] [place] [address] PCP - General Internal Medicine 10/09/18 [place], [facility] [address] [place] [address] Pharmacist Pharmacy 10/22/20 Accounting Professor Relationship Specialty Start Date End Date Leonid Rice MD [address] [place] [address] PCP - General Internal Medicine 10/09/18 [place] Erica, [facility] [address] [place] [address] Pharmacist Pharmacy 10/22/20 Accounting Professor Relationship Specialty Start Date End Date Leonid Rice MD [address] [place] [address] PCP - General Internal Medicine 10/09/18 [place], [facility] [address] [place] [address] Pharmacist Pharmacy 10/22/20 Accounting Professor Relationship Specialty Start Date End Date Leonid Rice MD [address] [place] [address] PCP - General Internal Medicine 10/09/18 [place], [facility] [address] [place] [address] Pharmacist Pharmacy 10/22/20 Accounting Professor Relationship Specialty Start Date End Date Leonid Rice MD [address] [place] [address] PCP - General Internal Medicine 10/09/18 [place], [facility] [address] [place] [address] Pharmacist Pharmacy 10/22/20 Accounting Professor Relationship Specialty Start Date End Date Leonid Rice MD [address] [place] [address] PCP - General Internal Medicine 10/09/18 [place], [facility] [address] [place] [address] Pharmacist Pharmacy 10/22/20 Accounting Professor Relationship Specialty Start Date End Date Leonid Rice MD [address] [place] [address] PCP - General Internal Medicine 10/09/18 Jules, Erica, [facility] [address] [facility] [address] Pharmacist Pharmacy 10/22/20 Accounting Professor Relationship Specialty Start Date End Date Leonid Rice MD [address] [place] [address] PCP - General Internal Medicine 10/09/18 Erica Vicente, [facility] [address] [place] [address] Pharmacist Pharmacy 10/22/20 Accounting Professor Relationship Specialty Start Date End Date Leonid Rice MD [address] [place] [address] PCP - General Internal Medicine 10/09/18 [place], [facility] [address] [place] [address] Pharmacist Pharmacy 10/22/20 Accounting Professor Relationship Specialty Start Date End Date Leonid Rice MD [address] [place] [address] PCP - General Internal Medicine 10/09/18 Erica Vicente, [facility] [address] [place] [address] Pharmacist Pharmacy 10/22/20 Accounting Professor Relationship Specialty Start Date End Date Leonid Rice MD [address] [place] [address] PCP - General Internal Medicine 10/09/18 [place], [facility] [address] [place] [address] Pharmacist Pharmacy 10/22/20 Accounting Professor Relationship Specialty Start Date End Date Leonid Rice MD [address] [place] [address] PCP - General Internal Medicine 10/09/18 [place] Erica, [facility] [address] [place] [address] Pharmacist Pharmacy 10/22/20 Accounting Professor Relationship Specialty Start Date End Date Leonid Rice MD [address] [place] [address] PCP - General Internal Medicine 10/09/18 [place], [facility] [address] [place] [address] Pharmacist Pharmacy 10/22/20 Accounting Professor Relationship Specialty Start Date End Date Leonid Rice MD [address] [place] [address] PCP - General Internal Medicine 10/09/18 [place] Erica, [facility] [address] [place] [address] Pharmacist Pharmacy 10/22/20 Accounting Professor Relationship Specialty Start Date End Date Leonid Rice MD [address] [place] [address] PCP - General Internal Medicine 10/09/18 [place] Erica, [facility] [address] [place] [address] Pharmacist Pharmacy 10/22/20 Accounting Professor Relationship Specialty Start Date End Date Leonid Rice MD [address] [place] [address] PCP - General Internal Medicine 10/09/18 [place], [facility] [address] [place] [address] Pharmacist Pharmacy 10/22/20 Accounting Professor Relationship Specialty Start Date End Date Leonid Rice MD [address] [place] [address] PCP - General Internal Medicine 10/09/18 [place], [facility] [address] [place] [address] Pharmacist Pharmacy 10/22/20 Accounting Professor Relationship Specialty Start Date End Date Leonid Rice MD [address] [place] [address] PCP - General Internal Medicine 10/09/18 [place], [facility] [address] [place] [address] Pharmacist Pharmacy 10/22/20 Accounting Professor Relationship Specialty Start Date End Date Leonid Rice MD [address] [place] [address] PCP - General Internal Medicine 10/09/18 [place], [facility] [address] [place] [address] Pharmacist Pharmacy 10/22/20 Team Status: Active Member Role Status Dates Dr. Micki Seth MD Family Provider Active Dr. Leonid Rice MD Primary Care Provider Active Team Status: Inactive Member Role Status Dates Dr. Leonid Rice MD Primary Care Provider Active Dr. Ronak Marte DO Emergency Provider Active Accounting Professor Relationship Specialty Start Date End Date Leonid Rice MD [address] [place] [address] PCP - General Internal Medicine 10/09/18 Jules Erica, [facility] [address] [place] [address] Pharmacist Pharmacy 10/22/20 Accounting Professor Relationship Specialty Start Date End Date Leonid Rice MD [address] [place] [address] PCP - General Internal Medicine 10/09/18 [place] Erica, [facility] [address] [facility] [address] Pharmacist Pharmacy 10/22/20 Accounting Professor Relationship Specialty Start Date End Date Leonid Rice MD [address] [place] [address] PCP - General Internal Medicine 10/09/18 [place] Erica, [facility] [address] [place] [address] Pharmacist Pharmacy 10/22/20 Accounting Professor Relationship Specialty Start Date End Date Leonid Rice MD [address] [place] [address] PCP - General Internal Medicine 10/09/18 [place] Erica, [facility] [address] [place] [address] Pharmacist Pharmacy 10/22/20 Accounting Professor Relationship Specialty Start Date End Date Leonid Rice MD [address] [place] [address] PCP - General Internal Medicine 10/09/18 [place] Erica, [facility] [address] [place] [address] Pharmacist Pharmacy 10/22/20 Accounting Professor Relationship Specialty Start Date End Date Leonid Rice MD [address] [place] [address] PCP - General Internal Medicine 10/09/18 Erica Vicente, [facility] [address] [place] [address] Pharmacist Pharmacy 10/22/20 Accounting Professor Relationship Specialty Start Date End Date Leonid Rice MD [address] [place] [address] PCP - General Internal Medicine 10/09/18 JulesErica roque, [facility] [address] [place] [address] Pharmacist Pharmacy 10/22/20 Accounting Professor Relationship Specialty Start Date End Date Leonid Rice MD [address] [place] [address] PCP - General Internal Medicine 10/09/18 Erica Vicente, [facility] [address] [place] [address] Pharmacist Pharmacy 10/22/20 Accounting Professor Relationship Specialty Start Date End Date Leonid Rice MD [address] [place] [address] PCP - General Internal Medicine 10/09/18 Erica Vicente, [facility] [address] [place] [address] Pharmacist Pharmacy 10/22/20 Accounting Professor Relationship Specialty Start Date End Date Leonid Rice MD [address] [place] [address] PCP - General Internal Medicine 10/09/18 Jules, Erica, [facility] [address] [place] [address] Pharmacist Pharmacy 10/22/20 Accounting Professor Relationship Specialty Start Date End Date Leonid Rice MD [address] [place] [address] PCP - General Internal Medicine 10/09/18 [place], [facility] [address] [place] [address] Pharmacist Pharmacy 10/22/20 Accounting Professor Relationship Specialty Start Date End Date Leonid Rice MD [address] [place] [address] PCP - General Internal Medicine 10/09/18 [place], [facility] [address] [place] [address] Pharmacist Pharmacy 10/22/20 Accounting Professor Relationship Specialty Start Date End Date Leonid Rice MD [address] [place] [address] PCP - General Internal Medicine 10/09/18 [place], [facility] [address] [place] [address] Pharmacist Pharmacy 10/22/20 Accounting Professor Relationship Specialty Start Date End Date Leonid Rice MD [address] [place] [address] PCP - General Internal Medicine 10/09/18 [place], [facility] [address] [place] [address] Pharmacist Pharmacy 10/22/20 Accounting Professor Relationship Specialty Start Date End Date Leonid Rice MD [address] [place] [address] PCP - General Internal Medicine 10/09/18 [place], [facility] [address] [place] [address] Pharmacist Pharmacy 10/22/20 Accounting Professor Relationship Specialty Start Date End Date Leonid Rice MD [address] [place] [address] PCP - General Internal Medicine 10/09/18 [place], [facility] [address] [place] [address] Pharmacist Pharmacy 10/22/20 Accounting Professor Relationship Specialty Start Date End Date Leonid Rice MD [address] [place] [address] PCP - General Internal Medicine 10/09/18 Erica Vicente, [facility] [address] [place] [address] Pharmacist Pharmacy 10/22/20 Accounting Professor Relationship Specialty Start Date End Date Leonid Rice MD [address] [place] [address] PCP - General Internal Medicine 10/09/18 [place], [facility] [address] [place] [address] Pharmacist Pharmacy 10/22/20 Accounting Professor Relationship Specialty Start Date End Date Leonid Rice MD [address] [place] [address] PCP - General Internal Medicine 10/09/18 JulesErica roque, [facility] [address] [place] [address] Pharmacist Pharmacy 10/22/20 Accounting Professor Relationship Specialty Start Date End Date Leonid Rice MD [address] [place] [address] PCP - General Internal Medicine 10/09/18 Erica Vicente, [facility] [address] [place] [address] Pharmacist Pharmacy 10/22/20 Accounting Professor Relationship Specialty Start Date End Date Leonid Rice MD [address] [place] [address] PCP - General Internal Medicine 10/09/18 [place], [facility] [address] [place] [address] Pharmacist Pharmacy 10/22/20 Accounting Professor Relationship Specialty Start Date End Date Leonid Rice MD [address] [place] [address] PCP - General Internal Medicine 10/09/18 [place], [facility] [address] [place] [address] Pharmacist Pharmacy 10/22/20 Accounting Professor Relationship Specialty Start Date End Date Leonid Rice MD [address] [place] [address] PCP - General Internal Medicine 10/09/18 Erica Vicente, [facility] [address] [place] [address] Pharmacist Pharmacy 10/22/20 Accounting Professor Relationship Specialty Start Date End Date Leonid Rice MD [address] [place], [place] [address] PCP - General Internal Medicine 10/09/18 Erica Vicente, [facility] [address] [place] [address] Pharmacist Pharmacy 10/22/20 Team Status: Active Member [...] Start : August 25, 2024 Team Status: Active Member Role Status Dates Dr. Leonid Rice MD Primary Care Provider Active Start: August 28, 2024 Dr. Zachery Jesus DO Emergency Provider Active Start: August 28, 2024 Dr. Modesta Caro DO Admit Provider Active Start : August 28, 2024 Dr. Modesta Caro DO Other Provider Active Start : August 28, 2024 Dr. Alcon Cr MD Attending Provider Active Start: August 28, 2024 Dr. Alcon Cr MD Other Provider Active Sta rt: August 28, 2024 Team Status: Inactive Member Role Status Dates Dr. Leonid Rice MD Primary Care Provider Active Start: August 29, 2024 End: August 29, 2024 Dr. Lauri Fisher DO Emergency Provider Active Start: August 29, 2024 End: August 29, 2024 Accounting Professor Relationship Specialty Start Date End Date Leonid Rice MD [address] [place] [address] PCP - General Internal Medicine 10/09/18 [facility] [address] [place] [address] Pharmacist Pharmacy 10/22/20 Marianna Yap, [employer] [address] [place] [address] [employer]vest Contractor Internal Medicine 02/19/24 Accounting Professor Relationship Specialty Start Date End Date Leonid Rice MD [address] [place] [address] PCP - General Internal Medicine 10/09/18 [facility] [address] [place] [address] Pharmacist Pharmacy 10/22/20 Marianna Yap, [employer] [address] [place] [address] Field Crop Harvest Contractor Internal Medicine 02/19/24 Accounting Professor Relationship Specialty Start Date End Date Leonid Rice MD [address] [place] [address] PCP - General Internal Medicine 10/09/18 [facility] [address] [place] [address] Pharmacist Pharmacy 10/22/20 aMrianna Yap, [employer] [address] [place] [address] Field Crop Harvest Contractor Internal Medicine 02/19/24 Accounting Professor Relationship Specialty Start Date End Date Leonid Rice MD [address] [place] [address] PCP - General Internal Medicine 10/09/18 [place] [facility] [address] [place] [address] Pharmacist Pharmacy 10/22/20 Marianna Yap, [employer] [address] [place] [address] Field Crop Harvest Contractor Internal Medicine 02/19/24 Accounting Professor Relationship Specialty Start Date End Date Leonid Rice MD [address] [place] [address] PCP - General Internal Medicine 10/09/18 [facility] [address] [place] [address] Pharmacist Pharmacy 10/22/20 Marianna Yap, [employer] [address] [place] [address] Field Crop Harvest Contractor Internal Medicine 02/19/24 Accounting Professor Relationship Specialty Start Date End Date Leonid Rice MD [address] [place] [address] PCP - General Internal Medicine 10/09/18 [place] [facility] [address] [place] [address] Pharmacist Pharmacy 10/22/20 Marianna Yap, [employer] [address] [place] [address] Field Crop Harvest Contractor Internal Medicine 02/19/24 Goals (unrecognized section and content) Goals may [...] BE BASED ON THE PRIMARY CLINICAL RECORDS. [facility] provides no warranty or guarantee of the accuracy or completeness of information in this document.
[2024-11-23 11:16] LABS: Anion Gap 12 (5-15); BUN 9 mg/dL (4-19); BUN/Creat Ratio 10.0 RATIO (10-20); Calcium,Total 9.3 mg/dL (7.6-11.0); Carbon Dioxide 23.3 mmol/L (21.0-32.0); Chloride 106 mmol/L (98-108); Estimated Creatinine Clearance 65.09 ml/min (50-250); Glucose 205 mg/dL (70-99); Potassium 3.8 mmol/L (3.3-5.1)
[2024-11-23 12:13] LABS: Mucous, Urine 0 SEEN /hpf (<or=2+); Red Blood Cells-Urine 0 SEEN /hpf (0-5); Squamous Epithelial Cells - UA 0 SEEN /hpf (5-10)
[2024-11-23 12:14] LABS: Color, Urine Yellow (Yellow); Glucose, Dipstick Normal (Normal); Ketone-Dipstick Negative (Negative); Leukocyte Esterase-Dipstick Negative /ul (Negative); Nitrite-Dipstick Negative (Negative); Occult Blood-Urine 10 /ul (Negative); Protein-Dipstick 30 mg/dl (Negative); Specific Gravity, Urine 1.010 (1.002-1.030); Urine Bilirubin Dipstick Negative (Negative)
[2024-11-23 12:49] VITALS: BP 141/78; PULSE 60; RESP 18; O2SAT 98
[2024-11-23 12:50] VITALS: BP 141/78; PULSE 60; RESP 18; TEMP 36.7; O2SAT 98
== END 2024-11-23 12:58 | disposition home or self-care (01) ==
PROVIDERS: Emergency Provider Emergency Medicine; PCP Internal Medicine; Visit Provider Emergency Medicine
DX: S39.012A Strain of muscle, fascia and tendon of lower back, initial encounter (principal); F17.210 Nicotine dependence, cigarettes, uncomplicated; R10.9 Unspecified abdominal pain; G47.33 Obstructive sleep apnea (adult) (pediatric); X58.XXXA Exposure to other specified factors, initial encounter
CPT/HCPCS: 74177; 80048; 81001; 85025; 96374; 99284; Q9967; A4216